=== PATIENT | female | born 1945 | race Caucasian/White ===

== ENCOUNTER → 2016-10-28 | Outpatient (CLI) | payer MEDICARE ==
[~2016-10-28] MED LIST: AMLO-110 PO; ASPCH81 PO; ASTN; ATEN-173 PO; ATOR-26 PO; CRAN1CAP15 PO; DOCU100T7 PO; HYDC25 PO; LANS30CA12 PO; LEVA1.25 INH; MELO7.5T5 PO; MOME100A INH; MULTCAP42 PO; NYST100098 TOP; NYSTCRE11 TOP; OXGN; PENT400T PO; TRAM-10 PO; TRIA1SPR2 NAE
[2016-10-28 13:10] VITALS: BP_SYST 185; BP_SYST 195; BP_DIAS 66; PULSE 88; TEMP 36.6; O2SAT 98
--- NOTE | 2016-10-28 16:50 | Radiation Oncology Follow-Up ---
Radiation Oncology Follow-Up Date of Visit Oct 28, 2016. 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 Plan for definitive radiation with external beam therapy [place] followed by intracavitary boost at [facility] Status post completion of external beam radiation 07/05/2014 received 4500 cGy Status post completion of intracavitary boost at [facility] Last Edited By: Lois Samayoa on Oct 28, 2016 16:50 Interim History She's been doing well over the past 6 months. She denies any vaginal discharge or bleeding. She is not developed any abdominal pain or discomfort. She's had no change in urination or bowel habits. At our request she did see Dr. Aguirre and begin gynecologic follow-up. In [place]. She was seen 06/25. Examination revealed no lesions or recurrence. She had a Pap smear that was negative for intraepithelial lesions or malignancy. Specimen [id number]. Allergies Coded Allergies: Doxycycline (Verified Allergy, Intermediate, SWELLING, 11/10/15) Codeine (Verified Allergy, Mild, PER PATIENT "MADE HER MARY ANNE CRAZY" WHEN SHE TOOK ALOT, 11/10/15) Sulfa Drugs (Verified Allergy, Mild, 11/10/15) Tetracycline (Verified Allergy, Mild, SWELLING TO EYES, 11/10/15) NARINDER Inhibitors (Unverified Adverse Reaction, Intermediate, cough, 11/10/15) Home Medications Scheduled Amlodipine (Norvasc), 5 MG PO QAM Aspirin (Aspirin Tab-Chewable *), 81 MG PO QPM Atenolol (Tenormin), 25 MG PO DAILY Atorvastatin (Lipitor), 80 MG PO DAILY Azelastine Hcl (Astelin Nasal Petal), 1-2 SPRAYS NA BID Cranberry-Vitamin C-Vitamin E (Cranberry), 1 CAP PO DAILY Docusate Sodium (Stool Softener), 100 MG PO DAILY Hydrochlorothiazide (Hctz *), 25 MG PO QAM Lansoprazole (Prevacid), 30 MG PO BID Multiple Vitamin (Multivitamins), 1 CAP PO DAILY Oxygen (Oxygen), 2 LITERS NA HS Pentoxifylline (Trental), 400 MG PO TID Scheduled PRN Levalbuterol Soln (Xopenex 1.25MG/3ML), 1.25 MG INH QID PRN for SOB/Wheezing Meloxicam (Mobic), 15 MG PO DAILY PRN for Pain Mometasone Furoate-Formoterol (Dulera 100/5 Mcg), 2 PUFFS INH BID PRN for SOB/ Wheezing Nystatin (Mycostatin), 1 APPLN TOP BID PRN for Affected Skin Folds Nystatin/Triamcinolone (Mycogen || ), 1 APPLN TOP TID PRN for Affected Skin Folds Tramadol (Ultram), 50 MG PO Q6H PRN for Pain Triamcinolone Acetonide (Nasal (Nasacort-Aq Nasal Inh), 2 SPRAYS FARSHAD BID PRN for Nasal Congestion Review of Systems Gastrointestinal: Symptoms: WNL GI Comments: IBS so BM consistency varies every day- no change since having RT Oral: Symptoms: No Problems Respiratory: Symptoms: SOB With Exertion Other Respiratory: Pt with known asthma and certain things can trigger cough ; Urinary: Symptoms: Nocturia Comments: Sometimes abld to go longer than 2hrs betw'n voids;3-4 voids/night ; Skin: Symptoms: No Problems Physical Exam Vital Signs Date Time Temp Pulse Resp B/P Pulse Ox O2 Delivery O2 Flow Rate FiO2 10/28/16 13:10 36.6 88 20 195/66 98 185/66 Fatigue: None General Appearance: no apparent distress, + obese Eyes: normal inspection, EOMI ENT: normal ENT inspection, hearing grossly normal Neck: no adenopathy, thyroid normal Respiratory/Chest: lungs clear, no respiratory distress, no accessory muscle use Cardiovascular: regular rate, rhythm, no gallop, no murmur Abdomen: non tender, soft, no organomegaly Genitourinary - Female: Normal external genitalia. Vaginal examination reveals no masses or lesions. There is no vaginal discharge. No vaginal bleeding. Bimanual examination cannot be performed due to the large body habitus and panniculus. There are no palpable lesions on vaginal examination. Extremities: + pedal edema Neurologic/Psychiatric: no motor/sensory deficits, alert, normal mood/affect Skin: warm/dry Lymphatic: no adenopathy Additional Studies Pap smear performed on 06/25/2016 was negative for intraepithelial lesion or malignancy. Assessment & Plan Plan: Continue regular follow-up with Dr. Aguirre she has a follow-up appointment with him in January. We asked her to return to our office in 1 year. She may call if she has any questions or concerns we'll be happy to see her. Total Time In Follow-Up I spent 20 minutes speaking to the patient performing examination. I spent 15 minutes reviewing information in completing this note. Copy To Roby Aguirre M.D.; Pavan Mckeon M.D.
== END | disposition home or self-care (01) ==
LOC: C.ONC 13:03
PROVIDERS: ATTEND Radiology Radiation Oncology
DX: Z08 Encounter for follow-up examination after completed treatment for malignant neoplasm (principal); Z92.3 Personal history of irradiation; Z85.42 Personal history of malignant neoplasm of other parts of uterus

== ENCOUNTER 2017-12-16 15:18 | Inpatient (IN) | payer MEDICARE, OTHER ==
[~2017-12-16] VITALS: Ht 160 cm; Wt 152.4 kg
[~2017-12-16 15:18] MED LIST changes: -ASTN; +ASTN NAE; -ATOR-26 PO; -MOME100A INH; -OXGN
[2017-12-16] MEDS ORDERED: OXGN (15:34)
[2017-12-16] MEDS ORDERED: ALBUT/IPRATROP 3MG/0.5MG NEB 3 ML VIAL INH STA (15:36)
[2017-12-16] MEDS ORDERED: ALBUTEROL 0.5% NEB SOLN 2.5 MG/0.5 ML VIAL INH STA (15:40)
[2017-12-16] MEDS ORDERED: SODIUM CHLORIDE 0.9% 500ML 500 ML IV STA (15:40)
[2017-12-16 16:04] LABS: BASO % 0.2 %; BASO ABS # 0.02 K/uL (0-0.2); EOS % 0.2 %; EOS ABS # 0.02 K/uL (0-0.5); HEMATOCRIT 40.6 % (37-47); HEMOGLOBIN 12.9 g/dL (12.0-16.0); IG# 0.05 K/uL (0.00-0.02); LYMPH % 13.7 %; LYMPH ABS # 1.74 K/uL (1.2-3.4); MEAN CELL VOLUME 87.7 fL (80-100); MEAN CORPUSCULAR HEMOGLOBIN 27.9 pg (25-34); MEAN CORPUSCULAR HGB CONC 31.8 g/dl (32-36); MEAN PLATELET VOLUME 9.3 fL (7.4-10.4); MONO ABS # 1.02 K/uL (0.11-0.59); NEUT % 77.5 %; NEUT ABS # 9.86 K/uL (1.4-6.5); PLATELET COUNT 306 K/uL (130-400); RED CELL DISTRIBUTION WIDTH CV 15.6 % (11.5-14.5); WHITE BLOOD COUNT 12.71 K/uL (4.8-10.8)
[2017-12-16 16:14] LABS: PTT PATIENT 24.4 SECONDS (21.0-31.0)
--- NOTE | 2017-12-16 16:22 | DIAGNOSTIC IMAGING REPORT ---
CHEST ONE VIEW PORTABLE CLINICAL HISTORY: 72 years-old Female presenting with sob . TECHNIQUE: Portable upright AP view of the chest was obtained. COMPARISON: 04/05/2014. FINDINGS: Atherosclerosis of aortic arch. Cardiac silhouette enlarged. Mild pulmonary vascular prominence. Mildly low lung volumes with hypoventilatory changes. No focal opacity. No large effusion or pneumothorax. Deformity of the right humeral neck ingested. IMPRESSION: 1. Cardiomegaly with possible volume overload. No loraine pulmonary edema. 2. Mildly low lung volumes. 3. Deformity of the left humerus likely indicates fracture, which is chronic. Electronically signed by: Tomer Man M.D. 12/16/2017 4:21 PM Dictated Date/Time: 12/16/2017 4:20 PM
[2017-12-16 16:35] LABS: ALBUMIN 3.3 gm/dl (3.4-5.0); ALT/SGPT 23 U/L (12-78); AST/SGOT 14 U/L (15-37); BLOOD UREA NITROGEN 19 mg/dl (7-18); CALCIUM 9.8 mg/dl (8.5-10.1); CARBON DIOXIDE 32 mmol/L (21-32); CREATININE 0.82 mg/dl (0.60-1.20); GLUCOSE 141 mg/dl (70-99); POTASSIUM 3.3 mmol/L (3.5-5.1); SODIUM 137 mmol/L (136-145)
[2017-12-16] MEDS ORDERED: TRN400 PO (16:39)
[2017-12-16] MEDS ORDERED: LANS30CA63 PO (16:39)
[2017-12-16] MEDS ORDERED: HYDR25TA5 PO (16:39)
[2017-12-16] MEDS ORDERED: NRV/5 PO (16:39)
[2017-12-16] MEDS ORDERED: LEVO1TAB33 PO (16:39)
[2017-12-16] MEDS ORDERED: PRED10TA PO (16:39)
[2017-12-16] MEDS ORDERED: CZR25 PO (16:39)
[2017-12-16] MEDS ORDERED: ASPI81TA28 PO (16:39)
[2017-12-16 16:40] LABS: ALKALINE PHOSPHATASE 137 U/L (45-117); TOTAL PROTEIN 7.2 gm/dl (6.4-8.2)
[2017-12-16] MEDS ORDERED: MULTTAB58 PO (16:41)
[2017-12-16] MEDS ORDERED: CRAN500C2 PO (16:41)
[2017-12-16] MEDS ORDERED: XPNINS NEB (16:57)
[2017-12-16] MEDS ORDERED: TRIA1SPR4 NAE (16:57)
[2017-12-16] MEDS ORDERED: NYST100033 TOP (16:57)
[2017-12-16] MEDS ORDERED: ALBUTEROL 0.083% NEBU SOLN 3 ML VIAL INH STA (17:28)
[2017-12-16] MEDS ORDERED: MAGNESIUM HYDROXIDE SUSP 30 ML UDC PO PRN (18:15)
[2017-12-16] MEDS ORDERED: NYSTATIN/TRIAMCINOLONE CR 15 GM TUBE EXT PRN (18:15)
[2017-12-16] MEDS ORDERED: ONDANSETRON INJ 2 MG/ML 2 ML VIAL IV PRN (18:15)
[2017-12-16] MEDS ORDERED: TRIAMCINOLONE ACET NASAL SPRAY 10.8ML BTL NAE PRN (18:15)
[2017-12-16] MEDS ORDERED: ALUMINUM/MAGNESIUM/SIMETH (MAALOX MAX) 30 ML UDC PO PRN (18:15)
[2017-12-16] MEDS ORDERED: ACETAMINOPHEN 325 MG TAB PO PRN (18:15)
[2017-12-16] MEDS ORDERED: NYSTATIN POWDER 15GM BTL EXT PRN (18:15)
[2017-12-16] MEDS ORDERED: GLUCOSE 40% GEL 15 GM TUBE PO PRN (18:30)
[2017-12-16] MEDS ORDERED: DEXTROSE 50% 50 ML SYR IV PRN (18:30)
[2017-12-16] MEDS ORDERED: GLUCAGON FOR INJ 1 MG VIAL SQ PRN (18:30)
[2017-12-16] MEDS ORDERED: GLUCOSE 10 TABS/TUBE PO PRN (18:30)
--- NOTE | 2017-12-16 18:52 | DIAGNOSTIC IMAGING REPORT ---
ABDOMEN 2 VIEWS CLINICAL HISTORY: 72 years-old Female presenting with abd pain . TECHNIQUE: Upright and supine views of the abdomen were obtained. COMPARISON: None. FINDINGS: Image quality limited by patient body habitus. Possibly of small bowel gas, nonspecific no gross evidence of bowel obstruction. No gross pneumoperitoneum. Multiple radiopaque sutures project over the right upper quadrant. Possible punctate calcification projects over the lower pole the left kidney. 2 fiducial markers project over the pelvis. Multiple pelvic phleboliths. Osteopenia suspected. Degenerative changes and scoliosis of the spine. Lung bases poorly evaluated due to body habitus. IMPRESSION: 1. Diagnostic sensitivity is limited by image quality secondary to patient body habitus. 2. Allowing for this, no gross evidence of bowel obstruction or free gas. 3. Suspected left renal calculus. Electronically signed by: Tomer Man M.D. 12/16/2017 6:50 PM Dictated Date/Time: 12/16/2017 6:48 PM
[2017-12-16] MEDS ORDERED: RANITIDINE HCL 150 MG TAB PO ONE (19:00)
--- NOTE | 2017-12-16 19:07 | History and Physical ---
History & Physical Date & Time of Service: Dec 16, 2017 at 18:24 Chief Complaint: Bronchitis Primary Care Physician: Pavan Mckeon M.D. History of Present Illness Source: patient, family, clinic records, hospital records This is a 72 year old female with PMH of morbid obesity, on 2L of nocturnal O2, HTN, HLD, DM2; hx. of DVT and PE in 2010; no longer on anticoagulation, significant reflux, hx. of upper esophageal web and gastric polyps - presents with worsening productive cough/shortness of breath. Was seen in [facility] for this issue and was given a Z-ronna at the end of November. She was then seen again by the outpatient clinic on December 14 and was given Levaquin and prednisone; stated that her breathing did not improve and her cough worsened. Associated with the cough is nausea/vomiting. She states that she feels during her coughing fits, she gets nauseous. Also c/o her reflux getting worse. She cannot lay down flat because of her reflux and usually sleeps elevated with multiple pillows. She states that she regurgitated undigested food on Wednesday ; she believes it was food that she ate on Wednesday. Currently feels really weak, cough persists. Past Medical/Surgical History Medical Problems: (1) Bronchitis (2) Chest pain (3) Chronic GERD (4) Chronic Sinusitis Nos (5) Diverticulosis Colon (W/O Ment Of Hemorrhage) (6) Dysthymic Disorder (7) Esophageal Reflux (8) Fracture of humeral head, right, closed (9) GERD (gastroesophageal reflux disease) (10) Hypoxemia (11) Malignant neoplasm of other specified sites of body of uterus (12) Morbid Obesity (13) Non-cardiac chest pain (14) Obstructive Sleep Apnea (Adult) (Pediatric) (15) Oth Pulmon Embolism/Infarct (16) Pulmonary embolism (17) Vaginal bleeding (18) Vaginal bleeding (19) Vaginal bleeding Family History Hypertension Social History Smoking Status: Never Smoker Drug Use: none Marital Status: Occupational Status: unemployed Immunizations History of Influenza Vaccine: N/A Influenza Vaccine Date: May 14, 2010 History of Tetanus Vaccine?: Yes Tetanus Immunization Date: Apr 02, 2000 History of Pneumococcal: Yes Pneumococcal Date: Aug 08, 2002 History of Hepatitis B Vaccine: No Allergies Coded Allergies: Doxycycline (Verified Allergy, Intermediate, SWELLING, 12/16/17) Codeine (Verified Allergy, Mild, PER PATIENT "MADE HER MARY ANNE CRAZY" WHEN SHE TOOK ALOT, 12/16/17) Sulfa Drugs (Verified Allergy, Mild, 12/16/17) Tetracycline (Verified Allergy, Mild, SWELLING TO EYES, 12/16/17) NARINDER Inhibitors (Unverified Adverse Reaction, Intermediate, cough, 12/16/17) Home Medications Scheduled Amlodipine Besylate (Amlodipine Besylate), 5 MG PO DAILY Aspirin (Aspirin Ec), 81 MG PO QPM Atorvastatin (Lipitor), 80 MG PO DAILY Cranberry (Vaccinium Macrocarp (Cranberry), 1 CAP PO DAILY Docusate Sodium (Stool Softener), 100 MG PO DAILY Home O2 Therapy (Oxygen), 2 LITERS NA HS Hydrochlorothiazide (Hydrochlorothiazide), 25 MG PO DAILY Lansoprazole (Prevacid), 30 MG PO BID Levofloxacin (Levaquin), 500 MG PO DAILY Losartan Potassium (Losartan Potassium), 25 MG PO DAILY Multiple Vitamin (Multivitamin), 1 TAB PO DAILY Pentoxifylline (Pentoxifylline ER), 400 MG PO PC Prednisone (Prednisone), 10 MG PO UD Scheduled PRN Azelastine Hcl (Astelin Nasal [place]), 1-22 SPRAYS FARSHAD BID PRN for Nasal Congestion Levalbuterol (Levalbuterol HCl), 0.63 MG NEB Q8 PRN for Wheezing Mometasone Furoate-Formoterol (Dulera 100/5 Mcg), 2 PUFFS INH BID PRN for SOB/ Wheezing Nystatin (Topical) (Nystatin), 1 APPLN TOP BID PRN for Yeast Infection Nystatin/Triamcinolone (Mycogen || ), 1 APPLN TOP UD PRN for Yeast Infection Triamcinolone Acetonide (Nasal (Nasacort Allergy 24Hr), 2 SPRAYS FARSHAD BID PRN for Allergy Symptoms Review of Systems Constitutional: + weakness, + fatigue, No fever, No chills Eyes: No worsening of vision ENT: No hearing loss Respiratory: + cough, + sputum, + wheezing, + shortness of breath, + dyspnea on exertion, No dyspnea at rest, No hemoptysis Cardiovascular: No chest pain, No orthopnea, No edema, No palpitations Abdomen: + nausea, + vomiting, + problem reported (reflux-symptoms), No pain, No diarrhea, No constipation, No GI bleeding Musculoskeletal: No joint pain, No muscle pain Genitourinary - Female: No dysuria, No urinary frequency, No urinary urgency, No urinary incontinence, No urinary retention, No hematuria Neurologic: + weakness, No numbness/tingling, No vertigo, No balance problems Psychiatric: No depression symptoms, No anxiety, No insomnia Hematologic / Lymphatic: No abnormal bleeding/bruising Integumentary: No rash Allergic / Immunologic: No environmental allergies, No seasonal allergies Physical Exam Vital Signs Date Time Temp Pulse Resp B/P (MAP) Pulse Ox O2 Delivery O2 Flow Rate FiO2 12/16/17 18:20 107 16 135/77 94 Nasal Cannula 2.0 12/16/17 17:54 88 Room Air 12/16/17 17:30 24 89 Room Air 12/16/17 16:55 117 12/16/17 16:36 106 20 139/59 97 Nasal Cannula 2.0 12/16/17 16:36 96 Nasal Cannula 2.0 12/16/17 16:20 89 Room Air 12/16/17 15:53 Room Air 12/16/17 15:47 Room Air 12/16/17 15:23 36.8 112 22 123/62 91 Room Air General Appearance: + mild distress (secondary to cough), + obese Head: normocephalic, atraumatic Eyes: normal inspection ENT: hearing grossly normal Respiratory/Chest: no respiratory distress, no accessory muscle use, + wheezing (sonorous breath sounds on expiration diffusely) Cardiovascular: no edema, no murmur, + tachycardia Abdomen/GI: normal bowel sounds, non tender, soft Extremities/Musculoskelatal: normal inspection, no calf tenderness, normal capillary refill, no pedal edema, normal range of motion Neurologic/Psych: [employer] member other ranks II-XII nml as tested, no motor/sensory deficits, alert, normal mood/affect, oriented x 3 Skin: normal color Lymphatic: no adenopathy Diagnostics Laboratory Results Results Past 24 Hours Test 12/16/17 15:50 Range/Units White Blood Count 12.71 4.8-10.8 K/uL Red Blood Count 4.63 4.2-5.4 M/uL Hemoglobin 12.9 12.0-16.0 g/dL Hematocrit 40.6 37-47 % Mean Corpuscular Volume 87.7 80-100 fL Mean Corpuscular Hemoglobin 27.9 25-34 pg Mean Corpuscular Hemoglobin Concent 31.8 32-36 g/dl Platelet Count 306 130-400 K/uL Mean Platelet Volume 9.3 7.4-10.4 fL Neutrophils (%) (Auto) 77.5 % Lymphocytes (%) (Auto) 13.7 % Monocytes (%) (Auto) 8.0 % Eosinophils (%) (Auto) 0.2 % Basophils (%) (Auto) 0.2 % Neutrophils # (Auto) 9.86 1.4-6.5 K/uL Lymphocytes # (Auto) 1.74 1.2-3.4 K/uL Monocytes # (Auto) 1.02 0.11-0.59 K/uL Eosinophils # (Auto) 0.02 0-0.5 K/uL Basophils # (Auto) 0.02 0-0.2 K/uL RDW Standard Deviation 50.0 36.4-46.3 fL RDW Coefficient of Variation 15.6 11.5-14.5 % Immature Granulocyte % (Auto) 0.4 % Immature Granulocyte # (Auto) 0.05 0.00-0.02 K/uL Prothrombin Time 10.7 9.0-12.0 SECONDS Prothromb Time International Ratio 1.0 0.9-1.1 Activated Partial Thromboplast Time 24.4 21.0-31.0 SECONDS Partial Thromboplastin Ratio 0.9 Sodium Level 137 136-145 mmol/L Potassium Level 3.3 3.5-5.1 mmol/L Chloride Level 98 98-107 mmol/L Carbon Dioxide Level 32 21-32 mmol/L Anion Gap 7.0 3-11 mmol/L Blood Urea Nitrogen 19 7-18 mg/dl Creatinine 0.82 0.60-1.20 mg/dl Est Creatinine Clear Calc Drug Dose 94.4 ml/min Estimated GFR () 83.4 Estimated GFR (Non- 72.0 BUN/Creatinine Ratio 22.9 10-20 Random Glucose 141 70-99 mg/dl Calcium Level 9.8 8.5-10.1 mg/dl Total Bilirubin 0.6 0.2-1 mg/dl Aspartate Amino Transf (AST/SGOT) 14 15-37 U/L Alanine Aminotransferase (ALT/SGPT) 23 12-78 U/L Alkaline Phosphatase 137 45-117 U/L Troponin I < 0.015 0-0.045 ng/ml Pro-B-Type Natriuretic Peptide 127 0-900 pg/ml Total Protein 7.2 6.4-8.2 gm/dl Albumin 3.3 3.4-5.0 gm/dl Globulin 3.9 2.5-4.0 gm/dl Albumin/Globulin Ratio 0.8 0.9-2 Diagnostic Radiology CHEST ONE VIEW PORTABLE CLINICAL HISTORY: 72 years-old Female presenting with sob . TECHNIQUE: Portable upright AP view of the chest was obtained. COMPARISON: 04/05/2014. FINDINGS: Atherosclerosis of aortic arch. Cardiac silhouette enlarged. Mild pulmonary vascular prominence. Mildly low lung volumes with hypoventilatory changes. No focal opacity. No large effusion or pneumothorax. Deformity of the right humeral neck ingested. IMPRESSION: 1. Cardiomegaly with possible volume overload. No loraine pulmonary edema. 2. Mildly low lung volumes. 3. Deformity of the left humerus likely indicates fracture, which is chronic. EKG Normal sinus rhythm Cannot rule out Anterior infarct Impression Assessment and Plan This is a 72 year old female with PMH of morbid obesity, on 2L of nocturnal O2, HTN, HLD, DM2; hx. of DVT and PE in 2010; no longer on anticoagulation, significant reflux, hx. of upper esophageal web and gastric polyps - presents with worsening productive cough/shortness of breath. Acute Complicated Bronchitis Acute Asthma Exacerbation - 2-3 week history of productive cough - CXR does not suggest pneumonia - patient has been on a Z-ronna with no help - has had one dose of Levaquin and prednisone - we can increase the prednisone to 50mg daily for now - will continue Levaquin - Xopenex nebulizers due to tachycardia - Dulera inhalers as outpatient - added Mucinex Post-Tussive Emesis Severe GERD - patient with significant reflux - will continue Prevacid 30mg BID (outpatient dose) - added Zantac 150mg BID - recliner chair ordered - has had an upper esophageal web; history suggests vomiting undigested food - may need outpatient EGD after bronchitis symptoms improve Hx. of DVT/PE - productive cough suggestive of bronchitis vs. pneumonia - if symptoms do not improve, consider CT chest to r/o PE DM2 - insulin sliding scale - Ha1c < 6.0%; due to prednisone use, will use the sliding scale and BSGs ACHS HTN - blood pressure stable - continue Cozaar, can continue HCTZ on discharge or inpatient if blood pressure goes up DVT ppx - subq heparin FULL CODE Resuscitation Status VTE Prophylaxis Will order VTE Prophylaxis: Yes
[2017-12-16 19:30] VITALS: BP 154/68; PULSE 80; TEMP 36.7; O2SAT 94; BMI 62.1
[2017-12-16] MEDS ORDERED: POTASSIUM CHLR 10 MEQ / WTR 10 MEQ in PREMIXED WATER 100 ML IV STA (19:42)
[2017-12-16 19:46] VITALS: BP 154/68; TEMP 36.7; O2SAT 92
[2017-12-16] MEDS: LEVALBUTEROL 0.63MG/3 ML NEB INH SCH (20:14)
[2017-12-16 20:16] VITALS: PULSE 102; O2SAT 97
[2017-12-16] MEDS ORDERED: MOME100A INH (20:21)
[2017-12-16] MEDS ORDERED: ATOR-26 PO (20:21)
[2017-12-16] MEDS: PANTOprazole SOD 40 MG TAB PO SCH (20:29)
[2017-12-16] MEDS: RANITIDINE HCL 150 MG TAB PO SCH (20:30)
[2017-12-16] MEDS: GUAIFENESIN 600 MG TABCR PO SCH (20:31)
[2017-12-16] MEDS: ASPIRIN 81 MG ECTAB PO SCH (20:32)
[2017-12-16] MEDS: INSULIN ASPART 100 UNITS/ML 3 ML PEN SC SCH (21:37)
[2017-12-16] MEDS: HEPARIN SOD 5000 UNIT/0.5 ML CARP SQ SCH (22:14)
[2017-12-16] MEDS: LEVOFLOXACIN / D5W 500 MG in PREMIXED IN D5W 100 ML IV SCH (22:14)
--- NOTE | 2017-12-16 22:18 | EMERGENCY ROOM VISIT NOTE ---
History Report prepared by Angel: Gerald Boateng Under the Supervision of: Dr. Servando Magaña D.O. First contact with patient: 15:27 Chief Complaint: RESPIRATORY PROBLEMS Stated Complaint: BRONCHITIS History of Present Illness The patient is a 72 year old female who presents to the Emergency Room with complaints of a persistent cough that started 3 weeks ago. She states that the cough is sometimes productive. The patient says that she has been to her doctor twice for this, and has been put on Levaquin, Prednisone, and an inhaler. She notes that she started having right-sided abdominal pain after a severe bout of coughing 3 nights ago. The patient states that the pain is brought on by bending , and other movement. She notes that she is having pain right now bending as she is sitting up on the side of the bed. The patient adds that she has had intermittent shortness of breath. She says that her last regular bowel movement was 4 days ago, and since then she has only had a little come out 2 days ago. The patient denies any fevers, chest pain, or pain or burning with urination. The patient notes a history of asthma only brought on by odors. She notes no history of COPD. Source of History: patient Onset: 3 weeks ago Position: other (global) Symptom Intensity: sometimes productive Quality: other (cough) Associated Symptoms: + SOB, + abdominal pain (right), No fevers, No chest pain, No urinary symptoms Note: Associated symptoms: No regular bowel movement for 4 days. Review of Systems See HPI for pertinent positives & negatives. A total of 10 systems reviewed and were otherwise negative. Past Medical & Surgical Medical Problems: (1) Bronchitis (2) Chronic GERD (3) Chronic Sinusitis Nos (4) Diverticulosis Colon (W/O Ment Of Hemorrhage) (5) Dysthymic Disorder (6) Esophageal Reflux (7) Malignant neoplasm of other specified sites of body of uterus (8) Morbid Obesity (9) Obstructive Sleep Apnea (Adult) (Pediatric) (10) Oth Pulmon Embolism/Infarct Family History Hypertension Social History Smoking Status: Never Smoker Alcohol Use: none Drug Use: none Marital Status: Housing Status: lives with family Occupation Status: unemployed Current/Historical Medications Scheduled Amlodipine Besylate (Amlodipine Besylate), 5 MG PO DAILY Aspirin (Aspirin Ec), 81 MG PO QPM Atorvastatin (Lipitor), 80 MG PO DAILY Cranberry (Vaccinium Macrocarp (Cranberry), 1 CAP PO DAILY Docusate Sodium (Stool Softener), 100 MG PO DAILY Home O2 Therapy (Oxygen), 2 LITERS NA HS Hydrochlorothiazide (Hydrochlorothiazide), 25 MG PO DAILY Lansoprazole (Prevacid), 30 MG PO BID Levofloxacin (Levaquin), 500 MG PO DAILY Losartan Potassium (Losartan Potassium), 25 MG PO DAILY Multiple Vitamin (Multivitamin), 1 TAB PO DAILY Pentoxifylline (Pentoxifylline ER), 400 MG PO PC Prednisone (Prednisone), 10 MG PO UD Scheduled PRN Azelastine Hcl (Astelin Nasal [place]), 1-22 SPRAYS FARSHAD BID PRN for Nasal Congestion Levalbuterol (Levalbuterol HCl), 0.63 MG NEB Q8 PRN for Wheezing Mometasone Furoate-Formoterol (Dulera 100/5 Mcg), 2 PUFFS INH BID PRN for SOB/ Wheezing Nystatin (Topical) (Nystatin), 1 APPLN TOP BID PRN for Yeast Infection Nystatin/Triamcinolone (Mycogen || ), 1 APPLN TOP UD PRN for Yeast Infection Triamcinolone Acetonide (Nasal (Nasacort Allergy 24Hr), 2 SPRAYS FARSHAD BID PRN for Allergy Symptoms Allergies Coded Allergies: Doxycycline (Verified Allergy, Intermediate, SWELLING, 12/16/17) Codeine (Verified Allergy, Mild, PER PATIENT "MADE HER MARY ANNE CRAZY" WHEN SHE TOOK ALOT, 12/16/17) Sulfa Drugs (Verified Allergy, Mild, 12/16/17) Tetracycline (Verified Allergy, Mild, SWELLING TO EYES, 12/16/17) NARINDER Inhibitors (Unverified Adverse Reaction, Intermediate, cough, 12/16/17) Physical Exam Vital Signs Date Time Temp Pulse Resp B/P (MAP) Pulse Ox O2 Delivery O2 Flow Rate FiO2 12/16/17 17:54 88 Room Air 12/16/17 17:30 24 89 Room Air 12/16/17 16:55 117 12/16/17 16:36 106 20 139/59 97 Nasal Cannula 2.0 12/16/17 16:36 96 Nasal Cannula 2.0 12/16/17 16:20 89 Room Air 12/16/17 15:53 Room Air 4/5/18 15:47 Room Air 12/16/17 15:23 36.8 112 22 123/62 91 Room Air Physical Exam GENERAL: Morbidly obese, sitting up in bed, dyspneic with conversation EYE EXAM: normal conjunctiva. OROPHARYNX: no exudate, no erythema, lips, buccal mucosa, and tongue normal and mucous membranes are moist NECK: supple, no nuchal rigidity, no adenopathy, non-tender, no appreciable JVD LUNGS: Diffuse wheezing bilaterally. Normal chest wall mechanics. HEART: distant and tachycardic, no murmurs, S1 normal and S2 normal ABDOMEN: extensive pannus, non-tender, normo-active bowel sounds, no masses, no rebound or guarding. BACK: Back is symmetrical on inspection and there is no deformity, no midline tenderness, no CVA tenderness. SKIN: no rashes and no bruising UPPER EXTREMITIES: upper extremities are grossly normal. LOWER EXTREMITIES: No pitting edema. NEURO EXAM: Normal sensorium, cranial nerves II-XII grossly intact, normal speech, no gross weakness of arms, no gross weakness of legs. Medical Decision & Procedures ER Provider Diagnostic Interpretation: X-ray results as stated below per my review and the radiologist's interpretation : CHEST ONE VIEW PORTABLE CLINICAL HISTORY: 72 years-old Female presenting with sob . TECHNIQUE: Portable upright AP view of the chest was obtained. COMPARISON: 04/05/2014. FINDINGS: Atherosclerosis of aortic arch. Cardiac silhouette enlarged. Mild pulmonary vascular prominence. Mildly low lung volumes with hypoventilatory changes. No focal opacity. No large effusion or pneumothorax. Deformity of the right humeral neck ingested. IMPRESSION: 1. Cardiomegaly with possible volume overload. No loraine pulmonary edema. 2. Mildly low lung volumes. 3. Deformity of the left humerus likely indicates fracture, which is chronic. Electronically signed by: Tomer Man M.D. 12/16/2017 4:21 PM Dictated Date/Time: 12/16/2017 4:20 PM ABDOMEN 2 VIEWS CLINICAL HISTORY: 72 years-old Female presenting with abd pain . TECHNIQUE: Upright and supine views of the abdomen were obtained. COMPARISON: None. FINDINGS: Image quality limited by patient body habitus. Possibly of small bowel gas, nonspecific no gross evidence of bowel obstruction. No gross pneumoperitoneum. Multiple radiopaque sutures project over the right upper quadrant. Possible punctate calcification projects over the lower pole the left kidney. 2 fiducial markers project over the pelvis. Multiple pelvic phleboliths. Osteopenia suspected. Degenerative changes and scoliosis of the spine. Lung bases poorly evaluated due to body habitus. IMPRESSION: 1. Diagnostic sensitivity is limited by image quality secondary to patient body habitus. 2. Allowing for this, no gross evidence of bowel obstruction or free gas. 3. Suspected left renal calculus. Electronically signed by: Tomer Man M.D. 12/16/2017 6:50 PM Dictated Date/Time: 12/16/2017 6:48 PM Laboratory Results 12/16/17 15:50 Red Blood Count 4.63, Mean Corpuscular Volume 87.7, Mean Corpuscular Hemoglobin 27.9, Mean Corpuscular Hemoglobin Concent 31.8, Mean Platelet Volume 9.3, Neutrophils (%) (Auto) 77.5, Lymphocytes (%) (Auto) 13.7, Monocytes (%) (Auto) 8.0, Eosinophils (%) (Auto) 0.2, Basophils (%) (Auto) 0.2, Neutrophils # (Auto) 9.86, Lymphocytes # (Auto) 1.74, Monocytes # (Auto) 1.02, Eosinophils # (Auto) 0.02, Basophils # (Auto) 0.02 12/16/17 15:50 Test 12/16/17 15:50 White Blood Count 12.71 K/uL (4.8-10.8) Red Blood Count 4.63 M/uL (4.2-5.4) Hemoglobin 12.9 g/dL (12.0-16.0) Hematocrit 40.6 % (37-47) Mean Corpuscular Volume 87.7 fL (80-100) Mean Corpuscular Hemoglobin 27.9 pg (25-34) Mean Corpuscular Hemoglobin Concent 31.8 g/dl (32-36) Platelet Count 306 K/uL (130-400) Mean Platelet Volume 9.3 fL (7.4-10.4) Neutrophils (%) (Auto) 77.5 % Lymphocytes (%) (Auto) 13.7 % Monocytes (%) (Auto) 8.0 % Eosinophils (%) (Auto) 0.2 % Basophils (%) (Auto) 0.2 % Neutrophils # (Auto) 9.86 K/uL (1.4-6.5) Lymphocytes # (Auto) 1.74 K/uL (1.2-3.4) Monocytes # (Auto) 1.02 K/uL (0.11-0.59) Eosinophils # (Auto) 0.02 K/uL (0-0.5) Basophils # (Auto) 0.02 K/uL (0-0.2) RDW Standard Deviation 50.0 fL (36.4-46.3) RDW Coefficient of Variation 15.6 % (11.5-14.5) Immature Granulocyte % (Auto) 0.4 % Immature Granulocyte # (Auto) 0.05 K/uL (0.00-0.02) Prothrombin Time 10.7 SECONDS (9.0-12.0) Prothromb Time International Ratio 1.0 (0.9-1.1) Activated Partial Thromboplast Time 24.4 SECONDS (21.0-31.0) Partial Thromboplastin Ratio 0.9 Anion Gap 7.0 mmol/L (3-11) Est Creatinine Clear Calc Drug Dose 94.4 ml/min Estimated GFR () 83.4 Estimated GFR (Non- 72.0 BUN/Creatinine Ratio 22.9 (10-20) Calcium Level 9.8 mg/dl (8.5-10.1) Total Bilirubin 0.6 mg/dl (0.2-1) Aspartate Amino Transf (AST/SGOT) 14 U/L (15-37) Alanine Aminotransferase (ALT/SGPT) 23 U/L (12-78) Alkaline Phosphatase 137 U/L (45-117) Troponin I < 0.015 ng/ml (0-0.045) Pro-B-Type Natriuretic Peptide 127 pg/ml (0-900) Total Protein 7.2 gm/dl (6.4-8.2) Albumin 3.3 gm/dl (3.4-5.0) Globulin 3.9 gm/dl (2.5-4.0) Albumin/Globulin Ratio 0.8 (0.9-2) Laboratory results per my review. Medications Administered Medications (Trade) Dose Ordered Sig/Michelle Route Start Time Stop Time Status Last Admin Dose Admin Albuterol/ Ipratropium (Duoneb) 3 ml NOW STAT INH 12/16/17 15:36 12/16/17 15:39 DC 12/16/17 15:57 3 ML Sodium Chloride 500 ml @ 999 mls/hr Q31M STAT IV 12/16/17 15:40 12/16/17 16:10 DC 12/16/17 15:57 999 MLS/HR Albuterol Sulfate (Ventolin 0.083% 2.5MG/3ML Neb) 2.5 mg NOW STAT INH 12/16/17 17:28 12/16/17 17:30 DC 12/16/17 18:10 2.5 MG ECG Per My Interpretation Indication: SOB/dyspnea Rate (beats per minute): 88 Rhythm: sinus rhythm Findings: other (poor baseline, late R-wave progression, no PVCs) ED Course ED COURSE: Vital signs were reviewed and showed tachycardic vitals. The patients medical record was reviewed The above diagnostic studies were performed and reviewed. ED treatments and interventions as stated above. 1528: The patient was evaluated in room A2. A complete history and physical examination was performed. 1536: DuoNeb 3 ml INH. 1540: Ventolin 0.5% 2.5MG/0.5ML Neb 2.5 mg INH, NSS 500 ml @ 999 mls/hr IV. 1728: Ventolin 0.083% 2.5MG/3ML Neb 2.5 mg INH. 1734: I reviewed the patient's case with Dr. Lashanda Smith leaf conditioner. He will evaluate the patient for further management. 1736: Upon reevaluation, the patient is resting.I discussed my findings with the patient and she understands and agrees with the treatment plan. Based on the patients age, coexisting illnesses, exam and lab findings the decision to treat as an inpatient was made. The patient remained stable while under my care. The patient will be evaluated for further management. Medical Decision Differential diagnoses includes but is not limited to pneumonia, bronchitis, COPD/Asthma exacerbation, pneumothorax, pulmonary embolism, congestive heart failure, acute coronary syndrome. Patient is a 72-year-old female who presents the ER for shortness of breath. She notes she has had a cough for the past 3 weeks and been on multiple antibiotics. She also has some abdominal pain which started several days ago following coughing. It is worse with twisting turning and bending. Patient is currently on Levaquin, steroids and inhaler. Does have a history of asthma. Labs show a mild leukocytosis. BMP along with LFTs, bilirubin, troponin and BNP were unremarkable. Chest x-ray and obstruction series are unremarkable. Patient had already taken her dose of Levaquin and steroids. She was given neb treatments did have some improvement. Due to her hypoxia she was discussed with internal medicine for observation overnight. Medication Reconcilliation Current Medication List: was personally reviewed by me Blood Pressure Screening Patient's blood pressure: Normal blood pressure Consults Time Called: 1730 Consulting Physician: Dr. Lashanda Smith leaf conditioner Returned Call: [phone] I reviewed the patient's case with Dr. Lashanda Smith leaf conditioner. He will evaluate the patient for further management. Impression Primary Impression: Bronchitis Additional Impression: Hypoxia Scribe Attestation The scribe's documentation has been prepared under my direction and personally reviewed by me in its entirety. I confirm that the note above accurately reflects all work, treatment, procedures, and medical decision making performed by me. Departure Information Dispostion Being Evaluated By Hospitalist Referrals Pavan Mckeon M.D. (PCP) Patient Instructions My [facility] Problem Qualifiers
[2017-12-16 23:26] VITALS: BP 123/62; PULSE 89; TEMP 36.8; O2SAT 95
[2017-12-17] VITALS (8 sets, daily range): BP systolic 151–163; BP diastolic 60–75; PULSE 78–110; TEMP 36.9; O2SAT 89–97
[2017-12-17] MEDS: LEVALBUTEROL 0.63MG/3 ML NEB INH SCH ×2 (01:59→07:15)
[2017-12-17 05:52] LABS: HEMATOCRIT 39.7 % (37-47); HEMOGLOBIN 12.7 g/dL (12.0-16.0); MEAN CELL VOLUME 87.4 fL (80-100); MEAN PLATELET VOLUME 9.4 fL (7.4-10.4); PLATELET COUNT 293 K/uL (130-400); RED CELL DISTRIBUTION WIDTH CV 15.7 % (11.5-14.5); RED CELL DISTRIBUTION WIDTH SD 50.3 fL (36.4-46.3); WHITE BLOOD COUNT 10.95 K/uL (4.8-10.8)
[2017-12-17 06:24] LABS: CALCIUM 9.5 mg/dl (8.5-10.1); CREATININE 0.72 mg/dl (0.60-1.20); POTASSIUM 3.4 mmol/L (3.5-5.1)
[2017-12-17] MEDS: HEPARIN SOD 5000 UNIT/0.5 ML CARP SQ SCH ×3 (06:25→21:31)
[2017-12-17] MEDS: ATORVASTATIN 40 MG TAB PO SCH (07:44)
[2017-12-17] MEDS: DOCUSATE SODIUM 100 MG CAP PO SCH (07:44)
[2017-12-17] MEDS: AMLODIPINE BESYLATE 5 MG TAB PO SCH (07:45)
[2017-12-17] MEDS: GUAIFENESIN 600 MG TABCR PO SCH ×2 (07:45→19:56)
[2017-12-17] MEDS: PENTOXIFYLLINE 400MG EXT REL TAB PO SCH ×3 (07:45→17:43)
[2017-12-17] MEDS: LOSARTAN POTASSIUM 25 MG TAB PO SCH (07:45)
[2017-12-17] MEDS: MULTIVITAMIN TAB PO SCH (07:45)
[2017-12-17] MEDS: PANTOprazole SOD 40 MG TAB PO SCH ×2 (07:46→19:55)
[2017-12-17] MEDS: RANITIDINE HCL 150 MG TAB PO SCH (07:47)
[2017-12-17] MEDS: INSULIN ASPART 100 UNITS/ML 3 ML PEN SC SCH ×4 (08:51→20:47)
[2017-12-17] MEDS ORDERED: TRAMADOL HCL 50 MG TAB PO PRN (13:15)
[2017-12-17] MEDS ORDERED: GI COCKTAIL PO SCH (13:15)
[2017-12-17] MEDS ORDERED: POLYETHYLENE (MIRALAX) 17 GM PACK PO PRN (13:15)
[2017-12-17] MEDS ORDERED: CALCIUM CARBONATE 500 MG CHEWABLE PO PRN (13:15)
[2017-12-17] MEDS ORDERED: HYDROCHLOROTHIAZIDE 25 MG TAB PO ONE (13:20)
--- NOTE | 2017-12-17 13:23 | Progress Note ---
Medicine Progress Note Date & Time of Visit: Dec 17, 2017 at 13:11. Subjective 72-year-old female with 3 weeks of coughing which is somewhat improved per her report presents with generalized abdominal discomfort after severe coughing episodes at home. She has been on Levaquin, prednisone and an inhaler at home with some improvement. She denies any nausea but states that food just does not taste good. She reports her coughing spells cause nausea took to occur. She also has severe GERD and reports some regurgitation of food with this which is significantly worsened her coughing episodes. She reports her was sick with bronchitis prior to her. He is better at this time. She reports a history of chronic bronchitis yearly in the past but does not carry diagnosis of COPD and does not see a lung specialist. She denies a history of DIDI and is not on CPAP. She would like to try some regular food. She reports being on Robitussin with codeine but not having much. She also feels Robitussin with codeine caused constipation. Objective Last 8 Hrs Date Time Temp Pulse Resp B/P (MAP) Pulse Ox O2 Delivery O2 Flow Rate FiO2 12/17/17 10:51 92 Room Air 12/17/17 10:49 92 Room Air 12/17/17 08:00 90 Nasal Cannula 2.0 12/17/17 08:00 Nasal Cannula 2.0 12/17/17 07:45 36.9 97 16 163/60 (94) 89 Room Air 12/17/17 07:18 78 18 97 Nasal Cannula 2.0 Physical Exam: GEN: obese, in no acute distress, alert and appropriate HEENT: NC/AT, PERRL, normal sclerae, no sinus TTP, no nasal drainage noted, no cervical or SM LAD CARDIO: reg rate, S1/2 heard without m/g/r LUNGS: CTA bilaterally, no crackles, rales or wheezes, good diaphragmatic excursion ABD: soft, mild TTP in periumbiilical area, large pannus, non-distended, no rebound or guarding, +BS EXTREMITY: RP and DP palpable 2+ bilat, no LE swelling or edema, extremities are warm and well-perfused NEURO: CN 2-12 grossly intact MUSC: generalized weakness but no focal deficits. SKIN: warm and dry Laboratory Results: 12/17/17 05:27 12/17/17 05:27 Test 12/16/17 15:50 12/17/17 05:27 12/17/17 06:45 12/17/17 11:52 Immature Granulocyte % (Auto) 0.4 % White Blood Count 12.71 K/uL (4.8-10.8) Red Blood Count 4.63 M/uL (4.2-5.4) 4.54 M/uL (4.2-5.4) Hemoglobin 12.9 g/dL (12.0-16.0) Hematocrit 40.6 % (37-47) Mean Corpuscular Volume 87.7 fL (80-100) 87.4 fL (80-100) Mean Corpuscular Hemoglobin 27.9 pg (25-34) 28.0 pg (25-34) Mean Corpuscular Hemoglobin Concent 31.8 g/dl (32-36) 32.0 g/dl (32-36) Platelet Count 306 K/uL (130-400) Mean Platelet Volume 9.3 fL (7.4-10.4) 9.4 fL (7.4-10.4) Neutrophils (%) (Auto) 77.5 % Lymphocytes (%) (Auto) 13.7 % Monocytes (%) (Auto) 8.0 % Eosinophils (%) (Auto) 0.2 % Basophils (%) (Auto) 0.2 % Neutrophils # (Auto) 9.86 K/uL (1.4-6.5) Lymphocytes # (Auto) 1.74 K/uL (1.2-3.4) Monocytes # (Auto) 1.02 K/uL (0.11-0.59) Eosinophils # (Auto) 0.02 K/uL (0-0.5) Basophils # (Auto) 0.02 K/uL (0-0.2) Immature Granulocyte # (Auto) 0.05 K/uL (0.00-0.02) Prothrombin Time 10.7 SECONDS (9.0-12.0) Prothromb Time International Ratio 1.0 (0.9-1.1) Activated Partial Thromboplast Time 24.4 SECONDS (21.0-31.0) Partial Thromboplastin Ratio 0.9 Total Bilirubin 0.6 mg/dl (0.2-1) Aspartate Amino Transf (AST/SGOT) 14 U/L (15-37) Alanine Aminotransferase (ALT/SGPT) 23 U/L (12-78) Alkaline Phosphatase 137 U/L (45-117) Troponin I < 0.015 ng/ml (0-0.045) Pro-B-Type Natriuretic Peptide 127 pg/ml (0-900) Total Protein 7.2 gm/dl (6.4-8.2) Albumin 3.3 gm/dl (3.4-5.0) Globulin 3.9 gm/dl (2.5-4.0) Albumin/Globulin Ratio 0.8 (0.9-2) RDW Standard Deviation 50.3 fL (36.4-46.3) RDW Coefficient of Variation 15.7 % (11.5-14.5) Anion Gap 7.0 mmol/L (3-11) Est Creatinine Clear Calc Drug Dose 107.5 ml/min Estimated GFR () 97.7 Estimated GFR (Non- 84.3 BUN/Creatinine Ratio 23.9 (10-20) Calcium Level 9.5 mg/dl (8.5-10.1) Urine Color DK YELLOW Urine Appearance CLEAR (CLEAR) Urine pH 5.0 (4.5-7.5) Urine Specific [place] 1.029 (1.000-1.030) Urine Protein NEG (NEG) Urine Glucose (UA) NEG (NEG) Urine Ketones TRACE (NEG) Urine Occult Blood NEG (NEG) Urine Nitrite NEG (NEG) Urine Bilirubin NEG (NEG) Urine Urobilinogen NEG (NEG) Urine Leukocyte Esterase NEG (NEG) Bedside Glucose 130 mg/dl (70-90) Last 24 Hours Test 12/16/17 15:50 12/16/17 20:12 12/17/17 05:27 12/17/17 06:45 White Blood Count 12.71 K/uL 10.95 K/uL Red Blood Count 4.63 M/uL 4.54 M/uL Hemoglobin 12.9 g/dL 12.7 g/dL Hematocrit 40.6 % 39.7 % Mean Corpuscular Volume 87.7 fL 87.4 fL Mean Corpuscular Hemoglobin 27.9 pg 28.0 pg Mean Corpuscular Hemoglobin Concent 31.8 g/dl 32.0 g/dl Platelet Count 306 K/uL 293 K/uL Mean Platelet Volume 9.3 fL 9.4 fL Neutrophils (%) (Auto) 77.5 % Lymphocytes (%) (Auto) 13.7 % Monocytes (%) (Auto) 8.0 % Eosinophils (%) (Auto) 0.2 % Basophils (%) (Auto) 0.2 % Neutrophils # (Auto) 9.86 K/uL Lymphocytes # (Auto) 1.74 K/uL Monocytes # (Auto) 1.02 K/uL Eosinophils # (Auto) 0.02 K/uL Basophils # (Auto) 0.02 K/uL RDW Standard Deviation 50.0 fL 50.3 fL RDW Coefficient of Variation 15.6 % 15.7 % Immature Granulocyte % (Auto) 0.4 % Immature Granulocyte # (Auto) 0.05 K/uL Prothrombin Time 10.7 SECONDS Prothromb Time International Ratio 1.0 Activated Partial Thromboplast Time 24.4 SECONDS Partial Thromboplastin Ratio 0.9 Sodium Level 137 mmol/L 138 mmol/L Potassium Level 3.3 mmol/L 3.4 mmol/L Chloride Level 98 mmol/L 98 mmol/L Carbon Dioxide Level 32 mmol/L 33 mmol/L Anion Gap 7.0 mmol/L 7.0 mmol/L Blood Urea Nitrogen 19 mg/dl 17 mg/dl Creatinine 0.82 mg/dl 0.72 mg/dl Est Creatinine Clear Calc Drug Dose 94.4 ml/min 107.5 ml/min Estimated GFR () 83.4 97.7 Estimated GFR (Non- 72.0 84.3 BUN/Creatinine Ratio 22.9 23.9 Random Glucose 141 mg/dl 120 mg/dl Calcium Level 9.8 mg/dl 9.5 mg/dl Total Bilirubin 0.6 mg/dl Aspartate Amino Transf (AST/SGOT) 14 U/L Alanine Aminotransferase (ALT/SGPT) 23 U/L Alkaline Phosphatase 137 U/L Troponin I < 0.015 ng/ml Pro-B-Type Natriuretic Peptide 127 pg/ml Total Protein 7.2 gm/dl Albumin 3.3 gm/dl Globulin 3.9 gm/dl Albumin/Globulin Ratio 0.8 Bedside Glucose 142 mg/dl Urine Color DK YELLOW Urine Appearance CLEAR Urine pH 5.0 Urine Specific [place] 1.029 Urine Protein NEG Urine Glucose (UA) NEG Urine Ketones TRACE Urine Occult Blood NEG Urine Nitrite NEG Urine Bilirubin NEG Urine Urobilinogen NEG Urine Leukocyte Esterase NEG Test 12/17/17 07:41 12/17/17 11:52 Bedside Glucose 123 mg/dl 130 mg/dl Assessment & Plan 72-year-old female with 3 weeks of coughing which is somewhat improved per her report presents with generalized abdominal discomfort after severe coughing episodes at home. She has been on Levaquin, prednisone and an inhaler at home with some improvement. She denies any nausea but states that food just does not taste good. She reports her coughing spells cause nausea took to occur. She also has severe GERD and reports some regurgitation of food with this which is significantly worsened her coughing episodes. She reports her was sick with bronchitis prior to her. He is better at this time. She reports a history of chronic bronchitis yearly in the past but does not carry diagnosis of COPD and does not see a lung specialist. She denies a history of DIDI and is not on CPAP. She would like to try some regular food. She reports being on Robitussin with codeine but not having much. She also feels Robitussin with codeine caused constipation. 1. Acute orfpltihgw-2-1 weeks of productive cough which is improved somewhat. No success with Z-Korey and had been on 1 dose of Levaquin and prednisone as an outpatient. She does have acute history of asthma but is not currently wheezing or requiring extra oxygen. She reports duo nebs are triggering her to cough more. We discussed symptom improvement methods and decided on scheduled Tylenol with as needed Ultram for abdominal pain caused by excessive coughing, changing nebulizers to as needed, addressing GERD with a GI cocktail and as needed Tums, changing her diet to solid food, and adding MiraLAX for constipation. Will reassess her clinically in the morning. Continue Levaquin and prednisone for now. Continue nasal steroid and will add Delsym cough suppressant 2. Posttussive emesis-plan as above 3. Severe GERD-Protonix twice daily. Stopping Zantac as there is no improvement with this. Will add GI cocktail and as needed Tums. Recliner chair ordered to keep her more upright. Records reveal an upper esophageal web in the history which patient is not aware of, and she did report vomiting some undigested food. She may need outpatient EGD after her bronchitis symptoms and area 4. History of DVT PE provoked by hospitalization in 2010-continue DVT prophylaxis with heparin and will add SCDs 5. Diabetes mellitus type 2-diet controlled, as patient is on prednisone at this time will continue continue with sliding scale and coverage as needed. 6. Hypertension-blood pressure stable, continue Cozaar. HCTZ held on admission but this will be restarted as blood pressure is gone up DVT prophylaxis-subcu heparin Full code Disposition-we will discharge to home when symptoms improve and pain. DO [facility] Current Inpatient Medications: Current Inpatient Medications Medications (Trade) Dose Ordered Sig/Michelle Route Start Time Stop Time Status Last Admin Dose Admin Heparin Sodium (Porcine) (Heparin Sq 5000 Unit/0.5ml) 5,000 unit Q8 SQ 12/16/17 22:00 01/15/18 21:59 12/17/17 06:25 5,000 UNIT Acetaminophen (Tylenol Tab) 650 mg Q4H PRN PO 12/16/17 18:15 01/15/18 18:14 12/17/17 07:53 650 MG Al Hydrox/Mg Hydrox/Simethicone (Maalox Max Susp) 15 ml Q4H PRN PO 12/16/17 18:15 01/15/18 18:14 Magnesium Hydroxide (Milk Of Magnesia Susp) 30 ml Q6H PRN PO 12/16/17 18:15 01/15/18 18:14 Ondansetron HCl (Zofran Inj) 4 mg Q6H PRN IV 12/16/17 18:15 01/15/18 18:14 Amlodipine Besylate (Norvasc Tab) 5 mg DAILY PO 12/17/17 08:00 01/16/18 08:59 12/17/17 07:45 5 MG Aspirin (Ecotrin Tab) 81 mg QPM PO 12/16/17 21:00 01/15/18 20:59 12/16/17 20:32 81 MG Atorvastatin Calcium (Lipitor Tab) 80 mg DAILY PO 12/17/17 08:00 01/16/18 08:59 12/17/17 07:44 80 MG Losartan Potassium (coZAAR TAB) 25 mg DAILY PO 12/17/17 08:00 01/16/18 08:59 12/17/17 07:45 25 MG Multivitamins (Multivitamin Tab) 1 tab DAILY PO 12/17/17 08:00 01/16/18 08:59 12/17/17 07:45 1 TAB Nystatin (Mycostatin Powder) 1 appln BID PRN EXT 12/16/17 18:15 01/15/18 18:14 Nystatin/ Triamcinolone Acetonide (Mycogen II Crm) 1 appln BID PRN EXT 12/16/17 18:15 01/15/18 18:14 Pentoxifylline (Trental Tab) 400 mg PC PO 12/17/17 09:00 01/16/18 08:59 12/17/17 13:08 400 MG Triamcinolone Acetonide (Nasacort Allergy 24hr) 2 sprays BID PRN FARSHAD 12/16/17 18:15 01/15/18 18:14 Docusate Sodium (coLACE CAP) 100 mg DAILY PO 12/17/17 08:00 01/16/18 08:59 12/17/17 07:44 100 MG Pantoprazole Sodium (Protonix Tab) 40 mg BID PO 12/16/17 20:00 01/15/18 20:59 12/17/17 07:46 40 MG Miscellaneous Information (Order Awaiting Action) 1 ea QS N/A 12/17/17 00:00 01/16/18 00:00 Prednisone (PredniSONE TAB) 50 mg DAILY PO 12/17/17 08:00 01/16/18 08:59 12/17/17 07:44 50 MG Ranitidine HCl (zANTac TAB) 150 mg BID PO 12/16/17 20:00 01/15/18 20:59 12/17/17 07:47 150 MG Levalbuterol (Xopenex 0.63 Mg/ 3 Ml Neb) 0.63 mg Q6R INH 12/16/17 21:00 01/15/18 20:59 12/17/17 07:15 0.63 MG Guaifenesin (Mucinex Contr Rel Tab) 600 mg Q12 PO 12/16/17 21:00 01/15/18 20:59 12/17/17 07:45 600 MG Levofloxacin 500 mg/Prmx 100 ml @ 100 mls/hr Q24H IV 12/16/17 20:00 12/23/17 19:59 12/16/17 22:14 100 MLS/HR Insulin Aspart (novoLOG ASPART) SLIDING SCALE If C... ACHS SC 12/16/17 21:00 01/15/18 20:59 12/16/17 21:37 1 UNITS Glucose (Glucose 40% Gel) 15-30 GRAMS 15 GRAMS... UD PRN PO 12/16/17 18:30 01/15/18 18:29 Glucose (Glucose Chew Tab) 4-8 Tablets 4 Tabl... UD PRN PO 12/16/17 18:30 01/15/18 18:29 Dextrose (Dextrose 50% 50ML Syringe) 25-50ML OF 50% DW IV FOR... UD PRN IV 12/16/17 18:30 01/15/18 18:29 Glucagon (Glucagon Inj) 1 mg UD PRN SQ 12/16/17 18:30 01/15/18 18:29
[2017-12-17] MEDS ORDERED: LEVALBUTEROL 0.63MG/3 ML NEB INH PRN (13:30)
[2017-12-17] MEDS ORDERED: DEXTROMETHORPHAN POLYMR COMPLX 60 MG/10 ML UDP PO PRN (13:30)
[2017-12-17] MEDS ORDERED: ALUMINUM/MAGNESIUM SUSP 18 ML, LIDOCAINE HCL 2% VISCOUS SOLN 6 ML, BARCODE IDENTIFIER 1 EA PO ONE ×2 (13:45)
[2017-12-17] MEDS: TRIAMCINOLONE ACET NASAL SPRAY 10.8ML BTL NAE SCH (14:24)
[2017-12-17] MEDS: ACETAMINOPHEN 500 MG TAB PO SCH ×2 (14:25→21:33)
[2017-12-17] MEDS: LEVOFLOXACIN / D5W 500 MG in PREMIXED IN D5W 100 ML IV SCH (19:55)
[2017-12-17] MEDS: ASPIRIN 81 MG ECTAB PO SCH (19:56)
[2017-12-17] MEDS ORDERED: MOMETASONE/FORMOTEROL (DULERA) INH INH PRN (21:15)
[2017-12-18] VITALS: O2SAT 92
[2017-12-18 00:01] VITALS: BP 177/92; PULSE 99; TEMP 36.7; O2SAT 93
[2017-12-18 07:20] VITALS: BP 172/92; PULSE 97; TEMP 36.7; O2SAT 94
[2017-12-18] MEDS: LOSARTAN POTASSIUM 25 MG TAB PO SCH (08:06)
[2017-12-18] MEDS: MULTIVITAMIN TAB PO SCH (08:06)
[2017-12-18] MEDS: PANTOprazole SOD 40 MG TAB PO SCH ×2 (08:06→19:42)
[2017-12-18] MEDS: AMLODIPINE BESYLATE 5 MG TAB PO SCH (08:06)
[2017-12-18] MEDS: DOCUSATE SODIUM 100 MG CAP PO SCH (08:07)
[2017-12-18] MEDS: PENTOXIFYLLINE 400MG EXT REL TAB PO SCH ×3 (08:07→18:19)
[2017-12-18] MEDS: ATORVASTATIN 40 MG TAB PO SCH (08:07)
[2017-12-18] MEDS: GUAIFENESIN 600 MG TABCR PO SCH ×2 (08:07→20:54)
[2017-12-18] MEDS: TRIAMCINOLONE ACET NASAL SPRAY 10.8ML BTL NAE SCH (08:08)
[2017-12-18] MEDS: ACETAMINOPHEN 500 MG TAB PO SCH ×3 (08:09→21:04)
[2017-12-18] MEDS: HEPARIN SOD 5000 UNIT/0.5 ML CARP SQ SCH ×3 (08:09→21:16)
[2017-12-18] MEDS: HYDROCHLOROTHIAZIDE 25 MG TAB PO SCH (08:09)
[2017-12-18 08:30] VITALS: O2SAT 94
[2017-12-18] MEDS: INSULIN ASPART 100 UNITS/ML 3 ML PEN SC SCH ×4 (08:45→20:53)
[2017-12-18] MEDS ORDERED: BISACODYL 10 MG SUPP PR PRN (12:45)
[2017-12-18] MEDS ORDERED: POLYETHYLENE (MIRALAX) 17 GM PACK PO ONE (12:46)
[2017-12-18] MEDS ORDERED: BISACODYL 10 MG SUPP PR ONE (12:47)
[2017-12-18] MEDS: ONDANSETRON INJ 2 MG/ML 2 ML VIAL IV SCH ×2 (12:58→21:01)
[2017-12-18 15:17] VITALS: BP 144/62; PULSE 89; TEMP 36.7; O2SAT 94
--- NOTE | 2017-12-18 18:31 | Progress Note ---
Medicine Progress Note Date & Time of Visit: Dec 18, 2017 at 12:43. Subjective 72-year-old female with 3 weeks of coughing which is somewhat improved per her report presents with generalized abdominal discomfort after severe coughing episodes at home. Abdominal pain is resolved overnight. Patient reports coughing brings up mucus which irritates the back of her throat and causes her to gag and have accelerated reflux. She was not able to keep down the GI cocktail yesterday. She did not try Tums or Delsym overnight. Supportive care measures were reviewed with patient. She is tolerating p.o. Objective Last 8 Hrs Date Time Temp Pulse Resp B/P (MAP) Pulse Ox O2 Delivery O2 Flow Rate FiO2 12/18/17 08:30 94 Room Air 12/18/17 07:20 36.7 97 18 172/92 (118) 94 Room Air Physical Exam: GEN: obese, in no acute distress, alert and appropriate, appears periodically nauseous HEENT: NC/AT, PERRL, normal sclerae, no nasal drainage noted CARDIO: reg rate, S1/2 heard without m/g/r LUNGS: CTA bilaterally, no crackles, rales or wheezes, good diaphragmatic excursion ABD: soft, nontender, large pannus, non-distended, no rebound or guarding, +BS EXTREMITY: RP and DP palpable 2+ bilat, no LE swelling or edema, extremities are warm and well-perfused NEURO: CN 2-12 grossly intact MUSC: generalized weakness but no focal deficits. SKIN: warm and dry Laboratory Results: 12/17/17 05:27 12/17/17 05:27 Test 12/16/17 15:50 12/17/17 05:27 12/17/17 06:45 12/18/17 16:30 Immature Granulocyte % (Auto) 0.4 % White Blood Count 12.71 K/uL (4.8-10.8) Red Blood Count 4.63 M/uL (4.2-5.4) 4.54 M/uL (4.2-5.4) Hemoglobin 12.9 g/dL (12.0-16.0) Hematocrit 40.6 % (37-47) Mean Corpuscular Volume 87.7 fL (80-100) 87.4 fL (80-100) Mean Corpuscular Hemoglobin 27.9 pg (25-34) 28.0 pg (25-34) Mean Corpuscular Hemoglobin Concent 31.8 g/dl (32-36) 32.0 g/dl (32-36) Platelet Count 306 K/uL (130-400) Mean Platelet Volume 9.3 fL (7.4-10.4) 9.4 fL (7.4-10.4) Neutrophils (%) (Auto) 77.5 % Lymphocytes (%) (Auto) 13.7 % Monocytes (%) (Auto) 8.0 % Eosinophils (%) (Auto) 0.2 % Basophils (%) (Auto) 0.2 % Neutrophils # (Auto) 9.86 K/uL (1.4-6.5) Lymphocytes # (Auto) 1.74 K/uL (1.2-3.4) Monocytes # (Auto) 1.02 K/uL (0.11-0.59) Eosinophils # (Auto) 0.02 K/uL (0-0.5) Basophils # (Auto) 0.02 K/uL (0-0.2) Immature Granulocyte # (Auto) 0.05 K/uL (0.00-0.02) Prothrombin Time 10.7 SECONDS (9.0-12.0) Prothromb Time International Ratio 1.0 (0.9-1.1) Activated Partial Thromboplast Time 24.4 SECONDS (21.0-31.0) Partial Thromboplastin Ratio 0.9 Total Bilirubin 0.6 mg/dl (0.2-1) Aspartate Amino Transf (AST/SGOT) 14 U/L (15-37) Alanine Aminotransferase (ALT/SGPT) 23 U/L (12-78) Alkaline Phosphatase 137 U/L (45-117) Troponin I < 0.015 ng/ml (0-0.045) Pro-B-Type Natriuretic Peptide 127 pg/ml (0-900) Total Protein 7.2 gm/dl (6.4-8.2) Albumin 3.3 gm/dl (3.4-5.0) Globulin 3.9 gm/dl (2.5-4.0) Albumin/Globulin Ratio 0.8 (0.9-2) RDW Standard Deviation 50.3 fL (36.4-46.3) RDW Coefficient of Variation 15.7 % (11.5-14.5) Anion Gap 7.0 mmol/L (3-11) Est Creatinine Clear Calc Drug Dose 107.5 ml/min Estimated GFR () 97.7 Estimated GFR (Non- 84.3 BUN/Creatinine Ratio 23.9 (10-20) Calcium Level 9.5 mg/dl (8.5-10.1) Urine Color DK YELLOW Urine Appearance CLEAR (CLEAR) Urine pH 5.0 (4.5-7.5) Urine Specific [place] 1.029 (1.000-1.030) Urine Protein NEG (NEG) Urine Glucose (UA) NEG (NEG) Urine Ketones TRACE (NEG) Urine Occult Blood NEG (NEG) Urine Nitrite NEG (NEG) Urine Bilirubin NEG (NEG) Urine Urobilinogen NEG (NEG) Urine Leukocyte Esterase NEG (NEG) Bedside Glucose 141 mg/dl (70-90) Last 24 Hours Test 12/17/17 16:36 12/17/17 20:33 12/18/17 07:51 12/18/17 11:37 Bedside Glucose 144 mg/dl 127 mg/dl 122 mg/dl 138 mg/dl Assessment & Plan 72-year-old female with 3 weeks of coughing which is somewhat improved per her report presents with generalized abdominal discomfort after severe coughing episodes at home. Abdominal pain is resolved overnight. Patient reports coughing brings up mucus which irritates the back of her throat and causes her to gag and have accelerated reflux. She was not able to keep down the GI cocktail yesterday. She did not try Tums or Delsym overnight. Supportive care measures were reviewed with patient. She is tolerating p.o. 1. Acute eoknwwmgir-5-2 weeks of productive cough which is improved somewhat. No success with Z-Korey and had been on 1 dose of Levaquin and prednisone as an outpatient. She does have acute history of asthma but is not currently wheezing or requiring extra oxygen. Continue scheduled Tylenol with breakthrough Ultram as needed for pain, scheduled Zofran for intermittent nausea , Delsym as needed, Tums as needed, MiraLAX and bisacodyl suppository for constipation which may be contributing to symptoms of discomfort. Continue nasal steroid as patient reported history of sinus tenderness which is resolved. 2. Posttussive emesis-plan as above 3. Severe GERD-Protonix twice daily. Tums as needed recliner chair ordered to keep her more upright. Records reveal an upper esophageal web in the history which patient is not aware of, and she did report vomiting some undigested food. She may need outpatient EGD after her bronchitis symptoms and area 4. History of DVT PE provoked by hospitalization in 2010-continue DVT prophylaxis with heparin and will add SCDs 5. Diabetes mellitus type 2-diet controlled, as patient is on prednisone at this time will continue continue with sliding scale and coverage as needed. 6. Hypertension-blood pressure stable, continue Cozaar and HCTZ. Patient is uncomfortable and therefore blood pressure is somewhat elevated. Continue to monitor. DVT prophylaxis-subcu heparin Full code Disposition-we will discharge to home when symptoms improve and pain. Grisel Lino DO [facility] hospitalist Current Inpatient Medications: Current Inpatient Medications Medications (Trade) Dose Ordered Sig/Michelle Route Start Time Stop Time Status Last Admin Dose Admin Heparin Sodium (Porcine) (Heparin Sq 5000 Unit/0.5ml) 5,000 unit Q8 SQ 12/16/17 22:00 01/15/18 21:59 12/17/17 21:31 5,000 UNIT Al Hydrox/Mg Hydrox/Simethicone (Maalox Max Susp) 15 ml Q4H PRN PO 12/16/17 18:15 01/15/18 18:14 Magnesium Hydroxide (Milk Of Magnesia Susp) 30 ml Q6H PRN PO 12/16/17 18:15 01/15/18 18:14 Ondansetron HCl (Zofran Inj) 4 mg Q6H PRN IV 12/16/17 18:15 01/15/18 18:14 Amlodipine Besylate (Norvasc Tab) 5 mg DAILY PO 12/17/17 08:00 01/16/18 08:59 12/18/17 08:06 5 MG Aspirin (Ecotrin Tab) 81 mg QPM PO 12/16/17 21:00 01/15/18 20:59 12/17/17 19:56 81 MG Atorvastatin Calcium (Lipitor Tab) 80 mg DAILY PO 12/17/17 08:00 01/16/18 08:59 12/18/17 08:07 80 MG Losartan Potassium (coZAAR TAB) 25 mg DAILY PO 12/17/17 08:00 01/16/18 08:59 12/18/17 08:06 25 MG Multivitamins (Multivitamin Tab) 1 tab DAILY PO 12/17/17 08:00 01/16/18 08:59 12/18/17 08:06 1 TAB Nystatin (Mycostatin Powder) 1 appln BID PRN EXT 12/16/17 18:15 01/15/18 18:14 Nystatin/ Triamcinolone Acetonide (Mycogen II Crm) 1 appln BID PRN EXT 12/16/17 18:15 01/15/18 18:14 Pentoxifylline (Trental Tab) 400 mg PC PO 12/17/17 09:00 01/16/18 08:59 12/18/17 08:07 400 MG Docusate Sodium (coLACE CAP) 100 mg DAILY PO 12/17/17 08:00 01/16/18 08:59 12/18/17 08:07 100 MG Pantoprazole Sodium (Protonix Tab) 40 mg BID PO 12/16/17 20:00 01/15/18 20:59 12/18/17 08:06 40 MG Prednisone (PredniSONE TAB) 50 mg DAILY PO 12/17/17 08:00 01/16/18 08:59 12/18/17 08:08 50 MG Guaifenesin (Mucinex Contr Rel Tab) 600 mg Q12 PO 12/16/17 21:00 01/15/18 20:59 12/18/17 08:07 600 MG Levofloxacin 500 mg/Prmx 100 ml @ 100 mls/hr Q24H IV 12/16/17 20:00 12/23/17 19:59 12/17/17 19:55 100 MLS/HR Insulin Aspart (novoLOG ASPART) SLIDING SCALE If C... ACHS SC 12/16/17 21:00 01/15/18 20:59 12/16/17 21:37 1 UNITS Glucose (Glucose 40% Gel) 15-30 GRAMS 15 GRAMS... UD PRN PO 12/16/17 18:30 01/15/18 18:29 Glucose (Glucose Chew Tab) 4-8 Tablets 4 Tabl... UD PRN PO 12/16/17 18:30 01/15/18 18:29 Dextrose (Dextrose 50% 50ML Syringe) 25-50ML OF 50% DW IV FOR... UD PRN IV 12/16/17 18:30 5/5/18 18:29 Glucagon (Glucagon Inj) 1 mg UD PRN SQ 12/16/17 18:30 01/15/18 18:29 Triamcinolone Acetonide (Nasacort Allergy 24hr) 2 sprays DAILY FARSHAD 12/17/17 13:03 01/15/18 18:14 12/18/17 08:08 2 SPRAYS Acetaminophen (Tylenol Tab) 1,000 mg Q8 PO 12/17/17 14:00 01/16/18 13:59 12/18/17 08:09 1,000 MG Tramadol HCl (Ultram Tab) 50 mg Q4H PRN PO 12/17/17 13:15 01/16/18 13:14 Calcium Carbonate (Tums Chew Tab) 500 mg QID PRN PO 12/17/17 13:15 01/16/18 13:14 Polyethylene (Miralax Powder Packet) 17 gm DAILY PRN PO 12/17/17 13:15 01/16/18 13:14 Levalbuterol (Xopenex 0.63 Mg/ 3 Ml Neb) 0.63 mg Q6R PRN INH 12/17/17 13:30 01/15/18 20:59 Dextromethorphan Polymer Complex (Delsym Susp) 60 mg Q12H PRN PO 12/17/17 13:30 01/16/18 13:29 Hydrochlorothiazide (Hydrochlorothiazide Tab) 25 mg DAILY PO 12/18/17 08:00 01/17/18 07:59 12/18/17 08:09 25 MG Mometasone Furoate/ Formoterol Fumar (Dulera 100-5 Mcg/Act) 2 puffs BID PRN INH 12/17/17 21:45 01/16/18 21:14
[2017-12-18] MEDS ORDERED: PROMETHAZINE HCL 25 MG TAB PO PRN (18:45)
[2017-12-18] MEDS: LEVOFLOXACIN / D5W 500 MG in PREMIXED IN D5W 100 ML IV SCH (19:42)
[2017-12-18] MEDS: ASPIRIN 81 MG ECTAB PO SCH (20:54)
[2017-12-18 22:45] VITALS: BP 161/67; PULSE 81; TEMP 36.9; O2SAT 90
[2017-12-19] VITALS (8 sets, daily range): BP systolic 126–169; BP diastolic 65–85; PULSE 76–107; TEMP 36.5–37; O2SAT 92–98
[2017-12-19] MEDS: ONDANSETRON INJ 2 MG/ML 2 ML VIAL IV SCH ×3 (04:57→21:02)
[2017-12-19] MEDS: ACETAMINOPHEN 500 MG TAB PO SCH (04:59)
[2017-12-19] MEDS: HEPARIN SOD 5000 UNIT/0.5 ML CARP SQ SCH (05:04)
[2017-12-19 05:43] LABS: HEMATOCRIT 41.3 % (37-47); HEMOGLOBIN 13.2 g/dL (12.0-16.0); MEAN CELL VOLUME 87.7 fL (80-100); MEAN PLATELET VOLUME 10.1 fL (7.4-10.4); PLATELET COUNT 265 K/uL (130-400); RED CELL DISTRIBUTION WIDTH CV 15.5 % (11.5-14.5); RED CELL DISTRIBUTION WIDTH SD 49.8 fL (36.4-46.3); WHITE BLOOD COUNT 13.11 K/uL (4.8-10.8)
[2017-12-19 06:12] LABS: CALCIUM 9.3 mg/dl (8.5-10.1); CREATININE 0.72 mg/dl (0.60-1.20); POTASSIUM 3.8 mmol/L (3.5-5.1)
[2017-12-19 06:13] LABS: PHOSPHORUS 4.1 mg/dl (2.5-4.9)
[2017-12-19] MEDS: LOSARTAN POTASSIUM 25 MG TAB PO SCH (08:27)
[2017-12-19] MEDS: GUAIFENESIN 600 MG TABCR PO SCH (08:27)
[2017-12-19] MEDS: DOCUSATE SODIUM 100 MG CAP PO SCH (08:27)
[2017-12-19] MEDS: ATORVASTATIN 40 MG TAB PO SCH (08:27)
[2017-12-19] MEDS: MULTIVITAMIN TAB PO SCH (08:28)
[2017-12-19] MEDS: PENTOXIFYLLINE 400MG EXT REL TAB PO SCH ×2 (08:28→12:54)
[2017-12-19] MEDS: AMLODIPINE BESYLATE 5 MG TAB PO SCH (08:29)
[2017-12-19] MEDS: HYDROCHLOROTHIAZIDE 25 MG TAB PO SCH (08:29)
[2017-12-19] MEDS: PANTOprazole SOD 40 MG TAB PO SCH ×2 (08:29→20:59)
[2017-12-19] MEDS: TRIAMCINOLONE ACET NASAL SPRAY 10.8ML BTL NAE SCH (08:30)
[2017-12-19] MEDS: INSULIN ASPART 100 UNITS/ML 3 ML PEN SC SCH (08:30)
[2017-12-19] MEDS ORDERED: MICONAZOLE NITRATE POWDER 43 GM ONE (10:27)
--- NOTE | 2017-12-19 10:32 | Progress Note ---
Medicine Progress Note Date & Time of Visit: Dec 19, 2017 at 10:19. Subjective 72-year-old female with 3 weeks of coughing which continues to improve. She initially reported some generalized abdominal discomfort related to severe coughing that was periumbilical when she was admitted. In the last couple of days this has been resolved, however, overnight she has developed a right sided abdominal pressure. She reports no bowel movement in several days and her either. She continues to report mucus in the back of her throat which is somewhat improved, but this is a nidus of sensitive gag reflex causing her to have some productive reflux. She denies any vomiting and the scheduled Zofran has helped her nausea overnight. She is still having difficulties with food but is able to keep down favorites of her such as chocolate milk and she is asking for pizza. She appears to have low motivation to ambulate but is ambulating to and from the bathroom with minimal assistance. Her breathing is stable and there is no wheezing present. She does report the coughing is improved. Objective Last 8 Hrs Date Time Temp Pulse Resp B/P (MAP) Pulse Ox O2 Delivery O2 Flow Rate FiO2 12/19/17 07:09 37.0 107 20 166/75 (105) 92 Room Air Physical Exam: GEN: obese, in no acute distress, alert and appropriate HEENT: NC/AT, normal sclerae, MMM CARDIO: reg rate, S1/2 heard without m/g/r LUNGS: CTA bilaterally, no crackles, rales or wheezes, good diaphragmatic excursion ABD: soft, nontender, large pannus sitting on top of thighs, non-distended, no rebound or guarding, +BS EXTREMITY: RP and DP palpable 2+ bilat, no LE swelling or edema, extremities are warm and well-perfused NEURO: CN 2-12 grossly intact MUSC: generalized weakness but no focal deficits. SKIN: warm and dry Laboratory Results: 12/19/17 05:12 12/19/17 05:12 Test 12/16/17 15:50 12/17/17 06:45 12/19/17 05:12 12/19/17 07:52 Immature Granulocyte % (Auto) 0.4 % White Blood Count 12.71 K/uL (4.8-10.8) Red Blood Count 4.63 M/uL (4.2-5.4) 4.71 M/uL (4.2-5.4) Hemoglobin 12.9 g/dL (12.0-16.0) Hematocrit 40.6 % (37-47) Mean Corpuscular Volume 87.7 fL (80-100) 87.7 fL (80-100) Mean Corpuscular Hemoglobin 27.9 pg (25-34) 28.0 pg (25-34) Mean Corpuscular Hemoglobin Concent 31.8 g/dl (32-36) 32.0 g/dl (32-36) Platelet Count 306 K/uL (130-400) Mean Platelet Volume 9.3 fL (7.4-10.4) 10.1 fL (7.4-10.4) Neutrophils (%) (Auto) 77.5 % Lymphocytes (%) (Auto) 13.7 % Monocytes (%) (Auto) 8.0 % Eosinophils (%) (Auto) 0.2 % Basophils (%) (Auto) 0.2 % Neutrophils # (Auto) 9.86 K/uL (1.4-6.5) Lymphocytes # (Auto) 1.74 K/uL (1.2-3.4) Monocytes # (Auto) 1.02 K/uL (0.11-0.59) Eosinophils # (Auto) 0.02 K/uL (0-0.5) Basophils # (Auto) 0.02 K/uL (0-0.2) Immature Granulocyte # (Auto) 0.05 K/uL (0.00-0.02) Prothrombin Time 10.7 SECONDS (9.0-12.0) Prothromb Time International Ratio 1.0 (0.9-1.1) Activated Partial Thromboplast Time 24.4 SECONDS (21.0-31.0) Partial Thromboplastin Ratio 0.9 Total Bilirubin 0.6 mg/dl (0.2-1) Aspartate Amino Transf (AST/SGOT) 14 U/L (15-37) Alanine Aminotransferase (ALT/SGPT) 23 U/L (12-78) Alkaline Phosphatase 137 U/L (45-117) Troponin I < 0.015 ng/ml (0-0.045) Pro-B-Type Natriuretic Peptide 127 pg/ml (0-900) Total Protein 7.2 gm/dl (6.4-8.2) Albumin 3.3 gm/dl (3.4-5.0) Globulin 3.9 gm/dl (2.5-4.0) Albumin/Globulin Ratio 0.8 (0.9-2) Urine Color DK YELLOW Urine Appearance CLEAR (CLEAR) Urine pH 5.0 (4.5-7.5) Urine Specific [place] 1.029 (1.000-1.030) Urine Protein NEG (NEG) Urine Glucose (UA) NEG (NEG) Urine Ketones TRACE (NEG) Urine Occult Blood NEG (NEG) Urine Nitrite NEG (NEG) Urine Bilirubin NEG (NEG) Urine Urobilinogen NEG (NEG) Urine Leukocyte Esterase NEG (NEG) RDW Standard Deviation 49.8 fL (36.4-46.3) RDW Coefficient of Variation 15.5 % (11.5-14.5) Anion Gap 7.0 mmol/L (3-11) Est Creatinine Clear Calc Drug Dose 107.5 ml/min Estimated GFR () 97.7 Estimated GFR (Non- 84.3 BUN/Creatinine Ratio 34.8 (10-20) Calcium Level 9.3 mg/dl (8.5-10.1) Phosphorus Level 4.1 mg/dl (2.5-4.9) Magnesium Level 2.6 mg/dl (1.8-2.4) Bedside Glucose 122 mg/dl (70-90) Date/Time Source Procedure Growth Status 12/19/17 00:00 Sputum Expectorated Sputum Gram Stain Pending Received 12/19/17 00:00 Sputum Expectorated Sputum Sputum Culture Pending Received Last 24 Hours Test 12/18/17 11:37 12/18/17 16:30 12/18/17 20:18 12/19/17 05:12 Bedside Glucose 138 mg/dl 141 mg/dl 125 mg/dl White Blood Count 13.11 K/uL Red Blood Count 4.71 M/uL Hemoglobin 13.2 g/dL Hematocrit 41.3 % Mean Corpuscular Volume 87.7 fL Mean Corpuscular Hemoglobin 28.0 pg Mean Corpuscular Hemoglobin Concent 32.0 g/dl RDW Standard Deviation 49.8 fL RDW Coefficient of Variation 15.5 % Platelet Count 265 K/uL Mean Platelet Volume 10.1 fL Sodium Level 133 mmol/L Potassium Level 3.8 mmol/L Chloride Level 96 mmol/L Carbon Dioxide Level 30 mmol/L Anion Gap 7.0 mmol/L Blood Urea Nitrogen 25 mg/dl Creatinine 0.72 mg/dl Est Creatinine Clear Calc Drug Dose 107.5 ml/min Estimated GFR () 97.7 Estimated GFR (Non- 84.3 BUN/Creatinine Ratio 34.8 Random Glucose 110 mg/dl Calcium Level 9.3 mg/dl Phosphorus Level 4.1 mg/dl Magnesium Level 2.6 mg/dl Test 12/19/17 07:52 Bedside Glucose 122 mg/dl Date/Time Source Procedure Growth Status 12/19/17 00:00 Sputum Expectorated Sputum Gram Stain Pending Received 12/19/17 00:00 Sputum Expectorated Sputum Sputum Culture Pending Received Assessment & Plan 72-year-old female with 3 weeks of coughing which continues to improve. She initially reported some generalized abdominal discomfort related to severe coughing that was periumbilical when she was admitted. In the last couple of days this has been resolved, however, overnight she has developed a right sided abdominal pressure. She reports no bowel movement in several days and her either. She continues to report mucus in the back of her throat which is somewhat improved, but this is a nidus of sensitive gag reflex causing her to have some productive reflux. She denies any vomiting and the scheduled Zofran has helped her nausea overnight. She is still having difficulties with food but is able to keep down favorites of her such as chocolate milk and she is asking for pizza. She appears to have low motivation to ambulate but is ambulating to and from the bathroom with minimal assistance. Her breathing is stable and there is no wheezing present. She does report the coughing is improved. 1. Severe GERD-Protonix twice daily. Tums as needed recliner chair ordered to keep her more upright per her request. Records reveal an upper esophageal web in the history which patient is not aware of; she may need outpatient EGD after her bronchitis symptoms and area. She denies vomiting at this time. As she does seem to have some worsening abdominal pressure overnight without distention , and she has a history of no flatus or bowel movement in the last couple of days, we will get a CT abdomen pelvis at this time. The CT is ordered over the x-ray as the body habitus lends itself to limited diagnostic capability with the the x-ray alone. 2. Acute zwoudnagcr-1-7 weeks of productive cough which continues to improve with supportive care. Stopping prednisone and Levaquin after today as this will complete a 5 day course. No wheezing on exam. Breathing is stable. Continue supportive care measures for cough as needed. Continue nasal steroid as she reports his history of sinus tenderness and postnasal drip which is resolving. 3. 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 Heparin preferred for better absorption with body habitus. 4. Diabetes mellitus type 2-diet controlled, stopping insulin sliding scale and fingersticks at this time as she has been controlled without coverage for the past several days despite prednisone use. 5. Hypertension-blood pressure stable, continue Cozaar and HCTZ. Patient is uncomfortable and therefore blood pressure is somewhat elevated. Continue to monitor. DVT prophylaxis-subcu heparin Full code Disposition-continue hospitalization until patient is reliably tolerating food and feeling improved. Grisel Lino DO [facility] hospitalist Current Inpatient Medications: Current Inpatient Medications Medications (Trade) Dose Ordered Sig/Michelle Route Start Time Stop Time Status Last Admin Dose Admin Heparin Sodium (Porcine) (Heparin Sq 5000 Unit/0.5ml) 5,000 unit Q8 SQ 12/16/17 22:00 01/15/18 21:59 12/19/17 05:04 5,000 UNIT Al Hydrox/Mg Hydrox/Simethicone (Maalox Max Susp) 15 ml Q4H PRN PO 12/16/17 18:15 01/15/18 18:14 Magnesium Hydroxide (Milk Of Magnesia Susp) 30 ml Q6H PRN PO 12/16/17 18:15 01/15/18 18:14 12/18/17 21:17 30 ML Amlodipine Besylate (Norvasc Tab) 5 mg DAILY PO 12/17/17 08:00 01/16/18 08:59 12/19/17 08:29 5 MG Aspirin (Ecotrin Tab) 81 mg QPM PO 12/16/17 21:00 01/15/18 20:59 12/18/17 20:54 81 MG Atorvastatin Calcium (Lipitor Tab) 80 mg DAILY PO 12/17/17 08:00 01/16/18 08:59 12/19/17 08:27 80 MG Losartan Potassium (coZAAR TAB) 25 mg DAILY PO 12/17/17 08:00 01/16/18 08:59 12/19/17 08:27 25 MG Multivitamins (Multivitamin Tab) 1 tab DAILY PO 12/17/17 08:00 01/16/18 08:59 12/19/17 08:28 1 TAB Nystatin (Mycostatin Powder) 1 appln BID PRN EXT 12/16/17 18:15 01/15/18 18:14 Nystatin/ Triamcinolone Acetonide (Mycogen II Crm) 1 appln BID PRN EXT 12/16/17 18:15 01/15/18 18:14 Pentoxifylline (Trental Tab) 400 mg PC PO 12/17/17 09:00 01/16/18 08:59 12/19/17 08:28 400 MG Docusate Sodium (coLACE CAP) 100 mg DAILY PO 12/17/17 08:00 01/16/18 08:59 12/19/17 08:27 100 MG Pantoprazole Sodium (Protonix Tab) 40 mg BID PO 12/16/17 20:00 01/15/18 20:59 12/19/17 08:29 40 MG Prednisone (PredniSONE TAB) 50 mg DAILY PO 12/17/17 08:00 01/16/18 08:59 12/19/17 08:28 50 MG Guaifenesin (Mucinex Contr Rel Tab) 600 mg Q12 PO 12/16/17 21:00 01/15/18 20:59 12/19/17 08:27 600 MG Levofloxacin 500 mg/Prmx 100 ml @ 100 mls/hr Q24H IV 12/16/17 20:00 12/23/17 19:59 12/18/17 19:42 100 MLS/HR Insulin Aspart (novoLOG ASPART) SLIDING SCALE If C... ACHS SC 12/16/17 21:00 01/15/18 20:59 12/18/17 17:53 3 UNITS Glucose (Glucose 40% Gel) 15-30 GRAMS 15 GRAMS... UD PRN PO 12/16/17 18:30 01/15/18 18:29 Glucose (Glucose Chew Tab) 4-8 Tablets 4 Tabl... UD PRN PO 12/16/17 18:30 01/15/18 18:29 Dextrose (Dextrose 50% 50ML Syringe) 25-50ML OF 50% DW IV FOR... UD PRN IV 12/16/17 18:30 01/15/18 18:29 Glucagon (Glucagon Inj) 1 mg UD PRN SQ 12/16/17 18:30 01/15/18 18:29 Triamcinolone Acetonide (Nasacort Allergy 24hr) 2 sprays DAILY FARSHAD 12/17/17 13:03 01/15/18 18:14 12/19/17 08:30 2 SPRAYS Acetaminophen (Tylenol Tab) 1,000 mg Q8 PO 12/17/17 14:00 01/16/18 13:59 12/19/17 04:59 1,000 MG Tramadol HCl (Ultram Tab) 50 mg Q4H PRN PO 12/17/17 13:15 01/16/18 13:14 Calcium Carbonate (Tums Chew Tab) 500 mg QID PRN PO 12/17/17 13:15 01/16/18 13:14 12/18/17 18:19 500 MG Polyethylene (Miralax Powder Packet) 17 gm DAILY PRN PO 12/17/17 13:15 01/16/18 13:14 Levalbuterol (Xopenex 0.63 Mg/ 3 Ml Neb) 0.63 mg Q6R PRN INH 12/17/17 13:30 01/15/18 20:59 Dextromethorphan Polymer Complex (Delsym Susp) 60 mg Q12H PRN PO 12/17/17 13:30 01/16/18 13:29 Hydrochlorothiazide (Hydrochlorothiazide Tab) 25 mg DAILY PO 12/18/17 08:00 01/17/18 07:59 12/19/17 08:29 25 MG Mometasone Furoate/ Formoterol Fumar (Dulera 100-5 Mcg/Act) 2 puffs BID PRN INH 12/17/17 21:45 01/16/18 21:14 Ondansetron HCl (Zofran Inj) 4 mg Q8H IV 12/18/17 12:45 01/15/18 12:44 12/19/17 04:57 4 MG Bisacodyl (Dulcolax Supp) 10 mg DAILY PRN TN 12/18/17 12:45 01/17/18 12:44 Promethazine HCl (Phenergan Tab) 25 mg Q6H PRN PO 12/18/17 18:45 01/17/18 18:44 12/18/17 19:20 25 MG
--- NOTE | 2017-12-19 11:05 | DIAGNOSTIC IMAGING REPORT ---
ADDENDUM Addendum: The scan findings were discussed with Dr. Abernathy. Due to the patient's very large body habitus and rotated position, the hernia was incorrectly stated to represent a spigelian hernia. On review of the films, the hernia appears to represent an umbilical hernia. Corrected impression: Umbilical hernia with a secondary small bowel obstruction. Electronically signed by: Ahmet Muhammad M.D. 12/19/2017 1:10 PM Dictated Date/Time: 12/19/2017 1:[address] SCAN OF THE ABDOMEN AND PELVIS WITHOUT CONTRAST CLINICAL HISTORY: Intermittent abdominal pain. History of abdominal surgery. Constipation. COMPARISON STUDY: No previous studies for comparison. TECHNIQUE: CT scan of the abdomen and pelvis was performed from the lung bases to the proximal femurs. Images are reviewed in the axial, sagittal, and coronal planes. IV contrast was not administered for this examination. A dose lowering technique was utilized adhering to the principles of ALARA. CT DOSE: 2129.13 mGy.cm FINDINGS: Lower chest: The heart is normal in size and configuration, without pericardial effusion. The lung bases and pleural spaces are clear. Liver: The unenhanced liver is normal in size, contour, and attenuation. There is no intrahepatic biliary ductal dilatation. Gallbladder: Not visualized and presumed surgically absent Spleen: Normal in size and attenuation. Pancreas: Unremarkable. Adrenal glands: There is a 24 mm right adrenal gland adenoma. Kidneys: There is a 4 mm left renal calculus. There is a 2.5 cm left renal cyst. There is no hydronephrosis. Bowel: There is a right-sided spigelian hernia, resulting in a small bowel obstruction. Proximal small bowel loops are dilated with multiple air-fluid levels. The bowel distal to the hernia is decompressed. Surgical consultation is recommended. There is diverticulosis. There is no acute diverticulitis. There is no evidence of acute appendicitis. Peritoneum: There is no intraperitoneal free air or abdominal ascites. Vasculature: The abdominal aorta is normal in course and caliber. Adenopathy: None. Pelvic viscera: There is a droplet of air within the bladder, likely iatrogenic. Skeletal structures: No destructive osseous lesions are seen. IMPRESSION: Right-sided spigelian hernia, with a resulting small bowel obstruction. Surgical consultation is recommended. Electronically signed by: Ahmet Muhammad M.D. 12/19/2017 11:04 AM Dictated Date/Time: 12/19/2017 10:56 AM
[2017-12-19] MEDS ORDERED: ACETAMINOPHEN IV 650 MG in EMPTY BAG 0 ML IV PRN (11:45)
--- NOTE | 2017-12-19 13:03 | Surgery Consultation ---
Consultation Date of Consultation: Dec 19, 2017. Attending Physician: Grisel Lino, DO History of Present Illness I have been asked by Dr. Lino to see this 72-year-old female who initially was admitted with an exacerbation of bronchitis. She was placed on antibiotics and had been on prednisone as an outpatient. She initially had some mild abdominal discomfort seemed to resolve although today she had some right sided ache-like discomfort located in the midportion of her abdomen but not down in her very large pannus. She has not had nausea but she had more reflux than usual. She has not passed any flatus and has not had a bowel movement in the last 4-5 days. This is unusual for her. Her previous abdominal surgery includes an open cholecystectomy back in the early s. She also had a tubal during that same timeframe. She had her wisdom teeth out as well. A CT scan was performed which demonstrated a right-sided incarcerated spigelian hernia with small bowel. There are bowel proximal to that appeared to be obstructed. She has never had surgery in that particular area. She has a history of pulmonary embolus but her warfarin therapy was continued for only 6 months and she has not been on anticoagulation therapy now for many years. Past Medical/Surgical History Medical Problems: (1) Fracture of humeral head, right, closed Status: Acute (2) Hypoxia Status: Acute HTN DMII Hypercholesterolemia Usues Oxygen (2L0 at home PE DVT GERD Uterine Cancer treated with radiation implants Morbid obesity PSH: Open cholecystectomy Tubal Ligation wisdom teeth removal; Multiple D&C's Family History Hypertension Social History Smoking Status: Never Smoker Alcohol Use: none Drug Use: none Marital Status: Housing Status: lives with family Occupation Status: unemployed Allergies Coded Allergies: Doxycycline (Verified Allergy, Intermediate, SWELLING, 12/16/17) Codeine (Verified Allergy, Mild, PER PATIENT "MADE HER MARY ANNE CRAZY" WHEN SHE TOOK ALOT, 12/16/17) Sulfa Drugs (Verified Allergy, Mild, 12/16/17) Tetracycline (Verified Allergy, Mild, SWELLING TO EYES, 12/16/17) NARINDER Inhibitors (Unverified Adverse Reaction, Intermediate, cough, 12/16/17) Home Medications Scheduled Amlodipine Besylate (Amlodipine Besylate), 5 MG PO DAILY Aspirin (Aspirin Ec), 81 MG PO QPM Atorvastatin (Lipitor), 80 MG PO DAILY Cranberry (Vaccinium Macrocarp (Cranberry), 1 CAP PO DAILY Docusate Sodium (Stool Softener), 100 MG PO DAILY Home O2 Therapy (Oxygen), 2 LITERS NA HS Hydrochlorothiazide (Hydrochlorothiazide), 25 MG PO DAILY Lansoprazole (Prevacid), 30 MG PO BID Levofloxacin (Levaquin), 500 MG PO DAILY Losartan Potassium (Losartan Potassium), 25 MG PO DAILY Multiple Vitamin (Multivitamin), 1 TAB PO DAILY Pentoxifylline (Pentoxifylline ER), 400 MG PO PC Prednisone (Prednisone), 10 MG PO UD Scheduled PRN Azelastine Hcl (Astelin Nasal [place]), 1-22 SPRAYS FARSHAD BID PRN for Nasal Congestion Levalbuterol (Levalbuterol HCl), 0.63 MG NEB Q8 PRN for Wheezing Mometasone Furoate-Formoterol (Dulera 100/5 Mcg), 2 PUFFS INH BID PRN for SOB/ Wheezing Nystatin (Topical) (Nystatin), 1 APPLN TOP BID PRN for Yeast Infection Nystatin/Triamcinolone (Mycogen || ), 1 APPLN TOP UD PRN for Yeast Infection Triamcinolone Acetonide (Nasal (Nasacort Allergy 24Hr), 2 SPRAYS FASRHAD BID PRN for Allergy Symptoms Current Inpatient Medications Current Inpatient Medications Medications (Trade) Dose Ordered Sig/Michelle Route Start Time Stop Time Status Last Admin Dose Admin Heparin Sodium (Porcine) (Heparin Sq 5000 Unit/0.5ml) 5,000 unit Q8 SQ 12/16/17 22:00 01/15/18 21:59 Future Hold 12/19/17 05:04 5,000 UNIT Magnesium Hydroxide (Milk Of Magnesia Susp) 30 ml Q6H PRN PO 12/16/17 18:15 01/15/18 18:14 12/18/17 21:17 30 ML Multivitamins (Multivitamin Tab) 1 tab DAILY PO 12/17/17 08:00 01/16/18 08:59 12/19/17 08:28 1 TAB Nystatin (Mycostatin Powder) 1 appln BID PRN EXT 12/16/17 18:15 01/15/18 18:14 Nystatin/ Triamcinolone Acetonide (Mycogen II Crm) 1 appln BID PRN EXT 12/16/17 18:15 01/15/18 18:14 Pentoxifylline (Trental Tab) 400 mg PC PO 12/17/17 09:00 01/16/18 08:59 12/19/17 08:28 400 MG Pantoprazole Sodium (Protonix Tab) 40 mg BID PO 12/16/17 20:00 01/15/18 20:59 12/19/17 08:29 40 MG Prednisone (PredniSONE TAB) 50 mg DAILY PO 12/17/17 08:00 12/20/17 07:00 12/19/17 08:28 50 MG Levofloxacin 500 mg/Prmx 100 ml @ 100 mls/hr Q24H IV 12/16/17 20:00 12/20/17 09:00 12/18/17 19:42 100 MLS/HR Triamcinolone Acetonide (Nasacort Allergy 24hr) 2 sprays DAILY FARSHAD 12/17/17 13:03 01/15/18 18:14 12/19/17 08:30 2 SPRAYS Tramadol HCl (Ultram Tab) 50 mg Q4H PRN PO 12/17/17 13:15 01/16/18 13:14 Polyethylene (Miralax Powder Packet) 17 gm DAILY PRN PO 12/17/17 13:15 01/16/18 13:14 Levalbuterol (Xopenex 0.63 Mg/ 3 Ml Neb) 0.63 mg Q6R PRN INH 12/17/17 13:30 01/15/18 20:59 Mometasone Furoate/ Formoterol Fumar (Dulera 100-5 Mcg/Act) 2 puffs BID PRN INH 12/17/17 21:45 01/16/18 21:14 Ondansetron HCl (Zofran Inj) 4 mg Q8H IV 12/18/17 12:45 01/15/18 12:44 12/19/17 04:57 4 MG Promethazine HCl (Phenergan Tab) 25 mg Q6H PRN PO 12/18/17 18:45 01/17/18 18:44 12/18/17 19:20 25 MG Acetaminophen 650 mg/Empty Bag 65 ml @ 260 mls/hr Q6H PRN IV 12/19/17 11:45 01/18/18 11:44 Review of Systems Constitutional: No fever, No chills Respiratory: + cough Cardiovascular: No chest pain, No orthopnea Abdomen: + problem reported (as per HPI) Genitourinary - Female: No dysuria, No urinary frequency Endocrine: No fatigue Integumentary: No rash Physical Exam Date Time Temp Pulse Resp B/P (MAP) Pulse Ox O2 Delivery O2 Flow Rate FiO2 12/19/17 07:09 37.0 107 20 166/75 (105) 92 Room Air 12/19/17 00:00 Room Air 12/18/17 22:45 36.9 81 20 161/67 (98) 90 Room Air 12/18/17 16:00 Room Air 12/18/17 15:17 36.7 89 18 144/62 (89) 94 Room Air General Appearance: no apparent distress, + obese Head: normocephalic Neck: supple, no adenopathy Respiratory/Chest: chest non-tender, lungs clear Cardiovascular: regular rate, rhythm Abdomen/GI: normal bowel sounds, soft, + tenderness (right side), + pertinent finding (cannot identify site of hernia due to patient's body habitus) Back: no CVA tenderness Extremities/Musculoskelatal: + pedal edema Skin: normal color Laboratory Results Last 24 Hours Test 12/18/17 16:30 12/18/17 20:18 12/19/17 05:12 12/19/17 07:52 Bedside Glucose 141 mg/dl 125 mg/dl 122 mg/dl White Blood Count 13.11 K/uL Red Blood Count 4.71 M/uL Hemoglobin 13.2 g/dL Hematocrit 41.3 % Mean Corpuscular Volume 87.7 fL Mean Corpuscular Hemoglobin 28.0 pg Mean Corpuscular Hemoglobin Concent 32.0 g/dl RDW Standard Deviation 49.8 fL RDW Coefficient of Variation 15.5 % Platelet Count 265 K/uL Mean Platelet Volume 10.1 fL Sodium Level 133 mmol/L Potassium Level 3.8 mmol/L Chloride Level 96 mmol/L Carbon Dioxide Level 30 mmol/L Anion Gap 7.0 mmol/L Blood Urea Nitrogen 25 mg/dl Creatinine 0.72 mg/dl Est Creatinine Clear Calc Drug Dose 107.5 ml/min Estimated GFR () 97.7 Estimated GFR (Non- 84.3 BUN/Creatinine Ratio 34.8 Random Glucose 110 mg/dl Calcium Level 9.3 mg/dl Phosphorus Level 4.1 mg/dl Magnesium Level 2.6 mg/dl Test 12/19/17 11:51 Bedside Glucose 118 mg/dl CT SCAN OF THE ABDOMEN AND PELVIS WITHOUT CONTRAST CLINICAL HISTORY: Intermittent abdominal pain. History of abdominal surgery. Constipation. COMPARISON STUDY: No previous studies for comparison. TECHNIQUE: CT scan of the abdomen and pelvis was performed from the lung bases to the proximal femurs. Images are reviewed in the axial, sagittal, and coronal planes. IV contrast was not administered for this examination. A dose lowering technique was utilized adhering to the principles of ALARA. CT DOSE: 2129.13 mGy.cm FINDINGS: Lower chest: The heart is normal in size and configuration, without pericardial effusion. The lung bases and pleural spaces are clear. Liver: The unenhanced liver is normal in size, contour, and attenuation. There is no intrahepatic biliary ductal dilatation. Gallbladder: Not visualized and presumed surgically absent Spleen: Normal in size and attenuation. Pancreas: Unremarkable. Adrenal glands: There is a 24 mm right adrenal gland adenoma. Kidneys: There is a 4 mm left renal calculus. There is a 2.5 cm left renal cyst. There is no hydronephrosis. Bowel: There is a right-sided spigelian hernia, resulting in a small bowel obstruction. Proximal small bowel loops are dilated with multiple air-fluid levels. The bowel distal to the hernia is decompressed. Surgical consultation is recommended. There is diverticulosis. There is no acute diverticulitis. There is no evidence of acute appendicitis. Peritoneum: There is no intraperitoneal free air or abdominal ascites. Vasculature: The abdominal aorta is normal in course and caliber. Adenopathy: None. Pelvic viscera: There is a droplet of air within the bladder, likely iatrogenic. Skeletal structures: No destructive osseous lesions are seen. IMPRESSION: Right-sided spigelian hernia, with a resulting small bowel obstruction. Surgical consultation is recommended. Assessment & Plan This patient is a right sided spigelian hernia containing small bowel that is resulting in a small bowel obstruction. I explained to the patient, her and her son that repair and reduction of the hernia is indicated. I explained that she is not significantly high risk related to her comorbidities and especially her large size. She understands that. I explained the procedure and the possible complications answered her questions and she has signed a consent form. I am going to get an ultrasound prior to the procedure to nneka the site of the hernia as it is not clear as to where incision should be made at this time.
[2017-12-19] MEDS ORDERED: BUPIVACAINE 0.5 % 5 MG/1 ML MPF 30ML VIAL ONE (13:11)
[2017-12-19] MEDS ORDERED: DEXAMETHASONE SOD INJ 4 MG/ML VIAL ONE (13:32)
[2017-12-19] MEDS ORDERED: PROPOFOL IV EMULSION 10 MG/ML 20 ML VIAL IV ONE ×2 (13:32→14:43)
[2017-12-19] MEDS ORDERED: LIDOCAINE HCL 2% 2 ML VIAL (20MG/ML) ONE (13:32)
[2017-12-19] MEDS ORDERED: NEOSTIGMINE METHYLSULFATE 5 MG/5 ML SYR ONE (13:32)
[2017-12-19] MEDS ORDERED: ONDANSETRON INJ 2 MG/ML 2 ML VIAL ONE (13:32)
[2017-12-19] MEDS ORDERED: FENTANYL CITRATE INJ 50 MCG/1 ML 2 ML VIAL ONE (13:32)
[2017-12-19] MEDS ORDERED: GLYCOPYRROLATE INJ 0.2 MG/ML VIAL ONE (13:32)
--- NOTE | 2017-12-19 13:37 | DIAGNOSTIC IMAGING REPORT ---
Abdominal wall ultrasound. CLINICAL HISTORY: Preoperative hernia evaluation. COMPARISON STUDY: CT scan dated 12/19/2018 FINDINGS: Ultrasound demonstrates a bowel containing ventral hernia just superior to the umbilicus. IMPRESSION: Bowel containing supraumbilical ventral hernia. Electronically signed by: Ahmet Muhammad M.D. 12/19/2017 1:36 PM Dictated Date/Time: 12/19/2017 1:33 PM
[2017-12-19] MEDS ORDERED: ATROPINE SULFATE 0.1 MG/ML 5ML SYR IV PRN (13:45)
[2017-12-19] MEDS ORDERED: FENTANYL CITRATE INJ 50 MCG/1 ML 2 ML VIAL IV PRN (13:45)
[2017-12-19] MEDS ORDERED: EpHEDrine SULFATE INJ 50 MG/ML AMP IV PRN (13:45)
[2017-12-19] MEDS ORDERED: ONDANSETRON INJ 2 MG/ML 2 ML VIAL IV PRN (13:45)
[2017-12-19] MEDS ORDERED: ACETAMINOPHEN 325 MG TAB PO PRN (14:00)
[2017-12-19] MEDS ORDERED: SUCCINYLCHOLINE CHLORIDE 20 MG/ML 10 ML VIAL IV ONE (14:16)
[2017-12-19] MEDS ORDERED: ROCURONIUM BROMIDE 10 MG/ML 5 ML VIAL IV ONE (14:16)
[2017-12-19] MEDS ORDERED: CEFAZOLIN SOD 1 GM VIAL ONE (14:23)
--- NOTE | 2017-12-19 15:55 | [facility] Post Operative Brief Note ---
Immediate Operative Summary Operative Date Dec 19, 2017. Pre-Operative Diagnosis Ventral hernia Post-Operative Diagnosis Same as preop Procedure(s) Performed Open Ventral Hernia Repair with Mesh Surgeon Dr. Abernathy Educational Therapist Surgeon(s) None Estimated Blood Loss 20 ml Findings Consistent with Post-Op Diagnosis Specimens A. Portion of Hernia Sac Anesthesia Type General Complication(s) none Disposition Disposition: Recovery Room / PACU
[2017-12-19] MEDS ORDERED: MoRPHine SULFATE 4 MG/ML 1 ML CARP\\VIAL IV PRN (16:00)
[2017-12-19] MEDS ORDERED: ACETAMINOPHEN 1000 MG/100 ML IV IV ONE (16:11)
--- NOTE | 2017-12-19 16:22 | Anesthesiology Progress Note ---
Anesthesia Post Op Note Date & Time Dec 19, 2017 at 16:20 Vital Signs Pain Intensity: 0.0 Vital Signs Past 12 Hours Date Time Temp Pulse Resp B/P (MAP) Pulse Ox O2 Delivery O2 Flow Rate FiO2 12/19/17 08:30 94 Room Air 12/19/17 07:09 37.0 107 20 166/75 (105) 92 Room Air Notes Mental Status: alert / awake / arousable, participated in evaluation Pt Amnestic to Procedure: Yes Nausea / Vomiting: adequately controlled Pain: adequately controlled Airway Patency, RR, SpO2: stable & adequate BP & HR: stable & adequate Hydration State: stable & adequate Anesthetic Complications: no major complications apparent I spoke with Dr. Abernathy about transferring the patient to a monitored bed post-op. The patient has multiple co-morbidities and would benefit from a night in a monitored bed. Dr. Abernathy was in agreement. I spoke with the patient's family to update them on the patient's status.
[2017-12-19] MEDS ORDERED: ALUMINUM/MAGNESIUM SUSP 30 ML UDC NG SCH (16:30)
[2017-12-19] MEDS: ALUMINUM/MAGNESIUM SUSP 30 ML UDC NG SCH (20:58)
[2017-12-19] MEDS: LEVOFLOXACIN / D5W 500 MG in PREMIXED IN D5W 100 ML IV SCH (20:59)
[2017-12-20] VITALS (7 sets, daily range): BP systolic 129–164; BP diastolic 54–73; PULSE 74–86; TEMP 36.7–37.2; O2SAT 88–100; Ht 160 cm; Wt 152.4 kg
[2017-12-20] MEDS: ONDANSETRON INJ 2 MG/ML 2 ML VIAL IV SCH ×3 (05:23→20:10)
--- NOTE | 2017-12-20 06:41 | OPERATIVE REPORT ---
DATE OF OPERATION: 12/19/2017 PREOPERATIVE DIAGNOSIS: Incarcerated ventral hernia. POSTOPERATIVE DIAGNOSIS: Incarcerated ventral hernia. PROCEDURE: Repair of incarcerated ventral hernia. SURGEON: Mika Abernathy MD FINDINGS: The patient had a CAT scan what looked initially like a spigelian hernia. However, on further review of the CAT scan with ultrasound, it proved to be a ventral hernia with the fascial defect lying 4-5 cm above the umbilicus. Upon making incision, the sac was identified and the fascial defect measured about 2 cm and was in the location as described above. Despite a small ventral hernia defect, the hernia sac itself was 9 cm long and 4 cm in diameter. There were some incarcerated fat. There was bowel adherent to the inner most portion of the hernia sac near the defect but upon opening the sac, there was no other bowel noted within it. I think it had reduced after relaxation of the patient and after manipulation of the sac. There were no other defects identified. The hernia sac protruded and then extended inferiorly and was adherent to the anterior surface of the fascia and also to the dermis of the umbilical skin. TECHNIQUE: The patient was given a general anesthetic and the area was prepped and draped in usual sterile fashion. Transverse incision was made over the previously marked area and that was marked using ultrasound guidance. It was carried down through the subcutaneous tissue which was opened sequentially until the anterior most portion of the hernia sac could be identified. The subcutaneous fat was then opened laterally on each side. There was some subcutaneous tissue overlying the sac that was divided, which freed the sac. I was then able to bluntly separate the sac away from the fascia underneath. I then worked inferiorly identifying the end of the sac and dissected it carefully off the dermis of the umbilical skin freeing the sac and allowing me to elevate it. I then was able to dissect posteriorly towards the fascial defect and identified the fascial defect. The hernia sac was away from the edge of the fascia, first on the left side and then inferiorly. It became more difficult to do that superiorly and so I opened the sac carefully. There was fat adherent to the inner surface of the sac and this was all freed using blunt and sharp dissection. There was a knuckle of small bowel that protruded minimally through the opening in the fascia and that was , almost placed back in its anatomic position. The hernia sac was then closed with a running 2-0 Vicryl. Further dissection was able to be carried out superiorly and towards the right establishing a preperitoneal retrofascial plane for at least 3 cm around the circumference of the defect. A small opening was made in the hernia sac and peritoneum during that dissection and this was closed with a running 2-0 Vicryl as well. A round 10 cm mesh was then placed in the preperitoneal retrofascial position and tacked to the undersurface of the fascia using horizontal mattress sutures of 0 PDS. The hernia defect was then closed with a running #1 PDS. The subcutaneous tissue was approximated with a running 2-0 Vicryl. The skin was closed with lisa. The skin and subcutaneous area were anesthetized with 50:50 mixture of 0.5% Marcaine and 1% Xylocaine. Skin was cleansed, dried, benzoin placed, Steri-Strips applied. There was a vessel that was bleeding on the edge of the hernia sac prior to its closure and that had to be ligated with a [id number] suture of 2-0 Vicryl. The estimated blood loss was 20 mL. Sponge, needle and instrument counts were correct prior to closure. The patient tolerated the surgical procedure without complication and was transferred to recovery. I attest to the content of the Intraoperative Record and any orders documented therein. Any exception s are noted below.
[2017-12-20] MEDS: PANTOprazole SOD 40 MG TAB PO SCH ×2 (07:41→20:10)
[2017-12-20] MEDS: MULTIVITAMIN TAB PO SCH (07:41)
[2017-12-20 07:49] LABS: HEMOGLOBIN 11.8 g/dL (12.0-16.0); MEAN CELL VOLUME 88.3 fL (80-100); MEAN CORPUSCULAR HEMOGLOBIN 28.2 pg (25-34); MEAN CORPUSCULAR HGB CONC 31.9 g/dl (32-36); MEAN PLATELET VOLUME 9.6 fL (7.4-10.4); PLATELET COUNT 215 K/uL (130-400); RED CELL DISTRIBUTION WIDTH CV 15.7 % (11.5-14.5); RED CELL DISTRIBUTION WIDTH SD 50.3 fL (36.4-46.3); WHITE BLOOD COUNT 12.58 K/uL (4.8-10.8)
[2017-12-20] MEDS: ALUMINUM/MAGNESIUM SUSP 30 ML UDC NG SCH ×4 (07:51→20:10)
[2017-12-20] MEDS: TRIAMCINOLONE ACET NASAL SPRAY 10.8ML BTL NAE SCH (07:51)
[2017-12-20 08:08] LABS: CALCIUM 8.6 mg/dl (8.5-10.1); CREATININE 0.72 mg/dl (0.60-1.20); POTASSIUM 3.8 mmol/L (3.5-5.1)
--- NOTE | 2017-12-20 09:03 | Surgery Progress Note ---
Surgery Progress Note Date of Service Dec 20, 2017. Subjective Post OP Day: 1 (s/p repair of ventral hernia with mesh) sore throat due to nasal drainage and NGT no abdominal pain, chest pain, or shortness of breath Slight burning at incision site and areas of tape + flatus, small amounts, no bowel movement Objective Vital Signs: Date Time Temp Pulse Resp B/P (MAP) Pulse Ox O2 Delivery O2 Flow Rate FiO2 12/20/17 07:53 36.7 80 20 157/66 (96) 95 Room Air 12/20/17 04:00 36.7 82 20 156/63 (94) 96 Nasal Cannula 2.0 12/20/17 04:00 Nasal Cannula 2.0 12/20/17 00:00 Nasal Cannula 2.0 12/19/17 23:36 36.8 76 22 154/75 (101) 98 Nasal Cannula 2.0 12/19/17 20:00 Nasal Cannula 2.0 12/19/17 18:00 36.5 103 18 126/85 (99) 94 Nasal Cannula 4.0 12/19/17 17:30 36.8 103 18 160/71 (100) 94 Nasal Cannula 4.0 12/19/17 17:13 97 Nasal Cannula 4.0 12/19/17 17:09 97 Nasal Cannula 4.0 12/19/17 17:08 36.8 102 18 169/65 (99) 97 Nasal Cannula 4.0 12/19/17 16:40 101 20 162/62 98 Nasal Cannula 5 Oxymask 12/19/17 16:30 37.0 119 20 160/86 97 Nasal Cannula 5 Oxymask 12/19/17 16:20 103 20 164/78 99 Nasal Cannula 5 Oxymask 12/19/17 16:10 111 20 180/82 98 Oxymask 10 12/19/17 16:00 36.8 107 20 161/80 92 Oxymask 10 Physical Exam: nasogastric drainage (thick brown output, cobb with farheen urine present) General Appearance: no apparent distress, + obese Head: normocephalic, atraumatic Neck: trachea midline Respiratory/Chest: no respiratory distress, no accessory muscle use Abdomen: non distended, soft, no organomegaly, no pulsatile mass, + pertinent finding (incision with lisa present, mild erythema at tape edges) Incision(s): clean, dry, intact, no erythema, no drainage, findings (lisa present and intact) Laboratory Results: Results Past 24 Hours Test 12/19/17 11:51 12/19/17 16:52 12/19/17 20:20 12/20/17 07:36 Range/Units Bedside Glucose 118 135 134 70-90 mg/dl White Blood Count 12.58 4.8-10.8 K/uL Red Blood Count 4.19 4.2-5.4 M/uL Hemoglobin 11.8 12.0-16.0 g/dL Hematocrit 37.0 37-47 % Mean Corpuscular Volume 88.3 80-100 fL Mean Corpuscular Hemoglobin 28.2 25-34 pg Mean Corpuscular Hemoglobin Concent 31.9 32-36 g/dl RDW Standard Deviation 50.3 36.4-46.3 fL RDW Coefficient of Variation 15.7 11.5-14.5 % Platelet Count 215 130-400 K/uL Mean Platelet Volume 9.6 7.4-10.4 fL Sodium Level 138 136-145 mmol/L Potassium Level 3.8 3.5-5.1 mmol/L Chloride Level 98 98-107 mmol/L Carbon Dioxide Level 35 21-32 mmol/L Anion Gap 4.0 3-11 mmol/L Blood Urea Nitrogen 21 7-18 mg/dl Creatinine 0.72 0.60-1.20 mg/dl Est Creatinine Clear Calc Drug Dose 103.4 ml/min Estimated GFR () 97.7 Estimated GFR (Non- 84.3 BUN/Creatinine Ratio 29.6 10-20 Random Glucose 106 70-99 mg/dl Calcium Level 8.6 8.5-10.1 mg/dl Assessment & Plan POD # 1 s/p ventral hernia repair with mesh -vitals stable - NGT with 400 cc of thick brown output last shift - + flatus, no bowel movement - incision clean/dry/intact, no erythema, mild reaction to Medipore tape. Plan: Continue current management with NGT to LIS, NPO, IV pain medications as needed Continue Cobb catheter, possible d/c later today or tomorrow morning replace dressing with paper tape and 4x4 will evaluate later this afternoon Patient seen with Dr. Abernathy 7:00 pm OOB sitting up in wheelchair Passing more flatus, no nausea or vomiting taking in ice chips and sips without difficulty Plan: - discontinue NGT, may have ice chips and sips - keep Cobb until tomorrow morning - repeat am labs - continue IV pain management as needed Dr. Abernathy has seen pt agrees with above
--- NOTE | 2017-12-20 12:09 | Clinical Documentation Query ---
JEAN Tinajero : CLINICAL DOCUMENTATION QUERY Patient is a 72 year old female initially admitted for acute bronchitis. On 12/19, CT of the abdomen was obtained secondary to abdominal pain, constipation, and nausea. Underwent open repair of incarcerated ventral hernia. Consultation order and CT make note of SBO in this setting. Unfortunately, coding cannot capture this information from radiology reports or orders. As appropriate, consider explicit documentation as suggested below. Thank you. In your clinical opinion is this patient being managed for: (x ) Small bowel obstruction secondary to incarcerated ventral hernia ( ) Not Agree ( ) Other explanation of clinical findings (Please Explain) ( ) Unable to determine (Please Define) ( ) Need to Discuss The medical record reflects the following clinical findings, treatment, and risk factors. Clinical Indicators: As above Treatment: Surgical consultation, open repair of ventral hernia Risk Factors: As above Please clarify and document your clinical opinion in the progress notes and discharge summary. Terms such as "probable", "suspected", "likely", "questionable", "possible", or "still to be ruled out" are acceptable. IF IN AGREEMENT, YOU MUST DOCUMENT ABOVE DIAGNOSTIC STATEMENT IN DAILY PROGRESS NOTES AND DISCHARGE SUMMARY. This document is not part of the patient's record. Thank You, Gerald Leon, RN [phone]
[2017-12-20] MEDS: SODIUM CHLORIDE 0.9% 1000ML 1,000 ML IV SCH ×2 (17:08→23:03)
[2017-12-20] MEDS: MOMETASONE/FORMOTEROL (DULERA) INH INH PRN (20:07)
--- NOTE | 2017-12-20 21:56 | Progress Note ---
Medicine Progress Note Date & Time of Visit: Dec 20, 2017 at 15:36. Subjective 72-year-old female with 3 weeks of coughing which continues to improve. She initially reported some generalized abdominal discomfort related to severe coughing that was periumbilical when she was admitted. For 2 days this had resolved, however, yesterday she reported a right abdominal pressure that was nonspecific. She reported she was not having stool but also was not passing gas and she still was not quite tolerating p.o. completely. She had a CT scan revealing an incarcerated bowel causing a small bowel obstruction and was immediately taken to the OR for reduction of this. She had an NG tube placed postoperatively and is recovering in the PCU doing well overnight. She is currently denying any pain. Objective Last 8 Hrs Date Time Temp Pulse Resp B/P (MAP) Pulse Ox O2 Delivery O2 Flow Rate FiO2 12/20/17 15:06 36.8 86 18 154/71 (98) 93 Room Air 12/20/17 13:17 Room Air 12/20/17 11:34 36.9 74 20 164/73 (103) 97 Nasal Cannula 2.0 12/20/17 09:46 88 12/20/17 08:15 Room Air 12/20/17 07:53 36.7 80 20 157/66 (96) 95 Room Air Physical Exam: GEN: obese, in no acute distress, alert and appropriate HEENT: NC/AT, normal sclerae, MMM, NGT in place CARDIO: reg rate, S1/2 heard without m/g/r LUNGS: CTA bilaterally, no crackles, rales or wheezes, good diaphragmatic excursion ABD: soft, nontender, horizontal incision centrally that is stapled and healing well without erythema or drainage. Large pannus , non-distended, no rebound or guarding, +BS EXTREMITY: RP and DP palpable 2+ bilat, no LE swelling or edema, extremities are warm and well-perfused NEURO: CN 2-12 grossly intact MUSC: generalized weakness but no focal deficits. SKIN: warm and dry Laboratory Results: 12/20/17 07:36 12/20/17 07:36 Test 12/16/17 15:50 12/17/17 06:45 12/19/17 05:12 12/19/17 20:20 Immature Granulocyte % (Auto) 0.4 % White Blood Count 12.71 K/uL (4.8-10.8) Red Blood Count 4.63 M/uL (4.2-5.4) Hemoglobin 12.9 g/dL (12.0-16.0) Hematocrit 40.6 % (37-47) Mean Corpuscular Volume 87.7 fL (80-100) Mean Corpuscular Hemoglobin 27.9 pg (25-34) Mean Corpuscular Hemoglobin Concent 31.8 g/dl (32-36) Platelet Count 306 K/uL (130-400) Mean Platelet Volume 9.3 fL (7.4-10.4) Neutrophils (%) (Auto) 77.5 % Lymphocytes (%) (Auto) 13.7 % Monocytes (%) (Auto) 8.0 % Eosinophils (%) (Auto) 0.2 % Basophils (%) (Auto) 0.2 % Neutrophils # (Auto) 9.86 K/uL (1.4-6.5) Lymphocytes # (Auto) 1.74 K/uL (1.2-3.4) Monocytes # (Auto) 1.02 K/uL (0.11-0.59) Eosinophils # (Auto) 0.02 K/uL (0-0.5) Basophils # (Auto) 0.02 K/uL (0-0.2) Immature Granulocyte # (Auto) 0.05 K/uL (0.00-0.02) Prothrombin Time 10.7 SECONDS (9.0-12.0) Prothromb Time International Ratio 1.0 (0.9-1.1) Activated Partial Thromboplast Time 24.4 SECONDS (21.0-31.0) Partial Thromboplastin Ratio 0.9 Total Bilirubin 0.6 mg/dl (0.2-1) Aspartate Amino Transf (AST/SGOT) 14 U/L (15-37) Alanine Aminotransferase (ALT/SGPT) 23 U/L (12-78) Alkaline Phosphatase 137 U/L (45-117) Troponin I < 0.015 ng/ml (0-0.045) Pro-B-Type Natriuretic Peptide 127 pg/ml (0-900) Total Protein 7.2 gm/dl (6.4-8.2) Albumin 3.3 gm/dl (3.4-5.0) Globulin 3.9 gm/dl (2.5-4.0) Albumin/Globulin Ratio 0.8 (0.9-2) Urine Color DK YELLOW Urine Appearance CLEAR (CLEAR) Urine pH 5.0 (4.5-7.5) Urine Specific [employer] 1.029 (1.000-1.030) Urine Protein NEG (NEG) Urine Glucose (UA) NEG (NEG) Urine Ketones TRACE (NEG) Urine Occult Blood NEG (NEG) Urine Nitrite NEG (NEG) Urine Bilirubin NEG (NEG) Urine Urobilinogen NEG (NEG) Urine Leukocyte Esterase NEG (NEG) Phosphorus Level 4.1 mg/dl (2.5-4.9) Magnesium Level 2.6 mg/dl (1.8-2.4) Bedside Glucose 134 mg/dl (70-90) Test 12/20/17 07:36 Red Blood Count 4.19 M/uL (4.2-5.4) Mean Corpuscular Volume 88.3 fL (80-100) Mean Corpuscular Hemoglobin 28.2 pg (25-34) Mean Corpuscular Hemoglobin Concent 31.9 g/dl (32-36) RDW Standard Deviation 50.3 fL (36.4-46.3) RDW Coefficient of Variation 15.7 % (11.5-14.5) Mean Platelet Volume 9.6 fL (7.4-10.4) Anion Gap 4.0 mmol/L (3-11) Est Creatinine Clear Calc Drug Dose 103.4 ml/min Estimated GFR () 97.7 Estimated GFR (Non- 84.3 BUN/Creatinine Ratio 29.6 (10-20) Calcium Level 8.6 mg/dl (8.5-10.1) Date/Time Source Procedure Growth Status 12/19/17 00:00 Sputum Expectorated Sputum Gram Stain - Final Resulted 12/19/17 00:00 Sputum Expectorated Sputum Sputum Culture - Preliminary HEAVY NORMAL ROBE Present, Final Rep... Resulted Last 24 Hours Test 12/19/17 16:52 12/19/17 20:20 12/20/17 07:36 Bedside Glucose 135 mg/dl 134 mg/dl White Blood Count 12.58 K/uL Red Blood Count 4.19 M/uL Hemoglobin 11.8 g/dL Hematocrit 37.0 % Mean Corpuscular Volume 88.3 fL Mean Corpuscular Hemoglobin 28.2 pg Mean Corpuscular Hemoglobin Concent 31.9 g/dl RDW Standard Deviation 50.3 fL RDW Coefficient of Variation 15.7 % Platelet Count 215 K/uL Mean Platelet Volume 9.6 fL Sodium Level 138 mmol/L Potassium Level 3.8 mmol/L Chloride Level 98 mmol/L Carbon Dioxide Level 35 mmol/L Anion Gap 4.0 mmol/L Blood Urea Nitrogen 21 mg/dl Creatinine 0.72 mg/dl Est Creatinine Clear Calc Drug Dose 103.4 ml/min Estimated GFR () 97.7 Estimated GFR (Non- 84.3 BUN/Creatinine Ratio 29.6 Random Glucose 106 mg/dl Calcium Level 8.6 mg/dl Assessment & Plan 72-year-old female with 3 weeks of coughing which continues to improve. She initially reported some generalized abdominal discomfort related to severe coughing that was periumbilical when she was admitted. For 2 days this had resolved, however, yesterday she reported a right abdominal pressure that was nonspecific. She reported she was not having stool but also was not passing gas and she still was not quite tolerating p.o. completely. She had a CT scan revealing an incarcerated bowel causing a small bowel obstruction and was immediately taken to the OR for reduction of this. She had an NG tube placed postoperatively and is recovering in the PCU doing well overnight. She is currently denying any pain. 1. Small bowel obstruction secondary to incarcerated ventral hernia-status post repair of incarcerated ventral hernia yesterday. Doing well with NG tube in place and 400 cc output overnight. Denies pain. Continue per surgical racks. 2. Bronchitis-coughing is continuing to improve. Prednisone and Levaquin were stopped after 5 day course completed. No wheezing on exam. Breathing is stable. Patient does have some postnasal drip that was persistent and is still clearing secretions. NG tube in place is causing this to be somewhat of an issue. 3. Severe GERD-Protonix twice daily. Tums as needed recliner chair ordered to keep her more upright per her request. Records reveal an upper esophageal web in the history which patient is not aware of; she may need outpatient EGD after her bronchitis symptoms and area. 4. 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 Heparin preferred for better absorption with body habitus. 5. Diabetes mellitus type 2-diet controlled, stopping insulin sliding scale and fingersticks at this time as she has been controlled without coverage for the past several days despite prednisone use. 6. Hypertension-blood pressure stable, continue Cozaar and HCTZ. Patient is uncomfortable and therefore blood pressure is somewhat elevated. Continue to monitor. DVT prophylaxis-subcu heparin Full code Disposition-continue hospitalization until patient is reliably tolerating food and feeling improved. Grisel Lino DO [facility] hospitalist Consultants: Michela-surgery Current Inpatient Medications: Current Inpatient Medications Medications (Trade) Dose Ordered Sig/Michelle Route Start Time Stop Time Status Last Admin Dose Admin Heparin Sodium (Porcine) (Heparin Sq 5000 Unit/0.5ml) 5,000 unit Q8 SQ 12/16/17 22:00 01/15/18 21:59 Future Hold 12/19/17 05:04 5,000 UNIT Magnesium Hydroxide (Milk Of Magnesia Susp) 30 ml Q6H PRN PO 12/16/17 18:15 01/15/18 18:14 12/18/17 21:17 30 ML Multivitamins (Multivitamin Tab) 1 tab DAILY PO 12/17/17 08:00 01/16/18 08:59 12/19/17 08:28 1 TAB Nystatin (Mycostatin Powder) 1 appln BID PRN EXT 12/16/17 18:15 01/15/18 18:14 Nystatin/ Triamcinolone Acetonide (Mycogen II Crm) 1 appln BID PRN EXT 12/16/17 18:15 01/15/18 18:14 Pantoprazole Sodium (Protonix Tab) 40 mg BID PO 12/16/17 20:00 01/15/18 20:59 12/19/17 20:59 40 MG Triamcinolone Acetonide (Nasacort Allergy 24hr) 2 sprays DAILY FARSHAD 12/17/17 13:03 01/15/18 18:14 12/20/17 07:51 2 SPRAYS Tramadol HCl (Ultram Tab) 50 mg Q4H PRN PO 12/17/17 13:15 01/16/18 13:14 Polyethylene (Miralax Powder Packet) 17 gm DAILY PRN PO 12/17/17 13:15 01/16/18 13:14 Levalbuterol (Xopenex 0.63 Mg/ 3 Ml Neb) 0.63 mg Q6R PRN INH 12/17/17 13:30 01/15/18 20:59 Mometasone Furoate/ Formoterol Fumar (Dulera 100-5 Mcg/Act) 2 puffs BID PRN INH 12/17/17 21:45 01/16/18 21:14 Ondansetron HCl (Zofran Inj) 4 mg Q8H IV 12/18/17 12:45 01/15/18 12:44 12/20/17 12:31 4 MG Promethazine HCl (Phenergan Tab) 25 mg Q6H PRN PO 12/18/17 18:45 01/17/18 18:44 12/18/17 19:20 25 MG Acetaminophen 650 mg/Empty Bag 65 ml @ 260 mls/hr Q6H PRN IV 12/19/17 11:45 01/18/18 11:44 Morphine Sulfate (MoRPHine SULFATE INJ) 4 mg Q1H PRN IV 12/19/17 16:00 01/02/18 15:59 Al Hydroxide/Mg Hydroxide (Maalox Susp) 30 ml QID NG 12/19/17 20:00 01/18/18 19:59 12/20/17 12:31 30 ML
[2017-12-20] MEDS: HEPARIN SOD 5000 UNIT/0.5 ML CARP SQ SCH (22:00)
[2017-12-21 03:20] VITALS: BP 180/64; PULSE 75; TEMP 36.7; O2SAT 96
[2017-12-21] MEDS: SODIUM CHLORIDE 0.9% 1000ML 1,000 ML IV SCH ×2 (05:27→12:52)
[2017-12-21] MEDS: ONDANSETRON INJ 2 MG/ML 2 ML VIAL IV SCH ×3 (05:27→20:05)
[2017-12-21] MEDS: HEPARIN SOD 5000 UNIT/0.5 ML CARP SQ SCH ×3 (05:28→21:13)
[2017-12-21 07:17] VITALS: BP 144/79; PULSE 114; TEMP 36.7; O2SAT 93
[2017-12-21] MEDS ORDERED: BISACODYL 10 MG SUPP PR STA (07:20)
--- NOTE | 2017-12-21 07:20 | Surgery Progress Note ---
Surgery Progress Note Date of Service Dec 21, 2017. Subjective Post OP Day: 1 + feeling well, + flatus, + diet (tolerated no NGT), No bowel movement, No nausea, No vomiting Objective Vital Signs: Date Time Temp Pulse Resp B/P (MAP) Pulse Ox O2 Delivery O2 Flow Rate FiO2 12/21/17 04:00 Room Air 12/21/17 03:20 36.7 75 20 180/64 (102) 96 Nasal Cannula 2.0 12/21/17 00:00 Room Air 12/20/17 23:05 36.8 74 20 129/72 (91) 100 Room Air 12/20/17 20:00 Room Air 12/20/17 19:38 37.2 83 16 133/54 (80) 92 Room Air 12/20/17 15:15 Room Air 12/20/17 15:06 36.8 86 18 154/71 (98) 93 Room Air 12/20/17 13:17 Room Air 12/20/17 11:34 36.9 74 20 164/73 (103) 97 Nasal Cannula 2.0 12/20/17 09:46 88 12/20/17 08:15 Room Air 12/20/17 07:53 36.7 80 20 157/66 (96) 95 Room Air Abdomen: normal bowel sounds, non distended, soft Incision(s): clean, dry, intact, no erythema, no drainage Laboratory Results: Results Past 24 Hours Test 12/20/17 07:36 12/21/17 06:02 Range/Units White Blood Count 12.58 4.8-10.8 K/uL Red Blood Count 4.19 4.2-5.4 M/uL Hemoglobin 11.8 12.0-16.0 g/dL Hematocrit 37.0 37-47 % Mean Corpuscular Volume 88.3 80-100 fL Mean Corpuscular Hemoglobin 28.2 25-34 pg Mean Corpuscular Hemoglobin Concent 31.9 32-36 g/dl RDW Standard Deviation 50.3 36.4-46.3 fL RDW Coefficient of Variation 15.7 11.5-14.5 % Platelet Count 215 130-400 K/uL Mean Platelet Volume 9.6 7.4-10.4 fL Sodium Level 138 136-145 mmol/L Potassium Level 3.8 3.5-5.1 mmol/L Chloride Level 98 98-107 mmol/L Carbon Dioxide Level 35 21-32 mmol/L Anion Gap 4.0 3-11 mmol/L Blood Urea Nitrogen 21 7-18 mg/dl Creatinine 0.72 0.60-1.20 mg/dl Est Creatinine Clear Calc Drug Dose 103.4 ml/min Estimated GFR () 97.7 Estimated GFR (Non- 84.3 BUN/Creatinine Ratio 29.6 10-20 Random Glucose 106 70-99 mg/dl Calcium Level 8.6 8.5-10.1 mg/dl Assessment & Plan S/P repair of incarcerated ventral hernia Doing well Peristalsis has returned Can start clear liquids today Will give suppository to try to stimulate bm
[2017-12-21 07:39] LABS: CALCIUM 8.5 mg/dl (8.5-10.1); CREATININE 0.57 mg/dl (0.60-1.20); POTASSIUM 3.4 mmol/L (3.5-5.1)
[2017-12-21] MEDS: MOMETASONE/FORMOTEROL (DULERA) INH INH PRN ×2 (07:39→22:27)
[2017-12-21] MEDS: TRIAMCINOLONE ACET NASAL SPRAY 10.8ML BTL NAE SCH (07:40)
[2017-12-21 07:41] LABS: HEMATOCRIT 37.3 % (37-47); HEMOGLOBIN 11.5 g/dL (12.0-16.0); MEAN CELL VOLUME 90.1 fL (80-100); MEAN CORPUSCULAR HEMOGLOBIN 27.8 pg (25-34); MEAN CORPUSCULAR HGB CONC 30.8 g/dl (32-36); MEAN PLATELET VOLUME 10.3 fL (7.4-10.4); PLATELET COUNT 209 K/uL (130-400); RED CELL DISTRIBUTION WIDTH CV 15.9 % (11.5-14.5); WHITE BLOOD COUNT 9.85 K/uL (4.8-10.8)
[2017-12-21] MEDS ORDERED: POTASSIUM CHLORIDE 10 MEQ TABCR PO STA (07:43)
[2017-12-21] MEDS: ALUMINUM/MAGNESIUM SUSP 30 ML UDC NG SCH ×4 (08:12→20:09)
[2017-12-21] MEDS: MULTIVITAMIN TAB PO SCH (08:19)
[2017-12-21] MEDS: PANTOprazole SOD 40 MG TAB PO SCH ×2 (08:19→20:06)
[2017-12-21] MEDS ORDERED: METOPROLOL TARTRATE 1 MG/ML VIAL IV PRN (08:30)
--- NOTE | 2017-12-21 09:53 | DIAGNOSTIC IMAGING REPORT ---
CHEST ONE VIEW PORTABLE HISTORY: Short of breath. congestion COMPARISON: Chest 12/16/2017. FINDINGS: There are low lung lines. The heart remains mildly enlarged. Stable blunting of the left lateral costophrenic sulcus and bibasilar linear densities. Mild central pulmonary vascular congestion without overt edema. No new focal lung consolidations. No pneumothorax. IMPRESSION: 1. Stable cardiomegaly with mild pulmonary vascular congestion. 2. Stable blunting of the left lateral costophrenic sulcus which may be due to chronic scarring or trace pleural fluid. Electronically signed by: Catracho Chatman M.D. 12/21/2017 9:52 AM Dictated Date/Time: 12/21/2017 9:50 AM
[2017-12-21] MEDS ORDERED: POTASSIUM CHLORIDE 10 MEQ TABCR PO ONE (11:00)
[2017-12-21] MEDS ORDERED: FUROSEMIDE INJ 20 MG in SYRINGE 0 ML IV ONE (11:15)
[2017-12-21 11:31] VITALS: BP 116/69; TEMP 36.5; O2SAT 91
[2017-12-21] MEDS: GUAIFENESIN 600 MG TABCR PO SCH ×2 (12:49→20:05)
[2017-12-21 15:23] VITALS: BP 138/69; PULSE 78; TEMP 36.7; O2SAT 93
--- NOTE | 2017-12-21 19:06 | Progress Note ---
Internal Med Progress Note Date of Service: Dec 21, 2017. Provider Documentation: SUBJECTIVE: sitting on the chair comfortably tolerating liquid diet sob on exertion no nausea or abdominal pain no chest pain afebrile OBJECTIVE: Vital Signs-as noted below Exam: General-alert and oriented. Not in distress. Obese ENT-normal hearing. Neck-No neck masses Lungs-CTA b/l no wheezing or crackles Heart-S1 and S2 heard regular rate and rhythm no murmurs Abdomen-soft Bowels sounds present surgical sutures seen and clean non tender no distension Extremities-lower extremity edema present no erythema Neuro-alert and oriented moves extremities Lab data as noted below. ASSESSMENT & PLAN: 72-year-old female presented with SBO secondary to incarcerated ventral hernia s/p repair. 1. Small bowel obstruction secondary to incarcerated ventral hernia-status post repair. Off of NG tube. Tolerating liquid diet. appreciate surgery inputs. continue to monitor. 2. Bronchitis-coughing is continuing to improve. completed Prednisone and Levaquin . still has post nasal drip other segura doing ok. 3. Severe GERD-Protonix twice daily. 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 4. 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 5. Tachycardia with PAC's resolved. will monitor 6. Diabetes mellitus type 2-diet controlled, stopped insulin sliding scale and fingersticks at this time as she has been controlled without coverage for the past several days despite prednisone use.Will check hba1c. 7. Hypertension-On Cozaar and HCTZ. Patient is uncomfortable and therefore blood pressure is somewhat elevated. Continue to monitor. DVT prophylaxis-subcu heparin. Full code. Disposition-to be determined. Vital Signs: Date Time Temp Pulse Resp B/P (MAP) Pulse Ox O2 Delivery O2 Flow Rate FiO2 12/21/17 16:00 Room Air 12/21/17 15:23 36.7 78 20 138/69 (92) 93 Room Air 12/21/17 12:00 Room Air 12/21/17 11:31 36.5 18 116/69 (85) 91 Room Air 12/21/17 08:00 Room Air 12/21/17 07:17 36.7 114 18 144/79 (100) 93 Room Air 12/21/17 04:00 Room Air 12/21/17 03:20 36.7 75 20 180/64 (102) 96 Nasal Cannula 2.0 12/21/17 00:00 Room Air 12/20/17 23:05 36.8 74 20 129/72 (91) 100 Room Air 12/20/17 20:00 Room Air 12/20/17 19:38 37.2 83 16 133/54 (80) 92 Room Air Lab Results: Results Past 24 Hours Test 12/21/17 06:02 12/21/17 16:01 Range/Units White Blood Count 9.85 4.8-10.8 K/uL Red Blood Count 4.14 4.2-5.4 M/uL Hemoglobin 11.5 12.0-16.0 g/dL Hematocrit 37.3 37-47 % Mean Corpuscular Volume 90.1 80-100 fL Mean Corpuscular Hemoglobin 27.8 25-34 pg Mean Corpuscular Hemoglobin Concent 30.8 32-36 g/dl RDW Standard Deviation 52.0 36.4-46.3 fL RDW Coefficient of Variation 15.9 11.5-14.5 % Platelet Count 209 130-400 K/uL Mean Platelet Volume 10.3 7.4-10.4 fL Sodium Level 139 136-145 mmol/L Potassium Level 3.4 3.5-5.1 mmol/L Chloride Level 99 98-107 mmol/L Carbon Dioxide Level 33 21-32 mmol/L Anion Gap 6.0 3-11 mmol/L Blood Urea Nitrogen 16 7-18 mg/dl Creatinine 0.57 0.60-1.20 mg/dl Est Creatinine Clear Calc Drug Dose 129.9 ml/min Estimated GFR () 108.1 Estimated GFR (Non- 93.3 BUN/Creatinine Ratio 28.1 10-20 Random Glucose 100 70-99 mg/dl Calcium Level 8.5 8.5-10.1 mg/dl Bedside Glucose 117 70-90 mg/dl
[2017-12-21] MEDS ORDERED: LORATADINE 10 MG TAB PO ONE (19:30)
[2017-12-21 19:40] VITALS: BP 148/73; TEMP 36.9; O2SAT 94
[2017-12-21 23:32] VITALS: BP 131/42; PULSE 79; TEMP 37.1; O2SAT 98
[2017-12-22] VITALS (9 sets, daily range): BP systolic 116–175; BP diastolic 57–76; PULSE 74–90; TEMP 36.7–37; O2SAT 94–98
[2017-12-22] MEDS: SODIUM CHLORIDE 0.9% 1000ML 1,000 ML IV SCH (01:15)
[2017-12-22] MEDS: ONDANSETRON INJ 2 MG/ML 2 ML VIAL IV SCH ×3 (05:40→20:30)
[2017-12-22] MEDS: HEPARIN SOD 5000 UNIT/0.5 ML CARP SQ SCH ×3 (05:41→21:09)
[2017-12-22] MEDS: PANTOprazole SOD 40 MG TAB PO SCH ×2 (07:43→21:06)
[2017-12-22] MEDS: GUAIFENESIN 600 MG TABCR PO SCH ×2 (07:43→21:05)
[2017-12-22] MEDS: TRIAMCINOLONE ACET NASAL SPRAY 10.8ML BTL NAE SCH (07:44)
[2017-12-22] MEDS: MULTIVITAMIN TAB PO SCH (07:44)
[2017-12-22] MEDS: ALUMINUM/MAGNESIUM SUSP 30 ML UDC NG SCH ×4 (07:44→20:31)
--- NOTE | 2017-12-22 07:44 | Surgery Progress Note ---
Surgery Progress Note Date of Service Dec 22, 2017. Subjective Post OP Day: 2 + feeling well, + bowel movement, + flatus, + pain controlled, + diet ( tolerated clear liquids), No nausea, No vomiting Objective Vital Signs: Date Time Temp Pulse Resp B/P (MAP) Pulse Ox O2 Delivery O2 Flow Rate FiO2 12/22/17 07:30 36.7 78 20 175/69 (104) 98 Room Air 12/22/17 04:36 36.8 74 22 141/57 (85) 97 Nasal Cannula 3.0 12/22/17 04:00 Room Air 12/22/17 00:00 Room Air 12/21/17 23:32 37.1 79 21 131/42 (71) 98 Nasal Cannula 2.0 12/21/17 20:24 Room Air 12/21/17 19:40 36.9 20 148/73 (98) 94 Room Air 12/21/17 16:00 Room Air 12/21/17 15:23 36.7 78 20 138/69 (92) 93 Room Air 12/21/17 12:00 Room Air 12/21/17 11:31 36.5 18 116/69 (85) 91 Room Air 12/21/17 08:00 Room Air Abdomen: normal bowel sounds, non tender, non distended, soft Incision(s): clean, dry, intact, no erythema, no drainage Laboratory Results: Results Past 24 Hours Test 12/21/17 16:01 12/22/17 06:39 12/22/17 07:27 Range/Units Bedside Glucose 117 70-90 mg/dl Assessment & Plan S/P repair of incarcerated ventral hernia Doing well Peristalsis has returned, bowels moving Can advance to soft diet today
[2017-12-22 07:57] LABS: BASO % 0.3 %; BASO ABS # 0.02 K/uL (0-0.2); EOS % 2.3 %; EOS ABS # 0.18 K/uL (0-0.5); HEMATOCRIT 34.5 % (37-47); HEMOGLOBIN 10.8 g/dL (12.0-16.0); IG# 0.09 K/uL (0.00-0.02); LYMPH % 20.2 %; LYMPH ABS # 1.57 K/uL (1.2-3.4); MEAN CELL VOLUME 89.6 fL (80-100); MEAN CORPUSCULAR HEMOGLOBIN 28.1 pg (25-34); MEAN CORPUSCULAR HGB CONC 31.3 g/dl (32-36); MEAN PLATELET VOLUME 10.3 fL (7.4-10.4); MONO % 9.4 %; MONO ABS # 0.73 K/uL (0.11-0.59); NEUT % 66.6 %; NEUT ABS # 5.19 K/uL (1.4-6.5); PLATELET COUNT 197 K/uL (130-400); RED CELL DISTRIBUTION WIDTH CV 16.1 % (11.5-14.5); RED CELL DISTRIBUTION WIDTH SD 52.4 fL (36.4-46.3); WHITE BLOOD COUNT 7.78 K/uL (4.8-10.8)
[2017-12-22 08:09] LABS: CALCIUM 8.5 mg/dl (8.5-10.1); CREATININE 0.52 mg/dl (0.60-1.20); POTASSIUM 3.8 mmol/L (3.5-5.1)
[2017-12-22] MEDS: LOSARTAN POTASSIUM 25 MG TAB PO SCH (09:16)
[2017-12-22] MEDS: AMLODIPINE BESYLATE 5 MG TAB PO SCH (09:16)
[2017-12-22] MEDS: HYDROCHLOROTHIAZIDE 25 MG TAB PO SCH (09:16)
[2017-12-22 09:31] LABS: HEMOGLOBIN A1C 6.1 % (4.5-5.6)
[2017-12-22] MEDS: MOMETASONE/FORMOTEROL (DULERA) INH INH PRN (12:32)
--- NOTE | 2017-12-22 16:48 | Progress Note ---
Internal Med Progress Note Date of Service: Dec 22, 2017. Provider Documentation: SUBJECTIVE: sitting on the chair comfortably tolerating soft diet moved bowels no abdominal pain or nausea no sob or chest pain likes to walk before discharged OBJECTIVE: Vital Signs-as noted below Exam: General-alert and oriented. Not in distress. Obese ENT-normal hearing. Neck-No neck masses Lungs-CTA b/l no wheezing or crackles Heart-S1 and S2 heard regular rate and rhythm no murmurs Abdomen-soft Bowels sounds present surgical sutures seen and clean non tender no distension Extremities-lower extremity edema present no erythema Neuro-alert and oriented moves extremities Lab data as noted below. ASSESSMENT & PLAN: 72-year-old female presented with SBO secondary to incarcerated ventral hernia s/p repair. 1. Small bowel obstruction secondary to incarcerated ventral hernia-status post repair. Off of NG tube. Tolerating soft diet.moved bowels appreciate surgery inputs. continue to monitor.stable 2. Bronchitis-coughing is continuing to improve. completed Prednisone and Levaquin . still has post nasal drip other segura doing ok.will give zyrtec. 3. Severe GERD-Protonix twice daily. 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 4. 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 5. Tachycardia with PAC's resolved. will monitor stable 6. Diabetes mellitus type 2-diet controlled, stopped insulin sliding scale and fingersticks at this time as she has been controlled without coverage for the past several days despite prednisone use. hba1c 6.1 7. Hypertension-On Cozaar and HCTZ. Patient is uncomfortable and therefore blood pressure is somewhat elevated. Continue to monitor. DVT prophylaxis-subcu heparin. Full code. Disposition-transfer to medical floor pt/ot possible d/c in am Vital Signs: Date Time Temp Pulse Resp B/P (MAP) Pulse Ox O2 Delivery O2 Flow Rate FiO2 12/22/17 15:30 37.0 80 20 149/65 (93) 95 Room Air 12/22/17 14:49 36.9 85 18 94 12/22/17 11:59 94 Room Air 12/22/17 11:08 36.9 85 18 116/60 (78) 94 Room Air 12/22/17 10:07 36.8 85 20 134/76 (95) 97 Room Air 12/22/17 08:00 98 Room Air 12/22/17 07:30 36.7 78 20 175/69 (104) 98 Room Air 12/22/17 04:36 36.8 74 22 141/57 (85) 97 Nasal Cannula 3.0 12/22/17 04:00 Room Air 12/22/17 00:00 Room Air 12/21/17 23:32 37.1 79 21 131/42 (71) 98 Nasal Cannula 2.0 12/21/17 20:24 Room Air 12/21/17 19:40 36.9 20 148/73 (98) 94 Room Air Lab Results: Results Past 24 Hours Test 12/22/17 06:39 Range/Units White Blood Count 7.78 4.8-10.8 K/uL Red Blood Count 3.85 4.2-5.4 M/uL Hemoglobin 10.8 12.0-16.0 g/dL Hematocrit 34.5 37-47 % Mean Corpuscular Volume 89.6 80-100 fL Mean Corpuscular Hemoglobin 28.1 25-34 pg Mean Corpuscular Hemoglobin Concent 31.3 32-36 g/dl Platelet Count 197 130-400 K/uL Mean Platelet Volume 10.3 7.4-10.4 fL Neutrophils (%) (Auto) 66.6 % Lymphocytes (%) (Auto) 20.2 % Monocytes (%) (Auto) 9.4 % Eosinophils (%) (Auto) 2.3 % Basophils (%) (Auto) 0.3 % Neutrophils # (Auto) 5.19 1.4-6.5 K/uL Lymphocytes # (Auto) 1.57 1.2-3.4 K/uL Monocytes # (Auto) 0.73 0.11-0.59 K/uL Eosinophils # (Auto) 0.18 0-0.5 K/uL Basophils # (Auto) 0.02 0-0.2 K/uL RDW Standard Deviation 52.4 36.4-46.3 fL RDW Coefficient of Variation 16.1 11.5-14.5 % Immature Granulocyte % (Auto) 1.2 % Immature Granulocyte # (Auto) 0.09 0.00-0.02 K/uL Sodium Level 140 136-145 mmol/L Potassium Level 3.8 3.5-5.1 mmol/L Chloride Level 101 98-107 mmol/L Carbon Dioxide Level 34 21-32 mmol/L Anion Gap 4.0 3-11 mmol/L Blood Urea Nitrogen 13 7-18 mg/dl Creatinine 0.52 0.60-1.20 mg/dl Est Creatinine Clear Calc Drug Dose 144.7 ml/min Estimated GFR () 111.4 Estimated GFR (Non- 96.1 BUN/Creatinine Ratio 24.6 10-20 Random Glucose 112 70-99 mg/dl Estimated Average Glucose 128 mg/dl Hemoglobin A1c 6.1 4.5-5.6 % Calcium Level 8.5 8.5-10.1 mg/dl Magnesium Level 2.5 1.8-2.4 mg/dl
[2017-12-22] MEDS ORDERED: CETIRIZINE HCL 10 MG TAB PO ONE (17:00)
[2017-12-22] MEDS ORDERED: PENTOXIFYLLINE 400MG EXT REL TAB PO SCH (21:00)
[2017-12-22] MEDS ORDERED: FUROSEMIDE INJ 20 MG in SYRINGE 0 ML IV ONE (21:30)
[2017-12-23] MEDS: ONDANSETRON INJ 2 MG/ML 2 ML VIAL IV SCH ×2 (04:45→12:40)
[2017-12-23] MEDS: HEPARIN SOD 5000 UNIT/0.5 ML CARP SQ SCH ×2 (05:21→13:45)
--- NOTE | 2017-12-23 07:16 | Surgery Progress Note ---
Surgery Progress Note Date of Service Dec 23, 2017. Subjective Post OP Day: 4 + feeling well, + pain controlled (having very little), + diet (olerated regular diet), No bowel movement, No flatus, No nausea, No vomiting Objective Vital Signs: Date Time Temp Pulse Resp B/P (MAP) Pulse Ox O2 Delivery O2 Flow Rate FiO2 12/22/17 23:20 Nasal Cannula 2.0 12/22/17 23:00 36.9 90 18 134/68 (90) 96 Nasal Cannula 2.0 12/22/17 15:30 37.0 80 20 149/65 (93) 95 Room Air 12/22/17 15:00 Room Air 12/22/17 14:49 36.9 85 18 94 12/22/17 11:59 94 Room Air 12/22/17 11:08 36.9 85 18 116/60 (78) 94 Room Air 12/22/17 10:07 36.8 85 20 134/76 (95) 97 Room Air 12/22/17 08:00 98 Room Air 12/22/17 07:30 36.7 78 20 175/69 (104) 98 Room Air Abdomen: non tender, non distended, soft Incision(s): clean, dry, intact, no erythema, no drainage Laboratory Results: Results Past 24 Hours Test 12/23/17 04:44 Range/Units Assessment & Plan S/P repair of incarcerated ventral hernia Doing well Peristalsis has returned, bowels moving Tolerated soft diet Ready for D/C from surgical standpoint Follow up next week for staple removal
[2017-12-23 08:09] VITALS: BP 191/72; PULSE 86; TEMP 36.7; O2SAT 97
[2017-12-23 08:37] LABS: HEMATOCRIT 35.4 % (37-47); HEMOGLOBIN 11.3 g/dL (12.0-16.0); MEAN CELL VOLUME 88.7 fL (80-100); MEAN CORPUSCULAR HEMOGLOBIN 28.3 pg (25-34); MEAN CORPUSCULAR HGB CONC 31.9 g/dl (32-36); PLATELET COUNT 186 K/uL (130-400); RED CELL DISTRIBUTION WIDTH CV 15.9 % (11.5-14.5); RED CELL DISTRIBUTION WIDTH SD 51.2 fL (36.4-46.3); WHITE BLOOD COUNT 8.27 K/uL (4.8-10.8)
--- NOTE | 2017-12-23 08:46 | Consultant Recommendations ---
Cigarette And Filter Chief Inspector Recommendations Date of Service Dec 23, 2017. Cigarette And Filter Chief Inspector Recommendations No heavy lifting over 10 pounds for 6 weeks No strenuous activity until cleared by surgeon No submerging incision underwater for 2 weeks (no bathing, swimming, or hot tubs ) No driving while taking narcotic pain medication or until you are pain free You may shower Cover incision daily with gauze and mild tape, the lisa can get caught on clothing Walking and light activity is encouraged to prevent blood clots from forming You will be given Narcotic pain medication as needed for moderate to severe pain. This medication may make you drowsy and can cause constipation. To combat constipation, drink plenty of water, may take OTC stool softener such as Colace, gentle laxative, or prune juice. You may take extra strength Ibuprofen as needed for mild pain, if you are no longer taking Percocet you may take extra strength Tylenol. Follow-up in surgical office in 1 week for staple removal, please call office at [phone] to make an appointment.
[2017-12-23] MEDS: ALUMINUM/MAGNESIUM SUSP 30 ML UDC NG SCH ×2 (08:51→09:27)
[2017-12-23] MEDS: TRIAMCINOLONE ACET NASAL SPRAY 10.8ML BTL NAE SCH (08:52)
[2017-12-23] MEDS: PANTOprazole SOD 40 MG TAB PO SCH (08:52)
[2017-12-23 08:57] VITALS: BP 144/70
[2017-12-23] MEDS: AMLODIPINE BESYLATE 5 MG TAB PO SCH (09:26)
[2017-12-23] MEDS: LOSARTAN POTASSIUM 25 MG TAB PO SCH (09:26)
[2017-12-23] MEDS: GUAIFENESIN 600 MG TABCR PO SCH (09:26)
[2017-12-23] MEDS: HYDROCHLOROTHIAZIDE 25 MG TAB PO SCH (09:26)
[2017-12-23] MEDS: MULTIVITAMIN TAB PO SCH (09:26)
[2017-12-23 12:46] VITALS: BP 144/70; PULSE 86; TEMP 36.7; O2SAT 97
[2017-12-23] MEDS ORDERED: CETI10TA10 PO ×2 (12:52→12:57)
--- NOTE | 2017-12-23 12:54 | Discharge Instructions ---
Discharge Instructions Date of Service Dec 23, 2017. Admission Reason for Admission: Bronchitis, Chronic Gerd Discharge Discharge Diagnosis / Problem: bronchitis, sbo s/p ventral hernia repair Discharge Goals Goal(s): Decrease discomfort, Improve function Activity Recommendations Activity Limitations: resume your previous activity . Instructions / Follow-Up Instructions / Follow-Up FOLLOWUP WITH FAMILY DOCTOR ON December AT 1:05PM FOLLOWUP WITH SURGERY IN ONE WEEK FOR SUTURE REMOVAL. SURGERY RECOMMENDATIONS: Stage Set Designer Recommendations No heavy lifting over 10 pounds for 6 weeks No strenuous activity until cleared by surgeon No submerging incision underwater for 2 weeks (no bathing, swimming, or hot tubs ) No driving while taking narcotic pain medication or until you are pain free You may shower Cover incision daily with gauze and mild tape, the lisa can get caught on clothing Walking and light activity is encouraged to prevent blood clots from forming You will be given Narcotic pain medication as needed for moderate to severe pain. This medication may make you drowsy and can cause constipation. To combat constipation, drink plenty of water, may take OTC stool softener such as Colace, gentle laxative, or prune juice. You may take extra strength Ibuprofen as needed for mild pain, if you are no longer taking Percocet you may take extra strength Tylenol. Follow-up in surgical office in 1 week for staple removal, please call office at [phone] to make an appointment. Current Hospital Diet Patient's current hospital diet: Low Fiber Diet Discharge Diet Recommended Diet: AHA Diet (Heart Healthy) Procedures Procedures Performed: Open Ventral Hernia Repair with Mesh Pending Studies Studies pending at discharge: no Laboratory Results Hemoglobin A1c Test 12/22/17 06:39 Range/Units Estimated Average Glucose 128 mg/dl Hemoglobin A1c 6.1 H 4.5-5.6 % Medical Emergencies . Who to Call and When: Medical Emergencies: If at any time you feel your situation is an emergency, please call 911 immediately. . Non-Emergent Contact Non-Emergency issues call your: Primary Care Provider . . "Provider Documentation" section prepared by Star Pyle. . Stage Set Designer Recommendations Stage Set Designer Recommendations: No heavy lifting over 10 pounds for 6 weeks No strenuous activity until cleared by surgeon No submerging incision underwater for 2 weeks (no bathing, swimming, or hot tubs ) No driving while taking narcotic pain medication or until you are pain free You may shower Cover incision daily with gauze and mild tape, the lisa can get caught on clothing Walking and light activity is encouraged to prevent blood clots from forming You will be given Narcotic pain medication as needed for moderate to severe pain. This medication may make you drowsy and can cause constipation. To combat constipation, drink plenty of water, may take OTC stool softener such as Colace, gentle laxative, or prune juice. You may take extra strength Ibuprofen as needed for mild pain, if you are no longer taking Percocet you may take extra strength Tylenol. Follow-up in surgical office in 1 week for staple removal, please call office at [phone] to make an appointment.
[2017-12-23] MEDS ORDERED: OXYC-57 PO (12:58)
--- NOTE | 2017-12-23 18:03 | Progress Note ---
Internal Med Progress Note Date of Service: Dec 23, 2017. Provider Documentation: SUBJECTIVE: sitting on the chair comfortably eating finer ambulated ok no sob or chest pain ok for discharge OBJECTIVE: Vital Signs-as noted below Exam: General-alert and oriented. Not in distress. Obese ENT-normal hearing. Neck-No neck masses Lungs-CTA b/l no wheezing or crackles Heart-S1 and S2 heard regular rate and rhythm no murmurs Abdomen-soft Bowels sounds present surgical sutures seen and clean non tender no distension Extremities-lower extremity edema present no erythema Neuro-alert and oriented moves extremities Lab data as noted below. ASSESSMENT & PLAN: 72-year-old female presented with SBO secondary to incarcerated ventral hernia s/p repair. 1. Small bowel obstruction secondary to incarcerated ventral hernia-status post repair. Off of NG tube. Tolerating soft diet.moved bowels Ok for d/c and followup with surgery 2. Bronchitis-coughing is continuing to improve. completed Prednisone and Levaquin . still has post nasal drip other segura doing ok.will give zyrtec.f/u with pcp 3. Severe GERD-Protonix twice daily. 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 4. 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 5. Tachycardia with PAC's resolved. will monitor stable 6. Diabetes mellitus type 2-diet controlled, stopped insulin sliding scale and fingersticks at this time as she has been controlled without coverage for the past several days despite prednisone use. hba1c 6.1. f/u with pcp 7. Hypertension- stable on home meds discharged home Vital Signs: Date Time Temp Pulse Resp B/P (MAP) Pulse Ox O2 Delivery O2 Flow Rate FiO2 12/23/17 12:46 36.7 86 18 97 Room Air 12/23/17 08:57 144/70 (94) 12/23/17 08:09 36.7 86 18 191/72 (111) 97 Room Air 12/23/17 07:40 Room Air 12/22/17 23:20 Nasal Cannula 2.0 12/22/17 23:00 36.9 90 18 134/68 (90) 96 Nasal Cannula 2.0 Lab Results: Results Past 24 Hours Test 12/23/17 08:10 Range/Units White Blood Count 8.27 4.8-10.8 K/uL Red Blood Count 3.99 4.2-5.4 M/uL Hemoglobin 11.3 12.0-16.0 g/dL Hematocrit 35.4 37-47 % Mean Corpuscular Volume 88.7 80-100 fL Mean Corpuscular Hemoglobin 28.3 25-34 pg Mean Corpuscular Hemoglobin Concent 31.9 32-36 g/dl RDW Standard Deviation 51.2 36.4-46.3 fL RDW Coefficient of Variation 15.9 11.5-14.5 % Platelet Count 186 130-400 K/uL Mean Platelet Volume 10.0 7.4-10.4 fL
--- NOTE | 2017-12-23 18:14 | Discharge Summary ---
Discharge Summary Date of Service Dec 23, 2017. Discharge Summary Admission Date: Dec 16, 2017 at 18:17 Discharge Date: Dec 23, 2017 Discharge Disposition: Home Principal Diagnosis: BRONCHITIS SBO S/P VENTRAL HERNIA REPAIR Secondary Diagnoses/Problems: (1) Bronchitis (2) Chest pain (3) Chronic GERD (4) Chronic Sinusitis Nos (5) Diverticulosis Colon (W/O Ment Of Hemorrhage) (6) Dysthymic Disorder (7) Esophageal Reflux (8) Fracture of humeral head, right, closed (9) GERD (gastroesophageal reflux disease) (10) Hypoxemia (11) Malignant neoplasm of other specified sites of body of uterus (12) Morbid Obesity (13) Non-cardiac chest pain (14) Obstructive Sleep Apnea (Adult) (Pediatric) (15) Oth Pulmon Embolism/Infarct (16) Pulmonary embolism (17) Vaginal bleeding (18) Vaginal bleeding (19) Vaginal bleeding Procedures: CXR: 1. Cardiomegaly with possible volume overload. No loraine pulmonary edema. 2. Mildly low lung volumes. 3. Deformity of the left humerus likely indicates fracture, which is chronic. ABD XRAY: 1. Diagnostic sensitivity is limited by image quality secondary to patient body habitus. 2. Allowing for this, no gross evidence of bowel obstruction or free gas. 3. Suspected left renal calculus. CT ABD/PELVIS: Right-sided spigelian hernia, with a resulting small bowel obstruction. Surgical consultation is recommended. ABDOMINAL WALL US: Bowel containing supraumbilical ventral hernia. S/P VENTRAL HERNIA REPAIR Consultations: [facility]-surgery Medication Reconciliation New Medications: Cetirizine Hcl (Zyrtec) 10 Mg Tab 10 MG PO HS PRN for Nasal Congestion, #14 TAB Oxycodone/Acetaminophen 5MG/325MG (Percocet 5MG/325MG) Tab 1-2 TABLETS PO Q4H PRN for Pain, #30 TAB Continued Medications: Amlodipine Besylate (Amlodipine Besylate) 5 Mg Tab 5 MG PO DAILY Aspirin (Aspirin Ec) 81 Mg Tab 81 MG PO QPM Atorvastatin (Lipitor) 80 Mg Tab 80 MG PO DAILY, TAB Azelastine Hcl (Astelin Nasal [place]) 200 Sprays/30 Ml [place] 1-22 SPRAYS FARSHAD BID PRN for Nasal Congestion, BTL Cranberry (Vaccinium Macrocarp (Cranberry) Unknown Strength Cap 1 CAP PO DAILY Docusate Sodium (Stool Softener) 100 Mg Tab 100 MG PO DAILY Home O2 Therapy (Oxygen) Gas 2 LITERS NA HS uses 2.0 liters a night only Hydrochlorothiazide (Hydrochlorothiazide) 25 Mg Tab 25 MG PO DAILY Lansoprazole (Prevacid) 30 Mg Cap 30 MG PO BID Levalbuterol (Levalbuterol HCl) 0.63 Mg/3 Ml Nebu 0.63 MG NEB Q8 PRN for Wheezing Losartan Potassium (Losartan Potassium) 25 Mg Tab 25 MG PO DAILY Mometasone Furoate-Formoterol (Dulera 100/5 Mcg) 1 Aer Aer 2 PUFFS INH BID PRN for SOB/Wheezing Multiple Vitamin (Multivitamin) 1 Tab Tab 1 TAB PO DAILY, TAB Nystatin (Topical) (Nystatin) 100,000 Unit/Gm Pow 1 APPLN TOP BID PRN for Yeast Infection Nystatin/Triamcinolone (Mycogen || ) Cr 1 APPLN TOP UD PRN for Yeast Infection Pentoxifylline (Pentoxifylline ER) 400 Mg Tabcr 400 MG PO PC Triamcinolone Acetonide (Nasal (Nasacort Allergy 24Hr) 55 Mcg/Act Spr 2 SPRAYS FARSHAD BID PRN for Allergy Symptoms Discontinued Medications: Levofloxacin (Levaquin) 500 Mg Tab 500 MG PO DAILY for 10 Days PRESCRIBED 12/14/2017, TAKE DIRECTED UNTIL GONE Prednisone (Prednisone) 10 Mg Tab 10 MG PO UD TAPER DOWN DOSING PRESCRIBED 12/14/2017 FOLLOWS: TAKE 5 TABLETS (50 MG) DAILY FOR 2 DAYS THEN, TAKE 4 TABLETS (40 MG) DAILY FOR 2 DAYS THEN, TAKE 3 TABLETS (30 MG) DAILY FOR 2 DAYS THEN, TAKE 2 TABLETS (20 MG) DAILY FOR 2 DAYS THEN, TAKE 1 TABLET (10 MG) DAILY FOR 2 DAYS THEN STOP. Admission Information HPI (per Admitting provider): This is a 72 year old female with PMH of morbid obesity, on 2L of nocturnal O2, HTN, HLD, DM2; hx. of DVT and PE in 2010; no longer on anticoagulation, significant reflux, hx. of upper esophageal web and gastric polyps - presents with worsening productive cough/shortness of breath. Was seen in [facility] for this issue and was given a Z-ron[place] at the end of November. She was then seen again by the outpatient clinic on December 14 and was given Levaquin and prednisone; stated that her breathing did not improve and her cough worsened. Associated with the cough is nausea/vomiting. She states that she feels during her coughing fits, she gets nauseous. Also c/o her reflux getting worse. She cannot lay down flat because of her reflux and usually sleeps elevated with multiple pillows. She states that she regurgitated undigested food on Wednesday ; she believes it was food that she ate on Wednesday. Currently feels really weak, cough persists. Physical Exam (per Admitting): General Appearance: + mild distress (secondary to cough), + obese Head: normocephalic, atraumatic Eyes: normal inspection ENT: hearing grossly normal Respiratory/Chest: no respiratory distress, no accessory muscle use, + wheezing (sonorous breath sounds on expiration diffusely) Cardiovascular: no edema, no murmur, + tachycardia Abdomen/GI: normal bowel sounds, non tender, soft Extremities/Musculoskelatal: normal inspection, no calf tenderness, normal capillary refill, no pedal edema, normal range of motion Neurologic/Psych: lathe set up person II-XII nml as tested, no motor/sensory deficits, alert , normal mood/affect, oriented x 3 Skin: normal color Lymphatic: no adenopathy Hospital Course 72-year-old female presented with SBO secondary to incarcerated ventral hernia s/p repair. 1. Small bowel obstruction secondary to incarcerated ventral hernia-status post repair. Off of NG tube. Tolerating soft diet.moved bowels Ok for d/c and followup with surgery 2. Bronchitis-coughing is continuing to improve. completed Prednisone and Levaquin . still has post nasal drip other segura doing ok.will give zyrtec.f/u with pcp 3. Severe GERD-Protonix twice daily. 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 4. 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 5. Tachycardia with PAC's resolved. will monitor stable 6. Diabetes mellitus type 2-diet controlled, stopped insulin sliding scale and fingersticks at this time as she has been controlled without coverage for the past several days despite prednisone use. hba1c 6.1. f/u with pcp 7. Hypertension- stable on home meds discharged home Total time spent on discharge = 35MINUTES This includes examination of the patient, discharge planning, medication reconciliation, and communication with other providers. Discharge Instructions Discharge Instructions Date of Service Dec 23, 2017. Admission Reason for Admission: Bronchitis, Chronic Gerd Discharge Discharge Diagnosis / Problem: bronchitis, sbo s/p ventral hernia repair Discharge Goals Goal(s): Decrease discomfort, Improve function Activity Recommendations Activity Limitations: resume your previous activity . Instructions / Follow-Up Instructions / Follow-Up FOLLOWUP WITH FAMILY DOCTOR ON December AT 1:05PM FOLLOWUP WITH SURGERY IN ONE WEEK FOR SUTURE REMOVAL. SURGERY RECOMMENDATIONS: Real Estate Clerk Recommendations No heavy lifting over 10 pounds for 6 weeks No strenuous activity until cleared by surgeon No submerging incision underwater for 2 weeks (no bathing, swimming, or hot tubs ) No driving while taking narcotic pain medication or until you are pain free You may shower Cover incision daily with gauze and mild tape, the lisa can get caught on clothing Walking and light activity is encouraged to prevent blood clots from forming You will be given Narcotic pain medication as needed for moderate to severe pain. This medication may make you drowsy and can cause constipation. To combat constipation, drink plenty of water, may take OTC stool softener such as Colace, gentle laxative, or prune juice. You may take extra strength Ibuprofen as needed for mild pain, if you are no longer taking Percocet you may take extra strength Tylenol. Follow-up in surgical office in 1 week for staple removal, please call office at [phone] to make an appointment. Current Hospital Diet Patient's current hospital diet: Low Fiber Diet Discharge Diet Recommended Diet: AHA Diet (Heart Healthy) Procedures Procedures Performed: Open Ventral Hernia Repair with Mesh Pending Studies Studies pending at discharge: no Laboratory Results Hemoglobin A1c Test 12/22/17 06:39 Range/Units Estimated Average Glucose 128 mg/dl Hemoglobin A1c 6.1 H 4.5-5.6 % Medical Emergencies . Who to Call and When: Medical Emergencies: If at any time you feel your situation is an emergency, please call 911 immediately. . Non-Emergent Contact Non-Emergency issues call your: Primary Care Provider . . "Provider Documentation" section prepared by Star Pyle. . Real Estate Clerk Recommendations Real Estate Clerk Recommendations: No heavy lifting over 10 pounds for 6 weeks No strenuous activity until cleared by surgeon No submerging incision underwater for 2 weeks (no bathing, swimming, or hot tubs ) No driving while taking narcotic pain medication or until you are pain free You may shower Cover incision daily with gauze and mild tape, the lisa can get caught on clothing Walking and light activity is encouraged to prevent blood clots from forming You will be given Narcotic pain medication as needed for moderate to severe pain. This medication may make you drowsy and can cause constipation. To combat constipation, drink plenty of water, may take OTC stool softener such as Colace, gentle laxative, or prune juice. You may take extra strength Ibuprofen as needed for mild pain, if you are no longer taking Percocet you may take extra strength Tylenol. Follow-up in surgical office in 1 week for staple removal, please call office at [phone] to make an appointment.
== END 2017-12-23 14:25 | disposition home or self-care (01) | DRG 988 ==
LOC: C.EDB 15:21 → C.4E 18:17 → ENRESERV 18:47 → EDBEDREQ 12-19 16:20 → ENRESERV 12-19 16:32 → C.2T 12-19 17:09 → ENRESERV 12-22 14:19 → C.MSW 12-22 15:26
PROVIDERS: ADMIT Family Medicine; ATTEND Internal Medicine
PROC: 0WQF0ZZ Repair Abdominal Wall, Open Approach (ICD-10-PCS; principal; 2017-12-19 13:00)
PROC: 0WUF0JZ Supplement Abdominal Wall with Synthetic Substitute, Open Approach (ICD-10-PCS; principal; 2017-12-19 13:00)
DX: J20.9 Acute bronchitis, unspecified (principal); K43.6 Other and unspecified ventral hernia with obstruction, without gangrene; J45.901 Unspecified asthma with (acute) exacerbation; Z68.43 Body mass index [BMI] 50.0-59.9, adult; R00.0 Tachycardia, unspecified; I10 Essential (primary) hypertension; K21.9 Gastro-esophageal reflux disease without esophagitis; E66.01 Morbid (severe) obesity due to excess calories; Z79.82 Long term (current) use of aspirin; R09.02 Hypoxemia; E11.9 Type 2 diabetes mellitus without complications; E78.5 Hyperlipidemia, unspecified; Z86.718 Personal history of other venous thrombosis and embolism; Z86.711 Personal history of pulmonary embolism; Z88.2 Allergy status to sulfonamides; Z88.1 Allergy status to other antibiotic agents; Z88.5 Allergy status to narcotic agent; Z88.8 Allergy status to other drugs, medicaments and biological substances; Z85.42 Personal history of malignant neoplasm of other parts of uterus; Z92.3 Personal history of irradiation

== ENCOUNTER 2022-06-05 16:19 | Observation (INO) ==
--- NOTE | 2022-06-05 17:05 | Emergency Department Note ---
Impression & Plan Chest pain, Hypokalemia, Atrial fibrillation ED Provider Note Sondra: NAKIA Alai CESPEDES AGE: 76 SEX: F : 1945 ARRIVES VIA: Ambulance INFORMANT: Patient, ED PROVIDER(S): Isaac Brody DO CHIEF COMPLAINT: Chest pain HPI: The patient is a 76-year-old female who presented to the emergency department for an evaluation of chest pain. The patient describes chest pain that began prior to arrival. She describes it as a burning pressure across her anterior chest mostly on the left side of her chest. She states she became very dizzy with this and felt as though she may pass out. The patient denies having any lower extremity swelling. She denies having any abdominal pain. She called 911 and was treated with aspirin and Zofran prior to arrival. She denies having any nausea at this time. She does complain of some shortness of breath. She states the pain was moderate when she called 911 at this time is improved slightly. She denies having any new medications. She denies having any recent traveling. She denies having any cough or fever. ROS: See above HPI for pertinent positives & negatives. A total of 10 systems reviewed and were otherwise negative. PAST MEDICAL HISTORY: See Below PAST SURGICAL HISTORY: See Below FAMILY HISTORY: See Below SOCIAL HISTORY: See Below HOME MEDICATIONS: See Below ALLERGIES: See Below VITALS: See Below PHYSICAL EXAMINATION: GENERAL: Patient is awake alert in no acute distress patient is resting comfortably and showing no signs of anxiety EYES: The conjunctivae are clear. The pupils are round and reactive. EARS, NOSE, MOUTH AND THROAT: The nose is without any evidence of any deformity. Mucous membranes are moist. Tongue is midline. NECK: The neck is nontender and supple. RESPIRATORY: Normal respiratory effort is noted there is no evidence of wheezing rhonchi or rales CARDIOVASCULAR: Irregular heart sounds were noted auscultation. There was no definite murmur. GASTROINTESTINAL: The abdomen is soft. Abdomen is nontender. MUSCULOSKELETAL/EXTREMITIES: There is no evidence of gross deformity full range of motion is noted in the hips and shoulders. SKIN: Skin is warm and dry. Pedal edema was noted bilaterally. NEUROLOGIC: Patient is awake alert and oriented x3 MEDICAL DECISION MAKING: The patient is a 76-year-old female who presented to the emergency department for an evaluation of chest discomfort. The patient evaluated multiple times. I discussed the patient's laboratory and radiographic studies with her. I also discussed the limitations of the emergency room work-up for chest pain with her. Ultimately given the patient's age and comorbidities I discussed her case with the on-call [facility] hospitalist. They have agreed to evaluate the patient in the emergency department for further management and disposition. Triage Nursing notes reviewed. Prior medical records reviewed Vital Signs: reviewed and remarkable for elevated blood pressure. Differential diagnosis: Cardiac ischemia, aortic dissection, pulmonary embolism, pneumothorax, pneumonia, pericarditis, myocarditis, esophageal rupture, GERD, cholecystitis, pancreatitis, musculoskeletal, as well as other pathologies. ER treatment provided: See below Diagnostics interpreted by me: ECG: EKG was obtained in the emergency department. My interpretation is atrial fibrillation at 106 bpm. There was no ectopy. Nonspecific ST segment abnormalities were noted. This was compared to a tracing from December 21, 2017. The ST segment abnormalities appear new compared to the earlier tracing. Cardiac Monitoring: An order was placed for continuous cardiac monitoring. The monitor shows a rate of 103 bpm with atrial fibrillation with rapid ventricular response. Laboratory studies: As stated above and show below. Imaging studies: See below Consultation(s): I discussed this case with Tr[facility] Past Med/Surg History Medical History (Updated 06/06/22 @ 00:20 by Isaac Brody DO) Acquired lymphedema TO STOMACH> GETS THERAPY/MASSAGE TO MANAGE > WAS COMPLICATION AFTER RADIATION TREATMENT Asthma WELL CONTROLLED> JUST TRIGGERED BY ODORS; no inh Chronic bronchitis Deep vein thrombosis FEBRUARY 2011 > CAUSED BY PROLONGED SITTING DURING A PREVIOUS HOSPITALIZATION > TREATED WITH COUMADIN Diabetes mellitus, type II GERD (gastroesophageal reflux disease) diet controlled History of anesthesia reaction woke up during D&C, colonoscopy Hyperlipidemia Hypertension IBS (irritable bowel syndrome) Lipodermatosclerosis Morbid obesity On home O2 2 lpm qHS Osteoarthritis Overactive bladder Pulmonary embolism FEBRUARY 2011 > CAUSED BY PROLONGED SITTING DURING A PREVIOUS HOSPITALIZATION > TREATED WITH COUMADIN Uterine cancer APR 2014 > RADIATION > RESOLVED Vertigo Vitreous detachment of both eyes Surgical History History of bilateral tubal ligation History of cardiac cath NO STENTS > OVER 10 YRS AGO > DONE FOR CP History of cataract surgery RT History of cholecystectomy History of colonoscopy History of dilatation and curettage History of esophagogastroduodenoscopy (EGD) History of tooth extraction Hx of hernia repair VENTRAL WITH MESH Family History Other No family history of adverse response to anesthesia Social History Smoking Status: Never smoker Second Hand Exposure: No; Hx Alcohol Use: No Hx Substance Use: No Preferred Language: Greenlandic Communication Ability: Effective 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 Required: No Beliefs That Will Affect Care: None Current Living Situation: Alone Other Information That Helps Us Care for You: No Feels Safe at Home: Yes Safety Concerns: Feels Safe At This Time Assistive Devices: Glasses and Walker Allergies Allergies Allergy/AdvReac Type Severity Reaction Status Date / Time doxycycline Allergy Intermediate SWELLING Verified 03/12/21 07:09 codeine Allergy Mild PER Verified 03/12/21 07:09 PATIENT "MADE HER MARY ANNE CRAZY" WHEN SHE TOOK ALOT Sulfa (Sulfonamide Allergy Mild Gastrointestinal Verified 03/12/21 07:09 Antibiotics) Upset tetracycline Allergy Mild SWELLING Verified 03/12/21 07:09 TO EYES NARINDER Inhibitors AdvReac Intermediate cough Verified 03/12/21 07:09 Home Meds Home Medications Medication Instructions Recorded Confirmed amlodipine 5 mg tablet 5 mg PO QAM 05/22/20 06/05/22 aspirin 81 mg tablet,delayed 81 mg PO PM 05/22/20 06/05/22 release (Adult Aspirin Regimen) atorvastatin 80 mg tablet 80 mg PO PM 05/22/20 06/05/22 azelastine 205.5 mcg (0.15 %) 1 spray intranasal BID PRN 05/22/20 06/05/22 nasal spray Congestion hydrochlorothiazide 25 mg tablet 25 mg PO QAM 05/22/20 06/05/22 lansoprazole 30 mg delayed 30 mg PO BID 05/22/20 06/05/22 release,disintegrating tablet levalbuterol HCl 0.31 mg/3 mL 0.31 mg inhalation DAILY PRN 05/22/20 06/05/22 solution for nebulization (Xopenex) Shortness Of Breath losartan 25 mg tablet 25 mg PO PM 05/22/20 06/05/22 multivitamin (Daily Multi-Vitamin 1 tab PO PM 05/22/20 06/05/22 tablet) nystatin 100,000 unit/gram topical 1 applic topical DAILY PRN Rash 05/22/20 06/05/22 cream triamcinolone acetonide 55 mcg 1 spray intranasal DAILY PRN 05/22/20 06/05/22 nasal spray aerosol (Children's Congestion Nasacort) meclizine 25 mg tablet 25 mg PO TID PRN Dizziness 06/05/22 06/05/22 trospium 60 mg capsule,extended 60 mg PO PM 06/05/22 06/05/22 release 24 hr Results & Data (ED) Vital Signs Vital Signs - 24 hr 06/05/22 16:28 06/05/22 17:42 06/05/22 17:50 Temperature 36.6 C Temperature Source Temporal Artery Scan Pulse Rate 99 H 107 H 101 H Pulse Rate from SpO2 Sensor 102 H 102 H Respiratory Rate 16 19 17 Respiratory Effort / Characteristics Non-Labored Spontaneous Respiratory Depth Normal Respiratory Pattern Regular Blood Pressure 135/76 Blood Pressure Mean 95 Blood Pressure Position Sitting Pulse Oximetry 93 93 90 Oxygen Delivery Method Room Air Room Air Room Air Sepsis Recent Fever Within 48 Hours No Sepsis New/Unexplained Change in Mental Status No Sepsis Action Taken by Nursing No Action Required 06/05/22 18:00 06/05/22 18:01 06/05/22 18:01 Temperature Temperature Source Pulse Rate 103 H 98 H Pulse Rate from SpO2 Sensor 103 H 104 H Respiratory Rate 22 14 Respiratory Effort / Characteristics Respiratory Depth Respiratory Pattern Blood Pressure 152/84 H Blood Pressure Mean 106 Blood Pressure Position Pulse Oximetry 91 Oxygen Delivery Method Room Air Room Air Room Air Sepsis Recent Fever Within 48 Hours Sepsis New/Unexplained Change in Mental Status Sepsis Action Taken by Nursing 06/05/22 18:10 06/05/22 18:20 06/05/22 18:30 Temperature Temperature Source Pulse Rate 97 H 98 H Pulse Rate from SpO2 Sensor 101 H 105 H Respiratory Rate 21 22 Respiratory Effort / Characteristics Respiratory Depth Respiratory Pattern Blood Pressure 132/84 Blood Pressure Mean 100 Blood Pressure Position Pulse Oximetry 92 94 Oxygen Delivery Method Room Air Room Air Room Air Sepsis Recent Fever Within 48 Hours Sepsis New/Unexplained Change in Mental Status Sepsis Action Taken by Nursing 06/05/22 18:30 06/05/22 18:40 06/05/22 18:50 Temperature Temperature Source Pulse Rate 104 H 109 H 104 H Pulse Rate from SpO2 Sensor 97 H 108 H 102 H Respiratory Rate 26 H 16 21 Respiratory Effort / Characteristics Respiratory Depth Respiratory Pattern Blood Pressure Blood Pressure Mean Blood Pressure Position Pulse Oximetry 91 91 Oxygen Delivery Method Room Air Room Air Room Air Sepsis Recent Fever Within 48 Hours Sepsis New/Unexplained Change in Mental Status Sepsis Action Taken by Assisted Medications Current Medication List: was personally reviewed by me Laboratory Data Attestation: I reviewed the patient's lab results. Result diagrams: 06/05/22 17:20 06/05/22 17:20 Lab Results 06/05/22 06/05/22 06/05/22 Range/Units 17:20 17:20 17:20 WBC 11.19 H (4.8-10.8) K/ul RBC 4.51 (3.93-5.22) M/uL Hgb 12.6 (12.0-16.0) g/dl Hct 38.5 (34.1-44.9) % MCV 85.4 (80.0-100.0) fL MCH 27.9 (25.0-34.0) pg MCHC 32.7 (32.0-36.0) g/dL RDW Std Deviation 49.3 H (36.4-46.3) fL RDW Coeff of Rodolfo 15.9 H (11.5-14.5) % Plt Count 237 (130-400) K/uL MPV 10.1 (9.4-12.3) fL Immature Gran % (Auto) 0.5 % Neut % (Auto) 83.1 % Lymph % (Auto) 10.1 % Lander % (Auto) 5.6 % Eos % (Auto) 0.4 % Baso % (Auto) 0.3 % Neut # (Auto) 9.29 H (1.4-6.5) K/uL Lymph # (Auto) 1.13 L (1.2-3.4) K/uL Lander # (Auto) 0.63 (0.24-0.82) K/uL Eos # (Auto) 0.05 (0-0.50) K/uL Baso # (Auto) 0.03 (0-0.2) K/uL Immature Gran # (Auto) 0.06 H (0.00-0.02) K/uL PT 10.6 Cancelled (9.0-12.0) Seconds INR 1.0 Cancelled (0.9-1.1) APTT 23.4 Cancelled (21.0-31.0) Seconds PTT Ratio 0.9 Cancelled D-Dimer 660 H* (0-500) ug/L FEU Sodium (136-145) mmol/L Potassium (3.5-5.1) mmol/L Chloride (98-107) mmol/L Carbon Dioxide (21-32) mmol/L Anion Gap (3-11) BUN (6-23) mg/dl Creatinine (0.6-1.2) mg/dl Est Cr Clr Drug Dosing ml/min Est GFR ( Amer) ml/min Est GFR (Non-Af Amer) ml/min BUN/Creatinine Ratio (10-20) Glucose (70-99(Fasting)) mg/dl Calcium (8.5-10.1) mg/dl Magnesium (1.7-2.4) mg/dl Total Bilirubin (0.2-1.0) mg/dl AST (13-39) U/L ALT (7-52) U/L Alkaline Phosphatase (34-104) U/L Troponin I High Sens (0-14) pg/ml Total Protein (6.0-8.3) gm/dl Albumin (3.4-5.0) gm/dl Globulin (2.5-4.0) gm/dl Albumin/Globulin Ratio (0.9-2) Lipase (11-82) U/L TSH (0.300-4.500) uIu/ml SARS-CoV-2, RNA, NAAT (NEGATIVE) 06/05/22 06/05/22 06/05/22 Range/Units 17:20 17:20 17:21 WBC (4.8-10.8) K/ul RBC (3.93-5.22) M/uL Hgb (12.0-16.0) g/dl Hct (34.1-44.9) % MCV (80.0-100.0) fL MCH (25.0-34.0) pg MCHC (32.0-36.0) g/dL RDW Std Deviation (36.4-46.3) fL RDW Coeff of Rodolfo (11.5-14.5) % Plt Count (130-400) K/uL MPV (9.4-12.3) fL Immature Gran % (Auto) % Neut % (Auto) % Lymph % (Auto) % Lander % (Auto) % Eos % (Auto) % Baso % (Auto) % Neut # (Auto) (1.4-6.5) K/uL Lymph # (Auto) (1.2-3.4) K/uL Lander # (Auto) (0.24-0.82) K/uL Eos # (Auto) (0-0.50) K/uL Baso # (Auto) (0-0.2) K/uL Immature Gran # (Auto) (0.00-0.02) K/uL PT (9.0-12.0) Seconds INR (0.9-1.1) APTT (21.0-31.0) Seconds PTT Ratio D-Dimer (0-500) ug/L FEU Sodium 142 (136-145) mmol/L Potassium 3.0 L (3.5-5.1) mmol/L Chloride 103 (98-107) mmol/L Carbon Dioxide 29 (21-32) mmol/L Anion Gap 10 (3-11) BUN 13 (6-23) mg/dl Creatinine 0.55 L (0.6-1.2) mg/dl Est Cr Clr Drug Dosing 120.5 ml/min Est GFR ( Amer) 106.3 ml/min Est GFR (Non-Af Amer) 91.8 ml/min BUN/Creatinine Ratio 23.6 H (10-20) Glucose 128 H (70-99(Fasting)) mg/dl Calcium 9.0 (8.5-10.1) mg/dl Magnesium 2.0 (1.7-2.4) mg/dl Total Bilirubin 0.7 (0.2-1.0) mg/dl AST 9 L (13-39) U/L ALT 10 (7-52) U/L Alkaline Phosphatase 116 H (34-104) U/L Troponin I High Sens 5.3 (0-14) pg/ml Total Protein 6.5 (6.0-8.3) gm/dl Albumin 3.4 (3.4-5.0) gm/dl Globulin 3.1 (2.5-4.0) gm/dl Albumin/Globulin Ratio 1.1 (0.9-2) Lipase 10 L (11-82) U/L TSH 0.970 (0.300-4.500) uIu/ml SARS-CoV-2, RNA, NAAT (NEGATIVE) 06/05/22 Range/Units 18:45 WBC (4.8-10.8) K/ul RBC (3.93-5.22) M/uL Hgb (12.0-16.0) g/dl Hct (34.1-44.9) % MCV (80.0-100.0) fL MCH (25.0-34.0) pg MCHC (32.0-36.0) g/dL RDW Std Deviation (36.4-46.3) fL RDW Coeff of Rodolfo (11.5-14.5) % Plt Count (130-400) K/uL MPV (9.4-12.3) fL Immature Gran % (Auto) % Neut % (Auto) % Lymph % (Auto) % Lander % (Auto) % Eos % (Auto) % Baso % (Auto) % Neut # (Auto) (1.4-6.5) K/uL Lymph # (Auto) (1.2-3.4) K/uL Lander # (Auto) (0.24-0.82) K/uL Eos # (Auto) (0-0.50) K/uL Baso # (Auto) (0-0.2) K/uL Immature Gran # (Auto) (0.00-0.02) K/uL PT (9.0-12.0) Seconds INR (0.9-1.1) APTT (21.0-31.0) Seconds PTT Ratio D-Dimer (0-500) ug/L FEU Sodium (136-145) mmol/L Potassium (3.5-5.1) mmol/L Chloride (98-107) mmol/L Carbon Dioxide (21-32) mmol/L Anion Gap (3-11) BUN (6-23) mg/dl Creatinine (0.6-1.2) mg/dl Est Cr Clr Drug Dosing ml/min Est GFR ( Amer) ml/min Est GFR (Non-Af Amer) ml/min BUN/Creatinine Ratio (10-20) Glucose (70-99(Fasting)) mg/dl Calcium (8.5-10.1) mg/dl Magnesium (1.7-2.4) mg/dl Total Bilirubin (0.2-1.0) mg/dl AST (13-39) U/L ALT (7-52) U/L Alkaline Phosphatase (34-104) U/L Troponin I High Sens (0-14) pg/ml Total Protein (6.0-8.3) gm/dl Albumin (3.4-5.0) gm/dl Globulin (2.5-4.0) gm/dl Albumin/Globulin Ratio (0.9-2) Lipase (11-82) U/L TSH (0.300-4.500) uIu/ml SARS-CoV-2, RNA, NAAT NEGATIVE (NEGATIVE) Administered Medications Aspirin (Aspirin 81 Mg Ectab) 81 mg PO PM ANA PAULA Stop: 07/05/22 20:59 Last Admin: 06/05/22 21:51 Dose: 81 mg Documented By: AM Atorvastatin Calcium (Atorvastatin 40 Mg Tab) 80 mg PO PM ANA PAULA Stop: 07/05/22 20:59 Last Admin: 06/05/22 21:52 Dose: 80 mg Documented By: AM Cefepime HCl 2,000 mg/ Syringe 20 mls @ 5 mls/min IV Q12H ANA PAULA; Protocol Stop: 06/15/22 23:29 Last Admin: 06/05/22 23:59 Dose: 5 mls/min Documented By: AM Insulin Aspart (Insulin Aspart Per Unit) 0 units SC ACHS ANA PAULA Stop: 07/05/22 20:59 Last Admin: 06/05/22 22:20 Dose: Not Given Documented By: AM Co-signed By: EEGeovanni Lansoprazole (Lansoprazole 30 Mg Soltab) 30 mg PO BID ANA PAULA Stop: 07/05/22 20:59 Last Admin: 06/05/22 21:52 Dose: 30 mg Documented By: AM Losartan Potassium (Losartan Potassium 25 Mg Tab) 25 mg PO PM ANA PAULA Stop: 07/05/22 20:59 Last Admin: 06/05/22 21:52 Dose: 25 mg Documented By: AM Miscellaneous (Trospium-Order Awaiting Action) 1 each N/A QS ANA PAULA Stop: 07/06/22 00:00 Last Admin: 06/06/22 00:08 Dose: Not Given Documented By: AM Discontinued Medications Al Hydrox/Mg Hydrox/Simethicone (Gi Cocktail Ed Use) 1 dose PO ONE ONE Stop: 06/05/22 18:23 Last Admin: 06/05/22 18:38 Dose: 1 dose Documented By: MALIKA Sodium Chloride (Nss) 500 mls @ 999 mls/hr IV .Q31M ONE Stop: 06/05/22 18:53 Last Infusion: 06/05/22 20:08 Dose: 0 mls/hr Documented By: Admin: 06/05/22 18:42 Dose: 999 mls/hr Documented By: MALIKA Ioversol (Optiray 300 500ml) 112 ml IV ONCE ONE Stop: 06/05/22 20:35 Last Admin: 06/05/22 20:34 Dose: 112 ml Documented By: MACARIO Metoprolol Tartrate (Metoprolol Tartrate 25 Mg Tab) 12.5 mg PO ONE ONE Stop: 06/05/22 20:03 Last Admin: 06/05/22 21:51 Dose: 12.5 mg Documented By: AM Potassium Chloride (Potassium Chloride 10 Meq Tabcr) 20 meq PO NOW STA Stop: 06/05/22 18:18 Last Admin: 06/05/22 18:38 Dose: 20 meq Documented By: MALIKA Potassium Chloride (Potassium Chloride Crtab 20 Meq Tabcr) 20 meq PO NOW STA Stop: 06/05/22 20:28 Last Admin: 06/05/22 22:19 Dose: Not Given Documented By: AM Potassium Chloride (Potassium Chloride Crtab 20 Meq Tabcr) 40 meq PO NOW STA Stop: 06/05/22 20:57 Last Admin: 06/05/22 22:10 Dose: 40 meq Documented By: AM Imaging Data Radiologist's Impression: Chest X-Ray 06/05/22 16:58 SINGLE VIEW CHEST CLINICAL HISTORY: Atypical chest pain. FINDINGS: An AP, portable, upright chest radiograph is compared to study dated 12/21/2017. The heart is enlarged including atherosclerotic calcification of the thoracic ureter. The pulmonary vasculature is noncongested. Chronic interstitial thickening is similar to previous. The lungs and pleural spaces are clear noted bibasilar scarring/atelectasis. No pneumothorax is seen. The skeletal structures are osteopenic. There is chronic posttraumatic deformity right humerus. Healed rib fractures are noted. IMPRESSION: Cardiomegaly with no acute cardiopulmonary abnormality. ACT 112: Negative or not required by law. Electronically signed by: Veto De La Cruz M.D. 06/05/2022 5:45 PM Discharge Plan Visit Data Chief Complaint: Chest Pain Stated Complaint: CHEST PAIN ED Provider: Isaac Brody Discharge Problem: Chest pain, Hypokalemia, Atrial fibrillation Patient Disposition: Admitted As Inpatient Discharge Instructions Interventions: ED Discharge Assessment Last Done: 06/05/22 20:10
[2022-06-05 17:36] LABS: Basophils # (auto) 0.03 K/uL (0-0.2); Basophils % (auto) 0.3 %; Eosinophils # (auto) 0.05 K/uL (0-0.50); Eosinophils % (auto) 0.4 %; Hematocrit (blood only) 38.5 % (34.1-44.9); Hemoglobin 12.6 g/dl (12.0-16.0); Immature Granulocytes # (auto) 0.06 K/uL (0.00-0.02); Immature Granulocytes % (auto) 0.5 %; Lymphocytes # (auto) 1.13 K/uL (1.2-3.4); Lymphocytes % (auto) 10.1 %; Mean Corpuscular Hemoglobin 27.9 pg (25.0-34.0); Mean Corpuscular Hgb Conc 32.7 g/dL (32.0-36.0); Mean Corpuscular Volume 85.4 fL (80.0-100.0); Mean Platelet Volume 10.1 fL (9.4-12.3); Monocytes # (auto) 0.63 K/uL (0.24-0.82); Monocytes % (auto) 5.6 %; Neutrophils # (auto) 9.29 K/uL (1.4-6.5); Neutrophils % (auto) 83.1 %; Platelet Count 237 K/uL (130-400); RDW Coefficient of Variation 15.9 % (11.5-14.5); RDW Standard Deviation 49.3 fL (36.4-46.3); Red Blood Count 4.51 M/uL (3.93-5.22); White Blood Count 11.19 K/ul (4.8-10.8)
--- NOTE | 2022-06-05 17:46 | XRay Report ---
SINGLE VIEW CHEST CLINICAL HISTORY: Atypical chest pain. FINDINGS: An AP, portable, upright chest radiograph is compared to study dated 12/21/2017. The heart i s enlarged including atherosclerotic calcification of the thoracic ureter. The pulmonary vasculature is noncongested. Chronic interstitial thickening is similar to previous. The lungs and pleural spaces are clear noted bibasilar scarring/atelectasis. No pneumothorax is seen. The skeletal structures are osteopenic. There is chronic posttraumatic deformity right humerus. Healed rib fractures are noted. IMPRESSION: Cardiomegaly with no acute cardiopulmonary abnormality. ACT 112: Negative or not required by law. Electronically signed by: Veto De La Cruz M.D. 06/05/2022 5:45 PM
[2022-06-05 17:47] LABS: Partial Thromboplastin Ratio 0.9; Partial Thromboplastin Time 23.4 Seconds (21.0-31.0); Prothrombin Time 10.6 Seconds (9.0-12.0)
[2022-06-05 17:51] LABS: D Dimer 660 ug/L FEU (0-500)
[2022-06-05 18:00] LABS: Troponin I High Sensitivity 5.3 pg/ml (0-14)
[2022-06-05 18:15] LABS: Albumin Globulin Ratio 1.1 (0.9-2); Albumin Level 3.4 gm/dl (3.4-5.0); BUN Creatinine Ratio 23.6 (10-20); Bilirubin,Total 0.7 mg/dl (0.2-1.0); Creatinine Clr Calc Pharmacy 120.5 ml/min; Est GFR (African American) 106.3 ml/min; Est GFR (Non-African American) 91.8 ml/min; Globulin 3.1 gm/dl (2.5-4.0); Total Protein 6.5 gm/dl (6.0-8.3)
[2022-06-05] MEDS ORDERED: POTASSIUM CHLORIDE 10 MEQ TABCR PO STA (18:17)
[2022-06-05] MEDS ORDERED: GI COCKTAIL ED USE PO ONE (18:22)
[2022-06-05] MEDS ORDERED: SODIUM CHLORIDE 0.9% 500 ML IV ONE (18:23)
[2022-06-05] MEDS ORDERED: METOPROLOL TARTRATE 25 MG TAB PO ONE (20:02)
--- NOTE | 2022-06-05 20:09 | History & Physical Report ---
Date of Service June 05, 2022 Assessment & Plan (1) Chest pain: Plan: Patient is 76-year-old female with PMH HTN, HLD, DM 2, GERD, asthma, morbid obesity, overactive bladder, history of DVT/PE during hospitalization, previous history nocturnal hypoxia requiring oxygen at bedtime however discontinued several weeks ago secondary to no longer requiring presented to ER with complaint of chest pain. Today got out of her wheelchair to sit in chair and when she sat in her chair she had episode of dizziness described as room spinning and upper anterior chest pressure and chest burning that she reports similar to GERD. In ER patient afebrile, P 99-107, BP 135/76, 93% on room air. WBC: 11. Initial high-sensitivity troponin negative. D-dimer: 660. EKG atrial fibrillation, rate 106 Patient given 324mg aspirin by EMS In ER given GI cocktail with reported resolution of chest pressure and decreased chest burning DDX: atrial fibrillation causing CP, GERD, PE, ACS. Risk factors: HTN, hyperlipidemia, DM, obesity CTA chest to R/O PE Repeat EKG in am Trend troponin Echo Lipid panel in am, continue statin Continue aspirin Will start metoprolol tartrate Continue PPI. Add Tums as needed (2) Atrial fibrillation: Plan: ?New onset atrial fibrillation. EKG from 12/21/2017 with atrial fibrillation, EKG 12/20/2017 sinus rhythm Current rate high 90s to low 100s. Denies palpitations TSH pending CTA chest to rule out PE pending Start metoprolol tartrate 12.5mg twice daily Cardiology consult (3) Hypokalemia: Plan: K: 3.0 magnesium: 2.0 In ER given 20meq KCl p.o. Replace and monitor (4) Hypertension: Plan: Continue amlodipine, losartan, HCTZ (5) Hyperlipidemia: Plan: Continue atorvastatin (6) GERD (gastroesophageal reflux disease): Plan: Continue PPI (7) Diabetes mellitus, type II: Plan: Diet controlled A1c: 6.5 on 05/21/2022 NovoLog sliding scale per protocol (8) Deep vein thrombosis: Plan: Prior history DVT, PE during hospitalization. Treated with Coumadin for 6 month s (9) Asthma: Plan: No signs of exacerbation Continue Xopenex as needed (10) Overactive bladder: Plan: Continue trospium (11) Morbid obesity: Plan: BMI: 53 Lifestyle modifications recommended DVT Prophylaxis Heparin SQ DNR/DNI as per discussion with pt Follows with Dr Mckeon for routine care Pt was seen and care coordinated with Dr Dao. See addendum History of Present Illness Chief Complaint: CP Primary Care Provider: Pavan Mckeon MD Patient is 76-year-old female with PMH HTN, HLD, DM 2, GERD, asthma, morbid obesity, overactive bladder, history of DVT/PE during hospitalization, previous history nocturnal hypoxia requiring oxygen at bedtime however discontinued several weeks ago secondary to no longer requiring presented to ER with complaint of chest pain. Patient states uses wheelchair primarily and walker to help with transfers and ambulating through her house. States today got out of her wheelchair to sit in chair and when she sat in her chair she had episode of dizziness described as room spinning and tilting the lasted approximately 10 minutes. Patient reports chronic intermittent vertigo episodes and this feels similar. Also reports started with upper anterior chest pressure and chest burn ing. Patient states this feels like when has flares of her GERD. No prior treatment attempted. Patient called EMS and was given 3 chewable aspirin she was also given Zofran in route, patient reports history of carsickness. In ER patient given GI cocktail and reports no further chest pressure and chest burning has decreased. She denies palpitations, syncope, shortness of breath. Patient denies any known history atrial fibrillation. She does report 5 days ago had diarrhea that lasted 4 days. She took Imodium. No BM for the past 36 hours. Denies abdominal pain. Patient reports prior to onset of diarrhea she was eating broccoli salad and a store-bought rotisserie chicken. No known sick contacts or recent travel. Reports history urinary urgency and incontinence, feels like this is somewhat improved since taking trospium. Denies fever/chills, diaphoresis, N/V, melena, hematochezia, SANTANA, syncope, vision changes, neck pain, orthopnea, cough, sore throat, choking, otalgia, rhinorrhea, paresthesias, increased weakness, extremity edema, rashes, dysuria, hematuria. Allergies Allergy/AdvReac Type Severity Reaction Status Date / Time doxycycline Allergy Intermediate SWELLING Verified 03/12/21 07:09 codeine Allergy Mild PER Verified 03/12/21 07:09 PATIENT "MADE HER MARY ANNE CRAZY" WHEN SHE TOOK ALOT Sulfa (Sulfonamide Allergy Mild Gastrointestinal Verified 03/12/21 07:09 Antibiotics) Upset tetracycline Allergy Mild SWELLING Verified 03/12/21 07:09 TO EYES NARINDER Inhibitors AdvReac Intermediate cough Verified 03/12/21 07:09 Home Medications Medication Instructions Recorded Confirmed Type amlodipine 5 mg tablet 5 mg PO QAM 05/22/20 06/05/22 History aspirin 81 mg tablet,delayed 81 mg PO PM 05/22/20 06/05/22 History release (Adult Aspirin Regimen) atorvastatin 80 mg tablet 80 mg PO PM 05/22/20 06/05/22 History azelastine 205.5 mcg (0.15 %) 1 spray intranasal BID PRN 05/22/20 06/05/22 History nasal spray Congestion hydrochlorothiazide 25 mg tablet 25 mg PO QAM 05/22/20 06/05/22 History lansoprazole 30 mg delayed 30 mg PO BID 05/22/20 06/05/22 History release,disintegrating tablet levalbuterol HCl 0.31 mg/3 mL 0.31 mg inhalation DAILY PRN 05/22/20 06/05/22 Hi story solution for nebulization (Xopenex) Shortness Of Breath losartan 25 mg tablet 25 mg PO PM 05/22/20 06/05/22 History multivitamin (Daily Multi-Vitamin 1 tab PO PM 05/22/20 06/05/22 History tablet) nystatin 100,000 unit/gram topical 1 applic topical DAILY PRN Rash 05/22/20 06/05/22 History cream triamcinolone acetonide 55 mcg 1 spray intranasal DAILY PRN 05/22/20 06/05/22 History nasal spray aerosol (Children's Congestion Nasacort) meclizine 25 mg tablet 25 mg PO TID PRN Dizziness 06/05/22 06/05/22 History trospium 60 mg capsule,extended 60 mg PO PM 06/05/22 06/05/22 History release 24 hr Past Med/Surg History Medical History Acquired lymphedema TO STOMACH> GETS THERAPY/MASSAGE TO MANAGE > WAS COMPLICATION AFTER RADIATION TREATMENT Asthma WELL CONTROLLED> JUST TRIGGERED BY ODORS; no inh Chronic bronchitis Deep vein thrombosis FEBRUARY 2011 > CAUSED BY PROLONGED SITTING DURING A PREVIOUS HOSPITALIZATION > TREATED WITH COUMADIN Diabetes mellitus, type II GERD (gastroesophageal reflux disease) diet controlled History of anesthesia reaction woke up during D&C, colonoscopy Hyperlipidemia Hypertension IBS (irritable bowel syndrome) Lipodermatosclerosis Morbid obesity On home O2 2 lpm qHS Osteoarthritis Overactive bladder Pulmonary embolism FEBRUARY 2011 > CAUSED BY PROLONGED SITTING DURING A PREVIOUS HOSPITALIZATION > TREATED WITH COUMADIN Uterine cancer APR 2014 > RADIATION > RESOLVED Vertigo Vitreous detachment of both eyes Surgical History History of bilateral tubal ligation History of cardiac cath NO STENTS > OVER 10 YRS AGO > DONE FOR CP History of cataract surgery RT History of cholecystectomy History of colonoscopy History of dilatation and curettage History of esophagogastroduodenoscopy (EGD) History of tooth extraction Hx of hernia repair VENTRAL WITH MESH Family History Other No family history of adverse response to anesthesia Social History Smoking Status: Never smoker Second Hand Exposure: No; Hx Alcohol Use: No Hx Substance Use: No Preferred Language: Welsh Communication Ability: Effective Education Sales Consultant Required: No Beliefs That Will Affect Care: None Current Living Situation: Alone Other Information That Helps Us Care for You: No Feels Safe at Home: Yes Safety Concerns: Feels Safe At This Time Assistive Devices: Glasses and Walker Review of Systems Review of Systems: All systems reviewed & are unremarkable except as noted in HPI & below Physical Exam Physical Exam: General: no distress, +obese Head: normocephalic, atraumatic Eyes: conjunctiva non-injected, anicteric ENT: normal inspection external ears, nose, mucous membranes moist Neck: supple, trachea midline Lungs: clear, no respiratory distress, no wheezing/rhonchi/rales CV: Irregularly irregular, rate 102, no murmur, trace pretibial edema Abd: + Protuberant, normal BS, soft, non-tender Ext: no cyanosis, no calf tenderness Neuro: A&O x 3, no focal deficits noted, normal affect Skin: warm, dry Results & Data Results & Data ([facility]) Vital Signs (Past 12 Hours) Vital Signs Temp Pulse Resp BP BP Pulse Ox O2 Del Method 06/05/22 20:01 18 147/101 H 95 06/05/22 18:50 104 H 21 91 Room Air 06/05/22 18:40 109 H 16 Room Air 06/05/22 18:30 104 H 26 H 91 Room Air 06/05/22 18:30 132/84 Room Air 06/05/22 18:20 98 H 22 94 Room Air 06/05/22 18:10 97 H 21 92 Room Air 06/05/22 18:01 98 H 14 91 Room Air 06/05/22 18:01 152/84 H Room Air 06/05/22 18:00 103 H 22 Room Air 06/05/22 17:50 101 H 17 90 Room Air 06/05/22 17:42 107 H 19 93 Room Air 06/05/22 16:28 36.6 C 99 H 16 135/76 93 Room Air Laboratory Results Short CBC 06/05/22 Range/Units 17:20 WBC 11.19 H (4.8-10.8) K/ul Hgb 12.6 (12.0-16.0) g/dl Hct 38.5 (34.1-44.9) % Plt Count 237 (130-400) K/uL BMP 06/05/22 17:20 Sodium 142 Potassium 3.0 L Chloride 103 Carbon Dioxide 29 BUN 13 Creatinine 0.55 L Glucose 128 H Calcium 9.0 Liver Function 06/05/22 Range/Units 17:20 Total Bilirubin 0.7 (0.2-1.0) mg/dl AST 9 L (13-39) U/L ALT 10 (7-52) U/L Alkaline Phosphatase 116 H (34-104) U/L Albumin 3.4 (3.4-5.0) gm/dl Diagnostic Findings Chest X-Ray 06/05/22 16:58 SINGLE VIEW CHEST CLINICAL HISTORY: Atypical chest pain. FINDINGS: An AP, portable, upright chest radiograph is compared to study dated 12/21/2017. The heart is enlarged including atherosclerotic calcification of the thoracic ureter. The pulmonary vasculature is noncongested. Chronic interstitial thickening is similar to previous. The lungs and pleural spaces are clear noted bibasilar scarring/atelectasis. No pneumothorax is seen. The skeletal structures are osteopenic. There is chronic posttraumatic deformity right humerus. Healed rib fractures are noted. IMPRESSION: Cardiomegaly with no acute cardiopulmonary abnormality. ACT 112: Negative or not required by law. Electronically signed by: Veto De La Cruz M.D. 06/05/2022 5:45 PM ECG Rate (beats per minute): 106 Rhythm: atrial fibrillation Code Status & VTE Plan VTE Prophylaxis Plan VTE Prophylaxis will be ordered: Yes Supervising Physician Co-Signing Physician Notes Pt was seen and examined. Agreed with Trina RHODES exam, assessment and plan. 76-year-old female with PMH HTN, HLD, DM 2, GERD, asthma, morbid obesity, overactive bladder, history of DVT/PE during hospitalization to ER with complaint of chest pain. Pt said that today she got up from the wheelchair to sit on the chair when she became dizzy lasted about a few minutes. She said then she developed chest pressure and burning. her son at bedside helping with the history. Pt and her son said her symptoms feel like when he had a flare of her GERD. EMS was called and she was given [address] on her way to the ER with no significant help. Received GI cocktail in the ER that provided some relief. She denies palpitations, syncope, shortness of breath. In the ER lab showed elevated D-dimer, with Potassium 3. EKG showed Afib in the ER. Pt denies any hx of Afib. Reviewed EKG on 12/21/2017 with atrial fibrillation, EKG 12/20/2017 sinus rhythm. Possible she has history of paroxysmal afib. Will start on Low dose metoprolol. Elevated D- dimer, will get a CTA chest with PA protocol. If there is evidence of PE, will start on IV heparin drip. If no PE, will need to address with cardio about anticoagulant in am, not sure if this is new afib or paroxysmal afib. Will check if there is any contraindication why anticoagulant did not start back in 2018 with when EKG showed Afib. Will get an echo in am. K replaced, will monitor. Continue monitor closely in Tele. MD Sylwia
[2022-06-05] MEDS ORDERED: POTASSIUM CHLORIDE CRTAB 20 MEQ TABCR PO STA ×2 (20:27→20:56)
[2022-06-05] MEDS ORDERED: OPTIRAY 300 500mL IV ONE (20:34)
[2022-06-05] MEDS ORDERED: POLYETHYLENE (MIRALAX) 17 GM PACK PO PRN (20:56)
[2022-06-05] MEDS ORDERED: GLUCOSE 40% GEL 15 GM TUBE PO PRN (20:56)
[2022-06-05] MEDS ORDERED: ONDANSETRON INJ 2 MG/ML 2 ML VIAL IV PRN (20:56)
[2022-06-05] MEDS ORDERED: GLUCOSE 10 TAB/TUBE PO PRN (20:56)
[2022-06-05] MEDS ORDERED: NYSTATIN CR 15 GM TUBE EXT PRN (20:56)
[2022-06-05] MEDS ORDERED: GLUCAGON FOR INJ 1 MG VIAL SQ PRN (20:56)
[2022-06-05] MEDS ORDERED: ACETAMINOPHEN 325 MG TAB PO PRN (20:56)
[2022-06-05] MEDS ORDERED: CALCIUM CARBONATE 500 MG CHEWABLE TAB PO PRN (20:56)
[2022-06-05] MEDS ORDERED: CARBOHYDRATES FOR HYPOGLYCEMIA PO PRN (20:56)
[2022-06-05] MEDS ORDERED: DEXTROSE 50% 50 ML SYRINGE IV PRN (20:56)
--- NOTE | 2022-06-05 21:00 | CT Scan Report ---
CT ANGIOGRAM OF THE CHEST CLINICAL HISTORY: Atypical chest pain COMPARISON STUDY: Chest x-ray dated 06/05/2022. Chest CT dated 06/01/2014. TECHNIQUE: Following the IV administration of 112 cc of Optiray 300, CT angiogram of the chest was pe rformed from the upper abdomen to the thoracic inlet utilizing the pulmonary embolus protocol. Images are reviewed in the axial, sagittal, and coronal planes. 3-D MIPS images are created and assessed. I V contrast was administered without complication. A dose lowering technique was utilized adhering to the principles of ALARA. CT DOSE: 858.44 mGy.cm FINDINGS: Thyroid: The thyroid gland is enlarged and heterogeneous. Thoracic aorta: There is atherosclerotic calcification of the thoracic aorta, which is normal in sheree randy and demonstrates standard 3-vessel arch anatomy. No dissection is seen. Pulmonary vasculature: The main pulmonary arteries appear dilated suggesting pulmonary artery hyperte nsion. There are no filling defects identified in main, lobar, or segmental pulmonary branches to sug gest pulmonary embolus. Heart: The heart is enlarged and without pericardial effusion. Lungs and pleural spaces: There is no airspace consolidation or pleural effusion. There are tiny calc ified granulomas. Scarring/atelectasis is noted at the lung bases. The trachea and central airways ar e clear. Mediastinum: There is no mediastinal lymphadenopathy. Joelle: Clear. Axillae: There is no axillary lymphadenopathy. Upper abdomen: There is a small hiatal hernia. Calcified granulomas are noted in the liver and spleen . A 2.2 cm adenoma is noted in the right adrenal gland. Skeletal structures: The skeletal structures are osteopenic. Degenerative change is noted in the thor acic spine. There are mild chronic compression deformities of T3 and T4. No lytic or blastic bony les ions are seen. Advanced arthritic changes in the shoulders. There is chronic posttraumatic deformity right proximal humerus. Healed bilateral rib fractures are noted. IMPRESSION: 1. There is no evidence of pulmonary embolus in the main, lobar, or segmental pulmonary arteries. 2. The lungs are clear. 3. Cardiomegaly. 4. Additional findings as above. ACT 112: Negative or not required by law. Electronically signed by: Veto De La Cruz M.D. 06/05/2022 8:58 PM
[2022-06-05] MEDS ORDERED: FLUTICASONE PROPIONATE NA SPR 16 GM BTL PRN (21:03)
[2022-06-05] MEDS: ASPIRIN 81 MG ECTAB PO SCH (21:51)
[2022-06-05] MEDS: ATORVASTATIN 40 MG TAB PO SCH (21:52)
[2022-06-05] MEDS: LANSOPRAZOLE 30 MG SOLTAB PO SCH (21:52)
[2022-06-05] MEDS: LOSARTAN POTASSIUM 25 MG TAB PO SCH (21:52)
[2022-06-05] MEDS: INSULIN ASPART PER UNIT SC SCH (22:20)
[2022-06-05 22:57] LABS: Appearance Urine Cloudy (Clear); Bacteria Urine Automated 4+ (Negative); Bilirubin Urine Negative (Negative); Blood Urine Trace (Negative); Color Urine Yellow; Epithelial Cell Urine Auto >30 /lpf (0-5); Glucose Urine UA Negative (Negative); Ketones Urine Negative (Negative); Leukocyte Esterase Urine 3+ (Negative); Nitrite Urine Positive (Negative); Protein Urine Trace (Negative); Specific Gravity Urine 1.041 (1.000-1.030); Urobilinogen Urine Negative (Negative); WBC Urine Automated >30 /hpf (0-5); pH Urine 6.5 (4.5-7.5)
[2022-06-05 23:15] LABS: RBC Urine Automated 0-4 /hpf (0-4)
[2022-06-05] MEDS: CEFEPIME 2,000 MG in SYRINGE 0 ML IV SCH (23:59)
[2022-06-06 05:55] LABS: Hematocrit (blood only) 36.2 % (34.1-44.9); Hemoglobin 11.6 g/dl (12.0-16.0); Mean Corpuscular Volume 87.2 fL (80.0-100.0); Mean Platelet Volume 9.7 fL (9.4-12.3); Platelet Count 208 K/uL (130-400); RDW Coefficient of Variation 16.2 % (11.5-14.5); RDW Standard Deviation 51.5 fL (36.4-46.3); Red Blood Count 4.15 M/uL (3.93-5.22); White Blood Count 10.67 K/ul (4.8-10.8)
[2022-06-06] MEDS ORDERED: HEPARIN SOD 5,000 UNIT/0.5 ML VIAL SQ SCH (06:00)
[2022-06-06 06:25] LABS: Troponin I High Sensitivity 7.1 pg/ml (0-14)
[2022-06-06] MEDS ORDERED: POTASSIUM CHLORIDE CRTAB 20 MEQ TABCR PO ONE (07:00)
[2022-06-06 07:30] LABS: Calcium 8.9 mg/dl (8.5-10.1); Chol HDL Ratio 3.4 (0-5); Est GFR (African American) 109.7 ml/min; Est GFR (Non-African American) 94.7 ml/min; Magnesium 2.2 mg/dl (1.7-2.4); Potassium 3.7 mmol/L (3.5-5.1)
[2022-06-06] MEDS: INSULIN ASPART PER UNIT SC SCH ×4 (08:21→21:00)
--- NOTE | 2022-06-06 08:40 | Electrocardiogram Report ---
Test Reason : Blood Pressure : / mmHG Vent. Rate : 106 BPM Atrial Rate : 110 BPM P-R Int : 000 ms QRS Dur : 100 ms QT Int : 362 ms P-R-T Axes : 000 -01 152 degrees QTc Int : 480 ms Poor data quality, interpretation may be adversely affected Atrial fibrillation with rapid ventricular response Low voltage QRS Cannot rule out Inferior infarct , age undetermined Abnormal ECG When compared with ECG of 21-DEC-2017 06:28, Minimal criteria for Inferior infarct are now Present Nonspecific T wave abnormality now evident in Inferior leads Confirmed by Dandre Cuadra ([id number]) on 06/06/2022 8:40:25 AM Referred By: REFERRED SELF Confirmed By:Dandre Cuadra
[2022-06-06] MEDS: hydroCHLOROthiazide 25 MG TAB PO SCH (08:57)
[2022-06-06] MEDS: LANSOPRAZOLE 30 MG SOLTAB PO SCH ×2 (08:57→20:38)
[2022-06-06] MEDS ORDERED: METOPROLOL TARTRATE 25 MG TAB PO SCH (09:00)
[2022-06-06] MEDS ORDERED: amLODIPine BESYLATE 5 MG TAB PO SCH (09:00)
[2022-06-06] MEDS ORDERED: FAMOTIDINE 20 MG TAB PO PRN (10:46)
[2022-06-06] MEDS ORDERED: CALCIUM CARBONATE 500 MG CHEWABLE TAB PO PRN (10:46)
--- NOTE | 2022-06-06 11:02 | Hospitalist Progress Note ---
Date of Service June 06, 2022 Assessment & Plan (1) Chest pain: Plan: resolved pain overnight, no ACS present. Chest discomfort was most likely heartburn retrospectively. Also with new onset afib which may be contributing. (2) Atrial fibrillation: Plan: ?New onset atrial fibrillation. EKG from 12/21/2017 with atrial fibrillation, EKG 12/20/2017 sinus rhythm Continue BB with changes per cardiology. Not on anticoagulation at this time, however, CHADs score is 5 and this would be appropriate. Defer selection of this to cardiology. (3) Hypokalemia: Plan: K and Mg repleted overnight. (4) Hypertension: Plan: chronic, at goal. Continue amlodipine, losartan, HCTZ (5) Hyperlipidemia: Plan: chronic, stable. Continue atorvastatin per home regimen. (6) GERD (gastroesophageal reflux disease): Plan: chronic with breakthrough heartburn, use pepcid and TUMS second line for breakthrough (7) Diabetes mellitus, type II: Plan: Diet, controlled A1c: 6.5 on 05/21/2022 NovoLog sliding scale per protocol (8) Deep vein thrombosis: Plan: Prior history DVT, PE during hospitalization. Treated with Coumadin for 6 months (9) Asthma: Plan: chronic, stable. No signs of exacerbation Continue Xopenex as needed (10) Overactive bladder: Plan: Continue trospium (11) Morbid obesity: Plan: BMI: 53 Lifestyle modifications recommended DVT Prophylaxis Heparin SQ DNR/DNI as per discussion with pt Follows with Dr Mckeon for routine care Grisel Lino DO [facility] Hospitalist Admission and Anticipated Discharge Date Admission Date: June 05, 2022 Subjective 76 yo F presents with chest pain and flushing across her chest. Had some dizziness at home but this resolved prior to EMS arrival. Recently with 3 days of diarrhea, that has resolved. Denies abodminal pain, SOB, chest pain today. Mentions some breakthrough heartburn even this morning. Takes Prevacid twice daily chronically at home. No BM reported since Wed. Morbidly obese and lives alone. Ambulates with walker at baseline. Home health for lymphedema therapy and PT/OT ongoing. Recently with abx therapy outpatient but still is experiencing UTI symptoms. Still in afib on the monitor which is new for her and rate is around 100 bpm. Review of Systems Review of Systems: All systems were reviewed and negative except as indicated above. Physical Exam Physical Exam: CONSTITUTIONAL: obese, vitals as above, generally well- appearing, NAD EYES: normal conjunctivae, no scleral icterus ENT: external ear and nose normal, NAD NECK: trachea midline RESPIRATORY: clear to auscultation bilaterally, no crackles, rales or wheezes, normal respiratory effort CARDIOVASCULAR: regular rate and rhythm, S1 and 2 heard without murmurs, gallops or rubs, no JVD, no peripheral edema CHEST: inspection of chest was normal GASTROINTESTINAL: soft, nontender, ND, no guarding MUSCULOSKELETAL: strength 5/5 throughout, head is normocephalic and atraumatic SKIN: warm and dry NEUROLOGIC: CN 2-12 grossly intact, no sensory deficit, normal cognition, normal speech, no tremor PSYCHIATRIC: alert cooperative and oriented to person, place and time. Results & Data Results & Data ([facility]) Vital Signs (Past 12 Hours) Vital Signs Temp Pulse Resp BP Pulse Ox O2 Del Method 06/06/22 08:57 36.9 C 110 H 18 124/73 95 Room Air 06/06/22 04:00 37.0 C 95 H 18 100/64 92 Room Air 06/05/22 23:00 36.6 C 89 18 121/58 L 93 Room Air Laboratory Results Short CBC 06/05/22 06/06/22 Range/Units 17:20 05:37 WBC 11.19 H 10.67 (4.8-10.8) K/ul Hgb 12.6 11.6 L (12.0-16.0) g/dl Hct 38.5 36.2 (34.1-44.9) % Plt Count 237 208 (130-400) K/uL BMP 06/05/22 06/06/22 17:20 05:37 Sodium 142 139 Potassium 3.0 L 3.7 D Chloride 103 102 Carbon Dioxide 29 32 BUN 13 11 Creatinine 0.55 L 0.50 L Glucose 128 H 114 H Calcium 9.0 8.9 Liver Function 06/05/22 Range/Units 17:20 Total Bilirubin 0.7 (0.2-1.0) mg/dl AST 9 L (13-39) U/L ALT 10 (7-52) U/L Alkaline Phosphatase 116 H (34-104) U/L Albumin 3.4 (3.4-5.0) gm/dl Urine 06/05/22 Range/Units 22:23 Urine Color Yellow Urine Appearance Cloudy A (Clear) Urine pH 6.5 (4.5-7.5) Ur Specific [place] 1.041 H (1.000-1.030) Urine Protein Trace H (Negative) Urine Glucose (UA) Negative (Negative) Medications Administered Current Inpatient Medications Acetaminophen (Acetaminophen 325 Mg Tab) 650 mg PO Q4H PRN PRN Reason: Pain or Fever Stop: 07/05/22 20:55 Amlodipine Besylate (Amlodipine Besylate 5 Mg Tab) 5 mg PO QAM ANA PAULA Stop: 07/06/22 08:59 Last Admin: 06/06/22 08:57 Dose: 5 mg Aspirin (Aspirin 81 Mg Ectab) 81 mg PO PM ANA PAULA Stop: 07/05/22 20:59 Last Admin: 06/05/22 21:51 Dose: 81 mg Atorvastatin Calcium (Atorvastatin 40 Mg Tab) 80 mg PO PM ANA PAULA Stop: 07/05/22 20:59 Last Admin: 06/05/22 21:52 Dose: 80 mg Calcium Carbonate (Calcium Carbonate 500 Mg Chewable Tab) 1,000 mg PO Q6H PRN PRN Reason: Indigestion Stop: 07/06/22 10:45 Dextrose (Dextrose 50% 50 Ml Syringe) 25 - 50 ml IV UD PRN; Protocol PRN Reason: Hypoglycemia Protocol Stop: 07/05/22 20:55 Famotidine (Famotidine 20 Mg Tab) 20 mg PO BID PRN PRN Reason: breakthrough heartburn Stop: 07/06/22 10:59 Fluticasone Propionate (Fluticasone Propionate Na Spr 16 Gm Btl) 1 sprays NA DAILY PRN PRN Reason: Congestion Stop: 07/05/22 21:02 Glucagon (Glucagon For Inj 1 Mg Vial) 1 mg SQ UD PRN; Protocol PRN Reason: Hypoglycemia Protocol Stop: 07/05/22 20:55 Glucose (Glucose 40% Gel 15 Gm Tube) 15 - 30 gm PO UD PRN; Protocol PRN Reason: Hypoglycemia Protocol Stop: 07/05/22 20:55 Glucose (Glucose 10 Tab/Tube) 4 - 8 tab PO UD PRN; Protocol PRN Reason: Hypoglycemia Treatment Stop: 07/05/22 20:55 Heparin Sodium (Porcine) (Heparin Sod 5,000 Unit/0.5 Ml Vial) 5,000 units SQ Q8 ANA PAULA Stop: 07/06/22 05:59 Last Admin: 06/06/22 06:02 Dose: 5,000 units Hydrochlorothiazide (Hydrochlorothiazide 25 Mg Tab) 25 mg PO QAM ANA PAULA Stop: 07/06/22 08:59 Last Admin: 06/06/22 08:57 Dose: 25 mg Cefepime HCl 2,000 mg/ Syringe 20 mls @ 5 mls/min IV Q12H [facility]; Protocol Stop: 06/15/22 23:29 Last Admin: 06/05/22 23:59 Dose: 5 mls/min Insulin Aspart (Insulin Aspart Per Unit) 0 units SC ACHS [facility] Stop: 07/05/22 20:59 Last Admin: 06/06/22 08:21 Dose: Not Given Lansoprazole (Lansoprazole 30 Mg Soltab) 30 mg PO BID [facility] Stop: 07/05/22 20:59 Last Admin: 06/06/22 08:57 Dose: 30 mg Losartan Potassium (Losartan Potassium 25 Mg Tab) 25 mg PO PM ANA PAULA Stop: 07/05/22 20:59 Last Admin: 06/05/22 21:52 Dose: 25 mg Metoprolol Tartrate (Metoprolol Tartrate 25 Mg Tab) 12.5 mg PO BID [facility] Stop: 07/06/22 08:59 Last Admin: 06/06/22 10:05 Dose: 12.5 mg Miscellaneous (Carbohydrates For Hypoglycemia ) 15 - 30 gm PO UD PRN PRN Reason: Hypoglycemia Protocol Stop: 07/05/22 20:55 Miscellaneous (Trospium-Order Awaiting Action) 1 each N/A QS [facility] Stop: 07/06/22 00:00 Last Admin: 06/06/22 08:50 Dose: Not Given Nystatin (Nystatin Cr 15 Gm Tube) 1 appln EXT DAILY PRN PRN Reason: Rash Stop: 07/05/22 20:55 Ondansetron HCl (Ondansetron Inj 2 Mg/Ml 2 Ml Vial) 4 mg IV Q6H PRN PRN Reason: Nausea Stop: 07/05/22 20:55 Polyethylene Glycol (Polyethylene (Miralax) 17 Gm Pack) 17 gm PO DAILY PRN PRN Reason: Constipation Stop: 07/05/22 20:55 (1) Atrial fibrillation Atrial fibrillation type: unspecified Qualified Code(s): I48.91 - Unspecified atrial fibrillation
[2022-06-06] MEDS: CEFEPIME 2,000 MG in SYRINGE 0 ML IV SCH (11:46)
--- NOTE | 2022-06-06 13:18 | Cardiology Consultation ---
Date of Consultation June 06, 2022 Assessment & Plan (1) Atrial fibrillation with rapid ventricular response: (2) Chest pain: (3) Morbid obesity: (4) Hypertension: Plan 76-year-old female with complex history including morbid obesity nearly homebound, hypertension chronic stasis edema who recently had suffered issues with urinary tract infection and subsequent several days of diarrhea. Date of admission she began experiencing increased dizziness lightness and chest press ure with elevated heart rate On ER presentation patient hypokalemic and in atrial fibrillation. No signs of acute pulmonary embolus or myocardial infarction on serial testing Heart rate better on low-dose beta-iker initiated in emergency room Recommendations: Patient high [id number] 2 score will initiate anticoagulation. Would choose Eliquis 5 mg twice per day if insurance coverage allows. Patient poor IV access and difficult blood draws. Difficulty leaving home for any testing Will control heart rate of atrial fibrillation by increasing metoprolol tartrate to 25 mg twice per day. Will discontinue amlodipine given chronic edema Add low-dose spironolactone at 12.5 mg/day to aid in chronic hypokalemia and likely diastolic component of chronic edema Will follow in hospital History of Present Illness Reason for Consultation: New onset atrial fibrillation, chest tightness Requesting Physician: Dr. Lino Attending Physician: Grisel Lino, DO History of Present Illness Patient is a 76-year-old female with ongoing issues as per discussion with patient and review of records 1. Morbid obesity 2. Hypertension 3. Type 2 diabetes mellitus 4. Prior DVT/pulmonary embolus 2010 5. Chronic stasis/lymphedema 6. Nocturnal hypoxia/obstructive sleep apnea previously on oxygen supplementation Patient presents this admission noting recent difficulties with urinary tract infection followed by several days history of diarrhea, loose stools. Patient notes having been seen by home health nursing with normal heart rates. Day of admission she began experience symptoms of chest pressure and racing heart rhythm palpitations as well as increased vertigo complaints. She presented to the emergency room where she was found to be in atrial fibrillation with elevated ventricular response rate. ER evaluation otherwise unrevealing with symptoms improved following treatment of gastroesophageal reflux as well This morning patient without complaint. No chest pain or indigestion. No shortness of breath. No dizziness or lightheadedness but sedentary. No fevers or chills Recent history as described urinary tract infection followed by several days diarrhea possibly secondary to medication. Laboratory studies noted hypokalemia on presentation now resolved No history rheumatic fever scarlet fever renal or hepatic disease no history of valvular heart disease She denies prior history of TIA or stroke Allergies Allergy/AdvReac Type Severity Reaction Status Date / Time doxycycline Allergy Intermediate SWELLING Verified 03/12/21 07:09 codeine Allergy Mild PER Verified 03/12/21 07:09 PATIENT "MADE HER MARY ANNE CRAZY" WHEN SHE TOOK ALOT Sulfa (Sulfonamide Allergy Mild Gastrointestinal Verified 03/12/21 07:09 Antibiotics) Upset tetracycline Allergy Mild SWELLING Verified 03/12/21 07:09 TO EYES NARINDER Inhibitors AdvReac Intermediate cough Verified 03/12/21 07:09 Home Medications Medication Instructions Recorded Confirmed Type amlodipine 5 mg tablet 5 mg PO QAM 05/22/20 06/05/22 History aspirin 81 mg tablet,delayed 81 mg PO PM 05/22/20 06/05/22 History release (Adult Aspirin Regimen) atorvastatin 80 mg tablet 80 mg PO PM 05/22/20 06/05/22 History azelastine 205.5 mcg (0.15 %) 1 spray intranasal BID PRN 05/22/20 06/05/22 History nasal spray Congestion hydrochlorothiazide 25 mg tablet 25 mg PO QAM 05/22/20 06/05/22 History lansoprazole 30 mg delayed 30 mg PO BID 05/22/20 06/05/22 History release,disintegrating tablet levalbuterol HCl 0.31 mg/3 mL 0.31 mg inhalation DAILY PRN 05/22/20 06/05/22 History solution for nebulization (Xopenex) Shortness Of Breath losartan 25 mg tablet 25 mg PO PM 05/22/20 06/05/22 History multivitamin (Daily Multi-Vitamin 1 tab PO PM 05/22/20 06/05/22 History tablet) nystatin 100,000 unit/gram topical 1 applic topical DAILY PRN Rash 05/22/20 06/05/22 History cream triamcinolone acetonide 55 mcg 1 spray intranasal DAILY PRN 05/22/20 06/05/22 History nasal spray aerosol ([facility] Congestion Nasacort) meclizine 25 mg tablet 25 mg PO TID PRN Dizziness 06/05/22 06/05/22 History trospium 60 mg capsule,extended 60 mg PO PM 06/05/22 06/05/22 History release 24 hr Patient History Medical History Acquired lymphedema TO STOMACH> GETS THERAPY/MASSAGE TO MANAGE > WAS COMPLICATION AFTER RADIATION TREATMENT Asthma WELL CONTROLLED> JUST TRIGGERED BY ODORS; no inh Chronic bronchitis Deep vein thrombosis FEBRUARY 2011 > CAUSED BY PROLONGED SITTING DURING A PREVIOUS HOSPITALIZATION > TREATED WITH COUMADIN Diabetes mellitus, type II GERD (gastroesophageal reflux disease) diet controlled History of anesthesia reaction woke up during D&C, colonoscopy Hyperlipidemia Hypertension IBS (irritable bowel syndrome) Lipodermatosclerosis Morbid obesity On home O2 2 lpm qHS Osteoarthritis Overactive bladder Pulmonary embolism FEBRUARY 2011 > CAUSED BY PROLONGED SITTING DURING A PREVIOUS HOSPITALIZATION > TREATED WITH COUMADIN Uterine cancer APR 2014 > RADIATION > RESOLVED Vertigo Vitreous detachment of both eyes Surgical History History of bilateral tubal ligation History of cardiac cath NO STENTS > OVER 10 YRS AGO > DONE FOR CP History of cataract surgery RT History of cholecystectomy History of colonoscopy History of dilatation and curettage History of esophagogastroduodenoscopy (EGD) History of tooth extraction Hx of hernia repair VENTRAL WITH MESH Family History Other No family history of adverse response to anesthesia Social History Smoking Status: Never smoker Second Hand Exposure: No; Hx Alcohol Use: No Hx Substance Use: No Preferred Language: Turkmen Communication Ability: Effective 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 Beliefs That Will Affect Care: None Current Living Situation: Alone Other Information That Helps Us Care for You: No Feels Safe at Home: Yes Safety Concerns: Feels Safe At This Time Assistive Devices: Glasses and Walker Review of Systems Review of Systems: All systems reviewed & are unremarkable except as noted in HPI & below Physical Exam Constitutional: + morbidly obese; no acute distress Eyes: PERRL, conjunctivae normal, anicteric sclerae ENMT: external ear and nose normal, oropharynx normal Neck: + thick neck Respiratory: normal respiratory effort, lungs clear to auscultation Cardiovascular: Rate/Rhythm: + tachycardic and + irregularly irregular Heart Sounds: normal S1 and normal S2 Vessels: no JVD Extremities: + edema (1-2+ with chronic stasis changes) Gastrointestinal (Abdomen): normal bowel sounds, soft, nontender, no hepatosplenomegaly Musculoskeletal: no cyanosis or clubbing, extremities motor strength 5/5 Results & Data ([facility]) Vital Signs (Past 12 Hours) Vital Signs Temp Pulse Resp BP Pulse Ox O2 Del Method 06/06/22 11:54 36.8 C 87 18 108/71 93 Room Air 06/06/22 10:00 Room Air 06/06/22 08:57 36.9 C 110 H 18 124/73 95 Room Air 06/06/22 04:00 37.0 C 95 H 18 100/64 92 Room Air Laboratory Results Laboratory Results - last 24 hr 06/05/22 06/05/22 06/05/22 17:20 17:20 17:20 WBC 11.19 H RBC 4.51 Hgb 12.6 Hct 38.5 MCV 85.4 MCH 27.9 MCHC 32.7 RDW Std Deviation 49.3 H RDW Coeff of Rodolfo 15.9 H Plt Count 237 MPV 10.1 Immature Gran % (Auto) 0.5 Neut % (Auto) 83.1 Lymph % (Auto) 10.1 [place] % (Auto) 5.6 Eos % (Auto) 0.4 Baso % (Auto) 0.3 Neut # (Auto) 9.29 H Lymph # (Auto) 1.13 L [place] # (Auto) 0.63 Eos # (Auto) 0.05 Baso # (Auto) 0.03 Immature Gran # (Auto) 0.06 H PT 10.6 Cancelled INR 1.0 Cancelled APTT 23.4 Cancelled PTT Ratio 0.9 Cancelled D-Dimer 660 H* Sodium Potassium Chloride Carbon Dioxide Anion Gap BUN Creatinine Est Cr Clr Drug Dosing Est GFR ( Amer) Est GFR (Non-Af Amer) BUN/Creatinine Ratio Glucose POC Glucose Calcium Magnesium Total Bilirubin AST ALT Alkaline Phosphatase Troponin I High Sens Total Protein Albumin Globulin Albumin/Globulin Ratio Triglycerides Cholesterol LDL Cholesterol, Calc VLDL Cholesterol, Calc HDL Cholesterol Cholesterol/HDL Ratio Lipase TSH Urine Color Urine Appearance Urine pH Ur Specific [place] Urine Protein Urine Glucose (UA) Urine Ketones Urine Blood Urine Nitrite Urine Bilirubin Urine Urobilinogen Ur Leukocyte Esterase Urine WBC (Auto) Urine RBC (Auto) U Hyaline Cast (Auto) U Epithel Cells (Auto) Urine Bacteria (Auto) Urine Yeast Hepatitis C Ab (EIA) Hep C Ab Signal/Cutoff SARS-CoV-2, RNA, NAAT 06/05/22 06/05/22 06/05/22 17:20 17:20 17:21 WBC RBC Hgb Hct MCV MCH MCHC RDW Std Deviation RDW Coeff of Rodolfo Plt Count MPV Immature Gran % (Auto) Neut % (Auto) Lymph % (Auto) [place] % (Auto) Eos % (Auto) Baso % (Auto) Neut # (Auto) Lymph # (Auto) [place] # (Auto) Eos # (Auto) Baso # (Auto) Immature Gran # (Auto) PT INR APTT PTT Ratio D-Dimer Sodium 142 Potassium 3.0 L Chloride 103 Carbon Dioxide 29 Anion Gap 10 BUN 13 Creatinine 0.55 L Est Cr Clr Drug Dosing 120.5 Est GFR ( Amer) 106.3 Est GFR (Non-Af Amer) 91.8 BUN/Creatinine Ratio 23.6 H Glucose 128 H POC Glucose Calcium 9.0 Magnesium 2.0 Total Bilirubin 0.7 AST 9 L ALT 10 Alkaline Phosphatase 116 H Troponin I High Sens 5.3 Total Protein 6.5 Albumin 3.4 Globulin 3.1 Albumin/Globulin Ratio 1.1 Triglycerides Cholesterol LDL Cholesterol, Calc VLDL Cholesterol, Calc HDL Cholesterol Cholesterol/HDL Ratio Lipase 10 L TSH 0.970 Urine Color Urine Appearance Urine pH Ur Specific [place] Urine Protein Urine Glucose (UA) Urine Ketones Urine Blood Urine Nitrite Urine Bilirubin Urine Urobilinogen Ur Leukocyte Esterase Urine WBC (Auto) Urine RBC (Auto) U Hyaline Cast (Auto) U Epithel Cells (Auto) Urine Bacteria (Auto) Urine Yeast Hepatitis C Ab (EIA) Hep C Ab Signal/Cutoff SARS-CoV-2, RNA, NAAT 06/05/22 06/05/22 06/05/22 18:45 21:19 22:23 WBC RBC Hgb Hct MCV MCH MCHC RDW Std Deviation RDW Coeff of Rodolfo Plt Count MPV Immature Gran % (Auto) Neut % (Auto) Lymph % (Auto) [place] % (Auto) Eos % (Auto) Baso % (Auto) Neut # (Auto) Lymph # (Auto) [place] # (Auto) Eos # (Auto) Baso # (Auto) Immature Gran # (Auto) PT INR APTT PTT Ratio D-Dimer Sodium Potassium Chloride Carbon Dioxide Anion Gap BUN Creatinine Est Cr Clr Drug Dosing Est GFR ( Amer) Est GFR (Non-Af Amer) BUN/Creatinine Ratio Glucose POC Glucose 139 H Calcium Magnesium Total Bilirubin AST ALT Alkaline Phosphatase Troponin I High Sens Total Protein Albumin Globulin Albumin/Globulin Ratio Triglycerides Cholesterol LDL Cholesterol, Calc VLDL Cholesterol, Calc HDL Cholesterol Cholesterol/HDL Ratio Lipase TSH Urine Color Yellow Urine Appearance Cloudy A Urine pH 6.5 Ur Specific [place] 1.041 H Urine Protein Trace H Urine Glucose (UA) Negative Urine Ketones Negative Urine Blood Trace H Urine Nitrite Positive A Urine Bilirubin Negative Urine Urobilinogen Negative Ur Leukocyte Esterase 3+ H Urine WBC (Auto) >30 H Urine RBC (Auto) 0-4 U Hyaline Cast (Auto) 1-5 U Epithel Cells (Auto) >30 H Urine Bacteria (Auto) 4+ H Urine Yeast Not Reportable Hepatitis C Ab (EIA) Hep C Ab Signal/Cutoff SARS-CoV-2, RNA, NAAT NEGATIVE 06/05/22 06/06/22 06/06/22 22:39 05:37 05:37 WBC 10.67 RBC 4.15 Hgb 11.6 L Hct 36.2 MCV 87.2 MCH 28.0 MCHC 32.0 RDW Std Deviation 51.5 H RDW Coeff of Rodolfo 16.2 H Plt Count 208 MPV 9.7 Immature Gran % (Auto) Neut % (Auto) Lymph % (Auto) [place] % (Auto) Eos % (Auto) Baso % (Auto) Neut # (Auto) Lymph # (Auto) [place] # (Auto) Eos # (Auto) Baso # (Auto) Immature Gran # (Auto) PT INR APTT PTT Ratio D-Dimer Sodium 139 Potassium 3.7 D Chloride 102 Carbon Dioxide 32 Anion Gap 5 BUN 11 Creatinine 0.50 L Est Cr Clr Drug Dosing 127.0 Est GFR ( Amer) 109.7 Est GFR (Non-Af Amer) 94.7 BUN/Creatinine Ratio 22.0 H Glucose 114 H POC Glucose Calcium 8.9 Magnesium 2.2 Total Bilirubin AST ALT Alkaline Phosphatase Troponin I High Sens 7.9 7.1 Total Protein Albumin Globulin Albumin/Globulin Ratio Triglycerides 96 Cholesterol 152 LDL Cholesterol, Calc 88 VLDL Cholesterol, Calc 19 HDL Cholesterol 45 Cholesterol/HDL Ratio 3.4 Lipase TSH Urine Color Urine Appearance Urine pH Ur Specific [place] Urine Protein Urine Glucose (UA) Urine Ketones Urine Blood Urine Nitrite Urine Bilirubin Urine Urobilinogen Ur Leukocyte Esterase Urine WBC (Auto) Urine RBC (Auto) U Hyaline Cast (Auto) U Epithel Cells (Auto) Urine Bacteria (Auto) Urine Yeast Hepatitis C Ab (EIA) Hep C Ab Signal/Cutoff SARS-CoV-2, RNA, NAAT 06/06/22 06/06/22 06/06/22 05:37 08:14 11:25 WBC RBC Hgb Hct MCV MCH MCHC RDW Std Deviation RDW Coeff of Rodolfo Plt Count MPV Immature Gran % (Auto) Neut % (Auto) Lymph % (Auto) [place] % (Auto) Eos % (Auto) Baso % (Auto) Neut # (Auto) Lymph # (Auto) [place] # (Auto) Eos # (Auto) Baso # (Auto) Immature Gran # (Auto) PT INR APTT PTT Ratio D-Dimer Sodium Potassium Chloride Carbon Dioxide Anion Gap BUN Creatinine Est Cr Clr Drug Dosing Est GFR ( Amer) Est GFR (Non-Af Amer) BUN/Creatinine Ratio Glucose POC Glucose 102 H 112 H Calcium Magnesium Total Bilirubin AST ALT Alkaline Phosphatase Troponin I High Sens Total Protein Albumin Globulin Albumin/Globulin Ratio Triglycerides Cholesterol LDL Cholesterol, Calc VLDL Cholesterol, Calc HDL Cholesterol Cholesterol/HDL Ratio Lipase TSH Urine Color Urine Appearance Urine pH Ur Specific [place] Urine Protein Urine Glucose (UA) Urine Ketones Urine Blood Urine Nitrite Urine Bilirubin Urine Urobilinogen Ur Leukocyte Esterase Urine WBC (Auto) Urine RBC (Auto) U Hyaline Cast (Auto) U Epithel Cells (Auto) Urine Bacteria (Auto) Urine Yeast Hepatitis C Ab (EIA) Pending Hep C Ab Signal/Cutoff Pending SARS-CoV-2, RNA, NAAT (1) Chest pain Chest pain type: unspecified Qualified Code(s): R07.9 - Chest pain, unspecified
[2022-06-06] MEDS ORDERED: METOPROLOL TARTRATE 25 MG TAB PO ONE (13:20)
[2022-06-06] MEDS: APIXABAN 5 MG TABLET PO SCH ×2 (14:47→20:36)
[2022-06-06] MEDS: SPIRONOLACTONE 12.5 MG TAB PO SCH (15:27)
[2022-06-06] MEDS: METOPROLOL TARTRATE 25 MG TAB PO SCH (20:37)
[2022-06-06] MEDS: LOSARTAN POTASSIUM 25 MG TAB PO SCH (20:37)
[2022-06-06] MEDS: ASPIRIN 81 MG ECTAB PO SCH (20:38)
[2022-06-06] MEDS: ATORVASTATIN 40 MG TAB PO SCH (20:38)
--- NOTE | 2022-06-06 22:43 | Electrocardiogram Report ---
Test Reason : Blood Pressure : / mmHG Vent. Rate : 088 BPM Atrial Rate : 078 BPM P-R Int : 000 ms QRS Dur : 098 ms QT Int : 386 ms P-R-T Axes : 000 005 028 degrees QTc Int : 467 ms Atrial fibrillation Low voltage QRS Cannot rule out Inferior infarct (cited on or before 05-JUN-2022) Abnormal ECG When compared with ECG of 05-JUN-2022 16:25, Nonspecific T wave abnormality, improved in Inferior leads Nonspecific T wave abnormality no longer evident in Lateral leads Confirmed by Dandre Cuadra ([id number]) on 06/06/2022 10:43:17 PM Referred By: REFERRED SELF Confirmed By:Dandre Cuadra
[2022-06-07] MEDS: CEFEPIME 2,000 MG in SYRINGE 0 ML IV SCH (00:50)
[2022-06-07] MEDS: INSULIN ASPART PER UNIT SC SCH ×2 (08:38→12:02)
[2022-06-07 08:45] LABS: Hematocrit (blood only) 37.1 % (34.1-44.9); Hemoglobin 11.7 g/dl (12.0-16.0); Mean Corpuscular Hemoglobin 27.3 pg (25.0-34.0); Mean Corpuscular Hgb Conc 31.5 g/dL (32.0-36.0); Mean Corpuscular Volume 86.7 fL (80.0-100.0); Mean Platelet Volume 10.6 fL (9.4-12.3); Platelet Count 224 K/uL (130-400); RDW Coefficient of Variation 16.3 % (11.5-14.5); RDW Standard Deviation 51.2 fL (36.4-46.3); Red Blood Count 4.28 M/uL (3.93-5.22); White Blood Count 8.42 K/ul (4.8-10.8)
[2022-06-07] MEDS ORDERED: NITROFURANTOIN MONOHYDRATE 100 MG CAP PO SCH (09:00)
[2022-06-07 09:15] LABS: BUN Creatinine Ratio 22.2 (10-20); Calcium 8.9 mg/dl (8.5-10.1); Creatinine Clr Calc Pharmacy 117.4 ml/min; Est GFR (Non-African American) 92.3 ml/min; Potassium 3.7 mmol/L (3.5-5.1)
[2022-06-07] MEDS: LANSOPRAZOLE 30 MG SOLTAB PO SCH (09:26)
[2022-06-07] MEDS: APIXABAN 5 MG TABLET PO SCH (09:27)
[2022-06-07] MEDS: SPIRONOLACTONE 12.5 MG TAB PO SCH (09:27)
[2022-06-07] MEDS: hydroCHLOROthiazide 25 MG TAB PO SCH (09:27)
[2022-06-07] MEDS: METOPROLOL TARTRATE 25 MG TAB PO SCH (09:27)
--- NOTE | 2022-06-07 12:45 | Cardiology Progress Note ---
Date of Service June 07, 2022 Assessment & Plan (1) Atrial fibrillation with rapid ventricular response: (2) Chest pain: (3) Morbid obesity: (4) Hypertension: Plan 76-year-old female with complex history including morbid obesity nearly homebound, hypertension chronic stasis edema who recently had suffered issues with urinary tract infection and subsequent several days of diarrhea. Date of admission she began experiencing increased dizziness lightness and chest pressure with elevated heart rate On ER presentation patient hypokalemic and in atrial fibrillation. No signs of acute pulmonary embolus or myocardial infarction on serial testing Heart rate better on low-dose beta-iker initiated in emergency room Recommendations: Atrial fibrillation better control with oral regimen. Patient anticoagulated with Eliquis. As per prior recommendations we will discontinue amlodipine, add low-dose spironolactone. Today we will change metoprolol to tartrate to metoprolol succinate 25 mg twice per day Suspect patient's atrial fibrillation will remain persistent with goals heart rate and anticoagulation Admission and Anticipated Discharge Date Admission Date: June 06, 2022 Subjective Patient seen and examined, chart, medications, telemetry reviewed. Patient feels improved this morning no further chest discomfort or tachypalpitations no dizziness. She remains in atrial fibrillation with good rate control. No worsening edema. Slept well last night. Sitting out of bed in chair Review of Systems Review of Systems: All systems reviewed & are unremarkable except as noted in Subjective Physical Exam Constitutional: + morbidly obese; no acute distress Eyes: PERRL, conjunctivae normal, anicteric sclerae ENMT: external ear and nose normal, oropharynx normal Neck: + thick neck Respiratory: normal respiratory effort, lungs clear to auscultation Cardiovascular: Rate/Rhythm: + tachycardic and + irregularly irregular Heart Sounds: normal S1 and normal S2 Vessels: no JVD Extremities: + edema (1-2+ with chronic stasis changes) Gastrointestinal (Abdomen): normal bowel sounds, soft, nontender, no hepatosplenomegaly Musculoskeletal: no cyanosis or clubbing, extremities motor strength 5/5 Results & Data ([facility]) Vital Signs (Past 12 Hours) Vital Signs Temp Pulse Pulse Resp BP BP Pulse Ox 06/07/22 11:45 37.1 C 86 18 100/67 94 06/07/22 09:10 06/07/22 08:12 36.8 C 108 H 20 151/78 H 94 06/07/22 06:28 80 06/07/22 04:44 36.7 C 91 H 16 108/67 93 O2 Del Method 06/07/22 11:45 Room Air 06/07/22 09:10 Room Air 06/07/22 08:12 Room Air 06/07/22 06:28 06/07/22 04:44 Room Air (1) Chest pain Chest pain type: unspecified Qualified Code(s): R07.9 - Chest pain, unspecified
--- NOTE | 2022-06-07 16:08 | Discharge Summary ---
Discharge Summary Date of Service June 07, 2022 Notes For Next Care Provider -Follow-up on how she is tolerating the medication changes -Follow-up on chest pain symptoms and ensure these have not returned since discharge -Set up outpatient cardiology follow-up for atrial fibrillation Medication Changes From Visit New medications started at discharge: Apixaban 5 mg p.o. twice daily Famotidine 20 mg p.o. twice daily as needed breakthrough heartburn Metoprolol succinate 25 mg ER p.o. twice daily Nitrofurantoin monohydrate 100 mg p.o. twice daily Spironolactone 12.5 mg p.o. daily Medications discontinued: Amlodipine 5 mg p.o. daily Pentoxifylline 400 mg p.o. 3 times daily Admission HPI Per Admitting Provider Patient is 76-year-old female with PMH HTN, HLD, DM 2, GERD, asthma, morbid obesity, overactive bladder, history of DVT/PE during hospitalization, previous history nocturnal hypoxia requiring oxygen at bedtime however discontinued several weeks ago secondary to no longer requiring presented to ER with complaint of chest pain. Patient states uses wheelchair primarily and walker to help with transfers and ambulating through her house. States today got out of her wheelchair to sit in chair and when she sat in her chair she had episode of dizziness described as room spinning and tilting the lasted approximately 10 minutes. Patient reports chronic intermittent vertigo episodes and this feels similar. Also reports started with upper anterior chest pressure and chest burning. Patient states this feels like when has flares of her GERD. No prior treatment attempted. Patient called EMS and was given 3 chewable aspirin she was also given Zofran in route, patient reports history of carsickness. In ER patient given GI cocktail and reports no further chest pressure and chest burning has decreased. She denies palpitations, syncope, shortness of breath. Patient denies any known history atrial fibrillation. She does report 5 days ago had diarrhea that lasted 4 days. She took Imodium. No BM for the past 36 hours. Denies abdominal pain. Patient reports prior to onset of diarrhea she was eating broccoli salad and a store-bought rotisserie chicken. No known sick contacts or recent travel. Reports history urinary urgency and incontinence, feels like this is somewhat improved since taking trospium. Denies fever/chills, diaphoresis, N/V, melena, hematochezia, SANTANA, syncope, vision changes, neck pain, orthopnea, cough, sore throat, choking, otalgia, rhinorrhea, paresthesias, increased weakness, extremity edema, rashes, dysuria, hematuria. Admission Exam Per Admitting Provider Physical Exam: General: no distress, +obese Head: normocephalic, atraumatic Eyes: conjunctiva non-injected, anicteric ENT: normal inspection external ears, nose, mucous membranes moist Neck: supple, trachea midline Lungs: clear, no respiratory distress, no wheezing/rhonchi/rales CV: Irregularly irregular, rate 102, no murmur, trace pretibial edema Abd: + Protuberant, normal BS, soft, non-tender Ext: no cyanosis, no calf tenderness Neuro: A&O x 3, no focal deficits noted, normal affect Skin: warm, dry Principal Dx & Hospital Course #1 = Principal Diagnosis (1) Chest pain: (2) Atrial fibrillation: (3) Hypokalemia: (4) Hypertension: (5) Diabetes mellitus, type II: (6) Morbid obesity: Plan 86-year-old female presented for evaluation of chest pain. It was described as a burning pressure across her anterior chest mostly on the left side. She became lightheaded and called 911. Aspirin and Zofran were given prior to arrival to the hospital. EKG revealed atrial fibrillation with rapid ventricular response. New ST segment abnormalities were noted that were different from the earlier EKG in December 2017. She was admitted to the hospital for further work-up and treatment. Highly sensitive troponin was trended and was 5.3, 7.9, 7.1-all normal values overnight. Cardiology was consulted and noted no signs of acute pulmonary embolus or myocardial infarction on serial testing. Her heart rate had improved on low-dose beta-iker initiated in the emergency room. As she had a [id number] 2 score that was elevated anticoagulation was initiated with Eliquis. Amlodipine was discontinued given her chronic edema. Spironolactone 12.5 mg daily was given to aid in chronic hypokalemia and likely diastolic component of chronic edema. An echocardiogram was performed revealing moderate left ventricular hypertrophy, normal left vent ricular wall motion with ejection fraction of 55 to 60%. Moderate aortic valve sclerosis was present without significant aortic valvular stenosis. Significant mitral regurgitation was absent. At time of discharge she was hemodynamically stable and afebrile and oxygenating well on room air. She was free of symptoms and was tolerating current medication without difficulties. Her potassium and m agnesium were repleted. She was also found to have E. coli in her urine was treated with an antibiotic course. Discharge Exam CONSTITUTIONAL: obese, vitals as above, generally well-appearing, NAD EYES: normal conjunctivae, no scleral icterus ENT: external ear and nose normal, NAD NECK: trachea midline RESPIRATORY: clear to auscultation bilaterally, no crackles, rales or wheezes, normal respiratory effort CARDIOVASCULAR: regular rate and rhythm, S1 and 2 heard without murmurs, gallops or rubs, no JVD, no peripheral edema CHEST: inspection of chest was normal GASTROINTESTINAL: soft, nontender, ND, no guarding MUSCULOSKELETAL: strength 5/5 throughout, head is normocephalic and atraumatic SKIN: warm and dry NEUROLOGIC: CN 2-12 grossly intact, no sensory deficit, normal cognition, normal speech, no tremor PSYCHIATRIC: alert cooperative and oriented to person, place and time. Updated Medication List Medication Instructions Recorded Confirmed Type aspirin 81 mg tablet,delayed 81 mg PO PM 05/22/20 06/05/22 History release (Adult Aspirin Regimen) atorvastatin 80 mg tablet 80 mg PO PM 05/22/20 06/05/22 History azelastine 205.5 mcg (0.15 %) 1 spray intranasal BID PRN 05/22/20 06/05/22 History nasal spray Congestion hydrochlorothiazide 25 mg tablet 25 mg PO QAM 05/22/20 06/05/22 History lansoprazole 30 mg delayed 30 mg PO BID 05/22/20 06/05/22 History release,disintegrating tablet levalbuterol HCl 0.31 mg/3 mL 0.31 mg inhalation DAILY PRN 05/22/20 06/05/22 History solution for nebulization (Xopenex) Shortness Of Breath losartan 25 mg tablet 25 mg PO PM 05/22/20 06/05/22 History multivitamin (Daily Multi-Vitamin 1 tab PO PM 05/22/20 06/05/22 History tablet) nystatin 100,000 unit/gram topical 1 applic topical DAILY PRN Rash 05/22/20 06/05/22 History cream triamcinolone acetonide 55 mcg 1 spray intranasal DAILY PRN 05/22/20 06/05/22 History nasal spray aerosol (Children's Congestion Nasacort) meclizine 25 mg tablet 25 mg PO TID PRN Dizziness 06/05/22 06/05/22 History trospium 60 mg capsule,extended 60 mg PO PM 06/05/22 06/05/22 History release 24 hr apixaban 5 mg tablet (Eliquis) 5 mg PO BID #60 tabs 06/07/22 Rx famotidine 20 mg tablet 20 mg PO BID PRN breakthrough 06/07/22 Rx heart burn #60 tabs metoprolol succinate 25 mg 25 mg PO BID #60 tabs 06/07/22 Rx tablet,extended release 24 hr nitrofurantoin 100 mg PO BID #10 caps 06/07/22 Rx monohydrate/macrocrystals 100 mg capsule spironolactone 25 mg tablet 12.5 mg PO DAILY #30 tabs 06/07/22 Rx Hospital Stay Data Consultations 06/05/22 18:45 ED Decision to Admit Stat 06/06/22 08:00 Consult Cardiology Routine Diagnostic Imagining Performed 06/05/22 20:01 CT for pulmonary embolism PE [CT angio chest PE protocol] Stat Pending Results Patient Have Any Pending Studies at Discharge: No Discharge Instructions Given to Patient (Per Discharging Provider) Please take all medications as instructed on discharge list below. You are being placed on blood thinners (apixaban) to prevent stroke with new heart rhythm. You are also being given a medication to slow your heart rate down (metoprolol). Please follow-up with your primary care physician to ensure you are tolerating these medications without issue, and to check your blood work to monitor your kidney function and electrolytes after medication changes. It was a pleasure taking care of you! Please call if you have any questions or problems. You can reach a [facility] hospitalist on duty at [facility] 24 hours a day by calling [phone]. Take care of yourself. Grisel Lino DO [facility] Hospitalist Total Time Total Time Spent Total Time Spent (In Minutes): 60
[2022-06-07] MEDS ORDERED: METOPROLOL SUCC 25MG EXT REL TAB PO SCH (21:00)
== END 2022-06-07 17:40 | disposition home or self-care (01) ==
LOC: 4W 16:19 → ED 16:19 → SUATTDRO 19:39 → 4W 20:10

== ENCOUNTER 2022-12-08 19:16 | Inpatient (IN) ==
[2022-12-08] MEDS ORDERED: fentaNYL citrate PF 100 MCG/2 ML VIAL IV STA ×2 (19:36→22:07)
--- NOTE | 2022-12-08 19:45 | Emergency Department Note ---
Impression & Plan Fall, Atrial fibrillation with rapid ventricular response, Hip pain, Acute shoulder pain, Acute UTI ED Provider Note Provider: Ivan Pan MD DATE OF SERVICE: 12/08/2022 CHIEF COMPLAINT: Fall, back and hip pain HISTORY OF PRESENT ILLNESS: Patient is a 77-year-old female history of atrial fibrillation on Eliquis, type 2 diabetes, GERD, hypertension, and her knee arthritis presenting here today after a fall. Patient states she ambulates with her walker. Evidently was recently treated for UTI but states she still has urinary frequency and overactive bladder. Is on her way back from the bathroom when she lost her balance with her walker and fell onto her right side. Denies striking her head or loss of consciousness. Again is on Eliquis. Complaining of back and some right hip pain. States a little bit discomfort in the knees and right shoulder but minimal. Previously hurt the right shoulder. Denies history of hip fracture in the past. Patient feels a little bit short of breath lying flat. Did not lay on the floor that long before she is able to call for help. Did take some time given her habitus for EMS to extract her and bring her here for evaluation. Did not receive anything for pain prior to arrival. Borderline oxygen reported by EMS. PAST MEDICAL HISTORY: As noted above MEDICATIONS: Reviewed home medications but did not take evening meds yet today including her Eliquis SOCIAL HISTORY: Lives at home and ambulates with walker normally PHYSICAL EXAM: GENERAL: alert and oriented laying on stretcher appears uncomfortable Head: normocephalic and atraumatic EYES: No injection, discharge or icterus. PERRL, EOMI. NECK: Trachea midline. Supple without significant midline tenderness ENT: Mucous membranes pink and moist. LUNGS: Airway patent. No retractions. Breath sounds clear anteriorly but somewhat distant HEART: Regular rate and rhythm. No chest wall tenderness ABDOMEN: Soft and non-tender, without guarding or rebound with a large abdominal pannus in place. BACK: No bilateral flank tenderness. SKIN: Acyanotic, warm, dry, without rashes EXTREMITIES: Without swelling, tenderness or deformity with some mild chronic stasis of the lower extremities but no significant contusions or wounds noted. Able to range the right hip without severe discomfort. NEUROLOGICAL: No focal deficits. No aphasia. No facial droop or slurred speech. Normal strength and tone in the extremities. Sensation to gross touch normal. EK bpm atrial fibrillation without acute ST segment elevation with lateral T wave flattening. QTc 451. CONTINUOUS CARDIAC MONITORING: was ordered and showed a heart rate of 90s-110s bpm in atrial fibrillation GCS 15. 2 view shoulder film without evidence of acute dislocation from interpretation with a healing old fracture. Do not see an acute fracture. 2 view right femur per my review without evidence of an acute fracture dislocation of the hip or femur with arthritic changes around the knee. Patient's laboratory studies and imaging reviewed. Differential includes Fracture, dislocation, contusion, intra-abdominal, pneumothorax, intrathoracic, intracranial, neurologic, compartment syndrome, rhabdomyolysis, as well as other pathologies. IMPRESSION/MEDICAL DECISION MAKING: Patient suffered what sounds like a mechanical fall landing onto her right side complaining of some right hip and low back pain. Little bit of discomfort the right shoulder and knees but minimal in nature and good range of motion and I doubt fracture here. Did obtain x-rays of the right femur and hip as well as the right shoulder however. CT of the head, cervical spine, chest, abdomen pelvis obtained given her use of anticoagulation in the fall. While lying flat given her habitus some slight hypoxia. Given some small amount of fentanyl for pain control initially. Denies significant numbness in the lower legs. Denies significant midline cervical tenderness. Has a healing right humeral head fracture but does not appear acute or with signs of dislocation on my review as well as the right hip x-ray which did not show an acute fracture or dislocation. Patient's blood work does show stable mild anemia. Leukocytosis is noted of 13.9. She was just on a 10-day course cefdinir and before that Bactrim. Stable renal function with slight hyponatremia. No significant transaminitis. High- sensitivity troponin minimally elevated. Does have some A-fib RVR and missed her evening dose of metoprolol given IV dose here. Question more demand given the stress of today. No CK elevation doubt rhabdomyolysis. CT of the head, cervical spine, chest abdomen pelvis per the radiology reports without evidence of acute significant trauma. Still having pain and ambulatory dysfunction likely more musculoskeletal in nature. We will attempt to obtain a urinalysis to exclude acute UTI today. Believe she does require further care here at the hospital given her pain she is not able to ambulate well and again having incre ased weakness and urinary frequency. Patient agreeable and does not feel she could go home. Discussed with the hospitalist. UA positive, cefepime ordered for broader coverage DIAGNOSIS: Fall, right shoulder and hip pain, elevated troponin, A-fib RVR, acute uti DISPOSITION: Hospitalist will evaluate Patient was agreeable with this plan. Past Med/Surg History Medical History Acquired lymphedema TO STOMACH> GETS THERAPY/MASSAGE TO MANAGE > WAS COMPLICATION AFTER RADIATION TREATMENT Asthma WELL CONTROLLED> JUST TRIGGERED BY ODORS; no inh Chronic bronchitis Deep vein thrombosis FEBRUARY 2011 > CAUSED BY PROLONGED SITTING DURING A PREVIOUS HOSPITALIZATION > TREATED WITH COUMADIN Diabetes mellitus, type II GERD (gastroesophageal reflux disease) diet controlled History of anesthesia reaction woke up during D&C, colonoscopy Hyperlipidemia Hypertension IBS (irritable bowel syndrome) Lipodermatosclerosis Morbid obesity On home O2 2 lpm qHS Osteoarthritis Overactive bladder Pulmonary embolism FEBRUARY 2011 > CAUSED BY PROLONGED SITTING DURING A PREVIOUS HOSPITALIZATION > TREATED WITH COUMADIN Uterine cancer APR 2014 > RADIATION > RESOLVED Vertigo Vitreous detachment of both eyes Surgical History History of bilateral tubal ligation History of cardiac cath NO STENTS > OVER 10 YRS AGO > DONE FOR CP History of cataract surgery RT History of cholecystectomy History of colonoscopy History of dilatation and curettage History of esophagogastroduodenoscopy (EGD) History of tooth extraction Hx of hernia repair VENTRAL WITH MESH Family History Other No family history of adverse response to anesthesia Social History Smoking Status: Never smoker Second Hand Exposure: No; Hx Alcohol Use: No Hx Substance Use: No Preferred Language: Irish Communication Ability: Effective Smoking Pipe Liner Required: No Beliefs That Will Affect Care: None Current Living Situation: Alone Other Information That Helps Us Care for You: No Feels Safe at Home: Yes Safety Concerns: Feels Safe At This Time Assistive Devices: Glasses and Lift Chair Allergies Allergies Allergy/AdvReac Type Severity Reaction Status Date / Time doxycycline Allergy Intermediate SWELLING Verified 03/12/21 07:09 codeine Allergy Mild PER Verified 03/12/21 07:09 PATIENT "MADE HER MARY ANNE CRAZY" WHEN SHE TOOK ALOT Sulfa (Sulfonamide Allergy Mild Gastrointestinal Verified 03/12/21 07:09 Antibiotics) Upset tetracycline Allergy Mild SWELLING Verified 03/12/21 07:09 TO EYES NARINDER Inhibitors AdvReac Intermediate cough Verified 03/12/21 07:09 Home Meds Home Medications Medication Instructions Recorded Confirmed aspirin 81 mg tablet,delayed 81 mg PO PM 05/22/20 12/08/22 release (Adult Aspirin Regimen) atorvastatin 80 mg tablet 80 mg PO PM 05/22/20 12/08/22 azelastine 205.5 mcg (0.15 %) 1 spray intranasal BID PRN 05/22/20 12/08/22 nasal spray Congestion hydrochlorothiazide 25 mg tablet 25 mg PO QAM 05/22/20 12/08/22 lansoprazole 30 mg delayed 30 mg PO BID 05/22/20 12/08/22 release,disintegrating tablet levalbuterol HCl 0.31 mg/3 mL 0.31 mg inhalation DAILY PRN 05/22/20 12/08/22 solution for nebulization (Xopenex) Shortness Of Breath losartan 25 mg tablet 25 mg PO PM 05/22/20 12/08/22 multivitamin (Daily Multi-Vitamin 1 tab PO PM 05/22/20 12/08/22 tablet) meclizine 25 mg tablet 25 mg PO TID PRN Dizziness 06/05/22 12/08/22 trospium 60 mg capsule,extended 60 mg PO PM 06/05/22 12/08/22 release 24 hr tramadol 50 mg tablet 50 - 100 mg PO Q8 PRN Pain, Severe 12/08/22 12/08/22 Previous Rx's Medication Instructions Recorded apixaban 5 mg tablet (Eliquis) 5 mg PO BID #60 tabs 06/07/22 famotidine 20 mg tablet 20 mg PO BID PRN breakthrough 06/07/22 heart burn #60 tabs metoprolol succinate 25 mg 25 mg PO BID #60 tabs 06/07/22 tablet,extended release 24 hr spironolactone 25 mg tablet 12.5 mg PO DAILY #30 tabs 06/07/22 Results & Data (ED) Vital Signs Vital Signs - 24 hr 12/08/22 19:04 12/08/22 19:04 12/08/22 19:26 Temperature 37.5 C Temperature Source Oral Pulse Rate 118 H 110 H Pulse Rate from SpO2 Sensor Respiratory Rate 22 Respiratory Effort / Characteristics Non-Labored Spontaneous Non-Labored Spontaneous Respiratory Depth Normal Blood Pressure 127/56 L Blood Pressure Mean 79 Pulse Oximetry 93 Oxygen Delivery Method Nasal Cannula Oxygen Flow Rate 2 Sepsis Recent Fever Within 48 Hours No Sepsis New/Unexplained Change in Mental Status No Sepsis Action Taken by Nursing No Action Required 12/08/22 19:34 12/08/22 21:13 12/08/22 19:27 Temperature Temperature Source Pulse Rate 105 H 114 H 115 H Pulse Rate from SpO2 Sensor 117 H Respiratory Rate 18 20 Respiratory Effort / Characteristics Respiratory Depth Blood Pressure 117/56 L 127/56 L Blood Pressure Mean 79 Pulse Oximetry 92 93 Oxygen Delivery Method Nasal Cannula Oxygen Flow Rate 2 Sepsis Recent Fever Within 48 Hours Sepsis New/Unexplained Change in Mental Status Sepsis Action Taken by Nursing 12/08/22 19:30 12/08/22 19:40 12/08/22 19:50 Temperature Temperature Source Pulse Rate 110 H 106 H 102 H Pulse Rate from SpO2 Sensor 111 H 110 H 110 H Respiratory Rate 18 24 19 Respiratory Effort / Characteristics Respiratory Depth Blood Pressure Blood Pressure Mean Pulse Oximetry 94 92 93 Oxygen Delivery Method Oxygen Flow Rate Sepsis Recent Fever Within 48 Hours Sepsis New/Unexplained Change in Mental Status Sepsis Action Taken by Nursing 12/08/22 20:18 12/08/22 20:20 12/08/22 20:30 Temperature Temperature Source Pulse Rate 115 H 102 H Pulse Rate from SpO2 Sensor 126 H 116 H 109 H Respiratory Rate 20 Respiratory Effort / Characteristics Respiratory Depth Blood Pressure Blood Pressure Mean Pulse Oximetry 92 95 94 Oxygen Delivery Method Oxygen Flow Rate Sepsis Recent Fever Within 48 Hours Sepsis New/Unexplained Change in Mental Status Sepsis Action Taken by Nursing 12/08/22 21:06 12/08/22 21:10 12/08/22 21:20 Temperature Temperature Source Pulse Rate 107 H 108 H 109 H Pulse Rate from SpO2 Sensor 109 H 109 H 104 H Respiratory Rate 20 24 Respiratory Effort / Characteristics Respiratory Depth Blood Pressure 117/56 L Blood Pressure Mean 76 Pulse Oximetry 96 95 96 Oxygen Delivery Method Oxygen Flow Rate Sepsis Recent Fever Within 48 Hours Sepsis New/Unexplained Change in Mental Status Sepsis Action Taken by Nursing 12/08/22 21:30 12/08/22 21:40 12/08/22 21:50 Temperature Temperature Source Pulse Rate 101 H 104 H 92 H Pulse Rate from SpO2 Sensor 98 H 103 H 99 H Respiratory Rate 20 19 19 Respiratory Effort / Characteristics Respiratory Depth Blood Pressure Blood Pressure Mean Pulse Oximetry 95 95 95 Oxygen Delivery Method Oxygen Flow Rate Sepsis Recent Fever Within 48 Hours Sepsis New/Unexplained Change in Mental Status Sepsis Action Taken by Nursing 12/08/22 22:00 12/08/22 22:10 12/08/22 22:20 Temperature Temperature Source Pulse Rate 104 H 92 H 93 H Pulse Rate from SpO2 Sensor 102 H 95 H 91 H Respiratory Rate 28 H 18 23 Respiratory Effort / Characteristics Respiratory Depth Blood Pressure Blood Pressure Mean Pulse Oximetry 97 95 96 Oxygen Delivery Method Oxygen Flow Rate Sepsis Recent Fever Within 48 Hours Sepsis New/Unexplained Change in Mental Status Sepsis Action Taken by Nursing 12/08/22 22:21 12/08/22 23:38 Temperature Temperature Source Pulse Rate 91 H 95 H Pulse Rate from SpO2 Sensor 94 H Respiratory Rate 22 Respiratory Effort / Characteristics Respiratory Depth Blood Pressure 104/69 Blood Pressure Mean 80 Pulse Oximetry 97 Oxygen Delivery Method Oxygen Flow Rate Sepsis Recent Fever Within 48 Hours Sepsis New/Unexplained Change in Mental Status Sepsis Action Taken by Nursing Laboratory Data 12/08/22 19:44 12/08/22 19:44 Lab Results 12/08/22 12/08/22 12/08/22 Range/Units 19:44 19:44 19:44 WBC 13.94 H (4.8-10.8) K/ul RBC 4.26 (4.20-5.40) M/uL Hgb 11.2 L (12.0-16.0) g/dl POC Hgb (12.0-16.0) g/dl Hct 35.6 L (37.0-47.0) % POC Hct (37-47) % MCV 83.6 (80.0-100.0) fL MCH 26.3 (25.0-34.0) pg MCHC 31.5 L (32.0-36.0) g/dL RDW Std Deviation 48.1 H (36.4-46.3) fL RDW Coeff of Rodolfo 15.9 H (11.5-14.5) % Plt Count 209 (130-400) K/uL MPV 10.3 (9.4-12.4) fL Immature Gran % (Auto) 0.6 % Neut % (Auto) 87.0 % Lymph % (Auto) 5.2 % Knott % (Auto) 7.0 % Eos % (Auto) 0.0 % Baso % (Auto) 0.2 % Neut # (Auto) 12.12 H (1.40-6.50) K/uL Lymph # (Auto) 0.72 L (1.2-3.4) K/uL Knott # (Auto) 0.98 H (0.11-0.59) K/uL Eos # (Auto) 0.00 (0-0.50) K/uL Baso # (Auto) 0.03 (0-0.2) K/uL Immature Gran # (Auto) 0.09 (0.01-0.20) K/uL PT 12.1 H (9.0-12.0) Seconds INR 1.1 (0.9-1.1) POC Sodium (135-144) mmol/L Sodium 134 L (136-145) mmol/L POC Potassium (3.3-5.0) mmol/L Potassium 3.4 L (3.5-5.1) mmol/L POC Chloride (101-112) mmol/L Chloride 96 L (98-107) mmol/L Carbon Dioxide 29 (21-32) mmol/L POC Total CO2 (24-31) mmol/L Anion Gap 9 (3-11) POC Anion Gap (16-25) mmol/L POC BUN (7-18) mg/dl BUN 15 (6-23) mg/dl Creatinine 0.67 (0.6-1.2) mg/dl POC Creatinine (0.6-1.3) mg/dl Est Cr Clr Drug Dosing Not Reportable Est GFR ( Amer) 99.0 ml/min Est GFR (Non-Af Amer) 85.4 ml/min BUN/Creatinine Ratio 22.4 H (10-20) Glucose 141 H (70-99(Fasting)) mg/dl POC Glucose (other) (70-99) mg/dl Lactate (0.4-2.0) mmol/L Calcium 8.8 (8.6-10.3) mg/dl POC Ioniz Calcium Stevenson (1.12-1.32) mmol/l Total Bilirubin 1.4 H (0.2-1.0) mg/dl AST 14 (13-39) U/L ALT 13 (7-52) U/L Alkaline Phosphatase 114 H (34-104) U/L Total Creatine Kinase 114 (26-192) U/L Troponin I High Sens 40.6 H (0-14) pg/ml Total Protein 6.4 (6.0-8.3) gm/dl Albumin 3.5 (3.4-5.0) gm/dl Globulin 2.9 (2.5-4.0) gm/dl Albumin/Globulin Ratio 1.2 (0.9-2) Urine Color Urine Appearance (Clear) Urine pH (4.5-7.5) Ur Specific [place] (1.000-1.030) Urine Protein (Negative) Urine Glucose (UA) (Negative) Urine Ketones (Negative) Urine Blood (Negative) Urine Nitrite (Negative) Urine Bilirubin (Negative) Urine Urobilinogen (Negative) Ur Leukocyte Esterase (Negative) Urine WBC (Auto) (0-5) /hpf Urine RBC (Auto) (0-4) /hpf U Hyaline Cast (Auto) (0-5) /lpf U Epithel Cells (Auto) (0-5) /lpf Urine Bacteria (Auto) (Negative) 12/08/22 12/08/22 12/08/22 Range/Units 19:50 22:23 23:02 WBC (4.8-10.8) K/ul RBC (4.20-5.40) M/uL Hgb (12.0-16.0) g/dl POC Hgb 12.2 (12.0-16.0) g/dl Hct (37.0-47.0) % POC Hct 36 L (37-47) % MCV (80.0-100.0) fL MCH (25.0-34.0) pg MCHC (32.0-36.0) g/dL RDW Std Deviation (36.4-46.3) fL RDW Coeff of Rodolfo (11.5-14.5) % Plt Count (130-400) K/uL MPV (9.4-12.4) fL Immature Gran % (Auto) % Neut % (Auto) % Lymph % (Auto) % Knott % (Auto) % Eos % (Auto) % Baso % (Auto) % Neut # (Auto) (1.40-6.50) K/uL Lymph # (Auto) (1.2-3.4) K/uL Knott # (Auto) (0.11-0.59) K/uL Eos # (Auto) (0-0.50) K/uL Baso # (Auto) (0-0.2) K/uL Immature Gran # (Auto) (0.01-0.20) K/uL PT (9.0-12.0) Seconds INR (0.9-1.1) POC Sodium 134 L (135-144) mmol/L Sodium (136-145) mmol/L POC Potassium 3.4 (3.3-5.0) mmol/L Potassium (3.5-5.1) mmol/L POC Chloride 93 L (101-112) mmol/L Chloride (98-107) mmol/L Carbon Dioxide (21-32) mmol/L POC Total CO2 30 (24-31) mmol/L Anion Gap (3-11) POC Anion Gap 15.0 L (16-25) mmol/L POC BUN 14 (7-18) mg/dl BUN (6-23) mg/dl Creatinine (0.6-1.2) mg/dl POC Creatinine 0.7 (0.6-1.3) mg/dl Est Cr Clr Drug Dosing Est GFR ( Amer) ml/min Est GFR (Non-Af Amer) ml/min BUN/Creatinine Ratio (10-20) Glucose (70-99(Fasting)) mg/dl POC Glucose (other) 145 H (70-99) mg/dl Lactate 2.0 (0.4-2.0) mmol/L Calcium (8.6-10.3) mg/dl POC Ioniz Calcium Stevenson 1.12 (1.12-1.32) mmol/l Total Bilirubin (0.2-1.0) mg/dl AST (13-39) U/L ALT (7-52) U/L Alkaline Phosphatase (34-104) U/L Total Creatine Kinase (26-192) U/L Troponin I High Sens (0-14) pg/ml Total Protein (6.0-8.3) gm/dl Albumin (3.4-5.0) gm/dl Globulin (2.5-4.0) gm/dl Albumin/Globulin Ratio (0.9-2) Urine Color Yellow Urine Appearance Cloudy A (Clear) Urine pH 6.0 (4.5-7.5) Ur Specific [place] 1.035 H (1.000-1.030) Urine Protein 1+ H (Negative) Urine Glucose (UA) Negative (Negative) Urine Ketones Negative (Negative) Urine Blood 2+ H (Negative) Urine Nitrite Positive A (Negative) Urine Bilirubin Negative (Negative) Urine Urobilinogen Negative (Negative) Ur Leukocyte Esterase 2+ H (Negative) Urine WBC (Auto) >30 H (0-5) /hpf Urine RBC (Auto) 10-30 H (0-4) /hpf U Hyaline Cast (Auto) 0 (0-5) /lpf U Epithel Cells (Auto) 5-10 H (0-5) /lpf Urine Bacteria (Auto) 4+ H (Negative) Administered Medications Lactated Ringer's (Lr) 1,000 mls @ 200 mls/hr IV .Q5H ONE Stop: 12/09/22 03:49 Last Admin: 12/08/22 23:41 Dose: 200 mls/hr Documented By: CARLOS Discontinued Medications Fentanyl Citrate (Fentanyl Citrate Pf 100 Mcg/2 Ml Vial) 25 mcg IV NOW STA Stop: 12/08/22 19:37 Last Admin: 12/08/22 20:32 Dose: 25 mcg Documented By: LISANDRA Fentanyl Citrate (Fentanyl Citrate Pf 100 Mcg/2 Ml Vial) 25 mcg IV NOW STA Stop: 12/08/22 22:08 Last Admin: 12/08/22 22:19 Dose: 25 mcg Documented By: CARLOS Ioversol (Optiray 350 100ml) 84 ml IV ONCE ONE Stop: 12/08/22 20:59 Last Admin: 12/08/22 20:58 Dose: 84 ml Documented By: ROBBY Metoprolol Tartrate (Metoprolol Tartrate 1 Mg/Ml Vial) 5 mg IV NOW STA Stop: 12/08/22 20:33 Last Admin: 12/08/22 21:13 Dose: 5 mg Documented By: CARLOS Ondansetron HCl (Ondansetron Inj 2 Mg/Ml 2 Ml Vial) 4 mg IV NOW STA Stop: 12/08/22 20:32 Last Admin: 12/08/22 21:13 Dose: 4 mg Documented By: CARLOS Potassium Chloride (Potassium Chloride Pwd 20 Meq Pack) 40 meq PO NOW STA Stop: 12/08/22 22:50 Last Admin: 12/08/22 23:41 Dose: 40 meq Documented By: [facility] Imaging Data Radiologist's Impression: Femur X-Ray 12/08/22 19:34 RIGHT FEMUR 3 VIEWS CLINICAL HISTORY: Fall. Right hip pain. FINDINGS: AP, frog-leg, and lateral views of the right femur are obtained. No prior studies are available for comparison at the time of dictation. The skeletal structures are osteopenic. There is no radiographic evidence of right femoral fracture. The visualized right hemipelvis appears intact. Degenerative change is noted in the right hip and knee joints. Sclerotic change is noted in the right sacroiliac joint. The overlying soft tissues are within normal limits. There is atherosclerotic calcification of the femoral artery. Tiny surgical clips project over the pelvis. IMPRESSION: There is no radiographic evidence of right femoral fracture. Electronically signed by: Veto De La Cruz M.D. 12/08/2022 9:50 PM Abdomen/Pelvis CT 12/08/22 19:35 Exam(s): CT ABDOMEN + PELVIS With Contrast EXAM: CT Abdomen and Pelvis With Intravenous Contrast CLINICAL HISTORY: fall, back /hip pain. TECHNIQUE: Axial computed tomography images of the abdomen and pelvis with intravenous contrast. Automated exposure control was utilized for the study. A dose lowering technique was utilized adhering to the principles of ALARA. COMPARISON: CT abdomen and pelvis without contrast dated 12/19/2017 FINDINGS: Lung bases: Unremarkable. No mass. No consolidation. ABDOMEN: Liver: The liver appears intact without evidence for acute traumatic injury. Gallbladder and bile ducts: The gallbladder is not identified and is presumed surgically absent. No ductal dilation. Pancreas: Unremarkable. No mass. No ductal dilation. Spleen: The spleen is intact without evidence for traumatic injury. Adrenals: Unremarkable. No significant alteration in appearance of the right adrenal nodule measuring 16 mm the left adrenal gland is unremarkable. Kidneys and ureters: The kidneys demonstrate normal enhancement without evidence for traumatic injury. There is mild hydronephrosis and proximal left hydroureter with multiple calcifications noted in the left collecting system, measuring up to 2.1 cm in the renal pelvis. Incidental cortical cyst involving the lateral aspect of the left kidney measuring 2.3 cm. Stomach and bowel: Unremarkable. No traumatic bowel injury. No bowel obstruction. PELVIS: Appendix: No findings to suggest acute appendicitis. Bladder: Unremarkable. No mass. Reproductive: Unremarkable as visualized. ABDOMEN and PELVIS: Intraperitoneal space: Unremarkable. No free air. No significant fluid collection. Retroperitoneal space: Unremarkable. No retroperitoneal hematoma. Bones/joints: Similar degenerative changes of the included thoracolumbar spine. No compression fracture. The pelvic bones and proximal femurs are intact. No dislocation. Soft tissues: No significant overlying acute traumatic soft tissue abnormality. Dependent edema in the anterior pannus incidentally noted. Suspected repair of the previously noted umbilical hernia. Vasculature: Atherosclerotic calcification of the normal caliber aorta, stable. No acute periaortic abnormality identified. No abdominal aortic aneurysm. Lymph nodes: Unremarkable. No enlarged lymph nodes. IMPRESSION: 1. Similar degenerative changes of the included thoracolumbar spine. No compression fracture. The pelvic bones and proximal femurs are intact. 2. No significant acute traumatic injury to the abdomen or pelvis. Incidental findings, as noted above. Electronically signed by: Gerald Muñiz MD 12/08/22 21:[address] 12/08/22 19:35 Exam(s): CT C SPINE EXAM: CT Cervical Spine Without Intravenous Contrast CLINICAL HISTORY: Fall TECHNIQUE: Axial computed tomography images of the cervical spine without intravenous contrast. Automated exposure control was utilized for the study. A dose lowering technique was utilized adhering to the principles of ALARA. COMPARISON: No relevant prior studies available. FINDINGS: Vertebrae: The vertebral bodies are intact without acute fracture. No anterolisthesis or retrolisthesis noted. There is straightening of the normal cervical lordosis. The pedicles, facet joints and transverse processes are intact. There is heterotopic calcification along the posterior margin of the C7 spinous process. The spinous processes are otherwise intact. Discs/spinal canal/neural foramina: Disc space narrowing with marginal hypertrophic changes noted at several levels throughout the cervical spine. No significant osseous central canal stenosis. Soft tissues: Unremarkable. Thyroid: There is asymmetric enlargement of the right thyroid with internal calcifications a probable solid nodule, estimated at 3 cm. IMPRESSION: 1. No acute osseous traumatic injury or significant abnormal alignment involving the cervical spine. 2. Heterotopic calcification along the posterior margin of the C7 spinous processes presumed either prior traumatic injury or minimal calcification of the nuchal ligament. Please correlate with clinical findings however. 3. Asymmetric enlargement of the right thyroid lobe with suspected solid nodule and internal calcifications. Recommend nonemergent thyroid ultrasound, if not previously evaluated. Electronically signed by: Gerald Muñiz MD 12/08/22 21:[address] 12/08/22 19:35 Exam(s): CT CHEST With Contrast IV Amt: 84 ml optiray 350 EXAM: CT Chest With Intravenous Contrast CLINICAL HISTORY: fall, back /hip pain. TECHNIQUE: Axial computed tomography images of the chest with intravenous contrast. Automated exposure control was utilized for the study. A dose lowering technique was utilized adhering to the principles of ALARA. CONTRAST: Patient received 84 ml optiray 350 of IV contrast COMPARISON: CTA chest dated 06/05/2022 FINDINGS: Lungs: Similar subsegmental changes in both lungs are similar in appearance to the previous examination. No significant pulmonary contusive injury. Pleural space: Unremarkable. No pneumothorax. No significant effusion. Heart: The cardiac chambers are stable and remain mildly enlarged. Similar coronary artery calcification. No significant pericardial effusion. Mediastinum: Small hiatal hernia. No mediastinal traumatic injury. Thyroid: Asymmetric enlargement of the right thyroid gland with internal calcifications. Bones/joints: The thoracic vertebral bodies are stable in appearance when compared to the previous examination with similar mild loss of height noted at T3 and T4 levels. Similar remote right lateral rib fractures. Similar degenerative changes of the shoulder with probable remote traumatic injury of the proximal right humerus. No acute osseous abnormality. No dislocation. Soft tissues: Unremarkable. No significant overlying acute traumatic soft tissue abnormality. Vasculature: Atherosclerotic calcification of the aorta. No evidence for acute traumatic injury or alteration. Lymph nodes: Unremarkable. No enlarged lymph nodes. IMPRESSION: No significant acute traumatic injury identified involving the chest/thorax. No significant alteration from the previous examination. Electronically signed by: Gerald Muñiz MD 12/08/22 22:[address] 12/08/22 19:35 Exam(s): CT HEAD Without Contrast EXAM: CT Head Without Intravenous Contrast CLINICAL HISTORY: Fall. TECHNIQUE: Axial computed tomography images of the head/brain without intravenous contrast. Automated exposure control was utilized for the study. A dose lowering technique was utilized adhering to the principles of ALARA. COMPARISON: No relevant prior studies available. FINDINGS: Limitations: There is motion artifact through the mid to inferior calvarium, which degrades image quality on multiple image slices. Brain: No definite intracranial hemorrhage; evaluation for subtle extra-axial pathology along the margins of the parenchyma is limited in regions of streak motion artifact. No significant mass effect. Mild periventricular deep white matter hypodense changes noted. Ventricles: Unremarkable. No midline shift or ventriculomegaly. Bones/joints: No definite skull fracture. Soft tissues: Unremarkable. Vasculature: Atherosclerotic calcification of the cavernous and supraclinoid internal carotid arteries. Sinuses: Unremarkable as visualized. No acute sinusitis. Mastoid air cells: Unremarkable as visualized. No mastoid effusion. IMPRESSION: No definite acute intracranial process identified, accounting for limitations with motion artifact. Electronically signed by: Gerald Muñiz MD 12/08/22 21:15 PM Shoulder X-Ray 12/08/22 19:40 RIGHT SHOULDER 3 VIEWS CLINICAL HISTORY: Fall. Right shoulder injury. FINDINGS: 3 views of the right shoulder are compared to study dated 11/10/2015. The skeletal structures are osteopenic. There is no radiographic evidence of acute fracture or dislocation. There is chronic posttraumatic deformity of the right proximal humerus. 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 Productive degenerative changes noted at the acromioclavicular joint. The overlying soft tissues are within normal limits. Chronic parenchymal changes are noted in the right lung. Chronic right-sided rib fractures are noted. IMPRESSION: 1. No acute bony abnormality is identified. 2. Chronic posttraumatic and degenerative changes as above. Electronically signed by: Veto De La Cruz M.D. 12/08/2022 9:19 PM Discharge Plan Visit Data Chief Complaint: Hip Pain Stated Complaint: Fall ED Provider: Ivan Pan Discharge Problem: Fall, Atrial fibrillation with rapid ventricular response, Hip pain, Acute shoulder pain, Acute UTI Patient Disposition: Being Evaluated by Hospitalist Forms Stand Alone Forms: My [facility] [employer] Prescriptions Prescriptions: No Action atorvastatin 80 mg tablet 80 mg PO PM azelastine 0.15 % (205.5 mcg) spray,non-aerosol 1 spray intranasal BID PRN (Reason: Congestion) Rx Instructions: administer into each nostril hydrochlorothiazide 25 mg tablet 25 mg PO QAM lansoprazole 30 mg tablet,disintegrat, delay rel 30 mg PO BID losartan 25 mg tablet 25 mg PO PM levalbuterol HCl [Xopenex] 0.31 mg/3 mL solution for nebulization 0.31 mg inhalation DAILY PRN (Reason: Shortness Of Breath) aspirin [Adult Aspirin Regimen] 81 mg tablet,delayed release (DR/EC) 81 mg PO PM multivitamin [Daily Multi-Vitamin] Tablet 1 tab PO PM meclizine 25 mg tablet 25 mg PO TID PRN (Reason: Dizziness) trospium 60 mg capsule,extended release 24hr 60 mg PO PM Eliquis 5 mg Tablet 5 mg PO BID Qty: 60 0RF metoprolol succinate 25 mg Tablet Extended Release 24 Hr 25 mg PO BID Qty: 60 0RF spironolactone 25 mg Tablet 12.5 mg PO DAILY Qty: 30 0RF famotidine 20 mg Tablet 20 mg PO BID PRN (Reason: breakthrough heart burn) Qty: 60 0RF tramadol 50 mg tablet 50 - 100 mg PO Q8 PRN (Reason: Pain, Severe) Referrals Referrals: Pavan Mckeon MD [Primary Care Provider] -
[2022-12-08 20:05] LABS: iSTAT Creatinine 0.7 mg/dl (0.6-1.3); iSTAT Hemoglobin 12.2 g/dl (12.0-16.0); iSTAT Ionized Calcium 1.12 mmol/l (1.12-1.32); iSTAT Potassium 3.4 mmol/L (3.3-5.0)
[2022-12-08] MEDS ORDERED: ONDANSETRON INJ 2 MG/ML 2 ML VIAL IV STA (20:31)
[2022-12-08 20:32] LABS: Basophils # (auto) 0.03 K/uL (0-0.2); Basophils % (auto) 0.2 %; Hematocrit (blood only) 35.6 % (37.0-47.0); Hemoglobin 11.2 g/dl (12.0-16.0); Immature Granulocytes # (auto) 0.09 K/uL (0.01-0.20); Immature Granulocytes % (auto) 0.6 %; Lymphocytes # (auto) 0.72 K/uL (1.2-3.4); Lymphocytes % (auto) 5.2 %; Mean Corpuscular Hemoglobin 26.3 pg (25.0-34.0); Mean Corpuscular Hgb Conc 31.5 g/dL (32.0-36.0); Mean Corpuscular Volume 83.6 fL (80.0-100.0); Mean Platelet Volume 10.3 fL (9.4-12.4); Monocytes # (auto) 0.98 K/uL (0.11-0.59); Neutrophils # (auto) 12.12 K/uL (1.40-6.50); Platelet Count 209 K/uL (130-400); RDW Coefficient of Variation 15.9 % (11.5-14.5); RDW Standard Deviation 48.1 fL (36.4-46.3); Red Blood Count 4.26 M/uL (4.20-5.40); White Blood Count 13.94 K/ul (4.8-10.8)
[2022-12-08] MEDS ORDERED: METOPROLOL TARTRATE 1 MG/ML VIAL IV STA (20:32)
[2022-12-08 20:52] LABS: Alanine Aminotransferase 13 U/L (7-52); Albumin Globulin Ratio 1.2 (0.9-2); Albumin Level 3.5 gm/dl (3.4-5.0); Alkaline Phosphatase 114 U/L (34-104); Anion Gap 9 (3-11); Aspartate Aminotransferase 14 U/L (13-39); BUN Creatinine Ratio 22.4 (10-20); Bilirubin,Total 1.4 mg/dl (0.2-1.0); Blood Urea Nitrogen 15 mg/dl (6-23); Calcium 8.8 mg/dl (8.6-10.3); Carbon Dioxide 29 mmol/L (21-32); Chloride 96 mmol/L (98-107); Creatine Kinase 114 U/L (26-192); Est GFR (Non-African American) 85.4 ml/min; Globulin 2.9 gm/dl (2.5-4.0); Glucose 141 mg/dl (70-99(Fasting)); Potassium 3.4 mmol/L (3.5-5.1); Sodium 134 mmol/L (136-145); Total Protein 6.4 gm/dl (6.0-8.3)
[2022-12-08 20:57] LABS: INR 1.1 (0.9-1.1); Prothrombin Time 12.1 Seconds (9.0-12.0)
[2022-12-08] MEDS ORDERED: OPTIRAY 350 100ml IV ONE (20:58)
[2022-12-08 20:59] LABS: Troponin I High Sensitivity 40.6 pg/ml (0-14)
--- NOTE | 2022-12-08 21:16 | CT Scan Report ---
Exam(s): CT HEAD Without Contrast EXAM: CT Head Without Intravenous Contrast CLINICAL HISTORY: Fall. TECHNIQUE: Axial computed tomography images of the head/brain without intravenous contrast. Automated exposure control was utilized for the study. A dose lowering technique was utilized adhering to the principles of ALARA. COMPARISON: No relevant prior studies available. FINDINGS: Limitations: There is motion artifact through the mid to inferior calvarium, which degrades image quality on multiple image slices. Brain: No definite intracranial hemorrhage; evaluation for subtle extra-axial pathology along the margins of the parenchyma is limited in regions of streak motion artifact. No significant mass effect. Mild periventricular deep white matter hypodense changes noted. Ventricles: Unremarkable. No midline shift or ventriculomegaly. Bones/joints: No definite skull fracture. Soft tissues: Unremarkable. Vasculature: Atherosclerotic calcification of the cavernous and supraclinoid internal carotid arteries. Sinuses: Unremarkable as visualized. No acute sinusitis. Mastoid air cells: Unremarkable as visualized. No mastoid effusion. IMPRESSION: No definite acute intracranial process identified, accounting for limitations with motion artifact. Electronically signed by: Gerald Muñiz MD 12/08/22 21:15 PM
--- NOTE | 2022-12-08 21:20 | CT Scan Report ---
Exam(s): CT C SPINE EXAM: CT Cervical Spine Without Intravenous Contrast CLINICAL HISTORY: Fall TECHNIQUE: Axial computed tomography images of the cervical spine without intravenous contrast. Automated exposure control was utilized for the study. A dose lowering technique was utilized adhering to the principles of ALARA. COMPARISON: No relevant prior studies available. FINDINGS: Vertebrae: The vertebral bodies are intact without acute fracture. No anterolisthesis or retrolisthesis noted. There is straightening of the normal cervical lordosis. The pedicles, facet joints and transverse processes are intact. There is heterotopic calcification along the posterior margin of the C7 spinous process. The spinous processes are otherwise intact. Discs/spinal canal/neural foramina: Disc space narrowing with marginal hypertrophic changes noted at several levels throughout the cervical spine. No significant osseous central canal stenosis. Soft tissues: Unremarkable. Thyroid: There is asymmetric enlargement of the right thyroid with internal calcifications a probable solid nodule, estimated at 3 cm. IMPRESSION: 1. No acute osseous traumatic injury or significant abnormal alignment involving the cervical spine. 2. Heterotopic calcification along the posterior margin of the C7 spinous processes presumed either prior traumatic injury or minimal calcification of the nuchal ligament. Please correlate with clinical findings however. 3. Asymmetric enlargement of the right thyroid lobe with suspected solid nodule and internal calcifications. Recommend nonemergent thyroid ultrasound, if not previously evaluated. Electronically signed by: Gerald Muñiz MD 12/08/22 21:19 PM
--- NOTE | 2022-12-08 21:22 | XRay Report ---
RIGHT SHOULDER 3 VIEWS CLINICAL HISTORY: Fall. Right shoulder injury. FINDINGS: 3 views of the right shoulder are compared to study dated 11/10/2015. The skeletal structure s are osteopenic. There is no radiographic evidence of acute fracture or dislocation. There is chroni c posttraumatic deformity of the right proximal humerus. 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 Productive degenerative changes noted at the acromioclavicular joint. The overlying soft tissues are within normal limits. Chronic parenchymal changes are noted in the right lung. Chronic right-sided rib fractures are noted. IMPRESSION: 1. No acute bony abnormality is identified. 2. Chronic posttraumatic and degenerative changes as above. Electronically signed by: Veto De La Cruz M.D. 12/08/2022 9:19 PM
--- NOTE | 2022-12-08 21:28 | CT Scan Report ---
Exam(s): CT ABDOMEN + PELVIS With Contrast EXAM: CT Abdomen and Pelvis With Intravenous Contrast CLINICAL HISTORY: fall, back /hip pain. TECHNIQUE: Axial computed tomography images of the abdomen and pelvis with intravenous contrast. Automated exposure control was utilized for the study. A dose lowering technique was utilized adhering to the principles of ALARA. COMPARISON: CT abdomen and pelvis without contrast dated 12/19/2017 FINDINGS: Lung bases: Unremarkable. No mass. No consolidation. ABDOMEN: Liver: The liver appears intact without evidence for acute traumatic injury. Gallbladder and bile ducts: The gallbladder is not identified and is presumed surgically absent. No ductal dilation. Pancreas: Unremarkable. No mass. No ductal dilation. Spleen: The spleen is intact without evidence for traumatic injury. Adrenals: Unremarkable. No significant alteration in appearance of the right adrenal nodule measuring 16 mm the left adrenal gland is unremarkable. Kidneys and ureters: The kidneys demonstrate normal enhancement without evidence for traumatic injury. There is mild hydronephrosis and proximal left hydroureter with multiple calcifications noted in the left collecting system, measuring up to 2.1 cm in the renal pelvis. Incidental cortical cyst involving the lateral aspect of the left kidney measuring 2.3 cm. Stomach and bowel: Unremarkable. No traumatic bowel injury. No bowel obstruction. PELVIS: Appendix: No findings to suggest acute appendicitis. Bladder: Unremarkable. No mass. Reproductive: Unremarkable as visualized. ABDOMEN and PELVIS: Intraperitoneal space: Unremarkable. No free air. No significant fluid collection. Retroperitoneal space: Unremarkable. No retroperitoneal hematoma. Bones/joints: Similar degenerative changes of the included thoracolumbar spine. No compression fracture. The pelvic bones and proximal femurs are intact. No dislocation. Soft tissues: No significant overlying acute traumatic soft tissue abnormality. Dependent edema in the anterior pannus incidentally noted. Suspected repair of the previously noted umbilical hernia. Vasculature: Atherosclerotic calcification of the normal caliber aorta, stable. No acute periaortic abnormality identified. No abdominal aortic aneurysm. Lymph nodes: Unremarkable. No enlarged lymph nodes. IMPRESSION: 1. Similar degenerative changes of the included thoracolumbar spine. No compression fracture. The pelvic bones and proximal femurs are intact. 2. No significant acute traumatic injury to the abdomen or pelvis. Incidental findings, as noted above. Electronically signed by: Gerald Muñiz MD 12/08/22 21:27 PM
--- NOTE | 2022-12-08 21:51 | XRay Report ---
RIGHT FEMUR 3 VIEWS CLINICAL HISTORY: Fall. Right hip pain. FINDINGS: AP, frog-leg, and lateral views of the right femur are obtained. No prior studies are avail able for comparison at the time of dictation. The skeletal structures are osteopenic. There is no rad iographic evidence of right femoral fracture. The visualized right hemipelvis appears intact. Degener ative change is noted in the right hip and knee joints. Sclerotic change is noted in the right sacroi liac joint. The overlying soft tissues are within normal limits. There is atherosclerotic calcificati on of the femoral artery. Tiny surgical clips project over the pelvis. IMPRESSION: There is no radiographic evidence of right femoral fracture. Electronically signed by: Veto De La Cruz M.D. 12/08/2022 9:50 PM
--- NOTE | 2022-12-08 22:31 | CT Scan Report ---
Exam(s): CT CHEST With Contrast IV Amt: 84 ml optiray 350 EXAM: CT Chest With Intravenous Contrast CLINICAL HISTORY: fall, back /hip pain. TECHNIQUE: Axial computed tomography images of the chest with intravenous contrast. Automated exposure control was utilized for the study. A dose lowering technique was utilized adhering to the principles of ALARA. CONTRAST: Patient received 84 ml optiray 350 of IV contrast COMPARISON: CTA chest dated 06/05/2022 FINDINGS: Lungs: Similar subsegmental changes in both lungs are similar in appearance to the previous examination. No significant pulmonary contusive injury. Pleural space: Unremarkable. No pneumothorax. No significant effusion. Heart: The cardiac chambers are stable and remain mildly enlarged. Similar coronary artery calcification. No significant pericardial effusion. Mediastinum: Small hiatal hernia. No mediastinal traumatic injury. Thyroid: Asymmetric enlargement of the right thyroid gland with internal calcifications. Bones/joints: The thoracic vertebral bodies are stable in appearance when compared to the previous examination with similar mild loss of height noted at T3 and T4 levels. Similar remote right lateral rib fractures. Similar degenerative changes of the shoulder with probable remote traumatic injury of the proximal right humerus. No acute osseous abnormality. No dislocation. Soft tissues: Unremarkable. No significant overlying acute traumatic soft tissue abnormality. Vasculature: Atherosclerotic calcification of the aorta. No evidence for acute traumatic injury or alteration. Lymph nodes: Unremarkable. No enlarged lymph nodes. IMPRESSION: No significant acute traumatic injury identified involving the chest/thorax. No significant alteration from the previous examination. Electronically signed by: Gerald Muñiz MD 12/08/22 22:30 PM
[2022-12-08] MEDS ORDERED: POTASSIUM CHLORIDE PWD 20 MEQ PACK PO STA (22:49)
[2022-12-08] MEDS ORDERED: LACTATED RINGER'S 1,000 ML IV ONE (22:50)
[2022-12-08 22:59] LABS: Appearance Urine Cloudy (Clear); Bacteria Urine Automated 4+ (Negative); Bilirubin Urine Negative (Negative); Blood Urine 2+ (Negative); Cast Urine Automated 0 /lpf (0-5); Color Urine Yellow; Glucose Urine UA Negative (Negative); Ketones Urine Negative (Negative); Leukocyte Esterase Urine 2+ (Negative); Nitrite Urine Positive (Negative); Protein Urine 1+ (Negative); Specific Gravity Urine 1.035 (1.000-1.030); Urobilinogen Urine Negative (Negative); WBC Urine Automated >30 /hpf (0-5)
[2022-12-08] MEDS ORDERED: CEFEPIME 2,000 MG/20 ML VIAL IV STA (23:46)
[2022-12-08 23:47] LABS: Magnesium 2.1 mg/dl (1.7-2.4)
[2022-12-09 00:06] LABS: Troponin I High Sensitivity 123.1 pg/ml (0-14)
--- NOTE | 2022-12-09 00:20 | History & Physical Report ---
Date of Service December 09, 2022 Assessment & Plan (1) Atrial fibrillation with rapid ventricular response: Plan: Secondary to sepsis secondary to complicated UTI hx recurrent UTIs Patient on Eliquis. Troponin elevation secondary to above hypertension, stable hyperlipidemia on statin Rx history of PE DVT as per records bronchial asthma, stable DM2 diet-controlled, well-controlled as of recent hemoglobin A1c of 6.3September 2021 endometrial cancer status post radiation, patient in remission chronic anemia, hemoglobin at baseline Hypokalemia secondary to home diuretic Rx chronic lymphedema bilateral knee osteoarthritis, outpatient knee injection contemplated this week by [facility] pediatric physician as per son. Right thyroid nodule, negative outpatient biopsy as per records Functional disability PCU Facilitate home beta-iker and titrate as needed Follow troponin, TTE for progression Inpatient follow-up cardiology eval regarding A-fib as per patient family request CS, Cefepime Inpatient urology consult for recurrent UTIs as per patient's family request Replace electrolytes, hold home HCTZ until patient euvolemic Inpatient orthopedics consult as per patient family request regarding bilateral knee osteoarthritis. (I told family that Orthopedics may hold off on injection for now given sepsis.) Hold Eliquis until patient seen by Orthopedics, IV heparin interim PT OT eval DVT prophylaxis. IV heparin while Eliquis on hold Full code Patient son requesting updates from providers. Mr. Gerald Brumfield, contact #[phone]. Text document was generated using [employer] voice recognition software. It may contain grammatical or spelling errors. Kindly contact undersigned for clarification of any documentation item in question. History of Present Illness Chief Complaint: Fall, right flank pain Primary Care Provider: Pavan Mckeon MD History obtained from patient, family, and records. Medical history significant for A-fib on Eliquis, hypertension, hyperlipidemia, history of PE DVT as per records, bronchial asthma, DM2 diet-controlled, endometrial cancer status post radiation, recurrent UTIs, GERD, chronic anemia (baseline hemoglobin of 11), chronic lymphedema, osteoarthritis. Last confinement May 2020 for new onset A-fib and E. coli UTI status post antibiotic Rx. Patient seen by Cardiology. Patient discharged on beta-iker and Eliquis Rx. No outpatient follow-up Cardiology appointment has been scheduled for patient since discharge patient functional difficulties as per outpatient PCP note. 2 weeks ago, patient had UTI symptoms for which outpatient cefdinir course prescribed. No UA obtained. UTI symptoms never really improved as per patient even after completing antibiotic course. Persistent urinary frequency symptoms. Patient lost her balance and fell on her right side on the way back to her bed from the bathroom. No head trauma or syncope no chest pain, SOB. Achy right hip pain. Patient brought to the ER for evaluation. Patient noted to be in rapid A-fib upon arrival at the ER. IV cefepime administered for sepsis. MEDICAL HISTORY: As above. SURGICAL HISTORY: Bilateral tubal ligation, cholecystectomy, appendectomy, D&C, FAMILY HISTORY: Heart disease, COPD. PERSONAL SOCIAL HISTORY: Nonsmoker, no chronic intake of alcoholic beverages. 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 Lives by herself. Allergies Allergy/AdvReac Type Severity Reaction Status Date / Time doxycycline Allergy Intermediate SWELLING Verified 03/12/21 07:09 codeine Allergy Mild PER Verified 03/12/21 07:09 PATIENT "MADE HER MARY ANNE CRAZY" WHEN SHE TOOK ALOT Sulfa (Sulfonamide Allergy Mild Gastrointestinal Verified 03/12/21 07:09 Antibiotics) Upset tetracycline Allergy Mild SWELLING Verified 03/12/21 07:09 TO EYES NARINDER Inhibitors AdvReac Intermediate cough Verified 03/12/21 07:09 Home Medications Medication Instructions Recorded Confirmed Type aspirin 81 mg tablet,delayed 81 mg PO PM 05/22/20 12/08/22 History release (Adult Aspirin Regimen) atorvastatin 80 mg tablet 80 mg PO PM 05/22/20 12/08/22 History azelastine 205.5 mcg (0.15 %) 1 spray intranasal BID PRN 05/22/20 12/08/22 History nasal spray Congestion hydrochlorothiazide 25 mg tablet 25 mg PO QAM 05/22/20 12/08/22 History lansoprazole 30 mg delayed 30 mg PO BID 05/22/20 12/08/22 History release,disintegrating tablet levalbuterol HCl 0.31 mg/3 mL 0.31 mg inhalation DAILY PRN 05/22/20 12/08/22 History solution for nebulization (Xopenex) Shortness Of Breath losartan 25 mg tablet 25 mg PO PM 05/22/20 12/08/22 History multivitamin (Daily Multi-Vitamin 1 tab PO PM 05/22/20 12/08/22 History tablet) meclizine 25 mg tablet 25 mg PO TID PRN Dizziness 06/05/22 12/08/22 History trospium 60 mg capsule,extended 60 mg PO PM 06/05/22 12/08/22 History release 24 hr apixaban 5 mg tablet (Eliquis) 5 mg PO BID #60 tabs 06/07/22 12/08/22 Rx famotidine 20 mg tablet 20 mg PO BID PRN breakthrough 06/07/22 12/08/22 Rx heart burn #60 tabs metoprolol succinate 25 mg 25 mg PO BID #60 tabs 06/07/22 12/08/22 Rx tablet,extended release 24 hr spironolactone 25 mg tablet 12.5 mg PO DAILY #30 tabs 06/07/22 12/08/22 Rx tramadol 50 mg tablet 50 - 100 mg PO Q8 PRN Pain, Severe 12/08/22 12/08/22 History Past Med/Surg History Medical History Acquired lymphedema TO STOMACH> GETS THERAPY/MASSAGE TO MANAGE > WAS COMPLICATION AFTER RADIATION TREATMENT Asthma WELL CONTROLLED> JUST TRIGGERED BY ODORS; no inh Atrial fibrillation with rapid ventricular response Chronic bronchitis Deep vein thrombosis FEBRUARY 2011 > CAUSED BY PROLONGED SITTING DURING A PREVIOUS HOSPITALIZATION > TREATED WITH COUMADIN Diabetes mellitus, type II GERD (gastroesophageal reflux disease) diet controlled History of anesthesia reaction woke up during D&C, colonoscopy Hyperlipidemia Hypertension IBS (irritable bowel syndrome) Lipodermatosclerosis Morbid obesity On home O2 2 lpm qHS Osteoarthritis Overactive bladder Pulmonary embolism FEBRUARY 2011 > CAUSED BY PROLONGED SITTING DURING A PREVIOUS HOSPITALIZATION > TREATED WITH COUMADIN Uterine cancer APR 2014 > RADIATION > RESOLVED Vertigo Vitreous detachment of both eyes Surgical History History of bilateral tubal ligation History of cardiac cath NO STENTS > OVER 10 YRS AGO > DONE FOR CP History of cataract surgery RT History of cholecystectomy History of colonoscopy History of dilatation and curettage History of esophagogastroduodenoscopy (EGD) History of tooth extraction Hx of hernia repair VENTRAL WITH MESH Family History Other No family history of adverse response to anesthesia Social History (Reviewed 03/29/23 @ 08:51 by ZEENAT Aburto Smoking Status: Never smoker Second Hand Exposure: No; Hx Alcohol Use: No Hx Substance Use: No Preferred Language: Romansh Communication Ability: Effective Dumpster Driver Required: No Beliefs That Will Affect Care: None Current Living Situation: Alone Other Information That Helps Us Care for You: No Feels Safe at Home: Yes Safety Concerns: Feels Safe At This Time Assistive Devices: Glasses and Lift Chair Review of Systems Review of Systems: As per HPI, all other systems reviewed and negative Physical Exam Physical Exam: GENERAL: Comfortable, pleasant, morbidly obese, no respiratory distress SKIN: Pallor, warm HEENT: Bespectacled, pale palpebral conjunctivae, no ptosis, dry buccal mucosa NECK : Supple, short neck, no tenderness CHEST : Decreased breath sounds, no tenderness HEART : Irregular, no obvious murmurs ABDOMEN: distention, nontender EXTREMITIES : Bilateral LE swelling , no LE tenderness, no other conspicuous deformities noted NEUROLOGIC : Coherent, no facial asymmetry, gait and stance not assessed Results & Data Results & Data Vital Signs (Past 12 Hours) Vital Signs Temp Pulse Resp BP Pulse Ox O2 Del Method O2 Flow Rate 12/08/22 23:50 93 H 19 97 12/08/22 23:40 98 H 24 98 12/08/22 23:31 91 H 20 103/55 L 100 12/08/22 23:30 91 H 21 98 12/08/22 23:20 93 H 24 97 12/08/22 23:10 91 H 21 12/08/22 23:00 95 H 23 97 12/08/22 22:50 99 H 20 94 12/08/22 22:40 102 H 23 97 12/08/22 22:35 99 H 21 114/70 96 12/08/22 22:30 96 H 20 96/58 L 96 12/08/22 23:38 95 H 12/08/22 22:21 91 H 22 104/69 97 12/08/22 22:20 93 H 23 96 12/08/22 22:10 92 H 18 95 12/08/22 22:00 104 H 28 H 97 12/08/22 21:50 92 H 19 95 12/08/22 21:40 104 H 19 95 12/08/22 21:30 101 H 20 95 12/08/22 21:20 109 H 24 96 12/08/22 21:10 108 H 95 12/08/22 21:06 107 H 20 117/56 L 96 12/08/22 20:30 102 H 20 94 12/08/22 20:20 115 H 95 12/08/22 20:18 92 12/08/22 19:50 102 H 19 93 12/08/22 19:40 106 H 24 92 12/08/22 19:30 110 H 18 94 12/08/22 19:27 115 H 20 127/56 L 93 12/08/22 21:13 114 H 117/56 L 12/08/22 19:34 105 H 18 92 Nasal Cannula 2 12/08/22 19:26 110 H 12/08/22 19:04 37.5 C 118 H 22 127/56 L 93 Nasal Cannula 2 Laboratory Results Laboratory Results WBC 13.94 K/ul (4.8-10.8) H 12/08/22 19:44 RBC 4.26 M/uL (4.20-5.40) 12/08/22 19:44 Hgb 11.2 g/dl (12.0-16.0) L 12/08/22 19:44 POC Hgb 12.2 g/dl (12.0-16.0) 12/08/22 19:50 Hct 35.6 % (37.0-47.0) L 12/08/22 19:44 POC Hct 36 % (37-47) L 12/08/22 19:50 MCV 83.6 fL (80.0-100.0) 12/08/22 19:44 MCH 26.3 pg (25.0-34.0) 12/08/22 19:44 MCHC 31.5 g/dL (32.0-36.0) L 12/08/22 19:44 RDW Std Deviation 48.1 fL (36.4-46.3) H 12/08/22 19:44 RDW Coeff of Rodolfo 15.9 % (11.5-14.5) H 12/08/22 19:44 Plt Count 209 K/uL (130-400) 12/08/22 19:44 MPV 10.3 fL (9.4-12.4) 12/08/22 19:44 Immature Gran % (Auto) 0.6 % 12/08/22 19:44 Neut % (Auto) 87.0 % 12/08/22 19:44 Lymph % (Auto) 5.2 % 12/08/22 19:44 Bond % (Auto) 7.0 % 12/08/22 19:44 Eos % (Auto) 0.0 % 12/08/22 19:44 Baso % (Auto) 0.2 % 12/08/22 19:44 Neut # (Auto) 12.12 K/uL (1.40-6.50) H 12/08/22 19:44 Lymph # (Auto) 0.72 K/uL (1.2-3.4) L 12/08/22 19:44 Bond # (Auto) 0.98 K/uL (0.11-0.59) H 12/08/22 19:44 Eos # (Auto) 0.00 K/uL (0-0.50) 12/08/22 19:44 Baso # (Auto) 0.03 K/uL (0-0.2) 12/08/22 19:44 Immature Gran # (Auto) 0.09 K/uL (0.01-0.20) 12/08/22 19:44 PT 12.1 Seconds (9.0-12.0) H 12/08/22 19:44 INR 1.1 (0.9-1.1) 12/08/22 19:44 POC Sodium 134 mmol/L (135-144) L 12/08/22 19:50 Sodium 134 mmol/L (136-145) L 12/08/22 19:44 POC Potassium 3.4 mmol/L (3.3-5.0) 12/08/22 19:50 Potassium 3.4 mmol/L (3.5-5.1) L 12/08/22 19:44 POC Chloride 93 mmol/L (101-112) L 12/08/22 19:50 Chloride 96 mmol/L (98-107) L 12/08/22 19:44 Carbon Dioxide 29 mmol/L (21-32) 12/08/22 19:44 POC Total CO2 30 mmol/L (24-31) 12/08/22 19:50 Anion Gap 9 (3-11) 12/08/22 19:44 POC Anion Gap 15.0 mmol/L (16-25) L 12/08/22 19:50 POC BUN 14 mg/dl (7-18) 12/08/22 19:50 BUN 15 mg/dl (6-23) 12/08/22 19:44 Creatinine 0.67 mg/dl (0.6-1.2) 12/08/22 19:44 POC Creatinine 0.7 mg/dl (0.6-1.3) 12/08/22 19:50 Est Cr Clr Drug Dosing Not Reportable 12/08/22 19:44 Est GFR ( Amer) 99.0 ml/min 12/08/22 19:44 Est GFR (Non-Af Amer) 85.4 ml/min 12/08/22 19:44 BUN/Creatinine Ratio 22.4 (10-20) H 12/08/22 19:44 Glucose 141 mg/dl (70-99(Fasting)) H 12/08/22 19:44 POC Glucose (other) 145 mg/dl (70-99) H 12/08/22 19:50 Lactate 2.0 mmol/L (0.4-2.0) 12/08/22 23:02 Calcium 8.8 mg/dl (8.6-10.3) 12/08/22 19:44 POC Ioniz Calcium Stevenson 1.12 mmol/l (1.12-1.32) 12/08/22 19:50 Magnesium 2.1 mg/dl (1.7-2.4) 12/08/22 23:02 Total Bilirubin 1.4 mg/dl (0.2-1.0) H 12/08/22 19:44 AST 14 U/L (13-39) 12/08/22 19:44 ALT 13 U/L (7-52) 12/08/22 19:44 Alkaline Phosphatase 114 U/L (34-104) H 12/08/22 19:44 Total Creatine Kinase 114 U/L (26-192) 12/08/22 19:44 Troponin I High Sens 123.1 pg/ml (0-14) H* D 12/08/22 23:02 Total Protein 6.4 gm/dl (6.0-8.3) 12/08/22 19:44 Albumin 3.5 gm/dl (3.4-5.0) 12/08/22 19:44 Globulin 2.9 gm/dl (2.5-4.0) 12/08/22 19:44 Albumin/Globulin Ratio 1.2 (0.9-2) 12/08/22 19:44 Procalcitonin 0.41 ng/ml (0-0.5) 12/08/22 23:02 Urine Color Yellow 12/08/22 22:23 Urine Appearance Cloudy (Clear) A 12/08/22 22:23 Urine pH 6.0 (4.5-7.5) 12/08/22 22:23 Ur Specific [place] 1.035 (1.000-1.030) H 12/08/22 22:23 Urine Protein 1+ (Negative) H 12/08/22 22: Urine Glucose (UA) Negative (Negative) 12/08/22 22: Urine Ketones Negative (Negative) 12/08/22 22: Urine Blood 2+ (Negative) H 12/08/22 22:23 Urine Nitrite Positive (Negative) A 12/08/22 22:23 Urine Bilirubin Negative (Negative) 12/08/22 22:23 Urine Urobilinogen Negative (Negative) 12/08/22 22:23 Ur Leukocyte Esterase 2+ (Negative) H 12/08/22 22:23 Urine WBC (Auto) >30 /hpf (0-5) H 12/08/22 22:23 Urine RBC (Auto) 10-30 /hpf (0-4) H 12/08/22 22:23 U Hyaline Cast (Auto) 0 /lpf (0-5) 12/08/22 22: U Epithel Cells (Auto) 5-10 /lpf (0-5) H 12/08/22 22:23 Urine Bacteria (Auto) 4+ (Negative) H 12/08/22 22:23 SARS-CoV-2, RNA, NAAT NEGATIVE (NEGATIVE) 12/08/22 19:46 Impressions Femur X-Ray 12/08/22 19:34 RIGHT FEMUR 3 VIEWS CLINICAL HISTORY: Fall. Right hip pain. FINDINGS: AP, frog-leg, and lateral views of the right femur are obtained. No prior studies are available for comparison at the time of dictation. The skeletal structures are osteopenic. There is no radiographic evidence of right femoral fracture. The visualized right hemipelvis appears intact. Degenerative change is noted in the right hip and knee joints. Sclerotic change is noted in the right sacroiliac joint. The overlying soft tissues are within normal limits. There is atherosclerotic calcification of the femoral artery. Tiny surgical clips project over the pelvis. IMPRESSION: There is no radiographic evidence of right femoral fracture. Electronically signed by: Veto De La Cruz M.D. 12/08/2022 9:50 PM Abdomen/Pelvis CT 12/08/22 19:35 Exam(s): CT ABDOMEN + PELVIS With Contrast EXAM: CT Abdomen and Pelvis With Intravenous Contrast CLINICAL HISTORY: fall, back /hip pain. TECHNIQUE: Axial computed tomography images of the abdomen and pelvis with intravenous contrast. Automated exposure control was utilized for the study. A dose lowering technique was utilized adhering to the principles of ALARA. COMPARISON: CT abdomen and pelvis without contrast dated 12/19/2017 FINDINGS: Lung bases: Unremarkable. No mass. No consolidation. ABDOMEN: Liver: The liver appears intact without evidence for acute traumatic injury. Gallbladder and bile ducts: The gallbladder is not identified and is presumed surgically absent. No ductal dilation. Pancreas: Unremarkable. No mass. No ductal dilation. Spleen: The spleen is intact without evidence for traumatic injury. Adrenals: Unremarkable. No significant alteration in appearance of the right adrenal nodule measuring 16 mm the left adrenal gland is unremarkable. Kidneys and ureters: The kidneys demonstrate normal enhancement without evidence for traumatic injury. There is mild hydronephrosis and proximal left hydroureter with multiple calcifications noted in the left collecting system, measuring up to 2.1 cm in the renal pelvis. Incidental cortical cyst involving the lateral aspect of the left kidney measuring 2.3 cm. Stomach and bowel: Unremarkable. No traumatic bowel injury. No bowel obstruction. PELVIS: Appendix: No findings to suggest acute appendicitis. Bladder: Unremarkable. No mass. Reproductive: Unremarkable as visualized. ABDOMEN and PELVIS: Intraperitoneal space: Unremarkable. No free air. No significant fluid collection. Retroperitoneal space: Unremarkable. No retroperitoneal hematoma. Bones/joints: Similar degenerative changes of the included thoracolumbar spine. No compression fracture. The pelvic bones and proximal femurs are intact. No dislocation. Soft tissues: No significant overlying acute traumatic soft tissue abnormality. Dependent edema in the anterior pannus incidentally noted. Suspected repair of the previously noted umbilical hernia. Vasculature: Atherosclerotic calcification of the normal caliber aorta, stable. No acute periaortic abnormality identified. No abdominal aortic aneurysm. Lymph nodes: Unremarkable. No enlarged lymph nodes. IMPRESSION: 1. Similar degenerative changes of the included thoracolumbar spine. No compression fracture. The pelvic bones and proximal femurs are intact. 2. No significant acute traumatic injury to the abdomen or pelvis. Incidental findings, as noted above. Electronically signed by: Gerald Muñiz MD 12/08/22 21:[address] 12/08/22 19:35 Exam(s): CT C SPINE EXAM: CT Cervical Spine Without Intravenous Contrast CLINICAL HISTORY: Fall TECHNIQUE: Axial computed tomography images of the cervical spine without intravenous contrast. Automated exposure control was utilized for the study. A dose lowering technique was utilized adhering to the principles of ALARA. COMPARISON: No relevant prior studies available. FINDINGS: Vertebrae: The vertebral bodies are intact without acute fracture. No anterolisthesis or retrolisthesis noted. There is straightening of the normal cervical lordosis. The pedicles, facet joints and transverse processes are intact. There is heterotopic calcification along the posterior margin of the C7 spinous process. The spinous processes are otherwise intact. Discs/spinal canal/neural foramina: Disc space narrowing with marginal hypertrophic changes noted at several levels throughout the cervical spine. No significant osseous central canal stenosis. Soft tissues: Unremarkable. Thyroid: There is asymmetric enlargement of the right thyroid with internal calcifications a probable solid nodule, estimated at 3 cm. IMPRESSION: 1. No acute osseous traumatic injury or significant abnormal alignment involving the cervical spine. 2. Heterotopic calcification along the posterior margin of the C7 spinous processes presumed either prior traumatic injury or minimal calcification of the nuchal ligament. Please correlate with clinical findings however. 3. Asymmetric enlargement of the right thyroid lobe with suspected solid nodule and internal calcifications. Recommend nonemergent thyroid ultrasound, if not previously evaluated. Electronically signed by: Gerald Muñiz MD 12/08/22 21:[address] 12/08/22 19:35 Exam(s): CT CHEST With Contrast IV Amt: 84 ml optiray 350 EXAM: CT Chest With Intravenous Contrast CLINICAL HISTORY: fall, back /hip pain. TECHNIQUE: Axial computed tomography images of the chest with intravenous contrast. Automated exposure control was utilized for the study. A dose lowering technique was utilized adhering to the principles of ALARA. CONTRAST: Patient received 84 ml optiray 350 of IV contrast COMPARISON: CTA chest dated 06/05/2022 FINDINGS: Lungs: Similar subsegmental changes in both lungs are similar in appearance to the previous examination. No significant pulmonary contusive injury. Pleural space: Unremarkable. No pneumothorax. No significant effusion. Heart: The cardiac chambers are stable and remain mildly enlarged. Similar coronary artery calcification. No significant pericardial effusion. Mediastinum: Small hiatal hernia. No mediastinal traumatic injury. Thyroid: Asymmetric enlargement of the right thyroid gland with internal calcifications. Bones/joints: The thoracic vertebral bodies are stable in appearance when compared to the previous examination with similar mild loss of height noted at T3 and T4 levels. Similar remote right lateral rib fractures. Similar degenerative changes of the shoulder with probable remote traumatic injury of the proximal right humerus. No acute osseous abnormality. No dislocation. Soft tissues: Unremarkable. No significant overlying acute traumatic soft tissue abnormality. Vasculature: Atherosclerotic calcification of the aorta. No evidence for acute traumatic injury or alteration. Lymph nodes: Unremarkable. No enlarged lymph nodes. IMPRESSION: No significant acute traumatic injury identified involving the chest/thorax. No significant alteration from the previous examination. Electronically signed by: Gerald Muñiz MD 12/08/22 22:[address] 12/08/22 19:35 Exam(s): CT HEAD Without Contrast EXAM: CT Head Without Intravenous Contrast CLINICAL HISTORY: Fall. TECHNIQUE: Axial computed tomography images of the head/brain without intravenous contrast. Automated exposure control was utilized for the study. A dose lowering technique was utilized adhering to the principles of ALARA. COMPARISON: No relevant prior studies available. FINDINGS: Limitations: There is motion artifact through the mid to inferior calvarium, which degrades image quality on multiple image slices. Brain: No definite intracranial hemorrhage; evaluation for subtle extra-axial pathology along the margins of the parenchyma is limited in regions of streak motion artifact. No significant mass effect. Mild periventricular deep white matter hypodense changes noted. Ventricles: Unremarkable. No midline shift or ventriculomegaly. Bones/joints: No definite skull fracture. Soft tissues: Unremarkable. Vasculature: Atherosclerotic calcification of the cavernous and supraclinoid internal carotid arteries. Sinuses: Unremarkable as visualized. No acute sinusitis. Mastoid air cells: Unremarkable as visualized. No mastoid effusion. IMPRESSION: No definite acute intracranial process identified, accounting for limitations with motion artifact. Electronically signed by: Gerald Muñiz MD 12/08/22 21:15 PM Shoulder X-Ray 12/08/22 19:40 RIGHT SHOULDER 3 VIEWS CLINICAL HISTORY: Fall. Right shoulder injury. FINDINGS: 3 views of the right shoulder are compared to study dated 11/10/2015. The skeletal structures are osteopenic. There is no radiographic evidence of acute fracture or dislocation. There is chronic posttraumatic deformity of the right proximal humerus. 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 Productive degenerative changes noted at the acromioc lavicular joint. The overlying soft tissues are within normal limits. Chronic parenchymal changes are noted in the right lung. Chronic right-sided rib fractures are noted. IMPRESSION: 1. No acute bony abnormality is identified. 2. Chronic posttraumatic and degenerative changes as above. Electronically signed by: Veto De La Cruz M.D. 12/08/2022 9:19 PM Diagnostic Findings EKG as per my interpretation :Rate 110, A-fib, normal axis, no ischemia, low voltage
[2022-12-09] MEDS ORDERED: Heparin IV Adult Wt-Based Standard *NO* Bolus Protocol IV SCH (00:57)
[2022-12-09] MEDS ORDERED: POTASSIUM CHLORIDE PWD 20 MEQ PACK PO ONE (02:00)
[2022-12-09] MEDS ORDERED: CARBOHYDRATES FOR HYPOGLYCEMIA PO PRN (02:04)
[2022-12-09] MEDS ORDERED: FAMOTIDINE 20 MG TAB PO PRN (02:04)
[2022-12-09] MEDS ORDERED: PROMETHAZINE HCL 12.5 MG in SODIUM CHLORIDE 0.9% 50 ML IV PRN (02:04)
[2022-12-09] MEDS ORDERED: GLUCAGON FOR INJ 1 MG VIAL SQ PRN (02:04)
[2022-12-09] MEDS ORDERED: GLUCOSE 40% GEL 15 GM TUBE PO PRN (02:04)
[2022-12-09] MEDS ORDERED: DEXTROSE 50% 50 ML SYRINGE IV PRN (02:04)
[2022-12-09] MEDS ORDERED: GLUCOSE 10 TAB/TUBE PO PRN (02:04)
[2022-12-09] MEDS: HEPARIN SODIUM/DEXTROSE 25,000 UNITS/500 ML BAG IV SCH ×2 (02:20→18:20)
[2022-12-09] MEDS: ACETAMINOPHEN 325 MG TAB PO PRN ×2 (02:33→11:59)
[2022-12-09] MEDS: INSULIN ASPART PER UNIT CHARGE SC SCH ×5 (03:59→20:16)
--- NOTE | 2022-12-09 06:14 | Urology Consultation ---
Date of Consultation December 09, 2022 Assessment & Plan (1) Overactive bladder: (2) Acute UTI: The patient has been admitted on the hospitalist service. We recommend proceeding as follows.: Patient has been started on antibiotics in form of cefepime for urinary tract infection. Appropriate cultures have been sent. Antibiotics can be tailored based on these culture results Concerning patient's overactive bladder will be beneficial if we can see the patient's outpatient family physician notes to see which medicines were tried for this problem and then consideration be given to either resuming 1 of these medications or trying something new. We will see if the hospitalist can assist with obtaining her family physician note today I discussed with the nursing staff that postvoid residual should be checked after voiding to see if patient is retaining urine and if this is the case perhaps a Osorio catheter can be temporary placed to provide maximal drainage. History of Present Illness Reason for Consultation: Urinary tract infection Attending Physician: Trevon Jo MD History of Present Illness This is a 77-year-old male who was admitted to [facility] last evening secondary to suffering a fall. Patient usually ambulates with a walker and was on her way back to the bathroom when she lost her balance and fell. She did not strike her head or lose consciousness. Urology is asked to see the patient because of a recent urinary tract infection and an overactive bladder. The patient notes that she often has the urge to urinate and cannot control her urination. She did report to me that she feels as though she can empty her bladder the entire way. She presently does not report any dysuria or hematuria. She does not report any flank pain. She is unsure when her most recent urinary tract infection was. Patient also reports that due to her overactive bladder her family physician has tried 1 or 2 medications that she is not sure of the name of. Because of her overactive bladder and urinary tract infection she was interested in having another urology evaluation. Since arrival to the hospital patient has had labs and imaging which independent reviewed. Patient did undergo a CT scan abdomen pelvis that showed left hydronephrosis and hydroureter. There were some calcifications in the renal collecting system measuring up to 2.1 cm in the renal pelvis. Labs include a CBC her white blood cell count was 13.9. Hemoglobin and hematocrit were 11.2 and 12.2. Platelet count was normal. Chemistry profile showed sodium and potassium 134 and 3.4. BUN and creatinine were both normal. Urinalysis showed cloudy urine which was positive for nitrites and 2+ leukocyte Estrace. There were greater than 30 white blood cells per high-power field and 4+ bacteria. A COVID test was negative. Allergies Allergy/AdvReac Type Severity Reaction Status Date / Time doxycycline Allergy Intermediate SWELLING Verified 03/12/21 07:09 codeine Allergy Mild PER Verified 03/12/21 07:09 PATIENT "MADE HER MARY ANNE CRAZY" WHEN SHE TOOK ALOT Sulfa (Sulfonamide Allergy Mild Gastrointestinal Verified 03/12/21 07:09 Antibiotics) Upset tetracycline Allergy Mild SWELLING Verified 03/12/21 07:09 TO EYES NARINDER Inhibitors AdvReac Intermediate cough Verified 03/12/21 07:09 Home Medications Medication Instructions Recorded Confirmed Type aspirin 81 mg tablet,delayed 81 mg PO PM 05/22/20 12/08/22 History release (Adult Aspirin Regimen) atorvastatin 80 mg tablet 80 mg PO PM 05/22/20 12/08/22 History azelastine 205.5 mcg (0.15 %) 1 spray intranasal BID PRN 05/22/20 12/08/22 History nasal spray Congestion hydrochlorothiazide 25 mg tablet 25 mg PO QAM 05/22/20 12/08/22 History lansoprazole 30 mg delayed 30 mg PO BID 05/22/20 12/08/22 History release,disintegrating tablet levalbuterol HCl 0.31 mg/3 mL 0.31 mg inhalation DAILY PRN 05/22/20 12/08/22 History solution for nebulization (Xopenex) Shortness Of Breath losartan 25 mg tablet 25 mg PO PM 05/22/20 12/08/22 History multivitamin (Daily Multi-Vitamin 1 tab PO PM 05/22/20 12/08/22 History tablet) meclizine 25 mg tablet 25 mg PO TID PRN Dizziness 06/05/22 12/08/22 History trospium 60 mg capsule,extended 60 mg PO PM 06/05/22 12/08/22 History release 24 hr apixaban 5 mg tablet (Eliquis) 5 mg PO BID #60 tabs 06/07/22 12/08/22 Rx famotidine 20 mg tablet 20 mg PO BID PRN breakthrough 06/07/22 12/08/22 Rx heart burn #60 tabs metoprolol succinate 25 mg 25 mg PO BID #60 tabs 06/07/22 12/08/22 Rx tablet,extended release 24 hr spironolactone 25 mg tablet 12.5 mg PO DAILY #30 tabs 06/07/22 12/08/22 Rx tramadol 50 mg tablet 50 - 100 mg PO Q8 PRN Pain, Severe 12/08/22 12/08/22 History Patient History Medical History Acquired lymphedema TO STOMACH> GETS THERAPY/MASSAGE TO MANAGE > WAS COMPLICATION AFTER RADIATION TREATMENT Asthma WELL CONTROLLED> JUST TRIGGERED BY ODORS; no inh Atrial fibrillation with rapid ventricular response Chronic bronchitis Deep vein thrombosis FEBRUARY 2011 > CAUSED BY PROLONGED SITTING DURING A PREVIOUS HOSPITALIZATION > TREATED WITH COUMADIN Diabetes mellitus, type II GERD (gastroesophageal reflux disease) diet controlled History of anesthesia reaction woke up during D&C, colonoscopy Hyperlipidemia Hypertension IBS (irritable bowel syndrome) Lipodermatosclerosis Morbid obesity On home O2 2 lpm qHS Osteoarthritis Overactive bladder Pulmonary embolism FEBRUARY 2011 > CAUSED BY PROLONGED SITTING DURING A PREVIOUS HOSPITALIZATION > TREATED WITH COUMADIN Uterine cancer APR 2014 > RADIATION > RESOLVED Vertigo Vitreous detachment of both eyes Surgical History History of bilateral tubal ligation History of cardiac cath NO STENTS > OVER 10 YRS AGO > DONE FOR CP History of cataract surgery RT History of cholecystectomy History of colonoscopy History of dilatation and curettage History of esophagogastroduodenoscopy (EGD) History of tooth extraction Hx of hernia repair VENTRAL WITH MESH Family History Other No family history of adverse response to anesthesia Social History Smoking Status: Never smoker Second Hand Exposure: No; Hx Alcohol Use: No Hx Substance Use: No Preferred Language: Uzbek Communication Ability: Effective Valve Mechanic Required: No Beliefs That Will Affect Care: None Current Living Situation: Alone Other Information That Helps Us Care for You: No Feels Safe at Home: Yes Safety Concerns: Feels Safe At This Time Assistive Devices: Glasses and Lift Chair Review of Systems Constitutional: no fever and no chills Eyes: + corrective lenses Ear, Nose, Mouth, Throat: no ear pain Respiratory: no cough and no dyspnea Cardiovascular: no chest pain Gastrointestinal: no nausea and no vomiting Genitourinary: as per Subjective / HPI Musculoskeletal: + back pain Integumentary: no rash Neurologic: no localized weakness Physical Exam Constitutional: WD/WN, vitals as above Eyes: Wears glasses ENMT: Ears: no hearing impairment Mouth: no oropharynx abnormality Neck: trachea midline Respiratory: normal respiratory effort; no respiratory distress and no labored breathing Cardiovascular: Rate/Rhythm: regular rate and regular rhythm Gastrointestinal (Abdomen): Abdomen is rotund with large pannus. There is no rebound tenderness or guarding or pain with palpation Musculoskeletal: No calf tenderness Skin: no rashes Neurologic: moves all extremities Psychiatric: A+Ox3, euthymic affect Genitourinary: no CVA tenderness Results & Data Vital Signs (Past 12 Hours) Vital Signs Temp Pulse Pulse Resp BP BP Pulse Ox 12/09/22 05:51 12/09/22 04:00 109 H 16 108/54 L 99 12/09/22 02:40 108 H 18 96/80 L 93 12/09/22 02:40 12/09/22 00:50 96 H 23 97 12/09/22 00:40 97 H 24 97 12/09/22 00:31 90 23 99 12/09/22 00:30 97 H 15 129/88 98 12/09/22 00:20 100 H 19 98 12/09/22 00:10 94 H 21 99 12/09/22 00:00 95 H 23 105/59 L 98 12/08/22 23:50 93 H 19 97 12/08/22 23:40 98 H 24 98 12/08/22 23:31 91 H 20 103/55 L 100 12/08/22 23:30 91 H 21 98 12/08/22 23:20 93 H 24 97 12/08/22 23:10 91 H 21 12/08/22 23:00 95 H 23 97 12/08/22 22:50 99 H 20 94 12/08/22 22:40 102 H 23 97 12/08/22 22:35 99 H 21 114/70 96 12/08/22 22:30 96 H 20 96/58 L 96 12/08/22 23:38 95 H 12/08/22 22:21 91 H 22 104/69 97 12/08/22 22:20 93 H 23 96 12/08/22 22:10 92 H 18 95 12/08/22 22:00 104 H 28 H 97 12/08/22 21:50 92 H 19 95 12/08/22 21:40 104 H 19 95 12/08/22 21:30 101 H 20 95 12/08/22 21:20 109 H 24 96 12/08/22 21:10 108 H 95 12/08/22 21:06 107 H 20 117/56 L 96 12/08/22 20:30 102 H 20 94 12/08/22 20:20 115 H 95 12/08/22 20:18 92 12/08/22 19:50 102 H 19 93 12/08/22 19:40 106 H 24 92 12/08/22 19:30 110 H 18 94 12/08/22 19:27 115 H 20 127/56 L 93 12/08/22 21:13 114 H 117/56 L 12/08/22 19:34 105 H 18 92 12/08/22 19:26 110 H 12/08/22 19:04 37.5 C 118 H 22 127/56 L 93 Pulse Ox O2 Del Method O2 Del Method O2 Flow Rate O2 Flow Rate 12/09/22 05:51 Nasal Cannula 2 12/09/22 04:00 Nasal Cannula 2 12/09/22 02:40 Nasal Cannula 2 12/09/22 02:40 93 Nasal Cannula 2 12/09/22 00:50 12/09/22 00:40 12/09/22 00:31 12/09/22 00:30 12/09/22 00:20 12/09/22 00:10 12/09/22 00:00 12/08/22 23:50 12/08/22 23:40 12/08/22 23:31 12/08/22 23:30 12/08/22 23:20 12/08/22 23:10 12/08/22 23:00 12/08/22 22:50 12/08/22 22:40 12/08/22 22:35 12/08/22 22:30 12/08/22 23:38 12/08/22 22:21 12/08/22 22:20 12/08/22 22:10 12/08/22 22:00 12/08/22 21:50 12/08/22 21:40 12/08/22 21:30 12/08/22 21:20 12/08/22 21:10 12/08/22 21:06 12/08/22 20:30 12/08/22 20:20 12/08/22 20:18 12/08/22 19:50 12/08/22 19:40 12/08/22 19:30 12/08/22 19:27 12/08/22 21:13 12/08/22 19:34 Nasal Cannula 2 12/08/22 19:26 12/08/22 19:04 Nasal Cannula 2 PG Care Time/CCT Total # of Minutes Spent Total Time Spent with Patient: Total time spent is greater than 50% in coordination of care (as documented) at patient's floor/unit and/or counseling patient: Coding Level of Care Code 75801 INT INP/OBS CARE 3/75MIN Diagnoses Overactive bladder N32.81 Acute UTI N39.0
[2022-12-09] MEDS ORDERED: METOPROLOL SUCC 25MG EXT REL TAB PO SCH ×2 (07:05→09:00)
[2022-12-09 08:50] LABS: Basophils # (auto) 0.03 K/uL (0-0.2); Basophils % (auto) 0.2 %; Eosinophils # (auto) 0.01 K/uL (0-0.50); Eosinophils % (auto) 0.1 %; Hematocrit (blood only) 34.2 % (37.0-47.0); Hemoglobin 10.8 g/dl (12.0-16.0); Immature Granulocytes # (auto) 0.08 K/uL (0.01-0.20); Immature Granulocytes % (auto) 0.5 %; Lymphocytes # (auto) 1.06 K/uL (1.2-3.4); Lymphocytes % (auto) 7.2 %; Mean Corpuscular Hemoglobin 26.7 pg (25.0-34.0); Mean Corpuscular Hgb Conc 31.6 g/dL (32.0-36.0); Mean Corpuscular Volume 84.7 fL (80.0-100.0); Mean Platelet Volume 10.1 fL (9.4-12.4); Monocytes # (auto) 1.03 K/uL (0.11-0.59); Neutrophils # (auto) 12.61 K/uL (1.40-6.50); Platelet Count 173 K/uL (130-400); RDW Standard Deviation 49.9 fL (36.4-46.3); Red Blood Count 4.04 M/uL (4.20-5.40); White Blood Count 14.82 K/ul (4.8-10.8)
--- NOTE | 2022-12-09 08:59 | Orthopedic Consultation ---
Date of Service December 09, 2022 Assessment & Plan (1) Osteoarthritis of knees, bilateral: She was seen and examined by Dr. Gotti today as well. She has some right shoulder pain, bilateral knee pain, which are chronic for her. Also has some right hip pain, but seems to be more low back. Her xrays were negative for acute fractures. She has advanced knee DJD and was scheduled to see one of our providers next week for injections. She is hoping to have that done during this hospitalization. Her blood glucose is 140 today. She has a UTI and blood cultures are pending so we will await those results before proceeding with injections. If her blood cultures are negative we could inject her knees while she is here. History of Present Illness Reason for Consultation: . Bilateral knee pain/follow up Requesting Physician: . Attending Physician: Trevon Jo MD .Amy is a 77 year old patient admitted last night after a fall, with history of recent/recurrent UTI. She has a history of known bilateral knee DJD and has had intermittent injections including steroid and viscosupplementation. She had the gel injections about 4 months ago and says they really did not provide any relief. The steroid seems to work better for her. Last night she was apparently walking with her walker and fell onto her left side. She has some right hip pain/low back pain. She has a history of a right proximal humerus fracture and shoulder DJD. Her shoulder continues to bother her and she has had some injections in the past for that. She feels her shoulder has been hurting more recently due to using a walker and wheelchair more. Allergies Allergy/AdvReac Type Severity Reaction Status Date / Time doxycycline Allergy Intermediate SWELLING Verified 03/12/21 07:09 codeine Allergy Mild PER Verified 03/12/21 07:09 PATIENT "MADE HER MARY ANNE CRAZY" WHEN SHE TOOK ALOT Sulfa (Sulfonamide Allergy Mild Gastrointestinal Verified 03/12/21 07:09 Antibiotics) Upset tetracycline Allergy Mild SWELLING Verified 03/12/21 07:09 TO EYES NARINDER Inhibitors AdvReac Intermediate cough Verified 03/12/21 07:09 Home Medications Medication Instructions Recorded Confirmed Type aspirin 81 mg tablet,delayed 81 mg PO PM 05/22/20 12/08/22 History release (Adult Aspirin Regimen) atorvastatin 80 mg tablet 80 mg PO PM 05/22/20 12/08/22 History azelastine 205.5 mcg (0.15 %) 1 spray intranasal BID PRN 05/22/20 12/08/22 History nasal spray Congestion hydrochlorothiazide 25 mg tablet 25 mg PO QAM 05/22/20 12/08/22 History lansoprazole 30 mg delayed 30 mg PO BID 05/22/20 12/08/22 History release,disintegrating tablet levalbuterol HCl 0.31 mg/3 mL 0.31 mg inhalation DAILY PRN 05/22/20 12/08/22 History solution for nebulization (Xopenex) Shortness Of Breath losartan 25 mg tablet 25 mg PO PM 05/22/20 12/08/22 History multivitamin (Daily Multi-Vitamin 1 tab PO PM 05/22/20 12/08/22 History tablet) meclizine 25 mg tablet 25 mg PO TID PRN Dizziness 06/05/22 12/08/22 History trospium 60 mg capsule,extended 60 mg PO PM 06/05/22 12/08/22 History release 24 hr apixaban 5 mg tablet (Eliquis) 5 mg PO BID #60 tabs 06/07/22 12/08/22 Rx famotidine 20 mg tablet 20 mg PO BID PRN breakthrough 06/07/22 12/08/22 Rx heart burn #60 tabs metoprolol succinate 25 mg 25 mg PO BID #60 tabs 06/07/22 12/08/22 Rx tablet,extended release 24 hr spironolactone 25 mg tablet 12.5 mg PO DAILY #30 tabs 06/07/22 12/08/22 Rx tramadol 50 mg tablet 50 - 100 mg PO Q8 PRN Pain, Severe 12/08/22 12/08/22 History Past Med/Surg History Medical History Acquired lymphedema TO STOMACH> GETS THERAPY/MASSAGE TO MANAGE > WAS COMPLICATION AFTER RADIATION TREATMENT Asthma WELL CONTROLLED> JUST TRIGGERED BY ODORS; no inh Atrial fibrillation with rapid ventricular response Chronic bronchitis Deep vein thrombosis FEBRUARY 2011 > CAUSED BY PROLONGED SITTING DURING A PREVIOUS HOSPITALIZATION > TREATED WITH COUMADIN Diabetes mellitus, type II GERD (gastroesophageal reflux disease) diet controlled History of anesthesia reaction woke up during D&C, colonoscopy Hyperlipidemia Hypertension IBS (irritable bowel syndrome) Lipodermatosclerosis Morbid obesity On home O2 2 lpm qHS Osteoarthritis Overactive bladder Pulmonary embolism FEBRUARY 2011 > CAUSED BY PROLONGED SITTING DURING A PREVIOUS HOSPITALIZATION > TREATED WITH COUMADIN Uterine cancer APR 2014 > RADIATION > RESOLVED Vertigo Vitreous detachment of both eyes Surgical History History of bilateral tubal ligation History of cardiac cath NO STENTS > OVER 10 YRS AGO > DONE FOR CP History of cataract surgery RT History of cholecystectomy History of colonoscopy History of dilatation and curettage History of esophagogastroduodenoscopy (EGD) History of tooth extraction Hx of hernia repair VENTRAL WITH MESH Family History Other No family history of adverse response to anesthesia Social History Smoking Status: Never smoker Second Hand Exposure: No; Hx Alcohol Use: No Hx Substance Use: No Preferred Language: Danish Communication Ability: Effective Last Waxer Required: No Beliefs That Will Affect Care: None Current Living Situation: Alone Other Information That Helps Us Care for You: No Feels Safe at Home: Yes Safety Concerns: Feels Safe At This Time Assistive Devices: Glasses and Lift Chair Review of Systems All systems reviewed & are unremarkable except as noted in HPI & below. Physical Exam .alert and oriented. NAD Right shoulder: no ecchymosis. Skin intact. Able to raise arm and actively elevate her shoulder. Has some limited range of motion. Bilateral lower extremities: She has edema of her lower extremities. Minimal knee effusions, no ecchymosis. Can actively extend her knees, flexion is about 90 degrees. She has pain with motion. No groin pain with motion of the right hip. Results & Data Results & Data Laboratory Results . Diagnostic Findings . xrays of the right shoulder reviewed and show previous right proximal humerus fracture and glenohumeral DJD. xrays of the right femur show right knee DJD, no fracture of the hip or knee. PG Care Time/CCT Total # of Minutes Spent Total Time Spent with Patient: Total time spent is greater than 50% in coordination of care (as documented) at patient's floor/unit and/or counseling patient: Coding Level of Care Code 13498 IN/OBS CONSULT LVL 3,45M Diagnoses Osteoarthritis of knees, bilateral M17.0
[2022-12-09 09:03] LABS: Partial Thromboplastin Ratio 1.3; Partial Thromboplastin Time 36.7 Seconds (21.0-31.0)
[2022-12-09 09:15] LABS: Calcium 8.6 mg/dl (8.6-10.3); Est GFR (Non-African American) 86.2 ml/min
[2022-12-09] MEDS ORDERED: HEPARIN SOD (PORCINE) 1000 UNIT/ML IV ONE (09:15)
[2022-12-09 09:46] LABS: Troponin I High Sensitivity 137.6 pg/ml (0-14)
--- NOTE | 2022-12-09 09:52 | Cardiology Consultation ---
Date of Consultation December 09, 2022 Assessment & Plan (1) Fall: (2) Atrial fibrillation with rapid ventricular response: (3) Acute UTI: (4) Chest pain: (5) Elevated troponin: Plan I would treat the patient's atrial fibrillation with rate control and anticoagulation. I will increase her metoprolol. Echocardiogram in May showed normal LV function, aortic sclerosis and a dilated left atrium. At this point I would not repeat the echocardiogram or recommend any additional cardiac studies. 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 She was ambulating in her home with a walker and sustained a fall. No major trauma. The patient was evaluated with multiple x-rays as well as an orthopedic consult and it was determined the patient has severe degenerative joint disease and no fractures. The patient also has recurrent UTIs and probable sepsis from the UTI. She is being followed by urology. The patient has known atrial fibrillation from a previous hospital admission in May. Unfortunately, the patient never had follow-up with us. She has been treated with rate control metoprolol as well as Eliquis for anticoagulation. Monitor was placed in October that showed continuous atrial fibrillation. She was admitted with atrial fibrillation RVR. High-sensitivity troponins are borderline elevated and most likely a type II elevation due to the rapid atrial fibrillation. She denies shortness of breath. She does have chronic chest pain related to GERD. Allergies Allergy/AdvReac Type Severity Reaction Status Date / Time doxycycline Allergy Intermediate SWELLING Verified 03/12/21 07:09 codeine Allergy Mild PER Verified 03/12/21 07:09 PATIENT "MADE HER MARY ANNE CRAZY" WHEN SHE TOOK ALOT Sulfa (Sulfonamide Allergy Mild Gastrointestinal Verified 03/12/21 07:09 Antibiotics) Upset tetracycline Allergy Mild SWELLING Verified 03/12/21 07:09 TO EYES NARINDER Inhibitors AdvReac Intermediate cough Verified 03/12/21 07:09 Home Medications Medication Instructions Recorded Confirmed Type aspirin 81 mg tablet,delayed 81 mg PO PM 05/22/20 12/08/22 History release (Adult Aspirin Regimen) atorvastatin 80 mg tablet 80 mg PO PM 05/22/20 12/08/22 History azelastine 205.5 mcg (0.15 %) 1 spray intranasal BID PRN 05/22/20 12/08/22 History nasal spray Congestion hydrochlorothiazide 25 mg tablet 25 mg PO QAM 05/22/20 12/08/22 History lansoprazole 30 mg delayed 30 mg PO BID 05/22/20 12/08/22 History release,disintegrating tablet levalbuterol HCl 0.31 mg/3 mL 0.31 mg inhalation DAILY PRN 05/22/20 12/08/22 History solution for nebulization (Xopenex) Shortness Of Breath losartan 25 mg tablet 25 mg PO PM 05/22/20 12/08/22 History multivitamin (Daily Multi-Vitamin 1 tab PO PM 05/22/20 12/08/22 History tablet) meclizine 25 mg tablet 25 mg PO TID PRN Dizziness 06/05/22 12/08/22 History trospium 60 mg capsule,extended 60 mg PO PM 06/05/22 12/08/22 History release 24 hr apixaban 5 mg tablet (Eliquis) 5 mg PO BID #60 tabs 06/07/22 12/08/22 Rx famotidine 20 mg tablet 20 mg PO BID PRN breakthrough 06/07/22 12/08/22 Rx heart burn #60 tabs metoprolol succinate 25 mg 25 mg PO BID #60 tabs 06/07/22 12/08/22 Rx tablet,extended release 24 hr spironolactone 25 mg tablet 12.5 mg PO DAILY #30 tabs 06/07/22 12/08/22 Rx tramadol 50 mg tablet 50 - 100 mg PO Q8 PRN Pain, Severe 12/08/22 12/08/22 History Patient History Medical History Acquired lymphedema TO STOMACH> GETS THERAPY/MASSAGE TO MANAGE > WAS COMPLICATION AFTER RADIATION TREATMENT Asthma WELL CONTROLLED> JUST TRIGGERED BY ODORS; no inh Atrial fibrillation with rapid ventricular response Chronic bronchitis Deep vein thrombosis FEBRUARY 2011 > CAUSED BY PROLONGED SITTING DURING A PREVIOUS HOSPITALIZATION > TREATED WITH COUMADIN Diabetes mellitus, type II GERD (gastroesophageal reflux disease) diet controlled History of anesthesia reaction woke up during D&C, colonoscopy Hyperlipidemia Hypertension IBS (irritable bowel syndrome) Lipodermatosclerosis Morbid obesity On home O2 2 lpm qHS Osteoarthritis Overactive bladder Pulmonary embolism FEBRUARY 2011 > CAUSED BY PROLONGED SITTING DURING A PREVIOUS HOSPITALIZATION > TREATED WITH COUMADIN Uterine cancer APR 2014 > RADIATION > RESOLVED Vertigo Vitreous detachment of both eyes Surgical History History of bilateral tubal ligation History of cardiac cath NO STENTS > OVER 10 YRS AGO > DONE FOR CP History of cataract surgery RT History of cholecystectomy History of colonoscopy History of dilatation and curettage History of esophagogastroduodenoscopy (EGD) History of tooth extraction Hx of hernia repair VENTRAL WITH MESH Family History Other No family history of adverse response to anesthesia Social History Smoking Status: Never smoker Second Hand Exposure: No; Hx Alcohol Use: No Hx Substance Use: No Preferred Language: Belarusian Communication Ability: Effective Body Stylist Required: No Beliefs That Will Affect Care: None Current Living Situation: Alone Other Information That Helps Us Care for You: No Feels Safe at Home: Yes Safety Concerns: Feels Safe At This Time Assistive Devices: Glasses and Lift Chair Review of Systems Review of Systems: Review of Systems: See HPI for pertinent positives. All other 10 point review of systems are negative. Physical Exam Physical Exam: General: no acute distress and stated age Head: normocephalic, no masses, lesions, tenderness or abnormalities Eyes: conjunctiva are pink and non-injected, sclera clear Neck: supple, no adenopathy, no bruits, normal jugular venous pulse, no hepatojugular reflux Chest: normal shape and normal respiratory effort Lungs: clear to auscultation and percussion Cardiac Exam: - irregular rate & rhythm, no murmurs gallops or rubs - normal S1, normal S2 Pulses: 2(+) throughout Abdomen: abdomen soft, non-tender, no abnormal masses and no hepatosplenomegaly Musculoskeletal: no gait disturbance, no joint inflammation, no deforming a rthritis Extremities: no edema and no cyanosis Neuro: grossly normal exam Results & Data Vital Signs (Past 12 Hours) Vital Signs Temp Pulse Pulse Resp BP BP Pulse Ox 12/09/22 07:47 101 H 12/09/22 07:25 37 C 102 H 18 133/72 90 12/09/22 06:28 37.1 C 92 H 16 132/71 98 12/09/22 05:51 12/09/22 04:00 109 H 16 108/54 L 99 12/09/22 02:40 108 H 18 96/80 L 93 12/09/22 02:40 12/09/22 00:50 96 H 23 97 12/09/22 00:40 97 H 24 97 12/09/22 00:31 90 23 99 12/09/22 00:30 97 H 15 129/88 98 12/09/22 00:20 100 H 19 98 12/09/22 00:10 94 H 21 99 12/09/22 00:00 95 H 23 105/59 L 98 12/08/22 23:50 93 H 19 97 12/08/22 23:40 98 H 24 98 12/08/22 23:31 91 H 20 103/55 L 100 12/08/22 23:30 91 H 21 98 12/08/22 23:20 93 H 24 97 12/08/22 23:10 91 H 21 12/08/22 23:00 95 H 23 97 12/08/22 22:50 99 H 20 94 12/08/22 22:40 102 H 23 97 12/08/22 22:35 99 H 21 114/70 96 12/08/22 22:30 96 H 20 96/58 L 96 12/08/22 23:38 95 H 12/08/22 22:21 91 H 22 104/69 97 12/08/22 22:20 93 H 23 96 12/08/22 22:10 92 H 18 95 12/08/22 22:00 104 H 28 H 97 12/08/22 21:50 92 H 19 95 Pulse Ox O2 Del Method O2 Del Method O2 Flow Rate O2 Flow Rate 12/09/22 07:47 12/09/22 07:25 Room Air 12/09/22 06:28 Nasal Cannula 2 12/09/22 05:51 Nasal Cannula 2 12/09/22 04:00 Nasal Cannula 2 12/09/22 02:40 Nasal Cannula 2 12/09/22 02:40 93 Nasal Cannula 2 12/09/22 00:50 12/09/22 00:40 12/09/22 00:31 12/09/22 00:30 12/09/22 00:20 12/09/22 00:10 12/09/22 00:00 12/08/22 23:50 12/08/22 23:40 12/08/22 23:31 12/08/22 23:30 12/08/22 23:20 12/08/22 23:10 12/08/22 23:00 12/08/22 22:50 12/08/22 22:40 12/08/22 22:35 12/08/22 22:30 12/08/22 23:38 12/08/22 22:21 12/08/22 22:20 12/08/22 22:10 12/08/22 22:00 12/08/22 21:50 Laboratory Results Laboratory Results - last 24 hr 12/08/22 12/08/22 12/08/22 19:44 19:44 19:44 WBC 13.94 H RBC 4.26 Hgb 11.2 L POC Hgb Hct 35.6 L POC Hct MCV 83.6 MCH 26.3 MCHC 31.5 L RDW Std Deviation 48.1 H RDW Coeff of Rodolfo 15.9 H Plt Count 209 MPV 10.3 Immature Gran % (Auto) 0.6 Neut % (Auto) 87.0 Lymph % (Auto) 5.2 [place] % (Auto) 7.0 Eos % (Auto) 0.0 Baso % (Auto) 0.2 Neut # (Auto) 12.12 H Lymph # (Auto) 0.72 L [place] # (Auto) 0.98 H Eos # (Auto) 0.00 Baso # (Auto) 0.03 Immature Gran # (Auto) 0.09 PT 12.1 H INR 1.1 APTT PTT Ratio POC Sodium Sodium 134 L POC Potassium Potassium 3.4 L POC Chloride Chloride 96 L Carbon Dioxide 29 POC Total CO2 Anion Gap 9 POC Anion Gap POC BUN BUN 15 Creatinine 0.67 POC Creatinine Est Cr Clr Drug Dosing Not Reportable Est GFR ( Amer) 99.0 Est GFR (Non-Af Amer) 85.4 BUN/Creatinine Ratio 22.4 H Glucose 141 H POC Glucose POC Glucose (other) Lactate Calcium 8.8 POC Ioniz Calcium Stevenson Magnesium Total Bilirubin 1.4 H AST 14 ALT 13 Alkaline Phosphatase 114 H Total Creatine Kinase 114 Troponin I High Sens 40.6 H Total Protein 6.4 Albumin 3.5 Globulin 2.9 Albumin/Globulin Ratio 1.2 Procalcitonin TSH Urine Color Urine Appearance Urine pH Ur Specific [place] Urine Protein Urine Glucose (UA) Urine Ketones Urine Blood Urine Nitrite Urine Bilirubin Urine Urobilinogen Ur Leukocyte Esterase Urine WBC (Auto) Urine RBC (Auto) U Hyaline Cast (Auto) U Epithel Cells (Auto) Urine Bacteria (Auto) Hepatitis C Ab (EIA) Hep C Ab Signal/Cutoff SARS-CoV-2, RNA, NAAT 12/08/22 12/08/22 12/08/22 19:46 19:50 22:23 WBC RBC Hgb POC Hgb 12.2 Hct POC Hct 36 L MCV MCH MCHC RDW Std Deviation RDW Coeff of Rodolfo Plt Count MPV Immature Gran % (Auto) Neut % (Auto) Lymph % (Auto) [place] % (Auto) Eos % (Auto) Baso % (Auto) Neut # (Auto) Lymph # (Auto) [place] # (Auto) Eos # (Auto) Baso # (Auto) Immature Gran # (Auto) PT INR APTT PTT Ratio POC Sodium 134 L Sodium POC Potassium 3.4 Potassium POC Chloride 93 L Chloride Carbon Dioxide POC Total CO2 30 Anion Gap POC Anion Gap 15.0 L POC BUN 14 BUN Creatinine POC Creatinine 0.7 Est Cr Clr Drug Dosing Est GFR ( Amer) Est GFR (Non-Af Amer) BUN/Creatinine Ratio Glucose POC Glucose POC Glucose (other) 145 H Lactate Calcium POC Ioniz Calcium Stevenson 1.12 Magnesium Total Bilirubin AST ALT Alkaline Phosphatase Total Creatine Kinase Troponin I High Sens Total Protein Albumin Globulin Albumin/Globulin Ratio Procalcitonin TSH Urine Color Yellow Urine Appearance Cloudy A Urine pH 6.0 Ur Specific [place] 1.035 H Urine Protein 1+ H Urine Glucose (UA) Negative Urine Ketones Negative Urine Blood 2+ H Urine Nitrite Positive A Urine Bilirubin Negative Urine Urobilinogen Negative Ur Leukocyte Esterase 2+ H Urine WBC (Auto) >30 H Urine RBC (Auto) 10-30 H U Hyaline Cast (Auto) 0 U Epithel Cells (Auto) 5-10 H Urine Bacteria (Auto) 4+ H Hepatitis C Ab (EIA) Hep C Ab Signal/Cutoff SARS-CoV-2, RNA, NAAT NEGATIVE 12/08/22 12/08/22 12/08/22 23:02 23:02 23:02 WBC RBC Hgb POC Hgb Hct POC Hct MCV MCH MCHC RDW Std Deviation RDW Coeff of Rodolfo Plt Count MPV Immature Gran % (Auto) Neut % (Auto) Lymph % (Auto) [place] % (Auto) Eos % (Auto) Baso % (Auto) Neut # (Auto) Lymph # (Auto) [place] # (Auto) Eos # (Auto) Baso # (Auto) Immature Gran # (Auto) PT INR APTT PTT Ratio POC Sodium Sodium POC Potassium Potassium POC Chloride Chloride Carbon Dioxide POC Total CO2 Anion Gap POC Anion Gap POC BUN BUN Creatinine POC Creatinine Est Cr Clr Drug Dosing Est GFR ( Amer) Est GFR (Non-Af Amer) BUN/Creatinine Ratio Glucose POC Glucose POC Glucose (other) Lactate 2.0 Calcium POC Ioniz Calcium Stevenson Magnesium 2.1 Total Bilirubin AST ALT Alkaline Phosphatase Total Creatine Kinase Troponin I High Sens 123.1 H* D Total Protein Albumin Globulin Albumin/Globulin Ratio Procalcitonin 0.41 TSH Urine Color Urine Appearance Urine pH Ur Specific [place] Urine Protein Urine Glucose (UA) Urine Ketones Urine Blood Urine Nitrite Urine Bilirubin Urine Urobilinogen Ur Leukocyte Esterase Urine WBC (Auto) Urine RBC (Auto) U Hyaline Cast (Auto) U Epithel Cells (Auto) Urine Bacteria (Auto) Hepatitis C Ab (EIA) Hep C Ab Signal/Cutoff SARS-CoV-2, RNA, NAAT 12/08/22 12/09/22 12/09/22 23:02 03:14 07:20 WBC RBC Hgb POC Hgb Hct POC Hct MCV MCH MCHC RDW Std Deviation RDW Coeff of Rodolfo Plt Count MPV Immature Gran % (Auto) Neut % (Auto) Lymph % (Auto) [place] % (Auto) Eos % (Auto) Baso % (Auto) Neut # (Auto) Lymph # (Auto) [place] # (Auto) Eos # (Auto) Baso # (Auto) Immature Gran # (Auto) PT INR APTT PTT Ratio POC Sodium Sodium POC Potassium Potassium POC Chloride Chloride Carbon Dioxide POC Total CO2 Anion Gap POC Anion Gap POC BUN BUN Creatinine POC Creatinine Est Cr Clr Drug Dosing Est GFR ( Amer) Est GFR (Non-Af Amer) BUN/Creatinine Ratio Glucose POC Glucose 97 115 H POC Glucose (other) Lactate Calcium POC Ioniz Calcium Stevenson Magnesium Total Bilirubin AST ALT Alkaline Phosphatase Total Creatine Kinase Troponin I High Sens Total Protein Albumin Globulin Albumin/Globulin Ratio Procalcitonin TSH Urine Color Urine Appearance Urine pH Ur Specific [place] Urine Protein Urine Glucose (UA) Urine Ketones Urine Blood Urine Nitrite Urine Bilirubin Urine Urobilinogen Ur Leukocyte Esterase Urine WBC (Auto) Urine RBC (Auto) U Hyaline Cast (Auto) U Epithel Cells (Auto) Urine Bacteria (Auto) Hepatitis C Ab (EIA) Pending Hep C Ab Signal/Cutoff Pending SARS-CoV-2, RNA, NAAT 12/09/22 12/09/22 12/09/22 08:36 08:36 08:36 WBC 14.82 H RBC 4.04 L Hgb 10.8 L POC Hgb Hct 34.2 L POC Hct MCV 84.7 MCH 26.7 MCHC 31.6 L RDW Std Deviation 49.9 H RDW Coeff of Rodolfo 16.0 H Plt Count 173 MPV 10.1 Immature Gran % (Auto) 0.5 Neut % (Auto) 85.0 Lymph % (Auto) 7.2 [place] % (Auto) 7.0 Eos % (Auto) 0.1 Baso % (Auto) 0.2 Neut # (Auto) 12.61 H Lymph # (Auto) 1.06 L [place] # (Auto) 1.03 H Eos # (Auto) 0.01 Baso # (Auto) 0.03 Immature Gran # (Auto) 0.08 PT INR APTT 36.7 H PTT Ratio 1.3 POC Sodium Sodium 135 L POC Potassium Potassium 4.0 POC Chloride Chloride 99 Carbon Dioxide 29 POC Total CO2 Anion Gap 7 POC Anion Gap POC BUN BUN 13 Creatinine 0.65 POC Creatinine Est Cr Clr Drug Dosing 100.0 Est GFR ( Amer) 100.0 Est GFR (Non-Af Amer) 86.2 BUN/Creatinine Ratio 20.0 Glucose 143 H POC Glucose POC Glucose (other) Lactate Calcium 8.6 POC Ioniz Calcium Stevenson Magnesium Total Bilirubin AST ALT Alkaline Phosphatase Total Creatine Kinase Troponin I High Sens 137.6 H* Total Protein Albumin Globulin Albumin/Globulin Ratio Procalcitonin TSH Urine Color Urine Appearance Urine pH Ur Specific [place] Urine Protein Urine Glucose (UA) Urine Ketones Urine Blood Urine Nitrite Urine Bilirubin Urine Urobilinogen Ur Leukocyte Esterase Urine WBC (Auto) Urine RBC (Auto) U Hyaline Cast (Auto) U Epithel Cells (Auto) Urine Bacteria (Auto) Hepatitis C Ab (EIA) Hep C Ab Signal/Cutoff SARS-CoV-2, RNA, NAAT 12/09/22 08:36 WBC RBC Hgb POC Hgb Hct POC Hct MCV MCH MCHC RDW Std Deviation RDW Coeff of Rodolfo Plt Count MPV Immature Gran % (Auto) Neut % (Auto) Lymph % (Auto) [place] % (Auto) Eos % (Auto) Baso % (Auto) Neut # (Auto) Lymph # (Auto) [place] # (Auto) Eos # (Auto) Baso # (Auto) Immature Gran # (Auto) PT INR APTT PTT Ratio POC Sodium Sodium POC Potassium Potassium POC Chloride Chloride Carbon Dioxide POC Total CO2 Anion Gap POC Anion Gap POC BUN BUN Creatinine POC Creatinine Est Cr Clr Drug Dosing Est GFR ( Amer) Est GFR (Non-Af Amer) BUN/Creatinine Ratio Glucose POC Glucose POC Glucose (other) Lactate Calcium POC Ioniz Calcium Stevenson Magnesium Total Bilirubin AST ALT Alkaline Phosphatase Total Creatine Kinase Troponin I High Sens Total Protein Albumin Globulin Albumin/Globulin Ratio Procalcitonin TSH 0.642 Urine Color Urine Appearance Urine pH Ur Specific [place] Urine Protein Urine Glucose (UA) Urine Ketones Urine Blood Urine Nitrite Urine Bilirubin Urine Urobilinogen Ur Leukocyte Esterase Urine WBC (Auto) Urine RBC (Auto) U Hyaline Cast (Auto) U Epithel Cells (Auto) Urine Bacteria (Auto) Hepatitis C Ab (EIA) Hep C Ab Signal/Cutoff SARS-CoV-2, RNA, NAAT Medications Administered Current Inpatient Medications Acetaminophen (Acetaminophen 325 Mg Tab) 650 mg PO Q4H PRN PRN Reason: Pain or Fever Stop: 01/08/23 02:03 Last Admin: 12/09/22 02:33 Dose: 650 mg Aspirin (Aspirin 81 Mg Ectab) 81 mg PO PM ANA PAULA Stop: 01/08/23 20:59 Atorvastatin Calcium (Atorvastatin 40 Mg Tab) 80 mg PO PM ANA PAULA Stop: 01/08/23 20:59 Dextrose (Dextrose 50% 50 Ml Syringe) 25 - 50 ml IV UD PRN; Protocol PRN Reason: Hypoglycemia Protocol Stop: 01/08/23 02:03 Famotidine (Famotidine 20 Mg Tab) 20 mg PO BID PRN PRN Reason: breakthrough heart burn Stop: 01/08/23 02:03 Glucagon (Glucagon For Inj 1 Mg Vial) 1 mg SQ UD PRN; Protocol PRN Reason: Hypoglycemia Protocol Stop: 01/08/23 02:03 Glucose (Glucose 10 Tab/Tube) 4 - 8 tab PO UD PRN; Protocol PRN Reason: Hypoglycemia Treatment Stop: 01/08/23 02:03 Glucose (Glucose 40% Gel 15 Gm Tube) 15 - 30 gm PO UD PRN; Protocol PRN Reason: Hypoglycemia Protocol Stop: 01/08/23 02:03 Heparin Sodium/Dextrose (Heparin Sodium/Dextrose) 25,000 units in 500 mls @ 31 mls/hr IV .Q16H8M [facility]; Protocol Stop: 01/08/23 01:14 Last Admin: 12/09/22 02:20 Dose: 1,550 units/hr, 31 mls/hr Promethazine HCl 12.5 mg/ (Sodium Chloride) 50.5 mls @ 202 mls/hr IV Q6H PRN PRN Reason: Nausea And Vomiting Stop: 01/08/23 02:03 Cefepime HCl 2,000 mg/ Syringe 20 mls @ 5 mls/min IV Q8H [facility]; Protocol Stop: 12/19/22 07:59 Insulin Aspart (Insulin Aspart Per Unit Charge) 0 units SC ACHS [facility] Stop: 01/08/23 02:03 Last Admin: 12/09/22 03:59 Dose: Not Given Metoprolol Succinate (Metoprolol Succ 25mg Ext Rel Tab) 25 mg PO BID [facility] Stop: 01/08/23 07:04 Last Admin: 12/09/22 09:30 Dose: 25 mg Miscellaneous (Trospium 60 Mg - Order Awaiting Action) 1 each N/A QS [facility] Stop: 01/08/23 07:59 Last Admin: 12/09/22 09:30 Dose: Not Given Miscellaneous (Carbohydrates For Hypoglycemia ) 15 - 30 gm PO UD PRN PRN Reason: Hypoglycemia Protocol Stop: 01/08/23 02:03 Morphine Sulfate (Morphine Sulfate 4 Mg/Ml 1 Ml Carp\\Vial) 4 mg IV Q4H PRN PRN Reason: Pain Stop: 12/23/22 02:03 Multivitamins (Multivitamin Tab) 1 tab PO PM [facility] Stop: 01/08/23 20:59 Pantoprazole Sodium (Pantoprazole 40 Mg Tab) 40 mg PO BID [facility] Stop: 01/08/23 08:59 Tramadol HCl (Tramadol Hcl 50 Mg Tablet) 50 - 100 mg PO Q8 PRN PRN Reason: Pain, Severe Stop: 01/08/23 02:03 (1) Fall Encounter type: initial encounter Qualified Code(s): W19.XXXA - Unspecified fall, initial encounter (4) Chest pain Chest pain type: unspecified Qualified Code(s): R07.9 - Chest pain, unspecified
[2022-12-09] MEDS: CEFEPIME 2,000 MG in SYRINGE 0 ML IV SCH ×3 (10:13→23:55)
[2022-12-09] MEDS: PANTOprazole 40 MG TAB PO SCH ×2 (10:14→20:15)
[2022-12-09] MEDS: traMADol HCL 50 MG TABLET PO PRN (10:15)
[2022-12-09] MEDS: MoRPHine SULFATE 4 MG/ML 1 ML CARP\\VIAL IV PRN ×2 (11:59→23:56)
--- NOTE | 2022-12-09 13:21 | Electrocardiogram Report ---
Test Reason : Blood Pressure : / mmHG Vent. Rate : 111 BPM Atrial Rate : 113 BPM P-R Int : 000 ms QRS Dur : 082 ms QT Int : 332 ms P-R-T Axes : 000 015 037 degrees QTc Int : 451 ms Poor data quality, interpretation may be adversely affected Atrial fibrillation with rapid ventricular response Low voltage QRS Septal infarct , age undetermined Abnormal ECG When compared with ECG of 06-JUN-2022 05:32, QRS duration has decreased Septal infarct is now Present Minimal criteria for Inferior infarct are no longer Present Nonspecific T wave abnormality now evident in Lateral leads Confirmed by Isaac Murillo [id number]) on 12/09/2022 1:21:13 PM Referred By: REFERRED SELF Confirmed By:Isaac Murillo
[2022-12-09 13:42] LABS: A calco-baum cmplx NotReported Not Detected (NotDetected); Bact fragilis Not Reported Not Detected (NotDetected); C auris Not Reported Not Detected (NotDetected); CTX-M Resistant Gene Not Detected (NotDetected); Calbicans Not Reported Not Detected (NotDetected); Candida glabrata Not Reported Not Detected (NotDetected); Candida krusei Not Reported Not Detected (NotDetected); Cneoformans/gatti Not Reported Not Detected (NotDetected); Cparapsilosis Not Reported Not Detected (NotDetected); Ctropicalis Not Reported Not Detected (NotDetected); E cloacae compx Not Reported Not Detected (NotDetected); Efaecalis Not Reported Not Detected (NotDetected); Efaecium Not Reported Not Detected (NotDetected); Enterobacterales DETECTED (NotDetected); Escherichia coli Not Reported DETECTED (NotDetected); H influenzae Not Reported Not Detected (NotDetected); IMP Resistant Gene Not Detected (NotDetected); K aerogenes Not Reported Not Detected (NotDetected); KPC Resistant Gene Not Detected (NotDetected); Koxytoca Not Reported Not Detected (NotDetected); Kpneumoniae grp Not Reported Not Detected (NotDetected); Lmonocyt Not Reported Not Detected (NotDetected); N meningitidis Not Reported Not Detected (NotDetected); NDM Resistant Gene Not Detected (NotDetected); OXA 48 Like Resistant Gene Not Detected (NotDetected); P aeruginosa Not Reported Not Detected (NotDetected); Proteus spp Not Reported Not Detected (NotDetected); Salmonella spp Not Reported Not Detected (NotDetected); Smarcescens Not Reported Not Detected (NotDetected); Staph lugdunensis Not Reported Not Detected (NotDetected); Staph spp. Not Reported Not Detected (NotDetected); Staphaureus Not Reported Not Detected (NotDetected); Staphepi Not Reported Not Detected (NotDetected); Stenmaltophilia Not Reported Not Detected (NotDetected); Strep agal(GrpB) Not Reported Not Detected (NotDetected); Strep pneum Not Reported Not Detected (NotDetected); Strep pyog (GrpA) Not Reported Not Detected (NotDetected); Strep spp Not Reported Not Detected (NotDetected); VIM Resistant Gene Not Detected (NotDetected); mcr-1 Colistin Resistant Gene Not Detected (NotDetected)
[2022-12-09 14:04] LABS: Enterobacterales Not Reported DETECTED (NotDetected)
--- NOTE | 2022-12-09 14:53 | Hospitalist Progress Note ---
Date of Service December 09, 2022 Assessment & Plan (1) Atrial fibrillation with rapid ventricular response: Plan: A-fib RVR In setting of sepsis Mild troponin elevation/Type II NE--likely demand ischemia secondary to sepsis, A-fib RVR --ECHO Jun 05: Left ventricle is normal in size. Mild concentric LVH. Left ventricular wall motion is normal. EF 55 to 60%. Left atrium is mildly dilated. Aortic valve sclerosis moderate, without significant aortic valvular stenosis. Significant mitral regurgitation is absent. --Chest CTA:No significant acute traumatic injury identified involving the chest/thorax. No significant alteration from the previous examination. -- Metoprolol dose increased to 37.5 mg twice a day Appreciate cardiology input Monitor and replace electrolytes as needed Hold Eliquis for now On IV heparin for anticoagulation Complicated urinary tract infection Sepsis Gram-negative bacilli bacteremia H/O Recurrent UTI --CT ABD:No significant acute traumatic injury to the abdomen or pelvis. -- Blood culture: Gram-negative bacilli Urine culture pending Received IV fluids Continue IV cefepime We will repeat blood cultures tomorrow Will hold Trospium to help with bladder emptying Bladder scan to monitor for retention Appreciate urology input Right thyroid nodule --CT Neck:Asymmetric enlargement of the right thyroid lobe with suspected solid nodule and internal calcifications. Recommend nonemergent thyroid ultrasound, if not previously evaluated. Negative outpatient biopsy as per records Normal TSH Follow-up as outpatient Bilateral osteoarthritis of knees Imaging studies showed no acute fractures Appreciate orthopedics input PT OT Fall precautions To consider for injections Hypertension Continue metoprolol Hold losartan, HCTZ for now given relatively low blood pressure Monitor Hypokalemia Replete electrolytes as needed Hyperlipidemia on statin H/O PE/DVT Hold Eliquis for now Continue IV heparin Bronchial Asthma No signs of exacerbation Monitor DM II Diet-controlled HbA1C 6.3 May 2022 Continue insulin Monitor BGs Endometrial cancer S/P Radiation In remission Chronic lymphedema Resume home diuretics as able Functional disability Secondary to comorbidities Fall precautions PT OT DVT Px: IV heparin for now Code Status Full code Admission and Anticipated Discharge Date Admission Date: December 09, 2022 Subjective Patient is seen and examined at bedside States having back, bilateral hip pain Also reports dysuria Denies any chest pain, dyspnea, dizziness, nausea, vomiting, abdominal pain, hematuria No other complaints Review of Systems Review of Systems: All systems reviewed & are unremarkable except as noted in Subjective Physical Exam Physical Exam: Physical Exam: Vitals signs as noted above General Appearance:Morbidly Obese, no apparent distress Head: normocephalic, Atraumatic Eyes: normal inspection, EOMI Neck: supple, Trachea midline Respiratory/Chest: Normal breath sounds, CTA, No accessory muscle use Cardiovascular: Irregularly Irregular, S2, No murmur Abdomen/GI:Soft, Non tender, Bowel sounds present Extremities/Musculoskeletal:normal inspection, 2+ B/L LE edema Neurologic/Psych:AAOX3, grossly no focal neurological deficits Skin: normal color, warm Results & Data Results & Data Vital Signs (Past 12 Hours) Vital Signs Temp Pulse Pulse Resp BP Pulse Ox O2 Del Method 12/09/22 11:41 37.7 C H 99 H 18 115/69 90 Room Air 12/09/22 10:52 Room Air 12/09/22 07:47 101 H 12/09/22 07:25 37 C 102 H 18 133/72 90 Room Air 12/09/22 06:28 37.1 C 92 H 16 132/71 98 Nasal Cannula 12/09/22 05:51 Nasal Cannula 12/09/22 04:00 109 H 16 108/54 L 99 Nasal Cannula O2 Flow Rate 12/09/22 11:41 12/09/22 10:52 12/09/22 07:47 12/09/22 07:25 12/09/22 06:28 2 12/09/22 05:51 2 12/09/22 04:00 2 Laboratory Results Short CBC 12/08/22 12/09/22 Range/Units 19:44 08:36 WBC 13.94 H 14.82 H (4.8-10.8) K/ul Hgb 11.2 L 10.8 L (12.0-16.0) g/dl Hct 35.6 L 34.2 L (37.0-47.0) % Plt Count 209 173 (130-400) K/uL BMP 12/08/22 12/09/22 19:44 08:36 Sodium 134 L 135 L Potassium 3.4 L 4.0 Chloride 96 L 99 Carbon Dioxide 29 29 BUN 15 13 Creatinine 0.67 0.65 Glucose 141 H 143 H Calcium 8.8 8.6 Cardiac Enzymes 12/08/22 Range/Units 19:44 Total Creatine Kinase 114 (26-192) U/L Liver Function 12/08/22 Range/Units 19:44 Total Bilirubin 1.4 H (0.2-1.0) mg/dl AST 14 (13-39) U/L ALT 13 (7-52) U/L Alkaline Phosphatase 114 H (34-104) U/L Albumin 3.5 (3.4-5.0) gm/dl Urine 12/08/22 Range/Units 22:23 Urine Color Yellow Urine Appearance Cloudy A (Clear) Urine pH 6.0 (4.5-7.5) Ur Specific [place] 1.035 H (1.000-1.030) Urine Protein 1+ H (Negative) Urine Glucose (UA) Negative (Negative)
[2022-12-09 17:03] LABS: Partial Thromboplastin Ratio 1.6; Partial Thromboplastin Time 43.6 Seconds (21.0-31.0)
[2022-12-09] MEDS: ATORVASTATIN 40 MG TAB PO SCH (20:13)
[2022-12-09] MEDS: ASPIRIN 81 MG ECTAB PO SCH (20:13)
[2022-12-09] MEDS: METOPROLOL SUCC 25MG EXT REL TAB PO SCH (20:14)
[2022-12-09] MEDS: MULTIVITAMIN TAB PO SCH (20:15)
[2022-12-09] MEDS: NYSTATIN POWDER 15GM BTL EXT SCH (23:55)
[2022-12-10 01:06] LABS: Partial Thromboplastin Ratio 1.4; Partial Thromboplastin Time 38.4 Seconds (21.0-31.0)
[2022-12-10 08:49] LABS: Hematocrit (blood only) 32.6 % (37.0-47.0); Hemoglobin 10.2 g/dl (12.0-16.0); Mean Corpuscular Hemoglobin 26.5 pg (25.0-34.0); Mean Corpuscular Hgb Conc 31.3 g/dL (32.0-36.0); Mean Corpuscular Volume 84.7 fL (80.0-100.0); Mean Platelet Volume 10.6 fL (9.4-12.4); Platelet Count 168 K/uL (130-400); RDW Coefficient of Variation 15.9 % (11.5-14.5); RDW Standard Deviation 48.8 fL (36.4-46.3); Red Blood Count 3.85 M/uL (4.20-5.40); White Blood Count 10.21 K/ul (4.8-10.8)
[2022-12-10] MEDS: METOPROLOL SUCC 25MG EXT REL TAB PO SCH (09:02)
[2022-12-10] MEDS: NYSTATIN POWDER 15GM BTL EXT SCH ×2 (09:02→20:22)
[2022-12-10] MEDS: CEFEPIME 2,000 MG in SYRINGE 0 ML IV SCH ×2 (09:02→16:40)
[2022-12-10] MEDS: HEPARIN SODIUM/DEXTROSE 25,000 UNITS/500 ML BAG IV SCH ×2 (09:03→22:16)
[2022-12-10] MEDS: PANTOprazole 40 MG TAB PO SCH ×2 (09:03→20:19)
[2022-12-10] MEDS: INSULIN ASPART PER UNIT CHARGE SC SCH ×4 (09:04→20:24)
[2022-12-10 09:18] LABS: Partial Thromboplastin Ratio 1.4; Partial Thromboplastin Time 38.6 Seconds (21.0-31.0)
[2022-12-10 10:31] LABS: BUN Creatinine Ratio 24.6 (10-20); Calcium 8.5 mg/dl (8.6-10.3); Est GFR (African American) 102.1 ml/min; Est GFR (Non-African American) 88.1 ml/min; Potassium 3.8 mmol/L (3.5-5.1)
--- NOTE | 2022-12-10 11:21 | Cardiology Progress Note ---
Date of Service December 10, 2022 Assessment & Plan (1) Fall: (2) Atrial fibrillation with rapid ventricular response: (3) Acute UTI: (4) Chest pain: (5) Elevated troponin: Plan Atrial fibrillation. Continue rate control. Increase metoprolol succinate dosing further, to 50 mg twice a day. Continue Eliquis anticoagulation. Noncardiac chest pain. General measures advised. Morbid obesity, hypertension, diastolic dysfunction, chronic stasis edema. Controlled. As prescribed. Admission and Anticipated Discharge Date Admission Date: December 09, 2022 Supervising Physician Co-Signing Physician Notes I have reviewed the advanced practitioner documentation and agree. I saw and evaluated the patient on date of service referenced in note and have performed the following medically appropriate history and/or exam: Medication changes as above. No further cardiac testing necessary at this time. General: Awake, alert and oriented x 3. No acute distress. HEENT: Normocephalic, atraumatic. Pupils equal, round and reactive to light and accommodation. Extraocular muscles are intact. Anicteric sclera. Moist mucous membranes. Neck: No JVD. No bruit. Cardiovascular: irregularly irregular, unable to appreciate murmur, rub or gallop. Pulmonary: Clear to auscultation bilaterally. No rales, rhonchi, or wheezing. Abdomen: Bowel sounds x 4, soft. No rebound, guarding or tenderness. No organomegaly. Extremities: No clubbing, cyanosis or edema. +2 pedal pulses bilaterally. Skin: Warm and dry. Subjective Patient seen and examined. Chart, medications, and telemetry reviewed. Overall, feeling OK. Did have some right-sided chest discomfort earlier this morning, on the side she fell. No overt palpitations. 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 EKG this morning reveals atrial fibrillation with a ventricular rate of 92 bpm, low voltage QRS. Cannot rule out an old anteroseptal infarct. When compared to prior available tracings, there is no significant change. Physical Exam Physical Exam: General: A&Ox3. NAD. HENT: Normocephalic. Atraumatic. Eyes: PER. Conjunctiva pink, sclera clear. Neck: Veins not appreciated. Heart: Distant heart sounds. Irregular. Lungs: Clear to auscultation. Abdomen: +BS. Soft. Nontender. No masses or organomegaly. Extremities: No clubbing. No cyanosis. Mild edema. Limited neurological examination is without focal deficits. Results & Data Vital Signs (Past 12 Hours) Vital Signs Temp Pulse Resp BP Pulse Ox O2 Del Method O2 Del Method 12/10/22 11:08 37.2 C 90 18 126/61 97 Room Air 12/10/22 07:49 37.1 C 91 H 19 105/66 96 Nasal Cannula 12/10/22 03:53 37.2 C 95 H 18 119/72 95 Room Air 12/10/22 02:04 Room Air O2 Flow Rate 12/10/22 11:08 12/10/22 07:49 1 12/10/22 03:53 12/10/22 02:04 Laboratory Results Coagulation 12/09/22 12/10/22 12/10/22 Range/Units 16:24 00:22 07:58 APTT 43.6 H 38.4 H 38.6 H (21.0-31.0) Seconds CBC 12/10/22 Range/Units 07:58 WBC 10.21 (4.8-10.8) K/ul RBC 3.85 L (4.20-5.40) M/uL Hgb 10.2 L (12.0-16.0) g/dl Hct 32.6 L (37.0-47.0) % Plt Count 168 (130-400) K/uL Comprehensive Metabolic Panel 12/10/22 Range/Units 07:58 Sodium 134 L (136-145) mmol/L Potassium 3.8 (3.5-5.1) mmol/L Chloride 96 L (98-107) mmol/L Carbon Dioxide 31 (21-32) mmol/L BUN 15 (6-23) mg/dl Creatinine 0.61 (0.6-1.2) mg/dl Glucose 121 H (70-99(Fasting)) mg/dl Calcium 8.5 L (8.6-10.3) mg/dl Intake and Output 12/09/22 12/10/22 12/10/22 22:59 06:59 14:59 Intake Total 255.1 / 960.533 260.533 / 960.533 326.234 / 326.234 Output Total 300 / 525 Balance 255.1 / 435.533 -39.467 / 435.533 326.234 / 326.234 Intake: IV 255.1 / 760.533 260.533 / 760.533 326.234 / 326.234 Heparin Sodium/Dextrose 25,000 255.1 / 760.533 260.533 / 760.533 326.234 / 326.234 units In 500 ml @ 1,900 UNITS/ HR 38 mls/hr IV .[id number] [facility] Rx #:[id number] Output: Urine Amount (Catheter) 300 / 525 External 300 / 525 Other: Weight 133.9 kg Weight Measurement Method Built in [facility] (1) Fall Encounter type: initial encounter Qualified Code(s): W19.XXXA - Unspecified fall, initial encounter (4) Chest pain Chest pain type: unspecified Qualified Code(s): R07.9 - Chest pain, unspecified
[2022-12-10] MEDS: ACETAMINOPHEN 325 MG TAB PO PRN (12:50)
--- NOTE | 2022-12-10 13:12 | Urology Progress Note ---
Date of Service December 10, 2022 Assessment & Plan (1) Acute UTI: (2) Calculus of left kidney: Plan: She is afebrile and hemodynamically stable. Labs reviewedcreatinine 0.61, leukocytosis downtrending (10.21). Urine culture and blood cultures from 12/08 are growing gram negative bacilli. Repeat blood cultures obtained today are pending. Continue broad-spectrum antibiotics and narrow per sensitivity data when available. CT A/P from admission independently reviewed and notable for mild hydronephrosis and proximal left hydroureter with multiple calcifications noted in the left collecting system, measuring up to 2.1 cm in the renal pelvis. Reviewed findings with patient and son. Discussed concerns with possible obstructing stones and urinary tract infection. We discussed that stones may also be a nidus of infection given difficulty clearing past infections. Recommend cystoscopy and left ureteral stent placement for source control. Patient and son are agreeable to surgical intervention. We discussed that stones would need to be treated after acute infection has been adequately treated. Ureteral stents were discussed in detail. She verbalizes good understanding. - Proceed with cystoscopy, left retrograde pyelogram, and left ureteral stent placement tomorrow. - Order placed for NPO at midnight. - Continue supportive care, antibiotics, and medical management per hospital team. - Okay to continue heparin in the setting of stent placement. - Continue to hold Trospium and monitor bladder scans prn to ensure she is emptying. - We discussed that further discussion/management of OAB can be discussed outpatient. - will follow. Admission and Anticipated Discharge Date Admission Date: December 09, 2022 Supervising Physician Co-Signing Physician Notes Discussed patient with BRETT. Agree with plan. Given obstructing stones and positive cultures, recommend ureteral stent placement. Stent placement may ne challenging to due to stone burden and if unable to be placed, patient would require transfer to a center where they could place a nephrostomy tube. Unable to stent patient today as she was not NPO, but given that she is currently stable, reasonable to proceed to OR tomorrow. Subjective Patient seen and examined at bedside this afternoon. Son present. She reports she is slowly improving and feeling better than yesterday. She has been back and bilateral hip pain. No abdominal or bladder discomfort. She has some dy suria, no hematuria. External female catheter in place. Per chart review, documented bladder scan of 15 mL overnight. No nausea or vomiting. No fever or chills. She reports recurrent UTIs for the past several years. She reports she will typically improve with antibiotic course, then symptoms will recur within a few weeks. No prior urology evaluations. She also has overactive bladder symptoms including urinary frequency, urgency and urge incontinence. She has tried multiple medications in the past. Currently on Trospium, which is on hold now. She reports functional difficulties with poor mobility and lymphedema. Also notes difficulty with hygiene due to lymphedema and pannus. She has history of radiation for uterine cancer. Denies prior history of kidney stones. Her son has stones. Review of Systems Constitutional: as per Subjective / HPI Gastrointestinal: as per Subjective / HPI Genitourinary: as per Subjective / HPI Physical Exam Constitutional: + morbidly obese and comfortable; no acute distress Respiratory: normal respiratory effort; no respiratory distress and no labored breathing Cardiovascular: mild edema Musculoskeletal: Head/Neck/Chest: normocephalic and head atraumatic Neurologic: moves all extremities and awake Psychiatric: Orientation: alert and oriented x 3 Genitourinary: External catheter in place draining concentrated yellow urine. Results & Data Vital Signs (Past 12 Hours) Vital Signs Temp Pulse Resp BP Pulse Ox O2 Del Method O2 Del Method 12/10/22 11:08 37.2 C 90 18 126/61 97 Room Air 12/10/22 07:49 37.1 C 91 H 19 105/66 96 Nasal Cannula 12/10/22 03:53 37.2 C 95 H 18 119/72 95 Room Air 12/10/22 02:04 Room Air O2 Flow Rate 12/10/22 11:08 12/10/22 07:49 1 12/10/22 03:53 12/10/22 02:04 PG Care Time/CCT Total # of Minutes Spent Total Time Spent with Patient: Total time spent is greater than 50% in coordination of care (as documented) at patient's floor/unit and/or counseling patient: Coding Level of Care Code 20431 SUB INP/OBS CARE 2/35MIN Diagnoses Acute UTI N39.0 Calculus of left kidney N20.0 Time Spent (min) 40
--- NOTE | 2022-12-10 16:26 | Hospitalist Progress Note ---
Date of Service December 10, 2022 Assessment & Plan (1) Atrial fibrillation with rapid ventricular response: Plan: A-fib RVR In setting of sepsis Mild troponin elevation/Type II MD--likely demand ischemia secondary to sepsis, A-fib RVR --ECHO Jun 05: Left ventricle is normal in size. Mild concentric LVH. Left ventricular wall motion is normal. EF 55 to 60%. Left atrium is mildly dilated. Aortic valve sclerosis moderate, without significant aortic valvular stenosis. Significant mitral regurgitation is absent. --Chest CTA:No significant acute traumatic injury identified involving the chest/thorax. No significant alteration from the previous examination. -- Metoprolol dose increased to 37.5 mg twice a day Appreciate cardiology input Monitor and replace electrolytes as needed Hold Eliquis for now On IV heparin for anticoagulation given plan for procedure tomorrow Metoprolol dose increased to 50 mg twice a day Complicated urinary tract infection Sepsis Gram-negative bacilli bacteremia H/O Recurrent UTI Mild left hydronephrosis --CT ABD:No significant acute traumatic injury to the abdomen or pelvis. -- Blood culture: Gram-negative bacilli Urine culture gram-negative bacilli Received IV fluids Continue IV cefepime Will hold Trospium to help with bladder emptying Bladder scan to monitor for retention Appreciate urology input Plan for ureteral stent placement tomorrow N.p.o. after midnight Follow-up repeat blood cultures Right thyroid nodule --CT Neck:Asymmetric enlargement of the right thyroid lobe with suspected solid nodule and internal calcifications. Recommend nonemergent thyroid ultrasound, if not previously evaluated. Negative outpatient biopsy as per records Normal TSH Follow-up as outpatient Bilateral osteoarthritis of knees Imaging studies showed no acute fractures Appreciate orthopedics input PT OT Fall precautions To consider for injections Hypertension Continue metoprolol Hold losartan, HCTZ for now given relatively low blood pressure Monitor Hypokalemia Replete electrolytes as needed Hyperlipidemia on statin H/O PE/DVT Hold Eliquis for now Continue IV heparin Bronchial Asthma No signs of exacerbation Monitor DM II Diet-controlled HbA1C 6.3 May 2022 Continue insulin Monitor BGs Endometrial cancer S/P Radiation In remission Chronic lymphedema Resume home diuretics as able Functional disability Secondary to comorbidities Fall precautions PT OT DVT Px: IV heparin for now Code Status Full code Admission and Anticipated Discharge Date Admission Date: December 09, 2022 Subjective Patient is seen and examined at bedside Back, bilateral hip pain better today Had right-sided transient chest discomfort this morning Dysuria improving Discussed with urology today Denies any dyspnea, dizziness, nausea, vomiting, abdominal pain, hematuria Review of Systems Review of Systems: All systems reviewed & are unremarkable except as noted in Subjective Physical Exam Physical Exam: Physical Exam: Vitals signs as noted above General Appearance:Morbidly Obese, no apparent distress Head: normocephalic, Atraumatic Eyes: normal inspection, EOMI Neck: supple, Trachea midline Respiratory/Chest: Normal breath sounds, CTA, No accessory muscle use Cardiovascular: Irregularly Irregular, S2, No murmur Abdomen/GI:Soft, Non tender, Bowel sounds present Extremities/Musculoskeletal:normal inspection, 2+ B/L LE edema Neurologic/Psych:AAOX3, grossly no focal neurological deficits Skin: normal color, warm Results & Data Results & Data Vital Signs (Past 12 Hours) Vital Signs Temp Pulse Resp BP Pulse Ox O2 Del Method O2 Flow Rate 12/10/22 11:08 37.2 C 90 18 126/61 97 Room Air 12/10/22 07:49 37.1 C 91 H 19 105/66 96 Nasal Cannula 1 Laboratory Results Short CBC 12/10/22 Range/Units 07:58 WBC 10.21 (4.8-10.8) K/ul Hgb 10.2 L (12.0-16.0) g/dl Hct 32.6 L (37.0-47.0) % Plt Count 168 (130-400) K/uL BMP 12/10/22 07:58 Sodium 134 L Potassium 3.8 Chloride 96 L Carbon Dioxide 31 BUN 15 Creatinine 0.61 Glucose 121 H Calcium 8.5 L
[2022-12-10 17:36] LABS: Partial Thromboplastin Ratio 1.4; Partial Thromboplastin Time 39.6 Seconds (21.0-31.0)
[2022-12-10] MEDS: ATORVASTATIN 40 MG TAB PO SCH (20:17)
[2022-12-10] MEDS: ASPIRIN 81 MG ECTAB PO SCH (20:18)
[2022-12-10] MEDS: MULTIVITAMIN TAB PO SCH (20:19)
[2022-12-10] MEDS: METOPROLOL SUCC 50MG EXT REL TAB PO SCH (20:20)
[2022-12-11 01:28] LABS: Partial Thromboplastin Ratio 1.5; Partial Thromboplastin Time 41.9 Seconds (21.0-31.0)
[2022-12-11] MEDS: CEFEPIME 2,000 MG in SYRINGE 0 ML IV SCH ×3 (02:04→17:24)
[2022-12-11] MEDS: ACETAMINOPHEN 325 MG TAB PO PRN (04:26)
--- NOTE | 2022-12-11 05:42 | Electrocardiogram Report ---
Test Reason : Blood Pressure : / mmHG Vent. Rate : 092 BPM Atrial Rate : 097 BPM P-R Int : 000 ms QRS Dur : 080 ms QT Int : 346 ms P-R-T Axes : 000 039 027 degrees QTc Int : 427 ms Poor data quality, interpretation may be adversely affected Atrial fibrillation Low voltage QRS Poor R wave progression, consider anterior MN vs. lead placement vs. LVH Abnormal ECG When compared with ECG of 08-DEC-2022 19:42, Questionable change in initial forces of Anterior leads Confirmed by Dandre Cuadra ([id number]) on 12/11/2022 5:42:23 AM Referred By: REFERRED SELF Confirmed By:Dandre Cuadra
[2022-12-11] MEDS: INSULIN ASPART PER UNIT CHARGE SC SCH ×4 (08:15→22:11)
[2022-12-11] MEDS: NYSTATIN POWDER 15GM BTL EXT SCH ×2 (08:16→22:13)
[2022-12-11 08:51] LABS: Hematocrit (blood only) 32.4 % (37.0-47.0); Hemoglobin 10.3 g/dl (12.0-16.0); Mean Corpuscular Hemoglobin 26.5 pg (25.0-34.0); Mean Corpuscular Hgb Conc 31.8 g/dL (32.0-36.0); Mean Corpuscular Volume 83.5 fL (80.0-100.0); Mean Platelet Volume 10.5 fL (9.4-12.4); Platelet Count 171 K/uL (130-400); RDW Coefficient of Variation 15.9 % (11.5-14.5); RDW Standard Deviation 48.5 fL (36.4-46.3); Red Blood Count 3.88 M/uL (4.20-5.40)
[2022-12-11 09:02] LABS: BUN Creatinine Ratio 22.8 (10-20); Calcium 8.6 mg/dl (8.6-10.3); Est GFR (African American) 104.4 ml/min; Potassium 3.7 mmol/L (3.5-5.1)
[2022-12-11] MEDS: PANTOprazole 40 MG TAB PO SCH ×2 (09:14→22:14)
[2022-12-11] MEDS: METOPROLOL SUCC 50MG EXT REL TAB PO SCH ×2 (09:14→22:14)
--- NOTE | 2022-12-11 09:39 | Hospitalist Progress Note ---
Date of Service December 11, 2022 Assessment & Plan (1) Sepsis: (2) Complicated UTI (urinary tract infection): (3) Calculus of left kidney: (4) Atrial fibrillation with rapid ventricular response: Plan: Complicated urinary tract infection Sepsis Gram-negative bacilli bacteremia H/O Recurrent UTI Mild left hydronephrosis --CT ABD:No significant acute traumatic injury to the abdomen or pelvis. -- Blood culture: Gram-negative bacilli Urine culture gram-negative bacilli Received IV fluids Continue IV cefepime-->Rocephin-->will plan to transition t oPO abx 48 hours post last temp rise. Will hold Trospium to help with bladder emptying Bladder scan to monitor for retention Appreciate urology input s/p ureteral stent placement 12/11 A-fib RVR In setting of sepsis Mild troponin elevation/Type II MN--likely demand ischemia secondary to sepsis, A-fib RVR --ECHO Sept 23: Left ventricle is normal in size. Mild concentric LVH. Left ventricular wall motion is normal. EF 55 to 60%. Left atrium is mildly dilate d. Aortic valve sclerosis moderate, without significant aortic valvular stenosis. Significant mitral regurgitation is absent. --Chest CTA:No significant acute traumatic injury identified involving the chest/thorax. No significant alteration from the previous examination. -- Metoprolol dose increased to 37.5 mg twice a day Monitor and replace electrolytes as needed Hold Eliquis for now with heparin given periprocedurally Metoprolol dose increased to 50 mg twice a day Placing back on apixaban in am. Right thyroid nodule --CT Neck:Asymmetric enlargement of the right thyroid lobe with suspected solid nodule and internal calcifications. Recommend nonemergent thyroid ultrasound, if not previously evaluated. Negative outpatient biopsy as per records Normal TSH Follow-up as outpatient Bilateral osteoarthritis of knees Imaging studies showed no acute fractures Appreciate orthopedics input PT OT Fall precautions scheduled tylenol ordered Hypertension chronic, at goal. Continue metoprolol Hold losartan, HCTZ for now given relatively low blood pressure Monitor Hyperlipidemia chronic, stable. on statin H/O PE/DVT restart apixiban tomorrow Bronchial Asthma No signs of exacerbation Monitor DM II Diet-controlled HbA1C 6.3 May 2022 Continue insulin Monitor BGs Endometrial cancer S/P Radiation In remission Morbid Obesity Chronic lymphedema Resume home diuretics as able Functional disability Secondary to comorbidities Fall precautions PT OT DVT Px: IV heparin for now Code Status Full code Grisel Holland, DO [facility] Hospitalist (5) Elevated troponin: (6) Fall: (7) Acute shoulder pain: (8) Hip pain: (9) Morbid obesity: (10) Overactive bladder: (11) Asthma: (12) Diabetes mellitus, type II: Admission and Anticipated Discharge Date Admission Date: December 09, 2022 Subjective 77 yo morbidly obese female presents with sepsis 2/2 ureteral obstructiono 2/2 ureteral stone. doing well post procedure but now with constipation requesting a stool regimen Tolerating PO afebrile for 24 hours. Review of Systems Review of Systems: All systems are reviewed and negative except as indicated on HPI above. Physical Exam Physical Exam: CONSTITUTIONAL: morbid obesity, vitals as above, generally well-appearing, NAD EYES: normal conjunctivae, no scleral icterus ENT: external ear and nose normal, MMM NECK: trachea midline RESPIRATORY: clear to auscultation bilaterally, no crackles, rales or wheezes, normal respiratory effort CARDIOVASCULAR: regular rate and rhythm, S1 and 2 heard without murmurs, gallops or rubs, no JVD, no peripheral edema CHEST: inspection of chest was normal GASTROINTESTINAL: soft, nontender, ND, no guarding MUSCULOSKELETAL: strength 5/5 throughout, head is normocephalic and atraumatic SKIN: warm and dry NEUROLOGIC: CN 2-12 grossly intact, no sensory deficit, normal cognition, normal speech, no tremor PSYCHIATRIC: alert cooperative and oriented to person, place and time. Euthymic mood, makes good eye contact, language grossly intact, recent and remote memory grossly intact. Results & Data Results & Data Vital Signs (Past 12 Hours) Vital Signs Temp Pulse Pulse Resp BP Pulse Ox O2 Del Method 12/11/22 08:17 36.8 C 86 19 120/71 91 Room Air 12/11/22 02:00 12/11/22 04:56 36.8 C 86 21 117/55 L 98 Room Air 12/11/22 01:23 92 H 12/11/22 01:15 Room Air 12/10/22 23:25 37.2 C 91 H 16 114/61 92 Room Air O2 Del Method 12/11/22 08:17 12/11/22 02:00 Room Air 12/11/22 04:56 12/11/22 01:23 12/11/22 01:15 12/10/22 23:25 Laboratory Results Short CBC 12/11/22 Range/Units 08:15 WBC 6.50 (4.8-10.8) K/ul Hgb 10.3 L (12.0-16.0) g/dl Hct 32.4 L (37.0-47.0) % Plt Count 171 (130-400) K/uL BMP 12/10/22 12/11/22 07:58 08:15 Sodium 134 L 138 Potassium 3.8 3.7 Chloride 96 L 100 Carbon Dioxide 31 34 H BUN 15 13 Creatinine 0.61 0.57 L Glucose 121 H 129 H Calcium 8.5 L 8.6 Medications Administered Current Inpatient Medications Acetaminophen (Acetaminophen 325 Mg Tab) 650 mg PO Q4H PRN PRN Reason: Pain or Fever Stop: 01/08/23 02:03 Last Admin: 12/11/22 04:26 Dose: 650 mg Aspirin (Aspirin 81 Mg Ectab) 81 mg PO PM ANA PAULA Stop: 01/08/23 20:59 Last Admin: 12/10/22 20:18 Dose: 81 mg Atorvastatin Calcium (Atorvastatin 40 Mg Tab) 80 mg PO PM ANA PAULA Stop: 01/08/23 20:59 Last Admin: 12/10/22 20:17 Dose: 80 mg Dextrose (Dextrose 50% 50 Ml Syringe) 25 - 50 ml IV UD PRN; Protocol PRN Reason: Hypoglycemia Protocol Stop: 01/08/23 02:03 Famotidine (Famotidine 20 Mg Tab) 20 mg PO BID PRN PRN Reason: breakthrough heart burn Stop: 01/08/23 02:03 Glucagon (Glucagon For Inj 1 Mg Vial) 1 mg SQ UD PRN; Protocol PRN Reason: Hypoglycemia Protocol Stop: 01/08/23 02:03 Glucose (Glucose 10 Tab/Tube) 4 - 8 tab PO UD PRN; Protocol PRN Reason: Hypoglycemia Treatment Stop: 01/08/23 02:03 Glucose (Glucose 40% Gel 15 Gm Tube) 15 - 30 gm PO UD PRN; Protocol PRN Reason: Hypoglycemia Protocol Stop: 01/08/23 02:03 Heparin Sodium/Dextrose (Heparin Sodium/Dextrose) 25,000 units in 500 mls @ 44 mls/hr IV .[id number] ANA PAULA; Protocol Stop: 01/08/23 01:14 Last Titration: 12/11/22 07:09 Dose: 2,200 units/hr, 44 mls/hr Promethazine HCl 12.5 mg/ (Sodium Chloride) 50.5 mls @ 202 mls/hr IV Q6H PRN PRN Reason: Nausea And Vomiting Stop: 01/08/23 02:03 Cefepime HCl 2,000 mg/ Syringe 20 mls @ 5 mls/min IV Q8H [facility]; Protocol Stop: 12/19/22 07:59 Last Admin: 12/11/22 08:16 Dose: 5 mls/min Insulin Aspart (Insulin Aspart Per Unit Charge) 0 units SC ACHS [facility] Stop: 01/08/23 02:03 Last Admin: 12/11/22 08:15 Dose: Not Given Metoprolol Succinate (Metoprolol Succ 50mg Ext Rel Tab) 50 mg PO BID [facility] Stop: 01/09/23 20:59 Last Admin: 12/11/22 09:14 Dose: 50 mg Miscellaneous (Trospium 60 Mg - Order Awaiting Action) 1 each N/A QS [facility] Stop: 01/08/23 07:59 Last Admin: 12/09/22 09:30 Dose: Not Given Miscellaneous (Carbohydrates For Hypoglycemia ) 15 - 30 gm PO UD PRN PRN Reason: Hypoglycemia Protocol Stop: 01/08/23 02:03 Morphine Sulfate (Morphine Sulfate 4 Mg/Ml 1 Ml Carp\Vial) 4 mg IV Q4H PRN PRN Reason: Pain Stop: 12/23/22 02:03 Last Admin: 12/09/22 23:56 Dose: 4 mg Multivitamins (Multivitamin Tab) 1 tab PO PM [facility] Stop: 01/08/23 20:59 Last Admin: 12/10/22 20:19 Dose: 1 tab Nystatin (Nystatin Powder 15gm Btl) 1 appln EXT BID [facility] Stop: 01/08/23 22:14 Last Admin: 12/11/22 08:16 Dose: 1 appln Pantoprazole Sodium (Pantoprazole 40 Mg Tab) 40 mg PO BID [facility] Stop: 01/08/23 08:59 Last Admin: 12/11/22 09:14 Dose: 40 mg Tramadol HCl (Tramadol Hcl 50 Mg Tablet) 50 - 100 mg PO Q8 PRN PRN Reason: Pain, Severe Stop: 01/08/23 02:03 Last Admin: 12/09/22 10:15 Dose: 100 mg (6) Fall Encounter type: initial encounter Qualified Code(s): W19.XXXA - Unspecified fall, initial encounter (7) Acute shoulder pain Laterality: right Qualified Code(s): M25.511 - Pain in right shoulder
[2022-12-11 09:42] LABS: Partial Thromboplastin Ratio 1.8
[2022-12-11 09:48] LABS: Partial Thromboplastin Time 48.4 Seconds (21.0-31.0)
--- NOTE | 2022-12-11 09:51 | Urology Progress Note ---
Date of Service December 11, 2022 Assessment & Plan (1) Complicated UTI (urinary tract infection): (2) Sepsis: (3) Calculus of left kidney: Plan: Follow-up of urinary tract infection, sepsis, left renal calculi. She is afebrile and hemodynamically stable. Labs reviewedcreatinine 0.57, WBC 6.50, hgb 10.3. Urine culture and blood cultures from 12/08 showing E. coli. Repeat blood cultures 12/10 showing no growth x 24 hours. Currently on IV Cefepime. She is agreeable to proceed with surgical intervention today as previously discussed. - Proceed with cystoscopy, left retrograde pyelogram, and left ureteral stent placement today. - Keep NPO for procedure. - OR notified. - Risks and benefits of procedure to be reviewed with patient by Dr. Thorpe. - Continue scheduled Cefepime for preoperative antibiotic coverage. - Continue supportive care, antibiotics, and medical management per hospital team. - Okay to continue heparin in the setting of stent placement. - will follow. Admission and Anticipated Discharge Date Admission Date: December 09, 2022 Supervising Physician Co-Signing Physician Notes We reviewed the plan for cystoscopy, left ureteral stent placement. Reviewed risks and benefits of the surgery including risk of bleeding, infection, injury to the urinary tract, inability to place the stent. She expressed understanding and willingness to proceed. Subjective Patient seen and examined at bedside this morning. She is awake, alert and si tting up in bed. No acute issues overnight. She reports low back pain, no flank pain. External female catheter in place draining concentrated urine. No fever or chills. No nausea or vomiting. She is NPO. Labs reviewedcreatinine 0.57, WBC 6.50, hemoglobin 10.3 Review of Systems Constitutional: as per Subjective / HPI Gastrointestinal: as per Subjective / HPI Genitourinary: as per Subjective / HPI Physical Exam Constitutional: + morbidly obese and comfortable; no acute distress Respiratory: normal respiratory effort; no respiratory distress and no labored breathing Cardiovascular: mild edema Gastrointestinal (Abdomen): Percussion/Palpation: abdomen soft; abdomen nontender Musculoskeletal: Head/Neck/Chest: normocephalic and head atraumatic Neurologic: moves all extremities and awake Psychiatric: Orientation: alert and oriented x 3 Genitourinary: External catheter in place draining concentrated yellow urine. Results & Data Vital Signs (Past 12 Hours) Vital Signs Temp Pulse Pulse Resp BP Pulse Ox O2 Del Method 12/11/22 08:17 36.8 C 86 19 120/71 91 Room Air 12/11/22 02:00 12/11/22 04:56 36.8 C 86 21 117/55 L 98 Room Air 12/11/22 01:23 92 H 12/11/22 01:15 Room Air 12/10/22 23:25 37.2 C 91 H 16 114/61 92 Room Air O2 Del Method 12/11/22 08:17 12/11/22 02:00 Room Air 12/11/22 04:56 12/11/22 01:23 12/11/22 01:15 12/10/22 23:25 PG Care Time/CCT Total # of Minutes Spent Total Time Spent with Patient: Total time spent is greater than 50% in coordination of care (as documented) at patient's floor/unit and/or counseling patient: Coding Level of Care Code 62234 SUB INP/OBS CARE 10/07MIN Diagnoses Complicated UTI (urinary tract infection) N39.0 Sepsis A41.9 Calculus of left kidney N20.0
[2022-12-11] MEDS: HEPARIN SODIUM/DEXTROSE 25,000 UNITS/500 ML BAG IV SCH ×2 (11:31→22:17)
[2022-12-11] MEDS ORDERED: ONDANSETRON INJ 2 MG/ML 2 ML VIAL IV PRN (14:38)
[2022-12-11] MEDS ORDERED: ATROPINE SULFATE 0.1 MG/ML 10ML SYR IV PRN (14:38)
[2022-12-11] MEDS ORDERED: fentaNYL citrate PF 100 MCG/2 ML VIAL IV PRN (14:38)
[2022-12-11] MEDS ORDERED: ePHEDrine sulfate 50 MG/ML AMP IV PRN (14:38)
--- NOTE | 2022-12-11 14:38 | Anesthesiology Consultation ---
Date of Service December 11, 2022 Assessment & Plan ASA ASA3 Proposed Anesthesia Anesthesia Type: MAC Risk / Benefits Reviewed With: PT / POA / Parent / Guardian, Accepts Plan and Informed Consent Obtained History Surgery Operation Date: 12/11/22 08:20 Proposed Procedures p Cystoscopy Left Retrograde Pyelogram and Stent Placement - Darinel Thorpe MD Height/Weight Height: 5 ft 4 in Weight: 132.9 kg Allergies Allergy/AdvReac Type Severity Reaction Status Date / Time doxycycline Allergy Intermediate SWELLING Verified 03/12/21 07:09 codeine Allergy Mild PER Verified 03/12/21 07:09 PATIENT "MADE HER MARY ANNE CRAZY" WHEN SHE TOOK ALOT Sulfa (Sulfonamide Allergy Mild Gastrointestinal Verified 03/12/21 07:09 Antibiotics) Upset tetracycline Allergy Mild SWELLING Verified 03/12/21 07:09 TO EYES NARINDER Inhibitors AdvReac Intermediate cough Verified 03/12/21 07:09 Medications Home Medications Medication Instructions Recorded Confirmed Last Taken aspirin 81 mg tablet,delayed 81 mg PO PM 05/22/20 12/08/22 03/11/21 release (Adult Aspirin Regimen) atorvastatin 80 mg tablet 80 mg PO PM 05/22/20 12/08/22 03/11/21 azelastine 205.5 mcg (0.15 %) 1 spray intranasal BID PRN 05/22/20 12/08/22 Unknown nasal spray Congestion hydrochlorothiazide 25 mg tablet 25 mg PO QAM 05/22/20 12/08/22 06/05/22 lansoprazole 30 mg delayed 30 mg PO BID 05/22/20 12/08/22 06/05/22 release,disintegrating tablet levalbuterol HCl 0.31 mg/3 mL 0.31 mg inhalation DAILY PRN 05/22/20 12/08/22 Unknown solution for nebulization (Xopenex) Shortness Of Breath losartan 25 mg tablet 25 mg PO PM 05/22/20 12/08/22 06/04/22 multivitamin (Daily Multi-Vitamin 1 tab PO PM 05/22/20 12/08/22 03/11/21 tablet) meclizine 25 mg tablet 25 mg PO TID PRN Dizziness 06/05/22 12/08/22 Unknown trospium 60 mg capsule,extended 60 mg PO PM 09/23/22 03/28/23 09/22/22 release 24 hr apixaban 5 mg tablet (Eliquis) 5 mg PO BID #60 tabs 06/07/22 12/08/22 Unknown famotidine 20 mg tablet 20 mg PO BID PRN breakthrough 06/07/22 12/08/22 Unknown heart burn #60 tabs metoprolol succinate 25 mg 25 mg PO BID #60 tabs 06/07/22 12/08/22 Unknown tablet,extended release 24 hr spironolactone 25 mg tablet 12.5 mg PO DAILY #30 tabs 06/07/22 12/08/22 Unknown tramadol 50 mg tablet 50 - 100 mg PO Q8 PRN Pain, Severe 12/08/22 12/08/22 Unknown Active Medications Generic Name Dose Route Start Last Admin Trade Name Freq PRN Reason Stop Dose Admin Acetaminophen 650 mg 12/09/22 02:04 12/11/22 04:26 Acetaminophen 325 Mg Tab PO 01/08/23 02:03 650 mg Q4H PRN Administration Pain or Fever Aspirin 81 mg 12/09/22 21:00 12/10/22 20:18 Aspirin 81 Mg Ectab PO 01/08/23 20:59 81 mg PM ANA PAULA Administration Atorvastatin Calcium 80 mg 12/09/22 21:00 12/10/22 20:17 Atorvastatin 40 Mg Tab PO 01/08/23 20:59 80 mg PM ANA PAULA Administration Heparin Sodium/Dextrose 25,000 units in 500 mls @ 44 mls/hr 12/09/22 01:15 12/11/22 11:31 Heparin Sodium/Dextrose IV 01/08/23 01:14 2,200 units/hr .[id number] ANA PAULA 44 mls/hr Administration Protocol 2,200 UNITS/HR Cefepime HCl 2,000 mg/ Syringe 20 mls @ 5 mls/min 12/09/22 08:00 12/11/22 08:16 IV 12/11/22 17:00 5 mls/min Q8H ANA PAULA Administration Protocol Insulin Aspart 0 units 12/09/22 02:04 12/11/22 12:42 Insulin Aspart Per Unit Charge SC 01/08/23 02:03 Not Given ACHS ANA PAULA Metoprolol Succinate 50 mg 12/10/22 21:00 12/11/22 09:14 Metoprolol Succ 50mg Ext Rel Tab PO 01/09/23 20:59 50 mg BID ANA PAULA Administration Miscellaneous 1 each 12/09/22 08:00 12/09/22 09:30 Trospium 60 Mg - Order Awaiting Action N/A 01/08/23 07:59 Not Given QS ANA PAULA Morphine Sulfate 4 mg 12/09/22 02:04 12/09/22 23:56 Morphine Sulfate 4 Mg/Ml 1 Ml Carp\\Vial IV 12/23/22 02:03 4 mg Q4H PRN Administration Pain Multivitamins 1 tab 12/09/22 21:00 12/10/22 20:19 Multivitamin Tab PO 01/08/23 20:59 1 tab PM ANA PAULA Administration Nystatin 1 appln 12/09/22 22:15 12/11/22 08:16 Nystatin Powder 15gm Btl EXT 01/08/23 22:14 1 appln BID ANA PAULA Administration Pantoprazole Sodium 40 mg 12/09/22 09:00 12/11/22 09:14 Pantoprazole 40 Mg Tab PO 01/08/23 08:59 40 mg BID ANA PAULA Administration Tramadol HCl 50 - 100 mg 12/09/22 02:04 12/09/22 10:15 Tramadol Hcl 50 Mg Tablet PO 01/08/23 02:03 100 mg Q8 PRN Administration Pain, Severe NPO Date Last Intake of Fluids: 12/10/22 Time Last Intake of Fluids: 23:00 Date Last Intake of Solids: 12/10/22 Time Last Intake of Solids: 23:00 Past Medical History Medical History Acquired lymphedema TO STOMACH> GETS THERAPY/MASSAGE TO MANAGE > WAS COMPLICATION AFTER RADIATION TREATMENT Asthma WELL CONTROLLED> JUST TRIGGERED BY ODORS; no inh Atrial fibrillation with rapid ventricular response Chronic bronchitis Deep vein thrombosis FEBRUARY 2011 > CAUSED BY PROLONGED SITTING DURING A PREVIOUS HOSPITALIZATION > TREATED WITH COUMADIN Diabetes mellitus, type II GERD (gastroesophageal reflux disease) diet controlled History of anesthesia reaction woke up during D&C, colonoscopy Hyperlipidemia Hypertension IBS (irritable bowel syndrome) Lipodermatosclerosis Morbid obesity On home O2 2 lpm qHS Osteoarthritis Overactive bladder Pulmonary embolism FEBRUARY 2011 > CAUSED BY PROLONGED SITTING DURING A PREVIOUS HOSPITALIZATION > TREATED WITH COUMADIN Uterine cancer APR 2014 > RADIATION > RESOLVED Vertigo Vitreous detachment of both eyes Exercise / Class Metabolic Activity II 4-5 Yardwork/Stairs/Walk up hill Past Family History Family History Other No family history of adverse response to anesthesia Past Surgical History Surgical History History of bilateral tubal ligation History of cardiac cath NO STENTS > OVER 10 YRS AGO > DONE FOR CP History of cataract surgery RT History of cholecystectomy History of colonoscopy History of dilatation and curettage History of esophagogastroduodenoscopy (EGD) History of tooth extraction Hx of hernia repair VENTRAL WITH MESH Past Anesthesia History No Hx of Anesthesia Complications and No Family Hx of Anesthesia Complications History of PONV No Hx of PONV and No Hx of Motion Sickness Social History Smoking Status: Never smoker Hx Alcohol Use: No Hx Substance Use: No substance use type: does not use Review of Systems denies fever/cough/ colds/ chest pain/ SOB/ DIDI denies DIDI Physical Exam Vital Signs Last Vital Signs Temp 36.6 C 12/11/22 14:19 Pulse 83 12/11/22 14:19 Resp 20 12/11/22 14:19 BP 141/67 H 12/11/22 14:19 Pulse Ox 96 12/11/22 14:19 O2 Del Method Room Air 12/11/22 14:19 O2 Flow Rate 1 12/10/22 07:49 ENMT Mouth: + poor dentition; no TMJ abnormality and no dentition abnormality Thyromental Distance: > or= 3.5 Finger Breadths Mallampati Class: II Neck neck extension not limited Respiratory normal respiratory effort; no respiratory distress Auscultation: lungs clear to auscultation bilaterally Cardiovascular Rate/Rhythm: regular rate and regular rhythm Neurologic moves all extremities Psychiatric Orientation: alert and oriented x 3 Testing Laboratory Results 12/11/22 08:15 12/11/22 08:15 PT 12.1 Seconds (9.0-12.0) H 12/08/22 19:44 INR 1.1 (0.9-1.1) 12/08/22 19:44 APTT 48.4 Seconds (21.0-31.0) H* 12/11/22 08:15 Urine Color Yellow 12/08/22 22:23 Urine Appearance Cloudy (Clear) A 12/08/22 22:23 Urine pH 6.0 (4.5-7.5) 12/08/22 22:23 Ur Specific [place] 1.035 (1.000-1.030) H 12/08/22 22:23 Urine Protein 1+ (Negative) H 12/08/22 22:23 Urine Glucose (UA) Negative (Negative) 12/08/22 22:23 Urine Ketones Negative (Negative) 12/08/22 22:23 Urine Nitrite Positive (Negative) A 12/08/22 22:23 Ur Leukocyte Esterase 2+ (Negative) H 12/08/22 22:23 Urine WBC (Auto) >30 /hpf (0-5) H 12/08/22 22:23 Urine RBC (Auto) 10-30 /hpf (0-4) H 12/08/22 22:23 U Hyaline Cast (Auto) 0 /lpf (0-5) 12/08/22 22:23 U Epithel Cells (Auto) 5-10 /lpf (0-5) H 12/08/22 22:23 Urine Bacteria (Auto) 4+ (Negative) H 12/08/22 22:23 12/08/22 23:02 Aerobic Blood Culture - Final Blood Escherichia coli Anaerobic Blood Culture - Final Escherichia coli 12/08/22 00:27 Aerobic Blood Culture - Final Blood Escherichia coli Anaerobic Blood Culture - Final Escherichia coli 12/10/22 07:58 Aerobic Blood Culture - Preliminary Blood No growth in Aerobic bottle after 24 hours. 12/10/22 07:58 Aerobic Blood Culture - Preliminary Blood No growth in Aerobic bottle after 24 hours. Anaerobic Blood Culture - Preliminary No growth in Anaerobic bottle after 24 hours. 12/08/22 22:23 Urine Culture - Final Urine,Clean Catch Escherichia coli 12/11/22 12/11/22 11:14 07:13 POC Glucose 107 H 117 H
[2022-12-11] MEDS ORDERED: ONDANSETRON INJ 2 MG/ML 2 ML VIAL ONE (14:53)
[2022-12-11] MEDS ORDERED: LIDOCAINE 2% MPF LOCAL 5 ML VIAL ONE (14:53)
[2022-12-11] MEDS ORDERED: PROPOFOL IV EMULSION 10 MG/ML 20 ML VIAL IV ONE ×2 (14:53→15:06)
[2022-12-11] MEDS ORDERED: fentaNYL citrate PF 100 MCG/2 ML VIAL ONE (14:54)
[2022-12-11] MEDS ORDERED: DIATRIZOATE MEGLUMINE 30% 100ML VIAL INSTIL ONE (15:16)
--- NOTE | 2022-12-11 15:41 | Operative Report ---
PG Post Operative Report Pre & Post Diagnosis Operation Date: 12/11/22 08:20 Preoperative diagnosis: Left renal stone, UTI Postoperative diagnosis: Left renal stone, UTI I identified the patient and participated in the time-out.: Yes Procedure Operation Date: 12/11/22 08:20 Cystoscopy, left retrograde pyelogram, left ureteral stent placement Surgeon Darinel Thorpe MD Ward Aide None Estimated Blood Loss 0 Findings Consistent with Post-Op Diagnosis Specimens Urine from left kidney for culture Drains 7 Prydeinig by 24 cm double-J ureteral stent in the left ureter 16 Prydeinig Osorio catheter per urethra, 10 mL in balloon Anesthesia Type MAC Complications none Disposition Accompanied Patient To Recovery: Yes Disposition: Recovery Room Indications This is a 77-year-old female with history of recurrent UTIs recently found to have a partial staghorn stone of the left kidney. She presents to the OR today for left ureteral stent placement to decompress the kidney. Description of Procedure The patient was identified in the holding area and informed consent was confirmed. She was marked on the left side, then was taken to the operating room where anesthesia was initiated. She was placed in the dorsal lithotomy position with all pressure points appropriately padded. She was prepped and draped in the usual sterile fashion and a preoperative timeout was performed. A well-lubricated cystoscope was inserted per urethra and panendoscopy was performed. The urethra was normal in appearance. The bladder was of normal size with ureteral orifices in orthotopic position. The left ureteral orifice was identified and cannulated with a 5 Prydeinig open- ended catheter. On x-ray, a shadow suggesting the stone was easily identified over the level of the kidney. A 0.038" ZIPwire was advanced to the level of the kidney under fluoroscopic guidance. The wire initially curled back off the stone, however by positioning the 5 Prydeinig open-ended catheter in close proximity, the wire could be passed by the stone. 5 Prydeinig open-ended catheter was then advanced further over the wire and an aspirate of the urine proximal to the stone was obtained. This was sent for culture. Cystografin was used to perform a retrograde pyelogram at this level to confirm good position within the kidney. There was no extravasation appreciated. The wire was positioned in the upper pole of the kidney, proximal to the obstructing stone. Over the wire, a 7 Prydeinig x 24 centimeter double-J ureteral stent was advanced. When the wire was removed, the proximal curl was visualized in the kidney with x-ray, and the distal curl visualized in the bladder with the cystoscope. All instrumentation was removed. A 16 Prydeinig Osorio catheter was placed per urethra with 10 mL in balloon. The catheter was attached to gravity drainage. The patient was then awakened from anesthesia and was brought to the PACU in stable condition. I attest to the content of the Intraoperative Record and any orders documented therein. Any exceptions are noted below.
--- NOTE | 2022-12-11 15:53 | Fluoroscopy Report ---
FL retrograde includes kub CLINICAL HISTORY: LEFT SIDE STENT[nephrolithiasis COMPARISON STUDY: CT abdomen and pelvis 11/30/2022 FLUOROSCOPY TIME: 15.4 seconds FLUOROSCOPY IMAGES: 1 EXPOSURE DOSE: 7.40 mGy FINDINGS: Proximal portion of a left renal stent appears to be in satisfactory positioning. The dista l portion of the stent is not imaged. Ill-defined contrast noted within the left renal collecting sys tem. IMPRESSION: Fluoroscopic assistance as above. ACT 112: Negative or not required by law. Electronically signed by: Lebron Reyes M.D. 12/11/2022 3:51 PM
--- NOTE | 2022-12-11 16:29 | Anesthesiology Progress Note ---
Date of Service December 11, 2022 Anesthesia Post Procedure Vital Signs Vital Signs: Temp Pulse Pulse Pulse Resp BP Pulse Ox 12/11/22 16:25 84 16 159/76 H 99 12/11/22 16:10 36.3 C L 87 20 164/81 H 97 12/11/22 16:00 92 H 21 121/87 92 12/11/22 15:50 36.2 C L 91 H 16 143/70 H 98 12/11/22 14:19 36.6 C 83 20 141/67 H 96 12/11/22 08:00 12/11/22 08:00 78 12/11/22 11:18 36.8 C 87 16 112/79 94 12/11/22 08:17 36.8 C 86 19 120/71 91 12/11/22 02:00 12/11/22 04:56 36.8 C 86 21 117/55 L 98 12/11/22 01:23 92 H 12/11/22 01:15 12/10/22 23:25 37.2 C 91 H 16 114/61 92 12/10/22 19:26 36.9 C 96 H 18 115/69 92 12/10/22 17:24 36.7 C 96 H 18 122/53 L 91 O2 Del Method O2 Del Method O2 Flow Rate 12/11/22 16:25 Nasal Cannula 2 12/11/22 16:10 Nasal Cannula 2 12/11/22 16:00 Room Air 12/11/22 15:50 Oxymask 6 12/11/22 14:19 Room Air 12/11/22 08:00 Room Air 12/11/22 08:00 12/11/22 11:18 Room Air 12/11/22 08:17 Room Air 12/11/22 02:00 Room Air 12/11/22 04:56 Room Air 12/11/22 01:23 12/11/22 01:15 Room Air 12/10/22 23:25 Room Air 12/10/22 19:26 Room Air 12/10/22 17:24 Room Air Pain Intensity Right Hip: Pain Intensity: 2 Generalized: Pain Intensity: 5 Transfer of Care Handoff Completed per policy Notes Mental Status: alert / awake / arousable Patient Amnestic to Procedure: Yes Nausea / Vomiting: adequately controlled Pain: adequately controlled Airway Patency, RR, SpO2: stable & adequate BP & HR: stable & adequate Hydration State: stable & adequate Anesthetic Complications: no major complications apparent
[2022-12-11] MEDS: ACETAMINOPHEN 500 MG TAB PO SCH ×2 (17:49→22:32)
[2022-12-11] MEDS: POLYETHYLENE (MIRALAX) 17 GM PACK PO SCH (18:42)
[2022-12-11] MEDS: MULTIVITAMIN TAB PO SCH (22:14)
[2022-12-11] MEDS: ATORVASTATIN 40 MG TAB PO SCH (22:15)
[2022-12-11] MEDS: DOCUSATE SODIUM 100 MG CAP PO SCH (22:15)
[2022-12-11] MEDS: ASPIRIN 81 MG ECTAB PO SCH (22:15)
[2022-12-11] MEDS: cefTRIAXone SODIUM 2,000 MG in DEXTROSE 5% 50 ML IV SCH (22:24)
[2022-12-12] MEDS: HEPARIN SODIUM/DEXTROSE 25,000 UNITS/500 ML BAG IV SCH (03:50)
[2022-12-12] MEDS: ACETAMINOPHEN 500 MG TAB PO SCH ×3 (06:35→21:56)
--- NOTE | 2022-12-12 07:18 | Urology Progress Note ---
Date of Service December 12, 2022 Assessment & Plan (1) Sepsis: (2) Complicated UTI (urinary tract infection): (3) Calculus of left kidney: (4) Atrial fibrillation with rapid ventricular response: Plan: Complicated urinary tract infection Sepsis Gram-negative bacilli bacteremia H/O Recurrent UTI Mild left hydronephrosis --CT ABD:No significant acute traumatic injury to the abdomen or pelvis. -- Blood culture: Gram-negative bacilli Urine culture gram-negative bacilli Received IV fluids Continue IV cefepime-->Rocephin-->will plan to transition t oPO abx 48 hours post last temp rise. Will hold Trospium to help with bladder emptying Bladder scan to monitor for retention Appreciate urology input s/p ureteral stent placement 12/11 operative urine culture still pending-->cont abx A-fib RVR In setting of sepsis Mild troponin elevation/Type II [place]--likely demand ischemia secondary to sepsis, A-fib RVR --ECHO Sept 23: Left ventricle is normal in size. Mild concentric LVH. Left ventricular wall motion is normal. EF 55 to 60%. Left atrium is mildly dilated. Aortic valve sclerosis moderate, without significant aortic valvular stenosis. Significant mitral regurgitation is absent. --Chest CTA:No significant acute traumatic injury identified involving the chest/thorax. No significant alteration from the previous examination. -- Metoprolol dose increased to 37.5 mg twice a day Monitor and replace electrolytes as needed Hold Eliquis for now with heparin given periprocedurally Metoprolol dose increased to 50 mg twice a day-->good HR control at this point. Transitioning back to apixaban. Right thyroid nodule --CT Neck:Asymmetric enlargement of the right thyroid lobe with suspected solid nodule and internal calcifications. Recommend nonemergent thyroid ultrasound, if not previously evaluated. Negative outpatient biopsy as per records Normal TSH Follow-up as outpatient Bilateral osteoarthritis of knees Imaging studies showed no acute fractures Appreciate orthopedics input PT OT Fall precautions scheduled tylenol ordered Hypertension chronic, at goal. Continue metoprolol Hold losartan, HCTZ for now given relatively low blood pressure Monitor Hyperlipidemia chronic, stable. on statin H/O PE/DVT restart apixiban tomorrow Bronchial Asthma No signs of exacerbation Monitor DM II Diet-controlled HbA1C 6.3 May 2022 Continue insulin Monitor BGs Endometrial cancer S/P Radiation In remission Morbid Obesity Chronic lymphedema Resume home diuretics as able Functional disability Secondary to comorbidities Fall precautions PT OT DVT Px: apixaban Code Status Full code Grisel Lino DO [facility] Hospitalist (5) Elevated troponin: (6) Fall: (7) Acute shoulder pain: (8) Hip pain: (9) Morbid obesity: (10) Overactive bladder: (11) Asthma: (12) Diabetes mellitus, type II: Admission and Anticipated Discharge Date Admission Date: December 09, 2022 Review of Systems Review of Systems: All systems are reviewed and negative except as indicated on HPI above. Physical Exam Physical Exam: CONSTITUTIONAL: morbid obesity, vitals as above, generally well-appearing, NAD EYES: normal conjunctivae, no scleral icterus ENT: external ear and nose normal, MMM NECK: trachea midline RESPIRATORY: clear to auscultation bilaterally, no crackles, rales or wheezes, normal respiratory effort CARDIOVASCULAR: regular rate and rhythm, S1 and 2 heard without murmurs, gallops or rubs, no JVD, no peripheral edema CHEST: inspection of chest was normal GASTROINTESTINAL: soft, nontender, ND, no guarding MUSCULOSKELETAL: strength 5/5 throughout, head is normocephalic and atraumatic SKIN: warm and dry NEUROLOGIC: CN 2-12 grossly intact, no sensory deficit, normal cognition, normal speech, no tremor PSYCHIATRIC: alert cooperative and oriented to person, place and time. Euthymic mood, makes good eye contact, language grossly intact, recent and remote memory grossly intact. Results & Data Vital Signs (Past 12 Hours) Vital Signs Temp Pulse Pulse Resp BP Pulse Ox O2 Del Method 12/11/22 22:02 83 12/11/22 20:00 Room Air 12/12/22 03:20 36.8 C 78 18 127/78 95 Room Air 12/11/22 22:58 36.8 C 97 H 18 134/78 90 Room Air Medications Administered Current Inpatient Medications Acetaminophen (Acetaminophen 500 Mg Tab) 1,000 mg PO Q8 ANA PAULA Stop: 01/10/23 17:44 Last Admin: 12/12/22 06:35 Dose: 1,000 mg Apixaban (Apixaban 5 Mg Tablet) 5 mg PO BID ANA PAULA Stop: 01/11/23 08:59 Last Admin: 12/12/22 08:59 Dose: 5 mg Aspirin (Aspirin 81 Mg Ectab) 81 mg PO PM ANA PAULA Stop: 01/08/23 20:59 Last Admin: 12/11/22 22:15 Dose: 81 mg Atorvastatin Calcium (Atorvastatin 40 Mg Tab) 80 mg PO PM ANA PAULA Stop: 01/08/23 20:59 Last Admin: 12/11/22 22:15 Dose: 80 mg Dextrose (Dextrose 50% 50 Ml Syringe) 25 - 50 ml IV UD PRN; Protocol PRN Reason: Hypoglycemia Protocol Stop: 01/08/23 02:03 Docusate Sodium (Docusate Sodium 100 Mg Cap) 100 mg PO BID ANA PAULA Stop: 01/10/23 20:59 Last Admin: 12/12/22 08:14 Dose: 100 mg Famotidine (Famotidine 20 Mg Tab) 20 mg PO BID PRN PRN Reason: breakthrough heart burn Stop: 01/08/23 02:03 Glucagon (Glucagon For Inj 1 Mg Vial) 1 mg SQ UD PRN; Protocol PRN Reason: Hypoglycemia Protocol Stop: 01/08/23 02:03 Glucose (Glucose 10 Tab/Tube) 4 - 8 tab PO UD PRN; Protocol PRN Reason: Hypoglycemia Treatment Stop: 01/08/23 02:03 Glucose (Glucose 40% Gel 15 Gm Tube) 15 - 30 gm PO UD PRN; Protocol PRN Reason: Hypoglycemia Protocol Stop: 01/08/23 02:03 Promethazine HCl 12.5 mg/ (Sodium Chloride) 50.5 mls @ 202 mls/hr IV Q6H PRN PRN Reason: Nausea And Vomiting Stop: 01/08/23 02:03 Ceftriaxone Sodium 2,000 mg/ (Dextrose) 70 mls @ 140 mls/hr IV Q24H ANA PAULA Stop: 12/22/22 23:29 Last Infusion: 12/11/22 22:55 Dose: Infused Insulin Aspart (Insulin Aspart Per Unit Charge) 0 units SC ACHS [facility] Stop: 01/08/23 02:03 Last Admin: 12/12/22 08:14 Dose: 3 units Metoprolol Succinate (Metoprolol Succ 50mg Ext Rel Tab) 50 mg PO BID [facility] Stop: 01/09/23 20:59 Last Admin: 12/12/22 08:14 Dose: 50 mg Miscellaneous (Trospium 60 Mg - Order Awaiting Action) 1 each N/A QS [facility] Stop: 01/08/23 07:59 Last Admin: 12/09/22 09:30 Dose: Not Given Miscellaneous (Carbohydrates For Hypoglycemia ) 15 - 30 gm PO UD PRN PRN Reason: Hypoglycemia Protocol Stop: 01/08/23 02:03 Morphine Sulfate (Morphine Sulfate 4 Mg/Ml 1 Ml Carp\Vial) 4 mg IV Q4H PRN PRN Reason: Pain Stop: 12/23/22 02:03 Last Admin: 12/09/22 23:56 Dose: 4 mg Multivitamins (Multivitamin Tab) 1 tab PO PM ANA PAULA Stop: 01/08/23 20:59 Last Admin: 12/11/22 22:14 Dose: 1 tab Nystatin (Nystatin Powder 15gm Btl) 1 appln EXT BID ANA PAULA Stop: 01/08/23 22:14 Last Admin: 12/12/22 08:14 Dose: 1 appln Pantoprazole Sodium (Pantoprazole 40 Mg Tab) 40 mg PO BID ANA PAULA Stop: 01/08/23 08:59 Last Admin: 12/12/22 08:14 Dose: 40 mg Polyethylene Glycol (Polyethylene (Miralax) 17 Gm Pack) 17 gm PO DAILY ANA PAULA Stop: 01/10/23 17:44 Last Admin: 12/12/22 08:14 Dose: 17 gm Tramadol HCl (Tramadol Hcl 50 Mg Tablet) 50 - 100 mg PO Q8 PRN PRN Reason: Pain, Severe Stop: 01/08/23 02:03 Last Admin: 12/09/22 10:15 Dose: 100 mg PG Care Time/CCT Total # of Minutes Spent Total Time Spent with Patient: Total time spent is greater than 50% in coordination of care (as documented) at patient's floor/unit and/or counseling patient: Coding Diagnoses Sepsis A41.9 Complicated UTI (urinary tract infection) N39.0 Calculus of left kidney N20.0 Atrial fibrillation with rapid ventricular response I48.91 Elevated troponin R77.8 Fall W19.XXXA Encounter type: initial encounter Acute shoulder pain M25.511 Laterality: right Hip pain M25.559 Morbid obesity E66.01 Overactive bladder N32.81 Asthma J45.909 Diabetes mellitus, type II E11.9 (6) Fall Encounter type: initial encounter Qualified Code(s): W19.XXXA - Unspecified fall, initial encounter (7) Acute shoulder pain Laterality: right Qualified Code(s): M25.511 - Pain in right shoulder
[2022-12-12] MEDS: POLYETHYLENE (MIRALAX) 17 GM PACK PO SCH (08:14)
[2022-12-12] MEDS: METOPROLOL SUCC 50MG EXT REL TAB PO SCH ×2 (08:14→21:58)
[2022-12-12] MEDS: PANTOprazole 40 MG TAB PO SCH ×2 (08:14→22:01)
[2022-12-12] MEDS: INSULIN ASPART PER UNIT CHARGE SC SCH ×4 (08:14→21:59)
[2022-12-12] MEDS: NYSTATIN POWDER 15GM BTL EXT SCH ×2 (08:14→22:00)
[2022-12-12] MEDS: DOCUSATE SODIUM 100 MG CAP PO SCH ×2 (08:14→21:59)
[2022-12-12] MEDS: APIXABAN 5 MG TABLET PO SCH ×2 (08:59→21:59)
--- NOTE | 2022-12-12 10:34 | Urology Progress Note ---
Date of Service December 12, 2022 Assessment & Plan (1) Sepsis: (2) Complicated UTI (urinary tract infection): (3) Calculus of left kidney: Plan Amy is doing well s/p left ureteral stent placement on 12/11/2022. She should have adequate source control with left ureteral stent in place. She will require surgery for stone removal, but we will hold off on that until her infection is treated. Recommendations/plan: Okay to remove Osorio catheter Continue antibiotics, can narrow coverage per culture data -would recommend 10 to 14 days course Urology will arrange outpatient follow-up to discuss further stone management, no further intervention planned while inpatient Urology will sign off for now, please call with any questions or concerns Admission and Anticipated Discharge Date Admission Date: December 09, 2022 Subjective Feeling well, tolerating stent with minimal pain Denies any fevers or chills Irritated by Osorio catheter and ready for that to be removed Blood and urine cultures from 12/08 positive with E. coli Repeat cultures negative so far She remains on ceftriaxone Review of Systems Review of Systems: Denies fevers or chills Genitourinary: Bothered by Osorio, denies flank pain Physical Exam Physical Exam: Well-appearing, NAD Respiratory: Breathing comfortably on room air, no audible wheezing Gastrointestinal (Abdomen): Soft, nontender Genitourinary: Osorio draining clear yellow urine Results & Data Vital Signs (Past 12 Hours) Vital Signs Temp Pulse Resp BP Pulse Ox O2 Del Method 12/12/22 07:22 36.8 C 85 19 102/65 96 Room Air 12/12/22 03:20 36.8 C 78 18 127/78 95 Room Air 12/11/22 22:58 36.8 C 97 H 18 134/78 90 Room Air PG Care Time/CCT Total # of Minutes Spent Total Time Spent with Patient: Total time spent is greater than 50% in coordination of care (as documented) at patient's floor/unit and/or counseling patient: Coding Level of Care Code 75851 SUB INP/OBS CARE 10/07MIN Diagnoses Sepsis A41.9 Complicated UTI (urinary tract infection) N39.0 Calculus of left kidney N20.0
[2022-12-12] MEDS ORDERED: TROLAMINE SALICYLATE 10% CRM 255 APPLN/85 GM TUBE EXT PRN (16:51)
[2022-12-12] MEDS ORDERED: GLYCERIN ADULT 12 SUPP/BOX SUPP PR ONE (16:54)
--- NOTE | 2022-12-12 16:58 | Hospitalist Progress Note ---
Date of Service December 12, 2022 Assessment & Plan (1) Sepsis: (2) Complicated UTI (urinary tract infection): (3) Calculus of left kidney: (4) Atrial fibrillation with rapid ventricular response: Plan: Complicated urinary tract infection Sepsis Gram-negative bacilli bacteremia H/O Recurrent UTI Mild left hydronephrosis --CT ABD:No significant acute traumatic injury to the abdomen or pelvis. -- Blood culture: Gram-negative bacilli Urine culture gram-negative bacilli Received IV fluids Continue IV cefepime-->Rocephin-->will plan to transition to PO abx 48 hours post last temp rise. Will hold Trospium to help with bladder emptying Appreciate urology input s/p ureteral stent placement 12/11 operative urine culture still pending-->cont abx d/c cobb catheter. A-fib RVR In setting of sepsis Mild troponin elevation/Type II [place]--likely demand ischemia secondary to sepsis, A-fib RVR --ECHO Sept 23: Left ventricle is normal in size. Mild concentric LVH. Left ventricular wall motion is normal. EF 55 to 60%. Left atrium is mildly dilated. Aortic valve sclerosis moderate, without significant aortic valvular stenosis. Significant mitral regurgitation is absent. --Chest CTA:No significant acute traumatic injury identified involving the chest/thorax. No significant alteration from the previous examination. -- Metoprolol dose increased to 37.5 mg twice a day Monitor and replace electrolytes as needed Hold Eliquis for now with heparin given periprocedurally Metoprolol dose increased to 50 mg twice a day-->good HR control at this point. transfer to medical floor. Transitioning back to apixaban. Right thyroid nodule --CT Neck:Asymmetric enlargement of the right thyroid lobe with suspected solid nodule and internal calcifications. Recommend nonemergent thyroid ultrasound, if not previously evaluated. Negative outpatient biopsy as per records Normal TSH Follow-up as outpatient Bilateral osteoarthritis of knees Imaging studies showed no acute fractures Appreciate orthopedics input PT OT Fall precautions scheduled tylenol ordered Hypertension chronic, at goal. Continue metoprolol Hold losartan, HCTZ for now given relatively low blood pressure Monitor Hyperlipidemia chronic, stable. on statin H/O PE/DVT restart apixiban tomorrow Bronchial Asthma No signs of exacerbation Monitor DM II Diet-controlled HbA1C 6.3 May 2022 Continue insulin Monitor BGs Endometrial cancer S/P Radiation In remission Morbid Obesity Chronic lymphedema Resume home diuretics as able Functional disability Secondary to comorbidities Fall precautions PT OT DVT Px: apixaban Code Status Full code DO [facility] Hospital[facility] (5) Elevated troponin: (6) Fall: (7) Acute shoulder pain: (8) Hip pain: (9) Morbid obesity: (10) Overactive bladder: (11) Asthma: (12) Diabetes mellitus, type II: Admission and Anticipated Discharge Date Admission Date: December 09, 2022 Subjective 77 yo morbidly obese female presents with sepsis 2/2 ureteral obstruction 2/2 ureteral stone. doing well post procedure but persistent constipation Continues on Miralax, will add suppository Tolerating PO afebrile for 24 hours. reporting persistent sore muscles although tylenol somewhat helpful. Review of Systems Review of Systems: All systems are reviewed and negative except as indicated on HPI above. Physical Exam Physical Exam: CONSTITUTIONAL: morbid obesity, vitals as above, generally well-appearing, NAD EYES: normal conjunctivae, no scleral icterus ENT: external ear and nose normal, MMM NECK: trachea midline RESPIRATORY: clear to auscultation bilaterally, no crackles, rales or wheezes, normal respiratory effort CARDIOVASCULAR: regular rate and rhythm, S1 and 2 heard without murmurs, gallops or rubs, no JVD, no peripheral edema CHEST: inspection of chest was normal GASTROINTESTINAL: soft, nontender, ND, no guarding MUSCULOSKELETAL: strength 5/5 throughout, head is normocephalic and atraumatic SKIN: warm and dry NEUROLOGIC: CN 2-12 grossly intact, no sensory deficit, normal cognition, normal speech, no tremor PSYCHIATRIC: alert cooperative and oriented to person, place and time. Euthymic mood, makes good eye contact, language grossly intact, recent and remote memory grossly intact. Results & Data Results & Data Vital Signs (Past 12 Hours) Vital Signs Temp Pulse Pulse Resp BP Pulse Ox O2 Del Method 12/12/22 08:00 76 12/12/22 08:00 Room Air 12/12/22 15:20 37.0 C 85 20 117/70 91 Room Air 12/12/22 07:22 36.8 C 85 19 102/65 96 Room Air Medications Administered Current Inpatient Medications Acetaminophen (Acetaminophen 500 Mg Tab) 1,000 mg PO Q8 ANA PAULA Stop: 01/10/23 17:44 Last Admin: 12/12/22 12:53 Dose: 1,000 mg Apixaban (Apixaban 5 Mg Tablet) 5 mg PO BID [facility] Stop: 01/11/23 08:59 Last Admin: 12/12/22 08:59 Dose: 5 mg Aspirin (Aspirin 81 Mg Ectab) 81 mg PO PM [facility] Stop: 01/08/23 20:59 Last Admin: 12/11/22 22:15 Dose: 81 mg Atorvastatin Calcium (Atorvastatin 40 Mg Tab) 80 mg PO PM [facility] Stop: 01/08/23 20:59 Last Admin: 12/11/22 22:15 Dose: 80 mg Dextrose (Dextrose 50% 50 Ml Syringe) 25 - 50 ml IV UD PRN; Protocol PRN Reason: Hypoglycemia Protocol Stop: 01/08/23 02:03 Docusate Sodium (Docusate Sodium 100 Mg Cap) 100 mg PO BID [facility] Stop: 01/10/23 20:59 Last Admin: 12/12/22 08:14 Dose: 100 mg Famotidine (Famotidine 20 Mg Tab) 20 mg PO BID PRN PRN Reason: breakthrough heart burn Stop: 01/08/23 02:03 Glucagon (Glucagon For Inj 1 Mg Vial) 1 mg SQ UD PRN; Protocol PRN Reason: Hypoglycemia Protocol Stop: 01/08/23 02:03 Glucose (Glucose 10 Tab/Tube) 4 - 8 tab PO UD PRN; Protocol PRN Reason: Hypoglycemia Treatment Stop: 01/08/23 02:03 Glucose (Glucose 40% Gel 15 Gm Tube) 15 - 30 gm PO UD PRN; Protocol PRN Reason: Hypoglycemia Protocol Stop: 01/08/23 02:03 Promethazine HCl 12.5 mg/ (Sodium Chloride) 50.5 mls @ 202 mls/hr IV Q6H PRN PRN Reason: Nausea And Vomiting Stop: 01/08/23 02:03 Ceftriaxone Sodium 2,000 mg/ (Dextrose) 70 mls @ 140 mls/hr IV Q24H [facility] Stop: 12/22/22 23:29 Last Infusion: 12/11/22 22:55 Dose: Infused Insulin Aspart (Insulin Aspart Per Unit Charge) 0 units SC ACHS [facility] Stop: 01/08/23 02:03 Last Admin: 12/12/22 12:53 Dose: 2 units Metoprolol Succinate (Metoprolol Succ 50mg Ext Rel Tab) 50 mg PO BID [facility] Stop: 01/09/23 20:59 Last Admin: 12/12/22 08:14 Dose: 50 mg Miscellaneous (Trospium 60 Mg - Order Awaiting Action) 1 each N/A QS [facility] Stop: 01/08/23 07:59 Last Admin: 12/09/22 09:30 Dose: Not Given Miscellaneous (Carbohydrates For Hypoglycemia ) 15 - 30 gm PO UD PRN PRN Reason: Hypoglycemia Protocol Stop: 01/08/23 02:03 Multivitamins (Multivitamin Tab) 1 tab PO PM [facility] Stop: 01/08/23 20:59 Last Admin: 12/11/22 22:14 Dose: 1 tab Nystatin (Nystatin Powder 15gm Btl) 1 appln EXT BID [facility] Stop: 01/08/23 22:14 Last Admin: 12/12/22 08:14 Dose: 1 appln Pantoprazole Sodium (Pantoprazole 40 Mg Tab) 40 mg PO BID [facility] Stop: 01/08/23 08:59 Last Admin: 12/12/22 08:14 Dose: 40 mg Polyethylene Glycol (Polyethylene (Miralax) 17 Gm Pack) 17 gm PO DAILY [facility] Stop: 01/10/23 17:44 Last Admin: 12/12/22 08:14 Dose: 17 gm Tramadol HCl (Tramadol Hcl 50 Mg Tablet) 50 - 100 mg PO Q8 PRN PRN Reason: Pain, Severe Stop: 01/08/23 02:03 Last Admin: 12/09/22 10:15 Dose: 100 mg Trolamine Salicylate (Trolamine Salicylate 10% Crm 255 Appln/85 Gm Tube) 1 appln EXT BID PRN PRN Reason: sore achy muscle s of neck/benjamin Stop: 01/11/23 16:50 (6) Fall Encounter type: initial encounter Qualified Code(s): W19.XXXA - Unspecified fall, initial encounter (7) Acute shoulder pain Laterality: right Qualified Code(s): M25.511 - Pain in right shoulder
[2022-12-12] MEDS: ATORVASTATIN 40 MG TAB PO SCH (21:56)
[2022-12-12] MEDS: MULTIVITAMIN TAB PO SCH (22:00)
[2022-12-12] MEDS: ASPIRIN 81 MG ECTAB PO SCH (22:01)
[2022-12-12] MEDS: cefTRIAXone SODIUM 2,000 MG in DEXTROSE 5% 50 ML IV SCH (23:46)
[2022-12-13] MEDS: ACETAMINOPHEN 500 MG TAB PO SCH ×3 (06:43→21:24)
[2022-12-13] MEDS: traMADol HCL 50 MG TABLET PO PRN (07:46)
[2022-12-13] MEDS: POLYETHYLENE (MIRALAX) 17 GM PACK PO SCH (07:51)
[2022-12-13] MEDS: NYSTATIN POWDER 15GM BTL EXT SCH ×2 (07:52→21:25)
[2022-12-13] MEDS: METOPROLOL SUCC 50MG EXT REL TAB PO SCH ×2 (07:53→21:24)
[2022-12-13] MEDS: DOCUSATE SODIUM 100 MG CAP PO SCH ×2 (07:53→21:24)
[2022-12-13] MEDS: PANTOprazole 40 MG TAB PO SCH ×2 (07:53→21:24)
[2022-12-13] MEDS: APIXABAN 5 MG TABLET PO SCH ×2 (07:53→21:25)
[2022-12-13] MEDS: SPIRONOLACTONE 12.5 MG TAB PO SCH (07:53)
--- NOTE | 2022-12-13 08:15 | Hospitalist Progress Note ---
Date of Service December 13, 2022 Assessment & Plan (1) Sepsis: (2) Complicated UTI (urinary tract infection): (3) Calculus of left kidney: (4) Atrial fibrillation with rapid ventricular response: Plan: Complicated urinary tract infection Sepsis Gram-negative bacilli bacteremia H/O Recurrent UTI Mild left hydronephrosis --CT ABD:No significant acute traumatic injury to the abdomen or pelvis. -- Blood culture: Gram-negative bacilli Urine culture gram-negative bacilli Received IV fluids Continue IV cefepime-->Rocephin-->will plan to transition to PO abx 48 hours post last temp rise. Will hold Trospium to help with bladder emptying Appreciate urology input s/p ureteral stent placement 12/11 operative urine culture still pending-->cont abx d/c cobb catheter. 12/13: some dysuria, offered pyridium but she declined, stop Rocephin, start omnicef to complete two week course of abx. A-fib RVR In setting of sepsis Mild troponin elevation/Type II TX--likely demand ischemia secondary to sepsis, A-fib RVR --ECHO Sept 23: Left ventricle is normal in size. Mild concentric LVH. Left ventricular wall motion is normal. EF 55 to 60%. Left atrium is mildly dilated. Aortic valve sclerosis moderate, without significant aortic valvular stenosis. Significant mitral regurgitation is absent. --Chest CTA:No significant acute traumatic injury identified involving the chest/thorax. No significant alteration from the previous examination. -- Metoprolol dose increased to 37.5 mg twice a day Monitor and replace electrolytes as needed Hold Eliquis for now with heparin given periprocedurally Metoprolol dose increased to 50 mg twice a day-->good HR control at this point. transfer to medical floor. 12/13: stable, Cont apixaban and Metoprolol Right thyroid nodule --CT Neck:Asymmetric enlargement of the right thyroid lobe with suspected solid nodule and internal calcifications. Recommend nonemergent thyroid ultrasound, if not previously evaluated. Negative outpatient biopsy as per records Normal TSH Follow-up as outpatient Bilateral osteoarthritis of knees Imaging studies showed no acute fractures Appreciate orthopedics input PT OT Fall precautions scheduled tylenol ordered Hypertension chronic, at goal. Continue metoprolol Hold losartan, HCTZ for now given relatively low blood pressure Monitor Hyperlipidemia chronic, stable. on statin H/O PE/DVT restart apixiban tomorrow Bronchial Asthma No signs of exacerbation Monitor DM II Diet-controlled HbA1C 6.3 May 2022 Continue insulin Monitor BGs Endometrial cancer S/P Radiation In remission Morbid Obesity Chronic lymphedema Resume home diuretics as able Functional disability Secondary to comorbidities Fall precautions PT OT DVT Px: apixaban Code Status Full code [facility] (5) Elevated troponin: (6) Fall: (7) Acute shoulder pain: (8) Hip pain: (9) Morbid obesity: (10) Overactive bladder: (11) Asthma: (12) Diabetes mellitus, type II: Admission and Anticipated Discharge Date Admission Date: December 09, 2022 Subjective 77 yo morbidly obese female presents with sepsis 2/2 ureteral obstruction 2/2 ureteral stone. some pain in her side that was of a burning quality. Has felt this before and better with repositioning Some vertigo this afternoon that is also a chronic issue for her She takes meclizine at home and was given this. Review of Systems Review of Systems: All systems are reviewed and negative except as indicated on HPI above. Physical Exam Physical Exam: CONSTITUTIONAL: morbid obesity, vitals as above, generally well-appearing, NAD EYES: normal conjunctivae, no scleral icterus ENT: external ear and nose normal, MMM NECK: trachea midline RESPIRATORY: clear to auscultation bilaterally, no crackles, rales or wheezes, normal respiratory effort CARDIOVASCULAR: regular rate and rhythm, S1 and 2 heard without murmurs, gallops or rubs, no JVD, no peripheral edema CHEST: inspection of chest was normal GASTROINTESTINAL: soft, nontender, ND, no guarding MUSCULOSKELETAL: strength 5/5 throughout, head is normocephalic and atraumatic SKIN: warm and dry NEUROLOGIC: CN 2-12 grossly intact, no sensory deficit, normal cognition, normal speech, no tremor PSYCHIATRIC: alert cooperative and oriented to person, place and time. Euthymic mood, makes good eye contact, language grossly intact, recent and remote memory grossly intact. Results & Data Results & Data Vital Signs (Past 12 Hours) Vital Signs Temp Pulse Resp BP Pulse Ox O2 Del Method 12/13/22 07:41 37.1 C 88 18 174/83 H 95 Room Air 12/12/22 20:29 37.2 C 88 18 112/65 94 Room Air Medications Administered Current Inpatient Medications Acetaminophen (Acetaminophen 500 Mg Tab) 1,000 mg PO Q8 [facility] Stop: 01/10/23 17:44 Last Admin: 12/13/22 06:43 Dose: Not Given Apixaban (Apixaban 5 Mg Tablet) 5 mg PO BID [facility] Stop: 01/11/23 08:59 Last Admin: 12/13/22 07:53 Dose: 5 mg Aspirin (Aspirin 81 Mg Ectab) 81 mg PO PM ANA PAULA Stop: 01/08/23 20:59 Last Admin: 12/12/22 22:01 Dose: 81 mg Atorvastatin Calcium (Atorvastatin 40 Mg Tab) 80 mg PO PM [facility] Stop: 01/08/23 20:59 Last Admin: 12/12/22 21:56 Dose: 80 mg Cefdinir (Cefdinir 300 Mg Cap) 300 mg PO BID [facility] Stop: 12/27/22 08:59 Dextrose (Dextrose 50% 50 Ml Syringe) 25 - 50 ml IV UD PRN; Protocol PRN Reason: Hypoglycemia Protocol Stop: 01/08/23 02:03 Docusate Sodium (Docusate Sodium 100 Mg Cap) 100 mg PO BID [facility] Stop: 01/10/23 20:59 Last Admin: 12/13/22 07:53 Dose: 100 mg Famotidine (Famotidine 20 Mg Tab) 20 mg PO BID PRN PRN Reason: breakthrough heart burn Stop: 01/08/23 02:03 Glucagon (Glucagon For Inj 1 Mg Vial) 1 mg SQ UD PRN; Protocol PRN Reason: Hypoglycemia Protocol Stop: 01/08/23 02:03 Glucose (Glucose 10 Tab/Tube) 4 - 8 tab PO UD PRN; Protocol PRN Reason: Hypoglycemia Treatment Stop: 01/08/23 02:03 Glucose (Glucose 40% Gel 15 Gm Tube) 15 - 30 gm PO UD PRN; Protocol PRN Reason: Hypoglycemia Protocol Stop: 01/08/23 02:03 Promethazine HCl 12.5 mg/ (Sodium Chloride) 50.5 mls @ 202 mls/hr IV Q6H PRN PRN Reason: Nausea And Vomiting Stop: 01/08/23 02:03 Insulin Aspart (Insulin Aspart Per Unit Charge) 0 units SC ACHS [facility] Stop: 01/08/23 02:03 Last Admin: 12/12/22 21:59 Dose: Not Given Metoprolol Succinate (Metoprolol Succ 50mg Ext Rel Tab) 50 mg PO BID [facility] Stop: 01/09/23 20:59 Last Admin: 12/13/22 07:53 Dose: 50 mg Miscellaneous (Carbohydrates For Hypoglycemia ) 15 - 30 gm PO UD PRN PRN Reason: Hypoglycemia Protocol Stop: 01/08/23 02:03 Multivitamins (Multivitamin Tab) 1 tab PO PM ANA PAULA Stop: 01/08/23 20:59 Last Admin: 12/12/22 22:00 Dose: 1 tab Nystatin (Nystatin Powder 15gm Btl) 1 appln EXT BID ANA PAULA Stop: 01/08/23 22:14 Last Admin: 12/13/22 07:52 Dose: 1 appln Pantoprazole Sodium (Pantoprazole 40 Mg Tab) 40 mg PO BID ANA PAULA Stop: 01/08/23 08:59 Last Admin: 12/13/22 07:53 Dose: 40 mg Polyethylene Glycol (Polyethylene (Miralax) 17 Gm Pack) 17 gm PO DAILY ANA PAULA Stop: 01/10/23 17:44 Last Admin: 12/13/22 07:51 Dose: 17 gm Spironolactone (Spironolactone 12.5 Mg Tab) 12.5 mg PO DAILY ANA PAULA Stop: 01/12/23 08:59 Last Admin: 12/13/22 07:53 Dose: 12.5 mg Tramadol HCl (Tramadol Hcl 50 Mg Tablet) 50 - 100 mg PO Q8 PRN PRN Reason: Pain, Severe Stop: 01/08/23 02:03 Last Admin: 12/13/22 07:46 Dose: 100 mg Trolamine Salicylate (Trolamine Salicylate 10% Crm 255 Appln/85 Gm Tube) 1 appln EXT BID PRN PRN Reason: sore achy muscle s of neck/benjamin Stop: 01/11/23 16:50 (6) Fall Encounter type: initial encounter Qualified Code(s): W19.XXXA - Unspecified fall, initial encounter (7) Acute shoulder pain Laterality: right Qualified Code(s): M25.511 - Pain in right shoulder
[2022-12-13] MEDS: CEFDINIR 300 MG CAP PO SCH ×2 (10:08→21:25)
[2022-12-13] MEDS: INSULIN ASPART PER UNIT CHARGE SC SCH ×4 (10:08→20:56)
[2022-12-13] MEDS ORDERED: PHENAZOPYRIDINE HCL 200 MG TAB PO PRN (11:16)
[2022-12-13] MEDS ORDERED: MECLIZINE HCL 25 MG TAB PO PRN (13:08)
[2022-12-13] MEDS: MULTIVITAMIN TAB PO SCH (21:24)
[2022-12-13] MEDS: ASPIRIN 81 MG ECTAB PO SCH (21:24)
[2022-12-13] MEDS: ATORVASTATIN 40 MG TAB PO SCH (21:24)
[2022-12-14] MEDS: ACETAMINOPHEN 500 MG TAB PO SCH ×3 (05:08→20:52)
[2022-12-14] MEDS: POLYETHYLENE (MIRALAX) 17 GM PACK PO SCH (08:28)
[2022-12-14] MEDS: CEFDINIR 300 MG CAP PO SCH ×2 (08:29→20:52)
[2022-12-14] MEDS: APIXABAN 5 MG TABLET PO SCH ×2 (08:29→20:53)
[2022-12-14] MEDS: DOCUSATE SODIUM 100 MG CAP PO SCH ×2 (08:30→20:52)
[2022-12-14] MEDS: PANTOprazole 40 MG TAB PO SCH ×2 (08:30→20:52)
[2022-12-14] MEDS: SPIRONOLACTONE 12.5 MG TAB PO SCH (08:31)
[2022-12-14 08:38] LABS: Hematocrit (blood only) 35.6 % (37.0-47.0); Hemoglobin 10.9 g/dl (12.0-16.0); Mean Corpuscular Hemoglobin 26.3 pg (25.0-34.0); Mean Corpuscular Hgb Conc 30.6 g/dL (32.0-36.0); Mean Corpuscular Volume 85.8 fL (80.0-100.0); Mean Platelet Volume 10.1 fL (9.4-12.4); Platelet Count 231 K/uL (130-400); RDW Standard Deviation 50.3 fL (36.4-46.3); Red Blood Count 4.15 M/uL (4.20-5.40); White Blood Count 7.64 K/ul (4.8-10.8)
[2022-12-14] MEDS: INSULIN ASPART PER UNIT CHARGE SC SCH ×4 (08:45→20:54)
[2022-12-14] MEDS: NYSTATIN POWDER 15GM BTL EXT SCH ×2 (08:49→20:57)
[2022-12-14] MEDS: METOPROLOL SUCC 50MG EXT REL TAB PO SCH ×2 (08:51→20:53)
[2022-12-14 09:59] LABS: BUN Creatinine Ratio 22.6 (10-20); Calcium 8.7 mg/dl (8.6-10.3); Creatinine Clr Calc Pharmacy 122.1 ml/min; Est GFR (African American) 106.9 ml/min; Est GFR (Non-African American) 92.2 ml/min; Potassium 4.1 mmol/L (3.5-5.1)
[2022-12-14] MEDS: traMADol HCL 50 MG TABLET PO PRN (12:59)
[2022-12-14] MEDS: ATORVASTATIN 40 MG TAB PO SCH (20:52)
[2022-12-14] MEDS: ASPIRIN 81 MG ECTAB PO SCH (20:52)
[2022-12-14] MEDS: MULTIVITAMIN TAB PO SCH (20:53)
--- NOTE | 2022-12-14 22:07 | CT Scan Report ---
Exam(s): CT L SPINE EXAM: CT Lumbar Spine Without Intravenous Contrast CLINICAL HISTORY: Reason for exam: back pain, h/o cancer. TECHNIQUE: Axial computed tomography images of the lumbar spine without intravenous contrast. Automated exposure control was utilized for the study. A dose lowering technique was utilized adhering to the principles of ALARA. COMPARISON: CT abdomen and pelvis 12/08/22 FINDINGS: Bones are osteopenic. Vertebral body heights are maintained. There is normal lumbar lordosis. There is no acute fracture or traumatic subluxation. There are no suspicious bone lesions. There is mild multilevel degenerative disc disease, greatest at L3-L4, with vacuum disc phenomenon at this level. There is multilevel facet degeneration, severe in the lower lumbar spine, associated with 3 mm degenerative anterolisthesis of L4 on L5. L1-L2: No canal or foraminal narrowing. L2-L3: Disc bulging and ligamentum flavum thickening minimally narrow the canal. Mild bilateral foraminal narrowing, left greater than right. L3-L4: Disc bulging and posterior disc-osteophyte complex in conjunction with facet arthropathy and ligamentum flavum thickening produce minimal canal narrowing. There is moderate right and severe left foraminal narrowing. L4-L5: Disc bulging/disc-osteophyte complex, facet degeneration, and ligamentum flavum thickening produce minimal canal narrowing. There is severe bilateral foraminal narrowing, right worse than left. L5-S1: Disc bulging and facet arthropathy are present. Spinal canal is patent. There is severe right and mild left foraminal narrowing. Sacroiliac joints are normally aligned. There is no evidence of acute sacral fracture. There are trace effusions at the lung bases with bibasilar atelectasis. IMPRESSION: 1. No acute osseous findings. 2. Degenerative changes, with [id number] findings as noted above. Electronically signed by: Enzo Juárez M.D. 12/14/22 22:07 PM
[2022-12-15] MEDS: traMADol HCL 50 MG TABLET PO PRN (02:34)
[2022-12-15] MEDS: ACETAMINOPHEN 500 MG TAB PO SCH (06:25)
[2022-12-15] MEDS: APIXABAN 5 MG TABLET PO SCH (08:40)
[2022-12-15] MEDS: INSULIN ASPART PER UNIT CHARGE SC SCH ×2 (08:40→12:46)
[2022-12-15] MEDS: POLYETHYLENE (MIRALAX) 17 GM PACK PO SCH (08:40)
[2022-12-15] MEDS: DOCUSATE SODIUM 100 MG CAP PO SCH (08:40)
[2022-12-15] MEDS: CEFDINIR 300 MG CAP PO SCH (08:41)
[2022-12-15] MEDS: SPIRONOLACTONE 12.5 MG TAB PO SCH (08:41)
[2022-12-15] MEDS: PANTOprazole 40 MG TAB PO SCH (08:41)
[2022-12-15] MEDS: METOPROLOL SUCC 50MG EXT REL TAB PO SCH (08:41)
[2022-12-15] MEDS: NYSTATIN POWDER 15GM BTL EXT SCH (08:41)
[2022-12-15 11:06] LABS: Hematocrit (blood only) 36.9 % (37.0-47.0); Hemoglobin 11.6 g/dl (12.0-16.0)
[2022-12-15 11:23] LABS: BUN Creatinine Ratio 20.4 (10-20); Calcium 9.1 mg/dl (8.6-10.3); Creatinine Clr Calc Pharmacy 119.8 ml/min; Est GFR (African American) 106.2 ml/min; Est GFR (Non-African American) 91.7 ml/min; Potassium 4.4 mmol/L (3.5-5.1)
--- NOTE | 2022-12-15 11:32 | Urology Progress Note ---
Date of Service December 15, 2022 Assessment & Plan (1) Sepsis: (2) Complicated UTI (urinary tract infection): (3) Calculus of left kidney: Plan Patient is s/p left ureteral stent placement on 12/11/2022. Urology asked to reevaluate due to hematuria. Hematuria not unexpected given infection, ureteral stent placement, and anticoagulation. Afebrile and hemodynamically stable. Labs reviewed-hemoglobin 11.6 today (10.9 yesterday). Urine/blood cultures with E.coli. Voiding spontaneously, external catheter in place. Bladder scanned today for 0ml. Continue to monitor. Continue antibiotics. Urology will arrange outpatient follow-up to discuss further stone management, no further intervention planned while inpatient. Urology will sign off for now, please call with any questions or concerns. Admission and Anticipated Discharge Date Admission Date: December 09, 2022 Subjective Patient examined at bedside this AM. Awake, resting in bed on arrival. No acute distress. External urinary catheter in place. Has developed some hematuria. Bladder scanned for 0 mL this morning. Denies any bladder pain or pressure. Tolerating the stent with minimal bother. No fevers. Review of Systems Constitutional: as per Subjective / HPI Genitourinary: as per Subjective / HPI Physical Exam Constitutional: no acute distress Respiratory: no respiratory distress and no labored breathing Skin: No visible rashes or lesions to exposed skin areas Neurologic: awake Psychiatric: A+Ox3, euthymic affect Results & Data Vital Signs (Past 12 Hours) Vital Signs Temp Pulse Resp BP Pulse Ox O2 Del Method 12/15/22 08:25 Room Air 12/15/22 07:22 36.5 C 82 18 114/66 93 Room Air PG Care Time/CCT Total # of Minutes Spent Total Time Spent with Patient: Total time spent is greater than 50% in coordination of care (as documented) at patient's floor/unit and/or counseling patient: Coding Level of Care Code 87816 SUB INP/OBS CARE 2/35MIN Diagnoses Sepsis A41.9 Complicated UTI (urinary tract infection) N39.0 Calculus of left kidney N20.0
--- NOTE | 2022-12-15 18:18 | Discharge Summary ---
Date of Service December 15, 2022 Admission HPI Per Admitting Provider History obtained from patient, family, and records. Medical history significant for A-fib on Eliquis, hypertension, hyperlipidemia, history of PE DVT as per records, bronchial asthma, DM2 diet-controlled, endometrial cancer status post radiation, recurrent UTIs, GERD, chronic anemia (baseline hemoglobin of 11), chronic lymphedema, osteoarthritis. Last confinement May 2020 for new onset A-fib and E. coli UTI status post antibiotic Rx. Patient seen by Cardiology. Patient discharged on beta-iker and Eliquis Rx. No outpatient follow-up Cardiology appointment has been scheduled for patient since discharge patient functional difficulties as per outpatient PCP note. 2 weeks ago, patient had UTI symptoms for which outpatient cefdinir course prescribed. No UA obtained. UTI symptoms never really improved as per patient even after completing antibiotic course. Persistent urinary frequency symptoms. Patient lost her balance and fell on her right side on the way back to her bed from the bathroom. No head trauma or syncope no chest pain, SOB. Achy right hip pain. Patient brought to the ER for evaluation. Patient noted to be in rapid A-fib upon arrival at the ER. IV cefepime administered for sepsis. MEDICAL HISTORY: As above. SURGICAL HISTORY: Bilateral tubal ligation, cholecystectomy, appendectomy, D&C, FAMILY HISTORY: Heart disease, COPD. PERSONAL SOCIAL HISTORY: Nonsmoker, no chronic intake of alcoholic beverages. 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 Lives by herself. Admission Exam Per Admitting Provider GENERAL: Comfortable, pleasant, morbidly obese, no respiratory distress SKIN: Pallor, warm HEENT: Bespectacled, pale palpebral conjunctivae, no ptosis, dry buccal mucosa NECK : Supple, short neck, no tenderness CHEST : Decreased breath sounds, no tenderness HEART : Irregular, no obvious murmurs ABDOMEN: distention, nontender EXTREMITIES : Bilateral LE swelling , no LE tenderness, no other conspicuous deformities noted NEUROLOGIC : Coherent, no facial asymmetry, gait and stance not assessed Principal Diagnosis Sepsis Complicated UTI E. coli bacteremia A-fib with RVR Discharge Exam Constitutional WD/WN, vitals as above + obese Respiratory normal respiratory effort, lungs clear to auscultation Cardiovascular Rate/Rhythm: regular rate and regular rhythm Vessels: normal peripheral pulses Extremities: no edema Gastrointestinal (Abdomen) Percussion/Palpation: abdomen soft; abdomen nontender Skin no rashes, warm and dry Neurologic no focal motor deficits Psychiatric A+Ox3, euthymic affect Discharge Data Allergies Allergy/AdvReac Type Severity Reaction Status Date / Time doxycycline Allergy Intermediate SWELLING Verified 03/12/21 07:09 codeine Allergy Mild PER Verified 03/12/21 07:09 PATIENT "MADE HER MARY ANNE CRAZY" WHEN SHE TOOK ALOT Sulfa (Sulfonamide Allergy Mild Gastrointestinal Verified 03/12/21 07:09 Antibiotics) Upset tetracycline Allergy Mild SWELLING Verified 03/12/21 07:09 TO EYES NARINDER Inhibitors AdvReac Intermediate cough Verified 03/12/21 07:09 Consultations 12/09/22 01:04 Consult Orthopedic Surgery Routine 12/09/22 02:04 Consult Cardiology Routine Consult Urology Routine Procedures Performed Operation Date: 12/11/22 08:20 Actual Procedures p Cystoscopy, Left Retrograde Pyelogram, Left Stent Placement(Not Applicable) - Darinel Thorpe MD Ordered Studies Laboratory Results WBC 7.64 K/ul (4.8-10.8) 12/14/22 08:10 RBC 4.15 M/uL (4.20-5.40) L 12/14/22 08:10 Hgb 11.6 g/dl (12.0-16.0) L 12/15/22 10:41 POC Hgb 12.2 g/dl (12.0-16.0) 12/08/22 19:50 Hct 36.9 % (37.0-47.0) L 12/15/22 10:41 POC Hct 36 % (37-47) L 12/08/22 19:50 MCV 85.8 fL (80.0-100.0) 12/14/22 08:10 MCH 26.3 pg (25.0-34.0) 12/14/22 08:10 MCHC 30.6 g/dL (32.0-36.0) L 12/14/22 08:10 RDW Std Deviation 50.3 fL (36.4-46.3) H 12/14/22 08:10 RDW Coeff of Rodolfo 16.0 % (11.5-14.5) H 12/14/22 08:10 Plt Count 231 K/uL (130-400) 12/14/22 08:10 MPV 10.1 fL (9.4-12.4) 12/14/22 08:10 Immature Gran % (Auto) 0.5 % 12/09/22 08:36 Neut % (Auto) 85.0 % 12/09/22 08:36 Lymph % (Auto) 7.2 % 12/09/22 08:36 [place] % (Auto) 7.0 % 12/09/22 08:36 Eos % (Auto) 0.1 % 12/09/22 08:36 Baso % (Auto) 0.2 % 12/09/22 08:36 Neut # (Auto) 12.61 K/uL (1.40-6.50) H 12/09/22 08:36 Lymph # (Auto) 1.06 K/uL (1.2-3.4) L 12/09/22 08:36 [place] # (Auto) 1.03 K/uL (0.11-0.59) H 12/09/22 08:36 Eos # (Auto) 0.01 K/uL (0-0.50) 12/09/22 08:36 Baso # (Auto) 0.03 K/uL (0-0.2) 12/09/22 08:36 Immature Gran # (Auto) 0.08 K/uL (0.01-0.20) 12/09/22 08:36 PT 12.1 Seconds (9.0-12.0) H 12/08/22 19:44 INR 1.1 (0.9-1.1) 12/08/22 19:44 APTT 48.4 Seconds (21.0-31.0) H* 12/11/22 08:15 PTT Ratio 1.8 12/11/22 08:15 POC Sodium 134 mmol/L (135-144) L 12/08/22 19:50 Sodium 137 mmol/L (136-145) 12/15/22 10:41 POC Potassium 3.4 mmol/L (3.3-5.0) 12/08/22 19:50 Potassium 4.4 mmol/L (3.5-5.1) 12/15/22 10:41 POC Chloride 93 mmol/L (101-112) L 12/08/22 19:50 Chloride 103 mmol/L (98-107) 12/15/22 10:41 Carbon Dioxide 27 mmol/L (21-32) 12/15/22 10:41 POC Total CO2 30 mmol/L (24-31) 12/08/22 19:50 Anion Gap 7 (3-11) 12/15/22 10:41 POC Anion Gap 15.0 mmol/L (16-25) L 12/08/22 19:50 POC BUN 14 mg/dl (7-18) 12/08/22 19:50 BUN 11 mg/dl (6-23) 12/15/22 10:41 Creatinine 0.54 mg/dl (0.6-1.2) L 12/15/22 10:41 POC Creatinine 0.7 mg/dl (0.6-1.3) 12/08/22 19:50 Est Cr Clr Drug Dosing 119.8 ml/min 12/15/22 10:41 Est GFR ( Amer) 106.2 ml/min 12/15/22 10:41 Est GFR (Non-Af Amer) 91.7 ml/min 12/15/22 10:41 BUN/Creatinine Ratio 20.4 (10-20) H 12/15/22 10:41 Glucose 140 mg/dl (70-99(Fasting)) H 12/15/22 10:41 POC Glucose 129 mg/dl (70-99) H 12/15/22 11:47 POC Glucose (other) 145 mg/dl (70-99) H 12/08/22 19:50 Lactate 2.0 mmol/L (0.4-2.0) 12/08/22 23:02 Calcium 9.1 mg/dl (8.6-10.3) 12/15/22 10:41 POC Ioniz Calcium [place] 1.12 mmol/l (1.12-1.32) 12/08/22 19:50 Magnesium 2.1 mg/dl (1.7-2.4) 12/08/22 23:02 Total Bilirubin 1.4 mg/dl (0.2-1.0) H 12/08/22 19:44 AST 14 U/L (13-39) 12/08/22 19:44 ALT 13 U/L (7-52) 12/08/22 19:44 Alkaline Phosphatase 114 U/L (34-104) H 12/08/22 19:44 Total Creatine Kinase 114 U/L (26-192) 12/08/22 19:44 Troponin I High Sens 137.6 pg/ml (0-14) H* 12/09/22 08:36 Total Protein 6.4 gm/dl (6.0-8.3) 12/08/22 19:44 Albumin 3.5 gm/dl (3.4-5.0) 12/08/22 19:44 Globulin 2.9 gm/dl (2.5-4.0) 12/08/22 19:44 Albumin/Globulin Ratio 1.2 (0.9-2) 12/08/22 19:44 Procalcitonin 0.41 ng/ml (0-0.5) 12/08/22 23:02 TSH 0.642 uIu/ml (0.300-4.500) 12/09/22 08:36 Urine Color Yellow 12/08/22 22:23 Urine Appearance Cloudy (Clear) A 12/08/22 22: Urine pH 6.0 (4.5-7.5) 12/08/22 22:23 Ur Specific [place] 1.035 (1.000-1.030) H 12/08/22 22:23 Urine Protein 1+ (Negative) H 12/08/22 22:23 Urine Glucose (UA) Negative (Negative) 12/08/22 22: Urine Ketones Negative (Negative) 12/08/22 22: Urine Blood 2+ (Negative) H 12/08/22 22:23 Urine Nitrite Positive (Negative) A 12/08/22 22: Urine Bilirubin Negative (Negative) 12/08/22 22: Urine Urobilinogen Negative (Negative) 12/08/22 22:23 Ur Leukocyte Esterase 2+ (Negative) H 12/08/22 22:23 Urine WBC (Auto) >30 /hpf (0-5) H 12/08/22 22:23 Urine RBC (Auto) 10-30 /hpf (0-4) H 12/08/22 22:23 U Hyaline Cast (Auto) 0 /lpf (0-5) 12/08/22 22:23 U Epithel Cells (Auto) 5-10 /lpf (0-5) H 12/08/22 22:23 Urine Bacteria (Auto) 4+ (Negative) H 12/08/22 22:23 Enterobacterales (PCR) DETECTED (NotDetected) A 03/28/23 23:02 E. coli (PCR) DETECTED (NotDetected) A 12/08/22 23:02 Hepatitis C Ab (EIA) NON-REACTIVE (NON-REACTIVE) 12/08/22 23:02 Hep C Ab Signal/Cutoff 0.03 (<1.00) 12/08/22 23:02 SARS-CoV-2, RNA, NAAT NEGATIVE (NEGATIVE) 12/15/22 09:45 mcr-1 [place] Res Gene PCR Not Detected (NotDetected) 12/08/22 23:02 blaIMP Car res Gene PCR Not Detected (NotDetected) 12/08/22 23:02 KPC-Carbap Res Gene PCR Not Detected (NotDetected) 12/08/22 23:02 blaNDM Car Res Gene PCR Not Detected (NotDetected) 12/08/22 23:02 OXA-48 Carbapenem Resis Gene (PCR) Not Detected (NotDetected) 12/08/22 23:02 blaVIM Car Res Gene PCR Not Detected (NotDetected) 12/08/22 23:02 CTX-M Gene Resistance (PCR) Not Detected (NotDetected) 12/08/22 23:02 Bld Cult ID Panel PCR See PCR Comment (NotDetected) 12/08/22 23:02 Impressions Femur X-Ray 12/08/22 19:34 RIGHT FEMUR 3 VIEWS CLINICAL HISTORY: Fall. Right hip pain. FINDINGS: AP, frog-leg, and lateral views of the right femur are obtained. No prior studies are available for comparison at the time of dictation. The skeletal structures are osteopenic. There is no radiographic evidence of right femoral fracture. The visualized right hemipelvis appears intact. Degenerative change is noted in the right hip and knee joints. Sclerotic change is noted in the right sacroiliac joint. The overlying soft tissues are within normal limits. There is atherosclerotic calcification of the femoral artery. Tiny surgical clips project over the pelvis. IMPRESSION: There is no radiographic evidence of right femoral fracture. Electronically signed by: Veto De La Cruz M.D. 12/08/2022 9:50 PM Abdomen/Pelvis CT 12/08/22 19:35 Exam(s): CT ABDOMEN + PELVIS With Contrast EXAM: CT Abdomen and Pelvis With Intravenous Contrast CLINICAL HISTORY: fall, back /hip pain. TECHNIQUE: Axial computed tomography images of the abdomen and pelvis with intravenous contrast. Automated exposure control was utilized for the study. A dose lowering technique was utilized adhering to the principles of ALARA. COMPARISON: CT abdomen and pelvis without contrast dated 12/19/2017 FINDINGS: Lung bases: Unremarkable. No mass. No consolidation. ABDOMEN: Liver: The liver appears intact without evidence for acute traumatic injury. Gallbladder and bile ducts: The gallbladder is not identified and is presumed surgically absent. No ductal dilation. Pancreas: Unremarkable. No mass. No ductal dilation. Spleen: The spleen is intact without evidence for traumatic injury. Adrenals: Unremarkable. No significant alteration in appearance of the right adrenal nodule measuring 16 mm the left adrenal gland is unremarkable. Kidneys and ureters: The kidneys demonstrate normal enhancement without evidence for traumatic injury. There is mild hydronephrosis and proximal left hydroureter with multiple calcifications noted in the left collecting system, measuring up to 2.1 cm in the renal pelvis. Incidental cortical cyst involving the lateral aspect of the left kidney measuring 2.3 cm. Stomach and bowel: Unremarkable. No traumatic bowel injury. No bowel obstruction. PELVIS: Appendix: No findings to suggest acute appendicitis. Bladder: Unremarkable. No mass. Reproductive: Unremarkable as visualized. ABDOMEN and PELVIS: Intraperitoneal space: Unremarkable. No free air. No significant fluid collection. Retroperitoneal space: Unremarkable. No retroperitoneal hematoma. Bones/joints: Similar degenerative changes of the included thoracolumbar spine. No compression fracture. The pelvic bones and proximal femurs are intact. No dislocation. Soft tissues: No significant overlying acute traumatic soft tissue abnormality. Dependent edema in the anterior pannus incidentally noted. Suspected repair of the previously noted umbilical hernia. Vasculature: Atherosclerotic calcification of the normal caliber aorta, stable. No acute periaortic abnormality identified. No abdominal aortic aneurysm. Lymph nodes: Unremarkable. No enlarged lymph nodes. IMPRESSION: 1. Similar degenerative changes of the included thoracolumbar spine. No compression fracture. The pelvic bones and proximal femurs are intact. 2. No significant acute traumatic injury to the abdomen or pelvis. Incidental findings, as noted above. Electronically signed by: Gerald Muñiz MD 12/08/22 21:[address] 12/08/22 19:35 Exam(s): CT C SPINE EXAM: CT Cervical Spine Without Intravenous Contrast CLINICAL HISTORY: Fall TECHNIQUE: Axial computed tomography images of the cervical spine without intravenous contrast. Automated exposure control was utilized for the study. A dose lowering technique was utilized adhering to the principles of ALARA. COMPARISON: No relevant prior studies available. FINDINGS: Vertebrae: The vertebral bodies are intact without acute fracture. No anterolisthesis or retrolisthesis noted. There is straightening of the normal cervical lordosis. The pedicles, facet joints and transverse processes are intact. There is heterotopic calcification along the posterior margin of the C7 spinous process. The spinous processes are otherwise intact. Discs/spinal canal/neural foramina: Disc space narrowing with marginal hypertrophic changes noted at several levels throughout the cervical spine. No significant osseous central canal stenosis. Soft tissues: Unremarkable. Thyroid: There is asymmetric enlargement of the right thyroid with internal calcifications a probable solid nodule, estimated at 3 cm. IMPRESSION: 1. No acute osseous traumatic injury or significant abnormal alignment involving the cervical spine. 2. Heterotopic calcification along the posterior margin of the C7 spinous processes presumed either prior traumatic injury or minimal calcification of the nuchal ligament. Please correlate with clinical findings however. 3. Asymmetric enlargement of the right thyroid lobe with suspected solid nodule and internal calcifications. Recommend nonemergent thyroid ultrasound, if not previously evaluated. Electronically signed by: Gerald Muñiz MD 12/08/22 21:[address] 12/08/22 19:35 Exam(s): CT CHEST With Contrast IV Amt: 84 ml optiray 350 EXAM: CT Chest With Intravenous Contrast CLINICAL HISTORY: fall, back /hip pain. TECHNIQUE: Axial computed tomography images of the chest with intravenous contrast. Automated exposure control was utilized for the study. A dose lowering technique was utilized adhering to the principles of ALARA. CONTRAST: Patient received 84 ml optiray 350 of IV contrast COMPARISON: CTA chest dated 06/05/2022 FINDINGS: Lungs: Similar subsegmental changes in both lungs are similar in appearance to the previous examination. No significant pulmonary contusive injury. Pleural space: Unremarkable. No pneumothorax. No significant effusion. Heart: The cardiac chambers are stable and remain mildly enlarged. Similar coronary artery calcification. No significant pericardial effusion. Mediastinum: Small hiatal hernia. No mediastinal traumatic injury. Thyroid: Asymmetric enlargement of the right thyroid gland with internal calcifications. Bones/joints: The thoracic vertebral bodies are stable in appearance when compared to the previous examination with similar mild loss of height noted at T3 and T4 levels. Similar remote right lateral rib fractures. Similar degenerative changes of the shoulder with probable remote traumatic injury of the proximal right humerus. No acute osseous abnormality. No dislocation. Soft tissues: Unremarkable. No significant overlying acute traumatic soft tissue abnormality. Vasculature: Atherosclerotic calcification of the aorta. No evidence for acute traumatic injury or alteration. Lymph nodes: Unremarkable. No enlarged lymph nodes. IMPRESSION: No significant acute traumatic injury identified involving the chest/thorax. No significant alteration from the previous examination. Electronically signed by: Gerald Muñiz MD 12/08/22 22:[address] 12/08/22 19:35 Exam(s): CT HEAD Without Contrast EXAM: CT Head Without Intravenous Contrast CLINICAL HISTORY: Fall. TECHNIQUE: Axial computed tomography images of the head/brain without intravenous contrast. Automated exposure control was utilized for the study. A dose lowering technique was utilized adhering to the principles of ALARA. COMPARISON: No relevant prior studies available. FINDINGS: Limitations: There is motion artifact through the mid to inferior calvarium, which degrades image quality on multiple image slices. Brain: No definite intracranial hemorrhage; evaluation for subtle extra-axial pathology along the margins of the parenchyma is limited in regions of streak motion artifact. No significant mass effect. Mild periventricular deep white matter hypodense changes noted. Ventricles: Unremarkable. No midline shift or ventriculomegaly. Bones/joints: No definite skull fracture. Soft tissues: Unremarkable. Vasculature: Atherosclerotic calcification of the cavernous and supraclinoid internal carotid arteries. Sinuses: Unremarkable as visualized. No acute sinusitis. Mastoid air cells: Unremarkable as visualized. No mastoid effusion. IMPRESSION: No definite acute intracranial process identified, accounting for limitations with motion artifact. Electronically signed by: Gerald Muñiz MD 12/08/22 21:15 PM Shoulder X-Ray 12/08/22 19:40 RIGHT SHOULDER 3 VIEWS CLINICAL HISTORY: Fall. Right shoulder injury. FINDINGS: 3 views of the right shoulder are compared to study dated 11/10/2015. The skeletal structures are osteopenic. There is no radiographic evidence of acute fracture or dislocation. There is chronic posttraumatic deformity of the right proximal humerus. 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 Productive degenerative changes noted at the acromioclavicular joint. The overlying soft tissues are within normal limits. Chronic parenchymal changes are noted in the right lung. Chronic right-sided rib fractures are noted. IMPRESSION: 1. No acute bony abnormality is identified. 2. Chronic posttraumatic and degenerative changes as above. Electronically signed by: Veto De La Cruz M.D. 12/08/2022 9:19 PM Retrograde Pyelogram 12/11/22 15:04 FL retrograde includes kub CLINICAL HISTORY: LEFT SIDE STENT[nephrolithiasis COMPARISON STUDY: CT abdomen and pelvis 11/30/2022 FLUOROSCOPY TIME: 15.4 seconds FLUOROSCOPY IMAGES: 1 EXPOSURE DOSE: 7.40 mGy FINDINGS: Proximal portion of a left renal stent appears to be in satisfactory positioning. The distal portion of the stent is not imaged. Ill-defined contrast noted within the left renal collecting system. IMPRESSION: Fluoroscopic assistance as above. ACT 112: Negative or not required by law. Electronically signed by: Lebron Reyes M.D. 12/11/2022 3:[address] 12/14/22 15:28 Exam(s): CT L SPINE EXAM: CT Lumbar Spine Without Intravenous Contrast CLINICAL HISTORY: Reason for exam: back pain, h/o cancer. TECHNIQUE: Axial computed tomography images of the lumbar spine without intravenous contrast. Automated exposure control was utilized for the study. A dose lowering technique was utilized adhering to the principles of ALARA. COMPARISON: CT abdomen and pelvis 12/08/22 FINDINGS: Bones are osteopenic. Vertebral body heights are maintained. There is normal lumbar lordosis. There is no acute fracture or traumatic subluxation. There are no suspicious bone lesions. There is mild multilevel degenerative disc disease, greatest at L3-L4, with vacuum disc phenomenon at this level. There is multilevel facet degeneration, severe in the lower lumbar spine, associated with 3 mm degenerative anterolisthesis of L4 on L5. L1-L2: No canal or foraminal narrowing. L2-L3: Disc bulging and ligamentum flavum thickening minimally narrow the canal. Mild bilateral foraminal narrowing, left greater than right. L3-L4: Disc bulging and posterior disc-osteophyte complex in conjunction with facet arthropathy and ligamentum flavum thickening produce minimal canal narrowing. There is moderate right and severe left foraminal narrowing. L4-L5: Disc bulging/disc-osteophyte complex, facet degeneration, and ligamentum flavum thickening produce minimal canal narrowing. There is severe bilateral foraminal narrowing, right worse than left. L5-S1: Disc bulging and facet arthropathy are present. Spinal canal is patent. There is severe right and mild left foraminal narrowing. Sacroiliac joints are normally aligned. There is no evidence of acute sacral fracture. There are trace effusions at the lung bases with bibasilar atelectasis. IMPRESSION: 1. No acute osseous findings. 2. Degenerative changes, with [id number] findings as noted above. Electronically signed by: Enzo Juárez M.D. 12/14/22 22:07 PM Hospital Course (1) Sepsis: (2) Complicated UTI (urinary tract infection): (3) Calculus of left kidney: (4) Atrial fibrillation with rapid ventricular response: (5) Elevated troponin: (6) Fall: (7) Acute shoulder pain: (8) Hip pain: (9) Morbid obesity: (10) Overactive bladder: (11) Asthma: (12) Diabetes mellitus, type II: 77-year-old female with PMH A-fib on Eliquis, hypertension, hyperlipidemia, history of PE DVT as per records, bronchial asthma, DM2 diet-controlled, endometrial cancer status post radiation, recurrent UTIs, GERD, chronic anemia (baseline hemoglobin of 11), chronic lymphedema, osteoarthritis who presented on 12/08 for evaluation of ongoing UTI symptoms and fall. Patient found to be septic due to complicated urinary tract infection with small left renal calculi and A-fib with RVR. CT ABD/pelvis showed mild hydronephrosis and proximal left hydroureter with multiple calcifications noted in the left collecting system. Patient underwent left ureteral stent placement on 12/11. Urine and blood cultures grew E. coli, patient initially started on cefepime which was transitioned to Rocephin and subsequently to p.o. cefdinir which patient will need to complete 2 weeks total of antibiotics from negative blood cultures until 12/24/2022. Patient noted to have hematuria on the day of discharge, Hgb was checked and found to be stable at 11.6. Urology reevaluated the patient --hematuria expected in the setting of stent placement, infection, anticoagulation. Eliquis okay to continue. For A-fib with RVR in the setting of sepsis, cardiology was consulted. Patient's metoprolol succinate was increased to 50 mg twice daily. She did receive IV heparin periprocedurally and was transition back to Eliquis. High-sensitivity troponin was elevated, likely due to demand ischemia due to sepsis and A-fib with RVR. Due to hypotension, losartan and HCTZ were discontinued. CT neck noted incidental finding of right thyroid nodule. TSH WNL. Had biopsy in 2011 that was negative. Continue outpatient follow-up. Other chronic medical conditions: Osteoarthritis -history of chronic osteoarthritis, patient complained of bilateral knee pain and right shoulder pain during admission. Was evaluated by orthopedics for possible injection however due to active UTI and bacteremia, this was deferred. Hx PE/DVT -Eliquis as mentioned above DM type II -typically diet controlled, received NovoLog per protocol while hospi talized. Last A1c 6.5 05/2022 Lymphedema-controlled on spironolactone Total Time Total Time Spent Total Time Spent (In Minutes): 45 Discharge Plan Discharge Items Patient Disposition: Transfer Longterm Fac Reason For Visit: UTI, Flank Pain Discharge Diagnosis: Sepsis, Complicated UTI Renal Calculi Atrial Fibrillation with RVR Activity: As commented below Activity Comment: as per PT/OT recs Non-emergency contact: Primary Care Provider Call non-emergency contact if: you have any medication questions, your symptoms worsen and your pain is not controlled Follow-up/Referrals: Pavan Mckeon MD [Primary Care Provider] - Diet: Carb Consistent or DM2 and Heart Healthy Addtl Attending Provider Instructions: Patient presented on 12/09/2022 for evaluation of fall, flank pain, UTI symptoms. Patient found to be septic due to complicated urinary tract infection with a small left renal calculi. She also had atrial fibrillation with RVR. Urine and blood cultures grew E. coli. Patient initially started on cefepime which was transitioned to Rocephin and subsequently PO cefdinir. S/p left ureteral stent placement on 12/11 Patient will need to complete 2 weeks total of antibiotics from negative blood cultures -- cefdinir 300 mg twice daily until 12/24/22. For A-fib with RVR, metoprolol succinate was increased to 50 mg twice daily. Patient did receive IV heparin periprocedurally and was subsequently transitioned back to Eliquis. Due to hypotension, losartan and HCTZ were discontinued. Addtl Fur Clipper Provider Instructions: The surgery you had was left ureteral stent placement. If you are having discomfort from your stent, it is ok to take tylenol alternating with ibuprofen. You can also take AZO, which can be purchased [id number] at the drugstore. Be aware this turns your urine a bright orange color. If you are prescribed a stronger medication you can take this according to instructions on the label. The stent will need to be removed. If you still have a kidney stone in place, we will make sure this is treated prior to stent removal. As long as the stent is in place, you may see some blood in the urine. You may have pain in your side when you urinate. The urology office will call you within a couple days of discharge to arrange an outpatient office visit. If you have not heard from us after 2 days, you can call the office at [phone]: Pending Studies at Discharge: No Stand-Alone Forms: My [facility] Money[employer] Skilled Items Patient informed of condition?: Yes DNR: No Discharge Level of Care: Skilled Communicable Disease: No Discharge Prognosis: Stable Lines: None Urinary Catheter: No Medications and DC Order Prescriptions: New metoprolol succinate 50 mg Tablet Extended Release 24 Hr 50 mg PO BID Qty: 60 0RF acetaminophen [Tylenol Extra Strength] 500 mg Tablet 1,000 mg PO Q8 Qty: 1 0RF cefdinir 300 mg Capsule 300 mg PO BID Qty: 19 0RF docusate sodium 100 mg Capsule 100 mg PO BID Qty: 1 0RF polyethylene glycol 3350 [Miralax] 17 gram Powder In Packet 17 g PO DAILY Qty: 14 0RF phenazopyridine [Pyridium] 200 mg Tablet 200 mg PO TID PRN (Reason: urinary pain) Qty: 7 0RF Continued atorvastatin 80 mg tablet 80 mg PO PM azelastine 0.15 % (205.5 mcg) spray,non-aerosol 1 spray intranasal BID PRN (Reason: Congestion) Rx Instructions: administer into each nostril lansoprazole 30 mg tablet,disintegrat, delay rel 30 mg PO BID levalbuterol HCl [Xopenex] 0.31 mg/3 mL solution for nebulization 0.31 mg inhalation DAILY PRN (Reason: Shortness Of Breath) aspirin [Adult Aspirin Regimen] 81 mg tablet,delayed release (DR/EC) 81 mg PO PM multivitamin [Daily Multi-Vitamin] Tablet 1 tab PO PM meclizine 25 mg tablet 25 mg PO TID PRN (Reason: Dizziness) Eliquis 5 mg Tablet 5 mg PO BID Qty: 60 0RF spironolactone 25 mg Tablet 12.5 mg PO DAILY Qty: 30 0RF famotidine 20 mg Tablet 20 mg PO BID PRN (Reason: breakthrough heart burn) Qty: 60 0RF tramadol 50 mg tablet 50 - 100 mg PO Q8 PRN (Reason: Pain, Severe) Discontinued hydrochlorothiazide 25 mg tablet 25 mg PO QAM losartan 25 mg tablet 25 mg PO PM trospium 60 mg capsule,extended release 24hr 60 mg PO PM metoprolol succinate 25 mg Tablet Extended Release 24 Hr 25 mg PO BID Qty: 60 0RF Discharge Orders: Discharge Order (Routine); Ordered 12/15/22 Ordered By: Estefany Garcia Admission Data Admit Date/Time: 12/09/22 00:59 Attending Provider: Grisel Lino Admit Provider: Oscar Cornelius Primary Care Provider: Pavan Mckeon Other Providers: Ernesto Solo [facility] ; [place] ; Oscar Cornelius ; Gerald Becerra ; Angela Padilla ; Vincenzo Coles ; Reginald Menjivar ; Nikhil Coreas ; Robert Flores ; Jeramy Ramírez ; Mika Obrien ; Nancy Donohue ; Ning Ansari ; Angela Rosario ; Chago Hancock ; Radha Mcclelland Other Interventions: Discharge Summary Assessment (RN) Last Done: 12/15/22 14:22
== END 2022-12-15 14:23 | DRG 853 ==
LOC: ED 19:16 → EDINP 12-09 00:59 → SUATTDRO 12-09 00:59 → 2S 12-09 02:03 → 3W 12-12 18:21

== ENCOUNTER 2023-10-21 19:29 | Inpatient (IN) ==
[2023-10-21 20:34] LABS: Basophils # (auto) 0.02 K/uL (0.00-0.20); Basophils % (auto) 0.2 %; Eosinophils # (auto) 0.02 K/uL (0.00-0.50); Eosinophils % (auto) 0.2 %; Hemoglobin 9.6 g/dl (12.0-16.0); Immature Granulocytes # (auto) 0.07 K/uL (0.01-0.20); Immature Granulocytes % (auto) 0.6 %; Lymphocytes # (auto) 1.04 K/uL (1.20-3.40); Lymphocytes % (auto) 8.4 %; Mean Corpuscular Hemoglobin 27.4 pg (25.0-34.0); Mean Corpuscular Volume 88.3 fL (80.0-100.0); Mean Platelet Volume 9.7 fL (9.4-12.4); Monocytes # (auto) 0.76 K/uL (0.11-0.59); Monocytes % (auto) 6.1 %; Neutrophils # (auto) 10.52 K/uL (1.40-6.50); Neutrophils % (auto) 84.5 %; Platelet Count 293 K/uL (130-400); RDW Coefficient of Variation 15.4 % (11.5-14.5); RDW Standard Deviation 49.5 fL (36.4-46.3); Red Blood Count 3.51 M/uL (4.20-5.40); White Blood Count 12.43 K/ul (4.8-10.8)
[2023-10-21 20:56] LABS: Albumin Level 2.9 gm/dl (3.4-5.0); Bilirubin Direct 0.1 mg/dl (0-0.2); Bilirubin,Total 0.6 mg/dl (0.2-1.0); Calcium 8.4 mg/dl (8.6-10.3); Creatinine Clr Calc Pharmacy 108.6 ml/min; Est GFR (African American) 104.9 ml/min; Est GFR (Non-African American) 90.5 ml/min; Magnesium 1.8 mg/dl (1.7-2.4); Potassium 4.1 mmol/L (3.5-5.1); Total Protein 5.8 gm/dl (6.0-8.3)
[2023-10-21 21:00] LABS: Troponin I High Sensitivity 4.3 pg/ml (0-14)
[2023-10-21] MEDS: CEFEPIME 2,000 MG/20 ML VIAL IV STA (21:01)
[2023-10-21] MEDS: SODIUM CHLORIDE 0.9% 1,000 ML IV SCH (21:02)
[2023-10-21] MEDS: OPTIRAY 320 500ml IV ONE (23:00)
--- NOTE | 2023-10-21 23:38 | Emergency Department Note ---
Impression & Plan Fever, Chronic indwelling Cobb catheter ED Provider Note ED Provider Note NAME: NAKIA CESPEDES AGE:78 SEX: Female : 1945 ARRIVES VIA: EMS INFORMANT: Patient ED PROVIDER(s): Paola King DO CHIEF COMPLAINT: Fever HPI: This is a 78-year-old female who presents due to concern for fevers this evening. Patient with recent cystoscopy by urology due to recurrent UTIs, as well as kidney and bladder stones. Patient has already been taking an antibiotic. She does have an indwelling Cobb catheter. Patient with increasing weakness and fatigue, as well as decreased appetite. She denies overt vomiting or diarrhea. She has noticed sediment in the Cobb catheter, no obvious bleeding. She denies any chest pain, shortness of breath, cough or cold symptoms. Patient states her fever tonight went to 100.4. She states she was told by urology if she had all develops a fever to come to the ER for additional evaluation. Family at bedside states her symptoms are similar to when she previously became septic. PAST MEDICAL HISTORY:See Below PAST SURGICAL HISTORY:See Below FAMILY HISTORY:See Below SOCIAL HISTORY:See Below HOME MEDICATIONS:See Below ALLERGIES:See Below VITALS:See Below PHYSICAL EXAMINATION: GENERAL: alert, well appearing, well nourished, no distress, non-toxic, BMI 46 EYE EXAM: normal conjunctiva, PERRL and EOM's grossly intact OROPHARYNX: no exudate, no erythema, lips, buccal mucosa, and tongue normal and mucous membranes are moist NECK: supple, no nuchal rigidity, no adenopathy, non-tender LUNGS: Clear to auscultation. Normal chest wall mechanics, no w/r/r HEART: no murmurs, S1 normal and S2 normal ABDOMEN: abdomen soft, non-tender, normo-active bowel sounds, no masses, no rebound or guarding. BACK: Back is symmetrical on inspection and there is no deformity, no midline tenderness, no CVA tenderness. SKIN: no rashes, petechiae, orbruising UPPER EXTREMITIES: upper extremities are grossly normal. FROM, nml pulses b/l. LOWER EXTREMITIES: No pitting edema. FROM, nml pulses b/l. NEURO EXAM: Normal sensorium, cranial nerves II-XII grossly intact, normal speech, no facial droop,nogross weakness of arms, no gross weakness of legs. Gross sensation intact. No ataxia. Vital Signs: reviewed and remarkable Differential Diagnosis: viral syndrome, otitis, pharyngitis, pneumonia, influenza, meningitis, urinary tract infection, sepsis, bacteremia, as well as others were entertained. MEDICAL DECISION MAKING: This is a 78 yo female who presents to the ER with concern for fever, fatigue, and possible UTI which she has had previously. She has an indwelling cobb and had office cystoscopy last week. VS stable and afebrile here on arrival. Labs drawn and sent, IV established, EKG and CXR performed and interpreted at bedside, and patient placed on telemetry. She was sent for CT a/p to evaluate for stones/pyelo which she has had previously. No other evidence of infection on CT, cxr, or biofire. Given risks for recurrent UTI and evolving symptoms despite outpatient antibiotic treatment, case discussed with the hospitalist for additional evaluation and mgmt. Consultation(s): 0120: Discussed with Dr. Preito, [facility] hospitalist, for additional evaluation and mgmt. ER Treatment Provided: See below Diagnostics Interpreted By Me: -ECG: Atrial fibrillation at 85, normal axis, normal QRS and QTc, nonspecific ST/T wave changes, baseline artifact noted, low voltage throughout -Cardiac Monitoring: An order was placed for continuous cardiac monitoring. The monitor shows a rate of 80 with a.fib rhythm. -Laboratory studies: As stated above and show below. -Imaging studies: X-ray Chest: A single view study of the chest was reviewed and was negative for cardiomegaly, focal infiltrate, effusion, pulmonary edema, or wide mediastinum. Triage Nursing Note Reviewed Prior/Outside Records Reviewed-prior urology note and urine culture reviewed Past Med/Surg History Medical History Atrial fibrillation on Eliquis, last saw cardiology several yrs ago per chart review of [facility] EMR History of femur fracture 06/2023- left; s/p nail fixation Nephrolithiasis Anemia per chart review, 'baseline hgb 10-11' residential resident pt currently resides at [facility] Nontoxic thyroid nodule Hx: UTI (urinary tract infection) recurrent Hx of sepsis Morbid obesity Diabetes mellitus, type II diet controlled Vertigo Lipodermatosclerosis Vitreous detachment of both eyes History of anesthesia reaction 'woke up during D&C and colonoscopy' On home O2 2 lpm qHS GERD (gastroesophageal reflux disease) diet controlled Chronic bronchitis 'bronchial asthma' 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 > gets therapy/massage to manage > was complication after radiation treatment per previous PAT RN notation Overactive bladder IBS (irritable bowel syndrome) Uterine cancer Apr 2014 > radiation > resolved per previous PAT RN notation Pulmonary embolism February 2011 > caused by prolonged sitting during a previous hospitalization per previous PAT RN notation Deep vein thrombosis February 2011 > caused by prolonged sitting during a previous hospitalization per previous PAT RN notation Hypertension Hyperlipidemia Asthma well controlled > just triggered by odors; no inhalers per previous PAT medical policy specialist History Hx of cystoscopy w/ stent placement 11/2022 (MAC without issue) [place] of [place] [facility] [place] [facility] [place] History of dilatation and curettage History of esophagogastroduodenoscopy (EGD) History of colonoscopy History of bilateral tubal ligation History of cholecystectomy Hx of hernia repair VENTRAL WITH MESH 12/19/2017: [place]: Glidescope #3, ETT #7.5, Gr View 1; 'elective glidescope; easy/atraumatic' (procedure was emergent 2/ associated with a bowel obstruction) History of tooth extraction History of cardiac cath NO STENTS > OVER 10 YRS AGO > DONE FOR CP Family History Other No family history of adverse response to anesthesia Social History Smoking Status: Never smoker Second Hand Exposure: No; Do You Dip or Chew Tobacco: No; Hx Alcohol Use: No Hx Substance Use: No Preferred Language: Hungarian Communication Ability: Effective Communication Ability Comment: alert and oriented x3 - of sound mind to sign consent Visual Impairment: No Limitations Information Technology Administrator Required: No Beliefs That Will Affect Care: None Current Living Situation: Personal Care Facility Current Living Situation Comment: pt currently resides at [facility] Feels Safe at Home: Yes Assistive Devices: Glasses and Wheelchair Allergies Allergies Allergy/AdvReac Type Severity Reaction Status Date / Time doxycycline Allergy Intermediate SWELLING Verified 10/21/23 22:48 codeine Allergy Mild PER Verified 10/21/23 22:48 PATIENT "MADE HER MARY ANNE CRAZY" WHEN SHE TOOK ALOT Sulfa (Sulfonamide Allergy Mild Gastrointestinal Verified 10/21/23 22:48 Antibiotics) Upset tetracycline Allergy Mild SWELLING Verified 10/21/23 22:48 TO EYES NARINDER Inhibitors AdvReac Intermediate cough Verified 10/21/23 22:48 Home Meds Home Medications Medication Instructions Recorded Confirmed Calcium Antacid Tab 2 - 4 tabs PO .Q1HR PRN Heartburn 06/28/23 10/21/23 acetaminophen 500 mg tablet 500 mg PO Q6H PRN Fever Or Pain 06/28/23 10/21/23 (Tylenol Extra Strength) apixaban 5 mg tablet (Eliquis) 5 mg PO AMHS 06/28/23 10/21/23 atorvastatin 80 mg tablet 80 mg PO HS 06/28/23 10/21/23 cranberry 400 mg capsule 800 mg PO DAILY 06/28/23 10/21/23 famotidine 20 mg tablet 20 mg PO AMPM 06/28/23 10/21/23 lansoprazole 30 mg capsule,delayed 30 mg PO BID 06/28/23 10/21/23 release meclizine 25 mg tablet 25 mg PO TID PRN DIZZY 06/28/23 10/21/23 methenamine hippurate 1 gram tablet 1 g PO BID 06/28/23 10/21/23 metoprolol succinate 50 mg 50 mg PO [facility] 06/28/23 10/21/23 tablet,extended release 24 hr nystatin 100,000 unit/gram topical 1 applic topical [facility] 06/28/23 10/21/23 powder (Nystop) phenazopyridine 200 mg tablet 200 mg PO Q8 PRN .BLADDER SPASMS 06/28/23 10/21/23 spironolactone 25 mg tablet 25 mg PO QAM 06/28/23 10/21/23 tramadol 50 mg tablet 50 - 100 mg PO Q6 PRN Pain 06/28/23 10/21/23 docusate sodium 100 mg capsule 100 mg PO HS 09/14/23 10/21/23 (Colace) escitalopram oxalate 10 mg tablet 10 mg PO QAM 09/14/23 10/21/23 (Lexapro) ipratropium 0.5 mg-albuterol 3 mg 3 ml inhalation Q6H PRN sob 09/14/23 10/21/23 (2.5 mg base)/3 mL nebulization soln mirtazapine 15 mg tablet (Remeron) 15 mg PO HS 09/14/23 10/21/23 ondansetron HCl 4 mg tablet 4 mg PO Q8H PRN Nausea And Vomiting 09/14/23 10/21/23 sennosides 8.6 mg tablet 8.6 mg PO HS 09/14/23 10/21/23 sucralfate 1 gram tablet (Carafate) 1 g PO ACHS 09/14/23 10/21/23 Previous Rx's Medication Instructions Recorded cefadroxil 500 mg capsule 500 mg PO BID PRN intraoperative 07/14/23 pain 10 days #20 caps ciprofloxacin HCl 500 mg tablet 500 mg PO Q12H #14 tabs 10/13/23 (Cipro) Results & Data (ED) Vital Signs Vital Signs - 24 hr 10/21/23 19:59 10/21/23 21:00 10/21/23 22:42 Temperature 37.0 C Temperature Source Oral Pulse Rate 96 H Pulse Rate [Apical] 84 88 Respiratory Rate 18 18 14 Respiratory Effort / Characteristics Non-Labored Non-Labored Non-Labored Respiratory Depth Normal Normal Normal Respiratory Pattern Regular Blood Pressure 99/55 L Blood Pressure [Right Arm] 112/43 L 124/64 Blood Pressure Mean 69 Blood Pressure Mean [Right Arm] 66 84 Pulse Oximetry 94 94 94 Oxygen Delivery Method Room Air Room Air Room Air Sepsis Recent Fever Within 48 Hours Yes Sepsis New/Unexplained Change in Mental Status No Sepsis Action Taken by Nursing No Action Required 10/22/23 00:31 10/22/23 00:51 10/22/23 01:10 Temperature 36.8 C Temperature Source Oral Pulse Rate 81 Pulse Rate [Apical] 92 H 76 Respiratory Rate 20 18 Respiratory Effort / Characteristics Non-Labored Non-Labored Respiratory Depth Normal Normal Respiratory Pattern Regular Blood Pressure Blood Pressure [Right Arm] 113/87 Blood Pressure Mean Blood Pressure Mean [Right Arm] 95 Pulse Oximetry 95 93 Oxygen Delivery Method Room Air Room Air Sepsis Recent Fever Within 48 Hours Sepsis New/Unexplained Change in Mental Status Sepsis Action Taken by Nursing Laboratory Data 10/23/23 05:48 02/10/24 05:48 Lab Results 10/21/23 10/21/23 10/21/23 Range/Units 20:23 20:40 22:44 WBC 12.43 H (4.8-10.8) K/ul RBC 3.51 L (4.20-5.40) M/uL Hgb 9.6 L (12.0-16.0) g/dl Hct 31.0 L (37.0-47.0) % MCV 88.3 (80.0-100.0) fL MCH 27.4 (25.0-34.0) pg MCHC 31.0 L (32.0-36.0) g/dL RDW Std Deviation 49.5 H (36.4-46.3) fL RDW Coeff of Rodolfo 15.4 H (11.5-14.5) % Plt Count 293 (130-400) K/uL MPV 9.7 (9.4-12.4) fL Immature Gran % (Auto) 0.6 % Neut % (Auto) 84.5 % Lymph % (Auto) 8.4 % Ness % (Auto) 6.1 % Eos % (Auto) 0.2 % Baso % (Auto) 0.2 % Neut # (Auto) 10.52 H (1.40-6.50) K/uL Lymph # (Auto) 1.04 L (1.20-3.40) K/uL Ness # (Auto) 0.76 H (0.11-0.59) K/uL Eos # (Auto) 0.02 (0.00-0.50) K/uL Baso # (Auto) 0.02 (0.00-0.20) K/uL Immature Gran # (Auto) 0.07 (0.01-0.20) K/uL APTT 32 H (21-31) Seconds PTT Ratio 1.1 Sodium 137 (136-145) mmol/L Potassium 4.1 (3.5-5.1) mmol/L Chloride 102 (98-107) mmol/L Carbon Dioxide 29 (21-32) mmol/L Anion Gap 6 (3-11) BUN 11 (6-23) mg/dl Creatinine 0.55 L (0.6-1.2) mg/dl Est Cr Clr Drug Dosing 108.6 ml/min Est GFR ( Amer) 104.9 ml/min Est GFR (Non-Af Amer) 90.5 ml/min BUN/Creatinine Ratio 20.0 (10-20) Glucose 112 H (70-99(Fasting)) mg/dl Lactate 1.0 (0.4-2.0) mmol/L Calcium 8.4 L (8.6-10.3) mg/dl Magnesium 1.8 (1.7-2.4) mg/dl Total Bilirubin 0.6 (0.2-1.0) mg/dl Direct Bilirubin 0.1 (0-0.2) mg/dl AST 9 L (13-39) U/L ALT 6 L (7-52) U/L Alkaline Phosphatase 123 H (34-104) U/L Troponin I High Sens 4.3 (0-14) pg/ml Total Protein 5.8 L (6.0-8.3) gm/dl Albumin 2.9 L (3.4-5.0) gm/dl Procalcitonin 0.16 (0-0.5) ng/ml Adenovirus (PCR) Not Detected (NotDetected) B. pertussis DNA (PCR) Not Detected (NotDetected) B.parapertussis DNA PCR Not Detected (NotDetected) C. pneumoniae DNA (PCR) Not Detected (NotDetected) Coronavirus OC43 (PCR) Not Detected (NotDetected) Coronavirus HKU1 (PCR) Not Detected (NotDetected) Coronavirus 229E (PCR) Not Detected (NotDetected) SARS-CoV-2 (PCR) Not Detected (NotDetected) Coronavirus NL63 (PCR) Not Detected (NotDetected) Enterobacterales (PCR) DETECTED A (NotDetected) E. coli (PCR) DETECTED A (NotDetected) Human Metapneumovir PCR Not Detected (NotDetected) Influenza Type A (PCR) Not Detected (NotDetected) Influenza Type B (PCR) Not Detected (NotDetected) M. pneumoniae (PCR) Not Detected (NotDetected) Parainfluenza 1 (PCR) Not Detected (NotDetected) Parainfluenza 2 (PCR) Not Detected (NotDetected) Parainfluenza 3 (PCR) Not Detected (NotDetected) Parainfluenza 4 (PCR) Not Detected (NotDetected) RSV (PCR) Not Detected (NotDetected) Entero/Rhino (PCR) Not Detected (NotDetected) mcr-1 Colistin Res Gene PCR Not Detected (NotDetected) blaIMP Car res Gene PCR Not Detected (NotDetected) KPC-Carbap Res Gene PCR Not Detected (NotDetected) blaNDM Car Res Gene PCR Not Detected (NotDetected) OXA-48 Carbapenem Resis Gene (PCR) Not Detected (NotDetected) blaVIM Car Res Gene PCR Not Detected (NotDetected) CTX-M Gene Resistance (PCR) Not Detected (NotDetected) Bld Cult ID Panel PCR See PCR Comment (NotDetected) Administered Medications Apixaban (Apixaban 5 Mg Tablet) 5 mg PO [facility] Stop: 11/21/23 08:59 Last Admin: 10/23/23 09:12 Dose: 5 mg Documented By: Admin: 10/22/23 21:34 Dose: 5 mg Documented By: Admin: 10/22/23 09:49 Dose: 5 mg Documented By: NAJMA Atorvastatin Calcium (Atorvastatin 40 Mg Tab) 80 mg PO [facility] Stop: 11/21/23 20:59 Last Admin: 10/22/23 21:34 Dose: 80 mg Documented By: REBEKAH Docusate Sodium (Docusate Sodium 100 Mg Cap) 100 mg PO [facility] Stop: 11/21/23 20:59 Last Admin: 10/22/23 21:34 Dose: Not Given Documented By: REBEKAH Escitalopram Oxalate (Escitalopram Oxalate 10 Mg Tab) 10 mg PO [facility] Stop: 11/21/23 08:59 Last Admin: 10/23/23 09:14 Dose: 10 mg Documented By: Admin: 10/22/23 09:49 Dose: 10 mg Documented By: NAJMA Famotidine (Famotidine 20 Mg Tab) 20 mg PO BID [facility] Stop: 11/21/23 08:59 Last Admin: 10/23/23 09:12 Dose: 20 mg Documented By: Admin: 10/22/23 21:34 Dose: 20 mg Documented By: Admin: 10/22/23 09:46 Dose: 20 mg Documented By: NAJMA Ceftriaxone Sodium 2,000 mg/ (Dextrose) 50 mls @ 100 mls/hr IV Q24H [facility] Stop: 11/05/23 05:59 Last Infusion: 10/22/23 16:17 Dose: Infused Documented By: Admin: 10/22/23 15:38 Dose: 100 mls/hr Documented By: CORAL Insulin Aspart (Insulin Aspart Per Unit Charge) [address] [facility] Stop: 11/21/23 03:29 Last Admin: 10/23/23 09:21 Dose: 1 units Documented By: SHERICE Co-signed By: CHARLES Admin: 10/22/23 21:35 Dose: Not Given Documented By: Admin: 10/22/23 17:42 Dose: 2 units Documented By: CORAL Co-signed By: LISANDRA Admin: 10/22/23 13:35 Dose: Not Given Documented By: Admin: 10/22/23 09:33 Dose: Not Given Documented By: Admin: 10/22/23 04:23 Dose: Not Given Documented By: SUYAPA Co-signed By: PITO Metoprolol Succinate (Metoprolol Succ 50mg Ext Rel Tab) 50 mg PO [facility] Stop: 11/21/23 08:59 Last Admin: 10/23/23 09:13 Dose: 50 mg Documented By: Admin: 10/22/23 22:35 Dose: 50 mg Documented By: Admin: 10/22/23 09:49 Dose: Not Given Documented By: NAJMA Mirtazapine (Mirtazapine Tab 15 Mg Tab) 15 mg PO [facility] Stop: 11/21/23 20:59 Last Admin: 10/22/23 21:35 Dose: 15 mg Documented By: REBEKAH Pantoprazole Sodium (Pantoprazole 40 Mg Tab) 40 mg PO BID [facility] Stop: 11/21/23 08:59 Last Admin: 10/23/23 09:13 Dose: 40 mg Documented By: Admin: 10/22/23 21:36 Dose: 40 mg Documented By: Admin: 10/22/23 09:46 Dose: 40 mg Documented By: NAJMA Sennosides (Senna 8.6 Mg Tab) 8.6 mg PO [facility] Stop: 11/21/23 20:59 Last Admin: 10/22/23 21:36 Dose: 8.6 mg Documented By: REBEKAH Sucralfate (Sucralfate 1 Gm Tab) 1 gm PO ACHS [facility] Stop: 11/21/23 07:29 Last Admin: 10/23/23 09:11 Dose: 1 gm Documented By: Admin: 10/22/23 21:36 Dose: 1 gm Documented By: Admin: 10/22/23 15:38 Dose: Not Given Documented By: Admin: 10/22/23 12:15 Dose: 1 gm Documented By: Admin: 10/22/23 09:45 Dose: 1 gm Documented By: NAJMA Tramadol HCl (Tramadol Hcl 50 Mg Tablet) 25 - 50 mg PO Q4H PRN PRN Reason: Pain Stop: 11/21/23 05:22 Last Admin: 10/22/23 09:45 Dose: 25 mg Documented By: NAJMA Discontinued Medications Sodium Chloride (Nss) 1,000 mls @ 999 mls/hr IV .Q1H1M [facility] Stop: 10/21/23 21:15 Last Infusion: 10/21/23 22:41 Dose: Infused Documented By: Admin: 10/21/23 21:02 Dose: 999 mls/hr Documented By: ERIN Cefepime HCl (Maxipime) 2,000 mg in 20 mls @ 5 mls/min IV NOW STA; Protocol Stop: 10/21/23 20:37 Last Admin: 10/21/23 21:01 Dose: 5 mls/min Documented By: ERIN Sodium Chloride (Nss) 1,000 mls @ 125 mls/hr IV .Q8H ANA PAULA Stop: 11/20/23 22:29 Last Infusion: 10/22/23 04:24 Dose: Infused Documented By: Infusion: 10/22/23 02:34 Dose: 0 mls/hr Documented By: Admin: 10/22/23 00:50 Dose: 125 mls/hr Documented By: ERIN Sodium Chloride (Nss) 1,000 mls @ 100 mls/hr IV .Q10H STA Stop: 10/22/23 11:49 Last Infusion: 10/22/23 11:26 Dose: Infused Documented By: Admin: 10/22/23 02:29 Dose: 100 mls/hr Documented By: ERIN Cefepime HCl 2,000 mg/ Syringe 20 mls @ 5 mls/min IV Q8H ANA PAULA; Protocol Stop: 11/01/23 05:59 Last Admin: 10/22/23 05:59 Dose: 5 mls/min Documented By: LIBORIO Fluconazole (Diflucan) 200 mg in 100 mls @ 100 mls/hr IV NOW STA Stop: 10/22/23 06:19 Last Infusion: 10/22/23 08:19 Dose: Infused Documented By: Admin: 10/22/23 06:00 Dose: 100 mls/hr Documented By: LIBORIO Ioversol (Optiray 320 500ml) 90 ml IV ONCE ONE Stop: 10/21/23 23:00 Last Admin: 10/21/23 23:00 Dose: 90 ml Documented By: [facility] [employer] Data Radiologist's Impression: Abdomen/Pelvis CT 10/21/23 22:26 Exam(s): CT ABDOMEN + PELVIS With Contrast IV Amt: 90 ml optiray 320 EXAM: CT Abdomen and Pelvis With Intravenous Contrast CLINICAL HISTORY: Reason for exam: hx stones/pyelo. TECHNIQUE: Axial computed tomography images of the abdomen and pelvis with intravenous contrast. Automated exposure control was utilized for the study. A dose lowering technique was utilized adhering to the principles of ALARA. CONTRAST: Patient received 90 ml optiray 320 of IV contrast COMPARISON: No relevant prior studies available. FINDINGS: Lung bases: Unremarkable. No mass. No consolidation. ABDOMEN: Liver: Unremarkable. No mass. Gallbladder and bile ducts: Unremarkable. No calcified stones. No ductal dilation. Pancreas: Unremarkable. No mass. No ductal dilation. Spleen: Unremarkable. No splenomegaly. Adrenals: Unremarkable. No mass. Kidneys and ureters: Mild left hydroureter ureter with subtle delayed enhancement suggesting obstructive uropathy. No ureteral renal or bladder calculi identified on this exam. left renal cyst. Measuring 3.0 cm. Stomach and bowel: Unremarkable. No obstruction. No mucosal thickening. PELVIS: Appendix: No findings to suggest acute appendicitis. Bladder: Cobb catheter within the urinary bladder. Reproductive: Unremarkable as visualized. ABDOMEN and PELVIS: Intraperitoneal space: Unremarkable. No free air. No significant fluid collection. Bones/joints: Postoperative changes ORIF left hip fracture. L2 superior endplate compression deformity likely acute nature. No dislocation. Soft tissues: Unremarkable. Vasculature: Unremarkable. No abdominal aortic aneurysm. Lymph nodes: Unremarkable. No enlarged lymph nodes. IMPRESSION: Acute L2 superior endplate compression deformity. Mild left hydroureteronephrosis with delayed enhancement of the left kidney. No obvious obstructing ureteral calculus identified on this exam the findings are suggestive of a recently passed ureteral calculus. Electronically signed by: Servando Em MD 10/22/23 00:55 AM Discharge Plan Visit Data Chief Complaint: Fever Stated Complaint: Fever, UTI ED Provider: Paola King Discharge Problem: Fever, Chronic indwelling Cobb catheter Patient Disposition: Admitted As Inpatient Discharge Instructions Interventions: ED Discharge Assessment Last Done: 10/22/23 03:19
[2023-10-21 23:55] LABS: Adenovirus PCR Not Detected (NotDetected); Bordetella parapertussis PCR Not Detected (NotDetected); Bordetella pertussis PCR Not Detected (NotDetected); Chlamydia pneumoniae PCR Not Detected (NotDetected); Coronavirus 229E PCR Not Detected (NotDetected); Coronavirus CoV-2 (COVID19)PCR Not Detected (NotDetected); Coronavirus HKU1 PCR Not Detected (NotDetected); Coronavirus NL63 PCR Not Detected (NotDetected); Coronavirus OC43PCR Not Detected (NotDetected); Human Metapneumovirus PCR Not Detected (NotDetected); Influenza A PCR Not Detected (NotDetected); Influenza B PCR Not Detected (NotDetected); Mycoplasma pneumoniae PCR Not Detected (NotDetected); Parainfluenza Virus 1 PCR Not Detected (NotDetected); Parainfluenza Virus 2 PCR Not Detected (NotDetected); Parainfluenza Virus 3 PCR Not Detected (NotDetected); Parainfluenza Virus 4 PCR Not Detected (NotDetected); Respiratory Syncytial VirusPCR Not Detected (NotDetected); Rhinovirus/Enterovirus PCR Not Detected (NotDetected)
[2023-10-22] MEDS: SODIUM CHLORIDE 0.9% 1,000 ML IV SCH (00:50)
--- NOTE | 2023-10-22 00:56 | CT Scan Report ---
Exam(s): CT ABDOMEN + PELVIS With Contrast IV Amt: 90 ml optiray 320 EXAM: CT Abdomen and Pelvis With Intravenous Contrast CLINICAL HISTORY: Reason for exam: hx stones/pyelo. TECHNIQUE: Axial computed tomography images of the abdomen and pelvis with intravenous contrast. Automated exposure control was utilized for the study. A dose lowering technique was utilized adhering to the principles of ALARA. CONTRAST: Patient received 90 ml optiray 320 of IV contrast COMPARISON: No relevant prior studies available. FINDINGS: Lung bases: Unremarkable. No mass. No consolidation. ABDOMEN: Liver: Unremarkable. No mass. Gallbladder and bile ducts: Unremarkable. No calcified stones. No ductal dilation. Pancreas: Unremarkable. No mass. No ductal dilation. Spleen: Unremarkable. No splenomegaly. Adrenals: Unremarkable. No mass. Kidneys and ureters: Mild left hydroureter ureter with subtle delayed enhancement suggesting obstructive uropathy. No ureteral renal or bladder calculi identified on this exam. left renal cyst. Measuring 3.0 cm. Stomach and bowel: Unremarkable. No obstruction. No mucosal thickening. PELVIS: Appendix: No findings to suggest acute appendicitis. Bladder: Osorio catheter within the urinary bladder. Reproductive: Unremarkable as visualized. ABDOMEN and PELVIS: Intraperitoneal space: Unremarkable. No free air. No significant fluid collection. Bones/joints: Postoperative changes ORIF left hip fracture. L2 superior endplate compression deformity likely acute nature. No dislocation. Soft tissues: Unremarkable. Vasculature: Unremarkable. No abdominal aortic aneurysm. Lymph nodes: Unremarkable. No enlarged lymph nodes. IMPRESSION: Acute L2 superior endplate compression deformity. Mild left hydroureteronephrosis with delayed enhancement of the left kidney. No obvious obstructing ureteral calculus identified on this exam the findings are suggestive of a recently passed ureteral calculus. Electronically signed by: Servando Em MD 10/22/23 00:55 AM
[2023-10-22 01:54] LABS: Partial Thromboplastin Ratio 1.1; Partial Thromboplastin Time 32 Seconds (21-31)
--- NOTE | 2023-10-22 02:27 | History & Physical Report ---
Date of Service October 22, 2023 Assessment & Plan (1) Sepsis: Plan: SIRS criteria met with leukocytosis and documented temperature elevation of 100.4 at home Secondary to complicated UTI/funguria recurrent UTIs on chronic methenamine suppression Rx/urge incontinence/chronic indwelling Osorio catheter/urolithiasis; recent instrumentation Recurrent disease A-fib, rate controlled/history of PE DVT Patient on Eliquis. hypertension, stable hyperlipidemia on statin Rx Valvular heart disease (mild AR/TR) bronchial asthma, stable DM2 diet-controlled, well-controlled as of recent hemoglobin A1c of 6.1 last June 2023 endometrial cancer status post radiation, patient in remission chronic anemia, hemoglobin at baseline chronic lymphedema Medical telemetry CS, Cefepime and Diflucan Urology consult Re: Recurrent UTI, recent instrumentation (Patient already seen at the ER by provider who recommends n.p.o. status in anticipation of procedure.) ID consult re: recurrent UTIs, funguria ISS BG goal 1 10-1 40 DVT prophylaxis. Eliquis Full code Patient son requesting updates from providers. Mr. Gerald Brumfield, contact #[phone]. Text document was generated using [email or web address] voice recognition software. It may contain grammatical or spelling errors. Kindly contact undersigned for clarification of any documentation item in question. History of Present Illness Chief Complaint: Fever, chills Primary Care Provider: Pavan Mckeon MD History obtained from patient and records. Medical history significant for A-fib on Eliquis, valvular heart disease (mild AR/TR), hypertension, hyperlipidemia, history of PE DVT as per records, bronchial asthma, DM2 diet-controlled, endometrial cancer status post radiation, recurrent UTIs on chronic methenamine suppression Rx, urge incontinence, chronic indwelling Soorio catheter, urolithiasis GERD, chronic anemia (baseline hemoglobin of 9), chronic lymphedema, osteoarthritis. Last confinement June 2023 for left femoral fracture status post surgery. Patient also completed antibiotic Rx for Pseudomonas UTI. Patient discharged to [facility] for rehab where she stayed for 3 months. Patient subsequently discharged to [facility] 10 days ago. 2 weeks ago, patient underwent bilateral ureteroscopy for nephrolithiasis by [facility] urologist. Subsequent stent placement. Urine culture grew Pseudomonas and Gina glabrata. Subsequent stent removal and Osorio catheter exchange last week on urology follow-up. Outpatient ID consultation recommended given recurrent infections. Outpatient ciprofloxacin course prescribed. Patient unaware of prescription up until yesterday when she checked her email. Yesterday, patient noted fever chills. Denies unusual abdominal/flank pain. Usual hematuria through Osorio catheter. Poor appetite. Denies chest pain, SOB, cough symptoms. Temperature 100.4 at home. IV cefepime administered at the ER. MEDICAL HISTORY: As above. SURGICAL HISTORY: Bilateral tubal ligation, cholecystectomy, appendectomy, D&C, urologic procedures, femoral fracture surgery FAMILY HISTORY: Heart disease, COPD. PERSONAL SOCIAL HISTORY: Nonsmoker, no chronic intake of alcoholic beverages. 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 Allergies Allergy/AdvReac Type Severity Reaction Status Date / Time doxycycline Allergy Intermediate SWELLING Verified 10/21/23 22:48 codeine Allergy Mild PER Verified 10/21/23 22:48 PATIENT "MADE HER MARY ANNE CRAZY" WHEN SHE TOOK ALOT Sulfa (Sulfonamide Allergy Mild Gastrointestinal Verified 10/21/23 22:48 Antibiotics) Upset tetracycline Allergy Mild SWELLING Verified 10/21/23 22:48 TO EYES NARINDER Inhibitors AdvReac Intermediate cough Verified 10/21/23 22:48 Home Medications Medication Instructions Recorded Confirmed Type Calcium Antacid Tab 2 - 4 tabs PO .Q1HR PRN Heartburn 06/28/23 10/21/23 History acetaminophen 500 mg tablet 500 mg PO Q6H PRN Fever Or Pain 06/28/23 10/21/23 History (Tylenol Extra Strength) apixaban 5 mg tablet (Eliquis) 5 mg PO AMHS 06/28/23 10/21/23 History atorvastatin 80 mg tablet 80 mg PO HS 06/28/23 10/21/23 History cranberry 400 mg capsule 800 mg PO DAILY 06/28/23 10/21/23 History famotidine 20 mg tablet 20 mg PO AMPM 06/28/23 10/21/23 History lansoprazole 30 mg capsule,delayed 30 mg PO BID 06/28/23 10/21/23 History release meclizine 25 mg tablet 25 mg PO TID PRN DIZZY 06/28/23 10/21/23 History methenamine hippurate 1 gram tablet 1 g PO BID 06/28/23 10/21/23 History metoprolol succinate 50 mg 50 mg PO AMHS 06/28/23 10/21/23 History tablet,extended release 24 hr nystatin 100,000 unit/gram topical 1 applic topical AMHS 06/28/23 10/21/23 History powder (Nystop) phenazopyridine 200 mg tablet 200 mg PO Q8 PRN .BLADDER SPASMS 06/28/23 10/21/23 History spironolactone 25 mg tablet 25 mg PO QAM 06/28/23 10/21/23 History tramadol 50 mg tablet 50 - 100 mg PO Q6 PRN Pain 06/28/23 10/21/23 History cefadroxil 500 mg capsule 500 mg PO BID PRN intraoperative 07/14/23 10/21/23 Rx pain 10 days #20 caps docusate sodium 100 mg capsule 100 mg PO HS 09/14/23 10/21/23 History (Colace) escitalopram oxalate 10 mg tablet 10 mg PO QAM 09/14/23 10/21/23 History (Lexapro) ipratropium 0.5 mg-albuterol 3 mg 3 ml inhalation Q6H PRN sob 09/14/23 10/21/23 History (2.5 mg base)/3 mL nebulization soln mirtazapine 15 mg tablet (Remeron) 15 mg PO HS 09/14/23 10/21/23 History ondansetron HCl 4 mg tablet 4 mg PO Q8H PRN Nausea And Vomiting 09/14/23 10/21/23 History sennosides 8.6 mg tablet 8.6 mg PO HS 09/14/23 10/21/23 History sucralfate 1 gram tablet (Carafate) 1 g PO ACHS 09/14/23 10/21/23 History ciprofloxacin HCl 500 mg tablet 500 mg PO Q12H #14 tabs 10/13/23 10/21/23 Rx (Cipro) Past Med/Surg History Medical History Atrial fibrillation on Eliquis, last saw cardiology several yrs ago per chart review of [facility] EMR History of femur fracture 06/2023- left; s/p nail fixation Nephrolithiasis Anemia per chart review, 'baseline hgb 10-11' jail resident pt currently resides at [facility] Nontoxic thyroid nodule Hx: UTI (urinary tract infection) recurrent Hx of sepsis Morbid obesity Diabetes mellitus, type II diet controlled Vertigo Lipodermatosclerosis Vitreous detachment of both eyes History of anesthesia reaction 'woke up during D&C and colonoscopy' On home O2 2 lpm qHS GERD (gastroesophageal reflux disease) diet controlled Chronic bronchitis 'bronchial asthma' 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 > gets therapy/massage to manage > was complication after radiation treatment per previous PAT RN notation Overactive bladder IBS (irritable bowel syndrome) Uterine cancer Apr 2014 > radiation > resolved per previous PAT RN notation Pulmonary embolism February 2011 > caused by prolonged sitting during a previous hospitalization per previous PAT RN notation Deep vein thrombosis February 2011 > caused by prolonged sitting during a previous hospitalization per previous PAT RN notation Hypertension Hyperlipidemia Asthma well controlled > just triggered by odors; no 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 History Hx of cystoscopy w/ stent placement 11/2022 (MAC without issue) History of cataract surgery R cataract 02/26/21 @ [facility]; MAC without issue L cararact 03/12/21 @ [facility] [place]; MAC without issue History of dilatation and curettage History of esophagogastroduodenoscopy (EGD) History of colonoscopy History of bilateral tubal ligation History of cholecystectomy Hx of hernia repair VENTRAL WITH MESH 12/19/2017: [place]: Glidescope #3, ETT #7.5, Gr View 1; 'elective glidescope; easy/atraumatic' (procedure was emergent / associated with a bowel obstruction) History of tooth extraction History of cardiac cath NO STENTS > OVER 10 YRS AGO > DONE FOR CP Family History Other No family history of adverse response to anesthesia Social History Smoking Status: Never smoker Second Hand Exposure: No; Do You Dip or Chew Tobacco: No; Hx Alcohol Use: No Hx Substance Use: No Preferred Language: Burkinan Communication Ability: Effective Communication Ability Comment: alert and oriented x3 - of sound mind to sign consent Visual Impairment: No Limitations Escort Car Driver Required: No Beliefs That Will Affect Care: None Current Living Situation: Personal Care Facility Current Living Situation Comment: pt currently resides at [facility] Feels Safe at Home: Yes Safety Concerns: Feels Safe At This Time Assistive Devices: Glasses and Wheelchair Review of Systems Review of Systems: As per HPI, all other systems reviewed and negative Physical Exam Physical Exam: GENERAL: uncomfortable, pleasant, morbidly obese, no respiratory distress SKIN: Pallor, warm HEENT: Bespectacled, pale palpebral conjunctivae, no ptosis, dry buccal mucosa NECK : Supple, short neck, no tenderness CHEST : Decreased breath sounds, no tenderness HEART : Irregular, no obvious murmurs ABDOMEN: distention, nontender EXTREMITIES : Bilateral LE swelling , no LE tenderness, no other conspicuous deformities noted NEUROLOGIC : Coherent, no facial asymmetry, gait and stance not assessed Results & Data Results & Data Vital Signs (Past 12 Hours) Vital Signs Temp Pulse Pulse Resp BP BP Pulse Ox 10/22/23 01:10 36.8 C 76 18 93 10/22/23 00:51 92 H 20 113/87 95 10/22/23 00:31 81 10/21/23 22:42 88 14 124/64 94 10/21/23 21:00 84 18 112/43 L 94 10/21/23 19:59 37.0 C 96 H 18 99/55 L 94 O2 Del Method 10/22/23 01:10 Room Air 10/22/23 00:51 Room Air 10/22/23 00:31 10/21/23 22:42 Room Air 10/21/23 21:00 Room Air 10/21/23 19:59 Room Air Laboratory Results Laboratory Results WBC 12.43 K/ul (4.8-10.8) H 10/21/23 20:23 RBC 3.51 M/uL (4.20-5.40) L 10/21/23 20:23 Hgb 9.6 g/dl (12.0-16.0) L 10/21/23 20:23 Hct 31.0 % (37.0-47.0) L 10/21/23 20:23 MCV 88.3 fL (80.0-100.0) 10/21/23 20:23 MCH 27.4 pg (25.0-34.0) 10/21/23 20: MCHC 31.0 g/dL (32.0-36.0) L 10/21/23 20:23 RDW Std Deviation 49.5 fL (36.4-46.3) H 10/21/23 20:23 RDW Coeff of Rodolfo 15.4 % (11.5-14.5) H 10/21/23 20: Plt Count 293 K/uL (130-400) 10/21/23 20:23 MPV 9.7 fL (9.4-12.4) 10/21/23 20:23 Immature Gran % (Auto) 0.6 % 10/21/23 20:23 Neut % (Auto) 84.5 % 10/21/23 20:23 Lymph % (Auto) 8.4 % 10/21/23 20:23 [place] % (Auto) 6.1 % 10/21/23 20:23 Eos % (Auto) 0.2 % 10/21/23 20: Baso % (Auto) 0.2 % 10/21/23 20: Neut # (Auto) 10.52 K/uL (1.40-6.50) H 10/21/23 20:23 Lymph # (Auto) 1.04 K/uL (1.20-3.40) L 10/21/23 20:23 [place] # (Auto) 0.76 K/uL (0.11-0.59) H 10/21/23 20:23 Eos # (Auto) 0.02 K/uL (0.00-0.50) 10/21/23 20:23 Baso # (Auto) 0.02 K/uL (0.00-0.20) 10/21/23 20:23 Immature Gran # (Auto) 0.07 K/uL (0.01-0.20) 10/21/23 20:23 APTT 32 Seconds (21-31) H 10/21/23 20:23 PTT Ratio 1.1 10/21/23 20:23 Sodium 137 mmol/L (136-145) 10/21/23 20:23 Potassium 4.1 mmol/L (3.5-5.1) 10/21/23 20:23 Chloride 102 mmol/L (98-107) 10/21/23 20:23 Carbon Dioxide 29 mmol/L (21-32) 10/21/23 20:23 Anion Gap 6 (3-11) 10/21/23 20:23 BUN 11 mg/dl (6-23) 10/21/23 20:23 Creatinine 0.55 mg/dl (0.6-1.2) L 10/21/23 20:23 Est Cr Clr Drug Dosing 108.6 ml/min 10/21/23 20:23 Est GFR ( Amer) 104.9 ml/min 10/21/23 20:23 Est GFR (Non-Af Amer) 90.5 ml/min 10/21/23 20:23 BUN/Creatinine Ratio 20.0 (10-20) 10/21/23 20:23 Glucose 112 mg/dl (70-99(Fasting)) H 10/21/23 20:23 Lactate 1.0 mmol/L (0.4-2.0) 10/21/23 20:40 Calcium 8.4 mg/dl (8.6-10.3) L 10/21/23 20:23 Magnesium 1.8 mg/dl (1.7-2.4) 10/21/23 20:23 Total Bilirubin 0.6 mg/dl (0.2-1.0) 10/21/23 20:23 Direct Bilirubin 0.1 mg/dl (0-0.2) 10/21/23 20:23 AST 9 U/L (13-39) L 10/21/23 20:23 ALT 6 U/L (7-52) L 10/21/23 20:23 Alkaline Phosphatase 123 U/L (34-104) H 10/21/23 20:23 Troponin I High Sens 4.3 pg/ml (0-14) 10/21/23 20:23 Total Protein 5.8 gm/dl (6.0-8.3) L 10/21/23 20:23 Albumin 2.9 gm/dl (3.4-5.0) L 10/21/23 20:23 Procalcitonin 0.16 ng/ml (0-0.5) 10/21/23 20:23 Adenovirus (PCR) Not Detected (NotDetected) 10/21/23 22:44 B. pertussis DNA (PCR) Not Detected (NotDetected) 10/21/23 22:44 B.parapertussis DNA PCR Not Detected (NotDetected) 10/21/23 22:44 C. pneumoniae DNA (PCR) Not Detected (NotDetected) 10/21/23 22:44 Coronavirus OC43 (PCR) Not Detected (NotDetected) 10/21/23 22:44 Coronavirus HKU1 (PCR) Not Detected (NotDetected) 10/21/23 22:44 Coronavirus 229E (PCR) Not Detected (NotDetected) 10/21/23 22:44 SARS-CoV-2 (PCR) Not Detected (NotDetected) 10/21/23 22:44 Coronavirus NL63 (PCR) Not Detected (NotDetected) 10/21/23 22:44 Human Metapneumovir PCR Not Detected (NotDetected) 10/21/23 22:44 Influenza Type A (PCR) Not Detected (NotDetected) 10/21/23 22:44 Influenza Type B (PCR) Not Detected (NotDetected) 10/21/23 22:44 M. pneumoniae (PCR) Not Detected (NotDetected) 10/21/23 22:44 Parainfluenza 1 (PCR) Not Detected (NotDetected) 10/21/23 22:44 Parainfluenza 2 (PCR) Not Detected (NotDetected) 10/21/23 22:44 Parainfluenza 3 (PCR) Not Detected (NotDetected) 10/21/23 22:44 Parainfluenza 4 (PCR) Not Detected (NotDetected) 10/21/23 22:44 RSV (PCR) Not Detected (NotDetected) 10/21/23 22:44 Entero/Rhino (PCR) Not Detected (NotDetected) 10/21/23 22:44 Impressions Abdomen/Pelvis CT 10/21/23 22:26 Exam(s): CT ABDOMEN + PELVIS With Contrast IV Amt: 90 ml optiray 320 EXAM: CT Abdomen and Pelvis With Intravenous Contrast CLINICAL HISTORY: Reason for exam: hx stones/pyelo. TECHNIQUE: Axial computed tomography images of the abdomen and pelvis with intravenous contrast. Automated exposure control was utilized for the study. A dose lowering technique was utilized adhering to the principles of ALARA. CONTRAST: Patient received 90 ml optiray 320 of IV contrast COMPARISON: No relevant prior studies available. FINDINGS: Lung bases: Unremarkable. No mass. No consolidation. ABDOMEN: Liver: Unremarkable. No mass. Gallbladder and bile ducts: Unremarkable. No calcified stones. No ductal dilation. Pancreas: Unremarkable. No mass. No ductal dilation. Spleen: Unremarkable. No splenomegaly. Adrenals: Unremarkable. No mass. Kidneys and ureters: Mild left hydroureter ureter with subtle delayed enhancement suggesting obstructive uropathy. No ureteral renal or bladder calculi identified on this exam. left renal cyst. Measuring 3.0 cm. Stomach and bowel: Unremarkable. No obstruction. No mucosal thickening. PELVIS: Appendix: No findings to suggest acute appendicitis. Bladder: Osorio catheter within the urinary bladder. Reproductive: Unremarkable as visualized. ABDOMEN and PELVIS: Intraperitoneal space: Unremarkable. No free air. No significant fluid collection. Bones/joints: Postoperative changes ORIF left hip fracture. L2 superior endplate compression deformity likely acute nature. No dislocation. Soft tissues: Unremarkable. Vasculature: Unremarkable. No abdominal aortic aneurysm. Lymph nodes: Unremarkable. No enlarged lymph nodes. IMPRESSION: Acute L2 superior endplate compression deformity. Mild left hydroureteronephrosis with delayed enhancement of the left kidney. No obvious obstructing ureteral calculus identified on this exam the findings are suggestive of a recently passed ureteral calculus. Electronically signed by: Servando Em MD 10/22/23 00:55 AM Diagnostic Findings , AEKG as per my interpretation : Rate 85 A-fib, normal axis, inferior infarct, anterior infarct, diffuse T wave flattening
[2023-10-22] MEDS: SODIUM CHLORIDE 0.9% 1,000 ML IV STA (02:29)
[2023-10-22] MEDS ORDERED: oxyCODONE HCL IR 5 MG TAB (IMMEDIATE RELEASE) PO PRN (02:32)
[2023-10-22] MEDS ORDERED: PROMETHAZINE HCL 12.5 MG in SODIUM CHLORIDE 0.9% 50 ML IV PRN (02:32)
[2023-10-22] MEDS ORDERED: GLUCAGON FOR INJ 1 MG VIAL SQ PRN (03:19)
[2023-10-22] MEDS ORDERED: CARBOHYDRATES FOR HYPOGLYCEMIA PO PRN (03:19)
[2023-10-22] MEDS ORDERED: GLUCOSE 40% GEL 15 GM TUBE PO PRN (03:19)
[2023-10-22] MEDS ORDERED: DEXTROSE 50% 50 ML SYRINGE IV PRN (03:19)
[2023-10-22] MEDS ORDERED: GLUCOSE 10 TAB/TUBE PO PRN (03:19)
[2023-10-22] MEDS ORDERED: PHENAZOPYRIDINE HCL 200 MG TAB PO PRN (03:19)
--- NOTE | 2023-10-22 04:10 | Urology Consultation ---
Date of Consultation October 22, 2023 Assessment & Plan (1) Recurrent UTI (urinary tract infection): Patient has been admitted on the hospitalist service. From a urologic perspective we recommend proceeding as follows: The patient may have recurrent urinary tract infection and due to her recent urologic procedure she has been admitted to the hospital Patient has been started on broad-spectrum antibiotics in the form of cefepime. Would recommend continuing antibiotics and monitoring culture data at which time antibiotics be tailored based on these results Would recommend making the patient n.p.o. She will be [facility]eval[facility] to determine if she will require any further cystoscopic intervention At the present time she is noted to be normotensive without tachycardia and she is afebrile in the emergency department, so she may simply need antibiotics without the need for further cystoscopic intervention. Additional recommendations to be forthcoming based on her clinical course as it unfolds History of Present Illness Reason for Consultation: Hydronephrosis of the left kidney Recurrent urinary tract infections Attending Physician: Trevon Jo MD History of Present Illness This is a 78-year-old female who is known to [facility] urology. Patient most recently underwent operative intervention by Dr. Thorpe on 10/07/2023 at which time he performed a cystoscopy with a extraction of a left ureteral stone and insertion of a left ureteral stent. Patient has since followed up with Dr. Thorpe on 10/15/2023. During this office visit Dr. Thorpe had a lengthy discussion with the patient regarding recurrent urinary tract infections. Dr. Thorpe discussed with the patient about clearing her urinary tract of all foreign objects including kidney stones, ureteral stents, Osorio catheter. He did feel it was in her best interest to do a Osorio catheter exchange as she had a chronic indwelling Osorio and this was performed. He did however remove the existing left ureteral stent. The patient notes that over the past 24 hours she began developing fevers. She believes her fevers were as high as 101. She did have some shakes and chills. She denies any back or flank pain. She cannot ascertain whether or not she was having any dysuria she has a chronic indwelling Osorio. Because of this symptomatology she presented to the emergency department. It is nowhere the mention that the patient believes she is taking antibiotics and review of medications show that she is taking Cipro. There is also nowhere the mention that the patient does take Eliquis 5 mg twice daily and she believes she did take this medication yesterday. Since arrival to the emergency department today the patient has had labs and imaging which I independent reviewed. Chest x-ray did not show any evidence of pneumonia or pleural effusion. Patient also had a CT scan of the abdomen pe lvis. This study showed that patient had mild left hydro and ureteral nephrosis but no obvious obstructing ureteral kidney stones were notified on this examinterpreting radiologist raised the concern the patient may have recently passed a ureteral stone. Labs include a CBC her white blood cell count was elevated 12.4. Her hemoglobin hematocrit 9.6 and 31.0. Platelet count is normal. Chemistry profile shows sodium and potassium are normal. Her BUN and creatinine are not elevated. A bio fire panel was performed and was negative for all viruses tested. A urinalysis has been ordered and is pending. The patient also had a urine culture as well as blood culture sent. The patient's most recent urine cultures were reviewed and on 10/07/2023 the patient did have a urine culture that grew Gina as well as Pseudomonas. The Pseudomonas had intermediate resistance to Levaquin. At the time of my interview the patient was resting comfortably in bed and she was in no distress. Allergies Allergy/AdvReac Type Severity Reaction Status Date / Time doxycycline Allergy Intermediate SWELLING Verified 10/21/23 22:48 codeine Allergy Mild PER Verified 10/21/23 22:48 PATIENT "MADE HER MARY ANNE CRAZY" WHEN SHE TOOK ALOT Sulfa (Sulfonamide Allergy Mild Gastrointestinal Verified 10/21/23 22:48 Antibiotics) Upset tetracycline Allergy Mild SWELLING Verified 10/21/23 22:48 TO EYES NARINDER Inhibitors AdvReac Intermediate cough Verified 10/21/23 22:48 Home Medications Medication Instructions Recorded Confirmed Type Calcium Antacid Tab 2 - 4 tabs PO .Q1HR PRN Heartburn 06/28/23 10/21/23 History acetaminophen 500 mg tablet 500 mg PO Q6H PRN Fever Or Pain 06/28/23 10/21/23 History (Tylenol Extra Strength) apixaban 5 mg tablet (Eliquis) 5 mg PO AMHS 06/28/23 10/21/23 History atorvastatin 80 mg tablet 80 mg PO HS 06/28/23 10/21/23 History cranberry 400 mg capsule 800 mg PO DAILY 06/28/23 10/21/23 History famotidine 20 mg tablet 20 mg PO AMPM 06/28/23 10/21/23 History lansoprazole 30 mg capsule,delayed 30 mg PO BID 06/28/23 10/21/23 History release meclizine 25 mg tablet 25 mg PO TID PRN DIZZY 06/28/23 10/21/23 History methenamine hippurate 1 gram tablet 1 g PO BID 06/28/23 10/21/23 History metoprolol succinate 50 mg 50 mg PO AMHS 06/28/23 10/21/23 History tablet,extended release 24 hr nystatin 100,000 unit/gram topical 1 applic topical AMHS 06/28/23 10/21/23 History powder (Nystop) phenazopyridine 200 mg tablet 200 mg PO Q8 PRN .BLADDER SPASMS 06/28/23 10/21/23 History spironolactone 25 mg tablet 25 mg PO QAM 06/28/23 10/21/23 History tramadol 50 mg tablet 50 - 100 mg PO Q6 PRN Pain 06/28/23 10/21/23 History cefadroxil 500 mg capsule 500 mg PO BID PRN intraoperative 07/14/23 10/21/23 Rx pain 10 days #20 caps docusate sodium 100 mg capsule 100 mg PO HS 09/14/23 10/21/23 History (Colace) escitalopram oxalate 10 mg tablet 10 mg PO QAM 09/14/23 10/21/23 History (Lexapro) ipratropium 0.5 mg-albuterol 3 mg 3 ml inhalation Q6H PRN sob 09/14/23 10/21/23 History (2.5 mg base)/3 mL nebulization soln mirtazapine 15 mg tablet (Remeron) 15 mg PO HS 09/14/23 10/21/23 History ondansetron HCl 4 mg tablet 4 mg PO Q8H PRN Nausea And Vomiting 09/14/23 10/21/23 History sennosides 8.6 mg tablet 8.6 mg PO HS 09/14/23 10/21/23 History sucralfate 1 gram tablet (Carafate) 1 g PO ACHS 09/14/23 10/21/23 History ciprofloxacin HCl 500 mg tablet 500 mg PO Q12H #14 tabs 10/13/23 10/21/23 Rx (Cipro) Patient History Medical History Atrial fibrillation on Eliquis, last saw cardiology several yrs ago per chart review of [facility] EMR History of femur fracture 06/2023- left; s/p nail fixation Nephrolithiasis Anemia per chart review, 'baseline hgb 10-11' [facility] resident pt currently resides at [facility] Nontoxic thyroid nodule Hx: UTI (urinary tract infection) recurrent Hx of sepsis Morbid obesity Diabetes mellitus, type II diet controlled Vertigo Lipodermatosclerosis Vitreous detachment of both eyes History of anesthesia reaction 'woke up during D&C and colonoscopy' On home O2 2 lpm qHS GERD (gastroesophageal reflux disease) diet controlled Chronic bronchitis 'bronchial asthma' 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 > gets therapy/massage to manage > was complication after radiation treatment per previous PAT RN notation Overactive bladder IBS (irritable bowel syndrome) Uterine cancer Apr 2014 > radiation > resolved per previous PAT RN notation Pulmonary embolism February 2011 > caused by prolonged sitting during a previous hospitalization per previous PAT RN notation Deep vein thrombosis February 2011 > caused by prolonged sitting during a previous hospitalization per previous PAT RN notation Hypertension Hyperlipidemia Asthma well controlled > just triggered by odors; no inhalers per previous PAT security researcher History Hx of cystoscopy w/ stent placement 11/2022 (MAC without issue) History of cataract surgery R cataract 02/26/21 @ [facility] – [place]; MAC without issue L cararact 03/12/21 @ [facility] – [place]; MAC without issue History of dilatation and curettage History of esophagogastroduodenoscopy (EGD) History of colonoscopy History of bilateral tubal ligation History of cholecystectomy Hx of hernia repair VENTRAL WITH MESH 12/19/2017: [place]: Glidescope #3, ETT #7.5, Gr View 1; 'elective glidescope; easy/atraumatic' (procedure was emergent 2/2 associated with a bowel obstruction) History of tooth extraction History of cardiac cath NO STENTS > OVER 10 YRS AGO > DONE FOR CP Family History Other No family history of adverse response to anesthesia Social History Smoking Status: Never smoker Second Hand Exposure: No; Do You Dip or Chew Tobacco: No; Hx Alcohol Use: No Hx Substance Use: No Preferred Language: Armenian Communication Ability: Effective Communication Ability Comment: alert and oriented x3 - of sound mind to sign consent Visual Impairment: No Limitations Wire Frame Dipper Required: No Beliefs That Will Affect Care: None Current Living Situation: Assisted Current Living Situation Comment: pt currently resides at [facility] Feels Safe at Home: Yes Assistive Devices: Walker and Wheelchair Review of Systems Constitutional: + fever and + chills Eyes: + corrective lenses Ear, Nose, Mouth, Throat: no hearing loss Respiratory: no cough Cardiovascular: no chest pain Gastrointestinal: no abdominal pain Genitourinary: as per Subjective / HPI Musculoskeletal: no back pain Integumentary: no rash Neurologic: no localized weakness Physical Exam Constitutional: WD/WN, vitals as above Eyes: Wears glasses ENMT: Ears: no hearing impairment and no external ear abnormality Mouth: no oropharynx abnormality Neck: trachea midline Respiratory: normal respiratory effort; no respiratory distress and no labored breathing Cardiovascular: Rate/Rhythm: regular rate and regular rhythm Gastrointestinal (Abdomen): Abdomen soft, nonrigid, nontender to palpation Musculoskeletal: Bilateral lower extremity edema noted Skin: no rashes Neurologic: moves all extremities Psychiatric: A+Ox3, euthymic affect Genitourinary: Osorio catheter is in place. It is draining clear yellow urine at this time Results & Data Vital Signs (Past 12 Hours) Vital Signs Temp Pulse Pulse Resp BP BP Pulse Ox 10/22/23 03:19 10/22/23 01:10 36.8 C 76 18 93 10/22/23 00:51 92 H 20 113/87 95 10/22/23 00:31 81 10/21/23 22:42 88 14 124/64 94 10/21/23 21:00 84 18 112/43 L 94 10/21/23 19:59 37.0 C 96 H 18 99/55 L 94 Pulse Ox O2 Del Method O2 Del Method 10/22/23 03:19 90 Room Air 10/22/23 01:10 Room Air 10/22/23 00:51 Room Air 10/22/23 00:31 10/21/23 22:42 Room Air 10/21/23 21:00 Room Air 10/21/23 19:59 Room Air PG Care Time/CCT Total # of Minutes Spent Total Time Spent with Patient: Total time spent is greater than 50% in coordination of care (as documented) at patient's floor/unit and/or counseling patient: Coding Level of Care Code 92160 INT INP/OBS CARE 3/75MIN Diagnoses Recurrent UTI (urinary tract infection) N39.0
[2023-10-22] MEDS: INSULIN ASPART PER UNIT CHARGE SC SCH (04:23)
[2023-10-22 04:58] LABS: Appearance Urine Turbid (Clear); Bacteria Urine Automated Negative (Negative); Bilirubin Urine Negative (Negative); Blood Urine 3+ (Negative); Color Urine Yellow; Epithelial Cell Urine Auto 20-30 /lpf (0-5); Glucose Urine UA Negative (Negative); Ketones Urine Negative (Negative); Leukocyte Esterase Urine 3+ (Negative); Nitrite Urine Positive (Negative); Protein Urine 1+ (Negative); RBC Urine Automated >30 /hpf (0-4); Specific Gravity Urine 1.032 (1.000-1.030); Urobilinogen Urine Negative (Negative); WBC Urine Automated >30 /hpf (0-5)
[2023-10-22] MEDS: CEFEPIME 2,000 MG in SYRINGE 0 ML IV SCH (05:59)
[2023-10-22] MEDS: FLUCONAZOLE 200 MG/100 ML BAG IV STA (06:00)
--- OUTSIDE RECORDS SUMMARY | 2023-10-22 07:24 | External Medical Summary | Summary of Care ---
Author Name Unknown Organization [facility] Address [address] [place] [address] Phone [phone] Care Team Providers Care Driver Supervisor Name Role Phone Pavan Mckeon MD Primary Care Provider [phone] Reason for Referral * Evaluate & Treat - Unlimited Visits (Within 10 days (routine)) - Pending Review Specialty Diagnoses / Procedures Referred By Hiren t Referred To Contact Infectious Diseases / Infectious Disease Diagnoses Urinary tract infection Darinel Thorpe MD [address] [place] [id number] Referral ID Status Reason Start Date Expiration Date Visits Requested Visits Authorized [id number] Pending Review Specialty Services Required 10/20/[phone] Question Answer Referral Priority Within 10 days (routine) Where should this appointment be scheduled? Sarah What condition is the patient being seen for? All Other Conditions Comments Fungal UTI Encounter Details Date Type Department Care Team ([facility] Contact Info) Description 10/20/2023 Orders Only Access Center, [address] *DO NOT REMOVE THIS DEPARTMENT* [place] [phone] Request, External Referral Urinary tract infection* Allergies Active Allergy Reactions Criticality Noted Date Comments Chas Inhibitors 11/01/2007 cough Doxycycline 02/18/1999 eyes swollen Sulfa Antibiotics 02/18/1999 wierd documented as of this encounter (statuses as of 10/20/2023) Medications Medication Sig Dispensed Refills Start Date End Date Status Meclizine HCl 25 MG Oral Tablet (Antivert) Take 1 Tablet by mouth 3 times a day as needed for Dizziness. 30 Tablet 1 01/20/2023 Active Ipratropium-Albutero l 0.5-2.5 (3) MG/3ML Inhalation Solution (Duoneb) Inhale 3 mL via nebulizer every 6 hours as needed (SOB/wheezing). 0 07/08/2023 Active Phenazopyridine HCl 200 MG Oral Tablet (Pyridium) Take 1 Tablet by mouth 3 times a day as needed (bladder spasms). 0 07/08/2023 Active Ondansetron HCl 4 MG Oral Tablet Take 1 Tablet by mouth every 8 hours as needed for Nausea or Vomiting. 0 09/02/2023 Active Apixaban 5 MG Oral Tablet (Eliquis)Indications :Paroxysmal atrial fibrillation (HCC) Take 1 Tablet by mouth in the morning and 1 Tablet before bedtime. 60 Tablet 0 10/12/2023 Active Atorvastatin Calcium 80 MG Oral Tablet (Lipitor)Indications :Dyslipidemia, goal LDL below 100 Take 1 Tablet by mouth in the morning. 30 Tablet 0 10/12/2023 Active Docusate Sodium 100 MG Oral Capsule (Colace)Indications: Slow transit constipation Take 2 Capsules by mouth every night at bedtime. 60 Capsule 0 10/12/2023 Active Escitalopram Oxalate 10 MG Oral Tablet (Lexapro)Indications :Current moderate episode of major depressive disorder, unspecified whether recurrent (HCC) Take 1 Tablet by mouth in the morning. 30 Tablet 0 10/12/2023 Active Famotidine 20 MG Oral Tablet (Pepcid)Indications: Gastroesophageal reflux disease with esophagitis, unspecified whether hemorrhage Take 1 Tablet by mouth 2 times a day as needed for Heartburn. 60 Tablet 0 10/12/2023 Active Lansoprazole 30 MG Oral Capsule Delayed Release (Prevacid)Indication s:Gastroesophageal reflux disease with esophagitis, unspecified whether hemorrhage Take 1 Capsule by mouth in the morning and 1 Capsule before bedtime. 60 Capsule 0 10/12/2023 Active Methenamine Hippurate 1 GM Oral Tablet (Hiprex)Indications: Recurrent UTI Take 1 Tablet by mouth in the morning and 1 Tablet before bedtime. 60 Tablet 0 10/12/2023 Active Metoprolol Succinate ER 50 MG Oral Tablet Extended Release 24 Hour (toPROL XL)Indications:Parox ysmal atrial fibrillation (HCC),HTN, goal below 130/80 Take 1 Tablet by mouth in the morning and 1 Tablet before bedtime. 60 Tablet 0 10/12/2023 Active Mirtazapine 15 MG Oral Tablet (Remeron)Indications :Current moderate episode of major depressive disorder, unspecified whether recurrent (HCC) Take 1 Tablet by mouth at bedtime. 30 Tablet 0 10/12/2023 Active Spironolactone 50 MG Oral Tablet (Aldactone)Indicatio ns:HTN, goal below 130/80 Take 1 Tablet by mouth in the morning. 30 Tablet 0 10/12/2023 Active traMADol HCl 50 MG Oral Tablet (Ultram)Indications: Compression fracture of lumbar vertebra with routine healing, unspecified lumbar vertebral level, subsequent encounter,Closed displaced oblique fracture of shaft of left femur with routine healing, subsequent encounter Take 1 Tablet by mouth every 6 hours as needed for Pain, Severe or Pain, Moderate. 10 Tablet 0 10/12/2023 Active Sucralfate 1 GM Oral Tablet (Carafate)Indication s:Gastroesophageal reflux disease with esophagitis, unspecified whether hemorrhage Take 1 Tablet by mouth 4 times a day before meals and at bedtime. half an hour before meals and at bedtime 120 Tablet 0 10/12/2023 Active Senna 8.6 MG Oral CapsuleIndications:S low transit constipation Take 2 Capsules by mouth every night at bedtime. 60 Capsule 0 10/12/2023 Active Nitrofurantoin Macrocrystal 100 MG Oral Capsule (Macrodantin)Indicat ions:Recurrent UTI Take 1 Capsule by mouth in the morning and 1 Capsule before bedtime. 60 Capsule 0 10/12/2023 Active Cranberry 400 MG Oral CapsuleIndications:R ecurrent UTI Take 1 Capsule by mouth daily at noon. 30 Capsule 0 10/12/2023 Active Acetaminophen 500 MG Oral Tablet (Tylenol)Indications :Compression fracture of lumbar vertebra with routine healing, unspecified lumbar vertebral level, subsequent encounter,Closed displaced oblique fracture of shaft of left femur with routine healing, subsequent encounter Take 2 Tablets by mouth in the morning and 2 Tablets before bedtime. 120 Tablet 0 10/12/2023 Active documented as of this encounter (statuses as of 10/20/2023) Active Problems Problem Noted Date Diagnosed Date Closed displaced oblique fra cture of shaft of femur with routine healing 07/08/2023 Recurrent UTI 07/08/[address] 07/08/2023 Current moderate episode of major depressive dis order 07/08/2023 Atrial fibrillation 09/29/2022 Urge incontinence 11/07/2019 Pannus, abdominal 10/25/2019 Morbid obesity with body mas s index (BMI) of 60.0 to 69.9 in adult 02/01/2019 Extrinsic asthma without complication 12/14/2017 Overview: Triggered by smells per pt History of uterine cancer 07/20/2017 HTN, goal below 130/80 11/20/2014 Type 2 diabetes mellitus wit h hemoglobin A1c goal of less than 8.0% 10/20/2013 Overview: ICD-10 update of inactive term Dyslipidemia 05/22/2013 History of DVT (deep vein thrombosis) 03/17/2011 Overview: 02/2011 - while admitted for PNA History of pulmonary embolism 03/17/2011 Overview: 02/2011 - while admitted for PNA GERD with esophagitis 03/21/2008 Venous insufficiency 05/19/2001 documented as of this encounter (statuses as of 10/20/2023) Resolved Problems Problem Noted Date Diagnosed Date Resolved Date Hypoxia 12/14/2017 12/27/2017 Overview: On oxygen Body mass index (BMI) of 60. 0 to 69.9 in adult 06/14/2017 12/27/2017 Overview: Per Obesity protocol #1 - Per Obesity Taxonomy ICD-10 update of inactive term Nonallergic rhinitis 04/25/2015 020 Cough 04/25/2015 02/09/2017 Uterus cancer 05/11/2014 07/20/2017 Advanced directives, counseling/discussion 04/30/2014 12/27/2017 Overview: Yes, copy scanned at patient level in the electronic medical record. Patient aware they must notify their healthcare provider of changes. 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 11/30/2017 Overview: benign Type 2 diabetes mellitus wit h hemoglobin A1c goal of less than 7.0% 04/30/2011 10/20/2013 Overview: ICD-10 update of inactive term long term care social worker current use of ant icoagulant therapy 03/17/2011 07/20/2017 Overview: ICD-10 update of inactive term Other pulmonary embolism and infarction 03/13/2011 03/17/2011 Hypoxemia 02/25/2011 07/20/2017 Overview: 08/03/12 RA -- low 68%, mean 89.7%, <89% 1:18 hrs, OREN 29.5 09/03/11 Noct ox RA -- low 67%, mean 90%, time <89% 1:10 hrs, OREN 30 06/18/11 Noct ox 2 LPM -- low 84%, mean 96%, time <89 1:36 mins, OREN 3.4 06/03/11 Noct ox RA -- low 50%, mean 86%, time <89% 4:16 hrs, OREN 61 2 LPM during exertion and sleep 03/12/11 Noct ox RA -- low 57%, mean 85%, time <89% 5:11 hrs, OREN 92.7 (during hospitalization with PE) AHP Bacterial pneumonia 02/24/2011 05/22/20 13 Obesity, morbid (more than 1 00 lbs over ideal weight or BMI > 40) 12/10/2009 07/08/2010 Overview: Per Obesity Taxonomy ICD-10 update of inactive term Obesity, morbid (more than 1 00 lbs over ideal weight or BMI > 40) 12/10/2009 06/17/2017 Overview: Per Obesity Taxonomy ICD-10 update of inactive term Asthma with severity to be determined 03/21/2008 03/22/2015 Overview: ICD-10 update of inactive term CHAS inhibitor intolerance 11/01/2007 Morbid obesity, BMI not known 07/20/2006 12/10/2009 Overview: Per Obesity Taxonomy Cough 01/27/2006 05/22/2013 Dyslipidemia, goal to be determined 04/08/2004 07/08/2010 KNEE PAIN, RIGHT 05/25/2003 05/22/2013 Spasm of muscle 05/25/2003 05/22/2013 PATELLO-FEMORAL PAIN SYNDROME 05/25/2003 07/20/2017 lipodermatosclerosis 06/08/2002 018 Dyslipidemia, goal to be determined 10/04/2000 07/08/2010 Edema 10/04/2000 05/22/2013 Irritable bowel syndrome DIVERTICULOSIS OF COLON 11/2017 OBESITY, UNSPECIFIED 010 Overview: Per Obesity Taxonomy documented as of this encounter (statuses as of 10/20/2023) Immunizations Name Administration Dates Next Due Pneumococcal Conjugate Vacc, 13 Valent (Prevnar) 08/20/2015 Pneumococcal Polysaccharide PPV23 (Pneumovax) 11/27/2011 Seasonal Influenza, PF, 6 M & above, IM , (FluLaval or Fluzone) 06/01/2020,06/16/2019,09/29/2018 Seasonal Influenza, Quadriva lent Hd (Fluzone Hd) 10/16/2022 Seasonal Influenza, Quadriva lent, No Preserve, IM 05/26/2017,07/14/2016,08/20/2015 Seasonal Influenza, Split, I IV3, With Preserve, Inj 07/02/2014,06/05/2013,05/23/2012,06/11,06/11/2010,06/05/2009,07/04/2008 ,09/26/2007,07/15/2006 TDAP (age 11 and older)(Adacel) 03/26/2011 Varicella Zoster Vaccine (Adult) 06/29/2012 documented as of this encounter Social History Tobacco Use Types Packs/Day Years Used Date Smoking Tobacco: Never Smokeless Tobacco: Never Comments:second hand smoke a s a child, father smoked Alcohol Use Standard Drinks/Week Comments No 0 (1 standard drink = 0.6 oz pur e alcohol) PHQ-2 Answer Date Recorded PHQ-2 Score 0 02/26/2020 Hunger Vital Sign Answer Date Recorded Within the past 12 months, y ou worried that your food would run out before you got the money to buy more. Never true 02/10/20 23 Within the past 12 months, t he food you bought just didn't last and you didn't have money to get more. Never true 02/09/2023 Sex and Gender Information Value Date Recorded Sex Assigned at Female 12/01/2018 10:39 AM EDT Gender Identity Female 12/01/2018 10:39 AM EDT Sexual Orientation Straight 12/01/2018 10 :39 AM EDT Job Start Date Occupation Industry Not on file Not on file Not on file documented as of this encounter Functional Status Functional Status Response Date of Assess ment Are you deaf or do you have serious difficulty h earing? No 07/24/2014 Are you blind or do you have serious difficulty seeing, even when wearing glasses? No 07/24/2014 Do you have serious difficul ty walking or climbing stairs? (5 years old or older) No 07/24/2014 Do you have difficulty dress ing or bathing? (5 years old or older) No 07/24/2014 Because of a physical, menta l, or emotional condition, do you have difficulty doing errands alone such as visiting a doctor s office or shopping? (15 years old or older) No 07/24/20 14 Cognitive Status Response Date of Assessm ent Because of a physical, menta l, or emotional condition, do you have serious difficulty concentrating, remembering, or making decisions? (5 years old or older) No 07/24/2014 documented as of this encounter Plan of Treatment Upcoming Encounters Date Type Department Care Team (Late st Contact Info) Description 03/15/2024 2:30 PM EDT Office Visit Urology, [facility] [address] [facility] [place] [id number] Ryley Freeman MD [address] [facility] [address] [place] [id number] Scheduled Referrals Name Type Priority Associated Diagnoses Orde r Schedule INFECTIOUS DISEASE REFERRAL OP Referral Within 10 days (routine) Urinary tract infection Ordered: 10/20/2023 Health Maintenance Due Date Last Done Comments DXA Scan 1945 Hepatitis B (1 of 3 - Risk 3-dose series) 2006 Zoster Vaccines (2 of 3) 08/24/2012 06/29/2012 Depression Screening 02/19/2021 02/20/2020 Diabetic Foot Exam 02/25/2021 02/26/2020, 0 02/01/2019, 01/07/2015, Additional history exists DTaP,Tdap,and Td Vaccines (2 - Td or Tdap) 03/26/2021 03/26/2011, 04/02/2000 Diabetic Eye Exam 07/29/2021 07/29/2020, , 06/27/2018, Additional history exists COVID-19 Vaccine ( season) 2023 09/01/2021, 03/05/2021, 02/11/2021, Additional history exists Influenza Vaccine (FLU shot) (#1) 2023 10/16/2022, 06/01/2020, 06/16/2019, Additional history exists HbA1c 10/16/2023 04/15/2023, 090 04/2022, 09/04/2021, Additional history exists Albumin/Creatinine Ratio 04/15/2024 023, 08/25/2019, 02/01/2019, Additional history exists GFR 09/29/2024 09/29/2023, 09/13, 09/21/2023, Additional history exists Pneumococcal Vaccine: 65+ Years Completed 08/20/2015, 11/27/2011, 08/08/2002, Additional history exists GARDASIL-HPV IMMUNIZATION SERIES Aged Out No longer eligible based on patient's age to complete this topic MENINGOCOCCAL (MENACTRA/MENVEO) Aged Out No longer eligible based on patient's age to complete this topic documented as of this encounter Medical Devices Not on filedocumented as of this encounter Visit Diagnoses Diagnosis Urinary tract infection- Primary Urinary tract infection, site not specified documented in this encounter Advance Directives Latest Code Status on File Code Status Date Activated Date Inactivated Comments Full Code 07/24/2014 7:59 AM 07/26/2014 10:17 PM Th is order reflects the patients wishes and were consensually agreed upon. Care Teams Driver Supervisor Relationship Specialty Start Date End Date Pavan Mckeon MD [address] [place] [address] PCP - General 11/09/02 documented as of this encounter
--- NOTE | 2023-10-22 07:59 | XRay Report ---
XR chest 1V portable CLINICAL HISTORY: Sepsis. COMPARISON STUDY: Chest CT June 28, 2023. Chest radiograph July 04, 2023. FINDINGS: Old right humeral neck fracture is incidentally noted. Cardiomegaly is unchanged. Mediastin al contours are stable. No evidence for pulmonary edema or pneumonia. No pneumothorax or pleural effu homar. Linear left basilar densities favor atelectasis or scarring. IMPRESSION: No acute cardiopulmonary findings. ACT 112: Negative or not required by law. Electronically signed by: Anibal Amos M.D. 10/22/2023 7:57 AM
[2023-10-22] MEDS: traMADol HCL 50 MG TABLET PO PRN (09:45)
[2023-10-22] MEDS: SUCRALFATE 1 GM TAB PO SCH (09:45)
[2023-10-22] MEDS: FAMOTIDINE 20 MG TAB PO SCH (09:46)
[2023-10-22] MEDS: PANTOprazole 40 MG TAB PO SCH (09:46)
[2023-10-22] MEDS: ESCITALOPRAM OXALATE 10 MG TAB PO SCH (09:49)
[2023-10-22] MEDS: METOPROLOL SUCC 50MG EXT REL TAB PO SCH (09:49)
[2023-10-22] MEDS: APIXABAN 5 MG TABLET PO SCH (09:49)
[2023-10-22 10:23] LABS: A calco-baum cmplx NotReported Not Detected (NotDetected); Bact fragilis Not Reported Not Detected (NotDetected); Blood Culture Id Panel See PCR Comment (NotDetected); C auris Not Reported Not Detected (NotDetected); CTX-M Resistant Gene Not Detected (NotDetected); Calbicans Not Reported Not Detected (NotDetected); Candida glabrata Not Reported Not Detected (NotDetected); Candida krusei Not Reported Not Detected (NotDetected); Cneoformans/gatti Not Reported Not Detected (NotDetected); Cparapsilosis Not Reported Not Detected (NotDetected); E cloacae compx Not Reported Not Detected (NotDetected); Efaecalis Not Reported Not Detected (NotDetected); Efaecium Not Reported Not Detected (NotDetected); Enterobacterales DETECTED (NotDetected); Enterobacterales Not Reported DETECTED (NotDetected); Escherichia coli Not Reported DETECTED (NotDetected); H influenzae Not Reported Not Detected (NotDetected); IMP Resistant Gene Not Detected (NotDetected); K aerogenes Not Reported Not Detected (NotDetected); KPC Resistant Gene Not Detected (NotDetected); Koxytoca Not Reported Not Detected (NotDetected); Kpneumoniae grp Not Reported Not Detected (NotDetected); Lmonocyt Not Reported Not Detected (NotDetected); N meningitidis Not Reported Not Detected (NotDetected); NDM Resistant Gene Not Detected (NotDetected); OXA 48 Like Resistant Gene Not Detected (NotDetected); P aeruginosa Not Reported Not Detected (NotDetected); Proteus spp Not Reported Not Detected (NotDetected); Salmonella spp Not Reported Not Detected (NotDetected); Smarcescens Not Reported Not Detected (NotDetected); Staph lugdunensis Not Reported Not Detected (NotDetected); Staph spp. Not Reported Not Detected (NotDetected); Staphaureus Not Reported Not Detected (NotDetected); Staphepi Not Reported Not Detected (NotDetected); Stenmaltophilia Not Reported Not Detected (NotDetected); Strep agal(GrpB) Not Reported Not Detected (NotDetected); Strep pneum Not Reported Not Detected (NotDetected); Strep pyog (GrpA) Not Reported Not Detected (NotDetected); Strep spp Not Reported Not Detected (NotDetected); VIM Resistant Gene Not Detected (NotDetected); mcr-1 Colistin Resistant Gene Not Detected (NotDetected)
--- NOTE | 2023-10-22 11:01 | Electrocardiogram Report ---
Test Reason : Blood Pressure : / mmHG Vent. Rate : 085 BPM Atrial Rate : 000 BPM P-R Int : 000 ms QRS Dur : 082 ms QT Int : 352 ms P-R-T Axes : 000 001 018 degrees QTc Int : 418 ms Atrial fibrillation Low voltage QRS Poor R wave progression, consider anterior MA vs. lead placement vs. LVH Abnormal ECG When compared with ECG of 07-OCT-2023 07:22, No significant change Confirmed by Ramakrishna Wise ([id number]) on 10/22/2023 11:00:53 AM Referred By: REFERRED SELF Confirmed By:Ramakrishna Wise
--- NOTE | 2023-10-22 11:28 | Urology Progress Note ---
Date of Service October 22, 2023 Assessment & Plan (1) Complicated UTI (urinary tract infection): Plan 78yo F who recently underwent operative intervention by Dr. Thorpe on 10/07/2023 at which time he performed a cystoscopy with a extraction of a left ureteral stone and insertion of a left ureteral stent. Patient has since followed up with Dr. Thorpe on 10/15/2023 for stent removal. She presented to the ED on 10/21/23 with weakness and fever and admitted with suspected UTI. Afebrile and hemodynamically stable. Labs show a leukocytosis of 12.43, hemoglobin 9.6, creatinine 0.55. Urine and blood cultures are pending. Osorio intact and draining appropriately. CT abd pelvis reviewed - Mild left hydroureteronephrosis with no obvious obstructing stone. No plan for urological intervention. Continue supportive care. Continue antibiotics and tailor as culture data becomes available. Maintain Osorio catheter. Urology will follow. Admission and Anticipated Discharge Date Admission Date: October 22, 2023 Subjective Pt examined at bedside in the ED. Awake, resting in bed on arrival. No acute distress. Has been NPO. Osorio draining clear yellow urine. She denies any significant pain or discomfort at present. Denies f/c/n/v at present. Review of Systems Constitutional: as per Subjective / HPI Genitourinary: as per Subjective / HPI Physical Exam Constitutional: no acute distress Respiratory: no respiratory distress and no labored breathing Neurologic: awake Psychiatric: A+Ox3, euthymic affect Genitourinary: Osorio intact Results & Data Vital Signs (Past 12 Hours) Vital Signs Temp Pulse Pulse Resp BP BP Pulse Ox 10/22/23 09:37 37.0 C 80 20 91/53 L 99 10/22/23 08:37 85 10/22/23 04:13 37.6 C 96 H 20 95/68 L 99 10/22/23 03:19 10/22/23 01:10 36.8 C 76 18 93 10/22/23 00:51 92 H 20 113/87 95 10/22/23 00:31 81 Pulse Ox O2 Del Method O2 Del Method O2 Flow Rate 10/22/23 09:37 Nasal Cannula 10/22/23 08:37 10/22/23 04:13 Nasal Cannula 2 10/22/23 03:19 90 Room Air 10/22/23 01:10 Room Air 10/22/23 00:51 Room Air 10/22/23 00:31 PG Care Time/CCT Total # of Minutes Spent Total Time Spent with Patient: Total time spent is greater than 50% in coordination of care (as documented) at patient's floor/unit and/or counseling patient: Coding Level of Care Code None Diagnoses Complicated UTI (urinary tract infection) N39.0
--- NOTE | 2023-10-22 13:10 | Infectious Disease Consult ---
<Statement entered by Romaine Banda II, DO - 10/22/23 15:05> Reviewed all patient documentation and labs and agree with Dr. Callejas's Note and Plan. - Romaine Banda D.O. Date of Service October 22, 2023 Telehealth Information I performed this visit using a real-time telehealth connection between my location and the patients location ([facility]). After connecting through interactive tele-video, patient was identified by name and date of and/or wristband check.Patient (or authorized healthcare credit and collections representative) was informed that this was a telemedicine visit and it was being conducted confidentially over secure lines. My office door was closed and no one else was present in the room with me.Patient (or authorized healthcare credit and collections representative) provided consent to proceed with the visit, expressed an understanding of privacy and security of the telemedicine visit, and gave permission to have a hospital credit and collections representative in the room in order to assist with the visit and to conduct portions of the visit, as needed. I informed the patient (or authorized healthcare credit and collections representative) that I reviewed their record and presented the opportunity for them to ask any questions regarding the visit today. The patient agreed to participate. Assessment & Plan (1) Fever: (2) Urinary retention: (3) Recurrent UTI (urinary tract infection): (4) Complicated UTI (urinary tract infection): (5) Sepsis: Plan Patient with a history of chronic indwelling Osorio presenting with fevers again found to have a complicated urinary tract infection with bacteremia. She has a recent history of ureteroscopy with stent placement with Urology. Cultures at that time grew Pseudomonas and Gina glabrata. She received a course of ciprofloxacin. She is currently receiving cefepime and 200 mg of fluconazole. I do not think that the Gina glabrata is a pathogen in this situation given the fact that the Gram-negative bony is growing in her bloodstream and she is improving with cefepime. Gina glabrata is frequently resistant to fluconazole and when sensitive requires high doses for treatment so at this time she has essentially not being treated for funguria. plan: Continue cefepime pending further culture information Stop Fluconazole History of Present Illness History of Present Illness patient with a history of recurrent UTIs and chronic Osorio on methenamine presenting with fevers. she recently underwent ureteroscopy with orthopedics with stent placement. Cultures at that time grew Gina glabrata and Pseudomonas. She was treated with a course of ciprofloxacin. This admission she had had findings concerning for urinary tract infection and both urine and blood cultures are growing a Gram-negative bony. The patient is currently receiving cefepime. When I evaluated her she stated that she was feeling much better since receiving antibiotics. Allergies Allergy/AdvReac Type Severity Reaction Status Date / Time doxycycline Allergy Intermediate SWELLING Verified 10/21/23 22:48 codeine Allergy Mild PER Verified 10/21/23 22:48 PATIENT "MADE HER MARY ANNE CRAZY" WHEN SHE TOOK ALOT Sulfa (Sulfonamide Allergy Mild Gastrointestinal Verified 10/21/23 22:48 Antibiotics) Upset tetracycline Allergy Mild SWELLING Verified 10/21/23 22:48 TO EYES NARINDER Inhibitors AdvReac Intermediate cough Verified 10/21/23 22:48 Home Medications Medication Instructions Recorded Confirmed Type Calcium Antacid Tab 2 - 4 tabs PO .Q1HR PRN Heartburn 06/28/23 10/21/23 History acetaminophen 500 mg tablet 500 mg PO Q6H PRN Fever Or Pain 06/28/23 10/21/23 History (Tylenol Extra Strength) apixaban 5 mg tablet (Eliquis) 5 mg PO [facility] 06/28/23 10/21/23 History atorvastatin 80 mg tablet 80 mg PO HS 06/28/23 10/21/23 History cranberry 400 mg capsule 800 mg PO DAILY 06/28/23 10/21/23 History famotidine 20 mg tablet 20 mg PO AMPM 06/28/23 10/21/23 History lansoprazole 30 mg capsule,delayed 30 mg PO BID 06/28/23 10/21/23 History release meclizine 25 mg tablet 25 mg PO TID PRN DIZZY 06/28/23 10/21/23 History methenamine hippurate 1 gram tablet 1 g PO BID 06/28/23 10/21/23 History metoprolol succinate 50 mg 50 mg PO [facility] 06/28/23 10/21/23 History tablet,extended release 24 hr nystatin 100,000 unit/gram topical 1 applic topical [facility] 06/28/23 10/21/23 History powder (Nystop) phenazopyridine 200 mg tablet 200 mg PO Q8 PRN .BLADDER SPASMS 06/28/23 10/21/23 History spironolactone 25 mg tablet 25 mg PO QAM 06/28/23 10/21/23 History tramadol 50 mg tablet 50 - 100 mg PO Q6 PRN Pain 06/28/23 10/21/23 History cefadroxil 500 mg capsule 500 mg PO BID PRN intraoperative 07/14/23 10/21/23 Rx pain 10 days #20 caps docusate sodium 100 mg capsule 100 mg PO HS 09/14/23 10/21/23 History (Colace) escitalopram oxalate 10 mg tablet 10 mg PO QAM 09/14/23 10/21/23 History (Lexapro) ipratropium 0.5 mg-albuterol 3 mg 3 ml inhalation Q6H PRN sob 09/14/23 10/21/23 History (2.5 mg base)/3 mL nebulization soln mirtazapine 15 mg tablet (Remeron) 15 mg PO HS 09/14/23 10/21/23 History ondansetron HCl 4 mg tablet 4 mg PO Q8H PRN Nausea And Vomiting 09/14/2305/06 History sennosides 8.6 mg tablet 8.6 mg PO HS 09/14/23 10/21/23 History sucralfate 1 gram tablet (Carafate) 1 g PO ACHS 09/14/23 10/21/23 History ciprofloxacin HCl 500 mg tablet 500 mg PO Q12H #14 tabs 10/13/23 10/21/23 Rx (Cipro) Patient History Medical History Atrial fibrillation on Eliquis, last saw cardiology several yrs ago per chart review of [facility] EMR History of femur fracture 06/2023- left; s/p nail fixation Nephrolithiasis Anemia per chart review, 'baseline hgb 10-11' assisted resident pt currently resides at [facility] Nontoxic thyroid nodule Hx: UTI (urinary tract infection) recurrent Hx of sepsis Morbid obesity Diabetes mellitus, type II diet controlled Vertigo Lipodermatosclerosis Vitreous detachment of both eyes History of anesthesia reaction 'woke up during D&C and colonoscopy' On home O2 2 lpm qHS GERD (gastroesophageal reflux disease) diet controlled Chronic bronchitis 'bronchial asthma' 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 > gets therapy/massage to manage > was complication after radiation treatment per previous PAT RN notation Overactive bladder IBS (irritable bowel syndrome) Uterine cancer Apr 2014 > radiation > resolved per previous PAT RN notation Pulmonary embolism February 2011 > caused by prolonged sitting during a previous hospitalization per previous PAT RN notation Deep vein thrombosis February 2011 > caused by prolonged sitting during a previous hospitalization per previous PAT RN notation Hypertension Hyperlipidemia Asthma well controlled > just triggered by odors; no inhalers per previous PAT shingle sawyer History Hx of cystoscopy w/ stent placement 11/2022 (MAC without issue) History of cataract surgery R cataract 02/26/21 @ [facility]; MAC without issue L cararact 03/12/21 @ [facility]; MAC without issue History of dilatation and curettage History of esophagogastroduodenoscopy (EGD) History of colonoscopy History of bilateral tubal ligation History of cholecystectomy Hx of hernia repair VENTRAL WITH MESH 12/19/2017: [place]: Glidescope #3, ETT #7.5, Gr View 1; 'elective glidescope; easy/atraumatic' (procedure was emergent 10/15 associated with a bowel obstruction) History of tooth extraction History of cardiac cath NO STENTS > OVER 10 YRS AGO > DONE FOR CP Family History Other No family history of adverse response to anesthesia Social History Smoking Status: Never smoker Second Hand Exposure: No; Do You Dip or Chew Tobacco: No; Hx Alcohol Use: No Hx Substance Use: No Preferred Language: Beninese Communication Ability: Effective Communication Ability Comment: alert and oriented x3 - of sound mind to sign consent Visual Impairment: No Limitations Registered Associate Required: No Beliefs That Will Affect Care: None Current Living Situation: Personal Care Facility Current Living Situation Comment: pt currently resides at [facility] Feels Safe at Home: Yes Safety Concerns: Feels Safe At This Time Assistive Devices: Glasses and Wheelchair Review of Systems Full ROS was performed and is negative unless mentioned in the HPI. Physical Exam Exam limited by TeleMed patient comfortable in bed Results & Data Vital Signs (Past 12 Hours) Vital Signs Temp Pulse Pulse Resp BP BP Pulse Ox 10/22/23 09:37 37.0 C 80 20 91/53 L 99 10/22/23 08:37 85 10/22/23 04:13 37.6 C 96 H 20 95/68 L 99 10/22/23 03:19 10/22/23 01:10 36.8 C 76 18 93 Pulse Ox O2 Del Method O2 Del Method O2 Flow Rate 10/22/23 09:37 Nasal Cannula 10/22/23 08:37 10/22/23 04:13 Nasal Cannula 2 10/22/23 03:19 90 Room Air 10/22/23 01:10 Room Air Laboratory Results Microbiology 10/21/23 20:40 Blood Aerobic Blood Culture - Preliminary Gram negative bacilli 10/21/23 20:40 Blood Anaerobic Blood Culture - Preliminary Gram negative bacilli 10/21/23 20:32 Urine,Indwelling Cath Urine Culture - Preliminary Gram negative bacilli Diagnostic Findings Chest X-Ray 10/21/23 20:08 XR chest 1V portable CLINICAL HISTORY: Sepsis. COMPARISON STUDY: Chest CT June 28, 2023. Chest radiograph July 04, 2023. FINDINGS: Old right humeral neck fracture is incidentally noted. Cardiomegaly is unchanged. Mediastinal contours are stable. No evidence for pulmonary edema or pneumonia. No pneumothorax or pleural effusion. Linear left basilar densities favor atelectasis or scarring. IMPRESSION: No acute cardiopulmonary findings. ACT 112: Negative or not required by law. Electronically signed by: Anibal Amos M.D. 10/22/2023 7:57 AM Abdomen/Pelvis CT 10/21/23 22:26 Exam(s): CT ABDOMEN + PELVIS With Contrast IV Amt: 90 ml optiray 320 EXAM: CT Abdomen and Pelvis With Intravenous Contrast CLINICAL HISTORY: Reason for exam: hx stones/pyelo. TECHNIQUE: Axial computed tomography images of the abdomen and pelvis with intravenous contrast. Automated exposure control was utilized for the study. A dose lowering technique was utilized adhering to the principles of ALARA. CONTRAST: Patient received 90 ml optiray 320 of IV contrast COMPARISON: No relevant prior studies available. FINDINGS: Lung bases: Unremarkable. No mass. No consolidation. ABDOMEN: Liver: Unremarkable. No mass. Gallbladder and bile ducts: Unremarkable. No calcified stones. No ductal dilation. Pancreas: Unremarkable. No mass. No ductal dilation. Spleen: Unremarkable. No splenomegaly. Adrenals: Unremarkable. No mass. Kidneys and ureters: Mild left hydroureter ureter with subtle delayed enhancement suggesting obstructive uropathy. No ureteral renal or bladder calculi identified on this exam. left renal cyst. Measuring 3.0 cm. Stomach and bowel: Unremarkable. No obstruction. No mucosal thickening. PELVIS: Appendix: No findings to suggest acute appendicitis. Bladder: Osorio catheter within the urinary bladder. Reproductive: Unremarkable as visualized. ABDOMEN and PELVIS: Intraperitoneal space: Unremarkable. No free air. No significant fluid collection. Bones/joints: Postoperative changes ORIF left hip fracture. L2 superior endplate compression deformity likely acute nature. No dislocation. Soft tissues: Unremarkable. Vasculature: Unremarkable. No abdominal aortic aneurysm. Lymph nodes: Unremarkable. No enlarged lymph nodes. IMPRESSION: Acute L2 superior endplate compression deformity. Mild left hydroureteronephrosis with delayed enhancement of the left kidney. No obvious obstructing ureteral calculus identified on this exam the findings are suggestive of a recently passed ureteral calculus. Electronically signed by: Servando Em MD 10/22/23 00:55 AM Medications Administered Home Medications Medication Instructions Recorded Confirmed Last Taken Calcium Antacid Tab 2 - 4 tabs PO .Q1HR PRN Heartburn 06/28/23 10/21/23 Unknown acetaminophen 500 mg tablet 500 mg PO Q6H PRN Fever Or Pain 06/28/23 10/21/23 10/06/23 20:00 (Tylenol Extra Strength) apixaban 5 mg tablet (Eliquis) 5 mg PO [facility] 06/28/23 10/21/23 10/21/23 08:00 atorvastatin 80 mg tablet 80 mg PO HS 06/28/23 10/21/23 10/20/23 cranberry 400 mg capsule 800 mg PO DAILY 06/28/23 10/21/23 10/21/23 famotidine 20 mg tablet 20 mg PO AMPM 06/28/23 10/21/23 10/21/23 08:00 lansoprazole 30 mg capsule,delayed 30 mg PO BID 06/28/23 10/21/23 10/21/23 08:00 release meclizine 25 mg tablet 25 mg PO TID PRN DIZZY 06/28/23 10/21/23 Unknown methenamine hippurate 1 gram tablet 1 g PO BID 06/28/23 10/21/23 10/21/23 08:00 metoprolol succinate 50 mg 50 mg PO [facility] 06/28/23 10/21/23 10/21/23 08:00 tablet,extended release 24 hr nystatin 100,000 unit/gram topical 1 applic topical [facility] 06/28/23 10/21/23 10/21/23 08:00 powder (Nystop) phenazopyridine 200 mg tablet 200 mg PO Q8 PRN .BLADDER SPASMS 06/28/23 10/21/23 Unknown spironolactone 25 mg tablet 25 mg PO QAM 06/28/23 10/21/23 10/21/23 tramadol 50 mg tablet 50 - 100 mg PO Q6 PRN Pain 06/28/23 10/21/23 10/02/23 05:40 cefadroxil 500 mg capsule 500 mg PO BID PRN intraoperative 07/14/23 10/21/23 Unknown pain 10 days #20 caps docusate sodium 100 mg capsule 100 mg PO HS 09/14/23 10/21/23 10/20/23 (Colace) escitalopram oxalate 10 mg tablet 10 mg PO QAM 09/14/23 10/21/23 10/21/23 (Lexapro) ipratropium 0.5 mg-albuterol 3 mg 3 ml inhalation Q6H PRN sob 09/14/23 10/21/23 09/27/23 10:25 (2.5 mg base)/3 mL nebulization soln mirtazapine 15 mg tablet (Remeron) 15 mg PO HS 09/14/23 10/21/23 10/20/23 ondansetron HCl 4 mg tablet 4 mg PO Q8H PRN Nausea And Vomiting 09/14/23 10/21/23 Unknown sennosides 8.6 mg tablet 8.6 mg PO HS 09/14/23 10/21/23 10/20/23 sucralfate 1 gram tablet (Carafate) 1 g PO ACHS 09/14/23 10/21/23 10/21/23 ciprofloxacin HCl 500 mg tablet 500 mg PO Q12H #14 tabs 10/13/23 10/21/23 Unknown (Cipro) Active Medications Generic Name Dose Route Start Last Admin Trade Name Freq PRN Reason Stop Dose Admin Apixaban 5 mg 10/22/23 09:00 10/22/23 09:49 Apixaban 5 Mg Tablet PO 11/21/23 08:59 5 mg [facility] ANA PAULA Administration Escitalopram Oxalate 10 mg 10/22/23 09:00 10/22/23 09:49 Escitalopram Oxalate 10 Mg Tab PO 11/21/23 08:59 10 mg QAM ANA PAULA Administration Famotidine 20 mg 10/22/23 09:00 10/22/23 09:46 Famotidine 20 Mg Tab PO 11/21/23 08:59 20 mg BID ANA PAULA Administration Insulin Aspart 0 units 10/22/23 03:30 10/22/23 09:33 Insulin Aspart Per Unit Charge SC 11/21/23 03:29 Not Given ACHS ANA PAULA Metoprolol Succinate 50 mg 10/22/23 09:00 10/22/23 09:49 Metoprolol Succ 50mg Ext Rel Tab PO 11/21/23 08:59 Not Given [facility] ANA PAULA Pantoprazole Sodium 40 mg 10/22/23 09:00 10/22/23 09:46 Pantoprazole 40 Mg Tab PO 11/21/23 08:59 40 mg BID ANA PAULA Administration Sucralfate 1 gm 10/22/23 07:30 10/22/23 12:15 Sucralfate 1 Gm Tab PO 11/21/23 07:29 1 gm ACHS ANA PAULA Administration Tramadol HCl 25 - 50 mg 10/22/23 05:23 10/22/23 09:45 Tramadol Hcl 50 Mg Tablet PO 11/21/23 05:22 25 mg Q4H PRN Administration Pain
[2023-10-22] MEDS: cefTRIAXone SODIUM 2,000 MG in DEXTROSE 5 % MINI-B 50 ML IV SCH (15:38)
--- NOTE | 2023-10-22 16:20 | Hospitalist Progress Note ---
Date of Service October 22, 2023 Assessment & Plan (1) Sepsis: Plan: Sepsis Complicated UTI Bacteremia H/O Pseudomonas UTI--was treated with ciprofloxacin Chronic indwelling Osorio catheter S/P cystoscopy with extraction of left ureteral stone and insertion of left ureteral stent on 10/07/[address] Thorpe. Patient had stent removal on 10/15/2023. --CT ABD:Mild left hydroureteronephrosis with delayed enhancement of the left kidney. No obvious obstructing ureteral calculus identified on this exam the findings are suggestive of a recently passed ureteral calculus. -- Urine culture growing gram-negative --Blood culture growing gram-negative bacilli --BioFire suggestive of E. coli, Enterobacter Rales -- Currently on cefepime, fluconazole>> transition to ceftriaxone Appreciate ID input: Gina glabrata not likely pathogen per ID. Discontinue fluconazole as per ID Will adjust medications based on cultures Appreciate urology input: Currently no plan for urological intervention. Maintain Osorio catheter. Repeat blood cultures tomorrow Suspected L2 superior endplate compression deformity Will consider further imaging if patient clinically complains of back pain Monitor Chronic anemia Hemoglobin at baseline Monitor CBC Chronic Atrial fibrillation H/O PE/DVT Continue metoprolol On Eliquis for anticoagulation DM II Last HbA1c 6.1 Continue insulin per protocol while hospitalized Monitor BGs Other chronic conditions: Hypertension--continue metoprolol hyperlipidemia--continue statin Valvular heart disease (mild AR/TR) Bronchial Asthma--no signs of exacerbation GERD--continue PPI, Carafate Endometrial cancer S/P Radiation, In remission per record Chronic lymphedema--monitor volume status Morbid obesity BMI 46 DVT Px: Eliquis CODE STATUS Full code Disposition PT OT prior to discharge Admission and Anticipated Discharge Date Admission Date: October 22, 2023 Subjective Patient is seen and examined at bedside Admits to have right-sided abdominal pain Denies any chest pain, dyspnea, dizziness, nausea, vomiting Afebrile today Review of Systems Review of Systems: All systems reviewed & are unremarkable except as noted in Subjective Physical Exam Physical Exam: Physical Exam: Vitals signs as noted above General Appearance:Obese, no apparent distress Head: normocephalic, Atraumatic Eyes: normal inspection, EOMI Neck: supple, Trachea midline Respiratory/Chest: Decreased breath sounds, CTA, No accessory muscle use Cardiovascular: Irregularly irregular, No murmur Abdomen/GI:Soft, Right mild tender, Bowel sounds present Extremities/Musculoskeletal:normal inspection, + B/L LE edema Neurologic/Psych:AAOX3, grossly no focal neurological deficits Skin: normal color, warm Results & Data Results & Data Vital Signs (Past 12 Hours) Vital Signs Temp Pulse Pulse Resp BP BP Pulse Ox 10/22/23 15:21 37.0 C 70 18 146/69 H 99 10/22/23 14:46 90 18 119/66 96 10/22/23 09:37 37.0 C 80 20 91/53 L 99 10/22/23 08:37 85 10/22/23 07:30 10/22/23 04:13 37.6 C 96 H 20 95/68 L 99 O2 Del Method O2 Flow Rate 10/22/23 15:21 Nasal Cannula 2 10/22/23 14:46 Nasal Cannula 4 10/22/23 09:37 Nasal Cannula 10/22/23 08:37 10/22/23 07:30 Nasal Cannula 4 10/22/23 04:13 Nasal Cannula 2 Laboratory Results Short CBC 10/21/23 Range/Units 20:23 WBC 12.43 H (4.8-10.8) K/ul Hgb 9.6 L (12.0-16.0) g/dl Hct 31.0 L (37.0-47.0) % Plt Count 293 (130-400) K/uL BMP 10/21/23 20:23 Sodium 137 Potassium 4.1 Chloride 102 Carbon Dioxide 29 BUN 11 Creatinine 0.55 L Glucose 112 H Calcium 8.4 L Liver Function 10/21/23 Range/Units 20:23 Total Bilirubin 0.6 (0.2-1.0) mg/dl Direct Bilirubin 0.1 (0-0.2) mg/dl AST 9 L (13-39) U/L ALT 6 L (7-52) U/L Alkaline Phosphatase 123 H (34-104) U/L Albumin 2.9 L (3.4-5.0) gm/dl Urine 10/22/23 Range/Units 04:00 Urine Color Yellow Urine Appearance Turbid A (Clear) Urine pH 6.0 (4.5-7.5) Ur Specific Wayne 1.032 H (1.000-1.030) Urine Protein 1+ H (Negative) Urine Glucose (UA) Negative (Negative)
[2023-10-22] MEDS: ATORVASTATIN 40 MG TAB PO SCH (21:34)
[2023-10-22] MEDS: DOCUSATE SODIUM 100 MG CAP PO SCH (21:34)
[2023-10-22] MEDS: MIRTAZAPINE TAB 15 MG TAB PO SCH (21:35)
[2023-10-22] MEDS: SENNA 8.6 MG TAB PO SCH (21:36)
[2023-10-23 06:36] LABS: Hematocrit (blood only) 25.6 % (37.0-47.0); Mean Corpuscular Hgb Conc 31.3 g/dL (32.0-36.0); Mean Corpuscular Volume 89.5 fL (80.0-100.0); Platelet Count 228 K/uL (130-400); RDW Coefficient of Variation 15.2 % (11.5-14.5); RDW Standard Deviation 50.2 fL (36.4-46.3); Red Blood Count 2.86 M/uL (4.20-5.40)
[2023-10-23 07:52] LABS: Magnesium 1.8 mg/dl (1.7-2.4); Potassium 3.8 mmol/L (3.5-5.1)
[2023-10-23 07:57] LABS: BUN Creatinine Ratio 15.6 (10-20); Creatinine Clr Calc Pharmacy 129.9 ml/min; Est GFR (Non-African American) 96.7 ml/min
[2023-10-23] MEDS ORDERED: FLUCONAZOLE 100 MG TAB PO SCH (09:00)
--- NOTE | 2023-10-23 09:16 | Urology Progress Note ---
Date of Service October 23, 2023 Assessment & Plan (1) Urinary retention: (2) Recurrent UTI (urinary tract infection): Plan Sepsis with suspected E. coli (currently gram-negative rods but urine culture showing E. coli) On cefepime Objectively seems to be improving with improvement in her leukocytosis, afebrile, Tmax 37 5 overnight Creatinine stable at 0.45 Discussed different options For now I think the best course would be to allow antibiotics to treat her infection and avoid any surgical intervention She did have a stent recently but I am uncertain that a stent would improve her condition I think there is a higher probability could actually worsen her current condition Continue the Osorio catheter which has been in place for several months We will follow from a distance as I do not anticipate any required intervention from urology Admission and Anticipated Discharge Date Admission Date: October 22, 2023 Subjective Slightly improved from yesterday but still reports that she is quite fatigued and is fearful that she cannot return to her nursing home because of her change in condition Afebrile overnight Hemodynamically stable Still on nasal cannula oxygen Tolerating a diet Urine is clear in the Osorio catheter bag Physical Exam Physical Exam: Lying in bed, minimally mobile Osorio in place with clear urine Results & Data Vital Signs (Past 12 Hours) Vital Signs Temp Pulse Pulse Pulse Resp BP Pulse Ox 10/23/23 07:41 36.8 C 81 20 129/64 99 10/23/23 03:42 37.3 C 70 16 119/74 94 10/23/23 03:19 10/22/23 23:07 37.1 C 80 18 117/67 96 10/22/23 22:22 10/22/23 21:58 83 O2 Del Method O2 Del Method O2 Flow Rate O2 Flow Rate 10/23/23 07:41 Nasal Cannula 2 10/23/23 03:42 Nasal Cannula 2 10/23/23 03:19 Nasal Cannula 2 10/22/23 23:07 Nasal Cannula 2 10/22/23 22:22 Nasal Cannula 2 10/22/23 21:58 PG Care Time/CCT Total # of Minutes Spent Total Time Spent with Patient: Total time spent is greater than 50% in coordination of care (as documented) at patient's floor/unit and/or counseling patient: Coding Level of Care Code 81011 SUB INP/OBS CARE 2/35MIN Diagnoses Urinary retention R33.9 Recurrent UTI (urinary tract infection) N39.0
--- NOTE | 2023-10-23 13:50 | Hospitalist Progress Note ---
Date of Service October 23, 2023 Assessment & Plan (1) Sepsis: Plan: Sepsis Complicated UTI Bacteremia H/O Pseudomonas UTI--was treated with ciprofloxacin Chronic indwelling Osorio catheter S/P cystoscopy with extraction of left ureteral stone and insertion of left ureteral stent on 10/07/[address] Thorpe. Patient had stent removal on 10/15/2023. --CT ABD:Mild left hydroureteronephrosis with delayed enhancement of the left kidney. No obvious obstructing ureteral calculus identified on this exam the findings are suggestive of a recently passed ureteral calculus. -- Urine culture grew: E. coli --Blood culture growing gram-negative bacilli --BioFire suggestive of E. coli, Enterobacter Rales -- Currently on cefepime, fluconazole>> transition to ceftriaxone Appreciate ID input: Gina glabrata not likely pathogen per ID. Discontinue fluconazole as per ID Will adjust medications based on cultures Appreciate urology input: Currently no plan for urological intervention. Maintain Osorio catheter. Repeat blood cultures pending Clinically improving Suspected L2 superior endplate compression deformity Currently denies any back pain Will consider further imaging if patient clinically complains of back pain Monitor Will request to follow-up as outpatient Chronic anemia Hemoglobin at baseline Monitor CBC Chronic Atrial fibrillation H/O PE/DVT Continue metoprolol On Eliquis for anticoagulation DM II Last HbA1c 6.1 Continue insulin per protocol while hospitalized Monitor BGs Other chronic conditions: Hypertension--continue metoprolol hyperlipidemia--continue statin Valvular heart disease (mild AR/TR) Bronchial Asthma--no signs of exacerbation GERD--continue PPI, Carafate Endometrial cancer S/P Radiation, In remission per record Chronic lymphedema--monitor volume status Morbid obesity BMI 46 DVT Px: Eliquis CODE STATUS Full code Disposition PT OT prior to discharge Admission and Anticipated Discharge Date Admission Date: October 22, 2023 Subjective Patient is seen and examined at bedside States feeling better today Abdominal/flank pain improving Reports nausea but no vomiting Denies any chest pain, dyspnea, dizziness, vomiting Review of Systems Review of Systems: All systems reviewed & are unremarkable except as noted in Subjective Physical Exam Physical Exam: Physical Exam: Vitals signs as noted above General Appearance:Obese, no apparent distress Head: normocephalic, Atraumatic Eyes: normal inspection, EOMI Neck: supple, Trachea midline Respiratory/Chest: Decreased breath sounds, CTA, No accessory muscle use Cardiovascular: Irregularly irregular, No murmur Abdomen/GI:Soft, non tender, Bowel sounds present Extremities/Musculoskeletal:normal inspection, + B/L LE edema Neurologic/Psych:AAOX3, grossly no focal neurological deficits Skin: normal color, warm Results & Data Results & Data Vital Signs (Past 12 Hours) Vital Signs Temp Pulse Pulse Resp BP Pulse Ox O2 Del Method 10/23/23 12:12 37.3 C 76 20 109/55 L 99 Nasal Cannula 10/23/23 07:41 36.8 C 81 20 129/64 99 Nasal Cannula 10/23/23 03:42 37.3 C 70 16 119/74 94 Nasal Cannula 10/23/23 03:19 O2 Del Method O2 Flow Rate O2 Flow Rate 10/23/23 12:12 2 10/23/23 07:41 2 10/23/23 03:42 2 10/23/23 03:19 Nasal Cannula 2 Laboratory Results Short CBC 10/23/23 Range/Units 05:48 WBC 6.90 (4.8-10.8) K/ul Hgb 8.0 L (12.0-16.0) g/dl Hct 25.6 L (37.0-47.0) % Plt Count 228 (130-400) K/uL BMP 10/23/23 05:48 Sodium 139 Potassium 3.8 Chloride 106 Carbon Dioxide 28 BUN 7 Creatinine 0.45 L Glucose 90 Calcium 8.0 L
[2023-10-24 07:22] LABS: Hematocrit (blood only) 27.9 % (37.0-47.0); Hemoglobin 8.5 g/dl (12.0-16.0); Mean Corpuscular Hemoglobin 27.3 pg (25.0-34.0); Mean Corpuscular Hgb Conc 30.5 g/dL (32.0-36.0); Mean Corpuscular Volume 89.7 fL (80.0-100.0); Mean Platelet Volume 9.9 fL (9.4-12.4); Platelet Count 211 K/uL (130-400); RDW Coefficient of Variation 15.2 % (11.5-14.5); RDW Standard Deviation 49.7 fL (36.4-46.3); Red Blood Count 3.11 M/uL (4.20-5.40); White Blood Count 5.82 K/ul (4.8-10.8)
[2023-10-24 07:46] LABS: BUN Creatinine Ratio 19.5 (10-20); Calcium 8.2 mg/dl (8.6-10.3); Creatinine Clr Calc Pharmacy 142.4 ml/min; Est GFR (African American) 115.5 ml/min; Est GFR (Non-African American) 99.7 ml/min; Potassium 3.9 mmol/L (3.5-5.1)
[2023-10-24] MEDS: MICONAZOLE NITRATE POWDER 85 GM EXT PRN (09:28)
[2023-10-24] MEDS: SPIRONOLACTONE 25 MG TAB PO SCH (09:30)
[2023-10-24] MEDS ORDERED: ALUMINUM/MAGNESIUM/SIMETH (MAALOX MAX) 30 ML UDC PO PRN (10:35)
[2023-10-24] MEDS: POLYETHYLENE (MIRALAX) 17 GM PACK PO ONE (12:50)
--- NOTE | 2023-10-24 14:37 | Hospitalist Progress Note ---
Date of Service October 24, 2023 Assessment & Plan (1) Sepsis: Plan: Sepsis Complicated UTI E. coli bacteremia H/O Pseudomonas UTI--was treated with ciprofloxacin Chronic indwelling Osorio catheter S/P cystoscopy with extraction of left ureteral stone and insertion of left ureteral stent on 10/07/[address] Thorpe. Patient had stent removal on 10/15/2023. --CT ABD:Mild left hydroureteronephrosis with delayed enhancement of the left kidney. No obvious obstructing ureteral calculus identified on this exam the findings are suggestive of a recently passed ureteral calculus. -- Urine and blood cultures grew E. coli --BioFire suggestive of E. coli, Enterobacterales --Repeat blood cultures: No growth to date -- Currently on cefepime, fluconazole>> transition to ceftriaxone Appreciate ID input: Gina glabrata not likely pathogen per ID. Discontinue fluconazole as per ID Appreciate urology input: Currently no plan for urological intervention. Maintain Osorio catheter. PT OT recommends rehab Case management to help with discharge planning Constipation Started on bowel regimen Suspected L2 superior endplate compression deformity Currently denies any back pain Will consider further imaging if patient clinically complains of back pain Monitor Will request to follow-up as outpatient Chronic anemia Hemoglobin at baseline Monitor CBC Hb 8.5 today Chronic Atrial fibrillation H/O PE/DVT Continue metoprolol On Eliquis for anticoagulation DM II Last HbA1c 6.1 Continue insulin per protocol while hospitalized Monitor BGs Other chronic conditions: Hypertension--continue metoprolol hyperlipidemia--continue statin Valvular heart disease (mild AR/TR) Bronchial Asthma--no signs of exacerbation GERD--continue PPI, Carafate Endometrial cancer S/P Radiation, In remission per record Chronic lymphedema--monitor volume status Morbid obesity BMI 46 DVT Px: Eliquis CODE STATUS Full code Disposition Rehab as able Admission and Anticipated Discharge Date Admission Date: October 22, 2023 Subjective Patient is seen and examined at bedside Reports having heartburn this morning Also reports constipation Still has some abdominal discomfort Denies any chest pain, dyspnea, dizziness, vomiting Review of Systems Review of Systems: All systems reviewed & are unremarkable except as noted in Subjective Physical Exam Physical Exam: Physical Exam: Vitals signs as noted above General Appearance:Obese, no apparent distress Head: normocephalic, Atraumatic Eyes: normal inspection, EOMI Neck: supple, Trachea midline Respiratory/Chest: Decreased breath sounds, CTA, No accessory muscle use Cardiovascular: Irregularly irregular, No murmur Abdomen/GI:Soft, non tender, Bowel sounds present Extremities/Musculoskeletal:normal inspection, + B/L LE edema Neurologic/Psych:AAOX3, grossly no focal neurological deficits Skin: normal color, warm Results & Data Results & Data Vital Signs (Past 12 Hours) Vital Signs Temp Pulse Resp BP Pulse Ox Pulse Ox O2 Del Method 10/24/23 11:43 36.9 C 74 20 120/69 98 Nasal Cannula 10/24/23 07:39 36.7 C 76 18 123/58 L 98 Nasal Cannula 10/24/23 03:00 97 O2 Del Method O2 Flow Rate O2 Flow Rate 10/24/23 11:43 2 10/24/23 07:39 2 10/24/23 03:00 Nasal Cannula 2 Laboratory Results Short CBC 10/24/23 Range/Units 06:50 WBC 5.82 (4.8-10.8) K/ul Hgb 8.5 L (12.0-16.0) g/dl Hct 27.9 L (37.0-47.0) % Plt Count 211 (130-400) K/uL BMP 10/24/23 06:50 Sodium 141 Potassium 3.9 Chloride 107 Carbon Dioxide 32 BUN 8 Creatinine 0.41 L Glucose 97 Calcium 8.2 L
[2023-10-25] MEDS ORDERED: bisacodyL 10 MG SUPP PR PRN (12:37)
--- NOTE | 2023-10-25 16:01 | Hospitalist Progress Note ---
Date of Service October 25, 2023 Assessment & Plan (1) Sepsis: Plan: Sepsis Complicated UTI E. coli bacteremia H/O Pseudomonas UTI--was treated with ciprofloxacin Chronic indwelling Osorio catheter S/P cystoscopy with extraction of left ureteral stone and insertion of left ureteral stent on 10/07/[address] Thorpe. Patient had stent removal on 10/15/2023. --CT ABD:Mild left hydroureteronephrosis with delayed enhancement of the left kidney. No obvious obstructing ureteral calculus identified on this exam the findings are suggestive of a recently passed ureteral calculus. -- Urine and blood cultures grew E. coli --BioFire suggestive of E. coli, Enterobacterales --Repeat blood cultures: No growth to date -- Currently on cefepime, fluconazole>> transition to ceftriaxone Appreciate ID input: Gina glabrata not likely pathogen per ID. Discontinue fluconazole as per ID Appreciate urology input: Currently no plan for urological intervention. Maintain Osorio catheter. PT OT recommends rehab Case management to help with discharge planning Transition to p.o. antibiotics as able Constipation Started on bowel regimen Added Dulcolax as needed Suspected L2 superior endplate compression deformity Currently denies any back pain Will consider further imaging if patient clinically complains of back pain Monitor Follow-up as outpatient Chronic anemia Hemoglobin at baseline Monitor CBC Hb 8.5 Chronic Atrial fibrillation H/O PE/DVT Continue metoprolol On Eliquis for anticoagulation DM II Last HbA1c 6.1 Continue insulin per protocol while hospitalized Monitor BGs Other chronic conditions: Hypertension--continue metoprolol hyperlipidemia--continue statin Valvular heart disease (mild AR/TR) Bronchial Asthma--no signs of exacerbation GERD--continue PPI, Carafate Endometrial cancer S/P Radiation, In remission per record Chronic lymphedema--monitor volume status Morbid obesity BMI 46 DVT Px: Eliquis CODE STATUS Full code Disposition Rehab as able Admission and Anticipated Discharge Date Admission Date: October 22, 2023 Subjective Patient is seen and examined at bedside Abdominal pain improved Still has constipation States feeling tired No other complaints Heartburn resolved Denies any chest pain, dyspnea, dizziness, vomiting Review of Systems Review of Systems: All systems reviewed & are unremarkable except as noted in Subjective Physical Exam Physical Exam: Physical Exam: Vitals signs as noted above General Appearance:Obese, no apparent distress Head: normocephalic, Atraumatic Eyes: normal inspection, EOMI Neck: supple, Trachea midline Respiratory/Chest: Decreased breath sounds, CTA, No accessory muscle use Cardiovascular: Irregularly irregular, No murmur Abdomen/GI:Soft, non tender, Bowel sounds present Extremities/Musculoskeletal:normal inspection, + B/L LE edema Neurologic/Psych:AAOX3, grossly no focal neurological deficits Skin: normal color, warm Results & Data Results & Data Vital Signs (Past 12 Hours) Vital Signs Temp Pulse Resp BP Pulse Ox O2 Del Method O2 Flow Rate 10/25/23 15:52 37.3 C 72 16 103/46 L 97 Nasal Cannula 2 10/25/23 11:18 37.0 C 69 16 127/69 98 Nasal Cannula 2 10/25/23 07:38 37.3 C 66 16 113/62 98 Nasal Cannula 2 10/25/23 04:02 37.1 C 69 18 129/74 94 Nasal Cannula 2
[2023-10-26 07:00] LABS: Hematocrit (blood only) 29.3 % (37.0-47.0); Hemoglobin 8.9 g/dl (12.0-16.0); Mean Corpuscular Hemoglobin 27.2 pg (25.0-34.0); Mean Corpuscular Hgb Conc 30.4 g/dL (32.0-36.0); Mean Corpuscular Volume 89.6 fL (80.0-100.0); Platelet Count 240 K/uL (130-400); RDW Standard Deviation 49.1 fL (36.4-46.3); Red Blood Count 3.27 M/uL (4.20-5.40)
[2023-10-26 07:21] LABS: BUN Creatinine Ratio 17.6 (10-20); Calcium 8.5 mg/dl (8.6-10.3); Creatinine Clr Calc Pharmacy 113.1 ml/min; Est GFR (African American) 107.5 ml/min; Est GFR (Non-African American) 92.8 ml/min; Potassium 4.2 mmol/L (3.5-5.1)
--- NOTE | 2023-10-26 16:00 | Hospitalist Progress Note ---
Date of Service October 26, 2023 Assessment & Plan (1) Sepsis: Plan: Sepsis Complicated UTI E. coli bacteremia H/O Pseudomonas UTI--was treated with ciprofloxacin Chronic indwelling Osorio catheter S/P cystoscopy with extraction of left ureteral stone and insertion of left ureteral stent on 10/07/[address] Thorpe. Patient had stent removal on 10/15/2023. --CT ABD:Mild left hydroureteronephrosis with delayed enhancement of the left kidney. No obvious obstructing ureteral calculus identified on this exam the findings are suggestive of a recently passed ureteral calculus. -- Urine and blood cultures grew E. coli --BioFire suggestive of E. coli, Enterobacterales --Repeat blood cultures: No growth to date -- Currently on cefepime, fluconazole>> transition to ceftriaxone Appreciate ID input: Gina glabrata not likely pathogen per ID. Discontinue fluconazole as per ID Appreciate urology input: Currently no plan for urological intervention. Maintain Osorio catheter. PT OT recommends rehab Case management to help with discharge planning Stable for discharge. Plan to discharge when rehab arranged Constipation Had bowel movement Continue bowel regimen Suspected L2 superior endplate compression deformity Currently denies any back pain Will consider further imaging if patient clinically complains of back pain Monitor Follow-up as outpatient Chronic anemia Hemoglobin at baseline Monitor CBC Hb 8.9 today Chronic Atrial fibrillation H/O PE/DVT Continue metoprolol On Eliquis for anticoagulation DM II Last HbA1c 6.1 Continue insulin per protocol while hospitalized Monitor BGs Other chronic conditions: Hypertension--continue metoprolol hyperlipidemia--continue statin Valvular heart disease (mild AR/TR) Bronchial Asthma--no signs of exacerbation GERD--continue PPI, Carafate Endometrial cancer S/P Radiation, In remission per record Chronic lymphedema--monitor volume status Morbid obesity BMI 46 DVT Px: Eliquis CODE STATUS Full code Disposition Rehab when arranged Admission and Anticipated Discharge Date Admission Date: October 22, 2023 Subjective Patient is seen and examined at bedside Transient nausea earlier today but no vomiting Had bowel movement yesterday Abdominal pain much improved Offers no other complaints next Denies any chest pain, dyspnea, dizziness, vomiting Review of Systems Review of Systems: All systems reviewed & are unremarkable except as noted in Subjective Physical Exam Physical Exam: Physical Exam: Vitals signs as noted above General Appearance:Obese, no apparent distress Head: normocephalic, Atraumatic Eyes: normal inspection, EOMI Neck: supple, Trachea midline Respiratory/Chest: Decreased breath sounds, CTA, No accessory muscle use Cardiovascular: Irregularly irregular, No murmur Abdomen/GI:Soft, non tender, Bowel sounds present Extremities/Musculoskeletal:normal inspection, + B/L LE edema Neurologic/Psych:AAOX3, grossly no focal neurological deficits Skin: normal color, warm Results & Data Results & Data Vital Signs (Past 12 Hours) Vital Signs Temp Pulse Pulse Resp BP Pulse Ox O2 Del Method 10/26/23 13:59 74 10/26/23 12:44 Nasal Cannula 10/26/23 11:37 37.1 C 65 16 150/71 H 93 Room Air 10/26/23 07:52 36.6 C 71 16 112/53 L 93 Room Air 10/26/23 06:00 67 O2 Flow Rate 10/26/23 13:59 10/26/23 12:44 2 10/26/23 11:37 10/26/23 07:52 10/26/23 06:00 Laboratory Results Short CBC 10/26/23 Range/Units 06:32 WBC 5.40 (4.8-10.8) K/ul Hgb 8.9 L (12.0-16.0) g/dl Hct 29.3 L (37.0-47.0) % Plt Count 240 (130-400) K/uL BMP 10/26/23 06:32 Sodium 141 Potassium 4.2 Chloride 104 Carbon Dioxide 34 H BUN 9 Creatinine 0.51 L Glucose 126 H Calcium 8.5 L
[2023-10-27 06:32] LABS: Hematocrit (blood only) 31.6 % (37.0-47.0); Hemoglobin 9.3 g/dl (12.0-16.0); Mean Corpuscular Hemoglobin 26.9 pg (25.0-34.0); Mean Corpuscular Hgb Conc 29.4 g/dL (32.0-36.0); Mean Corpuscular Volume 91.3 fL (80.0-100.0); Mean Platelet Volume 9.9 fL (9.4-12.4); Platelet Count 263 K/uL (130-400); RDW Standard Deviation 50.4 fL (36.4-46.3); Red Blood Count 3.46 M/uL (4.20-5.40); White Blood Count 5.51 K/ul (4.8-10.8)
[2023-10-27 07:06] LABS: BUN Creatinine Ratio 19.5 (10-20); Calcium 8.9 mg/dl (8.6-10.3); Creatinine Clr Calc Pharmacy 140.6 ml/min; Est GFR (African American) 115.5 ml/min; Est GFR (Non-African American) 99.7 ml/min; Potassium 4.8 mmol/L (3.5-5.1)
--- NOTE | 2023-10-27 12:31 | Hospitalist Progress Note ---
Date of Service October 27, 2023 Assessment & Plan (1) Sepsis: Plan: Sepsis Secondary to complicated UTI and complicated by E. coli bacteremia and Chronic indwelling Osorio catheter H/O Pseudomonas UTI--was treated with ciprofloxacin S/P cystoscopy with extraction of left ureteral stone and insertion of left ureteral stent on 10/07/[address] Thorpe. Patient had stent removal on 10/15/2023. --CT ABD:Mild left hydroureteronephrosis with delayed enhancement of the left kidney. No obvious obstructing ureteral calculus identified on this exam the findings are suggestive of a recently passed ureteral calculus. -- Urine and blood cultures grew E. coli --BioFire suggestive of E. coli, Enterobacterales --Repeat blood cultures: No growth to date -- Was on cefepime, fluconazole and later on transitioned to ceftriaxone Appreciate ID input: Gina glabrata not likely pathogen per ID. Discontinue fluconazole as per ID Appreciate urology input: Currently no plan for urological intervention. Maintain Osorio catheter. PT OT recommends rehab Case management to help with discharge planning Stable for discharge. Plan to discharge when rehab arranged Constipation Had bowel movement Continue bowel regimen Denies any bowel problems today Suspected L2 superior endplate compression deformity Currently denies any back pain Will consider further imaging if patient clinically complains of back pain Monitor Follow-up as outpatient Chronic anemia Hemoglobin at baseline Monitor CBC-hemoglobin is stable and it is at 9.3 as of 10/27/2023 Chronic Atrial fibrillation H/O PE/DVT Continue metoprolol On Eliquis for anticoagulation DM II Last HbA1c 6.1 Continue insulin per protocol while hospitalized Monitor BGs Other chronic conditions: Hypertension--continue metoprolol hyperlipidemia--continue statin Valvular heart disease (mild AR/TR) Bronchial Asthma--no signs of exacerbation GERD--continue PPI, Carafate Endometrial cancer S/P Radiation, In remission per record Chronic lymphedema--monitor volume status Morbid obesity BMI 46 DVT Px: Eliquis CODE STATUS Full code Disposition Rehab when arranged Admission and Anticipated Discharge Date Admission Date: October 22, 2023 Subjective 10/27/2023 The patient was seen and examined in medical telemetry unit She has been feeling much better and awaiting placement Denies any significant symptoms Review of Systems Review of Systems: All systems reviewed and are unremarkable except as noted below Physical Exam Physical Exam: Lying in bed without any acute distress Constitutional: well developed, well nourished and + obese; not ill appearing Eyes: PERRL, conjunctivae normal, anicteric sclerae ENMT: external ear and nose normal, oropharynx normal Neck: trachea midline, no thyromegaly Respiratory: no respiratory distress Auscultation: + diminished lung sounds; no crackles and no wheezes Cardiovascular: Rate/Rhythm: regular rate and regular rhythm; not tachycardic Heart Sounds: normal S1, normal S2 and + murmur (2/6 ESM over precordium) Extremities: + edema (Trace edema bilaterally) Gastrointestinal (Abdomen): Inspection/Auscultation: normal bowel sounds; abdomen not distended Percussion/Palpation: abdomen soft; abdomen nontender Musculoskeletal: No acute arthritis involving any of the joint Neurologic: normal touch/pain/proprioception; + does not move all extremities and no focal motor deficits Psychiatric: A+Ox3, euthymic affect Lymphatic: no cervical or axillary lymphadenopathy Results & Data Results & Data Vital Signs (Past 12 Hours) Vital Signs Temp Pulse Pulse Pulse Resp BP Pulse Ox 10/27/23 12:07 36.8 C 76 16 90/66 L 99 10/27/23 11:00 10/27/23 07:54 36.6 C 70 16 114/60 98 10/27/23 07:25 59 L 10/27/23 03:01 36.5 C 67 16 103/65 96 O2 Del Method O2 Flow Rate 10/27/23 12:07 Room Air 2 10/27/23 11:00 Nasal Cannula 2 10/27/23 07:54 Nasal Cannula 2 10/27/23 07:25 10/27/23 03:01 Room Air Laboratory Results Short CBC 10/27/23 Range/Units 05:54 WBC 5.51 (4.8-10.8) K/ul Hgb 9.3 L (12.0-16.0) g/dl Hct 31.6 L (37.0-47.0) % Plt Count 263 (130-400) K/uL BMP 10/27/23 05:54 Sodium 143 Potassium 4.8 Chloride 105 Carbon Dioxide 35 H BUN 8 Creatinine 0.41 L Glucose 101 H Calcium 8.9 Medications Administered Current Inpatient Medications Acetaminophen (Acetaminophen 325 Mg Tab) 650 mg PO QID PRN PRN Reason: pain/fever Stop: 11/21/23 03:31 Al Hydrox/Mg Hydrox/Simethicone (Aluminum/Magnesium/Simeth (Maalox Max) 30 Ml Udc) 15 ml PO Q6H PRN PRN Reason: Heartburn Stop: 11/23/23 10:34 Apixaban (Apixaban 5 Mg Tablet) 5 mg PO [facility] ANA PAULA Stop: 11/21/23 08:59 Last Admin: 10/27/23 08:36 Dose: 5 mg Atorvastatin Calcium (Atorvastatin 40 Mg Tab) 80 mg PO HS ANA PAULA Stop: 11/21/23 20:59 Last Admin: 10/26/23 22:51 Dose: 80 mg Bisacodyl (Bisacodyl 10 Mg Supp) 10 mg TN DAILY PRN PRN Reason: Constipation Stop: 11/24/23 12:36 Dextrose (Dextrose 50% 50 Ml Syringe) 25 - 50 ml IV UD PRN; Protocol PRN Reason: Hypoglycemia Protocol Stop: 11/21/23 03:18 Docusate Sodium (Docusate Sodium 100 Mg Cap) 100 mg PO HS [facility] Stop: 11/21/23 20:59 Last Admin: 10/26/23 22:52 Dose: 100 mg Escitalopram Oxalate (Escitalopram Oxalate 10 Mg Tab) 10 mg PO QAM ANA PAULA Stop: 11/21/23 08:59 Last Admin: 10/27/23 08:36 Dose: 10 mg Famotidine (Famotidine 20 Mg Tab) 20 mg PO BID ANA PAULA Stop: 11/21/23 08:59 Last Admin: 10/27/23 08:36 Dose: 20 mg Glucagon (Glucagon For Inj 1 Mg Vial) 1 mg SQ UD PRN; Protocol PRN Reason: Hypoglycemia Protocol Stop: 11/21/23 03:18 Glucose (Glucose 10 Tab/Tube) 4 - 8 tab PO UD PRN; Protocol PRN Reason: Hypoglycemia Treatment Stop: 11/21/23 03:18 Glucose (Glucose 40% Gel 15 Gm Tube) 15 - 30 gm PO UD PRN; Protocol PRN Reason: Hypoglycemia Protocol Stop: 11/21/23 03:18 Promethazine HCl 12.5 mg/ (Sodium Chloride) 50.5 mls @ 202 mls/hr IV Q6H PRN PRN Reason: Nausea And Vomiting Stop: 11/21/23 03:31 Ceftriaxone Sodium 2,000 mg/ (Dextrose) 50 mls @ 100 mls/hr IV Q24H ANA PAULA Stop: 11/05/23 05:59 Last Infusion: 10/26/23 14:11 Dose: Infused Insulin Aspart (Insulin Aspart Per Unit Charge) 0 units SC [facility] Stop: 11/21/23 03:29 Last Admin: 10/27/23 12:16 Dose: Not Given Metoprolol Succinate (Metoprolol Succ 50mg Ext Rel Tab) 50 mg PO AMHS [facility] Stop: 11/21/23 08:59 Last Admin: 10/27/23 08:36 Dose: 50 mg Miconazole Nitrate (Miconazole Nitrate Powder 85 Gm) 1 appln EXT PRN PRN PRN Reason: Affected Skin Folds Stop: 11/21/23 15:18 Last Admin: 10/25/23 13:03 Dose: 1 appln Mirtazapine (Mirtazapine Tab 15 Mg Tab) 15 mg PO [facility] Stop: 11/21/23 20:59 Last Admin: 10/26/23 22:52 Dose: 15 mg Miscellaneous (Carbohydrates For Hypoglycemia ) 15 - 30 gm PO UD PRN PRN Reason: Hypoglycemia Protocol Stop: 11/21/23 03:18 Pantoprazole Sodium (Pantoprazole 40 Mg Tab) 40 mg PO BID [facility] Stop: 11/21/23 08:59 Last Admin: 10/27/23 08:36 Dose: 40 mg Phenazopyridine HCl (Phenazopyridine Hcl 200 Mg Tab) 200 mg PO Q8 PRN PRN Reason: .BLADDER SPASMS Stop: 11/21/23 03:18 Polyethylene Glycol (Polyethylene (Miralax) 17 Gm Pack) 17 gm PO DAILY PRN PRN Reason: Constipation Stop: 11/23/23 10:33 Sennosides (Senna 8.6 Mg Tab) 8.6 mg PO HS [facility] Stop: 11/21/23 20:59 Last Admin: 10/26/23 22:52 Dose: 8.6 mg Spironolactone (Spironolactone 25 Mg Tab) 25 mg PO QAM [facility] Stop: 11/23/23 08:59 Last Admin: 10/27/23 08:36 Dose: 25 mg Sucralfate (Sucralfate 1 Gm Tab) 1 gm PO ACHS [facility] Stop: 11/21/23 07:29 Last Admin: 10/27/23 12:16 Dose: 1 gm Tramadol HCl (Tramadol Hcl 50 Mg Tablet) 25 - 50 mg PO Q4H PRN PRN Reason: Pain Stop: 11/21/23 05:22 Last Admin: 10/23/23 23:02 Dose: 50 mg
[2023-10-28] MEDS ORDERED: ALUMINUM/MAGNESIUM SUSP 30 ML UDC PO PRN (13:14)
--- NOTE | 2023-10-28 13:14 | Hospitalist Progress Note ---
Date of Service October 28, 2023 Assessment & Plan (1) Sepsis: Plan: Sepsis Secondary to complicated UTI and complicated by E. coli bacteremia and Chronic indwelling Osorio catheter H/O Pseudomonas UTI--was treated with ciprofloxacin S/P cystoscopy with extraction of left ureteral stone and insertion of left ureteral stent on 10/07/[address] Thorpe. Patient had stent removal on 10/15/2023. --CT ABD:Mild left hydroureteronephrosis with delayed enhancement of the left kidney. No obvious obstructing ureteral calculus identified on this exam the findings are suggestive of a recently passed ureteral calculus. -- Urine and blood cultures grew E. coli --BioFire suggestive of E. coli, Enterobacterales --Repeat blood cultures: No growth to date -- Was on cefepime, fluconazole and later on transitioned to ceftriaxone Appreciate ID input: Gina glabrata not likely pathogen per ID. Discontinue fluconazole as per ID Appreciate urology input: Currently no plan for urological intervention. Maintain Osorio catheter. PT OT recommends rehab Case management to help with discharge planning Remains medically stable without any signs and or symptoms of infection Awaiting placement GERD--continue PPI, Carafate Has been on famotidine, Protonix and Carafate Still complains nausea and dyspepsia Will try Maalox/Mylanta as needed Constipation Had bowel movement Continue bowel regimen Denies any bowel problems today Complains to have nausea without any vomiting Suspected L2 superior endplate compression deformity Currently denies any back pain Will consider further imaging if patient clinically complains of back pain Monitor Follow-up as outpatient Chronic anemia Hemoglobin at baseline Monitor CBC-hemoglobin is stable and it is at 9.3 as of 10/27/2023 Chronic Atrial fibrillation H/O PE/DVT Continue metoprolol On Eliquis for anticoagulation DM II Last HbA1c 6.1 Continue insulin per protocol while hospitalized Monitor BGs Other chronic conditions: Hypertension--continue metoprolol hyperlipidemia--continue statin Valvular heart disease (mild AR/TR) Bronchial Asthma--no signs of exacerbation Endometrial cancer S/P Radiation, In remission per record Chronic lymphedema--monitor volume status Morbid obesity BMI 46 DVT Px: Eliquis CODE STATUS Full code Disposition Rehab when arranged Admission and Anticipated Discharge Date Admission Date: October 22, 2023 Subjective 10/27/2023 The patient was seen and examined in medical telemetry unit She has been feeling much better and awaiting placement Denies any significant symptoms 10/28/2023 The patient was seen and examined in medical telemetry unit She has been complaining of some nausea but no vomiting Denies any other symptoms, no fever no chills, and no problem with urine or bowel habit Review of Systems Review of Systems: All systems reviewed and are unremarkable except as noted below Physical Exam Physical Exam: Lying in bed without any acute distress Constitutional: well developed, well nourished and + obese; not ill appearing Eyes: PERRL, conjunctivae normal, anicteric sclerae ENMT: external ear and nose normal, oropharynx normal Neck: trachea midline, no thyromegaly Respiratory: no respiratory distress Auscultation: + diminished lung sounds; no crackles and no wheezes Cardiovascular: Rate/Rhythm: regular rate and regular rhythm; not tachycardic Heart Sounds: normal S1, normal S2 and + murmur (2/6 ESM over precordium) Extremities: + edema (Trace edema bilaterally) Gastrointestinal (Abdomen): Inspection/Auscultation: normal bowel sounds; abdomen not distended Percussion/Palpation: abdomen soft; abdomen nontender Musculoskeletal: No acute arthritis involving any of the joint Neurologic: normal touch/pain/proprioception; + does not move all extremities and no focal motor deficits Psychiatric: A+Ox3, euthymic affect Lymphatic: no cervical or axillary lymphadenopathy Results & Data Results & Data Vital Signs (Past 12 Hours) Vital Signs Temp Pulse Pulse Resp BP Pulse Ox O2 Del Method 10/28/23 11:41 36.8 C 65 18 121/62 99 Nasal Cannula 10/28/23 10:41 Nasal Cannula 10/28/23 08:00 36.8 C 85 18 138/76 96 Nasal Cannula 10/28/23 07:25 65 10/28/23 04:50 36.7 C 68 18 97/62 L 97 Nasal Cannula O2 Flow Rate 10/28/23 11:41 2 10/28/23 10:41 2 10/28/23 08:00 2 10/28/23 07:25 10/28/23 04:50 2 Medications Administered Current Inpatient Medications Acetaminophen (Acetaminophen 325 Mg Tab) 650 mg PO QID PRN PRN Reason: pain/fever Stop: 11/21/23 03:31 Al Hydrox/Mg Hydrox/Simethicone (Aluminum/Magnesium/Simeth (Maalox Max) 30 Ml Udc) 15 ml PO Q6H PRN PRN Reason: Heartburn Stop: 11/23/23 10:34 Apixaban (Apixaban 5 Mg Tablet) 5 mg PO [facility] Stop: 11/21/23 08:59 Last Admin: 10/28/23 08:24 Dose: 5 mg Atorvastatin Calcium (Atorvastatin 40 Mg Tab) 80 mg PO HS [facility] Stop: 11/21/23 20:59 Last Admin: 10/27/23 22:03 Dose: 80 mg Bisacodyl (Bisacodyl 10 Mg Supp) 10 mg [place] DAILY PRN PRN Reason: Constipation Stop: 11/24/23 12:36 Dextrose (Dextrose 50% 50 Ml Syringe) 25 - 50 ml IV UD PRN; Protocol PRN Reason: Hypoglycemia Protocol Stop: 11/21/23 03:18 Docusate Sodium (Docusate Sodium 100 Mg Cap) 100 mg PO HS [facility] Stop: 11/21/23 20:59 Last Admin: 10/27/23 22:08 Dose: 100 mg Escitalopram Oxalate (Escitalopram Oxalate 10 Mg Tab) 10 mg PO QAM [facility] Stop: 11/21/23 08:59 Last Admin: 10/28/23 08:20 Dose: 10 mg Famotidine (Famotidine 20 Mg Tab) 20 mg PO BID [facility] Stop: 11/21/23 08:59 Last Admin: 10/28/23 08:20 Dose: 20 mg Glucagon (Glucagon For Inj 1 Mg Vial) 1 mg SQ UD PRN; Protocol PRN Reason: Hypoglycemia Protocol Stop: 11/21/23 03:18 Glucose (Glucose 10 Tab/Tube) 4 - 8 tab PO UD PRN; Protocol PRN Reason: Hypoglycemia Treatment Stop: 11/21/23 03:18 Glucose (Glucose 40% Gel 15 Gm Tube) 15 - 30 gm PO UD PRN; Protocol PRN Reason: Hypoglycemia Protocol Stop: 11/21/23 03:18 Promethazine HCl 12.5 mg/ (Sodium Chloride) 50.5 mls @ 202 mls/hr IV Q6H PRN PRN Reason: Nausea And Vomiting Stop: 11/21/23 03:31 Ceftriaxone Sodium 2,000 mg/ (Dextrose) 50 mls @ 100 mls/hr IV Q24H [facility] Stop: 11/05/23 05:59 Last Infusion: 10/27/23 13:56 Dose: Infused Insulin Aspart (Insulin Aspart Per Unit Charge) 0 units SC ACHS [facility] Stop: 11/21/23 03:29 Last Admin: 10/28/23 12:34 Dose: Not Given Metoprolol Succinate (Metoprolol Succ 50mg Ext Rel Tab) 50 mg PO AMHS [facility] Stop: 11/21/23 08:59 Last Admin: 10/28/23 08:23 Dose: 50 mg Miconazole Nitrate (Miconazole Nitrate Powder 85 Gm) 1 appln EXT PRN PRN PRN Reason: Affected Skin Folds Stop: 11/21/23 15:18 Last Admin: 10/25/23 13:03 Dose: 1 appln Mirtazapine (Mirtazapine Tab 15 Mg Tab) 15 mg PO HS [facility] Stop: 11/21/23 20:59 Last Admin: 10/27/23 22:04 Dose: 15 mg Miscellaneous (Carbohydrates For Hypoglycemia ) 15 - 30 gm PO UD PRN PRN Reason: Hypoglycemia Protocol Stop: 11/21/23 03:18 Pantoprazole Sodium (Pantoprazole 40 Mg Tab) 40 mg PO BID [facility] Stop: 11/21/23 08:59 Last Admin: 10/28/23 08:20 Dose: 40 mg Phenazopyridine HCl (Phenazopyridine Hcl 200 Mg Tab) 200 mg PO Q8 PRN PRN Reason: .BLADDER SPASMS Stop: 11/21/23 03:18 Polyethylene Glycol (Polyethylene (Miralax) 17 Gm Pack) 17 gm PO DAILY PRN PRN Reason: Constipation Stop: 11/23/23 10:33 Sennosides (Senna 8.6 Mg Tab) 8.6 mg PO HS [facility] Stop: 11/21/23 20:59 Last Admin: 10/27/23 22:04 Dose: 8.6 mg Spironolactone (Spironolactone 25 Mg Tab) 25 mg PO QAM [facility] Stop: 11/23/23 08:59 Last Admin: 10/28/23 08:24 Dose: 25 mg Sucralfate (Sucralfate 1 Gm Tab) 1 gm PO ACHS [facility] Stop: 11/21/23 07:29 Last Admin: 10/28/23 12:34 Dose: 1 gm Tramadol HCl (Tramadol Hcl 50 Mg Tablet) 25 - 50 mg PO Q4H PRN PRN Reason: Pain Stop: 11/21/23 05:22 Last Admin: 10/23/23 23:02 Dose: 50 mg
--- NOTE | 2023-10-29 14:00 | Hospitalist Progress Note ---
Date of Service October 29, 2023 Assessment & Plan (1) Sepsis: Plan: Sepsis Secondary to complicated UTI and complicated by E. coli bacteremia and Chronic indwelling Osorio catheter H/O Pseudomonas UTI--was treated with ciprofloxacin S/P cystoscopy with extraction of left ureteral stone and insertion of left ureteral stent on 10/07/[address] Thorpe. Patient had stent removal on 10/15/2023. --CT ABD:Mild left hydroureteronephrosis with delayed enhancement of the left kidney. No obvious obstructing ureteral calculus identified on this exam the findings are suggestive of a recently passed ureteral calculus. -- Urine and blood cultures grew E. coli --BioFire suggestive of E. coli, Enterobacterales --Repeat blood cultures: No growth to date -- Was on cefepime, fluconazole and later on transitioned to ceftriaxone Appreciate ID input: Gina glabrata not likely pathogen per ID. Discontinue fluconazole as per ID Appreciate urology input: Currently no plan for urological intervention. Maintain Osorio catheter. PT OT recommends rehab Case management to help with discharge planning Remains medically stable without any signs and or symptoms of infection No acute distress and/or symptoms Awaiting placement GERD--continue PPI, Carafate Has been on famotidine, Protonix and Carafate Still complains nausea and dyspepsia Will try Maalox/Mylanta as needed Still has some nausea but has not tried Maalox/Mylanta that was ordered Constipation Had bowel movement Continue bowel regimen Denies any bowel problems today Suspected L2 superior endplate compression deformity Currently denies any back pain Will consider further imaging if patient clinically complains of back pain Monitor Follow-up as outpatient Chronic anemia Hemoglobin at baseline Monitor CBC-hemoglobin is stable and it is at 9.3 as of 10/27/2023 Will check CBC tomorrow Chronic Atrial fibrillation H/O PE/DVT Continue metoprolol On Eliquis for anticoagulation DM II Last HbA1c 6.1 Continue insulin per protocol while hospitalized Monitor BGs Other chronic conditions: Hypertension--continue metoprolol hyperlipidemia--continue statin Valvular heart disease (mild AR/TR) Bronchial Asthma--no signs of exacerbation Endometrial cancer S/P Radiation, In remission per record Chronic lymphedema--monitor volume status Morbid obesity BMI 46 DVT Px: Eliquis CODE STATUS Full code Disposition Rehab when arranged Admission and Anticipated Discharge Date Admission Date: October 22, 2023 Subjective 10/27/2023 The patient was seen and examined in medical telemetry unit She has been feeling much better and awaiting placement Denies any significant symptoms 10/28/2023 The patient was seen and examined in medical telemetry unit She has been complaining of some nausea but no vomiting Denies any other symptoms, no fever no chills, and no problem with urine or bowel habit 10/29/2023 The patient was seen and examined in medical telemetry unit She has been stable Abdominal discomfort and nausea seems to be improving Denies any fever and or chills Has been getting physical therapy and awaiting placement Review of Systems Review of Systems: All systems reviewed and are unremarkable except as noted below Physical Exam Physical Exam: Lying in bed without any acute distress Constitutional: well developed, well nourished and + obese; not ill appearing Eyes: PERRL, conjunctivae normal, anicteric sclerae ENMT: external ear and nose normal, oropharynx normal Neck: trachea midline, no thyromegaly Respiratory: no respiratory distress Auscultation: + diminished lung sounds; no crackles and no wheezes Cardiovascular: Rate/Rhythm: regular rate and regular rhythm; not tachycardic Heart Sounds: normal S1, normal S2 and + murmur (2/6 ESM over precordium) Extremities: + edema (Trace edema bilaterally) Gastrointestinal (Abdomen): Inspection/Auscultation: normal bowel sounds; abdomen not distended Percussion/Palpation: abdomen soft; abdomen nontender Neurologic: normal touch/pain/proprioception; + does not move all extremities and no focal motor deficits Psychiatric: A+Ox3, euthymic affect Lymphatic: no cervical or axillary lymphadenopathy Results & Data Results & Data Vital Signs (Past 12 Hours) Vital Signs Temp Pulse Pulse Resp BP BP Pulse Ox 10/29/23 11:44 36.7 C 65 20 109/61 99 10/29/23 10:40 10/29/23 08:31 36.6 C 62 20 120/66 93 10/29/23 07:09 66 10/29/23 03:13 36.5 C 79 18 114/71 96 O2 Del Method O2 Flow Rate 10/29/23 11:44 Nasal Cannula 2 10/29/23 10:40 Nasal Cannula 2 10/29/23 08:31 Nasal Cannula 2 10/29/23 07:09 10/29/23 03:13 Nasal Cannula 2 Medications Administered Current Inpatient Medications Acetaminophen (Acetaminophen 325 Mg Tab) 650 mg PO QID PRN PRN Reason: pain/fever Stop: 11/21/23 03:31 Al Hydrox/Mg Hydrox/Simethicone (Aluminum/Magnesium Susp 30 Ml Udc) 30 ml PO Q6H PRN PRN Reason: Dyspepsia Stop: 11/27/23 13:13 Apixaban (Apixaban 5 Mg Tablet) 5 mg PO AMHS [facility] Stop: 11/21/23 08:59 Last Admin: 10/29/23 07:52 Dose: 5 mg Atorvastatin Calcium (Atorvastatin 40 Mg Tab) 80 mg PO HS [facility] Stop: 11/21/23 20:59 Last Admin: 10/28/23 21:27 Dose: 80 mg Bisacodyl (Bisacodyl 10 Mg Supp) 10 mg [place] DAILY PRN PRN Reason: Constipation Stop: 11/24/23 12:36 Dextrose (Dextrose 50% 50 Ml Syringe) 25 - 50 ml IV UD PRN; Protocol PRN Reason: Hypoglycemia Protocol Stop: 11/21/23 03:18 Docusate Sodium (Docusate Sodium 100 Mg Cap) 100 mg PO HS [facility] Stop: 11/21/23 20:59 Last Admin: 10/28/23 21:27 Dose: 100 mg Escitalopram Oxalate (Escitalopram Oxalate 10 Mg Tab) 10 mg PO QAM [facility] Stop: 11/21/23 08:59 Last Admin: 10/29/23 07:50 Dose: 10 mg Famotidine (Famotidine 20 Mg Tab) 20 mg PO BID [facility] Stop: 11/21/23 08:59 Last Admin: 10/29/23 07:50 Dose: 20 mg Glucagon (Glucagon For Inj 1 Mg Vial) 1 mg SQ UD PRN; Protocol PRN Reason: Hypoglycemia Protocol Stop: 11/21/23 03:18 Glucose (Glucose 10 Tab/Tube) 4 - 8 tab PO UD PRN; Protocol PRN Reason: Hypoglycemia Treatment Stop: 11/21/23 03:18 Glucose (Glucose 40% Gel 15 Gm Tube) 15 - 30 gm PO UD PRN; Protocol PRN Reason: Hypoglycemia Protocol Stop: 11/21/23 03:18 Promethazine HCl 12.5 mg/ (Sodium Chloride) 50.5 mls @ 202 mls/hr IV Q6H PRN PRN Reason: Nausea And Vomiting Stop: 11/21/23 03:31 Ceftriaxone Sodium 2,000 mg/ (Dextrose) 50 mls @ 100 mls/hr IV Q24H [facility] Stop: 11/05/23 05:59 Last Infusion: 10/29/23 13:23 Dose: Infused Insulin Aspart (Insulin Aspart Per Unit Charge) 0 units SC [facility] Stop: 11/21/23 03:29 Last Admin: 10/29/23 12:21 Dose: Not Given Metoprolol Succinate (Metoprolol Succ 50mg Ext Rel Tab) 50 mg PO AMHS [facility] Stop: 11/21/23 08:59 Last Admin: 10/29/23 09:59 Dose: 50 mg Miconazole Nitrate (Miconazole Nitrate Powder 85 Gm) 1 appln EXT PRN PRN PRN Reason: Affected Skin Folds Stop: 11/21/23 15:18 Last Admin: 10/25/23 13:03 Dose: 1 appln Mirtazapine (Mirtazapine Tab 15 Mg Tab) 15 mg PO HS [facility] Stop: 11/21/23 20:59 Last Admin: 10/28/23 21:27 Dose: 15 mg Miscellaneous (Carbohydrates For Hypoglycemia ) 15 - 30 gm PO UD PRN PRN Reason: Hypoglycemia Protocol Stop: 11/21/23 03:18 Pantoprazole Sodium (Pantoprazole 40 Mg Tab) 40 mg PO BID [facility] Stop: 11/21/23 08:59 Last Admin: 10/29/23 07:50 Dose: 40 mg Phenazopyridine HCl (Phenazopyridine Hcl 200 Mg Tab) 200 mg PO Q8 PRN PRN Reason: .BLADDER SPASMS Stop: 11/21/23 03:18 Polyethylene Glycol (Polyethylene (Miralax) 17 Gm Pack) 17 gm PO DAILY PRN PRN Reason: Constipation Stop: 11/23/23 10:33 Sennosides (Senna 8.6 Mg Tab) 8.6 mg PO HS [facility] Stop: 11/21/23 20:59 Last Admin: 10/28/23 21:27 Dose: 8.6 mg Spironolactone (Spironolactone 25 Mg Tab) 25 mg PO QAM [facility] Stop: 11/23/23 08:59 Last Admin: 10/29/23 07:52 Dose: 25 mg Sucralfate (Sucralfate 1 Gm Tab) 1 gm PO [facility] Stop: 11/21/23 07:29 Last Admin: 10/29/23 12:21 Dose: 1 gm Tramadol HCl (Tramadol Hcl 50 Mg Tablet) 25 - 50 mg PO Q4H PRN PRN Reason: Pain Stop: 11/21/23 05:22 Last Admin: 10/23/23 23:02 Dose: 50 mg
[2023-10-30 09:11] LABS: Basophils # (auto) 0.03 K/uL (0.00-0.20); Basophils % (auto) 0.5 %; Eosinophils # (auto) 0.24 K/uL (0.00-0.50); Eosinophils % (auto) 3.6 %; Hematocrit (blood only) 31.9 % (37.0-47.0); Hemoglobin 9.7 g/dl (12.0-16.0); Immature Granulocytes # (auto) 0.06 K/uL (0.01-0.20); Immature Granulocytes % (auto) 0.9 %; Lymphocytes # (auto) 2.61 K/uL (1.20-3.40); Lymphocytes % (auto) 39.2 %; Mean Corpuscular Hemoglobin 27.4 pg (25.0-34.0); Mean Corpuscular Hgb Conc 30.4 g/dL (32.0-36.0); Mean Corpuscular Volume 90.1 fL (80.0-100.0); Monocytes # (auto) 0.48 K/uL (0.11-0.59); Monocytes % (auto) 7.2 %; Neutrophils # (auto) 3.24 K/uL (1.40-6.50); Neutrophils % (auto) 48.6 %; Platelet Count 295 K/uL (130-400); RDW Coefficient of Variation 14.9 % (11.5-14.5); RDW Standard Deviation 49.7 fL (36.4-46.3); Red Blood Count 3.54 M/uL (4.20-5.40); White Blood Count 6.66 K/ul (4.8-10.8)
[2023-10-30 09:22] LABS: BUN Creatinine Ratio 25.9 (10-20); Creatinine Clr Calc Pharmacy 103.7 ml/min; Est GFR (African American) 105.5 ml/min; Phosphorus 4.2 mg/dl (2.5-4.9); Potassium 4.3 mmol/L (3.5-5.1)
[2023-10-30] MEDS ORDERED: SODIUM CHLORIDE 0.65% NA SOLN 45 ML (OCEAN) PRN (12:51)
--- NOTE | 2023-10-30 14:13 | Hospitalist Progress Note ---
Date of Service October 30, 2023 Assessment & Plan (1) Sepsis: Plan: Sepsis Secondary to complicated UTI and complicated by E. coli bacteremia and Chronic indwelling Osorio catheter H/O Pseudomonas UTI--was treated with ciprofloxacin S/P cystoscopy with extraction of left ureteral stone and insertion of left ureteral stent on 10/07/[address] Thorpe. Patient had stent removal on 10/15/2023. --CT ABD:Mild left hydroureteronephrosis with delayed enhancement of the left kidney. No obvious obstructing ureteral calculus identified on this exam the findings are suggestive of a recently passed ureteral calculus. -- Urine and blood cultures grew E. coli --Repeat blood cultures: No growth to date -- Was on cefepime, fluconazole and transitioned to ceftriaxone Appreciate ID input: Gina glabrata not likely pathogen per ID. Discontinue fluconazole as per ID Appreciate urology input: Currently no plan for urological intervention. Maintain Osorio catheter. PT OT recommends rehab Case management to help with discharge planning Remains medically stable without any signs and or symptoms of infection No acute distress and/or symptoms Awaiting placement GERD--continue PPI, Carafate Has been on famotidine, Protonix and Carafate complained of nausea and dyspepsia before try Maalox/Mylanta as needed No complaints of nausea today Constipation Had bowel movement Continue bowel regimen Denies any bowel problems today Suspected L2 superior endplate compression deformity Currently denies any back pain Will consider further imaging if patient clinically complains of back pain Monitor Follow-up as outpatient Chronic anemia Hemoglobin at baseline Monitor CBC -hemoglobin is stable and it is at 9.7 as of 10/30/2023 Will check CBC tomorrow Chronic Atrial fibrillation H/O PE/DVT Continue metoprolol On Eliquis for anticoagulation DM II Last HbA1c 6.1 Continue insulin per protocol while hospitalized Monitor BGs Other chronic conditions: Hypertension--continue metoprolol hyperlipidemia--continue statin Valvular heart disease (mild AR/TR) Bronchial Asthma--no signs of exacerbation Endometrial cancer S/P Radiation, In remission per record Chronic lymphedema--monitor volume status Morbid obesity BMI 46 lifestyle modification recommended DVT Px: Eliquis CODE STATUS Full code Disposition Rehab when arranged Admission and Anticipated Discharge Date Admission Date: October 22, 2023 Subjective Pt seen in follow up of UTI, bacteremia Laying in bed in NAD Overall feeling better however not able to move much, requires a lot of help to move No fever chills chest pain shortness of breath Has been getting physical therapy and awaiting placement Review of Systems Review of Systems: All systems reviewed & are unremarkable except as noted in Subjective Physical Exam Physical Exam: Physical Exam: Lying in bed with out in acute distr ess Constitutional: + morbidly obese F in NAD Eyes: PERRL, conjunctiva e normal, anicteri c sclerae ENMT: external ear and n ose normal, oropha rynx normal Neck: supple Respiratory: no respiratory dis tress Auscultatio n: + diminished max ng sounds; no crac kles and no wheeze s Cardiovascular: irregular, not ta chycardic Extremi ties: + edema (Tra ce edema bilateral ly) Gastrointestinal ( Abdomen): Inspection/Auscult ation: normal davon l sounds; abdomen not distended Per cussion/Palpation: abdomen soft; abd omen nontender Neurologic: generally weak Psychiatric: A+Ox3, euthymic af fect Lymphatic: no cervical or axi llary lymphadenopa thy Results & Data Results & Data Vital Signs (Past 12 Hours) Vital Signs Temp Pulse Pulse Pulse Resp BP BP 10/30/23 10:52 36.5 C 68 18 104/66 10/30/23 10:37 10/30/23 07:45 60 10/30/23 07:28 36.5 C 69 18 135/61 10/30/23 02:48 36.9 C 68 72 18 113/63 Pulse Ox O2 Del Method O2 Flow Rate 10/30/23 10:52 97 Nasal Cannula 2 10/30/23 10:37 Nasal Cannula 2 10/30/23 07:45 10/30/23 07:28 97 Nasal Cannula 2 10/30/23 02:48 94 Nasal Cannula 2 Laboratory Results 10/30/23 10/30/23 10/30/23 Range/Units 12:09 08:42 08:20 WBC 6.66 (4.8-10.8) K/ul RBC 3.54 L (4.20-5.40) M/uL Hgb 9.7 L (12.0-16.0) g/dl Hct 31.9 L (37.0-47.0) % MCV 90.1 (80.0-100.0) fL MCH 27.4 (25.0-34.0) pg MCHC 30.4 L (32.0-36.0) g/dL RDW Std Deviation 49.7 H (36.4-46.3) fL RDW Coeff of Rodolfo 14.9 H (11.5-14.5) % Plt Count 295 (130-400) K/uL MPV 10.0 (9.4-12.4) fL Immature Gran % (Auto) 0.9 % Neut % (Auto) 48.6 % Lymph % (Auto) 39.2 % [place] % (Auto) 7.2 % Eos % (Auto) 3.6 % Baso % (Auto) 0.5 % Neut # (Auto) 3.24 (1.40-6.50) K/uL Lymph # (Auto) 2.61 (1.20-3.40) K/uL [place] # (Auto) 0.48 (0.11-0.59) K/uL Eos # (Auto) 0.24 (0.00-0.50) K/uL Baso # (Auto) 0.03 (0.00-0.20) K/uL Immature Gran # (Auto) 0.06 (0.01-0.20) K/uL Sodium 139 (136-145) mmol/L Potassium 4.3 (3.5-5.1) mmol/L Chloride 102 (98-107) mmol/L Carbon Dioxide 34 H (21-32) mmol/L Anion Gap 3 (3-11) BUN 14 (6-23) mg/dl Creatinine 0.54 L (0.6-1.2) mg/dl Est Cr Clr Drug Dosing 103.7 ml/min Est GFR ( Amer) 105.5 ml/min Est GFR (Non-Af Amer) 91.0 ml/min BUN/Creatinine Ratio 25.9 H (10-20) Glucose 109 H (70-99(Fasting)) mg/dl POC Glucose 125 H 119 H (70-99) mg/dl Calcium 9.0 (8.6-10.3) mg/dl Phosphorus 4.2 (2.5-4.9) mg/dl Magnesium 2.0 (1.7-2.4) mg/dl 10/29/23 10/29/23 Range/Units 20:00 17:06 WBC (4.8-10.8) K/ul RBC (4.20-5.40) M/uL Hgb (12.0-16.0) g/dl Hct (37.0-47.0) % MCV (80.0-100.0) fL MCH (25.0-34.0) pg MCHC (32.0-36.0) g/dL RDW Std Deviation (36.4-46.3) fL RDW Coeff of Rodolfo (11.5-14.5) % Plt Count (130-400) K/uL MPV (9.4-12.4) fL Immature Gran % (Auto) % Neut % (Auto) % Lymph % (Auto) % Frederick % (Auto) % Eos % (Auto) % Baso % (Auto) % Neut # (Auto) (1.40-6.50) K/uL Lymph # (Auto) (1.20-3.40) K/uL Frederick # (Auto) (0.11-0.59) K/uL Eos # (Auto) (0.00-0.50) K/uL Baso # (Auto) (0.00-0.20) K/uL Immature Gran # (Auto) (0.01-0.20) K/uL Sodium (136-145) mmol/L Potassium (3.5-5.1) mmol/L Chloride (98-107) mmol/L Carbon Dioxide (21-32) mmol/L Anion Gap (3-11) BUN (6-23) mg/dl Creatinine (0.6-1.2) mg/dl Est Cr Clr Drug Dosing ml/min Est GFR ( Amer) ml/min Est GFR (Non-Af Amer) ml/min BUN/Creatinine Ratio (10-20) Glucose (70-99(Fasting)) mg/dl POC Glucose 121 H 119 H (70-99) mg/dl Calcium (8.6-10.3) mg/dl Phosphorus (2.5-4.9) mg/dl Magnesium (1.7-2.4) mg/dl Medications Administered Current Inpatient Medications Acetaminophen (Acetaminophen 325 Mg Tab) 650 mg PO QID PRN PRN Reason: pain/fever Stop: 11/21/23 03:31 Al Hydrox/Mg Hydrox/Simethicone (Aluminum/Magnesium Susp 30 Ml Udc) 30 ml PO Q6H PRN PRN Reason: Dyspepsia Stop: 11/27/23 13:13 Apixaban (Apixaban 5 Mg Tablet) 5 mg PO [facility]HS [facility] Stop: 11/21/23 08:59 Last Admin: 10/30/23 07:59 Dose: 5 mg Atorvastatin Calcium (Atorvastatin 40 Mg Tab) 80 mg PO HS [facility] Stop: 11/21/23 20:59 Last Admin: 10/29/23 20:38 Dose: 80 mg Bisacodyl (Bisacodyl 10 Mg Supp) 10 mg [place] DAILY PRN PRN Reason: Constipation Stop: 11/24/23 12:36 Dextrose (Dextrose 50% 50 Ml Syringe) 25 - 50 ml IV UD PRN; Protocol PRN Reason: Hypoglycemia Protocol Stop: 11/21/23 03:18 Docusate Sodium (Docusate Sodium 100 Mg Cap) 100 mg PO HS [facility] Stop: 11/21/23 20:59 Last Admin: 10/29/23 20:38 Dose: 100 mg Escitalopram Oxalate (Escitalopram Oxalate 10 Mg Tab) 10 mg PO QAM [facility] Stop: 11/21/23 08:59 Last Admin: 10/30/23 08:00 Dose: 10 mg Famotidine (Famotidine 20 Mg Tab) 20 mg PO BID [facility] Stop: 11/21/23 08:59 Last Admin: 10/30/23 07:58 Dose: 20 mg Glucagon (Glucagon For Inj 1 Mg Vial) 1 mg SQ UD PRN; Protocol PRN Reason: Hypoglycemia Protocol Stop: 11/21/23 03:18 Glucose (Glucose 10 Tab/Tube) 4 - 8 tab PO UD PRN; Protocol PRN Reason: Hypoglycemia Treatment Stop: 11/21/23 03:18 Glucose (Glucose 40% Gel 15 Gm Tube) 15 - 30 gm PO UD PRN; Protocol PRN Reason: Hypoglycemia Protocol Stop: 11/21/23 03:18 Promethazine HCl 12.5 mg/ (Sodium Chloride) 50.5 mls @ 202 mls/hr IV Q6H PRN PRN Reason: Nausea And Vomiting Stop: 11/21/23 03:31 Ceftriaxone Sodium 2,000 mg/ (Dextrose) 50 mls @ 100 mls/hr IV Q24H [facility] Stop: 11/05/23 05:59 Last Infusion: 10/30/23 14:04 Dose: Infused Insulin Aspart (Insulin Aspart Per Unit Charge) 0 units SC ACHS [facility] Stop: 11/21/23 03:29 Last Admin: 10/30/23 12:38 Dose: Not Given Metoprolol Succinate (Metoprolol Succ 50mg Ext Rel Tab) 50 mg PO AMHS [facility] Stop: 11/21/23 08:59 Last Admin: 10/30/23 07:54 Dose: 50 mg Miconazole Nitrate (Miconazole Nitrate Powder 85 Gm) 1 appln EXT PRN PRN PRN Reason: Affected Skin Folds Stop: 11/21/23 15:18 Last Admin: 10/25/23 13:03 Dose: 1 appln Mirtazapine (Mirtazapine Tab 15 Mg Tab) 15 mg PO HS [facility] Stop: 11/21/23 20:59 Last Admin: 10/29/23 20:38 Dose: 15 mg Miscellaneous (Carbohydrates For Hypoglycemia ) 15 - 30 gm PO UD PRN PRN Reason: Hypoglycemia Protocol Stop: 11/21/23 03:18 Pantoprazole Sodium (Pantoprazole 40 Mg Tab) 40 mg PO BID [facility] Stop: 11/21/23 08:59 Last Admin: 10/30/23 08:00 Dose: 40 mg Phenazopyridine HCl (Phenazopyridine Hcl 200 Mg Tab) 200 mg PO Q8 PRN PRN Reason: .BLADDER SPASMS Stop: 11/21/23 03:18 Polyethylene Glycol (Polyethylene (Miralax) 17 Gm Pack) 17 gm PO DAILY PRN PRN Reason: Constipation Stop: 11/23/23 10:33 Sennosides (Senna 8.6 Mg Tab) 8.6 mg PO HS [facility] Stop: 11/21/23 20:59 Last Admin: 10/29/23 20:38 Dose: 8.6 mg Sodium Chloride (Sodium Chloride 0.65% Na Soln 45 Ml ([place])) 1 sprays NA TID PRN PRN Reason: Nasal Congestion Stop: 11/29/23 12:50 Spironolactone (Spironolactone 25 Mg Tab) 25 mg PO QAM [facility] Stop: 11/23/23 08:59 Last Admin: 10/30/23 07:59 Dose: 25 mg Sucralfate (Sucralfate 1 Gm Tab) 1 gm PO [facility] Stop: 11/21/23 07:29 Last Admin: 10/30/23 12:52 Dose: Not Given Tramadol HCl (Tramadol Hcl 50 Mg Tablet) 25 - 50 mg PO Q4H PRN PRN Reason: Pain Stop: 11/21/23 05:22 Last Admin: 10/23/23 23:02 Dose: 50 mg
[2023-10-31] MEDS: ACETAMINOPHEN 325 MG TAB PO PRN (00:14)
[2023-10-31 08:31] LABS: Hematocrit (blood only) 34.7 % (37.0-47.0); Hemoglobin 10.1 g/dl (12.0-16.0); Mean Corpuscular Hemoglobin 26.6 pg (25.0-34.0); Mean Corpuscular Hgb Conc 29.1 g/dL (32.0-36.0); Mean Corpuscular Volume 91.6 fL (80.0-100.0); Platelet Count 314 K/uL (130-400); RDW Coefficient of Variation 14.7 % (11.5-14.5); RDW Standard Deviation 49.7 fL (36.4-46.3); Red Blood Count 3.79 M/uL (4.20-5.40); White Blood Count 6.57 K/ul (4.8-10.8)
[2023-10-31 08:47] LABS: BUN Creatinine Ratio 30.6 (10-20); Calcium 8.9 mg/dl (8.6-10.3); Creatinine Clr Calc Pharmacy 112.9 ml/min; Est GFR (African American) 108.9 ml/min; Magnesium 2.1 mg/dl (1.7-2.4); Phosphorus 4.2 mg/dl (2.5-4.9); Potassium 4.2 mmol/L (3.5-5.1)
--- NOTE | 2023-10-31 09:19 | Hospitalist Progress Note ---
Date of Service October 31, 2023 Assessment & Plan (1) Sepsis: Plan: Sepsis Secondary to complicated UTI and complicated by E. coli bacteremia and Chronic indwelling Osorio catheter H/O Pseudomonas UTI--was treated with ciprofloxacin S/P cystoscopy with extraction of left ureteral stone and insertion of left ureteral stent on 10/07/[address] Thorpe. Patient had stent removal on 10/15/2023. --CT ABD:Mild left hydroureteronephrosis with delayed enhancement of the left kidney. No obvious obstructing ureteral calculus identified on this exam the findings are suggestive of a recently passed ureteral calculus. -- Urine and blood cultures grew E. coli --Repeat blood cultures: No growth to date -- Was on cefepime, fluconazole and transitioned to ceftriaxone Appreciate ID input: Gina glabrata not likely pathogen per ID. Discontinue fluconazole as per ID. 10/31 discussed w/ ID - recommend to continue 14 days of total iv rocephin Appreciate urology input: Currently no plan for urological intervention. Maintain Osorio catheter. PT OT recommends rehab Case management to help with discharge planning Remains medically stable without any signs and or symptoms of infection No acute distress and/or symptoms Awaiting placement GERD--continue PPI, Carafate Has been on famotidine, Protonix and Carafate complained of nausea and dyspepsia before try Maalox/Mylanta as needed No complaints of nausea today Constipation Had bowel movement Continue bowel regimen Denies any bowel problems today Suspected L2 superior endplate compression deformity Currently denies any back pain Will consider further imaging if patient clinically complains of back pain Monitor Follow-up as outpatient Chronic anemia Hemoglobin at baseline Monitor CBC -hemoglobin is stable and it is 10.1 as of 10/31/2023 Will check CBC tomorrow Chronic Atrial fibrillation H/O PE/DVT Continue metoprolol On Eliquis for anticoagulation DM II Last HbA1c 6.1 Continue insulin per protocol while hospitalized Monitor BGs Other chronic conditions: Hypertension--continue metoprolol hyperlipidemia--continue statin Valvular heart disease (mild AR/TR) Bronchial Asthma--no signs of exacerbation Endometrial cancer S/P Radiation, In remission per record Chronic lymphedema--monitor volume status Morbid obesity BMI 46 lifestyle modification recommended DVT Px: Eliquis CODE STATUS Full code Disposition Rehab when arranged Admission and Anticipated Discharge Date Admission Date: October 22, 2023 Subjective Pt seen in follow up of UTI, bacteremia Laying in bed in NAD Overall feeling better however not able to move much, requires a lot of help to move No fever chills chest pain shortness of breath Has been getting physical therapy and awaiting placement Yesterday discussed w/ ID - recommend to cont. IV rocephin for total of 14 days Review of Systems Review of Systems: All systems reviewed & are unremarkable except as noted in Subjective Physical Exam Physical Exam: Physical Exam: Lying in bed in N AD Constitutional: + morbidly obese F in NAD Eyes: PERRL, conjunctiva e normal, anicteri c sclerae ENMT: external ear and n ose normal, oropha rynx normal Neck: supple Respiratory: no respiratory dis tress Auscultatio n: + diminished max ng sounds; no crac kles and no wheeze s Cardiovascular: irregular, not ta chycardic Extremi ties: + edema (Tra ce edema bilateral ly) Gastrointestinal ( Abdomen): Inspection/Auscult ation: normal davon l sounds; abdomen not distended Per cussion/Palpation: abdomen soft; abd omen nontender Neurologic: generally weak Psychiatric: A+Ox3, euthymic af fect Results & Data Results & Data Vital Signs (Past 12 Hours) Vital Signs Temp Pulse Pulse Resp BP BP Pulse Ox 10/31/23 07:28 10/31/23 07:27 36.6 C 69 18 135/78 96 10/31/23 06:57 63 10/31/23 02:20 36.4 C L 68 16 104/58 L 94 10/30/23 23:08 71 10/30/23 22:05 36.9 C 76 18 93/52 L 96 O2 Del Method O2 Flow Rate 10/31/23 07:28 Nasal Cannula 2 10/31/23 07:27 Room Air 10/31/23 06:57 10/31/23 02:20 Nasal Cannula 2 10/30/23 23:08 10/30/23 22:05 Nasal Cannula 2 Laboratory Results 10/31/23 10/31/23 10/30/23 Range/Units 08:23 07:56 20:07 WBC 6.57 (4.8-10.8) K/ul RBC 3.79 L (4.20-5.40) M/uL Hgb 10.1 L (12.0-16.0) g/dl Hct 34.7 L (37.0-47.0) % MCV 91.6 (80.0-100.0) fL MCH 26.6 (25.0-34.0) pg MCHC 29.1 L (32.0-36.0) g/dL RDW Std Deviation 49.7 H (36.4-46.3) fL RDW Coeff of Rodolfo 14.7 H (11.5-14.5) % Plt Count 314 (130-400) K/uL MPV 10.0 (9.4-12.4) fL Sodium 141 (136-145) mmol/L Potassium 4.2 (3.5-5.1) mmol/L Chloride 103 (98-107) mmol/L Carbon Dioxide 36 H (21-32) mmol/L Anion Gap 2 L (3-11) BUN 15 (6-23) mg/dl Creatinine 0.49 L (0.6-1.2) mg/dl Est Cr Clr Drug Dosing 112.9 ml/min Est GFR ( Amer) 108.9 ml/min Est GFR (Non-Af Amer) 94.0 ml/min BUN/Creatinine Ratio 30.6 H (10-20) Glucose 102 H (70-99(Fasting)) mg/dl POC Glucose 108 H 135 H (70-99) mg/dl Calcium 8.9 (8.6-10.3) mg/dl Phosphorus 4.2 (2.5-4.9) mg/dl Magnesium 2.1 (1.7-2.4) mg/dl 10/30/23 10/30/23 10/30/23 Range/Units 17:04 12:09 08:42 WBC (4.8-10.8) K/ul RBC (4.20-5.40) M/uL Hgb (12.0-16.0) g/dl Hct (37.0-47.0) % MCV (80.0-100.0) fL MCH (25.0-34.0) pg MCHC (32.0-36.0) g/dL RDW Std Deviation (36.4-46.3) fL RDW Coeff of Rodolfo (11.5-14.5) % Plt Count (130-400) K/uL MPV (9.4-12.4) fL Sodium 139 (136-145) mmol/L Potassium 4.3 (3.5-5.1) mmol/L Chloride 102 (98-107) mmol/L Carbon Dioxide 34 H (21-32) mmol/L Anion Gap 3 (3-11) BUN 14 (6-23) mg/dl Creatinine 0.54 L (0.6-1.2) mg/dl Est Cr Clr Drug Dosing 103.7 ml/min Est GFR ( Amer) 105.5 ml/min Est GFR (Non-Af Amer) 91.0 ml/min BUN/Creatinine Ratio 25.9 H (10-20) Glucose 109 H (70-99(Fasting)) mg/dl POC Glucose 107 H 125 H (70-99) mg/dl Calcium 9.0 (8.6-10.3) mg/dl Phosphorus 4.2 (2.5-4.9) mg/dl Magnesium 2.0 (1.7-2.4) mg/dl Medications Administered Current Inpatient Medications Acetaminophen (Acetaminophen 325 Mg Tab) 650 mg PO QID PRN PRN Reason: pain/fever Stop: 11/21/23 03:31 Last Admin: 10/31/23 00:14 Dose: 650 mg Al Hydrox/Mg Hydrox/Simethicone (Aluminum/Magnesium Susp 30 Ml Udc) 30 ml PO Q6H PRN PRN Reason: Dyspepsia Stop: 11/27/23 13:13 Apixaban (Apixaban 5 Mg Tablet) 5 mg PO [facility] Stop: 11/21/23 08:59 Last Admin: 10/31/23 08:06 Dose: 5 mg Atorvastatin Calcium (Atorvastatin 40 Mg Tab) 80 mg PO [facility] Stop: 11/21/23 20:59 Last Admin: 10/30/23 20:04 Dose: 80 mg Bisacodyl (Bisacodyl 10 Mg Supp) 10 mg [place] DAILY PRN PRN Reason: Constipation Stop: 11/24/23 12:36 Dextrose (Dextrose 50% 50 Ml Syringe) 25 - 50 ml IV UD PRN; Protocol PRN Reason: Hypoglycemia Protocol Stop: 11/21/23 03:18 Docusate Sodium (Docusate Sodium 100 Mg Cap) 100 mg PO [facility] Stop: 11/21/23 20:59 Last Admin: 10/30/23 20:03 Dose: 100 mg Escitalopram Oxalate (Escitalopram Oxalate 10 Mg Tab) 10 mg PO QAM [facility] Stop: 11/21/23 08:59 Last Admin: 10/31/23 08:05 Dose: 10 mg Famotidine (Famotidine 20 Mg Tab) 20 mg PO BID [facility] Stop: 11/21/23 08:59 Last Admin: 10/31/23 08:06 Dose: 20 mg Glucagon (Glucagon For Inj 1 Mg Vial) 1 mg SQ UD PRN; Protocol PRN Reason: Hypoglycemia Protocol Stop: 11/21/23 03:18 Glucose (Glucose 10 Tab/Tube) 4 - 8 tab PO UD PRN; Protocol PRN Reason: Hypoglycemia Treatment Stop: 11/21/23 03:18 Glucose (Glucose 40% Gel 15 Gm Tube) 15 - 30 gm PO UD PRN; Protocol PRN Reason: Hypoglycemia Protocol Stop: 11/21/23 03:18 Promethazine HCl 12.5 mg/ (Sodium Chloride) 50.5 mls @ 202 mls/hr IV Q6H PRN PRN Reason: Nausea And Vomiting Stop: 11/21/23 03:31 Ceftriaxone Sodium 2,000 mg/ (Dextrose) 50 mls @ 100 mls/hr IV Q24H [facility] Stop: 11/05/23 05:59 Last Infusion: 10/30/23 14:04 Dose: Infused Insulin Aspart (Insulin Aspart Per Unit Charge) 0 units SC ACHS [facility] Stop: 11/21/23 03:29 Last Admin: 10/30/23 20:10 Dose: Not Given Metoprolol Succinate (Metoprolol Succ 50mg Ext Rel Tab) 50 mg PO AMHS [facility] Stop: 11/21/23 08:59 Last Admin: 10/31/23 08:07 Dose: 50 mg Miconazole Nitrate (Miconazole Nitrate Powder 85 Gm) 1 appln EXT PRN PRN PRN Reason: Affected Skin Folds Stop: 11/21/23 15:18 Last Admin: 10/25/23 13:03 Dose: 1 appln Mirtazapine (Mirtazapine Tab 15 Mg Tab) 15 mg PO HS [facility] Stop: 11/21/23 20:59 Last Admin: 10/30/23 20:04 Dose: 15 mg Miscellaneous (Carbohydrates For Hypoglycemia ) 15 - 30 gm PO UD PRN PRN Reason: Hypoglycemia Protocol Stop: 11/21/23 03:18 Pantoprazole Sodium (Pantoprazole 40 Mg Tab) 40 mg PO BID [facility] Stop: 11/21/23 08:59 Last Admin: 10/31/23 08:04 Dose: 40 mg Phenazopyridine HCl (Phenazopyridine Hcl 200 Mg Tab) 200 mg PO Q8 PRN PRN Reason: .BLADDER SPASMS Stop: 11/21/23 03:18 Polyethylene Glycol (Polyethylene (Miralax) 17 Gm Pack) 17 gm PO DAILY PRN PRN Reason: Constipation Stop: 11/23/23 10:33 Sennosides (Senna 8.6 Mg Tab) 8.6 mg PO HS [facility] Stop: 11/21/23 20:59 Last Admin: 10/30/23 20:04 Dose: 8.6 mg Sodium Chloride (Sodium Chloride 0.65% Na Soln 45 Ml ([place])) 1 sprays NA TID PRN PRN Reason: Nasal Congestion Stop: 11/29/23 12:50 Spironolactone (Spironolactone 25 Mg Tab) 25 mg PO QAM [facility] Stop: 11/23/23 08:59 Last Admin: 10/31/23 08:07 Dose: 25 mg Sucralfate (Sucralfate 1 Gm Tab) 1 gm PO ACHS [facility] Stop: 11/21/23 07:29 Last Admin: 10/31/23 08:06 Dose: 1 gm Tramadol HCl (Tramadol Hcl 50 Mg Tablet) 25 - 50 mg PO Q4H PRN PRN Reason: Pain Stop: 11/21/23 05:22 Last Admin: 10/23/23 23:02 Dose: 50 mg
[2023-10-31] MEDS: DICLOFENAC SOD 1% GEL 100 GM TUBE EXT SCH (18:31)
--- NOTE | 2023-11-01 09:07 | Hospitalist Progress Note ---
Date of Service November 01, 2023 Assessment & Plan (1) Sepsis: Plan: Sepsis Secondary to complicated UTI and complicated by E. coli bacteremia and Chronic indwelling Osorio catheter H/O Pseudomonas UTI--was treated with ciprofloxacin S/P cystoscopy with extraction of left ureteral stone and insertion of left ureteral stent on 10/07/[address] Thorpe. Patient had stent removal on 10/15/2023. --CT ABD:Mild left hydroureteronephrosis with delayed enhancement of the left kidney. No obvious obstructing ureteral calculus identified on this exam the findings are suggestive of a recently passed ureteral calculus. -- Urine and blood cultures grew E. coli --Repeat blood cultures: No growth to date -- Was on cefepime, fluconazole and transitioned to ceftriaxone Appreciate ID input: Gina glabrata not likely pathogen per ID. Discontinue fluconazole as per ID. 10/31 discussed w/ ID - recommend to continue 14 days of total iv rocephin Appreciate urology input: Currently no plan for urological intervention. Maintain Osorio catheter. PT OT recommends rehab Case management to help with discharge planning Remains medically stable without any signs and or symptoms of infection No acute distress and/or symptoms Awaiting placement GERD--continue PPI, Carafate Has been on famotidine, Protonix and Carafate complained of nausea and dyspepsia before try Maalox/Mylanta as needed No complaints of nausea today Constipation Had bowel movement Continue bowel regimen Denies any bowel problems today Suspected L2 superior endplate compression deformity Currently denies any back pain Will consider further imaging if patient clinically complains of back pain Monitor Follow-up as outpatient Chronic anemia Hemoglobin at baseline Monitor CBC -hemoglobin is stable and it is 10.1 as of 10/31/2023 Will check CBC tomorrow Chronic Atrial fibrillation H/O PE/DVT Continue metoprolol On Eliquis for anticoagulation DM II Last HbA1c 6.1 Continue insulin per protocol while hospitalized Monitor BGs Other chronic conditions: Hypertension--continue metoprolol hyperlipidemia--continue statin Valvular heart disease (mild AR/TR) Bronchial Asthma--no signs of exacerbation Endometrial cancer S/P Radiation, In remission per record Chronic lymphedema--monitor volume status Morbid obesity BMI 46 lifestyle modification recommended DVT Px: Eliquis CODE STATUS Full code Disposition Rehab when arranged Admission and Anticipated Discharge Date Admission Date: October 22, 2023 Subjective Pt seen in follow up of UTI, bacteremia Laying in bed in NAD Overall feeling better however not able to move much, requires a lot of help to move No fever chills chest pain shortness of breath Has been getting physical therapy and awaiting placement Previously discussed w/ ID - recommend to cont. IV rocephin for total of 14 days Review of Systems Review of Systems: All systems reviewed & are unremarkable except as noted in Subjective Physical Exam Physical Exam: Physical Exam: Lying in bed in N AD Constitutional: + morbidly obese F in NAD Eyes: PERRL, conjunctiva e normal, anicteri c sclerae ENMT: external ear and n ose normal, oropha rynx normal Neck: supple Respiratory: no respiratory dis tress Auscultatio n: + diminished max ng sounds; no crac kles and no wheeze s Cardiovascular: irregular, not ta chycardic Extremi ties: + edema (Tra ce edema bilateral ly) Gastrointestinal ( Abdomen): Inspection/Auscult ation: normal davon l sounds; abdomen not distended Per cussion/Palpation: abdomen soft; abd omen nontender Neurologic: generally weak Psychiatric: A+Ox3, euthymic af fect Results & Data Results & Data Vital Signs (Past 12 Hours) Vital Signs Temp Pulse Pulse Resp BP BP Pulse Ox 11/01/23 07:50 36.6 C 66 16 106/63 98 11/01/23 07:27 62 11/01/23 04:20 36.6 C 61 16 112/69 96 11/01/23 00:10 57 L 10/31/23 22:28 36.8 C 57 L 18 136/68 96 10/31/23 22:26 O2 Del Method O2 Flow Rate 11/01/23 07:50 Room Air 11/01/23 07:27 11/01/23 04:20 Nasal Cannula 2 11/01/23 00:10 10/31/23 22:28 Nasal Cannula 2 10/31/23 22:26 Nasal Cannula 2 Medications Administered Current Inpatient Medications Acetaminophen (Acetaminophen 325 Mg Tab) 650 mg PO QID PRN PRN Reason: pain/fever Stop: 11/21/23 03:31 Last Admin: 10/31/23 00:14 Dose: 650 mg Al Hydrox/Mg Hydrox/Simethicone (Aluminum/Magnesium Susp 30 Ml Udc) 30 ml PO Q6H PRN PRN Reason: Dyspepsia Stop: 11/27/23 13:13 Apixaban (Apixaban 5 Mg Tablet) 5 mg PO AMHS [facility] Stop: 11/21/23 08:59 Last Admin: 11/01/23 07:49 Dose: 5 mg Atorvastatin Calcium (Atorvastatin 40 Mg Tab) 80 mg PO HS [facility] Stop: 11/21/23 20:59 Last Admin: 10/31/23 20:06 Dose: 80 mg Bisacodyl (Bisacodyl 10 Mg Supp) [address] DAILY PRN PRN Reason: Constipation Stop: 11/24/23 12:36 Dextrose (Dextrose 50% 50 Ml Syringe) 25 - 50 ml IV UD PRN; Protocol PRN Reason: Hypoglycemia Protocol Stop: 11/21/23 03:18 Diclofenac Sodium (Diclofenac Sod 1% Gel 100 Gm Tube) 2 gm EXT BID [facility]; Protocol Stop: 11/30/23 20:59 Last Admin: 11/01/23 07:50 Dose: 2 gm Docusate Sodium (Docusate Sodium 100 Mg Cap) 100 mg PO [facility] Stop: 11/21/23 20:59 Last Admin: 10/31/23 20:12 Dose: 100 mg Escitalopram Oxalate (Escitalopram Oxalate 10 Mg Tab) 10 mg PO QAM [facility] Stop: 11/21/23 08:59 Last Admin: 11/01/23 07:49 Dose: 10 mg Famotidine (Famotidine 20 Mg Tab) 20 mg PO BID [facility] Stop: 11/21/23 08:59 Last Admin: 11/01/23 07:52 Dose: 20 mg Glucagon (Glucagon For Inj 1 Mg Vial) 1 mg SQ UD PRN; Protocol PRN Reason: Hypoglycemia Protocol Stop: 11/21/23 03:18 Glucose (Glucose 10 Tab/Tube) 4 - 8 tab PO UD PRN; Protocol PRN Reason: Hypoglycemia Treatment Stop: 11/21/23 03:18 Glucose (Glucose 40% Gel 15 Gm Tube) 15 - 30 gm PO UD PRN; Protocol PRN Reason: Hypoglycemia Protocol Stop: 11/21/23 03:18 Promethazine HCl 12.5 mg/ (Sodium Chloride) 50.5 mls @ 202 mls/hr IV Q6H PRN PRN Reason: Nausea And Vomiting Stop: 11/21/23 03:31 Ceftriaxone Sodium 2,000 mg/ (Dextrose) 50 mls @ 100 mls/hr IV Q24H [facility] Stop: 11/05/23 05:59 Last Infusion: 10/31/23 14:38 Dose: Infused Insulin Aspart (Insulin Aspart Per Unit Charge) 0 units SC ACHS [facility] Stop: 11/21/23 03:29 Last Admin: 10/31/23 20:11 Dose: Not Given Metoprolol Succinate (Metoprolol Succ 50mg Ext Rel Tab) 50 mg PO AMHS [facility] Stop: 11/21/23 08:59 Last Admin: 11/01/23 07:49 Dose: 50 mg Miconazole Nitrate (Miconazole Nitrate Powder 85 Gm) 1 appln EXT PRN PRN PRN Reason: Affected Skin Folds Stop: 11/21/23 15:18 Last Admin: 10/25/23 13:03 Dose: 1 appln Mirtazapine (Mirtazapine Tab 15 Mg Tab) 15 mg PO HS [facility] Stop: 11/21/23 20:59 Last Admin: 10/31/23 20:06 Dose: 15 mg Miscellaneous (Carbohydrates For Hypoglycemia ) 15 - 30 gm PO UD PRN PRN Reason: Hypoglycemia Protocol Stop: 11/21/23 03:18 Pantoprazole Sodium (Pantoprazole 40 Mg Tab) 40 mg PO BID [facility] Stop: 11/21/23 08:59 Last Admin: 11/01/23 07:51 Dose: 40 mg Phenazopyridine HCl (Phenazopyridine Hcl 200 Mg Tab) 200 mg PO Q8 PRN PRN Reason: .BLADDER SPASMS Stop: 11/21/23 03:18 Polyethylene Glycol (Polyethylene (Miralax) 17 Gm Pack) 17 gm PO DAILY PRN PRN Reason: Constipation Stop: 11/23/23 10:33 Sennosides (Senna 8.6 Mg Tab) 8.6 mg PO HS [facility] Stop: 11/21/23 20:59 Last Admin: 10/31/23 20:05 Dose: 8.6 mg Sodium Chloride (Sodium Chloride 0.65% Na Soln 45 Ml ([place])) 1 sprays NA TID PRN PRN Reason: Nasal Congestion Stop: 11/29/23 12:50 Spironolactone (Spironolactone 25 Mg Tab) 25 mg PO QAM [facility] Stop: 11/23/23 08:59 Last Admin: 11/01/23 07:51 Dose: 25 mg Sucralfate (Sucralfate 1 Gm Tab) 1 gm PO ACHS [facility] Stop: 11/21/23 07:29 Last Admin: 11/01/23 07:52 Dose: 1 gm Tramadol HCl (Tramadol Hcl 50 Mg Tablet) 25 - 50 mg PO Q4H PRN PRN Reason: Pain Stop: 11/21/23 05:22 Last Admin: 10/23/23 23:02 Dose: 50 mg
--- NOTE | 2023-11-02 11:22 | Hospitalist Progress Note ---
Date of Service November 02, 2023 Assessment & Plan (1) Sepsis: Plan: Sepsis Secondary to complicated UTI and complicated by E. coli bacteremia and Chronic indwelling Osorio catheter H/O Pseudomonas UTI--was treated with ciprofloxacin S/P cystoscopy with extraction of left ureteral stone and insertion of left ureteral stent on 10/07/[address] Thorpe. Patient had stent removal on 10/15/2023. --CT ABD:Mild left hydroureteronephrosis with delayed enhancement of the left kidney. No obvious obstructing ureteral calculus identified on this exam the findings are suggestive of a recently passed ureteral calculus. -- Urine and blood cultures grew E. coli --Repeat blood cultures: No growth to date -- Was on cefepime, fluconazole and transitioned to ceftriaxone Appreciate ID input: Gina glabrata not likely pathogen per ID. Discontinue fluconazole as per ID. 10/31 discussed w/ ID - recommend to continue 14 days of total iv rocephin Appreciate urology input: Currently no plan for urological intervention. Maintain Osorio catheter. PT OT recommends rehab Case management to help with discharge planning Remains medically stable without any signs and or symptoms of infection No acute distress and/or symptoms Awaiting placement GERD--continue PPI, Carafate Has been on famotidine, Protonix and Carafate complained of nausea and dyspepsia before try Maalox/Mylanta as needed No complaints of nausea today Constipation Had bowel movement Continue bowel regimen Denies any bowel problems today Suspected L2 superior endplate compression deformity Currently denies any back pain Will consider further imaging if patient clinically complains of back pain Monitor Follow-up as outpatient Chronic anemia Hemoglobin at baseline Monitor CBC -hemoglobin is stable and it is 10.1 as of 10/31/2023 Will check CBC tomorrow Chronic Atrial fibrillation H/O PE/DVT Continue metoprolol On Eliquis for anticoagulation DM II Last HbA1c 6.1 Continue insulin per protocol while hospitalized Monitor BGs Other chronic conditions: Hypertension--continue metoprolol hyperlipidemia--continue statin Valvular heart disease (mild AR/TR) Bronchial Asthma--no signs of exacerbation Endometrial cancer S/P Radiation, In remission per record Chronic lymphedema--monitor volume status Morbid obesity BMI 46 lifestyle modification recommended DVT Px: Eliquis CODE STATUS Full code Disposition Rehab when arranged Admission and Anticipated Discharge Date Admission Date: October 22, 2023 Subjective Pt seen in follow up of UTI, bacteremia Laying in bed in NAD Overall feeling better however not able to move much, requires a lot of help to move No fever chills chest pain shortness of breath Has been getting physical therapy and awaiting placement Previously discussed w/ ID - recommend to cont. IV rocephin for total of 14 days Review of Systems Review of Systems: All systems reviewed & are unremarkable except as noted in Subjective Physical Exam Physical Exam: Physical Exam: Lying in bed in N AD Constitutional: + morbidly obese F in NAD Eyes: PERRL, conjunctiva e normal, anicteri c sclerae ENMT: external ear and n ose normal, oropha rynx normal Neck: supple Respiratory: no respiratory dis tress Auscultatio n: + diminished max ng sounds; no crac kles and no wheeze s Cardiovascular: irregular, not ta chycardic Extremi ties: + edema (Tra ce edema bilateral ly) Gastrointestinal ( Abdomen): Inspection/Auscult ation: normal davon l sounds; abdomen not distended Per cussion/Palpation: abdomen soft; abd omen nontender Neurologic: generally weak Psychiatric: A+Ox3, euthymic af fect Results & Data Results & Data Vital Signs (Past 12 Hours) Vital Signs Temp Pulse Pulse Resp BP Pulse Ox O2 Del Method 11/02/23 07:52 Nasal Cannula 11/02/23 07:30 60 11/02/23 03:15 36.6 C 64 18 102/64 94 Room Air 11/01/23 23:48 36.7 C 74 18 100/59 L 93 Room Air 11/01/23 23:45 66 O2 Flow Rate 11/02/23 07:52 2 11/02/23 07:30 11/02/23 03:15 11/01/23 23:48 11/01/23 23:45 Medications Administered Current Inpatient Medications Acetaminophen (Acetaminophen 325 Mg Tab) 650 mg PO QID PRN PRN Reason: pain/fever Stop: 11/21/23 03:31 Last Admin: 11/01/23 21:09 Dose: 650 mg Al Hydrox/Mg Hydrox/Simethicone (Aluminum/Magnesium Susp 30 Ml Udc) 30 ml PO Q6H PRN PRN Reason: Dyspepsia Stop: 11/27/23 13:13 Apixaban (Apixaban 5 Mg Tablet) 5 mg PO AMHS [facility] Stop: 11/21/23 08:59 Last Admin: 11/02/23 08:18 Dose: 5 mg Atorvastatin Calcium (Atorvastatin 40 Mg Tab) 80 mg PO HS [facility] Stop: 11/21/23 20:59 Last Admin: 11/01/23 20:59 Dose: 80 mg Bisacodyl (Bisacodyl 10 Mg Supp) 10 mg [place] DAILY PRN PRN Reason: Constipation Stop: 11/24/23 12:36 Dextrose (Dextrose 50% 50 Ml Syringe) 25 - 50 ml IV UD PRN; Protocol PRN Reason: Hypoglycemia Protocol Stop: 11/21/23 03:18 Diclofenac Sodium (Diclofenac Sod 1% Gel 100 Gm Tube) 2 gm EXT BID [facility]; Protocol Stop: 11/30/23 20:59 Last Admin: 11/02/23 08:19 Dose: 2 gm Docusate Sodium (Docusate Sodium 100 Mg Cap) 100 mg PO HS [facility] Stop: 11/21/23 20:59 Last Admin: 11/01/23 21:09 Dose: 100 mg Escitalopram Oxalate (Escitalopram Oxalate 10 Mg Tab) 10 mg PO QAM [facility] Stop: 11/21/23 08:59 Last Admin: 11/02/23 08:20 Dose: 10 mg Famotidine (Famotidine 20 Mg Tab) 20 mg PO BID [facility] Stop: 11/21/23 08:59 Last Admin: 11/02/23 08:20 Dose: 20 mg Glucagon (Glucagon For Inj 1 Mg Vial) 1 mg SQ UD PRN; Protocol PRN Reason: Hypoglycemia Protocol Stop: 11/21/23 03:18 Glucose (Glucose 10 Tab/Tube) 4 - 8 tab PO UD PRN; Protocol PRN Reason: Hypoglycemia Treatment Stop: 11/21/23 03:18 Glucose (Glucose 40% Gel 15 Gm Tube) 15 - 30 gm PO UD PRN; Protocol PRN Reason: Hypoglycemia Protocol Stop: 11/21/23 03:18 Promethazine HCl 12.5 mg/ (Sodium Chloride) 50.5 mls @ 202 mls/hr IV Q6H PRN PRN Reason: Nausea And Vomiting Stop: 11/21/23 03:31 Ceftriaxone Sodium 2,000 mg/ (Dextrose) 50 mls @ 100 mls/hr IV Q24H [facility] Stop: 11/05/23 05:59 Last Infusion: 11/01/23 13:50 Dose: Infused Insulin Aspart (Insulin Aspart Per Unit Charge) 0 units SC ACHS [facility] Stop: 11/21/23 03:29 Last Admin: 11/02/23 09:12 Dose: Not Given Metoprolol Succinate (Metoprolol Succ 50mg Ext Rel Tab) 50 mg PO AMHS [facility] Stop: 11/21/23 08:59 Last Admin: 11/02/23 08:18 Dose: 50 mg Miconazole Nitrate (Miconazole Nitrate Powder 85 Gm) 1 appln EXT PRN PRN PRN Reason: Affected Skin Folds Stop: 11/21/23 15:18 Last Admin: 10/25/23 13:03 Dose: 1 appln Mirtazapine (Mirtazapine Tab 15 Mg Tab) 15 mg PO [facility] Stop: 11/21/23 20:59 Last Admin: 11/01/23 20:59 Dose: 15 mg Miscellaneous (Carbohydrates For Hypoglycemia ) 15 - 30 gm PO UD PRN PRN Reason: Hypoglycemia Protocol Stop: 11/21/23 03:18 Pantoprazole Sodium (Pantoprazole 40 Mg Tab) 40 mg PO BID [facility] Stop: 11/21/23 08:59 Last Admin: 11/02/23 08:18 Dose: 40 mg Phenazopyridine HCl (Phenazopyridine Hcl 200 Mg Tab) 200 mg PO Q8 PRN PRN Reason: .BLADDER SPASMS Stop: 11/21/23 03:18 Polyethylene Glycol (Polyethylene (Miralax) 17 Gm Pack) 17 gm PO DAILY PRN PRN Reason: Constipation Stop: 11/23/23 10:33 Sennosides (Senna 8.6 Mg Tab) 8.6 mg PO HS [facility] Stop: 11/21/23 20:59 Last Admin: 11/01/23 20:58 Dose: 8.6 mg Sodium Chloride (Sodium Chloride 0.65% Na Soln 45 Ml ([place])) 1 sprays NA TID PRN PRN Reason: Nasal Congestion Stop: 11/29/23 12:50 Spironolactone (Spironolactone 25 Mg Tab) 25 mg PO QAM [facility] Stop: 11/23/23 08:59 Last Admin: 11/02/23 08:19 Dose: 25 mg Sucralfate (Sucralfate 1 Gm Tab) 1 gm PO [facility] Stop: 11/21/23 07:29 Last Admin: 11/02/23 08:19 Dose: 1 gm Tramadol HCl (Tramadol Hcl 50 Mg Tablet) 25 - 50 mg PO Q4H PRN PRN Reason: Pain Stop: 11/21/23 05:22 Last Admin: 10/23/23 23:02 Dose: 50 mg
--- NOTE | 2023-11-03 15:10 | Hospitalist Progress Note ---
Date of Service November 03, 2023 Assessment & Plan (1) Sepsis: Plan: 78-year-old lady with PMH of A-fib on Eliquis, HTN, HLD, PE/DVT, bronchial asthma, T2DM, endometrial cancer status post radiation, recurrent UTI on chronic methenamine suppression treatment, hours incontinence, chronic indwelling Osorio catheter, urolithiasis, GERD, chronic anemia [baseline hemoglobin of 9], chronic lymphedema, osteoarthritis presented to the ED 10/22 with complaint of fever, chills, hematuria through Osorio catheter, poor appetite, temperature 100.4 at home. She is being managed for the following: Catheter associated UTI/complicated UTI Sepsis POA: WBC and pulse rate elevated at presentation. Likely secondary to above E. coli bacteremia: E. coli bacteremia: 10/21 blood culture with E. coli, 10/21 urine culture with E. coli. Repeat blood culture from 10/23 with no growth. Patient came in with complaint of constitutional symptoms and hematuria through Osorio catheter. S/P cystoscopy with extraction of left ureteral stone and insertion of left ureteral stent on 10/07/[address] Thorpe. Patient had stent removal on 10/15/2023. --CT ABD:Mild left hydroureteronephrosis with delayed enhancement of the left kidney. No obvious obstructing ureteral calculus identified on this exam the findings are suggestive of a recently passed ureteral calculus. Was on cefepime, fluconazole and transitioned to ceftriaxone with ID recommendation, plan for 14 days of total IV Rocephin. Appreciate urology input: Currently no plan for urological intervention. Maintain Osorio catheter. PT OT recommends rehab. Case management to help with discharge planning Remains medically stable without any signs and or symptoms of infection GERD--continue PPI, Carafate Has been on famotidine, Protonix and Carafate complained of nausea and dyspepsia before try Maalox/Mylanta as needed No complaints of nausea today Constipation: continue with bowel regimen as needed Suspected L2 superior endplate compression deformity: Currently denies any back pain. Will consider further imaging if patient clinically complains of back pain. 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 Chronic anemia: Hemoglobin at baseline. Monitor as needed. Chronic A-fib/history of PE and DVT: Continue metoprolol and Eliquis T2DM: Last A1c of 6.1. Sliding scale insulin while in the hospital. HTN: Continue metoprolol HLD: Continue statin Asthma: No signs of exacerbation Endometrial cancer status post radiation, in remission per record. Chronic lymphedema: Monitor volume status Morbid obesity: Lifestyle modification encouraged. DVT prophylaxis: Eliquis CODE STATUS: Full code Disposition: Rehab when arranged Admission and Anticipated Discharge Date Admission Date: October 22, 2023 Subjective Patient was seen and examined at bedside. Patient was lying in bed, on room air, resting comfortably, not in any acute distress. Patient reports feeling better overall, requires a lot of assistance to help with moving. Denies any fever/chills/chest pain/shortness of breath/dizziness/headache. Reports chronic low back pain. Physical Exam Physical Exam: GENERAL: Alert and oriented x3. NAD, on RA. obesity class III. HEENT: No pallor, no icterus. Pupils equal, round and reactive to light. Oral mucosa moist. NECK: No JVD, no neck masses. HEART: S1 and S2 heard. irregular rate and rhythm. No murmur, no gallop. RESPIRATORY SYSTEM: Normal AP diameter. No accessory muscle use. No wheezing, no crackles. Diminished lung sounds at bases. ABDOMEN: Soft, bowel sounds present, nontender, no distention. CENTRAL NERVOUS SYSTEM: No facial droop. Speech is clear. Obeys simple commands. Moves extremities. EXTREMITIES: Trace BLE edema, no erythema seen. Results & Data Results & Data Vital Signs (Past 12 Hours) Vital Signs Temp Pulse Pulse Pulse Resp BP Pulse Ox 11/03/23 12:04 36.8 C 56 L 12 103/62 95 11/03/23 08:35 37 C 64 12 127/51 L 95 11/03/23 07:32 60 11/03/23 03:17 36.4 C L 61 18 114/67 93 O2 Del Method 11/03/23 12:04 Room Air 11/03/23 08:35 Room Air 11/03/23 07:32 11/03/23 03:17 Room Air
[2023-11-03] MEDS: SODIUM CHLORIDE 0.9% 1,000 ML IV ONE (21:23)
[2023-11-03 21:30] LABS: Calcium 8.9 mg/dl (8.6-10.3); Creatinine Clr Calc Pharmacy 93.6 ml/min; Est GFR (African American) 101.9 ml/min; Est GFR (Non-African American) 87.9 ml/min; Potassium 3.8 mmol/L (3.5-5.1)
[2023-11-03 21:34] LABS: Troponin I High Sensitivity 2.9 pg/ml (0-14)
[2023-11-03] MEDS ORDERED: NITROGLYCERIN SL 0.4 MG/TAB TAB SL PRN (21:45)
[2023-11-03 21:46] LABS: Basophils # (auto) 0.03 K/uL (0.00-0.20); Basophils % (auto) 0.4 %; Eosinophils # (auto) 0.23 K/uL (0.00-0.50); Eosinophils % (auto) 2.7 %; Hematocrit (blood only) 32.7 % (37.0-47.0); Hemoglobin 9.6 g/dl (12.0-16.0); Immature Granulocytes # (auto) 0.05 K/uL (0.01-0.20); Immature Granulocytes % (auto) 0.6 %; Lymphocytes # (auto) 2.98 K/uL (1.20-3.40); Lymphocytes % (auto) 35.6 %; Mean Corpuscular Hemoglobin 26.1 pg (25.0-34.0); Mean Corpuscular Hgb Conc 29.4 g/dL (32.0-36.0); Mean Corpuscular Volume 88.9 fL (80.0-100.0); Mean Platelet Volume 10.7 fL (9.4-12.4); Monocytes # (auto) 0.53 K/uL (0.11-0.59); Monocytes % (auto) 6.3 %; Neutrophils # (auto) 4.56 K/uL (1.40-6.50); Neutrophils % (auto) 54.4 %; Platelet Count 307 K/uL (130-400); RDW Coefficient of Variation 15.1 % (11.5-14.5); RDW Standard Deviation 49.1 fL (36.4-46.3); Red Blood Count 3.68 M/uL (4.20-5.40); White Blood Count 8.38 K/ul (4.8-10.8)
[2023-11-03 21:52] LABS: Partial Thromboplastin Ratio 0.9; Partial Thromboplastin Time 26 Seconds (21-31)
[2023-11-03] MEDS: POTASSIUM CHLORIDE CRTAB 20 MEQ TABCR PO STA (22:46)
--- NOTE | 2023-11-04 12:51 | Electrocardiogram Report ---
Test Reason : Blood Pressure : / mmHG Vent. Rate : 068 BPM Atrial Rate : 078 BPM P-R Int : 000 ms QRS Dur : 094 ms QT Int : 440 ms P-R-T Axes : 000 005 031 degrees QTc Int : 467 ms Atrial fibrillation Low voltage QRS Poor R wave progression, consider anterior MT vs. lead placement vs. LVH Abnormal ECG When compared with ECG of 21-OCT-2023 20:49, Nonspecific T wave abnormality, improved in Inferior leads Nonspecific T wave abnormality no longer evident in Lateral leads Confirmed by See Farias ([id number]) on 11/04/2023 12:51:12 PM Referred By: REFERRED SELF Confirmed By:Sundeep Farias
--- NOTE | 2023-11-04 13:16 | Hospitalist Progress Note ---
Date of Service November 04, 2023 Assessment & Plan (1) Sepsis: Plan: 78-year-old lady with PMH of A-fib on Eliquis, HTN, HLD, PE/DVT, bronchial asthma, T2DM, endometrial cancer status post radiation, recurrent UTI on chronic methenamine suppression treatment, hours incontinence, chronic indwelling Osorio catheter, urolithiasis, GERD, chronic anemia [baseline hemoglobin of 9], chronic lymphedema, osteoarthritis presented to the ED 10/22 with complaint of fever, chills, hematuria through Osorio catheter, poor appetite, temperature 100.4 at home. She is being managed for the following: Catheter associated UTI/complicated UTI Sepsis POA: WBC and pulse rate elevated at presentation. Likely secondary to above E. coli bacteremia: E. coli bacteremia: 10/21 blood culture with E. coli, 10/21 urine culture with E. coli. Repeat blood culture from 10/23 with no growth. Patient came in with complaint of constitutional symptoms and hematuria through Osorio catheter. S/P cystoscopy with extraction of left ureteral stone and insertion of left ureteral stent on 10/07/[address] Thorpe. Patient had stent removal on 10/15/2023. --CT ABD:Mild left hydroureteronephrosis with delayed enhancement of the left kidney. No obvious obstructing ureteral calculus identified on this exam the findings are suggestive of a recently passed ureteral calculus. Was on cefepime, fluconazole and transitioned to ceftriaxone with ID recommendation, plan for 14 days of total IV Rocephin. Appreciate urology input: Currently no plan for urological intervention. Maintain Osorio catheter. PT OT recommends rehab. Case management to help with discharge planning Remains medically stable without any signs and or symptoms of infection GERD--continue PPI, Carafate Has been on famotidine, Protonix and Carafate complained of nausea and dyspepsia before try Maalox/Mylanta as needed No complaints of nausea today Constipation: continue with bowel regimen as needed Suspected L2 superior endplate compression deformity: Currently denies any back pain. Will consider further imaging if patient clinically complains of back pain. 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 Chronic anemia: Hemoglobin at baseline. Monitor as needed. Chronic A-fib/history of PE and DVT: Continue metoprolol and Eliquis T2DM: Last A1c of 6.1. Sliding scale insulin while in the hospital. HTN: Continue metoprolol HLD: Continue statin Asthma: No signs of exacerbation Endometrial cancer status post radiation, in remission per record. Chronic lymphedema: Monitor volume status Morbid obesity: Lifestyle modification encouraged. DVT prophylaxis: Eliquis CODE STATUS: Full code Disposition: Rehab when arranged, med surg until then Admission and Anticipated Discharge Date Admission Date: October 22, 2023 Subjective Patient was seen and examined at bedside. Patient was lying in bed, on room air, resting comfortably, not in any acute distress. Patient reports feeling better overall, requires a lot of assistance to help with moving. Denies any fever/chills/chest pain/shortness of breath/dizziness/headache. Reports chronic low back pain. Physical Exam Physical Exam: GENERAL: Alert and oriented x3. NAD, on RA. obesity class III. HEENT: No pallor, no icterus. Pupils equal, round and reactive to light. Oral mucosa moist. NECK: No JVD, no neck masses. HEART: S1 and S2 heard. irregular rate and rhythm. No murmur, no gallop. RESPIRATORY SYSTEM: Normal AP diameter. No accessory muscle use. No wheezing, no crackles. Diminished lung sounds at bases. ABDOMEN: Soft, bowel sounds present, nontender, no distention. CENTRAL NERVOUS SYSTEM: No facial droop. Speech is clear. Obeys simple commands. Moves extremities. EXTREMITIES: Trace BLE edema, no erythema seen. Results & Data Results & Data Vital Signs (Past 12 Hours) Vital Signs Temp Pulse Pulse Resp BP Pulse Ox O2 Del Method 11/04/23 11:31 36.9 C 65 16 113/74 95 Room Air 11/04/23 07:50 37 C 65 128/72 93 Room Air 11/04/23 07:48 68 11/04/23 07:44 Room Air, Nasal Cannula 11/04/23 03:18 36.6 C 65 18 103/56 L 94 Room Air O2 Flow Rate 11/04/23 11:31 11/04/23 07:50 11/04/23 07:48 11/04/23 07:44 2 11/04/23 03:18
[2023-11-05] MEDS: MECLIZINE HCL 25 MG TAB PO PRN (09:02)
--- NOTE | 2023-11-05 14:19 | Hospitalist Progress Note ---
Date of Service November 05, 2023 Assessment & Plan (1) Sepsis: Plan: 78-year-old lady with PMH of A-fib on Eliquis, HTN, HLD, PE/DVT, bronchial asthma, T2DM, endometrial cancer status post radiation, recurrent UTI on chronic methenamine suppression treatment, hours incontinence, chronic indwelling Osorio catheter, urolithiasis, GERD, chronic anemia [baseline hemoglobin of 9], chronic lymphedema, osteoarthritis presented to the ED 10/22 with complaint of fever, chills, hematuria through Osorio catheter, poor appetite, temperature 100.4 at home. She is being managed for the following: Catheter associated UTI/complicated UTI Sepsis POA: WBC and pulse rate elevated at presentation. Likely secondary to above E. coli bacteremia: E. coli bacteremia: 10/21 blood culture with E. coli, 10/21 urine culture with E. coli. Repeat blood culture from 10/23 with no growth. Patient came in with complaint of constitutional symptoms and hematuria through Osorio catheter. S/P cystoscopy with extraction of left ureteral stone and insertion of left ureteral stent on 10/07/[address] Thorpe. Patient had stent removal on 10/15/2023. --CT ABD:Mild left hydroureteronephrosis with delayed enhancement of the left kidney. No obvious obstructing ureteral calculus identified on this exam the findings are suggestive of a recently passed ureteral calculus. Was on cefepime, fluconazole and transitioned to ceftriaxone with ID recommendation, plan for 14 days of total IV Rocephin. Completed antibiotic therapy 11/05. Appreciate urology input: Currently no plan for urological intervention. Maintain Osorio catheter. PT OT recommends rehab. Case management to help with discharge planning Remains medically stable without any signs and or symptoms of infection GERD--continue PPI, Carafate Has been on famotidine, Protonix and Carafate complained of nausea and dyspepsia before try Maalox/Mylanta as needed No complaints of nausea today Constipation: continue with bowel regimen as needed Suspected L2 superior endplate compression deformity: Currently denies any back pain. Will consider further imaging if patient clinically complains of back pain . 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 Chronic anemia: Hemoglobin at baseline. Monitor as needed. Chronic A-fib/history of PE and DVT: Continue metoprolol and Eliquis T2DM: Last A1c of 6.1. Sliding scale insulin while in the hospital. HTN: Continue metoprolol HLD: Continue statin Asthma: No signs of exacerbation Endometrial cancer status post radiation, in remission per record. Chronic lymphedema: Monitor volume status Morbid obesity: Lifestyle modification encouraged. DVT prophylaxis: Eliquis CODE STATUS: Full code Disposition: Rehab when arranged, med surg until then Admission and Anticipated Discharge Date Admission Date: October 22, 2023 Subjective Patient was seen and examined at bedside. Patient was lying in bed, on room air, resting comfortably, not in any acute distress. Patient reports feeling better overall, requires a lot of assistance to help with moving. Denies any fever/chills/chest pain/shortness of breath/dizziness/headache. Reports chronic low back pain. Physical Exam Physical Exam: GENERAL: Alert and oriented x3. NAD, on RA. obesity class III. HEENT: No pallor, no icterus. Pupils equal, round and reactive to light. Oral mucosa moist. NECK: No JVD, no neck masses. HEART: S1 and S2 heard. irregular rate and rhythm. No murmur, no gallop. RESPIRATORY SYSTEM: Normal AP diameter. No accessory muscle use. No wheezing, no crackles. Diminished lung sounds at bases. ABDOMEN: Soft, bowel sounds present, nontender, no distention. CENTRAL NERVOUS SYSTEM: No facial droop. Speech is clear. Obeys simple commands. Moves extremities. EXTREMITIES: Trace BLE edema, no erythema seen. Results & Data Results & Data Vital Signs (Past 12 Hours) Vital Signs Temp Pulse Resp BP Pulse Ox O2 Del Method 11/05/23 09:23 36.9 C 70 15 108/49 L 93 Room Air
--- NOTE | 2023-11-06 15:52 | Hospitalist Progress Note ---
Date of Service November 06, 2023 Assessment & Plan (1) Sepsis: Plan: 78-year-old lady with PMH of A-fib on Eliquis, HTN, HLD, PE/DVT, bronchial asthma, T2DM, endometrial cancer status post radiation, recurrent UTI on chronic methenamine suppression treatment, hours incontinence, chronic indwelling Osorio catheter, urolithiasis, GERD, chronic anemia [baseline hemoglobin of 9], chronic lymphedema, osteoarthritis presented to the ED 10/22 with complaint of fever, chills, hematuria through Osorio catheter, poor appetite, temperature 100.4 at home. She is being managed for the following: Catheter associated UTI/complicated UTI Sepsis POA: WBC and pulse rate elevated at presentation. Likely secondary to above E. coli bacteremia: E. coli bacteremia: 10/21 blood culture with E. coli, 10/21 urine culture with E. coli. Repeat blood culture from 10/23 with no growth. Patient came in with complaint of constitutional symptoms and hematuria through Osorio catheter. S/P cystoscopy with extraction of left ureteral stone and insertion of left ureteral stent on 10/07/[address] Thorpe. Patient had stent removal on 10/15/2023. --CT ABD:Mild left hydroureteronephrosis with delayed enhancement of the left kidney. No obvious obstructing ureteral calculus identified on this exam the findings are suggestive of a recently passed ureteral calculus. Was on cefepime, fluconazole and transitioned to ceftriaxone with ID recommendation, plan for 14 days of total IV Rocephin. Completed antibiotic therapy 11/05. Appreciate urology input: Currently no plan for urological intervention. Maintain Osorio catheter. PT OT recommends rehab. Case management to help with discharge planning Remains medically stable without any signs and or symptoms of infection GERD--continue PPI, Carafate Has been on famotidine, Protonix and Carafate complained of nausea and dyspepsia before try Maalox/Mylanta as needed No complaints of nausea today Constipation: continue with bowel regimen as needed Suspected L2 superior endplate compression deformity: Currently denies any back pain. Will consider further imaging if patient clinically complains of back pain . 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 Chronic anemia: Hemoglobin at baseline. Monitor as needed. Chronic A-fib/history of PE and DVT: Continue metoprolol and Eliquis T2DM: Last A1c of 6.1. Sliding scale insulin while in the hospital. HTN: Continue metoprolol HLD: Continue statin Asthma: No signs of exacerbation Endometrial cancer status post radiation, in remission per record. Chronic lymphedema: Monitor volume status Morbid obesity: Lifestyle modification encouraged. DVT prophylaxis: Eliquis CODE STATUS: Full code Disposition: Rehab when arranged, med surg until then Admission and Anticipated Discharge Date Admission Date: October 22, 2023 Subjective Patient was seen and examined at bedside. Patient was lying in bed, on room air, resting comfortably, not in any acute distress. Patient reports feeling better overall, requires a lot of assistance to help with moving. Denies any fever/chills/chest pain/shortness of breath/dizziness/headache. Reports chronic low back pain. Physical Exam Physical Exam: GENERAL: Alert and oriented x3. NAD, on RA. obesity class III. HEENT: No pallor, no icterus. Pupils equal, round and reactive to light. Oral mucosa moist. NECK: No JVD, no neck masses. HEART: S1 and S2 heard. irregular rate and rhythm. No murmur, no gallop. RESPIRATORY SYSTEM: Normal AP diameter. No accessory muscle use. No wheezing, no crackles. Diminished lung sounds at bases. ABDOMEN: Soft, bowel sounds present, nontender, no distention. CENTRAL NERVOUS SYSTEM: No facial droop. Speech is clear. Obeys simple commands. Moves extremities. EXTREMITIES: Trace BLE edema, no erythema seen. Results & Data Results & Data Vital Signs (Past 12 Hours) Vital Signs Temp Pulse Resp BP BP Pulse Ox O2 Del Method 11/06/23 15:13 36.9 C 67 16 119/73 96 Room Air 11/06/23 07:09 36.3 C L 64 14 115/51 L 95 Room Air
--- NOTE | 2023-11-07 16:02 | Hospitalist Progress Note ---
Date of Service November 07, 2023 Assessment & Plan (1) Sepsis: Plan: 78-year-old lady with PMH of A-fib on Eliquis, HTN, HLD, PE/DVT, bronchial asthma, T2DM, endometrial cancer status post radiation, recurrent UTI on chronic methenamine suppression treatment, hours incontinence, chronic indwelling Osorio catheter, urolithiasis, GERD, chronic anemia [baseline hemoglobin of 9], chronic lymphedema, osteoarthritis presented to the ED 10/22 with complaint of fever, chills, hematuria through Osorio catheter, poor appetite, temperature 100.4 at home. She is being managed for the following: Catheter associated UTI/complicated UTI Sepsis POA: WBC and pulse rate elevated at presentation. Likely secondary to above E. coli bacteremia: E. coli bacteremia: 10/21 blood culture with E. coli, 10/21 urine culture with E. coli. Repeat blood culture from 10/23 with no growth. Patient came in with complaint of constitutional symptoms and hematuria through Osoroi catheter. S/P cystoscopy with extraction of left ureteral stone and insertion of left ureteral stent on 10/07/[address] Thorpe. Patient had stent removal on 10/15/2023. --CT ABD:Mild left hydroureteronephrosis with delayed enhancement of the left kidney. No obvious obstructing ureteral calculus identified on this exam the findings are suggestive of a recently passed ureteral calculus. Was on cefepime, fluconazole and transitioned to ceftriaxone with ID recommendation, plan for 14 days of total IV Rocephin. Completed antibiotic therapy 11/05. Appreciate urology input: Currently no plan for urological intervention. Maintain Osorio catheter. PT OT recommends rehab. Case management to help with discharge planning Remains medically stable without any signs and or symptoms of infection GERD--continue PPI, Carafate Has been on famotidine, Protonix and Carafate complained of nausea and dyspepsia before try Maalox/Mylanta as needed No complaints of nausea today Constipation: continue with bowel regimen as needed Suspected L2 superior endplate compression deformity: Currently denies any back pain. Will consider further imaging if patient clinically complains of back pain . 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 Chronic anemia: Hemoglobin at baseline. Monitor as needed. Chronic A-fib/history of PE and DVT: Continue metoprolol and Eliquis T2DM: Last A1c of 6.1. Sliding scale insulin while in the hospital. HTN: Continue metoprolol HLD: Continue statin Asthma: No signs of exacerbation Endometrial cancer status post radiation, in remission per record. Chronic lymphedema: Monitor volume status Morbid obesity: Lifestyle modification encouraged. DVT prophylaxis: Eliquis CODE STATUS: Full code Disposition: Rehab when arranged, med surg until then Admission and Anticipated Discharge Date Admission Date: October 22, 2023 Subjective Patient was seen and examined at bedside. Patient was lying in bed, on room air, resting comfortably, not in any acute distress. Patient reports feeling better overall, requires a lot of assistance to help with moving. Denies any fever/chills/chest pain/shortness of breath/dizziness/headache. Reports chronic low back pain. Physical Exam Physical Exam: GENERAL: Alert and oriented x3. NAD, on RA. obesity class III. HEENT: No pallor, no icterus. Pupils equal, round and reactive to light. Oral mucosa moist. NECK: No JVD, no neck masses. HEART: S1 and S2 heard. irregular rate and rhythm. No murmur, no gallop. RESPIRATORY SYSTEM: Normal AP diameter. No accessory muscle use. No wheezing, no crackles. Diminished lung sounds at bases. ABDOMEN: Soft, bowel sounds present, nontender, no distention. CENTRAL NERVOUS SYSTEM: No facial droop. Speech is clear. Obeys simple commands. Moves extremities. EXTREMITIES: Trace BLE edema, no erythema seen. Results & Data Results & Data Vital Signs (Past 12 Hours) Vital Signs Temp Pulse Pulse Resp BP Pulse Ox O2 Del Method 11/07/23 15:37 36.6 C 63 16 112/66 94 Room Air 11/07/23 07:19 36.9 C 62 18 114/72 96 Room Air
--- NOTE | 2023-11-08 15:20 | Hospitalist Progress Note ---
Date of Service November 08, 2023 Assessment & Plan (1) Sepsis: Plan: 78-year-old lady with PMH of A-fib on Eliquis, HTN, HLD, PE/DVT, bronchial asthma, T2DM, endometrial cancer status post radiation, recurrent UTI on chronic methenamine suppression treatment, hours incontinence, chronic indwelling Osorio catheter, urolithiasis, GERD, chronic anemia [baseline hemoglobin of 9], chronic lymphedema, osteoarthritis presented to the ED 10/22 with complaint of fever, chills, hematuria through Osorio catheter, poor appetite, temperature 100.4 at home. She is being managed for the following: Catheter associated UTI/complicated UTI Sepsis POA: WBC and pulse rate elevated at presentation. Likely secondary to above E. coli bacteremia: E. coli bacteremia: 10/21 blood culture with E. coli, 10/21 urine culture with E. coli. Repeat blood culture from 10/23 with no growth. Patient came in with complaint of constitutional symptoms and hematuria through Osorio catheter. S/P cystoscopy with extraction of left ureteral stone and insertion of left ureteral stent on 10/07/[address] Thorpe. Patient had stent removal on 10/15/2023. --CT ABD:Mild left hydroureteronephrosis with delayed enhancement of the left kidney. No obvious obstructing ureteral calculus identified on this exam the findings are suggestive of a recently passed ureteral calculus. Was on cefepime, fluconazole and transitioned to ceftriaxone with ID recommendation, plan for 14 days of total IV Rocephin. Completed antibiotic therapy 11/05. Appreciate urology input: Currently no plan for urological intervention. Maintain Osorio catheter. PT OT recommends rehab. Case management to help with discharge planning Remains medically stable without any signs and or symptoms of infection GERD--continue PPI, Carafate Has been on famotidine, Protonix and Carafate complained of nausea and dyspepsia before try Maalox/Mylanta as needed No complaints of nausea today Constipation: continue with bowel regimen as needed Suspected L2 superior endplate compression deformity: Currently denies any back pain. Will consider further imaging if patient clinically complains of back pain . 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 Chronic anemia: Hemoglobin at baseline. Monitor as needed. Chronic A-fib/history of PE and DVT: Continue metoprolol and Eliquis T2DM: Last A1c of 6.1. Sliding scale insulin while in the hospital. HTN: Continue metoprolol HLD: Continue statin Asthma: No signs of exacerbation Endometrial cancer status post radiation, in remission per record. Chronic lymphedema: Monitor volume status Morbid obesity: Lifestyle modification encouraged. DVT prophylaxis: Eliquis CODE STATUS: Full code Disposition: Rehab when arranged, med surg until then Admission and Anticipated Discharge Date Admission Date: October 22, 2023 Subjective Patient was seen and examined at bedside. Patient was lying in bed, on room air, resting comfortably, not in any acute distress. Patient reports feeling better overall, requires a lot of assistance to help with moving. Denies any fever/chills/chest pain/shortness of breath/dizziness/headache. Reports chronic low back pain. Some right knee pain, will use voltaren gel. Physical Exam Physical Exam: GENERAL: Alert and oriented x3. NAD, on RA. obesity class III. HEENT: No pallor, no icterus. Pupils equal, round and reactive to light. Oral mucosa moist. NECK: No JVD, no neck masses. HEART: S1 and S2 heard. irregular rate and rhythm. No murmur, no gallop. RESPIRATORY SYSTEM: Normal AP diameter. No accessory muscle use. No wheezing, no crackles. Diminished lung sounds at bases. ABDOMEN: Soft, bowel sounds present, nontender, no distention. CENTRAL NERVOUS SYSTEM: No facial droop. Speech is clear. Obeys simple commands. Moves extremities. EXTREMITIES: Trace BLE edema, no erythema seen. Results & Data Results & Data Vital Signs (Past 12 Hours) Vital Signs Temp Pulse Resp BP Pulse Ox O2 Del Method 11/08/23 11:34 36.8 C 62 16 119/69 96 Room Air 11/08/23 09:44 65 120/68 11/08/23 07:37 36.9 C 64 16 94/55 L 95 Room Air
--- NOTE | 2023-11-09 14:21 | Hospitalist Progress Note ---
Date of Service November 09, 2023 Assessment & Plan (1) Sepsis: Plan: 78-year-old lady with PMH of A-fib on Eliquis, HTN, HLD, PE/DVT, bronchial asthma, T2DM, endometrial cancer status post radiation, recurrent UTI on chronic methenamine suppression treatment, hours incontinence, chronic indwelling Osorio catheter, urolithiasis, GERD, chronic anemia [baseline hemoglobin of 9], chronic lymphedema, osteoarthritis presented to the ED 10/22 with complaint of fever, chills, hematuria through Osorio catheter, poor appetite, temperature 100.4 at home. She is being managed for the following: Catheter associated UTI/complicated UTI Sepsis POA: WBC and pulse rate elevated at presentation. Likely secondary to above E. coli bacteremia: E. coli bacteremia: 10/21 blood culture with E. coli, 10/21 urine culture with E. coli. Repeat blood culture from 10/23 with no growth. Patient came in with complaint of constitutional symptoms and hematuria through Osorio catheter. S/P cystoscopy with extraction of left ureteral stone and insertion of left ureteral stent on 10/07/[address] Thorpe. Patient had stent removal on 10/15/2023. --CT ABD:Mild left hydroureteronephrosis with delayed enhancement of the left kidney. No obvious obstructing ureteral calculus identified on this exam the findings are suggestive of a recently passed ureteral calculus. Was on cefepime, fluconazole and transitioned to ceftriaxone with ID recommendation, plan for 14 days of total IV Rocephin. Completed antibiotic therapy 11/05. Appreciate urology input: Currently no plan for urological intervention. Maintain Osorio catheter. PT OT recommends rehab. Case management to help with discharge planning Remains medically stable without any signs and or symptoms of infection GERD--continue PPI, Carafate Has been on famotidine, Protonix and Carafate complained of nausea and dyspepsia before try Maalox/Mylanta as needed No complaints of nausea today Constipation: continue with bowel regimen as needed Suspected L2 superior endplate compression deformity: Currently denies any back pain. Will consider further imaging if patient clinically complains of back pain . Follow-up as outpatient w/ PCP office for watermaster monitoring. Chronic anemia: Hemoglobin at baseline. Monitor as needed. Chronic A-fib/history of PE and DVT: Continue metoprolol and Eliquis T2DM: Last A1c of 6.1. Sliding scale insulin while in the hospital. HTN: Continue metoprolol HLD: Continue statin Asthma: No signs of exacerbation Endometrial cancer status post radiation, in remission per record. Chronic lymphedema: Monitor volume status Morbid obesity: Lifestyle modification encouraged. DVT prophylaxis: Eliquis CODE STATUS: Full code Disposition: Rehab when arranged, med surg until then Admission and Anticipated Discharge Date Admission Date: October 22, 2023 Subjective Patient was seen and examined at bedside. Patient was lying in bed, on room air, resting comfortably, not in any acute distress. Patient reports feeling better overall, requires a lot of assistance to help with moving. Denies any fever/chills/chest pain/shortness of breath/dizziness/headache. Reports chronic low back pain. Reports improvement in her right knee pain with use of Voltaren gel. Physical Exam Physical Exam: GENERAL: Alert and oriented x3. NAD, on RA. obesity class III. HEENT: No pallor, no icterus. Pupils equal, round and reactive to light. Oral mucosa moist. NECK: No JVD, no neck masses. HEART: S1 and S2 heard. irregular rate and rhythm. No murmur, no gallop. RESPIRATORY SYSTEM: Normal AP diameter. No accessory muscle use. No wheezing, no crackles. Diminished lung sounds at bases. ABDOMEN: Soft, bowel sounds present, nontender, no distention. CENTRAL NERVOUS SYSTEM: No facial droop. Speech is clear. Obeys simple commands. Moves extremities. EXTREMITIES: Trace BLE edema, no erythema seen. Results & Data Results & Data Vital Signs (Past 12 Hours) Vital Signs Temp Pulse Resp BP Pulse Ox O2 Del Method 11/09/23 07:27 Room Air 11/09/23 07:24 37.0 C 71 14 111/69 98 Room Air
--- NOTE | 2023-11-10 15:12 | Hospitalist Progress Note ---
Date of Service November 10, 2023 Assessment & Plan (1) Sepsis: Plan: 78-year-old lady with PMH of A-fib on Eliquis, HTN, HLD, PE/DVT, bronchial asthma, T2DM, endometrial cancer status post radiation, recurrent UTI on chronic methenamine suppression treatment, hours incontinence, chronic indwelling Osorio catheter, urolithiasis, GERD, chronic anemia [baseline hemoglobin of 9], chronic lymphedema, osteoarthritis presented to the ED 10/22 with complaint of fever, chills, hematuria through Osorio catheter, poor appetite, temperature 100.4 at home. She is being managed for the following: Catheter associated UTI/complicated UTI Sepsis POA: WBC and pulse rate elevated at presentation. Likely secondary to above E. coli bacteremia: E. coli bacteremia: 10/21 blood culture with E. coli, 10/21 urine culture with E. coli. Repeat blood culture from 10/23 with no growth. Patient came in with complaint of constitutional symptoms and hematuria through Osorio catheter. S/P cystoscopy with extraction of left ureteral stone and insertion of left ureteral stent on 10/07/[address] Thorpe. Patient had stent removal on 10/15/2023. --CT ABD:Mild left hydroureteronephrosis with delayed enhancement of the left kidney. No obvious obstructing ureteral calculus identified on this exam the findings are suggestive of a recently passed ureteral calculus. Was on cefepime, fluconazole and transitioned to ceftriaxone with ID recommendation, plan for 14 days of total IV Rocephin. Completed antibiotic therapy 11/05. Appreciate urology input: Currently no plan for urological intervention. Maintain Osorio catheter. PT OT recommends rehab. Case management to help with discharge planning Remains medically stable without any signs and or symptoms of infection GERD--continue PPI, Carafate Has been on famotidine, Protonix and Carafate complained of nausea and dyspepsia before try Maalox/Mylanta as needed No complaints of nausea today Constipation: continue with bowel regimen as needed Suspected L2 superior endplate compression deformity: Currently denies any back pain. Will consider further imaging if patient clinically complains of back pain . 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 Chronic anemia: Hemoglobin at baseline. Monitor as needed. Chronic A-fib/history of PE and DVT: Continue metoprolol and Eliquis T2DM: Last A1c of 6.1. Sliding scale insulin while in the hospital. HTN: Continue metoprolol HLD: Continue statin Asthma: No signs of exacerbation Endometrial cancer status post radiation, in remission per record. Chronic lymphedema: Monitor volume status Morbid obesity: Lifestyle modification encouraged. DVT prophylaxis: Eliquis CODE STATUS: Full code Disposition: Rehab when arranged, med surg until then Admission and Anticipated Discharge Date Admission Date: October 22, 2023 Subjective Patient was seen and examined at bedside. Patient was lying in bed, on room air, resting comfortably, not in any acute distress. Patient reports feeling better overall, requires a lot of assistance to help with moving. Denies any fever/chills/chest pain/shortness of breath/dizziness/headache. Reports chronic low back pain. Reports improvement in her right knee pain with use of Voltaren gel. Physical Exam Physical Exam: GENERAL: Alert and oriented x3. NAD, on RA. obesity class III. HEENT: No pallor, no icterus. Pupils equal, round and reactive to light. Oral mucosa moist. NECK: No JVD, no neck masses. HEART: S1 and S2 heard. irregular rate and rhythm. No murmur, no gallop. RESPIRATORY SYSTEM: Normal AP diameter. No accessory muscle use. No wheezing, no crackles. Diminished lung sounds at bases. ABDOMEN: Soft, bowel sounds present, nontender, no distention. CENTRAL NERVOUS SYSTEM: No facial droop. Speech is clear. Obeys simple commands. Moves extremities. EXTREMITIES: Trace BLE edema, no erythema seen. Results & Data Results & Data Vital Signs (Past 12 Hours) Vital Signs Temp Pulse Resp BP Pulse Ox O2 Del Method 11/10/23 07:44 37.4 C 66 17 129/66 93 Room Air
--- NOTE | 2023-11-11 15:34 | Hospitalist Progress Note ---
Date of Service November 11, 2023 Assessment & Plan (1) Sepsis: Plan: 78-year-old lady with PMH of A-fib on Eliquis, HTN, HLD, PE/DVT, bronchial asthma, T2DM, endometrial cancer status post radiation, recurrent UTI on chronic methenamine suppression treatment, hours incontinence, chronic indwelling Osorio catheter, urolithiasis, GERD, chronic anemia [baseline hemoglobin of 9], chronic lymphedema, osteoarthritis presented to the ED 10/22 with complaint of fever, chills, hematuria through Osorio catheter, poor appetite, temperature 100.4 at home. She is being managed for the following: Catheter associated UTI/complicated UTI Sepsis POA: WBC and pulse rate elevated at presentation. Likely secondary to above E. coli bacteremia: E. coli bacteremia: 10/21 blood culture with E. coli, 10/21 urine culture with E. coli. Repeat blood culture from 10/23 with no growth. Patient came in with complaint of constitutional symptoms and hematuria through Osorio catheter. S/P cystoscopy with extraction of left ureteral stone and insertion of left ureteral stent on 10/07/[address] Thorpe. Patient had stent removal on 10/15/2023. --CT ABD:Mild left hydroureteronephrosis with delayed enhancement of the left kidney. No obvious obstructing ureteral calculus identified on this exam the findings are suggestive of a recently passed ureteral calculus. Was on cefepime, fluconazole and transitioned to ceftriaxone with ID recommendation, plan for 14 days of total IV Rocephin. Completed antibiotic therapy 11/05. Appreciate urology input: Currently no plan for urological intervention. Maintain Osorio catheter. PT OT recommends rehab. Case management to help with discharge planning Remains medically stable without any signs and or symptoms of infection GERD--continue PPI, Carafate Has been on famotidine, Protonix and Carafate complained of nausea and dyspepsia before try Maalox/Mylanta as needed No complaints of nausea today Constipation: continue with bowel regimen as needed Suspected L2 superior endplate compression deformity: Currently denies any back pain. Will consider further imaging if patient clinically complains of back pain . 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 Chronic anemia: Hemoglobin at baseline. Monitor as needed. Chronic A-fib/history of PE and DVT: Continue metoprolol and Eliquis T2DM: Last A1c of 6.1. Sliding scale insulin while in the hospital. HTN: Continue metoprolol HLD: Continue statin Asthma: No signs of exacerbation Endometrial cancer status post radiation, in remission per record. Chronic lymphedema: Monitor volume status Morbid obesity: Lifestyle modification encouraged. DVT prophylaxis: Eliquis CODE STATUS: Full code Disposition: Rehab when arranged, med surg until then Admission and Anticipated Discharge Date Admission Date: October 22, 2023 Subjective Patient was seen and examined at bedside. Patient was lying in bed, on room air, resting comfortably, not in any acute distress. Patient reports feeling better overall, requires a lot of assistance to help with moving. Denies any fever/chills/chest pain/shortness of breath/dizziness/headache. Patient does not want fingerstick glucose monitoring and insulin. Hence we will DC those orders. Physical Exam Physical Exam: GENERAL: Alert and oriented x3. NAD, on RA. obesity class III. HEENT: No pallor, no icterus. Pupils equal, round and reactive to light. Oral mucosa moist. NECK: No JVD, no neck masses. HEART: S1 and S2 heard. irregular rate and rhythm. No murmur, no gallop. RESPIRATORY SYSTEM: Normal AP diameter. No accessory muscle use. No wheezing, no crackles. Diminished lung sounds at bases. ABDOMEN: Soft, bowel sounds present, nontender, no distention. CENTRAL NERVOUS SYSTEM: No facial droop. Speech is clear. Obeys simple commands. Moves extremities. EXTREMITIES: Trace BLE edema, no erythema seen. Results & Data Results & Data Vital Signs (Past 12 Hours) Vital Signs Temp Pulse Resp BP BP Pulse Ox O2 Del Method 11/11/23 13:46 36.8 C 74 18 102/50 L 97 Room Air 11/11/23 06:54 36.6 C 67 15 109/63 94 Room Air
--- NOTE | 2023-11-12 15:33 | Hospitalist Progress Note ---
Date of Service November 12, 2023 Assessment & Plan (1) Sepsis: Plan: 78-year-old lady with PMH of A-fib on Eliquis, HTN, HLD, PE/DVT, bronchial asthma, T2DM, endometrial cancer status post radiation, recurrent UTI on chronic methenamine suppression treatment, hours incontinence, chronic indwelling Osorio catheter, urolithiasis, GERD, chronic anemia [baseline hemoglobin of 9], chronic lymphedema, osteoarthritis presented to the ED 10/22 with complaint of fever, chi lls, hematuria through Osorio catheter, poor appetite, temperature 100.4 at home. She is being managed for the following: Catheter associated UTI/complicated UTI Sepsis POA: WBC and pulse rate elevated at presentation. Likely secondary to above E. coli bacteremia: E. coli bacteremia: 10/21 blood culture with E. coli, 10/21 urine culture with E. coli. Repeat blood culture from 10/23 with no growth. Patient came in with complaint of constitutional symptoms and hematuria through Osorio catheter. S/P cystoscopy with extraction of left ureteral stone and insertion of left ureteral stent on 10/07/[address] Thorpe. Patient had stent removal on 10/15/2023. --CT ABD:Mild left hydroureteronephrosis with delayed enhancement of the left kidney. No obvious obstructing ureteral calculus identified on this exam the findings are suggestive of a recently passed ureteral calculus. Was on cefepime, fluconazole and transitioned to ceftriaxone with ID recommendation, plan for 14 days of total IV Rocephin. Completed antibiotic therapy 11/05. Appreciate urology input: Currently no plan for urological intervention. Maintain Osorio catheter. PT OT recommends rehab. Case management to help with discharge planning Remains medically stable without any signs and or symptoms of infection GERD--continue PPI, Carafate Has been on famotidine, Protonix and Carafate complained of nausea and dyspepsia before try Maalox/Mylanta as needed No complaints of nausea today Constipation: continue with bowel regimen as needed Suspected L2 superior endplate compression deformity: Currently denies any back pain. Will consider further imaging if patient clinically complains of back pain . Follow-up as outpatient w/ PCP office for group home monitoring. Likely bronchitis: Patient with greenish-yellow sputum and cough today. Will send CXR. Started on azithromycin. EKG in a.m. for QTc monitoring. Follow. Chronic anemia: Hemoglobin at baseline. Monitor as needed. Chronic A-fib/history of PE and DVT: Continue metoprolol and Eliquis T2DM: Last A1c of 6.1. Sliding scale insulin while in the hospital. HTN: Continue metoprolol HLD: Continue statin Asthma: No signs of exacerbation Endometrial cancer status post radiation, in remission per record. Chronic lymphedema: Monitor volume status Morbid obesity: Lifestyle modification encouraged. DVT prophylaxis: Eliquis CODE STATUS: Full code Disposition: Rehab when arranged, med surg until then Admission and Anticipated Discharge Date Admission Date: October 22, 2023 Subjective Patient was seen and examined at bedside. Patient was lying in bed, on room air, resting comfortably, not in any acute distress. Patient reports feeling better overall, requires a lot of assistance to help with moving. Denies any fever/chills/chest pain/shortness of breath/dizziness/headache. Patient does report some cough with greenish-yellow sputum today, chest clear to auscultation. Will send CXR, will start her on azithromycin course. Follow clinically. EKG ordered for QTc monitoring for AM. Physical Exam Physical Exam: GENERAL: Alert and oriented x3. NAD, on RA. obesity class III. HEENT: No pallor, no icterus. Pupils equal, round and reactive to light. Oral mucosa moist. NECK: No JVD, no neck masses. HEART: S1 and S2 heard. irregular rate and rhythm. No murmur, no gallop. RESPIRATORY SYSTEM: Normal AP diameter. No accessory muscle use. No wheezing, no crackles. Diminished lung sounds at bases. ABDOMEN: Soft, bowel sounds present, nontender, no distention. CENTRAL NERVOUS SYSTEM: No facial droop. Speech is clear. Obeys simple commands. Moves extremities. EXTREMITIES: Trace BLE edema, no erythema seen. Results & Data Results & Data Vital Signs (Past 12 Hours) Vital Signs Temp Pulse Resp BP Pulse Ox O2 Del Method 11/12/23 11:45 36.4 C L 54 L 18 109/68 97 Room Air 11/12/23 07:53 37.0 C 61 20 114/64 95 Room Air
--- NOTE | 2023-11-12 16:20 | XRay Report ---
XR chest 1V portable CLINICAL HISTORY: new cough COMPARISON STUDY: Chest CT June 28, 2023. Chest radiograph October 21, 2023. FINDINGS: This exam is compromised given difficulty positioning. An old, healed proximal right alyssia l fracture is incidentally noted. There is moderate cardiomegaly without evidence for pulmonary edema . No consolidation is identified. IMPRESSION: 1. No change in appearance of the chest. Cardiomegaly without evidence for pulmonary edema. 2. No consolidation. ACT 112: Negative or not required by law. Electronically signed by: Anibal Amos M.D. 11/12/2023 4:18 PM
[2023-11-12] MEDS: AZITHROMYCIN 250 MG TAB PO SCH (17:03)
[2023-11-13 06:50] LABS: Hematocrit (blood only) 33.3 % (37.0-47.0); Hemoglobin 9.8 g/dl (12.0-16.0); Mean Corpuscular Hemoglobin 26.1 pg (25.0-34.0); Mean Corpuscular Hgb Conc 29.4 g/dL (32.0-36.0); Mean Corpuscular Volume 88.8 fL (80.0-100.0); Mean Platelet Volume 10.9 fL (9.4-12.4); Platelet Count 233 K/uL (130-400); RDW Coefficient of Variation 15.2 % (11.5-14.5); RDW Standard Deviation 49.4 fL (36.4-46.3); Red Blood Count 3.75 M/uL (4.20-5.40); White Blood Count 6.04 K/ul (4.8-10.8)
[2023-11-13 07:11] LABS: BUN Creatinine Ratio 34.6 (10-20); Calcium 8.6 mg/dl (8.6-10.3); Creatinine Clr Calc Pharmacy 107.3 ml/min; Est GFR (African American) 106.8 ml/min; Est GFR (Non-African American) 92.2 ml/min; Magnesium 1.9 mg/dl (1.7-2.4); Phosphorus 4.6 mg/dl (2.5-4.9); Potassium 4.3 mmol/L (3.5-5.1)
--- NOTE | 2023-11-13 08:54 | Electrocardiogram Report ---
Test Reason : Blood Pressure : / mmHG Vent. Rate : 066 BPM Atrial Rate : 241 BPM P-R Int : 000 ms QRS Dur : 086 ms QT Int : 428 ms P-R-T Axes : 000 032 035 degrees QTc Int : 448 ms Atrial fibrillation Low voltage QRS Diffuse Minor Nonspecific ST and T wave abnormality Abnormal ECG When compared with ECG of 03-NOV-2023 21:12, Minimal criteria for Anterior infarct are no longer Present Confirmed by Ramakrishna Wise ([id number] on 11/13/2023 8:53:47 AM Referred By: REFERRED SELF Confirmed By:Ramakrishna Wise
[2023-11-13] MEDS: POLYETHYLENE (MIRALAX) 17 GM PACK PO PRN (09:06)
--- NOTE | 2023-11-13 18:47 | Hospitalist Progress Note ---
Date of Service November 13, 2023 Assessment & Plan (1) Sepsis: Plan: 78-year-old lady with PMH of A-fib on Eliquis, HTN, HLD, PE/DVT, bronchial asthma, T2DM, endometrial cancer status post radiation, recurrent UTI on chronic methenamine suppression treatment, hours incontinence, chronic indwelling Osorio catheter, urolithiasis, GERD, chronic anemia [baseline hemoglobin of 9], chronic lymphedema, osteoarthritis presented to the ED 10/22 with complaint of fever, chi lls, hematuria through Osorio catheter, poor appetite, temperature 100.4 at home. She is being managed for the following: Catheter associated UTI/complicated UTI Sepsis POA: WBC and pulse rate elevated at presentation. Likely secondary to above E. coli bacteremia: E. coli bacteremia: 10/21 blood culture with E. coli, 10/21 urine culture with E. coli. Repeat blood culture from 10/23 with no growth. Patient came in with complaint of constitutional symptoms and hematuria through Osorio catheter. S/P cystoscopy with extraction of left ureteral stone and insertion of left ureteral stent on 10/07/[address] Thorpe. Patient had stent removal on 10/15/2023. --CT ABD:Mild left hydroureteronephrosis with delayed enhancement of the left kidney. No obvious obstructing ureteral calculus identified on this exam the findings are suggestive of a recently passed ureteral calculus. Was on cefepime, fluconazole and transitioned to ceftriaxone with ID recommendation, plan for 14 days of total IV Rocephin. Completed antibiotic therapy 11/05. Appreciate urology input: Currently no plan for urological intervention. Maintain Osorio catheter. PT OT recommends rehab. Case management to help with discharge planning Minimal cough without any shortness of breath and has been saturating normally on room air Remains medically stable and awaiting placement GERD--continue PPI, Carafate Has been on famotidine, Protonix and Carafate complained of nausea and dyspepsia before try Maalox/Mylanta as needed No complaints of nausea today Denies any more abdominal pain Constipation: continue with bowel regimen as needed Bowel has been moving regularly Suspected L2 superior endplate compression deformity: Currently denies any back pain. Will consider further imaging if patient clinically complains of back pain. Follow-up as outpatient w/ PCP office for director long term care monitoring. Likely bronchitis: Patient with greenish-yellow sputum and cough today. Will send CXR. Started on azithromycin. EKG in a.m. for QTc monitoring. Follow. Repeat chest x-ray did not show any CHF and/or pneumonia Has been getting antibiotic for acute bronchitis Chronic anemia: Hemoglobin at baseline. Monitor as needed. Chronic A-fib/history of PE and DVT: Continue metoprolol and Eliquis T2DM: Last A1c of 6.1. Sliding scale insulin while in the hospital. HTN: Continue metoprolol HLD: Continue statin Asthma: No signs of exacerbation Endometrial cancer status post radiation, in remission per record. Chronic lymphedema: Monitor volume status Morbid obesity: Lifestyle modification encouraged. DVT prophylaxis: Eliquis CODE STATUS: Full code Disposition: Rehab when arranged, med surg until then Admission and Anticipated Discharge Date Admission Date: October 22, 2023 Subjective 11/13/2023 The patient was seen and examined in medical floor She has been feeling much better and has minimal cough Repeat chest x-ray showed improvement of CHF Denies any other symptom Awaiting placement Review of Systems Review of Systems: All systems reviewed and are unremarkable except as noted below Physical Exam Physical Exam: Lying in bed without any acute distress, minimal cough but no shortness of breath Constitutional: well developed, well nourished and + obese; not ill appearing Eyes: PERRL, conjunctivae normal, anicteric sclerae ENMT: external ear and nose normal, oropharynx normal Neck: trachea midline, no thyromegaly Respiratory: no respiratory distress Auscultation: + diminished lung sounds; no crackles and no wheezes Cardiovascular: Rate/Rhythm: regular rate and regular rhythm; not tachycardic Heart Sounds: normal S1, normal S2 and + murmur (2/6 ESM over precordium) Extremities: + edema (Trace edema bilaterally) Gastrointestinal (Abdomen): Inspection/Auscultation: normal bowel sounds; abdomen not distended Percussion/Palpation: abdomen soft; abdomen nontender Musculoskeletal: No acute arthritis involving any of the joint Neurologic: normal touch/pain/proprioception; + does not move all extremities and no focal motor deficits Psychiatric: A+Ox3, euthymic affect Lymphatic: no cervical or axillary lymphadenopathy Results & Data Results & Data Vital Signs (Past 12 Hours) Vital Signs Temp Pulse Resp BP Pulse Ox O2 Del Method 11/13/23 15:14 36.8 C 72 16 113/53 L 93 Room Air 11/13/23 07:50 Room Air 11/13/23 07:31 36.7 C 64 16 117/66 96 Room Air Laboratory Results Short CBC 11/13/23 Range/Units 06:01 WBC 6.04 (4.8-10.8) K/ul Hgb 9.8 L (12.0-16.0) g/dl Hct 33.3 L (37.0-47.0) % Plt Count 233 (130-400) K/uL BMP 11/13/23 06:01 Sodium 141 Potassium 4.3 Chloride 105 Carbon Dioxide 31 BUN 18 Creatinine 0.52 L Glucose 96 Calcium 8.6 Medications Administered Current Inpatient Medications Acetaminophen (Acetaminophen 325 Mg Tab) 650 mg PO QID PRN PRN Reason: pain/fever Stop: 11/21/23 03:31 Last Admin: 11/09/23 14:14 Dose: 650 mg Al Hydrox/Mg Hydrox/Simethicone (Aluminum/Magnesium Susp 30 Ml Udc) 30 ml PO Q6H PRN PRN Reason: Dyspepsia Stop: 11/27/23 13:13 Apixaban (Apixaban 5 Mg Tablet) 5 mg PO [facility] Stop: 11/21/23 08:59 Last Admin: 11/13/23 09:05 Dose: 5 mg Atorvastatin Calcium (Atorvastatin 40 Mg Tab) 80 mg PO HS [facility] Stop: 11/21/23 20:59 Last Admin: 11/12/23 20:35 Dose: 80 mg Azithromycin (Azithromycin 250 Mg Tab) 500 mg PO Q24H ANA PAULA Stop: 11/16/23 15:31 Last Admin: 11/13/23 15:11 Dose: 500 mg Bisacodyl (Bisacodyl 10 Mg Supp) 10 mg AL DAILY PRN PRN Reason: Constipation Stop: 11/24/23 12:36 Dextrose (Dextrose 50% 50 Ml Syringe) 25 - 50 ml IV UD PRN; Protocol PRN Reason: Hypoglycemia Protocol Stop: 11/21/23 03:18 Diclofenac Sodium (Diclofenac Sod 1% Gel 100 Gm Tube) 2 gm EXT BID ANA PAULA; Protocol Stop: 11/30/23 20:59 Last Admin: 11/13/23 09:05 Dose: 2 gm Docusate Sodium (Docusate Sodium 100 Mg Cap) 100 mg PO HS ANA PAULA Stop: 11/21/23 20:59 Last Admin: 11/12/23 20:37 Dose: Not Given Escitalopram Oxalate (Escitalopram Oxalate 10 Mg Tab) 10 mg PO QAM ANA PAULA Stop: 11/21/23 08:59 Last Admin: 11/13/23 09:06 Dose: 10 mg Famotidine (Famotidine 20 Mg Tab) 20 mg PO BID ANA PAULA Stop: 11/21/23 08:59 Last Admin: 11/13/23 09:06 Dose: 20 mg Glucagon (Glucagon For Inj 1 Mg Vial) 1 mg SQ UD PRN; Protocol PRN Reason: Hypoglycemia Protocol Stop: 11/21/23 03:18 Glucose (Glucose 10 Tab/Tube) 4 - 8 tab PO UD PRN; Protocol PRN Reason: Hypoglycemia Treatment Stop: 11/21/23 03:18 Glucose (Glucose 40% Gel 15 Gm Tube) 15 - 30 gm PO UD PRN; Protocol PRN Reason: Hypoglycemia Protocol Stop: 11/21/23 03:18 Meclizine HCl (Meclizine Hcl 25 Mg Tab) 25 mg PO TID PRN PRN Reason: DIZZY Stop: 12/04/23 13:28 Last Admin: 11/05/23 09:02 Dose: 25 mg Metoprolol Succinate (Metoprolol Succ 50mg Ext Rel Tab) 50 mg PO AMHS [facility] Stop: 11/21/23 08:59 Last Admin: 11/13/23 09:05 Dose: 50 mg Miconazole Nitrate (Miconazole Nitrate Powder 85 Gm) 1 appln EXT PRN PRN PRN Reason: Affected Skin Folds Stop: 11/21/23 15:18 Last Admin: 10/25/23 13:03 Dose: 1 appln Mirtazapine (Mirtazapine Tab 15 Mg Tab) 15 mg PO HS [facility] Stop: 11/21/23 20:59 Last Admin: 11/12/23 20:40 Dose: 15 mg Miscellaneous (Carbohydrates For Hypoglycemia ) 15 - 30 gm PO UD PRN PRN Reason: Hypoglycemia Protocol Stop: 11/21/23 03:18 Nitroglycerin (Nitroglycerin Sl 0.4 Mg/Tab Tab) 0.4 mg SL Q5M PRN PRN Reason: Chest Pain Stop: 12/03/23 21:44 Pantoprazole Sodium (Pantoprazole 40 Mg Tab) 40 mg PO BID [facility] Stop: 11/21/23 08:59 Last Admin: 11/13/23 09:05 Dose: 40 mg Phenazopyridine HCl (Phenazopyridine Hcl 200 Mg Tab) 200 mg PO Q8 PRN PRN Reason: .BLADDER SPASMS Stop: 11/21/23 03:18 Polyethylene Glycol (Polyethylene (Miralax) 17 Gm Pack) 17 gm PO DAILY PRN PRN Reason: Constipation Stop: 11/23/23 10:33 Last Admin: 11/13/23 09:06 Dose: 17 gm Sennosides (Senna 8.6 Mg Tab) 8.6 mg PO HS [facility] Stop: 11/21/23 20:59 Last Admin: 11/12/23 20:35 Dose: 8.6 mg Sodium Chloride (Sodium Chloride 0.65% Na Soln 45 Ml ([place])) 1 sprays NA TID PRN PRN Reason: Nasal Congestion Stop: 11/29/23 12:50 Spironolactone (Spironolactone 25 Mg Tab) 25 mg PO QAM [facility] Stop: 11/23/23 08:59 Last Admin: 11/13/23 09:05 Dose: 25 mg Sucralfate (Sucralfate 1 Gm Tab) 1 gm PO ACHS ANA PAULA Stop: 11/21/23 07:29 Last Admin: 11/13/23 16:24 Dose: 1 gm Tramadol HCl (Tramadol Hcl 50 Mg Tablet) 25 - 50 mg PO Q4H PRN PRN Reason: Pain Stop: 11/21/23 05:22 Last Admin: 10/23/23 23:02 Dose: 50 mg
--- NOTE | 2023-11-14 16:32 | Hospitalist Progress Note ---
Date of Service November 14, 2023 Assessment & Plan (1) Sepsis: Plan: 78-year-old lady with PMH of A-fib on Eliquis, HTN, HLD, PE/DVT, bronchial asthma, T2DM, endometrial cancer status post radiation, recurrent UTI on chronic methenamine suppression treatment, hours incontinence, chronic indwelling Osorio catheter, urolithiasis, GERD, chronic anemia [baseline hemoglobin of 9], chronic lymphedema, osteoarthritis presented to the ED 10/22 with complaint of fever, chi lls, hematuria through Osorio catheter, poor appetite, temperature 100.4 at home. She is being managed for the following: Catheter associated UTI/complicated UTI Sepsis POA: WBC and pulse rate elevated at presentation. Likely secondary to above E. coli bacteremia: E. coli bacteremia: 10/21 blood culture with E. coli, 10/21 urine culture with E. coli. Repeat blood culture from 10/23 with no growth. Patient came in with complaint of constitutional symptoms and hematuria through Osorio catheter. S/P cystoscopy with extraction of left ureteral stone and insertion of left ureteral stent on 10/07/[address] Thorpe. Patient had stent removal on 10/15/2023. --CT ABD:Mild left hydroureteronephrosis with delayed enhancement of the left kidney. No obvious obstructing ureteral calculus identified on this exam the findings are suggestive of a recently passed ureteral calculus. Was on cefepime, fluconazole and transitioned to ceftriaxone with ID recommendation, plan for 14 days of total IV Rocephin. Completed antibiotic therapy 11/05. Appreciate urology input: Currently no plan for urological intervention. Maintain Osorio catheter. PT OT recommends rehab. Case management to help with discharge planning Minimal cough without any shortness of breath and has been saturating normally on room air Remains medically stable and awaiting placement Denies any respiratory, cardiac or abdominal symptoms No fever and or chills and white count remains stable No evidence of infection at this time and she is ready to be discharged GERD--continue PPI, Carafate Has been on famotidine, Protonix and Carafate complained of nausea and dyspepsia before try Maalox/Mylanta as needed No complaints of nausea today Denies any more abdominal pain Constipation: continue with bowel regimen as needed Bowel has been moving regularly Suspected L2 superior endplate compression deformity: Currently denies any back pain. Will consider further imaging if patient clinically complains of back pain. 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 Will need physical therapy-therapeutic case manager is working to find a place for her Likely bronchitis: Patient with greenish-yellow sputum and cough today. Will send CXR. Started on azithromycin. EKG in a.m. for QTc monitoring. Follow. Repeat chest x-ray did not show any CHF and/or pneumonia Has been getting antibiotic for acute bronchitis Chronic anemia: Hemoglobin at baseline. Monitor as needed. Chronic A-fib/history of PE and DVT: Continue metoprolol and Eliquis T2DM: Last A1c of 6.1. Sliding scale insulin while in the hospital. HTN: Continue metoprolol HLD: Continue statin Asthma: No signs of exacerbation Endometrial cancer status post radiation, in remission per record. Chronic lymphedema: Monitor volume status Morbid obesity: Lifestyle modification encouraged. DVT prophylaxis: Eliquis CODE STATUS: Full code Disposition: Rehab when arranged, med surg until then Admission and Anticipated Discharge Date Admission Date: October 22, 2023 Subjective 11/13/2023 The patient was seen and examined in medical floor She has been feeling much better and has minimal cough Repeat chest x-ray showed improvement of CHF Denies any other symptom Awaiting placement 11/14/2023 The patient was seen and examined in medical floor She has been feeling much better and denies any significant symptoms Awaiting placement and likely to be discharged on Wednesday Review of Systems Review of Systems: All systems reviewed and are unremarkable except as noted below Physical Exam Physical Exam: Lying in bed without any acute distress, minimal cough but no shortness of breath Constitutional: well developed, well nourished and + obese; not ill appearing Eyes: PERRL, conjunctivae normal, anicteric sclerae ENMT: external ear and nose normal, oropharynx normal Neck: trachea midline, no thyromegaly Respiratory: no respiratory distress Auscultation: + diminished lung sounds; no crackles and no wheezes Cardiovascular: Rate/Rhythm: regular rate and regular rhythm; not tachycardic Heart Sounds: normal S1, normal S2 and + murmur (2/6 ESM over precordium) Extremities: + edema (Trace edema bilaterally) Gastrointestinal (Abdomen): Inspection/Auscultation: normal bowel sounds; abdomen not distended Percussion/Palpation: abdomen soft; abdomen nontender Neurologic: normal touch/pain/proprioception; + does not move all extremities and no focal motor deficits Psychiatric: A+Ox3, euthymic affect Lymphatic: no cervical or axillary lymphadenopathy Results & Data Results & Data Vital Signs (Past 12 Hours) Vital Signs Temp Pulse Resp BP Pulse Ox O2 Del Method 11/14/23 14:13 37.1 C 62 16 129/72 95 Room Air 11/14/23 08:20 Room Air 11/14/23 07:31 36.6 C 61 16 126/72 97 Room Air Medications Administered Current Inpatient Medications Acetaminophen (Acetaminophen 325 Mg Tab) 650 mg PO QID PRN PRN Reason: pain/fever Stop: 11/21/23 03:31 Last Admin: 11/13/23 19:49 Dose: 650 mg Al Hydrox/Mg Hydrox/Simethicone (Aluminum/Magnesium Susp 30 Ml Udc) 30 ml PO Q6H PRN PRN Reason: Dyspepsia Stop: 11/27/23 13:13 Apixaban (Apixaban 5 Mg Tablet) 5 mg PO AMHS [facility] Stop: 11/21/23 08:59 Last Admin: 11/14/23 08:26 Dose: 5 mg Atorvastatin Calcium (Atorvastatin 40 Mg Tab) 80 mg PO HS ANA PAULA Stop: 11/21/23 20:59 Last Admin: 11/13/23 19:59 Dose: 80 mg Azithromycin (Azithromycin 250 Mg Tab) 500 mg PO Q24H ANA PAULA Stop: 11/16/23 15:31 Last Admin: 11/13/23 15:11 Dose: 500 mg Bisacodyl (Bisacodyl 10 Mg Supp) 10 mg UT DAILY PRN PRN Reason: Constipation Stop: 11/24/23 12:36 Dextrose (Dextrose 50% 50 Ml Syringe) 25 - 50 ml IV UD PRN; Protocol PRN Reason: Hypoglycemia Protocol Stop: 11/21/23 03:18 Diclofenac Sodium (Diclofenac Sod 1% Gel 100 Gm Tube) 2 gm EXT BID ANA PAULA; Protocol Stop: 11/30/23 20:59 Last Admin: 11/14/23 08:26 Dose: 2 gm Docusate Sodium (Docusate Sodium 100 Mg Cap) 100 mg PO HS ANA PAULA Stop: 11/21/23 20:59 Last Admin: 11/13/23 20:00 Dose: 100 mg Escitalopram Oxalate (Escitalopram Oxalate 10 Mg Tab) 10 mg PO QAM ANA PAULA Stop: 11/21/23 08:59 Last Admin: 11/14/23 08:26 Dose: 10 mg Famotidine (Famotidine 20 Mg Tab) 20 mg PO BID ANA PAULA Stop: 11/21/23 08:59 Last Admin: 11/14/23 08:26 Dose: 20 mg Glucagon (Glucagon For Inj 1 Mg Vial) 1 mg SQ UD PRN; Protocol PRN Reason: Hypoglycemia Protocol Stop: 11/21/23 03:18 Glucose (Glucose 10 Tab/Tube) 4 - 8 tab PO UD PRN; Protocol PRN Reason: Hypoglycemia Treatment Stop: 11/21/23 03:18 Glucose (Glucose 40% Gel 15 Gm Tube) 15 - 30 gm PO UD PRN; Protocol PRN Reason: Hypoglycemia Protocol Stop: 11/21/23 03:18 Meclizine HCl (Meclizine Hcl 25 Mg Tab) 25 mg PO TID PRN PRN Reason: DIZZY Stop: 12/04/23 13:28 Last Admin: 11/05/23 09:02 Dose: 25 mg Metoprolol Succinate (Metoprolol Succ 50mg Ext Rel Tab) 50 mg PO AMHS [facility] Stop: 11/21/23 08:59 Last Admin: 11/14/23 08:26 Dose: 50 mg Miconazole Nitrate (Miconazole Nitrate Powder 85 Gm) 1 appln EXT PRN PRN PRN Reason: Affected Skin Folds Stop: 11/21/23 15:18 Last Admin: 10/25/23 13:03 Dose: 1 appln Mirtazapine (Mirtazapine Tab 15 Mg Tab) 15 mg PO HS ANA PAULA Stop: 11/21/23 20:59 Last Admin: 11/13/23 20:00 Dose: 15 mg Miscellaneous (Carbohydrates For Hypoglycemia ) 15 - 30 gm PO UD PRN PRN Reason: Hypoglycemia Protocol Stop: 11/21/23 03:18 Nitroglycerin (Nitroglycerin Sl 0.4 Mg/Tab Tab) 0.4 mg SL Q5M PRN PRN Reason: Chest Pain Stop: 12/03/23 21:44 Pantoprazole Sodium (Pantoprazole 40 Mg Tab) 40 mg PO BID ANA PAULA Stop: 11/21/23 08:59 Last Admin: 11/14/23 08:26 Dose: 40 mg Phenazopyridine HCl (Phenazopyridine Hcl 200 Mg Tab) 200 mg PO Q8 PRN PRN Reason: .BLADDER SPASMS Stop: 11/21/23 03:18 Polyethylene Glycol (Polyethylene (Miralax) 17 Gm Pack) 17 gm PO DAILY PRN PRN Reason: Constipation Stop: 11/23/23 10:33 Last Admin: 11/13/23 09:06 Dose: 17 gm Sennosides (Senna 8.6 Mg Tab) 8.6 mg PO HS [facility] Stop: 11/21/23 20:59 Last Admin: 11/13/23 20:01 Dose: Not Given Sodium Chloride (Sodium Chloride 0.65% Na Soln 45 Ml ([place])) 1 sprays NA TID PRN PRN Reason: Nasal Congestion Stop: 11/29/23 12:50 Spironolactone (Spironolactone 25 Mg Tab) 25 mg PO QAM [facility] Stop: 11/23/23 08:59 Last Admin: 11/14/23 08:26 Dose: 25 mg Sucralfate (Sucralfate 1 Gm Tab) 1 gm PO ACHS [facility] Stop: 11/21/23 07:29 Last Admin: 11/14/23 11:57 Dose: 1 gm Tramadol HCl (Tramadol Hcl 50 Mg Tablet) 25 - 50 mg PO Q4H PRN PRN Reason: Pain Stop: 11/21/23 05:22 Last Admin: 11/13/23 19:48 Dose: 50 mg
--- NOTE | 2023-11-15 16:15 | Hospitalist Progress Note ---
Date of Service November 15, 2023 Assessment & Plan (1) Sepsis: Plan: 78-year-old lady with PMH of A-fib on Eliquis, HTN, HLD, PE/DVT, bronchial asthma, T2DM, endometrial cancer status post radiation, recurrent UTI on chronic methenamine suppression treatment, hours incontinence, chronic indwelling Osorio catheter, urolithiasis, GERD, chronic anemia [baseline hemoglobin of 9], chronic lymphedema, osteoarthritis presented to the ED 10/22 with complaint of fever, chi lls, hematuria through Osorio catheter, poor appetite, temperature 100.4 at home. She is being managed for the following: Catheter associated UTI/complicated UTI Sepsis POA: WBC and pulse rate elevated at presentation. Likely secondary to above E. coli bacteremia: E. coli bacteremia: 10/21 blood culture with E. coli, 10/21 urine culture with E. coli. Repeat blood culture from 10/23 with no growth. Patient came in with complaint of constitutional symptoms and hematuria through Osorio catheter. S/P cystoscopy with extraction of left ureteral stone and insertion of left ureteral stent on 10/07/[address] Thorpe. Patient had stent removal on 10/15/2023. --CT ABD:Mild left hydroureteronephrosis with delayed enhancement of the left kidney. No obvious obstructing ureteral calculus identified on this exam the findings are suggestive of a recently passed ureteral calculus. Was on cefepime, fluconazole and transitioned to ceftriaxone with ID recommendation, plan for 14 days of total IV Rocephin. Completed antibiotic therapy 11/05. Appreciate urology input: Currently no plan for urological intervention. Maintain Osorio catheter. PT OT recommends rehab. Case management to help with discharge planning Minimal cough without any shortness of breath and has been saturating normally on room air Remains medically stable and awaiting placement Denies any respiratory, cardiac or abdominal symptoms No fever and or chills and white count remains stable No evidence of infection at this time and she is ready to be discharged Likely discharge on Wednesday with inpatient physical therapy at the facility GERD--continue PPI, Carafate Has been on famotidine, Protonix and Carafate complained of nausea and dyspepsia before try Maalox/Mylanta as needed No complaints of nausea today Denies any more abdominal pain Remains asymptomatic Constipation: continue with bowel regimen as needed Bowel has been moving regularly Suspected L2 superior endplate compression deformity: Currently denies any back pain. Will consider further imaging if patient clinically complains of back pain. Follow-up as outpatient w/ PCP office for jail monitoring. Will need physical therapy-case investigator is working to find a place for her Likely bronchitis: Patient with greenish-yellow sputum and cough today. Will send CXR. Started on azithromycin. EKG in a.m. for QTc monitoring. Follow. Repeat chest x-ray did not show any CHF and/or pneumonia Has been getting antibiotic for acute bronchitis No cough and/or wheezing Chronic anemia: Hemoglobin at baseline. Monitor as needed. Chronic A-fib/history of PE and DVT: Continue metoprolol and Eliquis T2DM: Last A1c of 6.1. Sliding scale insulin while in the hospital. HTN: Continue metoprolol HLD: Continue statin Asthma: No signs of exacerbation Endometrial cancer status post radiation, in remission per record. Chronic lymphedema: Monitor volume status Morbid obesity: Lifestyle modification encouraged. DVT prophylaxis: Eliquis CODE STATUS: Full code Disposition: Rehab when arranged, med surg until then Admission and Anticipated Discharge Date Admission Date: October 22, 2023 Subjective 11/13/2023 The patient was seen and examined in medical floor She has been feeling much better and has minimal cough Repeat chest x-ray showed improvement of CHF Denies any other symptom Awaiting placement 11/14/2023 The patient was seen and examined in medical floor She has been feeling much better and denies any significant symptoms Awaiting placement and likely to be discharged on Wednesday11/15/2023 The patient was seen and examined in medical floor She has been stable, the cough is almost gone and no shortness of breath at rest No abdominal pain, nausea or vomiting Review of Systems Review of Systems: All systems reviewed and are unremarkable except as noted below Physical Exam Physical Exam: Lying in bed without any acute distress, minimal cough but no shortness of breath Constitutional: well developed, well nourished and + obese; not ill appearing Eyes: PERRL, conjunctivae normal, anicteric sclerae ENMT: external ear and nose normal, oropharynx normal Neck: trachea midline, no thyromegaly Respiratory: no respiratory distress Auscultation: + diminished lung sounds; no crackles and no wheezes Cardiovascular: Rate/Rhythm: regular rate and regular rhythm; not tachycardic Heart Sounds: normal S1, normal S2 and + murmur (2/6 ESM over precordium) Extremities: + edema (Trace edema bilaterally) Gastrointestinal (Abdomen): Inspection/Auscultation: normal bowel sounds; abdomen not distended Percussion/Palpation: abdomen soft; abdomen nontender Neurologic: normal touch/pain/proprioception; + does not move all extremities and no focal motor deficits Psychiatric: A+Ox3, euthymic affect Lymphatic: no cervical or axillary lymphadenopathy Results & Data Results & Data Vital Signs (Past 12 Hours) Vital Signs Temp Pulse Pulse Resp BP BP Pulse Ox 11/15/23 15:40 36.8 C 68 18 109/71 94 11/15/23 11:41 36.9 C 64 19 132/82 96 11/15/23 07:31 36.9 C 64 19 109/69 95 O2 Del Method 11/15/23 15:40 Room Air 11/15/23 11:41 Room Air 11/15/23 07:31 Room Air Medications Administered Current Inpatient Medications Acetaminophen (Acetaminophen 325 Mg Tab) 650 mg PO QID PRN PRN Reason: pain/fever Stop: 11/21/23 03:31 Last Admin: 11/13/23 19:49 Dose: 650 mg Al Hydrox/Mg Hydrox/Simethicone (Aluminum/Magnesium Susp 30 Ml Udc) 30 ml PO Q6H PRN PRN Reason: Dyspepsia Stop: 11/27/23 13:13 Apixaban (Apixaban 5 Mg Tablet) 5 mg PO [facility] Stop: 11/21/23 08:59 Last Admin: 11/15/23 08:47 Dose: 5 mg Atorvastatin Calcium (Atorvastatin 40 Mg Tab) 80 mg PO HS [facility]NA PAUL[facility] Stop: 11/21/23 20:59 Last Admin: 11/14/23 19:49 Dose: 80 mg Azithromycin (Azithromycin 250 Mg Tab) 500 mg PO Q24H [facility] Stop: 11/16/23 15:31 Last Admin: 11/14/23 17:35 Dose: 500 mg Bisacodyl (Bisacodyl 10 Mg Supp) 10 mg [place] DAILY PRN PRN Reason: Constipation Stop: 11/24/23 12:36 Dextrose (Dextrose 50% 50 Ml Syringe) 25 - 50 ml IV UD PRN; Protocol PRN Reason: Hypoglycemia Protocol Stop: 11/21/23 03:18 Diclofenac Sodium (Diclofenac Sod 1% Gel 100 Gm Tube) 2 gm EXT QID [facility]; Protocol Stop: 12/15/23 16:59 Docusate Sodium (Docusate Sodium 100 Mg Cap) 100 mg PO HS [facility] Stop: 11/21/23 20:59 Last Admin: 11/14/23 19:50 Dose: Not Given Escitalopram Oxalate (Escitalopram Oxalate 10 Mg Tab) 10 mg PO QAM [facility] Stop: 11/21/23 08:59 Last Admin: 11/15/23 08:49 Dose: 10 mg Famotidine (Famotidine 20 Mg Tab) 20 mg PO BID [facility] Stop: 11/21/23 08:59 Last Admin: 11/15/23 08:49 Dose: 20 mg Glucagon (Glucagon For Inj 1 Mg Vial) 1 mg SQ UD PRN; Protocol PRN Reason: Hypoglycemia Protocol Stop: 11/21/23 03:18 Glucose (Glucose 10 Tab/Tube) 4 - 8 tab PO UD PRN; Protocol PRN Reason: Hypoglycemia Treatment Stop: 11/21/23 03:18 Glucose (Glucose 40% Gel 15 Gm Tube) 15 - 30 gm PO UD PRN; Protocol PRN Reason: Hypoglycemia Protocol Stop: 11/21/23 03:18 Meclizine HCl (Meclizine Hcl 25 Mg Tab) 25 mg PO TID PRN PRN Reason: DIZZY Stop: 12/04/23 13:28 Last Admin: 11/05/23 09:02 Dose: 25 mg Metoprolol Succinate (Metoprolol Succ 50mg Ext Rel Tab) 50 mg PO AMHS [facility] Stop: 11/21/23 08:59 Last Admin: 11/15/23 08:49 Dose: 50 mg Miconazole Nitrate (Miconazole Nitrate Powder 85 Gm) 1 appln EXT PRN PRN PRN Reason: Affected Skin Folds Stop: 11/21/23 15:18 Last Admin: 10/25/23 13:03 Dose: 1 appln Mirtazapine (Mirtazapine Tab 15 Mg Tab) 15 mg PO HS [facility] Stop: 11/21/23 20:59 Last Admin: 11/14/23 19:50 Dose: 15 mg Miscellaneous (Carbohydrates For Hypoglycemia ) 15 - 30 gm PO UD PRN PRN Reason: Hypoglycemia Protocol Stop: 11/21/23 03:18 Nitroglycerin (Nitroglycerin Sl 0.4 Mg/Tab Tab) 0.4 mg SL Q5M PRN PRN Reason: Chest Pain Stop: 12/03/23 21:44 Pantoprazole Sodium (Pantoprazole 40 Mg Tab) 40 mg PO BID [facility] Stop: 11/21/23 08:59 Last Admin: 11/15/23 08:50 Dose: 40 mg Phenazopyridine HCl (Phenazopyridine Hcl 200 Mg Tab) 200 mg PO Q8 PRN PRN Reason: .BLADDER SPASMS Stop: 11/21/23 03:18 Polyethylene Glycol (Polyethylene (Miralax) 17 Gm Pack) 17 gm PO DAILY PRN PRN Reason: Constipation Stop: 11/23/23 10:33 Last Admin: 11/13/23 09:06 Dose: 17 gm Sennosides (Senna 8.6 Mg Tab) 8.6 mg PO HS [facility] Stop: 11/21/23 20:59 Last Admin: 11/14/23 19:50 Dose: 8.6 mg Sodium Chloride (Sodium Chloride 0.65% Na Soln 45 Ml ([place])) 1 sprays NA TID PRN PRN Reason: Nasal Congestion Stop: 11/29/23 12:50 Spironolactone (Spironolactone 25 Mg Tab) 25 mg PO QAM [facility] Stop: 11/23/23 08:59 Last Admin: 11/15/23 08:51 Dose: 25 mg Sucralfate (Sucralfate 1 Gm Tab) 1 gm PO ACHS [facility] Stop: 11/21/23 07:29 Last Admin: 11/15/23 12:01 Dose: 1 gm Tramadol HCl (Tramadol Hcl 50 Mg Tablet) 25 - 50 mg PO Q4H PRN PRN Reason: Pain Stop: 11/21/23 05:22 Last Admin: 11/15/23 03:35 Dose: 50 mg
[2023-11-15] MEDS: DICLOFENAC SOD 1% GEL 100 GM TUBE EXT SCH (17:06)
[2023-11-16 07:39] LABS: Basophils # (auto) 0.01 K/uL (0.00-0.20); Basophils % (auto) 0.1 %; Eosinophils # (auto) 0.28 K/uL (0.00-0.50); Eosinophils % (auto) 3.9 %; Hematocrit (blood only) 33.6 % (37.0-47.0); Hemoglobin 9.8 g/dl (12.0-16.0); Immature Granulocytes # (auto) 0.04 K/uL (0.01-0.20); Immature Granulocytes % (auto) 0.6 %; Lymphocytes # (auto) 2.76 K/uL (1.20-3.40); Lymphocytes % (auto) 38.5 %; Mean Corpuscular Hemoglobin 26.1 pg (25.0-34.0); Mean Corpuscular Hgb Conc 29.2 g/dL (32.0-36.0); Mean Corpuscular Volume 89.4 fL (80.0-100.0); Mean Platelet Volume 10.6 fL (9.4-12.4); Neutrophils # (auto) 3.57 K/uL (1.40-6.50); Neutrophils % (auto) 49.9 %; Platelet Count 224 K/uL (130-400); RDW Coefficient of Variation 15.1 % (11.5-14.5); RDW Standard Deviation 49.1 fL (36.4-46.3); Red Blood Count 3.76 M/uL (4.20-5.40); White Blood Count 7.16 K/ul (4.8-10.8)
[2023-11-16 08:03] LABS: BUN Creatinine Ratio 32.1 (10-20); Calcium 8.8 mg/dl (8.6-10.3); Creatinine Clr Calc Pharmacy 105.3 ml/min; Est GFR (African American) 106.1 ml/min; Est GFR (Non-African American) 91.6 ml/min; Potassium 4.2 mmol/L (3.5-5.1)
--- NOTE | 2023-11-16 12:26 | Hospitalist Progress Note ---
Date of Service November 16, 2023 Assessment & Plan (1) Sepsis: Plan: 78-year-old lady with PMH of A-fib on Eliquis, HTN, HLD, PE/DVT, bronchial asthma, T2DM, endometrial cancer status post radiation, recurrent UTI on chronic methenamine suppression treatment, hours incontinence, chronic indwelling Osorio catheter, urolithiasis, GERD, chronic anemia [baseline hemoglobin of 9], chronic lymphedema, osteoarthritis presented to the ED 10/22 with complaint of fever, chi lls, hematuria through Osorio catheter, poor appetite, temperature 100.4 at home. She is being managed for the following: Catheter associated UTI/complicated UTI Sepsis POA: WBC and pulse rate elevated at presentation. Likely secondary to above E. coli bacteremia: E. coli bacteremia: 10/21 blood culture with E. coli, 10/21 urine culture with E. coli. Repeat blood culture from 10/23 with no growth. Patient came in with complaint of constitutional symptoms and hematuria through Osorio catheter. S/P cystoscopy with extraction of left ureteral stone and insertion of left ureteral stent on 10/07/[address] Thorpe. Patient had stent removal on 10/15/2023. --CT ABD:Mild left hydroureteronephrosis with delayed enhancement of the left kidney. No obvious obstructing ureteral calculus identified on this exam the findings are suggestive of a recently passed ureteral calculus. Was on cefepime, fluconazole and transitioned to ceftriaxone with ID recommendation, plan for 14 days of total IV Rocephin. Completed antibiotic therapy 11/05. Appreciate urology input: Currently no plan for urological intervention. Maintain Osoiro catheter. PT OT recommends rehab. Case management to help with discharge planning Minimal cough without any shortness of breath and has been saturating normally on room air Remains medically stable and awaiting placement Denies any respiratory, cardiac or abdominal symptoms No fever and or chills and white count remains stable No evidence of infection at this time and she is ready to be discharged Likely discharge on Wednesday with inpatient physical therapy at the facility Will be going to [facility] tomorrow-medically remains stable as of 11/16/2023 GERD--continue PPI, Carafate Has been on famotidine, Protonix and Carafate complained of nausea and dyspepsia before try Maalox/Mylanta as needed No complaints of nausea today Denies any more abdominal pain Remains asymptomatic Constipation: continue with bowel regimen as needed Bowel has been moving regularly Suspected L2 superior endplate compression deformity: Currently denies any back pain. Will consider further imaging if patient clinically complains of back pain. Follow-up as outpatient w/ PCP office for correction monitoring. Will need physical therapy-shoe caser is working to find a place for her Likely bronchitis: Patient with greenish-yellow sputum and cough today. Will send CXR. Started on azithromycin. EKG in a.m. for QTc monitoring. Follow. Repeat chest x-ray did not show any CHF and/or pneumonia Has been getting antibiotic for acute bronchitis No cough and/or wheezing Cough is very minimal, no wheezing and no shortness of breath Chronic anemia: Hemoglobin at baseline. Monitor as needed. Hemoglobin remains stable at 9.8 as of 11/16/2023 Chronic A-fib/history of PE and DVT: Continue metoprolol and Eliquis T2DM: Last A1c of 6.1. Sliding scale insulin while in the hospital. HTN: Continue metoprolol HLD: Continue statin Asthma: No signs of exacerbation Endometrial cancer status post radiation, in remission per record. Chronic lymphedema: Monitor volume status Morbid obesity: Lifestyle modification encouraged. DVT prophylaxis: Eliquis CODE STATUS: Full code Disposition: Rehab when arranged, med surg until then Discussed with the son yesterday Admission and Anticipated Discharge Date Admission Date: October 22, 2023 Subjective 11/13/2023 The patient was seen and examined in medical floor She has been feeling much better and has minimal cough Repeat chest x-ray showed improvement of CHF Denies any other symptom Awaiting placement 11/14/2023 The patient was seen and examined in medical floor She has been feeling much better and denies any significant symptoms Awaiting placement and likely to be discharged on Wednesday11/15/2023 The patient was seen and examined in medical floor She has been stable, the cough is almost gone and no shortness of breath at rest No abdominal pain, nausea or vomiting 11/16/2023 The patient was seen and examined in medical floor She has been stable and has minimal cough but no shortness of breath No abdominal pain, nausea and or vomiting Review of Systems Review of Systems: All systems reviewed and are unremarkable except as noted below Physical Exam Physical Exam: Lying in bed without any acute distress, minimal cough but no shortness of breath Constitutional: well developed, well nourished and + obese; not ill appearing Eyes: PERRL, conjunctivae normal, anicteric sclerae ENMT: external ear and nose normal, oropharynx normal Neck: trachea midline, no thyromegaly Respiratory: no respiratory distress Auscultation: + diminished lung sounds; no crackles and no wheezes Cardiovascular: Rate/Rhythm: regular rate and regular rhythm; not tachycardic Heart Sounds: normal S1, normal S2 and + murmur (2/6 ESM over precordium) Extremities: + edema (Trace edema bilaterally) Gastrointestinal (Abdomen): Inspection/Auscultation: normal bowel sounds; abdomen not distended Percussion/Palpation: abdomen soft; abdomen nontender Neurologic: normal touch/pain/proprioception; + does not move all extremities and no focal motor deficits Psychiatric: A+Ox3, euthymic affect Lymphatic: no cervical or axillary lymphadenopathy Results & Data Results & Data Vital Signs (Past 12 Hours) Vital Signs Temp Pulse Resp BP Pulse Ox O2 Del Method 11/16/23 08:00 Room Air 11/16/23 07:53 36.8 C 54 L 18 110/57 L 96 Room Air Laboratory Results Short CBC 11/16/23 Range/Units 06:53 WBC 7.16 (4.8-10.8) K/ul Hgb 9.8 L (12.0-16.0) g/dl Hct 33.6 L (37.0-47.0) % Plt Count 224 (130-400) K/uL BMP 11/16/23 06:53 Sodium 141 Potassium 4.2 Chloride 105 Carbon Dioxide 32 BUN 17 Creatinine 0.53 L Glucose 92 Calcium 8.8 Medications Administered Current Inpatient Medications Acetaminophen (Acetaminophen 325 Mg Tab) 650 mg PO QID PRN PRN Reason: pain/fever Stop: 11/21/23 03:31 Last Admin: 11/13/23 19:49 Dose: 650 mg Al Hydrox/Mg Hydrox/Simethicone (Aluminum/Magnesium Susp 30 Ml Udc) 30 ml PO Q6H PRN PRN Reason: Dyspepsia Stop: 11/27/23 13:13 Apixaban (Apixaban 5 Mg Tablet) 5 mg PO [facility] Stop: 11/21/23 08:59 Last Admin: 11/16/23 08:25 Dose: 5 mg Atorvastatin Calcium (Atorvastatin 40 Mg Tab) 80 mg PO HS [facility] Stop: 11/21/23 20:59 Last Admin: 11/15/23 21:07 Dose: 80 mg Bisacodyl (Bisacodyl 10 Mg Supp) 10 mg [place] DAILY PRN PRN Reason: Constipation Stop: 11/24/23 12:36 Dextrose (Dextrose 50% 50 Ml Syringe) 25 - 50 ml IV UD PRN; Protocol PRN Reason: Hypoglycemia Protocol Stop: 11/21/23 03:18 Diclofenac Sodium (Diclofenac Sod 1% Gel 100 Gm Tube) 2 gm EXT QID [facility]; Protocol Stop: 12/15/23 16:59 Last Admin: 11/16/23 14:05 Dose: 2 gm Docusate Sodium (Docusate Sodium 100 Mg Cap) 100 mg PO [facility] Stop: 11/21/23 20:59 Last Admin: 11/15/23 21:08 Dose: Not Given Escitalopram Oxalate (Escitalopram Oxalate 10 Mg Tab) 10 mg PO QAM [facility] Stop: 11/21/23 08:59 Last Admin: 11/16/23 08:25 Dose: 10 mg Famotidine (Famotidine 20 Mg Tab) 20 mg PO BID [facility] Stop: 11/21/23 08:59 Last Admin: 11/16/23 08:26 Dose: 20 mg Glucagon (Glucagon For Inj 1 Mg Vial) 1 mg SQ UD PRN; Protocol PRN Reason: Hypoglycemia Protocol Stop: 11/21/23 03:18 Glucose (Glucose 10 Tab/Tube) 4 - 8 tab PO UD PRN; Protocol PRN Reason: Hypoglycemia Treatment Stop: 11/21/23 03:18 Glucose (Glucose 40% Gel 15 Gm Tube) 15 - 30 gm PO UD PRN; Protocol PRN Reason: Hypoglycemia Protocol Stop: 11/21/23 03:18 Meclizine HCl (Meclizine Hcl 25 Mg Tab) 25 mg PO TID PRN PRN Reason: DIZZY Stop: 12/04/23 13:28 Last Admin: 11/05/23 09:02 Dose: 25 mg Metoprolol Succinate (Metoprolol Succ 50mg Ext Rel Tab) 50 mg PO [facility] Stop: 11/21/23 08:59 Last Admin: 11/16/23 08:26 Dose: Not Given Miconazole Nitrate (Miconazole Nitrate Powder 85 Gm) 1 appln EXT PRN PRN PRN Reason: Affected Skin Folds Stop: 11/21/23 15:18 Last Admin: 10/25/23 13:03 Dose: 1 appln Mirtazapine (Mirtazapine Tab 15 Mg Tab) 15 mg PO HS [facility] Stop: 11/21/23 20:59 Last Admin: 11/15/23 21:10 Dose: 15 mg Miscellaneous (Carbohydrates For Hypoglycemia ) 15 - 30 gm PO UD PRN PRN Reason: Hypoglycemia Protocol Stop: 11/21/23 03:18 Nitroglycerin (Nitroglycerin Sl 0.4 Mg/Tab Tab) 0.4 mg SL Q5M PRN PRN Reason: Chest Pain Stop: 12/03/23 21:44 Pantoprazole Sodium (Pantoprazole 40 Mg Tab) 40 mg PO BID [facility] Stop: 11/21/23 08:59 Last Admin: 11/16/23 08:26 Dose: 40 mg Phenazopyridine HCl (Phenazopyridine Hcl 200 Mg Tab) 200 mg PO Q8 PRN PRN Reason: .BLADDER SPASMS Stop: 11/21/23 03:18 Polyethylene Glycol (Polyethylene (Miralax) 17 Gm Pack) 17 gm PO DAILY PRN PRN Reason: Constipation Stop: 11/23/23 10:33 Last Admin: 11/13/23 09:06 Dose: 17 gm Sennosides (Senna 8.6 Mg Tab) 8.6 mg PO HS [facility] Stop: 11/21/23 20:59 Last Admin: 11/15/23 21:10 Dose: 8.6 mg Sodium Chloride (Sodium Chloride 0.65% Na Soln 45 Ml ([place])) 1 sprays NA TID PRN PRN Reason: Nasal Congestion Stop: 11/29/23 12:50 Spironolactone (Spironolactone 25 Mg Tab) 25 mg PO QAM [facility] Stop: 11/23/23 08:59 Last Admin: 11/16/23 08:25 Dose: 25 mg Sucralfate (Sucralfate 1 Gm Tab) 1 gm PO ACHS [facility] Stop: 11/21/23 07:29 Last Admin: 11/16/23 11:30 Dose: 1 gm Tramadol HCl (Tramadol Hcl 50 Mg Tablet) 25 - 50 mg PO Q4H PRN PRN Reason: Pain Stop: 11/21/23 05:22 Last Admin: 11/15/23 03:35 Dose: 50 mg
--- NOTE | 2023-11-17 08:04 | Hospitalist Progress Note ---
Date of Service November 17, 2023 Assessment & Plan (1) Sepsis: Plan: 78-year-old lady with PMH of A-fib on Eliquis, HTN, HLD, PE/DVT, bronchial asthma, T2DM, endometrial cancer status post radiation, recurrent UTI on chronic methenamine suppression treatment, hours incontinence, chronic indwelling Osorio catheter, urolithiasis, GERD, chronic anemia [baseline hemoglobin of 9], chronic lymphedema, osteoarthritis presented to the ED 10/22 with complaint of fever, chi lls, hematuria through Osorio catheter, poor appetite, temperature 100.4 at home. She is being managed for the following: Catheter associated UTI/complicated UTI Sepsis POA: WBC and pulse rate elevated at presentation. Likely secondary to above E. coli bacteremia: E. coli bacteremia: 10/21 blood culture with E. coli, 10/21 urine culture with E. coli. Repeat blood culture from 10/23 with no growth. Patient came in with complaint of constitutional symptoms and hematuria through Osorio catheter. S/P cystoscopy with extraction of left ureteral stone and insertion of left ure teral stent on 10/07/[address] Thorpe. Patient had stent removal on 10/15/2023. --CT ABD:Mild left hydroureteronephrosis with delayed enhancement of the left kidney. No obvious obstructing ureteral calculus identified on this exam the findings are suggestive of a recently passed ureteral calculus. Was on cefepime, fluconazole and transitioned to ceftriaxone with ID recommenda tion, plan for 14 days of total IV Rocephin. Completed antibiotic therapy 11/05. Appreciate urology input: Currently no plan for urological intervention. Maintain Osorio catheter. Plan to discharge to rehab facility. Advised to follow-up with urology on discharge GERD--continue PPI, Carafate Has been on famotidine, Protonix and Carafate complained of nausea and dyspepsia before try Maalox/Mylanta as needed No complaints of nausea today Denies any more abdominal pain Remains asymptomatic Constipation: continue with bowel regimen as needed Bowel has been moving regularly Suspected L2 superior endplate compression deformity: Currently denies any back pain. Will consider further imaging if patient clinically complains of back pain. Follow-up as outpatient w/ PCP office for halfway monitoring. Continue PT/OT Acute Bronchitis:-POA --CXR:No change in appearance of the chest. Cardiomegaly without evidence for pulmonary edema. No consolidation. Completed Rocephin, azithromycin course Clinically improved Chronic anemia: Hemoglobin at baseline. Monitor as needed. Hemoglobin remains stable at 9.8 as of 11/16/2023 Chronic A-fib/history of PE and DVT: Continue metoprolol and Eliquis T2DM: Last A1c of 6.1. Sliding scale insulin while in the hospital. HTN: Continue metoprolol HLD: Continue statin Asthma: No signs of exacerbation Endometrial cancer status post radiation, in remission per record. Chronic lymphedema: Monitor volume status Morbid obesity: Lifestyle modification encouraged. BMI 42 DVT Px: Eliquis CODE STATUS: Full code Disposition: Rehab Admission and Anticipated Discharge Date Admission Date: October 22, 2023 Subjective Patient is seen and examined at bedside No new complaints Reports chronic intermittent cough, chronic abdominal discomfort unchanged Denies any chest pain, dyspnea, dizziness, nausea, vomiting Plan to be discharged to rehab facility today Review of Systems Review of Systems: All systems reviewed & are unremarkable except as noted in Subjective Physical Exam Physical Exam: Physical Exam: Vitals signs as noted above General Appearance:Obese, no apparent distress Head: normocephalic, Atraumatic Eyes: normal inspection, EOMI Neck: supple, Trachea midline Respiratory/Chest: Decreased breath sounds, CTA, No accessory muscle use Cardiovascular: Irregularly irregular, No murmur Abdomen/GI:Soft, non tender, Bowel sounds present Extremities/Musculoskeletal:normal inspection, +Trace edema Neurologic/Psych:AAOX3, grossly no focal neurological deficits Skin: normal color, warm Results & Data Results & Data Vital Signs (Past 12 Hours) Vital Signs Temp Pulse Resp BP Pulse Ox O2 Del Method 11/17/23 07:37 36.7 C 64 16 126/65 95 Room Air
--- NOTE | 2023-11-17 12:12 | Discharge Summary ---
Date of Service November 17, 2023 Admission HPI Per Admitting Provider History obtained from patient and records. Medical history significant for A-fib on Eliquis, valvular heart disease (mild AR/TR), hypertension, hyperlipidemia, history of PE DVT as per records, bronchial asthma, DM2 diet-controlled, endometrial cancer status post radiation, recurrent UTIs on chronic methenamine suppression Rx, urge incontinence, chronic indwelling Osorio catheter, urolithiasis GERD, chronic anemia (baseline hemoglobin of 9), chronic lymphedema, osteoarthritis. Last confinement June 2023 for left femoral fracture status post surgery. Patient also completed antibiotic Rx for Pseudomonas UTI. Patient discharged to [facility] for rehab where she stayed for 3 months. Patient subsequently discharged to [facility] 10 days ago. 2 weeks ago, patient underwent bilateral ureteroscopy for nephrolithiasis by [facility] urologist. Subsequent stent placement. Urine culture grew Pseudomonas and Gina glabrata. Subsequent stent removal and Osorio catheter exchange last week on urology follow-up. Outpatient ID consultation recommended given recurrent infections. Outpatient ciprofloxacin course prescribed. Patient unaware of prescription up until yesterday when she checked her email. Yesterday, patient noted fever chills. Denies unusual abdominal/flank pain. Usual hematuria through Osorio catheter. Poor appetite. Denies chest pain, SOB, cough symptoms. Temperature 100.4 at home. IV cefepime administered at the ER. MEDICAL HISTORY: As above. SURGICAL HISTORY: Bilateral tubal ligation, cholecystectomy, appendectomy, D&C, urologic procedures, femoral fracture surgery FAMILY HISTORY: Heart disease, COPD. PERSONAL SOCIAL HISTORY: Nonsmoker, no chronic intake of alcoholic beverages. 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 Admission Exam Per Admitting Provider GENERAL: uncomfortable, pleasant, morbidly obese, no respiratory distress SKIN: Pallor, warm HEENT: Bespectacled, pale palpebral conjunctivae, no ptosis, dry buccal mucosa NECK : Supple, short neck, no tenderness CHEST : Decreased breath sounds, no tenderness HEART : Irregular, no obvious murmurs ABDOMEN: distention, nontender EXTREMITIES : Bilateral LE swelling , no LE tenderness, no other conspicuous deformities noted NEUROLOGIC : Coherent, no facial asymmetry, gait and stance not assessed Principal Diagnosis Sepsis secondary to catheter associated UTI E. coli bacteremia Acute Bronchitis Chronic A-fib H/O DVT and PE Hypertension Acute Lumbar (L2) compression deformity Discharge Data Allergies Allergy/AdvReac Type Severity Reaction Status Date / Time doxycycline Allergy Intermediate SWELLING Verified 10/21/23 22:48 codeine Allergy Mild PER Verified 10/21/23 22:48 PATIENT "MADE HER MARY ANNE CRAZY" WHEN SHE TOOK ALOT Sulfa (Sulfonamide Allergy Mild Gastrointestinal Verified 10/21/23 22:48 Antibiotics) Upset tetracycline Allergy Mild SWELLING Verified 10/21/23 22:48 TO EYES NARINDER Inhibitors AdvReac Intermediate cough Verified 10/21/23 22:48 Consultations 10/22/23 01:21 ED Decision to Admit Stat 10/22/23 02:31 Consult Urology Routine 10/22/23 05:23 Consult Infectious Diseases Routine Procedures Performed Laboratory Results WBC 7.16 K/ul (4.8-10.8) 11/16/23 06:53 RBC 3.76 M/uL (4.20-5.40) L 11/16/23 06:53 Hgb 9.8 g/dl (12.0-16.0) L 11/16/23 06:53 Hct 33.6 % (37.0-47.0) L 11/16/23 06:53 MCV 89.4 fL (80.0-100.0) 11/16/23 06:53 MCH 26.1 pg (25.0-34.0) 11/16/23 06:53 MCHC 29.2 g/dL (32.0-36.0) L 11/16/23 06:53 RDW Std Deviation 49.1 fL (36.4-46.3) H 11/16/23 06:53 RDW Coeff of Rodolfo 15.1 % (11.5-14.5) H 11/16/23 06:53 Plt Count 224 K/uL (130-400) 11/16/23 06:53 MPV 10.6 fL (9.4-12.4) 11/16/23 06:53 Immature Gran % (Auto) 0.6 % 11/16/23 06:53 Neut % (Auto) 49.9 % 11/16/23 06:53 Lymph % (Auto) 38.5 % 11/16/23 06:53 [place] % (Auto) 7.0 % 11/16/23 06:53 Eos % (Auto) 3.9 % 11/16/23 06:53 Baso % (Auto) 0.1 % 11/16/23 06:53 Neut # (Auto) 3.57 K/uL (1.40-6.50) 11/16/23 06:53 Lymph # (Auto) 2.76 K/uL (1.20-3.40) 11/16/23 06:53 [place] # (Auto) 0.50 K/uL (0.11-0.59) 11/16/23 06:53 Eos # (Auto) 0.28 K/uL (0.00-0.50) 11/16/23 06:53 Baso # (Auto) 0.01 K/uL (0.00-0.20) 11/16/23 06:53 Immature Gran # (Auto) 0.04 K/uL (0.01-0.20) 11/16/23 06:53 APTT 26 Seconds (21-31) 11/03/23 20:41 PTT Ratio 0.9 11/03/23 20:41 Sodium 141 mmol/L (136-145) 11/16/23 06:53 Potassium 4.2 mmol/L (3.5-5.1) 11/16/23 06:53 Chloride 105 mmol/L (98-107) 11/16/23 06:53 Carbon Dioxide 32 mmol/L (21-32) 11/16/23 06:53 Anion Gap 4 (3-11) 11/16/23 06:53 BUN 17 mg/dl (6-23) 11/16/23 06:53 Creatinine 0.53 mg/dl (0.6-1.2) L 11/16/23 06:53 Est Cr Clr Drug Dosing 105.3 ml/min 11/16/23 06:53 Est GFR ( Amer) 106.1 ml/min 11/16/23 06:53 Est GFR (Non-Af Amer) 91.6 ml/min 11/16/23 06:53 BUN/Creatinine Ratio 32.1 (10-20) H 11/16/23 06:53 Glucose 92 mg/dl (70-99(Fasting)) 11/16/23 06:53 POC Glucose 92 mg/dl (70-99) 11/11/23 11:31 Lactate 1.0 mmol/L (0.4-2.0) 10/21/23 20:40 Calcium 8.8 mg/dl (8.6-10.3) 11/16/23 06:53 Phosphorus 4.6 mg/dl (2.5-4.9) 11/13/23 06:01 Magnesium 1.9 mg/dl (1.7-2.4) 11/13/23 06:01 Total Bilirubin 0.6 mg/dl (0.2-1.0) 10/21/23 20:23 Direct Bilirubin 0.1 mg/dl (0-0.2) 10/21/23 20:23 AST 9 U/L (13-39) L 10/21/23 20:23 ALT 6 U/L (7-52) L 10/21/23 20:23 Alkaline Phosphatase 123 U/L (34-104) H 10/21/23 20:23 Troponin I High Sens 2.9 pg/ml (0-14) 11/03/23 20:41 Total Protein 5.8 gm/dl (6.0-8.3) L 10/21/23 20:23 Albumin 2.9 gm/dl (3.4-5.0) L 10/21/23 20:23 Procalcitonin 0.16 ng/ml (0-0.5) 10/21/23 20:23 Urine Color Yellow 10/22/23 04:00 Urine Appearance Turbid (Clear) A 10/22/23 04:00 Urine pH 6.0 (4.5-7.5) 10/22/23 04:00 Ur Specific [place] 1.032 (1.000-1.030) H 10/22/23 04:00 Urine Protein 1+ (Negative) H 10/22/23 04:00 Urine Glucose (UA) Negative (Negative) 10/22/23 04:00 Urine Ketones Negative (Negative) 10/22/23 04:00 Urine Blood 3+ (Negative) H 10/22/23 04:00 Urine Nitrite Positive (Negative) A 10/22/23 04:00 Urine Bilirubin Negative (Negative) 10/22/23 04:00 Urine Urobilinogen Negative (Negative) 10/22/23 04:00 Ur Leukocyte Esterase 3+ (Negative) H 10/22/23 04:00 Urine WBC (Auto) >30 /hpf (0-5) H 10/22/23 04:00 Urine RBC (Auto) >30 /hpf (0-4) H 10/22/23 04:00 U Hyaline Cast (Auto) 1-5 /lpf (0-5) 10/22/23 04:00 U Epithel Cells (Auto) 20-30 /lpf (0-5) H 10/22/23 04:00 Urine Bacteria (Auto) Negative (Negative) 10/22/23 04:00 Urine Yeast Budding (None Prsent) A 10/22/23 04:00 Nasal Screen MRSA (PCR) Positive (Negative) A 10/22/23 Unknown Adenovirus (PCR) Not Detected (NotDetected) 10/21/23 22:44 B. pertussis DNA (PCR) Not Detected (NotDetected) 10/21/23 22:44 B.parapertussis DNA PCR Not Detected (NotDetected) 10/21/23 22:44 C. pneumoniae DNA (PCR) Not Detected (NotDetected) 10/21/23 22:44 Coronavirus OC43 (PCR) Not Detected (NotDetected) 10/21/23 22:44 Coronavirus HKU1 (PCR) Not Detected (NotDetected) 10/21/23 22:44 Coronavirus 229E (PCR) Not Detected (NotDetected) 10/21/23 22:44 SARS-CoV-2 (PCR) Not Detected (NotDetected) 10/21/23 22:44 Coronavirus NL63 (PCR) Not Detected (NotDetected) 10/21/23 22:44 Enterobacterales (PCR) DETECTED (NotDetected) A 10/21/23 20:40 E. coli (PCR) DETECTED (NotDetected) A 10/21/23 20:40 Human Metapneumovir PCR Not Detected (NotDetected) 10/21/23 22:44 Influenza Type A (PCR) Not Detected (NotDetected) 10/21/23 22:44 Influenza Type B (PCR) Not Detected (NotDetected) 10/21/23 22:44 M. pneumoniae (PCR) Not Detected (NotDetected) 10/21/23 22:44 Parainfluenza 1 (PCR) Not Detected (NotDetected) 10/21/23 22:44 Parainfluenza 2 (PCR) Not Detected (NotDetected) 10/21/23 22:44 Parainfluenza 3 (PCR) Not Detected (NotDetected) 10/21/23 22:44 Parainfluenza 4 (PCR) Not Detected (NotDetected) 10/21/23 22:44 RSV (PCR) Not Detected (NotDetected) 10/21/23 22:44 Entero/Rhino (PCR) Not Detected (NotDetected) 10/21/23 22:44 mcr-1 Colistin Res Gene PCR Not Detected (NotDetected) 10/21/23 20:40 blaIMP Car res Gene PCR Not Detected (NotDetected) 10/21/23 20:40 KPC-Carbap Res Gene PCR Not Detected (NotDetected) 10/21/23 20:40 blaNDM Car Res Gene PCR Not Detected (NotDetected) 10/21/23 20:40 OXA-48 Carbapenem Resis Gene (PCR) Not Detected (NotDetected) 10/21/23 20:40 blaVIM Car Res Gene PCR Not Detected (NotDetected) 10/21/23 20:40 CTX-M Gene Resistance (PCR) Not Detected (NotDetected) 10/21/23 20:40 Bld Cult ID Panel PCR See PCR Comment (NotDetected) 10/21/23 20:40 Impressions Abdomen/Pelvis CT 10/21/23 22:26 Exam(s): CT ABDOMEN + PELVIS With Contrast IV Amt: 90 ml optiray 320 EXAM: CT Abdomen and Pelvis With Intravenous Contrast CLINICAL HISTORY: Reason for exam: hx stones/pyelo. TECHNIQUE: Axial computed tomography images of the abdomen and pelvis with intravenous contrast. Automated exposure control was utilized for the study. A dose lowering technique was utilized adhering to the principles of ALARA. CONTRAST: Patient received 90 ml optiray 320 of IV contrast COMPARISON: No relevant prior studies available. FINDINGS: Lung bases: Unremarkable. No mass. No consolidation. ABDOMEN: Liver: Unremarkable. No mass. Gallbladder and bile ducts: Unremarkable. No calcified stones. No ductal dilation. Pancreas: Unremarkable. No mass. No ductal dilation. Spleen: Unremarkable. No splenomegaly. Adrenals: Unremarkable. No mass. Kidneys and ureters: Mild left hydroureter ureter with subtle delayed enhancement suggesting obstructive uropathy. No ureteral renal or bladder calculi identified on this exam. left renal cyst. Measuring 3.0 cm. Stomach and bowel: Unremarkable. No obstruction. No mucosal thickening. PELVIS: Appendix: No findings to suggest acute appendicitis. Bladder: Osorio catheter within the urinary bladder. Reproductive: Unremarkable as visualized. ABDOMEN and PELVIS: Intraperitoneal space: Unremarkable. No free air. No significant fluid collection. Bones/joints: Postoperative changes ORIF left hip fracture. L2 superior endplate compression deformity likely acute nature. No dislocation. Soft tissues: Unremarkable. Vasculature: Unremarkable. No abdominal aortic aneurysm. Lymph nodes: Unremarkable. No enlarged lymph nodes. IMPRESSION: Acute L2 superior endplate compression deformity. Mild left hydroureteronephrosis with delayed enhancement of the left kidney. No obvious obstructing ureteral calculus identified on this exam the findings are suggestive of a recently passed ureteral calculus. Electronically signed by: Servando Em MD 10/22/23 00:55 AM Chest X-Ray 11/12/23 15:29 XR chest 1V portable CLINICAL HISTORY: new cough COMPARISON STUDY: Chest CT June 28, 2023. Chest radiograph October 21, 2023. FINDINGS: This exam is compromised given difficulty positioning. An old, healed proximal right humeral fracture is incidentally noted. There is moderate cardiomegaly without evidence for pulmonary edema. No consolidation is identified. IMPRESSION: 1. No change in appearance of the chest. Cardiomegaly without evidence for pulmonary edema. 2. No consolidation. ACT 112: Negative or not required by law. Electronically signed by: Anibal Amos M.D. 11/12/2023 4:18 PM Ordered Studies 10/21/23 22:26 CT abd pelvis IV con only Stat Hospital Course (1) Sepsis: 78-year-old lady with PMH of A-fib on Eliquis, HTN, HLD, PE/DVT, bronchial asthma, T2DM, endometrial cancer status post radiation, recurrent UTI on chronic methenamine suppression treatment, hours incontinence, chronic indwelling Osorio catheter, urolithiasis, GERD, chronic anemia [baseline hemoglobin of 9], chronic lymphedema, osteoarthritis presented to the ED 10/22 with complaint of fever, chills, hematuria through Osorio catheter, poor appetite, temperature 100.4 at home. She is being managed for the following: Catheter associated UTI/complicated UTI Sepsis POA: WBC and pulse rate elevated at presentation. Likely secondary to above E. coli bacteremia: E. coli bacteremia: 10/21 blood culture with E. coli, / urine culture with E. coli. Repeat blood culture from 10/23 with no growth. Patient came in with complaint of constitutional symptoms and hematuria through Osorio catheter. S/P cystoscopy with extraction of left ureteral stone and insertion of left ureteral stent on 10/07/[address] Thorpe. Patient had stent removal on 10/15/2023. --CT ABD:Mild left hydroureteronephrosis with delayed enhancement of the left kidney. No obvious obstructing ureteral calculus identified on this exam the findings are suggestive of a recently passed ureteral calculus. Was on cefepime, fluconazole and transitioned to ceftriaxone with ID recommendation, plan for 14 days of total IV Rocephin. Completed antibiotic therapy 11/05. Appreciate urology input: Currently no plan for urological intervention. Maintain Osorio catheter. Plan to discharge to rehab facility. Advised to follow-up with urology on discharge GERD--continue PPI, Carafate Has been on famotidine, Protonix and Carafate complained of nausea and dyspepsia before try Maalox/Mylanta as needed No complaints of nausea today Denies any more abdominal pain Remains asymptomatic Constipation: continue with bowel regimen as needed Bowel has been moving regularly Suspected L2 superior endplate compression deformity: Currently denies any back pain. Will consider further imaging if patient clinically complains of back pain. Follow-up as outpatient w/ PCP office for detention monitoring. Continue PT/OT Acute Bronchitis:-POA --CXR:No change in appearance of the chest. Cardiomegaly without evidence for pulmonary edema. No consolidation. Completed Rocephin, azithromycin course Clinically improved Chronic anemia: Hemoglobin at baseline. Monitor as needed. Hemoglobin remains stable at 9.8 as of 11/16/2023 Chronic A-fib/history of PE and DVT: Continue metoprolol and Eliquis T2DM: Last A1c of 6.1. Sliding scale insulin while in the hospital. HTN: Continue metoprolol HLD: Continue statin Asthma: No signs of exacerbation Endometrial cancer status post radiation, in remission per record. Chronic lymphedema: Monitor volume status Morbid obesity: Lifestyle modification encouraged. BMI 42 DVT Px: Eliquis CODE STATUS: Full code Disposition: Rehab Total Time Total Time Spent Total Time Spent (In Minutes): 56 minutes Discharge Plan Discharge Items Patient Disposition: Personal Alf Reason For Visit: SEPSIS Discharge Diagnosis: Sepsis secondary to catheter associated UTI E. coli bacteremia Acute Bronchitis Chronic A-fib H/O DVT and PE Hypertension Acute Lumbar (L2) compression deformity Condition on Discharge: Fair Activity: Resume your previous activity Activity Comment: Continue PT and OT Exercise/Sports: Gradually increase as tolerated Non-emergency contact: Primary Care Provider, Surgeon and Urologist Call non-emergency contact if: you have any medication questions and your symptoms worsen Follow-up/Referrals: Pavan Mckeon MD [Primary Care Provider] - (Date & Time 11/23/2023 2:00 PM Provider Danielle Angeles MD [facility] ) Diet: Carb Consistent or DM2 Addtl Attending Provider Instructions: Please take precautions to avoid falls Take your medications as advised Please make appointments with your healthcare providers Addtl Automatic I Threading Machine Feeder Provider Instructions: Follow-up with your primary care physician Dr. Mckeon in 1 week upon discharge from rehab facility Follow-up with your orthopedic surgeon for further evaluation of lumbar L2 vertebrae Follow-up with your Urologist as recommended Seek immediate medical attention if your symptoms reoccur or worsen Please take all medications as instructed on discharge list below. Please call if you have any questions or problems. You can reach a [facility] hospitalist on duty at [facility] 24 hours a day by calling [phone] Pending Studies at Discharge: No Stand-Alone Forms: My [facility] [employer], Smoking Cessation Skilled Items Patient informed of condition?: Yes DNR: No Discharge Level of Care: Skilled Communicable Disease: No Discharge Prognosis: Stable Lines: None Urinary Catheter: Yes Medications and DC Order Prescriptions: New Saline Mist 0.65 % Aerosol,Elizabeth 1 spray NA TID Qty: 10 0RF diclofenac sodium [Voltaren Arthritis Pain] 1 % Gel 2 g EXT QID Qty: 50 0RF Continued atorvastatin 80 mg tablet 80 mg PO HS metoprolol succinate 50 mg tablet extended release 24 hr 50 mg PO [facility] phenazopyridine 200 mg tablet 200 mg PO Q8 PRN (Reason: .BLADDER SPASMS) tramadol 50 mg tablet 50 - 100 mg PO Q6 PRN (Reason: Pain) acetaminophen [Tylenol Extra Strength] 500 mg Tablet 500 mg PO Q6H PRN (Reason: Fever Or Pain) spironolactone 25 mg tablet 25 mg PO QAM methenamine hippurate 1 gram tablet 1 g PO BID Hold Instructions: Until after completes ciprofloxacin course famotidine 20 mg tablet 20 mg PO AMPM meclizine 25 mg tablet 25 mg PO TID PRN (Reason: DIZZY) lansoprazole 30 mg capsule,delayed release(DR/EC) 30 mg PO BID cranberry 400 mg Capsule 800 mg PO DAILY Hold Instructions: Until after completes ciprofloxacin course nystatin [Nystop] 100,000 unit/gram powder 1 applic TOPICAL [facility] Rx Instructions: ABDOMINAL FOLDS Eliquis 5 mg tablet 5 mg PO [facility] Calcium Antacid Tab 2 - 4 tabs PO .Q1HR PRN (Reason: Heartburn) sennosides 8.6 mg Tablet 8.6 mg PO HS ipratropium-albuterol 0.5 mg-3 mg(2.5 mg base)/3 mL Solution For Nebulization 3 ml INHALATION Q6H PRN (Reason: sob) sucralfate [Carafate] 1 gram Tablet 1 g PO ACHS ondansetron HCl 4 mg Tablet 4 mg PO Q8H PRN (Reason: Nausea And Vomiting) docusate sodium [Colace] 100 mg Capsule 100 mg PO HS mirtazapine [Remeron] 15 mg Tablet 15 mg PO HS escitalopram oxalate [Lexapro] 10 mg Tablet 10 mg PO QAM Discontinued ciprofloxacin HCl [Cipro] 500 mg tablet 500 mg PO Q12H Qty: 14 0RF Rx Instructions: PER PT'S SON "DID NOT DESIGN INTERN FROM PHARMACY"; take twice daily on day before, day of and day after biopsy. cefadroxil 500 mg capsule 500 mg PO BID PRN (Reason: intraoperative pain) 10 Days Qty: 20 0RF Discharge Orders: Discharge Order (Routine); Ordered 11/17/23 Ordered By: Trevon Jo Admission Data Admit Date/Time: 10/22/23 02:29 Attending Provider: Trevon Jo Admit Provider: Oscar Cornelius Primary Care Provider: Pavan Mckeon Other Providers: [facility]; [facility]; Trevon Jo; Vincent Jacobs [place] [place]; Santos Easley; Oscar Cornelius; John Hernandez; Byron Lux; Luisito Gotti I.; Romaine Banda II; Pau Santiago; Miak Aguirre; Demetrio Connor; Ej Ramirez; Jose Alberto Callejas; Dorina Donald; Angelica Dyer
== END 2023-11-17 13:02 | disposition home or self-care (01) | DRG 698 ==
LOC: ED 19:29 → EDINP 10-22 02:29 → SUATTDRO 10-22 02:29 → 2N 10-22 03:19 → 2W 10-26 18:08 → 3N 11-05 23:54

== ENCOUNTER 2024-06-08 10:45 | Inpatient (IN) ==
--- NOTE | 2024-06-08 11:23 | Emergency Department Note ---
History of Present Illness General Chief complaint: Urinary Symptoms Stated complaint: AB PAIN, HEMATURIA Time Seen by Provider: 06/08/24 11:08 History of Present Illness Maximum Pain Intensity: 5 This is a 78-year-old female that presents to the emergency department via EMS with complaints of "left-sided abdominal pain, possible UTI". History obtained from patient and history also obtained from reviewing the EMS transfer report as well as obtained by RN. The patient notes that she began with some left-sided flank pain/pressure earlier today. This then radiated to the chest. Urine is noted to be foul-smelling. She feels warm she notes but no true fever. No vomiting. Patient does note history of left ureteral stent currently in place. Home Medications Medication Instructions Recorded Confirmed Type acetaminophen 500 mg tablet 500 mg PO Q6H PRN Fever Or Pain 06/28/23 06/08/24 History (Tylenol Extra Strength) apixaban 5 mg tablet (Eliquis) 5 mg PO AMHS 06/28/23 06/08/24 History atorvastatin 80 mg tablet 80 mg PO HS 06/28/23 06/08/24 History cranberry 400 mg capsule 500 mg PO QAM 06/28/23 06/08/24 History lansoprazole 30 mg capsule,delayed 30 mg PO BID 06/28/23 06/08/24 History release meclizine 25 mg tablet 25 mg PO TID PRN DIZZY 06/28/23 06/08/24 History methenamine hippurate 1 gram tablet 1 g PO BID 06/28/23 06/08/24 History metoprolol succinate 50 mg 50 mg PO AMHS 06/28/23 06/08/24 History tablet,extended release 24 hr nystatin 100,000 unit/gram topical 1 applic topical AMHS 06/28/23 06/08/24 History powder (Nystop) phenazopyridine 200 mg tablet 200 mg PO Q8 PRN .BLADDER SPASMS 06/28/23 06/08/24 History spironolactone 25 mg tablet 50 mg PO QAM 06/28/23 06/08/24 History tramadol 50 mg tablet 50 mg PO Q6 PRN Pain 06/28/23 06/08/24 History docusate sodium 100 mg capsule 100 mg PO HS 09/14/23 06/08/24 History (Colace) mirtazapine 15 mg tablet (Remeron) 15 mg PO HS 09/14/23 06/08/24 History ondansetron HCl 4 mg tablet 4 mg PO Q8H PRN Nausea And Vomiting 09/14/23 06/08/24 History sucralfate 1 gram tablet (Carafate) 1 g PO ACHS 09/14/23 06/08/24 History diclofenac sodium 1 % topical gel 2 g EXT QID #50 grams 11/16/23 06/08/24 Rx (Voltaren Arthritis Pain) nitrofurantoin 100 mg PO BID 10 days #20 caps 03/28/24 06/08/24 Rx monohydrate/macrocrystals 100 mg capsule (Macrobid) ferrous sulfate 325 mg (65 mg 325 mg PO Q OTHER DAY 04/03/24 06/08/24 History iron) tablet,delayed release fluticasone propionate 50 2 spray intranasal DAILY 04/03/24 06/08/24 History mcg/actuation nasal spray,suspension montelukast 10 mg tablet 10 mg PO QAM 04/03/24 06/08/24 History Allergies Allergy/AdvReac Type Severity Reaction Status Date / Time doxycycline Allergy Intermediate Swelling Verified 04/13/24 12:02 tetracycline Allergy Mild Eye Verified 04/13/24 12:02 swelling NARINDER Inhibitors AdvReac Intermediate Cough Verified 04/13/24 12:02 codeine AdvReac Mild Elliott Verified 04/13/24 12:02 "crazy" Sulfa (Sulfonamide AdvReac Mild Gastrointestinal Verified 04/13/24 12:02 Antibiotics) Upset Past Med/Surg History Problem List (Updated 06/08/24 @ 16:52 by Alex Ty PA-C) Acute left flank pain (Acute) Complicated urinary tract infection (Acute) Protein malnutrition Bilateral hydronephrosis Chronic indwelling Osorio catheter (Acute) Nephrolithiasis Urinary retention Calculus of left kidney Morbid obesity Diabetes mellitus, type II Atrial fibrillation (Acute) Encounter for pre-operative examination Deep vein thrombosis Hypertension Hyperlipidemia Asthma Osteoarthritis of knees, bilateral GERD (gastroesophageal reflux disease) (Acute) Chronic GERD Medical History History of anemia History of posterior vitreous detachment B/L History of asthma "Well controlled" Chronic indwelling Osorio catheter Hydronephrosis of left kidney Diabetes mellitus, type II Diet controlled Overactive bladder HTN (hypertension) GERD (gastroesophageal reflux disease) Hyperlipidemia Hx of vertigo Hx of cancer of uterus 2014- radiation Hx pulmonary embolism Remote hx years ago In setting of prolonged sitting/immobility during a previous hospitalization per records Urinary retention Osorio cath in place Atrial fibrillation Taking Eliquis History of home oxygen therapy Per previous charting, hx of 2L O2 NC Current intermediate record makes no note of oxygen supplementation prison resident Resides at [facility] Nontoxic thyroid nodule Hx: UTI (urinary tract infection) Recurrent Hx of sepsis Lipodermatosclerosis Chronic bronchitis 'Bronchial asthma' Acquired lymphedema "Stomach" Gets therapy/massage to manage > was complication after radiation treatment per previous PAT RN notation IBS (irritable bowel syndrome) Surgical History History of anesthesia reaction Awareness with D&C and colonoscopy History of open reduction and internal fixation (ORIF) procedure (06/2023) left femur fx Hx of cystoscopy Multiple History of cataract surgery (2020) R/L History of dilatation and curettage History of esophagogastroduodenoscopy (EGD) History of colonoscopy History of bilateral tubal ligation History of cholecystectomy Hx of hernia repair (12/2017) Ventral hernia with mesh History of tooth extraction History of cardiac cath (2010) No stents Family History Other No family history of adverse response to anesthesia Social History Smoking Status: Never smoker Preferred Language: Macedonian Communication Ability: Effective Communication Ability Comment: alert and oriented x3 - of sound mind to sign consent Visual Impairment: No Limitations Aircraft Time Clerk Required: No Beliefs That Will Affect Care: None Current Living Situation: Half-Way Current Living Situation Comment: [facility] Feels Safe at Home: Yes Assistive Devices: Other Review of Systems A total of 10 systems reviewed and were otherwise negative Physical Exam Vital Signs Vital Signs - 24 hr 06/08/24 10:54 Temperature 37 C Temperature Source Oral Pulse Rate 92 H Respiratory Rate 20 Respiratory Effort / Characteristics Spontaneous Respiratory Depth Normal Respiratory Pattern Regular Blood Pressure 173/91 H Blood Pressure Mean 118 Blood Pressure Position Lying Pulse Oximetry 94 Oxygen Delivery Method Room Air Sepsis Recent Fever Within 48 Hours No Sepsis New/Unexplained Change in Mental Status No Sepsis Action Taken by Nursing No Action Required VITAL SIGNS - Vital signs and nursing notes were reviewed. Stable and afebrile. GENERAL - 78-year-old female appearing her stated age who is in no acute distress. Communicates well with provider and answers questions appropriately. SKIN - Without rashes. No meningeal or petechial rash. HEAD - NC/AT. EYES - Sclera anicteric. NECK - No nuchal rigidity. LUNGS - CTA CARDIAC - RRR ABDOMEN - Abdominal contour normal without pulsations or visible masses. BS normoactive all four quadrants. No tenderness, palpable masses, hepatosplenomegaly, or ascites noted. EXTREMITIES - No clubbing or peripheral cyanosis. +5/5 strength noted in UE/LE bilaterally. NEUROLOGIC - Cranial nerves grossly intact. PSYCH - alert, oriented and pleasant on exam. pt is very pleasant and interacts well with examiner. Course Administered Medications Potassium Chloride/Sodium Chloride (Normal Saline W/20 Meq Kcl) 20 meq in 1,000 mls @ 75 mls/hr IV .[id number] ANA PAULA Stop: 06/09/24 15:54 Last Admin: 06/08/24 15:11 Dose: 75 mls/hr Documented By: Potassium Chloride (K Chacho / Wtr) 10 meq in 100 mls @ 100 mls/hr IV Q1H ANA PAULA Stop: 06/08/24 17:59 Last Admin: 06/08/24 15:36 Dose: 100 mls/hr Documented By: Discontinued Medications Ceftriaxone Sodium (Rocephin) 2,000 mg in 50 mls @ 100 mls/hr IV NOW STA Stop: 06/08/24 12:59 Last Infusion: 06/08/24 15:11 Dose: Infused Documented By: Admin: 06/08/24 12:51 Dose: 100 mls/hr Documented By: Sodium Chloride (Nss) 500 mls @ 500 mls/hr IV .Q1H ONE Stop: 06/08/24 13:29 Last Infusion: 06/08/24 15:11 Dose: Infused Documented By: Admin: 06/08/24 12:51 Dose: 500 mls/hr Documented By: Potassium Chloride (Potassium Chloride 20 Meq/15 Ml Udc) 40 meq PO NOW STA Stop: 06/08/24 13:15 Last Admin: 06/08/24 15:11 Dose: 40 meq Documented By: Medical Decision Making Laboratory Data 06/08/24 12:13 06/08/24 12:13 Lab Results 06/08/24 06/08/24 06/08/24 Range/Units 11:05 12:13 12:22 WBC 7.40 (4.8-10.8) K/ul RBC 4.27 (4.20-5.40) M/uL Hgb 11.6 L (12.0-16.0) g/dl Hct 37.1 (37.0-47.0) % MCV 86.9 (80.0-100.0) fL MCH 27.2 (25.0-34.0) pg MCHC 31.3 L (32.0-36.0) g/dL RDW Std Deviation 56.2 H (36.4-46.3) fL RDW Coeff of Rodolfo 17.5 H (11.5-14.5) % Plt Count 254 (130-400) K/uL MPV 9.7 (9.4-12.4) fL Immature Gran % (Auto) 1.4 % Neut % (Auto) 63.9 % Lymph % (Auto) 26.5 % Andrews % (Auto) 5.5 % Eos % (Auto) 2.2 % Baso % (Auto) 0.5 % Neut # (Auto) 4.73 (1.40-6.50) K/uL Lymph # (Auto) 1.96 (1.20-3.40) K/uL Andrews # (Auto) 0.41 (0.11-0.59) K/uL Eos # (Auto) 0.16 (0.00-0.50) K/uL Baso # (Auto) 0.04 (0.00-0.20) K/uL Immature Gran # (Auto) 0.10 (0.01-0.20) K/uL PT 12.3 H (9.0-12.0) Seconds INR 1.1 (0.9-1.1) APTT 30 (21-31) Seconds PTT Ratio 1.1 Sodium 143 (136-145) mmol/L Potassium 3.0 L (3.5-5.1) mmol/L Chloride 104 (98-107) mmol/L Carbon Dioxide 35 H (21-32) mmol/L Anion Gap 4 (3-11) BUN 6 (6-23) mg/dl Creatinine 0.35 L (0.6-1.2) mg/dl Est Cr Clr Drug Dosing 147.1 ml/min Est GFR ( Amer) 121.7 ml/min Est GFR (Non-Af Amer) 105.0 ml/min BUN/Creatinine Ratio 17.1 (10-20) Glucose 108 H (70-99(Fasting)) mg/dl Lactate 1.4 (0.4-2.0) mmol/L Calcium 8.8 (8.6-10.3) mg/dl Total Bilirubin 0.5 (0.2-1.0) mg/dl AST 7 L (13-39) U/L ALT 5 L (7-52) U/L Alkaline Phosphatase 89 (34-104) U/L Troponin I High Sens 2.5 (0-14) pg/ml Total Protein 5.7 L (6.0-8.3) gm/dl Albumin 2.6 L (3.4-5.0) gm/dl Globulin 3.1 (2.5-4.0) gm/dl Albumin/Globulin Ratio 0.8 L (0.9-2) Lipase 8 L (11-82) U/L Procalcitonin < 0.02 (0-0.5) ng/ml Urine Color Yellow Urine Appearance Turbid A (Clear) Urine pH 8.0 H (4.5-7.5) Ur Specific Acosta 1.007 (1.000-1.030) Urine Protein 2+ H (Negative) Urine Glucose (UA) Negative (Negative) Urine Ketones Negative (Negative) Urine Blood 3+ H (Negative) Urine Nitrite Negative (Negative) Urine Bilirubin Negative (Negative) Urine Urobilinogen Negative (Negative) Ur Leukocyte Esterase 3+ H (Negative) Urine WBC (Auto) >50 H (0-5) /hpf Urine RBC (Auto) >20 H (0-2) /hpf U Hyaline Cast (Auto) >20 H (0-2) /lpf U Epithel Cells (Auto) 6-10 H (0-2) /hpf Urine Bacteria (Auto) 4+ H (None Seen) Hyaline Casts Present A (None Presnt) /lpf Granular Casts Present A (None Prsent) /lpf SARS-CoV-2 (PCR) (Negative) Influenza Type A (PCR) (Neg) Influenza Type B (PCR) (Neg) RSV (RT-PCR) (Neg) 06/08/24 Range/Units 12:55 WBC (4.8-10.8) K/ul RBC (4.20-5.40) M/uL Hgb (12.0-16.0) g/dl Hct (37.0-47.0) % MCV (80.0-100.0) fL MCH (25.0-34.0) pg MCHC (32.0-36.0) g/dL RDW Std Deviation (36.4-46.3) fL RDW Coeff of Rodolfo (11.5-14.5) % Plt Count (130-400) K/uL MPV (9.4-12.4) fL Immature Gran % (Auto) % Neut % (Auto) % Lymph % (Auto) % Andrews % (Auto) % Eos % (Auto) % Baso % (Auto) % Neut # (Auto) (1.40-6.50) K/uL Lymph # (Auto) (1.20-3.40) K/uL Andrews # (Auto) (0.11-0.59) K/uL Eos # (Auto) (0.00-0.50) K/uL Baso # (Auto) (0.00-0.20) K/uL Immature Gran # (Auto) (0.01-0.20) K/uL PT (9.0-12.0) Seconds INR (0.9-1.1) APTT (21-31) Seconds PTT Ratio Sodium (136-145) mmol/L Potassium (3.5-5.1) mmol/L Chloride (98-107) mmol/L Carbon Dioxide (21-32) mmol/L Anion Gap (3-11) BUN (6-23) mg/dl Creatinine (0.6-1.2) mg/dl Est Cr Clr Drug Dosing ml/min Est GFR ( Amer) ml/min Est GFR (Non-Af Amer) ml/min BUN/Creatinine Ratio (10-20) Glucose (70-99(Fasting)) mg/dl Lactate (0.4-2.0) mmol/L Calcium (8.6-10.3) mg/dl Total Bilirubin (0.2-1.0) mg/dl AST (13-39) U/L ALT (7-52) U/L Alkaline Phosphatase (34-104) U/L Troponin I High Sens (0-14) pg/ml Total Protein (6.0-8.3) gm/dl Albumin (3.4-5.0) gm/dl Globulin (2.5-4.0) gm/dl Albumin/Globulin Ratio (0.9-2) Lipase (11-82) U/L Procalcitonin (0-0.5) ng/ml Urine Color Urine Appearance (Clear) Urine pH (4.5-7.5) Ur Specific Acosta (1.000-1.030) Urine Protein (Negative) Urine Glucose (UA) (Negative) Urine Ketones (Negative) Urine Blood (Negative) Urine Nitrite (Negative) Urine Bilirubin (Negative) Urine Urobilinogen (Negative) Ur Leukocyte Esterase (Negative) Urine WBC (Auto) (0-5) /hpf Urine RBC (Auto) (0-2) /hpf U Hyaline Cast (Auto) (0-2) /lpf U Epithel Cells (Auto) (0-2) /hpf Urine Bacteria (Auto) (None Seen) Hyaline Casts (None Presnt) /lpf Granular Casts (None Prsent) /lpf SARS-CoV-2 (PCR) NEGATIVE (Negative) Influenza Type A (PCR) Negative (Neg) Influenza Type B (PCR) Negative (Neg) RSV (RT-PCR) Negative (Neg) Imaging Data Radiologist's Impression: Abdomen/Pelvis CT 06/08/24 11:21 CT OF THE ABDOMEN AND PELVIS WITHOUT CONTRAST CLINICAL HISTORY: Left flank pain COMPARISON STUDY: CT of the abdomen and pelvis January 28, 2024. Renal ultrasound May 19, 2024. TECHNIQUE: Axial images of the abdomen and pelvis were obtained without IV contrast. Images were reviewed in the axial, sagittal, and coronal planes. Automated exposure control was utilized for the study. A dose lowering technique was utilized adhering to the principles of ALARA. FINDINGS: There is a trace left pleural effusion. No pneumatosis, free air or portal venous gas is present. A left ureteral stent is in place. Moderate left hydronephrosis is similar to CT of January 28, 2024. There is urothelial thickening with adjacent stranding. No ureteral calculi are present. There are small bladder calculi. Bilateral renal calculi are noted. These include large calculi within the upper pole of the right kidney. There is a 1.2 cm left renal calculus. Mild right hydronephrosis is similar to prior CT. Water attenuation left renal lesion favors a cyst. Prominent left periaortic lymph nodes measure up to 1.4 x 0.9 cm. These have slightly decreased in size since prior CT. A Osorio balloon within the bladder is present. Evaluation of the abdomen and pelvis is suboptimal on this unenhanced exam. Liver, spleen, left adrenal gland and pancreas are unremarkable. A low attenuation 2.4 cm right adrenal nodule is unchanged. This is benign. Colonic diverticulosis. Evidence for acute diverticulitis. Anasarca is noted. Presacral edema is present. The findings suggest volume overload. IMPRESSION: 1. Left ureteral stent in place. Moderate left hydronephrosis similar to CT of January 28, 2024. Urothelial thickening with adjacent stranding adjacent to the left collecting system may be related to the indwelling stent however an infectious process could appear similar. 2. Bilateral nephrolithiasis. No ureteral calculi. Small bladder calculi. 3. Mildly enlarged left periaortic lymph nodes which are likely reactive but should be assessed on follow-up exams. 4. No bowel obstruction. Colonic diverticulosis. No evidence for acute diverticulitis. 5. Anasarca. Trace left pleural effusion. ACT 112: Negative or not required by law. Electronically signed by: Anibal Amos M.D. 06/08/2024 12:25 PM Chest X-Ray 06/08/24 11:21 XR chest 1V portable CLINICAL HISTORY: L flank pain, chest pain COMPARISON STUDY: Chest CT June 28, 2023. Chest radiograph November 12, 2023. FINDINGS: There is no pneumothorax. Blunting of the left costophrenic angle is chronic. Cardiomegaly is unchanged. There is no consolidation to suggest pneumonia. Left basilar densities favor atelectasis. There is no evidence for pulmonary edema. Asymmetric right upper lung density is similar to prior exams. There is an old, healed proximal right humeral fracture. IMPRESSION: No acute cardiopulmonary findings. No significant change in appearance of the chest. ACT 112: Negative or not required by law. Electronically signed by: Anibal Amos M.D. 06/08/2024 11:41 AM MDM Narrative Patient was seen and evaluated as above in room B08. Review was performed of triage nursing notes and vital signs. After obtaining a thorough history and physical examination the above work up was performed. Patient presents today for assessment of left flank pain in the setting of indwelling Osorio catheter and history of left ureteral stent which is currently in place. Urine noted to be foul-smelling. Patient afebrile presently. IV access with established. Labs were drawn. There is no leukocytosis. Minor anemia noted with hemoglobin of 11.6. There is mild hypokalemia at 3.0. Troponin within normal range. Lactate normal. Procalcitonin normal. No evidence of kidney or liver failure. Urinalysis is concerning for infection. The COVID testing is negative. Previous urine culture and sensitivities were reviewed. IV ceftriaxone was ordered. A CT scan was performed of the abdomen/pelvis without contrast. There is possible ascending UTI on the left. Patient also will require follow-up for the incidentals. Chest x-ray negative for acute process. An EKG was also performed and this reveals A-fib with PVC at a rate of 90 bpm. QTc 401. QRS 86. Patient does require hospitalization at this time. Is a standing urinary tract infection. Case discussed with hospitalist service. Please refer to further documentation regarding her stay. GCS: 15 In the evaluation and treatment of this patient the following differential diagnoses were entertained: UTI, pyelonephritis, infected kidney stone, peritonitis, diverticulitis, intestinal perforation, among others Impression & Plan Complicated urinary tract infection, Acute left flank pain Discharge Plan Visit Data Chief Complaint: Urinary Symptoms Stated Complaint: AB PAIN, HEMATURIA ED Provider: Gerald Boykin ED Midlevel Provider: Alex Ty Discharge Problem: Complicated urinary tract infection, Acute left flank pain Patient Disposition: Admitted As Inpatient Condition: Good Discharge Instructions Interventions: ED Discharge Assessment Last Done: 06/08/24 16:39
--- NOTE | 2024-06-08 11:43 | XRay Report ---
XR chest 1V portable CLINICAL HISTORY: L flank pain, chest pain COMPARISON STUDY: Chest CT June 28, 2023. Chest radiograph November 12, 2023. FINDINGS: There is no pneumothorax. Blunting of the left costophrenic angle is chronic. Cardiomegaly is unchanged. There is no consolidation to suggest pneumonia. Left basilar densities favor atelectasi s. There is no evidence for pulmonary edema. Asymmetric right upper lung density is similar to prior exams. There is an old, healed proximal right humeral fracture. IMPRESSION: No acute cardiopulmonary findings. No significant change in appearance of the chest. ACT 112: Negative or not required by law. Electronically signed by: Anibal Amos M.D. 06/08/2024 11:41 AM
--- NOTE | 2024-06-08 12:26 | CT Scan Report ---
CT OF THE ABDOMEN AND PELVIS WITHOUT CONTRAST CLINICAL HISTORY: Left flank pain COMPARISON STUDY: CT of the abdomen and pelvis January 28, 2024. Renal ultrasound May 19, 2024. TECHNIQUE: Axial images of the abdomen and pelvis were obtained without IV contrast. Images were revi ewed in the axial, sagittal, and coronal planes. Automated exposure control was utilized for the kellie dy. A dose lowering technique was utilized adhering to the principles of ALARA. FINDINGS: There is a trace left pleural effusion. No pneumatosis, free air or portal venous gas is pr esent. A left ureteral stent is in place. Moderate left hydronephrosis is similar to CT of January 27. There is urothelial thickening with adjacent stranding. No ureteral calculi are present. There ar e small bladder calculi. Bilateral renal calculi are noted. These include large calculi within the up per pole of the right kidney. There is a 1.2 cm left renal calculus. Mild right hydronephrosis is sim ilar to prior CT. Water attenuation left renal lesion favors a cyst. Prominent left periaortic lymph nodes measure up to 1.4 x 0.9 cm. These have slightly decreased in size since prior CT. A Osorio ballo on within the bladder is present. Evaluation of the abdomen and pelvis is suboptimal on this unenhanc ed exam. Liver, spleen, left adrenal gland and pancreas are unremarkable. A low attenuation 2.4 cm ri ght adrenal nodule is unchanged. This is benign. Colonic diverticulosis. Evidence for acute diverticu litis. Anasarca is noted. Presacral edema is present. The findings suggest volume overload. IMPRESSION: 1. Left ureteral stent in place. Moderate left hydronephrosis similar to CT of January 28, 2024. Urotheli al thickening with adjacent stranding adjacent to the left collecting system may be related to the in dwelling stent however an infectious process could appear similar. 2. Bilateral nephrolithiasis. No ureteral calculi. Small bladder calculi. 3. Mildly enlarged left periaortic lymph nodes which are likely reactive but should be assessed on fo llow-up exams. 4. No bowel obstruction. Colonic diverticulosis. No evidence for acute diverticulitis. 5. Anasarca. Trace left pleural effusion. ACT 112: Negative or not required by law. Electronically signed by: Anibal Amos M.D. 06/08/2024 12:25 PM
[2024-06-08 12:48] LABS: Basophils # (auto) 0.04 K/uL (0.00-0.20); Basophils % (auto) 0.5 %; Eosinophils # (auto) 0.16 K/uL (0.00-0.50); Eosinophils % (auto) 2.2 %; Hematocrit (blood only) 37.1 % (37.0-47.0); Hemoglobin 11.6 g/dl (12.0-16.0); Immature Granulocytes % (auto) 1.4 %; Lymphocytes # (auto) 1.96 K/uL (1.20-3.40); Lymphocytes % (auto) 26.5 %; Mean Corpuscular Hemoglobin 27.2 pg (25.0-34.0); Mean Corpuscular Hgb Conc 31.3 g/dL (32.0-36.0); Mean Corpuscular Volume 86.9 fL (80.0-100.0); Mean Platelet Volume 9.7 fL (9.4-12.4); Monocytes # (auto) 0.41 K/uL (0.11-0.59); Monocytes % (auto) 5.5 %; Neutrophils # (auto) 4.73 K/uL (1.40-6.50); Neutrophils % (auto) 63.9 %; Platelet Count 254 K/uL (130-400); RDW Coefficient of Variation 17.5 % (11.5-14.5); RDW Standard Deviation 56.2 fL (36.4-46.3); Red Blood Count 4.27 M/uL (4.20-5.40)
--- NOTE | 2024-06-08 12:49 | History & Physical Report ---
Date of Service June 08, 2024 Assessment & Plan (1) Chronic indwelling Osorio catheter: (2) Calculus of left kidney: (3) Bilateral hydronephrosis: Plan: - Admit to med surg - Urine with foul smell, appears to be grossly infected on UA, follow urine culture -Urology consult -Started on IV cefepime -IV NSS +20 mEq potassium, K riders, p.o. potassium for level of 3.0 on admission -Osorio bag exchanged on 06/03/2024 continue every 4 weeks exchanges, consider addition of flush routinely per nursing facility -Continue Flomax, Macrobid, Pyridium as per outpatient meds -CT abdomen pelvis reviewed showing a left ureteral stent, left hydronephrosis, bilateral kidney stones -Encourage hydration -Pressure offloading for hx of sacral wounds, consider wound consultation -If any plans for ureteral stent exchange patient will need made n.p.o. at midnight (4) Diabetes mellitus, type II: Plan: -ISS with Accu-Cheks ACHS -Allow HH/DM diet (5) Atrial fibrillation: Plan: -Anticoagulated on Eliquis 5 twice daily, patient reports history of hematuria, bright red blood in urine last occurred several months ago. Will continue E liquis at this time, hold if any significant hematuria present -Rate control metoprolol succinate (6) Hypertension: Plan: -BP noted to be 170/90, monitor while on fluids, continue home hypertensive medications (7) Hyperlipidemia: Plan: -Atorvastatin 80 mg every morning (8) Deep vein thrombosis: Plan: -History of such, chronic, stable (9) Hypokalemia: Plan: - Replace with PO, IV with NSS and additional K riders (10) Protein malnutrition: Plan: - Albumin 2.7 on arrival, will add protein supplementation to meals (11) GERD (gastroesophageal reflux disease): Plan: -Continue famotidine, patient reports frequent history of heartburn/indigestion symptoms with taking multiple medications at the same time DVT ppx: teds, scds Lines: 1 PIV FEN/GI: HH/DM CODE: DNR/DNI Dispo: From home, likely to remain in the hospital x 1-2 days A total of 75 minutes were spent with greater than 50% of that time face to face with the patient, personally reviewing all current laboratories, imaging studies, past medication reconciliation, outpatient chart review, and discussion with specialists to collaborate care for the patient with attending. Please see attending documentation for corrections and/or additions. History of Present Illness Chief Complaint: Foul smelling urine Primary Care Provider: Pavan Mckeon MD This is a 78-year-old female with PMHx A-fib on Eliquis, HTN, HLD, history of PE/DVT, bronchial asthma, DM type II, GERD, chronic anemia, chronic lymphedema, osteoarthritis. She has hx of multiple recurrent UTIs, history of resistance and allergies to several antibiotics. Seen by urology previously as an outpatient. Patient has had an indwelling Osorio catheter placed since right hip fracture in June 2023 due to issues with weightbearing and incontinence. Patient had indwelling stent on the left placed for hydronephrosis. 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 In the past, she has minimal symptoms whenever she does develop a UTI. Antonio camacho noticed foul-smelling urine late last week, it is typically discolored. There was concern for developing/worsening infection. The patient herself notices that sometimes the urine is clear and then it can look like dark blood, like iodine. She thinks the last time it was dark and blood appearing was a few months ago. She state she feels warm and chilled in the past few days, but denies documented fever. Staff is emptying the catheter bag every shift per orders, it has also needed to be flushed recently. Pt admits to recent burning sensation and some lower abdominal pain. Multiple urological infections including E. coli, Pseudomonas, hafnia alvei-some of also included Gina glabrata complex. Most recent Osorio exchange was on 06/03/2024. Allergies Allergy/AdvReac Type Severity Reaction Status Date / Time doxycycline Allergy Intermediate Swelling Verified 04/13/24 12:02 tetracycline Allergy Mild Eye Verified 04/13/24 12:02 swelling NARINDER Inhibitors AdvReac Intermediate Cough Verified 04/13/24 12:02 codeine AdvReac Mild Alvo Verified 04/13/24 12:02 "crazy" Sulfa (Sulfonamide AdvReac Mild Gastrointestinal Verified 04/13/24 12:02 Antibiotics) Upset Home Medications Medication Instructions Recorded Confirmed Type acetaminophen 500 mg tablet 500 mg PO Q6H PRN Fever Or Pain 06/28/23 06/08/24 History (Tylenol Extra Strength) apixaban 5 mg tablet (Eliquis) 5 mg PO AMHS 06/28/23 06/08/24 History atorvastatin 80 mg tablet 80 mg PO HS 06/28/23 06/08/24 History cranberry 400 mg capsule 500 mg PO QAM 06/28/23 06/08/24 History lansoprazole 30 mg capsule,delayed 30 mg PO BID 06/28/23 06/08/24 History release meclizine 25 mg tablet 25 mg PO TID PRN DIZZY 06/28/23 06/08/24 History methenamine hippurate 1 gram tablet 1 g PO BID 06/28/23 06/08/24 History metoprolol succinate 50 mg 50 mg PO AMHS 06/28/23 06/08/24 History tablet,extended release 24 hr nystatin 100,000 unit/gram topical 1 applic topical AMHS 06/28/23 06/08/24 History powder (Nystop) phenazopyridine 200 mg tablet 200 mg PO Q8 PRN .BLADDER SPASMS 06/28/23 06/08/24 History spironolactone 25 mg tablet 50 mg PO QAM 06/28/23 06/08/24 History tramadol 50 mg tablet 50 mg PO Q6 PRN Pain 06/28/23 06/08/24 History docusate sodium 100 mg capsule 100 mg PO HS 09/14/23 06/08/24 History (Colace) mirtazapine 15 mg tablet (Remeron) 15 mg PO HS 09/14/23 06/08/24 History ondansetron HCl 4 mg tablet 4 mg PO Q8H PRN Nausea And Vomiting 09/14/23 06/08/24 History sucralfate 1 gram tablet (Carafate) 1 g PO ACHS 09/14/23 06/08/24 History diclofenac sodium 1 % topical gel 2 g EXT QID #50 grams 11/16/23 06/08/24 Rx (Voltaren Arthritis Pain) nitrofurantoin 100 mg PO BID 10 days #20 caps 03/28/24 06/08/24 Rx monohydrate/macrocrystals 100 mg capsule (Macrobid) ferrous sulfate 325 mg (65 mg 325 mg PO Q OTHER DAY 04/03/24 06/08/24 History iron) tablet,delayed release fluticasone propionate 50 2 spray intranasal DAILY 04/03/24 06/08/24 History mcg/actuation nasal spray,suspension montelukast 10 mg tablet 10 mg PO QAM 04/03/24 06/08/24 History Past Med/Surg History Problem List (Updated 06/08/24 @ 16:52 by Alex Ty PA-C) Acute left flank pain (Acute) Complicated urinary tract infection (Acute) Protein malnutrition Bilateral hydronephrosis Chronic indwelling Osorio catheter (Acute) Nephrolithiasis Urinary retention Calculus of left kidney Morbid obesity Diabetes mellitus, type II Atrial fibrillation (Acute) Encounter for pre-operative examination Deep vein thrombosis Hypertension Hyperlipidemia Asthma Osteoarthritis of knees, bilateral GERD (gastroesophageal reflux disease) (Acute) Chronic GERD Medical History History of anemia History of posterior vitreous detachment B/L History of asthma "Well controlled" Chronic indwelling Osorio catheter Hydronephrosis of left kidney Diabetes mellitus, type II Diet controlled Overactive bladder HTN (hypertension) GERD (gastroesophageal reflux disease) Hyperlipidemia Hx of vertigo Hx of cancer of uterus 2014- radiation Hx pulmonary embolism Remote hx years ago In setting of prolonged sitting/immobility during a previous hospitalization per records Urinary retention Osorio cath in place Atrial fibrillation Taking Eliquis History of home oxygen therapy Per previous charting, hx of 2L O2 NC Current [facility] record makes no note of oxygen supplementation group home resident Resides at [facility] Nontoxic thyroid nodule Hx: UTI (urinary tract infection) Recurrent Hx of sepsis Lipodermatosclerosis Chronic bronchitis 'Bronchial asthma' Acquired lymphedema "Stomach" Gets therapy/massage to manage > was complication after radiation treatment per previous PAT RN notation IBS (irritable bowel syndrome) Surgical History History of anesthesia reaction Awareness with D&C and colonoscopy History of open reduction and internal fixation (ORIF) procedure (06/2023) left femur fx Hx of cystoscopy Multiple History of cataract surgery (2020) R/L History of dilatation and curettage History of esophagogastroduodenoscopy (EGD) History of colonoscopy History of bilateral tubal ligation History of cholecystectomy Hx of hernia repair (12/2017) Ventral hernia with mesh History of tooth extraction History of cardiac cath (2010) No stents Family History Other No family history of adverse response to anesthesia Social History Smoking Status: Never smoker Second Hand Exposure: No; Do You Dip or Chew Tobacco: No; Tobacco Cessation Education Requested by Patient: No Hx Alcohol Use: No Hx Substance Use: No Preferred Language: Frisian Communication Ability: Effective Communication Ability Comment: alert and oriented x3 - of sound mind to sign consent Visual Impairment: No Limitations Card Player Required: No Beliefs That Will Affect Care: None Current Living Situation: Senior Care Current Living Situation Comment: [facility] Other Information That Helps Us Care for You: No Feels Safe at Home: Yes Safety Concerns: Feels Safe At This Time Assistive Devices: Glasses Review of Systems Review of Systems: Constitutional: No fever, +sweats and chills Eyes: No diplopia, no worsening or blurred vision ENT: normal hearing, no trouble swallowing Respiratory: No cough, sputum, dyspnea at rest or on exertion Cardiovascular: No chest pain, tightness or palpitations Abdomen: No pain, nausea, vomiting, diarrhea, occasional constipation Back: bed sores : as per HPI Musculoskeletal: No joint pain, calf pain, swelling Neurologic: No weakness, numbness/tingling, chronic balance problems and does not walk or pivot. Psychiatric: +anxiety and depression Skin: No rash or itch Physical Exam Physical Exam: Please refer to physician addendum. Results & Data Results & Data Vital Signs (Past 12 Hours) Vital Signs Temp Pulse Resp BP Pulse Ox O2 Del Method 06/08/24 10:54 37 C 92 H 20 173/91 H 94 Room Air Laboratory Results 06/08/24 06/08/24 12:22 12:13 WBC 7.40 RBC 4.27 Hgb 11.6 L Hct 37.1 MCV 86.9 MCH 27.2 MCHC 31.3 L RDW Std Deviation 56.2 H RDW Coeff of Rdoolfo 17.5 H Plt Count 254 MPV 9.7 Immature Gran % (Auto) 1.4 Neut % (Auto) 63.9 Lymph % (Auto) 26.5 [place] % (Auto) 5.5 Eos % (Auto) 2.2 Baso % (Auto) 0.5 Neut # (Auto) 4.73 Lymph # (Auto) 1.96 [place] # (Auto) 0.41 Eos # (Auto) 0.16 Baso # (Auto) 0.04 Immature Gran # (Auto) 0.10 Lactate 1.4 Diagnostic Findings Abdomen/Pelvis CT 06/08/24 11:21 CT OF THE ABDOMEN AND PELVIS WITHOUT CONTRAST CLINICAL HISTORY: Left flank pain COMPARISON STUDY: CT of the abdomen and pelvis January 28, 2024. Renal ultrasound May 19, 2024. TECHNIQUE: Axial images of the abdomen and pelvis were obtained without IV contrast. Images were reviewed in the axial, sagittal, and coronal planes. Automated exposure control was utilized for the study. A dose lowering technique was utilized adhering to the principles of ALARA. FINDINGS: There is a trace left pleural effusion. No pneumatosis, free air or portal venous gas is present. A left ureteral stent is in place. Moderate left hydronephrosis is similar to CT of January 28, 2024. There is urothelial thickening with adjacent stranding. No ureteral calculi are present. There are small bladder calculi. Bilateral renal calculi are noted. These include large calculi within the upper pole of the right kidney. There is a 1.2 cm left renal calculus. Mild right hydronephrosis is similar to prior CT. Water attenuation left renal lesion favors a cyst. Prominent left periaortic lymph nodes measure up to 1.4 x 0.9 cm. These have slightly decreased in size since prior CT. A Fole y balloon within the bladder is present. Evaluation of the abdomen and pelvis is suboptimal on this unenhanced exam. Liver, spleen, left adrenal gland and pancreas are unremarkable. A low attenuation 2.4 cm right adrenal nodule is unchanged. This is benign. Colonic diverticulosis. Evidence for acute diverticulitis. Anasarca is noted. Presacral edema is present. The findings suggest volume overload. IMPRESSION: 1. Left ureteral stent in place. Moderate left hydronephrosis similar to CT of January 28, 2024. Urothelial thickening with adjacent stranding adjacent to the left collecting system may be related to the indwelling stent however an infectious process could appear similar. 2. Bilateral nephrolithiasis. No ureteral calculi. Small bladder calculi. 3. Mildly enlarged left periaortic lymph nodes which are likely reactive but should be assessed on follow-up exams. 4. No bowel obstruction. Colonic diverticulosis. No evidence for acute diverticulitis. 5. Anasarca. Trace left pleural effusion. ACT 112: Negative or not required by law. Electronically signed by: Anibal Amos M.D. 06/08/2024 12:25 PM Chest X-Ray 06/08/24 11:21 XR chest 1V portable CLINICAL HISTORY: L flank pain, chest pain COMPARISON STUDY: Chest CT June 28, 2023. Chest radiograph November 12, 2023. FINDINGS: There is no pneumothorax. Blunting of the left costophrenic angle is chronic. Cardiomegaly is unchanged. There is no consolidation to suggest pneumonia. Left basilar densities favor atelectasis. There is no evidence for pulmonary edema. Asymmetric right upper lung density is similar to prior exams. There is an old, healed proximal right humeral fracture. IMPRESSION: No acute cardiopulmonary findings. No significant change in appearance of the chest. ACT 112: Negative or not required by law. Electronically signed by: Anibal Amos M.D. 06/08/2024 11:41 AM Code Status & VTE Plan Code Status DNR/DNI - discussed with pt at bedside Supervising Physician Co-Signing Physician Notes Patient is a 78-year-old female with history of A-fib on Eliquis, asthma, diabetes mellitus, recurrent UTIs, chronic indwelling Osorio catheter and other medical problems presents with history of foul-smelling, dark-colored urine with intermittent hematuria and abdominal pressure like sensation which has been ongoing for 1 week duration. Patient had catheter exchanged on Wednesday. Patient was concerned to have urinary tract infection and so came to ED for further evaluation. She also reports having some chills, dysuria. Please review HPI for complete details of presentation. I personally reviewed blood work and imaging studies. Noted hypokalemia. Normal lactate levels. Urinalysis suggestive of UTI. CT abdomen suggestive chronic obstructive uropathy with left hydronephrosis left ureteral stent and urothelial thickening with adjacent stranding of the left collecting system concerning for infectious process. Physical Exam: Vitals signs as noted above General Appearance:Moderately built and nourished, no apparent distress Head: normocephalic, Atraumatic Eyes: normal inspection, EOMI Neck: supple, Trachea midline Respiratory/Chest: Normal breath sounds, CTA, No accessory muscle use Cardiovascular: S1, S2, No murmur Abdomen/GI:Soft, Non tender, Bowel sounds present Extremities/Musculoskeletal:normal inspection, no edema Neurologic/Psych:AAOX3, grossly no focal neurological deficits Skin: normal color, warm Complicated urinary tract infection Obstructive uropathy Nephrolithiasis Hypokalemia Agree with starting IV cefepime, replete and correct as needed Urology consulted Pain control as needed Follow-up cultures and adjust antibiotics as needed I personally interviewed and examined at bedside. Patient's care is coordinated with Kenya Leon PA-C. I have reviewed the advanced practitioner's documentation, and I agree with plan of care. Please refer to the documentation above for details of patient's presentation and for discussion of other issues. I spent a total [id number] coordinating, documenting, and providing care for this patient excluding time spent in the performance of separately billed services. (5) Atrial fibrillation Atrial fibrillation type: unspecified Qualified Code(s): I48.91 - Unspecified atrial fibrillation
[2024-06-08] MEDS: cefTRIAXone SODIUM 2,000 MG/50 ML BAG IV STA (12:51)
[2024-06-08] MEDS: SODIUM CHLORIDE 0.9% 500 ML IV ONE (12:51)
[2024-06-08 12:57] LABS: Appearance Urine Turbid (Clear); Bacteria Urine Automated 4+ (None Seen); Bilirubin Urine Negative (Negative); Blood Urine 3+ (Negative); Cast Urine Automated >20 /lpf (0-2); Color Urine Yellow; Glucose Urine UA Negative (Negative); Granular Casts Urine Present /lpf (None Prsent); Hyaline Casts Urine Present /lpf (None Presnt); Ketones Urine Negative (Negative); Leukocyte Esterase Urine 3+ (Negative); Nitrite Urine Negative (Negative); Protein Urine 2+ (Negative); RBC Urine Automated >20 /hpf (0-2); Specific Gravity Urine 1.007 (1.000-1.030); Urobilinogen Urine Negative (Negative); WBC Urine Automated >50 /hpf (0-5)
[2024-06-08 13:05] LABS: Albumin Globulin Ratio 0.8 (0.9-2); Albumin Level 2.6 gm/dl (3.4-5.0); BUN Creatinine Ratio 17.1 (10-20); Bilirubin,Total 0.5 mg/dl (0.2-1.0); Calcium 8.8 mg/dl (8.6-10.3); Creatinine Clr Calc Pharmacy 147.1 ml/min; Est GFR (African American) 121.7 ml/min; Globulin 3.1 gm/dl (2.5-4.0); Total Protein 5.7 gm/dl (6.0-8.3)
[2024-06-08 13:09] LABS: Troponin I High Sensitivity 2.5 pg/ml (0-14)
[2024-06-08 13:13] LABS: INR 1.1 (0.9-1.1); Partial Thromboplastin Ratio 1.1; Partial Thromboplastin Time 30 Seconds (21-31); Prothrombin Time 12.3 Seconds (9.0-12.0)
[2024-06-08 14:28] LABS: Influenza A virus by PCR Negative (Neg); Influenza B virus by PCR Negative (Neg); RSV by PCR Negative (Neg); SARS CoV2 RNA(COVID-19) Ceph NEGATIVE (Negative)
[2024-06-08] MEDS: NSS + 20MEQ KCL 20 MEQ/1,000 ML BAG IV SCH (15:11)
[2024-06-08] MEDS: POTASSIUM CHLORIDE 20 MEQ/15 ML UDC PO STA (15:11)
[2024-06-08] MEDS: POTASSIUM CHLORIDE / WTR 10 MEQ/100 ML PLCT IV SCH (15:36)
[2024-06-08] MEDS ORDERED: GLUCOSE 40% GEL 15 GM TUBE PO PRN (16:43)
[2024-06-08] MEDS ORDERED: DEXTROSE 50% 50 ML SYRINGE IV PRN (16:43)
[2024-06-08] MEDS ORDERED: GLUCOSE 10 TAB/TUBE PO PRN (16:43)
[2024-06-08] MEDS ORDERED: SODIUM CHLORIDE 0.9% 250 ML IV PRN (16:43)
[2024-06-08] MEDS ORDERED: ONDANSETRON INJ 2 MG/ML 2 ML VIAL IV PRN (16:43)
[2024-06-08] MEDS ORDERED: CARBOHYDRATES FOR HYPOGLYCEMIA PO PRN (16:43)
[2024-06-08] MEDS ORDERED: GLUCAGON FOR INJ 1 MG VIAL SQ PRN (16:43)
[2024-06-08] MEDS: INSULIN ASPART PER UNIT CHARGE SC SCH (18:08)
[2024-06-08] MEDS: SUCRALFATE 1 GM TAB PO SCH (18:10)
[2024-06-08] MEDS: DICLOFENAC SOD 1% GEL 100 GM TUBE EXT SCH (18:10)
[2024-06-08] MEDS: CEFEPIME 2,000 MG in SYRINGE 0 ML IV SCH (18:15)
[2024-06-08 19:16] LABS: Magnesium 1.8 mg/dl (1.7-2.4)
[2024-06-08] MEDS: ATORVASTATIN 40 MG TAB PO SCH (20:30)
[2024-06-08] MEDS: MIRTAZAPINE TAB 15 MG TAB PO SCH (20:30)
[2024-06-08] MEDS: DOCUSATE SODIUM 100 MG CAP PO SCH (20:30)
[2024-06-08] MEDS: METOPROLOL SUCC 50MG EXT REL TAB PO SCH (20:30)
[2024-06-08 20:31] LABS: Hematocrit (blood only) 33.2 % (37.0-47.0); Hemoglobin 10.5 g/dl (12.0-16.0)
[2024-06-08] MEDS: NYSTATIN POWDER 15GM BTL EXT SCH (20:31)
[2024-06-08] MEDS: LANSOPRAZOLE 30 MG SOLTAB PO SCH (20:32)
[2024-06-08] MEDS: ACETAMINOPHEN 325 MG TAB PO PRN (20:53)
--- OUTSIDE RECORDS SUMMARY | 2024-06-09 03:19 | External Medical Summary | Summary of Care ---
Author Name Unknown Organization [facility] Address [address] [place] [address] Phone [phone] Care Team Providers Care [employer] Name Role Phone Danielle Angeles MD Primary Care Provider [phone] Reason for Visit * Reason Onset Date Comments Forms Request 06/08/2024 [facility] Encounter Details Date Type Department Care Team (Late st Contact Info) Description 06/08/2024 Telephone [facility] [address] [place] [address] Danielle Angeles MD [address] [place] [address] Forms Request ([facility]) Allergies Active Allergy Reactions Criticality Noted Date Comments Chas Inhibitors 11/01/2007 cough Doxycycline 02/18/1999 eyes swollen Sulfa Antibiotics 02/18/1999 wierd documented as of this encounter (statuses as of 06/08/2024) Medications Medication Sig Dispensed Refills Start Date End Date Status Meclizine HCl 25 MG Oral Tablet (Antivert) Take 1 Tablet by mouth 3 times a day as needed for Dizziness. 30 Tablet 1 01/20/2023 Active Ipratropium-Albuter ol 0.5-2.5 (3) MG/3ML Inhalation Solution (Duoneb) Inhale 3 mL via nebulizer every 6 hours as needed (SOB/wheezing). 07/08/2023 Active Phenazopyridine HCl 200 MG Oral Tablet (Pyridium) Take 1 Tablet by mouth 3 times a day as needed (bladder spasms). 07/08/2023 Active Ondansetron HCl 4 MG Oral Tablet Take 1 Tablet by mouth every 8 hours as needed for Nausea or Vomiting. 09/02/2023 Active Atorvastatin Calcium 80 MG Oral Tablet (Lipitor)Indication s:Dyslipidemia, goal LDL below 100 Take 1 Tablet by mouth in the morning. 30 Tablet 10/12/2023 Active Docusate Sodium 100 MG Oral Capsule (Colace)Indications :Slow transit constipation Take 2 Capsules by mouth every night at bedtime. 60 Capsule 10/12/2023 Active Escitalopram Oxalate 10 MG Oral Tablet (Lexapro)Indication s:Current moderate episode of major depressive disorder, unspecified whether recurrent (HCC) Take 1 Tablet by mouth in the morning. 30 Tablet 10/12/2023 Active Famotidine 20 MG Oral Tablet (Pepcid)Indications :Gastroesophageal reflux disease with esophagitis, unspecified whether hemorrhage Take 1 Tablet by mouth 2 times a day as needed for Heartburn. 60 Tablet 10/12/2023 Active Metoprolol Succinate ER 50 MG Oral Tablet Extended Release 24 Hour (toPROL XL)Indications:Paro xysmal atrial fibrillation (HCC),HTN, goal below 130/80 Take 1 Tablet by mouth in the morning and 1 Tablet before bedtime. 60 Tablet 10/12/2023 Active Spironolactone 50 MG Oral Tablet (Aldactone)Indicati ons:HTN, goal below 130/80 Take 1 Tablet by mouth in the morning. 30 Tablet 10/12/2023 Active Senna 8.6 MG Oral CapsuleIndications: Slow transit constipation Take 2 Capsules by mouth every night at bedtime. 60 Capsule 10/12/2023 Active Cranberry 400 MG Oral CapsuleIndications: Recurrent UTI Take 1 Capsule by mouth daily at noon. 30 Capsule 10/12/2023 Active Acetaminophen 500 MG Oral Tablet (Tylenol)Indication s:Compression fracture of lumbar vertebra with routine healing, unspecified lumbar vertebral level, subsequent encounter,Closed displaced oblique fracture of shaft of left femur with routine healing, subsequent encounter Take 2 Tablets by mouth in the morning and 2 Tablets before bedtime. 120 Tablet 10/12/2023 Active Diclofenac Sodium 1 % External Gel (Voltaren) Apply 2 g topically to affected area in the morning and 2 g at noon and 2 g in the evening and 2 g before bedtime. 11/16/2023 Active Montelukast Sodium 10 MG Oral Tablet (Singulair) Take 1 Tablet by mouth in the morning. 90 Tablet 3 11/23/2023 Active Sucralfate 1 GM Oral Tablet (Carafate)Indicatio ns:Gastroesophageal reflux disease with esophagitis, unspecified whether hemorrhage TAKE 1 TABLET BY MOUTH FOUR TIMES DAILY WITH MEALS AND AT BEDTIME FOR GERD 120 Tablet 10 12/31/2023 Active Lansoprazole 30 MG Oral Capsule Delayed Release (Prevacid)Indicatio ns:Gastroesophageal reflux disease with esophagitis, unspecified whether hemorrhage Take 1 capsule by mouth twice per day 60 Capsule 5 01/12/2024 Active Nystatin [id number] UNIT/GM External Cream Apply 1 Application topically to affected area in the morning and 1 Application before bedtime. To affacted area for two weeks.. 90 g 01/27/2024 Active traMADol HCl 50 MG Oral Tablet (Ultram)Indications :Compression fracture of lumbar vertebra with routine healing, unspecified lumbar vertebral level, subsequent encounter,Closed displaced oblique fracture of shaft of left femur with routine healing, subsequent encounter Take 1 Tablet by mouth every 8 hours as needed for Pain, Severe. 90 Tablet 01/27/2024 Active Methenamine Hippurate 1 GM Oral Tablet (Hiprex)Indications :Recurrent UTI TAKE 1 TABLET BY MOUTH TWICE DAILY FOR BLADDER 60 Tablet 5 02/04/2024 Active Eliquis 5 MG Oral Tablet (Apixaban)Indicatio ns:Paroxysmal atrial fibrillation (HCC) TAKE ONE TABLET BY MOUTH TWICE DAILY. *A-FIB* 60 Tablet 11 02/10/2024 Active Fluticasone Propionate 50 MCG/ACT Nasal Suspension (Flonase) Administer 2 Sprays into each nostril in the morning. 16 g 5 03/10/2024 Active Nitrofurantoin Monohyd Macro 100 MG Oral Capsule (Macrobid)Indicatio ns:Bacteriuria Take 1 Capsule by mouth in the morning and 1 Capsule before bedtime. 10 Capsule 04/13/2024 Active Mirtazapine 15 MG Oral Tablet (Remeron)Indication s:Current moderate episode of major depressive disorder, unspecified whether recurrent (HCC) TAKE 1 TABLET BY MOUTH AT BEDTIME *MOOD DISORDER* 28 Tablet 5 05/27/2024 Active documented as of this encounter (statuses as of 06/08/2024) Active Problems Problem Noted Date Diagnosed Date Other hydronephrosis 05/23/2024 Need for prophylactic vaccin ation and inoculation against influenza 05/23/2024 Prediabetes 01/27/2024 Closed compression fracture of L2 lumbar vertebra, initial encounter 11/23/2023 Absolute anemia 11/23/2023 Morbid obesity with BMI of 40.0-44.9, adult 11/11 Closed displaced oblique fra cture of shaft of femur with routine healing 07/08/2023 Recurrent UTI 07/08/[address] 07/08/2023 Current moderate episode of major depressive dis order 07/08/2023 Atrial fibrillation 09/29/2022 Urge incontinence 11/07/2019 Pannus, abdominal 10/25/2019 Extrinsic asthma without complication 12/14/2017 Overview: Triggered by smells per pt History of uterine cancer 07/20/2017 HTN, goal below 130/80 11/20/2014 Dyslipidemia 05/22/2013 History of DVT (deep vein thrombosis) 03/17/2011 Overview: 02/2011 - while admitted for PNA History of pulmonary embolism 03/17/2011 Overview: 02/2011 - while admitted for PNA GERD with esophagitis 03/21/2008 Venous insufficiency 05/19/2001 documented as of this encounter (statuses as of 06/08/2024) Resolved Problems Problem Noted Date Diagnosed Date Resolved Date Morbid obesity with body mas s index (BMI) of 60.0 to 69.9 in adult 02/01/2019 11/23/2023 Hypoxia 12/14/2017 12/27/2017 Overview: On oxygen Body [...] More Activities and Patient Files to view) Type 2 diabetes mellitus wit h hemoglobin A1c goal of less than 8.0% 10/20/2013 01/27/2024 Overview: ICD-10 update of inactive term HTN, goal below 130/80 05/22/201311/20 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 11/30/2017 Overview: benign Type 2 diabetes mellitus wit h hemoglobin A1c goal of less than 7.0% 04/30/2011 10/20/2013 Overview: ICD-10 update of inactive term correction current use of ant icoagulant therapy 03/17/2011 [...] as of this encounter (statuses as of 06/08/2024) Immunizations Name Administration Dates Next Due Pneumococcal Conjugate Vacc, 13 Valent (Prevnar) 08/20/2015 Pneumococcal Polysaccharide PPV23 (Pneumovax) 11/27/2011 Seasonal Influenza, PF, 6 M & above, IM , (FluLaval or Fluzone) 06/01/2020,06/16/2019,09/29/2018 Seasonal Influenza, Quadriva lent Hd (Fluzone Hd) 10/16/2022 Seasonal Influenza, Quadriva lent, No Preserve, IM 05/26/2017,07/14/2016,08/20/2015 Seasonal Influenza, Trivalen t, (IIV3), with Preserv, (Fluzone) 07/02/2014,06/05/2013,05/23/2012,06/11,06/11/2010,06/05/2009,07/04/2008 ,09/26/2007,07/15/2006 TDAP, Age 7 and older, IM (Adacel) 03/26/2011 Varicella Zoster Vaccine (Adult) 06/29/2012 documented as of this encounter Social History Tobacco Use Types Packs/Day Years Used Date Smoking Tobacco: Never Passive Smoke Exposure: Past Smokeless Tobacco: Never Comments:second hand smoke a [...] the money to buy more. Never true 01/13/20 24 Within the past 12 months, t he food you bought just didn't last and you didn't have money to get more. Never true 01/13/2024 Childcare Answer Date Recorded Do you feel overwhelmed with taking care of a child, family member or friend? No 01/13/2024 Does your family need help f inding childcare? (Household - for ages 0-17 years) Not on file 01/13/2024 Clothing Answer Date Recorded Have you been unable to get clothing when it was really needed? No 01/13/2024 Is your family able to get c lothes or diapers when needed? (Household - for ages 0-17 years) Not on file 01/13/2024 Personal Safety Answer Date Recorded Do you feel unsafe or have concerns for your saf ety? No 01/13/2024 Do you have concerns for you r family's safety? (Household - for ages 0-17 years) Not on file 01/13/2024 Utilities Answer Date Recorded Do you have trouble paying y our heating, water, or electric bill? No 01/13/2024 Is your family able to pay t he heat, water, or electric bill? (Household - for ages 0-17 years) Not on file 01/13/2024 Does your family have access to good internet? (Household - for ages 0-17 years) Not on file 01/13/2024 Employment Status Answer Date Recorded Are you unemployed or without regular income? No 01/13/2024 Does the household have a re gular source of income? (Household - for ages 0-17 years) Not on file 01/13/2024 Social Connections Answer Date Recorded How often do you feel lonely or isolated from th ose around you? Never 01/13/2024 Financial Resource Strain Answer Date R ecorded Do you have any trouble payi ng for your medications, or do you think you might in the future? No 01/13/2024 Does your family have troubl e paying for medicine? (Household - for ages 0-17 years) Not on file 01/13/2024 Transportation Needs Answer Date Record ed READ ONLY Do you have troubl e getting a ride to medical visits or work? Never True 01/13/2024 Does your family have a hard time getting a ride to doctors visits? (Household - for ages 0-17 years) Not on file 01/13/2024 Has lack of transportation k ept you from medical appointments, meetings, work, or from getting things needed for daily living? Check all that apply. (Adult - for ages 18 years and over) Not on file 01/13/2024 Do you (or your family) have trouble finding or paying for a ride (transportation)? (Household - for ages 0-17 years) Not on file 01/13/2024 Housing Stability Answer Date Recorded Do you currently live in a s helter or have no steady place to sleep at night? No 01/13/2024 READ ONLY Do you think you a re at risk of becoming homeless? No 01/13/2024 Does your family worry about paying for your home or becoming homeless? (Household - for ages 0-17 years) Not on file 0 01/13/2024 Are you homeless or worried that you might be in the future? (Adult - for ages 18 years and over) Not on file Are you (or your family) carlos alberto eless or worried that you might be in the future? (Household - for ages 0-17 years) Not on file Food Insecurity Answer Date Recorded Do you need food for this week? No 01/13/2024 Are you able to get enough f ood for your family? (Household - for ages 0-17 years) Not on file 01/13/2024 Does your family need food t his week? (Household - for ages 0-17 years) Not on file 01/13/2024 Do you always have enough fo od for your family? (Household - for ages 0-17 years) Not on file 01/13/2024 Sex and Gender Information Value Date Recorded [...] No 07/24/2014 documented as of this encounter Miscellaneous Notes * Telephone Encounter - Jessica Rodríguez LPN - 06/08/2024 10:22 AM EDT Received plan of care from [facility], signed by provider, and faxed back to [facility]. documented in this encounter Plan of Treatment Upcoming Encounters Date Type Department Care Team (Late st Contact Info) Description 09/28/2024 2:00 PM EST [facility] [address] [facility] [phone] Pavan Mckeon MD [address] [facility] [place] [address] Health Maintenance Due Date Last Done Comments DXA Scan 1945 Zoster Vaccines (2 of 3) 08/24/2012 06/29/2012 Depression Monitoring 02/19/2021 02/20/2020 DTap/Tdap Vaccines (2 - Td or Tdap) 03/26/2021 03/26/2011, 04/02/2000 Adult Wellness Visit 05/25/2023 05/25/2022 COVID-19 Vaccine ( season) 2024 09/01/2021, 03/05/2021, 02/11/2021, Additional history exists Influenza Vaccine (FLU shot) (#1) 2024 10/16/2022, 06/01/2020, 06/16/2019, Additional history exists GFR 11/22/2024 11/23/2023, 09/13, 09/28/2023, Additional history exists HbA1c 11/22/2024 11/23/2023, 08/0 11/2022, 05/21/2022, Additional history exists Albumin/Creatinine Ratio 04/15/2026 023, 08/25/2019, 02/01/2019, Additional history exists Pneumococcal Vaccine: 65+ Years Completed 08/20/2015, 11/27/2011, 08/08/2002, Additional history exists Diabetic Eye Exam Discontinued 07/29/2020, , 06/27/2018, Additional history exists Diabetic Foot Exam Discontinued 11/23/2023, 0 02/26/2020, 02/01/2019, Additional history exists HPV (Gardasil) Vaccine Aged Out No lo nger eligible based on patient's age to complete this topic Hepatitis B Vaccine Aged Out No longe r eligible based on patient's age to complete this topic MENINGOCOCCAL (MENACTRA/MENVEO) Aged Out No longer eligible based on patient's age to complete this topic documented as of this encounter Medical Devices Not on filedocumented as of this encounter Advance Directives * Full Code (Latest Code Status on File) Date Activated Date Inactivated Comments 07/24/2014 7:59 AM 07/26/2014 10:17 PM This orde r reflects the patients wishes and were consensually agreed upon. Care Teams [employer]ker Relationship Specialty Start Date End Date Danielle Angeles MD [address] [place] [address] PCP - General Internal Medicine 03/26/24 documented as of this encounter
[2024-06-09 08:21] LABS: Basophils # (auto) 0.03 K/uL (0.00-0.20); Basophils % (auto) 0.5 %; Eosinophils # (auto) 0.17 K/uL (0.00-0.50); Eosinophils % (auto) 2.8 %; Hematocrit (blood only) 35.2 % (37.0-47.0); Hemoglobin 10.9 g/dl (12.0-16.0); Immature Granulocytes # (auto) 0.02 K/uL (0.01-0.20); Immature Granulocytes % (auto) 0.3 %; Lymphocytes # (auto) 2.35 K/uL (1.20-3.40); Lymphocytes % (auto) 38.6 %; Mean Corpuscular Hemoglobin 27.1 pg (25.0-34.0); Mean Corpuscular Volume 87.6 fL (80.0-100.0); Mean Platelet Volume 9.7 fL (9.4-12.4); Monocytes # (auto) 0.43 K/uL (0.11-0.59); Monocytes % (auto) 7.1 %; Neutrophils # (auto) 3.09 K/uL (1.40-6.50); Neutrophils % (auto) 50.7 %; Platelet Count 246 K/uL (130-400); RDW Coefficient of Variation 17.2 % (11.5-14.5); RDW Standard Deviation 55.9 fL (36.4-46.3); Red Blood Count 4.02 M/uL (4.20-5.40); White Blood Count 6.09 K/ul (4.8-10.8)
[2024-06-09 09:23] LABS: BUN Creatinine Ratio 18.4 (10-20); Calcium 8.7 mg/dl (8.6-10.3); Creatinine Clr Calc Pharmacy 135.5 ml/min; Est GFR (African American) 118.4 ml/min; Est GFR (Non-African American) 102.2 ml/min; Magnesium 1.8 mg/dl (1.7-2.4); Potassium 3.8 mmol/L (3.5-5.1)
[2024-06-09] MEDS: FERROUS SULFATE 325 MG TAB PO SCH (09:26)
[2024-06-09] MEDS: SPIRONOLACTONE 25 MG TAB PO SCH (09:27)
[2024-06-09] MEDS: FLUTICASONE PROPIONATE NA SPR 16 GM BTL SCH (09:27)
[2024-06-09] MEDS: MONTELUKAST SODIUM 10 MG TABLET PO SCH (09:29)
--- NOTE | 2024-06-09 10:46 | Urology Consultation ---
Date of Consultation June 09, 2024 Assessment & Plan (1) Complicated urinary tract infection: (2) Acute left flank pain: (3) Chronic indwelling Osorio catheter: (4) Nephrolithiasis: 78 yo/F with history of nephrolithiasis, chronic indwelling Osorio catheter, recurrent UTI and obstruction of her left kidney status post left ureteral stent admitted for flank pain and suspected UTI. Patient afebrile, hemodynamically stable Labs reviewedcreatinine 0.38, no leukocytosis Urine culture did not identify any specific bacteria Patient reported that her facility was to send out a PCR culture recently Checked with urology office staffno recent PCR resulted are pending from prior to hospitalization CT reviewed and left ureteral stent is in good position, moderate left hydro, similar to previous; bilateral renal stones, no ureteral stones, small bladder calculi Urothelial thickening with stranding adjacent to the left collecting system is also noted which may be due to stent versus infection Stent was last exchanged on 04/13/2024 No acute intervention at this time Recommend continue with antibiotics and supportive care If she continues to have left flank discomfort, then can try adding Tamsulosin, Pyridium, and Oxybutynin for stent management Maintain Osorio catheter for management of urinary retention Will arrange outpatient follow-up with our service to set up next ureteral stent exchange will sign off, please contact us with any additional concerns History of Present Illness Reason for Consultation: Left ureteral stent, recurrent UTI Attending Physician: Gin Dai MD History of Present Illness This is a 78-year-old female with past medical history of A-fib on Eliquis, hypertension, hyperlipidemia, history of PE/DVT, endometrial cancer status post radiation, nephrolithiasis and recurrent UTIs who presented to the emergency department via EMS for evaluation of left flank/abdominal pain and concern for UTI due to "foul smelling urine". She is status post left ureteral stent placement on 04/13/[address] Thorpe for management of obstruction of the left kidney seen on nuclear medicine study. On arrival to ED, she was afebrile, hypertensive. Lab work showed creatinine 0.35, potassium 3.0, WBC 7.4, hemoglobin 11.6, lactate 1.4. Urinalysis showed 3+ blood, 3+ LE, >50 WBC, >20 RBC, 6-10 epithelials and 4+ bacteria. Urine culture collected. Workup in ED included CT abdomen and pelvis without contrast which demonstrated left ureteral stent in good position, moderate left hy dronephrosis similar to prior CT. Urothelial thickening with stranding adjacent to the left collecting system. Bilateral nephrolithiasis, no ureteral calculi. Small bladder calculi noted. Labs today reviewedcreatinine 0.38, WBC 6.09, hemoglobin 10.9. Urine culture showed 3 types of organisms present, all high counts. She is on IV cefepime. Patient seen and examined at bedside this morning. She is awake and eating breakfast. She denies fever or chills. No nausea or vomiting. Patient has chronic indwelling catheter. She reports malodorous urine prior to arrival. No hematuria. She reports left flank and abdominal pain, which was new for her. Pain has improved since arrival. She reports that she had a PCR culture kit from our office that was supposed to be sent out by her facility, but does not believe that it got sent out. Allergies Allergy/AdvReac Type Severity Reaction Status Date / Time doxycycline Allergy Intermediate Swelling Verified 04/13/24 12:02 tetracycline Allergy Mild Eye Verified 04/13/24 12:02 swelling NARINDER Inhibitors AdvReac Intermediate Cough Verified 04/13/24 12:02 codeine AdvReac Mild [place] Verified 04/13/24 12:02 "crazy" Sulfa (Sulfonamide AdvReac Mild Gastrointestinal Verified 04/13/24 12:02 Antibiotics) Upset Home Medications Medication Instructions Recorded Confirmed Type acetaminophen 500 mg tablet 500 mg PO Q6H PRN Fever Or Pain 06/28/23 06/08/24 History (Tylenol Extra Strength) apixaban 5 mg tablet (Eliquis) 5 mg PO AMHS 06/28/23 06/08/24 History atorvastatin 80 mg tablet 80 mg PO HS 06/28/23 06/08/24 History cranberry 400 mg capsule 500 mg PO QAM 06/28/23 06/08/24 History lansoprazole 30 mg capsule,delayed 30 mg PO BID 06/28/23 06/08/24 History release meclizine 25 mg tablet 25 mg PO TID PRN DIZZY 06/28/23 06/08/24 History methenamine hippurate 1 gram tablet 1 g PO BID 06/28/23 06/08/24 History metoprolol succinate 50 mg 50 mg PO AMHS 06/28/23 06/08/24 History tablet,extended release 24 hr nystatin 100,000 unit/gram topical 1 applic topical AMHS 06/28/23 06/08/24 History powder (Nystop) phenazopyridine 200 mg tablet 200 mg PO Q8 PRN .BLADDER SPASMS 06/28/23 06/08/24 History spironolactone 25 mg tablet 50 mg PO QAM 06/28/23 06/08/24 History tramadol 50 mg tablet 50 mg PO Q6 PRN Pain 06/28/23 06/08/24 History docusate sodium 100 mg capsule 100 mg PO HS 09/14/23 06/08/24 History (Colace) mirtazapine 15 mg tablet (Remeron) 15 mg PO HS 09/14/23 06/08/24 History ondansetron HCl 4 mg tablet 4 mg PO Q8H PRN Nausea And Vomiting 09/14/23 06/08/24 History sucralfate 1 gram tablet (Carafate) 1 g PO ACHS 09/14/23 06/08/24 History diclofenac sodium 1 % topical gel 2 g EXT QID #50 grams 11/16/23 06/08/24 Rx (Voltaren Arthritis Pain) nitrofurantoin 100 mg PO BID 10 days #20 caps 03/28/24 06/08/24 Rx monohydrate/macrocrystals 100 mg capsule (Macrobid) ferrous sulfate 325 mg (65 mg 325 mg PO Q OTHER DAY 04/03/24 06/08/24 History iron) tablet,delayed release fluticasone propionate 50 2 spray intranasal DAILY 04/03/24 06/08/24 History mcg/actuation nasal spray,suspension montelukast 10 mg tablet 10 mg PO QAM 04/03/24 06/08/24 History Patient History Medical History History of anemia History of posterior vitreous detachment B/L History of asthma "Well controlled" Chronic indwelling Osorio catheter Hydronephrosis of left kidney Diabetes mellitus, type II Diet controlled Overactive bladder HTN (hypertension) GERD (gastroesophageal reflux disease) Hyperlipidemia Hx of vertigo Hx of cancer of uterus 2013- radiation Hx pulmonary embolism Remote hx years ago In setting of prolonged sitting/immobility during a previous hospitalization per records Urinary retention Osorio cath in place Atrial fibrillation Taking Eliquis History of home oxygen therapy Per previous charting, hx of 2L O2 [place] Current detention record makes no note of oxygen supplementation skilled nursing resident Resides at [facility] Nontoxic thyroid nodule Hx: UTI (urinary tract infection) Recurrent Hx of sepsis Lipodermatosclerosis Chronic bronchitis 'Bronchial asthma' Acquired lymphedema "Stomach" Gets therapy/massage to manage > was complication after radiation treatment per previous PAT RN notation IBS (irritable bowel syndrome) Surgical History History of anesthesia reaction Awareness with D&C and colonoscopy History of open reduction and internal fixation (ORIF) procedure (06/2023) left femur fx Hx of cystoscopy Multiple History of cataract surgery (2020) R/L History of dilatation and curettage History of esophagogastroduodenoscopy (EGD) History of colonoscopy History of bilateral tubal ligation History of cholecystectomy Hx of hernia repair (12/2017) Ventral hernia with mesh History of tooth extraction History of cardiac cath (2010) No stents Family History Other No family history of adverse response to anesthesia Social History Smoking Status: Never smoker Second Hand Exposure: No; Do You Dip or Chew Tobacco: No; Tobacco Cessation Education Requested by Patient: No Hx Alcohol Use: No Hx Substance Use: No Preferred Language: Mohawk Communication Ability: Effective Communication Ability Comment: alert and oriented x3 - of sound mind to sign consent Visual Impairment: No Limitations Roll Skinner Required: No Beliefs That Will Affect Care: None Current Living Situation: Long Term Current Living Situation Comment: [facility] Other Information That Helps Us Care for You: No Feels Safe at Home: Yes Safety Concerns: Feels Safe At This Time Assistive Devices: Glasses Review of Systems Review of Systems: All systems reviewed & are unremarkable except as noted in HPI & below Physical Exam Constitutional: + morbidly obese; no acute distress Respiratory: normal respiratory effort; no respiratory distress and no labored breathing Gastrointestinal (Abdomen): Inspection/Auscultation: abdomen normal to inspection Musculoskeletal: Head/Neck/Chest: normocephalic Neurologic: moves all extremities and awake Psychiatric: Orientation: alert and oriented x 3 Genitourinary: Osorio draining appropriately, some sediment noted in tubing Results & Data Vital Signs (Past 12 Hours) Vital Signs Temp Pulse Resp BP Pulse Ox O2 Del Method 06/09/24 07:40 36.7 C 71 16 137/78 96 Room Air PG Care Time/CCT Total # of Minutes Spent Total Time Spent with Patient: Total time spent is greater than 50% in coordination of care (as documented) at patient's floor/unit and/or counseling patient: Coding Level of Care Code 13271 INT INP/OBS CARE 2/55MIN Diagnoses Complicated urinary tract infection N39.0 Acute left flank pain R10.9 Chronic indwelling Osorio catheter Z97.8 Nephrolithiasis N20.0
--- NOTE | 2024-06-09 11:51 | Hospitalist Progress Note ---
Date of Service June 09, 2024 Assessment & Plan (1) Chronic indwelling Cobb catheter: (2) Calculus of left kidney: (3) Bilateral hydronephrosis: Plan: History of recurrent UTI CT Abd/P- Left ureteral stent in place, moderate left hydronephrosis similar to 01/28/24. Urothelial thickening with adjacent stranding, b/l nephrolithiasis, mildly enlarge left periaortic lymph nodes, anasarca, trace left pl effusion UA suggestive of UTI Continue cefepime Follow up urine culture Urology eval and recs appreciated. No surgical intervention recommended Continue Pyridium Start tamsulosin (4) Diabetes mellitus, type II: Plan: ISS with Accu-Cheks ACHS Carb controlled diet (5) Atrial fibrillation: Plan: Anticoagulated on Eliquis 5 twice daily History of hematuria, bright red blood in urine last occurred several months ago. Continue eliquis Continue metoprolol succinate (6) Hypertension: Plan: Continue home metoprolol, spironolactone BP controlled (7) Hyperlipidemia: Plan: Continue Atorvastatin 80 mg (8) Deep vein thrombosis: Plan: History of DVT (9) Hypokalemia: Plan: K of 3 on admission Repleted K is 3.8 today (10) GERD (gastroesophageal reflux disease): Plan: Continue famotidine, patient reports frequent history of heartburn/indigestion symptoms with taking multiple medications at the same time DVT ppx: Eliquis CODE: DNR/DNI I spent a total of 50 minutes coordinating, documenting and providing care for this patient excluding time spent in performance of separately billed services Admission and Anticipated Discharge Date Admission Date: June 08, 2024 Subjective Patient seen and examined Reports she is bedbound Reports left flank pain, buttock pain Reported mild lower abd pain, improved Denied nausea, vomiting, fever, chills Reports chronic dry cough. No SOB at rest/chest pain Reported cobb was changed a few days ago Denied other complaints Physical Exam Constitutional: + well hydrated and + obese; no acute di stress Eyes: PERRL, conjunctivae normal, anicteric sclerae ENMT: external ear and nose normal, oropharynx normal Respiratory: normal respiratory effort, lungs clear to auscultation Cardiovascular: Rate/Rhythm: regular rate and regular rhythm Gastrointestinal (Abdomen): normal bowel sounds, soft, nontender, no hepatosplenomegaly Musculoskeletal: No pedal edema Skin: Deep tissue injury, sacral area Neurologic: PERRL, EOMI, accommodation nl, no face palsy, no dysarthria Psychiatric: A+Ox3, euthymic affect Genitourinary: Cobb in situ Results & Data Results & Data Vital Signs (Past 12 Hours) Vital Signs Temp Pulse Resp BP Pulse Ox O2 Del Method 06/09/24 07:40 36.7 C 71 16 137/78 96 Room Air Laboratory Results Abnormal lab results 06/08/24 06/09/24 Range/Units 20:00 07:58 RBC 4.02 L (4.20-5.40) M/uL Hgb 10.5 L 10.9 L (12.0-16.0) g/dl Hct 33.2 L 35.2 L (37.0-47.0) % MCHC 31.0 L (32.0-36.0) g/dL RDW Std Deviation 55.9 H (36.4-46.3) fL RDW Coeff of Rodolfo 17.2 H (11.5-14.5) % Creatinine 0.38 L (0.6-1.2) mg/dl Glucose 106 H (70-99(Fasting)) mg/dl Crossmatch See Detail (5) Atrial fibrillation Atrial fibrillation type: unspecified Qualified Code(s): I48.91 - Unspecified atrial fibrillation
[2024-06-09] MEDS: TAMSULOSIN HCL 0.4 MG CAP PO SCH (20:18)
[2024-06-09] MEDS: APIXABAN 5 MG TABLET PO SCH (20:40)
--- NOTE | 2024-06-09 23:06 | Electrocardiogram Report ---
Test Reason : Blood Pressure : */* mmHG Vent. Rate : 90 BPM Atrial Rate : * BPM P-R Int : * ms QRS Dur : 86 ms QT Int : 328 ms P-R-T Axes : * -7 136 degrees QTcB Int : 401 ms Atrial fibrillation with premature ventricular or aberrantly conducted complexes Low voltage QRS Septal infarct , age undetermined Nonspecific T wave abnormality Abnormal ECG When compared with ECG of 13-Nov-2023 05:08, Septal infarct is now Present Nonspecific T wave abnormality, worse in Inferior leads Nonspecific T wave abnormality, worse in Lateral leads Confirmed by Dandre Cuadra ([id number]) on 06/09/2024 11:06:04 PM Referred By: [facility] Confirmed By: Dandre Cuadra
[2024-06-10 06:40] LABS: Hematocrit (blood only) 33.3 % (37.0-47.0); Mean Corpuscular Hemoglobin 26.7 pg (25.0-34.0); Mean Platelet Volume 9.3 fL (9.4-12.4); Platelet Count 203 K/uL (130-400); RDW Coefficient of Variation 17.7 % (11.5-14.5); RDW Standard Deviation 58.4 fL (36.4-46.3); Red Blood Count 3.74 M/uL (4.20-5.40)
[2024-06-10 07:05] LABS: BUN Creatinine Ratio 20.9 (10-20); Calcium 8.7 mg/dl (8.6-10.3); Creatinine Clr Calc Pharmacy 119.7 ml/min; Est GFR (African American) 113.7 ml/min; Est GFR (Non-African American) 98.1 ml/min; Magnesium 1.7 mg/dl (1.7-2.4); Phosphorus 3.6 mg/dl (2.5-4.9); Potassium 3.8 mmol/L (3.5-5.1)
[2024-06-10] MEDS: traMADol HCL 50 MG TABLET PO PRN (09:38)
--- NOTE | 2024-06-10 12:16 | Hospitalist Progress Note ---
Date of Service June 10, 2024 Assessment & Plan (1) Chronic indwelling Osorio catheter: (2) Calculus of left kidney: (3) Bilateral hydronephrosis: Plan: History of recurrent UTI CT Abd/P- Left ureteral stent in place, moderate left hydronephrosis similar to 01/28/24. Urothelial thickening with adjacent stranding, b/l nephrolithiasis, mildly enlarge left periaortic lymph nodes, anasarca, trace left pl effusion UA suggestive of UTI Continue cefepime Urine culture on admission showed mixed org Repeat Urine culture still in lab Urology eval and recs appreciated. No surgical intervention recommended Continue Pyridium, tamsulosin (4) Diabetes mellitus, type II: Plan: ISS with Accu-Cheks ACHS Carb controlled diet (5) Atrial fibrillation: Plan: Anticoagulated on Eliquis 5 twice daily History of hematuria, bright red blood in urine last occurred several months ago. Continue eliquis Continue metoprolol succinate (6) Hypertension: Plan: Continue home metoprolol, spironolactone BP controlled (7) Hyperlipidemia: Plan: Continue Atorvastatin 80 mg (8) Deep vein thrombosis: Plan: History of DVT (9) Hypokalemia: Plan: K of 3 on admission Repleted K is 3.8 today (10) GERD (gastroesophageal reflux disease): Plan: Continue famotidine, patient reports frequent history of heartburn/indigestion symptoms with taking multiple medications at the same time DVT ppx: Eliquis CODE: DNR/DNI I spent a total of 40 minutes coordinating, documenting and providing care for this patient excluding time spent in performance of separately billed services Admission and Anticipated Discharge Date Admission Date: June 08, 2024 Subjective Patient seen and examined Still reports left flank pain, buttock pain Denied nausea, vomiting, abd pain, fever, chills Reports chronic dry cough. No SOB at rest/chest pain Denied other complaints Physical Exam Constitutional: + well hydrated and + obese; no acute di stress Eyes: PERRL, conjunctivae normal, anicteric sclerae ENMT: external ear and nose normal, oropharynx normal Respiratory: normal respiratory effort, lungs clear to auscultation Cardiovascular: Rate/Rhythm: regular rate and regular rhythm Gastrointestinal (Abdomen): normal bowel sounds, soft, nontender, no hepatosplenomegaly Neurologic: PERRL, EOMI, accommodation nl, no face palsy, no dysarthria Psychiatric: A+Ox3, euthymic affect Results & Data Results & Data Vital Signs (Past 12 Hours) Vital Signs Temp Pulse Resp BP Pulse Ox O2 Del Method 06/10/24 08:32 36.9 C 67 18 112/79 97 Room Air Laboratory Results Abnormal lab results 06/10/24 Range/Units 06:26 RBC 3.74 L (4.20-5.40) M/uL Hgb 10.0 L (12.0-16.0) g/dl Hct 33.3 L (37.0-47.0) % MCHC 30.0 L (32.0-36.0) g/dL RDW Std Deviation 58.4 H (36.4-46.3) fL RDW Coeff of Rodolfo 17.7 H (11.5-14.5) % MPV 9.3 L (9.4-12.4) fL Chloride 108 H (98-107) mmol/L Creatinine 0.43 L (0.6-1.2) mg/dl BUN/Creatinine Ratio 20.9 H (10-20) Glucose 105 H (70-99(Fasting)) mg/dl (5) Atrial fibrillation Atrial fibrillation type: unspecified Qualified Code(s): I48.91 - Unspecified atrial fibrillation
[2024-06-11 06:23] LABS: Hematocrit (blood only) 34.6 % (37.0-47.0); Hemoglobin 10.5 g/dl (12.0-16.0); Mean Corpuscular Hemoglobin 26.9 pg (25.0-34.0); Mean Corpuscular Hgb Conc 30.3 g/dL (32.0-36.0); Mean Corpuscular Volume 88.5 fL (80.0-100.0); Mean Platelet Volume 9.5 fL (9.4-12.4); Platelet Count 226 K/uL (130-400); RDW Coefficient of Variation 17.7 % (11.5-14.5); RDW Standard Deviation 57.5 fL (36.4-46.3); Red Blood Count 3.91 M/uL (4.20-5.40); White Blood Count 6.22 K/ul (4.8-10.8)
[2024-06-11 06:38] LABS: BUN Creatinine Ratio 23.8 (10-20); Calcium 8.8 mg/dl (8.6-10.3); Creatinine Clr Calc Pharmacy 122.6 ml/min; Est GFR (African American) 114.6 ml/min; Est GFR (Non-African American) 98.9 ml/min; Potassium 3.9 mmol/L (3.5-5.1)
--- NOTE | 2024-06-11 11:48 | Hospitalist Progress Note ---
Date of Service June 11, 2024 Assessment & Plan (1) Chronic indwelling Osorio catheter: (2) Calculus of left kidney: (3) Bilateral hydronephrosis: Plan: History of recurrent UTI CT Abd/P- Left ureteral stent in place, moderate left hydronephrosis similar to 01/28/24. Urothelial thickening with adjacent stranding, b/l nephrolithiasis, mildly enlarge left periaortic lymph nodes, anasarca, trace left pl effusion UA suggestive of UTI Urine culture and repeat cultures showed mixed org Will continue treatment with IV cefepime to complete treatment based on sensitivity profile of previous urine cultures Urology eval and recs appreciated. No surgical intervention recommended Patient has not been getting prn pyridium ordered. Informed patient and RN about this Add oxybutynin Continue flomax (4) Diabetes mellitus, type II: Plan: ISS with Accu-Cheks ACHS Carb controlled diet Check A1c in AM (5) Atrial fibrillation: Plan: Anticoagulated on Eliquis 5 twice daily History of hematuria, bright red blood in urine last occurred several months ago. Continue eliquis Continue metoprolol succinate (6) Hypertension: Plan: Continue home metoprolol, spironolactone BP controlled (7) Hyperlipidemia: Plan: Continue Atorvastatin 80 mg (8) Deep vein thrombosis: Plan: History of DVT (9) Hypokalemia: Plan: K of 3 on admission Repleted K is 3.9 today (10) GERD (gastroesophageal reflux disease): Plan: Continue famotidine, patient reports frequent history of heartburn/indigestion symptoms with taking multiple medications at the same time DVT ppx: Eliquis CODE: DNR/DNI I spent a total of 35 minutes coordinating, documenting and providing care for this patient excluding time spent in performance of separately billed services Admission and Anticipated Discharge Date Admission Date: June 08, 2024 Subjective Patient seen and examined Reports left flank pain radiating to groin Reported some bladder spasms last night Denied nausea, vomiting, abd pain, fever, chills Reports chronic intermittent dry cough but none so far today No SOB at rest/chest pain Denied other complaints Physical Exam Constitutional: + well hydrated and + obese; no acute di stress Eyes: PERRL, conjunctivae normal, anicteric sclerae ENMT: external ear and nose normal, oropharynx normal Respiratory: normal respiratory effort, lungs clear to auscultation Cardiovascular: Rate/Rhythm: + irregularly irregular Gastrointestinal (Abdomen): normal bowel sounds, soft, nontender, no hepatosplenomegaly Musculoskeletal: No pedal edema Neurologic: PERRL, EOMI, accommodation nl, no face palsy, no dysarthria Psychiatric: A+Ox3, euthymic affect Results & Data Results & Data Vital Signs (Past 12 Hours) Vital Signs Temp Pulse Resp BP Pulse Ox O2 Del Method 06/11/24 08:43 Room Air 06/11/24 07:51 36.8 C 67 16 109/69 95 Room Air Laboratory Results Abnormal lab results 06/08/24 06/11/24 Range/Units 20:00 06:04 RBC 3.91 L (4.20-5.40) M/uL Hgb 10.5 L (12.0-16.0) g/dl Hct 34.6 L (37.0-47.0) % MCHC 30.3 L (32.0-36.0) g/dL RDW Std Deviation 57.5 H (36.4-46.3) fL RDW Coeff of Rodolfo 17.7 H (11.5-14.5) % Creatinine 0.42 L (0.6-1.2) mg/dl BUN/Creatinine Ratio 23.8 H (10-20) Glucose 108 H (70-99(Fasting)) mg/dl Crossmatch See Detail (5) Atrial fibrillation Atrial fibrillation type: unspecified Qualified Code(s): I48.91 - Unspecified atrial fibrillation
[2024-06-11] MEDS: oxyBUTYnin chloride 5 MG TAB PO SCH (12:11)
[2024-06-11] MEDS: PHENAZOPYRIDINE HCL 200 MG TAB PO PRN (12:37)
[2024-06-12 07:26] LABS: Hematocrit (blood only) 33.1 % (37.0-47.0); Mean Corpuscular Hemoglobin 27.1 pg (25.0-34.0); Mean Corpuscular Hgb Conc 30.2 g/dL (32.0-36.0); Mean Corpuscular Volume 89.7 fL (80.0-100.0); Mean Platelet Volume 9.5 fL (9.4-12.4); Platelet Count 227 K/uL (130-400); RDW Coefficient of Variation 17.7 % (11.5-14.5); RDW Standard Deviation 58.2 fL (36.4-46.3); Red Blood Count 3.69 M/uL (4.20-5.40); White Blood Count 5.91 K/ul (4.8-10.8)
[2024-06-12 07:50] LABS: BUN Creatinine Ratio 21.4 (10-20); Calcium 8.8 mg/dl (8.6-10.3); Creatinine Clr Calc Pharmacy 122.6 ml/min; Est GFR (African American) 114.6 ml/min; Est GFR (Non-African American) 98.9 ml/min; Magnesium 1.8 mg/dl (1.7-2.4); Phosphorus 3.5 mg/dl (2.5-4.9); Potassium 4.1 mmol/L (3.5-5.1)
[2024-06-12 08:36] LABS: Estimated Average Glucose 126 mg/dl
--- NOTE | 2024-06-12 12:37 | Hospitalist Progress Note ---
Date of Service June 12, 2024 Assessment & Plan (1) Chronic indwelling Osorio catheter: (2) Calculus of left kidney: (3) Bilateral hydronephrosis: Plan: History of recurrent UTI CT Abd/P- Left ureteral stent in place, moderate left hydronephrosis similar to 01/28/24. Urothelial thickening with adjacent stranding, b/l nephrolithiasis, mildly enlarge left periaortic lymph nodes, anasarca, trace left pl effusion UA suggestive of UTI Urine culture and repeat cultures showed mixed org Will continue treatment with IV cefepime to complete treatment based on sensitivity profile of previous urine cultures Urology eval and recs appreciated. No surgical intervention recommended Continue flomax, oxybutynin and prn pyridium per Uro (4) Diabetes mellitus, type II: Plan: ISS with Accu-Cheks ACHS Carb controlled diet HbA1c is 6 (5) Atrial fibrillation: Plan: Anticoagulated on Eliquis 5 twice daily History of hematuria, bright red blood in urine last occurred several months ago. Continue eliquis Continue metoprolol succinate (6) Hypertension: Plan: Continue home metoprolol, spironolactone BP controlled (7) Hyperlipidemia: Plan: Continue Atorvastatin 80 mg (8) Deep vein thrombosis: Plan: History of DVT (9) Hypokalemia: Plan: K of 3 on admission Repleted K is 4.1 today (10) GERD (gastroesophageal reflux disease): Plan: Continue famotidine, DVT ppx: Eliquis CODE: DNR/DNI I spent a total of 35 minutes coordinating, documenting and providing care for this patient excluding time spent in performance of separately billed services Admission and Anticipated Discharge Date Admission Date: June 08, 2024 Subjective Patient seen and examined Reports left flank pain radiating to groin improving No bladder spasms today Denied nausea, vomiting, abd pain, fever, chills Reports chronic intermittent dry cough Denied other complaints Physical Exam Constitutional: + well hydrated and + obese; no acute di stress Eyes: PERRL, conjunctivae normal, anicteric sclerae ENMT: external ear and nose normal, oropharynx normal Respiratory: normal respiratory effort, lungs clear to auscultation Cardiovascular: Rate/Rhythm: + irregularly irregular Gastrointestinal (Abdomen): normal bowel sounds, soft, nontender, no hepatosplenomegaly Musculoskeletal: No pedal edema Neurologic: PERRL, EOMI, accommodation nl, no face palsy, no dysarthria Psychiatric: A+Ox3, euthymic affect Results & Data Results & Data Vital Signs (Past 12 Hours) Vital Signs Temp Pulse Resp BP Pulse Ox O2 Del Method 06/12/24 07:13 36.8 C 62 16 100/50 L 95 Room Air Laboratory Results Abnormal lab results 06/12/24 Range/Units 06:56 RBC 3.69 L (4.20-5.40) M/uL Hgb 10.0 L (12.0-16.0) g/dl Hct 33.1 L (37.0-47.0) % MCHC 30.2 L (32.0-36.0) g/dL RDW Std Deviation 58.2 H (36.4-46.3) fL RDW Coeff of Rodolfo 17.7 H (11.5-14.5) % Creatinine 0.42 L (0.6-1.2) mg/dl BUN/Creatinine Ratio 21.4 H (10-20) Glucose 102 H (70-99(Fasting)) mg/dl Hemoglobin A1c 6.0 H (4.5-5.6) % (5) Atrial fibrillation Atrial fibrillation type: unspecified Qualified Code(s): I48.91 - Unspecified atrial fibrillation
[2024-06-13 07:57] LABS: Hematocrit (blood only) 31.7 % (37.0-47.0); Hemoglobin 9.9 g/dl (12.0-16.0); Mean Corpuscular Hemoglobin 27.5 pg (25.0-34.0); Mean Corpuscular Hgb Conc 31.2 g/dL (32.0-36.0); Mean Corpuscular Volume 88.1 fL (80.0-100.0); Platelet Count 243 K/uL (130-400); RDW Coefficient of Variation 17.7 % (11.5-14.5); RDW Standard Deviation 58.1 fL (36.4-46.3); White Blood Count 6.08 K/ul (4.8-10.8)
[2024-06-13 08:13] LABS: BUN Creatinine Ratio 28.2 (10-20); Calcium 8.7 mg/dl (8.6-10.3); Est GFR (African American) 117.4 ml/min; Est GFR (Non-African American) 101.3 ml/min; Potassium 3.9 mmol/L (3.5-5.1)
--- NOTE | 2024-06-13 12:59 | Hospitalist Progress Note ---
Date of Service June 13, 2024 Assessment & Plan (1) Chronic indwelling Osorio catheter: (2) Calculus of left kidney: (3) Bilateral hydronephrosis: Plan: History of recurrent UTI CT Abd/P- Left ureteral stent in place, moderate left hydronephrosis similar to 01/28/24. Urothelial thickening with adjacent stranding, b/l nephrolithiasis, mildly enlarge left periaortic lymph nodes, anasarca, trace left pl effusion UA suggestive of UTI Urine culture and repeat culture showed mixed org Will continue treatment with IV cefepime to complete 7 days treatment based on sensitivity profile of previous urine cultures Urology eval and recs appreciated. No surgical intervention recommended Continue flomax, oxybutynin and prn pyridium per Uro (4) Diabetes mellitus, type II: Plan: ISS with Accu-Cheks ACHS Carb controlled diet HbA1c is 6 (5) Atrial fibrillation: Plan: Anticoagulated on Eliquis 5 twice daily History of hematuria, bright red blood in urine last occurred several months ago. Continue eliquis Continue metoprolol succinate (6) Hypertension: Plan: Continue home metoprolol, spironolactone BP controlled (7) Hyperlipidemia: Plan: Continue Atorvastatin 80 mg (8) Deep vein thrombosis: Plan: History of DVT (9) Hypokalemia: Plan: K of 3 on admission Repleted K is 3.9 today (10) GERD (gastroesophageal reflux disease): Plan: Continue famotidine, DVT ppx: Eliquis CODE: DNR/DNI I spent a total of 35 minutes coordinating, documenting and providing care for this patient excluding time spent in performance of separately billed services Admission and Anticipated Discharge Date Admission Date: June 08, 2024 Subjective Patient seen and examined Reports left flank pain continues to improve Bladder spasms have resolved Reports chronic intermittent dry cough Denied other complaints Physical Exam Constitutional: + well hydrated and + obese; no acute di stress Eyes: PERRL, conjunctivae normal, anicteric sclerae ENMT: external ear and nose normal, oropharynx normal Respiratory: normal respiratory effort, lungs clear to auscultation Cardiovascular: Rate/Rhythm: + irregularly irregular Gastrointestinal (Abdomen): normal bowel sounds, soft, nontender, no hepatosplenomegaly Musculoskeletal: No pedal edema Neurologic: PERRL, EOMI, accommodation nl, no face palsy, no dysarthria Psychiatric: A+Ox3, euthymic affect Results & Data Results & Data Vital Signs (Past 12 Hours) Vital Signs Temp Pulse Resp BP Pulse Ox O2 Del Method 06/13/24 07:40 36.9 C 62 16 103/66 92 Room Air Laboratory Results Abnormal lab results 06/13/24 Range/Units 06:58 RBC 3.60 L (4.20-5.40) M/uL Hgb 9.9 L (12.0-16.0) g/dl Hct 31.7 L (37.0-47.0) % MCHC 31.2 L (32.0-36.0) g/dL RDW Std Deviation 58.1 H (36.4-46.3) fL RDW Coeff of Rodolfo 17.7 H (11.5-14.5) % Creatinine 0.39 L (0.6-1.2) mg/dl BUN/Creatinine Ratio 28.2 H (10-20) Glucose 122 H (70-99(Fasting)) mg/dl (5) Atrial fibrillation Atrial fibrillation type: unspecified Qualified Code(s): I48.91 - Unspecified atrial fibrillation
[2024-06-14 07:15] LABS: Hematocrit (blood only) 31.7 % (37.0-47.0); Hemoglobin 10.1 g/dl (12.0-16.0); Mean Corpuscular Hemoglobin 27.7 pg (25.0-34.0); Mean Corpuscular Hgb Conc 31.9 g/dL (32.0-36.0); Mean Corpuscular Volume 87.1 fL (80.0-100.0); Mean Platelet Volume 9.9 fL (9.4-12.4); Platelet Count 253 K/uL (130-400); RDW Coefficient of Variation 17.8 % (11.5-14.5); RDW Standard Deviation 56.9 fL (36.4-46.3); Red Blood Count 3.64 M/uL (4.20-5.40); White Blood Count 6.94 K/ul (4.8-10.8)
[2024-06-14 07:26] LABS: BUN Creatinine Ratio 29.3 (10-20); Calcium 8.8 mg/dl (8.6-10.3); Creatinine Clr Calc Pharmacy 125.6 ml/min; Est GFR (African American) 115.5 ml/min; Est GFR (Non-African American) 99.7 ml/min; Potassium 4.3 mmol/L (3.5-5.1)
[2024-06-14 07:35] VITALS: RESP 16; TEMP 98.6; O2SAT 94
[2024-06-14] MEDS ORDERED: INFLUENZA VACC TS2024-25(65y+)/PF (IIV3) 0.5mL Syr IM ONE (10:34)
[2024-06-14] MEDS ORDERED: PNEUMOCOCCAL VACCINE (PCV20) 20-VAL CONJ-DIP CRM/PF 0.5 ML SYR IM ONE (10:34)
--- NOTE | 2024-06-14 12:35 | Discharge Summary ---
Discharge Summary Date of Service June 14, 2024 Principal Dx & Hospital Course #1 = Principal Diagnosis (1) Chronic indwelling Cobb catheter: (2) Calculus of left kidney: (3) Bilateral hydronephrosis: History of recurrent UTI CT Abd/P- Left ureteral stent in place, moderate left hydronephrosis similar to 01/28/24. Urothelial thickening with adjacent stranding, b/l nephrolithiasis, mildly enlarge left periaortic lymph nodes, anasarca, trace left pl effusion UA suggestive of UTI Urine culture and repeat culture showed mixed org Treated with IV cefepime to complete 7 days treatment based on sensitivity profile of previous urine cultures Urology eval and recs appreciated. No surgical intervention recommended Continue flomax, oxybutynin and prn pyridium per Uro, discharged with the same Pt also requesting prn tramadol, discharged with the same with pcp and urology follow up. Continue home daily macrobid and methenamine after discharge Pt with indwelling cobb catheter, notes it was last changed 10 days before discharge. Close HH services after discharge (pt states it is changed by home health) (4) Diabetes mellitus, type II: ISS with Accu-Cheks ACHS Carb controlled diet HbA1c is 6 PCP followup (5) Atrial fibrillation: Anticoagulated on Eliquis 5 twice daily History of hematuria, bright red blood in urine last occurred several months ago. Continue eliquis Continue metoprolol succinate (6) Hypertension: Continue home metoprolol, spironolactone BP controlled (7) Hyperlipidemia: Continue Atorvastatin 80 mg (8) Deep vein thrombosis: History of DVT On eliquis as above (9) GERD (gastroesophageal reflux disease): Continue famotidine, Notes For Next Care Provider Medication Changes From Visit tramadol 50mg prn for pain tamsulosin renewed Admission HPI Per Admitting Provider This is a 78-year-old female with PMHx A-fib on Eliquis, HTN, HLD, history of PE/DVT, bronchial asthma, DM type II, GERD, chronic anemia, chronic lymphedema, osteoarthritis. She has hx of multiple recurrent UTIs, history of resistance and allergies to several antibiotics. Seen by urology previously as an outpatient. Patient has had an indwelling Cobb catheter placed since right hip fracture in June 2023 due to issues with weightbearing and incontinence. Patient had indwelling stent on the left placed for hydronephrosis. 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 In the past, she has minimal symptoms whenever she does develop a UTI. Antonio camacho noticed foul-smelling urine late last week, it is typically discolored. There was concern for developing/worsening infection. The patient herself notices that sometimes the urine is clear and then it can look like dark blood, like iodine. She thinks the last time it was dark and blood appearing was a few months ago. She state she feels warm and chilled in the past few days, but denies documented fever. Staff is emptying the catheter bag every shift per orders, it has also needed to be flushed recently. Pt admits to recent burning sensation and some lower abdominal pain. Multiple urological infections including E. coli, Pseudomonas, hafnia alvei-some of also included Gina glabrata complex. Most recent Cobb exchange was on 06/03/2024. Admission Exam Per Admitting Provider General Appearance:Moderately built and nourished, no apparent distress Head: normocephalic, Atraumatic Eyes: normal inspection, EOMI Neck: supple, Trachea midline Respiratory/Chest: Normal breath sounds, CTA, No accessory muscle use Cardiovascular: S1, S2, No murmur Abdomen/GI:Soft, Non tender, Bowel sounds present Extremities/Musculoskeletal:normal inspection, no edema Neurologic/Psych:AAOX3, grossly no focal neurological deficits Skin: normal color, warm Discharge Exam General: Alert, oriented. No acute distress Psych: Appropriate mood and affect HEENT: NC/AT Chest: Nontender to palpation. CV: RRR Resp: no increased effort of breathing Abdomen: Soft Extremities: Trace edema in lower extremities bilaterally. Updated Medication List Medication Instructions Recorded Confirmed Type acetaminophen 500 mg tablet 500 mg PO Q6H PRN Fever Or Pain 06/28/23 06/08/24 History (Tylenol Extra Strength) apixaban 5 mg tablet (Eliquis) 5 mg PO AMHS 06/28/23 06/08/24 History atorvastatin 80 mg tablet 80 mg PO HS 06/28/23 06/08/24 History cranberry 400 mg capsule 500 mg PO QAM 06/28/23 06/08/24 History lansoprazole 30 mg capsule,delayed 30 mg PO BID 06/28/23 06/08/24 History release meclizine 25 mg tablet 25 mg PO TID PRN DIZZY 06/28/23 06/08/24 History methenamine hippurate 1 gram tablet 1 g PO BID 06/28/23 06/08/24 History metoprolol succinate 50 mg 50 mg PO AMHS 06/28/23 06/08/24 History tablet,extended release 24 hr nystatin 100,000 unit/gram topical 1 applic topical AMHS 06/28/23 06/08/24 History powder (Nystop) phenazopyridine 200 mg tablet 200 mg PO Q8 PRN .BLADDER SPASMS 06/28/23 06/08/24 History spironolactone 25 mg tablet 50 mg PO QAM 06/28/23 06/08/24 History docusate sodium 100 mg capsule 100 mg PO HS 09/14/23 06/08/24 History (Colace) mirtazapine 15 mg tablet (Remeron) 15 mg PO HS 09/14/23 06/08/24 History ondansetron HCl 4 mg tablet 4 mg PO Q8H PRN Nausea And Vomiting 09/14/23 History sucralfate 1 gram tablet (Carafate) 1 g PO ACHS 09/14/23 06/08/24 History diclofenac sodium 1 % topical gel 2 g EXT QID #50 grams 11/16/23 06/08/24 Rx (Voltaren Arthritis Pain) nitrofurantoin 100 mg PO BID 10 days #20 caps 03/28/24 06/08/24 Rx monohydrate/macrocrystals 100 mg capsule (Macrobid) ferrous sulfate 325 mg (65 mg 325 mg PO Q OTHER DAY 04/03/24 06/08/24 History iron) tablet,delayed release fluticasone propionate 50 2 spray intranasal DAILY 04/03/24 06/08/24 History mcg/actuation nasal spray,suspension montelukast 10 mg tablet 10 mg PO QAM 04/03/24 06/08/24 History tamsulosin 0.4 mg capsule 0.4 mg PO HS #30 caps 06/14/24 Rx tramadol 50 mg tablet 50 mg PO Q12H PRN pain #10 tabs 06/14/24 Rx Hospital Stay Data Consultations 06/08/24 13:12 ED Decision to Admit Stat 06/08/24 13:12 Consult Urology Routine Diagnostic Imagining Performed 06/08/24 11:21 CT abd pelvis wo con Stat Abdomen/Pelvis CT 06/08/24 11:21 CT OF THE ABDOMEN AND PELVIS WITHOUT CONTRAST CLINICAL HISTORY: Left flank pain COMPARISON STUDY: CT of the abdomen and pelvis January 28, 2024. Renal ultrasound May 19, 2024. TECHNIQUE: Axial images of the abdomen and pelvis were obtained without IV contrast. Images were reviewed in the axial, sagittal, and coronal planes. Automated exposure control was utilized for the study. A dose lowering technique was utilized adhering to the principles of ALARA. FINDINGS: There is a trace left pleural effusion. No pneumatosis, free air or portal venous gas is present. A left ureteral stent is in place. Moderate left hydronephrosis is similar to CT of January 28, 2024. There is urothelial thickening with adjacent stranding. No ureteral calculi are present. There are small bladder calculi. Bilateral renal calculi are noted. These include large calculi within the upper pole of the right kidney. There is a 1.2 cm left renal calculus. Mild right hydronephrosis is similar to prior CT. Water attenuation left renal lesion favors a cyst. Prominent left periaortic lymph nodes measure up to 1.4 x 0.9 cm. These have slightly decreased in size since prior CT. A Cobb balloon within the bladder is present. Evaluation of the abdomen and pelvis is suboptimal on this unenhanced exam. Liver, spleen, left adrenal gland and pancreas are unremarkable. A low attenuation 2.4 cm right adrenal nodule is unchanged. This is benign. Colonic diverticulosis. Evidence for acute diverticulitis. Anasarca is noted. Presacral edema is present. The findings suggest volume overload. IMPRESSION: 1. Left ureteral stent in place. Moderate left hydronephrosis similar to CT of January 28, 2024. Urothelial thickening with adjacent stranding adjacent to the left collecting system may be related to the indwelling stent however an infectious process could appear similar. 2. Bilateral nephrolithiasis. No ureteral calculi. Small bladder calculi. 3. Mildly enlarged left periaortic lymph nodes which are likely reactive but should be assessed on follow-up exams. 4. No bowel obstruction. Colonic diverticulosis. No evidence for acute diverticulitis. 5. Anasarca. Trace left pleural effusion. ACT 112: Negative or not required by law. Electronically signed by: Anibal Amos M.D. 06/08/2024 12:25 PM Chest X-Ray 06/08/24 11:21 XR chest 1V portable CLINICAL HISTORY: L flank pain, chest pain COMPARISON STUDY: Chest CT June 28, 2023. Chest radiograph November 12, 2023. FINDINGS: There is no pneumothorax. Blunting of the left costophrenic angle is chronic. Cardiomegaly is unchanged. There is no consolidation to suggest pneumonia. Left basilar densities favor atelectasis. There is no evidence for pulmonary edema. Asymmetric right upper lung density is similar to prior exams. There is an old, healed proximal right humeral fracture. IMPRESSION: No acute cardiopulmonary findings. No significant change in appearance of the chest. ACT 112: Negative or not required by law. Electronically signed by: Anibal Amos M.D. 06/08/2024 11:41 AM Pending Results Patient Have Any Pending Studies at Discharge: No Discharge Instructions Given to Patient (Per Discharging Provider) Amy, You are being discharged. You completed 7 days of IV antibiotics for treatment of an infection related to your urinary tract. Please continue with your home Macrobid and methenamine medications at home. Please keep close follow-up with urology after discharge. Urology recommends recommends for your pain that you continue with the Flomax, Pyridium, and the oxybutynin you have at home. Please take them as prescribed. We are discharging you with a few pills of tramadol to help with your pain as well. However, you will need to follow-up with your primary care provider for alternatives or refills of this medication. Please keep close follow up with your primary care provider after discharge. Please do not hesitate to come back to the emergency room if your symptoms worsen or return. It was a pleasure taking care of you while you were here. Total Time Total Time Spent Total Time Spent (In Minutes): 75
[2024-06-14 12:52] VITALS: BP 106/63; PULSE 64
--- NOTE | 2024-06-15 15:47 | Coding Query ---
CODING QUERY To promote full compliance with coding requirements relating to patient care, provider participation is requested in all cases of computer repair instructor uncertainty. Please assist us with the question(s) below: Coding Question(s): Pt admitted with complicated UTI- with indwelling urinary catheter and indwelling ureteral stent . History of drug resistance. Please document, if known or suspected, the etiology of the UTI. Thanks for your help! Agustin Davies MODELING ANALYST [facility] Physician's Response(s): uncertain Principal Diagnosis: "that condition established after study, to be chiefly responsible for occasioning the admission of the patient to the hospital for care." Co-Existing Principal Diagnosis: "when two or more diagnoses equally meet the criteria for principal diagnosis as determined by the circumstances of admission, diagnostic work up, and/or therapy provided, and the Alphabetic Index, Tabular List, or another coding guideline does not provide sequencing direction, any one of the diagnoses may be sequenced first." "When the physician has documented what appears to be a current diagnosis in the body of the record, but has not included the diagnosis in the final diagnostic statement, the physician should be asked whether the diagnosis should be added." ([facility] 2 QTR90. p3-4) ANAMARIA
== END 2024-06-14 13:07 | disposition home health service (06) | DRG 690 ==
LOC: ED 10:45 → 3W 13:12 → SUATTDRO 13:12 → 3W 16:39

== ENCOUNTER 2024-06-26 11:05 | Observation (INO) ==
[2024-06-26 12:44] LABS: Basophils # (auto) 0.03 K/uL (0.00-0.20); Basophils % (auto) 0.4 %; Eosinophils % (auto) 3.7 %; Hematocrit (blood only) 37.4 % (37.0-47.0); Hemoglobin 11.7 g/dl (12.0-16.0); Immature Granulocytes # (auto) 0.04 K/uL (0.01-0.20); Immature Granulocytes % (auto) 0.5 %; Lymphocytes # (auto) 2.63 K/uL (1.20-3.40); Lymphocytes % (auto) 32.3 %; Mean Corpuscular Hemoglobin 27.7 pg (25.0-34.0); Mean Corpuscular Hgb Conc 31.3 g/dL (32.0-36.0); Mean Corpuscular Volume 88.6 fL (80.0-100.0); Mean Platelet Volume 10.3 fL (9.4-12.4); Monocytes # (auto) 0.48 K/uL (0.11-0.59); Monocytes % (auto) 5.9 %; Neutrophils # (auto) 4.66 K/uL (1.40-6.50); Neutrophils % (auto) 57.2 %; Platelet Count 248 K/uL (130-400); RDW Coefficient of Variation 17.5 % (11.5-14.5); RDW Standard Deviation 57.5 fL (36.4-46.3); Red Blood Count 4.22 M/uL (4.20-5.40); White Blood Count 8.14 K/ul (4.8-10.8)
[2024-06-26 12:54] LABS: Appearance Urine Turbid (Clear); Bacteria Urine Automated 4+ (None Seen); Bilirubin Urine Negative (Negative); Blood Urine 3+ (Negative); Color Urine Red; Glucose Urine UA Negative (Negative); Ketones Urine Negative (Negative); Leukocyte Esterase Urine 3+ (Negative); Nitrite Urine Negative (Negative); Protein Urine 2+ (Negative); RBC Urine Automated >20 /hpf (0-2); Specific Gravity Urine 1.005 (1.000-1.030); Urobilinogen Urine Negative (Negative); WBC Urine Automated >50 /hpf (0-5)
[2024-06-26 12:59] LABS: Albumin Globulin Ratio 0.9 (0.9-2); Albumin Level 2.8 gm/dl (3.4-5.0); Bilirubin,Total 0.3 mg/dl (0.2-1.0); Calcium 8.7 mg/dl (8.6-10.3); Creatinine Clr Calc Pharmacy 138.7 ml/min; Potassium 3.6 mmol/L (3.5-5.1); Total Protein 5.8 gm/dl (6.0-8.3)
--- NOTE | 2024-06-26 16:06 | CT Scan Report ---
CT abd pelvis wo con CLINICAL HISTORY: left flank pain, hematuria, UTI TECHNIQUE: Helical axial images of the abdomen and pelvis were obtained. Automated dose lowering tech niques and/or adjustment according to patient size were utilized for this exam. This exam was perfor med without intravenous contrast. CT DOSE: 1423.01 mGy.cm COMPARISON: Comparison is made to CT abdomen pelvis 06/08/2024 FINDINGS: Lower chest: Bibasilar atelectasis versus scarring is seen. Cardiomegaly is seen with biatrial enlar gement. Liver: Unremarkable. No focal lesions are seen. Gallbladder and biliary tree: Patient is status post cholecystectomy. No intra- or extrahepatic bilia ry ductal dilation. Pancreas: Unremarkable, no focal lesions. Spleen: Calcifications are noted in the spleen compatible with prior granulomatous disease. Adrenals: Right adrenal gland appears is seen. Kidneys and ureters: Left ureteral stent is seen. Left exophytic cysts are seen. Nonobstructive stone s are seen on the right. Bladder: Limited evaluation due to underdistention. Reproductive organs: Incidentally noted, there is a Osorio catheter in the vagina. Bowel: Diverticulosis is seen without evidence of diverticulitis. Lymph nodes Retroperitoneal: Unremarkable. Pelvic: Unremarkable. Mesenteric: Unremarkable. Peritoneum: Normal. Vessels: Atherosclerotic calcifications are seen. Abdominal wall: Unremarkable. Bones: Orthopedic hardware in the left femur is seen. Multilevel degenerative changes and compression deformities are seen. IMPRESSION: Left ureteral stent is seen. No acute abnormalities. Nonobstructive stones are seen in the right vasquez ecting system. ACT 112: Negative or not required by law. Electronically signed by: Trav Gallegos M.D. 06/26/2024 4:04 PM
--- NOTE | 2024-06-26 16:45 | XRay Report ---
XR chest 1V portable CLINICAL HISTORY: hematuria, wheezing TECHNIQUE: Single frontal radiograph of the chest was obtained. Comparison: Comparison is made to chest radiograph 06/08/2024 FINDINGS: Exam is limited by underpenetration. Cardiomegaly is noted. The aortic arch is calcified. The lungs a re clear. Small left effusion is seen. IMPRESSION: No acute chest disease. ACT 112: Negative or not required by law. Electronically signed by: Trav Gallegos M.D. 06/26/2024 4:44 PM
--- NOTE | 2024-06-26 17:31 | History & Physical Report ---
Date of Service June 26, 2024 Assessment & Plan (1) Infection associated with indwelling ureteral stent: (2) Hematuria: (3) Acute left flank pain: (4) Chronic indwelling Cobb catheter: (5) Atrial fibrillation: (6) Morbid obesity: (7) Hypertension: (8) Hyperlipidemia: (9) Asthma: (10) Sacral back pain: Plan This is a 78-year-old female resident of [facility] with PMH of A- fib on Eliquis, HTN, HLD, history of PE/DVT, asthma, DM type II, chronic anemi a, chronic lymphedema, history of recurrent UTIs and ureteral stents who presents with hematuria. Hematuria Red urine noted in collection bag since yesterday Hgb 11.7 (baseline 10-11) Hold Eliquis for now Urology consulted Complicated UTI Indwelling L ureteral stent Indwelling cobb catheter Had an indwelling Cobb catheter placed since right hip fracture in June 2023 due to issues with weightbearing and incontinence Follows with [facility] urology with L ureteral stent in place for hydronephrosis Continue tamsulosin, PRN Pyridium Urology consulted Complicated UTI Abnormal UA Recently admitted, completed 7d course cefepime H/o of multiple organisms growing in urine in the past, including pseudomonas Cobb exchanged in ED Continue empiric Zosyn Follow urine culture Sacral area skin breakdown - present prior to arrival C/o increased pain in this region, states she does not have enough help moving around at [facility] - unable to get out of bed on her own Area erythematous, no large open areas noted although difficult to fully visualize in ED Dressing in place from [facility], our RN to replace Turn and reposition Wound care consult Atrial fibrillation Anticoagulated on Eliquis 5 twice daily - hold for now 2/2 hematuria Continue metoprolol succinate Hypertension Continue home Toprol, spironolactone Hyperlipidemia Continue Atorvastatin Deep vein thrombosis History of DVT GERD (gastroesophageal reflux disease) Continue famotidine DVT Ppx: SCDs for now Code status: DNR/DNI PCP: Felipe Dispo: admitted to [facility] Patient seen in collaboration with Dr. Dyer. Please see addendum. I spent a total of 75 minutes coordinating, documenting, and providing care for this patient excluding time spent in the performance of separately billed services. History of Present Illness Chief Complaint: hematuria Primary Care Provider: Pavan Mckeon MD This is a 78-year-old female resident of [facility] with PMH of A- fib on Eliquis, HTN, HLD, history of PE/DVT, asthma, DM type II, chronic anemia, chronic lymphedema, history of recurrent UTIs and ureteral stents who presents with hematuria since yesterday. Had an indwelling Cobb catheter placed since right hip fracture in June 2023 due to issues with weightbearing and incontinence. Follows with [facility] urology with L ureteral stent in place for hydronephrosis. Was recently admitted to our service from 06/08-06/14 for bilateral hydronephrosis and complicated UTI. Completed 7d course of Cefepime at that time. Urology was consulted but no intervention while admitted, due for stent replacement this July. Noticed red appearance to urine in collection bag yesterday and it became more bright red in color today, so facility sent her in for further evaluation. Also notes dysuria she typically has with UTI as well as colicky L suprapubic pain. No fever or chills. No CP, SOB, N/V, diarrhea or constipation. Stools have been soft 2/2 softener but denies diarrhea. Has a lot of difficulty moving on her own and requires assistance to get out of bed. Notes worsening pain near buttocks and nursing staff at [facility] recently started dressing that area due to skin breakdown. Allergies Allergy/AdvReac Type Severity Reaction Status Date / Time doxycycline Allergy Intermediate Swelling Verified 04/13/24 12:02 tetracycline Allergy Mild Eye Verified 04/13/24 12:02 swelling NARINDER Inhibitors AdvReac Intermediate Cough Verified 04/13/24 12:02 codeine AdvReac Mild [place] Verified 04/13/24 12:02 "crazy" Sulfa (Sulfonamide AdvReac Mild Gastrointestinal Verified 04/13/24 12:02 Antibiotics) Upset Home Medications Medication Instructions Recorded Confirmed Type acetaminophen 500 mg tablet 500 mg PO Q6H PRN Fever Or Pain 06/28/23 06/26/24 History (Tylenol Extra Strength) apixaban 5 mg tablet (Eliquis) 5 mg PO AMHS 06/28/23 06/26/24 History atorvastatin 80 mg tablet 80 mg PO HS 06/28/23 06/26/24 History cranberry 400 mg capsule 500 mg PO QAM 06/28/23 06/26/24 History lansoprazole 30 mg capsule,delayed 30 mg PO BID 06/28/23 06/26/24 History release meclizine 25 mg tablet 25 mg PO TID PRN DIZZY 06/28/23 06/26/24 History metoprolol succinate 50 mg 50 mg PO AMHS 06/28/23 06/26/24 History tablet,extended release 24 hr nystatin 100,000 unit/gram topical 1 applic topical AMHS 06/28/23 06/26/24 History powder (Nystop) phenazopyridine 200 mg tablet 200 mg PO Q8 PRN .BLADDER SPASMS 06/28/23 06/26/24 History spironolactone 25 mg tablet 50 mg PO QAM 06/28/23 06/26/24 History docusate sodium 100 mg capsule 100 mg PO HS 09/14/23 06/26/24 History (Colace) mirtazapine 15 mg tablet (Remeron) 15 mg PO HS 09/14/23 06/26/24 History ondansetron HCl 4 mg tablet 4 mg PO Q8H PRN Nausea And Vomiting 09/14/23 06/26/24 History sucralfate 1 gram tablet (Carafate) 1 g PO ACHS 09/14/23 06/26/24 History diclofenac sodium 1 % topical gel 2 g EXT QID #50 grams 11/16/23 06/26/24 Rx (Voltaren Arthritis Pain) ferrous sulfate 325 mg (65 mg 325 mg PO Q OTHER DAY 04/03/24 06/26/24 History iron) tablet,delayed release fluticasone propionate 50 2 spray intranasal DAILY 04/03/24 06/26/24 History mcg/actuation nasal spray,suspension montelukast 10 mg tablet 10 mg PO QAM 04/03/24 06/26/24 History tamsulosin 0.4 mg capsule 0.4 mg PO HS #30 caps 06/14/24 06/26/24 Rx tramadol 50 mg tablet 50 mg PO Q12H PRN pain #10 tabs 06/14/24 06/26/24 Rx methenamine hippurate 1 gram tablet 1 g PO BID #60 tabs 06/15/24 06/26/24 Rx Past Med/Surg History Problem List (Updated 06/26/24 @ 21:21 by Miya Gotti PA-C) Sacral back pain Infection associated with indwelling ureteral stent (Acute) Hematuria (Acute) Acute UTI (urinary tract infection) (Acute) Acute left flank pain (Acute) Complicated urinary tract infection (Acute) Protein malnutrition Bilateral hydronephrosis Chronic indwelling Cobb catheter (Acute) Nephrolithiasis Urinary retention Calculus of left kidney Morbid obesity Atrial fibrillation (Acute) Encounter for pre-operative examination Deep vein thrombosis Hypertension Hyperlipidemia Asthma Osteoarthritis of knees, bilateral GERD (gastroesophageal reflux disease) (Acute) Chronic GERD Medical History (Updated 06/26/24 @ 21:21 by Miya Gotti PA-C) History of anemia History of posterior vitreous detachment B/L History of asthma "Well controlled" Chronic indwelling Cobb catheter Hydronephrosis of left kidney Diabetes mellitus, type II Diet controlled Overactive bladder HTN (hypertension) GERD (gastroesophageal reflux disease) Hyperlipidemia Hx of vertigo Hx of cancer of uterus 2013- radiation Hx pulmonary embolism Remote hx years ago In setting of prolonged sitting/immobility during a previous hospitalization per records Urinary retention Cobb cath in place Atrial fibrillation Taking Eliquis History of home oxygen therapy Per previous charting, hx of 2L O2 IN Current fpc record makes no note of oxygen supplementation halfway resident Resides at [facility] Nontoxic thyroid nodule Hx: UTI (urinary tract infection) Recurrent Hx of sepsis Lipodermatosclerosis Chronic bronchitis 'Bronchial asthma' Acquired lymphedema "Stomach" Gets therapy/massage to manage > was complication after radiation treatment per previous PAT RN notation IBS (irritable bowel syndrome) Surgical History History of anesthesia reaction Awareness with D&C and colonoscopy History of open reduction and internal fixation (ORIF) procedure (06/2023) left femur fx Hx of cystoscopy Multiple History of cataract surgery (2020) R/L History of dilatation and curettage History of esophagogastroduodenoscopy (EGD) History of colonoscopy History of bilateral tubal ligation History of cholecystectomy Hx of hernia repair (12/2017) Ventral hernia with mesh History of tooth extraction History of cardiac cath (2010) No stents Family History Other No family history of adverse response to anesthesia Social History Smoking Status: Never smoker Second Hand Exposure: No; Do You Dip or Chew Tobacco: No; Hx Alcohol Use: No Hx Substance Use: No Preferred Language: Uzbek Communication Ability: Effective Communication Ability Comment: alert and oriented x3 - of sound mind to sign consent Visual Impairment: No Limitations Television Producer Required: No Beliefs That Will Affect Care: None Current Living Situation: [facility] Current Living Situation Comment: [facility] Feels Safe at Home: Yes Assistive Devices: Glasses Review of Systems Review of Systems: At least ten systems reviewed and negative except as noted in the HPI. Physical Exam Physical Exam: General Appearance: WD/WN, vitals as above, NAD, sitting up in bed, pleasant, conversing easily, obese Head: normocephalic, atraumatic Eyes: normal inspection, PERRL, conjunctivae normal, anicteric sclerae ENT: external ear and nose normal, oropharynx normal Neck: normal visual inspection, trachea midline, no thyromegaly Respiratory: normal respiratory effort, lungs clear to auscultation, no wheeze, rales, rhonchi. No accessory muscle use Cardiovascular: regular rate, rhythm, normal peripheral pulses, trace BLE edema Chest: normal inspection of chest Abdomen/GI: normal bowel sounds, soft, + LLQ and suprapubic TTP, no hepatosplenomegaly : Cobb collection bag with red urine, no clots visualized Extremities/Musculoskeletal: no cyanosis or clubbing, extremities motor strength 5/5 Neurologic: PERRL, EOMI, accommodation nl, no face palsy, no dysarthria, CN's II-XI intact bilaterally and moves all extremities Psychiatric: A+Ox3, euthymic affect Skin: normal color, warm/dry, sacral area with dressing - removed to show erythematous area, no open wounds noted, TTP Results & Data Results & Data Vital Signs (Past 12 Hours) Vital Signs Temp Pulse Pulse Resp BP BP Pulse Ox 06/26/24 16:06 70 06/26/24 15:00 69 18 138/105 H 95 06/26/24 13:00 65 18 122/64 96 06/26/24 11:29 73 06/26/24 11:22 36.9 C 72 18 131/71 96 06/26/24 11:22 36.9 C 61 16 137/69 96 O2 Del Method 06/26/24 16:06 06/26/24 15:00 Room Air 06/26/24 13:00 Room Air 06/26/24 11:29 06/26/24 11:22 Room Air 06/26/24 11:22 Laboratory Results Short CBC 06/26/24 Range/Units 12:10 WBC 8.14 (4.8-10.8) K/ul Hgb 11.7 L (12.0-16.0) g/dl Hct 37.4 (37.0-47.0) % Plt Count 248 (130-400) K/uL BMP 06/26/24 12:10 Sodium 140 Potassium 3.6 Chloride 104 Carbon Dioxide 30 BUN 8 Creatinine 0.32 L Glucose 102 H Calcium 8.7 Liver Function 06/26/24 Range/Units 12:10 Total Bilirubin 0.3 (0.2-1.0) mg/dl AST 7 L (13-39) U/L ALT 5 L (7-52) U/L Alkaline Phosphatase 106 H (34-104) U/L Albumin 2.8 L (3.4-5.0) gm/dl Urine 06/26/24 Range/Units 11:13 Urine Color Red Urine Appearance Turbid A (Clear) Urine pH 6.0 (4.5-7.5) Ur Specific [place] 1.005 (1.000-1.030) Urine Protein 2+ H (Negative) Urine Glucose (UA) Negative (Negative) Diagnostic Findings Abdomen/Pelvis CT 06/26/24 14:10 CT abd pelvis wo con CLINICAL HISTORY: left flank pain, hematuria, UTI TECHNIQUE: Helical axial images of the abdomen and pelvis were obtained. Automated dose lowering techniques and/or adjustment according to patient size were utilized for this exam. This exam was performed without intravenous contrast. CT DOSE: 1423.01 mGy.cm COMPARISON: Comparison is made to CT abdomen pelvis 06/08/2024 FINDINGS: Lower chest: Bibasilar atelectasis versus scarring is seen. Cardiomegaly is seen with biatrial enlargement. Liver: Unremarkable. No focal lesions are seen. Gallbladder and biliary tree: Patient is status post cholecystectomy. No intra- or extrahepatic biliary ductal dilation. Pancreas: Unremarkable, no focal lesions. Spleen: Calcifications are noted in the spleen compatible with prior granulomatous disease. Adrenals: Right adrenal gland appears is seen. Kidneys and ureters: Left ureteral stent is seen. Left exophytic cysts are seen. Nonobstructive stones are seen on the right. Bladder: Limited evaluation due to underdistention. Reproductive organs: Incidentally noted, there is a Cobb catheter in the vagina. Bowel: Diverticulosis is seen without evidence of diverticulitis. Lymph nodes Retroperitoneal: Unremarkable. Pelvic: Unremarkable. Mesenteric: Unremarkable. Peritoneum: Normal. Vessels: Atherosclerotic calcifications are seen. Abdominal wall: Unremarkable. Bones: Orthopedic hardware in the left femur is seen. Multilevel degenerative changes and compression deformities are seen. IMPRESSION: Left ureteral stent is seen. No acute abnormalities. Nonobstructive stones are seen in the right collecting system. ACT 112: Negative or not required by law. Electronically signed by: Trav Gallegos M.D. 06/26/2024 4:04 PM Chest X-Ray 06/26/24 16:24 XR chest 1V portable CLINICAL HISTORY: hematuria, wheezing TECHNIQUE: Single frontal radiograph of the chest was obtained. Comparison: Comparison is made to chest radiograph 06/08/2024 FINDINGS: Exam is limited by underpenetration. Cardiomegaly is noted. The aortic arch is calcified. The lungs are clear. Small left effusion is seen. IMPRESSION: No acute chest disease. ACT 112: Negative or not required by law. Electronically signed by: Trav Gallegos M.D. 06/26/2024 4:44 PM Code Status & VTE Plan VTE Prophylaxis Plan VTE Prophylaxis will be ordered: Yes Supervising Physician Co-Signing Physician Notes 78-year-old lady with PMH of recurrent UTI, bilateral hydronephrosis, chronic indwelling Cobb catheter, calculus of left kidney status post left ureteral stent, HTN, HLD, A-fib on Eliquis presented to the ED because of hematuria since yesterday. Admitting CTAP reviewed. Patient denies fever/sore throat/chest pa in/abdominal pain. Patient reports cough at her baseline. Follow admitting urine culture, continue with Zosyn. Cobb cath exchanged in ED. Hold Eliquis given hematuria, consult urology. On exam: GENERAL: Alert and oriented x3. NAD, on RA. Obese +. HEENT: No pallor, no icterus. Pupils equal, round and reactive to light. Oral mucosa moist. NECK: No JVD, no neck masses. HEART: S1 and S2 heard. Regular rate and rhythm. No murmur, no gallop. RESPIRATORY SYSTEM: Normal AP diameter. No accessory muscle use. No wheezing, no crackles. ABDOMEN: Soft, bowel sounds present, nontender, + distention. CENTRAL NERVOUS SYSTEM: No facial droop. Speech is clear. Obeys simple commands. Moves extremities. EXTREMITIES: No edema, no erythema seen. Bloody urine collection noted in urinary bag. cobb cath present. I have seen and examined the patient and have discussed the case with the provider above. I agree with the assessment and plan as stated. Time spent: 25 min. (5) Atrial fibrillation Atrial fibrillation type: unspecified Qualified Code(s): I48.91 - Unspecified atrial fibrillation
[2024-06-26] MEDS: PIPERACILLIN/TAZOBACTAM 4.5 GM/100 ML BAG IV ONE (17:41)
--- OUTSIDE RECORDS SUMMARY | 2024-06-26 17:58 | External Medical Summary | Summary of Care ---
Author Name Unknown Organization [facility] Address [address] [place] [address] Phone [phone] Care Team Providers Care Energy Efficient Site Manager Name Role Phone Danielle Angeles MD Primary Care Provider [phone] Encounter Details Date Type Department Care Team (Late st Contact Info) Description 06/23/2024 Telephone [facility] [address] [place] [address] Pavan Mckeon MD [address] [place] [address] Allergies Active Allergy Reactions Criticality Noted Date Comments Chas Inhibitors 11/01/2007 cough Doxycycline 02/18/1999 eyes swollen Sulfa Antibiotics 02/18/1999 wierd documented as of this encounter (statuses as of 06/23/2024) Medications Medication Sig Dispensed Refills Start Date [...] in the morning. 30 Tablet 10/12/2023 Active Escitalopram Oxalate 10 MG Oral [...] by mouth twice per day 60 Capsule 01/12/2024 Active Nystatin 887942 UNIT/GM External Cream Apply 1 Application topically [...] MOUTH TWICE DAILY FOR BLADDER 60 Tablet 02/04/2024 Active Eliquis 5 MG Oral Tablet (Apixaban)Indicatio ns:Paroxysmal atrial fibrillation (HCC) TAKE ONE TABLET BY MOUTH TWICE DAILY. *A-FIB* 60 Tablet 11 02/10/2024 Active Fluticasone Propionate 50 MCG/ACT Nasal Suspension (Flonase) Administer 2 Sprays into each nostril in the morning. 16 g 03/10/2024 Active Nitrofurantoin Monohyd Macro 100 MG Oral Capsule (Macrobid)Indicatio ns:Bacteriuria Take 1 Capsule by mouth in the morning and 1 Capsule before bedtime. 10 Capsule 04/13/2024 Active Mirtazapine 15 MG Oral Tablet (Remeron)Indication s:Current moderate episode of major depressive disorder, unspecified whether recurrent (HCC) TAKE 1 TABLET BY MOUTH AT BEDTIME *MOOD DISORDER* 28 Tablet 5 05/27/2024 Active Tamsulosin HCl 0.4 MG Oral Capsule (Flomax) Take 1 Capsule by mouth every night at bedtime. 06/14/2024 Active Docusate Sodium 100 MG Oral Capsule (Colace)Indications :Slow transit constipation Take 2 Capsules by mouth every night at bedtime. 180 Capsule 3 06/19/2024 Active documented as of this encounter (statuses as of 06/23/2024) Active Problems Problem Noted Date Diagnosed Date [...] as of this encounter (statuses as of 06/23/2024) Resolved Problems Problem Noted Date Diagnosed Date [...] 10/20/2013 Overview: ICD-10 update of inactive term custodial current use of ant icoagulant therapy 03/17/2011 [...] as of this encounter (statuses as of 06/23/2024) Immunizations Name Administration Dates Next Due Pneumococcal Conjugate Vacc, 13 Valent (Prevnar) 08/20/2015 Pneumococcal Polysaccharide PPV23 (Pneumovax) 11/27/2011 Seasonal Influenza Vac., MDV , IM, 0.5 mL (Fluzone) 07/02/2014,06/05/2013,05/23/2012,06/11,06/11/2010,06/05/2009,07/04/2008 ,09/26/2007,07/15/2006 Seasonal Influenza, PF, 6 M & above, IM , (FluLaval or Fluzone) 06/01/2020,06/16/2019,09/29/2018 Seasonal Influenza, Quadriva lent Hd (Fluzone Hd) 10/16/2022 Seasonal Influenza, Quadriva lent, No Preserve, IM 05/26/2017,07/14/2016,08/20/2015 TDAP, Age 7 and older, IM (Adacel) [...] encounter Miscellaneous Notes * Telephone Encounter - Pavan Mckeon MD - 06/23/2024 10:22 AM EDT Notified by home of productive cough, wheeze. CXR ordered. documented in this encounter Plan of Treatment Upcoming Encounters Date Type Department Care Team (Late st Contact Info) Description 07/20/2024 10:00 AM EST [facility] [address] [facility] [phone] [facility] [address] [phone] 09/28/2024 2:00 PM EST Office Visit [facility] [address] [place] [address] Pavan Mckeon MD [address] [facility] [place] [phone] Scheduled Orders Name Type Priority Associated Diagnoses Orde r Schedule XR CHEST 2 VIEWS Medical Imaging Routine Acute cough Wheeze Expected: 06/23/2024, Expires: 07/24/2025 Health Maintenance Due Date Last Done Comments [...] as of this encounter Visit Diagnoses Diagnosis Acute cough- Primary Wheeze Wheezing documented in this encounter Advance Directives * Full Code (Latest Code Status on File) Date Activated Date Inactivated Comments 07/24/2014 7:59 AM 07/26/2014 10:17 PM This orde r reflects the patients wishes and were consensually agreed upon. Care Teams Energy Efficient Site Manager Relationship Specialty Start Date End Date Danielle Angeles MD [address] [place] [address] PCP - General Internal Medicine 03/26/24 documented as of this encounter
--- OUTSIDE RECORDS SUMMARY | 2024-06-26 17:58 | External Medical Summary | Summary of Care ---
Author Name Unknown Organization [facility] Address [address] [place] [address] Phone [phone] Care Team Providers Care Blood Bank Technician Name Role Phone Danielle Angeles MD Primary Care Provider [phone] Reason for Visit * Reason Onset Date Comments Medication Question 06/15/2024 Encounter Details Date Type Department Care Team (Late st Contact Info) Description 06/15/2024 Telephone [facility] [address] [place] [address] Pavan Mckeon MD [address] [place] [address] Medication Question Allergies Active Allergy Reactions Criticality Noted Date Comments Chas Inhibitors 11/01/2007 cough Doxycycline 02/18/1999 eyes swollen Sulfa Antibiotics 02/18/1999 wierd documented as of this encounter (statuses as of 06/15/2024) Medications Medication Sig Dispensed Refills Start Date [...] day 60 Capsule 5 01/12/2024 Active Nystatin 262599 UNIT/GM External Cream Apply 1 Application topically [...] mouth every night at bedtime. 06/14/2024 Active documented as of this encounter (statuses as of 06/15/2024) Active Problems Problem Noted Date Diagnosed Date [...] as of this encounter (statuses as of 06/15/2024) Resolved Problems Problem Noted Date Diagnosed Date [...] 10/20/2013 Overview: ICD-10 update of inactive term residential current use of ant icoagulant therapy 03/17/2011 [...] as of this encounter (statuses as of 06/15/2024) Immunizations Name Administration Dates Next Due Pneumococcal Conjugate Vacc, 13 Valent (Prevnar) 08/20/2015 Pneumococcal Polysaccharide PPV23 (Pneumovax) 11/27/2011,08/08/2002,10/18/1992 Seasonal Influenza Vac., MDV , IM, 0.5 mL (Fluzone) 07/02/2014,06/05/2013,05/23/2012,06/11,06/11/2010,06/05/2009,07/04/2008 ,09/26/2007,07/15/2006,08/04/2005,07/15,06/28/2002,07/07/2001, 0,06/30/1999 Seasonal Influenza Virus Vac cine, Unspecified Formulation 06/27/1998,06/29/1997 Seasonal Influenza, PF, 6 M & above, IM , (FluLaval or Fluzone) 06/01/2020,06/16/2019,09/29/2018 Seasonal Influenza, Quadriva lent Hd (Fluzone Hd) 10/16/2022 Seasonal Influenza, Quadriva lent, No Preserve, IM 05/26/2017,07/14/2016,08/20/2015 TD - Tetanus/Diptheria (ADULT) 04/02/2000 TDAP, Age 7 and older, IM (Adacel) [...] encounter Miscellaneous Notes * Telephone Encounter - Tatyana Montgomery RN - 06/15/2024 3:56 PM EDT Provider to address: JUAN completed for patient discharged from [facility] 06/14/2024 for UTI. FYI - Per discharge summary, patient to continue home Macrobid after discharge. Patient resides at [facility]. Per staff, patient has not been on this. Previous script looks to be for 10 days only. Also noted to continue home Oxybutynin, patient has not been on this either. Message sent to [facility] Nurse Coordinator. Received message that [facility]salomep[facility]rez hospitalist discontinued Macrobid. She follows with [facility] and they will contact her for an appt. Hospitalist will amend discharge summary and Nurse Coordinator will fax to [facility]. They will send scripts for methenamine and oxybutynin. Updated message - Hospitalist has decided to hold Oxybutynin for now and follow up if it is needed. Reason for Call: Medication Question Contact: Telephone Call Contact Type: Advice Provider In-Basket: No Outcome: See above Face to face time spent with Patient (minutes): 0 Total Time including non face to face (minutes): 20 documented in this encounter Plan of Treatment Upcoming Encounters Date Type Department Care Team (Late st Contact Info) Description 06/19/2024 2:20 PM EDT Office Visit [facility] [address] [place] [phone] Pavan Mckeon MD [address] [place] [address] 09/28/2024 2:00 PM EST Office Visit [facility] [address] [place] [facility] [place] [address] Pavan Mckeon MD [address] [place] [address] Health Maintenance Due Date Last Done Comments [...] and were consensually agreed upon. Care Teams Blood Bank Technician Relationship Specialty Start Date End Date Danielle Angeles MD [address] [facility] [place] [address] PCP - General Internal Medicine 03/26/24 documented as of this encounter
--- OUTSIDE RECORDS SUMMARY | 2024-06-26 17:58 | External Medical Summary | Summary of Care ---
Author Name Unknown Organization [facility] Address [address] [place] [address] Phone [phone] Care Team Providers Care Refinery Operator Assistant Name Role Phone Danielle Angeles MD Primary Care Provider [phone] Reason for Visit * Reason Onset Date Comments Hospital Follow-Up Hospital Follow-Up 06/19/2024 Encounter Details Date Type Department Care Team (Late st Contact Info) Description 06/19/2024 2:20 PM EDT Telemedicine [facility] [address] [place] [address] Pavan Mckeon MD [address] [place] [address] Recurrent UTI*; Other hydronephrosis; Osorio catheter in place; Hospital discharge follow-up; Prediabetes; Paroxysmal atrial fibrillation (HCC); Slow transit constipation Allergies Active Allergy Reactions Criticality Noted Date Comments Chas Inhibitors 11/01/2007 cough Doxycycline 02/18/1999 eyes swollen Sulfa Antibiotics 02/18/1999 wierd documented as of this encounter (statuses as of 06/19/2024) Medications Medication Sig Dispensed Refills Start Date End Date Status Meclizine HCl 25 MG Oral Tablet (Antivert) Take 1 Tablet by mouth 3 times a day as needed for Dizziness. 30 Tablet 1 01/20/2023 Active Ipratropium-Albut vita 0.5-2.5 (3) MG/3ML Inhalation Solution (Duoneb) Inhale [...] Active Atorvastatin Calcium 80 MG Oral Tablet (Lipitor)Indicati ons:Dyslipidemia, goal LDL below 100 Take 1 Tablet by mouth in the morning. 30 Tablet 10/12/2023 Active Escitalopram Oxalate 10 MG Oral Tablet (Lexapro)Indicati ons:Current moderate episode of major depressive disorder, unspecified whether recurrent (HCC) Take 1 Tablet by mouth in the morning. 30 Tablet 10/12/2023 Active Famotidine 20 MG Oral Tablet (Pepcid)Indicatio ns:Gastroesophage al reflux disease with esophagitis, unspecified whether hemorrhage Take 1 Tablet by mouth 2 times a day as needed for Heartburn. 60 Tablet 10/12/2023 Active Metoprolol Succinate ER 50 MG Oral Tablet Extended Release 24 Hour (toPROL XL)Indications:Pa roxysmal atrial fibrillation (HCC),HTN, goal below 130/80 Take 1 Tablet by mouth in the morning and 1 Tablet before bedtime. 60 Tablet 10/12/2023 Active Spironolactone 50 MG Oral Tablet (Aldactone)Indica tions:HTN, goal below 130/80 Take 1 Tablet by mouth in the morning. 30 Tablet 10/12/2023 Active Senna 8.6 MG Oral CapsuleIndication s:Slow transit constipation Take 2 Capsules by mouth every night at bedtime. 60 Capsule 10/12/2023 Active Cranberry 400 MG Oral CapsuleIndication s:Recurrent UTI Take 1 Capsule by mouth daily at noon. 30 Capsule 10/12/2023 Active Acetaminophen 500 MG Oral Tablet (Tylenol)Indicati ons:Compression fracture of lumbar vertebra with routine healing, [...] 11/23/2023 Active Sucralfate 1 GM Oral Tablet (Carafate)Indicat ions:Gastroesopha geal reflux disease with esophagitis, unspecified whether hemorrhage TAKE 1 TABLET BY MOUTH FOUR TIMES DAILY WITH MEALS AND AT BEDTIME FOR GERD 120 Tablet 10 12/31/2023 Active Lansoprazole 30 MG Oral Capsule Delayed Release (Prevacid)Indicat ions:Gastroesopha geal reflux disease with esophagitis, unspecified whether hemorrhage Take 1 capsule by mouth twice per day 60 Capsule 5 01/12/2024 Active Nystatin 251223 UNIT/GM External Cream Apply 1 Application topically to affected area in the morning and 1 Application before bedtime. To affacted area for two weeks.. 90 g 5 01/27/2024 Active traMADol HCl 50 MG Oral Tablet (Ultram)Indicatio ns:Compression fracture of lumbar vertebra with routine healing, unspecified lumbar vertebral level, subsequent encounter,Closed displaced oblique fracture of shaft of left femur with routine healing, subsequent encounter Take 1 Tablet by mouth every 8 hours as needed for Pain, Severe. 90 Tablet 01/27/2024 Active Methenamine Hippurate 1 GM Oral Tablet (Hiprex)Indicatio ns:Recurrent UTI TAKE 1 TABLET BY MOUTH TWICE DAILY FOR BLADDER 60 Tablet 5 02/04/2024 Active Eliquis 5 MG Oral Tablet (Apixaban)Indicat ions:Paroxysmal atrial fibrillation (HCC) TAKE ONE TABLET BY MOUTH TWICE DAILY. *A-FIB* 60 Tablet 11 02/10/2024 Active Fluticasone Propionate 50 MCG/ACT Nasal Suspension (Flonase) Administer 2 Sprays into each nostril in the morning. 16 g 5 03/10/2024 Active Nitrofurantoin Monohyd Macro 100 MG Oral Capsule (Macrobid)Indicat ions:Bacteriuria Take 1 Capsule by mouth in the morning and 1 Capsule before bedtime. 10 Capsule 04/13/2024 Active Mirtazapine 15 MG Oral Tablet (Remeron)Indicati ons:Current moderate episode of major depressive disorder, unspecified whether recurrent (HCC) TAKE 1 TABLET BY MOUTH AT BEDTIME *MOOD DISORDER* 28 Tablet 5 05/27/2024 Active Tamsulosin HCl 0.4 MG Oral Capsule (Flomax) Take 1 Capsule by mouth every night at bedtime. 06/14/2024 Active Docusate Sodium 100 MG Oral Capsule (Colace)Indicatio ns:Slow transit constipation Take 2 Capsules by mouth every night at bedtime. 180 Capsule 3 06/19/2024 Active Docusate Sodium 100 MG Oral Capsule (Colace)Indicatio ns:Slow transit constipation Take 2 Capsules by mouth every night at bedtime. 60 Capsule 10/12/2023 Discontinue d(Refill) documented as of this encounter (statuses as of 06/19/2024) Active Problems Problem Noted Date Diagnosed Date [...] as of this encounter (statuses as of 06/19/2024) Resolved Problems Problem Noted Date Diagnosed Date [...] 10/20/2013 Overview: ICD-10 update of inactive term [facility] current use of ant icoagulant therapy 03/17/2011 [...] as of this encounter (statuses as of 06/19/2024) Immunizations Name Administration Dates Next Due Pneumococcal [...] No 07/24/2014 documented as of this encounter Progress Notes * Pavan Mckeon MD - 06/19/2024 3:33 PM EDT Patient location: HOME. I was in a hospital or clinic location. After connecting through [employer],patient was verified with two unique identifiers. Patient (or authorized legal sales representative publications) was then informed that this was a Telemedicine visit and being conducted confidentially over secure lines. Methods to assure confidentiality were taken. Patient acknowledged consent and understanding of pr ivacy and security of the Telemedicine visit. The patient agreed to participate. TeleMed visit with patient. She is bed-bound since she had a previous hip fracture and is unable tosafely get out of bed on her own. She is currently at when would house. Even with assistance they typically do not transfer her to chairs. When she has office visit she is brought in on a stretcher with special arrangements for transportation which gets very expensive. She appreciates the ability to do telemedicine. The visit was set up due to recent admission to [facility] 06/08/24 - 06/14/24. She was admitted for a recurrent urinary tract infection. She has a chronic indwelling Osorio catheter as she is unable to get out of bed. She also has a stone in the left kidney and evidence for bilateral hydronephrosis. She has been following with [facility] urology. Is scheduled to have the stent replaced sometime in July. In the emergency department, her urinalysis was suggestive of UTI. She had mixed organisms on culture. She was treated with IV cefepime for 7 days. Urology saw the patient in consultation. No surgical intervention needed during this admission. Was recommended she continue Flomax withPyridium as needed. May use tramadol if needed for severe pain. It was also recommended she stay onmethenamine. Patient states she has talked on the phone to Urology and she is waiting to hear aboutthe timing of her next visit. She has been having some back pain but no fever. She is seen by home health once per week. She getssome therapy through that service as well as them monitoring her vital signs and changing her catheter. Patient is requesting to increase her stool softener. She used to be on 2 docusate daily and now she gets 1 every other day. She believes her stools have been more constipated and would like to change back. During her last telemedicine visit we had discussed getting labs but the lab studies were all completed with recent hospitalization. Her hemoglobin A1c was 6. She is lying in bed during the visit. She is in no acute distress. She is alert and oriented. She believes she may benefit from skilled care but feels that she would not be able to afford it. Follow up with urology. Continue current meds Plan on repeat visit in 4-6 weeks. 30 min with pt, chart review and documentation Pavan Mckeon MD documented in this encounter Plan of Treatment Upcoming Encounters Date Type Department Care Team (Late st Contact Info) Description 09/28/2024 2:00 PM EST Office Visit [facility] [address] [place] [facility] [place] [address] Pavan Mckeon MD [address] [place] [facility] [facility] [place] [address] Health Maintenance Due Date Last Done Comments [...] 05/21/2022, Additional history exists Albumin/Creatinine Ratio 04/15/2026 08 023, 08/25/2019, 02/01/2019, Additional history exists Pneumococcal [...] as of this encounter Visit Diagnoses Diagnosis Recurrent UTI- Primary Urinary tract infection, site not specified Other hydronephrosis Osorio catheter in place Other postprocedural status Hospital discharge follow-up Other follow-up examination Prediabetes Other abnormal glucose Paroxysmal atrial fibrillation (HCC) Atrial fibrillation Slow transit constipation documented in this encounter Advance Directives * Full Code (Latest Code Status on File) Date Activated Date Inactivated Comments 07/24/2014 7:59 AM 07/26/2014 10:17 PM This orde r reflects the patients wishes and were consensually agreed upon. Care Teams Refinery Operator Assistant Relationship Specialty Start Date End Date Danielle Angeles MD [address] [place] [address] PCP - General Internal Medicine 03/26/24 documented as of this encounter
--- OUTSIDE RECORDS SUMMARY | 2024-06-26 17:58 | External Medical Summary | Summary of Care ---
Author Name Unknown Organization [facility] Address [address] [place] [address] Phone [phone] Care Team Providers Care Case Supervisor Name Role Phone Danielle Angeles MD Primary Care Provider [phone] Reason for Visit * Reason Onset Date Comments Advice 06/07/2024 Encounter Details Date Type Department Care Team (Late st Contact Info) Description 06/07/2024 Telephone [facility] [address] [place] [address] Danielle Angeles MD [address] [place] [address] Advice Allergies Active Allergy Reactions Criticality Noted Date [...] day 60 Capsule 5 01/12/2024 Active Nystatin 999437 UNIT/GM External Cream Apply 1 Application topically [...] 10/20/2013 Overview: 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 She let me know that she currently does not want to schedule anything until she is out of the hospital. I told her that once she is available and able to schedule that she can call in. * Telephone Encounter - Pavan Mckeon MD - 06/09/2024 7:27 AM EDT Sorry for the delay. For a visit, since I have not seen her in a long time and there is a lot to catch up on, I suggested another visit in a short interval. Please set up for video visit 06/26/24 at 3:00 PM. It is very difficult for her travel and expensive as she is responsible for costs. Would like to see if we can have labs drawn at her [facility]. She does have a home health nurse involved - through [facility]. Not sure if we can contact them and if they are able to get labs. I have ordered them if we can determine a way to get them arranged. If there is no way to get them drawn at her [facility], she does follow with [facility] and will need to be at their office in person occasionally for procedures. We could get her the orders to take to one of those visits. * Telephone Encounter - Jessica Rodríguez LPN - 06/08/2024 7:15 PM EDT I did not see an video appointment in the chart for today?? Please advise * Telephone Encounter - Gretchen Arteaga OSA - 06/07/2024 11:15 AM EDT Patient called she had a video visit with Dr. Mckeon and she said normally she will get an after visit summary in her mychart, but she does not see one. She said she relies on them because of hermemory. She said Dr. Mckeon had mentioned about getting labs done and there are no orders in the chart and some other things that she can't remember. Please advise. documented in this encounter Plan of Treatment Upcoming Encounters Date Type Department Care Team (Late st Contact Info) Description 06/19/2024 2:20 PM EDT Office Visit [facility] [address] [facility] [place] [address] Pavan Mckeon MD [address] [facility] [id number] 09/28/2024 2:00 PM EST Office Visit [facility] [address] [place] [address] Pavan Mckeon MD [address] [place] [address] Scheduled Orders Name Type Priority Associated Diagnoses Orde r Schedule CBC WITH WBC DIFFERENTIAL Lab Routine Paroxysmal atrial fibrillation (HCC) Other iron deficiency anemia Encounter for long-term (current) use of medications Expected: 06/09/2024 (Approximate), Expires: 06/09/2025 VITAMIN B12 Lab Routine Encounter for long-term (current) use of medications Expected: 06/09/2024 (Approximate), Expires: 06/09/2025 MAGNESIUM Lab Routine Encounter for long-term (current) use of medications Expected: 06/09/2024 (Approximate), Expires: 06/09/2025 COMPREHENSIVE METABOLIC PANEL Lab Routine HTN, goal below 130/80 Expected: 06/09/2024 (Approximate), Expires: 06/09/2025 TSH WITH FREE T4 IF INDICATED Lab Routine Type 2 diabetes mellitus with hemoglobin A1c goal of less than 8.0% (HCC) Expected: 06/09/2024 (Approximate), Expires: 06/09/2025 FERRITIN Lab Routine Other iron deficiency anemia Expected: 06/09/2024 (Approximate), Expires: 06/09/2025 HEMOGLOBIN A1C Lab Routine Type 2 diabetes mellitus with hemoglobin A1c goal of less than 8.0% (HCC) Expected: 06/09/2024 (Approximate), Expires: 06/09/2025 Health Maintenance Due Date Last Done Comments [...] as of this encounter Visit Diagnoses Diagnosis Other iron deficiency anemia- Primary Paroxysmal atrial fibrillation (HCC) Atrial fibrillation Prediabetes Other abnormal glucose Type 2 diabetes mellitus with hemoglobin A1c goal of less than 8.0% (HCC) HTN, goal below 130/80 Unspecified essential hypertension Encounter for long-term (current) use of medications Encounter for long-term (current) use of other medications documented in this encounter Advance Directives * Full Code (Latest Code Status on File) Date Activated Date Inactivated Comments 07/24/2014 7:59 AM 07/26/2014 10:17 PM This orde r reflects the patients wishes and were consensually agreed upon. Care Teams Case Supervisor Relationship Specialty Start Date End Date Danielle Angeles MD [address] [place] [address] PCP - General Internal Medicine 03/26/24 documented as of this encounter
--- OUTSIDE RECORDS SUMMARY | 2024-06-26 17:59 | External Medical Summary | Summary of Care ---
Author Name Unknown Organization [facility] Address [address] [place] [address] Phone [phone] Care Team Providers Care Vehicle Fare Collector Name Role Phone Danielle Angeles MD Primary Care Provider [phone] Reason for Visit * Reason Onset Date Comments Medication Question 06/15/2024 Encounter Details Date Type Department Care Team (Late st Contact Info) Description 06/15/2024 Telephone [facility] [address] [place] [address] Pavan Mckeon MD [address] [place] [address] Medication Question Allergies Active Allergy [...] day 60 Capsule 5 01/12/2024 Active Nystatin 093192 UNIT/GM External Cream Apply 1 Application topically [...] 10/20/2013 Overview: ICD-10 update of inactive term [facility] current use of ant icoagulant therapy 03/17/2011 [...] address: JUAN completed for patient discharged from [facility] 06/14/2024 for UTI. FYI - Per discharge summary, patient to continue home Macrobid after discharge. Patient resides at [facility]. Per staff, patient has not been on this. Previous script looks to be for 10 days only. Also noted to continue home Oxybutynin, patient has not been on this either. Message sent to [facility] Nurse Coordinator. Received message that Johnsalomepérez hospitalist discontinued Macrobid. She follows with [facility] and they will contact her for an appt. Hospitalist will amend discharge summary and Nurse Coordinator will fax to [facility]. They will send scripts for methenamine and [...] Description 06/19/2024 2:20 PM EDT Office Visit [facility] [address] [place] [address] Pavan Mckeon MD [address] [place] [address] 09/28/2024 2:00 PM EST Office Visit [facility] [address] [place] [facility] [place] [address] Pavan Mckeon MD [address] [place] [address] Health Maintenance Due Date Last Done Comments [...] and were consensually agreed upon. Care Teams Vehicle Fare Collector Relationship Specialty Start Date End Date Danielle Angeles MD [address] [place] [facility] [place] [address] PCP - General Internal Medicine 03/26/24 documented as of this encounter
--- OUTSIDE RECORDS SUMMARY | 2024-06-26 17:59 | External Medical Summary | Summary of Care ---
Author Name Unknown Organization [facility] Address [address] [place] [address] Phone [phone] Care Team Providers Care Air Drier Name Role Phone Danielle Angeles MD Primary Care Provider Reason for Visit * Reason Onset Date Comments Hospital Follow-Up 06/15/2024 JUAN ([facility]) Encounter Details Date Type Department Care Team (Late st Contact Info) Description 06/15/2024 Telephone [facility] [address] [place] [address] Tatyana Montgomery, MALIK Hospital Follow-Up (JUAN ([facility])) Allergies Active Allergy Reactions Criticality Noted Date [...] day 60 Capsule 5 01/12/2024 Active Nystatin 994237 UNIT/GM External Cream Apply 1 Application topically [...] with routine healing 07/08/2023 Recurrent UTI 07/08/[address] 07/08/2023 Current moderate episode [...] 10/20/2013 Overview: 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 Transitions of Care Note Reason for Referral:Recent Admission Phone visit for follow up: JUAN Admitted to: [facility], Date: 06/08/2024 Discharged to: [facility], Date: 06/14/2024 Diagnosis driving hospitalization: Urinary Tract Infection Source/Contact: Other Nursing staff - Destiny SUBJECTIVE Consent: Verbal consent for review of hospital discharge: Yes REVIEW OF SYSTEMS Patient/Other Reports: Current patient/caregiver problems or concerns: States patient is doing well. No concerns. CV: Denies problems Pulmonary: Denies problems Chills/Sweats/Fever:Denies chills/sweats Denies fever Appetite:Denies problems such as nausea, vomiting, burning, decreased appetite Current diet: Heart Healthy Bowel: denies problems Bladder: ostomy/indwelling catheter: Cobb, tea color urine Wound (If applicable): sacral wound care Pain:Denies Sleep:Denies problems FUNCTIONAL STATUS: ADL'S: Needs Assistance With:All ADL's as pt is completely dependent IADL'S: Needs Assistance With:Grocery Shopping, Cooking food, Routine Housework, and Taking medications Cognitive and Mental Health: denies problems, alert and oriented x 3, and able to communicate, understand instructions, process information. MEDICATION RECONCILIATION Medications: Discharge med list reviewed with patient or caregiver Destiny Wang unable to confirm new medications until they come from the pharmacy later today. ASSESSMENT Medication Risk Assessment: No risks identified Did patient fail outpatient treatment? No Discharge instructions available for review? Yes PLAN Symptom Monitoring Interventions:Member/caregiver education - signs and symptoms to contact PrimaryCare (DO NOT DELETE-Three can symptoms patient is to report to PCP) 1. Chest Pain/SOB 2. Fever/chills 3. Abdominal pain Supervisor Phosphatic FertilizerChicken Cleaner of Care interventions/Action Plan: 5 - 7 day follow-up with PCP in place - Date: PCP appointment 06/19/2024 Educated on role of JUAN completed with patient/caregiver. Educated patient/caregiver on patient right to have input on JUAN plan of care. Verification of Home Health/DME if indicated: YES [facility] Identified Care Gaps: Yes Care Gaps closed this call: Appointment made or confirmed and Transition of Care follow-up communication Re-evaluation of Plan of Care and progress towards goals achievement: Patient education this visit: Verbal, Confirmed PCP appointment, reasons to call sooner Plan to instructed to call Primary Care Provider with change in symptoms or as needed before next follow-up, discharge needs met, verbalizes understanding and agrees with plan. Discussed medications with Felipe Booth reports patient has not been on Macrobid, or Oxybutynin. They will see new medications when they come later today. Also notified of tea-colored urine per cobb. No fevers or pain reported. On Eliquis. Message sent to [facility] Nurse Coordinator hipolito. Tatyana Montgomery, MALIK documented in this encounter Plan of Treatment Upcoming Encounters Date Type Department Care Team (Late st Contact Info) Description 06/19/2024 2:20 PM EDT [facility] [address] [facility] [address] Pavan Mckeon MD [address] [facility] [address] 09/28/2024 2:00 PM EST Office Visit [facility] [address] [facility] [address] Pavan Mckeon MD [address] [facility] [address] Health Maintenance Due Date Last Done [...] and were consensually agreed upon. Care Teams Air Drier Relationship Specialty Start Date End Date Danielle Angeles MD [address] [place] [address] PCP - General Internal Medicine 03/26/24 documented as of this encounter
--- OUTSIDE RECORDS SUMMARY | 2024-06-26 17:59 | External Medical Summary | Summary of Care ---
Author Name Unknown Organization [facility] Address [address] [place] [address] Phone [phone] Care Team Providers Care Drilling Field Operator Name Role Phone Danielle Angeles MD Primary Care Provider [phone] Reason for Visit * Reason Onset Date Comments Forms Request 06/08/2024 [facility] Encounter Details Date Type Department Care Team (Late st Contact Info) Description 06/08/[address] [facility] [address] [place] [address] Danielle Angeles MD [address] [place] [address] Forms Request ([facility]) Allergies Active Allergy Reactions Criticality Noted [...] day 60 Capsule 5 01/12/2024 Active Nystatin 716557 UNIT/GM External Cream Apply 1 Application topically [...] 10/20/2013 Overview: ICD-10 update of inactive term care home current use of ant icoagulant therapy 03/17/2011 [...] Encounter - Jessica Rodríguez LPN - 06/08/2024 6:22 PM EDT Received fax from [facility], reviewed and signed by provider, and faxed back to [facility]. Than fims into pt's chart. documented in this encounter Plan of Treatment Upcoming Encounters Date Type Department Care Team (Late st Contact Info) Description 09/28/2024 2:00 PM EST Office [facility] [address] [facility] [address] Pavan Mckeon MD [address] [facility] [address] Health Maintenance Due Date Last [...] and were consensually agreed upon. Care Teams Drilling Field Operator Relationship Specialty Start Date End Date Danielle Angeles MD [address] [place] [address] PCP - General Internal Medicine 03/26/24 documented as of this encounter
--- OUTSIDE RECORDS SUMMARY | 2024-06-26 17:59 | External Medical Summary | Summary of Care ---
Author Name Unknown Organization [facility] Address [address] [place] [address] Phone [phone] Care Team Providers Care Catering Barista Name Role Phone Danielle Angeles MD Primary Care Provider [phone] Reason for Visit * Reason Onset Date Comments Forms Request 06/08/2024 [facility] Encounter Details Date Type Department Care Team (Late st Contact Info) Description 06/08/[address] 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 documented in this encounter Plan of Treatment Upcoming Encounters Date Type Department Care Team (Late st Contact Info) Description 09/28/2024 2:[address] PM EST Office Visit [facility] [address] [facility] [place] [phone] Pavan Mckeon MD [address] [facility] [place] [id number] Health Maintenance Due Date Last Done Comments [...] and were consensually agreed upon. Care Teams Catering Barista Relationship Specialty Start Date End Date Danielle Angeles MD [address] [place] [address] PCP - General Internal Medicine 03/26/24 documented as of this encounter
--- OUTSIDE RECORDS SUMMARY | 2024-06-26 17:59 | External Medical Summary | Summary of Care ---
Author Name Unknown Organization [facility] Address [address] [place] [address] Phone [phone] Care Team Providers Care Automatic Thread Winder Name Role Phone Danielle Angeles MD Primary Care Provider [phone] Reason for Visit * Reason Onset Date Comments Hospital Follow-Up 06/15/2024 JUAN ([facility]) Encounter Details Date Type Department Care Team (Late st Contact Info) Description 06/15/2024 Telephone [facility] [address] [place] [address] Tatyana Montgomery, MALIK Hospital Follow-Up (JUAN ([facility])) Allergies Active Allergy Reactions Criticality Noted Date [...] day 60 Capsule 5 01/12/2024 Active Nystatin 310410 UNIT/GM External Cream Apply 1 Application topically [...] 10/20/2013 Overview: 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 Fever/chills 3. Abdominal pain Sediment Remediation ConsultantInpatient Auditor of Care interventions/Action Plan: 5 - 7 [...] Also notified of tea-colored urine per cobb. Typically discolored per staff. No fevers or pain reported. On Eliquis. Message sent to [facility] Nurse Coordinator to clarify meds. Tatyana Montgomery, RN documented in this encounter Plan of Treatment Upcoming Encounters Date Type Department Care Team (Late st Contact Info) Description 06/19/2024 2:20 PM EDT Office Visit [facility] [address] [place] [facility] [place] [phone] Pavan Mckeon MD [address] [facility] [place] [phone] 09/28/2024 2:00 PM EST Office Visit [facility] [address] [place] [place] [address] aPvan Mckeon MD [address] [facility] [place] [phone] Health Maintenance Due Date Last Done Comments [...] 09/28/2023, Additional history exists HbA1c 11/22/2024 11/23/2023, 080 11/2022, 05/21/2022, Additional history exists Albumin/Creatinine Ratio [...] and were consensually agreed upon. Care Teams Automatic Thread Winder Relationship Specialty Start Date End Date Danielle Angeles MD [address] [place] [facility] [place] [address] PCP - General Internal Medicine 03/26/24 documented as of this encounter
--- OUTSIDE RECORDS SUMMARY | 2024-06-26 17:59 | External Medical Summary | Summary of Care ---
Author Name Unknown Organization [facility] Address [address] [place] [address] Phone [phone] Care Team Providers Care Contour Path Tape Mill Operator Name Role Phone Danielle Angeles MD Primary Care Provider [phone] Encounter Details Date Type Department Care Team (Late st Contact Info) Description 03/09/2024 Telephone [facility] [address] [place] [address] Pavan Mckeon MD [address] [place] [address] Allergies Active Allergy Reactions Criticality [...] day 60 Capsule 5 01/12/2024 Active Nystatin 938620 UNIT/GM External Cream Apply 1 Application topically [...] DAILY. 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 Pt feels fine otherwise. No changes to meds, laundry detergent, food, etc. Requesting video visit due to transportation. Scheduled tomorrow with Dr. Angeles * Telephone Encounter - Renata Ram OSA - 03/09/2024 9:58 AM EDT Reason for patient's call: talk about patients care Caller was transferred to Melissa at the nurse line. documented in this encounter Plan of Treatment Upcoming Encounters Date Type Department Care Team (Late st Contact Info) Description 09/28/2024 2:00 PM EST Office Visit [facility] [address] [place] [facility] [place] [address] Pavan Mckeon MD [address] [facility] [phone] Health Maintenance Due Date Last Done Comments [...] and were consensually agreed upon. Care Teams Contour Path Tape Mill Operator Relationship Specialty Start Date End Date Danielle Angeles MD [address] [place] [address] PCP - General Internal Medicine 03/26/24 documented as of this encounter
--- OUTSIDE RECORDS SUMMARY | 2024-06-26 17:59 | External Medical Summary | Summary of Care ---
Author Name Unknown Organization [facility] Address [address] [place] [address] Phone [phone] Care Team Providers Care Instructional Design Manager Name Role Phone Danielle Angeles MD Primary Care Provider [phone] Reason for Visit * Reason Onset Date Comments Medication Question 06/15/2024 Encounter Details Date Type Department Care Team (Late st Contact Info) Description 06/15/2024 Telephone [facility] [address] [place] [address] Pavan Mckeon MD [address] [place] [address] Medication Question Allergies Active Allergy [...] day 60 Capsule 5 01/12/2024 Active Nystatin 265923 UNIT/GM External Cream Apply 1 Application topically [...] 10/20/2013 Overview: ICD-10 update of inactive term [facility] current use of ant icoagulant therapy 03/17/2011 [...] address: JUAN completed for patient discharged from [facility] 06/14/2024 for UTI. FYI - Per discharge summary, patient to continue home Macrobid after discharge. Patient resides at [facility]. Per staff, patient has not been on this. Previous script looks to be for 10 days only. Also noted to continue home Oxybutynin, patient has not been on this either. Message sent to [facility] Nurse Coordinator. Received message that Sarah hospitalist discontinued Macrobid. She follows with [facility] and they will contact her for an appt. Hospitalist will amend discharge summary and Nurse Coordinator will fax to [facility]. They will send scripts for methenamine and oxybutynin. Reason for Call: Medication Question Contact: Telephone Call Contact Type: Advice Provider In-Basket: No Outcome: See above Face to face time spent with Patient (minutes): 0 Total Time including non face to face (minutes): 20 documented in this encounter Plan of Treatment Upcoming Encounters Date Type Department Care Team ([facility] st Contact Info) Description 06/19/2024 2:20 PM EDT Office Visit [facility] [address] [place] [phone] Pavan Mckeon MD [address] [place] [address] 09/28/2024 2:00 PM EST Office Visit [facility] [address] [place] [facility] [place] [phone] Pavan Mckeon MD [address] [place] [address] Health Maintenance Due Date Last Done Comments [...] and were consensually agreed upon. Care Teams Instructional Design Manager Relationship Specialty Start Date End Date Danielle Angeles MD [address] [place] [address] PCP - General Internal Medicine 03/26/24 documented as of this encounter
--- NOTE | 2024-06-26 19:19 | Emergency Department Note ---
Impression & Plan Acute UTI (urinary tract infection), Hematuria, Infection associated with indwelling ureteral stent ED Provider Note NAME: NAKIA CESPEDES AGE: 78 SEX: Female INFORMANT: Patient ED PROVIDER(S): Sheldon Valdez MD CHIEF COMPLAINT: Hematuria PLAN: Disposition: Admitted Outpatient prescription management: none Referral: None MEDICAL DECISION MAKING: Patient presented because of hematuria. Urinalysis was concerning for infection. There was a indwelling stent and flank pain she underwent CT imaging. CT blood work was unremarkable. CT imaging revealed presence of an indwelling ureteral stent. Patient had Osorio catheter changed and urine culture sent from new sample. Discussed treatment options with ED pharmacist. Patient has had multiple infections in the recent past including E. coli as well as Pseudomonas. Patient was recommended to be treated with IV Zosyn. Consultation was made with the [facility] service. Patient was evaluated in the ER and admitted for further management Care/management discussed with: land acquisition manager Level of care consideration(s): After review of the information above and other included data, I feel the patient requires escalation of care to admission for IV antibiotics Triage Nursing notes: reviewed and agree them. Vital Signs: reviewed and remarkable for no significant abnormalities Additional History obtained from: none Chronic Medical/Social Conditions affecting care: Indwelling Osorio catheter, diabetes Prior/ Outside/ External records reviewed: none Differential Diagnosis: Complication of indwelling stent, renal colic, UTI, appendicitis, diverticulitis, mesenteric ischemia, infections, inflammatory bowel disease, as well as other pathologies. Diagnostics, independently interpreted by me: ECG: none Cardiac Monitoring: Cardiac monitoring ordered by me: The patient was placed on continuous cardiac monitoring and observed. It revealed atrial fibrillation at 74 bpm. Medical decision rules: none Imaging studies: I refer you to the EMR for further details. Chest x-ray. Findings: A chest x-ray was performed and revealed no pneumothorax, effusion, infiltrate, pulmonary edema, free air under the diaphragm, or wide mediastinum. Impression: No acute disease. HPI: 78 year old Female arrives for evaluation of hematuria. Patient notes dysuria and left flank pain. She has had blood in her urine over the last day. Patient has had a catheter in place for about a year. She was recently admitted and treated for UTI. EMS was summoned for evaluation. Patient was noted to have some wheezing on exam. Pt denies LOC, headache, fevers, chills, diaphoresis, visual changes, neck pain, chest pain, breathing difficulties, nausea, vomiting, melena, hematochezia, numbness, weakness, lymphadenopathy, rash, or other complaints. PAST MEDICAL HISTORY: See Below, UTI, diabetes, A-fib, asthma PAST SURGICAL HISTORY: See Below, SOCIAL HISTORY: Resides at a nursing facility HOME MEDICATIONS: See Below ALLERGIES: See Below VITALS: See Below PHYSICAL EXAMINATION: .GENERAL: Awake, alert, mildly uncomfortable-appearing, in no distress HENT: Normocephalic, atraumatic. Oropharynx unremarkable. EYES: Normal conjunctiva. Sclera non-icteric. NECK: Inspection normal. Non-tender. Supple. No nuchal rigidity. FROM. No masses. RESPIRATORY: Clear to auscultation. No wheezes. No rales. Normal respiratory effort. CARDIAC: Normal rate. Normal rhythm. No murmurs. No rubs. Extremities warm and well perfused. Pulses equal. No JVD. GI: Soft, non-distended. No tenderness to palpation. No rebound or guarding. No masses. RECTAL: Deferred. MUSCULOSKELETAL: Atraumatic. Chest examination reveals no tenderness. There is left CVA tenderness to palpation. No joint edema. LOWER EXTREMITIES: Calves are equal size bilaterally and non-tender. 1+ edema. No discoloration. NEURO: Normal sensorium. No sensory or motor deficits noted. SKIN: No rash or jaundice noted. PROCEDURES: none CRITICAL CARE: none OBSERVATION NOTE: none Past Med/Surg History Problem List (Updated 06/26/24 @ 19:19 by Sheldon Valdez MD) Infection associated with indwelling ureteral stent (Acute) Hematuria (Acute) Acute UTI (urinary tract infection) (Acute) Acute left flank pain (Acute) Complicated urinary tract infection (Acute) Protein malnutrition Bilateral hydronephrosis Chronic indwelling Osorio catheter (Acute) Nephrolithiasis Urinary retention Calculus of left kidney Morbid obesity Diabetes mellitus, type II Atrial fibrillation (Acute) Encounter for pre-operative examination Deep vein thrombosis Hypertension Hyperlipidemia Asthma Osteoarthritis of knees, bilateral GERD (gastroesophageal reflux disease) (Acute) Chronic GERD Medical History History of anemia History of posterior vitreous detachment B/L History of asthma "Well controlled" Chronic indwelling Osorio catheter Hydronephrosis of left kidney Diabetes mellitus, type II Diet controlled Overactive bladder HTN (hypertension) GERD (gastroesophageal reflux disease) Hyperlipidemia Hx of vertigo Hx of cancer of uterus 2014- radiation Hx pulmonary embolism Remote hx years ago In setting of prolonged sitting/immobility during a previous hospitalization per records Urinary retention Osorio cath in place Atrial fibrillation Taking Eliquis History of home oxygen therapy Per previous charting, hx of 2L O2 [place] Current group home record makes no note of oxygen supplementation jail resident Resides at [facility] Nontoxic thyroid nodule Hx: UTI (urinary tract infection) Recurrent Hx of sepsis Lipodermatosclerosis Chronic bronchitis 'Bronchial asthma' Acquired lymphedema "Stomach" Gets therapy/massage to manage > was complication after radiation treatment per previous PAT RN notation IBS (irritable bowel syndrome) Surgical History History of anesthesia reaction Awareness with D&C and colonoscopy History of open reduction and internal fixation (ORIF) procedure (06/2023) left femur fx Hx of cystoscopy Multiple History of cataract surgery (2020) R/L History of dilatation and curettage History of esophagogastroduodenoscopy (EGD) History of colonoscopy History of bilateral tubal ligation History of cholecystectomy Hx of hernia repair (12/2017) Ventral hernia with mesh History of tooth extraction History of cardiac cath (2010) No stents Family History Other No family history of adverse response to anesthesia Social History Smoking Status: Never smoker Second Hand Exposure: No; Do You Dip or Chew Tobacco: No; Hx Alcohol Use: No Hx Substance Use: No Preferred Language: Colombian Communication Ability: Effective Communication Ability Comment: alert and oriented x3 - of sound mind to sign consent Visual Impairment: No Limitations Fishing Rod Marker Required: No Beliefs That Will Affect Care: None Current Living Situation: Retirement Current Living Situation Comment: [facility] Feels Safe at Home: Yes Assistive Devices: Glasses Allergies Allergies Allergy/AdvReac Type Severity Reaction Status Date / Time doxycycline Allergy Intermediate Swelling Verified 04/13/24 12:02 tetracycline Allergy Mild Eye Verified 04/13/24 12:02 swelling NARINDER Inhibitors AdvReac Intermediate Cough Verified 04/13/24 12:02 codeine AdvReac Mild [place] Verified 04/13/24 12:02 "crazy" Sulfa (Sulfonamide AdvReac Mild Gastrointestinal Verified 04/13/24 12:02 Antibiotics) Upset Home Meds Home Medications Medication Instructions Recorded Confirmed acetaminophen 500 mg tablet 500 mg PO Q6H PRN Fever Or Pain 06/28/23 06/26/24 (Tylenol Extra Strength) apixaban 5 mg tablet (Eliquis) 5 mg PO [facility] 06/28/23 06/26/24 atorvastatin 80 mg tablet 80 mg PO HS 06/28/23 06/26/24 cranberry 400 mg capsule 500 mg PO QAM 06/28/23 06/26/24 lansoprazole 30 mg capsule,delayed 30 mg PO BID 06/28/23 06/26/24 release meclizine 25 mg tablet 25 mg PO TID PRN DIZZY 06/28/23 06/26/24 metoprolol succinate 50 mg 50 mg PO [facility] 06/28/23 06/26/24 tablet,extended release 24 hr nystatin 100,000 unit/gram topical 1 applic topical [facility] 06/28/23 06/26/24 powder (Nystop) phenazopyridine 200 mg tablet 200 mg PO Q8 PRN .BLADDER SPASMS 06/28/23 06/26/24 spironolactone 25 mg tablet 50 mg PO [facility] 06/28/23 06/26/24 docusate sodium 100 mg capsule 100 mg PO 09/14/23 06/26/24 (Colace) mirtazapine 15 mg tablet (Remeron) 15 mg PO HS 09/14/23 06/26/24 ondansetron HCl 4 mg tablet 4 mg PO Q8H PRN Nausea And Vomiting 09/14/23 06/26/24 sucralfate 1 gram tablet (Carafate) 1 g PO [facility] 09/14/23 06/26/24 ferrous sulfate 325 mg (65 mg 325 mg PO Q OTHER DAY 04/03/24 06/26/24 iron) tablet,delayed release fluticasone propionate 50 2 spray intranasal DAILY 04/03/24 06/26/24 mcg/actuation nasal spray,suspension montelukast 10 mg tablet 10 mg PO QAM 04/03/24 06/26/24 Previous Rx's Medication Instructions Recorded diclofenac sodium 1 % topical gel 2 g EXT QID #50 grams 11/16/23 (Voltaren Arthritis Pain) tamsulosin 0.4 mg capsule 0.4 mg PO HS #30 caps 06/14/24 tramadol 50 mg tablet 50 mg PO Q12H PRN pain #10 tabs 06/14/24 methenamine hippurate 1 gram tablet 1 g PO BID #60 tabs 06/15/24 Results & Data (ED) Vital Signs Vital Signs - 24 hr 06/26/24 11:22 06/26/24 11:22 06/26/24 11:29 Temperature 36.9 C 36.9 C Temperature Source Oral Oral Pulse Rate 61 73 Pulse Rate [Right Finger] 72 Respiratory Rate 16 18 Respiratory Effort / Characteristics Non-Labored Spontaneous Non-Labored Spontaneous Blood Pressure 137/69 Blood Pressure [Right Arm] 131/71 Blood Pressure Mean 91 Blood Pressure Mean [Right Arm] 91 Blood Pressure Position Lying Blood Pressure Position [Right Arm] Lying Pulse Oximetry 96 96 Oxygen Delivery Method Room Air Sepsis Recent Fever Within 48 Hours No Sepsis New/Unexplained Change in Mental Status No Sepsis Action Taken by Nursing No Action Required 06/26/24 13:00 06/26/24 15:00 06/26/24 16:06 Temperature Temperature Source Pulse Rate 70 Pulse Rate [Right Finger] 65 69 Respiratory Rate 18 18 Respiratory Effort / Characteristics Non-Labored Spontaneous Non-Labored Spontaneous Blood Pressure Blood Pressure [Right Arm] 122/64 138/105 H Blood Pressure Mean Blood Pressure Mean [Right Arm] 83 116 Blood Pressure Position Blood Pressure Position [Right Arm] Lying Lying Pulse Oximetry 96 95 Oxygen Delivery Method Room Air Room Air Sepsis Recent Fever Within 48 Hours Sepsis New/Unexplained Change in Mental Status Sepsis Action Taken by Nursing 06/26/24 17:00 06/26/24 19:00 Temperature Temperature Source Pulse Rate Pulse Rate [Right Finger] 68 74 Respiratory Rate 18 18 Respiratory Effort / Characteristics Non-Labored Spontaneous Non-Labored Spontaneous Blood Pressure Blood Pressure [Right Arm] 122/81 119/65 Blood Pressure Mean Blood Pressure Mean [Right Arm] 94 83 Blood Pressure Position Blood Pressure Position [Right Arm] Lying Pulse Oximetry 95 93 Oxygen Delivery Method Room Air Room Air Sepsis Recent Fever Within 48 Hours Sepsis New/Unexplained Change in Mental Status Sepsis Action Taken by Nursing Laboratory Data 06/26/24 12:10 06/26/24 12:10 Lab Results 06/26/24 06/26/24 Range/Units 11:13 12:10 WBC 8.14 (4.8-10.8) K/ul RBC 4.22 (4.20-5.40) M/uL Hgb 11.7 L (12.0-16.0) g/dl Hct 37.4 (37.0-47.0) % MCV 88.6 (80.0-100.0) fL MCH 27.7 (25.0-34.0) pg MCHC 31.3 L (32.0-36.0) g/dL RDW Std Deviation 57.5 H (36.4-46.3) fL RDW Coeff of Rodolfo 17.5 H (11.5-14.5) % Plt Count 248 (130-400) K/uL MPV 10.3 (9.4-12.4) fL Immature Gran % (Auto) 0.5 % Neut % (Auto) 57.2 % Lymph % (Auto) 32.3 % Hayes % (Auto) 5.9 % Eos % (Auto) 3.7 % Baso % (Auto) 0.4 % Neut # (Auto) 4.66 (1.40-6.50) K/uL Lymph # (Auto) 2.63 (1.20-3.40) K/uL Hayes # (Auto) 0.48 (0.11-0.59) K/uL Eos # (Auto) 0.30 (0.00-0.50) K/uL Baso # (Auto) 0.03 (0.00-0.20) K/uL Immature Gran # (Auto) 0.04 (0.01-0.20) K/uL Sodium 140 (136-145) mmol/L Potassium 3.6 (3.5-5.1) mmol/L Chloride 104 (98-107) mmol/L Carbon Dioxide 30 (21-32) mmol/L Anion Gap 6 (3-11) BUN 8 (6-23) mg/dl Creatinine 0.32 L (0.6-1.2) mg/dl Est Cr Clr Drug Dosing 138.7 ml/min eGFR 107.50 BUN/Creatinine Ratio 25.0 H (10-20) Glucose 102 H (70-99(Fasting)) mg/dl Calcium 8.7 (8.6-10.3) mg/dl Total Bilirubin 0.3 (0.2-1.0) mg/dl AST 7 L (13-39) U/L ALT 5 L (7-52) U/L Alkaline Phosphatase 106 H (34-104) U/L Total Protein 5.8 L (6.0-8.3) gm/dl Albumin 2.8 L (3.4-5.0) gm/dl Globulin 3.0 (2.5-4.0) gm/dl Albumin/Globulin Ratio 0.9 (0.9-2) Lipase 14 (11-82) U/L Urine Color Red Urine Appearance Turbid A (Clear) Urine pH 6.0 (4.5-7.5) Ur Specific [place] 1.005 (1.000-1.030) Urine Protein 2+ H (Negative) Urine Glucose (UA) Negative (Negative) Urine Ketones Negative (Negative) Urine Blood 3+ H (Negative) Urine Nitrite Negative (Negative) Urine Bilirubin Negative (Negative) Urine Urobilinogen Negative (Negative) Ur Leukocyte Esterase 3+ H (Negative) Urine WBC (Auto) >50 H (0-5) /hpf Urine RBC (Auto) >20 H (0-2) /hpf U Hyaline Cast (Auto) 11-20 H (0-2) /lpf U Epithel Cells (Auto) 3-5 H (0-2) /hpf Urine Bacteria (Auto) 4+ H (None Seen) Urine Yeast Present A (None Prsent) Administered Medications Discontinued Medications Piperacillin Sod/Tazobactam Sod (Zosyn) 4.5 gm in 100 mls @ 200 mls/hr IV NOW ONE; Protocol Stop: 06/26/24 16:54 Last Infusion: 06/26/24 19:02 Dose: Infused Documented By: Admin: 06/26/24 17:41 Dose: 200 mls/hr Documented By: [email or web address] Imaging Data Radiologist's Impression: Abdomen/Pelvis CT 06/26/24 14:10 CT abd pelvis wo con CLINICAL HISTORY: left flank pain, hematuria, UTI TECHNIQUE: Helical axial images of the abdomen and pelvis were obtained. Automated dose lowering techniques and/or adjustment according to patient size were utilized for this exam. This exam was performed without intravenous contrast. CT DOSE: 1423.01 mGy.cm COMPARISON: Comparison is made to CT abdomen pelvis 06/08/2024 FINDINGS: Lower chest: Bibasilar atelectasis versus scarring is seen. Cardiomegaly is seen with biatrial enlargement. Liver: Unremarkable. No focal lesions are seen. Gallbladder and biliary tree: Patient is status post cholecystectomy. No intra- or extrahepatic biliary ductal dilation. Pancreas: Unremarkable, no focal lesions. Spleen: Calcifications are noted in the spleen compatible with prior granulomatous disease. Adrenals: Right adrenal gland appears is seen. Kidneys and ureters: Left ureteral stent is seen. Left exophytic cysts are seen. Nonobstructive stones are seen on the right. Bladder: Limited evaluation due to underdistention. Reproductive organs: Incidentally noted, there is a Osorio catheter in the vagina. Bowel: Diverticulosis is seen without evidence of diverticulitis. Lymph nodes Retroperitoneal: Unremarkable. Pelvic: Unremarkable. Mesenteric: Unremarkable. Peritoneum: Normal. Vessels: Atherosclerotic calcifications are seen. Abdominal wall: Unremarkable. Bones: Orthopedic hardware in the left femur is seen. Multilevel degenerative changes and compression deformities are seen. IMPRESSION: Left ureteral stent is seen. No acute abnormalities. Nonobstructive stones are seen in the right collecting system. ACT 112: Negative or not required by law. Electronically signed by: Trav Gallegos M.D. 06/26/2024 4:04 PM Chest X-Ray 06/26/24 16:24 XR chest 1V portable CLINICAL HISTORY: hematuria, wheezing TECHNIQUE: Single frontal radiograph of the chest was obtained. Comparison: Comparison is made to chest radiograph 06/08/2024 FINDINGS: Exam is limited by underpenetration. Cardiomegaly is noted. The aortic arch is calcified. The lungs are clear. Small left effusion is seen. IMPRESSION: No acute chest disease. ACT 112: Negative or not required by law. Electronically signed by: Trav Gallegos M.D. 06/26/2024 4:44 PM Discharge Plan Visit Data Chief Complaint: Hematuria ED Provider: Sheldon Valdez Discharge Problem: Acute UTI (urinary tract infection), Hematuria, Infection associated with indwelling ureteral stent Forms Stand Alone Forms: [facility] [employer] Prescriptions Prescriptions: No Action atorvastatin 80 mg tablet 80 mg PO HS metoprolol succinate 50 mg tablet extended release 24 hr 50 mg PO [facility] phenazopyridine 200 mg tablet 200 mg PO Q8 PRN (Reason: .BLADDER SPASMS) acetaminophen [Tylenol Extra Strength] 500 mg Tablet 500 mg PO Q6H PRN (Reason: Fever Or Pain) spironolactone 25 mg tablet 50 mg PO QAM meclizine 25 mg tablet 25 mg PO TID PRN (Reason: DIZZY) lansoprazole 30 mg capsule,delayed release(DR/EC) 30 mg PO BID cranberry 400 mg Capsule 500 mg PO QAM Hold Instructions: Until after completes ciprofloxacin course nystatin [Nystop] 100,000 unit/gram powder 1 applic TOPICAL [facility] Rx Instructions: ABDOMINAL FOLDS Eliquis 5 mg tablet 5 mg PO [facility] sucralfate [Carafate] 1 gram Tablet 1 g PO ACHS ondansetron HCl 4 mg Tablet 4 mg PO Q8H PRN (Reason: Nausea And Vomiting) docusate sodium [Colace] 100 mg Capsule 100 mg PO HS mirtazapine [Remeron] 15 mg Tablet 15 mg PO HS diclofenac sodium [Voltaren Arthritis Pain] 1 % Gel 2 g EXT QID Qty: 50 0RF tamsulosin 0.4 mg Capsule 0.4 mg PO HS Qty: 30 0RF tramadol 50 mg Tablet 50 mg PO Q12H PRN (Reason: pain) Qty: 10 0RF methenamine hippurate 1 gram tablet 1 g PO BID Qty: 60 0RF montelukast 10 mg Tablet 10 mg PO QAM ferrous sulfate 325 mg (65 mg iron) Tablet,Delayed Release (Dr/Ec) 325 mg PO Q OTHER DAY fluticasone propionate 50 mcg/actuation [place],Suspension 2 spray INTRANASAL DAILY Rx Instructions: administer into each nostril Referrals Referrals: Pavan Mckeon MD [Primary Care Provider] -
[2024-06-26] MEDS ORDERED: MECLIZINE HCL 25 MG TAB PO PRN (20:40)
[2024-06-26] MEDS ORDERED: ONDANSETRON INJ 2 MG/ML 2 ML VIAL IV PRN (20:40)
[2024-06-26] MEDS ORDERED: POLYETHYLENE (MIRALAX) 17 GM PACK PO PRN (20:40)
[2024-06-26] MEDS ORDERED: traMADol HCL 50 MG TABLET PO PRN (20:40)
[2024-06-26] MEDS ORDERED: PHENAZOPYRIDINE HCL 200 MG TAB PO PRN (20:40)
[2024-06-26] MEDS: NYSTATIN POWDER 15GM BTL EXT SCH (22:01)
[2024-06-26] MEDS: METHENAMINE HIPPURATE 1 GM TAB PO SCH (22:02)
[2024-06-26] MEDS: DOCUSATE SODIUM 100 MG CAP PO SCH (22:02)
[2024-06-26] MEDS: DICLOFENAC SOD 1% GEL 100 GM TUBE EXT SCH (22:02)
[2024-06-26] MEDS: MIRTAZAPINE TAB 15 MG TAB PO SCH (22:03)
[2024-06-26] MEDS: TAMSULOSIN HCL 0.4 MG CAP PO SCH (22:04)
[2024-06-26] MEDS: SUCRALFATE 1 GM TAB PO SCH (22:04)
[2024-06-26] MEDS: ATORVASTATIN 40 MG TAB PO SCH (22:04)
[2024-06-26] MEDS: PANTOprazole 40 MG TAB PO SCH (22:04)
[2024-06-26] MEDS: METOPROLOL SUCC 50MG EXT REL TAB PO SCH (22:07)
[2024-06-26] MEDS: PIPERACILLIN/TAZOBACTAM 4.5 GM/100 ML BAG IV SCH (22:08)
[2024-06-27 07:03] LABS: Hemoglobin 10.9 g/dl (12.0-16.0); Mean Corpuscular Hemoglobin 27.7 pg (25.0-34.0); Mean Corpuscular Hgb Conc 31.1 g/dL (32.0-36.0); Mean Corpuscular Volume 89.1 fL (80.0-100.0); Mean Platelet Volume 9.8 fL (9.4-12.4); Platelet Count 235 K/uL (130-400); RDW Coefficient of Variation 17.7 % (11.5-14.5); RDW Standard Deviation 57.8 fL (36.4-46.3); Red Blood Count 3.93 M/uL (4.20-5.40); White Blood Count 8.09 K/ul (4.8-10.8)
[2024-06-27 07:13] LABS: BUN Creatinine Ratio 24.4 (10-20); Calcium 8.6 mg/dl (8.6-10.3); Creatinine Clr Calc Pharmacy 123.8 ml/min; Potassium 3.5 mmol/L (3.5-5.1)
[2024-06-27] MEDS: FLUTICASONE PROPIONATE NA SPR 16 GM BTL NAE SCH (08:58)
[2024-06-27] MEDS: MONTELUKAST SODIUM 10 MG TABLET PO SCH (08:59)
[2024-06-27] MEDS: SPIRONOLACTONE 25 MG TAB PO SCH (08:59)
[2024-06-27] MEDS: FERROUS SULFATE 325 MG TAB PO SCH (09:00)
--- NOTE | 2024-06-27 10:14 | Urology Consultation ---
Date of Consultation June 27, 2024 Assessment & Plan (1) Hematuria: (2) Complicated urinary tract infection: (3) Chronic indwelling Osorio catheter: (4) Nephrolithiasis: Plan 78 yo/F with history of nephrolithiasis, chronic indwelling Osorio catheter, recurrent UTI and obstruction of her left kidney status post left ureteral stent admitted for hematuria and suspected UTI. Patient afebrile, hemodynamically stable Labs reviewed hemoglobin stable 10.9, creatinine 0.41, no leukocytosis Urine culture pending. Osorio intact and draining pink tinged urine. CT reviewed and left ureteral stent is in good position. No acute intervention at this time She is scheduled for stent exchange on 07/19/24 Recommend continue with antibiotics and tailor per culture sensitivities Maintain Osorio catheter Continue supportive care Hematuria appears to be clearing and possibly due to stent irritation and/or UTI on anticoagulation. Continue to monitor. Ok to hand irrigate as needed. Anticoagulation remains on hold today with plans to restart tomorrow 06/28 per primary team Urology will follow along History of Present Illness Attending Physician: Markie Gamino MD History of Present Illness 78-year-old female with past medical history of A-fib on Eliquis, hypertension, hyperlipidemia, history of PE/DVT, endometrial cancer status post radiation, nephrolithiasis and recurrent UTIs who presented to the emergency department for evaluation of hematuria. She reported noticing hematuria in the collection bag yesterday and it became more bright red in color so her facility sent her in for further evaluation. On arrival she was afebrile and hemodynamically stable. Labs showing no leukocytosis, hemoglobin stable 11.7, creatinine 0.41. Urinalysis with 3+ blood, 3+ LE, 4+ bacteria, negative nitrite. CT abd pelvis was obtained and shows the left ureteral stent in appropriate position and nonobstructive stones on the right. Urine culture collected and pending. Her Osorio catheter was exchanged in the ED. She was started on Zosyn. Eliquis placed on hold. She is admitted to medicine service. Urology consulted for hematuria, recurrent UTI, and ureteral stent. Of note, she was recently admitted from 06/08-06/14 for bilateral hydronephrosis and complicated UTI. Completed course of Cefepime at that time. Patient is well known to the urology service, follows with Dr. Thorpe. She is status post left ureteral stent placement on 04/13/[address] Thorpe for management of obstruction of the left kidney seen on nuclear medicine study. She is scheduled for stent exchange on 07/19/24. Patient seen at bedside today. She is awake and resting in bed on arrival. No acute distress. Osorio intact and draining pink tinged urine. Denies f/c/n/v. Denies flank pain. She reports occasional dysuria. Allergies Allergy/AdvReac Type Severity Reaction Status Date / Time doxycycline Allergy Intermediate Swelling Verified 04/13/24 12:02 tetracycline Allergy Mild Eye Verified 04/13/24 12:02 swelling NARINDER Inhibitors AdvReac Intermediate Cough Verified 04/13/24 12:02 codeine AdvReac Mild [place] Verified 04/13/24 12:02 "crazy" Sulfa (Sulfonamide AdvReac Mild Gastrointestinal Verified 04/13/24 12:02 Antibiotics) Upset Home Medications Medication Instructions Recorded Confirmed Type acetaminophen 500 mg tablet 500 mg PO Q6H PRN Fever Or Pain 06/28/23 06/26/24 History (Tylenol Extra Strength) apixaban 5 mg tablet (Eliquis) 5 mg PO AMHS 06/28/23 06/26/24 History atorvastatin 80 mg tablet 80 mg PO HS 06/28/23 06/26/24 History cranberry 400 mg capsule 500 mg PO QAM 06/28/23 06/26/24 History lansoprazole 30 mg capsule,delayed 30 mg PO BID 06/28/23 06/26/24 History release meclizine 25 mg tablet 25 mg PO TID PRN DIZZY 06/28/23 06/26/24 History metoprolol succinate 50 mg 50 mg PO AMHS 06/28/23 06/26/24 History tablet,extended release 24 hr nystatin 100,000 unit/gram topical 1 applic topical AMHS 06/28/23 06/26/24 History powder (Nystop) phenazopyridine 200 mg tablet 200 mg PO Q8 PRN .BLADDER SPASMS 06/28/23 06/26/24 History spironolactone 25 mg tablet 50 mg PO QAM 06/28/23 06/26/24 History docusate sodium 100 mg capsule 100 mg PO HS 09/14/23 06/26/24 History (Colace) mirtazapine 15 mg tablet (Remeron) 15 mg PO HS 09/14/23 06/26/24 History ondansetron HCl 4 mg tablet 4 mg PO Q8H PRN Nausea And Vomiting 09/14/23 06/26/24 History sucralfate 1 gram tablet (Carafate) 1 g PO ACHS 09/14/23 06/26/24 History diclofenac sodium 1 % topical gel 2 g EXT QID #50 grams 11/16/23 06/26/24 Rx (Voltaren Arthritis Pain) ferrous sulfate 325 mg (65 mg 325 mg PO Q OTHER DAY 04/03/24 06/26/24 History iron) tablet,delayed release fluticasone propionate 50 2 spray intranasal DAILY 04/03/24 06/26/24 History mcg/actuation nasal spray,suspension montelukast 10 mg tablet 10 mg PO QAM 04/03/24 06/26/24 History tamsulosin 0.4 mg capsule 0.4 mg PO HS #30 caps 06/14/24 06/26/24 Rx tramadol 50 mg tablet 50 mg PO Q12H PRN pain #10 tabs 06/14/24 06/26/24 Rx methenamine hippurate 1 gram tablet 1 g PO BID #60 tabs 06/15/24 06/26/24 Rx Patient History Medical History (Updated 06/26/24 @ 21:21 by Miya Gotti PA-C) History of anemia History of posterior vitreous detachment B/L History of asthma "Well controlled" Chronic indwelling Osorio catheter Hydronephrosis of left kidney Diabetes mellitus, type II Diet controlled Overactive bladder HTN (hypertension) GERD (gastroesophageal reflux disease) Hyperlipidemia Hx of vertigo Hx of cancer of uterus 2013- radiation Hx pulmonary embolism Remote hx years ago In setting of prolonged sitting/immobility during a previous hospitalization per records Urinary retention Osorio cath in place Atrial fibrillation Taking Eliquis History of home oxygen therapy Per previous charting, hx of 2L O2 NC Current long term record makes no note of oxygen supplementation detention resident Resides at [facility] Nontoxic thyroid nodule Hx: UTI (urinary tract infection) Recurrent Hx of sepsis Lipodermatosclerosis Chronic bronchitis 'Bronchial asthma' Acquired lymphedema "Stomach" Gets therapy/massage to manage > was complication after radiation treatment per previous PAT RN notation IBS (irritable bowel syndrome) Surgical History History of anesthesia reaction Awareness with D&C and colonoscopy History of open reduction and internal fixation (ORIF) procedure (06/2023) left femur fx Hx of cystoscopy Multiple History of cataract surgery (2020) R/L History of dilatation and curettage History of esophagogastroduodenoscopy (EGD) History of colonoscopy History of bilateral tubal ligation History of cholecystectomy Hx of hernia repair (12/2017) Ventral hernia with mesh History of tooth extraction History of cardiac cath (2010) No stents Family History Other No family history of adverse response to anesthesia Social History Smoking Status: Never smoker Second Hand Exposure: No; Do You Dip or Chew Tobacco: No; Hx Alcohol Use: No Hx Substance Use: No Preferred Language: Indian Communication Ability: Effective Communication Ability Comment: alert and oriented x3 - of sound mind to sign consent Visual Impairment: No Limitations Car Dryer Required: No Beliefs That Will Affect Care: None Current Living Situation: Personal Care Facility Current Living Situation Comment: [facility] Feels Safe at Home: Yes Assistive Devices: Other Review of Systems Review of Systems: All systems reviewed & are unremarkable except as noted in HPI & below Physical Exam Constitutional: + morbidly obese; no acute distress Respiratory: normal respiratory effort; no respiratory distress and no labored breathing Gastrointestinal (Abdomen): Inspection/Auscultation: abdomen normal to inspection Musculoskeletal: Head/Neck/Chest: normocephalic Neurologic: moves all extremities and awake Psychiatric: Orientation: alert and oriented x 3 Genitourinary: Osorio intact Results & Data Vital Signs (Past 12 Hours) Vital Signs Temp Pulse Pulse Resp BP Pulse Ox O2 Del Method 06/27/24 09:13 Room Air 06/27/24 08:16 36.6 C 66 18 108/70 93 Room Air 06/27/24 07:18 66 06/27/24 03:09 36.4 C L 67 18 99/63 L 93 Room Air 06/26/24 22:20 36.5 C 78 18 132/72 94 Room Air PG Care Time/CCT Total # of Minutes Spent Total Time Spent with Patient: Total time spent is greater than 50% in coordination of care (as documented) at patient's floor/unit and/or counseling patient: Coding Level of Care Code 33404 INT INP/OBS CARE MIN Diagnoses Hematuria R31.9 Complicated urinary tract infection N39.0 Chronic indwelling Osorio catheter Z97.8 Nephrolithiasis N20.0
--- NOTE | 2024-06-27 12:11 | Hospitalist Progress Note ---
Date of Service June 27, 2024 Assessment & Plan (1) Infection associated with indwelling ureteral stent: (2) Hematuria: (3) Acute left flank pain: (4) Chronic indwelling Osorio catheter: (5) Atrial fibrillation: (6) Morbid obesity: (7) Hypertension: (8) Hyperlipidemia: (9) Asthma: (10) Sacral back pain: Plan This is a 78-year-old female resident of [facility] with PMH of A- fib on Eliquis, HTN, HLD, history of PE/DVT, asthma, DM type II, chronic anemi a, chronic lymphedema, history of recurrent UTIs and ureteral stents who presents with hematuria. CAUTI, POA Indwelling L ureteral stent Hematuria Had an indwelling Osorio catheter placed since right hip fracture in June 2023 due to issues with weightbearing and incontinence Follows with [facility] [place] urology with L ureteral stent in place for hydronephrosis Red urine noted in collection bag a day prior to admission Hb stable around 10-11 g/dl Urinalysis suggestive of infection. Past urine results reviewed; E. coli/Pseudomonas present in the past. Urine culture shows three times of organism. will repeat Urine cx Osorio catheter was changed in ED Continue on empiric Zosyn; follow-up on final urine culture Urology on board; appreciate recommendation will resume eliquis from tomorrow am and monitor for hematuria Sacral area skin breakdown - present prior to arrival C/o increased pain in this region, states she does not have enough help moving around at [facility] - unable to get out of bed on her own Area erythematous, no large open areas noted although difficult to fully visualize in ED Turn and reposition Wound care consult Paroxysmal Atrial fibrillation EKG on admission shows atrial fibrillation with ventricular rate of 90 bpm. Anticoagulated on Eliquis 5 twice daily - hold for now 2/2 hematuria Continue metoprolol succinate Hypertension Continue home Toprol, spironolactone Hyperlipidemia Continue Atorvastatin Deep vein thrombosis History of DVT Eliquis to be resumed from tomorrow am GERD (gastroesophageal reflux disease) Continue famotidine DVT Ppx: SCDs for now Code status: DNR/DNI PCP: [facility] Dispo: admitted to [facility] tele Time spent evaluating patient, direct bedside care, chart review, placing orders, interpretation of diagnostic studies, discussion with consultants, patient, and family members, as well as other required patient management activities is 50 minutes Please note the above document was generated using voice recognition software. It may contain grammatical, syntax or spelling errors. Any formal questions or concerns about the content, text or information contained within the body of this dictation should be directly addressed to the provider for clarification Admission and Anticipated Discharge Date Admission Date: June 26, 2024 Subjective Patient seen and examined at bedside. She is comfortable; not in distress Denies fever, chills, chest pain or abdominal pain Osorio catheter in place draining clear urine Review of Systems Review of Systems: All systems reviewed & are unremarkable except as noted in Subjective Physical Exam Physical Exam: General Appearance: WD/WN, vitals as above, NAD, sitting up in bed, pleasant, conversing easily, obese Respiratory: normal respiratory effort, lungs clear to auscultation, no wheeze, rales, rhonchi. No accessory muscle use Cardiovascular: regular rate, rhythm, normal peripheral pulses, trace BLE edema Chest: normal inspection of chest Abdomen/GI: normal bowel sounds, soft, non-tender : Osorio collection bag with clear urine, no blood Extremities/Musculoskeletal: no cyanosis or clubbing, extremities motor [facility] 5/5 Neurologic: PERRL, EOMI, accommodation nl, no face palsy, no dysarthria, CN's II-XI intact bilaterally and moves all extremities Psychiatric: A+Ox3, euthymic affect Skin: normal color, warm/dry, sacral area with dressing , no open wounds noted, TTP Results & Data Results & Data Vital Signs (Past 12 Hours) Vital Signs Temp Pulse Pulse Resp BP Pulse Ox O2 Del Method 06/27/24 11:44 36.7 C 66 20 133/75 97 Room Air 06/27/24 09:13 Room Air 06/27/24 08:16 36.6 C 66 18 108/70 93 Room Air 06/27/24 07:18 66 06/27/24 03:09 36.4 C L 67 18 99/63 L 93 Room Air (5) Atrial fibrillation Atrial fibrillation type: unspecified Qualified Code(s): I48.91 - Unspecified atrial fibrillation
[2024-06-27] MEDS: INFLUENZA VACC TS2024-25(65y+)/PF (IIV3) 0.5mL Syr IM ONE (15:42)
[2024-06-28 07:36] LABS: Hematocrit (blood only) 34.5 % (37.0-47.0); Mean Corpuscular Hemoglobin 27.9 pg (25.0-34.0); Mean Corpuscular Hgb Conc 31.9 g/dL (32.0-36.0); Mean Corpuscular Volume 87.6 fL (80.0-100.0); Mean Platelet Volume 10.2 fL (9.4-12.4); Platelet Count 214 K/uL (130-400); RDW Coefficient of Variation 17.6 % (11.5-14.5); RDW Standard Deviation 56.9 fL (36.4-46.3); Red Blood Count 3.94 M/uL (4.20-5.40); White Blood Count 7.26 K/ul (4.8-10.8)
[2024-06-28 07:57] LABS: BUN Creatinine Ratio 18.4 (10-20); Calcium 8.6 mg/dl (8.6-10.3); Creatinine Clr Calc Pharmacy 103.9 ml/min; Potassium 3.9 mmol/L (3.5-5.1)
[2024-06-28] MEDS: APIXABAN 5 MG TABLET PO SCH (09:18)
--- NOTE | 2024-06-28 09:46 | Urology Progress Note ---
Date of Service June 28, 2024 Assessment & Plan (1) Hematuria: (2) Complicated urinary tract infection: (3) Chronic indwelling Osorio catheter: (4) Nephrolithiasis: Plan 78 yo/F with history of nephrolithiasis, chronic indwelling Osorio catheter, recurrent UTI and obstruction of her left kidney status post left ureteral stent admitted for hematuria and suspected UTI. Patient afebrile, hemodynamically stable Labs reviewed hemoglobin stable 11.0, creatinine 0.49, no leukocytosis Urine culture 06/26 with more than 3 types of organisms all high counts; Repeat urine culture pending. Osorio intact and draining clear yellow urine CT reviewed and left ureteral stent is in good position. No acute intervention at this time Hematuria has cleared and anticoagulation has been resumed today 06/28 per primary team Hematuria was possibly due to stent irritation and/or UTI on anticoagulation Maintain Osorio catheter and continue to monitor Recommend continue with antibiotics and tailor per culture sensitivities Continue supportive care She is scheduled for stent exchange with Dr. Thorpe on 07/19/24 Urology will sign-off. Please call with any questions/concerns or changes in patient status. Admission and Anticipated Discharge Date Admission Date: June 26, 2024 Subjective Pt seen at bedside this AM Awake and resting in bed on arrival No acute distress Denies any pain or discomfort at present Denies fever, chills, nausea, vomiting Osorio draining clear yellow urine She reports some dysuria Review of Systems Constitutional: as per Subjective / HPI Genitourinary: as per Subjective / HPI Physical Exam Constitutional: + morbidly obese; no acute distress Respiratory: no respiratory distress and no labored breathing Neurologic: awake Psychiatric: Orientation: alert and oriented x 3 Genitourinary: Osorio intact Results & Data Vital Signs (Past 12 Hours) Vital Signs Temp Pulse Pulse Pulse Resp BP BP 06/28/24 07:29 69 06/28/24 07:19 36.7 C 65 18 112/65 06/28/24 02:51 36.5 C 69 18 97/61 L 06/27/24 22:20 36.7 C 77 18 116/65 06/27/24 21:55 78 Pulse Ox O2 Del Method 06/28/24 07:29 06/28/24 07:19 94 Room Air 06/28/24 02:51 93 Room Air 06/27/24 22:20 94 Room Air 06/27/24 21:55 PG Care Time/CCT Total # of Minutes Spent Total Time Spent with Patient: Total time spent is greater than 50% in coordination of care (as documented) at patient's floor/unit and/or counseling patient: Coding Level of Care Code 44955 SUB INP/OBS CARE 2/35MIN Diagnoses Hematuria R31.9 Complicated urinary tract infection N39.0 Chronic indwelling Osorio catheter Z97.8 Nephrolithiasis N20.0
[2024-06-28] MEDS: ADVANCED PROBIOTIC 625 MG CAPSULE PO SCH (10:42)
--- NOTE | 2024-06-28 18:09 | Hospitalist Progress Note ---
Date of Service June 28, 2024 delayed entry date of service noted above Assessment & Plan (1) Infection associated with indwelling ureteral stent: (2) Hematuria: (3) Acute left flank pain: (4) Chronic indwelling Osorio catheter: (5) Atrial fibrillation: (6) Morbid obesity: (7) Hypertension: (8) Hyperlipidemia: (9) Asthma: (10) Sacral back pain: Plan per previous hospitalist notes with addendum: This is a 78-year-old female resident of [facility] with PMH of A- fib on Eliquis, HTN, HLD, history of PE/DVT, asthma, DM type II, chronic anemia, chronic lymphedema, history of recurrent UTIs and ureteral stents who presents with hematuria. RICH ADAMEA Indwelling L ureteral stent Hematuria Had an indwelling Osorio catheter placed since right hip fracture in June 2023 due to issues with weightbearing and incontinence Follows with [facility] with L ureteral stent in place for hydronephrosis Red urine noted in collection bag a day prior to admission Hb stable around 10-11 g/dl Urinalysis suggestive of infection. Past urine results reviewed; E. coli/Pseudomonas present in the past. Urine culture shows three times of organism. will repeat Urine cx Osorio catheter was changed in ED Continue on empiric Zosyn; follow-up on final urine culture Urology on board; appreciate recommendation will resume eliquis from tomorrow am and monitor for hematuria 06/28 Hematuria resolved Repeat urine culture pending Continue IV Zosyn Sacral area skin breakdown - present prior to arrival C/o increased pain in this region, states she does not have enough help moving around at [facility] - unable to get out of bed on her own Area erythematous, no large open areas noted although difficult to fully visualize in ED Turn and reposition Wound care consult Paroxysmal Atrial fibrillation EKG on admission shows atrial fibrillation with ventricular rate of 90 bpm. Anticoagulated on Eliquis 5 twice daily - hold for now 2/2 hematuria Continue metoprolol succinate Hypertension Continue home Toprol, spironolactone Hyperlipidemia Continue Atorvastatin Deep vein thrombosis History of DVT Eliquis to be resumed from tomorrow am GERD (gastroesophageal reflux disease) Continue famotidine DVT Ppx: SCDs for now Code status: DNR/DNI PCP: Felipe Dispo: admitted to med tele Admission and Anticipated Discharge Date Admission Date: June 26, 2024 Subjective Follow-up for UTI, etc. Seen resting in bed, comfortable, not in distress Feels fine overall No fevers or chills No hematuria since last night Reports mild lower abdominal pain No other new symptom Review of Systems Review of Systems: all noted and negative except for above Physical Exam Physical Exam: General- oriented x 3, not in distress, speaks in sentences with no effort or a ccessory muscle use Eyes- anicteric Neck- no JVD Lungs- clear breath sounds bilaterally, no rales/wheezes Heart- normal rate, regular rhythm; no murmurs Abdomen- normal bowel sounds, nondistended, soft, nontender Osorio catheter in place draining yellow urine Extremities- no pretibial edema, no calf tenderness Neuro- alert, oriented x 3; no gross focal neurologic deficits Skin- warm & dry Results & Data Results & Data Vital Signs (Past 12 Hours) Vital Signs Temp Pulse Pulse Resp BP BP Pulse Ox 06/28/24 15:34 44 L 06/28/24 11:43 36.6 C 68 18 111/52 L 97 06/28/24 10:57 06/28/24 07:29 69 06/28/24 07:19 36.7 C 65 18 112/65 94 O2 Del Method 06/28/24 15:34 06/28/24 11:43 Room Air 06/28/24 10:57 Room Air 06/28/24 07:29 06/28/24 07:19 Room Air all noted and reviewed including below (5) Atrial fibrillation Atrial fibrillation type: unspecified Qualified Code(s): I48.91 - Unspecified atrial fibrillation
[2024-06-29] MEDS: ACETAMINOPHEN 325 MG TAB PO PRN (09:25)
[2024-06-29 12:10] VITALS: RESP 18
[2024-06-29] MEDS ORDERED: PHENAZOPYRIDINE HCL 100 MG TAB PO PRN (15:00)
--- NOTE | 2024-06-29 18:32 | Hospitalist Progress Note ---
Date of Service June 29, 2024 Assessment & Plan (1) Infection associated with indwelling ureteral stent: (2) Hematuria: (3) Acute left flank pain: (4) Chronic indwelling Osorio catheter: (5) Atrial fibrillation: (6) Morbid obesity: (7) Hypertension: (8) Hyperlipidemia: (9) Asthma: (10) Sacral back pain: Plan This is a 78-year-old female resident of [facility] with PMH of A- fib on Eliquis, HTN, HLD, history of PE/DVT, asthma, DM type II, chronic anemi a, chronic lymphedema, history of recurrent UTIs and ureteral stents who presents with hematuria. CAUTI, POA Indwelling L ureteral stent Hematuria Had an indwelling Osorio catheter placed since right hip fracture in June 2023 due to issues with weightbearing and incontinence Follows with [facility] [place]rology with L ureteral stent in place for hydronephrosis Red urine noted in collection bag a day prior to admission Hb stable around 10-11 g/dl Urinalysis suggestive of infection. Past urine results reviewed; E. coli/Pseudomonas present in the past. Urine culture shows three times of organism. will repeat Urine cx Osorio catheter was changed in ED Continue on empiric Zosyn; follow-up on final urine culture Urology on board; appreciate recommendation will resume eliquis from tomorrow am and monitor for hematuria 06/29 repeat urine culture: pending continue IV Zosyn likely transition to PO Abx tomorrow Sacral area skin breakdown - present prior to arrival C/o increased pain in this region, states she does not have enough help moving around at [facility] - unable to get out of bed on her own Area erythematous, no large open areas noted although difficult to fully visualize in ED Turn and reposition Wound care consult Paroxysmal Atrial fibrillation EKG on admission shows atrial fibrillation with ventricular rate of 90 bpm. Anticoagulated on Eliquis 5 twice daily - hold for now 2/2 hematuria Continue metoprolol succinate 06/29 had a 12 sec episode of HR 35 asymptomatic continue Metoprolol monitor closely Hypertension Continue home Toprol, spironolactone Hyperlipidemia Continue Atorvastatin Deep vein thrombosis History of DVT Eliquis to be resumed from tomorrow am GERD (gastroesophageal reflux disease) Continue famotidine DVT Ppx: Eliquis Code status: DNR/DNI PCP: [facility] Dispo: transition to [facility] when medically stable Admission and Anticipated Discharge Date Admission Date: June 26, 2024 Subjective ff up for UTI, etc seen resting in bed, comfortable had an episode of HR 35 on Telemetry 12 sec, asymptomatic denies episodes of syncope/presyncope has dizziness episodes but from vertigo no chest pain, dyspnea, palpitations, dizziness lower abdominal pain, improving no other symptoms Review of Systems Review of Systems: all noted and negative except for above Physical Exam Physical Exam: General- oriented x 3, not in distress, speaks in sentences with no effort or accessory muscle use Eyes- anicteric Neck- no JVD Lungs- clear breath sounds bilaterally, no rales/wheezes Heart- normal rate, irregularly irregular rhythm; no murmurs Abdomen- normal bowel sounds, nondistended, soft, nontender Osorio cath: draining yellow urine Extremities- no pretibial edema, no calf tenderness Neuro- alert, oriented x 3; no gross focal neurologic deficits Skin- warm & dry Results & Data Results & Data Vital Signs (Past 12 Hours) Vital Signs Temp Pulse Pulse Resp BP Pulse Ox O2 Del Method 06/29/24 17:48 60 06/29/24 16:25 36.7 C 69 18 113/70 94 Room Air 06/29/24 12:08 36.7 C 53 L 18 121/76 93 Room Air 06/29/24 08:44 Room Air 06/29/24 08:10 36.5 C 69 16 124/65 94 Room Air 06/29/24 07:18 62 all noted and reviewed including below (5) Atrial fibrillation Atrial fibrillation type: unspecified Qualified Code(s): I48.91 - Unspecified atrial fibrillation
[2024-06-30 05:56] LABS: Basophils # (auto) 0.03 K/uL (0.00-0.20); Basophils % (auto) 0.5 %; Eosinophils # (auto) 0.29 K/uL (0.00-0.50); Eosinophils % (auto) 4.4 %; Hemoglobin 11.1 g/dl (12.0-16.0); Immature Granulocytes # (auto) 0.03 K/uL (0.01-0.20); Immature Granulocytes % (auto) 0.5 %; Lymphocytes # (auto) 2.74 K/uL (1.20-3.40); Lymphocytes % (auto) 41.7 %; Mean Corpuscular Hemoglobin 28.8 pg (25.0-34.0); Mean Corpuscular Hgb Conc 32.6 g/dL (32.0-36.0); Mean Corpuscular Volume 88.3 fL (80.0-100.0); Mean Platelet Volume 10.1 fL (9.4-12.4); Monocytes % (auto) 6.1 %; Neutrophils # (auto) 3.08 K/uL (1.40-6.50); Neutrophils % (auto) 46.8 %; Platelet Count 217 K/uL (130-400); RDW Coefficient of Variation 17.4 % (11.5-14.5); RDW Standard Deviation 56.2 fL (36.4-46.3); Red Blood Count 3.85 M/uL (4.20-5.40); White Blood Count 6.57 K/ul (4.8-10.8)
[2024-06-30 06:13] LABS: BUN Creatinine Ratio 17.8 (10-20); Calcium 8.8 mg/dl (8.6-10.3); Creatinine Clr Calc Pharmacy 69.7 ml/min
[2024-06-30 07:29] VITALS: BP 149/70; TEMP 97.9; O2SAT 95
--- NOTE | 2024-06-30 13:06 | Discharge Summary ---
Discharge Summary Date of Service June 30, 2024 Principal Dx & Hospital Course #1 = Principal Diagnosis (1) Infection associated with indwelling ureteral stent: (2) Hematuria: (3) Acute left flank pain: (4) Chronic indwelling Osorio catheter: (5) Atrial fibrillation: (6) Morbid obesity: (7) Hypertension: (8) Hyperlipidemia: (9) Asthma: (10) Sacral back pain: Plan This is a 78-year-old female resident of [facility] with PMH of A- fib on Eliquis, HTN, HLD, history of PE/DVT, asthma, DM type II, chronic anemia, chronic lymphedema, history of recurrent UTIs and ureteral stents who presents with hematuria. CAUTI, POA Indwelling L ureteral stent Hematuria Had an indwelling Osorio catheter placed since right hip fracture in June 2023 due to issues with weightbearing and incontinence Follows with [facility] [place] [facility] urology with L ureteral stent in place for hydronephrosis Red urine noted in collection bag a day prior to admission Hb stable around 10-11 g/dl Urinalysis suggestive of infection. Past urine results reviewed; E. coli/Pseudomonas present in the past. Urine culture shows three times of organism. will repeat Urine cx Osorio catheter was changed in ED given empiric Zosyn Urology on board- ok to resume Eliquis stent exchange with Dr. Thorpe on 07/19/2406/30 repeat urine culture: Three types of organisms present, all high counts. discharge on PO Augmentin x 10 more days probiotics daily x 1 month monitor for recurrence of UTI- abdominal pain, fever/chills, hematuria Sacral area skin breakdown - present prior to arrival C/o increased pain in this region, states she does not have enough help moving around at [facility] - unable to get out of bed on her own Area erythematous, no large open areas noted although difficult to fully visual ize in ED Turn and reposition Wound care consulted continue wound care at [facility] Paroxysmal Atrial fibrillation EKG on admission shows atrial fibrillation with ventricular rate of 90 bpm. Anticoagulated on Eliquis 5 twice daily - hold for now 2/2 hematuria Continue metoprolol succinate 06/29 had a 12 sec episode of HR 35 asymptomatic continue Metoprolol monitor closely 06/[address] findings Vessels: Atherosclerotic calcifications are seen. seen on CT abdomen and pelvis outpatient work up and management Hypertension Continue home Toprol, spironolactone Hyperlipidemia Continue Atorvastatin Deep vein thrombosis History of DVT Eliquis resumed GERD (gastroesophageal reflux disease) Continue famotidine DVT Ppx: Eliquis Code status: DNR/DNI PCP: Felipe Dispo: transition to [facility] Notes For Next Care Provider Please continue wound care of skin breakdown at the sacral area. Medication Changes From Visit Augmentin BID x 10 days Probiotics daily Admission HPI Per Admitting Provider This is a 78-year-old female resident of [facility] with PMH of A- fib on Eliquis, HTN, HLD, history of PE/DVT, asthma, DM type II, chronic anemia, chronic lymphedema, history of recurrent UTIs and ureteral stents who presents with hematuria since yesterday. Had an indwelling Osorio catheter placed since right hip fracture in June 2023 due to issues with weightbearing and incontinence. Follows with [facility] urology with L ureteral stent in place for hydronephrosis. Was recently admitted to our service from 06/08-06/14 for bilateral hydronephrosis and complicated UTI. Completed 7d course of Cefepime at that time. Urology was consulted but no intervention while admitted, due for stent replacement this July. Noticed red appearance to urine in collection bag yesterday and it became more bright red in color today, so facility sent her in for further evaluation. Also notes dysuria she typically has with UTI as well as colicky L suprapubic pain. No fever or chills. No CP, SOB, N/V, diarrhea or constipation. Stools have been soft 2/2 softener but denies diarrhea. Has a lot of difficulty moving on her own and requires assistance to get out of bed. Notes worsening pain near buttocks and nursing staff at [facility] recently started dressing that area due to skin breakdown. Admission Exam Per Admitting Provider General Appearance: WD/WN, vitals as above, NAD, sitting up in bed, pleasant, conversing easily, obese Head: normocephalic, atraumatic Eyes: normal inspection, PERRL, conjunctivae normal, anicteric sclerae ENT: external ear and nose normal, oropharynx normal Neck: normal visual inspection, trachea midline, no thyromegaly Respiratory: normal respiratory effort, lungs clear to auscultation, no wheeze, rales, rhonchi. No accessory muscle use Cardiovascular: regular rate, rhythm, normal peripheral pulses, trace BLE edema Chest: normal inspection of chest Abdomen/GI: normal bowel sounds, soft, + LLQ and suprapubic TTP, no hepatosplenomegaly : Osorio collection bag with red urine, no clots visualized Extremities/Musculoskeletal: no cyanosis or clubbing, extremities motor strength 5/5 Neurologic: PERRL, EOMI, accommodation nl, no face palsy, no dysarthria, CN's II-XI intact bilaterally and moves all extremities Psychiatric: A+Ox3, euthymic affect Skin: normal color, warm/dry, sacral area with dressing - removed to show erythematous area, no open wounds noted, TTP Discharge Exam General- oriented x 3, not in distress, speaks in sentences with no effort or accessory muscle use Eyes- anicteric Neck- no JVD Lungs- clear breath sounds bilaterally, no rales/wheezes Heart- normal rate, regular rhythm; no murmurs Abdomen- normal bowel sounds, nondistended, soft, nontender Osorio cath draining clear, yellow urine Extremities- no pretibial edema, no calf tenderness Neuro- alert, oriented x 3; no gross focal neurologic deficits Skin- warm & dry Updated Medication List Medication Instructions Recorded Confirmed Type acetaminophen 500 mg tablet 500 mg PO Q6H PRN Fever Or Pain 06/28/23 06/26/24 History (Tylenol Extra Strength) apixaban 5 mg tablet (Eliquis) 5 mg PO AMHS 06/28/23 06/26/24 History atorvastatin 80 mg tablet 80 mg PO HS 06/28/23 06/26/24 History cranberry 400 mg capsule 500 mg PO QAM 06/28/23 06/26/24 History lansoprazole 30 mg capsule,delayed 30 mg PO BID 06/28/23 06/26/24 History release meclizine 25 mg tablet 25 mg PO TID PRN DIZZY 06/28/23 06/26/24 History metoprolol succinate 50 mg 50 mg PO AMHS 06/28/23 06/26/24 History tablet,extended release 24 hr nystatin 100,000 unit/gram topical 1 applic topical AMHS 06/28/23 06/26/24 History powder (Nystop) phenazopyridine 200 mg tablet 200 mg PO Q8 PRN .BLADDER SPASMS 06/28/23 06/26/24 History spironolactone 25 mg tablet 50 mg PO QAM 06/28/23 06/26/24 History docusate sodium 100 mg capsule 100 mg PO HS 09/14/23 06/26/24 History (Colace) mirtazapine 15 mg tablet (Remeron) 15 mg PO HS 09/14/23 06/26/24 History ondansetron HCl 4 mg tablet 4 mg PO Q8H PRN Nausea And Vomiting 09/14/23 06/26/24 History sucralfate 1 gram tablet (Carafate) 1 g PO ACHS 09/14/23 06/26/24 History diclofenac sodium 1 % topical gel 2 g EXT QID #50 grams 11/16/23 06/26/24 Rx (Voltaren Arthritis Pain) ferrous sulfate 325 mg (65 mg 325 mg PO Q OTHER DAY 04/03/24 06/26/24 History iron) tablet,delayed release fluticasone propionate 50 2 spray intranasal DAILY 04/03/24 06/26/24 History mcg/actuation nasal spray,suspension montelukast 10 mg tablet 10 mg PO QAM 04/03/24 06/26/24 History tamsulosin 0.4 mg capsule 0.4 mg PO HS #30 caps 06/14/24 06/26/24 Rx tramadol 50 mg tablet 50 mg PO Q12H PRN pain #10 tabs 06/14/24 06/26/24 Rx methenamine hippurate 1 gram tablet 1 g PO BID #60 tabs 06/15/24 06/26/24 Rx L.acidop,casei,lactis,rham-B.lact,danilo 1 cap PO DAILY 30 days #30 caps 06/30/24 Rx 625 mg (10 billion cell) capsule (Advanced Probiotic) amoxicillin 875 mg-potassium 1 tab PO BID 7 days #14 tabs 06/30/24 Rx clavulanate 125 mg tablet Hospital Stay Data Consultations 06/26/24 17:25 ED Decision to Admit Stat 06/26/24 18:10 Consult Urology Routine Diagnostic Imagining Performed CT Abd and Pelvis [CT abd pelvis wo con] Stat CLINICAL HISTORY: left flank pain, hematuria, UTI TECHNIQUE: Helical axial images of the abdomen and pelvis were obtained. Automated dose lowering techniques and/or adjustment according to patient size were utilized for this exam. This exam was performed without intravenous contrast. CT DOSE: 1423.01 mGy.cm COMPARISON: Comparison is made to CT abdomen pelvis 06/08/2024 FINDINGS: Lower chest: Bibasilar atelectasis versus scarring is seen. Cardiomegaly is seen with biatrial enlargement. Liver: Unremarkable. No focal lesions are seen. Gallbladder and biliary tree: Patient is status post cholecystectomy. No intra- or extrahepatic biliary ductal dilation. Pancreas: Unremarkable, no focal lesions. Spleen: Calcifications are noted in the spleen compatible with prior granulomatous disease. Adrenals: Right adrenal gland appears is seen. Kidneys and ureters: Left ureteral stent is seen. Left exophytic cysts are seen. Nonobstructive stones are seen on the right. Bladder: Limited evaluation due to underdistention. Reproductive organs: Incidentally noted, there is a Osorio catheter in the vagina. Bowel: Diverticulosis is seen without evidence of diverticulitis. Lymph nodes Retroperitoneal: Unremarkable. Pelvic: Unremarkable. Mesenteric: Unremarkable. Peritoneum: Normal. Vessels: Atherosclerotic calcifications are seen. Abdominal wall: Unremarkable. Bones: Orthopedic hardware in the left femur is seen. Multilevel degenerative changes and compression deformities are seen. IMPRESSION: Left ureteral stent is seen. No acute abnormalities. Nonobstructive stones are seen in the right collecting system. ACT 112: Negative or not required by law. Electronically signed by: Trav Gallegos M.D. 06/26/2024 4:04 PM XR chest 1V portable CLINICAL HISTORY: hematuria, wheezing TECHNIQUE: Single frontal radiograph of the chest was obtained. Comparison: Comparison is made to chest radiograph 06/08/2024 FINDINGS: Exam is limited by underpenetration. Cardiomegaly is noted. The aortic arch is calcified. The lungs are clear. Small left effusion is seen. IMPRESSION: No acute chest disease. ACT 112: Negative or not required by law. Pending Results Patient Have Any Pending Studies at Discharge: No Discharge Instructions Given to Patient (Per Discharging Provider) Please continue daily sacral skin breakdown management and monitor closely. please refer to accompanying hospital discharge summary for full details. Total Time Total Time Spent Total Time Spent (In Minutes): 45 minutes
[2024-06-30 13:17] VITALS: PULSE 96
== END 2024-06-30 15:22 | disposition home or self-care (01) ==
LOC: ED 11:05 → 2N 17:30 → SUATTDRO 17:30 → INTOOBSV 17:30 → 2N 20:15

== ENCOUNTER 2024-08-14 15:09 | Inpatient (IN) ==
--- NOTE | 2024-08-14 15:43 | Emergency Department Note ---
Impression & Plan Severe sepsis, Chronic indwelling Cobb catheter, Acute UTI, Elevated troponin ED Provider Note Provider: Ivan Pan MD CHIEF COMPLAINT: Altered, possible UTI HISTORY OF PRESENT ILLNESS: Patient is a 78-year-old female past medical history of morbid obesity, GERD, hyperlipidemia, hypertension, A-fib on Eliquis, and a chronic indwelling Cobb with a history of hydronephrosis who on July 19 apparently had cystoscopy with Dr. Thorpe with ureteral stent placement in the left ureter. Presents here today from his facility with altered mental status. Patient reportedly has a UTI but has not been on antibiotics. Patient responding to some questions but seems distant. Will follow some commands. Chronic indwelling Cobb appreciable with dark urine present. Denies any pain to me or nausea or vomiting. No trauma is reported. Patient does note was recently Thanksgiving but some the exact details she is foggy on. PAST MEDICAL HISTORY: As noted above MEDICATIONS: Reviewed home medications SOCIAL HISTORY: Resides at [facility] PHYSICAL EXAM: GENERAL: alert and oriented to person but somewhat slow to respond and staring blankly ahead in no acute distress on stretcher Head: normocephalic and atraumatic EYES: No injection, discharge or icterus. PERRL, EOMI. NECK: Trachea midline. Supple. ENT: Mucous membranes pink and moist. LUNGS: Airway patent. No retractions. Breath sounds clear anteriorly HEART: Irregular irregular rate and rhythm. No chest wall tenderness ABDOMEN: Soft obese, and non-tender, without guarding or rebound. Chronic indwelling Cobb in place with trace dark urine present in bag SKIN: Acyanotic, warm, dry, without rashes EXTREMITIES: Without swelling, tenderness or deformity NEUROLOGICAL: No focal deficits moving all extremities. No aphasia. No facial droop or slurred speech. EK bpm atrial fibrillation with rapid ventricular response. Baseline artifact with nonspecific T wave changes. No clear acute ST segment elevation with a QTc of 407. CONTINUOUS CARDIAC MONITORING: was ordered and showed a heart rate of 90s-120s bpm in atrial fibrillation Patient's laboratory studies and imaging reviewed. Differential includes Infection, dehydration, metabolic abnormality, hypo/hyperglycemia, electrolyte disturbance, anemia, hypoxia, cardiac sources, intracerebral event, toxicologic, neurologic, as well as other pathologies. IMPRESSION/MEDICAL DECISION MAKING: Patient tachycardic but not hypotensive. Borderline fever and mildly hypoxic here. Cobb catheter changed and unclear if the chronic indwelling [address] Upon placement here grossly purulent foul-smelling pus drained from the bladder. Seems like a loraine UTI and question sepsis. [id number] blood work with evidence of acute kidney injury creatinine of 2.7. Lactate and cultures ordered. Lactate is mildly elevated 2.9. Given some fluid rehydration but 1 to be careful in setting of her obesity to prevent fluid overload as she does have a history of pulmonary hypertension. Will cover empirically with a dose of Zosyn for broad-spectrum coverage at this time. CT abdomen pelvis without contrast given her renal dysfunction be obtained to check for stent placement or other lower pelvic pathology. CT head completed given her altered mental status with use of blood thinner but seems less likely to be ICH or stroke based on her presentation. Does not seem frankly meningitic at this time. Will not aggressively treat the A-fib RVR with her sepsis at this point. Hypoxia likely more from her sepsis than loraine pneumonia but will be covered with antibiotics in either event. Leukocytosis of 16. Again mild lactate elevation to 2.9. Mild hyponatremia 134. RENALDO with creatinine 2.2. High sensitive troponin 28 higher than prior baseline believe likely demand in the setting of sepsis. Procalcitonin elevated 8.5. Negative respiratory viral panel. Urinalysis grossly positive. Chest x- ray some mild pulmonary edema and again tried to avoid fluid overload and only given a 500 cc normal saline fluid bolus here initially later repeated for a total of [address] saline[address] without acute findings per radiology report. CT the abdomen pelvis without contrast given her renal dysfunction shows left ureteral stent with bilateral hydronephrosis and no obstructing stone. Given the positive UA reached out discussed with Dr. Stanley of urology. As it seems the stent likely is draining no acute emergent urological procedure indicated at this time. Patient requires admission. Patient updated and hospitalist contacted. Repeat lactate is improving. DIAGNOSIS: Sepsis of urinary origin, UTI, acute kidney injury, elevated troponin DISPOSITION: Hospitalist will evaluate Patient was agreeable with this plan. Critical Care I have personally spent 33 minutes of critical care time in the direct management of this patient. This includes bedside care, interpretation of diagnostic studies, and testing, discussion with consultants, patient, and other required patient management activities. These 33 minutes is in excess of all separately billable procedures. Past Med/Surg History Problem List (Updated 08/14/24 @ 20:58 by Ivan Pan M.D.) Elevated troponin (Acute) Acute UTI (Acute) Severe sepsis (Acute) Acute metabolic encephalopathy Demand ischemia of myocardium Acute renal failure superimposed on chronic kidney disease Severe sepsis with acute organ dysfunction due to Gram negative bacteria Sacral back pain Infection associated with indwelling ureteral stent (Acute) Hematuria (Acute) Complicated urinary tract infection (Acute) Protein malnutrition Bilateral hydronephrosis Chronic indwelling Cobb catheter (Acute) Nephrolithiasis Urinary retention Calculus of left kidney Morbid obesity Atrial fibrillation (Acute) Encounter for pre-operative examination Deep vein thrombosis Hypertension Hyperlipidemia Asthma Osteoarthritis of knees, bilateral Chronic GERD Medical History (Updated 08/14/24 @ 20:58 by Ivan Pan M.D.) Obesity Pulmonary hypertension moderate per 06/2023 ECHO (PASP 47mmHg) Skin breakdown sacral skin breakdown per 06/2024 hospitalization; pt to follow with wound care at [facility] 2 or more hospital admissions in past 6 months admitted [facility] 06/08-06/15/24: dx: complicated UTI, chronic indwelling cobb catheter, calculus of L kidney, b/l hydronephrosis. admitted [facility] 06/26- 06/30/24: dx: infection associated with indwelling uteretal stent, hematuria, acute L flank pain: pt D/C on Cefdinir (pt also noted to have sacral skin area breakdown during admission and pt to f/u with wound care at [facility]) History of anemia History of posterior vitreous detachment B/L History of asthma "Well controlled" Chronic indwelling Cobb catheter Hydronephrosis of left kidney Diabetes mellitus, type II Diet controlled Overactive bladder HTN (hypertension) GERD (gastroesophageal reflux disease) Hyperlipidemia Hx of vertigo Hx of cancer of uterus 2013- radiation Hx pulmonary embolism Remote hx years ago In setting of prolonged sitting/immobility during a previous hospitalization per records Urinary retention Cobb cath in place Atrial fibrillation Taking Eliquis History of home oxygen therapy not currently long-term resident Resides at [facility] Nontoxic thyroid nodule Hx: UTI (urinary tract infection) Recurrent Hx of sepsis Lipodermatosclerosis Chronic bronchitis 'Bronchial asthma' Acquired lymphedema "Stomach" Gets therapy/massage to manage > was complication after radiation treatment per previous PAT RN notation IBS (irritable bowel syndrome) Surgical History (System 08/14/24 @ 15:45 by Dinora Finley) History of anesthesia reaction Awareness with D&C and colonoscopy History of open reduction and internal fixation (ORIF) procedure (06/2023) left femur fx Hx of cystoscopy Multiple; most recent: 04/13/24: MAC without issue History of cataract surgery (2020) R/L History of dilatation and curettage History of esophagogastroduodenoscopy (EGD) History of colonoscopy History of bilateral tubal ligation History of cholecystectomy Hx of hernia repair (12/2017) Ventral hernia with mesh History of tooth extraction History of cardiac cath (02/18/11) @ [facility]--No stents Family History Other No family history of adverse response to anesthesia Social History (System 08/14/24 @ 15:45 by Dinora Finley) Smoking Status: Never smoker Second Hand Exposure: No; Do You Dip or Chew Tobacco: No; Hx Alcohol Use: No Hx Substance Use: No Preferred Language: Serbian Communication Ability: Effective Communication Ability Comment: alert and oriented x3 - of sound mind to sign consent Visual Impairment: No 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: No Beliefs That Will Affect Care: None Current Living Situation: Personal Care Facility Current Living Situation Comment: [facility] Medical Assistive Devices: Other Allergies Allergies Allergy/AdvReac Type Severity Reaction Status Date / Time doxycycline Allergy Intermediate Swelling Verified 08/14/24 15:45 tetracycline Allergy Mild Eye Verified 08/14/24 15:45 swelling NARINDER Inhibitors AdvReac Intermediate Cough Verified 08/14/24 15:45 codeine AdvReac Mild Kathleen Verified 08/14/24 15:45 "crazy" Sulfa (Sulfonamide AdvReac Mild Gastrointestinal Verified 08/14/24 15:45 Antibiotics) Upset Home Meds Home Medications Medication Instructions Recorded Confirmed acetaminophen 500 mg tablet 500 mg PO Q6H PRN Fever Or Pain 06/28/23 08/14/24 (Tylenol Extra Strength) apixaban 5 mg tablet (Eliquis) 5 mg PO AMHS 06/28/23 08/14/24 atorvastatin 80 mg tablet 80 mg PO HS 06/28/23 08/14/24 lansoprazole 30 mg capsule,delayed 30 mg PO BID 06/28/23 08/14/24 release metoprolol succinate 50 mg 50 mg PO AMHS 06/28/23 08/14/24 tablet,extended release 24 hr spironolactone 25 mg tablet 25 mg PO QAM 06/28/23 08/14/24 docusate sodium 100 mg capsule 200 mg PO HS 09/14/23 08/14/24 (Colace) mirtazapine 15 mg tablet (Remeron) 15 mg PO HS 09/14/23 08/14/24 sucralfate 1 gram tablet (Carafate) 1 g PO ACHS 09/14/23 08/14/24 ferrous sulfate 325 mg (65 mg 325 mg PO Q OTHER DAY 04/03/24 08/14/24 iron) tablet,delayed release montelukast 10 mg tablet 10 mg PO QAM 04/03/24 08/14/24 ascorbic acid (vitamin C) 500 mg 500 mg PO BID 07/10/24 08/14/24 tablet (Vitamin C) loperamide 2 mg tablet 2 mg PO Q4H PRN Diarrhea 07/10/24 08/14/24 weklfxfomaiaq-ibfhdaknahwov-sigflaemrpj 2 tab PO Q12 PRN Congestion 07/10/24 08/14/24 5 mg-325 mg-200 mg tablet (Mucinex Sinus-Max Severe Congestion Relief) polyethylene glycol 3350 17 17 g PO DAILY PRN Constipation 07/10/24 08/14/24 gram/dose oral powder Saccharomyces boulardii 250 mg 250 mg PO QAM 08/14/24 08/14/24 capsule (Florastor) cranberry extract 500 mg capsule 500 mg PO QAM 08/14/24 08/14/24 (Cranberry Concentrate) diclofenac sodium 1 % topical gel 2 g EXT QID Pain 08/14/24 08/14/24 (Voltaren Arthritis Pain) zinc oxide 20 % topical ointment 1 applic topical BID 08/14/24 08/14/24 Previous Rx's Medication Instructions Recorded tamsulosin 0.4 mg capsule 0.4 mg PO HS #30 caps 06/14/24 tramadol 50 mg tablet 50 mg PO Q12H PRN pain #10 tabs 06/14/24 methenamine hippurate 1 gram tablet 1 g PO BID #60 tabs 06/15/24 oxybutynin chloride 5 mg tablet 5 mg PO Q8H PRN bladder spasms #30 07/17/24 tabs Results & Data (ED) Vital Signs Vital Signs - 24 hr 08/14/24 15:19 08/14/24 15:19 08/14/24 15:23 Temperature 37.5 C Temperature Source Oral Pulse Rate 124 H 123 H Pulse Rate [Right Finger] Pulse Rate from SpO2 Sensor Pulse Rhythm [Right Finger] Pulse Strength [Right Finger] Respiratory Rate 22 Respiratory Effort / Characteristics Non-Labored Spontaneous Respiratory Depth Normal Respiratory Pattern Blood Pressure 138/54 L Blood Pressure [Right Arm] Blood Pressure Mean 82 Blood Pressure Mean [Right Arm] Blood Pressure Position [Right Arm] Pulse Oximetry 85 L Oxygen Delivery Method Room Air Sepsis Recent Fever Within 48 Hours Yes Sepsis New/Unexplained Change in Mental Status Yes Sepsis Action Taken by Nursing Physician Notified 08/14/24 15:48 08/14/24 15:54 08/14/24 16:00 Temperature Temperature Source Pulse Rate 128 H Pulse Rate [Right Finger] Pulse Rate from SpO2 Sensor 121 H Pulse Rhythm [Right Finger] Pulse Strength [Right Finger] Respiratory Rate 20 Respiratory Effort / Characteristics Respiratory Depth Respiratory Pattern Blood Pressure 82/60 L 130/82 Blood Pressure [Right Arm] Blood Pressure Mean 63 87 Blood Pressure Mean [Right Arm] Blood Pressure Position [Right Arm] Pulse Oximetry 94 Oxygen Delivery Method Sepsis Recent Fever Within 48 Hours Sepsis New/Unexplained Change in Mental Status Sepsis Action Taken by Nursing 08/14/24 16:00 08/14/24 16:00 08/14/24 16:00 Temperature Temperature Source Pulse Rate 108 H Pulse Rate [Right Finger] Pulse Rate from SpO2 Sensor 128 H Pulse Rhythm [Right Finger] Pulse Strength [Right Finger] Respiratory Rate 22 Respiratory Effort / Characteristics Respiratory Depth Respiratory Pattern Blood Pressure 130/82 130/82 Blood Pressure [Right Arm] Blood Pressure Mean 87 87 Blood Pressure Mean [Right Arm] Blood Pressure Position [Right Arm] Pulse Oximetry 92 Oxygen Delivery Method Sepsis Recent Fever Within 48 Hours Sepsis New/Unexplained Change in Mental Status Sepsis Action Taken by Nursing 08/14/24 16:09 08/14/24 16:30 08/14/24 16:30 Temperature Temperature Source Pulse Rate 120 H Pulse Rate [Right Finger] Pulse Rate from SpO2 Sensor 121 H Pulse Rhythm [Right Finger] Pulse Strength [Right Finger] Respiratory Rate Respiratory Effort / Characteristics Respiratory Depth Respiratory Pattern Blood Pressure 92/69 L 92/69 L Blood Pressure [Right Arm] Blood Pressure Mean 73 73 Blood Pressure Mean [Right Arm] Blood Pressure Position [Right Arm] Pulse Oximetry 96 Oxygen Delivery Method Sepsis Recent Fever Within 48 Hours Sepsis New/Unexplained Change in Mental Status Sepsis Action Taken by Nursing 08/14/24 16:33 08/14/24 16:39 08/14/24 16:45 Temperature Temperature Source Pulse Rate 116 H 111 H Pulse Rate [Right Finger] Pulse Rate from SpO2 Sensor 115 H 112 H Pulse Rhythm [Right Finger] Pulse Strength [Right Finger] Respiratory Rate 22 19 Respiratory Effort / Characteristics Respiratory Depth Respiratory Pattern Blood Pressure 102/70 Blood Pressure [Right Arm] Blood Pressure Mean 79 Blood Pressure Mean [Right Arm] Blood Pressure Position [Right Arm] Pulse Oximetry 97 97 Oxygen Delivery Method Sepsis Recent Fever Within 48 Hours Sepsis New/Unexplained Change in Mental Status Sepsis Action Taken by Nursing 08/14/24 16:45 08/14/24 16:51 08/14/24 16:57 Temperature Temperature Source Pulse Rate 115 H 107 H Pulse Rate [Right Finger] Pulse Rate from SpO2 Sensor 111 H 108 H Pulse Rhythm [Right Finger] Pulse Strength [Right Finger] Respiratory Rate 20 Respiratory Effort / Characteristics Respiratory Depth Respiratory Pattern Blood Pressure 102/70 Blood Pressure [Right Arm] Blood Pressure Mean 79 Blood Pressure Mean [Right Arm] Blood Pressure Position [Right Arm] Pulse Oximetry 97 96 Oxygen Delivery Method Sepsis Recent Fever Within 48 Hours Sepsis New/Unexplained Change in Mental Status Sepsis Action Taken by Nursing 08/14/24 17:00 08/14/24 17:03 08/14/24 17:09 Temperature Temperature Source Pulse Rate 105 H 115 H Pulse Rate [Right Finger] Pulse Rate from SpO2 Sensor 107 H 110 H Pulse Rhythm [Right Finger] Pulse Strength [Right Finger] Respiratory Rate 20 Respiratory Effort / Characteristics Respiratory Depth Respiratory Pattern Blood Pressure 98/66 L Blood Pressure [Right Arm] Blood Pressure Mean 67 Blood Pressure Mean [Right Arm] Blood Pressure Position [Right Arm] Pulse Oximetry 97 95 Oxygen Delivery Method Sepsis Recent Fever Within 48 Hours Sepsis New/Unexplained Change in Mental Status Sepsis Action Taken by Nursing 08/14/24 17:15 08/14/24 17:18 08/14/24 17:21 Temperature Temperature Source Pulse Rate 118 H 117 H Pulse Rate [Right Finger] Pulse Rate from SpO2 Sensor 119 H 120 H Pulse Rhythm [Right Finger] Pulse Strength [Right Finger] Respiratory Rate 16 22 Respiratory Effort / Characteristics Respiratory Depth Respiratory Pattern Blood Pressure 114/75 Blood Pressure [Right Arm] Blood Pressure Mean 82 Blood Pressure Mean [Right Arm] Blood Pressure Position [Right Arm] Pulse Oximetry 97 98 Oxygen Delivery Method Sepsis Recent Fever Within 48 Hours Sepsis New/Unexplained Change in Mental Status Sepsis Action Taken by Nursing 08/14/24 17:30 08/14/24 17:39 08/14/24 17:47 Temperature Temperature Source Pulse Rate 120 H 123 H Pulse Rate [Right Finger] Pulse Rate from SpO2 Sensor 108 H 108 H Pulse Rhythm [Right Finger] Pulse Strength [Right Finger] Respiratory Rate 21 Respiratory Effort / Characteristics Respiratory Depth Respiratory Pattern Blood Pressure 99/55 L Blood Pressure [Right Arm] Blood Pressure Mean 69 Blood Pressure Mean [Right Arm] Blood Pressure Position [Right Arm] Pulse Oximetry 96 100 Oxygen Delivery Method Sepsis Recent Fever Within 48 Hours Sepsis New/Unexplained Change in Mental Status Sepsis Action Taken by Nursing 08/14/24 17:51 08/14/24 18:00 08/14/24 18:06 Temperature Temperature Source Pulse Rate 103 H 102 H Pulse Rate [Right Finger] Pulse Rate from SpO2 Sensor 102 H 106 H Pulse Rhythm [Right Finger] Pulse Strength [Right Finger] Respiratory Rate 18 18 Respiratory Effort / Characteristics Respiratory Depth Respiratory Pattern Blood Pressure 95/51 L Blood Pressure [Right Arm] Blood Pressure Mean 60 Blood Pressure Mean [Right Arm] Blood Pressure Position [Right Arm] Pulse Oximetry 99 98 Oxygen Delivery Method Sepsis Recent Fever Within 48 Hours Sepsis New/Unexplained Change in Mental Status Sepsis Action Taken by Nursing 08/14/24 18:09 08/14/24 18:27 08/14/24 18:30 Temperature Temperature Source Pulse Rate 105 H 99 H 96 H Pulse Rate [Right Finger] Pulse Rate from SpO2 Sensor 101 H 97 H 99 H Pulse Rhythm [Right Finger] Pulse Strength [Right Finger] Respiratory Rate 18 17 Respiratory Effort / Characteristics Respiratory Depth Respiratory Pattern Blood Pressure Blood Pressure [Right Arm] Blood Pressure Mean Blood Pressure Mean [Right Arm] Blood Pressure Position [Right Arm] Pulse Oximetry 99 97 97 Oxygen Delivery Method Sepsis Recent Fever Within 48 Hours Sepsis New/Unexplained Change in Mental Status Sepsis Action Taken by Nursing 08/14/24 18:30 08/14/24 18:30 08/14/24 18:30 Temperature Temperature Source Pulse Rate Pulse Rate [Right Finger] Pulse Rate from SpO2 Sensor Pulse Rhythm [Right Finger] Pulse Strength [Right Finger] Respiratory Rate Respiratory Effort / Characteristics Respiratory Depth Respiratory Pattern Blood Pressure 85/55 L 85/55 L 85/55 L Blood Pressure [Right Arm] Blood Pressure Mean 64 64 64 Blood Pressure Mean [Right Arm] Blood Pressure Position [Right Arm] Pulse Oximetry Oxygen Delivery Method Sepsis Recent Fever Within 48 Hours Sepsis New/Unexplained Change in Mental Status Sepsis Action Taken by Nursing 08/14/24 18:30 08/14/24 18:30 08/14/24 18:36 Temperature Temperature Source Pulse Rate 99 H Pulse Rate [Right Finger] Pulse Rate from SpO2 Sensor 103 H Pulse Rhythm [Right Finger] Pulse Strength [Right Finger] Respiratory Rate 21 Respiratory Effort / Characteristics Respiratory Depth Respiratory Pattern Blood Pressure 85/55 L 85/55 L Blood Pressure [Right Arm] Blood Pressure Mean 64 64 Blood Pressure Mean [Right Arm] Blood Pressure Position [Right Arm] Pulse Oximetry 98 Oxygen Delivery Method Sepsis Recent Fever Within 48 Hours Sepsis New/Unexplained Change in Mental Status Sepsis Action Taken by Nursing 08/14/24 18:45 08/14/24 18:45 08/14/24 19:01 Temperature Temperature Source Pulse Rate Pulse Rate [Right Finger] 99 H Pulse Rate from SpO2 Sensor Pulse Rhythm [Right Finger] Regular Pulse Strength [Right Finger] Normal Respiratory Rate 27 H Respiratory Effort / Characteristics Non-Labored Respiratory Depth Normal Respiratory Pattern Regular Blood Pressure 106/65 106/65 Blood Pressure [Right Arm] 97/57 L Blood Pressure Mean 87 87 Blood Pressure Mean [Right Arm] 70 Blood Pressure Position [Right Arm] Lying Pulse Oximetry 98 Oxygen Delivery Method Room Air Sepsis Recent Fever Within 48 Hours Sepsis New/Unexplained Change in Mental Status Sepsis Action Taken by Nursing 08/14/24 20:08 Temperature Temperature Source Pulse Rate Pulse Rate [Right Finger] 96 H Pulse Rate from SpO2 Sensor Pulse Rhythm [Right Finger] Regular Pulse Strength [Right Finger] Normal Respiratory Rate Respiratory Effort / Characteristics Respiratory Depth Respiratory Pattern Blood Pressure Blood Pressure [Right Arm] 83/53 L Blood Pressure Mean Blood Pressure Mean [Right Arm] 63 Blood Pressure Position [Right Arm] Lying Pulse Oximetry 98 Oxygen Delivery Method Room Air Sepsis Recent Fever Within 48 Hours Sepsis New/Unexplained Change in Mental Status Sepsis Action Taken by Nursing Laboratory Data 08/14/24 15:47 08/14/24 15:47 Lab Results 08/14/24 08/14/24 08/14/24 Range/Units 15:47 15:59 17:40 WBC 16.17 H (4.8-10.8) K/ul RBC 4.40 (4.20-5.40) M/uL Hgb 12.7 (12.0-16.0) g/dl POC Hgb 12.6 (12.0-16.0) g/dl Hct 39.3 (37.0-47.0) % POC Hct 37 (37-47) % MCV 89.3 (80.0-100.0) fL MCH 28.9 (25.0-34.0) pg MCHC 32.3 (32.0-36.0) g/dL RDW Std Deviation 50.2 H (36.4-46.3) fL RDW Coeff of Rodolfo 15.2 H (11.5-14.5) % Plt Count 230 (130-400) K/uL MPV 10.3 (9.4-12.4) fL Immature Gran % (Auto) 0.4 % Neut % (Auto) 93.3 % Lymph % (Auto) 4.2 % [place] % (Auto) 2.0 % Eos % (Auto) 0.0 % Baso % (Auto) 0.1 % Neut # (Auto) 15.09 H (1.40-6.50) K/uL Lymph # (Auto) 0.68 L (1.20-3.40) K/uL [place] # (Auto) 0.32 (0.11-0.59) K/uL Eos # (Auto) 0.00 (0.00-0.50) K/uL Baso # (Auto) 0.02 (0.00-0.20) K/uL Immature Gran # (Auto) 0.06 (0.01-0.20) K/uL PT 13.8 H (9.0-12.0) Seconds INR 1.3 H (0.9-1.1) POC Sodium 133 L (135-144) mmol/L Sodium 134 L (136-145) mmol/L POC Potassium 4.2 (3.3-5.0) mmol/L Potassium 4.3 (3.5-5.1) mmol/L POC Chloride 98 L (101-112) mmol/L Chloride 97 L (98-107) mmol/L Carbon Dioxide 25 (21-32) mmol/L POC Total CO2 24 (24-31) mmol/L Anion Gap 12 H (3-11) POC Anion Gap 16.0 (16-25) mmol/L POC BUN 38 H (7-18) mg/dl BUN 41 H (6-23) mg/dl Creatinine 2.29 H (0.6-1.2) mg/dl POC Creatinine 2.7 H (0.6-1.3) mg/dl Est Cr Clr Drug Dosing 21.5 ml/min eGFR 21.47 BUN/Creatinine Ratio 17.9 (10-20) Glucose 102 H (70-99(Fasting)) mg/dl POC Glucose (other) 103 H (70-99) mg/dl Lactate 2.9 H* 1.6 (0.4-2.0) mmol/L Calcium 9.1 (8.6-10.3) mg/dl POC Ioniz Calcium [place] 1.14 (1.12-1.32) mmol/l Magnesium 1.8 (1.7-2.4) mg/dl Total Bilirubin 0.9 (0.2-1.0) mg/dl AST 10 L (13-39) U/L ALT 9 (7-52) U/L Alkaline Phosphatase 127 H (34-104) U/L Troponin I High Sens 28.4 H 59.5 H* D (0-14) pg/ml Total Protein 6.0 (6.0-8.3) gm/dl Albumin 2.8 L (3.4-5.0) gm/dl Globulin 3.2 (2.5-4.0) gm/dl Albumin/Globulin Ratio 0.9 (0.9-2) Lipase 4 L (11-82) U/L Procalcitonin 8.57 H (0-0.5) ng/ml Urine Color Urine Appearance (Clear) Urine pH (4.5-7.5) Ur Specific [place] (1.000-1.030) Urine Protein (Negative) Urine Glucose (UA) (Negative) Urine Ketones (Negative) Urine Blood (Negative) Urine Nitrite (Negative) Urine Bilirubin (Negative) Urine Urobilinogen (Negative) Ur Leukocyte Esterase (Negative) Urine RBC (0-2) /hpf Urine WBC (0-5) /hpf Ur Epithelial Cells (0-2) /hpf Urine Bacteria (None Seen) Adenovirus (PCR) (NotDetected) B. pertussis DNA (PCR) (NotDetected) B.parapertussis DNA PCR (NotDetected) C. pneumoniae DNA (PCR) (NotDetected) Coronavirus OC43 (PCR) (NotDetected) Coronavirus HKU1 (PCR) (NotDetected) Coronavirus 229E (PCR) (NotDetected) SARS-CoV-2 (PCR) (NotDetected) Coronavirus NL63 (PCR) (NotDetected) Human Metapneumovir PCR (NotDetected) Influenza Type A (PCR) (NotDetected) Influenza Type B (PCR) (NotDetected) M. pneumoniae (PCR) (NotDetected) Parainfluenza 1 (PCR) (NotDetected) Parainfluenza 2 (PCR) (NotDetected) Parainfluenza 3 (PCR) (NotDetected) Parainfluenza 4 (PCR) (NotDetected) RSV (PCR) (NotDetected) Entero/Rhino (PCR) (NotDetected) 08/14/24 08/14/24 Range/Units 18:05 Unknown WBC (4.8-10.8) K/ul RBC (4.20-5.40) M/uL Hgb (12.0-16.0) g/dl POC Hgb (12.0-16.0) g/dl Hct (37.0-47.0) % POC Hct (37-47) % MCV (80.0-100.0) fL MCH (25.0-34.0) pg MCHC (32.0-36.0) g/dL RDW Std Deviation (36.4-46.3) fL RDW Coeff of Rodolfo (11.5-14.5) % Plt Count (130-400) K/uL MPV (9.4-12.4) fL Immature Gran % (Auto) % Neut % (Auto) % Lymph % (Auto) % [place] % (Auto) % Eos % (Auto) % Baso % (Auto) % Neut # (Auto) (1.40-6.50) K/uL Lymph # (Auto) (1.20-3.40) K/uL [place] # (Auto) (0.11-0.59) K/uL Eos # (Auto) (0.00-0.50) K/uL Baso # (Auto) (0.00-0.20) K/uL Immature Gran # (Auto) (0.01-0.20) K/uL PT (9.0-12.0) Seconds INR (0.9-1.1) POC Sodium (135-144) mmol/L Sodium (136-145) mmol/L POC Potassium (3.3-5.0) mmol/L Potassium (3.5-5.1) mmol/L POC Chloride (101-112) mmol/L Chloride (98-107) mmol/L Carbon Dioxide (21-32) mmol/L POC Total CO2 (24-31) mmol/L Anion Gap (3-11) POC Anion Gap (16-25) mmol/L POC BUN (7-18) mg/dl BUN (6-23) mg/dl Creatinine (0.6-1.2) mg/dl POC Creatinine (0.6-1.3) mg/dl Est Cr Clr Drug Dosing ml/min eGFR BUN/Creatinine Ratio (10-20) Glucose (70-99(Fasting)) mg/dl POC Glucose (other) (70-99) mg/dl Lactate (0.4-2.0) mmol/L Calcium (8.6-10.3) mg/dl POC Ioniz Calcium [place] (1.12-1.32) mmol/l Magnesium (1.7-2.4) mg/dl Total Bilirubin (0.2-1.0) mg/dl AST (13-39) U/L ALT (7-52) U/L Alkaline Phosphatase (34-104) U/L Troponin I High Sens (0-14) pg/ml Total Protein (6.0-8.3) gm/dl Albumin (3.4-5.0) gm/dl Globulin (2.5-4.0) gm/dl Albumin/Globulin Ratio (0.9-2) Lipase (11-82) U/L Procalcitonin (0-0.5) ng/ml Urine Color Brown Urine Appearance Turbid A (Clear) Urine pH 7.0 (4.5-7.5) Ur Specific [place] 1.015 (1.000-1.030) Urine Protein 2+ H (Negative) Urine Glucose (UA) Negative (Negative) Urine Ketones Negative (Negative) Urine Blood 3+ H (Negative) Urine Nitrite Negative (Negative) Urine Bilirubin Negative (Negative) Urine Urobilinogen Negative (Negative) Ur Leukocyte Esterase 2+ H (Negative) Urine RBC >20 H (0-2) /hpf Urine WBC >50 H (0-5) /hpf Ur Epithelial Cells 0-2 (0-2) /hpf Urine Bacteria 3+ H (None Seen) Adenovirus (PCR) Not Detected (NotDetected) B. pertussis DNA (PCR) Not Detected (NotDetected) B.parapertussis DNA PCR Not Detected (NotDetected) C. pneumoniae DNA (PCR) Not Detected (NotDetected) Coronavirus OC43 (PCR) Not Detected (NotDetected) Coronavirus HKU1 (PCR) Not Detected (NotDetected) Coronavirus 229E (PCR) Not Detected (NotDetected) SARS-CoV-2 (PCR) Not Detected (NotDetected) Coronavirus NL63 (PCR) Not Detected (NotDetected) Human Metapneumovir PCR Not Detected (NotDetected) Influenza Type A (PCR) Not Detected (NotDetected) Influenza Type B (PCR) Not Detected (NotDetected) M. pneumoniae (PCR) Not Detected (NotDetected) Parainfluenza 1 (PCR) Not Detected (NotDetected) Parainfluenza 2 (PCR) Not Detected (NotDetected) Parainfluenza 3 (PCR) Not Detected (NotDetected) Parainfluenza 4 (PCR) Not Detected (NotDetected) RSV (PCR) Not Detected (NotDetected) Entero/Rhino (PCR) Not Detected (NotDetected) Administered Medications Norepinephrine Bitartrate (Levophed/D5w) 4 mg in 250 mls @ 18.3 mls/hr IV .[id number] ANA PAULA; Protocol Stop: 09/13/24 20:29 Last Admin: 08/14/24 20:45 Dose: 0.05 mcg/kg/min, 18.3 mls/hr Documented By: RAYSHAWN Co-signed By: SHB Discontinued Medications Piperacillin Sod/Tazobactam Sod (Zosyn) 4.5 gm in 100 mls @ 200 mls/hr IV NOW ONE; Protocol Stop: 08/14/24 16:10 Last Infusion: 08/14/24 16:43 Dose: Infused Documented By: Admin: 08/14/24 16:05 Dose: 200 mls/hr Documented By: GIANNA Sodium Chloride (Nss) 500 mls @ 999 mls/hr IV .Q31M ONE Stop: 08/14/24 16:42 Last Infusion: 08/14/24 17:19 Dose: Infused Documented By: Admin: 08/14/24 16:43 Dose: 999 mls/hr Documented By: [email or web address] Sodium Chloride (Nss) 500 mls @ 999 mls/hr IV .Q31M ONE Stop: 08/14/24 18:49 Last Infusion: 08/14/24 19:03 Dose: Infused Documented By: Admin: 08/14/24 18:34 Dose: 999 mls/hr Documented By: ADRIAN Sodium Chloride (Nss) 1,000 mls @ 999 mls/hr IV .Q1H1M ANA PAULA Stop: 08/14/24 19:51 Last Infusion: 08/14/24 20:08 Dose: Infused Documented By: Admin: 08/14/24 19:03 Dose: 999 mls/hr Documented By: SHB Imaging Data Radiologist's Impression: Chest X-Ray 08/14/24 15:18 INDICATION: Chest pain. TECHNIQUE: Frontal radiograph of the chest. COMPARISON: 06/23/2024. FINDINGS: Cardiomegaly. Mild pulmonary vascular congestion. Subsegmental atelectasis in the lung bases. No infiltrate, pleural effusion or pneumothorax. No acute osseous abnormality evident. IMPRESSION: Mild pulmonary vascular congestion. Electronically signed by Kirit Rich 08-14-2024 4:[address] 08/14/24 15:18 INDICATION: Altered mental status and weakness. COMPARISON: CT from 12/08/2022. TECHNIQUE: Axial CT images of the head were obtained without IV contrast. Coronal and sagittal reformations were reviewed. FINDINGS: Nunez-white differentiation is relatively preserved. No mass, mass effect or midline shift. Mild to moderate chronic ischemic white matter changes. No evidence of acute large territorial infarction or acute intracranial hemorrhage. Ventricles appear normal in size. Basal cisterns are patent. No depressed calvarial fracture. IMPRESSION: No acute intracranial process. Electronically signed by Kirit Rich 08-14-2024 4:38 PM Abdomen/Pelvis CT 08/14/24 16:02 INDICATION: Altered mental status. History of ureteral stents. COMPARISON: CT abdomen pelvis from 06/26/2024. TECHNIQUE: Axial CT images of the abdomen and pelvis were obtained without IV contrast administration. Coronal and sagittal reformations were reviewed. FINDINGS: Subsegmental atelectasis in the lung bases. Cardiomegaly. The liver, gallbladder, spleen, pancreas and adrenal glands appear unremarkable. Left ureteral stent noted which appears in appropriate position. Mild bilateral hydronephrosis. No obstructing ureteral calculi. The urinary bladder is not distended and contains a Cobb catheter. Exophytic left renal cysts again noted. Nonobstructing renal calculi measuring up to 1.3 cm on the right and 0.7 cm left No evidence of bowel obstruction/colitis/appendicitis. No free air. No drainable fluid collection. Degenerative changes in the spine. Left hip prosthesis. L2, L3 and L5 compression deformities again noted. No acute fracture. IMPRESSION: 1. Left ureteral stent noted which appears in appropriate position. 2. Mild bilateral hydronephrosis. No obstructing ureteral calculi. 3. Exophytic left renal cysts again noted. Nonobstructing renal calculi measuring up to 1.3 cm on the right and 0.7 cm left. Electronically signed by Kirit Rich 08-14-2024 4:46 PM Discharge Plan Visit Data Chief Complaint: Illness Stated Complaint: ILLNESS ED Provider: Ivan Pan Discharge Problem: Severe sepsis, Chronic indwelling Cobb catheter, Acute UTI, Elevated troponin Patient Disposition: Being Evaluated by Hospitalist Forms Stand Alone Forms: [facility] Prescriptions Prescriptions: No Action oxybutynin chloride 5 mg tablet 5 mg PO Q8H PRN (Reason: bladder spasms) Qty: 30 0RF atorvastatin 80 mg tablet 80 mg PO HS metoprolol succinate 50 mg tablet extended release 24 hr 50 mg PO AMHS acetaminophen [Tylenol Extra Strength] 500 mg Tablet 500 mg PO Q6H MDD 3gmAPAP/24hrs PRN (Reason: Fever Or Pain) spironolactone 25 mg tablet 25 mg PO QAM lansoprazole 30 mg capsule,delayed release(DR/EC) 30 mg PO BID Eliquis 5 mg tablet 5 mg PO AMHS sucralfate [Carafate] 1 gram Tablet 1 g PO ACHS docusate sodium [Colace] 100 mg Capsule 200 mg PO HS mirtazapine [Remeron] 15 mg Tablet 15 mg PO HS tamsulosin 0.4 mg Capsule 0.4 mg PO HS Qty: 30 0RF tramadol 50 mg Tablet 50 mg PO Q12H PRN (Reason: pain) Qty: 10 0RF methenamine hippurate 1 gram tablet 1 g PO BID Qty: 60 0RF montelukast 10 mg Tablet 10 mg PO QAM ferrous sulfate 325 mg (65 mg iron) Tablet,Delayed Release (Dr/Ec) 325 mg PO Q OTHER DAY Patient Comments: in am loperamide 2 mg Tablet 2 mg PO Q4H PRN (Reason: Diarrhea) Rx Instructions: administer after each loose stool until symptoms controlled; do not exceed 8 mg per 24 hrs ascorbic acid (vitamin C) [Vitamin C] 500 mg Tablet 500 mg PO BID polyethylene glycol 3350 17 gram/dose Powder 17 g PO DAILY PRN (Reason: Constipation) Mucinex Sinus-Max Sev Congestn 5-325-200 mg Tablet 2 tab PO Q12 PRN (Reason: Congestion) zinc oxide 20 % Ointment 1 applic TOPICAL BID cranberry extract [Cranberry Concentrate] 500 mg Capsule 500 mg PO QAM Rx Instructions: administer with meals Saccharomyces boulardii [Florastor] 250 mg Capsule 250 mg PO QAM diclofenac sodium [Voltaren Arthritis Pain] 1 % gel 2 g EXT QID Referrals Referrals: PCP,NO [Physician] -
[2024-08-14] MEDS: PIPERACILLIN/TAZOBACTAM 4.5 GM/100 ML BAG IV ONE (16:05)
[2024-08-14 16:12] LABS: iSTAT Creatinine 2.7 mg/dl (0.6-1.3); iSTAT Hemoglobin 12.6 g/dl (12.0-16.0); iSTAT Ionized Calcium 1.14 mmol/l (1.12-1.32); iSTAT Potassium 4.2 mmol/L (3.3-5.0)
[2024-08-14 16:19] LABS: Hematocrit (blood only) 39.3 % (37.0-47.0); Hemoglobin 12.7 g/dl (12.0-16.0); Mean Corpuscular Hemoglobin 28.9 pg (25.0-34.0); Mean Corpuscular Hgb Conc 32.3 g/dL (32.0-36.0); Mean Corpuscular Volume 89.3 fL (80.0-100.0); Mean Platelet Volume 10.3 fL (9.4-12.4); Platelet Count 230 K/uL (130-400); RDW Coefficient of Variation 15.2 % (11.5-14.5); RDW Standard Deviation 50.2 fL (36.4-46.3); White Blood Count 16.17 K/ul (4.8-10.8)
--- NOTE | 2024-08-14 16:38 | XRay Report ---
INDICATION: Chest pain. TECHNIQUE: Frontal radiograph of the chest. COMPARISON: 06/23/2024. FINDINGS: Cardiomegaly. Mild pulmonary vascular congestion. Subsegmental atelectasis in the lung bases. No infiltrate, pleural effusion or pneumothorax. No acute osseous abnormality evident. IMPRESSION: Mild pulmonary vascular congestion. Electronically signed by Kirit Rich 08-14-2024 4:37 PM
--- NOTE | 2024-08-14 16:39 | CT Scan Report ---
INDICATION: Altered mental status and weakness. COMPARISON: CT from 12/08/2022. TECHNIQUE: Axial CT images of the head were obtained without IV contrast. Coronal and sagittal reformations were reviewed. FINDINGS: Nunez-white differentiation is relatively preserved. No mass, mass effect or midline shift. Mild to moderate chronic ischemic white matter changes. No evidence of acute large territorial infarction or acute intracranial hemorrhage. Ventricles appear normal in size. Basal cisterns are patent. No depressed calvarial fracture. IMPRESSION: No acute intracranial process. Electronically signed by Kirit Rich 08-14-2024 4:38 PM
[2024-08-14 16:42] LABS: Albumin Globulin Ratio 0.9 (0.9-2); Albumin Level 2.8 gm/dl (3.4-5.0); BUN Creatinine Ratio 17.9 (10-20); Bilirubin,Total 0.9 mg/dl (0.2-1.0); Calcium 9.1 mg/dl (8.6-10.3); Creatinine Clr Calc Pharmacy 21.5 ml/min; Globulin 3.2 gm/dl (2.5-4.0); Magnesium 1.8 mg/dl (1.7-2.4); Potassium 4.3 mmol/L (3.5-5.1)
[2024-08-14] MEDS: SODIUM CHLORIDE 0.9% 500 ML IV ONE ×2 (16:43→18:34)
[2024-08-14 16:44] LABS: INR 1.3 (0.9-1.1); Prothrombin Time 13.8 Seconds (9.0-12.0)
[2024-08-14 16:46] LABS: Troponin I High Sensitivity 28.4 pg/ml (0-14)
--- NOTE | 2024-08-14 16:46 | CT Scan Report ---
INDICATION: Altered mental status. History of ureteral stents. COMPARISON: CT abdomen pelvis from 06/26/2024. TECHNIQUE: Axial CT images of the abdomen and pelvis were obtained without IV contrast administration. Coronal and sagittal reformations were reviewed. FINDINGS: Subsegmental atelectasis in the lung bases. Cardiomegaly. The liver, gallbladder, spleen, pancreas and adrenal glands appear unremarkable. Left ureteral stent noted which appears in appropriate position. Mild bilateral hydronephrosis. No obstructing ureteral calculi. The urinary bladder is not distended and contains a Osorio catheter. Exophytic left renal cysts again noted. Nonobstructing renal calculi measuring up to 1.3 cm on the right and 0.7 cm left No evidence of bowel obstruction/colitis/appendicitis. No free air. No drainable fluid collection. Degenerative changes in the spine. Left hip prosthesis. L2, L3 and L5 compression deformities again noted. No acute fracture. IMPRESSION: 1. Left ureteral stent noted which appears in appropriate position. 2. Mild bilateral hydronephrosis. No obstructing ureteral calculi. 3. Exophytic left renal cysts again noted. Nonobstructing renal calculi measuring up to 1.3 cm on the right and 0.7 cm left. Electronically signed by Kirit Rich 08-14-2024 4:46 PM
[2024-08-14 16:51] LABS: Basophils # (auto) 0.02 K/uL (0.00-0.20); Basophils % (auto) 0.1 %; Immature Granulocytes # (auto) 0.06 K/uL (0.01-0.20); Immature Granulocytes % (auto) 0.4 %; Lymphocytes # (auto) 0.68 K/uL (1.20-3.40); Lymphocytes % (auto) 4.2 %; Monocytes # (auto) 0.32 K/uL (0.11-0.59); Neutrophils # (auto) 15.09 K/uL (1.40-6.50); Neutrophils % (auto) 93.3 %
[2024-08-14 17:10] LABS: Adenovirus PCR Not Detected (NotDetected); Bordetella parapertussis PCR Not Detected (NotDetected); Bordetella pertussis PCR Not Detected (NotDetected); Chlamydia pneumoniae PCR Not Detected (NotDetected); Coronavirus 229E PCR Not Detected (NotDetected); Coronavirus CoV-2 (COVID19)PCR Not Detected (NotDetected); Coronavirus HKU1 PCR Not Detected (NotDetected); Coronavirus NL63 PCR Not Detected (NotDetected); Coronavirus OC43PCR Not Detected (NotDetected); Human Metapneumovirus PCR Not Detected (NotDetected); Influenza A PCR Not Detected (NotDetected); Influenza B PCR Not Detected (NotDetected); Mycoplasma pneumoniae PCR Not Detected (NotDetected); Parainfluenza Virus 1 PCR Not Detected (NotDetected); Parainfluenza Virus 2 PCR Not Detected (NotDetected); Parainfluenza Virus 3 PCR Not Detected (NotDetected); Parainfluenza Virus 4 PCR Not Detected (NotDetected); Respiratory Syncytial VirusPCR Not Detected (NotDetected); Rhinovirus/Enterovirus PCR Not Detected (NotDetected)
[2024-08-14 18:53] LABS: Appearance Urine Turbid (Clear); Color Urine Brown
[2024-08-14 18:55] LABS: Leukocyte Esterase Urine 2+ (Negative); Protein Urine 2+ (Negative)
[2024-08-14 18:56] LABS: Bilirubin Urine Negative (Negative); Glucose Urine UA Negative (Negative); Ketones Urine Negative (Negative)
[2024-08-14 18:57] LABS: Nitrite Urine Negative (Negative); Specific Gravity Urine 1.015 (1.000-1.030); Urobilinogen Urine Negative (Negative)
[2024-08-14 18:58] LABS: Blood Urine 3+ (Negative)
[2024-08-14 19:00] LABS: RBC Urine >20 /hpf (0-2); WBC Urine >50 /hpf (0-5)
[2024-08-14 19:02] LABS: Bacteria Urine 3+ (None Seen); Epithelial Cell Urine 0-2 /hpf (0-2)
[2024-08-14] MEDS: SODIUM CHLORIDE 0.9% 1,000 ML IV SCH (19:03)
--- NOTE | 2024-08-14 19:11 | History & Physical Report ---
Date of Service August 14, 2024 Assessment & Plan (1) Severe sepsis with acute organ dysfunction due to Gram negative bacteria: (2) Acute renal failure superimposed on chronic kidney disease: (3) Demand ischemia of myocardium: (4) Complicated urinary tract infection: (5) Acute metabolic encephalopathy: (6) Infection associated with indwelling ureteral stent: (7) Chronic indwelling Cobb catheter: (8) Morbid obesity: (9) Atrial fibrillation: (10) Pulmonary hypertension: Plan Patient with severe sepsis with acute organ dysfunction due to complicated UTI from chronic indwelling ureteral stent and Cobb catheter as present on admission. Sepsis evidenced by metabolic encephalopathy, acute kidney injury, demand ischemia, hypotension that is responding to fluid resuscitation. Patient is critically ill and requires hospital level care, interventions, laboratory monitoring and IV medications Admit to monitored unit Will continue patient on cefepime based on sensitivities from outside urine culture Fluid resuscitation Monitor laboratory studies and renal function Monitor blood cultures, suspect patient may be bacteremic based on her presenting clinical picture Continue home medications as ordered, hold nephrotoxins Discussed advanced directives with patient, request DNR/DNI. This is consistent with her previous hospitalizations History of Present Illness Chief Complaint: Altered mental status, known abnormal urine, weak and lethargy Primary Care Provider: Pavan Mckeon MD Patient is a 78-year-old female chronic indwelling Cobb catheter and ureteral stents for hydronephrosis. Had outpatient urine culture done on 08/04/2024 that has subsequently grown E. coli. Per reports the patient has not received any antibiotics yet for this a E. coli urinary tract infection. Came to the emergency room with weakness, altered mental status and lethargy. In the emergency room that had a elevated white count, elevated procalcitonin, acute kidney injury and hypotensive. Also in the Cobb was exchanged loraine pus came out of the bladder. She received some IV fluid hydration, antibiotics in ED and referred to our service for further evaluation. Time my evaluation patient continues to complain of severe weakness. Her blood pressure has improved slightly with just 500 cc bolus at the time of my evaluation. Additional 500 cc is going in now. Her mentation is a bit clear. She denies any fevers. No abdominal pain. Is able to answer questions appropriately. Allergies Allergy/AdvReac Type Severity Reaction Status Date / Time doxycycline Allergy Intermediate Swelling Verified 08/14/24 15:45 tetracycline Allergy Mild Eye Verified 08/14/24 15:45 swelling NARINDER Inhibitors AdvReac Intermediate Cough Verified 08/14/24 15:45 codeine AdvReac Mild [place] Verified 08/14/24 15:45 "crazy" Sulfa (Sulfonamide AdvReac Mild Gastrointestinal Verified 08/14/24 15:45 Antibiotics) Upset Home Medications Medication Instructions Recorded Confirmed Type acetaminophen 500 mg tablet 500 mg PO Q6H PRN Fever Or Pain 06/28/23 08/14/24 History (Tylenol Extra Strength) apixaban 5 mg tablet (Eliquis) 5 mg PO AMHS 06/28/23 08/14/24 History atorvastatin 80 mg tablet 80 mg PO HS 06/28/23 08/14/24 History lansoprazole 30 mg capsule,delayed 30 mg PO BID 06/28/23 08/14/24 History release metoprolol succinate 50 mg 50 mg PO AMHS 06/28/23 08/14/24 History tablet,extended release 24 hr spironolactone 25 mg tablet 25 mg PO [facility] 06/28/23 08/14/24 History docusate sodium 100 mg capsule 200 mg PO HS 09/14/23 08/14/24 History (Colace) mirtazapine 15 mg tablet (Remeron) 15 mg PO HS 09/14/23 08/14/24 History sucralfate 1 gram tablet (Carafate) 1 g PO ACHS 09/14/23 08/14/24 History ferrous sulfate 325 mg (65 mg 325 mg PO Q OTHER DAY 04/03/24 08/14/24 History iron) tablet,delayed release montelukast 10 mg tablet 10 mg PO QAM 04/03/24 08/14/24 History tamsulosin 0.4 mg capsule 0.4 mg PO HS #30 caps 06/14/24 08/14/24 Rx tramadol 50 mg tablet 50 mg PO Q12H PRN pain #10 tabs 06/14/24 08/14/24 Rx methenamine hippurate 1 gram tablet 1 g PO BID #60 tabs 06/15/24 08/14/24 Rx ascorbic acid (vitamin C) 500 mg 500 mg PO BID 07/10/24 08/14/24 History tablet (Vitamin C) loperamide 2 mg tablet 2 mg PO Q4H PRN Diarrhea 07/10/24 08/14/24 History fbjrihnjsmhly-lsrkhaahlwehc-ifmcwfgcuho 2 tab PO Q12 PRN Congestion 07/10/24 08/14/24 History 5 mg-325 mg-200 mg tablet (Mucinex Sinus-Max Severe Congestion Relief) polyethylene glycol 3350 17 17 g PO DAILY PRN Constipation 07/10/24 08/14/24 History gram/dose oral powder oxybutynin chloride 5 mg tablet 5 mg PO Q8H PRN bladder spasms #30 07/17/24 08/14/24 Rx tabs Saccharomyces boulardii 250 mg 250 mg PO QAM 08/14/24 08/14/24 History capsule (Florastor) cranberry extract 500 mg capsule 500 mg PO QAM 08/14/24 08/14/24 History (Cranberry Concentrate) diclofenac sodium 1 % topical gel 2 g EXT QID Pain 08/14/24 08/14/24 History (Voltaren Arthritis Pain) zinc oxide 20 % topical ointment 1 applic topical BID 08/14/24 08/14/24 History Past Med/Surg History Problem List (Updated 08/14/24 @ 19:09 by Dc Aguirre DO) Acute metabolic encephalopathy Demand ischemia of myocardium Acute renal failure superimposed on chronic kidney disease Severe sepsis with acute organ dysfunction due to Gram negative bacteria Sacral back pain Infection associated with indwelling ureteral stent (Acute) Hematuria (Acute) Complicated urinary tract infection (Acute) Protein malnutrition Bilateral hydronephrosis Chronic indwelling Cobb catheter (Acute) Nephrolithiasis Urinary retention Calculus of left kidney Morbid obesity Atrial fibrillation (Acute) Encounter for pre-operative examination Deep vein thrombosis Hypertension Hyperlipidemia Asthma Osteoarthritis of knees, bilateral Chronic GERD Medical History (Updated 08/14/24 @ 19:09 by Dc Aguirre DO) Obesity Pulmonary hypertension moderate per 06/2023 ECHO (PASP 47mmHg) Skin breakdown sacral skin breakdown per 06/2024 hospitalization; pt to follow with wound care at [facility] 2 or more hospital admissions in past 6 months admitted [facility] 06/08-06/15/24: dx: complicated UTI, chronic indwelling cobb c atheter, calculus of L kidney, b/l hydronephrosis. admitted [facility] 06/26- 06/30/24: dx: infection associated with indwelling uteretal stent, hematuria, acute L flank pain: pt D/C on Cefdinir (pt also noted to have sacral skin area breakdown during admission and pt to f/u with wound care at [facility]) History of anemia History of posterior vitreous detachment B/L History of asthma "Well controlled" Chronic indwelling Cobb catheter Hydronephrosis of left kidney Diabetes mellitus, type II Diet controlled Overactive bladder HTN (hypertension) GERD (gastroesophageal reflux disease) Hyperlipidemia Hx of vertigo Hx of cancer of uterus 2013- radiation Hx pulmonary embolism Remote hx years ago In setting of prolonged sitting/immobility during a previous hospitalization per records Urinary retention Cobb cath in place Atrial fibrillation Taking Eliquis History of home oxygen therapy not currently [facility] resident Resides at [facility] Nontoxic thyroid nodule Hx: UTI (urinary tract infection) Recurrent Hx of sepsis Lipodermatosclerosis Chronic bronchitis 'Bronchial asthma' Acquired lymphedema "Stomach" Gets therapy/massage to manage > was complication after radiation treatment per previous PAT RN notation IBS (irritable bowel syndrome) Surgical History (System 08/14/24 @ 15:45 by Dinora Finley) History of anesthesia reaction Awareness with D&C and colonoscopy History of open reduction and internal fixation (ORIF) procedure (06/2023) left femur fx Hx of cystoscopy Multiple; most recent: 04/13/24: MAC without issue History of cataract surgery (2020) R/L History of dilatation and curettage History of esophagogastroduodenoscopy (EGD) History of colonoscopy History of bilateral tubal ligation History of cholecystectomy Hx of hernia repair (12/2017) Ventral hernia with mesh History of tooth extraction History of cardiac cath (02/18/11) @ [facility]--No stents Family History Other No family history of adverse response to anesthesia Social History (System 08/14/24 @ 15:45 by Dinora Finley) Smoking Status: Never smoker Second Hand Exposure: No; Do You Dip or Chew Tobacco: No; Hx Alcohol Use: No Hx Substance Use: No Preferred Language: [place]ian Communication Ability: Effective Communication Ability Comment: alert and oriented x3 - of sound mind to sign consent Visual Impairment: No Limitations Materials Branch Chief Required: No Beliefs That Will Affect Care: None Current Living Situation: Personal Care Facility Current Living Situation Comment: [facility] Assistive Devices: Other Review of Systems Review of Systems: Pertinent positive and negative review of systems as mentioned in the HPI Physical Exam Physical Exam: Constitutional: Alert, ill in appearance, toxic in appearance HEENT: Mucous membranes dry sclera clear Neck: Soft, no adenopathy Lungs: Decreased breath sounds, no wheezes CV: S1-S2, regular, tachycardic Abdomen: Soft, mild suprapubic tenderness nondistended Extremities: No significant edema Musculoskeletal: No significant joint tenderness Neuro: No focal deficits, global weakness Psych: Cooperative, normal mood Results & Data Results & Data Vital Signs (Past 12 Hours) Vital Signs Temp Pulse Resp BP Pulse Ox O2 Del Method 08/14/24 18:45 106/65 08/14/24 18:45 106/65 08/14/24 18:36 99 H 21 98 08/14/24 18:30 85/55 L 08/14/24 18:30 85/55 L 08/14/24 18:30 85/55 L 08/14/24 18:30 85/55 L 08/14/24 18:30 85/55 L 08/14/24 18:30 96 H 17 97 08/14/24 18:27 99 H 18 97 08/14/24 18:09 105 H 99 08/14/24 18:06 95/51 L 08/14/24 18:00 102 H 18 98 08/14/24 17:51 103 H 18 99 08/14/24 17:47 99/55 L 08/14/24 17:39 123 H 21 100 08/14/24 17:30 120 H 96 08/14/24 17:21 117 H 22 98 08/14/24 17:18 118 H 16 97 08/14/24 17:15 114/75 08/14/24 17:09 115 H 20 95 08/14/24 17:03 105 H 97 08/14/24 17:00 98/66 L 08/14/24 16:57 107 H 20 96 08/14/24 16:51 115 H 97 08/14/24 16:45 102/70 08/14/24 16:45 102/70 08/14/24 16:39 111 H 19 97 08/14/24 16:33 116 H 22 97 08/14/24 16:30 92/69 L 08/14/24 16:30 92/69 L 08/14/24 16:09 120 H 96 08/14/24 16:00 108 H 22 92 08/14/24 16:00 130/82 08/14/24 16:00 130/82 08/14/24 16:00 130/82 08/14/24 15:54 128 H 20 94 08/14/24 15:48 82/60 L 08/14/24 15:23 123 H 08/14/24 15:19 37.5 C 124 H 22 138/54 L 85 L Room Air Diagnostic Findings Reviewed imaging, laboratory and diagnostic studies. Pertinent findings as below. Reviewed outpatient urine culture, E. coli sensitive to Zosyn, cefepime, ceftriaxone Blood cultures pending WBCs 16.1 Hemoglobin 12.7 Sodium 134 Chloride 97 Bicarb 25 BUN 41 Creatinine 2.29 Glucose 103 Lactic 1.6 Troponin 59.5 Procalcitonin 8.57 Urinalysis with 2+ leukocyte esterase Respiratory viral panel negative Personally reviewed chest x-ray, some mild congestion no definitive infiltrate Head CT unremarkable CT of the abdomen and pelvis showing left ureteral stent in good position no obstructing ureteral calculi, bilateral hydronephrosis mild (9) Atrial fibrillation Atrial fibrillation type: unspecified Qualified Code(s): I48.91 - Unspecified atrial fibrillation
[2024-08-14] MEDS ORDERED: STAT IV Infusion **Titration per Protocol STA (20:27)
[2024-08-14] MEDS: NOREPINEPHRINE/D5W 4 MG/250 ML PLCT IV SCH (20:45)
[2024-08-14] MEDS: SODIUM CHLORIDE 0.9% 1,000 ML IV ONE (20:58)
[2024-08-14] MEDS ORDERED: GLUCOSE 40% GEL 15 GM TUBE PO PRN (21:54)
[2024-08-14] MEDS ORDERED: GLUCOSE 10 TAB/TUBE PO PRN (21:54)
[2024-08-14] MEDS ORDERED: ONDANSETRON INJ 2 MG/ML 2 ML VIAL IV PRN (21:54)
[2024-08-14] MEDS ORDERED: DEXTROSE 50% 50 ML SYRINGE IV PRN (21:54)
[2024-08-14] MEDS ORDERED: CARBOHYDRATES FOR HYPOGLYCEMIA PO PRN (21:54)
[2024-08-14] MEDS ORDERED: GLUCAGON FOR INJ 1 MG VIAL SQ PRN (21:54)
[2024-08-14] MEDS: INSULIN ASPART PER UNIT CHARGE SC SCH (22:15)
--- NOTE | 2024-08-14 23:22 | Critical Care Consultation ---
Date of Consultation August 14, 2024 Assessment & Plan (1) Septic shock: Reason Critically Ill: 78-year-old female PMH of bilateral hydronephrosis and ureteral stents, GERD, HTN, HLD, A-fib (on Eliquis), presents to the ICU with septic shock likely from urinary source with chronic Cobb which was exchanged in the emergency department. She is now requiring vasopressor support with Levophed drip Neuro - Encephalopathyappears to have resolved as patient is currently alert and oriented. Suspect this may have been related to hypotension with underlying metabolic issues/UTI. Monitor Cardiac - Shocklikely septic in etiology as patient has UTI with purulent drainage from a chronic Cobb -See ID for further treatment - Previous TTE from 07/05 with normal EF and without significant valvular disease. Will repeat study for now -Will obtain random cortisol to see if there is benefit of stress dose steroids although patient not on chronic steroids -Hold antihypertensives -Continue with IV fluid resuscitation - Currently maintaining blood pressure with Levophed drip. Continues to be at low dose. Consider central line insertion if pressor requirements increase but okay to run peripherally for now. Titrate drip to maintain MAP greater than 65 A-fibappears to be regular rhythm on monitor with heart rate in the 90s. - Hold metoprolol due to hypotension. -Continue Eliquis. -Continuous monitor on telemetry Respiratory - Hypoxiapatient with mild hypoxia requiring nasal cannula. Likely due to pulmonary vascular congestion following aggressive fluid resuscitation in the setting of sepsis. - Chest x-ray consistent with mild pulmonary congestion - Hold on diuresis for now as patient is currently hypotensive with RENALDO - Continue oxygen support with supplemental oxygen/nasal cannula. Wean as tolerated -Continuous monitoring pulse ox GI - N.p.o. for now GERDPPI RENAL/LYTES - AKIlikely prerenal in the setting of hypotension. Baseline creatinine of 0.7, currently at 2.29 - Patient does have chronic hydronephrosis bilaterally although she has had stents placed and CT abdomen and pelvis without significant/mild hydronephrosis and stents appear to be patent - Cobb exchanged and patient with adequate urine output although it is purulent with ongoing UTI - Avoid nephrotoxins and renally adjust medications -Maintain MAP greater than 65 -Continue with IV fluid resuscitation -Monitor routine BMPs and replete electrolytes as indicated. Trend creatin ine and BUN - Foleystrict I's and O's ENDO - No history of diabetes or thyroid disease. ICU hyperglycemic protocol HEME - H&H stable, monitor routine CBC ID - Sepsissuspect most likely source is UTI/cystitis given urinalysis and purulent drainage from Cobb catheter. Patient has chronic indwelling Cobb and had Urine culture 1 week ago which grew multidrug-resistant E. coli, For which she states that she did not receive antibiotic treatment - Elevated lactate now improved, procalcitonin of 8, leukocytosis of 16,000 - Repeat urine culture and blood cultures currently pending - CT abdomen and pelvis without evidence of other intra-abdominal sources. Chest x-ray more consistent with pulmonary vascular congestion, no identifiable pneumonia/consolidation -BioFire negative - Continue cefepime for now LINES/IV ACCESS - Peripheral IVs. Consider central line insertion if pressor requirement increases DVT PROPHYLAXIS - Michael Evangelista I have personally spent 42 minutes of critical care time in the direct management of this patient. This is a life/limb threatening event. This includes time spent evaluating patient, direct bedside care, chart review, placing orders, interpretation of diagnostic studies, discussion with consultants, patient, and family members, as well as other required patient management activities. This time is exclusive of all separately billable procedures, and teaching time and separate from and in addition to any other critical care service time. Thank you for allowing us to participate in the care of this patient. Please refer to my attending physician's documentation for any further recommendations. (2) Acute UTI: (3) Atrial fibrillation: (4) Hypertension: (5) Hyperlipidemia: (6) Asthma: History of Present Illness Attending Physician: Dc Aguirre DO History of Present Illness Patient is a 78-year-old female with past medical history significant for atrial fibrillation, HTN, HLD, GERD, and bilateral hydronephrosis with ureteral stents, and chronic Cobb with recurrent UTIs who presented to the emergency department earlier this evening with weakness, altered mental status and lethargy. On 08/04 patient had urine culture that grew multidrug-resistant E. coli and she reports that she was not placed on antibiotics yet. Jarad pus was noted to be draining from Cobb after catheter exchange. She was noted to be hypotensive, and received 3 L crystalloid bolus but remained hypotensive and was started on vasopressor support for Levophed. Patient is now transferred to the ICU for further management at this time. On arrival to the ICU the patient is alert, no acute distress, and maintaining oxygen saturation on nasal cannula. She did undergo CT abdomen pelvis which did show mild bilateral hydronephrosis with appropriate placement of ureteral stent. Chest x-ray with mild pulmonary congestion. She currently reports of neck pain/stiffness which she states is an ongoing issue/chronic. Otherwise patient denies headache, dizziness, syncopal episodes, recent illness or fevers, sore t hroat or congestion, cough, shortness of breath, chest pain or palpitations, abdominal pain, nausea vomiting or diarrhea, swelling in hands or feet. Patient does report skin breakdown on her buttocks. She was unaware of foul-smelling urine or purulent drainage from the Cobb. Allergies Allergy/AdvReac Type Severity Reaction Status Date / Time doxycycline Allergy Intermediate Swelling Verified 08/14/24 15:45 tetracycline Allergy Mild Eye Verified 08/14/24 15:45 swelling NARINDER Inhibitors AdvReac Intermediate Cough Verified 08/14/24 15:45 codeine AdvReac Mild Morrow Verified 08/14/24 15:45 "crazy" Sulfa (Sulfonamide AdvReac Mild Gastrointestinal Verified 08/14/24 15:45 Antibiotics) Upset Home Medications Medication Instructions Recorded Confirmed Type acetaminophen 500 mg tablet 500 mg PO Q6H PRN Fever Or Pain 06/28/23 08/14/24 History (Tylenol Extra Strength) apixaban 5 mg tablet (Eliquis) 5 mg PO [facility] 06/28/23 08/14/24 History atorvastatin 80 mg tablet 80 mg PO HS 06/28/23 08/14/24 History lansoprazole 30 mg capsule,delayed 30 mg PO BID 06/28/23 08/14/24 History release metoprolol succinate 50 mg 50 mg PO [facility] 06/28/23 08/14/24 History tablet,extended release 24 hr spironolactone 25 mg tablet 25 mg PO QAM 06/28/23 08/14/24 History docusate sodium 100 mg capsule 200 mg PO HS 09/14/23 08/14/24 History (Colace) mirtazapine 15 mg tablet (Remeron) 15 mg PO HS 09/14/23 08/14/24 History sucralfate 1 gram tablet (Carafate) 1 g PO ACHS 09/14/23 08/14/24 History ferrous sulfate 325 mg (65 mg 325 mg PO Q OTHER DAY 04/03/24 08/14/24 History iron) tablet,delayed release montelukast 10 mg tablet 10 mg PO QAM 04/03/24 08/14/24 History tamsulosin 0.4 mg capsule 0.4 mg PO HS #30 caps 06/14/24 08/14/24 Rx tramadol 50 mg tablet 50 mg PO Q12H PRN pain #10 tabs 06/14/24 08/14/24 Rx methenamine hippurate 1 gram tablet 1 g PO BID #60 tabs 06/15/24 08/14/24 Rx ascorbic acid (vitamin C) 500 mg 500 mg PO BID 07/10/24 08/14/24 History tablet (Vitamin C) loperamide 2 mg tablet 2 mg PO Q4H PRN Diarrhea 07/10/24 08/14/24 History whezzodwalfrf-dmjnxzyqljakh-eekashuxayj 2 tab PO Q12 PRN Congestion 07/10/24 08/14/24 History 5 mg-325 mg-200 mg tablet (Mucinex Sinus-Max Severe Congestion Relief) polyethylene glycol 3350 17 17 g PO DAILY PRN Constipation 07/10/24 08/14/24 History gram/dose oral powder oxybutynin chloride 5 mg tablet 5 mg PO Q8H PRN bladder spasms #30 07/17/24 08/14/24 Rx tabs Saccharomyces boulardii 250 mg 250 mg PO QAM 08/14/24 08/14/24 History capsule (Florastor) cranberry extract 500 mg capsule 500 mg PO QAM 08/14/24 08/14/24 History (Cranberry Concentrate) diclofenac sodium 1 % topical gel 2 g EXT QID Pain 08/14/24 08/14/24 History (Voltaren Arthritis Pain) zinc oxide 20 % topical ointment 1 applic topical BID 08/14/24 08/14/24 History Patient History Medical History (Updated 08/15/24 @ 02:10 by MARTY Pichardo) Obesity Pulmonary hypertension moderate per 06/2023 ECHO (PASP 47mmHg) Skin breakdown sacral skin breakdown per 06/2024 hospitalization; pt to follow with wound care at [facility] 2 or more hospital admissions in past 6 months admitted [facility] 06/08-06/15/24: dx: complicated UTI, chronic indwelling cobb catheter, calculus of L kidney, b/l hydronephrosis. admitted [facility] 06/26- 06/30/24: dx: infection associated with indwelling uteretal stent, hematuria, acute L flank pain: pt D/C on Cefdinir (pt also noted to have sacral skin area breakdown during admission and pt to f/u with wound care at [facility]) History of anemia History of posterior vitreous detachment B/L History of asthma "Well controlled" Chronic indwelling Cobb catheter Hydronephrosis of left kidney Diabetes mellitus, type II Diet controlled Overactive bladder HTN (hypertension) GERD (gastroesophageal reflux disease) Hyperlipidemia Hx of vertigo Hx of cancer of uterus 2013- radiation Hx pulmonary embolism Remote hx years ago In setting of prolonged sitting/immobility during a previous hospitalization per records Urinary retention Cobb cath in place Atrial fibrillation Taking Eliquis History of home oxygen therapy not currently [facility] resident Resides at [facility] Nontoxic thyroid nodule Hx: UTI (urinary tract infection) Recurrent Hx of sepsis Lipodermatosclerosis Chronic bronchitis 'Bronchial asthma' Acquired lymphedema "Stomach" Gets therapy/massage to manage > was complication after radiation treatment per previous PAT RN notation IBS (irritable bowel syndrome) Surgical History (System 08/14/24 @ 15:45 by Dinora Finley) History of anesthesia reaction Awareness with D&C and colonoscopy History of open reduction and internal fixation (ORIF) procedure (06/2023) left femur fx Hx of cystoscopy Multiple; most recent: 04/13/24: MAC without issue History of cataract surgery (2020) R/L History of dilatation and curettage History of esophagogastroduodenoscopy (EGD) History of colonoscopy History of bilateral tubal ligation History of cholecystectomy Hx of hernia repair (12/2017) Ventral hernia with mesh History of tooth extraction History of cardiac cath (02/18/11) @ [facility]--No stents Family History Other No family history of adverse response to anesthesia Social History (System 08/14/24 @ 15:45 by Dinora Finley) Smoking Status: Never smoker Second Hand Exposure: No; Do You Dip or Chew Tobacco: No; Tobacco Cessation Education Requested by Patient: No Hx Alcohol Use: No Hx Substance Use: No Preferred Language: Martiniquais Communication Ability: Effective Communication Ability Comment: alert and oriented x3 - of sound mind to sign consent Visual Impairment: No Limitations Dental [employer] Processor Required: Voice Beliefs That Will Affect Care: None Current Living Situation: Half-Way Current Living Situation Comment: [place] Other Information That Helps Us Care for You: No Feels Safe at Home: Yes Safety Concerns: Feels Safe At This Time Assistive Devices: Other Review of Systems Review of Systems: All systems reviewed & are unremarkable except as noted in HPI & below Physical Exam Constitutional: cooperative and comfortable Eyes: PERRL, conjunctivae normal, anicteric sclerae ENMT: external ear and nose normal, oropharynx normal Neck: trachea midline, no thyromegaly Respiratory: normal respiratory effort, lungs clear to auscultation Cardiovascular: RRR, no murmur, no edema Heart Sounds: normal S1 and normal S2 Gastrointestinal (Abdomen): normal bowel sounds, soft, nontender, no hepatosplenomegaly Musculoskeletal: no cyanosis or clubbing, extremities motor strength 5/5 Skin: no rashes, warm and dry Neurologic: PERRL, EOMI, accommodation nl, no face palsy, no dysarthria Psychiatric: A+Ox3, euthymic affect Genitourinary: Cobb inserted, purulent drainage from Cobb tubing with sediment and dark yellow urine Results & Data Results & Data Vital Signs (Past 12 Hours) Vital Signs Temp Pulse Pulse Resp BP BP Pulse Ox 08/14/24 21:40 90 13 114/74 100 08/14/24 21:05 89 12 107/55 L 100 08/14/24 20:08 96 H 83/53 L 98 08/14/24 19:01 99 H 27 H 97/57 L 98 08/14/24 18:45 106/65 08/14/24 18:45 106/65 08/14/24 18:36 99 H 21 98 08/14/24 18:30 85/55 L 08/14/24 18:30 85/55 L 08/14/24 18:30 85/55 L 08/14/24 18:30 85/55 L 08/14/24 18:30 85/55 L 08/14/24 18:30 96 H 17 97 08/14/24 18:27 99 H 18 97 08/14/24 18:09 105 H 99 08/14/24 18:06 95/51 L 08/14/24 18:00 102 H 18 98 08/14/24 17:51 103 H 18 99 08/14/24 17:47 99/55 L 08/14/24 17:39 123 H 21 100 08/14/24 17:30 120 H 96 08/14/24 17:21 117 H 22 98 08/14/24 17:18 118 H 16 97 08/14/24 17:15 114/75 08/14/24 17:09 115 H 20 95 08/14/24 17:03 105 H 97 08/14/24 17:00 98/66 L 08/14/24 16:57 107 H 20 96 08/14/24 16:51 115 H 97 08/14/24 16:45 102/70 08/14/24 16:45 102/70 08/14/24 16:39 111 H 19 97 08/14/24 16:33 116 H 22 97 08/14/24 16:30 92/69 L 08/14/24 16:30 92/69 L 08/14/24 16:09 120 H 96 08/14/24 16:00 108 H 22 92 08/14/24 16:00 130/82 08/14/24 16:00 130/82 08/14/24 16:00 130/82 08/14/24 15:54 128 H 20 94 08/14/24 15:48 82/60 L 08/14/24 15:23 123 H 08/14/24 15:19 37.5 C 124 H 22 138/54 L 85 L O2 Del Method 08/14/24 21:40 Room Air 08/14/24 21:05 Nasal Cannula 08/14/24 20:08 Room Air 08/14/24 19:01 Room Air 08/14/24 18:45 08/14/24 18:45 08/14/24 18:36 08/14/24 18:30 08/14/24 18:30 08/14/24 18:30 08/14/24 18:30 08/14/24 18:30 08/14/24 18:30 08/14/24 18:27 08/14/24 18:09 08/14/24 18:06 08/14/24 18:00 08/14/24 17:51 08/14/24 17:47 08/14/24 17:39 08/14/24 17:30 08/14/24 17:21 08/14/24 17:18 08/14/24 17:15 08/14/24 17:09 08/14/24 17:03 08/14/24 17:00 08/14/24 16:57 08/14/24 16:51 08/14/24 16:45 08/14/24 16:45 08/14/24 16:39 08/14/24 16:33 08/14/24 16:30 08/14/24 16:30 08/14/24 16:09 08/14/24 16:00 08/14/24 16:00 08/14/24 16:00 08/14/24 16:00 08/14/24 15:54 08/14/24 15:48 08/14/24 15:23 08/14/24 15:19 Room Air Coding Level of Care Code 12970 CRITICAL CARE 1ST 30-74M Diagnoses Septic shock A41.9; R65.21 Acute UTI N39.0 Atrial fibrillation I48.91 Atrial fibrillation type: unspecified Hypertension I10 Hyperlipidemia E78.5 Asthma J45.909 (3) Atrial fibrillation Atrial fibrillation type: unspecified Qualified Code(s): I48.91 - Unspecified atrial fibrillation
[2024-08-15] MEDS: APIXABAN 5 MG TABLET PO SCH (00:34)
[2024-08-15] MEDS: DOCUSATE SODIUM 100 MG CAP PO SCH (00:34)
[2024-08-15] MEDS: SODIUM CHLORIDE 0.9% 1,000 ML IV SCH (00:34)
[2024-08-15] MEDS: SUCRALFATE 1 GM TAB PO SCH (00:34)
[2024-08-15] MEDS: PANTOprazole 40 MG TAB PO SCH (00:35)
[2024-08-15] MEDS: MIRTAZAPINE TAB 15 MG TAB PO SCH (00:35)
[2024-08-15] MEDS: BUTT PASTE (ZINC OXIDE 16%) 171 APPLN/57 GM JAR TOP SCH (00:36)
[2024-08-15] MEDS: CEFEPIME 2000MG 2,000 MG/20 ML SYR IV STA (00:45)
[2024-08-15] MEDS: PLASMA-LYTE A 1,000 ML IV SCH (00:57)
[2024-08-15 05:46] LABS: A calco-baum cmplx NotReported Not Detected (NotDetected); Bact fragilis Not Reported Not Detected (NotDetected); Blood Culture Id Panel See PCR Comment (NotDetected); C auris Not Reported Not Detected (NotDetected); CTX-M Resistant Gene Not Detected (NotDetected); Calbicans Not Reported Not Detected (NotDetected); Candida glabrata Not Reported Not Detected (NotDetected); Candida krusei Not Reported Not Detected (NotDetected); Cneoformans/gatti Not Reported Not Detected (NotDetected); Cparapsilosis Not Reported Not Detected (NotDetected); E cloacae compx Not Reported Not Detected (NotDetected); Efaecalis Not Reported Not Detected (NotDetected); Efaecium Not Reported Not Detected (NotDetected); Enterobacterales DETECTED (NotDetected); Enterobacterales Not Reported DETECTED (NotDetected); Escherichia coli Not Reported DETECTED (NotDetected); H influenzae Not Reported Not Detected (NotDetected); IMP Resistant Gene Not Detected (NotDetected); K aerogenes Not Reported Not Detected (NotDetected); KPC Resistant Gene Not Detected (NotDetected); Koxytoca Not Reported Not Detected (NotDetected); Kpneumoniae grp Not Reported Not Detected (NotDetected); Lmonocyt Not Reported Not Detected (NotDetected); N meningitidis Not Reported Not Detected (NotDetected); NDM Resistant Gene Not Detected (NotDetected); OXA 48 Like Resistant Gene Not Detected (NotDetected); P aeruginosa Not Reported Not Detected (NotDetected); Proteus spp Not Reported Not Detected (NotDetected); Salmonella spp Not Reported Not Detected (NotDetected); Staph lugdunensis Not Reported Not Detected (NotDetected); Staph spp. Not Reported Not Detected (NotDetected); Staphaureus Not Reported Not Detected (NotDetected); Staphepi Not Reported Not Detected (NotDetected); Stenmaltophilia Not Reported Not Detected (NotDetected); Strep agal(GrpB) Not Reported Not Detected (NotDetected); Strep pneum Not Reported Not Detected (NotDetected); Strep pyog (GrpA) Not Reported Not Detected (NotDetected); Strep spp Not Reported Not Detected (NotDetected); VIM Resistant Gene Not Detected (NotDetected); mcr-1 Colistin Resistant Gene Not Detected (NotDetected)
[2024-08-15] MEDS: METOPROLOL SUCC 50MG EXT REL TAB PO SCH (06:10)
[2024-08-15 06:17] LABS: Hematocrit (blood only) 36.3 % (37.0-47.0); Hemoglobin 11.4 g/dl (12.0-16.0); Mean Corpuscular Hemoglobin 28.7 pg (25.0-34.0); Mean Corpuscular Hgb Conc 31.4 g/dL (32.0-36.0); Mean Corpuscular Volume 91.4 fL (80.0-100.0); Mean Platelet Volume 10.8 fL (9.4-12.4); Platelet Count 196 K/uL (130-400); RDW Coefficient of Variation 14.8 % (11.5-14.5); RDW Standard Deviation 50.4 fL (36.4-46.3); Red Blood Count 3.97 M/uL (4.20-5.40); White Blood Count 17.66 K/ul (4.8-10.8)
[2024-08-15 06:29] LABS: BUN Creatinine Ratio 22.1 (10-20); Calcium 8.4 mg/dl (8.6-10.3); Creatinine Clr Calc Pharmacy 28.9 ml/min; Magnesium 1.7 mg/dl (1.7-2.4); Phosphorus 4.5 mg/dl (2.5-4.9); Potassium 3.8 mmol/L (3.5-5.1)
[2024-08-15] MEDS: traMADol HCL 50 MG TABLET PO PRN (07:24)
[2024-08-15] MEDS: MAGNESIUM SULFATE / D5W 1 GM/100 ML BAG IV SCH (07:24)
[2024-08-15] MEDS: MONTELUKAST SODIUM 10 MG TABLET PO SCH (07:26)
[2024-08-15] MEDS: SACCHAROMYCES BOULARDII 250 MG CAP PO SCH (07:26)
[2024-08-15] MEDS: CEFEPIME 1000MG 1,000 MG/10 ML SYR IV SCH (10:03)
[2024-08-15] MEDS: cefTRIAXone SODIUM 2,000 MG/50 ML BAG IV SCH (13:31)
--- NOTE | 2024-08-15 13:44 | Electrocardiogram Report ---
Test Reason : Blood Pressure : */* mmHG Vent. Rate : 119 BPM Atrial Rate : * BPM P-R Int : * ms QRS Dur : 90 ms QT Int : 290 ms P-R-T Axes : * -4 147 degrees QTcB Int : 407 ms Atrial fibrillation with rapid ventricular response Low voltage QRS Cannot rule out Inferior infarct , age undetermined Poor R wave progression, consider anterior CA vs. lead placement vs. LVH Abnormal ECG When compared with ECG of 08-Jun-2024 10:56, Questionable change in initial forces of Septal leads Confirmed by Isaac Murillo ([id number]) on 08/15/2024 1:43:52 PM Referred By: REFERRED SELF Confirmed By: Isaac Murillo
--- NOTE | 2024-08-15 15:05 | Hospitalist Progress Note ---
Date of Service August 15, 2024 Assessment & Plan (1) Severe sepsis with acute organ dysfunction due to Gram negative bacteria: (2) Acute renal failure superimposed on chronic kidney disease: (3) Demand ischemia of myocardium: (4) Complicated urinary tract infection: (5) Acute metabolic encephalopathy: (6) Infection associated with indwelling ureteral stent: (7) Chronic indwelling Osorio catheter: (8) Morbid obesity: (9) Atrial fibrillation: (10) Pulmonary hypertension: Plan 78-year-old female resident of [facility] with PMH of A-fib on Eliquis, HTN, HLD, PE/DVT, asthma, T2DM, chronic anemia, chronic lymphedema, recurrent UTIs, ureteral stents for hydronephrosis presented with complaint of weakness, altered mental status and lethargy. Apparently she had outpatient urine culture done on 08/04/2024 which has subsequently grown E. coli but patient was not on any antibiotic for this infection. At presentation, she was noted to have acute kidney injury and hypotension requiring pressor support. She was admitted in ICU. She is being managed for the following: Catheter associated UTI Indwelling left ureteral stent Sepsis with shock: At admission WBC elevated, pulse rate elevated, blood pressure did not improve with fluid resuscitation needing pressor support and ICU admission. Metabolic encephalopathy: Secondary to above. Getting better. Gram-negative bacteremia, likely secondary to UTI Patient presenting with weakness, altered mental status, lethargy. Noted to have positive urine culture 08/04/2024, not on outpatient antibiotic. CT head with no acute finding. CTAP with left ureteral stent in appropriate position, mild bilateral hydronephrosis/nonobstructing ureteral calculi, exophytic left renal cyst stable . Osorio was exchanged in the ED, loraine pus was noted draining from Osorio catheter after exchange. Urinary catheter with concentrated urine noted at bedside. Follow admitting urine and blood culture. Continue with 08/15 Rocephin, patient receiving Levophed drip in ICU. Patient being managed per ICU. Acute kidney injury: Creatinine of 2.29 at admission, baseline creatinine of 0.5. Patient received IV fluid, currently on Levophed drip to maintain blood pressure. Likely prerenal secondary to hypotension. CTAP reviewed. Creatinine improving, labs in a.m., continue to hold nephrotoxic's. Demand ischemia: Troponin minimally elevated, patient with no chest pain, EKG with no acute ST or T changes, continue telemetry monitoring. Likely secondary to acute illness. Echo with EF of 65 to 70%, left ventricular wall motion is normal, no regional wall motion abnormalities noted. Other chronic medical conditions: Continue with/resume home meds as and when able. Paroxysmal A-fib: Continue home Eliquis, metoprolol on hold due to hypotension. Heart rate in 90s. Hypertension: Hold antihypertensive for now Hyperlipidemia: resume atorvastatin when able. History of DVT: continue with Eliquis. GERD: Continue with famotidine DVT prophylaxis: Eliquis CODE STATUS: DNR/DNI PCP: Lakhwinder Dispo: Currently in ICU care. Patient's son Gerald was given a phone call, updated, answered all his question, he voiced understanding about the plan of care. Admission and Anticipated Discharge Date Admission Date: August 14, 2024 Subjective Patient was seen and examined at bedside. Patient was lying in bed, on room air, appears ill/frail/weak. Patient reports eating some, denies any bowel movement, reports occasional cough with yellow sputum. Patient receiving Levophed drip. Physical Exam Physical Exam: Constitutional: Alert, ill in appearance, toxic in appearance HEENT: Mucous membranes dry sclera clear Neck: Soft, no adenopathy Lungs: Decreased breath sounds, no wheezes CV: S1-S2, regular, tachycardic Abdomen: Soft, mild suprapubic tenderness - improved, nondistended Extremities: No significant edema Musculoskeletal: No significant joint tenderness Neuro: No focal deficits, global weakness Psych: Cooperative, normal mood UC in situ w/ concentrated urine in the bag. Results & Data Results & Data Vital Signs (Past 12 Hours) Vital Signs Temp Pulse Resp BP Pulse Ox Pulse Ox O2 Del Method 08/15/24 11:00 36.6 C 99 H 16 90 08/15/24 11:00 94/51 L 08/15/24 10:30 96/54 L 08/15/24 10:30 98 H 17 92 08/15/24 10:00 103 H 14 90 08/15/24 10:00 85/58 L 08/15/24 09:30 79/46 L 08/15/24 09:24 104 H 16 90 08/15/24 09:03 101 H 17 92 Room Air 08/15/24 09:00 93/53 L 08/15/24 08:30 99 H 18 90 08/15/24 08:30 95/54 L 08/15/24 08:06 36.8 C 97 H 21 93 08/15/24 07:58 100/72 08/15/24 07:16 83/59 L 08/15/24 07:15 102 H 22 94 08/15/24 07:01 87/36 L 08/15/24 07:00 106 H 12 92 08/15/24 05:00 91 08/15/24 04:00 104/71 08/15/24 04:00 96 H 17 91 08/15/24 03:59 80/57 L 08/15/24 03:54 100 H 20 93 08/15/24 03:48 96 H 19 94 08/15/24 03:33 102 H 17 89 L 08/15/24 03:31 110/57 L 08/15/24 03:31 110/57 L 08/15/24 03:31 110/57 L 08/15/24 03:24 97 H 22 90 08/15/24 03:15 99 H 19 91 08/15/24 03:03 95 H 16 96 08/15/24 03:00 101/64 O2 Del Method O2 Flow Rate 08/15/24 11:00 08/15/24 11:00 08/15/24 10:30 08/15/24 10:30 08/15/24 10:00 08/15/24 10:00 08/15/24 09:30 08/15/24 09:24 08/15/24 09:03 08/15/24 09:00 08/15/24 08:30 08/15/24 08:30 08/15/24 08:06 08/15/24 07:58 08/15/24 07:16 08/15/24 07:15 08/15/24 07:01 08/15/24 07:00 08/15/24 05:00 Nasal Cannula 2 08/15/24 04:00 08/15/24 04:00 08/15/24 03:59 08/15/24 03:54 08/15/24 03:48 08/15/24 03:33 08/15/24 03:31 08/15/24 03:31 08/15/24 03:31 08/15/24 03:24 08/15/24 03:15 08/15/24 03:03 08/15/24 03:00 (9) Atrial fibrillation Atrial fibrillation type: unspecified Qualified Code(s): I48.91 - Unspecified atrial fibrillation
[2024-08-16] MEDS: LACTATED RINGER'S 1,000 ML IV SCH (00:12)
--- OUTSIDE RECORDS SUMMARY | 2024-08-16 03:17 | External Medical Summary | Summary of Care ---
Author Name Unknown Organization [facility] Address [address] [place] [address] Phone [phone] Care Team Providers Care Referral Agent Name Role Phone Danielle Angeles MD Primary Care Provider [phone] Reason for Visit * Reason Onset Date Comments Nurse Documentation 08/09/2024 Encounter Details Date Type Department Care Team (Late st Contact Info) Description 08/09/2024 Telephone [facility] [address] [facility] [place] [address] Pavan Mckeon MD [address] [place] [address] Nurse Documentation Allergies Active Allergy Reactions Criticality Noted Date Comments Chas Inhibitors 11/01/2007 cough Doxycycline 02/18/1999 eyes swollen Sulfa Antibiotics 02/18/1999 wierd documented as of this encounter (statuses as of 08/09/2024) Medications Meclizine HCl 25 MG Oral Tablet (Antivert) Take 1 Tablet by mouth 3 times a day as needed for Dizziness. 30 Tablet 1 3 Active Ipratropium-Albu terol 0.5-2.5 (3) MG/3ML Inhalation Solution (Duoneb) Inhale 3 mL via nebulizer every 6 hours as needed (SOB/wheezing). 3 Active Phenazopyridine HCl 200 MG Oral Tablet (Pyridium) Take 1 Tablet by mouth 3 times a day as needed (bladder spasms). 3 Active Ondansetron HCl 4 MG Oral Tablet Take 1 Tablet by mouth every 8 hours as needed for Nausea or Vomiting. 3 Active Escitalopram Oxalate 10 MG Oral Tablet (Lexapro)Indicat ions:Current moderate episode of major depressive disorder, unspecified whether recurrent (HCC) Take 1 Tablet by mouth in the morning. 30 Tablet 4 Active Famotidine 20 MG Oral Tablet (Pepcid)Indicati ons:Gastroesopha geal reflux disease with esophagitis, unspecified whether hemorrhage Take 1 Tablet by mouth 2 times a day as needed for Heartburn. 60 Tablet 4 Active Senna 8.6 MG Oral CapsuleIndicatio ns:Slow transit constipation Take 2 Capsules by mouth every night at bedtime. 60 Capsule 4 Active Cranberry 400 MG Oral CapsuleIndicatio ns:Recurrent UTI Take 1 Capsule by mouth daily at noon. 30 Capsule 4 Active Acetaminophen 500 MG Oral Tablet (Tylenol)Indicat ions:Compression fracture of lumbar vertebra with routine healing, unspecified lumbar vertebral level, subsequent encounter,Closed displaced oblique fracture of shaft of left femur with routine healing, subsequent encounter Take 2 Tablets by mouth in the morning and 2 Tablets before bedtime. 120 Tablet 4 Active Diclofenac Sodium 1 % External Gel (Voltaren) Apply 2 g topically to affected area in the morning and 2 g at noon and 2 g in the evening and 2 g before bedtime. 4 Active Sucralfate 1 GM Oral Tablet (Carafate)Indica tions:Gastroesop hageal reflux disease with esophagitis, unspecified whether hemorrhage TAKE 1 TABLET BY MOUTH FOUR TIMES DAILY WITH MEALS AND AT BEDTIME FOR GERD 120 Tablet 10 4 Active Nystatin 872754 UNIT/GM External Cream Apply 1 Application topically to affected area in the morning and 1 Application before bedtime. To affacted area for two weeks.. 90 g 5 4 Active traMADol HCl 50 MG Oral Tablet (Ultram)Indicati ons:Compression fracture of lumbar vertebra with routine healing, unspecified lumbar vertebral level, subsequent encounter,Closed displaced oblique fracture of shaft of left femur with routine healing, subsequent encounter Take 1 Tablet by mouth every 8 hours as needed for Pain, Severe. 90 Tablet 4 Active Eliquis 5 MG Oral Tablet (Apixaban)Indica tions:Paroxysmal atrial fibrillation (HCC) TAKE ONE TABLET BY MOUTH TWICE DAILY. *A-FIB* 60 Tablet 11 4 Active Fluticasone Propionate 50 MCG/ACT Nasal Suspension (Flonase) Administer 2 Sprays into each nostril in the morning. 16 g 5 4 Active Nitrofurantoin Monohyd Macro 100 MG Oral Capsule (Macrobid)Indica tions:Bacteriuri a Take 1 Capsule by mouth in the morning and 1 Capsule before bedtime. 10 Capsule 4 Active Mirtazapine 15 MG Oral Tablet (Remeron)Indicat ions:Current moderate episode of major depressive disorder, unspecified whether recurrent (HCC) TAKE 1 TABLET BY MOUTH AT BEDTIME *MOOD DISORDER* 28 Tablet 5 4 Active Tamsulosin HCl 0.4 MG Oral Capsule (Flomax) Take 1 Capsule by mouth every night at bedtime. 4 Active Docusate Sodium 100 MG Oral Capsule (Colace)Indicati ons:Slow transit constipation Take 2 Capsules by mouth every night at bedtime. 180 Capsule 3 4 Active Lansoprazole 30 MG Oral Capsule Delayed Release (Prevacid)Indica tions:Gastroesop hageal reflux disease with esophagitis, unspecified whether hemorrhage TAKE ONE CAPSULE BY MOUTH TWICE DAILY. *GERD* 56 Capsule 5 4 Active Montelukast Sodium 10 MG Oral Tablet (Singulair) TAKE ONE TAB BY MOUTH DAILY FOR ALLERGIES 28 Tablet 5 4 Active Metoprolol Succinate ER 50 MG Oral Tablet Extended Release 24 Hour (toPROL XL)Indications:P aroxysmal atrial fibrillation (HCC),HTN, goal below 130/80 TAKE 1 TABLET BY MOUTH TWICE DAILY *HYPERTENSION* 56 Tablet 5 4 Active Spironolactone 25 MG Oral Tablet (Aldactone)Indic ations:HTN, goal below 130/80 Take 1 Tablet by mouth in the morning. 28 Tablet 5 4 Active Methenamine Hippurate 1 GM Oral Tablet (Hiprex)Indicati ons:Recurrent UTI TAKE 1 TABLET BY MOUTH TWICE DAILY FOR BLADDER 56 Tablet 10 4 Active Atorvastatin Calcium 80 MG Oral Tablet (Lipitor)Indicat ions:Dyslipidemi a, goal LDL below 100 TAKE 1 TABLET BY MOUTH DAILY AT BEDTIME (CHOLESTEROL) 28 Tablet 5 4 Active Ferrous Sulfate 325 (65 Fe) MG Oral Tablet (Feosol) Take 1 Tablet by mouth every other day. 45 Tablet 3 Active Zinc Oxide 20 % External Ointment Apply 1 g topically to affected area in the morning and 1 g in the evening. To affected area.. 60 g 3 4 Active Optifoam 4"X4" Pad Apply topically to affected area 2 times a day. 60 Each 3 4 Active documented as of this encounter (statuses as of 08/09/2024) Active Problems Problem Noted Date Diagnosed Date [...] abdominal 10/25/2019 Extrinsic asthma without complication 12/14/2017 Overview (12/14/2017): Triggered by smells per pt History of uterine cancer 07/20/2017 HTN, goal below 130/80 11/20/2014 Dyslipidemia 05/22/2013 History of DVT (deep vein thrombosis) 03/17/2011 Overview (12/14/2017): 02/2011 - while admitted for PNA History of pulmonary embolism 03/17/2011 Overview (12/14/2017): 02/2011 - while admitted for PNA GERD with esophagitis 03/21/2008 Venous insufficiency 05/19/2001 documented as of this encounter (statuses as of 08/09/2024) Resolved Problems Problem Noted Date Diagnosed Date Resolved Date Morbid obesity with body mas s index (BMI) of 60.0 to 69.9 in adult 02/01/2019 11/23/2023 Hypoxia 12/14/2017 12/27/2017 Overview (12/14/2017): On oxygen Body mass index (BMI) of 60. 0 to 69.9 in adult 06/14/2017 12/27/2017 Overview: Per Obesity protocol #1 - Per Obesity Taxonomy ICD-10 update of inactive term Nonallergic rhinitis 04/25/2015 020 Cough 04/25/2015 02/09/2017 Uterus cancer 05/11/2014 07/20/2017 Advanced directives, counseling/discussion 04/30/2014 12/27/2017 Overview (04/30/2014): Yes, copy scanned at patient level in the electronic medical record. Patient aware they must notify their healthcare provider of changes. 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 11/30/2017 Overview (11/04/2011): benign Type 2 diabetes mellitus wit h hemoglobin A1c goal of less than 7.0% 04/30/2011 10/20/2013 Overview (01/07/2016): ICD-10 update of inactive term adjunct faculty for medical terminology current use of ant icoagulant therapy 03/17/2011 07/20/2017 Overview (06/14/2017): ICD-10 update of inactive term Other pulmonary embolism and infarction 03/13/2011 03/17/2011 Hypoxemia 02/25/2011 07/20/2017 Overview (08/08/2012): 08/03/12 RA -- low 68%, mean 89.7%, [...] weight or BMI > 40) 12/10/2009 07/08/2010 Overview (12/02/2015): Per Obesity Taxonomy ICD-10 update of inactive term Obesity, morbid (more than 1 00 lbs over ideal weight or BMI > 40) 12/10/2009 06/17/2017 Overview (12/02/2015): Per Obesity Taxonomy ICD-10 update of inactive term Asthma with severity to be determined 03/21/2008 03/22/2015 Overview (12/23/2015): ICD-10 update of inactive term CHAS inhibitor intolerance 11/01/2007 Morbid obesity, BMI not known 07/20/2006 12/10/2009 Overview (12/10/2009): Per Obesity Taxonomy Cough 01/27/2006 05/22/2013 Dyslipidemia, goal to be determined 04/08/2004 07/08/2010 KNEE PAIN, RIGHT 05/25/2003 05/22/2013 Spasm of muscle 05/25/2003 05/22/2013 PATELLO-FEMORAL PAIN SYNDROME 05/25/2003 07/20/2017 lipodermatosclerosis 06/08/2002 03/20/2 018 Dyslipidemia, goal to be determined 10/04/2000 07/08/2010 Edema 10/04/2000 05/22/2013 Irritable bowel syndrome DIVERTICULOSIS OF COLON 11/2017 OBESITY, UNSPECIFIED 010 Overview (12/10/2009): Per Obesity Taxonomy documented as of this encounter (statuses as of 08/09/2024) Immunizations Name Administration Dates Next Due Pneumococcal [...] 01/13/2024 Does the household have a re lar source of income? 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 Answer Date of Assessment Author No 07/24/2014 3:49 PM Janell Heller RN * Are you blind or do you have serious difficulty seeing, even when wearing glasses? Answer Date of Assessment Author No 07/24/2014 3:49 PM Janell Helelr RN * Do you have serious difficulty walking or climbing stairs? (5 years old or older) Answer Date of Assessment Author No 07/24/2014 3:49 PM Janell Heller RN * Do you have difficulty dressing or bathing? (5 years old or older) Answer Date of Assessment Author No 07/24/2014 3:49 PM Janell Heller RN * Because of a physical, mental, or emotional condition, do you have difficulty doing errands alone such as visiting a doctors office or shopping? (15 years old or older) Answer Date of Assessment Author No 07/24/2014 3:49 PM Janell Heller RN documented as of this encounter Mental Status * Because of a physical, mental, or emotional condition, do you have serious difficulty concentrating, remembering, or making decisions? (5 years old or older) Answer Entry Date Author No 07/24/2014 3:49 PM Janell Heller RN documented in this encounter Miscellaneous Notes * Telephone Encounter - Mirian Diana MED ASSIST - 08/09/2024 9:39 AM EST Received Fax for BFPROVIDERS: Dr. Pavan Mckeon Prescription refill received from Felipe camacho at [facility] and FAXED documented in this encounter Plan of Treatment Upcoming Encounters Date Type Department Care Team (Late st Contact Info) Description 09/28/2024 2:00 PM EST [facility] [address] [phone] Pavan Mckeon MD [address] [address] Health Maintenance Due Date Last Done Comments DXA Scan 1945 Zoster Vaccines (2 of 3) 08/24/2012 06/29/2012 Depression Monitoring 02/19/2021 02/20/2020 DTap/Tdap Vaccines (2 - Td or Tdap) 03/26/2021 03/26/2011, 04/02/2000 Adult Wellness Visit 05/25/2023 05/25/2022 COVID-19 Vaccine ( season) 2024 09/01/2021, 03/05/2021, 02/11/2021, Additional history exists HbA1c 11/22/2024 11/23/2023, 08/0 11/2022, 05/21/2022, Additional history exists GFR 06/30/2025 06/30/2024, 11/11, 09/29/2023, Additional history exists Albumin/Creatinine Ratio 04/15/2026 023, 08/25/2019, 02/01/2019, Additional history exists Pneumococcal Vaccine: 65+ Years Completed 08/20/2015, 11/27/2011, 08/08/2002, Additional history exists Diabetic Eye Exam Discontinued 07/29/2020, , 06/27/2018, Additional history exists Diabetic Foot Exam Discontinued 11/23/2023, 0 02/26/2020, 02/01/2019, Additional history exists Influenza Vaccine (FLU shot) Completed 06/27/2024, 10/16/2022, 06/01/2020, Additional history exists HPV (Gardasil) Vaccine Aged [...] and were consensually agreed upon. Care Teams Referral Agent Relationship Specialty Start Date End Date Danielle Angeles MD [address] [facility] [place] [address] PCP - General Internal Medicine 03/26/24 documented as of this encounter
--- OUTSIDE RECORDS SUMMARY | 2024-08-16 03:17 | External Medical Summary | Summary of Care ---
Author Name Unknown Organization [facility] Address [address] [place] [address] Phone [phone] Care Team Providers Care Faculty Dean Name Role Phone Danielle Angeles MD Primary Care Provider [phone] Reason for Visit * Reason Onset Date Comments Advice 08/03/2024 [facility] Encounter Details Date Type Department Care Team (Late st Contact Info) Description 08/03/2024 Telephone [facility] [address] [place] [address] Danielle Angeles MD [address] [place] [address] Advice ([facility]) Allergies Active Allergy Reactions Criticality Noted Date Comments Chas Inhibitors 11/01/2007 cough Doxycycline 02/18/1999 eyes swollen Sulfa Antibiotics 02/18/1999 wierd documented as of this encounter (statuses as of 08/07/2024) Medications Meclizine HCl 25 MG Oral Tablet (Antivert) Take 1 Tablet by mouth 3 times a day as needed for Dizziness. 30 Tablet 1 01/21/20 23 Active Ipratropium-Albu terol 0.5-2.5 (3) MG/3ML Inhalation Solution (Duoneb) Inhale 3 mL via nebulizer every 6 hours as needed (SOB/wheezing). 07/08/20 23 Active Phenazopyridine HCl 200 MG Oral Tablet (Pyridium) Take 1 Tablet by mouth 3 times a day as needed (bladder spasms). 07/08/20 23 Active Ondansetron HCl 4 MG Oral Tablet Take 1 Tablet by mouth every 8 hours as needed for Nausea or Vomiting. 09/02/20 23 Active Escitalopram Oxalate 10 MG Oral Tablet (Lexapro)Indicat ions:Current moderate episode of major depressive disorder, unspecified whether recurrent (HCC) Take 1 Tablet by mouth in the morning. 30 Tablet 10/12/19 24 Active Famotidine 20 MG Oral Tablet (Pepcid)Indicati ons:Gastroesopha geal reflux disease with esophagitis, unspecified whether hemorrhage Take 1 Tablet by mouth 2 times a day as needed for Heartburn. 60 Tablet 10/12/19 24 Active Senna 8.6 MG Oral CapsuleIndicatio ns:Slow transit constipation Take 2 Capsules by mouth every night at bedtime. 60 Capsule 10/12/19 24 Active Cranberry 400 MG Oral CapsuleIndicatio ns:Recurrent UTI Take 1 Capsule by mouth daily at noon. 30 Capsule 10/12/19 24 Active Acetaminophen 500 MG Oral Tablet (Tylenol)Indicat ions:Compression fracture of lumbar vertebra with routine healing, unspecified lumbar vertebral level, subsequent encounter,Closed displaced oblique fracture of shaft of left femur with routine healing, subsequent encounter Take 2 Tablets by mouth in the morning and 2 Tablets before bedtime. 120 Tablet 10/12/19 24 Active Diclofenac Sodium 1 % External Gel (Voltaren) Apply 2 g topically to affected area in the morning and 2 g at noon and 2 g in the evening and 2 g before bedtime. 11/16/19 24 Active Sucralfate 1 GM Oral Tablet (Carafate)Indica tions:Gastroesop hageal reflux disease with esophagitis, unspecified whether hemorrhage TAKE 1 TABLET BY MOUTH FOUR TIMES DAILY WITH MEALS AND AT BEDTIME FOR GERD 120 Tablet 10 12/31/19 24 Active Nystatin 035227 UNIT/GM External Cream Apply 1 Application topically to affected area in the morning and 1 Application before bedtime. To affacted area for two weeks.. 90 g 5 01/27/20 24 Active traMADol HCl 50 MG Oral Tablet (Ultram)Indicati ons:Compression fracture of lumbar vertebra with routine healing, unspecified lumbar vertebral level, subsequent encounter,Closed displaced oblique fracture of shaft of left femur with routine healing, subsequent encounter Take 1 Tablet by mouth every 8 hours as needed for Pain, Severe. 90 Tablet 01/27/20 24 Active Eliquis 5 MG Oral Tablet (Apixaban)Indica tions:Paroxysmal atrial fibrillation (HCC) TAKE ONE TABLET BY MOUTH TWICE DAILY. *A-FIB* 60 Tablet 11 02/10/20 24 Active Fluticasone Propionate 50 MCG/ACT Nasal Suspension (Flonase) Administer 2 Sprays into each nostril in the morning. 16 g 5 03/10/20 24 Active Nitrofurantoin Monohyd Macro 100 MG Oral Capsule (Macrobid)Indica tions:Bacteriuri a Take 1 Capsule by mouth in the morning and 1 Capsule before bedtime. 10 Capsule 04/13/20 24 Active Mirtazapine 15 MG Oral Tablet (Remeron)Indicat ions:Current moderate episode of major depressive disorder, unspecified whether recurrent (HCC) TAKE 1 TABLET BY MOUTH AT BEDTIME *MOOD DISORDER* 28 Tablet 5 05/27/20 24 Active Tamsulosin HCl 0.4 MG Oral Capsule (Flomax) Take 1 Capsule by mouth every night at bedtime. 06/14/20 24 Active Docusate Sodium 100 MG Oral Capsule (Colace)Indicati ons:Slow transit constipation Take 2 Capsules by mouth every night at bedtime. 180 Capsule 3 06/19/20 24 Active Lansoprazole 30 MG Oral Capsule Delayed Release (Prevacid)Indica tions:Gastroesop hageal reflux disease with esophagitis, unspecified whether hemorrhage TAKE ONE CAPSULE BY MOUTH TWICE DAILY. *GERD* 56 Capsule 5 06/30/20 24 Active Montelukast Sodium 10 MG Oral Tablet (Singulair) TAKE ONE TAB BY MOUTH DAILY FOR ALLERGIES 28 Tablet 5 06/30/20 24 Active Metoprolol Succinate ER 50 MG Oral Tablet Extended Release 24 Hour (toPROL XL)Indications:P aroxysmal atrial fibrillation (HCC),HTN, goal below 130/80 TAKE 1 TABLET BY MOUTH TWICE DAILY *HYPERTENSION* 56 Tablet 5 06/30/20 24 Active Spironolactone 25 MG Oral Tablet (Aldactone)Indic ations:HTN, goal below 130/80 Take 1 Tablet by mouth in the morning. 28 Tablet 5 07/03/20 24 Active Methenamine Hippurate 1 GM Oral Tablet (Hiprex)Indicati ons:Recurrent UTI TAKE 1 TABLET BY MOUTH TWICE DAILY FOR BLADDER 56 Tablet 10 07/24/20 24 Active Atorvastatin Calcium 80 MG Oral Tablet (Lipitor)Indicat ions:Dyslipidemi a, goal LDL below 100 TAKE 1 TABLET BY MOUTH DAILY AT BEDTIME (CHOLESTEROL) 28 Tablet 5 07/24/20 24 Active Ferrous Sulfate 325 (65 Fe) MG Oral Tablet (Feosol) Take 1 Tablet by mouth every other day. 45 Tablet 3 08/07/20 24 Active Ferrous Sulfate 325 (65 Fe) MG Oral Tablet (Feosol) Take 1 Tablet by mouth every other day. 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 file Not [...] Janell Heller RN * Do you have serious difficulty [...] documented in this encounter Miscellaneous Notes * Addendum Note - Danielle Angeles MD - 08/07/2024 11:09 AM ESTAddended by: DANIELLE ANGELES on: 08/07/2024 11:09 AM Modules accepted: Orders * Telephone Encounter - Danielle Angeles MD - 08/07/2024 11:09 AM EST Sent * Addendum Note - Rosa Maria Lennon LPN - 08/04/2024 3:15 PM ESTAddended by: ROSA MARIA LENNON on: 08/04/2024 03:15 PM Modules accepted: Orders * Telephone Encounter - Rosa Maria Lennon LPN - 08/04/2024 3:12 PM EST Called and spoke to [facility], they stated pt has been taking Ferrous Sulfate 325mg every otherday and they need an order faxed stating this. Added to med list, will fax * Telephone Encounter - Danielle Angeles MD - 08/03/2024 3:46 PM EST I dont see any standing order What does she need exactly ? She has known mild anemia but it has been very stable this year based on blood tests * Telephone Encounter - Humaira Ferrell OSA - 08/03/2024 10:25 AM EST Reason for patient's call: [facility] personal fpc calling to check on standing order for ferrous sulfate Caller was unable to be transferred to the nurse line in the allotted time. Please return call. She would like this order to be faxed to [phone] attention to Myriam Boo. documented in this encounter Plan of Treatment Upcoming Encounters Date Type Department Care Team (Late st Contact Info) Description 09/28/2024 2:00 PM EST [facility] [address] [phone] Pavan Mckeon MD [address] [address] Health Maintenance Due Date Last Done Comments [...] and were consensually agreed upon. Care Teams Faculty Dean Relationship Specialty Start Date End Date Danielle Angeles MD [address] [place] [facility] [address] PCP - General Internal Medicine 03/26/24 documented as of this encounter
--- OUTSIDE RECORDS SUMMARY | 2024-08-16 03:17 | External Medical Summary | Summary of Care ---
Author Name Unknown Organization [facility] Address [address] [place] [address] Phone [phone] Care Team Providers Care Woodworking Shop Hand Name Role Phone Danielle Angeles MD Primary Care Provider Reason for Visit * Reason Onset Date Comments Advice 08/07/2024 Encounter Details Date Type Department Care Team (Late st Contact Info) Description 08/07/2024 Telephone [facility] [address] [place] [id number] Danielle Angeles MD [address] [facility] [address] [place], [place] [id number] Advice Allergies Active Allergy Reactions Criticality Noted [...] GERD 120 Tablet 10 4 Active Nystatin 561831 UNIT/GM External Cream Apply 1 Application topically [...] BEDTIME (CHOLESTEROL) 28 Tablet 5 4 Active Zinc Oxide 20 % External Ointment [...] Overview (01/07/2016): ICD-10 update of inactive term correction current use of ant icoagulant therapy 03/17/2011 07/20/2017 Overview (06/14/2017): ICD-10 update of inactive term Other pulmonary embolism and infarction 03/13/2011 03/17/2011 Hypoxemia 02/25/2011 07/20/2017 Overview (08/08/2012): 08/03/12 RA -- low 68%, mean 89.7%, <89% 1:18 hrs, OREN 29.5 12/22/11 Noct ox RA -- low 67%, mean [...] No 01/13/2024 Does the household have a [facility] source [facility] income? 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 Was at the [facility] for cath leaking. Found that patient has a pressure ulcer on her buttocks. 2 x 1 cm area. No depth. Superficial. Applied zinc cream, and optifoam dressing. Educated on turning the patient ever 2 hours. Need official orders faxed to [facility] on [address]. She did not have their fax number. Call back Tereza with any advice or orders at [phone] Please fax new orders to [facility] * Telephone Encounter - Luz Elena Mckeon OSA - 08/07/2024 10:46 AM EST Reason for patient's call: hh calling in for pt Caller was transferred to [facility] at the nurse line. documented in this encounter Plan of Treatment Upcoming Encounters Date Type Department Care Team (Late st Contact Info) Description 09/28/2024 2:00 PM EST Office Visit [facility] [address] [address] Pavan Mckeon MD [address] [facility] [address] [address] Health Maintenance Due Date Last Done Comments DXA Scan 1945 Zoster Vaccines (2 of 3) 08/24/2012 06/29/2012 Depression Monitoring 02/19/2021 02/20/2020 DTap/Tdap Vaccines (2 - Td or Tdap) 03/26/2021 03/26/2011, 04/02/2000 Adult Wellness Visit 05/25/2023 05/25/2022 COVID-19 Vaccine ( - season) 2024 09/01/2021, 03/05/2021, 02/11/2021, Additional history [...] and were consensually agreed upon. Care Teams Woodworking Shop Hand Relationship Specialty Start Date End Date Danielle Angeles MD [address] [place] [address] PCP - General Internal Medicine 03/26/24 documented as of this encounter
--- OUTSIDE RECORDS SUMMARY | 2024-08-16 03:17 | External Medical Summary | Summary of Care ---
Author Name Unknown Organization [facility] Address [address] [place] [address] Phone [phone] Care Team Providers Care Warp Tester Name Role Phone Danielle Angeles MD Primary Care Provider [phone] Reason for Visit * Reason Onset Date Comments Advice 08/03/2024 [facility] Encounter Details Date Type Department Care Team (Late st Contact Info) Description 08/03/2024 Telephone [facility] [address] [place] [address] Danielle Angeles MD [address] [place] [address] Advice ([facility]) Allergies Active Allergy Reactions Criticality Noted Date Comments Chas Inhibitors 11/01/2007 cough Doxycycline 02/18/1999 eyes swollen Sulfa Antibiotics 02/18/1999 wierd documented as of this encounter (statuses as of 08/04/2024) Medications Meclizine HCl 25 MG Oral Tablet [...] GERD 120 Tablet 10 4 Active Nystatin 918990 UNIT/GM External Cream Apply 1 Application topically [...] 1 Tablet by mouth every other day. 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 Please return call. She would like this order to be faxed to [phone] attention to Myriam or Ema. documented in this encounter Plan of Treatment Upcoming Encounters Date Type Department Care Team (Late st Contact Info) Description 09/28/2024 2:00 PM EST Office Visit [facility] [address] [place] [address] Pavan Mckeon MD [address] [place] [address] Health Maintenance Due Date Last Done [...] and were consensually agreed upon. Care Teams Warp Tester Relationship Specialty Start Date End Date Danielle [facility] [address] [facility] [address] PCP - General Internal Medicine 03/26/24 documented as of this encounter
--- OUTSIDE RECORDS SUMMARY | 2024-08-16 03:17 | External Medical Summary | Summary of Care ---
Author Name Unknown Organization [facility] Address [address] [place] [address] Phone [phone] Care Team Providers Care Back Roller Name Role Phone Danielle Angeles MD Primary Care Provider [phone] Encounter Details Date Type Department Care Team (Late st Contact Info) Description 05/09/2024 Telephone [facility] [address] [place] [address] Pavan Mckeon MD [address] [place] [address] Allergies Active Allergy Reactions Criticality Noted Date Comments Chas Inhibitors 11/01/2007 cough Doxycycline 02/18/1999 eyes swollen Sulfa Antibiotics 02/18/1999 wierd documented as of this encounter (statuses as of 08/08/2024) Medications Meclizine HCl 25 MG Oral Tablet (Antivert) Take 1 Tablet by mouth 3 times a day as needed for Dizziness. 30 Tablet 1 01/21/20 Active Ipratropium-Alb uterol 0.5-2.5 (3) MG/3ML Inhalation Solution (Duoneb) Inhale 3 mL via nebulizer every 6 hours as needed (SOB/wheezing) . 07/08/20 Active Phenazopyridine HCl 200 MG Oral Tablet (Pyridium) Take 1 Tablet by mouth 3 times a day as needed (bladder spasms). 07/08/20 23 Active Ondansetron HCl 4 MG Oral Tablet Take 1 Tablet by mouth every 8 hours as needed for Nausea or Vomiting. 09/02/20 23 Active Escitalopram Oxalate 10 MG Oral Tablet (Lexapro)Indica tions:Current moderate episode of major depressive disorder, unspecified whether recurrent (HCC) Take 1 Tablet by mouth in the morning. 30 Tablet 10/12/19 24 Active Famotidine 20 MG Oral Tablet (Pepcid)Indicat ions:Gastroesop hageal reflux disease with esophagitis, unspecified whether hemorrhage Take 1 Tablet by mouth 2 times a day as needed for Heartburn. 60 Tablet 10/12/19 24 Active Senna 8.6 MG Oral CapsuleIndicati ons:Slow transit constipation Take 2 Capsules by mouth every night at bedtime. 60 Capsule 10/12/19 24 Active Cranberry 400 MG Oral CapsuleIndicati ons:Recurrent UTI Take 1 Capsule by mouth daily at noon. 30 Capsule 10/12/19 24 Active Acetaminophen 500 MG Oral Tablet (Tylenol)Indica tions:Compressi on fracture of lumbar vertebra with routine healing, unspecified lumbar vertebral level, subsequent encounter,Close d displaced oblique fracture of shaft of left [...] 24 Active Sucralfate 1 GM Oral Tablet (Carafate)Indic ations:Gastroes ophageal reflux disease with esophagitis, unspecified whether hemorrhage TAKE 1 TABLET BY MOUTH FOUR TIMES DAILY WITH MEALS AND AT BEDTIME FOR GERD 120 Tablet 10 12/31/19 24 Active Nystatin 810857 UNIT/GM External Cream Apply 1 Application topically to affected area in the morning and 1 Application before bedtime. To affacted area for two weeks.. 90 g 5 01/27/20 24 Active traMADol HCl 50 MG Oral Tablet (Ultram)Indicat ions:Compressio n fracture of lumbar vertebra with routine healing, unspecified lumbar vertebral level, subsequent encounter,Close d displaced oblique fracture of shaft of left femur with routine healing, subsequent encounter Take 1 Tablet by mouth every 8 hours as needed for Pain, Severe. 90 Tablet 01/27/20 24 Active Eliquis 5 MG Oral Tablet (Apixaban)Indic ations:Paroxysm al atrial fibrillation (HCC) TAKE ONE TABLET BY MOUTH TWICE DAILY. *A-FIB* 60 Tablet 11 02/10/20 24 Active Fluticasone Propionate 50 MCG/ACT Nasal Suspension (Flonase) Administer 2 Sprays into each nostril in the morning. 16 g 5 03/10/20 24 Active Nitrofurantoin Monohyd Macro 100 MG Oral Capsule (Macrobid)Indic ations:Bacteriu lidya Take 1 Capsule by mouth in the morning and 1 Capsule before bedtime. 10 Capsule 04/13/20 24 Active Atorvastatin Calcium 80 MG Oral Tablet (Lipitor)Indica tions:Dyslipide willie, goal LDL below 100 Take 1 Tablet by mouth in the morning. 30 Tablet 10/12/19 24 2023 Discontinued Docusate Sodium 100 MG Oral Capsule (Colace)Indicat ions:Slow transit constipation Take 2 Capsules by mouth every night at bedtime. 60 Capsule 10/12/19 24 2023 Discontinued(R efill) Metoprolol Succinate ER 50 MG Oral Tablet Extended Release 24 Hour (toPROL XL)Indications: Paroxysmal atrial fibrillation (HCC),HTN, goal below 130/80 Take 1 Tablet by mouth in the morning and 1 Tablet before bedtime. 60 Tablet 10/12/19 24 2023 Discontinued Spironolactone 50 MG Oral Tablet (Aldactone)Jessica cations:HTN, goal below 130/80 Take 1 Tablet by mouth in the morning. 30 Tablet 10/12/19 24 2023 Discontinued(R efill) Montelukast Sodium 10 MG Oral Tablet (Singulair) Take 1 Tablet by mouth in the morning. 90 Tablet 3 11/23/19 24 2023 Discontinued Mirtazapine 15 MG Oral Tablet (Remeron)Indica tions:Current moderate episode of major depressive disorder, unspecified whether recurrent (HCC) Take 1 tab by mouth at bedtime 30 Tablet 5 12/23/19 24 2023 Discontinued Lansoprazole 30 MG Oral Capsule Delayed Release (Prevacid)Indic ations:Gastroes ophageal reflux disease with esophagitis, unspecified whether hemorrhage Take 1 capsule by mouth twice per day 60 Capsule 5 01/12/20 24 2023 Discontinued Methenamine Hippurate 1 GM Oral Tablet (Hiprex)Indicat ions:Recurrent UTI TAKE 1 TABLET BY MOUTH TWICE DAILY FOR BLADDER 60 Tablet 5 02/04/20 24 2023 Discontinued documented as of this encounter (statuses as of 08/08/2024) Active Problems Problem Noted Date Diagnosed Date [...] as of this encounter (statuses as of 08/08/2024) Resolved Problems Problem Noted Date Diagnosed Date [...] Overview (01/07/2016): ICD-10 update of inactive term prison current use of ant icoagulant therapy 03/17/2011 [...] as of this encounter (statuses as of 08/08/2024) Immunizations Name Administration Dates Next Due Pneumococcal [...] Not on 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 "Record Updates: The following diagnosis(es) has(have) been removed from the record: Secondary hyperaldosteronism" Sent to [facility] documented in this encounter Plan of Treatment Upcoming Encounters Date Type Department Care Team (Late st Contact Info) Description 09/28/2024 2:00 PM EST Office Visit [facility] [address] [place] [address] Pavan Mckeon MD [address] [facility] [address] [place] [address] Health Maintenance Due Date Last Done Comments [...] and were consensually agreed upon. Care Teams Back Roller Relationship Specialty Start Date End Date Danielle Angeles MD [address] [place] [address] PCP - General Internal Medicine 03/26/24 documented as of this encounter
--- OUTSIDE RECORDS SUMMARY | 2024-08-16 03:18 | External Medical Summary | Summary of Care ---
Author Name Unknown Organization [facility] Address [address] [place] [address] Phone [phone] Care Team Providers Care Radio Communications Mechanician Name Role Phone Danielle Angeles MD Primary Care Provider [phone] Reason for Visit * Reason Onset Date Comments Advice 08/03/2024 [facility] Encounter Details Date Type Department Care Team (Late st Contact Info) Description 08/03/2024 Telephone [facility] [address] [place] [address] Danielle Angeles MD [address] [place] [address] Advice ([facility]) Allergies Active Allergy Reactions Criticality Noted Date Comments Chas Inhibitors 11/01/2007 cough Doxycycline 02/18/1999 eyes swollen Sulfa Antibiotics 02/18/1999 wierd documented as of this encounter (statuses as of 08/03/2024) Medications Meclizine HCl 25 MG Oral Tablet [...] GERD 120 Tablet 10 4 Active Nystatin 948917 UNIT/GM External Cream Apply 1 Application topically [...] BEDTIME (CHOLESTEROL) 28 Tablet 5 4 Active documented as of this encounter (statuses as of 08/03/2024) Active Problems Problem Noted Date Diagnosed Date [...] as of this encounter (statuses as of 08/03/2024) Resolved Problems Problem Noted Date Diagnosed Date [...] Overview (01/07/2016): ICD-10 update of inactive term intermediate current use of ant icoagulant therapy 03/17/2011 [...] as of this encounter (statuses as of 08/03/2024) Immunizations Name Administration Dates Next Due Pneumococcal [...] No 01/13/2024 Does the household have a [facility]? 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 Please return call. She would like this order to be faxed to [phone] attention to Myriam Boo. documented in this encounter Plan of Treatment Upcoming Encounters Date Type Department Care Team (Late st Contact Info) Description 09/28/2024 2:00 PM EST Office Visit [facility] [address] [place] [address] Pavan Mckeon MD [address] [place] [address] Health Maintenance Due Date Last [...] and were consensually agreed upon. Care Teams Radio Communications Mechanician Relationship Specialty Start Date End Date Danielle Angeles MD [address] [place] [address] PCP - General Internal Medicine 03/26/24 documented as of this encounter
--- OUTSIDE RECORDS SUMMARY | 2024-08-16 03:18 | External Medical Summary | Summary of Care ---
Author Name Unknown Organization [facility] Address [address] [place] [address] Phone [phone] Care Team Providers Care Brick Loader Name Role Phone Danielle Angeles MD Primary Care Provider [phone] Reason for Visit * Reason Onset Date Comments Advice 08/03/2024 [facility] Encounter Details Date Type Department Care Team (Late st Contact Info) Description 08/03/2024 Telephone [facility] [address] [place] [address] Danielle Angeles MD [address] [place] [address] Advice ([facility]) Allergies Active Allergy Reactions Criticality Noted [...] GERD 120 Tablet 10 4 Active Nystatin 695266 UNIT/GM External Cream Apply 1 Application topically [...] (01/07/2016): 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 Please return call. She would like this order to be faxed to [phone] attention to Myriam or Ema. documented in this encounter Plan of Treatment Upcoming Encounters Date Type Department Care Team (Late st Contact Info) Description 09/28/2024 2:00 PM EST Office Visit [facility] [address] [place] [address] Pavan Mckeon MD [address] [place] [address] Health Maintenance Due Date Last [...] and were consensually agreed upon. Care Teams Brick Loader Relationship Specialty Start Date End Date Danielle [facility] [address] [facility] [address] PCP - General Internal Medicine 03/26/24 documented as of this encounter
[2024-08-16 04:57] LABS: Basophils # (auto) 0.02 K/uL (0.00-0.20); Basophils % (auto) 0.2 %; Eosinophils # (auto) 0.08 K/uL (0.00-0.50); Eosinophils % (auto) 0.7 %; Hematocrit (blood only) 30.2 % (37.0-47.0); Hemoglobin 9.4 g/dl (12.0-16.0); Immature Granulocytes # (auto) 0.08 K/uL (0.01-0.20); Immature Granulocytes % (auto) 0.7 %; Lymphocytes # (auto) 0.66 K/uL (1.20-3.40); Lymphocytes % (auto) 5.7 %; Mean Corpuscular Hemoglobin 27.8 pg (25.0-34.0); Mean Corpuscular Hgb Conc 31.1 g/dL (32.0-36.0); Mean Corpuscular Volume 89.3 fL (80.0-100.0); Mean Platelet Volume 10.4 fL (9.4-12.4); Monocytes # (auto) 0.52 K/uL (0.11-0.59); Monocytes % (auto) 4.5 %; Neutrophils # (auto) 10.19 K/uL (1.40-6.50); Neutrophils % (auto) 88.2 %; Platelet Count 138 K/uL (130-400); RDW Coefficient of Variation 15.6 % (11.5-14.5); RDW Standard Deviation 51.2 fL (36.4-46.3); Red Blood Count 3.38 M/uL (4.20-5.40); White Blood Count 11.55 K/ul (4.8-10.8)
[2024-08-16 05:24] LABS: BUN Creatinine Ratio 31.6 (10-20); Calcium 8.1 mg/dl (8.6-10.3); Creatinine Clr Calc Pharmacy 52.3 ml/min; Magnesium 2.1 mg/dl (1.7-2.4); Potassium 2.9 mmol/L (3.5-5.1)
[2024-08-16] MEDS: POTASSIUM CHLORIDE 20 MEQ/15 ML UDC PO STA (06:21)
[2024-08-16] MEDS: POTASSIUM CHLORIDE / WTR 10 MEQ/100 ML PLCT IV SCH (06:21)
--- NOTE | 2024-08-16 10:30 | Pulmonology Progress Note ---
Date of Service August 16, 2024 Assessment & Plan (1) Septic shock: (2) Acute UTI: (3) Acute metabolic encephalopathy: (4) Atrial fibrillation: Atrial fibrillation type: unspecified Qualified Code(s): I48.91 - Unspecified atrial fibrillation Plan 78-year-old female with a history of bilateral hydronephrosis and ureteral stents with GERD and hypertension, hyperlipidemia and A-fib on Eliquis who presented to the hospital due to urosepsis. Shock state has resolved. Blood and urine cultures growing E. coli. She is on Rocephin which the E. coli is sensitive to. Leukocytosis improving. She has been off of vasopressors for greater than 24 hours. Echo with no regional wall motion abnormality. LVEF 65 to 70%. Will downgrade her to the floor. Admission and Anticipated Discharge Date Admission Date: August 14, 2024 Subjective No acute events overnight. Patient off vasopressors. No complaints. Review of Systems Review of Systems: All systems reviewed & are unremarkable except as noted in HPI & below Physical Exam Constitutional: cooperative and comfortable Eyes: PERRL, conjunctivae normal, anicteric sclerae ENMT: external ear and nose normal, oropharynx normal Neck: trachea midline, no thyromegaly Respiratory: normal respiratory effort, lungs clear to auscultation Cardiovascular: RRR, no murmur, no edema Heart Sounds: normal S1 and normal S2 Gastrointestinal (Abdomen): normal bowel sounds, soft, nontender, no hepatosplenomegaly Musculoskeletal: no cyanosis or clubbing, extremities motor strength 5/5 Skin: no rashes, warm and dry Neurologic: PERRL, EOMI, accommodation nl, no face palsy, no dysarthria Psychiatric: A+Ox3, euthymic affect Genitourinary: Osorio inserted present Results & Data Results & Data Vital Signs (Past 12 Hours) Vital Signs Pulse Resp BP Pulse Ox 08/16/24 06:16 104/34 L 08/16/24 06:03 84 12 94 08/16/24 05:54 81 12 94 08/16/24 05:03 100/47 L 08/16/24 05:03 100/47 L 08/16/24 05:03 100/47 L 08/16/24 05:03 88 13 94 08/16/24 05:00 100/49 L 08/16/24 04:45 83 12 95 08/16/24 04:00 93/40 L 08/16/24 04:00 77 13 94 08/16/24 03:03 86 13 92 08/16/24 03:00 95/46 L 08/16/24 02:51 81 15 94 08/16/24 02:00 92 H 13 94 08/16/24 02:00 91/52 L 08/16/24 02:00 91/52 L 08/16/24 01:09 97 H 18 95 08/16/24 00:00 90 19 93 08/16/24 00:00 98/49 L 08/16/24 00:00 98/49 L 08/16/24 00:00 98/49 L 08/16/24 00:00 98/49 L 08/16/24 00:00 95 H 08/15/24 23:25 102/47 L 08/15/24 23:18 96 H 16 92 08/15/24 23:12 95 H 15 92 PG Care Time/CCT Total # of Minutes Spent Total Time Spent with Patient: Total time spent is greater than 50% in coordination of care (as documented) at patient's floor/unit and/or counseling patient: Coding Level of Care Code 41314 SUB INP/OBS CARE 2/35MIN Diagnoses Septic shock A41.9; R65.21 Acute UTI N39.0 Acute metabolic encephalopathy G93.41 Atrial fibrillation I48.91 Atrial fibrillation type: unspecified
[2024-08-16 12:21] LABS: Calcium 8.8 mg/dl (8.6-10.3); Potassium 3.6 mmol/L (3.5-5.1)
[2024-08-16 12:28] LABS: BUN Creatinine Ratio 30.7 (10-20)
--- NOTE | 2024-08-16 15:19 | Hospitalist Progress Note ---
Date of Service August 16, 2024 Assessment & Plan (1) Severe sepsis with acute organ dysfunction due to Gram negative bacteria: (2) Acute renal failure superimposed on chronic kidney disease: (3) Demand ischemia of myocardium: (4) Complicated urinary tract infection: (5) Acute metabolic encephalopathy: (6) Infection associated with indwelling ureteral stent: (7) Chronic indwelling Osorio catheter: (8) Morbid obesity: (9) Atrial fibrillation: (10) Pulmonary hypertension: Plan 78-year-old female resident of [facility] with PMH of A-fib on Eliquis, HTN, HLD, PE/DVT, asthma, T2DM, chronic anemia, chronic lymphedema, recurrent UTIs, ureteral stents for hydronephrosis presented with complaint of weakness, altered mental status and lethargy. Apparently she had outpatient urine culture done on 08/04/2024 which has subsequently grown E. coli but patient was not on any antibiotic for this infection. At presentation, she was noted to have acute kidney injury and hypotension requiring pressor support. She was admitted in ICU. She is being managed for the following: Catheter associated UTI Indwelling left ureteral stent Sepsis with shock: At admission WBC elevated, pulse rate elevated, blood pressure did not improve with fluid resuscitation needing pressor support and ICU admission. Metabolic encephalopathy: Secondary to above. Getting better. Gram-negative bacteremia, likely secondary to UTI Patient presenting with weakness, altered mental status, lethargy. Noted to have positive urine culture 08/04/2024, not on outpatient antibiotic. CT head with no acute finding. CTAP with left ureteral stent in appropriate position, mild bilateral hydronephrosis/nonobstructing ureteral calculi, exophytic left renal cyst stable . Osorio was exchanged in the ED, loraine pus was noted draining from Osorio catheter after exchange. Urinary catheter with concentrated urine noted at bedside. Follow admitting urine and blood culture. growing e coli Continue with 08/15 Rocephin, now off of levophed, BP still soft but better Acute kidney injury: Creatinine of 2.29 at admission, baseline creatinine of 0.5. Patient received IV fluid, currently on Levophed drip to maintain blood pressure. Likely prerenal secondary to hypotension. CTAP reviewed. Creatinine improving, labs in a.m., continue to hold nephrotoxic's. Demand ischemia: Troponin minimally elevated, patient with no chest pain, EKG with no acute ST or T changes, continue telemetry monitoring. Likely secondary to acute illness. Echo with EF of 65 to 70%, left ventricular wall motion is normal, no regional wall motion abnormalities noted. Other chronic medical conditions: Continue with/resume home meds as and when able. Paroxysmal A-fib: Continue home Eliquis, metoprolol on hold due to hypotension. Heart rate in 90s. Hypertension: Hold antihypertensive for now Hyperlipidemia: resume atorvastatin when able. History of DVT: continue with Eliquis. GERD: Continue with famotidine DVT prophylaxis: Eliquis CODE STATUS: DNR/DNI PCP: Lakhwinder Dispo: Currently in ICU care. Plan to DG w/ improvement of BP Patient's son Gerald was given a phone call 08/15, updated, answered all his question, he voiced understanding about the plan of care. Admission and Anticipated Discharge Date Admission Date: August 14, 2024 Subjective Patient was seen and examined at bedside. Patient was lying in bed, on room air, appears ill/frail/weak. Patient reports eating better, reports occasional cough with yellow sputum. Patient w/ soft BPs, now off of levophed. Physical Exam Physical Exam: Constitutional: Alert, appears ill/frail/weak/sick. HEENT: Mucous membranes moist, sclera clear Neck: Soft, no adenopathy Lungs: Decreased breath sounds, no wheezes CV: S1-S2, regular, tachycardic Abdomen: Soft, mild suprapubic tenderness - improved, nondistended Extremities: No significant edema Musculoskeletal: No significant joint tenderness Neuro: No focal deficits, global weakness Psych: Cooperative, normal mood UC in situ w/ concentrated urine in the bag. Results & Data Results & Data Vital Signs (Past 12 Hours) Vital Signs Temp Pulse Pulse Resp BP BP Pulse Ox 08/16/24 12:16 37.1 C 94 H 18 90/75 L 97 08/16/24 11:00 98 H 14 94 08/16/24 10:00 94 H 12 96 08/16/24 10:00 111/63 08/16/24 09:00 124/46 L 08/16/24 09:00 100 H 17 96 08/16/24 08:06 96 H 15 96 08/16/24 08:00 99/64 L 08/16/24 08:00 08/16/24 07:54 99 H 15 100 08/16/24 07:00 91 H 14 94 08/16/24 07:00 109/50 L 08/16/24 06:16 104/34 L 08/16/24 06:03 84 12 94 08/16/24 05:54 81 12 94 08/16/24 05:03 100/47 L 08/16/24 05:03 100/47 L 08/16/24 05:03 100/47 L 08/16/24 05:03 88 13 94 08/16/24 05:00 100/49 L 08/16/24 04:45 83 12 95 08/16/24 04:00 93/40 L 08/16/24 04:00 77 13 94 O2 Del Method 08/16/24 12:16 Room Air 08/16/24 11:00 08/16/24 10:00 08/16/24 10:00 08/16/24 09:00 08/16/24 09:00 08/16/24 08:06 08/16/24 08:00 08/16/24 08:00 Room Air 08/16/24 07:54 08/16/24 07:00 08/16/24 07:00 08/16/24 06:16 08/16/24 06:03 08/16/24 05:54 08/16/24 05:03 08/16/24 05:03 08/16/24 05:03 08/16/24 05:03 08/16/24 05:00 08/16/24 04:45 08/16/24 04:00 08/16/24 04:00 (9) Atrial fibrillation Atrial fibrillation type: unspecified Qualified Code(s): I48.91 - Unspecified atrial fibrillation
[2024-08-16] MEDS: ACETAMINOPHEN 325 MG TAB PO PRN (18:23)
[2024-08-17 06:47] LABS: Basophils # (auto) 0.04 K/uL (0.00-0.20); Basophils % (auto) 0.3 %; Eosinophils # (auto) 0.34 K/uL (0.00-0.50); Eosinophils % (auto) 2.8 %; Hematocrit (blood only) 33.3 % (37.0-47.0); Hemoglobin 10.5 g/dl (12.0-16.0); Immature Granulocytes # (auto) 0.17 K/uL (0.01-0.20); Immature Granulocytes % (auto) 1.4 %; Lymphocytes # (auto) 1.14 K/uL (1.20-3.40); Lymphocytes % (auto) 9.5 %; Mean Corpuscular Hemoglobin 28.1 pg (25.0-34.0); Mean Corpuscular Hgb Conc 31.5 g/dL (32.0-36.0); Mean Platelet Volume 10.2 fL (9.4-12.4); Monocytes # (auto) 0.72 K/uL (0.11-0.59); Neutrophils # (auto) 9.61 K/uL (1.40-6.50); Platelet Count 142 K/uL (130-400); RDW Coefficient of Variation 15.9 % (11.5-14.5); RDW Standard Deviation 51.5 fL (36.4-46.3); Red Blood Count 3.74 M/uL (4.20-5.40); White Blood Count 12.02 K/ul (4.8-10.8)
[2024-08-17 07:03] LABS: Potassium 3.6 mmol/L (3.5-5.1)
[2024-08-17 07:09] LABS: Creatinine Clr Calc Pharmacy 71.9 ml/min; Phosphorus 2.1 mg/dl (2.5-4.9)
[2024-08-17] MEDS: POT PHOSPHATE MONOBASIC W/ SOD TAB PO SCH (11:21)
--- NOTE | 2024-08-17 13:13 | Infectious Disease Consult ---
Date of Service August 17, 2024 Telehealth Information I performed this visit using a real-time telehealth connection between my location and the patients location ([facility]). After connecting through interactive tele-video, patient was identified by name and date of and/or wristband check.Patient (or authorized healthcare client representative) was informed that this was a telemedicine visit and it was being conducted confidentially over secure lines. My office door was closed and no one else was present in the room with me.Patient (or authorized healthcare client representative) provided consent to proceed with the visit, expressed an understanding of privacy and security of the telemedicine visit, and gave permission to have a hospital client representative in the room in order to assist with the visit and to conduct portions of the visit, as needed. I informed the patient (or authorized healthcare client representative) that I reviewed their record and presented the opportunity for them to ask any questions regarding the visit today. The patient agreed to participate. Assessment & Plan (1) Severe sepsis: (2) E coli bacteremia: (3) Catheter-associated urinary tract infection: (4) Chronic indwelling Cobb catheter: (5) Ureteral stent present: (6) Morbid obesity: Plan Please continue on IV ceftriaxone and change the dose to 1 g daily to treat for catheter associated urinary tract infection and E coli bacteremia. Please treat for a total duration of 14 days. Given that the patient has RENALDO and the organism resistant to Cipro, I would recommend to continue treatment with IV ceftriaxone 1 g daily. There is no indication for any chronic suppressive antibiotic at this point. Patient will require changing of Cobb catheter under sterile conditions at least once monthly as well as maintaining good hygiene and changing diapers promptly after a bowel movement. Also, if there is no indication for cobb except that she cannot move, I would recommend removing it or even using PureWick catheter. She has to follow with urology regularly for her Lt ureteral stent. Thank you for consulting Infectious Disease. We will sign off for now. History of Present Illness History of Present Illness Ms. Brumfield is a 78 yo woman with medical Hx of morbid obesity, history of asthma, type 2 diabetes, HTN, hyperlipidemia, history of PE, atrial fibrillation, and obstructive uropathy with chronic indwelling Cobb catheter and ureteral stents for hydronephrosis who was admitted to [facility] on 08/14 because of acute encephalopathy and lethargy. On presentation, she was tachycardic at 124, with low blood pressure at 82/60; otherwise the rest of the vitals were within normal limits. Initial workup showed leukocytosis of 16 (ANC 15), elevated lactic acid at 2.9, elevated creatinine suggesting RENALDO, elevated troponin and UA showing more than 50 WBC. Shortly after admission, blood culture came back positive for E coli. CT scan of the abdomen and pelvis showed mild bilateral hydronephrosis but no obstructing renal calculi with left ureteral stent in place. ID team was consulted for further recommendations and to help guide antibiotic treatment. Allergies Allergy/AdvReac Type Severity Reaction Status Date / Time doxycycline Allergy Intermediate Swelling Verified 08/14/24 15:45 tetracycline Allergy Mild Eye Verified 08/14/24 15:45 swelling NARINDER Inhibitors AdvReac Intermediate Cough Verified 08/14/24 15:45 codeine AdvReac Mild [place] Verified 08/14/24 15:45 "crazy" Sulfa (Sulfonamide AdvReac Mild Gastrointestinal Verified 08/14/24 15:45 Antibiotics) Upset Home Medications Medication Instructions Recorded Confirmed Type acetaminophen 500 mg tablet 500 mg PO Q6H PRN Fever Or Pain 06/28/23 08/14/24 History (Tylenol Extra Strength) apixaban 5 mg tablet (Eliquis) 5 mg PO [facility] 06/28/23 08/14/24 History atorvastatin 80 mg tablet 80 mg PO 06/28/23 08/14/24 History lansoprazole 30 mg capsule,delayed 30 mg PO BID 06/28/23 08/14/24 History release metoprolol succinate 50 mg 50 mg PO [facility] 06/28/23 08/14/24 History tablet,extended release 24 hr spironolactone 25 mg tablet 25 mg PO [facility] 06/28/23 08/14/24 History docusate sodium 100 mg capsule 200 mg PO 09/14/23 08/14/24 History (Colace) mirtazapine 15 mg tablet (Remeron) 15 mg PO 09/14/23 08/14/24 History sucralfate 1 gram tablet (Carafate) 1 g PO [facility] 09/14/23 08/14/24 History ferrous sulfate 325 mg (65 mg 325 mg PO Q OTHER DAY 04/03/24 08/14/24 History iron) tablet,delayed release montelukast 10 mg tablet 10 mg PO M 04/03/24 08/14/24 History tamsulosin 0.4 mg capsule 0.4 mg PO HS #30 caps 06/14/24 08/14/24 Rx tramadol 50 mg tablet 50 mg PO Q12H PRN pain #10 tabs 06/14/24 08/14/24 Rx methenamine hippurate 1 gram tablet 1 g PO BID #60 tabs 06/15/24 08/14/24 Rx ascorbic acid (vitamin C) 500 mg 500 mg PO BID 07/10/24 08/14/24 History tablet (Vitamin C) loperamide 2 mg tablet 2 mg PO Q4H PRN Diarrhea 07/10/24 08/14/24 History elwlhtnourfvq-qdektmrokxpyg-irfatuajmaf 2 tab PO Q12 PRN Congestion 07/10/24 08/14/24 History 5 mg-325 mg-200 mg tablet (Mucinex Sinus-Max Severe Congestion Relief) polyethylene glycol 3350 17 17 g PO DAILY PRN Constipation 07/10/24 08/14/24 History gram/dose oral powder oxybutynin chloride 5 mg tablet 5 mg PO Q8H PRN bladder spasms #30 07/17/24 08/14/24 Rx tabs Saccharomyces boulardii 250 mg 250 mg PO QAM 08/14/24 08/14/24 History capsule (Florastor) cranberry extract 500 mg capsule 500 mg PO QAM 08/14/24 08/14/24 History (Cranberry Concentrate) diclofenac sodium 1 % topical gel 2 g EXT QID Pain 08/14/24 08/14/24 History (Voltaren Arthritis Pain) zinc oxide 20 % topical ointment 1 applic topical BID 08/14/24 08/14/24 History Patient History Medical History (Updated 08/17/24 @ 13:09 by Ej Ramirez MD) Obesity Pulmonary hypertension moderate per 06/2023 ECHO (PASP 47mmHg) Skin breakdown sacral skin breakdown per 06/2024 hospitalization; pt to follow with wound care at [facility] 2 or more hospital admissions in past 6 months admitted [facility] 06/08-06/15/24: dx: complicated UTI, chronic indwelling cobb catheter, calculus of L kidney, b/l hydronephrosis. admitted [facility] 06/26- 06/30/24: dx: infection associated with indwelling uteretal stent, hematuria, acute L flank pain: pt D/C on Cefdinir (pt also noted to have sacral skin area breakdown during admission and pt to f/u with wound care at [facility]) History of anemia History of posterior vitreous detachment B/L History of asthma "Well controlled" Chronic indwelling Cobb catheter Hydronephrosis of left kidney Diabetes mellitus, type II Diet controlled Overactive bladder HTN (hypertension) GERD (gastroesophageal reflux disease) Hyperlipidemia Hx of vertigo Hx of cancer of uterus 2013- radiation Hx pulmonary embolism Remote hx years ago In setting of prolonged sitting/immobility during a previous hospitalization per records Urinary retention Cobb cath in place Atrial fibrillation Taking Eliquis History of home oxygen therapy not currently [facility] resident Resides at [facility] Nontoxic thyroid nodule Hx: UTI (urinary tract infection) Recurrent Hx of sepsis Lipodermatosclerosis Chronic bronchitis 'Bronchial asthma' Acquired lymphedema "Stomach" Gets therapy/massage to manage > was complication after radiation treatment per previous PAT RN notation IBS (irritable bowel syndrome) Surgical History (System 08/14/24 @ 15:45 by Dinora Finley) History of anesthesia reaction Awareness with D&C and colonoscopy History of open reduction and internal fixation (ORIF) procedure (06/2023) left femur fx Hx of cystoscopy Multiple; most recent: 04/13/24: MAC without issue History of cataract surgery (2020) R/L History of dilatation and curettage History of esophagogastroduodenoscopy (EGD) History of colonoscopy History of bilateral tubal ligation History of cholecystectomy Hx of hernia repair (12/2017) Ventral hernia with mesh History of tooth extraction History of cardiac cath (02/18/11) @ [facility]--No stents Family History Other No family history of adverse response to anesthesia Social History (System 08/14/24 @ 15:45 by Dinora Finley) Smoking Status: Never smoker Second Hand Exposure: No; Do You Dip or Chew Tobacco: No; Tobacco Cessation Education Requested by Patient: No Hx Alcohol Use: No Hx Substance Use: No Preferred Language: Ivorian Communication Ability: Effective Communication Ability Comment: alert and oriented x3 - of sound mind to sign consent Visual Impairment: No Limitations Mason[employer]or Required: Voice Beliefs That Will Affect Care: None Current Living Situation: Group Home Current Living Situation Comment: [facility] Other Information That Helps Us Care for You: No Feels Safe at Home: Yes Safety Concerns: Feels Safe At This Time Assistive Devices: Wheelchair Review of Systems Negative except for what was mentioned in the H&P. Physical Exam Could not be performed as the visit was conducted via TeleMed. Results & Data Vital Signs (Past 12 Hours) Vital Signs Temp Pulse Pulse Resp BP Pulse Ox O2 Del Method 08/17/24 11:35 36.6 C 96 H 19 113/73 97 Room Air 08/17/24 09:19 Room Air 08/17/24 08:00 84 08/17/24 07:34 36.5 C 88 18 118/73 95 Room Air 08/17/24 04:02 36.4 C L 91 H 18 109/70 96 Room Air Laboratory Results Microbiology: 08/14: 3/4 bottles of blood culture positive for E coli 08/14: Urine culture with 3 types of organism. Diagnostic Findings CT abdomen pelvis performed on 08/14: 1. Left ureteral stent noted which appears in appropriate position. 2. Mild bilateral hydronephrosis. No obstructing ureteral calculi. 3. Exophytic left renal cysts again noted. Nonobstructing renal calculi measuring up to 1.3 cm on the right and 0.7 cm left.
--- NOTE | 2024-08-17 13:29 | Urology Consultation ---
Date of Consultation August 17, 2024 Assessment & Plan (1) Severe sepsis: (2) E coli bacteremia: (3) Catheter-associated urinary tract infection: (4) Ureteral stent present: 78-year-old female with history of nephrolithiasis, chronic indwelling Cobb, recurrent UTIs and left ureteral stent last exchanged on 07/19/24 admitted for severe sepsis, UTI/bacteremia. Urology consulted today at patient's request regarding urosepsis She is currently afebrile and hemodynamically stable Labs reviewedcreatinine 0.71, WBC trending down (12.2 today) Blood cultures with E. coli Urine culture 08/04 with E. coli Currently on Ceftriaxone Continue antibiotics per ID CTAP reviewed and left ureteral stent is in appropriate position Last stent exchange was on 07/19 No acute intervention at this time Cobb catheter was exchanged upon arrival Maintain Cobb catheter and continue with routine exchanges Plan to keep outpatient follow-up as scheduled will sign off, recall as needed History of Present Illness Attending Physician: Angelica Dyer MD History of Present Illness This is a 78-year-old female with past medical history of A-fib on Eliquis, hypertension, hyperlipidemia, history of PE/DVT, endometrial cancer status post radiation, nephrolithiasis, chronic indwelling Cobb, recurrent UTIs and left ureteral stent last exchanged on 07/19/24 who presented to the emergency department on 08/14 for evaluation of altered mental status. On arrival to ED, she was afebrile, tachycardic. Labs showed creatinine 2.29, sodium 134, WBC 16.17, and lactate 2.9. Urinalysis showed 3+ blood, 2+ LE, >20 RBC, >50 WBC and 3+ bacteria. Workup included CT abdomen pelvis which showed left ureteral stent in appropriate position. Mild bilateral hydronephrosis, no obstructing ureteral calculi. Nonobstructing renal calculi noted. Exophytic left renal cysts noted. Cobb catheter was exchanged in the ED with purulent urine drained. She was treated with IV fluids and Zosyn. She became hypotensive despite fluid resuscitation. She was started on pressors. She was admitted for septic shock. Urology consulted today for urosepsis at patient's request. Patient follows with Dr. Thorpe. She has routine left ureteral stent exchanges for management of obstruction of the left kidney seen on nuclear medicine study. Last left ureteral stent exchange was on 07/19/2024. Labs today reviewedcreatinine 0.71, WBC 12.02, hemoglobin 10.5. Blood cultures 08/14/2024 with E. coli. Urine culture 08/14 with 3 types of organisms present, all high counts. Urine culture 08/04/2024 with E. coli. Currently on ceftriaxone. Patient seen and examined at bedside this morning. She is awake and resting in bed. She reports that she is generally feeling better since arrival. She reports occasional left flank discomfort. Currently reports discomfort at her buttocks. Cobb intact. Denies nausea, vomiting, fever or chills at present. Allergies Allergy/AdvReac Type Severity Reaction Status Date / Time doxycycline Allergy Intermediate Swelling Verified 08/14/24 15:45 tetracycline Allergy Mild Eye Verified 08/14/24 15:45 swelling NARINDER Inhibitors AdvReac Intermediate Cough Verified 08/14/24 15:45 codeine AdvReac Mild [place] Verified 08/14/24 15:45 "crazy" Sulfa (Sulfonamide AdvReac Mild Gastrointestinal Verified 08/14/24 15:45 Antibiotics) Upset Home Medications Medication Instructions Recorded Confirmed Type acetaminophen 500 mg tablet 500 mg PO Q6H PRN Fever Or Pain 06/28/23 08/14/24 History (Tylenol Extra Strength) apixaban 5 mg tablet (Eliquis) 5 mg PO [facility] 06/28/23 08/14/24 History atorvastatin 80 mg tablet 80 mg PO HS 06/28/23 08/14/24 History lansoprazole 30 mg capsule,delayed 30 mg PO BID 06/28/23 08/14/24 History release metoprolol succinate 50 mg 50 mg PO [facility] 06/28/23 08/14/24 History tablet,extended release 24 hr spironolactone 25 mg tablet 25 mg PO QA 06/28/23 08/14/24 History docusate sodium 100 mg capsule 200 mg PO HS 09/14/23 08/14/24 History (Colace) mirtazapine 15 mg tablet (Remeron) 15 mg PO HS 09/14/23 08/14/24 History sucralfate 1 gram tablet (Carafate) 1 g PO [facility] 09/14/23 08/14/24 History ferrous sulfate 325 mg (65 mg 325 mg PO Q OTHER DAY 04/03/24 08/14/24 History iron) tablet,delayed release montelukast 10 mg tablet 10 mg PO QAM 04/03/24 08/14/24 History tamsulosin 0.4 mg capsule 0.4 mg PO HS #30 caps 06/14/24 08/14/24 Rx tramadol 50 mg tablet 50 mg PO Q12H PRN pain #10 tabs 06/14/24 08/14/24 Rx methenamine hippurate 1 gram tablet 1 g PO BID #60 tabs 06/15/24 08/14/24 Rx ascorbic acid (vitamin C) 500 mg 500 mg PO BID 07/10/24 08/14/24 History tablet (Vitamin C) loperamide 2 mg tablet 2 mg PO Q4H PRN Diarrhea 07/10/24 08/14/24 History ebxkwuvykrfpm-pvpmhwgzgtjnl-fxbghtdpchj 2 tab PO Q12 PRN Congestion 07/10/24 History 5 mg-325 mg-200 mg tablet (Mucinex Sinus-Max Severe Congestion Relief) polyethylene glycol 3350 17 17 g PO DAILY PRN Constipation 07/10/24 08/14/24 History gram/dose oral powder oxybutynin chloride 5 mg tablet 5 mg PO Q8H PRN bladder spasms #30 07/17/24 08/14/24 Rx tabs Saccharomyces boulardii 250 mg 250 mg PO QAM 08/14/24 08/14/24 History capsule (Florastor) cranberry extract 500 mg capsule 500 mg PO QAM 08/14/24 08/14/24 History (Cranberry Concentrate) diclofenac sodium 1 % topical gel 2 g EXT QID Pain 08/14/24 08/14/24 History (Voltaren Arthritis Pain) zinc oxide 20 % topical ointment 1 applic topical BID 08/14/24 08/14/24 History Patient History Medical History Obesity Pulmonary hypertension moderate per 06/2023 ECHO (PASP 47mmHg) Skin breakdown sacral skin breakdown per 06/2024 hospitalization; pt to follow with wound care at [facility] 2 or more hospital admissions in past 6 months admitted [facility] 06/08-06/15/24: dx: complicated UTI, chronic indwelling cobb catheter, calculus of L kidney, b/l hydronephrosis. admitted [facility] 06/26- 06/30/24: dx: infection associated with indwelling uteretal stent, hematuria, acute L flank pain: pt D/C on Cefdinir (pt also noted to have sacral skin area breakdown during admission and pt to f/u with wound care at [facility]) History of anemia History of posterior vitreous detachment B/L History of asthma "Well controlled" Chronic indwelling Cobb catheter Hydronephrosis of left kidney Diabetes mellitus, type II Diet controlled Overactive bladder HTN (hypertension) GERD (gastroesophageal reflux disease) Hyperlipidemia Hx of vertigo Hx of cancer of uterus 2013- radiation Hx pulmonary embolism Remote hx years ago In setting of prolonged sitting/immobility during a previous hospitalization per records Urinary retention Cobb cath in place Atrial fibrillation Taking Eliquis History of home oxygen therapy not currently correction resident Resides at [facility] Nontoxic thyroid nodule Hx: UTI (urinary tract infection) Recurrent Hx of sepsis Lipodermatosclerosis Chronic bronchitis 'Bronchial asthma' Acquired lymphedema "Stomach" Gets therapy/massage to manage > was complication after radiation treatment per previous PAT RN notation IBS (irritable bowel syndrome) Surgical History History of anesthesia reaction Awareness with D&C and colonoscopy History of open reduction and internal fixation (ORIF) procedure (06/2023) left femur fx Hx of cystoscopy Multiple; most recent: 04/13/24: MAC without issue History of cataract surgery (2020) R/L History of dilatation and curettage History of esophagogastroduodenoscopy (EGD) History of colonoscopy History of bilateral tubal ligation History of cholecystectomy Hx of hernia repair (12/2017) Ventral hernia with mesh History of tooth extraction History of cardiac cath (02/18/11) @ [facility]--No stents Family History Other No family history of adverse response to anesthesia Social History Smoking Status: Never smoker Second Hand Exposure: No; Do You Dip or Chew Tobacco: No; Tobacco Cessation Education Requested by Patient: No Hx Alcohol Use: No Hx Substance Use: No Preferred Language: Ecuadorean Communication Ability: Effective Communication Ability Comment: alert and oriented x3 - of sound mind to sign consent Visual Impairment: No Limitations Test Department Helper Required: Voice Beliefs That Will Affect Care: None Current Living Situation: Jail Current Living Situation Comment: [place] Other Information That Helps Us Care for You: No Feels Safe at Home: Yes Safety Concerns: Feels Safe At This Time Assistive Devices: Wheelchair Review of Systems Review of Systems: All systems reviewed & are unremarkable except as noted in HPI & below Physical Exam Constitutional: + morbidly obese Respiratory: no respiratory distress and no labored breathing Musculoskeletal: Head/Neck/Chest: normocephalic Neurologic: moves all extremities and awake Psychiatric: Orientation: alert and oriented x 3 Genitourinary: Cobb patent and draining clear yellow urine Results & Data Vital Signs (Past 12 Hours) Vital Signs Temp Pulse Pulse Resp BP Pulse Ox O2 Del Method 08/17/24 11:35 36.6 C 96 H 19 113/73 97 Room Air 08/17/24 09:19 Room Air 08/17/24 08:00 84 08/17/24 07:34 36.5 C 88 18 118/73 95 Room Air 08/17/24 04:02 36.4 C L 91 H 18 109/70 96 Room Air PG Care Time/CCT Total # of Minutes Spent Total Time Spent with Patient: Total time spent is greater than 50% in coordination of care (as documented) at patient's floor/unit and/or counseling patient: Coding Level of Care Code 73521 INT INP/OBS CARE 2/55MIN Diagnoses Severe sepsis A41.9; R65.20 E coli bacteremia R78.81; B96.20 Catheter-associated urinary tract infection T83.511A; N39.0 Ureteral stent present Z96.0
--- NOTE | 2024-08-17 14:12 | Hospitalist Progress Note ---
Date of Service August 17, 2024 Assessment & Plan (1) Severe sepsis with acute organ dysfunction due to Gram negative bacteria: (2) Acute renal failure superimposed on chronic kidney disease: (3) Demand ischemia of myocardium: (4) Complicated urinary tract infection: (5) Acute metabolic encephalopathy: (6) Infection associated with indwelling ureteral stent: (7) Chronic indwelling Osorio catheter: (8) Morbid obesity: (9) Atrial fibrillation: (10) Pulmonary hypertension: Plan 78-year-old female resident of [facility] with PMH of A-fib on Eliquis, HTN, HLD, PE/DVT, asthma, T2DM, chronic anemia, chronic lymphedema, recurrent UTIs, ureteral stents for hydronephrosis presented with complaint of weakness, altered mental status and lethargy. Apparently she had outpatient urine culture done on 08/04/2024 which has subsequently grown E. coli but patient was not on any antibiotic for this infection. At presentation, she was noted to have acute kidney injury and hypotension requiring pressor support. She was admitted in ICU. She is being managed for the following: Catheter associated UTI Indwelling left ureteral stent Sepsis with shock: At admission WBC elevated, pulse rate elevated, blood pressure did not improve with fluid resuscitation needing pressor support and ICU admission. Metabolic encephalopathy: Secondary to above. Getting better. Gram-negative bacteremia, likely secondary to UTI Patient presenting with weakness, altered mental status, lethargy. Noted to have positive urine culture 08/04/2024, not on outpatient antibiotic. CT head with no acute finding. CTAP with left ureteral stent in appropriate position, mild bilateral hydronephrosis/nonobstructing ureteral calculi, exophytic left renal cyst stable . Osorio was exchanged in the ED, loraine pus was noted draining from Osorio catheter after exchange. Urinary catheter with tram driver urine noted at bedside. Follow admitting urine and blood culture. growing e coli Continue with / Rocephin, Vitals getting stable. ID evaled, Rocephin therapy for total of 14 days. Acute kidney injury: Creatinine of 2.29 at admission, baseline creatinine of 0.5. Status post IV fluid and pressor support. Likely prerenal secondary to hypotension. CTAP reviewed. Creatinine Resolved, labs in a.m. Demand ischemia: Troponin minimally elevated, patient with no chest pain, EKG with no acute ST or T changes, continue telemetry monitoring. Likely secondary to acute illness. Echo with EF of 65 to 70%, left ventricular wall motion is normal, no regional wall motion abnormalities noted. Other chronic medical conditions: Continue with/resume home meds as and when able. Paroxysmal A-fib: Continue home Eliquis, metoprolol on hold due to hypotension. Heart rate in 90s. Hypertension: Hold antihypertensive for now, now that blood pressure slowly holding up, resume home blood pressure medications as able. Hyperlipidemia: resume atorvastatin when able. History of DVT: continue with Eliquis. GERD: Continue with famotidine DVT prophylaxis: Eliquis CODE STATUS: DNR/DNI PCP: Lakhwinder Dispo: PT/OT, CM to assist with DC planning. Patient's son Gerald was given a phone call 08/15, updated, answered all his question, he voiced understanding about the plan of care. Admission and Anticipated Discharge Date Admission Date: August 14, 2024 Subjective Patient was seen and examined at bedside. Patient was lying in bed, on room air, Reports feeling better. Patient reports eating better, reports occasional cough with yellow sputum. Blood pressure has been holding up better. Patient requesting urology see her, communicated with urology. Physical Exam Physical Exam: Constitutional: Alert, appears ill/frail/weak/sick. HEENT: Mucous membranes moist, sclera clear Neck: Soft, no adenopathy Lungs: Decreased breath sounds, no wheezes CV: S1-S2, regular, tachycardic Abdomen: Soft, mild suprapubic tenderness - improved, nondistended Extremities: No significant edema Musculoskeletal: No significant joint tenderness Neuro: No focal deficits, global weakness Psych: Cooperative, normal mood UC in situ w/ light urine in the bag. Results & Data Results & Data Vital Signs (Past 12 Hours) Vital Signs Temp Pulse Pulse Resp BP Pulse Ox O2 Del Method 08/17/24 11:35 36.6 C 96 H 19 113/73 97 Room Air 08/17/24 09:19 Room Air 08/17/24 08:00 84 08/17/24 07:34 36.5 C 88 18 118/73 95 Room Air 08/17/24 04:02 36.4 C L 91 H 18 109/70 96 Room Air (9) Atrial fibrillation Atrial fibrillation type: unspecified Qualified Code(s): I48.91 - Unspecified atrial fibrillation
[2024-08-18 07:06] LABS: Hematocrit (blood only) 31.7 % (37.0-47.0); Hemoglobin 10.2 g/dl (12.0-16.0); Mean Corpuscular Hemoglobin 28.5 pg (25.0-34.0); Mean Corpuscular Hgb Conc 32.2 g/dL (32.0-36.0); Mean Corpuscular Volume 88.5 fL (80.0-100.0); Mean Platelet Volume 10.4 fL (9.4-12.4); Platelet Count 163 K/uL (130-400); RDW Coefficient of Variation 15.8 % (11.5-14.5); RDW Standard Deviation 51.7 fL (36.4-46.3); Red Blood Count 3.58 M/uL (4.20-5.40); White Blood Count 8.11 K/ul (4.8-10.8)
[2024-08-18 10:07] LABS: BUN Creatinine Ratio 26.7 (10-20); Calcium 8.5 mg/dl (8.6-10.3); Creatinine Clr Calc Pharmacy 83.8 ml/min; Magnesium 1.7 mg/dl (1.7-2.4); Phosphorus 2.8 mg/dl (2.5-4.9)
[2024-08-18] MEDS: POTASSIUM CHLORIDE / WTR 10 MEQ/100 ML PLCT IV ONE (10:52)
[2024-08-18] MEDS: POTASSIUM CHLORIDE CRTAB 20 MEQ TABCR PO STA (10:52)
--- NOTE | 2024-08-18 14:49 | Hospitalist Progress Note ---
Date of Service August 18, 2024 Assessment & Plan (1) Severe sepsis with acute organ dysfunction due to Gram negative bacteria: (2) Acute renal failure superimposed on chronic kidney disease: (3) Demand ischemia of myocardium: (4) Complicated urinary tract infection: (5) Acute metabolic encephalopathy: (6) Infection associated with indwelling ureteral stent: (7) Chronic indwelling Osorio catheter: (8) Morbid obesity: (9) Atrial fibrillation: (10) Pulmonary hypertension: Plan 78-year-old female resident of [facility] with PMH of A-fib on Eliquis, HTN, HLD, PE/DVT, asthma, T2DM, chronic anemia, chronic lymphedema, recurrent UTIs, ureteral stents for hydronephrosis presented with complaint of weakness, altered mental status and lethargy. Apparently she had outpatient urine culture done on 08/04/2024 which has subsequently grown E. coli but patient was not on any antibiotic for this infection. At presentation, she was noted to have acute kidney injury and hypotension requiring pressor support. She was admitted in ICU. She is being managed for the following: Catheter associated UTI Indwelling left ureteral stent- appreciate urology evaluation and recommendation to continue to follow-up as an outpatient. Sepsis with shock: At admission WBC elevated, pulse rate elevated, blood pressure did not improve with fluid resuscitation needing pressor support and ICU admission. Metabolic encephalopathy: Secondary to above. Improved Gram-negative bacteremia, secondary to UTI Patient presented with weakness, altered mental status, lethargy. Noted to have positive urine culture 08/04/2024, not on outpatient antibiotic. CT head with no acute finding. CTAP with left ureteral stent in appropriate position, mild bilateral hydronephrosis/nonobstructing ureteral calculi, exophytic left renal cyst stable . Osorio was exchanged in the ED, loraine pus was noted draining from Osorio catheter after exchange. 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 Blood and urine cultures were positive for E. coli Resistant to fluoroquinolone and Augmentin Has been getting ceftriaxone since 08/15/2024 Appreciate ID input and recommendationIV antibiotic will be continued with ceftriaxone 1 g daily until 08/29/[address] Acute kidney injury: Creatinine of 2.29 at admission, baseline creatinine of 0.5. Status post IV fluid and pressor support. Likely prerenal secondary to hypotension. CTAP reviewed. Creatinine Resolved Demand ischemia: Troponin minimally elevated, patient with no chest pain, EKG with no acute ST or T changes, continue telemetry monitoring. Likely secondary to acute illness. Echo with EF of 65 to 70%, left ventricular wall motion is normal, no regional wall motion abnormalities noted. Other chronic medical conditions: Continue with/resume home meds as and when able. Paroxysmal A-fib: Continue home Eliquis, metoprolol on hold due to hypotension. Heart rate in 90s. Hypertension: Hold antihypertensive for now, now that blood pressure slowly holding up, resume home blood pressure medications as able. Hyperlipidemia: resume atorvastatin when able. History of DVT: continue with Eliquis. GERD: Continue with famotidine DVT prophylaxis: Eliquis CODE STATUS: DNR/DNI PCP: Lakhwinder Dispo: PT/OT, CM to assist with DC planning. Patient's son Gerald was given a phone call 08/15, updated, answered all his question, he voiced understanding about the plan of care. Discussed with the patient son in detail and answered all of his question Admission and Anticipated Discharge Date Admission Date: August 14, 2024 Subjective 08/18/2024 The patient was seen and examined in telemetry unit She has been feeling much better and denies any significant symptoms except minimal back pain Denies any other symptoms Review of Systems Review of Systems: All systems reviewed and are unremarkable except as noted below Physical Exam Physical Exam: Lying in bed without any acute distress Constitutional: well developed, well nourished, + ill appearing and + obese Eyes: PERRL, conjunctivae normal, anicteric sclerae ENMT: external ear and nose normal, oropharynx normal Neck: trachea midline, no thyromegaly Respiratory: no respiratory distress Auscultation: lungs clear to auscultation bilaterally Cardiovascular: Rate/Rhythm: regular rate and regular rhythm; not tachycardic Heart Sounds: normal S1 and normal S2; no murmur Extremities: no edema Gastrointestinal (Abdomen): Inspection/Auscultation: normal bowel sounds; abdomen not distended Percussion/Palpation: abdomen soft; abdomen nontender Musculoskeletal: No acute arthritis involving any of the joints Neurologic: normal touch/pain/proprioception and moves all extremities; no focal motor deficits Lymphatic: no cervical or axillary lymphadenopathy Results & Data Results & Data Vital Signs (Past 12 Hours) Vital Signs Temp Pulse Pulse Resp BP BP Pulse Ox 08/18/24 10:58 36.7 C 87 18 150/80 H 96 08/18/24 10:42 08/18/24 07:54 36.7 C 92 H 16 131/80 97 08/18/24 07:34 81 08/18/24 03:53 36.5 C 91 H 18 129/67 95 O2 Del Method 08/18/24 10:58 Room Air 08/18/24 10:42 Room Air 08/18/24 07:54 Room Air 08/18/24 07:34 08/18/24 03:53 Room Air Laboratory Results Short CBC 08/18/24 Range/Units 06:26 WBC 8.11 (4.8-10.8) K/ul Hgb 10.2 L (12.0-16.0) g/dl Hct 31.7 L (37.0-47.0) % Plt Count 163 (130-400) K/uL BMP 08/18/24 06:26 Sodium 142 Potassium 3.0 L Chloride 110 H Carbon Dioxide 27 BUN 16 Creatinine 0.60 Glucose 84 Calcium 8.5 L Medications Administered Current Inpatient Medications Acetaminophen (Acetaminophen 325 Mg Tab) 650 mg PO Q4H PRN PRN Reason: Mild Pain or Fever Stop: 09/13/24 21:53 Last Admin: 08/17/24 20:47 Dose: 650 mg Al Hydrox/Mg Hydrox/Simethicone (Aluminum/Magnesium Susp 30 Ml Udc) 15 ml PO Q4H PRN PRN Reason: Dyspepsia Stop: 09/13/24 21:53 Apixaban (Apixaban 5 Mg Tablet) 5 mg PO [facility] Stop: 09/13/24 21:59 Last Admin: 08/18/24 07:42 Dose: 5 mg Dextrose (Dextrose 50% 50 Ml Syringe) 25 - 50 ml IV UD PRN; Protocol PRN Reason: Hypoglycemia Protocol Stop: 09/13/24 21:53 Docusate Sodium (Docusate Sodium 100 Mg Cap) 200 mg PO HS [facility] Stop: 09/13/24 21:59 Last Admin: 08/17/24 20:48 Dose: 200 mg Glucagon (Glucagon For Inj 1 Mg Vial) 1 mg SQ UD PRN; Protocol PRN Reason: Hypoglycemia Protocol Stop: 09/13/24 21:53 Glucose (Glucose 40% Gel 15 Gm Tube) 15 - 30 gm PO UD PRN; Protocol PRN Reason: Hypoglycemia Protocol Stop: 09/13/24 21:53 Glucose (Glucose 10 Tab/Tube) 4 - 8 tab PO UD PRN; Protocol PRN Reason: Hypoglycemia Protocol Stop: 09/13/24 21:53 Ceftriaxone Sodium (Rocephin) 2,000 mg in 50 mls @ 100 mls/hr IV Q24H [facility] Stop: 08/29/24 13:59 Last Infusion: 08/18/24 14:33 Dose: Infused Insulin Aspart (Insulin Aspart Per Unit Charge) 0 units SC ACHS [facility] Stop: 09/13/24 21:53 Last Admin: 08/18/24 11:43 Dose: Not Given Mirtazapine (Mirtazapine Tab 15 Mg Tab) 15 mg PO HS [facility] Stop: 09/13/24 21:59 Last Admin: 08/17/24 20:43 Dose: 15 mg Miscellaneous (Carbohydrates For Hypoglycemia ) 15 - 30 gm PO UD PRN PRN Reason: Hypoglycemia Protocol Stop: 09/13/24 21:53 Montelukast Sodium (Montelukast Sodium 10 Mg Tablet) [facility] Stop: 09/14/24 08:59 Last Admin: 08/18/24 07:42 Dose: 10 mg Ondansetron HCl (Ondansetron Inj 2 Mg/Ml 2 Ml Vial) 4 mg IV Q6H PRN PRN Reason: Nausea Stop: 09/13/24 21:53 Oxybutynin Chloride (Oxybutynin Chloride 5 Mg Tab) 5 mg PO Q8H PRN PRN Reason: bladder spasms Stop: 09/13/24 21:53 Pantoprazole Sodium (Pantoprazole 40 Mg Tab) 40 mg PO BID [facility]; Protocol Stop: 09/13/24 21:59 Last Admin: 08/18/24 07:42 Dose: 40 mg Petrolatum (Butt Paste (Zinc Oxide 16%) 171 Appln/57 Gm Jar) 1 appln TOP BID [facility] Stop: 09/13/24 21:53 Last Admin: 08/18/24 07:43 Dose: 1 appln Saccharomyces Boulardii (Saccharomyces Boulardii 250 Mg Cap) 250 mg PO QAM [facility] Stop: 09/14/24 08:59 Last Admin: 08/18/24 07:42 Dose: 250 mg Sucralfate (Sucralfate 1 Gm Tab) 1 gm PO ACHS [facility] Stop: 09/13/24 21:53 Last Admin: 08/18/24 10:59 Dose: 1 gm Tramadol HCl (Tramadol Hcl 50 Mg Tablet) 50 mg PO Q12H PRN PRN Reason: Moderate-Severe pain Stop: 09/13/24 21:53 Last Admin: 08/17/24 13:53 Dose: 50 mg (9) Atrial fibrillation Atrial fibrillation type: unspecified Qualified Code(s): I48.91 - Unspecified atrial fibrillation
[2024-08-19 06:57] LABS: Basophils # (auto) 0.03 K/uL (0.00-0.20); Basophils % (auto) 0.5 %; Eosinophils # (auto) 0.22 K/uL (0.00-0.50); Eosinophils % (auto) 3.4 %; Hematocrit (blood only) 33.9 % (37.0-47.0); Hemoglobin 10.9 g/dl (12.0-16.0); Immature Granulocytes # (auto) 0.25 K/uL (0.01-0.20); Immature Granulocytes % (auto) 3.9 %; Lymphocytes # (auto) 1.78 K/uL (1.20-3.40); Lymphocytes % (auto) 27.6 %; Mean Corpuscular Hemoglobin 28.7 pg (25.0-34.0); Mean Corpuscular Hgb Conc 32.2 g/dL (32.0-36.0); Mean Corpuscular Volume 89.2 fL (80.0-100.0); Monocytes # (auto) 0.52 K/uL (0.11-0.59); Neutrophils # (auto) 3.66 K/uL (1.40-6.50); Neutrophils % (auto) 56.6 %; Platelet Count 181 K/uL (130-400); RDW Coefficient of Variation 16.1 % (11.5-14.5); RDW Standard Deviation 53.4 fL (36.4-46.3); White Blood Count 6.46 K/ul (4.8-10.8)
[2024-08-19 07:16] LABS: BUN Creatinine Ratio 21.4 (10-20); Calcium 8.4 mg/dl (8.6-10.3); Creatinine Clr Calc Pharmacy 89.8 ml/min; Potassium 3.1 mmol/L (3.5-5.1)
[2024-08-19] MEDS: POTASSIUM CHLORIDE CRTAB 20 MEQ TABCR PO STA (10:34)
--- NOTE | 2024-08-19 14:20 | Hospitalist Progress Note ---
Date of Service August 19, 2024 Assessment & Plan (1) Severe sepsis with acute organ dysfunction due to Gram negative bacteria: (2) Acute renal failure superimposed on chronic kidney disease: (3) Demand ischemia of myocardium: (4) Complicated urinary tract infection: (5) Acute metabolic encephalopathy: (6) Infection associated with indwelling ureteral stent: (7) Chronic indwelling Osorio catheter: (8) Morbid obesity: (9) Atrial fibrillation: (10) Pulmonary hypertension: Plan 78-year-old female resident of [facility] with PMH of A-fib on Eliquis, HTN, HLD, PE/DVT, asthma, T2DM, chronic anemia, chronic lymphedema, recurrent UTIs, ureteral stents for hydronephrosis presented with complaint of weakness, altered mental status and lethargy. Apparently she had outpatient urine culture done on 08/04/2024 which has subsequently grown E. coli but patient was not on any antibiotic for this infection. At presentation, she was noted to have acute kidney injury and hypotension requiring pressor support. She was admitted in ICU. She is being managed for the following: Catheter associated UTI Indwelling left ureteral stent- appreciate urology evaluation and recommendation to continue to follow-up as an outpatient. Sepsis with shock: At admission WBC elevated, pulse rate elevated, blood pressure did not improve with fluid resuscitation needing pressor support and ICU admission. Metabolic encephalopathy: Secondary to above. Improved Gram-negative bacteremia, secondary to UTI Patient presented with weakness, altered mental status, lethargy. Noted to have positive urine culture 08/04/2024, not on outpatient antibiotic. CT head with no acute finding. CTAP with left ureteral stent in appropriate position, mild bilateral hydronephrosis/nonobstructing ureteral calculi, exophytic left renal cyst stable . Osorio was exchanged in the ED, loraine pus was noted draining from Osorio catheter after exchange. 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 Blood and urine cultures were positive for E. coli Resistant to fluoroquinolone and Augmentin Has been getting ceftriaxone since 08/15/2024 Appreciate ID input and recommendationIV antibiotic will be continued with ceftriaxone 1 g daily until 08/29/2024 [address] Remains medically stable and awaiting transfer to a facility Constipation Minimal abdominal discomfort Has been on Colace and will add MiraLAX Acute kidney injury: Creatinine of 2.29 at admission, baseline creatinine of 0.5. Status post IV fluid and pressor support. Likely prerenal secondary to hypotension. CTAP reviewed. Creatinine Resolved Demand ischemia: Troponin minimally elevated, patient with no chest pain, EKG with no acute ST or T changes, continue telemetry monitoring. Likely secondary to acute illness. Echo with EF of 65 to 70%, left ventricular wall motion is normal, no regional wall motion abnormalities noted. Denies any cardiac symptoms Other chronic medical conditions: Continue with/resume home meds as and when able. Paroxysmal A-fib: Continue home Eliquis, metoprolol on hold due to hypotension. Heart rate in 90s. Hypertension: Hold antihypertensive for now, now that blood pressure slowly holding up, resume home blood pressure medications as able. Hyperlipidemia: resume atorvastatin when able. History of DVT: continue with Eliquis. GERD: Continue with famotidine DVT prophylaxis: Eliquis CODE STATUS: DNR/DNI PCP: Lakhwinder Dispo: PT/OT, CM to assist with DC planning. Patient's son Gerald was given a phone call 08/15, updated, answered all his question, he voiced understanding about the plan of care. Discussed with the patient son in detail and answered all of his question Admission and Anticipated Discharge Date Admission Date: August 14, 2024 Subjective 08/18/2024 The patient was seen and examined in telemetry unit She has been feeling much better and denies any significant symptoms except minimal back pain Denies any other symptoms 08/19/2024 The patient was seen and examined in telemetry unit She has not had a bowel movement and complains some abdominal discomfort without pain, nausea and or vomiting Denies any fever and or chills but does have occasional sweating Review of Systems Review of Systems: All systems reviewed and are unremarkable except as noted below Physical Exam Physical Exam: Lying in bed without any acute distress Constitutional: well developed, well nourished, + ill appearing and + obese Eyes: PERRL, conjunctivae normal, anicteric sclerae ENMT: external ear and nose normal, oropharynx normal Neck: trachea midline, no thyromegaly Respiratory: no respiratory distress Auscultation: lungs clear to auscultation bilaterally Cardiovascular: Rate/Rhythm: regular rate and regular rhythm; not tachycardic Heart Sounds: normal S1 and normal S2; no murmur Extremities: no edema Gastrointestinal (Abdomen): Inspection/Auscultation: normal bowel sounds; abdomen not distended Percussion/Palpation: abdomen soft; abdomen nontender Neurologic: normal touch/pain/proprioception and moves all extremities; no focal motor deficits Lymphatic: no cervical or axillary lymphadenopathy Results & Data Results & Data Vital Signs (Past 12 Hours) Vital Signs Temp Pulse Pulse Resp BP BP Pulse Ox 08/19/24 13:52 106 H 08/19/24 10:50 36.7 C 88 17 118/60 98 08/19/24 08:13 08/19/24 08:00 93 H 08/19/24 07:56 36.8 C 90 18 150/83 H 95 08/19/24 02:42 36.8 C 80 16 102/56 L 95 O2 Del Method 08/19/24 13:52 08/19/24 10:50 Room Air 08/19/24 08:13 Room Air 08/19/24 08:00 08/19/24 07:56 Room Air 08/19/24 02:42 Room Air Laboratory Results Short CBC 08/19/24 Range/Units 06:31 WBC 6.46 (4.8-10.8) K/ul Hgb 10.9 L (12.0-16.0) g/dl Hct 33.9 L (37.0-47.0) % Plt Count 181 (130-400) K/uL BMP 08/19/24 06:31 Sodium 145 Potassium 3.1 L Chloride 109 H Carbon Dioxide 30 BUN 12 Creatinine 0.56 L Glucose 96 Calcium 8.4 L Medications Administered Current Inpatient Medications Acetaminophen (Acetaminophen 325 Mg Tab) 650 mg PO Q4H PRN PRN Reason: Mild Pain or Fever Stop: 09/13/24 21:53 Last Admin: 08/18/24 21:24 Dose: 650 mg Al Hydrox/Mg Hydrox/Simethicone (Aluminum/Magnesium Susp 30 Ml Udc) 15 ml PO Q4H PRN PRN Reason: Dyspepsia Stop: 09/13/24 21:53 Apixaban (Apixaban 5 Mg Tablet) 5 mg PO [facility] Stop: 09/13/24 21:59 Last Admin: 08/19/24 07:46 Dose: 5 mg Dextrose (Dextrose 50% 50 Ml Syringe) 25 - 50 ml IV UD PRN; Protocol PRN Reason: Hypoglycemia Protocol Stop: 09/13/24 21:53 Docusate Sodium (Docusate Sodium 100 Mg Cap) 200 mg PO HS [facility] Stop: 09/13/24 21:59 Last Admin: 08/18/24 21:13 Dose: 200 mg Glucagon (Glucagon For Inj 1 Mg Vial) 1 mg SQ UD PRN; Protocol PRN Reason: Hypoglycemia Protocol Stop: 09/13/24 21:53 Glucose (Glucose 40% Gel 15 Gm Tube) 15 - 30 gm PO UD PRN; Protocol PRN Reason: Hypoglycemia Protocol Stop: 09/13/24 21:53 Glucose (Glucose 10 Tab/Tube) 4 - 8 tab PO UD PRN; Protocol PRN Reason: Hypoglycemia Protocol Stop: 09/13/24 21:53 Ceftriaxone Sodium (Rocephin) 2,000 mg in 50 mls @ 100 mls/hr IV Q24H [facility] Stop: 08/29/24 13:59 Last Infusion: 08/19/24 13:40 Dose: Infused Mirtazapine (Mirtazapine Tab 15 Mg Tab) 15 mg PO [facility] Stop: 09/13/24 21:59 Last Admin: 08/18/24 21:10 Dose: 15 mg Miscellaneous (Carbohydrates For Hypoglycemia ) 15 - 30 gm PO UD PRN PRN Reason: Hypoglycemia Protocol Stop: 09/13/24 21:53 Montelukast Sodium (Montelukast Sodium 10 Mg Tablet) 10 mg PO QAM [facility] Stop: 09/14/24 08:59 Last Admin: 08/19/24 07:46 Dose: 10 mg Ondansetron HCl (Ondansetron Inj 2 Mg/Ml 2 Ml Vial) 4 mg IV Q6H PRN PRN Reason: Nausea Stop: 09/13/24 21:53 Oxybutynin Chloride (Oxybutynin Chloride 5 Mg Tab) 5 mg PO Q8H PRN PRN Reason: bladder spasms Stop: 09/13/24 21:53 Pantoprazole Sodium (Pantoprazole 40 Mg Tab) 40 mg PO BID [facility]; Protocol Stop: 09/13/24 21:59 Last Admin: 08/19/24 07:46 Dose: 40 mg Petrolatum (Butt Paste (Zinc Oxide 16%) 171 Appln/57 Gm Jar) 1 appln TOP BID [facility] Stop: 09/13/24 21:53 Last Admin: 08/19/24 07:47 Dose: 1 appln Polyethylene Glycol (Polyethylene (Miralax) 17 Gm Pack) 17 gm PO DAILY [facility] Stop: 09/18/24 13:44 Saccharomyces Boulardii (Saccharomyces Boulardii 250 Mg Cap) 250 mg PO QAM [facility] Stop: 09/14/24 08:59 Last Admin: 08/19/24 07:46 Dose: 250 mg Sucralfate (Sucralfate 1 Gm Tab) 1 gm PO ACHS [facility] Stop: 09/13/24 21:53 Last Admin: 08/19/24 11:41 Dose: 1 gm Tramadol HCl (Tramadol Hcl 50 Mg Tablet) 50 mg PO Q12H PRN PRN Reason: Moderate-Severe pain Stop: 09/13/24 21:53 Last Admin: 08/17/24 13:53 Dose: 50 mg (9) Atrial fibrillation Atrial fibrillation type: unspecified Qualified Code(s): I48.91 - Unspecified atrial fibrillation
[2024-08-19] MEDS: POLYETHYLENE (MIRALAX) 17 GM PACK PO SCH (14:45)
--- NOTE | 2024-08-20 13:18 | Hospitalist Progress Note ---
Date of Service August 20, 2024 Assessment & Plan (1) Severe sepsis with acute organ dysfunction due to Gram negative bacteria: (2) Acute renal failure superimposed on chronic kidney disease: (3) Demand ischemia of myocardium: (4) Complicated urinary tract infection: (5) Acute metabolic encephalopathy: (6) Infection associated with indwelling ureteral stent: (7) Chronic indwelling Osorio catheter: (8) Morbid obesity: (9) Atrial fibrillation: (10) Pulmonary hypertension: Plan 78-year-old female resident of [facility] with PMH of A-fib on Eliquis, HTN, HLD, PE/DVT, asthma, T2DM, chronic anemia, chronic lymphedema, recurrent UTIs, ureteral stents for hydronephrosis presented with complaint of weakness, altered mental status and lethargy. Apparently she had outpatient urine culture done on 08/04/2024 which has subsequently grown E. coli but patient was not on any antibiotic for this infection. At presentation, she was noted to have acute kidney injury and hypotension requiring pressor support. She was admitted in ICU. She is being managed for the following: Catheter associated UTI Indwelling left ureteral stent- appreciate urology evaluation and recommendation to continue to follow-up as an outpatient. Sepsis with shock: At admission WBC elevated, pulse rate elevated, blood pressure did not improve with fluid resuscitation needing pressor support and ICU admission. Metabolic encephalopathy: Secondary to above. Improved Gram-negative bacteremia, secondary to UTI Patient presented with weakness, altered mental status, lethargy. Noted to have positive urine culture 08/04/2024, not on outpatient antibiotic. CT head with no acute finding. CTAP with left ureteral stent in appropriate position, mild bilateral hydronephrosis/nonobstructing ureteral calculi, exophytic left renal cyst stable . Osorio was exchanged in the ED, loraine pus was noted draining from Osorio catheter after exchange. 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 Blood and urine cultures were positive for E. coli Resistant to fluoroquinolone and Augmentin Has been getting ceftriaxone since 08/15/2024 Appreciate ID input and recommendationIV antibiotic will be continued with ceftriaxone 1 g daily until 08/29/2024 [address] placement Remains medically stable and awaiting transfer to a facility Symptomatically much better and denies any significant symptoms Likely transfer to facility tomorrow Constipation Minimal abdominal discomfort Has been on Colace and will add MiraLAX Bowel has mopped and will continue the current regimen on discharge Acute kidney injury: Creatinine of 2.29 at admission, baseline creatinine of 0.5. Status post IV fluid and pressor support. Likely prerenal secondary to hypotension. CTAP reviewed. Creatinine Resolved Demand ischemia: Troponin minimally elevated, patient with no chest pain, EKG with no acute ST or T changes, continue telemetry monitoring. Likely secondary to acute illness. Echo with EF of 65 to 70%, left ventricular wall motion is normal, no regional wall motion abnormalities noted. Denies any cardiac symptoms Other chronic medical conditions: Continue with/resume home meds as and when able. Paroxysmal A-fib: Continue home Eliquis, metoprolol on hold due to hypotension. Heart rate in 90s. Hypertension: Hold antihypertensive for now, now that blood pressure slowly holding up, resume home blood pressure medications as able. Hyperlipidemia: resume atorvastatin when able. History of DVT: continue with Eliquis. GERD: Continue with famotidine DVT prophylaxis: Eliquis CODE STATUS: DNR/DNI PCP: Lakhwinder Dispo: PT/OT, CM to assist with DC planning. Patient's son Gerald was given a phone call 08/15, updated, answered all his question, he voiced understanding about the plan of care. Discussed with the patient son in detail and answered all of his question Admission and Anticipated Discharge Date Admission Date: August 14, 2024 Subjective 08/18/2024 The patient was seen and examined in telemetry unit She has been feeling much better and denies any significant symptoms except minimal back pain Denies any other symptoms 08/19/2024 The patient was seen and examined in telemetry unit She has not had a bowel movement and complains some abdominal discomfort without pain, nausea and or vomiting Denies any fever and or chills but does have occasional sweating 08/20/2024 The patient was seen and examined in telemetry unit She has been feeling much better today and her abdominal and back pain is controlled Denies any fever or chills Likely discharge tomorrow Review of Systems Review of Systems: All systems reviewed and are unremarkable except as noted below Physical Exam Physical Exam: Lying in bed without any acute distress Constitutional: well developed, well nourished, + ill appearing and + obese Eyes: PERRL, conjunctivae normal, anicteric sclerae ENMT: external ear and nose normal, oropharynx normal Neck: trachea midline, no thyromegaly Respiratory: no respiratory distress Auscultation: lungs clear to auscultation bilaterally Cardiovascular: Rate/Rhythm: regular rate and regular rhythm; not tachycardic Heart Sounds: normal S1 and normal S2; no murmur Extremities: no edema Gastrointestinal (Abdomen): Inspection/Auscultation: normal bowel sounds; abdomen not distended Percussion/Palpation: abdomen soft; abdomen nontender Neurologic: normal touch/pain/proprioception and moves all extremities; no focal motor deficits Lymphatic: no cervical or axillary lymphadenopathy Results & Data Results & Data Vital Signs (Past 12 Hours) Vital Signs Temp Pulse Pulse Resp BP Pulse Ox O2 Del Method 08/20/24 11:15 Room Air 08/20/24 11:09 36.6 C 95 H 14 129/78 97 Room Air 08/20/24 08:26 36.8 C 103 H 19 135/75 94 Room Air 08/20/24 07:12 89 08/20/24 02:42 36.6 C 82 16 121/70 93 Room Air Medications Administered Current Inpatient Medications Acetaminophen (Acetaminophen 325 Mg Tab) 650 mg PO Q4H PRN PRN Reason: Mild Pain or Fever Stop: 09/13/24 21:53 Last Admin: 08/20/24 07:40 Dose: 650 mg Al Hydrox/Mg Hydrox/Simethicone (Aluminum/Magnesium Susp 30 Ml Udc) 15 ml PO Q4H PRN PRN Reason: Dyspepsia Stop: 09/13/24 21:53 Apixaban (Apixaban 5 Mg Tablet) 5 mg PO [facility] Stop: 09/13/24 21:59 Last Admin: 08/20/24 09:22 Dose: 5 mg Dextrose (Dextrose 50% 50 Ml Syringe) 25 - 50 ml IV UD PRN; Protocol PRN Reason: Hypoglycemia Protocol Stop: 09/13/24 21:53 Docusate Sodium (Docusate Sodium 100 Mg Cap) 200 mg PO HS [facility] Stop: 09/13/24 21:59 Last Admin: 08/19/24 21:32 Dose: 200 mg Glucagon (Glucagon For Inj 1 Mg Vial) 1 mg SQ UD PRN; Protocol PRN Reason: Hypoglycemia Protocol Stop: 09/13/24 21:53 Glucose (Glucose 40% Gel 15 Gm Tube) 15 - 30 gm PO UD PRN; Protocol PRN Reason: Hypoglycemia Protocol Stop: 09/13/24 21:53 Glucose (Glucose 10 Tab/Tube) 4 - 8 tab PO UD PRN; Protocol PRN Reason: Hypoglycemia Protocol Stop: 09/13/24 21:53 Ceftriaxone Sodium (Rocephin) 2,000 mg in 50 mls @ 100 mls/hr IV Q24H [facility] Stop: 08/29/24 13:59 Last Infusion: 08/19/24 13:40 Dose: Infused Mirtazapine (Mirtazapine Tab 15 Mg Tab) 15 mg PO HS [facility] Stop: 09/13/24 21:59 Last Admin: 08/19/24 21:26 Dose: 15 mg Miscellaneous (Carbohydrates For Hypoglycemia ) 15 - 30 gm PO UD PRN PRN Reason: Hypoglycemia Protocol Stop: 09/13/24 21:53 Montelukast Sodium (Montelukast Sodium 10 Mg Tablet) 10 mg PO QAM [facility] Stop: 09/14/24 08:59 Last Admin: 08/20/24 09:22 Dose: 10 mg Ondansetron HCl (Ondansetron Inj 2 Mg/Ml 2 Ml Vial) 4 mg IV Q6H PRN PRN Reason: Nausea Stop: 09/13/24 21:53 Oxybutynin Chloride (Oxybutynin Chloride 5 Mg Tab) 5 mg PO Q8H PRN PRN Reason: bladder spasms Stop: 09/13/24 21:53 Pantoprazole Sodium (Pantoprazole 40 Mg Tab) 40 mg PO BID [facility]; Protocol Stop: 09/13/24 21:59 Last Admin: 08/20/24 09:22 Dose: 40 mg Petrolatum (Butt Paste (Zinc Oxide 16%) 171 Appln/57 Gm Jar) 1 appln TOP BID [facility] Stop: 09/13/24 21:53 Last Admin: 08/20/24 09:23 Dose: 1 appln Polyethylene Glycol (Polyethylene (Miralax) 17 Gm Pack) 17 gm PO DAILY [facility] Stop: 09/18/24 13:44 Last Admin: 08/20/24 09:27 Dose: 17 gm Saccharomyces Boulardii (Saccharomyces Boulardii 250 Mg Cap) 250 mg PO QAM [facility] Stop: 09/14/24 08:59 Last Admin: 08/20/24 09:22 Dose: 250 mg Sucralfate (Sucralfate 1 Gm Tab) 1 gm PO ACHS [facility] Stop: 09/13/24 21:53 Last Admin: 08/20/24 11:30 Dose: 1 gm Tramadol HCl (Tramadol Hcl 50 Mg Tablet) 50 mg PO Q12H PRN PRN Reason: Moderate-Severe pain Stop: 09/13/24 21:53 Last Admin: 08/19/24 21:32 Dose: 50 mg (9) Atrial fibrillation Atrial fibrillation type: unspecified Qualified Code(s): I48.91 - Unspecified atrial fibrillation
[2024-08-21 08:02] LABS: Basophils # (auto) 0.02 K/uL (0.00-0.20); Basophils % (auto) 0.3 %; Eosinophils # (auto) 0.26 K/uL (0.00-0.50); Eosinophils % (auto) 4.3 %; Hematocrit (blood only) 33.3 % (37.0-47.0); Hemoglobin 10.4 g/dl (12.0-16.0); Immature Granulocytes % (auto) 4.9 %; Lymphocytes # (auto) 2.24 K/uL (1.20-3.40); Lymphocytes % (auto) 36.7 %; Mean Corpuscular Hemoglobin 28.3 pg (25.0-34.0); Mean Corpuscular Hgb Conc 31.2 g/dL (32.0-36.0); Mean Corpuscular Volume 90.5 fL (80.0-100.0); Mean Platelet Volume 9.4 fL (9.4-12.4); Monocytes # (auto) 0.49 K/uL (0.11-0.59); Neutrophils # (auto) 2.79 K/uL (1.40-6.50); Neutrophils % (auto) 45.8 %; Platelet Count 225 K/uL (130-400); RDW Coefficient of Variation 15.7 % (11.5-14.5); RDW Standard Deviation 52.2 fL (36.4-46.3); Red Blood Count 3.68 M/uL (4.20-5.40)
[2024-08-21 08:14] LABS: BUN Creatinine Ratio 16.7 (10-20); Calcium 8.1 mg/dl (8.6-10.3); Creatinine Clr Calc Pharmacy 94.1 ml/min; Magnesium 1.5 mg/dl (1.7-2.4); Potassium 3.9 mmol/L (3.5-5.1)
--- NOTE | 2024-08-21 10:05 | Electrocardiogram Report ---
Test Reason : Blood Pressure : */* mmHG Vent. Rate : 96 BPM Atrial Rate : 81 BPM P-R Int : * ms QRS Dur : 84 ms QT Int : 334 ms P-R-T Axes : * 41 218 degrees QTcB Int : 421 ms Atrial fibrillation Low voltage QRS Diffuse Nonspecific T wave abnormality Old Inferior infarct Abnormal ECG When compared with ECG of 14-Aug-2024 15:15, HR has decreased by 23 bpm Confirmed by Ramakrishna Wise ([id number] on 08/21/2024 10:04:47 AM Referred By: REFERRED SELF Confirmed By: Ramakrishna Wise
[2024-08-21] MEDS: METOPROLOL SUCC 50MG EXT REL TAB PO SCH (11:10)
[2024-08-21] MEDS: METOPROLOL TARTRATE 1 MG/ML VIAL IV STA (11:11)
--- NOTE | 2024-08-21 12:55 | Hospitalist Progress Note ---
Date of Service August 21, 2024 Assessment & Plan (1) Severe sepsis with acute organ dysfunction due to Gram negative bacteria: (2) Acute renal failure superimposed on chronic kidney disease: (3) Demand ischemia of myocardium: (4) Complicated urinary tract infection: (5) Acute metabolic encephalopathy: (6) Infection associated with indwelling ureteral stent: (7) Chronic indwelling Osorio catheter: (8) Morbid obesity: (9) Atrial fibrillation: (10) Pulmonary hypertension: Plan 78-year-old female resident of [facility] with PMH of A-fib on Eliquis, HTN, HLD, PE/DVT, asthma, T2DM, chronic anemia, chronic lymphedema, recurrent UTIs, ureteral stents for hydronephrosis presented with complaint of weakness, altered mental status and lethargy. Apparently she had outpatient urine culture done on 08/04/2024 which has subsequently grown E. coli but patient was not on any antibiotic for this infection. At presentation, she was noted to have acute kidney injury and hypotension requiring pressor support. She was admitted in ICU. She is being managed for the following: Catheter associated UTI Indwelling left ureteral stent- appreciate urology evaluation and recommendation to continue to follow-up as an outpatient. Sepsis with shock: At admission WBC elevated, pulse rate elevated, blood pressure did not improve with fluid resuscitation needing pressor support and ICU admission. Metabolic encephalopathy: Secondary to above. Improved Gram-negative bacteremia, secondary to UTI Patient presented with weakness, altered mental status, lethargy. Noted to have positive urine culture 08/04/2024, not on outpatient antibiotic. CT head with no acute finding. CTAP with left ureteral stent in appropriate position, mild bilateral hydronephrosis/nonobstructing ureteral calculi, exophytic left renal cyst stable . Osorio was exchanged in the ED, loraine pus was noted draining from Osorio catheter after exchange. 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 Blood and urine cultures were positive for E. coli Resistant to fluoroquinolone and Augmentin Has been getting ceftriaxone since 08/15/2024 Appreciate ID input and recommendationIV antibiotic will be continued with ceftriaxone 1 g daily until 08/29/20[address] Remains medically stable and awaiting transfer to a facility Symptomatically much better and denies any significant symptoms Remains stable and denies any significant symptoms She is ready to be discharged when there is a place for her to go to continue rehab Constipation Minimal abdominal discomfort Has been on Colace and will add MiraLAX Bowel has mopped and will continue the current regimen on discharge Acute kidney injury: Creatinine of 2.29 at admission, baseline creatinine of 0.5. Status post IV fluid and pressor support. Likely prerenal secondary to hypotension. CTAP reviewed. Creatinine Resolved Demand ischemia: Troponin minimally elevated, patient with no chest pain, EKG with no acute ST or T changes, continue telemetry monitoring. Likely secondary to acute illness. Echo with EF of 65 to 70%, left ventricular wall motion is normal, no regional wall motion abnormalities noted. Denies any cardiac symptoms Other chronic medical conditions: Continue with/resume home meds as and when able. Paroxysmal A-fib: Continue home Eliquis, metoprolol on hold due to hypotension. Heart rate in 90s. Her heart rate was noted to be high this morning at 1 30-1 40. Heart beta-iker is on hold due to hypotension Metoprolol succinate has been started with the previous dose Hypertension: Hold antihypertensive for now, now that blood pressure slowly holding up, resume home blood pressure medications as able. Hyperlipidemia: resume atorvastatin when able. History of DVT: continue with Eliquis. GERD: Continue with famotidine DVT prophylaxis: Eliquis CODE STATUS: DNR/DNI PCP: Lakhwinder Dispo: PT/OT, CM to assist with DC planning. Patient's son Gerald was given a phone call 08/15, updated, answered all his question, he voiced understanding about the plan of care. Discussed with the patient son in detail and answered all of his question Admission and Anticipated Discharge Date Admission Date: August 14, 2024 Subjective 08/18/2024 The patient was seen and examined in telemetry unit She has been feeling much better and denies any significant symptoms except minimal back pain Denies any other symptoms 08/19/2024 The patient was seen and examined in telemetry unit She has not had a bowel movement and complains some abdominal discomfort without pain, nausea and or vomiting Denies any fever and or chills but does have occasional sweating 08/20/2024 The patient was seen and examined in telemetry unit She has been feeling much better today and her abdominal and back pain is controlled Denies any fever or chills Likely discharge tomorrow 08/21/2024 The patient was seen and examined in telemetry unit She was noted to have high heart rate following sitting at the edge of the bed from lying [place] dizzy subsequently the condition resolved She denies any other significant symptoms Heart beta-iker is on hold due to hypotension and that has been restarted Review of Systems Review of Systems: All systems reviewed and are unremarkable except as noted below Physical Exam Physical Exam: Lying in bed without any acute distress Constitutional: well developed, well nourished, + ill appearing and + obese Eyes: PERRL, conjunctivae normal, anicteric sclerae ENMT: external ear and nose normal, oropharynx normal Neck: trachea midline, no thyromegaly Respiratory: no respiratory distress Auscultation: lungs clear to auscultation bilaterally Cardiovascular: Rate/Rhythm: regular rate and regular rhythm; not tachycardic Heart Sounds: normal S1 and normal S2; no murmur Extremities: no edema Gastrointestinal (Abdomen): Inspection/Auscultation: normal bowel sounds; abdomen not distended Percussion/Palpation: abdomen soft; abdomen nontender Neurologic: normal touch/pain/proprioception and moves all extremities; no focal motor deficits Lymphatic: no cervical or axillary lymphadenopathy Results & Data Results & Data Vital Signs (Past 12 Hours) Vital Signs Temp Pulse Pulse Resp BP BP Pulse Ox 08/21/24 12:35 85 134/82 08/21/24 11:32 36.8 C 87 19 127/82 96 08/21/24 08:38 36.8 C 108 H 19 129/63 92 08/21/24 08:00 66 08/21/24 03:00 36.6 C 89 20 132/71 95 08/21/24 00:56 86 O2 Del Method 08/21/24 12:35 08/21/24 11:32 Room Air 08/21/24 08:38 Room Air 08/21/24 08:00 08/21/24 03:00 Room Air 08/21/24 00:56 Laboratory Results Short CBC 08/21/24 Range/Units 07:23 WBC 6.10 (4.8-10.8) K/ul Hgb 10.4 L (12.0-16.0) g/dl Hct 33.3 L (37.0-47.0) % Plt Count 225 (130-400) K/uL BMP 08/21/24 07:23 Sodium 144 Potassium 3.9 Chloride 108 H Carbon Dioxide 32 BUN 9 Creatinine 0.54 L Glucose 95 Calcium 8.1 L Medications Administered Current Inpatient Medications Acetaminophen (Acetaminophen 325 Mg Tab) 650 mg PO Q4H PRN PRN Reason: Mild Pain or Fever Stop: 09/13/24 21:53 Last Admin: 08/21/24 10:17 Dose: 650 mg Al Hydrox/Mg Hydrox/Simethicone (Aluminum/Magnesium Susp 30 Ml Udc) 15 ml PO Q4H PRN PRN Reason: Dyspepsia Stop: 09/13/24 21:53 Apixaban (Apixaban 5 Mg Tablet) 5 mg PO AMHS [facility] Stop: 09/13/24 21:59 Last Admin: 08/21/24 10:10 Dose: 5 mg Dextrose (Dextrose 50% 50 Ml Syringe) 25 - 50 ml IV UD PRN; Protocol PRN Reason: Hypoglycemia Protocol Stop: 09/13/24 21:53 Docusate Sodium (Docusate Sodium 100 Mg Cap) 200 mg PO HS [facility] Stop: 09/13/24 21:59 Last Admin: 08/20/24 19:52 Dose: 200 mg Glucagon (Glucagon For Inj 1 Mg Vial) 1 mg SQ UD PRN; Protocol PRN Reason: Hypoglycemia Protocol Stop: 09/13/24 21:53 Glucose (Glucose 40% Gel 15 Gm Tube) 15 - 30 gm PO UD PRN; Protocol PRN Reason: Hypoglycemia Protocol Stop: 09/13/24 21:53 Glucose (Glucose 10 Tab/Tube) 4 - 8 tab PO UD PRN; Protocol PRN Reason: Hypoglycemia Protocol Stop: 09/13/24 21:53 Ceftriaxone Sodium (Rocephin) 2,000 mg in 50 mls @ 100 mls/hr IV Q24H [facility] Stop: 08/29/24 13:59 Last Infusion: 08/20/24 14:04 Dose: Infused Metoprolol Succinate (Metoprolol Succ 50mg Ext Rel Tab) 50 mg PO BID [facility] Stop: 09/20/24 09:59 Last Admin: 08/21/24 11:10 Dose: 50 mg Mirtazapine (Mirtazapine Tab 15 Mg Tab) 15 mg PO HS [facility] Stop: 09/13/24 21:59 Last Admin: 08/20/24 19:53 Dose: 15 mg Miscellaneous (Carbohydrates For Hypoglycemia ) 15 - 30 gm PO UD PRN PRN Reason: Hypoglycemia Protocol Stop: 09/13/24 21:53 Montelukast Sodium (Montelukast Sodium 10 Mg Tablet) 10 mg PO QAM [facility] Stop: 09/14/24 08:59 Last Admin: 08/21/24 10:10 Dose: 10 mg Ondansetron HCl (Ondansetron Inj 2 Mg/Ml 2 Ml Vial) 4 mg IV Q6H PRN PRN Reason: Nausea Stop: 09/13/24 21:53 Oxybutynin Chloride (Oxybutynin Chloride 5 Mg Tab) 5 mg PO Q8H PRN PRN Reason: bladder spasms Stop: 09/13/24 21:53 Pantoprazole Sodium (Pantoprazole 40 Mg Tab) 40 mg PO BID [facility]; Protocol Stop: 09/13/24 21:59 Last Admin: 08/21/24 10:10 Dose: 40 mg Petrolatum (Butt Paste (Zinc Oxide 16%) 171 Appln/57 Gm Jar) 1 appln TOP BID [facility] Stop: 09/13/24 21:53 Last Admin: 08/21/24 10:11 Dose: 1 appln Polyethylene Glycol (Polyethylene (Miralax) 17 Gm Pack) 17 gm PO DAILY [facility] Stop: 09/18/24 13:44 Last Admin: 08/21/24 10:17 Dose: 17 gm Saccharomyces Boulardii (Saccharomyces Boulardii 250 Mg Cap) 250 mg PO QAM [facility] Stop: 09/14/24 08:59 Last Admin: 08/21/24 10:10 Dose: 250 mg Sucralfate (Sucralfate 1 Gm Tab) 1 gm PO ACHS [facility] Stop: 09/13/24 21:53 Last Admin: 08/21/24 11:10 Dose: 1 gm Tramadol HCl (Tramadol Hcl 50 Mg Tablet) 50 mg PO Q12H PRN PRN Reason: Moderate-Severe pain Stop: 09/13/24 21:53 Last Admin: 08/19/24 21:32 Dose: 50 mg (9) Atrial fibrillation Atrial fibrillation type: unspecified Qualified Code(s): I48.91 - Unspecified atrial fibrillation
[2024-08-21] MEDS: MAGNESIUM SULFATE / D5W 1 GM/100 ML BAG IV ONE (13:57)
--- NOTE | 2024-08-22 14:15 | Hospitalist Progress Note ---
Date of Service August 22, 2024 Assessment & Plan (1) Severe sepsis with acute organ dysfunction due to Gram negative bacteria: (2) Acute renal failure superimposed on chronic kidney disease: (3) Demand ischemia of myocardium: (4) Complicated urinary tract infection: (5) Acute metabolic encephalopathy: (6) Infection associated with indwelling ureteral stent: (7) Chronic indwelling Osorio catheter: (8) Morbid obesity: (9) Atrial fibrillation: (10) Pulmonary hypertension: Plan 78-year-old female resident of [facility] with PMH of A-fib on Eliquis, HTN, HLD, PE/DVT, asthma, T2DM, chronic anemia, chronic lymphedema, recurrent UTIs, ureteral stents for hydronephrosis presented with complaint of weakness, altered mental status and lethargy. Apparently she had outpatient urine culture done on 08/04/2024 which has subsequently grown E. coli but patient was not on any antibiotic for this infection. At presentation, she was noted to have acute kidney injury and hypotension requiring pressor support. She was admitted in ICU. She is being managed for the following: Catheter associated UTI Indwelling left ureteral stent- appreciate urology evaluation and recommendation to continue to follow-up as an outpatient. Sepsis with shock: At admission WBC elevated, pulse rate elevated, blood pressure did not improve with fluid resuscitation needing pressor support and ICU admission. Metabolic encephalopathy: Secondary to above. Improved Gram-negative bacteremia, secondary to UTI Patient presented with weakness, altered mental status, lethargy. Noted to have positive urine culture 08/04/2024, not on outpatient antibiotic. CT head with no acute finding. CTAP with left ureteral stent in appropriate position, mild bilateral hydronephrosis/nonobstructing ureteral calculi, exophytic left renal cyst stable . Osorio was exchanged in the ED, loraine pus was noted draining from Osorio catheter after exchange. 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 Blood and urine cultures were positive for E. coli Resistant to fluoroquinolone and Augmentin Has been getting ceftriaxone since 08/15/2024 Appreciate ID input and recommendationIV antibiotic will be continued with ceftriaxone 1 g daily until 08/29/2024 [address] placement Minimal pain at the bottom likely secondary to positioning in bed Denies any other significant symptoms Remains medically stable and awaiting placement Constipation Minimal abdominal discomfort Has been on Colace and will add MiraLAX Bowel has moved and will continue the current regimen on discharge Episodes of tachycardia up to 140 Blood pressure has been going up as well Metoprolol was on hold for hypotension previously Metoprolol was restarted since 08/21/2024 Acute kidney injury: Creatinine of 2.29 at admission, baseline creatinine of 0.5. Status post IV fluid and pressor support. Likely prerenal secondary to hypotension. CTAP reviewed. Creatinine Resolved Demand ischemia: Troponin minimally elevated, patient with no chest pain, EKG with no acute ST or T changes, continue telemetry monitoring. Likely secondary to acute illness. Echo with EF of 65 to 70%, left ventricular wall motion is normal, no regional wall motion abnormalities noted. Denies any cardiac symptoms Other chronic medical conditions: Continue with/resume home meds as and when able. Paroxysmal A-fib: Continue home Eliquis, metoprolol on hold due to hypotension. Heart rate in 90s. Her heart rate was noted to be high this morning at 1 30-1 40. Heart beta-iker is on hold due to hypotension-restarted subsequently Metoprolol succinate has been started with the previous dose Hypertension: Hold antihypertensive for now, now that blood pressure slowly holding up, resume home blood pressure medications as able. Beta-iker has been restarted Hyperlipidemia: resume atorvastatin when able. History of DVT: continue with Eliquis. GERD: Continue with famotidine DVT prophylaxis: Eliquis CODE STATUS: DNR/DNI PCP: Lakhwinder Dispo: PT/OT, CM to assist with DC planning. Patient's son Gerald was given a phone call 08/15, updated, answered all his question, he voiced understanding about the plan of care. Discussed with the patient son in detail and answered all of his question Admission and Anticipated Discharge Date Admission Date: August 14, 2024 Subjective 08/18/2024 The patient was seen and examined in telemetry unit She has been feeling much better and denies any significant symptoms except minimal back pain Denies any other symptoms 08/19/2024 The patient was seen and examined in telemetry unit She has not had a bowel movement and complains some abdominal discomfort without pain, nausea and or vomiting Denies any fever and or chills but does have occasional sweating 08/20/2024 The patient was seen and examined in telemetry unit She has been feeling much better today and her abdominal and back pain is controlled Denies any fever or chills Likely discharge tomorrow 08/21/2024 The patient was seen and examined in telemetry unit She was noted to have high heart rate following sitting at the edge of the bed from lying [place] dizzy subsequently the condition resolved She denies any other significant symptoms Heart beta-iker is on hold due to hypotension and that has been restarted 08/22/2024 The patient was seen and examined in telemetry unit She has been stable and awaiting placement for rehab physical therapy Denies any significant symptoms Her heart rate is controlled with current medications and the blood pressure is stable Review of Systems Review of Systems: All systems reviewed and are unremarkable except as noted below Physical Exam Physical Exam: Lying in bed without any acute distress Constitutional: well developed, well nourished, + ill appearing and + obese Eyes: PERRL, conjunctivae normal, anicteric sclerae ENMT: external ear and nose normal, oropharynx normal Neck: trachea midline, no thyromegaly Respiratory: no respiratory distress Auscultation: lungs clear to auscultation bilaterally Cardiovascular: Rate/Rhythm: regular rate and regular rhythm; not tachycardic Heart Sounds: normal S1 and normal S2; no murmur Extremities: no edema Gastrointestinal (Abdomen): Inspection/Auscultation: normal bowel sounds; abdomen not distended Percussion/Palpation: abdomen soft; abdomen nontender Neurologic: normal touch/pain/proprioception and moves all extremities; no focal motor deficits Lymphatic: no cervical or axillary lymphadenopathy Results & Data Results & Data Vital Signs (Past 12 Hours) Vital Signs Temp Pulse Pulse Resp BP BP Pulse Ox 08/22/24 11:00 36.6 C 68 19 124/69 93 08/22/24 08:00 77 08/22/24 07:00 36.5 C 66 18 150/77 H 95 08/22/24 03:30 36.5 C 78 17 128/73 94 O2 Del Method 08/22/24 11:00 Room Air 08/22/24 08:00 08/22/24 07:00 Room Air 08/22/24 03:30 Room Air Medications Administered Current Inpatient Medications Acetaminophen (Acetaminophen 325 Mg Tab) 650 mg PO Q4H PRN PRN Reason: Mild Pain or Fever Stop: 09/13/24 21:53 Last Admin: 08/21/24 20:39 Dose: 650 mg Al Hydrox/Mg Hydrox/Simethicone (Aluminum/Magnesium Susp 30 Ml Udc) 15 ml PO Q4H PRN PRN Reason: Dyspepsia Stop: 09/13/24 21:53 Apixaban (Apixaban 5 Mg Tablet) 5 mg PO AMHS [facility] Stop: 09/13/24 21:59 Last Admin: 08/22/24 08:08 Dose: 5 mg Dextrose (Dextrose 50% 50 Ml Syringe) 25 - 50 ml IV UD PRN; Protocol PRN Reason: Hypoglycemia Protocol Stop: 09/13/24 21:53 Docusate Sodium (Docusate Sodium 100 Mg Cap) 200 mg PO HS [facility] Stop: 09/13/24 21:59 Last Admin: 08/21/24 20:40 Dose: 200 mg Glucagon (Glucagon For Inj 1 Mg Vial) 1 mg SQ UD PRN; Protocol PRN Reason: Hypoglycemia Protocol Stop: 09/13/24 21:53 Glucose (Glucose 40% Gel 15 Gm Tube) 15 - 30 gm PO UD PRN; Protocol PRN Reason: Hypoglycemia Protocol Stop: 09/13/24 21:53 Glucose (Glucose 10 Tab/Tube) 4 - 8 tab PO UD PRN; Protocol PRN Reason: Hypoglycemia Protocol Stop: 09/13/24 21:53 Ceftriaxone Sodium (Rocephin) 2,000 mg in 50 mls @ 100 mls/hr IV Q24H [facility] Stop: 08/29/24 13:59 Last Admin: 08/22/24 14:01 Dose: 100 mls/hr Metoprolol Succinate (Metoprolol Succ 50mg Ext Rel Tab) 50 mg PO BID [facility] Stop: 09/20/24 09:59 Last Admin: 08/22/24 08:09 Dose: 50 mg Mirtazapine (Mirtazapine Tab 15 Mg Tab) 15 mg PO HS [facility] Stop: 09/13/24 21:59 Last Admin: 08/21/24 20:32 Dose: 15 mg Miscellaneous (Carbohydrates For Hypoglycemia ) 15 - 30 gm PO UD PRN PRN Reason: Hypoglycemia Protocol Stop: 09/13/24 21:53 Montelukast Sodium (Montelukast Sodium 10 Mg Tablet) 10 mg PO QAM [facility] Stop: 09/14/24 08:59 Last Admin: 08/22/24 08:09 Dose: 10 mg Ondansetron HCl (Ondansetron Inj 2 Mg/Ml 2 Ml Vial) 4 mg IV Q6H PRN PRN Reason: Nausea Stop: 09/13/24 21:53 Oxybutynin Chloride (Oxybutynin Chloride 5 Mg Tab) 5 mg PO Q8H PRN PRN Reason: bladder spasms Stop: 09/13/24 21:53 Pantoprazole Sodium (Pantoprazole 40 Mg Tab) 40 mg PO BID [facility]; Protocol Stop: 09/13/24 21:59 Last Admin: 08/22/24 08:08 Dose: 40 mg Petrolatum (Butt Paste (Zinc Oxide 16%) 171 Appln/57 Gm Jar) 1 appln TOP BID [facility] Stop: 09/13/24 21:53 Last Admin: 08/22/24 08:09 Dose: 1 appln Polyethylene Glycol (Polyethylene (Miralax) 17 Gm Pack) 17 gm PO DAILY [facility] Stop: 09/18/24 13:44 Last Admin: 08/22/24 08:09 Dose: Not Given Saccharomyces Boulardii (Saccharomyces Boulardii 250 Mg Cap) 250 mg PO QAM [facility] Stop: 09/14/24 08:59 Last Admin: 08/22/24 08:08 Dose: 250 mg Sucralfate (Sucralfate 1 Gm Tab) 1 gm PO ACHS [facility] Stop: 09/13/24 21:53 Last Admin: 08/22/24 11:38 Dose: 1 gm Tramadol HCl (Tramadol Hcl 50 Mg Tablet) 50 mg PO Q12H PRN PRN Reason: Moderate-Severe pain Stop: 09/13/24 21:53 Last Admin: 08/22/24 00:23 Dose: 50 mg (9) Atrial fibrillation Atrial fibrillation type: unspecified Qualified Code(s): I48.91 - Unspecified atrial fibrillation
[2024-08-23 07:54] LABS: Basophils # (auto) 0.02 K/uL (0.00-0.20); Basophils % (auto) 0.3 %; Eosinophils # (auto) 0.23 K/uL (0.00-0.50); Eosinophils % (auto) 3.4 %; Hematocrit (blood only) 34.5 % (37.0-47.0); Hemoglobin 10.8 g/dl (12.0-16.0); Immature Granulocytes # (auto) 0.23 K/uL (0.01-0.20); Immature Granulocytes % (auto) 3.4 %; Lymphocytes # (auto) 1.88 K/uL (1.20-3.40); Mean Corpuscular Hemoglobin 28.2 pg (25.0-34.0); Mean Corpuscular Hgb Conc 31.3 g/dL (32.0-36.0); Mean Corpuscular Volume 90.1 fL (80.0-100.0); Mean Platelet Volume 9.3 fL (9.4-12.4); Monocytes # (auto) 0.45 K/uL (0.11-0.59); Monocytes % (auto) 6.7 %; Neutrophils % (auto) 58.2 %; Platelet Count 241 K/uL (130-400); RDW Coefficient of Variation 15.9 % (11.5-14.5); RDW Standard Deviation 52.5 fL (36.4-46.3); Red Blood Count 3.83 M/uL (4.20-5.40); White Blood Count 6.71 K/ul (4.8-10.8)
[2024-08-23 08:03] LABS: BUN Creatinine Ratio 21.7 (10-20); Calcium 8.1 mg/dl (8.6-10.3); Creatinine Clr Calc Pharmacy 110.4 ml/min
[2024-08-23] MEDS: cefTRIAXone SODIUM 2,000 MG/50 ML BAG IV SCH (13:32)
--- NOTE | 2024-08-23 16:10 | Hospitalist Progress Note ---
Date of Service August 23, 2024 Assessment & Plan (1) Severe sepsis with acute organ dysfunction due to Gram negative bacteria: (2) Acute renal failure superimposed on chronic kidney disease: (3) Demand ischemia of myocardium: (4) Complicated urinary tract infection: (5) Acute metabolic encephalopathy: (6) Infection associated with indwelling ureteral stent: (7) Chronic indwelling Osorio catheter: (8) Morbid obesity: (9) Atrial fibrillation: (10) Pulmonary hypertension: Plan 78-year-old female resident of [facility] with PMH of A-fib on Eliquis, HTN, HLD, PE/DVT, asthma, T2DM, chronic anemia, chronic lymphedema, recurrent UTIs, ureteral stents for hydronephrosis presented with complaint of weakness, altered mental status and lethargy. Apparently she had outpatient urine culture done on 08/04/2024 which has subsequently grown E. coli but patient was not on any antibiotic for this infection. At presentation, she was noted to have acute kidney injury and hypotension requiring pressor support. She was admitted in ICU. She is being managed for the following: Catheter associated UTI Indwelling left ureteral stent- appreciate urology evaluation and recommendation to continue to follow-up as an outpatient. Sepsis with shock: At admission WBC elevated, pulse rate elevated, blood pressure did not improve with fluid resuscitation needing pressor support and ICU admission. Metabolic encephalopathy: Secondary to above. Improved Gram-negative bacteremia, secondary to UTI Patient presented with weakness, altered mental status, lethargy. Noted to have positive urine culture 08/04/2024, not on outpatient antibiotic. CT head with no acute finding. CTAP with left ureteral stent in appropriate position, mild bilateral hydronephrosis/nonobstructing ureteral calculi, exophytic left renal cyst stable . Osorio was exchanged in the ED, loraine pus was noted draining from Osorio catheter after exchange. 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 Blood and urine cultures resulted, ID evaluated, Rocephin daily until 08/29/2024. Remains medically stable and awaiting placement Constipation: Continue with bowel regimen, moving bowels okay for now. Episodes of tachycardia up to 140 Blood pressure has been going up as well Metoprolol was on hold for hypotension previously Metoprolol was restarted since 08/21/2024 Acute kidney injury: Creatinine of 2.29 at admission, baseline creatinine of 0.5. Status post IV fluid and pressor support. Likely prerenal secondary to hypotension. CTAP reviewed. Creatinine Resolved Demand ischemia: Troponin minimally elevated, patient with no chest pain, EKG with no acute ST or T changes, continue telemetry monitoring. Likely secondary to acute illness. Echo with EF of 65 to 70%, left ventricular wall motion is normal, no regional wall motion abnormalities noted. Denies any cardiac symptoms Other chronic medical conditions: Continue with/resume home meds as and when able. Paroxysmal A-fib: Continue home Eliquis, Metoprolol [on hold due to hypotension] resumed 08/21/2024 due to tachycardia. Hypertension: c/w home blood pressure medications as able. resume aldactone 08/23. Hyperlipidemia: resume atorvastatin when able. History of DVT: continue with Eliquis. GERD: Continue with famotidine DVT prophylaxis: Eliquis CODE STATUS: DNR/DNI PCP: Lakhwinder Dispo: PT/OT, CM to assist with DC planning. Awaiting placement. to med/surg till then. P2P was done 08/23, approximately 25 minutes were used during the process, with more than 20 minutes over the phone itself. acute rehab was declined, they asked for updated PT/OT eval and stated they might consider SNF but cannot guarantee it. Answered all of insurance MD's question, he stated that according to their criteria patient does not meet acute rehab criteria. I stated that given patient's complex medical condition, she might benefit from daily MD supervision while her home cardiac/BP meds are being resumed and she can benefit from pt/ot there. I emphasized any lower level of care would place her at high risk of rehospitalization and not allow her to meet her goals of returning to her assisted living. Admission and Anticipated Discharge Date Admission Date: August 14, 2024 Subjective Patient was seen and examined at bedside. Patient was lying in bed, on room air, NAD, resting comfortably. Patient reports eating okay and moving bowels okay, denies pain, denies any new acute event overnight. Patient is awaiting placement. Physical Exam Physical Exam: Constitutional: Alert, appears frail/weak. HEENT: Mucous membranes moist, sclera clear Neck: Soft, no adenopathy Lungs: Decreased breath sounds, no wheezes CV: S1-S2, regular, tachycardic Abdomen: Soft, non tender. Extremities: No significant edema Musculoskeletal: No significant joint tenderness Neuro: No focal deficits, global weakness Psych: Cooperative, normal mood UC in situ w/ light urine in the bag. Results & Data Results & Data Vital Signs (Past 12 Hours) Vital Signs Temp Pulse Pulse Resp BP Pulse Ox O2 Del Method 08/23/24 13:00 75 08/23/24 11:00 37.1 C 75 19 131/82 94 Room Air 08/23/24 07:00 37.0 C 80 18 146/64 H 95 Room Air 08/23/24 06:10 69 (9) Atrial fibrillation Atrial fibrillation type: unspecified Qualified Code(s): I48.91 - Unspecified atrial fibrillation
[2024-08-23] MEDS: oxyBUTYnin chloride 5 MG TAB PO PRN (17:06)
[2024-08-23] MEDS: TAMSULOSIN HCL 0.4 MG CAP PO SCH (20:42)
[2024-08-23] MEDS: ATORVASTATIN 40 MG TAB PO SCH (20:42)
[2024-08-24 07:41] LABS: Hematocrit (blood only) 30.9 % (37.0-47.0); Hemoglobin 9.5 g/dl (12.0-16.0); Mean Corpuscular Hemoglobin 27.9 pg (25.0-34.0); Mean Corpuscular Hgb Conc 30.7 g/dL (32.0-36.0); Mean Corpuscular Volume 90.9 fL (80.0-100.0); Mean Platelet Volume 9.5 fL (9.4-12.4); Platelet Count 257 K/uL (130-400); RDW Coefficient of Variation 15.9 % (11.5-14.5); RDW Standard Deviation 52.2 fL (36.4-46.3); White Blood Count 6.88 K/ul (4.8-10.8)
[2024-08-24 08:08] LABS: Calcium 8.1 mg/dl (8.6-10.3); Magnesium 1.7 mg/dl (1.7-2.4); Potassium 3.8 mmol/L (3.5-5.1)
[2024-08-24 08:14] LABS: BUN Creatinine Ratio 20.4 (10-20); Creatinine Clr Calc Pharmacy 103.4 ml/min; Phosphorus 3.3 mg/dl (2.5-4.9)
[2024-08-24] MEDS: SPIRONOLACTONE 25 MG TAB PO SCH (09:37)
--- NOTE | 2024-08-24 13:49 | Hospitalist Progress Note ---
Date of Service August 24, 2024 Assessment & Plan (1) Severe sepsis with acute organ dysfunction due to Gram negative bacteria: (2) Acute renal failure superimposed on chronic kidney disease: (3) Demand ischemia of myocardium: (4) Complicated urinary tract infection: (5) Acute metabolic encephalopathy: (6) Infection associated with indwelling ureteral stent: (7) Chronic indwelling Osorio catheter: (8) Morbid obesity: (9) Atrial fibrillation: (10) Pulmonary hypertension: Plan 78-year-old female resident of [facility] with PMH of A-fib on Eliquis, HTN, HLD, PE/DVT, asthma, T2DM, chronic anemia, chronic lymphedema, recurrent UTIs, ureteral stents for hydronephrosis presented with complaint of weakness, altered mental status and lethargy. Apparently she had outpatient urine culture done on 08/04/2024 which has subsequently grown E. coli but patient was not on any antibiotic for this infection. At presentation, she was noted to have acute kidney injury and hypotension requiring pressor support. She was admitted in ICU. She is being managed for the following: Catheter associated UTI Indwelling left ureteral stent- appreciate urology evaluation and recommendation to continue to follow-up as an outpatient. Sepsis with shock: At admission WBC elevated, pulse rate elevated, blood pressure did not improve with fluid resuscitation needing pressor support and ICU admission. Metabolic encephalopathy: Secondary to above. Improved Gram-negative bacteremia, secondary to UTI Patient presented with weakness, altered mental status, lethargy. Noted to have positive urine culture 08/04/2024, not on outpatient antibiotic. CT head with no acute finding. CTAP with left ureteral stent in appropriate position, mild bilateral hydronephrosis/nonobstructing ureteral calculi, exophytic left renal cyst stable . Osorio was exchanged in the ED, loraine pus was noted draining from Osorio catheter after exchange. 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 Blood and urine cultures resulted, ID evaluated, Rocephin daily until 08/29/2024. Remains medically stable and awaiting placement Constipation: Continue with bowel regimen, moving bowels okay for now. Acute kidney injury: Creatinine of 2.29 at admission, baseline creatinine of 0.5. Status post IV fluid and pressor support. Likely prerenal secondary to hypotension. CTAP reviewed. Creatinine Resolved Demand ischemia: Troponin minimally elevated, patient with no chest pain, EKG with no acute ST or T changes, continue telemetry monitoring. Likely secondary to acute illness. Echo with EF of 65 to 70%, left ventricular wall motion is normal, no regional wall motion abnormalities noted. Denies any cardiac symptoms Other chronic medical conditions: Continue with/resume home meds as and when able. Paroxysmal A-fib: Continue home Eliquis, Metoprolol [on hold due to hypotension] resumed 08/21/2024 due to tachycardia. Hypertension: c/w home blood pressure medications as able. resume aldactone 08/23. Hyperlipidemia: resume atorvastatin when able. History of DVT: continue with Eliquis. GERD: Continue with famotidine DVT prophylaxis: Eliquis CODE STATUS: DNR/DNI PCP: Lakhwinder Dispo: PT/OT, CM to assist with DC planning. Awaiting placement. to med/surg till then. P2P was done 08/23, declined rehab. Admission and Anticipated Discharge Date Admission Date: August 14, 2024 Subjective Patient was seen and examined at bedside. Patient was lying in bed, on room air, NAD, resting comfortably. Patient reports eating okay and moving bowels okay, denies pain, denies any new acute event overnight. Patient is awaiting placement. Physical Exam Physical Exam: Constitutional: Alert, appears frail/weak. HEENT: Mucous membranes moist, sclera clear Neck: Soft, no adenopathy Lungs: Decreased breath sounds, no wheezes CV: S1-S2, regular, tachycardic Abdomen: Soft, non tender. Extremities: No significant edema Musculoskeletal: No significant joint tenderness Neuro: No focal deficits, global weakness Psych: Cooperative, normal mood UC in situ w/ light urine in the bag. Results & Data Results & Data Vital Signs (Past 12 Hours) Vital Signs Temp Pulse Resp BP BP Pulse Ox O2 Del Method 08/24/24 11:08 36.8 C 58 L 17 117/78 96 Room Air 08/24/24 07:41 36.8 C 76 18 121/67 96 Room Air 08/24/24 02:55 36.5 C 79 20 102/63 96 Room Air (9) Atrial fibrillation Atrial fibrillation type: unspecified Qualified Code(s): I48.91 - Unspecified atrial fibrillation
[2024-08-24] MEDS: ALUMINUM/MAGNESIUM SUSP 30 ML UDC PO PRN (14:02)
[2024-08-25 06:57] LABS: BUN Creatinine Ratio 19.2 (10-20); Calcium 8.2 mg/dl (8.6-10.3); Creatinine Clr Calc Pharmacy 97.5 ml/min; Potassium 3.9 mmol/L (3.5-5.1)
--- NOTE | 2024-08-25 13:50 | Hospitalist Progress Note ---
Date of Service August 25, 2024 Assessment & Plan (1) Severe sepsis with acute organ dysfunction due to Gram negative bacteria: (2) Acute renal failure superimposed on chronic kidney disease: (3) Demand ischemia of myocardium: (4) Complicated urinary tract infection: (5) Acute metabolic encephalopathy: (6) Infection associated with indwelling ureteral stent: (7) Chronic indwelling Osorio catheter: (8) Morbid obesity: (9) Atrial fibrillation: (10) Pulmonary hypertension: Plan 78-year-old female resident of [facility] with PMH of A-fib on Eliquis, HTN, HLD, PE/DVT, asthma, T2DM, chronic anemia, chronic lymphedema, recurrent UTIs, ureteral stents for hydronephrosis presented with complaint of weakness, altered mental status and lethargy. Apparently she had outpatient urine culture done on 08/04/2024 which has subsequently grown E. coli but patient was not on any antibiotic for this infection. At presentation, she was noted to have acute kidney injury and hypotension requiring pressor support. She was admitted in ICU. She is being managed for the following: Catheter associated UTI Indwelling left ureteral stent- appreciate urology evaluation and recommendation to continue to follow-up as an outpatient. Sepsis with shock: At admission WBC elevated, pulse rate elevated, blood pressure did not improve with fluid resuscitation needing pressor support and ICU admission. Metabolic encephalopathy: Secondary to above. Improved Gram-negative bacteremia, secondary to UTI Patient presented with weakness, altered mental status, lethargy. Noted to have positive urine culture 08/04/2024, not on outpatient antibiotic. CT head with no acute finding. CTAP with left ureteral stent in appropriate position, mild bilateral hydronephrosis/nonobstructing ureteral calculi, exophytic left renal cyst stable . Osorio was exchanged in the ED, loraine pus was noted draining from Osorio catheter after exchange. Urinary catheter with technology applications engineer urine noted at bedside. Blood and urine cultures resulted, ID evaluated, Rocephin daily until 08/29/2024. Remains medically stable and awaiting placement Constipation: Continue with bowel regimen, moving bowels okay for now. Acute kidney injury: Creatinine of 2.29 at admission, baseline creatinine of 0.5. Status post IV fluid and pressor support. Likely prerenal secondary to hypotension. CTAP reviewed. Creatinine Resolved Demand ischemia: Troponin minimally elevated, patient with no chest pain, EKG with no acute ST or T changes, continue telemetry monitoring. Likely secondary to acute illness. Echo with EF of 65 to 70%, left ventricular wall motion is normal, no regional wall motion abnormalities noted. Denies any cardiac symptoms Other chronic medical conditions: Continue with/resume home meds as and when able. Paroxysmal A-fib: Continue home Eliquis, Metoprolol [on hold due to hypotension] resumed 08/21/2024 due to tachycardia. Hypertension: c/w home blood pressure medications as able. resume aldactone 08/23. Hyperlipidemia: resume atorvastatin when able. History of DVT: continue with Eliquis. GERD: Continue with famotidine DVT prophylaxis: Eliquis CODE STATUS: DNR/DNI PCP: Lakhwinder Dispo: PT/OT, CM to assist with DC planning. Awaiting placement. to med/surg till then. P2P was done 08/23, declined rehab. Admission and Anticipated Discharge Date Admission Date: August 14, 2024 Subjective Patient was seen and examined at bedside. Patient was lying in bed, on room air, NAD, resting comfortably. Patient reports eating okay and moving bowels okay, denies pain, denies any new acute event overnight. Patient is awaiting placement. Physical Exam Physical Exam: Constitutional: Alert, appears frail/weak. HEENT: Mucous membranes moist, sclera clear Neck: Soft, no adenopathy Lungs: Decreased breath sounds, no wheezes CV: S1-S2, regular Abdomen: Soft, non tender. Extremities: No significant edema Musculoskeletal: No significant joint tenderness Neuro: No focal deficits, global weakness Psych: Cooperative, normal mood UC in situ w/ light urine in the bag. Results & Data Results & Data Vital Signs (Past 12 Hours) Vital Signs Temp Pulse Resp BP BP Pulse Ox O2 Del Method 08/25/24 08:15 70 14 104/63 96 Room Air 08/25/24 07:43 36.6 C 59 L 16 124/80 95 Room Air (9) Atrial fibrillation Atrial fibrillation type: unspecified Qualified Code(s): I48.91 - Unspecified atrial fibrillation
[2024-08-25] MEDS: SUCRALFATE 1 GM/10 ML UDC PO SCH (20:20)
--- NOTE | 2024-08-26 14:31 | Hospitalist Progress Note ---
Date of Service August 26, 2024 Assessment & Plan (1) Severe sepsis with acute organ dysfunction due to Gram negative bacteria: (2) Acute renal failure superimposed on chronic kidney disease: (3) Demand ischemia of myocardium: (4) Complicated urinary tract infection: (5) Acute metabolic encephalopathy: (6) Infection associated with indwelling ureteral stent: (7) Chronic indwelling Osorio catheter: (8) Morbid obesity: (9) Atrial fibrillation: (10) Pulmonary hypertension: Plan 78-year-old female resident of [facility] with PMH of A-fib on Eliquis, HTN, HLD, PE/DVT, asthma, T2DM, chronic anemia, chronic lymphedema, recurrent UTIs, ureteral stents for hydronephrosis presented with complaint of weakness, altered mental status and lethargy. Apparently she had outpatient urine culture done on 08/04/2024 which has subsequently grown E. coli but patient was not on any antibiotic for this infection. At presentation, she was noted to have acute kidney injury and hypotension requiring pressor support. She was admitted in ICU. She is being managed for the following: Catheter associated UTI Indwelling left ureteral stent- appreciate urology evaluation and recommendation to continue to follow-up as an outpatient. Sepsis with shock: At admission WBC elevated, pulse rate elevated, blood pressure did not improve with fluid resuscitation needing pressor support and ICU admission. Metabolic encephalopathy: Secondary to above. Improved Gram-negative bacteremia, secondary to UTI Patient presented with weakness, altered mental status, lethargy. Noted to have positive urine culture 08/04/2024, not on outpatient antibiotic. CT head with no acute finding. CTAP with left ureteral stent in appropriate position, mild bilateral hydronephrosis/nonobstructing ureteral calculi, exophytic left renal cyst stable . Osorio was exchanged in the ED, loraine pus was noted draining from Osorio catheter after exchange. Urinary catheter with building contractor urine noted at bedside. Blood and urine cultures resulted, ID evaluated, Rocephin daily until 08/29/2024. Remains medically stable and awaiting placement Constipation: Continue with bowel regimen, moving bowels okay for now. Acute kidney injury: Creatinine of 2.29 at admission, baseline creatinine of 0.5. Status post IV fluid and pressor support. Likely prerenal secondary to hypotension. CTAP reviewed. Creatinine Resolved Demand ischemia: Troponin minimally elevated, patient with no chest pain, EKG with no acute ST or T changes, continue telemetry monitoring. Likely secondary to acute illness. Echo with EF of 65 to 70%, left ventricular wall motion is normal, no regional wall motion abnormalities noted. Denies any cardiac symptoms Other chronic medical conditions: Continue with/resume home meds as and when able. Paroxysmal A-fib: Continue home Eliquis, Metoprolol [on hold due to hypotension] resumed 08/21/2024 due to tachycardia. Hypertension: c/w home blood pressure medications as able. resume aldactone 08/23. Hyperlipidemia: resume atorvastatin when able. History of DVT: continue with Eliquis. GERD: Continue with famotidine DVT prophylaxis: Eliquis CODE STATUS: DNR/DNI PCP: Lakhwinder Dispo: PT/OT, CM to assist with DC planning. Awaiting placement. to med/surg till then. P2P was done 08/23, declined rehab. Admission and Anticipated Discharge Date Admission Date: August 14, 2024 Subjective Patient was seen and examined at bedside. Patient was lying in bed, on room air, NAD, resting comfortably. Patient reports eating okay and moving bowels okay, denies pain, denies any new acute event overnight. Patient is awaiting placement. Pt would like to be put on regualr diet doesn't want HH diet. Physical Exam Physical Exam: Constitutional: Alert, appears frail/weak. HEENT: Mucous membranes moist, sclera clear Neck: Soft, no adenopathy Lungs: Decreased breath sounds, no wheezes CV: S1-S2, regular Abdomen: Soft, non tender. Extremities: No significant edema Musculoskeletal: No significant joint tenderness Neuro: No focal deficits, global weakness Psych: Cooperative, normal mood UC in situ w/ light urine in the bag. Results & Data Results & Data Vital Signs (Past 12 Hours) Vital Signs Temp Pulse Resp BP Pulse Ox O2 Del Method 08/26/24 14:27 36.6 C 75 17 100/49 L 93 Room Air 08/26/24 09:00 Room Air 08/26/24 06:58 36.7 C 73 16 132/51 L 97 Room Air (9) Atrial fibrillation Atrial fibrillation type: unspecified Qualified Code(s): I48.91 - Unspecified atrial fibrillation
--- NOTE | 2024-08-27 11:26 | Hospitalist Progress Note ---
Date of Service August 27, 2024 Assessment & Plan (1) Severe sepsis with acute organ dysfunction due to Gram negative bacteria: (2) Acute renal failure superimposed on chronic kidney disease: (3) Demand ischemia of myocardium: (4) Complicated urinary tract infection: (5) Acute metabolic encephalopathy: (6) Infection associated with indwelling ureteral stent: (7) Chronic indwelling Osorio catheter: (8) Morbid obesity: (9) Atrial fibrillation: (10) Pulmonary hypertension: Plan 78-year-old female resident of [facility] with PMH of A-fib on Eliquis, HTN, HLD, PE/DVT, asthma, T2DM, chronic anemia, chronic lymphedema, recurrent UTIs, ureteral stents for hydronephrosis presented with complaint of weakness, altered mental status and lethargy. Apparently she had outpatient urine culture done on 08/04/2024 which has subsequently grown E. coli but patient was not on any antibiotic for this infection. At presentation, she was noted to have acute kidney injury and hypotension requiring pressor support. She was admitted in ICU. She is being managed for the following: Catheter associated UTI Indwelling left ureteral stent- appreciate urology evaluation and recommendation to continue to follow-up as an outpatient. Sepsis with shock: At admission WBC elevated, pulse rate elevated, blood pressure did not improve with fluid resuscitation needing pressor support and ICU admission. Metabolic encephalopathy: Secondary to above. Improved Gram-negative bacteremia, secondary to UTI Patient presented with weakness, altered mental status, lethargy. Noted to have positive urine culture 08/04/2024, not on outpatient antibiotic. CT head with no acute finding. CTAP with left ureteral stent in appropriate position, mild bilateral hydronephrosis/nonobstructing ureteral calculi, exophytic left renal cyst stable . Osorio was exchanged in the ED, loraine pus was noted draining from Osorio catheter after exchange. Urinary catheter with commercial management accountant urine noted at bedside. Blood and urine cultures resulted, ID evaluated, Rocephin daily until 08/29/2024. Remains medically stable and awaiting placement Constipation: Continue with bowel regimen, moving bowels okay for now. Acute kidney injury: Creatinine of 2.29 at admission, baseline creatinine of 0.5. Status post IV fluid and pressor support. Likely prerenal secondary to hypotension. CTAP reviewed. Creatinine Resolved Demand ischemia: Troponin minimally elevated, patient with no chest pain, EKG with no acute ST or T changes, continue telemetry monitoring. Likely secondary to acute illness. Echo with EF of 65 to 70%, left ventricular wall motion is normal, no regional wall motion abnormalities noted. Denies any cardiac symptoms Other chronic medical conditions: Continue with/resume home meds as and when able. Paroxysmal A-fib: Continue home Eliquis, Metoprolol [on hold due to hypotension] resumed 08/21/2024 due to tachycardia. Hypertension: c/w home blood pressure medications as able. resume aldactone 08/23. Hyperlipidemia: resume atorvastatin when able. History of DVT: continue with Eliquis. GERD: Continue with famotidine DVT prophylaxis: Eliquis CODE STATUS: DNR/DNI PCP: Lakhwinder Dispo: PT/OT, CM to assist with DC planning. Awaiting placement. to med/surg till then. P2P was done 08/23, declined rehab. Admission and Anticipated Discharge Date Admission Date: August 14, 2024 Subjective Patient was seen and examined at bedside. Patient was lying in bed, on room air, NAD, resting comfortably. Patient reports eating okay and moving bowels okay, denies pain, denies any new acute event overnight. Patient is awaiting placement. Physical Exam Physical Exam: Constitutional: Alert, appears frail/weak. HEENT: Mucous membranes moist, sclera clear Neck: Soft, no adenopathy Lungs: Decreased breath sounds, no wheezes CV: S1-S2, regular Abdomen: Soft, non tender. Extremities: No significant edema Musculoskeletal: No significant joint tenderness Neuro: No focal deficits, global weakness Psych: Cooperative, normal mood UC in situ w/ light urine in the bag. Results & Data Results & Data Vital Signs (Past 12 Hours) Vital Signs Temp Pulse Resp BP Pulse Ox O2 Del Method 08/27/24 07:58 36.6 C 75 16 119/70 95 Room Air 08/27/24 07:11 Room Air (9) Atrial fibrillation Atrial fibrillation type: unspecified Qualified Code(s): I48.91 - Unspecified atrial fibrillation
--- NOTE | 2024-08-28 12:00 | Hospitalist Progress Note ---
Date of Service August 28, 2024 Assessment & Plan (1) Severe sepsis with acute organ dysfunction due to Gram negative bacteria: (2) Acute renal failure superimposed on chronic kidney disease: (3) Demand ischemia of myocardium: (4) Complicated urinary tract infection: (5) Acute metabolic encephalopathy: (6) Infection associated with indwelling ureteral stent: (7) Chronic indwelling Osorio catheter: (8) Morbid obesity: (9) Atrial fibrillation: (10) Pulmonary hypertension: Plan 78-year-old female resident of [facility] with PMH of A-fib on Eliquis, HTN, HLD, PE/DVT, asthma, T2DM, chronic anemia, chronic lymphedema, recurrent UTIs, ureteral stents for hydronephrosis presented with complaint of weakness, altered mental status and lethargy. Apparently she had outpatient urine culture done on 08/04/2024 which has subsequently grown E. coli but patient was not on any antibiotic for this infection. At presentation, she was noted to have acute kidney injury and hypotension requiring pressor support. She was admitted in ICU. She is being managed for the following: Catheter associated UTI Indwelling left ureteral stent- appreciate urology evaluation and recommendation to continue to follow-up as an outpatient. Sepsis with shock: At admission WBC elevated, pulse rate elevated, blood pressure did not improve with fluid resuscitation needing pressor support and ICU admission. Metabolic encephalopathy: Secondary to above. Improved Gram-negative bacteremia, secondary to UTI Patient presented with weakness, altered mental status, lethargy. Noted to have positive urine culture 08/04/2024, not on outpatient antibiotic. CT head with no acute finding. CTAP with left ureteral stent in appropriate position, mild bilateral hydronephrosis/nonobstructing ureteral calculi, exophytic left renal cyst stable . Osorio was exchanged in the ED, loraine pus was noted draining from Osorio catheter after exchange. Urinary catheter with heel varnisher urine noted at bedside. Blood and urine cultures resulted, ID evaluated, Rocephin daily until 08/29/2024. Remains medically stable and awaiting placement/atb completion Constipation: Continue with bowel regimen, moving bowels okay for now. Acute kidney injury: Creatinine of 2.29 at admission, baseline creatinine of 0.5. Status post IV fluid and pressor support. Likely prerenal secondary to hypotension. CTAP reviewed. Creatinine Resolved Demand ischemia: Troponin minimally elevated, patient with no chest pain, EKG with no acute ST or T changes, continue telemetry monitoring. Likely secondary to acute illness. Echo with EF of 65 to 70%, left ventricular wall motion is normal, no regional wall motion abnormalities noted. Denies any cardiac symptoms Other chronic medical conditions: Continue with/resume home meds as and when able. Paroxysmal A-fib: Continue home Eliquis, Metoprolol [on hold due to hypotension] resumed 08/21/2024 due to tachycardia. Hypertension: c/w home blood pressure medications as able. resume aldactone 08/23. Hyperlipidemia: resume atorvastatin when able. History of DVT: continue with Eliquis. GERD: Continue with famotidine DVT prophylaxis: Eliquis CODE STATUS: DNR/DNI PCP: Lakhwinder Dispo: PT/OT, CM to assist with DC planning. Awaiting placement/atb completion and [facility] w/ HH. to med/surg till then. P2P was done 08/23, declined rehab. Admission and Anticipated Discharge Date Admission Date: August 14, 2024 Subjective Patient was seen and examined at bedside. Patient was lying in bed, on room air, NAD, resting comfortably. Patient reports eating okay and moving bowels okay, denies pain, denies any new acute event overnight. Patient likely w/ go back to [facility] w/ hh after iv atb is done toy. Physical Exam Physical Exam: Constitutional: Alert, appears frail/weak. HEENT: Mucous membranes moist, sclera clear Neck: Soft, no adenopathy Lungs: Decreased breath sounds, no wheezes CV: S1-S2, regular Abdomen: Soft, non tender. Extremities: No significant edema Musculoskeletal: No significant joint tenderness Neuro: No focal deficits, global weakness Psych: Cooperative, normal mood UC in situ w/ light urine in the bag. Results & Data Results & Data Vital Signs (Past 12 Hours) Vital Signs Temp Pulse Resp BP Pulse Ox O2 Del Method 08/28/24 07:49 Room Air 08/28/24 06:03 36.4 C L 62 16 104/58 L 96 Room Air (9) Atrial fibrillation Atrial fibrillation type: unspecified Qualified Code(s): I48.91 - Unspecified atrial fibrillation
[2024-08-29 07:19] VITALS: BP 118/72; PULSE 62; RESP 18; TEMP 97.7; O2SAT 94
--- NOTE | 2024-08-29 10:50 | Discharge Summary ---
Date of Service August 29, 2024 Admission HPI Per Admitting Provider Patient is a 78-year-old female chronic indwelling Osorio catheter and ureteral stents for hydronephrosis. Had outpatient urine culture done on 08/04/2024 that has subsequently grown E. coli. Per reports the patient has not received any antibiotics yet for this a E. coli urinary tract infection. Came to the emergency room with weakness, altered mental status and lethargy. In the emergency room that had a elevated white count, elevated procalcitonin, acute kidney injury and hypotensive. Also in the Osorio was exchanged loraine pus came out of the bladder. She received some IV fluid hydration, antibiotics in ED and referred to our service for further evaluation. Time my evaluation patient continues to complain of severe weakness. Her blood pressure has improved slightly with just 500 cc bolus at the time of my evaluation. Additional 500 cc is going in now. Her mentation is a bit clear. She denies any fevers. No abdominal pain. Is able to answer questions appropriately. Admission Exam Per Admitting Provider Constitutional: Alert, ill in appearance, toxic in appearance HEENT: Mucous membranes dry sclera clear Neck: Soft, no adenopathy Lungs: Decreased breath sounds, no wheezes CV: S1-S2, regular, tachycardic Abdomen: Soft, mild suprapubic tenderness nondistended Extremities: No significant edema Musculoskeletal: No significant joint tenderness Neuro: No focal deficits, global weakness Psych: Cooperative, normal mood Principal Diagnosis Catheter associated UTI Indwelling left ureteral stent Sepsis with shock POA, resolved Metabolic encephalopathy POA, resolved Gram-negative bacteremia, completed atb therapy in hospital Constipation Acute kidney injury, resolved. Discharge Exam Constitutional: Alert, appears frail/weak. HEENT: Mucous membranes moist, sclera clear Neck: Soft, no adenopathy Lungs: Decreased breath sounds, no wheezes CV: S1-S2, regular Abdomen: Soft, non tender. Extremities: No significant edema Musculoskeletal: No significant joint tenderness Neuro: No focal deficits, global weakness Psych: Cooperative, normal mood UC in situ w/ light urine in the bag. Discharge Data Allergies Allergy/AdvReac Type Severity Reaction Status Date / Time doxycycline Allergy Intermediate Swelling Verified 08/14/24 15:45 tetracycline Allergy Mild Eye Verified 08/14/24 15:45 swelling NARINDER Inhibitors AdvReac Intermediate Cough Verified 08/14/24 15:45 codeine AdvReac Mild Powderly Verified 08/14/24 15:45 "crazy" Sulfa (Sulfonamide AdvReac Mild Gastrointestinal Verified 08/14/24 15:45 Antibiotics) Upset Consultations 08/14/24 18:36 ED Decision to Admit Stat 08/14/24 20:24 Consult Public Service Officer Routine 08/17/24 08:19 Consult Infectious Diseases Routine 08/17/24 12:29 Consult Urology Routine Ordered Studies 08/14/24 15:18 CT head/brain wo con Stat 08/14/24 16:02 CT abd pelvis wo con Stat Hospital Course (1) Severe sepsis with acute organ dysfunction due to Gram negative bacteria: (2) Acute renal failure superimposed on chronic kidney disease: (3) Demand ischemia of myocardium: (4) Complicated urinary tract infection: (5) Acute metabolic encephalopathy: (6) Infection associated with indwelling ureteral stent: (7) Chronic indwelling Osorio catheter: (8) Morbid obesity: (9) Atrial fibrillation: (10) Pulmonary hypertension: Plan 78-year-old female resident of [facility] with PMH of A-fib on Eliquis, HTN, HLD, PE/DVT, asthma, T2DM, chronic anemia, chronic lymphedema, recurrent UTIs, ureteral stents for hydronephrosis presented with complaint of weakness, altered mental status and lethargy. Apparently she had outpatient urine culture done on 08/04/2024 which has subsequently grown E. coli but patient was not on any antibiotic for this infection. At presentation, she was noted to have acute kidney injury and hypotension requiring pressor support. She was admitted in ICU. She was managed for the following: Catheter associated UTI Indwelling left ureteral stent- appreciate urology evaluation and recommendation to continue to follow-up as an outpatient. Sepsis with shock: At admission WBC elevated, pulse rate elevated, blood pressure did not improve with fluid resuscitation needing pressor support and ICU admission. Metabolic encephalopathy: Secondary to above. Improved Gram-negative bacteremia, secondary to UTI Patient presented with weakness, altered mental status, lethargy. Noted to have positive urine culture 08/04/2024, not on outpatient antibiotic. CT head with no acute finding. CTAP with left ureteral stent in appropriate position, mild bilateral hydronephrosis/nonobstructing ureteral calculi, exophytic left renal cyst stable . Osorio was exchanged in the ED, loraine pus was noted draining from Osorio catheter after exchange. Urinary catheter with institutional cook urine noted at bedside. Blood and urine cultures resulted, ID evaluated, Rocephin daily until 08/29/2024. Remains medically stable, was awaiting placement, since he completed her IV antibiotic will DC to her personal halfway with home health. Patient can resume her methenamine suppression therapy (for uti) since he completed active antibiotic management. Constipation: Continue with bowel regimen, moving bowels okay for now. Acute kidney injury: Creatinine of 2.29 at admission, baseline creatinine of 0.5. Status post IV fluid and pressor support. Likely prerenal secondary to hypotension. CTAP reviewed. Creatinine Resolved Demand ischemia: Troponin minimally elevated, patient with no chest pain, EKG with no acute ST or T changes, continue telemetry monitoring. Likely secondary to acute illness. Echo with EF of 65 to 70%, left ventricular wall motion is normal, no regional wall motion abnormalities noted. Denies any cardiac symptoms Other chronic medical conditions: Continue with/resume home meds as and when able. Paroxysmal A-fib: Continue home Eliquis, Metoprolol [on hold due to hypotension] resumed 08/21/2024 due to tachycardia. Hypertension: c/w home blood pressure medications as able. resume aldactone 08/23. Hyperlipidemia: resume atorvastatin when able. History of DVT: continue with Eliquis. GERD: Continue with famotidine DVT prophylaxis: Eliquis CODE STATUS: DNR/DNI PCP: Lakhwinder Dispo: PT/OT, CM to assist with DC planning. Awaiting placement/atb completion and [facility] w/ HH. to med/surg till then. Patient is being discharged to [facility] with home health with following instruction at the point of discharge: Follow-up with your primary care physician within a week time and likely you will need labs CBC/CMP/magnesium/phosphorus. You were treated for catheter associated urinary tract infection, sepsis, blood infection while in the hospital. You completed the antibiotic course on 08/29/2024. Follow-up with your urology for ongoing management of your urinary tract probl ems. Take exfv-lzu-yotkton bowel regimens with a goal of 1-2 bowel movements a day. Take your medications as prescribed. Please make sure that you are able to get your medications today by calling your pharmacy before you leave the hospital so that your treatment continuity is not broken. Home Health Attestation I certify that this patient is under my care and that I, or a physicians diet assistant working with me, had a face to-face encounter that meets the home health sbkw-zu-wlnl encounter requirements with this patient. The encounter with the patient was in whole, or in part, for the following medical condition, which is the primary reason for home health care (list medical condition): Sepsis-Discharge on 08/29/24. I certify that, based on my findings, the following services are medically necessary home health services: My clinical findings support the need for the above services because: OT Assess ADL Status and Restore Function w ADLs PT Assessment for Endurance / Balance / Strength PT Eval for Safety and Mobility PT Eval for Safety, Gait Training, Assistive Devices PT Gait and Balance Training, Strengthening and Safety Skilled Nsg Assessment Further, I certify that my clinical findings support that this patient is homebound (i.e. absences from home require considerable and taxing effort and are for medical reasons or cheondoism services or infrequently or of short duration when for other reasons) because: Transportation Assistance/Unable to Leave Home Unassisted Certification for Home Health Services: Based on the above findings, I certify that this patient is confined to the home and needs intermittent nursing home care, physical therapy and/or speech therapy or continues to need occupational therapy. The patient is under my care, and I have initiated the establishment of the plan of care. This patient will be followed by a physician who will periodically review the plan of care. Total Time Total Time Spent Total Time Spent (In Minutes): 45 Discharge Plan Discharge Items Patient Disposition: Home - Home Health Services Reason For Visit: SEVERE SEPSIS Discharge Diagnosis: Catheter associated UTI Indwelling left ureteral stent Sepsis with shock POA, resolved Metabolic encephalopathy POA, resolved Gram-negative bacteremia, completed atb therapy in hospital Constipation Acute kidney injury, resolved. Activity: As commented below Activity Comment: c/w HH PT Non-emergency contact: Primary Care Provider Call non-emergency contact if: you have any medication questions Follow-up/Referrals: Pavan Mckeon MD [Primary Care Provider] - Diet: Regular Diet Texture: Easy to Chew Addtl Attending Provider Instructions: Follow-up with your primary care physician within a week time and likely you will need labs CBC/CMP/magnesium/phosphorus. You were treated for catheter associated urinary tract infection, sepsis, blood infection while in the hospital. You completed the antibiotic course on 08/29/2024. Follow-up with your urology for ongoing management of your urinary tract problems. Take gkna-wzu-ifzlmpz bowel regimens with a goal of 1-2 bowel movements a day. Take your medications as prescribed. Please make sure that you are able to get your medications today by calling your pharmacy before you leave the hospital so that your treatment continuity is not broken. Pending Studies at Discharge: No Stand-Alone Forms: My [facility], Smoking Cessation Medications and DC Order Prescriptions: Continued oxybutynin chloride 5 mg tablet 5 mg PO Q8H PRN (Reason: bladder spasms) Qty: 30 0RF atorvastatin 80 mg tablet 80 mg PO HS metoprolol succinate 50 mg tablet extended release 24 hr 50 mg PO [facility]HS acetaminophen [Tylenol Extra Strength] 500 mg Tablet 500 mg PO Q6H MDD 3gmAPAP/24hrs PRN (Reason: Fever Or Pain) spironolactone 25 mg tablet 25 mg PO QAM lansoprazole 30 mg capsule,delayed release(DR/EC) 30 mg PO BID Eliquis 5 mg tablet 5 mg PO AMHS sucralfate [Carafate] 1 gram Tablet 1 g PO ACHS docusate sodium [Colace] 100 mg Capsule 200 mg PO HS mirtazapine [Remeron] 15 mg Tablet 15 mg PO HS tamsulosin 0.4 mg Capsule 0.4 mg PO HS Qty: 30 0RF tramadol 50 mg Tablet 50 mg PO Q12H PRN (Reason: pain) Qty: 10 0RF methenamine hippurate 1 gram tablet 1 g PO BID Qty: 60 0RF montelukast 10 mg Tablet 10 mg PO QAM ferrous sulfate 325 mg (65 mg iron) Tablet,Delayed Release (Dr/Ec) 325 mg PO Q OTHER DAY Patient Comments: in am loperamide 2 mg Tablet 2 mg PO Q4H PRN (Reason: Diarrhea) Rx Instructions: administer after each loose stool until symptoms controlled; do not exceed 8 mg per 24 hrs ascorbic acid (vitamin C) [Vitamin C] 500 mg Tablet 500 mg PO BID polyethylene glycol 3350 17 gram/dose Powder 17 g PO DAILY PRN (Reason: Constipation) Mucinex Sinus-Max Sev Congestn 5-325-200 mg Tablet 2 tab PO Q12 PRN (Reason: Congestion) zinc oxide 20 % Ointment 1 applic TOPICAL BID cranberry extract [Cranberry Concentrate] 500 mg Capsule 500 mg PO QAM Rx Instructions: administer with meals Saccharomyces boulardii [Florastor] 250 mg Capsule 250 mg PO QAM diclofenac sodium [Voltaren Arthritis Pain] 1 % gel 2 g EXT QID Discharge Orders: Discharge Order (Routine); Ordered 08/29/24 Ordered By: Angelica Dyer Admission Data Admit Date/Time: 08/14/24 20:21 Attending Provider: Angelica Dyer Admit Provider: Dc Aguirre Primary Care Provider: Pavan Mckeon Other Providers: [facility]; Angelica Dyer; [facility]; Ernesto Solo [facility]; [place]; Dc Aguirre; Alex Wang; John Hernandez; Byron Lux; Luisito Gotti I.; Romaine Banda II; Pau Santiago; Mika Aguirre; Demetrio Connor; Ej Ramirez; Darinel Thorpe; [facility]
== END 2024-08-29 15:12 | disposition home health service (06) | DRG 698 ==
LOC: ED 15:09 → MERGE 15:09 → 1E 20:21 → SUATTDRO 20:21 → 1E 21:46 → 2S 08-16 16:26 → 3W 08-24 16:38

== ENCOUNTER 2024-10-22 13:41 | Observation (INO) ==
--- OUTSIDE RECORDS SUMMARY | 2024-10-22 13:47 | External Medical Summary | Summary of Care ---
Author Name Unknown Organization [facility] Address [address] [place] [id number] Phone [phone] Care Team Providers Care Coach Builder Name Role Phone Pavan Mckeon MD Primary Care Provider [phone]- [phone] Reason for Referral * Ancillary Services (Within 30 days (routine)) - Authorized Specialty Diagnoses / Procedures Referred By Contac t Referred To Contact Label Designer Diagnoses Type 2 diabetes mellitus with hemoglobin A1c goal of less than 8.0% ([facility]LY [facility]) Pavan Mckeon MD [address] [place] [id number] Phone: tel: fax: Referral ID Status Reason Start Date Expiration Date Visits Requested Visits Authorized [id number] Authorized Ancillary Services Required 10/22/2024 999 [id number] Question Answer Referral Priority Within 30 days (routine) Where should this appointment be scheduled? Sarah Comments Is Patient homebound? Yes All sections of this form must be filled out completely. Forms with missing or illegible information will be returned for completion. This form should not be modified in any way. Forms that have been modified will be returned. This form may not be submitted by a home health agency. It must be complete and submitted by the ordering provider. One full business day lead time is required and service will be scheduled based on the next service day for the [facility] Home Phlebotomy does not service every geographical location on a daily basis. Contact [facility] Client Services at to find out service days for a specific location. Medical Laboratory [address] [place] [id number] José Miguel Duke M.D. Director and [employer] Patient Name: Amy Brumfield : 1945 Sex: female Address [address] [place] [address] [place] [address] Provider: @REF@? Pavan Mckeon MD? Diagnosis: (N39.0) Recurrent UTI (primary encounter diagnosis) (F32.1) Current moderate episode of major depressive disorder, unspecified whether recurrent (HCC) (I48.0) Paroxysmal atrial fibrillation (HCC) (E66.01, Z68.41) Morbid obesity with BMI of 40.0-44.9, adult (HCC) (R73.03) Prediabetes (Z86.711) History of pulmonary embolism (Z85.42) History of uterine cancer (N17.9) RENALDO (acute kidney injury) (HCC) (D64.9) Anemia, unspecified type (E11.9) Type 2 diabetes mellitus with hemoglobin A1c goal of less than 8.0% (HCC) Tests Requested CBC - one draw A1c - one draw cmp - one draw Encounter Details Date Type Department Care Team (Late st Contact Info) Description 09/28/2024 2:00 PM EST Telemedicine [facility] [address] [facility] [facility] [place] [id number] Pavan Mckeon MD [address] [facility] [place] [address] Recurrent UTI*; Current moderate episode of major depressive disorder, unspecified whether recurrent (HCC); Paroxysmal atrial fibrillation (HCC); Morbid obesity with BMI of 40.0-44.9, adult (HCC); Prediabetes; History of pulmonary embolism; History of uterine cancer; RENALDO (acute kidney injury) ([facility]); Anemia, unspecified type; Type 2 diabetes mellitus with hemoglobin A1c goal of less than 8.0% ([facility]) Allergies Active Allergy Reactions Criticality Noted Date Comments Chas Inhibitors 11/01/2007 cough Doxycycline 02/18/1999 eyes swollen Sulfa Antibiotics 02/18/1999 wierd documented as of this encounter (statuses as of 10/22/2024) Medications Meclizine HCl 25 MG Oral Tablet (Antivert) Take 1 Tablet by mouth 3 times a day as needed for Dizziness. 30 Tablet 1 01/21/20 23 Active Ipratropium-Albu terol 0.5-2.5 (3) MG/3ML Inhalation Solution (Duoneb) Inhale 3 mL via nebulizer every 6 hours as needed (SOB/wheezing). 07/08/20 23 Active Ondansetron HCl 4 MG [...] for Heartburn. 60 Tablet 10/12/19 24 Active Cranberry 400 MG Oral [...] 2 g before bedtime. 11/16/19 24 Active Nystatin [id number] UNIT/GM External Cream Apply 1 Application topically [...] DISORDER* 28 Tablet 5 05/27/20 24 Active Docusate Sodium 100 MG Oral [...] day. 45 Tablet 3 08/07/20 24 Active Zinc Oxide 20 % External Ointment Apply 1 g topically to affected area in the morning and 1 g in the evening. To affected area.. 60 g 3 08/07/20 24 Active Optifoam 4"X4" Pad Apply topically to affected area 2 times a day. 60 Each 3 08/07/20 24 Active Senna 8.6 MG Oral CapsuleIndicatio ns:Slow transit constipation Take 2 cap at night for 3 days and then as needed for constipation 60 Capsule 09/01/20 24 Active Tamsulosin HCl 0.4 MG Oral Capsule (Flomax) Take 1 Capsule by mouth every night at bedtime. 90 Capsule 3 09/19/19 25 Active Phenazopyridine HCl 200 MG Oral Tablet (Pyridium) Take 1 Tablet by mouth 3 times a day as needed (bladder spasms). 07/08/20 23 025 Discontin ued(Refil l) Sucralfate 1 GM Oral Tablet (Carafate)Indica tions:Gastroesop hageal reflux disease with esophagitis, unspecified whether hemorrhage TAKE 1 TABLET BY MOUTH FOUR TIMES DAILY WITH MEALS AND AT BEDTIME FOR GERD 120 Tablet 10 12/31/19 24 025 Discontin ued(Refil l) documented as of this encounter (statuses as of 10/22/2024) Active Problems Problem Noted Date Diagnosed Date Paroxysmal atrial fibrillation 10/22/2024 Type 2 diabetes mellitus wit h hemoglobin A1c goal of less than 8.0% 10/22/2024 Ureteral stent present 09/01/2024 Other hydronephrosis 05/23/2024 Need for prophylactic vaccin ation and inoculation against influenza 05/23/2024 Absolute anemia 11/23/2023 Morbid obesity with BMI of 40.0-44.9, adult 11/11 Closed displaced oblique fra cture of shaft of femur with routine healing 07/08/2023 Recurrent UTI 07/08/2023 Indwelling Osorio catheter present 07/08/2023 Current moderate episode of major depressive [...] as of this encounter (statuses as of 10/22/2024) Resolved Problems Problem Noted Date Diagnosed Date Resolved Date Prediabetes 01/27/2024 10/22/2024 Closed compression fracture of L2 lumbar vertebra, initial encounter 11/23/2023 10/22/2024 Morbid obesity with body mas s index [...] Overview (01/07/2016): ICD-10 update of inactive term nursing home current use of ant icoagulant therapy [...] as of this encounter (statuses as of 10/22/2024) Immunizations Name Administration Dates Next Due Pneumococcal [...] ages 0-17 years) Not on file 01/13/2024 Food Insecurity Answer Date Recorded Within the past 12 months, y ou worried that your food would run out before you got the money to buy more. Never true 01/13/20 24 Within the past 12 months, t he food you bought just didn't last and you didn't have money to get more. Never true 01/13/2024 Do you need food for this week? 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 I was in a hospital or clinic location. After connecting through IWTo,patient was verified with two unique identifiers. Patient (or authorized legal district representative) was then informed that this was a Telemedicine visit and being conducted confidentially over secure lines. Methods to assure confidentiality were taken. Patient acknowledged consent and understanding of pr ivacy and security of the Telemedicine visit. The patient agreed to participate. Telemed visit with pt. She is essentially bed bound and unable to get to the clinic. Most significant recent issues relate to recurrent urinary tract infections. Reviewed hospitalizations and Urologynotes. Following closely with [facility] urology who has been managing the UTIs. No recent new issues. Pt is not using pyridium and sucralfate currently and needs d/c orders to get to her current [facility]. Also, due for some follow up labs - will see if we can arrange home phlebotomy. 20 min with pt and chart review Pavan Mckeon MD documented in this encounter Plan of Treatment Scheduled Orders Name Type Priority Associated Diagnoses Orde r Schedule HEMOGLOBIN A1C Lab Routine Type 2 diabetes mellitus with hemoglobin A1c goal of less than 8.0% (HCC) Expected: 10/22/2024 (Approximate), Expires: 10/22/2025 CBC Lab Routine Anemia, unspecified type Expected: 10/22/2024 (Approximate), Expires: 10/22/2025 COMPREHENSIVE METABOLIC PANEL Lab Routine RENALDO (acute kidney injury) (HCC) Type 2 diabetes mellitus with hemoglobin A1c goal of less than 8.0% (HCC) Expected: 10/22/2024 (Approximate), Expires: 10/22/2025 Scheduled Referrals Name Type Priority Associated Diagnoses Orde r Schedule HOME PHLEBOTOMY REFERRAL OP Referral Within 30 days (routine) Type 2 diabetes mellitus with hemoglobin A1c goal of less than 8.0% (HCC) Ordered: 10/22/2024 Health Maintenance Due Date Last Done Comments DXA Scan 1945 Zoster Vaccines (2 of 3) 08/24/2012 06/29/2012 Depression Monitoring 02/19/2021 02/20/2020 DTap/Tdap Vaccines (2 - Td or Tdap) 03/26/2021 03/26/2011, 04/02/2000 Diabetic Eye Exam 07/29/2021 07/29/2020, , 06/27/2018, Additional history exists Adult Wellness Visit 05/25/2023 05/25/2022 Albumin/Creatinine Ratio 04/15/2024 023, 08/25/2019, 02/01/2019, Additional history exists COVID-19 Vaccine ( season) 2024 09/01/2021, 03/05/2021, 02/11/2021, Additional history exists HbA1c 05/25/2024 11/23/2023, 08/0 11/2022, 05/21/2022, Additional history exists Diabetic Foot Exam 11/22/2024 11/23/2023, 0 02/26/2020, 02/01/2019, Additional history exists GFR 06/30/2025 06/30/2024, 11/11, 09/29/2023, Additional history exists Pneumococcal Vaccine: 50+ Years Completed 08/20/2015, 11/27/2011, 08/08/2002, Additional history exists Influenza Vaccine (FLU shot) Completed , 10/16/2022, 06/01/2020, Additional history exists HPV (Gardasil) [...] Primary Urinary tract infection, site not specified Current moderate episode of major depressive disorder, unspecified whether recurrent (HCC) Paroxysmal atrial fibrillation (HCC) Atrial fibrillation Morbid obesity with BMI of 40.0-44.9, adult (HCC) Morbid obesity Prediabetes Other abnormal glucose History of pulmonary embolism Personal history of pulmonary embolism History of uterine cancer Personal history of malignant neoplasm of other parts of uterus RENALDO (acute kidney injury) (HCC) Acute kidney failure, unspecified Anemia, unspecified type Type 2 diabetes mellitus with hemoglobin A1c goal of less than 8.0% (HCC) documented in this encounter Advance Directives * Full Code (Latest Code Status on File) Date Activated Date Inactivated Comments 07/24/2014 7:59 AM 07/26/2014 10:17 PM This orde r reflects the patients wishes and were consensually agreed upon. Care Teams Coach Builder Relationship Specialty Start Date End Date Pavan Mckeon MD [address] [facility] [place] [id number] PCP - General Family Medicine 09/28/24 documented as of this encounter
--- NOTE | 2024-10-22 15:56 | Emergency Department Note ---
Impression & Plan Acute pyelitis, Chronic indwelling Cobb catheter, Cystitis, Cellulitis of gluteal region ED Provider Note CHIEF COMPLAINT: Urinary symptoms HISTORY OF PRESENTING ILLNESS: This 79-year-old female patient presents to the emergency department from [facility] for evaluation of urinary symptoms. The patient had a Cobb catheter in place when staff states the Cobb balloon burst while it was in her bladder. The patient states that she had a bladder spasm this morning which she gets sometimes. She then felt and heard a snap like a rubber band breaking. She didn't think anything of it until her Cobb Catheter was falling out. Staff removed to the Cobb catheter and felt like the balloon was fully intact, but the patient states that the staff told her that they are unable to replace the Cobb catheter and feel the patient has a CT scan performed. The patient had 10 mL of urine on bladder scan upon arrival to the ER. The patient states that she had urinary symptoms and was concerned about a UTI. She states that her PCP ordered a urinalysis, but it looked contaminated so they wanted to get a different specimen. The patient states that she is susceptible to sepsis from UTIs. However, the patient denies any symptoms at this time other urinary frequency and a foul odor to her urine. She denies any fevers. Denies any abdominal pain, nausea, or vomiting. Denies any chest pain or SOB. REVIEW OF SYSTEMS: See HPI for pertinent positives and pertinent negatives. ALLERGIES: See below MEDICATIONS: See below PAST MEDICAL HISTORY: See below PHYSICAL EXAM: VITALS: Vitals are noted on the nurse's note and reviewed by myself. GENERAL: Non toxic, in no acute distress, non-diaphoretic. SKIN: The patient has erythema and some skin breakdown to the bilateral medial gluteal areas as well as the pilonidal area. No fluctuance, pointing, or discharge at this time. Capillary refill <2 sec. EYES: PERRLA. EOMI. Conjunctivae without injection, sclerae without icterus. NOSE: Patent without discharge. MOUTH: Mucous membranes moist. Uvula midline. Airway patent. NECK: Supple without nuchal rigidity. HEART: Regular rate and rhythm without murmurs gallops or rubs. LUNGS: Clear to auscultation bilaterally without wheezes, rales or rhonchi. No retractions or accessory muscle use. ABDOMEN: Positive bowel sounds x 4. Normal tympanic percussion. Soft, nontender to palpation. No masses or hepatosplenomegaly. Nix sign negative. No CVA tenderness. No guarding, rigidity, or rebound tenderness. No focal RLQ or LLQ tenderness. MUSCULOSKELETAL: No gross musculoskeletal defects. NEURO: Patient was alert and oriented. No focal neurological deficits. DIFFERENTIAL DIAGNOSIS: Differential diagnosis includes retained Cobb catheter balloon, UTI, sepsis, hepatitis, pancreatitis, cholecystitis, cholelithiasis, appendicitis, kidney stone, pyelonephritis, gastritis, gastroenteritis, mesenteric adenitis, obstruction, constipation, hernia, abdominal abscess, perforation, diverticulitis, IBD, ischemic colitis, abdominal aortic aneurysm, , ectopic , ovarian cyst, ovarian torsion, acute salpingitis, or others. ED COURSE AND MEDICAL DECISION MAKING: MEDICATIONS GIVEN: Rocephin 2 g IV. 500 mL normal saline solution bolus. MONITOR: Continuous surveillance monitor: Order was placed for continuous surveillance monitor. Patient was placed on the surveillance monitor and continuous pulse ox. Patient was noted to be in normal sinus rhythm at an initial rate of 78 bpm per my interpretation. INTERPRETATION OF LABS: I interpreted the labs with full lab results as below in the lab section of this note. Laboratory results pertinent to the emergent complaint are discussed in the MDM section below. The patient was advised to follow up with their PCP and/or specialist(s) for further outpatient monitoring and management of any abnormal results. INTERPRETATION OF IMAGING: Imaging studies were interpreted by myself and read by radiology as per the imaging section of this note. The patient was advised to follow up with their PCP and/or specialist(s) for further outpatient management of any non-emergent abnormal findings. CT scan of the abdomen and pelvis with IV contrast shows bilateral pyelitis and cystitis with adequately positioned left ureteral stent. Nonobstructing right kidney stones. Subcutaneous edema posterior to the left pelvis and gluteus muscles. Correlate clinically for cellulitis. EXTERNAL RECORDS REVIEWED: I reviewed the patient's most recent admission in August for urosepsis. I also reviewed the patient's past culture results. CHRONIC MEDICAL/SOCIAL CONDITIONS AFFECTING CARE: Indwelling Cobb catheter with a history of frequent UTIs and history of recent urosepsis CONSULTATIONS: On-call hospitalist MDM SUMMARY: I examined the patient. The patient states that she had a bladder spasm this morning and then felt/heard something like a rubber band snap. Her Cobb catheter then started falling out later in the day and nursing staff noted that her Cobb catheter balloon must have burst in her bladder. They were unable to reinsert a Cobb catheter until they had a CT scan to confirm no retained products. The patient states that she has had some urinary frequency and foul odor to her urine recently. She had outpatient urinalysis testing, but it appeared contaminated and a repeat sample was ordered, but she does not have those results yet. The patient denies any other symptoms at this time. No fevers, vomiting, or abdominal pain. An IV lock was placed and labs were drawn. The patient was hydrated with 500 mL normal saline solution bolus. The patient declined any medication for pain while in the emergency department. White blood cell count normal at 8.09. Hemoglobin normal at 12.2. Platelet count normal at 302. Glucose 106 and alk phos 116, but CMP otherwise without concerning abnormalities. Urinalysis with 2+ protein, 3+ blood, positive nitrites, 3+ leukocyte esterase, greater than 50 white blood cells, greater than 20 red blood cells, greater than 20 hyaline cast, 6-10 epithelial cells, and 4+ bacteria concerning for UTI. Urine culture is pending. Blood cultures are pending. CT scan of the abdomen and pelvis with IV contrast shows bilateral pyelitis and cystitis with adequately positioned left ureteral stent. Nonobstructing right kidney stones. Subcutaneous edema posterior to the left pelvis and gluteus muscles. Correlate clinically for cellulitis. The patient does have some erythema of the skin with some skin breakdown in this area without evidence of fluctuance or abscess. I had a meaningful discussion about this patient with Dr. Chicas who agrees with my assessment and the treatment plan. Due to the patient's history of frequent UTIs with an indwelling Cobb catheter and recent urosepsis, we feel the patient requires admission for further evaluation and treatment of the UTI and CT scan findings. The patient was given Rocephin 2 g IV after blood cultures were drawn as this appears to be what she was treated with for her last infection. Cultures are still pending. I spoke with the on-call hospitalist who agreed to admit the patient for further evaluation and treatment. Please refer to their dictation for further details. The patient's care was transferred in stable condition. DIAGNOSIS: Pyelitis and Cystitis Gluteal cellulitis Indwelling Cobb catheter Past Med/Surg History Problem List (Updated 10/22/24 @ 21:36 by Margaret Jeff PA-C) Cellulitis of gluteal region (Acute) Cystitis (Acute) Chronic indwelling Cobb catheter (Acute) Acute pyelitis (Acute) Ureteral stent present Catheter-associated urinary tract infection E coli bacteremia Septic shock Elevated troponin (Acute) Severe sepsis (Acute) Acute metabolic encephalopathy Demand ischemia of myocardium Acute renal failure superimposed on chronic kidney disease Severe sepsis with acute organ dysfunction due to Gram negative bacteria Sacral back pain Infection associated with indwelling ureteral stent (Acute) Hematuria (Acute) Complicated urinary tract infection (Acute) Protein malnutrition Bilateral hydronephrosis Chronic indwelling Cobb catheter (Acute) Nephrolithiasis Urinary retention Calculus of left kidney Morbid obesity Atrial fibrillation (Acute) Encounter for pre-operative examination Deep vein thrombosis Hypertension Hyperlipidemia Asthma Osteoarthritis of knees, bilateral Chronic GERD Medical History Obesity Pulmonary hypertension moderate per 06/2023 ECHO (PASP 47mmHg) Skin breakdown sacral skin breakdown per 06/2024 hospitalization; pt to follow with wound care at [facility] 2 or more hospital admissions in past 6 months admitted [facility] 06/08-06/15/24: dx: complicated UTI, chronic indwelling cobb catheter, calculus of L kidney, b/l hydronephrosis. admitted [facility] 06/26- 06/30/24: dx: infection associated with indwelling uteretal stent, hematuria, acute L flank pain: pt D/C on Cefdinir (pt also noted to have sacral skin area breakdown during admission and pt to f/u with wound care at [facility]) History of anemia History of posterior vitreous detachment B/L History of asthma "Well controlled" Chronic indwelling Cobb catheter Hydronephrosis of left kidney Diabetes mellitus, type II Diet controlled Overactive bladder HTN (hypertension) GERD (gastroesophageal reflux disease) Hyperlipidemia Hx of vertigo Hx of cancer of uterus 2013- radiation Hx pulmonary embolism Remote hx years ago In setting of prolonged sitting/immobility during a previous hospitalization per records Urinary retention Cobb cath in place Atrial fibrillation Taking Eliquis History of home oxygen therapy not currently assisted resident Resides at [facility] Nontoxic thyroid nodule Hx: UTI (urinary tract infection) Recurrent Hx of sepsis Lipodermatosclerosis Chronic bronchitis 'Bronchial asthma' Acquired lymphedema "Stomach" Gets therapy/massage to manage > was complication after radiation treatment per previous PAT RN notation IBS (irritable bowel syndrome) Surgical History History of anesthesia reaction Awareness with D&C and colonoscopy History of open reduction and internal fixation (ORIF) procedure (06/2023) left femur fx Hx of cystoscopy Multiple; most recent: 04/13/24: MAC without issue History of cataract surgery (2020) R/L History of dilatation and curettage History of esophagogastroduodenoscopy (EGD) History of colonoscopy History of bilateral tubal ligation History of cholecystectomy Hx of hernia repair (12/2017) Ventral hernia with mesh History of tooth extraction History of cardiac cath (02/18/11) @ [facility]--No stents Family History Other No family history of adverse response to anesthesia Social History Smoking Status: Never smoker Second Hand Exposure: No; Do You Dip or Chew Tobacco: No; Hx Alcohol Use: No Hx Substance Use: No Preferred Language: Estonian Communication Ability: Effective Communication Ability Comment: alert and oriented x3 - of sound mind to sign consent Visual Impairment: No Limitations Stoker Erector Required: Voice Beliefs That Will Affect Care: None Current Living Situation: Group Home Current Living Situation Comment: [place] Feels Safe at Home: Yes Assistive Devices: Wheelchair Allergies Allergies Allergy/AdvReac Type Severity Reaction Status Date / Time doxycycline Allergy Intermediate Swelling Verified 08/14/24 15:45 tetracycline Allergy Mild Eye Verified 08/14/24 15:45 swelling NARINDER Inhibitors AdvReac Intermediate Cough Verified 08/14/24 15:45 codeine AdvReac Mild [place] Verified 08/14/24 15:45 "crazy" Sulfa (Sulfonamide AdvReac Mild Gastrointestinal Verified 08/14/24 15:45 Antibiotics) Upset Home Meds Home Medications Medication Instructions Recorded Confirmed acetaminophen 500 mg tablet 500 mg PO Q6H PRN Fever Or Pain 06/28/23 10/22/24 (Tylenol Extra Strength) apixaban 5 mg tablet (Eliquis) 5 mg PO AMHS 06/28/23 10/22/24 atorvastatin 80 mg tablet 80 mg PO HS 06/28/23 10/22/24 lansoprazole 30 mg capsule,delayed 30 mg PO BID 06/28/23 10/22/24 release metoprolol succinate 50 mg 50 mg PO AMHS 06/28/23 10/22/24 tablet,extended release 24 hr spironolactone 25 mg tablet 25 mg PO QAM 06/28/23 10/22/24 docusate sodium 100 mg capsule 200 mg PO HS 09/14/23 10/22/24 (Colace) mirtazapine 15 mg tablet (Remeron) 15 mg PO HS 09/14/23 10/22/24 ferrous sulfate 325 mg (65 mg 325 mg PO Q OTHER DAY 04/03/24 10/22/24 iron) tablet,delayed release montelukast 10 mg tablet 10 mg PO QAM 04/03/24 10/22/24 ascorbic acid (vitamin C) 500 mg 500 mg PO BID 07/10/24 10/22/24 tablet (Vitamin C) loperamide 2 mg tablet 2 mg PO Q4H PRN Diarrhea 07/10/24 10/22/24 polyethylene glycol 3350 17 17 g PO DAILY PRN Constipation 07/10/24 10/22/24 gram/dose oral powder Saccharomyces boulardii 250 mg 250 mg PO QAM 08/14/24 10/22/24 capsule (Florastor) cranberry extract 500 mg capsule 500 mg PO QAM 08/14/24 10/22/24 (Cranberry Concentrate) diclofenac sodium 1 % topical gel 2 g EXT QID Pain 08/14/24 10/22/24 (Voltaren Arthritis Pain) zinc oxide 20 % topical ointment 1 applic topical BID 08/14/24 10/22/24 foam bandage 4" X 4" (Optifoam) 10/22/24 10/22/24 sennosides 8.6 mg tablet (senna) 17.2 mg PO DAILY PRN CONDTIPATION 10/22/24 10/22/24 Previous Rx's Medication Instructions Recorded tamsulosin 0.4 mg capsule 0.4 mg PO HS #30 caps 06/14/24 tramadol 50 mg tablet 50 mg PO Q12H PRN pain #10 tabs 06/14/24 methenamine hippurate 1 gram tablet 1 g PO BID #60 tabs 06/15/24 oxybutynin chloride 5 mg tablet 5 mg PO Q8H PRN bladder spasms #30 07/17/24 tabs Results & Data (ED) Vital Signs Vital Signs - 24 hr 10/22/24 13:55 10/22/24 13:55 10/22/24 15:23 Temperature 36.8 C Temperature Source Oral Pulse Rate 84 Pulse Rate [Apical] 84 76 Pulse Rhythm Regular Pulse Rhythm [Apical] Regular Pulse Strength Normal Pulse Strength [Apical] Normal Respiratory Rate 18 18 20 Respiratory Effort / Characteristics Non-Labored Spontaneous Non-Labored Spontaneous Non-Labored Spontaneous Respiratory Depth Normal Normal Normal Respiratory Pattern Regular Regular Blood Pressure 145/79 H Blood Pressure [Right Arm] 145/79 H 136/61 Blood Pressure Mean 101 Blood Pressure Mean [Right Arm] 101 86 Blood Pressure Position Lying Blood Pressure Position [Right Arm] Lying Pulse Oximetry 96 96 93 Oxygen Delivery Method Room Air Room Air Room Air Sepsis Recent Fever Within 48 Hours No Sepsis New/Unexplained Change in Mental Status No Sepsis Action Taken by Nursing No Action Required 10/22/24 17:39 10/22/24 20:01 Temperature Temperature Source Pulse Rate 79 Pulse Rate [Apical] 69 Pulse Rhythm Pulse Rhythm [Apical] Pulse Strength Pulse Strength [Apical] Respiratory Rate 18 Respiratory Effort / Characteristics Respiratory Depth Normal Respiratory Pattern Blood Pressure Blood Pressure [Right Arm] 130/70 Blood Pressure Mean Blood Pressure Mean [Right Arm] 90 Blood Pressure Position Blood Pressure Position [Right Arm] Pulse Oximetry 96 Oxygen Delivery Method Room Air Sepsis Recent Fever Within 48 Hours Sepsis New/Unexplained Change in Mental Status Sepsis Action Taken by Nursing Laboratory Data 10/22/24 16:28 10/22/24 17:43 Lab Results 10/22/24 10/22/24 10/22/24 Range/Units 16:28 16:42 17:43 WBC 8.09 (4.8-10.8) K/ul RBC 4.43 (4.20-5.40) M/uL Hgb 12.2 (12.0-16.0) g/dl Hct 39.1 (37.0-47.0) % MCV 88.3 (80.0-100.0) fL MCH 27.5 (25.0-34.0) pg MCHC 31.2 L (32.0-36.0) g/dL RDW Std Deviation 50.7 H (36.4-46.3) fL RDW Coeff of Rodolfo 15.6 H (11.5-14.5) % Plt Count 302 (130-400) K/uL MPV 9.5 (9.4-12.4) fL Immature Gran % (Auto) 0.4 % Neut % (Auto) 62.3 % Lymph % (Auto) 29.8 % [place] % (Auto) 4.9 % Eos % (Auto) 2.2 % Baso % (Auto) 0.4 % Neut # (Auto) 5.04 (1.40-6.50) K/uL Lymph # (Auto) 2.41 (1.20-3.40) K/uL [place] # (Auto) 0.40 (0.11-0.59) K/uL Eos # (Auto) 0.18 (0.00-0.50) K/uL Baso # (Auto) 0.03 (0.00-0.20) K/uL Immature Gran # (Auto) 0.03 (0.01-0.20) K/uL Sodium TNP 138 Potassium TNP 3.8 Chloride 103 (98-107) mmol/L Carbon Dioxide 30 (21-32) mmol/L Anion Gap TNP BUN 8 (6-23) mg/dl Creatinine 0.52 L (0.6-1.2) mg/dl Est Cr Clr Drug Dosing 97.7 ml/min eGFR 95.04 BUN/Creatinine Ratio 15.4 (10-20) Glucose 106 H (70-99(Fasting)) mg/dl Calcium 9.0 (8.6-10.3) mg/dl Magnesium 1.9 (1.7-2.4) mg/dl Total Bilirubin 0.5 (0.2-1.0) mg/dl AST TNP 7 L ALT 6 L (7-52) U/L Alkaline Phosphatase 116 H (34-104) U/L Total Protein 6.8 (6.0-8.3) gm/dl Albumin 3.1 L (3.4-5.0) gm/dl Globulin 3.7 (2.5-4.0) gm/dl Albumin/Globulin Ratio 0.8 L (0.9-2) Urine Color [place] Urine Appearance Turbid A (Clear) Urine pH 6.0 (4.5-7.5) Ur Specific [place] 1.011 (1.000-1.030) Urine Protein 2+ H (Negative) Urine Glucose (UA) Negative (Negative) Urine Ketones Negative (Negative) Urine Blood 3+ H (Negative) Urine Nitrite Positive A (Negative) Urine Bilirubin Negative (Negative) Urine Urobilinogen Negative (Negative) Ur Leukocyte Esterase 3+ H (Negative) Urine WBC (Auto) >50 H (0-5) /hpf Urine RBC (Auto) >20 H (0-2) /hpf U Hyaline Cast (Auto) >20 H (0-2) /lpf U Epithel Cells (Auto) 6-10 H (0-2) /hpf Urine Bacteria (Auto) 4+ H (None Seen) Administered Medications Apixaban (Apixaban 5 Mg Tablet) 5 mg PO [facility] Stop: 11/21/24 20:59 Last Admin: 10/22/24 22:29 Dose: 5 mg Documented By: ALW Atorvastatin Calcium (Atorvastatin 40 Mg Tab) 80 mg PO [facility] Stop: 11/21/24 20:59 Last Admin: 10/22/24 22:29 Dose: 80 mg Documented By: ALW Diclofenac Sodium (Diclofenac Sod 1% Gel 100 Gm Tube) 2 gm EXT QID [facility]; Protocol Stop: 11/21/24 20:59 Last Admin: 10/22/24 23:24 Dose: 2 gm Documented By: ALW Docusate Sodium (Docusate Sodium 100 Mg Cap) 200 mg PO [facility] Stop: 11/21/24 20:59 Last Admin: 10/22/24 23:25 Dose: Not Given Documented By: ALW Potassium Chloride/Sodium Chloride (Normal Saline W/20 Meq Kcl) 20 meq in 1,000 mls @ 75 mls/hr IV .[id number] STA Stop: 10/23/24 10:32 Last Admin: 10/22/24 23:26 Dose: Not Given Documented By: ALW Insulin Aspart (Insulin Aspart Per Unit Charge) 0 units SC [facility] Stop: 11/21/24 21:44 Last Admin: 10/22/24 21:45 Dose: Not Given Documented By: ALW Metoprolol Succinate (Metoprolol Succ 50mg Ext Rel Tab) 50 mg PO [facility] Stop: 11/21/24 20:59 Last Admin: 10/22/24 22:29 Dose: 50 mg Documented By: ASAF Mirtazapine (Mirtazapine Tab 15 Mg Tab) 15 mg PO HS [facility] Stop: 11/21/24 20:59 Last Admin: 10/22/24 22:29 Dose: 15 mg Documented By: ASAF Pantoprazole Sodium (Pantoprazole 40 Mg Tab) 40 mg PO BID [facility] Stop: 11/21/24 20:59 Last Admin: 10/22/24 22:29 Dose: 40 mg Documented By: ASAF Tamsulosin HCl (Tamsulosin Hcl 0.4 Mg Cap) 0.4 mg PO HS [facility] Stop: 11/21/24 20:59 Last Admin: 10/22/24 22:28 Dose: 0.4 mg Documented By: ASAF Discontinued Medications Ceftriaxone Sodium (Rocephin) 2,000 mg in 50 mls @ 100 mls/hr IV NOW STA Stop: 10/22/24 19:19 Last Infusion: 10/22/24 19:57 Dose: Infused Documented By: Admin: 10/22/24 19:13 Dose: 100 mls/hr Documented By: LIBORIO Sodium Chloride (Nss) 500 mls @ 999 mls/hr IV .Q31M ONE Stop: 10/22/24 19:20 Last Infusion: 10/22/24 19:57 Dose: Infused Documented By: Admin: 10/22/24 19:13 Dose: 999 mls/hr Documented By: LIBORIO Cefepime HCl (Maxipime 2000mg) 2,000 mg in 20 mls @ 5 mls/min IV ONE STA; Protocol Stop: 10/22/24 21:15 Last Admin: 10/22/24 23:25 Dose: 5 mls/min Documented By: ASAF Ioversol (Optiray 320 100ml) 90 ml IV ONCE ONE Stop: 10/22/24 17:23 Last Admin: 10/22/24 17:22 Dose: 90 ml Documented By: ROSELINE Imaging Data Radiologist's Impression: Abdomen/Pelvis CT 10/22/24 16:02 EXAM: CT Abdomen and Pelvis With Intravenous Contrast INDICATION: TECHNIQUE: Axial computed tomography images of the abdomen and pelvis with intravenous contrast. Sagittal and coronal reformatted images were created and reviewed. This CT exam was performed using one or more of the following dose reduction techniques: automated exposure control, adjustment of the mA and/or kV according to patient size, and/or use of iterative reconstruction technique. COMPARISON: No relevant prior studies available. FINDINGS: Limitations: None. Lung bases: Dependent atelectasis present in the lung bases. Pleural space: No visualized pleural effusion or pneumothorax. Heart: Cardiomegaly. No pericardial effusion. Mediastinum: No abnormality noted. ABDOMEN: Liver: No abnormality noted. Gallbladder and bile ducts: Cholecystectomy. No ductal dilation or stone noted. Pancreas: Homogeneous enhancement. No mass, inflammation or ductal dilation. Spleen: No significant abnormality noted. Adrenals: Approximate 1.8 cm right adrenal adenoma. No further assessment required. The left appears normal. Kidneys and ureters: Bilateral renal scarring noted. There is urothelial thickening and nonobstructing stones in the right kidney. There is a left ureteral stent in good position without hydronephrosis. Simple cyst left kidney. No further assessment required. No urinary gas. Stomach and bowel: Moderate stool in the colon particularly in the rectum. Moderate diverticulosis particularly of the left colon. No diverticulitis. PELVIS: Appendix: No findings to suggest acute appendicitis. Bladder: There is air in the urinary bladder which is incompletely distended and appears mildly thickened. No stone noted. Reproductive: No abnormalities noted. ABDOMEN and PELVIS: Intraperitoneal space: No free air. No significant fluid collection. Bones/joints: Left proximal femoral hardware well-seated and intact. The bones are diffusely demineralized. There is compression of L1, L2 and L5 most notably involving L1 most likely chronic. An acute component at L1 is not completely excluded. Soft tissues: There is subcutaneous edema posterior to the left pelvis. Vasculature: Atherosclerotic calcification of the aorta and branches. No aneurysm. Lymph nodes: No pathologically enlarged lymph nodes. IMPRESSION: 1. Bilateral pyelitis and cystitis with adequately positioned left ureteral stent. 2. Nonobstructing right kidney stones. 3. Subcutaneous edema posterior to the left pelvis and gluteus muscles. Correlate clinically for cellulitis. ACT 112: Negative or not required by law. Electronically signed by Kira Cunningham 10-22-2024 5:58 PM Discharge Plan Visit Data Chief Complaint: Urinary Symptoms ED Provider: Karli Chicas ED Midlevel Provider: Margaret Jeff Discharge Problem: Acute pyelitis, Chronic indwelling Cobb catheter, Cystitis, Cellulitis of gluteal region Patient Disposition: Admitted As Inpatient Condition: Good Discharge Instructions Interventions: ED Discharge Assessment Last Done: 10/22/24 21:46
[2024-10-22 16:49] LABS: Basophils # (auto) 0.03 K/uL (0.00-0.20); Basophils % (auto) 0.4 %; Eosinophils # (auto) 0.18 K/uL (0.00-0.50); Eosinophils % (auto) 2.2 %; Hematocrit (blood only) 39.1 % (37.0-47.0); Hemoglobin 12.2 g/dl (12.0-16.0); Immature Granulocytes # (auto) 0.03 K/uL (0.01-0.20); Immature Granulocytes % (auto) 0.4 %; Lymphocytes # (auto) 2.41 K/uL (1.20-3.40); Lymphocytes % (auto) 29.8 %; Mean Corpuscular Hemoglobin 27.5 pg (25.0-34.0); Mean Corpuscular Hgb Conc 31.2 g/dL (32.0-36.0); Mean Corpuscular Volume 88.3 fL (80.0-100.0); Mean Platelet Volume 9.5 fL (9.4-12.4); Monocytes % (auto) 4.9 %; Neutrophils # (auto) 5.04 K/uL (1.40-6.50); Neutrophils % (auto) 62.3 %; Platelet Count 302 K/uL (130-400); RDW Coefficient of Variation 15.6 % (11.5-14.5); RDW Standard Deviation 50.7 fL (36.4-46.3); Red Blood Count 4.43 M/uL (4.20-5.40); White Blood Count 8.09 K/ul (4.8-10.8)
[2024-10-22 17:06] LABS: Alanine Aminotransferase 6 U/L (7-52); Albumin Globulin Ratio 0.8 (0.9-2); Albumin Level 3.1 gm/dl (3.4-5.0); Alkaline Phosphatase 116 U/L (34-104); BUN Creatinine Ratio 15.4 (10-20); Bilirubin,Total 0.5 mg/dl (0.2-1.0); Blood Urea Nitrogen 8 mg/dl (6-23); Carbon Dioxide 30 mmol/L (21-32); Chloride 103 mmol/L (98-107); Creatinine Clr Calc Pharmacy 97.7 ml/min; Globulin 3.7 gm/dl (2.5-4.0); Glucose 106 mg/dl (70-99(Fasting)); Total Protein 6.8 gm/dl (6.0-8.3)
[2024-10-22 17:06] LABS: Appearance Urine Turbid (Clear); Bacteria Urine Automated 4+ (None Seen); Bilirubin Urine Negative (Negative); Blood Urine 3+ (Negative); Cast Urine Automated >20 /lpf (0-2); Color Urine Orange; Glucose Urine UA Negative (Negative); Ketones Urine Negative (Negative); Leukocyte Esterase Urine 3+ (Negative); Nitrite Urine Positive (Negative); Protein Urine 2+ (Negative); RBC Urine Automated >20 /hpf (0-2); Specific Gravity Urine 1.011 (1.000-1.030); Urobilinogen Urine Negative (Negative); WBC Urine Automated >50 /hpf (0-5)
[2024-10-22] MEDS: OPTIRAY 320 100ml IV ONE (17:22)
--- NOTE | 2024-10-22 17:28 | Emergency Department Note ---
ED Visit Note I was consulted by the Advanced Practice Provider, Margaret Jeff PA-C. I performed a substantive portion of the visit. This includes aspects of: History: Patient is a 79-year-old female presenting with a complication from Cobb catheter. Nurse at facility was concerned that patient's cobb balloon popped and they were nervous to put in a new catheter without further evaluation. Patient has been having some dysuria and urinary symptoms. MDM: - Laboratory workup interpreted by myself showed normal WBC; stable electrolytes - UA showed evidence of infection. Given 2g IV rocephin - CT abdomen/pelvis with IV contrast showed "bilateral pyelitis and cystitis with adequately positioned left ureteral stent. Nonobstructing right kidney stones and subcutaneous edema posterior to the left pelvis and gluteus muscles" concerning for possible cellulitis - Given patient's complicated UTI, will admit to hospitalist service. .
--- NOTE | 2024-10-22 17:58 | CT Scan Report ---
EXAM: CT Abdomen and Pelvis With Intravenous Contrast INDICATION: TECHNIQUE: Axial computed tomography images of the abdomen and pelvis with intravenous contrast. Sagittal and coronal reformatted images were created and reviewed. This CT exam was performed using one or more of the following dose reduction techniques: automated exposure control, adjustment of the mA and/or kV according to patient size, and/or use of iterative reconstruction technique. COMPARISON: No relevant prior studies available. FINDINGS: Limitations: None. Lung bases: Dependent atelectasis present in the lung bases. Pleural space: No visualized pleural effusion or pneumothorax. Heart: Cardiomegaly. No pericardial effusion. Mediastinum: No abnormality noted. ABDOMEN: Liver: No abnormality noted. Gallbladder and bile ducts: Cholecystectomy. No ductal dilation or stone noted. Pancreas: Homogeneous enhancement. No mass, inflammation or ductal dilation. Spleen: No significant abnormality noted. Adrenals: Approximate 1.8 cm right adrenal adenoma. No further assessment required. The left appears normal. Kidneys and ureters: Bilateral renal scarring noted. There is urothelial thickening and nonobstructing stones in the right kidney. There is a left ureteral stent in good position without hydronephrosis. Simple cyst left kidney. No further assessment required. No urinary gas. Stomach and bowel: Moderate stool in the colon particularly in the rectum. Moderate diverticulosis particularly of the left colon. No diverticulitis. PELVIS: Appendix: No findings to suggest acute appendicitis. Bladder: There is air in the urinary bladder which is incompletely distended and appears mildly thickened. No stone noted. Reproductive: No abnormalities noted. ABDOMEN and PELVIS: Intraperitoneal space: No free air. No significant fluid collection. Bones/joints: Left proximal femoral hardware well-seated and intact. The bones are diffusely demineralized. There is compression of L1, L2 and L5 most notably involving L1 most likely chronic. An acute component at L1 is not completely excluded. Soft tissues: There is subcutaneous edema posterior to the left pelvis. Vasculature: Atherosclerotic calcification of the aorta and branches. No aneurysm. Lymph nodes: No pathologically enlarged lymph nodes. IMPRESSION: 1. Bilateral pyelitis and cystitis with adequately positioned left ureteral stent. 2. Nonobstructing right kidney stones. 3. Subcutaneous edema posterior to the left pelvis and gluteus muscles. Correlate clinically for cellulitis. ACT 112: Negative or not required by law. Electronically signed by Kira Cunningham 10-22-2024 5:58 PM
[2024-10-22 18:13] LABS: Potassium 3.8 mmol/L (3.5-5.1)
[2024-10-22] MEDS: SODIUM CHLORIDE 0.9% 500 ML IV ONE (19:13)
[2024-10-22] MEDS: cefTRIAXone SODIUM 2,000 MG/50 ML BAG IV STA (19:13)
--- NOTE | 2024-10-22 20:02 | History & Physical Report ---
Date of Service October 22, 2024 Assessment & Plan (1) Complicated urinary tract infection: Plan: complicated UTI recurrent UTIs on chronic methenamine suppression Rx/urge incontinence/chronic indwelling Cobb catheter/urolithiasis No sepsis for now history PE DVT/A-fib, rate controlled on Eliquis valvular heart disease (mild AR/TR) hypertension, stable hyperlipidemia, on statin Rx pulmonary hypertension bronchial asthma, not in exacerbation DM2 diet-controlled, well-controlled as of recent hemoglobin A1c of 22 May 2024 endometrial cancer status post radiation chronic anemia, hemoglobin better than baseline chronic lymphedema Admit to medical floor Follow urine CS, Cefepime on the basis of microbiologic history (history enteric organisms, Pseudomonas as per records) Patient may seek Palliative care recommendations after talking to family to discuss goals of care given recurrent admissions for infection since last year. ISS BG goal 1 10-1 40 DVT prophylaxis. Eliquis DNR Patient son requesting updates from providers. Mr. Gerald Brumfield, contact #[phone]. Text document was generated using [employer] voice recognition software. It may contain grammatical or spelling errors. Kindly contact undersigned for clarification of any documentation item in question. History of Present Illness Chief Complaint: Catheter issues Primary Care Provider: Pavan Mckeon MD History obtained from patient and records. Medical history significant for history PE DVT/A-fib on Eliquis, valvular heart disease (mild AR/TR), hypertension, hyperlipidemia, pulmonary hypertension, bronchial asthma, DM2 diet-controlled, endometrial cancer status post radiation, recurrent UTIs on chronic methenamine suppression Rx, urge incontinence, chronic indwelling Cobb catheter, urolithiasis, GERD, chronic anemia (baseline hemoglobin of 11), chronic lymphedema, osteoarthritis. Last confinement August 2024 for E. coli septicemia secondary to catheter associated UTI. Patient completed IV ceftriaxone course. IV cefepime administered at the ER. Patient felt something pop inside her bladder. Patient's catheter later fell out with deflated balloon. Patient urine noted to be malodorous. Patient denies abdominal or flank pain or hematuria symptoms. Denies headache, chest pain, SOB. Cobb catheter replaced at the ER. IV ceftriaxone administered. MEDICAL HISTORY: As above. SURGICAL HISTORY: Bilateral tubal ligation, cholecystectomy, appendectomy, D&C, urologic procedures, femoral fracture surgery, urologic procedures FAMILY HISTORY: Heart disease, COPD. PERSONAL SOCIAL HISTORY: Nonsmoker, no chronic intake of alcoholic beverages. 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 Allergies Allergy/AdvReac Type Severity Reaction Status Date / Time doxycycline Allergy Intermediate Swelling Verified 08/14/24 15:45 tetracycline Allergy Mild Eye Verified 08/14/24 15:45 swelling NARINDER Inhibitors AdvReac Intermediate Cough Verified 08/14/24 15:45 codeine AdvReac Mild Wheelwright Verified 08/14/24 15:45 "crazy" Sulfa (Sulfonamide AdvReac Mild Gastrointestinal Verified 08/14/24 15:45 Antibiotics) Upset Home Medications Medication Instructions Recorded Confirmed Type acetaminophen 500 mg tablet 500 mg PO Q6H PRN Fever Or Pain 06/28/23 10/22/24 History (Tylenol Extra Strength) apixaban 5 mg tablet (Eliquis) 5 mg PO AMHS 06/28/23 10/22/24 History atorvastatin 80 mg tablet 80 mg PO HS 06/28/23 10/22/24 History lansoprazole 30 mg capsule,delayed 30 mg PO BID 06/28/23 10/22/24 History release metoprolol succinate 50 mg 50 mg PO AMHS 06/28/23 10/22/24 History tablet,extended release 24 hr spironolactone 25 mg tablet 25 mg PO QAM 06/28/23 10/22/24 History docusate sodium 100 mg capsule 200 mg PO HS 09/14/23 10/22/24 History (Colace) mirtazapine 15 mg tablet (Remeron) 15 mg PO HS 09/14/23 10/22/24 History ferrous sulfate 325 mg (65 mg 325 mg PO Q OTHER DAY 04/03/24 10/22/24 History iron) tablet,delayed release montelukast 10 mg tablet 10 mg PO QAM 04/03/24 10/22/24 History tamsulosin 0.4 mg capsule 0.4 mg PO HS #30 caps 06/14/24 10/22/24 Rx tramadol 50 mg tablet 50 mg PO Q12H PRN pain #10 tabs 06/14/24 10/22/24 Rx methenamine hippurate 1 gram tablet 1 g PO BID #60 tabs 06/15/24 10/22/24 Rx ascorbic acid (vitamin C) 500 mg 500 mg PO BID 07/10/24 10/22/24 History tablet (Vitamin C) loperamide 2 mg tablet 2 mg PO Q4H PRN Diarrhea 07/10/24 10/22/24 History polyethylene glycol 3350 17 17 g PO DAILY PRN Constipation 07/10/24 10/22/24 History gram/dose oral powder oxybutynin chloride 5 mg tablet 5 mg PO Q8H PRN bladder spasms #30 07/17/24 10/22/24 Rx tabs Saccharomyces boulardii 250 mg 250 mg PO QAM 08/14/24 10/22/24 History capsule (Florastor) cranberry extract 500 mg capsule 500 mg PO QAM 08/14/24 10/22/24 History (Cranberry Concentrate) diclofenac sodium 1 % topical gel 2 g EXT QID Pain 08/14/24 10/22/24 History (Voltaren Arthritis Pain) zinc oxide 20 % topical ointment 1 applic topical BID 08/14/24 10/22/24 History foam bandage 4" X 4" (Optifoam) 10/22/24 10/22/24 History sennosides 8.6 mg tablet (senna) 17.2 mg PO DAILY PRN CONDTIPATION 10/22/24 10/22/24 History Past Med/Surg History Problem List (Updated 10/22/24 @ 21:36 by Margaret Jeff PA-C) Cellulitis of gluteal region (Acute) Cystitis (Acute) Chronic indwelling Cobb catheter (Acute) Acute pyelitis (Acute) Ureteral stent present Catheter-associated urinary tract infection E coli bacteremia Septic shock Elevated troponin (Acute) Severe sepsis (Acute) Acute metabolic encephalopathy Demand ischemia of myocardium Acute renal failure superimposed on chronic kidney disease Severe sepsis with acute organ dysfunction due to Gram negative bacteria Sacral back pain Infection associated with indwelling ureteral stent (Acute) Hematuria (Acute) Complicated urinary tract infection (Acute) Protein malnutrition Bilateral hydronephrosis Chronic indwelling Cobb catheter (Acute) Nephrolithiasis Urinary retention Calculus of left kidney Morbid obesity Atrial fibrillation (Acute) Encounter for pre-operative examination Deep vein thrombosis Hypertension Hyperlipidemia Asthma Osteoarthritis of knees, bilateral Chronic GERD Medical History Obesity Pulmonary hypertension moderate per 06/2023 ECHO (PASP 47mmHg) Skin breakdown sacral skin breakdown per 06/2024 hospitalization; pt to follow with wound care at [facility] 2 or more hospital admissions in past 6 months admitted [facility] 06/08-06/15/24: dx: complicated UTI, chronic indwelling cobb catheter, calculus of L kidney, b/l hydronephrosis. admitted [facility] 06/26- 06/30/24: dx: infection associated with indwelling uteretal stent, hematuria, acute L flank pain: pt D/C on Cefdinir (pt also noted to have sacral skin area breakdown during admission and pt to f/u with wound care at [facility]) History of anemia History of posterior vitreous detachment B/L History of asthma "Well controlled" Chronic indwelling Cobb catheter Hydronephrosis of left kidney Diabetes mellitus, type II Diet controlled Overactive bladder HTN (hypertension) GERD (gastroesophageal reflux disease) Hyperlipidemia Hx of vertigo Hx of cancer of uterus 2013- radiation Hx pulmonary embolism Remote hx years ago In setting of prolonged sitting/immobility during a previous hospitalization per records Urinary retention Cobb cath in place Atrial fibrillation Taking Eliquis History of home oxygen therapy not currently custodial resident Resides at [facility] Nontoxic thyroid nodule Hx: UTI (urinary tract infection) Recurrent Hx of sepsis Lipodermatosclerosis Chronic bronchitis 'Bronchial asthma' Acquired lymphedema "Stomach" Gets therapy/massage to manage > was complication after radiation treatment per previous PAT RN notation IBS (irritable bowel syndrome) Surgical History History of anesthesia reaction Awareness with D&C and colonoscopy History of open reduction and internal fixation (ORIF) procedure (06/2023) left femur fx Hx of cystoscopy Multiple; most recent: 04/13/24: MAC without issue History of cataract surgery (2020) R/L History of dilatation and curettage History of esophagogastroduodenoscopy (EGD) History of colonoscopy History of bilateral tubal ligation History of cholecystectomy Hx of hernia repair (12/2017) Ventral hernia with mesh History of tooth extraction History of cardiac cath (02/18/11) @ [facility]--No stents Family History Other No family history of adverse response to anesthesia Social History (Reviewed 08/17/24 @ 13:32 by MILKA Stoner Smoking Status: Never smoker Second Hand Exposure: No; Do You Dip or Chew Tobacco: No; Hx Alcohol Use: No Hx Substance Use: No Preferred Language: Syriac Communication Ability: Effective Communication Ability Comment: alert and oriented x3 - of sound mind to sign consent Visual Impairment: No Limitations Tax Representative Required: Voice Beliefs That Will Affect Care: None Current Living Situation: [facility] Current Living Situation Comment: [place] Feels Safe at Home: Yes Assistive Devices: Wheelchair Review of Systems Review of Systems: As per HPI, all other systems reviewed and negative Physical Exam Physical Exam: GENERAL: comfortable, pleasant, obese, no respiratory distress SKIN: Pallor, warm HEENT: Bespectacled, pale palpebral conjunctivae, no ptosis, dry buccal mucosa NECK : Supple, short neck, no tenderness CHEST : Decreased breath sounds, no tenderness HEART : Irregular, no obvious murmurs ABDOMEN: distention, nontender EXTREMITIES : Bilateral LE swelling , no LE tenderness, no other conspicuous deformities noted NEUROLOGIC : Coherent, no facial asymmetry, gait and stance not assessed Results & Data Results & Data Vital Signs (Past 12 Hours) Vital Signs Temp Pulse Pulse Resp BP BP Pulse Ox 10/22/24 20:01 79 10/22/24 17:39 69 18 130/70 96 10/22/24 15:23 76 20 136/61 93 10/22/24 13:55 84 18 145/79 H 96 10/22/24 13:55 36.8 C 84 18 145/79 H 96 O2 Del Method 10/22/24 20:01 10/22/24 17:39 Room Air 10/22/24 15:23 Room Air 10/22/24 13:55 Room Air 10/22/24 13:55 Room Air Laboratory Results Laboratory Results WBC 8.09 K/ul (4.8-10.8) 10/22/24 16:28 RBC 4.43 M/uL (4.20-5.40) 10/22/24 16:28 Hgb 12.2 g/dl (12.0-16.0) 10/22/24 16:28 Hct 39.1 % (37.0-47.0) 10/22/24 16:28 MCV 88.3 fL (80.0-100.0) 10/22/24 16:28 MCH 27.5 pg (25.0-34.0) 10/22/24 16: MCHC 31.2 g/dL (32.0-36.0) L 10/22/24 16: RDW Std Deviation 50.7 fL (36.4-46.3) H 10/22/24 16: RDW Coeff of Rodolfo 15.6 % (11.5-14.5) H 10/22/24 16: Plt Count 302 K/uL (130-400) 10/22/24 16:28 MPV 9.5 fL (9.4-12.4) 10/22/24 16:28 Immature Gran % (Auto) 0.4 % 10/22/24 16:28 Neut % (Auto) 62.3 % 10/22/24 16:28 Lymph % (Auto) 29.8 % 10/22/24 16:28 [place] % (Auto) 4.9 % 10/22/24 16:28 Eos % (Auto) 2.2 % 10/22/24 16:28 Baso % (Auto) 0.4 % 10/22/24 16:28 Neut # (Auto) 5.04 K/uL (1.40-6.50) 10/22/24 16:28 Lymph # (Auto) 2.41 K/uL (1.20-3.40) 10/22/24 16:28 [place] # (Auto) 0.40 K/uL (0.11-0.59) 10/22/24 16:28 Eos # (Auto) 0.18 K/uL (0.00-0.50) 10/22/24 16:28 Baso # (Auto) 0.03 K/uL (0.00-0.20) 10/22/24 16:28 Immature Gran # (Auto) 0.03 K/uL (0.01-0.20) 10/22/24 16:28 Sodium 138 mmol/L (136-145) 10/22/24 17:43 Potassium 3.8 mmol/L (3.5-5.1) 10/22/24 17:43 Chloride 103 mmol/L (98-107) 10/22/24 16:28 Carbon Dioxide 30 mmol/L (21-32) 10/22/24 16:28 Anion Gap TNP 10/22/24 16:28 BUN 8 mg/dl (6-23) 10/22/24 16:28 Creatinine 0.52 mg/dl (0.6-1.2) L 10/22/24 16:28 Est Cr Clr Drug Dosing 97.7 ml/min 10/22/24 16:28 eGFR 95.04 10/22/24 16:28 BUN/Creatinine Ratio 15.4 (10-20) 10/22/24 16:28 Glucose 106 mg/dl (70-99(Fasting)) H 10/22/24 16:28 Calcium 9.0 mg/dl (8.6-10.3) 10/22/24 16:28 Total Bilirubin 0.5 mg/dl (0.2-1.0) 10/22/24 16:28 AST 7 U/L (13-39) L 10/22/24 17:43 ALT 6 U/L (7-52) L 10/22/24 16:28 Alkaline Phosphatase 116 U/L (34-104) H 10/22/24 16:28 Total Protein 6.8 gm/dl (6.0-8.3) 10/22/24 16:28 Albumin 3.1 gm/dl (3.4-5.0) L 10/22/24 16:28 Globulin 3.7 gm/dl (2.5-4.0) 10/22/24 16:28 Albumin/Globulin Ratio 0.8 (0.9-2) L 10/22/24 16:28 Urine Color [place] 10/22/24 16:42 Urine Appearance Turbid (Clear) A 10/22/24 16:42 Urine pH 6.0 (4.5-7.5) 10/22/24 16:42 Ur Specific [place]inson 1.011 (1.000-1.030) 10/22/24 16:42 Urine Protein 2+ (Negative) H 10/22/24 16:42 Urine Glucose (UA) Negative (Negative) 10/22/24 16:42 Urine Ketones Negative (Negative) 10/22/24 16:42 Urine Blood 3+ (Negative) H 10/22/24 16:42 Urine Nitrite Positive (Negative) A 10/22/24 16:42 Urine Bilirubin Negative (Negative) 10/22/24 16:42 Urine Urobilinogen Negative (Negative) 10/22/24 16:42 Ur Leukocyte Esterase 3+ (Negative) H 10/22/24 16:42 Urine WBC (Auto) >50 /hpf (0-5) H 10/22/24 16:42 Urine RBC (Auto) >20 /hpf (0-2) H 10/22/24 16:42 U Hyaline Cast (Auto) >20 /lpf (0-2) H 10/22/24 16:42 U Epithel Cells (Auto) 6-10 /hpf (0-2) H 10/22/24 16:42 Urine Bacteria (Auto) 4+ (None Seen) H 10/22/24 16:42 Impressions Abdomen/Pelvis CT 10/22/24 16:02 EXAM: CT Abdomen and Pelvis With Intravenous Contrast INDICATION: TECHNIQUE: Axial computed tomography images of the abdomen and pelvis with intravenous contrast. Sagittal and coronal reformatted images were created and reviewed. This CT exam was performed using one or more of the following dose reduction techniques: automated exposure control, adjustment of the mA and/or kV according to patient size, and/or use of iterative reconstruction technique. COMPARISON: No relevant prior studies available. FINDINGS: Limitations: None. Lung bases: Dependent atelectasis present in the lung bases. Pleural space: No visualized pleural effusion or pneumothorax. Heart: Cardiomegaly. No pericardial effusion. Mediastinum: No abnormality noted. ABDOMEN: Liver: No abnormality noted. Gallbladder and bile ducts: Cholecystectomy. No ductal dilation or stone noted. Pancreas: Homogeneous enhancement. No mass, inflammation or ductal dilation. Spleen: No significant abnormality noted. Adrenals: Approximate 1.8 cm right adrenal adenoma. No further assessment required. The left appears normal. Kidneys and ureters: Bilateral renal scarring noted. There is urothelial thickening and nonobstructing stones in the right kidney. There is a left ureteral stent in good position without hydronephrosis. Simple cyst left kidney. No further assessment required. No urinary gas. Stomach and bowel: Moderate stool in the colon particularly in the rectum. Moderate diverticulosis particularly of the left colon. No diverticulitis. PELVIS: Appendix: No findings to suggest acute appendicitis. Bladder: There is air in the urinary bladder which is incompletely distended and appears mildly thickened. No stone noted. Reproductive: No abnormalities noted. ABDOMEN and PELVIS: Intraperitoneal space: No free air. No significant fluid collection. Bones/joints: Left proximal femoral hardware well-seated and intact. The bones are diffusely demineralized. There is compression of L1, L2 and L5 most notably involving L1 most likely chronic. An acute component at L1 is not completely excluded. Soft tissues: There is subcutaneous edema posterior to the left pelvis. Vasculature: Atherosclerotic calcification of the aorta and branches. No aneurysm. Lymph nodes: No pathologically enlarged lymph nodes. IMPRESSION: 1. Bilateral pyelitis and cystitis with adequately positioned left ureteral stent. 2. Nonobstructing right kidney stones. 3. Subcutaneous edema posterior to the left pelvis and gluteus muscles. Correlate clinically for cellulitis. ACT 112: Negative or not required by law. Electronically signed by Kira Cunningham 10-22-2024 5:58 PM
[2024-10-22] MEDS ORDERED: oxyBUTYnin chloride 5 MG TAB PO PRN (20:36)
[2024-10-22] MEDS ORDERED: PROMETHAZINE 6.25 MG/50.25 ML BAG IV PRN (20:37)
[2024-10-22 20:59] LABS: Magnesium 1.9 mg/dl (1.7-2.4)
[2024-10-22] MEDS ORDERED: GLUCOSE 40% GEL 15 GM TUBE PO PRN (21:45)
[2024-10-22] MEDS ORDERED: GLUCAGON FOR INJ 1 MG VIAL SQ PRN (21:45)
[2024-10-22] MEDS ORDERED: CARBOHYDRATES FOR HYPOGLYCEMIA PO PRN (21:45)
[2024-10-22] MEDS: INSULIN ASPART PER UNIT CHARGE SC SCH (21:45)
[2024-10-22] MEDS ORDERED: DEXTROSE 50% 50 ML SYRINGE IV PRN (21:45)
[2024-10-22] MEDS ORDERED: GLUCOSE 10 TAB/TUBE PO PRN (21:45)
--- NOTE | 2024-10-22 22:02 | XRay Report ---
Exam(s): XR CXR 1 VIEW EXAM: XR Chest, 1 View CLINICAL HISTORY: Reason for exam: low o2. TECHNIQUE: Frontal view of the chest. COMPARISON: 08/14/2024 FINDINGS: Lungs: No consolidation. No overt edema. Pleural space: Small left pleural effusion. Heart: Unremarkable. No cardiomegaly. IMPRESSION: Small left pleural effusion. Electronically signed by: Hemanth Washington MD 10/22/24 22:01 PM
[2024-10-22] MEDS: TAMSULOSIN HCL 0.4 MG CAP PO SCH (22:28)
[2024-10-22] MEDS: MIRTAZAPINE TAB 15 MG TAB PO SCH (22:29)
[2024-10-22] MEDS: METOPROLOL SUCC 50MG EXT REL TAB PO SCH (22:29)
[2024-10-22] MEDS: ATORVASTATIN 40 MG TAB PO SCH (22:29)
[2024-10-22] MEDS: APIXABAN 5 MG TABLET PO SCH (22:29)
[2024-10-22] MEDS: PANTOprazole 40 MG TAB PO SCH (22:29)
[2024-10-22] MEDS: DICLOFENAC SOD 1% GEL 100 GM TUBE EXT SCH (23:24)
[2024-10-22] MEDS: DOCUSATE SODIUM 100 MG CAP PO SCH (23:25)
[2024-10-22] MEDS: CEFEPIME 2000MG 2,000 MG/20 ML SYR IV STA (23:25)
[2024-10-22] MEDS: NSS + 20MEQ KCL 20 MEQ/1,000 ML BAG IV STA (23:26)
[2024-10-23] MEDS: CEFEPIME 2000MG 2,000 MG/20 ML SYR IV SCH (06:02)
[2024-10-23] MEDS: MONTELUKAST SODIUM 10 MG TABLET PO SCH (08:33)
[2024-10-23] MEDS: SACCHAROMYCES BOULARDII 250 MG CAP PO SCH (08:34)
[2024-10-23 08:40] LABS: Basophils # (auto) 0.02 K/uL (0.00-0.20); Basophils % (auto) 0.3 %; Eosinophils # (auto) 0.15 K/uL (0.00-0.50); Eosinophils % (auto) 2.1 %; Hematocrit (blood only) 37.4 % (37.0-47.0); Hemoglobin 11.6 g/dl (12.0-16.0); Immature Granulocytes # (auto) 0.03 K/uL (0.01-0.20); Immature Granulocytes % (auto) 0.4 %; Lymphocytes # (auto) 2.29 K/uL (1.20-3.40); Lymphocytes % (auto) 31.5 %; Mean Corpuscular Hemoglobin 27.4 pg (25.0-34.0); Mean Corpuscular Volume 88.2 fL (80.0-100.0); Mean Platelet Volume 9.6 fL (9.4-12.4); Monocytes # (auto) 0.39 K/uL (0.11-0.59); Monocytes % (auto) 5.4 %; Neutrophils % (auto) 60.3 %; Platelet Count 317 K/uL (130-400); RDW Coefficient of Variation 15.7 % (11.5-14.5); RDW Standard Deviation 50.4 fL (36.4-46.3); Red Blood Count 4.24 M/uL (4.20-5.40); White Blood Count 7.28 K/ul (4.8-10.8)
[2024-10-23 08:59] LABS: BUN Creatinine Ratio 15.4 (10-20); Calcium 9.2 mg/dl (8.6-10.3); Creatinine Clr Calc Pharmacy 97.7 ml/min; Potassium 3.7 mmol/L (3.5-5.1)
[2024-10-23] MEDS ORDERED: NON-FORMULARY MEDICATION (Cranberry Extract [Cranberry Concentrate] 500 mg Capsule) PO SCH (09:00)
--- NOTE | 2024-10-23 11:39 | Hospitalist Progress Note ---
Date of Service October 23, 2024 Assessment & Plan (1) Complicated urinary tract infection: Plan Pt is a 79yoF with PMHx significant for history PE DVT/A-fib on Eliquis, valvular heart disease (mild AR/TR), hypertension, hyperlipidemia, pulmonary hypertension, bronchial asthma, DM2 diet-controlled, endometrial cancer status post radiation, recurrent UTIs on chronic methenamine suppression Rx, urge incontinence, chronic indwelling Osorio catheter, urolithiasis, GERD, chronic anemia (baseline hemoglobin of 11), chronic lymphedema, osteoarthritis who presented with concern for abnormal urine. Complicated UTI recurrent UTIs on chronic methenamine suppression Rx/urge incontinence/chronic indwelling Osorio catheter/urolithiasis UA suggestive of infection, urine Cx currently growing E coli and E faecalis No sepsis for now Will continue with IV cefepime for now, question of whether E faecalis is a contaminant ID consulted, appreciate further recs Chronic Medical Problems: history PE DVT/A-fib, rate controlled on Eliquis valvular heart disease (mild AR/TR) hypertension, stable hyperlipidemia, on statin Rx pulmonary hypertension bronchial asthma, not in exacerbation DM2 diet-controlled, well-controlled as of recent hemoglobin A1c of 22 May 2024 endometrial cancer status post radiation chronic anemia, hemoglobin better than baseline chronic lymphedema Diet: HH/DMII DVT prophylaxis. Michael DNR Dispo: PT/OT for further recs Admission and Anticipated Discharge Date Admission Date: October 22, 2024 Subjective patient was seen sitting up in bed States she is surprised that she has an infection Concerned about being transition to hospice or having a palliative care discussion Denying any fevers, chills or night sweats Review of Systems Review of Systems: All systems reviewed & are unremarkable except as noted in Subjective Physical Exam Physical Exam: General: Alert, oriented. No acute distress HEENT: NC/AT CV: RRR Resp: Breath sounds clear bilaterally, no increased effort of breathing Abdomen: Soft, nontender Extremities: No edema in lower extremities bilaterally. Results & Data Results & Data Vital Signs (Past 12 Hours) Vital Signs Temp Pulse Pulse Resp BP Pulse Ox O2 Del Method 10/23/24 08:00 78 20 112/50 L 97 Room Air 10/23/24 07:18 36.8 C 71 16 136/79 94 Room Air Diagnostic Findings Abdomen/Pelvis CT 10/22/24 16:02 EXAM: CT Abdomen and Pelvis With Intravenous Contrast INDICATION: TECHNIQUE: Axial computed tomography images of the abdomen and pelvis with intravenous contrast. Sagittal and coronal reformatted images were created and reviewed. This CT exam was performed using one or more of the following dose reduction techniques: automated exposure control, adjustment of the mA and/or kV according to patient size, and/or use of iterative reconstruction technique. COMPARISON: No relevant prior studies available. FINDINGS: Limitations: None. Lung bases: Dependent atelectasis present in the lung bases. Pleural space: No visualized pleural effusion or pneumothorax. Heart: Cardiomegaly. No pericardial effusion. Mediastinum: No abnormality noted. ABDOMEN: Liver: No abnormality noted. Gallbladder and bile ducts: Cholecystectomy. No ductal dilation or stone noted. Pancreas: Homogeneous enhancement. No mass, inflammation or ductal dilation. Spleen: No significant abnormality noted. Adrenals: Approximate 1.8 cm right adrenal adenoma. No further assessment required. The left appears normal. Kidneys and ureters: Bilateral renal scarring noted. There is urothelial thickening and nonobstructing stones in the right kidney. There is a left ureteral stent in good position without hydronephrosis. Simple cyst left kidney. No further assessment required. No urinary gas. Stomach and bowel: Moderate stool in the colon particularly in the rectum. Moderate diverticulosis particularly of the left colon. No diverticulitis. PELVIS: Appendix: No findings to suggest acute appendicitis. Bladder: There is air in the urinary bladder which is incompletely distended and appears mildly thickened. No stone noted. Reproductive: No abnormalities noted. ABDOMEN and PELVIS: Intraperitoneal space: No free air. No significant fluid collection. Bones/joints: Left proximal femoral hardware well-seated and intact. The bones are diffusely demineralized. There is compression of L1, L2 and L5 most notably involving L1 most likely chronic. An acute component at L1 is not completely excluded. Soft tissues: There is subcutaneous edema posterior to the left pelvis. Vasculature: Atherosclerotic calcification of the aorta and branches. No aneurysm. Lymph nodes: No pathologically enlarged lymph nodes. IMPRESSION: 1. Bilateral pyelitis and cystitis with adequately positioned left ureteral stent. 2. Nonobstructing right kidney stones. 3. Subcutaneous edema posterior to the left pelvis and gluteus muscles. Correlate clinically for cellulitis. ACT 112: Negative or not required by law. Electronically signed by Kira Cunningham 10-22-2024 5:58 PM Chest X-Ray 10/22/24 21:20 Exam(s): XR CXR 1 VIEW EXAM: XR Chest, 1 View CLINICAL HISTORY: Reason for exam: low o2. TECHNIQUE: Frontal view of the chest. COMPARISON: 08/14/2024 FINDINGS: Lungs: No consolidation. No overt edema. Pleural space: Small left pleural effusion. Heart: Unremarkable. No cardiomegaly. IMPRESSION: Small left pleural effusion. Electronically signed by: Hemanth Washington MD 10/22/24 22:01 PM
[2024-10-24] MEDS: FERROUS SULFATE 325 MG TAB PO SCH (09:15)
--- NOTE | 2024-10-24 10:27 | Infectious Disease Consult ---
Date of Service October 24, 2024 Telehealth Information I performed this visit using a real-time telehealth connection between my location and the patients location ([facility]). After connecting through interactive tele-video, patient was identified by name and date of and/or wristband check.Patient (or authorized healthcare cash posting representative) was informed that this was a telemedicine visit and it was being conducted confidentially over secure lines. My office door was closed and no one else was present in the room with me.Patient (or authorized healthcare cash posting representative) provided consent to proceed with the visit, expressed an understanding of privacy and security of the telemedicine visit, and gave permission to have a hospital cash posting representative in the room in order to assist with the visit and to conduct portions of the visit, as needed. I informed the patient (or authorized healthcare cash posting representative) that I reviewed their record and presented the opportunity for them to ask any questions regarding the visit today. The patient agreed to participate. Assessment & Plan (1) Catheter-associated urinary tract infection: (2) Cellulitis of gluteal region: Plan: On physical exam with wound care present this is more consistent with moisture associated dermal rash Plan -Less concern for active urinary tract infection at this time as patient is asymptomatic, afebrile, with normal wbc -Would discontinue cefepime at this time and monitor off antibiotics, if remains stable overnight and tomorrow morning then ok to discharge off therapy -ID will sign off at this time, please feel free to reach out with any other questions or concerns Case Discussed with ID Attending Dr. James Lopez MD PGY-5, Infectious Disease [facility] History of Present Illness History of Present Illness Past medical history: Pulmonary hypertension, chronic indwelling Cobb catheter, hydronephrosis left kidney, L. ureteral stenting, type 2 diabetes mellitus 79-year-old female presenting after feeling something pop inside her bladder, subsequently her chronic indwelling Cobb catheter slipped out. Patient is subsequently transferred to the ED for replacement of her Cobb catheter. Subsequently started on IV antibiotics due to a history of recurrent urinary tract infections. On presentation hemodynamically stable, HR 76, RR 20, on room air. WBC 8.09. Remained afebrile since admission. CT abdomen/pelvis showing bilateral pyelitis and cystitis with adequately positioned left ureteral stent, nonobstructing right-sided kidney stones and some subcutaneous edema posterior left pelvis and gluteal muscles. 10/22 blood culture ngtd, 10/22 urine culture showing E coli R- Cipro/levo I- cefazolin/cefoxitin, Enterococcus faecalis. Patient is started on cefepime. Allergies Allergy/AdvReac Type Severity Reaction Status Date / Time doxycycline Allergy Intermediate Swelling Verified 08/14/24 15:45 tetracycline Allergy Mild Eye Verified 08/14/24 15:45 swelling NARINDER Inhibitors AdvReac Intermediate Cough Verified 08/14/24 15:45 codeine AdvReac Mild [place] Verified 08/14/24 15:45 "crazy" Sulfa (Sulfonamide AdvReac Mild Gastrointestinal Verified 08/14/24 15:45 Antibiotics) Upset Home Medications Medication Instructions Recorded Confirmed Type acetaminophen 500 mg tablet 500 mg PO Q6H PRN Fever Or Pain 06/28/23 10/22/24 History (Tylenol Extra Strength) apixaban 5 mg tablet (Eliquis) 5 mg PO AMHS 06/28/23 10/22/24 History atorvastatin 80 mg tablet 80 mg PO HS 06/28/23 10/22/24 History lansoprazole 30 mg capsule,delayed 30 mg PO BID 06/28/23 10/22/24 History release metoprolol succinate 50 mg 50 mg PO AMHS 06/28/23 10/22/24 History tablet,extended release 24 hr spironolactone 25 mg tablet 25 mg PO QAM 06/28/23 10/22/24 History docusate sodium 100 mg capsule 200 mg PO HS 09/14/23 10/22/24 History (Colace) mirtazapine 15 mg tablet (Remeron) 15 mg PO HS 09/14/23 10/22/24 History ferrous sulfate 325 mg (65 mg 325 mg PO Q OTHER DAY 04/03/24 10/22/24 History iron) tablet,delayed release montelukast 10 mg tablet 10 mg PO QAM 04/03/24 10/22/24 History tamsulosin 0.4 mg capsule 0.4 mg PO HS #30 caps 06/14/24 10/22/24 Rx tramadol 50 mg tablet 50 mg PO Q12H PRN pain #10 tabs 06/14/24 10/22/24 Rx methenamine hippurate 1 gram tablet 1 g PO BID #60 tabs 06/15/24 10/22/24 Rx ascorbic acid (vitamin C) 500 mg 500 mg PO BID 07/10/24 10/22/24 History tablet (Vitamin C) loperamide 2 mg tablet 2 mg PO Q4H PRN Diarrhea 07/10/24 10/22/24 History polyethylene glycol 3350 17 17 g PO DAILY PRN Constipation 07/10/24 10/22/24 History gram/dose oral powder oxybutynin chloride 5 mg tablet 5 mg PO Q8H PRN bladder spasms #30 07/17/24 10/22/24 Rx tabs Saccharomyces boulardii 250 mg 250 mg PO QAM 08/14/24 10/22/24 History capsule (Florastor) cranberry extract 500 mg capsule 500 mg PO QAM 08/14/24 10/22/24 History (Cranberry Concentrate) diclofenac sodium 1 % topical gel 2 g EXT QID Pain 08/14/24 10/22/24 History (Voltaren Arthritis Pain) zinc oxide 20 % topical ointment 1 applic topical BID 08/14/24 10/22/24 History foam bandage 4" X 4" (Optifoam) 10/22/24 10/22/24 History sennosides 8.6 mg tablet (senna) 17.2 mg PO DAILY PRN CONDTIPATION 10/22/24 10/22/24 History Patient History Medical History Obesity Pulmonary hypertension moderate per 06/2023 ECHO (PASP 47mmHg) Skin breakdown sacral skin breakdown per 06/2024 hospitalization; pt to follow with wound care at [facility] 2 or more hospital admissions in past 6 months admitted [facility] 06/08-06/15/24: dx: complicated UTI, chronic indwelling cobb catheter, calculus of L kidney, b/l hydronephrosis. admitted [facility] 06/26- 06/30/24: dx: infection associated with indwelling uteretal stent, hematuria, acute L flank pain: pt D/C on Cefdinir (pt also noted to have sacral skin area breakdown during admission and pt to f/u with wound care at [facility]) History of anemia History of posterior vitreous detachment B/L History of asthma "Well controlled" Chronic indwelling Cobb catheter Hydronephrosis of left kidney Diabetes mellitus, type II Diet controlled Overactive bladder HTN (hypertension) GERD (gastroesophageal reflux disease) Hyperlipidemia Hx of vertigo Hx of cancer of uterus 2014- radiation Hx pulmonary embolism Remote hx years ago In setting of prolonged sitting/immobility during a previous hospitalization per records Urinary retention Cobb cath in place Atrial fibrillation Taking Eliquis History of home oxygen therapy not currently jail resident Resides at [facility] Nontoxic thyroid nodule Hx: UTI (urinary tract infection) Recurrent Hx of sepsis Lipodermatosclerosis Chronic bronchitis 'Bronchial asthma' Acquired lymphedema "Stomach" Gets therapy/massage to manage > was complication after radiation treatment per previous PAT RN notation IBS (irritable bowel syndrome) Surgical History History of anesthesia reaction Awareness with D&C and colonoscopy History of open reduction and internal fixation (ORIF) procedure (06/2023) left femur fx Hx of cystoscopy Multiple; most recent: 04/13/24: MAC without issue History of cataract surgery (2020) R/L History of dilatation and curettage History of esophagogastroduodenoscopy (EGD) History of colonoscopy History of bilateral tubal ligation History of cholecystectomy Hx of hernia repair (12/2017) Ventral hernia with mesh History of tooth extraction History of cardiac cath (02/18/11) @ [facility]--No stents Family History Other No family history of adverse response to anesthesia Social History Smoking Status: Never smoker Second Hand Exposure: No; Do You Dip or Chew Tobacco: No; Hx Alcohol Use: No Hx Substance Use: No Preferred Language: Luxembourgish Communication Ability: Effective Communication Ability Comment: alert and oriented x3 - of sound mind to sign consent Visual Impairment: No Limitations Varnish Mixer Required: No Beliefs That Will Affect Care: None Current Living Situation: [facility] Current Living Situation Comment: [facility] Other Information That Helps Us Care for You: No Feels Safe at Home: Yes Safety Concerns: Feels Safe At This Time Assistive Devices: Hospital Bed Review of Systems Constitutional: No fever or chills Eyes: No pain, drainage, vision change HENT: Negative Cardiovascular: No chest pain, palpitations, lower extremity swelling Respiratory: No shortness of breath, wheezing, cough, sputum production Gastrointestinal: No abdominal pain, nausea/vomiting, indigestion/heartburn : no burning with urination or suprapubic discomfort Skin: No rash, lesions Neurological: No dizziness, weakness, confusion, sensory changes Results & Data Vital Signs (Past 12 Hours) Vital Signs Temp Pulse Resp BP Pulse Ox O2 Del Method 10/24/24 07:42 36.7 C 72 16 125/61 94 Room Air Laboratory Results 10/22 blood culture: no growth to date 10/22 urine culture (straight cath) E coli R-Cipro/levo I- cefazolin/cefoxitin, Enterococcus faecalis 10/22/24 10/22/24 10/22/24 16:28 16:42 17:43 WBC 8.09 RBC 4.43 Hgb 12.2 Hct 39.1 MCV 88.3 MCH 27.5 MCHC 31.2 L RDW Std Deviation 50.7 H RDW Coeff of Rodolfo 15.6 H Plt Count 302 MPV 9.5 Immature Gran % (Auto) 0.4 Neut % (Auto) 62.3 Lymph % (Auto) 29.8 [place] % (Auto) 4.9 Eos % (Auto) 2.2 Baso % (Auto) 0.4 Neut # (Auto) 5.04 Lymph # (Auto) 2.41 [place] # (Auto) 0.40 Eos # (Auto) 0.18 Baso # (Auto) 0.03 Immature Gran # (Auto) 0.03 Sodium TNP 138 Potassium TNP 3.8 Chloride 103 Carbon Dioxide 30 Anion Gap TNP BUN 8 Creatinine 0.52 L Est Cr Clr Drug Dosing 97.7 eGFR 95.04 BUN/Creatinine Ratio 15.4 Glucose 106 H POC Glucose Calcium 9.0 Magnesium 1.9 Total Bilirubin 0.5 AST TNP 7 L ALT 6 L Alkaline Phosphatase 116 H Total Protein 6.8 Albumin 3.1 L Globulin 3.7 Albumin/Globulin Ratio 0.8 L Urine Color [place] Urine Appearance Turbid A Urine pH 6.0 Ur Specific [place] 1.011 Urine Protein 2+ H Urine Glucose (UA) Negative Urine Ketones Negative Urine Blood 3+ H Urine Nitrite Positive A Urine Bilirubin Negative Urine Urobilinogen Negative Ur Leukocyte Esterase 3+ H Urine WBC (Auto) >50 H Urine RBC (Auto) >20 H U Hyaline Cast (Auto) >20 H U Epithel Cells (Auto) 6-10 H Urine Bacteria (Auto) 4+ H Nasal Screen MRSA (PCR) 10/23/24 10/23/24 10/23/24 05:34 08:06 08:36 WBC 7.28 RBC 4.24 Hgb 11.6 L Hct 37.4 MCV 88.2 MCH 27.4 MCHC 31.0 L RDW Std Deviation 50.4 H RDW Coeff of Rodolfo 15.7 H Plt Count 317 MPV 9.6 Immature Gran % (Auto) 0.4 Neut % (Auto) 60.3 Lymph % (Auto) 31.5 [place] % (Auto) 5.4 Eos % (Auto) 2.1 Baso % (Auto) 0.3 Neut # (Auto) 4.40 Lymph # (Auto) 2.29 [place] # (Auto) 0.39 Eos # (Auto) 0.15 Baso # (Auto) 0.02 Immature Gran # (Auto) 0.03 Sodium 139 Potassium 3.7 Chloride 105 Carbon Dioxide 30 Anion Gap 4 BUN 8 Creatinine 0.52 L Est Cr Clr Drug Dosing 97.7 eGFR 95.04 BUN/Creatinine Ratio 15.4 Glucose 100 H POC Glucose 123 H Calcium 9.2 Magnesium Total Bilirubin AST ALT Alkaline Phosphatase Total Protein Albumin Globulin Albumin/Globulin Ratio Urine Color Urine Appearance Urine pH Ur Specific [place] Urine Protein Urine Glucose (UA) Urine Ketones Urine Blood Urine Nitrite Urine Bilirubin Urine Urobilinogen Ur Leukocyte Esterase Urine WBC (Auto) Urine RBC (Auto) U Hyaline Cast (Auto) U Epithel Cells (Auto) Urine Bacteria (Auto) Nasal Screen MRSA (PCR) Negative Diagnostic Findings Laboratory Results WBC 7.28 K/ul (4.8-10.8) 10/23/24 08:06 RBC 4.24 M/uL (4.20-5.40) 10/23/24 08:06 Hgb 11.6 g/dl (12.0-16.0) L 10/23/24 08:06 Hct 37.4 % (37.0-47.0) 10/23/24 08:06 MCV 88.2 fL (80.0-100.0) 10/23/24 08:06 MCH 27.4 pg (25.0-34.0) 10/23/24 08:06 MCHC 31.0 g/dL (32.0-36.0) L 10/23/24 08:06 RDW Std Deviation 50.4 fL (36.4-46.3) H 10/23/24 08:06 RDW Coeff of Rodolfo 15.7 % (11.5-14.5) H 10/23/24 08:06 Plt Count 317 K/uL (130-400) 10/23/24 08:06 MPV 9.6 fL (9.4-12.4) 10/23/24 08:06 Immature Gran % (Auto) 0.4 % 10/23/24 08:06 Neut % (Auto) 60.3 % 10/23/24 08:06 Lymph % (Auto) 31.5 % 10/23/24 08:06 [place] % (Auto) 5.4 % 10/23/24 08:06 Eos % (Auto) 2.1 % 10/23/24 08:06 Baso % (Auto) 0.3 % 10/23/24 08:06 Neut # (Auto) 4.40 K/uL (1.40-6.50) 10/23/24 08:06 Lymph # (Auto) 2.29 K/uL (1.20-3.40) 10/23/24 08:06 [place] # (Auto) 0.39 K/uL (0.11-0.59) 10/23/24 08:06 Eos # (Auto) 0.15 K/uL (0.00-0.50) 10/23/24 08:06 Baso # (Auto) 0.02 K/uL (0.00-0.20) 10/23/24 08:06 Immature Gran # (Auto) 0.03 K/uL (0.01-0.20) 10/23/24 08:06 Sodium 139 mmol/L (136-145) 10/23/24 08:06 Potassium 3.7 mmol/L (3.5-5.1) 10/23/24 08:06 Chloride 105 mmol/L (98-107) 10/23/24 08:06 Carbon Dioxide 30 mmol/L (21-32) 10/23/24 08:06 Anion Gap 4 (3-11) 10/23/24 08:06 BUN 8 mg/dl (6-23) 10/23/24 08:06 Creatinine 0.52 mg/dl (0.6-1.2) L 10/23/24 08:06 Est Cr Clr Drug Dosing 97.7 ml/min 10/23/24 08:06 eGFR 95.04 10/23/24 08:06 BUN/Creatinine Ratio 15.4 (10-20) 10/23/24 08:06 Glucose 100 mg/dl (70-99(Fasting)) H 10/23/24 08:06 POC Glucose 123 mg/dl (70-99) H 10/23/24 08:36 Calcium 9.2 mg/dl (8.6-10.3) 10/23/24 08:06 Magnesium 1.9 mg/dl (1.7-2.4) 10/22/24 17:43 Total Bilirubin 0.5 mg/dl (0.2-1.0) 10/22/24 16:28 AST 7 U/L (13-39) L 10/22/24 17:43 ALT 6 U/L (7-52) L 10/22/24 16:28 Alkaline Phosphatase 116 U/L (34-104) H 10/22/24 16:28 Total Protein 6.8 gm/dl (6.0-8.3) 10/22/24 16:28 Albumin 3.1 gm/dl (3.4-5.0) L 10/22/24 16:28 Globulin 3.7 gm/dl (2.5-4.0) 10/22/24 16:28 Albumin/Globulin Ratio 0.8 (0.9-2) L 10/22/24 16:28 Urine Color [place] 10/22/24 16:42 Urine Appearance Turbid (Clear) A 10/22/24 16:42 Urine pH 6.0 (4.5-7.5) 10/22/24 16:42 Ur Specific [place] 1.011 (1.000-1.030) 10/22/24 16:42 Urine Protein 2+ (Negative) H 10/22/24 16:42 Urine Glucose (UA) Negative (Negative) 10/22/24 16:42 Urine Ketones Negative (Negative) 10/22/24 16:42 Urine Blood 3+ (Negative) H 10/22/24 16:42 Urine Nitrite Positive (Negative) A 10/22/24 16:42 Urine Bilirubin Negative (Negative) 10/22/24 16:42 Urine Urobilinogen Negative (Negative) 10/22/24 16:42 Ur Leukocyte Esterase 3+ (Negative) H 10/22/24 16:42 Urine WBC (Auto) >50 /hpf (0-5) H 10/22/24 16:42 Urine RBC (Auto) >20 /hpf (0-2) H 10/22/24 16:42 U Hyaline Cast (Auto) >20 /lpf (0-2) H 10/22/24 16:42 U Epithel Cells (Auto) 6-10 /hpf (0-2) H 10/22/24 16:42 Urine Bacteria (Auto) 4+ (None Seen) H 10/22/24 16:42 Nasal Screen MRSA (PCR) Negative (Negative) 10/23/24 05:34 Impressions Abdomen/Pelvis CT 10/22/24 16:02 EXAM: CT Abdomen and Pelvis With Intravenous Contrast Kidneys and ureters: Bilateral renal scarring noted. There is urothelial thickening and nonobstructing stones in the right kidney. There is a left ureteral stent in good position without hydronephrosis. Simple cyst left kidney. No further assessment required. No urinary gas. Bladder: There is air in the urinary bladder which is incompletely distended and appears mildly thickened. No stone noted. Bones/joints: Left proximal femoral hardware well-seated and intact. The bones are diffusely demineralized. There is compression of L1, L2 and L5 most notably involving L1 most likely chronic. An acute component at L1 is not completely excluded. IMPRESSION: 1. Bilateral pyelitis and cystitis with adequately positioned left ureteral stent. 2. Nonobstructing right kidney stones. 3. Subcutaneous edema posterior to the left pelvis and gluteus muscles. Correlate clinically for cellulitis. Chest X-Ray 10/22/24 21:20 Exam(s): XR CXR 1 VIEW EXAM: XR Chest, 1 View CLINICAL HISTORY: Reason for exam: low o2. TECHNIQUE: Frontal view of the chest. COMPARISON: 08/14/2024 FINDINGS: Lungs: No consolidation. No overt edema. Pleural space: Small left pleural effusion. Heart: Unremarkable. No cardiomegaly. IMPRESSION: Small left pleural effusion. Electronically signed by: Hemanth Washington MD 10/22/24 22:01 PM
[2024-10-24 11:12] LABS: Basophils # (auto) 0.02 K/uL (0.00-0.20); Basophils % (auto) 0.3 %; Eosinophils # (auto) 0.18 K/uL (0.00-0.50); Eosinophils % (auto) 2.4 %; Hematocrit (blood only) 36.2 % (37.0-47.0); Hemoglobin 11.4 g/dl (12.0-16.0); Immature Granulocytes # (auto) 0.03 K/uL (0.01-0.20); Immature Granulocytes % (auto) 0.4 %; Lymphocytes # (auto) 2.33 K/uL (1.20-3.40); Lymphocytes % (auto) 30.5 %; Mean Corpuscular Hemoglobin 27.9 pg (25.0-34.0); Mean Corpuscular Hgb Conc 31.5 g/dL (32.0-36.0); Mean Corpuscular Volume 88.5 fL (80.0-100.0); Mean Platelet Volume 9.7 fL (9.4-12.4); Monocytes # (auto) 0.42 K/uL (0.11-0.59); Monocytes % (auto) 5.5 %; Neutrophils # (auto) 4.67 K/uL (1.40-6.50); Neutrophils % (auto) 60.9 %; Platelet Count 285 K/uL (130-400); RDW Coefficient of Variation 15.7 % (11.5-14.5); RDW Standard Deviation 51.1 fL (36.4-46.3); Red Blood Count 4.09 M/uL (4.20-5.40); White Blood Count 7.65 K/ul (4.8-10.8)
[2024-10-24 11:28] LABS: BUN Creatinine Ratio 19.7 (10-20); Calcium 9.1 mg/dl (8.6-10.3); Creatinine Clr Calc Pharmacy 83.3 ml/min; Potassium 3.9 mmol/L (3.5-5.1)
--- NOTE | 2024-10-24 12:06 | Hospitalist Progress Note ---
Date of Service October 24, 2024 Assessment & Plan (1) Complicated urinary tract infection: Plan Pt is a 79yoF with PMHx significant for history PE DVT/A-fib on Eliquis, valvular heart disease (mild AR/TR), hypertension, hyperlipidemia, pulmonary hypertension, bronchial asthma, DM2 diet-controlled, endometrial cancer status post radiation, recurrent UTIs on chronic methenamine suppression Rx, urge incontinence, chronic indwelling Osorio catheter, urolithiasis, GERD, chronic anemia (baseline hemoglobin of 11), chronic lymphedema, osteoarthritis who presented with concern for abnormal urine. CAUTI (Catheter Associated UTI) recurrent UTIs on chronic methenamine suppression Rx/urge incontinence/chronic indwelling Osorio catheter/urolithiasis UA suggestive of infection, urine Cx currently growing E coli and E faecalis Blood Cx NGTD No sepsis for now Will continue with IV cefepime for now, question of whether E faecalis is a contaminant or needs to be treated ID consulted, appreciate further recs Gluetal cellulitis Bilateral gluteal pressure ulcer POA Sacral pressure ulcer POA Wound care consulted, appreciate further recs On IV Cefepime above Chronic Medical Problems: history PE DVT/A-fib, rate controlled on Eliquis valvular heart disease (mild AR/TR) hypertension, stable hyperlipidemia, on statin Rx pulmonary hypertension bronchial asthma, not in exacerbation DM2 diet-controlled, well-controlled as of recent hemoglobin A1c of 22 May 2024 endometrial cancer status post radiation chronic anemia, hemoglobin better than baseline chronic lymphedema Diet: HH/DMII DVT prophylaxis. Eliquis DNR Dispo: PT/OT for further recs Admission and Anticipated Discharge Date Admission Date: October 22, 2024 Subjective pt was seen sitting up in bed nursing at bedside Questions about "cellulitis of her kidneys" Otherwise denies acute concerns Review of Systems Review of Systems: All systems reviewed & are unremarkable except as noted in Subjective Physical Exam Physical Exam: General: Alert, oriented. No acute distress HEENT: NC/AT CV: RRR Resp: Breath sounds clear bilaterally, no increased effort of breathing Abdomen: Soft, nontender Extremities: No edema in lower extremities bilaterally. Results & Data Results & Data Vital Signs (Past 12 Hours) Vital Signs Temp Pulse Resp BP Pulse Ox O2 Del Method 10/24/24 11:38 36.9 C 79 15 120/55 L 97 Room Air 10/24/24 07:42 36.7 C 72 16 125/61 94 Room Air
[2024-10-24] MEDS: ACETAMINOPHEN 325 MG TAB PO PRN (14:02)
[2024-10-24] MEDS: oxyCODONE HCL IR 5 MG TAB (IMMEDIATE RELEASE) PO PRN (18:34)
[2024-10-24 19:55] VITALS: RESP 18
[2024-10-24] MEDS: MICONAZOLE NITRATE POWDER 85 GM EXT SCH (20:01)
[2024-10-25 07:23] VITALS: BP 124/67; PULSE 64; TEMP 97.7; O2SAT 96
[2024-10-25 08:12] LABS: Basophils # (auto) 0.04 K/uL (0.00-0.20); Basophils % (auto) 0.6 %; Eosinophils # (auto) 0.23 K/uL (0.00-0.50); Eosinophils % (auto) 3.2 %; Hematocrit (blood only) 35.2 % (37.0-47.0); Hemoglobin 10.9 g/dl (12.0-16.0); Immature Granulocytes # (auto) 0.06 K/uL (0.01-0.20); Immature Granulocytes % (auto) 0.8 %; Lymphocytes # (auto) 2.18 K/uL (1.20-3.40); Lymphocytes % (auto) 30.4 %; Mean Corpuscular Hemoglobin 27.5 pg (25.0-34.0); Mean Corpuscular Volume 88.9 fL (80.0-100.0); Mean Platelet Volume 9.7 fL (9.4-12.4); Monocytes # (auto) 0.45 K/uL (0.11-0.59); Monocytes % (auto) 6.3 %; Neutrophils # (auto) 4.22 K/uL (1.40-6.50); Neutrophils % (auto) 58.7 %; Platelet Count 279 K/uL (130-400); RDW Coefficient of Variation 15.7 % (11.5-14.5); RDW Standard Deviation 51.3 fL (36.4-46.3); Red Blood Count 3.96 M/uL (4.20-5.40); White Blood Count 7.18 K/ul (4.8-10.8)
[2024-10-25 08:38] LABS: BUN Creatinine Ratio 22.8 (10-20); Creatinine Clr Calc Pharmacy 89.1 ml/min; Potassium 4.1 mmol/L (3.5-5.1)
--- NOTE | 2024-10-25 17:20 | Discharge Summary ---
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 CAUTI (Catheter Associated UTI) -recurrent UTIs on chronic methenamine suppression Rx/urge incontinence/chronic indwelling Osorio catheter/urolithiasis -UA suggestive of infection, urine Cx currently growing E coli and E faecalis -Blood Cx NGTD -No sepsis for now -per ID, no further abx needed as not active infection Gluetal cellulitis Bilateral gluteal pressure ulcer POA Sacral pressure ulcer POA -Wound care consulted, appreciate further recs Chronic Medical Problems: history PE DVT/A-fib, rate controlled on Eliquis valvular heart disease (mild AR/TR) hypertension, stable hyperlipidemia, on statin Rx pulmonary hypertension bronchial asthma, not in exacerbation DM2 diet-controlled, well-controlled as of recent hemoglobin A1c of 22 May 2024 endometrial cancer status post radiation chronic anemia, hemoglobin better than baseline chronic lymphedema Notes For Next Care Provider Pt is a 79yoF with PMHx significant for history 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 In the ED, noted to have blown out balloon and urinary catheter, admitted to medicine for further workup. On medicine, infectious disease was consulted, recommended stopping antibiotics is not an active infection. Discussed with patient these results, and discussed signs and symptoms of UTI (burning with urination, frequency). patient hemodynamically stable and medically ready for discharge. Also discussed patient underlying depression, discussed increasing her mirtazapine and taking it in the morning as it is a more activating dose. Medication Changes From Visit -increased mirtazapine, change to morning Admission HPI Per Admitting Provider History obtained from patient and records. 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 Last confinement August 2024 for E. coli septicemia secondary to catheter associated UTI. Patient completed IV ceftriaxone course. IV cefepime administered at the ER. Patient felt something pop inside her bladder. Patient's catheter later fell out with deflated balloon. Patient urine noted to be malodorous. Patient denies abdominal or flank pain or hematuria symptoms. Denies headache, chest pain, SOB. Osorio catheter replaced at the ER. IV ceftriaxone administered. MEDICAL HISTORY: As above. SURGICAL HISTORY: Bilateral tubal ligation, cholecystectomy, appendectomy, D&C, urologic procedures, femoral fracture surgery, urologic procedures FAMILY HISTORY: Heart disease, COPD. PERSONAL SOCIAL HISTORY: Nonsmoker, no chronic intake of alcoholic beverages. 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 External ears normal. No rhinorrhea. Moist mucous membranes. Neck: Supple, full range of motion, no observable masses, No meningeal sign. Lungs: No Respiratory distress. CV: RRR, no edema. Abdomen: Soft, nondistended, No rebound tenderness. MSK: No joint swelling, no redness. Skin: No rashes, petechiae, lesions. Normal color per patient. Neuro: Normal Gait, Grossly intact. Psych: Appropriate for situation. Updated Medication List Medication Instructions Recorded Confirmed Type acetaminophen 500 mg tablet 500 mg PO Q6H PRN Fever Or Pain 06/28/23 10/22/24 History (Tylenol Extra Strength) apixaban 5 mg tablet (Eliquis) 5 mg PO AMHS 06/28/23 10/22/24 History atorvastatin 80 mg tablet 80 mg PO HS 06/28/23 10/22/24 History lansoprazole 30 mg capsule,delayed 30 mg PO BID 06/28/23 10/22/24 History release metoprolol succinate 50 mg 50 mg PO AMHS 06/28/23 10/22/24 History tablet,extended release 24 hr spironolactone 25 mg tablet 25 mg PO QAM 06/28/23 10/22/24 History docusate sodium 100 mg capsule 200 mg PO HS 09/14/23 10/22/24 History (Colace) ferrous sulfate 325 mg (65 mg 325 mg PO Q OTHER DAY 04/03/24 10/22/24 History iron) tablet,delayed release montelukast 10 mg tablet 10 mg PO QAM 04/03/24 10/22/24 History tamsulosin 0.4 mg capsule 0.4 mg PO HS #30 caps 06/14/24 10/22/24 Rx tramadol 50 mg tablet 50 mg PO Q12H PRN pain #10 tabs 06/14/24 10/22/24 Rx methenamine hippurate 1 gram tablet 1 g PO BID #60 tabs 06/15/24 10/22/24 Rx ascorbic acid (vitamin C) 500 mg 500 mg PO BID 07/10/24 10/22/24 History tablet (Vitamin C) loperamide 2 mg tablet 2 mg PO Q4H PRN Diarrhea 07/10/24 10/22/24 History polyethylene glycol 3350 17 17 g PO DAILY PRN Constipation 07/10/24 10/22/24 History gram/dose oral powder oxybutynin chloride 5 mg tablet 5 mg PO Q8H PRN bladder spasms #30 07/17/24 10/22/24 Rx tabs Saccharomyces boulardii 250 mg 250 mg PO QAM 08/14/24 10/22/24 History capsule (Florastor) cranberry extract 500 mg capsule 500 mg PO QAM 08/14/24 10/22/24 History (Cranberry Concentrate) diclofenac sodium 1 % topical gel 2 g EXT QID Pain 08/14/24 10/22/24 History (Voltaren Arthritis Pain) zinc oxide 20 % topical ointment 1 applic topical BID 08/14/24 10/22/24 History sennosides 8.6 mg tablet (senna) 17.2 mg PO DAILY PRN CONDTIPATION 10/22/24 10/22/24 History mirtazapine 15 mg tablet 22.5 mg (1.5 x 15 mg) PO AMHS #60 10/25/24 Rx tabs Hospital Stay Data Consultations 10/22/24 19:19 ED Decision to Admit Stat 10/23/24 16:02 Consult Infectious Diseases Routine Diagnostic Imagining Performed 10/22/24 16:02 CT abd pelvis IV con only Stat Discharge Instructions Given to Patient (Per Discharging Provider) 1. Increased dose of mirtazapine for depression, please take in morning as it is more activating at this dose rather than sleepy. 2. Follow up with ID and urology. Total Time Total Time Spent Total Time Spent (In Minutes): I spent a total of 45 minutes in direct patient care, including [id number] time with the patient and/or family, reviewing medical records, ordering and reviewing diagnostic tests, and coordinating care with other healthcare providers. This time includes: history taking, physical examination, medical decision making, counseling, ECG interpretation, imaging interpretation, lab interpretation, orders, and education, excluding time spent in the performance of separately billed services.
== END 2024-10-25 15:05 | DRG 699 ==
LOC: ED 13:41 → 3W 20:03 → INTOOBSV 20:03 → SUATTDRO 20:03 → 3W 21:46

== ENCOUNTER 2024-12-17 18:25 | Inpatient (IN) ==
--- OUTSIDE RECORDS SUMMARY | 2024-12-17 18:29 | External Medical Summary | Summary of Care ---
Author Name Unknown Organization [facility] Address [address] [place] [address] Phone [phone] Care Team Providers Care Jewel Setter Name Role Phone Pavan Mckeon MD Primary Care Provider [phone] Reason for Visit * Reason Onset Date Comments Nurse Documentation 12/13/2024 Encounter Details Date Type Department Care Team (Late st Contact Info) Description 12/13/2024 Telephone [facility] [address] [facility] [place] [address] Pavan Mckeon MD [address], [place] [id number] Nurse Documentation Allergies Active Allergy Reactions Criticality Noted Date Comments Chas Inhibitors 11/01/2007 cough Doxycycline 02/18/1999 eyes swollen Sulfa Antibiotics 02/18/1999 wierd documented as of this encounter (statuses as of 12/13/2024) Medications Meclizine HCl 25 MG Oral Tablet (Antivert) Take 1 Tablet by mouth 3 times a day as needed for Dizziness. 30 Tablet 1 3 Active Ipratropium-Albu terol 0.5-2.5 (3) MG/3ML Inhalation Solution (Duoneb) Inhale 3 mL via nebulizer every 6 hours as needed (SOB/wheezing). 3 Active Ondansetron HCl 4 MG Oral [...] needed for Heartburn. 60 Tablet 4 Active Cranberry 400 MG Oral CapsuleIndicatio [...] and 2 g before bedtime. 4 Active Nystatin 194251 UNIT/GM External Cream Apply 1 Application topically [...] *MOOD DISORDER* 28 Tablet 5 4 Active Docusate Sodium 100 MG Oral Capsule (Colace)Indicati ons:Slow transit constipation Take 2 Capsules by mouth every night at bedtime. 180 Capsule 3 4 Active Methenamine Hippurate 1 GM Oral [...] mouth every other day. 45 Tablet 3 4 Active Zinc Oxide 20 % External Ointment Apply 1 g topically to affected area in the morning and 1 g in the evening. To affected area.. 60 g 3 4 Active Optifoam 4"X4" Pad Apply topically to affected area 2 times a day. 60 Each 3 4 Active Senna 8.6 MG Oral CapsuleIndicatio ns:Slow transit constipation Take 2 cap at night for 3 days and then as needed for constipation 60 Capsule 4 Active Tamsulosin HCl 0.4 MG Oral Capsule (Flomax) Take 1 Capsule by mouth every night at bedtime. 90 Capsule 3 5 Active Sucralfate 1 GM Oral Tablet (Carafate)Indica tions:Gastroesop hageal reflux disease with esophagitis, unspecified whether hemorrhage Discontinue sucralfate 120 Tablet 10 5 Active Phenazopyridine HCl 200 MG Oral Tablet (Pyridium)Indica tions:Recurrent UTI Discontinue pyridium 10 Tablet 5 Active Lansoprazole 30 MG Oral Capsule Delayed Release (Prevacid)Indica tions:Gastroesop hageal reflux disease with esophagitis, unspecified whether hemorrhage TAKE ONE CAPSULE BY MOUTH TWICE DAILY. *GERD* 56 Capsule 8 5 Active Montelukast Sodium 10 MG Oral Tablet (Singulair) TAKE ONE TAB BY MOUTH DAILY FOR ALLERGIES 28 Tablet 8 5 Active Metoprolol Succinate ER 50 MG Oral Tablet Extended Release 24 Hour (toPROL XL)Indications:P aroxysmal atrial fibrillation (HCC),HTN, goal below 130/80 TAKE 1 TABLET BY MOUTH TWICE DAILY *HYPERTENSION* 56 Tablet 11 5 Active Spironolactone 25 MG Oral Tablet (Aldactone)Indic ations:HTN, goal below 130/80 TAKE ONE TABLET BY MOUTH DAILY *HTN* 28 Tablet 11 5 Active documented as of this encounter (statuses as of 12/13/2024) Active Problems Problem Noted Date Diagnosed Date [...] as of this encounter (statuses as of 12/13/2024) Resolved Problems Problem Noted Date Diagnosed Date [...] Overview (01/07/2016): ICD-10 update of inactive term instructor hairspring current use of ant icoagulant therapy 03/17/2011 [...] as of this encounter (statuses as of 12/13/2024) Immunizations Name Administration Dates Next Due Pneumococcal [...] older, IM (Adacel) 03/26/2011 Varicella Zoster Vaccine Ranulfo lt (Zostavax) 06/29/2012 documented as of this encounter Social [...] Not on file Not on file 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 (15 years old or [...] Encounter - Mirian Diana MED ASSIST - 12/13/2024 1:12 PM EDT Received Fax for BFPROVIDERS: Dr. Pavan Mckeon ORDER received from [facility] FAXED documented in this encounter Plan of Treatment Health Maintenance Due Date Last Done Comments DXA Scan 1945 Depression Monitoring 1958 Zoster Vaccines (2 of 3) 08/24/2012 06/29/2012 DTap/Tdap Vaccines (2 - Td or Tdap) 03/26/2021 03/26/2011, 04/02/2000 Diabetic Eye Exam 07/29/2021 07/29/2020, , 06/27/2018, Additional history exists Adult Wellness Visit 05/25/2023 05/25/2022 Albumin/Creatinine Ratio 04/15/2024 08/2 023, 08/25/2019, 02/01/2019, Additional history exists COVID-19 Vaccine ( season) 2024 09/01/2021, 03/05/2021, 02/11/2021, Additional history exists Diabetic Foot Exam 11/22/2024 11/23/2023, 0 02/26/2020, 02/01/2019, Additional history exists HbA1c 04/25/2025 10/26/2024, 11/11, 04/15/2023, Additional history exists GFR 10/26/2025 10/26/2024, 06/13, 11/23/2023, Additional history exists Pneumococcal Vaccine: 50+ Years [...] on patient's age to complete this topic Meningitis B Vaccine (Bexsero/Trumemba) Aged Out No longer eligible based on patient's age to complete this topic documented as of this encounter Medical Devices Not on filedocumented as of this encounter Advance Directives * Full Code (Latest Code Status on File) Date Activated Date Inactivated Comments 07/24/2014 7:59 AM 07/26/2014 10:17 PM This orde r reflects the patients wishes and were consensually agreed upon. Care Teams Jewel Setter Relationship Specialty Start Date End Date Pavan Mckeon MD [address] [id number] PCP - General Family Medicine 09/28/24 documented as of this encounter
--- NOTE | 2024-12-17 18:42 | Emergency Department Note ---
Impression & Plan Complicated urinary tract infection, Pyelitis, Abdominal pain, LLQ ED Provider Note NAME: NAKIA CESPEDES AGE: 79 SEX: F : 1945 ARRIVES VIA: Ambulance INFORMANT: Patient, EMS/nursing report ED PROVIDER(S): Horacio Welsh MD CHIEF COMPLAINT: Left lower quadrant pain MEDICAL DECISION MAKING: Patient presented due to concern for left-sided abdominal pain. IV was established and blood work was obtained. Sepsis protocols initiated as the patient did have a low-grade oral temperature of 99.3 time of arrival. Did review the patient's prior cultures that showed Enterococcus faecalis and E. coli sensitive to IV ampicillin. Patient was ordered 1 L of IV fluids. Next Patient with a white count of 11 with a normal H&H. Platelet count is unremarkable with normal kidney function. The patient did go to CT. Lactate normal. Patient's urinalysis does show concern for infection. Patient CT does show left ureteral stent with pyelitis. Given these concerns and her prior history of infection I did speak the on-call hospitalist service Dr. Cornelius and the patient was admitted to medicine service. Discussion w/ other healthcare providers: Dr. Cornelius inpatient medicine service Prior /Outside records reviewed: Reviewed part of a urology visit note from October 30, 2024 from Jessica Jimenez. No history of chronic indwelling Cobb ureteral stents prior history of enterococcal bacteremia and nephrolithiasis. Reportedly patient's prior infections have resulted in sepsis requiring ICU stay as recent as August. Patient did undergo 2 left ureteral stent exchanges for left-sided hydronephrosis which is improved since placement of the stent. Patient currently on methenamine and cranberry supplementation. Prior telephone note from November 2024 showed the patient did have an IM nail for left femoral fracture back in June 2023 but chronic indwelling Cobb as the patient has inability to transfer or bear weight. Differential diagnosis: Appendicitis, ovarian cyst, ovarian torsion, ectopic , TOA, PID, diverticulitis, UTI, obstruction, inflammatory bowel disease, renal colic, PUD, pancreatitis, biliary pathology, hernia, volvulus, constipation, as well as other pathologies were considered. Diagnostics, as interpreted by me: ECG: A-fib, rate of 91, normal QRS duration, normal axis, no obvious STEMI . Cardiac monitoring: An order was placed for continuous cardiac monitoring. The monitor shows a rate of 79 with irregular irregular rhythm. Patient was placed on pulse oximetry Medical decision rules: None Imaging studies: I informally interpreted the patient's Chest x-ray does not show obvious pneumonia, cardiomegaly noted, with formal report to follow. HPI: Patient presents due to concern for left lower quadrant pain. The patient is a resident at [facility]. Reportedly does have a ureteral stent as well as a chronic indwelling Cobb catheter and is susceptible to UTIs. Patient states that her pain began about 2 days ago. Patient denies any chest pains or shortness of breath. The patient has felt occasionally warm but no reported fevers. Patient's oral temp here in the department was 99 6. Patient denies any chest pains. Patient reportedly does have a prior history of a hip fracture that did not get repaired per patient. Patient states that she has had bowel movements no reported blood. Patient also does have a prior history of prior kidney stones. PAST MEDICAL HISTORY: See Below PAST SURGICAL HISTORY: See Below SOCIAL HISTORY: See Below HOME MEDICATIONS: See Below ALLERGIES: See Below VITALS: See Below PHYSICAL EXAMINATION: GENERAL: NAD, non-toxic. Wearing glasses. BMI 36. EYE EXAM: Normal conjunctiva. PERRL, no anisocoria and EOM's grossly intact w/o pain. OROPHARYNX: Moist mucus membranes, grossly normal dentition. NECK: Trachea midline, no stridor. Supple, no nuchal rigidity, no adenopathy, non-tender. No signs of meningismus. FROM of the neck with good chin to chest and neck extension. LUNGS: Clear to auscultation. Normal chest wall mechanics. HEART: Regular irregular, no MRG. ABDOMEN: Abdomen soft, epigastric and left lower quadrant pain, no right-sided pain, no masses, no rebound or guarding. BACK: No CVA TTP. : Indwelling catheter noted with blood-tinged urine. SKIN: No rashes and no bruising. UPPER EXTREMITIES: Upper extremities are grossly normal. LOWER EXTREMITIES: Grossly normal, no edema. NEURO EXAM: A&O x3, cranial nerves II-XII grossly intact, normal speech, moves all 4 extremities. Past Med/Surg History Problem List (Updated 12/17/24 @ 21:50 by Horacio Welsh MD) Abdominal pain, LLQ (Acute) Pyelitis (Acute) Recurrent UTI Enterococcal bacteremia Cellulitis of gluteal region (Acute) Cystitis (Acute) Chronic indwelling Cobb catheter (Acute) Acute pyelitis (Acute) Ureteral stent present Catheter-associated urinary tract infection E coli bacteremia Septic shock Elevated troponin (Acute) Severe sepsis (Acute) Acute metabolic encephalopathy Demand ischemia of myocardium Acute renal failure superimposed on chronic kidney disease Severe sepsis with acute organ dysfunction due to Gram negative bacteria Sacral back pain Infection associated with indwelling ureteral stent (Acute) Hematuria (Acute) Complicated urinary tract infection (Acute) Protein malnutrition Bilateral hydronephrosis Chronic indwelling Cobb catheter (Acute) Nephrolithiasis Urinary retention Calculus of left kidney Morbid obesity Atrial fibrillation (Acute) Encounter for pre-operative examination Deep vein thrombosis Hypertension Hyperlipidemia Asthma Osteoarthritis of knees, bilateral Chronic GERD Medical History Obesity Pulmonary hypertension moderate per 06/2023 ECHO (PASP 47mmHg) Skin breakdown sacral skin breakdown per 06/2024 hospitalization; pt to follow with wound care at [facility] 2 or more hospital admissions in past 6 months admitted [facility] 06/08-06/15/24: dx: complicated UTI, chronic indwelling cobb catheter, calculus of L kidney, b/l hydronephrosis. admitted [facility] 06/26- 06/30/24: dx: infection associated with indwelling uteretal stent, hematuria, acute L flank pain: pt D/C on Cefdinir (pt also noted to have sacral skin area breakdown during admission and pt to f/u with wound care at [facility]) History of anemia History of posterior vitreous detachment B/L History of asthma "Well controlled" Chronic indwelling Cobb catheter Hydronephrosis of left kidney Diabetes mellitus, type II Diet controlled Overactive bladder HTN (hypertension) GERD (gastroesophageal reflux disease) Hyperlipidemia Hx of vertigo Hx of cancer of uterus 2013- radiation Hx pulmonary embolism Remote hx years ago In setting of prolonged sitting/immobility during a previous hospitalization per records Urinary retention Cobb cath in place Atrial fibrillation Taking Eliquis History of home oxygen therapy not currently alf resident Resides at [facility] Nontoxic thyroid nodule Hx: UTI (urinary tract infection) Recurrent Hx of sepsis Lipodermatosclerosis Chronic bronchitis 'Bronchial asthma' Acquired lymphedema "Stomach" Gets therapy/massage to manage > was complication after radiation treatment per previous PAT RN notation IBS (irritable bowel syndrome) Surgical History History of anesthesia reaction Awareness with D&C and colonoscopy History of open reduction and internal fixation (ORIF) procedure (06/2023) left femur fx Hx of cystoscopy Multiple; most recent: 04/13/24: MAC without issue History of cataract surgery (2020) R/L History of dilatation and curettage History of esophagogastroduodenoscopy (EGD) History of colonoscopy History of bilateral tubal ligation History of cholecystectomy Hx of hernia repair (12/2017) Ventral hernia with mesh History of tooth extraction History of cardiac cath (02/18/11) @ [facility]--No stents Family History Other No family history of adverse response to anesthesia Social History Smoking Status: Never smoker Second Hand Exposure: No; Do You Dip or Chew Tobacco: No; Hx Alcohol Use: No Hx Substance Use: No Preferred Language: German Communication Ability: Effective Communication Ability Comment: alert and oriented x3 - of sound mind to sign consent Visual Impairment: No Limitations Simulation Analyst Required: No Beliefs That Will Affect Care: None Current Living Situation: Prison Current Living Situation Comment: [place] Feels Safe at Home: Yes Assistive Devices: Hospital Bed Allergies Allergies Allergy/AdvReac Type Severity Reaction Status Date / Time doxycycline Allergy Intermediate Swelling Verified 08/14/24 15:45 tetracycline Allergy Mild Eye Verified 08/14/24 15:45 swelling NARINDER Inhibitors AdvReac Intermediate Cough Verified 08/14/24 15:45 codeine AdvReac Mild [place] Verified 08/14/24 15:45 "crazy" Sulfa (Sulfonamide AdvReac Mild Gastrointestinal Verified 08/14/24 15:45 Antibiotics) Upset Home Meds Home Medications Medication Instructions Recorded Confirmed acetaminophen 500 mg tablet 500 mg PO Q6H PRN Fever Or Pain 06/28/23 12/17/24 (Tylenol Extra Strength) apixaban 5 mg tablet (Eliquis) 5 mg PO AMHS 06/28/23 12/17/24 atorvastatin 80 mg tablet 80 mg PO HS 06/28/23 12/17/24 metoprolol succinate 50 mg 50 mg PO AMHS 06/28/23 12/17/24 tablet,extended release 24 hr spironolactone 25 mg tablet 25 mg PO QAM 06/28/23 12/17/24 docusate sodium 100 mg capsule 200 mg PO HS 09/14/23 12/17/24 (Colace) ferrous sulfate 325 mg (65 mg 325 mg PO Q OTHER DAY 04/03/24 12/17/24 iron) tablet,delayed release montelukast 10 mg tablet 10 mg PO QAM 04/03/24 12/17/24 ascorbic acid (vitamin C) 500 mg 500 mg PO BID 07/10/24 12/17/24 tablet (Vitamin C) Saccharomyces boulardii 250 mg 250 mg PO QAM 08/14/24 12/17/24 capsule (Florastor) cranberry extract 500 mg capsule 500 mg PO QAM 08/14/24 12/17/24 (Cranberry Concentrate) diclofenac sodium 1 % topical gel 2 g EXT QID Pain 08/14/24 12/17/24 (Voltaren Arthritis Pain) zinc oxide 20 % topical ointment 1 applic topical BID 08/14/24 12/17/24 sennosides 8.6 mg tablet (senna) 17.2 mg PO DAILY PRN CONDTIPATION 10/22/24 12/17/24 mirtazapine 15 mg tablet 15 mg PO BID 12/17/24 12/17/24 mirtazapine 7.5 mg tablet 7.5 mg PO BID 12/17/24 12/17/24 sennosides 8.6 mg tablet (senna) 17.2 mg PO HS PRN Constipation 12/17/24 12/17/24 Previous Rx's Medication Instructions Recorded tamsulosin 0.4 mg capsule 0.4 mg PO HS #30 caps 06/14/24 methenamine hippurate 1 gram tablet 1 g PO BID #60 tabs 06/15/24 oxybutynin chloride 5 mg tablet 5 mg PO Q8H PRN bladder spasms #30 07/17/24 tabs water for irrigation, sterile 1 irrig irrigation DAILY PRN 12/08/24 (Curity Sterile Water irrigation catheter occlusion #6,000 mL solution) Results & Data (ED) Vital Signs Vital Signs - 24 hr 12/17/24 18:37 12/17/24 18:40 12/17/24 19:06 Temperature 37.4 C Temperature Source Oral Pulse Rate 101 H 103 H 104 H Pulse Rate [Left Apical] Respiratory Rate 16 16 Respiratory Effort / Characteristics Non-Labored Spontaneous Respiratory Depth Normal Respiratory Pattern Blood Pressure 138/62 Blood Pressure [Right Arm] Blood Pressure Mean 87 Blood Pressure Mean [Right Arm] Blood Pressure Position Lying Pulse Oximetry 91 95 Oxygen Delivery Method Room Air Room Air Sepsis Recent Fever Within 48 Hours No Sepsis New/Unexplained Change in Mental Status N/A Sepsis Action Taken by Nursing No Action Required 12/17/24 19:34 12/17/24 19:36 12/17/24 20:00 Temperature Temperature Source Pulse Rate 82 Pulse Rate [Left Apical] 87 Respiratory Rate 18 21 Respiratory Effort / Characteristics Non-Labored Spontaneous Respiratory Depth Normal Respiratory Pattern Regular Blood Pressure 116/62 Blood Pressure [Right Arm] 111/81 Blood Pressure Mean 84 Blood Pressure Mean [Right Arm] 91 Blood Pressure Position Pulse Oximetry 92 93 Oxygen Delivery Method Room Air Room Air Sepsis Recent Fever Within 48 Hours Sepsis New/Unexplained Change in Mental Status Sepsis Action Taken by Nursing 12/17/24 20:03 12/17/24 20:09 12/17/24 20:30 Temperature Temperature Source Pulse Rate 77 79 Pulse Rate [Left Apical] Respiratory Rate 18 20 Respiratory Effort / Characteristics Respiratory Depth Respiratory Pattern Blood Pressure 102/71 Blood Pressure [Right Arm] Blood Pressure Mean 75 Blood Pressure Mean [Right Arm] Blood Pressure Position Pulse Oximetry 93 Oxygen Delivery Method Room Air Sepsis Recent Fever Within 48 Hours Sepsis New/Unexplained Change in Mental Status Sepsis Action Taken by Nursing 12/17/24 20:36 Temperature Temperature Source Pulse Rate 79 Pulse Rate [Left Apical] Respiratory Rate 17 Respiratory Effort / Characteristics Respiratory Depth Respiratory Pattern Blood Pressure Blood Pressure [Right Arm] Blood Pressure Mean Blood Pressure Mean [Right Arm] Blood Pressure Position Pulse Oximetry 96 Oxygen Delivery Method Room Air Sepsis Recent Fever Within 48 Hours Sepsis New/Unexplained Change in Mental Status Sepsis Action Taken by Prison Medications Current Medication List: was personally reviewed by me Laboratory Data Attestation: I reviewed the patient's lab results. 12/17/24 18:40 12/17/24 18:40 Lab Results 12/17/24 12/17/24 12/17/24 Range/Units 18:40 18:45 19:38 WBC 11.34 H (4.8-10.8) K/ul RBC 4.41 (4.20-5.40) M/uL Hgb 12.4 (12.0-16.0) g/dl POC Hgb 12.9 (12.0-16.0) g/dl Hct 38.7 (37.0-47.0) % POC Hct 38 (37-47) % MCV 87.8 (80.0-100.0) fL MCH 28.1 (25.0-34.0) pg MCHC 32.0 (32.0-36.0) g/dL RDW Std Deviation 48.5 H (36.4-46.3) fL RDW Coeff of Rodolfo 15.1 H (11.5-14.5) % Plt Count 278 (130-400) K/uL MPV 9.9 (9.4-12.4) fL Immature Gran % (Auto) 0.4 % Neut % (Auto) 69.6 % Lymph % (Auto) 21.7 % [place] % (Auto) 7.1 % Eos % (Auto) 0.9 % Baso % (Auto) 0.3 % Neut # (Auto) 7.90 H (1.40-6.50) K/uL Lymph # (Auto) 2.46 (1.20-3.40) K/uL [place] # (Auto) 0.81 H (0.11-0.59) K/uL Eos # (Auto) 0.10 (0.00-0.50) K/uL Baso # (Auto) 0.03 (0.00-0.20) K/uL Immature Gran # (Auto) 0.04 (0.01-0.20) K/uL POC Sodium 137 (135-144) mmol/L Sodium 137 (136-145) mmol/L POC Potassium 4.1 (3.3-5.0) mmol/L Potassium 4.2 (3.5-5.1) mmol/L POC Chloride 99 L (101-112) mmol/L Chloride 102 (98-107) mmol/L Carbon Dioxide 30 (21-32) mmol/L POC Total CO2 26 (24-31) mmol/L Anion Gap 5 (3-11) POC Anion Gap 17.0 (16-25) mmol/L POC BUN 12 (7-18) mg/dl BUN 13 (6-23) mg/dl Creatinine 0.53 L (0.6-1.2) mg/dl POC Creatinine 0.7 (0.6-1.3) mg/dl Est Cr Clr Drug Dosing 95.1 ml/min eGFR 94.60 BUN/Creatinine Ratio 24.5 H (10-20) Glucose 118 H (70-99(Fasting)) mg/dl POC Glucose (other) 119 H (70-99) mg/dl Lactate 1.0 (0.4-2.0) mmol/L Calcium 9.0 (8.6-10.3) mg/dl POC Ioniz Calcium [place] 1.14 (1.12-1.32) mmol/l Magnesium 1.9 (1.7-2.4) mg/dl Total Bilirubin 0.6 (0.2-1.0) mg/dl Direct Bilirubin 0.1 (0-0.2) mg/dl AST 7 L (13-39) U/L ALT 6 L (7-52) U/L Alkaline Phosphatase 110 H (34-104) U/L Troponin I High Sens 3.9 (0-14) pg/ml Total Protein 6.5 (6.0-8.3) gm/dl Albumin 3.2 L (3.4-5.0) gm/dl Procalcitonin 0.06 (0-0.5) ng/ml Urine Color Brown Urine Appearance Turbid A (Clear) Urine pH 8.5 H (4.5-7.5) Ur Specific [place] 1.020 (1.000-1.030) Urine Protein 3+ H (Negative) Urine Glucose (UA) Negative (Negative) Urine Ketones Negative (Negative) Urine Blood 3+ H (Negative) Urine Nitrite Positive A (Negative) Urine Bilirubin 1+ H (Negative) Urine Urobilinogen Negative (Negative) Ur Leukocyte Esterase 3+ H (Negative) Urine RBC >20 H (0-2) /hpf Urine WBC >50 H (0-5) /hpf Ur Epithelial Cells 3-5 H (0-2) /hpf Urine Bacteria 4+ H (None Seen) Urine Mucus Present A (None Prsent) Administered Medications Discontinued Medications Sodium Chloride (Nss) 1,000 mls @ 999 mls/hr IV .Q1H1M ANA PAULA Stop: 12/17/24 19:45 Last Infusion: 12/17/24 20:41 Dose: Infused Documented By: Admin: 12/17/24 19:32 Dose: 999 mls/hr Documented By: SAMM Acetaminophen (Ofirmev) 1,000 mg in 100 mls @ 400 mls/hr IV NOW STA Stop: 12/17/24 18:53 Last Admin: 12/17/24 19:02 Dose: Not Given Documented By: SAMM Ampicillin Sodium 2,000 mg/ (Sodium Chloride) 100 mls @ 200 mls/hr IV ONE ONE Stop: 12/17/24 20:44 Last Admin: 12/17/24 20:36 Dose: 200 mls/hr Documented By: SAMM Piperacillin Sod/Tazobactam Sod (Zosyn) 4.5 gm in 100 mls @ 200 mls/hr IV NOW ONE; Protocol Stop: 12/17/24 21:19 Last Admin: 12/17/24 21:18 Dose: 200 mls/hr Documented By: SAMM Ioversol (Optiray 320 100ml) 93 ml IV ONCE ONE Stop: 12/17/24 19:16 Last Admin: 12/17/24 19:16 Dose: 93 ml Documented By: [facility] Imaging Data Radiologist's Impression: Abdomen/Pelvis CT 12/17/24 18:39 EXAM: CT Abdomen and Pelvis With Intravenous Contrast HISTORY: Pain TECHNIQUE: Axial computed tomography images of the abdomen and pelvis with intravenous contrast. Sagittal and coronal reformatted images were created and reviewed. This CT exam was performed using one or more of the following dose reduction techniques: automated exposure control, adjustment of the mA and/or kV according to patient size, and/or use of iterative reconstruction technique. COMPARISON: October 22, 2024. FINDINGS: LOWER CHEST: Lung bases: Dependent atelectasis present in the lung bases. Pleural space: No visualized pleural effusion or pneumothorax. Heart: Cardiomegaly. No pericardial effusion. Mediastinum: No abnormality noted. ABDOMEN: Liver: No abnormality noted. Gallbladder and bile ducts: Cholecystectomy. No ductal dilation or stone noted. Pancreas: Homogeneous enhancement. No mass, inflammation or ductal dilation. Spleen: No significant abnormality noted. Adrenals: Approximate 1.8 cm right adrenal adenoma. No further assessment required. The left appears normal. Kidneys and ureters: Bilateral renal scarring noted. Left ureteral stent in good position without hydronephrosis. Continue prominent urothelial thickening and enhancement of the left renal pelvis and calyces as well as the ureter. Simple cyst left kidney. No further assessment required. Right kidney without hydronephrosis. Scattered nonobstructing right renal calyceal stones. Small nonobstructing stone seen within the right renal pelvis, which is decompressed. Stomach and bowel: Moderate stool in the colon particularly in the rectum. Moderate diverticulosis particularly of the left colon. No diverticulitis. PELVIS: Appendix: No findings to suggest acute appendicitis. Bladder: There is air in the urinary bladder which is incompletely distended and appears mildly thickened. No stone noted. Reproductive: No abnormalities noted. ABDOMEN/PELVIS: Intraperitoneal space: No free air. No significant fluid collection. Bones/joints: Left proximal femoral hardware well-seated and intact. The bones are diffusely demineralized. There is compression of L1, L2 and L5, which are likely chronic. Soft tissues: There is subcutaneous edema posterior to the left pelvis and buttock region, which is decreased. Vasculature: Atherosclerotic calcification of the aorta and branches. No aneurysm. Lymph nodes: No pathologically enlarged lymph nodes. IMPRESSION: Stable left nephroureteral stent, in good position, with continued evidence of pyelitis and ureteritis, possibly reactive. Interval decrease in subcutaneous edema about the posterior left hip and buttock region, possibly due to chronic decubitus positioning. Electronically signed by See Argueta 12-17-2024 8:02 PM Chest X-Ray 12/17/24 18:39 EXAM: XR chest 1V portable CLINICAL HISTORY: Sepsis TECHNIQUE: An X-ray image of the chest is obtained in 1 AP projection. COMPARISON: No prior studies are available for [id number]/09/2025. FINDINGS: Pulmonary Parenchyma: Silhouette of the cardiac apex, part of the left hemidiaphragm, and Ipsilateral costophrenic angle by opacity/infiltrates. Prominent and bulky bilateral hilum, right more than left, with increased bronchovascular markings. The right costophrenic angle is not fully covered. Heart and Mediastinum: Cardiomegaly noted. Calcification of the aortic arch. No mediastinal widening or masses. Bony Thorax: Degenerative changes involving the bones. Osteopenia. Soft Tissues: Soft tissues overlying the chest wall are unremarkable. IMPRESSION: 1. Findings represent infection with possible minimal left-sided effusion/thickening. 2. Prominent bilateral hilum and cardiomegaly with increased bronchovascular markings represent congestive changes. 3. Compared to the previous interval, deterioration is noted. Electronically signed by Mina Box 12-17-2024 9:03 PM Discharge Plan Visit Data Chief Complaint: Abdominal Pain Stated Complaint: ABD PAIN ED Provider: Horacio Welsh Discharge Problem: Complicated urinary tract infection, Pyelitis, Abdominal pain, LLQ Forms Stand Alone Forms: [facility] [employer] Prescriptions Prescriptions: No Action oxybutynin chloride 5 mg tablet 5 mg PO Q8H PRN (Reason: bladder spasms) Qty: 30 0RF water for irrigation, sterile [Curity Sterile Water] Solution 1 irrig irrigation DAILY PRN (Reason: catheter occlusion) Qty: 6000 2RF atorvastatin 80 mg tablet 80 mg PO HS metoprolol succinate 50 mg tablet extended release 24 hr 50 mg PO AMHS acetaminophen [Tylenol Extra Strength] 500 mg Tablet 500 mg PO Q6H MDD 3gmAPAP/24hrs PRN (Reason: Fever Or Pain) spironolactone 25 mg tablet 25 mg PO QAM Eliquis 5 mg tablet 5 mg PO AMHS docusate sodium [Colace] 100 mg Capsule 200 mg PO HS tamsulosin 0.4 mg Capsule 0.4 mg PO HS Qty: 30 0RF methenamine hippurate 1 gram tablet 1 g PO BID Qty: 60 0RF sennosides [senna] 8.6 mg Tablet 17.2 mg PO DAILY PRN (Reason: CONDTIPATION) mirtazapine 7.5 mg tablet 7.5 mg PO BID Rx Instructions: take with 15 mg dose mirtazapine 15 mg tablet 15 mg PO BID Rx Instructions: take with 7.5mg dose sennosides [senna] 8.6 mg Tablet 17.2 mg PO HS PRN (Reason: Constipation) montelukast 10 mg Tablet 10 mg PO QAM ferrous sulfate 325 mg (65 mg iron) Tablet,Delayed Release (Dr/Ec) 325 mg PO Q OTHER DAY Patient Comments: in am ascorbic acid (vitamin C) [Vitamin C] 500 mg Tablet 500 mg PO BID zinc oxide 20 % Ointment 1 applic TOPICAL BID cranberry extract [Cranberry Concentrate] 500 mg Capsule 500 mg PO QAM Rx Instructions: administer with meals Saccharomyces boulardii [Florastor] 250 mg Capsule 250 mg PO QAM diclofenac sodium [Voltaren Arthritis Pain] 1 % gel 2 g EXT QID Referrals Referrals: Pavan Mckeon MD [Primary Care Provider] -
[2024-12-17 18:57] LABS: iSTAT Creatinine 0.7 mg/dl (0.6-1.3); iSTAT Hemoglobin 12.9 g/dl (12.0-16.0); iSTAT Ionized Calcium 1.14 mmol/l (1.12-1.32); iSTAT Potassium 4.1 mmol/L (3.3-5.0)
[2024-12-17] MEDS: ACETAMINOPHEN 1,000 MG/100 ML VIAL IV STA (19:02)
[2024-12-17 19:07] LABS: Basophils # (auto) 0.03 K/uL (0.00-0.20); Basophils % (auto) 0.3 %; Eosinophils % (auto) 0.9 %; Hematocrit (blood only) 38.7 % (37.0-47.0); Hemoglobin 12.4 g/dl (12.0-16.0); Immature Granulocytes # (auto) 0.04 K/uL (0.01-0.20); Immature Granulocytes % (auto) 0.4 %; Lymphocytes # (auto) 2.46 K/uL (1.20-3.40); Lymphocytes % (auto) 21.7 %; Mean Corpuscular Hemoglobin 28.1 pg (25.0-34.0); Mean Corpuscular Volume 87.8 fL (80.0-100.0); Mean Platelet Volume 9.9 fL (9.4-12.4); Monocytes # (auto) 0.81 K/uL (0.11-0.59); Monocytes % (auto) 7.1 %; Neutrophils % (auto) 69.6 %; Platelet Count 278 K/uL (130-400); RDW Coefficient of Variation 15.1 % (11.5-14.5); RDW Standard Deviation 48.5 fL (36.4-46.3); Red Blood Count 4.41 M/uL (4.20-5.40); White Blood Count 11.34 K/ul (4.8-10.8)
[2024-12-17] MEDS: OPTIRAY 320 100ml IV ONE (19:16)
[2024-12-17] MEDS: SODIUM CHLORIDE 0.9% 1,000 ML IV SCH (19:32)
[2024-12-17 19:43] LABS: Albumin Level 3.2 gm/dl (3.4-5.0); BUN Creatinine Ratio 24.5 (10-20); Bilirubin Direct 0.1 mg/dl (0-0.2); Bilirubin,Total 0.6 mg/dl (0.2-1.0); Creatinine Clr Calc Pharmacy 95.1 ml/min; Magnesium 1.9 mg/dl (1.7-2.4); Potassium 4.2 mmol/L (3.5-5.1); Total Protein 6.5 gm/dl (6.0-8.3)
[2024-12-17 19:49] LABS: Troponin I High Sensitivity 3.9 pg/ml (0-14)
[2024-12-17 19:54] LABS: Appearance Urine Turbid (Clear); Bilirubin Urine 1+ (Negative); Blood Urine 3+ (Negative); Color Urine Brown; Glucose Urine UA Negative (Negative); Ketones Urine Negative (Negative); Leukocyte Esterase Urine 3+ (Negative); Nitrite Urine Positive (Negative); Protein Urine 3+ (Negative); Urobilinogen Urine Negative (Negative); pH Urine 8.5 (4.5-7.5)
--- NOTE | 2024-12-17 20:02 | CT Scan Report ---
EXAM: CT Abdomen and Pelvis With Intravenous Contrast HISTORY: Pain TECHNIQUE: Axial computed tomography images of the abdomen and pelvis with intravenous contrast. Sagittal and coronal reformatted images were created and reviewed. This CT exam was performed using one or more of the following dose reduction techniques: automated exposure control, adjustment of the mA and/or kV according to patient size, and/or use of iterative reconstruction technique. COMPARISON: October 22, 2024. FINDINGS: LOWER CHEST: Lung bases: Dependent atelectasis present in the lung bases. Pleural space: No visualized pleural effusion or pneumothorax. Heart: Cardiomegaly. No pericardial effusion. Mediastinum: No abnormality noted. ABDOMEN: Liver: No abnormality noted. Gallbladder and bile ducts: Cholecystectomy. No ductal dilation or stone noted. Pancreas: Homogeneous enhancement. No mass, inflammation or ductal dilation. Spleen: No significant abnormality noted. Adrenals: Approximate 1.8 cm right adrenal adenoma. No further assessment required. The left appears normal. Kidneys and ureters: Bilateral renal scarring noted. Left ureteral stent in good position without hydronephrosis. Continue prominent urothelial thickening and enhancement of the left renal pelvis and calyces as well as the ureter. Simple cyst left kidney. No further assessment required. Right kidney without hydronephrosis. Scattered nonobstructing right renal calyceal stones. Small nonobstructing stone seen within the right renal pelvis, which is decompressed. Stomach and bowel: Moderate stool in the colon particularly in the rectum. Moderate diverticulosis particularly of the left colon. No diverticulitis. PELVIS: Appendix: No findings to suggest acute appendicitis. Bladder: There is air in the urinary bladder which is incompletely distended and appears mildly thickened. No stone noted. Reproductive: No abnormalities noted. ABDOMEN/PELVIS: Intraperitoneal space: No free air. No significant fluid collection. Bones/joints: Left proximal femoral hardware well-seated and intact. The bones are diffusely demineralized. There is compression of L1, L2 and L5, which are likely chronic. Soft tissues: There is subcutaneous edema posterior to the left pelvis and buttock region, which is decreased. Vasculature: Atherosclerotic calcification of the aorta and branches. No aneurysm. Lymph nodes: No pathologically enlarged lymph nodes. IMPRESSION: Stable left nephroureteral stent, in good position, with continued evidence of pyelitis and ureteritis, possibly reactive. Interval decrease in subcutaneous edema about the posterior left hip and buttock region, possibly due to chronic decubitus positioning. Electronically signed by See Argueta 12-17-2024 8:02 PM
[2024-12-17 20:06] LABS: Bacteria Urine 4+ (None Seen); Mucus Urine Present (None Prsent); RBC Urine >20 /hpf (0-2); WBC Urine >50 /hpf (0-5)
[2024-12-17] MEDS ORDERED: AMPICILLIN 2,000 MG in SODIUM CHLORIDE 0.9% 50 ML IV STA (20:09)
[2024-12-17] MEDS: AMPICILLIN 2,000 MG in SODIUM CHLOR 0.9% MINI-B 100 ML IV ONE (20:36)
--- NOTE | 2024-12-17 21:03 | XRay Report ---
EXAM: XR chest 1V portable CLINICAL HISTORY: Sepsis TECHNIQUE: An X-ray image of the chest is obtained in 1 AP projection. COMPARISON: No prior studies are available for [id number]. FINDINGS: Pulmonary Parenchyma: Silhouette of the cardiac apex, part of the left hemidiaphragm, and Ipsilateral costophrenic angle by opacity/infiltrates. Prominent and bulky bilateral hilum, right more than left, with increased bronchovascular markings. The right costophrenic angle is not fully covered. Heart and Mediastinum: Cardiomegaly noted. Calcification of the aortic arch. No mediastinal widening or masses. Bony Thorax: Degenerative changes involving the bones. Osteopenia. Soft Tissues: Soft tissues overlying the chest wall are unremarkable. IMPRESSION: 1. Findings represent infection with possible minimal left-sided effusion/thickening. 2. Prominent bilateral hilum and cardiomegaly with increased bronchovascular markings represent congestive changes. 3. Compared to the previous interval, deterioration is noted. Electronically signed by Mina Box 12-17-2024 9:03 PM
[2024-12-17] MEDS: PIPERACILLIN/TAZOBACTAM 4.5 GM/100 ML BAG IV ONE (21:18)
--- NOTE | 2024-12-17 22:12 | History & Physical Report ---
Date of Service December 17, 2024 Assessment & Plan (1) Sepsis: Plan: Sepsis Secondary to complicated urinary tract infection History of stent placement for hydronephrosis left hx recurrent UTIs on chronic methenamine suppression Rx/urge incontinence/chronic indwelling Cobb catheter/urolithiasis Hematuria secondary to above history PE DVT/A-fib, on Eliquis Patient currently hemodynamically stable valvular heart disease (mild AR/TR) hypertension, BP on the lower side hyperlipidemia, on statin Rx pulmonary hypertension bronchial asthma, not in exacerbation DM2 diet-controlled, well-controlled as of recent hemoglobin A1c of 5.7 last October 2024 endometrial cancer status post radiation chronic anemia, hemoglobin stable chronic lymphedema Admit to medical telemetry Follow urine CS, Cefepime on the basis of microbiologic history (history enteric organisms, Pseudomonas as per records; history Zosyn intermediate resistance E. coli) Hold Eliquis for now given hematuria symptoms, resume in a.m. if H&H stable ISS BG goal 1 10-1 40 DVT prophylaxis. SCDs while Eliquis on hold re: hematuria DNR Patient son requesting updates from providers. Mr. Gerald Brumfield, contact #[phone]. Text document was generated using [employer] voice recognition software. It may contain grammatical or spelling errors. Kindly contact undersigned for clarification of any documentation item in question. History of Present Illness Chief Complaint: Left-sided abdominal pain Primary Care Provider: Pavan Mckeon MD History obtained from patient and records. Medical history significant for history PE DVT/A-fib on Eliquis, valvular heart disease (mild AR/TR), hypertension, hyperlipidemia, pulmonary hypertension, bronchial asthma, DM2 diet-controlled, endometrial cancer status post radiation, recurrent UTIs on chronic methenamine suppression Rx, urge incontinence, chronic indwelling Cobb catheter, urolithiasis, GERD, chronic anemia (baseline hemoglobin of 11), chronic lymphedema, osteoarthritis. Last confinement October 2024 for recurrent complicated UTI and left gluteal cellulitis. Urine CS grew E. coli and E faecalis. Patient initially treated with cefepime. Antibiotic discontinued following ID recommendations given less concern for active infection as per note. 2 days ago, patient noted achy left lower quadrant pain with hematuria symptoms. Transient chest tightness without SOB. Some chills at home. Unasyn administered at the ER. MEDICAL HISTORY: As above. SURGICAL HISTORY: Bilateral tubal ligation, cholecystectomy, appendectomy, D&C, urologic procedures, femoral fracture surgery, urologic procedures FAMILY HISTORY: Heart disease, COPD. PERSONAL SOCIAL HISTORY: Nonsmoker, no chronic intake of alcoholic beverages. 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 Allergies Allergy/AdvReac Type Severity Reaction Status Date / Time doxycycline Allergy Intermediate Swelling Verified 08/14/24 15:45 tetracycline Allergy Mild Eye Verified 08/14/24 15:45 swelling NARINDER Inhibitors AdvReac Intermediate Cough Verified 08/14/24 15:45 codeine AdvReac Mild [place] Verified 08/14/24 15:45 "crazy" Sulfa (Sulfonamide AdvReac Mild Gastrointestinal Verified 08/14/24 15:45 Antibiotics) Upset Home Medications Medication Instructions Recorded Confirmed Type acetaminophen 500 mg tablet 500 mg PO Q6H PRN Fever Or Pain 06/28/23 12/17/24 History (Tylenol Extra Strength) apixaban 5 mg tablet (Eliquis) 5 mg PO AMHS 06/28/23 12/17/24 History atorvastatin 80 mg tablet 80 mg PO HS 06/28/23 12/17/24 History metoprolol succinate 50 mg 50 mg PO AMHS 06/28/23 12/17/24 History tablet,extended release 24 hr spironolactone 25 mg tablet 25 mg PO QAM 06/28/23 12/17/24 History docusate sodium 100 mg capsule 200 mg PO HS 09/14/23 12/17/24 History (Colace) ferrous sulfate 325 mg (65 mg 325 mg PO Q OTHER DAY 04/03/24 12/17/24 History iron) tablet,delayed release montelukast 10 mg tablet 10 mg PO QAM 04/03/24 12/17/24 History tamsulosin 0.4 mg capsule 0.4 mg PO HS #30 caps 06/14/24 12/17/24 Rx methenamine hippurate 1 gram tablet 1 g PO BID #60 tabs 06/15/24 12/17/24 Rx ascorbic acid (vitamin C) 500 mg 500 mg PO BID 07/10/24 12/17/24 History tablet (Vitamin C) oxybutynin chloride 5 mg tablet 5 mg PO Q8H PRN bladder spasms #30 07/17/24 12/17/24 Rx tabs Saccharomyces boulardii 250 mg 250 mg PO QAM 08/14/24 12/17/24 History capsule (Florastor) cranberry extract 500 mg capsule 500 mg PO QAM 08/14/24 12/17/24 History (Cranberry Concentrate) diclofenac sodium 1 % topical gel 2 g EXT QID Pain 08/14/24 12/17/24 History (Voltaren Arthritis Pain) zinc oxide 20 % topical ointment 1 applic topical BID 08/14/24 12/17/24 History water for irrigation, sterile 1 irrig irrigation DAILY PRN 12/08/24 12/17/24 Rx (Curity Sterile Water irrigation catheter occlusion #6,000 mL solution) mirtazapine 15 mg tablet 22.5 mg PO BID 12/17/24 12/17/24 History sennosides 8.6 mg tablet (senna) 17.2 mg PO HS PRN Constipation 12/17/24 12/17/24 History Past Med/Surg History Problem List (Updated 12/18/24 @ 01:32 by Oscar Cornelius MD) Sepsis Abdominal pain, LLQ (Acute) Pyelitis (Acute) Recurrent UTI Enterococcal bacteremia Cellulitis of gluteal region (Acute) Cystitis (Acute) Chronic indwelling Cobb catheter (Acute) Acute pyelitis (Acute) Ureteral stent present Catheter-associated urinary tract infection E coli bacteremia Septic shock Elevated troponin (Acute) Severe sepsis (Acute) Acute metabolic encephalopathy Demand ischemia of myocardium Acute renal failure superimposed on chronic kidney disease Severe sepsis with acute organ dysfunction due to Gram negative bacteria Sacral back pain Infection associated with indwelling ureteral stent (Acute) Hematuria (Acute) Complicated urinary tract infection (Acute) Protein malnutrition Bilateral hydronephrosis Chronic indwelling Cobb catheter (Acute) Nephrolithiasis Urinary retention Calculus of left kidney Morbid obesity Atrial fibrillation (Acute) Encounter for pre-operative examination Deep vein thrombosis Hypertension Hyperlipidemia Asthma Osteoarthritis of knees, bilateral Chronic GERD Medical History Obesity Pulmonary hypertension moderate per 06/2023 ECHO (PASP 47mmHg) Skin breakdown sacral skin breakdown per 06/2024 hospitalization; pt to follow with wound care at [facility] 2 or more hospital admissions in past 6 months admitted [facility] 06/08-06/15/24: dx: complicated UTI, chronic indwelling cobb catheter, calculus of L kidney, b/l hydronephrosis. admitted [facility] 06/26- 06/30/24: dx: infection associated with indwelling uteretal stent, hematuria, acute L flank pain: pt D/C on Cefdinir (pt also noted to have sacral skin area breakdown during admission and pt to f/u with wound care at [facility]) History of anemia History of posterior vitreous detachment B/L History of asthma "Well controlled" Chronic indwelling Cobb catheter Hydronephrosis of left kidney Diabetes mellitus, type II Diet controlled Overactive bladder HTN (hypertension) GERD (gastroesophageal reflux disease) Hyperlipidemia Hx of vertigo Hx of cancer of uterus 2013- radiation Hx pulmonary embolism Remote hx years ago In setting of prolonged sitting/immobility during a previous hospitalization per records Urinary retention Cobb cath in place Atrial fibrillation Taking Eliquis History of home oxygen therapy not currently group home resident Resides at [facility] Nontoxic thyroid nodule Hx: UTI (urinary tract infection) Recurrent Hx of sepsis Lipodermatosclerosis Chronic bronchitis 'Bronchial asthma' Acquired lymphedema "Stomach" Gets therapy/massage to manage > was complication after radiation treatment per previous PAT RN notation IBS (irritable bowel syndrome) Surgical History History of anesthesia reaction Awareness with D&C and colonoscopy History of open reduction and internal fixation (ORIF) procedure (06/2023) left femur fx Hx of cystoscopy Multiple; most recent: 04/13/24: MAC without issue History of cataract surgery (2020) R/L History of dilatation and curettage History of esophagogastroduodenoscopy (EGD) History of colonoscopy History of bilateral tubal ligation History of cholecystectomy Hx of hernia repair (12/2017) Ventral hernia with mesh History of tooth extraction History of cardiac cath (02/18/11) @ [facility]--No stents Family History Other No family history of adverse response to anesthesia Social History Smoking Status: Never smoker Second Hand Exposure: No; Do You Dip or Chew Tobacco: No; Hx Alcohol Use: No Hx Substance Use: No Preferred Language: [place]ralt[place] Communication Ability: Effective Communication Ability Comment: alert and oriented x3 - of sound mind to sign consent Visual Impairment: No Limitations Ux Information Architect Required: No Beliefs That Will Affect Care: None Current Living Situation: Personal Care Facility Current Living Situation Comment: [facility] Other Information That Helps Us Care for You: No Feels Safe at Home: Yes Safety Concerns: Feels Safe At This Time Assistive Devices: Glasses and Hospital Bed Assistive Devices Comment: Glasses with pt Review of Systems Review of Systems: As per HPI, all other systems reviewed and negative Physical Exam Physical Exam: GENERAL: comfortable, pleasant, obese, no respiratory distress SKIN: Pallor, warm HEENT: Bespectacled, pale palpebral conjunctivae, no ptosis, dry buccal mucosa NECK : Supple, short neck, no tenderness CHEST : Decreased breath sounds, no tenderness HEART : Irregular, no obvious murmurs ABDOMEN: distention, left-sided abdominal tenderness EXTREMITIES : Bilateral LE swelling , no LE tenderness, no other conspicuous deformities noted NEUROLOGIC : Coherent, no facial asymmetry, gait and stance not assessed Results & Data Results & Data Vital Signs (Past 12 Hours) Vital Signs Temp Pulse Pulse Resp BP BP Pulse Ox 12/17/24 20:36 79 17 96 12/17/24 20:30 102/71 12/17/24 20:09 79 20 12/17/24 20:03 77 18 93 12/17/24 20:00 116/62 12/17/24 19:36 82 21 93 12/17/24 19:34 87 18 111/81 92 12/17/24 19:06 104 H 16 95 12/17/24 18:40 103 H 12/17/24 18:37 37.4 C 101 H 16 138/62 91 O2 Del Method 12/17/24 20:36 Room Air 12/17/24 20:30 12/17/24 20:09 12/17/24 20:03 Room Air 12/17/24 20:00 12/17/24 19:36 Room Air 12/17/24 19:34 Room Air 12/17/24 19:06 Room Air 12/17/24 18:40 12/17/24 18:37 Room Air Laboratory Results Laboratory Results WBC 11.34 K/ul (4.8-10.8) H 12/17/24 18:40 RBC 4.41 M/uL (4.20-5.40) 12/17/24 18:40 Hgb 12.4 g/dl (12.0-16.0) 12/17/24 18:40 POC Hgb 12.9 g/dl (12.0-16.0) 12/17/24 18:45 Hct 38.7 % (37.0-47.0) 12/17/24 18:40 POC Hct 38 % (37-47) 12/17/24 18:45 MCV 87.8 fL (80.0-100.0) 12/17/24 18:40 MCH 28.1 pg (25.0-34.0) 12/17/24 18:40 MCHC 32.0 g/dL (32.0-36.0) 12/17/24 18:40 RDW Std Deviation 48.5 fL (36.4-46.3) H 12/17/24 18:40 RDW Coeff of Rodolfo 15.1 % (11.5-14.5) H 12/17/24 18:40 Plt Count 278 K/uL (130-400) 12/17/24 18:40 MPV 9.9 fL (9.4-12.4) 12/17/24 18:40 Immature Gran % (Auto) 0.4 % 12/17/24 18:40 Neut % (Auto) 69.6 % 12/17/24 18:40 Lymph % (Auto) 21.7 % 12/17/24 18:40 [place] % (Auto) 7.1 % 12/17/24 18:40 Eos % (Auto) 0.9 % 12/17/24 18:40 Baso % (Auto) 0.3 % 12/17/24 18:40 Neut # (Auto) 7.90 K/uL (1.40-6.50) H 12/17/24 18:40 Lymph # (Auto) 2.46 K/uL (1.20-3.40) 12/17/24 18:40 [place] # (Auto) 0.81 K/uL (0.11-0.59) H 12/17/24 18:40 Eos # (Auto) 0.10 K/uL (0.00-0.50) 12/17/24 18:40 Baso # (Auto) 0.03 K/uL (0.00-0.20) 12/17/24 18:40 Immature Gran # (Auto) 0.04 K/uL (0.01-0.20) 12/17/24 18:40 POC Sodium 137 mmol/L (135-144) 12/17/24 18:45 Sodium 137 mmol/L (136-145) 12/17/24 18:40 POC Potassium 4.1 mmol/L (3.3-5.0) 12/17/24 18:45 Potassium 4.2 mmol/L (3.5-5.1) 12/17/24 18:40 POC Chloride 99 mmol/L (101-112) L 12/17/24 18:45 Chloride 102 mmol/L (98-107) 12/17/24 18:40 Carbon Dioxide 30 mmol/L (21-32) 12/17/24 18:40 POC Total CO2 26 mmol/L (24-31) 12/17/24 18:45 Anion Gap 5 (3-11) 12/17/24 18:40 POC Anion Gap 17.0 mmol/L (16-25) 12/17/24 18:45 POC BUN 12 mg/dl (7-18) 12/17/24 18:45 BUN 13 mg/dl (6-23) 12/17/24 18:40 Creatinine 0.53 mg/dl (0.6-1.2) L 12/17/24 18:40 POC Creatinine 0.7 mg/dl (0.6-1.3) 12/17/24 18:45 Est Cr Clr Drug Dosing 95.1 ml/min 12/17/24 18:40 eGFR 94.60 12/17/24 18:40 BUN/Creatinine Ratio 24.5 (10-20) H 12/17/24 18:40 Glucose 118 mg/dl (70-99(Fasting)) H 12/17/24 18:40 POC Glucose (other) 119 mg/dl (70-99) H 12/17/24 18:45 Lactate 1.0 mmol/L (0.4-2.0) 12/17/24 18:40 Calcium 9.0 mg/dl (8.6-10.3) 12/17/24 18:40 POC Ioniz Calcium [place] 1.14 mmol/l (1.12-1.32) 12/17/24 18:45 Magnesium 1.9 mg/dl (1.7-2.4) 12/17/24 18:40 Total Bilirubin 0.6 mg/dl (0.2-1.0) 12/17/24 18:40 Direct Bilirubin 0.1 mg/dl (0-0.2) 12/17/24 18:40 AST 7 U/L (13-39) L 12/17/24 18:40 ALT 6 U/L (7-52) L 12/17/24 18:40 Alkaline Phosphatase 110 U/L (34-104) H 12/17/24 18:40 Troponin I High Sens 3.9 pg/ml (0-14) 12/17/24 18:40 Total Protein 6.5 gm/dl (6.0-8.3) 12/17/24 18:40 Albumin 3.2 gm/dl (3.4-5.0) L 12/17/24 18:40 Procalcitonin 0.06 ng/ml (0-0.5) 12/17/24 18:40 Urine Color Brown 12/17/24 19:38 Urine Appearance Turbid (Clear) A 12/17/24 19:38 Urine pH 8.5 (4.5-7.5) H 12/17/24 19:38 Ur Specific [place] 1.020 (1.000-1.030) 12/17/24 19:38 Urine Protein 3+ (Negative) H 12/17/24 19:38 Urine Glucose (UA) Negative (Negative) 12/17/24 19:38 Urine Ketones Negative (Negative) 12/17/24 19:38 Urine Blood 3+ (Negative) H 12/17/24 19:38 Urine Nitrite Positive (Negative) A 12/17/24 19:38 Urine Bilirubin 1+ (Negative) H 12/17/24 19:38 Urine Urobilinogen Negative (Negative) 12/17/24 19:38 Ur Leukocyte Esterase 3+ (Negative) H 12/17/24 19:38 Urine RBC >20 /hpf (0-2) H 12/17/24 19:38 Urine WBC >50 /hpf (0-5) H 12/17/24 19:38 Ur Epithelial Cells 3-5 /hpf (0-2) H 12/17/24 19:38 Urine Bacteria 4+ (None Seen) H 12/17/24 19:38 Urine Mucus Present (None Prsent) A 12/17/24 19:38 Impressions Abdomen/Pelvis CT 12/17/24 18:39 EXAM: CT Abdomen and Pelvis With Intravenous Contrast HISTORY: Pain TECHNIQUE: Axial computed tomography images of the abdomen and pelvis with intravenous contrast. Sagittal and coronal reformatted images were created and reviewed. This CT exam was performed using one or more of the following dose reduction techniques: automated exposure control, adjustment of the mA and/or kV according to patient size, and/or use of iterative reconstruction technique. COMPARISON: October 22, 2024. FINDINGS: LOWER CHEST: Lung bases: Dependent atelectasis present in the lung bases. Pleural space: No visualized pleural effusion or pneumothorax. Heart: Cardiomegaly. No pericardial effusion. Mediastinum: No abnormality noted. ABDOMEN: Liver: No abnormality noted. Gallbladder and bile ducts: Cholecystectomy. No ductal dilation or stone noted. Pancreas: Homogeneous enhancement. No mass, inflammation or ductal dilation. Spleen: No significant abnormality noted. Adrenals: Approximate 1.8 cm right adrenal adenoma. No further assessment required. The left appears normal. Kidneys and ureters: Bilateral renal scarring noted. Left ureteral stent in good position without hydronephrosis. Continue prominent urothelial thickening and enhancement of the left renal pelvis and calyces as well as the ureter. Simple cyst left kidney. No further assessment required. Right kidney without hydronephrosis. Scattered nonobstructing right renal calyceal stones. Small nonobstructing stone seen within the right renal pelvis, which is decompressed. Stomach and bowel: Moderate stool in the colon particularly in the rectum. Moderate diverticulosis particularly of the left colon. No diverticulitis. PELVIS: Appendix: No findings to suggest acute appendicitis. Bladder: There is air in the urinary bladder which is incompletely distended and appears mildly thickened. No stone noted. Reproductive: No abnormalities noted. ABDOMEN/PELVIS: Intraperitoneal space: No free air. No significant fluid collection. Bones/joints: Left proximal femoral hardware well-seated and intact. The bones are diffusely demineralized. There is compression of L1, L2 and L5, which are likely chronic. Soft tissues: There is subcutaneous edema posterior to the left pelvis and buttock region, which is decreased. Vasculature: Atherosclerotic calcification of the aorta and branches. No aneurysm. Lymph nodes: No pathologically enlarged lymph nodes. IMPRESSION: Stable left nephroureteral stent, in good position, with continued evidence of pyelitis and ureteritis, possibly reactive. Interval decrease in subcutaneous edema about the posterior left hip and buttock region, possibly due to chronic decubitus positioning. Electronically signed by See Argueta 12-17-2024 8:02 PM Chest X-Ray 12/17/24 18:39 EXAM: XR chest 1V portable CLINICAL HISTORY: Sepsis TECHNIQUE: An X-ray image of the chest is obtained in 1 AP projection. COMPARISON: No prior studies are available for [id number]/2025. FINDINGS: Pulmonary Parenchyma: Silhouette of the cardiac apex, part of the left hemidiaphragm, and Ipsilateral costophrenic angle by opacity/infiltrates. Prominent and bulky bilateral hilum, right more than left, with increased bronchovascular markings. The right costophrenic angle is not fully covered. Heart and Mediastinum: Cardiomegaly noted. Calcification of the aortic arch. No mediastinal widening or masses. Bony Thorax: Degenerative changes involving the bones. Osteopenia. Soft Tissues: Soft tissues overlying the chest wall are unremarkable. IMPRESSION: 1. Findings represent infection with possible minimal left-sided effusion/thickening. 2. Prominent bilateral hilum and cardiomegaly with increased bronchovascular markings represent congestive changes. 3. Compared to the previous interval, deterioration is noted. Electronically signed by Mina Box 12-17-2024 9:03 PM Diagnostic Findings EKG as per my interpretation :Rate 90, A-fib, LAD, LAFB, nonspecific T ab normalities, low voltage
[2024-12-17] MEDS ORDERED: PROMETHAZINE 6.25 MG/50.25 ML BAG IV PRN (22:34)
[2024-12-17] MEDS: CEFEPIME 2000MG 2,000 MG/20 ML SYR IV STA (22:43)
[2024-12-17] MEDS: ALBUMIN 25% 25 GM/100 ML VIAL IV STA (22:52)
[2024-12-17] MEDS: MIRTAZAPINE TAB 15 MG TAB PO SCH (23:29)
[2024-12-17] MEDS: ACETAMINOPHEN 500 MG TAB PO PRN (23:30)
[2024-12-18] MEDS ORDERED: CARBOHYDRATES FOR HYPOGLYCEMIA PO PRN (02:08)
[2024-12-18] MEDS ORDERED: GLUCOSE 10 TAB/TUBE PO PRN (02:08)
[2024-12-18] MEDS ORDERED: DEXTROSE 50% 50 ML SYRINGE IV PRN (02:08)
[2024-12-18] MEDS ORDERED: GLUCOSE 40% GEL 15 GM TUBE PO PRN (02:08)
[2024-12-18] MEDS ORDERED: GLUCAGON FOR INJ 1 MG VIAL SQ PRN (02:08)
[2024-12-18] MEDS: INSULIN ASPART PER UNIT CHARGE SC SCH (02:54)
[2024-12-18] MEDS: METOPROLOL SUCC 25MG EXT REL TAB PO STA (05:15)
[2024-12-18] MEDS: CEFEPIME 2000MG 2,000 MG/20 ML SYR IV SCH (05:16)
[2024-12-18] MEDS ORDERED: METOPROLOL SUCC 25MG EXT REL TAB PO SCH (09:00)
[2024-12-18] MEDS: MONTELUKAST SODIUM 10 MG TABLET PO SCH (09:07)
[2024-12-18] MEDS: SACCHAROMYCES BOULARDII 250 MG CAP PO SCH (09:07)
[2024-12-18] MEDS: SENNA 8.6 MG TAB PO PRN (09:12)
[2024-12-18] MEDS: DAPTOmycin 400 MG in SYRINGE 0 ML IV SCH (10:15)
--- NOTE | 2024-12-18 10:15 | Urology Consultation ---
Date of Consultation December 18, 2024 Assessment & Plan (1) Ureteral stent present: (2) Acute pyelitis: 79-year-old female with history of nephrolithiasis, chronic indwelling Cobb, recurrent UTIs and left ureteral stent last exchanged on 07/19/24 admitted for complicated UTI and pyelitis. Patient afebrile, hemodynamically stable Labs reviewedWBC 8.14, hemoglobin 11.0 Urine culture 12/17 with 3 types of organisms present, all high counts Blood cultures are pending She is currently on cefepime and daptomycin CT shows left ureteral stent in good position with left pyelitis; nonobstructing right renal calculi and debris within the right renal pelvis without hydronephrosis Last stent exchange was on 07/19/24 She was seen in office on 12/05 and is pending her next stent exchange No plan for acute intervention today Tentatively plan for cystoscopy and left ureteral stent exchange on (12/21) while inpatient pending clinical course She has some stone/debris in right renal pelvis as well, which does not appear to be obstructing If she is not clinically improving with antibiotics, then consideration of bilateral intervention Continue broad-spectrum antibiotics per hospital medicine service Maintain Cobb, urine appears to have cleared will follow peripherally in the interim, please contact our service with any additional questions or concerns History of Present Illness Reason for Consultation: UTI, hematuria, ureteral stent Requesting Physician: Dr. Lainez Attending Physician: Nicho Lainez MD History of Present Illness This is a 79-year-old female who follows with urology for history of nephrolithiasis, chronic indwelling Cobb catheter, left ureteral stent exchanges for management of obstruction of the left kidney seen on nuclear medicine study (last stent exchange on 07/19/24), and recurrent UTIs. She presented to the emergency department on 12/17/2024 for evaluation of left-sided abdominal/flank pain and was admitted for complicated urinary tract infection and pyelitis. On arrival to ED, her temperature was 37.4 and she was tachycardic. Lab work showed WBC 11.34, hemoglobin 12.4, creatinine 0.53, lactate 1.0. Urinalysis showed turbid urine, 3+ blood, positive nitrates, 3+ LE, >20 RBC, >50 WBC, 3-5 epithelial cells and 4+ bacteria. Workup included CT abdomen pelvis with IV contrast. Imaging personally reviewed and shows left ureteral stent in appropriate position. There is urothelial thickening and enhancement of the left renal pelvis and ureter. No hydronephrosis on the right. Nonobstructing right renal calculi as well as debris within the right renal pelvis. ED course: IV fluids, acetaminophen, ampicillin, Zosyn. Urology is consulted for UTI, hematuria, ureteral stent. Urine culture 12/17 with 3 types of organisms present, all high counts. Blood cultures pending. She is currently on cefepime and daptomycin. Patient seen and examined at bedside this morning. She reports she is overall feeling better since arrival. Denies left flank or abdominal pain at present. She reports she was having hematuria prior to arrival, but now her urine has cleared. Cobb intact. Denies nausea, vomiting, fever or chills at present. Allergies Allergy/AdvReac Type Severity Reaction Status Date / Time doxycycline Allergy Intermediate Swelling Verified 08/14/24 15:45 tetracycline Allergy Mild Eye Verified 08/14/24 15:45 swelling NARINDER Inhibitors AdvReac Intermediate Cough Verified 08/14/24 15:45 codeine AdvReac Mild Sutter Verified 08/14/24 15:45 "crazy" Sulfa (Sulfonamide AdvReac Mild Gastrointestinal Verified 08/14/24 15:45 Antibiotics) Upset Home Medications Medication Instructions Recorded Confirmed Type acetaminophen 500 mg tablet 500 mg PO Q6H PRN Fever Or Pain 06/28/23 12/17/24 History (Tylenol Extra Strength) apixaban 5 mg tablet (Eliquis) 5 mg PO [facility] 06/28/23 12/17/24 History atorvastatin 80 mg tablet 80 mg PO HS 06/28/23 12/17/24 History metoprolol succinate 50 mg 50 mg PO [facility] 06/28/23 12/17/24 History tablet,extended release 24 hr spironolactone 25 mg tablet 25 mg PO QAM 06/28/23 12/17/24 History docusate sodium 100 mg capsule 200 mg PO HS 09/14/23 12/17/24 History (Colace) ferrous sulfate 325 mg (65 mg 325 mg PO Q OTHER DAY 04/03/24 12/17/24 History iron) tablet,delayed release montelukast 10 mg tablet 10 mg PO QAM 04/03/24 12/17/24 History tamsulosin 0.4 mg capsule 0.4 mg PO HS #30 caps 06/14/24 12/17/24 Rx methenamine hippurate 1 gram tablet 1 g PO BID #60 tabs 06/15/24 12/17/24 Rx ascorbic acid (vitamin C) 500 mg 500 mg PO BID 07/10/24 12/17/24 History tablet (Vitamin C) oxybutynin chloride 5 mg tablet 5 mg PO Q8H PRN bladder spasms #30 07/17/24 12/17/24 Rx tabs Saccharomyces boulardii 250 mg 250 mg PO QAM 08/14/24 12/17/24 History capsule (Florastor) cranberry extract 500 mg capsule 500 mg PO QAM 08/14/24 12/17/24 History (Cranberry Concentrate) diclofenac sodium 1 % topical gel 2 g EXT QID Pain 08/14/24 12/17/24 History (Voltaren Arthritis Pain) zinc oxide 20 % topical ointment 1 applic topical BID 08/14/24 12/17/24 History water for irrigation, sterile 1 irrig irrigation DAILY PRN 12/08/24 12/17/24 Rx (Curity Sterile Water irrigation catheter occlusion #6,000 mL solution) mirtazapine 15 mg tablet 22.5 mg PO BID 12/17/24 12/17/24 History sennosides 8.6 mg tablet (senna) 17.2 mg PO HS PRN Constipation 12/17/24 12/17/24 History Patient History Medical History Obesity Pulmonary hypertension moderate per 06/2023 ECHO (PASP 47mmHg) Skin breakdown sacral skin breakdown per 06/2024 hospitalization; pt to follow with wound care at [facility] 2 or more hospital admissions in past 6 months admitted [facility] 06/08-06/15/24: dx: complicated UTI, chronic indwelling cobb catheter, calculus of L kidney, b/l hydronephrosis. admitted [facility] 06/26- 06/30/24: dx: infection associated with indwelling uteretal stent, hematuria, acute L flank pain: pt D/C on Cefdinir (pt also noted to have sacral skin area breakdown during admission and pt to f/u with wound care at [facility]) History of anemia History of posterior vitreous detachment B/L History of asthma "Well controlled" Chronic indwelling Cobb catheter Hydronephrosis of left kidney Diabetes mellitus, type II Diet controlled Overactive bladder HTN (hypertension) GERD (gastroesophageal reflux disease) Hyperlipidemia Hx of vertigo Hx of cancer of uterus 2014- radiation Hx pulmonary embolism Remote hx years ago In setting of prolonged sitting/immobility during a previous hospitalization per records Urinary retention Cobb cath in place Atrial fibrillation Taking Eliquis History of home oxygen therapy not currently shelter resident Resides at [facility] Nontoxic thyroid nodule Hx: UTI (urinary tract infection) Recurrent Hx of sepsis Lipodermatosclerosis Chronic bronchitis 'Bronchial asthma' Acquired lymphedema "Stomach" Gets therapy/massage to manage > was complication after radiation treatment per previous PAT RN notation IBS (irritable bowel syndrome) Surgical History History of anesthesia reaction Awareness with D&C and colonoscopy History of open reduction and internal fixation (ORIF) procedure (06/2023) left femur fx Hx of cystoscopy Multiple; most recent: 04/13/24: MAC without issue History of cataract surgery (2020) R/L History of dilatation and curettage History of esophagogastroduodenoscopy (EGD) History of colonoscopy History of bilateral tubal ligation History of cholecystectomy Hx of hernia repair (12/2017) Ventral hernia with mesh History of tooth extraction History of cardiac cath (02/18/11) @ [facility]--No stents Family History Other No family history of adverse response to anesthesia Social History Smoking Status: Never smoker Second Hand Exposure: No; Do You Dip or Chew Tobacco: No; Hx Alcohol Use: No Hx Substance Use: No Preferred Language: Japanese Communication Ability: Effective Communication Ability Comment: alert and oriented x3 - of sound mind to sign consent Visual Impairment: No Limitations Emergency Vehicle Driver Required: No Beliefs That Will Affect Care: None Current Living Situation: Personal Care Facility Current Living Situation Comment: [facility] Other Information That Helps Us Care for You: No Feels Safe at Home: Yes Safety Concerns: Feels Safe At This Time Assistive Devices: Glasses and Hospital Bed Assistive Devices Comment: Glasses with pt Review of Systems Review of Systems: All systems reviewed & are unremarkable except as noted in HPI & below Physical Exam Constitutional: + morbidly obese; no acute distress Respiratory: no respiratory distress and no labored breathing Musculoskeletal: Head/Neck/Chest: normocephalic Neurologic: moves all extremities and awake Psychiatric: Orientation: alert and oriented x 3 Genitourinary: Cobb patent and draining clear yellow urine with some sediment Results & Data Vital Signs (Past 12 Hours) Vital Signs Temp Pulse Pulse Resp BP BP Pulse Ox 12/18/24 08:17 12/18/24 07:51 36.8 C 68 18 138/83 95 12/18/24 07:00 69 12/18/24 05:09 70 16 138/78 95 12/18/24 02:26 12/18/24 02:09 36.3 C L 69 18 160/84 H 96 12/18/24 01:33 65 15 101/58 L 95 12/18/24 01:00 67 17 109/56 L 94 12/18/24 00:45 63 20 95 12/18/24 00:39 66 17 12/18/24 00:30 100/57 L 12/18/24 00:30 100/57 L 12/18/24 00:24 65 17 100/57 L 12/18/24 00:03 64 17 114/62 12/17/24 23:33 76 23 106/58 L 12/17/24 23:03 80 19 99 12/17/24 23:01 127/69 12/17/24 22:57 70 24 95 12/17/24 22:50 70 19 98/55 L 95 12/17/24 22:30 72 20 90/61 L 95 12/17/24 22:29 65 12/17/24 22:24 66 20 97 12/17/24 22:18 74 18 92 O2 Del Method 12/18/24 08:17 Room Air 12/18/24 07:51 Room Air 12/18/24 07:00 12/18/24 05:09 Room Air 12/18/24 02:26 Room Air 12/18/24 02:09 Room Air 12/18/24 01:33 12/18/24 01:00 12/18/24 00:45 12/18/24 00:39 12/18/24 00:30 12/18/24 00:30 12/18/24 00:24 12/18/24 00:03 12/17/24 23:33 12/17/24 23:03 Room Air 12/17/24 23:01 12/17/24 22:57 Room Air 12/17/24 22:50 Room Air 12/17/24 22:30 Room Air 12/17/24 22:29 12/17/24 22:24 Room Air 12/17/24 22:18 Room Air PG Care Time/CCT Total # of Minutes Spent Total Time Spent with Patient: Total time spent is greater than 50% in coordination of care (as documented) at patient's floor/unit and/or counseling patient: Coding Level of Care Code 07702 INT INP/OBS CARE MIN Diagnoses Ureteral stent present Z96.0 Acute pyelitis N10
[2024-12-18 10:30] LABS: Basophils # (auto) 0.02 K/uL (0.00-0.20); Basophils % (auto) 0.2 %; Eosinophils # (auto) 0.14 K/uL (0.00-0.50); Eosinophils % (auto) 1.7 %; Immature Granulocytes # (auto) 0.02 K/uL (0.01-0.20); Immature Granulocytes % (auto) 0.2 %; Lymphocytes # (auto) 1.36 K/uL (1.20-3.40); Lymphocytes % (auto) 16.7 %; Mean Corpuscular Hemoglobin 27.7 pg (25.0-34.0); Mean Corpuscular Hgb Conc 31.4 g/dL (32.0-36.0); Mean Corpuscular Volume 88.2 fL (80.0-100.0); Mean Platelet Volume 9.5 fL (9.4-12.4); Monocytes # (auto) 0.57 K/uL (0.11-0.59); Neutrophils # (auto) 6.03 K/uL (1.40-6.50); Neutrophils % (auto) 74.2 %; Platelet Count 230 K/uL (130-400); RDW Coefficient of Variation 15.2 % (11.5-14.5); RDW Standard Deviation 49.2 fL (36.4-46.3); Red Blood Count 3.97 M/uL (4.20-5.40); White Blood Count 8.14 K/ul (4.8-10.8)
--- NOTE | 2024-12-18 10:45 | Electrocardiogram Report ---
Test Reason : Blood Pressure : */* mmHG Vent. Rate : 91 BPM Atrial Rate : * BPM P-R Int : * ms QRS Dur : 90 ms QT Int : 366 ms P-R-T Axes : * -5 86 degrees QTcB Int : 450 ms Atrial fibrillation Cannot rule out Anterior infarct , age undetermined Nonspecific T wave abnormality Abnormal ECG When compared with ECG of 21-Aug-2024 09:52, Criteria for Inferior infarct is no longer Present Confirmed by Dandre Cuadra ([id number]) on 12/18/2024 10:45:09 AM Referred By: [facility] Confirmed By: Dandre Cuadra
[2024-12-18 10:56] LABS: BUN Creatinine Ratio 24.5 (10-20); Creatinine Clr Calc Pharmacy 94.6 ml/min; Potassium 3.9 mmol/L (3.5-5.1)
[2024-12-18 11:11] LABS: A calco-baum cmplx NotReported Not Detected (NotDetected); Bact fragilis Not Reported Not Detected (NotDetected); Blood Culture Id Panel See PCR Comment (NotDetected); C auris Not Reported Not Detected (NotDetected); CTX-M Resistant Gene Not Detected (NotDetected); Calbicans Not Reported Not Detected (NotDetected); Candida glabrata Not Reported Not Detected (NotDetected); Candida krusei Not Reported Not Detected (NotDetected); Cneoformans/gatti Not Reported Not Detected (NotDetected); Cparapsilosis Not Reported Not Detected (NotDetected); E cloacae compx Not Reported Not Detected (NotDetected); Efaecalis Not Reported Not Detected (NotDetected); Efaecium Not Reported Not Detected (NotDetected); Enterobacterales Not Reported DETECTED (NotDetected); Escherichia coli Not Reported DETECTED (NotDetected); H influenzae Not Reported Not Detected (NotDetected); IMP Resistant Gene Not Detected (NotDetected); K aerogenes Not Reported Not Detected (NotDetected); KPC Resistant Gene Not Detected (NotDetected); Koxytoca Not Reported Not Detected (NotDetected); Kpneumoniae grp Not Reported Not Detected (NotDetected); Lmonocyt Not Reported Not Detected (NotDetected); N meningitidis Not Reported Not Detected (NotDetected); NDM Resistant Gene Not Detected (NotDetected); OXA 48 Like Resistant Gene Not Detected (NotDetected); P aeruginosa Not Reported Not Detected (NotDetected); Proteus spp Not Reported Not Detected (NotDetected); Salmonella spp Not Reported Not Detected (NotDetected); Staph lugdunensis Not Reported Not Detected (NotDetected); Staph spp. Not Reported Not Detected (NotDetected); Staphaureus Not Reported Not Detected (NotDetected); Staphepi Not Reported Not Detected (NotDetected); Stenmaltophilia Not Reported Not Detected (NotDetected); Strep agal(GrpB) Not Reported Not Detected (NotDetected); Strep pneum Not Reported Not Detected (NotDetected); Strep pyog (GrpA) Not Reported Not Detected (NotDetected); Strep spp Not Reported Not Detected (NotDetected); VIM Resistant Gene Not Detected (NotDetected); mcr-1 Colistin Resistant Gene Not Detected (NotDetected)
[2024-12-18 11:19] LABS: Enterobacterales DETECTED (NotDetected)
--- NOTE | 2024-12-18 17:40 | Hospitalist Progress Note ---
Date of Service December 18, 2024 Assessment & Plan (1) Sepsis: Plan: Sepsis Secondary to complicated urinary tract infection History of stent placement for hydronephrosis left hx recurrent UTIs on chronic methenamine suppression Rx/urge incontinence/chronic indwelling Osorio catheter/urolithiasis Hematuria secondary to above history PE DVT/A-fib, on Eliquis Patient currently hemodynamically stable 12/18 Hemoglobin 12, now 11 Urine culture: Pending Blood cultures: Pending Daptomycin added to cefepime Follow-up cultures Urology service consulted, plan for stent exchange on Eliquis on hold valvular heart disease (mild AR/TR) hypertension hyperlipidemia, on statin Rx pulmonary hypertension bronchial asthma, not in exacerbation DM2 diet-controlled, well-controlled as of recent hemoglobin A1c of 5.7 last October 2024 endometrial cancer status post radiation chronic anemia, hemoglobin stable chronic lymphedema DVT prophylaxis. SCDs while Eliquis on hold re: hematuria DNR plan of care discussed with patient in detail and at length all questions answered she is understanding, agreeable, comfortable with the plan of care Admission and Anticipated Discharge Date Admission Date: December 17, 2024 Subjective follow-up for UTI in the setting of ureteral stent, etc. Seen resting in bed, comfortable, not in distress Still having left flank/back discomfort Reports chills at home Reports poor appetite No other new symptoms Review of Systems Review of Systems: all noted and negative except for above Physical Exam Physical Exam: General- oriented x 3, not in distress, speaks in sentences with no effort or accessory muscle use Eyes- anicteric Neck- no JVD Lungs- clear breath sounds bilaterally, no rales/wheezes Heart- normal rate, regular rhythm; no murmurs Abdomen- normal bowel sounds, nondistended, soft, mild left CVA tenderness Extremities- no pretibial edema, no calf tenderness Neuro- alert, oriented x 3; no gross focal neurologic deficits Skin- warm & dry Results & Data Results & Data Vital Signs (Past 12 Hours) Vital Signs Temp Pulse Pulse Pulse Resp BP BP 12/18/24 15:43 36.6 C 78 20 142/69 H 12/18/24 15:00 85 12/18/24 10:59 36.6 C 74 18 112/55 L 12/18/24 08:17 12/18/24 07:51 36.8 C 68 18 138/83 12/18/24 07:00 69 Pulse Ox O2 Del Method 12/18/24 15:43 94 Room Air 12/18/24 15:00 12/18/24 10:59 95 Room Air 12/18/24 08:17 Room Air 12/18/24 07:51 95 Room Air 12/18/24 07:00 all noted and reviewed including below
[2024-12-18] MEDS ORDERED: MIRTAZAPINE TAB 15 MG TAB PO SCH (21:00)
[2024-12-18] MEDS ORDERED: ATORVASTATIN 40 MG TAB PO SCH (21:00)
[2024-12-18] MEDS: DOCUSATE SODIUM 100 MG CAP PO SCH (21:03)
[2024-12-18] MEDS: METOPROLOL SUCC 25MG EXT REL TAB PO SCH (21:04)
[2024-12-18] MEDS: TAMSULOSIN HCL 0.4 MG CAP PO SCH (21:05)
[2024-12-18 21:56] LABS: A calco-baum cmplx NotReported Not Detected (NotDetected); Bact fragilis Not Reported Not Detected (NotDetected); Blood Culture Id Panel See PCR Comment (NotDetected); C auris Not Reported Not Detected (NotDetected); Calbicans Not Reported Not Detected (NotDetected); Candida glabrata Not Reported Not Detected (NotDetected); Candida krusei Not Reported Not Detected (NotDetected); Cneoformans/gatti Not Reported Not Detected (NotDetected); Cparapsilosis Not Reported Not Detected (NotDetected); E cloacae compx Not Reported Not Detected (NotDetected); Efaecalis Not Reported Not Detected (NotDetected); Efaecium Not Reported Not Detected (NotDetected); Enterobacterales Not Reported Not Detected (NotDetected); Escherichia coli Not Reported Not Detected (NotDetected); H influenzae Not Reported Not Detected (NotDetected); K aerogenes Not Reported Not Detected (NotDetected); Koxytoca Not Reported Not Detected (NotDetected); Kpneumoniae grp Not Reported Not Detected (NotDetected); Lmonocyt Not Reported Not Detected (NotDetected); N meningitidis Not Reported Not Detected (NotDetected); P aeruginosa Not Reported Not Detected (NotDetected); Proteus spp Not Reported Not Detected (NotDetected); Salmonella spp Not Reported Not Detected (NotDetected); Staph lugdunensis Not Reported Not Detected (NotDetected); Staph spp. Not Reported DETECTED (NotDetected); Staphaureus Not Reported Not Detected (NotDetected); Staphepi Not Reported DETECTED (NotDetected); Staphylococcus spp. DETECTED (NotDetected); Stenmaltophilia Not Reported Not Detected (NotDetected); Strep agal(GrpB) Not Reported Not Detected (NotDetected); Strep pneum Not Reported Not Detected (NotDetected); Strep pyog (GrpA) Not Reported Not Detected (NotDetected); Strep spp Not Reported Not Detected (NotDetected)
[2024-12-18 22:20] LABS: Staphylococcus epidermidis DETECTED (NotDetected); mecAC Resistant Gene DETECTED (NotDetected)
[2024-12-19] MEDS: FERROUS SULFATE 325 MG TAB PO SCH (09:40)
[2024-12-19] MEDS: oxyCODONE HCL IR 5 MG TAB (IMMEDIATE RELEASE) PO PRN (09:50)
[2024-12-19] MEDS: cefTRIAXone SODIUM 2,000 MG/50 ML BAG IV SCH (15:19)
--- NOTE | 2024-12-19 16:47 | Hospitalist Progress Note ---
Date of Service December 19, 2024 Assessment & Plan (1) Sepsis: Plan: Acute pyelitis Possible pressure ulcer of left buttock, stage 3 Sepsis Secondary to complicated urinary tract infection/Osorio catheter-associated UTI, POA History of stent placement for hydronephrosis left hx recurrent UTIs on chronic methenamine suppression Rx/urge incontinence/chronic indwelling Osorio catheter/urolithiasis Hematuria secondary to above history PE DVT/A-fib, on Eliquis Patient currently hemodynamically stable 12/19 Hemoglobin 12 --> 11 Urine culture: Three types of organisms present, all high counts. Repeat collection recommended. No further identifications or sensitivities to follow repeat Urine culture: ordered Blood cultures:E. coli, gram-positive cocci clusters (Staph epid per serology) Second blood culture ordered Dapto, cefepime transition to ceftriaxone Follow-up cultures ID consulted Urology service consulted, plan for stent exchange on Eliquis on hold valvular heart disease (mild AR/TR) hypertension hyperlipidemia, on statin Rx pulmonary hypertension bronchial asthma, not in exacerbation DM2 diet-controlled, well-controlled as of recent hemoglobin A1c of 5.7 last October 2024 endometrial cancer status post radiation chronic anemia, hemoglobin stable chronic lymphedema DVT prophylaxis. SCDs while Eliquis on hold re: hematuria DNR plan of care discussed with patient in detail and at length all questions answered she is understanding, agreeable, comfortable with the plan of care Admission and Anticipated Discharge Date Admission Date: December 17, 2024 Subjective Follow-up for UTI, in the setting of right ureteral stent,Bacteremia etc. seen resting in bed, comfortable, not in distress States she still has some mild right lower back discomfort Denies problems with urination No fevers or chills No other new symptoms Review of Systems Review of Systems: all noted and negative except for above Physical Exam Physical Exam: General- oriented x 3, not in distress, speaks in sentences with no effort or accessory muscle use Eyes- anicteric Neck- no JVD Lungs- clear breath sounds bilaterally, no rales/wheezes Heart- normal rate, regular rhythm; no murmurs Abdomen- normal bowel sounds, nondistended, soft, nontender (+) erythema in the sacral region, with small, superficial open wound in the gluteal cleft Extremities- no pretibial edema, no calf tenderness Neuro- alert, oriented x 3; no gross focal neurologic deficits Skin- warm & dry Results & Data Results & Data Vital Signs (Past 12 Hours) Vital Signs Temp Pulse Pulse Resp BP Pulse Ox O2 Del Method 12/19/24 16:00 36.7 C 78 17 133/54 L 96 Room Air 12/19/24 11:36 36.7 C 83 18 115/54 L 94 Room Air 12/19/24 08:04 36.7 C 76 20 133/66 94 Room Air 12/19/24 07:25 72 all noted and reviewed including below
[2024-12-19 19:18] LABS: Basophils # (auto) 0.03 K/uL (0.00-0.20); Basophils % (auto) 0.4 %; Eosinophils # (auto) 0.29 K/uL (0.00-0.50); Eosinophils % (auto) 3.6 %; Hematocrit (blood only) 35.9 % (37.0-47.0); Hemoglobin 11.1 g/dl (12.0-16.0); Immature Granulocytes # (auto) 0.02 K/uL (0.01-0.20); Immature Granulocytes % (auto) 0.2 %; Lymphocytes # (auto) 2.25 K/uL (1.20-3.40); Mean Corpuscular Hemoglobin 27.5 pg (25.0-34.0); Mean Corpuscular Hgb Conc 30.9 g/dL (32.0-36.0); Mean Corpuscular Volume 88.9 fL (80.0-100.0); Mean Platelet Volume 9.5 fL (9.4-12.4); Monocytes # (auto) 0.51 K/uL (0.11-0.59); Monocytes % (auto) 6.3 %; Neutrophils # (auto) 4.94 K/uL (1.40-6.50); Neutrophils % (auto) 61.5 %; Platelet Count 258 K/uL (130-400); RDW Coefficient of Variation 15.2 % (11.5-14.5); RDW Standard Deviation 49.1 fL (36.4-46.3); Red Blood Count 4.04 M/uL (4.20-5.40); White Blood Count 8.04 K/ul (4.8-10.8)
[2024-12-19 19:40] LABS: BUN Creatinine Ratio 23.3 (10-20); Calcium 9.1 mg/dl (8.6-10.3); Creatinine Clr Calc Pharmacy 53.2 ml/min
[2024-12-20 06:56] LABS: Basophils # (auto) 0.02 K/uL (0.00-0.20); Basophils % (auto) 0.3 %; Eosinophils # (auto) 0.37 K/uL (0.00-0.50); Eosinophils % (auto) 5.3 %; Hematocrit (blood only) 33.3 % (37.0-47.0); Hemoglobin 10.5 g/dl (12.0-16.0); Immature Granulocytes # (auto) 0.05 K/uL (0.01-0.20); Immature Granulocytes % (auto) 0.7 %; Lymphocytes # (auto) 2.13 K/uL (1.20-3.40); Lymphocytes % (auto) 30.4 %; Mean Corpuscular Hgb Conc 31.5 g/dL (32.0-36.0); Mean Corpuscular Volume 88.8 fL (80.0-100.0); Monocytes # (auto) 0.53 K/uL (0.11-0.59); Monocytes % (auto) 7.6 %; Neutrophils % (auto) 55.7 %; Platelet Count 229 K/uL (130-400); RDW Coefficient of Variation 15.1 % (11.5-14.5); RDW Standard Deviation 49.1 fL (36.4-46.3); Red Blood Count 3.75 M/uL (4.20-5.40)
[2024-12-20 07:38] LABS: BUN Creatinine Ratio 28.8 (10-20); Calcium 9.1 mg/dl (8.6-10.3); Creatinine Clr Calc Pharmacy 61.6 ml/min; Potassium 4.2 mmol/L (3.5-5.1)
--- NOTE | 2024-12-20 11:37 | Urology Progress Note ---
Date of Service December 20, 2024 Assessment & Plan (1) Pyelitis: (2) Chronic indwelling Osorio catheter: (3) Ureteral stent present: Plan: 79-year-old female with history of nephrolithiasis, chronic indwelling Osorio, recurrent UTIs and left ureteral stent last exchanged on 07/19/24 admitted for complicated UTI and pyelitis. Patient afebrile, hemodynamically stable Labs reviewedcreatinine 0.73, WBC 7.0, hemoglobin 10.5 Urine culture 12/17/24 with 3 types of organisms present, and high counts Blood cultures 12/17/24 with E. coli and Staphylococcus epidermidis and Staphylococcus capitis Repeat urine and blood cultures are pending Currently on IV ceftriaxone Will plan for cystoscopy, left ureteral stent exchange and insertion of right ureteral stent on 12/21/[address] Thorpe Make NPO at midnight for procedure Continue broad spectrum antibiotics per hospital medicine/ID Maintain Osorio catheter She reports Osorio catheter has been leaking and was exchanged yesterday by nursing Osorio is patent, so suspect leaking around catheter is due to bladder spasms She has oxybutynin ordered prn, but according to chart has not utilized it Can continue with oxybutynin as needed for bladder spasms or change to scheduled dosing will follow Admission and Anticipated Discharge Date Admission Date: December 17, 2024 Subjective Patient seen and examined at bedside this am. She reports left flank discomfort which she attributes to stent or positioning. No right flank pain. No fever or chills. Osorio intact. Reports it was exchanged yesterday, but still has some leaking around catheter. Review of Systems Constitutional: as per Subjective / HPI Genitourinary: as per Subjective / HPI Physical Exam Constitutional: + morbidly obese; no acute distress Respiratory: no respiratory distress and no labored breathing Musculoskeletal: Head/Neck/Chest: normocephalic Neurologic: moves all extremities and awake Psychiatric: Orientation: alert and oriented x 3 Genitourinary: Osorio patent and draining clear yellow urine with some sediment Results & Data Vital Signs (Past 12 Hours) Vital Signs Temp Pulse Resp BP Pulse Ox O2 Del Method 12/20/24 11:20 36.7 C 79 18 161/79 H 94 Room Air 12/20/24 07:31 36.5 C 73 18 104/57 L 92 Room Air 04/09/25 03:00 36.5 C 75 18 122/68 92 Room Air 12/19/24 23:47 Room Air PG Care Time/CCT Total # of Minutes Spent Total Time Spent with Patient: Total time spent is greater than 50% in coordination of care (as documented) at patient's floor/unit and/or counseling patient: Coding Level of Care Code 28709 SUB INP/OBS CARE 2/35MIN Diagnoses Pyelitis N12 Chronic indwelling Osorio catheter Z97.8 Ureteral stent present Z96.0
--- NOTE | 2024-12-20 14:41 | Infectious Disease Consult ---
Date of Service December 20, 2024 Telehealth Information I performed this visit using a real-time telehealth connection between my location and the patients location ([facility]). After connecting through interactive tele-video, patient was identified by name and date of and/or wristband check.Patient (or authorized healthcare ict sales representative) was informed that this was a telemedicine visit and it was being conducted confidentially over secure lines. My office door was closed and no one else was present in the room with me.Patient (or authorized healthcare ict sales representative) provided consent to proceed with the visit, expressed an understanding of privacy and security of the telemedicine visit, and gave permission to have a hospital ict sales representative in the room in order to assist with the visit and to conduct portions of the visit, as needed. I informed the patient (or authorized healthcare ict sales representative) that I reviewed their record and presented the opportunity for them to ask any questions regarding the visit today. The patient agreed to participate. Assessment & Plan (1) E coli bacteremia: (2) Pyelitis: (3) Ureteral stent present: (4) Chronic indwelling Cobb catheter: Plan - Coagulase-negative staph including staph epidermidis and Staph capitis could be a contamination; however, Bacteroides is less likely a contamination which might suggest that the pyelitis could be polymicrobial. Therefore, I would recommend switching IV ceftriaxone to IV piperacillin tazobactam at this point. - If the repeat blood culture, grew the coagulase-negative staph again, then I would recommend restarting Gram-positive coverage with either vancomycin or daptomycin. - Urology team are on board and planning for cystoscopy and possible stent exchange in the next couple of days. - we will follow up on the urine culture sent today and adjust the antibiotics accordingly. - thank you for your consult. We will continue to follow. History of Present Illness History of Present Illness Ms. Brumfield is a 79-year-old woman with medical history of HTN, type 2 diabetes, endometrial cancer status post radiation, morbid obesity with lymphedema, history of nephrolithiasis and chronic indwelling Cobb catheter who was admitted to [facility] on 12/17/2024 because of left lower quadrant pain and hematuria. On presentation, she was afebrile but tachycardic; otherwise, the rest of the vitals were within normal limits. Initial blood workup showed mild leukocytosis of 11, UA with more than 50 WBCs and 4+ bacteria. CT abdomen pelvis showed a stable left nephroureteral stent with continued evidence of pyelitis or ureteritis. Shortly after admission, blood culture came back positive for coagulase-negative staph, E coli and Bacteroides. ID team was consulted for further recommendations and to help guide antibiotic treatment. Allergies Allergy/AdvReac Type Severity Reaction Status Date / Time doxycycline Allergy Intermediate Swelling Verified 08/14/24 15:45 tetracycline Allergy Mild Eye Verified 08/14/24 15:45 swelling NARINDER Inhibitors AdvReac Intermediate Cough Verified 08/14/24 15:45 codeine AdvReac Mild Sherrill Verified 08/14/24 15:45 "crazy" Sulfa (Sulfonamide AdvReac Mild Gastrointestinal Verified 08/14/24 15:45 Antibiotics) Upset Home Medications Medication Instructions Recorded Confirmed Type acetaminophen 500 mg tablet 500 mg PO Q6H PRN Fever Or Pain 06/28/23 12/17/24 History (Tylenol Extra Strength) apixaban 5 mg tablet (Eliquis) 5 mg PO AMHS 06/28/23 12/17/24 History atorvastatin 80 mg tablet 80 mg PO HS 06/28/23 12/17/24 History metoprolol succinate 50 mg 50 mg PO AMHS 06/28/23 12/17/24 History tablet,extended release 24 hr spironolactone 25 mg tablet 25 mg PO QAM 06/28/23 12/17/24 History docusate sodium 100 mg capsule 200 mg PO HS 09/14/23 12/17/24 History (Colace) ferrous sulfate 325 mg (65 mg 325 mg PO Q OTHER DAY 04/03/24 12/17/24 History iron) tablet,delayed release montelukast 10 mg tablet 10 mg PO QAM 04/03/24 12/17/24 History tamsulosin 0.4 mg capsule 0.4 mg PO HS #30 caps 06/14/24 12/17/24 Rx methenamine hippurate 1 gram tablet 1 g PO BID #60 tabs 06/15/24 12/17/24 Rx ascorbic acid (vitamin C) 500 mg 500 mg PO BID 07/10/24 12/17/24 History tablet (Vitamin C) oxybutynin chloride 5 mg tablet 5 mg PO Q8H PRN bladder spasms #30 07/17/24 12/17/24 Rx tabs Saccharomyces boulardii 250 mg 250 mg PO QAM 08/14/24 12/17/24 History capsule (Florastor) cranberry extract 500 mg capsule 500 mg PO QAM 08/14/24 12/17/24 History (Cranberry Concentrate) diclofenac sodium 1 % topical gel 2 g EXT QID Pain 08/14/24 12/17/24 History (Voltaren Arthritis Pain) zinc oxide 20 % topical ointment 1 applic topical BID 08/14/24 12/17/24 History water for irrigation, sterile 1 irrig irrigation DAILY PRN 12/08/24 12/17/24 Rx (Curity Sterile Water irrigation catheter occlusion #6,000 mL solution) mirtazapine 15 mg tablet 22.5 mg PO BID 12/17/24 12/17/24 History sennosides 8.6 mg tablet (senna) 17.2 mg PO HS PRN Constipation 12/17/24 12/17/24 History Patient History Medical History Obesity Pulmonary hypertension moderate per 06/2023 ECHO (PASP 47mmHg) Skin breakdown sacral skin breakdown per 06/2024 hospitalization; pt to follow with wound care at [facility] 2 or more hospital admissions in past 6 months admitted [facility] 06/08-06/15/24: dx: complicated UTI, chronic indwelling cobb catheter, calculus of L kidney, b/l hydronephrosis. admitted [facility] 06/26- 06/30/24: dx: infection associated with indwelling uteretal stent, hematuria, acute L flank pain: pt D/C on Cefdinir (pt also noted to have sacral skin area breakdown during admission and pt to f/u with wound care at [facility]) History of anemia History of posterior vitreous detachment B/L History of asthma "Well controlled" Chronic indwelling Cobb catheter Hydronephrosis of left kidney Diabetes mellitus, type II Diet controlled Overactive bladder HTN (hypertension) GERD (gastroesophageal reflux disease) Hyperlipidemia Hx of vertigo Hx of cancer of uterus 2013- radiation Hx pulmonary embolism Remote hx years ago In setting of prolonged sitting/immobility during a previous hospitalization per records Urinary retention Cobb cath in place Atrial fibrillation Taking Eliquis History of home oxygen therapy not currently senior living resident Resides at [facility] Nontoxic thyroid nodule Hx: UTI (urinary tract infection) Recurrent Hx of sepsis Lipodermatosclerosis Chronic bronchitis 'Bronchial asthma' Acquired lymphedema "Stomach" Gets therapy/massage to manage > was complication after radiation treatment per previous PAT RN notation IBS (irritable bowel syndrome) Surgical History History of anesthesia reaction Awareness with D&C and colonoscopy History of open reduction and internal fixation (ORIF) procedure (06/2023) left femur fx Hx of cystoscopy Multiple; most recent: 04/13/24: MAC without issue History of cataract surgery (2020) R/L History of dilatation and curettage History of esophagogastroduodenoscopy (EGD) History of colonoscopy History of bilateral tubal ligation History of cholecystectomy Hx of hernia repair (12/2017) Ventral hernia with mesh History of tooth extraction History of cardiac cath (02/18/11) @ [facility]--No stents Family History Other No family history of adverse response to anesthesia Social History Smoking Status: Never smoker Second Hand Exposure: No; Do You Dip or Chew Tobacco: No; Hx Alcohol Use: No Hx Substance Use: No Preferred Language: Guinean Communication Ability: Effective Communication Ability Comment: alert and oriented x3 - of sound mind to sign consent Visual Impairment: No Limitations Bee Raiser Required: No Beliefs That Will Affect Care: None Current Living Situation: Personal Care Facility Current Living Situation Comment: [facility] Other Information That Helps Us Care for You: No Feels Safe at Home: Yes Safety Concerns: Feels Safe At This Time Assistive Devices: Glasses and Hospital Bed Assistive Devices Comment: Glasses with pt Review of Systems Negative except for what was mentioned in the H&P. Physical Exam Could not be performed as the encounter was conducted via TeleMed. Results & Data Vital Signs (Past 12 Hours) Vital Signs Temp Pulse Resp BP Pulse Ox O2 Del Method 12/20/24 11:20 36.7 C 79 18 161/79 H 94 Room Air 12/20/24 07:31 36.5 C 73 18 104/57 L 92 Room Air 12/20/24 03:00 36.5 C 75 18 122/68 92 Room Air Laboratory Results Microbiology: 12/17: 1 of 4 bottles of blood culture growing Bacteroides 12/17: 1 of 4 bottles of blood culture growing E coli 12/17: 1 of 4 bottles of blood culture growing Staph capitis and Staph epidermidis 12/17: Urine culture growing 3 types of organisms 12/19: 2 sets of blood culture negative to date Diagnostic Findings Imaging: CT abdomen pelvis on 12/17: Stable left nephroureteral stent, in good position, with continued evidence of pyelitis and ureteritis, possibly reactive. Interval decrease in subcutaneous edema about the posterior left hip and buttock region, possibly due to chronic decubitus positioning
[2024-12-20] MEDS: oxyBUTYnin chloride 5 MG TAB PO PRN (14:56)
--- NOTE | 2024-12-20 17:48 | Hospitalist Progress Note ---
Date of Service December 20, 2024 Assessment & Plan (1) Sepsis: Plan: Acute pyelitis Possible pressure ulcer of left buttock, stage 3 Sepsis Secondary to complicated urinary tract infection/Osorio catheter-associated UTI, POA History of stent placement for hydronephrosis left hx recurrent UTIs on chronic methenamine suppression Rx/urge incontinence/chronic indwelling Osorio catheter/urolithiasis Hematuria secondary to above history PE DVT/A-fib, on Eliquis Patient currently hemodynamically stable 4/8 Hemoglobin 12 --> 11 Urine culture: Three types of organisms present, all high counts. Repeat collection recommended. No further identifications or sensitivities to follow repeat Urine culture: ordered Blood cultures: E. coli, gram-positive cocci clusters (Staph epid, Staph capitis per serology), Bacteroides Second blood culture ordered Dapto, cefepime transitioned to ceftriaxone Follow-up cultures ID consulted - recommend to stop ceftriaxone for now and switch to zosyn, follow up cultx Urology service consulted, plan for stent exchange on Eliquis on hold valvular heart disease (mild AR/TR) hypertension hyperlipidemia, on statin Rx pulmonary hypertension bronchial asthma, not in exacerbation DM2 diet-controlled, well-controlled as of recent hemoglobin A1c of 5.7 last October 2024 endometrial cancer status post radiation chronic anemia, hemoglobin stable chronic lymphedema DVT prophylaxis. SCDs while Eliquis on hold re: hematuria DNR Admission and Anticipated Discharge Date Admission Date: December 17, 2024 Subjective Follow-up for UTI, in the setting of right ureteral stent,Bacteremia etc. seen resting in bed, comfortable, not in distress no chest pain, shortness of breath or abd. pain +some mild right lower back discomfort No other new symptoms seen by ID abx switched to zosyn Review of Systems Review of Systems: All systems reviewed & are unremarkable except as noted in Subjective Physical Exam Physical Exam: General- oriented x 3, not in distress, speaks in sentences with no effort or accessory muscle use Eyes- anicteric Neck- no JVD Lungs- clear breath sounds bilaterally, no rales/wheezes Heart- normal rate, regular rhythm; no murmurs Abdomen- normal bowel sounds, nondistended, soft, nontender (+) erythema in the sacral region, with small, superficial open wound in the gluteal cleft Extremities- no pretibial edema, no calf tenderness Neuro- alert, oriented x 3; no gross focal neurologic deficits Skin- warm & dry Results & Data Results & Data Vital Signs (Past 12 Hours) Vital Signs Temp Pulse Pulse Resp BP Pulse Ox O2 Del Method 12/20/24 16:00 70 12/20/24 15:55 36.8 C 70 18 123/70 94 Room Air 12/20/24 11:20 36.7 C 79 18 161/79 H 94 Room Air 12/20/24 08:00 65 12/20/24 07:31 36.5 C 73 18 104/57 L 92 Room Air Laboratory Results 12/20/24 12/20/24 12/20/24 Range/Units 17:03 12:27 08:16 WBC (4.8-10.8) K/ul RBC (4.20-5.40) M/uL Hgb (12.0-16.0) g/dl Hct (37.0-47.0) % MCV (80.0-100.0) fL MCH (25.0-34.0) pg MCHC (32.0-36.0) g/dL RDW Std Deviation (36.4-46.3) fL RDW Coeff of Rodolfo (11.5-14.5) % Plt Count (130-400) K/uL MPV (9.4-12.4) fL Immature Gran % (Auto) % Neut % (Auto) % Lymph % (Auto) % [place] % (Auto) % Eos % (Auto) % Baso % (Auto) % Neut # (Auto) (1.40-6.50) K/uL Lymph # (Auto) (1.20-3.40) K/uL [place] # (Auto) (0.11-0.59) K/uL Eos # (Auto) (0.00-0.50) K/uL Baso # (Auto) (0.00-0.20) K/uL Immature Gran # (Auto) (0.01-0.20) K/uL Sodium (136-145) mmol/L Potassium (3.5-5.1) mmol/L Chloride (98-107) mmol/L Carbon Dioxide (21-32) mmol/L Anion Gap (3-11) BUN (6-23) mg/dl Creatinine (0.6-1.2) mg/dl Est Cr Clr Drug Dosing ml/min eGFR BUN/Creatinine Ratio (10-20) Glucose (70-99(Fasting)) mg/dl POC Glucose 117 H 155 H 96 (70-99) mg/dl Calcium (8.6-10.3) mg/dl 12/20/24 12/19/24 Range/Units 06:03 18:55 WBC 7.00 8.04 (4.8-10.8) K/ul RBC 3.75 L 4.04 L (4.20-5.40) M/uL Hgb 10.5 L 11.1 L (12.0-16.0) g/dl Hct 33.3 L 35.9 L (37.0-47.0) % MCV 88.8 88.9 (80.0-100.0) fL MCH 28.0 27.5 (25.0-34.0) pg MCHC 31.5 L 30.9 L (32.0-36.0) g/dL RDW Std Deviation 49.1 H 49.1 H (36.4-46.3) fL RDW Coeff of Rodolfo 15.1 H 15.2 H (11.5-14.5) % Plt Count 229 258 (130-400) K/uL MPV 10.0 9.5 (9.4-12.4) fL Immature Gran % (Auto) 0.7 0.2 % Neut % (Auto) 55.7 61.5 % Lymph % (Auto) 30.4 28.0 % [place] % (Auto) 7.6 6.3 % Eos % (Auto) 5.3 3.6 % Baso % (Auto) 0.3 0.4 % Neut # (Auto) 3.90 4.94 (1.40-6.50) K/uL Lymph # (Auto) 2.13 2.25 (1.20-3.40) K/uL [place] # (Auto) 0.53 0.51 (0.11-0.59) K/uL Eos # (Auto) 0.37 0.29 (0.00-0.50) K/uL Baso # (Auto) 0.02 0.03 (0.00-0.20) K/uL Immature Gran # (Auto) 0.05 0.02 (0.01-0.20) K/uL Sodium 140 138 (136-145) mmol/L Potassium 4.2 4.0 (3.5-5.1) mmol/L Chloride 107 104 (98-107) mmol/L Carbon Dioxide 29 28 (21-32) mmol/L Anion Gap 4 6 (3-11) BUN 21 20 (6-23) mg/dl Creatinine 0.73 0.86 D (0.6-1.2) mg/dl Est Cr Clr Drug Dosing 61.6 53.2 ml/min eGFR 84.12 69.10 BUN/Creatinine Ratio 28.8 H 23.3 H (10-20) Glucose 99 138 H (70-99(Fasting)) mg/dl POC Glucose (70-99) mg/dl Calcium 9.1 9.1 (8.6-10.3) mg/dl Medications Administered Current Inpatient Medications Acetaminophen (Acetaminophen 500 Mg Tab) 500 mg PO Q6H PRN PRN Reason: Fever Or Pain Stop: 01/16/25 22:29 Last Admin: 12/18/24 18:34 Dose: 500 mg Dextrose (Dextrose 50% 50 Ml Syringe) 25 - 50 ml IV UD PRN; Protocol PRN Reason: Hypoglycemia Protocol Stop: 01/17/25 02:07 Docusate Sodium (Docusate Sodium 100 Mg Cap) 200 mg PO HS [facility] Stop: 01/17/25 20:59 Last Admin: 12/19/24 21:38 Dose: 200 mg Ferrous Sulfate (Ferrous Sulfate 325 Mg Tab) 325 mg PO Q2D [facility] Stop: 01/18/25 08:59 Last Admin: 12/19/24 09:40 Dose: 325 mg Glucagon (Glucagon For Inj 1 Mg Vial) 1 mg SQ UD PRN; Protocol PRN Reason: Hypoglycemia Protocol Stop: 01/17/25 02:07 Glucose (Glucose 40% Gel 15 Gm Tube) 15 - 30 gm PO UD PRN; Protocol PRN Reason: Hypoglycemia Protocol Stop: 01/17/25 02:07 Glucose (Glucose 10 Tab/Tube) 4 - 8 tab PO UD PRN; Protocol PRN Reason: Hypoglycemia Protocol Stop: 01/17/25 02:07 Promethazine HCl (Phenergan) 6.25 mg in 50.25 mls @ 201 mls/hr IV Q6H PRN PRN Reason: Nausea And Vomiting Stop: 01/16/25 22:33 Ceftriaxone Sodium (Rocephin) 2,000 mg in 50 mls @ 100 mls/hr IV Q24H [facility] Stop: 01/02/25 13:59 Last Infusion: 12/20/24 16:08 Dose: Infused Insulin Aspart (Insulin Aspart Per Unit Charge) 0 units SC [facility] Stop: 01/17/25 02:07 Last Admin: 12/20/24 13:55 Dose: Not Given Metoprolol Succinate (Metoprolol Succ 25mg Ext Rel Tab) 25 mg PO [facility] Stop: 01/17/25 20:59 Last Admin: 12/20/24 09:45 Dose: 25 mg Mirtazapine (Mirtazapine Tab 15 Mg Tab) 22.5 mg PO BID [facility] Stop: 01/16/25 22:44 Last Admin: 12/20/24 09:46 Dose: 22.5 mg Miscellaneous (Carbohydrates For Hypoglycemia ) 15 - 30 gm PO UD PRN PRN Reason: Hypoglycemia Protocol Stop: 01/17/25 02:07 Montelukast Sodium (Montelukast Sodium 10 Mg Tablet) 10 mg PO [facility] Stop: 01/17/25 08:59 Last Admin: 12/20/24 09:55 Dose: Not Given Oxybutynin Chloride (Oxybutynin Chloride 5 Mg Tab) 5 mg PO Q8H PRN PRN Reason: bladder spasms Stop: 01/16/25 22:31 Last Admin: 12/20/24 14:56 Dose: 5 mg Oxycodone HCl (Oxycodone Hcl Ir 5 Mg Tab (Immediate Release)) 5 mg PO Q4H PRN PRN Reason: Pain Stop: 12/31/24 22:33 Last Admin: 12/20/24 11:47 Dose: 5 mg Saccharomyces Boulardii (Saccharomyces Boulardii 250 Mg Cap) 250 mg PO QAM [facility] Stop: 01/17/25 08:59 Last Admin: 12/20/24 09:47 Dose: 250 mg Sennosides (Senna 8.6 Mg Tab) 17.2 mg PO HS PRN PRN Reason: Constipation Stop: 01/16/25 22:31 Last Admin: 12/18/24 09:12 Dose: 17.2 mg Tamsulosin HCl (Tamsulosin Hcl 0.4 Mg Cap) 0.4 mg PO HS [facility] Stop: 01/17/25 20:59 Last Admin: 12/19/24 21:40 Dose: 0.4 mg
[2024-12-20] MEDS: PIPERACILLIN/TAZOBACTAM 4.5 GM/100 ML BAG IV ONE (19:17)
[2024-12-20] MEDS: PIPERACILLIN/TAZOBACTAM 4.5 GM/100 ML BAG IV SCH (23:54)
[2024-12-21 06:31] LABS: Hematocrit (blood only) 32.9 % (37.0-47.0); Hemoglobin 10.1 g/dl (12.0-16.0); Mean Corpuscular Hemoglobin 27.4 pg (25.0-34.0); Mean Corpuscular Hgb Conc 30.7 g/dL (32.0-36.0); Mean Corpuscular Volume 89.4 fL (80.0-100.0); Mean Platelet Volume 9.5 fL (9.4-12.4); Platelet Count 246 K/uL (130-400); RDW Coefficient of Variation 15.3 % (11.5-14.5); RDW Standard Deviation 49.9 fL (36.4-46.3); Red Blood Count 3.68 M/uL (4.20-5.40); White Blood Count 7.15 K/ul (4.8-10.8)
[2024-12-21 06:56] LABS: Magnesium 1.9 mg/dl (1.7-2.4)
[2024-12-21 07:01] LABS: BUN Creatinine Ratio 36.2 (10-20); Creatinine Clr Calc Pharmacy 86.5 ml/min; Phosphorus 3.7 mg/dl (2.5-4.9)
--- NOTE | 2024-12-21 08:18 | Hospitalist Progress Note ---
Date of Service December 21, 2024 Assessment & Plan (1) Sepsis: Plan: Acute pyelitis Possible pressure ulcer of left buttock, stage 3 Sepsis Secondary to complicated urinary tract infection/Osorio catheter-associated UTI, POA History of stent placement for hydronephrosis left hx recurrent UTIs on chronic methenamine suppression Rx/urge incontinence/chronic indwelling Osorio catheter/urolithiasis Hematuria secondary to above history PE DVT/A-fib, on Eliquis Patient currently hemodynamically stable 12/19 Hemoglobin 12 --> 11 Urine culture: Three types of organisms present, all high counts. Repeat collection recommended. No further identifications or sensitivities to follow repeat Urine culture: ordered Blood cultures: E. coli, gram-positive cocci clusters (Staph epid, Staph capitis per serology), Bacteroides Second blood culture ordered Dapto, cefepime transitioned to ceftriaxone Follow-up cultures ID consulted - recommend to stop ceftriaxone for now and switch to zosyn, follow up cultx (12/20/24) Urology service consulted, pt now s/p stent exchange today (12/21/24) Eliquis on hold valvular heart disease (mild AR/TR) hypertension hyperlipidemia, on statin Rx pulmonary hypertension bronchial asthma, not in exacerbation DM2 diet-controlled, well-controlled as of recent hemoglobin A1c of 5.7 last October 2024 endometrial cancer status post radiation chronic anemia, hemoglobin stable chronic lymphedema DVT prophylaxis. SCDs while Eliquis on hold re: hematuria DNR Admission and Anticipated Discharge Date Admission Date: December 17, 2024 Subjective Follow-up for UTI, hx of ureteral stent,Bacteremia etc. S/p ureteral stent exchange today (12/21/24) seen resting in bed, comfortable, not in distress no chest pain, shortness of breath or abd. pain + some mild lower back discomfort No other new symptoms seen by ID abx switched to zosyn yesterday, follow cultx Review of Systems Review of Systems: All systems reviewed & are unremarkable except as noted in Subjective Physical Exam Physical Exam: General- oriented x 3, not in distress, speaks in sentences with no effort or accessory muscle use Eyes- anicteric Neck- no JVD Lungs- clear breath sounds bilaterally, no rales/wheezes Heart- normal rate, regular rhythm; no murmurs Abdomen- normal bowel sounds, nondistended, soft, nontender (+) erythema in the sacral region, with small, superficial open wound in the gluteal cleft Extremities- no pretibial edema, no calf tenderness Neuro- alert, oriented x 3; no gross focal neurologic deficits Skin- warm & dry Results & Data Results & Data Vital Signs (Past 12 Hours) Vital Signs Temp Pulse Resp BP BP Pulse Ox O2 Del Method 12/21/24 07:55 36.5 C 64 18 109/70 94 Room Air 12/21/24 03:08 36.6 C 65 18 110/65 93 Room Air 12/20/24 23:00 36.7 C 76 18 109/58 L 94 Room Air Laboratory Results 12/21/24 12/20/24 12/20/24 Range/Units 05:46 20:16 17:03 WBC 7.15 (4.8-10.8) K/ul RBC 3.68 L (4.20-5.40) M/uL Hgb 10.1 L (12.0-16.0) g/dl Hct 32.9 L (37.0-47.0) % MCV 89.4 (80.0-100.0) fL MCH 27.4 (25.0-34.0) pg MCHC 30.7 L (32.0-36.0) g/dL RDW Std Deviation 49.9 H (36.4-46.3) fL RDW Coeff of Rodolfo 15.3 H (11.5-14.5) % Plt Count 246 (130-400) K/uL MPV 9.5 (9.4-12.4) fL Sodium 138 (136-145) mmol/L Potassium 4.0 (3.5-5.1) mmol/L Chloride 105 (98-107) mmol/L Carbon Dioxide 27 (21-32) mmol/L Anion Gap 6 (3-11) BUN 21 (6-23) mg/dl Creatinine 0.58 L (0.6-1.2) mg/dl Est Cr Clr Drug Dosing 86.5 ml/min eGFR 92.57 BUN/Creatinine Ratio 36.2 H (10-20) Glucose 90 (70-99(Fasting)) mg/dl POC Glucose 134 H 117 H (70-99) mg/dl Calcium 9.0 (8.6-10.3) mg/dl Phosphorus 3.7 (2.5-4.9) mg/dl Magnesium 1.9 (1.7-2.4) mg/dl 12/20/24 12/20/24 Range/Units 12:27 08:16 WBC (4.8-10.8) K/ul RBC (4.20-5.40) M/uL Hgb (12.0-16.0) g/dl Hct (37.0-47.0) % MCV (80.0-100.0) fL MCH (25.0-34.0) pg MCHC (32.0-36.0) g/dL RDW Std Deviation (36.4-46.3) fL RDW Coeff of Rodolfo (11.5-14.5) % Plt Count (130-400) K/uL MPV (9.4-12.4) fL Sodium (136-145) mmol/L Potassium (3.5-5.1) mmol/L Chloride (98-107) mmol/L Carbon Dioxide (21-32) mmol/L Anion Gap (3-11) BUN (6-23) mg/dl Creatinine (0.6-1.2) mg/dl Est Cr Clr Drug Dosing ml/min eGFR BUN/Creatinine Ratio (10-20) Glucose (70-99(Fasting)) mg/dl POC Glucose 155 H 96 (70-99) mg/dl Calcium (8.6-10.3) mg/dl Phosphorus (2.5-4.9) mg/dl Magnesium (1.7-2.4) mg/dl Medications Administered Current Inpatient Medications Acetaminophen (Acetaminophen 500 Mg Tab) 500 mg PO Q6H PRN PRN Reason: Fever Or Pain Stop: 01/16/25 22:29 Last Admin: 12/18/24 18:34 Dose: 500 mg Dextrose (Dextrose 50% 50 Ml Syringe) 25 - 50 ml IV UD PRN; Protocol PRN Reason: Hypoglycemia Protocol Stop: 01/17/25 02:07 Docusate Sodium (Docusate Sodium 100 Mg Cap) 200 mg PO HS ANA PAULA Stop: 01/17/25 20:59 Last Admin: 12/20/24 20:19 Dose: 200 mg Ferrous Sulfate (Ferrous Sulfate 325 Mg Tab) 325 mg PO Q2D ANA PAULA Stop: 01/18/25 08:59 Last Admin: 12/19/24 09:40 Dose: 325 mg Glucagon (Glucagon For Inj 1 Mg Vial) 1 mg SQ UD PRN; Protocol PRN Reason: Hypoglycemia Protocol Stop: 01/17/25 02:07 Glucose (Glucose 40% Gel 15 Gm Tube) 15 - 30 gm PO UD PRN; Protocol PRN Reason: Hypoglycemia Protocol Stop: 01/17/25 02:07 Glucose (Glucose 10 Tab/Tube) 4 - 8 tab PO UD PRN; Protocol PRN Reason: Hypoglycemia Protocol Stop: 01/17/25 02:07 Promethazine HCl (Phenergan) 6.25 mg in 50.25 mls @ 201 mls/hr IV Q6H PRN PRN Reason: Nausea And Vomiting Stop: 01/16/25 22:33 Piperacillin Sod/Tazobactam Sod (Zosyn) 4.5 gm in 100 mls @ 25 mls/hr IV Q8H ANA PAULA; Protocol Stop: 01/04/25 00:29 Last Infusion: 12/21/24 03:56 Dose: Infused Insulin Aspart (Insulin Aspart Per Unit Charge) 0 units SC ACHS [facility] Stop: 01/17/25 02:07 Last Admin: 12/20/24 20:20 Dose: Not Given Metoprolol Succinate (Metoprolol Succ 25mg Ext Rel Tab) 25 mg PO AMHS [facility] Stop: 01/17/25 20:59 Last Admin: 12/20/24 20:19 Dose: 25 mg Mirtazapine (Mirtazapine Tab 15 Mg Tab) 22.5 mg PO BID [facility] Stop: 01/16/25 22:44 Last Admin: 12/20/24 20:20 Dose: 22.5 mg Miscellaneous (Carbohydrates For Hypoglycemia ) 15 - 30 gm PO UD PRN PRN Reason: Hypoglycemia Protocol Stop: 01/17/25 02:07 Montelukast Sodium (Montelukast Sodium 10 Mg Tablet) 10 mg PO QAM [facility] Stop: 01/17/25 08:59 Last Admin: 12/20/24 09:55 Dose: Not Given Oxybutynin Chloride (Oxybutynin Chloride 5 Mg Tab) 5 mg PO Q8H PRN PRN Reason: bladder spasms Stop: 01/16/25 22:31 Last Admin: 12/20/24 23:54 Dose: 5 mg Oxycodone HCl (Oxycodone Hcl Ir 5 Mg Tab (Immediate Release)) 5 mg PO Q4H PRN PRN Reason: Pain Stop: 12/31/24 22:33 Last Admin: 12/20/24 23:54 Dose: 5 mg Saccharomyces Boulardii (Saccharomyces Boulardii 250 Mg Cap) 250 mg PO QAM [facility] Stop: 01/17/25 08:59 Last Admin: 12/20/24 09:47 Dose: 250 mg Sennosides (Senna 8.6 Mg Tab) 17.2 mg PO HS PRN PRN Reason: Constipation Stop: 01/16/25 22:31 Last Admin: 12/18/24 09:12 Dose: 17.2 mg Tamsulosin HCl (Tamsulosin Hcl 0.4 Mg Cap) 0.4 mg PO HS [facility] Stop: 01/17/25 20:59 Last Admin: 12/20/24 20:19 Dose: 0.4 mg
--- NOTE | 2024-12-21 09:06 | Urology Progress Note ---
<Statement entered by Darinel Thorpe MD - 12/21/24 10:22> 79-year-old female with history of nephrolithiasis, longstanding indwelling ureteral stent on the left. Most recent CT scan demonstrated likely debris in the right UPJ. No significant hydronephrosis, however debris could be in a position of obstructing. We will plan on cystoscopy, bilateral retrograde pyelogram, left ureteral stent exchange, right ureteral stent insertion to ensure maximal drainage of the upper tracts in the setting of UTI. Date of Service December 21, 2024 Assessment & Plan (1) Pyelitis: (2) Chronic indwelling Osorio catheter: (3) Ureteral stent present: Plan: 79-year-old female with history of nephrolithiasis, chronic indwelling Osorio, recurrent UTIs and left ureteral stent (last exchanged on 07/19/24) admitted on 12/17/24 for complicated UTI and pyelitis. Patient afebrile, hemodynamically stable Labs reviewedcreatinine 0.58, WBC 7.15, hemoglobin 10.1 Urine culture 12/17/24 with 3 types of organisms present, and high counts Blood cultures 12/17/24 with E. coli, Bacteroides fragilis, Staphylococcus epidermidis and Staphylococcus capitis Repeat urine culture pending Repeat blood cultures with no growth x 24 hours ID consulted and recommended switching from Ceftriaxone to Zosyn Plan for cystoscopy, left ureteral stent exchange and insertion of right ureteral stent today with Dr. Thorpe as previously discussed Keep NPO for procedure Maintain Osorio catheter Oxybutynin seems to be helping with bladder spasms/leaking around catheter--continue will follow Admission and Anticipated Discharge Date Admission Date: December 17, 2024 Subjective Patient seen and examined at bedside this morning. She is awake and resting in bed. Reports some right-sided discomfort at present. Denies nausea, vomiting, fever or chills. Osorio intact. Reports she has not noticed any leaking around her catheter. Per chart review, has been receiving oxybutynin. Review of Systems Constitutional: as per Subjective / HPI Genitourinary: as per Subjective / HPI Physical Exam Constitutional: + morbidly obese; no acute distress Respiratory: no respiratory distress and no labored breathing Musculoskeletal: Head/Neck/Chest: normocephalic Neurologic: moves all extremities and awake Psychiatric: Orientation: alert and oriented x 3 Genitourinary: Osorio patent and draining clear yellow urine with some sediment Results & Data Vital Signs (Past 12 Hours) Vital Signs Temp Pulse Resp BP BP Pulse Ox O2 Del Method 12/21/24 07:55 36.5 C 64 18 109/70 94 Room Air 12/21/24 03:08 36.6 C 65 18 110/65 93 Room Air 12/20/24 23:00 36.7 C 76 18 109/58 L 94 Room Air PG Care Time/CCT Total # of Minutes Spent Total Time Spent with Patient: Total time spent is greater than 50% in coordination of care (as documented) at patient's floor/unit and/or counseling patient: Coding Level of Care Code 17724 SUB INP/OBS CARE 2/35MIN Diagnoses Pyelitis N12 Chronic indwelling Osorio catheter Z97.8 Ureteral stent present Z96.0
--- NOTE | 2024-12-21 10:27 | Anesthesiology Consultation ---
Date of Service December 21, 2024 Assessment & Plan Chart Review Chart Review: Acceptable Risk for Surgery, Patient NOT seen in Pre Admission Testing and saute chef initiated Consults Requested none History Surgery Operation Date: 12/21/24 09:30 Proposed Procedures p Cystoscopy Left Ureteral Stent Exchange, Possible Right Stent Insertion - Darinel Thorpe MD Height/Weight Height: 5 ft 3 in Weight: 92.669 kg Allergies Allergy/AdvReac Type Severity Reaction Status Date / Time doxycycline Allergy Intermediate Swelling Verified 08/14/24 15:45 tetracycline Allergy Mild Eye Verified 08/14/24 15:45 swelling NARINDER Inhibitors AdvReac Intermediate Cough Verified 08/14/24 15:45 codeine AdvReac Mild [place] Verified 08/14/24 15:45 "crazy" Sulfa (Sulfonamide AdvReac Mild Gastrointestinal Verified 08/14/24 15:45 Antibiotics) Upset Medications Home Medications Medication Instructions Recorded Confirmed Last Taken acetaminophen 500 mg tablet 500 mg PO Q6H PRN Fever Or Pain 06/28/23 12/17/24 06/13/24 (Tylenol Extra Strength) apixaban 5 mg tablet (Eliquis) 5 mg PO [facility] 06/28/23 12/17/24 07/16/24 atorvastatin 80 mg tablet 80 mg PO 06/28/23 12/17/24 07/18/24 20:00 metoprolol succinate 50 mg 50 mg PO [facility] 06/28/23 12/17/24 07/18/24 20:00 tablet,extended release 24 hr spironolactone 25 mg tablet 25 mg PO [facility] 06/28/23 12/17/24 07/18/24 08:00 docusate sodium 100 mg capsule 200 mg PO 09/14/23 12/17/24 07/18/24 20:00 (Colace) ferrous sulfate 325 mg (65 mg 325 mg PO Q OTHER DAY 04/03/24 12/17/24 07/17/24 08:00 iron) tablet,delayed release montelukast 10 mg tablet 10 mg PO QAM 04/03/24 12/17/24 07/18/24 08:00 tamsulosin 0.4 mg capsule 0.4 mg PO HS #30 caps 06/14/24 12/17/24 07/18/24 20:00 methenamine hippurate 1 gram tablet 1 g PO BID #60 tabs 06/15/24 12/17/24 07/18/24 20:00 ascorbic acid (vitamin C) 500 mg 500 mg PO BID 07/10/24 12/17/24 07/18/24 20:00 tablet (Vitamin C) oxybutynin chloride 5 mg tablet 5 mg PO Q8H PRN bladder spasms #30 07/17/24 12/17/24 07/11/24 tabs Saccharomyces boulardii 250 mg 250 mg PO QAM 08/14/24 12/17/24 Unknown capsule (Florastor) cranberry extract 500 mg capsule 500 mg PO QAM 08/14/24 12/17/24 Unknown (Cranberry Concentrate) diclofenac sodium 1 % topical gel 2 g EXT QID Pain 08/14/24 12/17/24 Unknown (Voltaren Arthritis Pain) zinc oxide 20 % topical ointment 1 applic topical BID 08/14/24 12/17/24 Unknown water for irrigation, sterile 1 irrig irrigation DAILY PRN 12/08/24 12/17/24 Unknown (Curity Sterile Water irrigation catheter occlusion #6,000 mL solution) mirtazapine 15 mg tablet 22.5 mg PO BID 12/17/24 12/17/24 Unknown sennosides 8.6 mg tablet (senna) 17.2 mg PO HS PRN Constipation 12/17/24 12/17/24 Unknown Active Medications Generic Name Dose Route Start Last Admin Trade Name Freq PRN Reason Stop Dose Admin Acetaminophen 500 mg 12/17/24 22:30 12/18/24 18:34 Acetaminophen 500 Mg Tab PO 01/16/25 22:29 500 mg Q6H PRN Administration Fever Or Pain Docusate Sodium 200 mg 12/18/24 21:00 12/20/24 20:19 Docusate Sodium 100 Mg Cap PO 01/17/25 20:59 200 mg HS ANA PAULA Administration Ferrous Sulfate 325 mg 12/19/24 09:00 12/21/24 08:54 Ferrous Sulfate 325 Mg Tab PO 01/18/25 08:59 Not Given Q2D ANA PAULA Piperacillin Sod/Tazobactam Sod 4.5 gm in 100 mls @ 25 mls/hr 12/21/24 00:30 12/21/24 08:50 Zosyn IV 01/04/25 00:29 25 mls/hr Q8H ANA PAULA Administration Protocol Insulin Aspart 0 units 12/18/24 02:08 12/21/24 08:55 Insulin Aspart Per Unit Charge SC 01/17/25 02:07 Not Given ACHS ANA PAULA Metoprolol Succinate 25 mg 12/18/24 21:00 12/21/24 08:56 Metoprolol Succ 25mg Ext Rel Tab PO 01/17/25 20:59 25 mg AMHS ANA PAULA Administration Mirtazapine 22.5 mg 12/17/24 22:45 12/21/24 08:56 Mirtazapine Tab 15 Mg Tab PO 01/16/25 22:44 22.5 mg BID ANA PAULA Administration Montelukast Sodium 10 mg 12/18/24 09:00 12/21/24 08:54 Montelukast Sodium 10 Mg Tablet PO 01/17/25 08:59 Not Given QAM ANA PAULA Oxybutynin Chloride 5 mg 12/17/24 22:32 12/21/24 08:56 Oxybutynin Chloride 5 Mg Tab PO 01/16/25 22:31 5 mg Q8H PRN Administration bladder spasms Oxycodone HCl 5 mg 12/17/24 22:34 12/20/24 23:54 Oxycodone Hcl Ir 5 Mg Tab (Immediate Release) PO 12/31/24 22:33 5 mg Q4H PRN Administration Pain Saccharomyces Boulardii 250 mg 12/18/24 09:00 12/21/24 08:57 Saccharomyces Boulardii 250 Mg Cap PO 01/17/25 08:59 250 mg QAM ANA PAULA Administration Sennosides 17.2 mg 12/17/24 22:32 12/18/24 09:12 Senna 8.6 Mg Tab PO 01/16/25 22:31 17.2 mg HS PRN Administration Constipation Tamsulosin HCl 0.4 mg 12/18/24 21:00 12/20/24 20:19 Tamsulosin Hcl 0.4 Mg Cap PO 01/17/25 20:59 0.4 mg HS ANA PAULA Administration Past Medical History Medical History Obesity Pulmonary hypertension moderate per 06/2023 ECHO (PASP 47mmHg) Skin breakdown sacral skin breakdown per 06/2024 hospitalization; pt to follow with wound care at [facility] 2 or more hospital admissions in past 6 months admitted [facility] 06/08-06/15/24: dx: complicated UTI, chronic indwelling cobb catheter, calculus of L kidney, b/l hydronephrosis. admitted [facility] 06/26- 06/30/24: dx: infection associated with indwelling uteretal stent, hematuria, acute L flank pain: pt D/C on Cefdinir (pt also noted to have sacral skin area breakdown during admission and pt to f/u with wound care at [facility]) History of anemia History of posterior vitreous detachment B/L History of asthma "Well controlled" Chronic indwelling Cobb catheter Hydronephrosis of left kidney Diabetes mellitus, type II Diet controlled Overactive bladder HTN (hypertension) GERD (gastroesophageal reflux disease) Hyperlipidemia Hx of vertigo Hx of cancer of uterus 2013- radiation Hx pulmonary embolism Remote hx years ago In setting of prolonged sitting/immobility during a previous hospitalization per records Urinary retention Cobb cath in place Atrial fibrillation Taking Eliquis History of home oxygen therapy not currently [facility] resident Resides at [facility] Nontoxic thyroid nodule Hx: UTI (urinary tract infection) Recurrent Hx of sepsis Lipodermatosclerosis Chronic bronchitis 'Bronchial asthma' Acquired lymphedema "Stomach" Gets therapy/massage to manage > was complication after radiation treatment per previous PAT RN notation IBS (irritable bowel syndrome) Past Family History Family History Other No family history of adverse response to anesthesia Past Surgical History Surgical History History of anesthesia reaction Awareness with D&C and colonoscopy History of open reduction and internal fixation (ORIF) procedure (06/2023) left femur fx Hx of cystoscopy Multiple; most recent: 04/13/24: MAC without issue History of cataract surgery (2020) R/L History of dilatation and curettage History of esophagogastroduodenoscopy (EGD) History of colonoscopy History of bilateral tubal ligation History of cholecystectomy Hx of hernia repair (12/2017) Ventral hernia with mesh History of tooth extraction History of cardiac cath (02/18/11) @ [facility]--No stents Social History Smoking Status: Never smoker Do You Dip or Chew Tobacco: No Hx Alcohol Use: No Hx Substance Use: No substance use type: does not use Physical Exam Vital Signs Last Vital Signs Temp 36.5 C 12/21/24 07:55 Pulse 64 12/21/24 07:55 Resp 18 12/21/24 07:55 BP 109/70 12/21/24 07:55 Pulse Ox 94 12/21/24 07:55 O2 Del Method Room Air 12/21/24 07:55 Testing Laboratory Results 12/21/24 05:46 12/21/24 05:46 Urine Color Brown 12/17/24 19:38 Urine Appearance Turbid (Clear) A 12/17/24 19:38 Urine pH 8.5 (4.5-7.5) H 12/17/24 19:38 Ur Specific [place] 1.020 (1.000-1.030) 12/17/24 19:38 Urine Protein 3+ (Negative) H 12/17/24 19:38 Urine Glucose (UA) Negative (Negative) 12/17/24 19:38 Urine Ketones Negative (Negative) 12/17/24 19:38 Urine Nitrite Positive (Negative) A 12/17/24 19:38 Ur Leukocyte Esterase 3+ (Negative) H 12/17/24 19:38 Urine RBC >20 /hpf (0-2) H 12/17/24 19:38 Urine WBC >50 /hpf (0-5) H 12/17/24 19:38 Ur Epithelial Cells 3-5 /hpf (0-2) H 12/17/24 19:38 12/19/24 16:19 Aerobic Blood Culture - Preliminary Blood No growth in Aerobic bottle after 24 hours. Anaerobic Blood Culture - Preliminary No growth in Anaerobic bottle after 24 hours. 12/19/24 16:19 Aerobic Blood Culture - Preliminary Blood No growth in Aerobic bottle after 24 hours. Anaerobic Blood Culture - Preliminary No growth in Anaerobic bottle after 24 hours. 12/17/24 18:59 Aerobic Blood Culture - Preliminary Blood No growth in Aerobic bottle after 48 hours. Anaerobic Blood Culture - Preliminary Bacteroides fragilis 12/17/24 18:59 Aerobic Blood Culture - Final Blood Staphylococcus capitis Staphylococcus epidermidis Anaerobic Blood Culture - Preliminary Escherichia coli 12/17/24 19:38 Urine Culture - Final Urine,Clean Catch Three types of organisms present, all high counts. Repeat collection recommended. No further identifications or sensitivities to follow. 12/21/24 08:33 POC Glucose 81 Electrocardiogram Date: 12/17/24 Findings: + AFIB @ (91) Echocardiogram Date: 08/15/24 EF: 65-70 LV Function: normal Other Findings: + LVH (mild)
[2024-12-21] MEDS ORDERED: PROPOFOL IV EMULSION 10 MG/ML 20 ML VIAL IV ONE (10:52)
[2024-12-21] MEDS ORDERED: LIDOCAINE 2% 2 ML VIAL/AMP(20MG/ML) INFIL ONE (10:52)
[2024-12-21] MEDS ORDERED: fentaNYL citrate PF 100 MCG/2 ML VIAL ONE (10:52)
[2024-12-21] MEDS ORDERED: ONDANSETRON INJ 2 MG/ML 2 ML VIAL IV PRN (11:27)
[2024-12-21] MEDS ORDERED: ATROPINE SULFATE 0.1 MG/ML 10ML SYR IV PRN (11:27)
[2024-12-21] MEDS ORDERED: ePHEDrine sulfate 50 MG/ML AMP IV PRN (11:27)
[2024-12-21] MEDS ORDERED: fentaNYL citrate PF 100 MCG/2 ML VIAL IV PRN (11:27)
[2024-12-21] MEDS ORDERED: ONDANSETRON INJ 2 MG/ML 2 ML VIAL ONE (12:49)
--- NOTE | 2024-12-21 13:08 | Operative Report ---
PG Post Operative Report Pre & Post Diagnosis Operation Date: 12/21/24 09:30 Preoperative diagnosis: UTI, bilateral hydronephrosis Postoperative diagnosis: UTI, bilateral hydronephrosis I identified the patient and participated in the time-out.: Yes Procedure Operation Date: 12/21/24 09:30 Cystoscopy, left ureteral stent exchange, right ureteral stent placement, right retrograde pyelogram Surgeon Darinel Thorpe MD Activity Therapist None Estimated Blood Loss 0 Findings Consistent with Post-Op Diagnosis Specimens None Drains 6 Micronesian 24 cm double-J ureteral stents bilaterally Anesthesia Type MAC Complications none Disposition Accompanied Patient To Recovery: Yes Disposition: Recovery Room Indications This is a 79-year-old female followed by urology for nephrolithiasis, hydronephrosis. She was recently admitted to the hospital with urinary tract infection and found to have positive blood cultures. She was due for scheduled ureteral stent exchange but was also found to have debris in the right kidney t hat could be obstructing. She is brought to the OR for left ureteral stent exchange and right ureteral stent placement. Description of Procedure The patient was identified in the holding area and informed consent was confirmed. She was marked on the left side, then was taken to the operating room where anesthesia was initiated. She was placed in the dorsal lithotomy position with all pressure points appropriately padded. She was prepped and draped in the usual sterile fashion and a preoperative timeout was performed. A well-lubricated cystoscope was inserted per urethra and panendoscopy was performed. The urethra was normal in appearance. The bladder was of normal size with ureteral orifices in orthotopic position. The end of the ureteral stent was visible from the left ureteral orifice. A pair of stent graspers was used to withdraw the stent to the urethral meatus. I attempted to cannulate the stent but it was fully encrusted. The ureteral orifice was narrow and I was unable to advance a wire alongside the stent. The stent was removed. There was immediate drainage of purulent urine. The zip wire was advanced to the kidney under fluoroscopic guidance. Over the wire I then advanced a 6 Micronesian by 24 cm double-J ureteral stent. Proximal curl was positioned in the kidney and the distal curl was visible in the bladder. There was drainage of purulent urine through the stent when it was in position. I then turned my attention to the right side. 5 Micronesian open-ended catheter was used to perform a retrograde pyelogram. There was mild dilation of the right kidney. Zip wire was advanced to the kidney and then used to position a 6 Micronesian by 24 cm double-J ureteral stent in the right. The proximal curl was in the renal pelvis and distal curl was seen in the bladder. All instrumentation was removed. A 16 Micronesian Osorio catheter was placed per urethra. The balloon was inflated with 10 mL of normal saline and catheter was attached to gravity drainage. The patient was then awakened from anesthesia and was brought to the PACU in stable condition. I attest to the content of the Intraoperative Record and any orders documented therein. Any exceptions are noted below.
--- NOTE | 2024-12-21 13:44 | Anesthesiology Progress Note ---
Date of Service December 21, 2024 Anesthesia Post Procedure Vital Signs Vital Signs: Temp Pulse Pulse Pulse Resp BP BP 12/21/24 13:35 78 14 96/52 L 12/21/24 13:25 75 13 116/66 12/21/24 13:18 36.1 C L 81 20 147/75 H 12/21/24 11:12 36.9 C 70 18 155/66 H 12/21/24 08:00 71 12/21/24 07:55 36.5 C 64 18 109/70 12/21/24 03:08 36.6 C 65 18 110/65 12/20/24 23:00 36.7 C 76 18 109/58 L 12/20/24 19:45 12/20/24 19:42 36.7 C 82 18 127/68 12/20/24 16:00 70 12/20/24 15:55 36.8 C 70 18 123/70 Pulse Ox O2 Del Method O2 Flow Rate 12/21/24 13:35 98 Nasal Cannula 2 12/21/24 13:25 93 Nasal Cannula 2 12/21/24 13:18 93 Room Air 12/21/24 11:12 95 Room Air 12/21/24 08:00 12/21/24 07:55 94 Room Air 12/21/24 03:08 93 Room Air 12/20/24 23:00 94 Room Air 12/20/24 19:45 Room Air 12/20/24 19:42 95 Room Air 12/20/24 16:00 12/20/24 15:55 94 Room Air Pain Intensity Lower Abdomen: Pain Intensity: 4 Right Flank: Pain Intensity: 4 Transfer of Care Handoff Completed per policy Notes Mental Status: alert / awake / arousable Patient Amnestic to Procedure: Yes Nausea / Vomiting: adequately controlled Pain: adequately controlled Airway Patency, RR, SpO2: stable & adequate BP & HR: stable & adequate Hydration State: stable & adequate Anesthetic Complications: no major complications apparent
--- NOTE | 2024-12-21 14:02 | Fluoroscopy Report ---
FL retrograde includes kub CLINICAL HISTORY: RETROGRADE COMPARISON STUDY: None FLUOROSCOPY TIME: 8 seconds FLUOROSCOPY IMAGES: 4 EXPOSURE DOSE: 1.6 mGy FINDINGS: Fluoroscopy was provided for bilateral ureteral stents. IMPRESSION: Intraoperative fluoroscopy. ACT 112: Negative or not required by law. Electronically signed by: Vincenzo Herrera M.D. 12/21/2024 2:00 PM
[2024-12-21] MEDS: MICONAZOLE NITRATE POWDER 85 GM EXT PRN (21:07)
[2024-12-22 06:53] LABS: Hematocrit (blood only) 34.5 % (37.0-47.0); Hemoglobin 10.6 g/dl (12.0-16.0); Mean Corpuscular Hemoglobin 27.6 pg (25.0-34.0); Mean Corpuscular Hgb Conc 30.7 g/dL (32.0-36.0); Mean Corpuscular Volume 89.8 fL (80.0-100.0); Mean Platelet Volume 9.5 fL (9.4-12.4); Platelet Count 270 K/uL (130-400); RDW Coefficient of Variation 15.2 % (11.5-14.5); RDW Standard Deviation 50.5 fL (36.4-46.3); Red Blood Count 3.84 M/uL (4.20-5.40); White Blood Count 7.05 K/ul (4.8-10.8)
[2024-12-22 07:12] LABS: BUN Creatinine Ratio 29.9 (10-20); Creatinine Clr Calc Pharmacy 72.5 ml/min; Magnesium 1.8 mg/dl (1.7-2.4); Phosphorus 3.9 mg/dl (2.5-4.9); Potassium 4.2 mmol/L (3.5-5.1)
--- NOTE | 2024-12-22 08:11 | Urology Progress Note ---
Date of Service December 22, 2024 Assessment & Plan (1) Pyelitis: (2) Chronic indwelling Cobb catheter: (3) Ureteral stent present: Plan: 79-year-old female with history of nephrolithiasis, chronic indwelling Cobb, recurrent UTIs and left ureteral stent admitted on 12/17/24 for complicated UTI and pyelitis. POD #1 s/p cystoscopy, left ureteral stent exchange, right ureteral stent placement with Dr. Thorpe 12/21. Vital signs stable, hemodynamically stable. Recommend maintaining cobb catheter. Maintain bilateral ureteral stents. Continue antibiotic management per ID. May continue Oxybutynin to help with bladder spasms, leaking with catheter. Will arrange appropriate outpatient follow-up for stent and indwelling cobb catheter management. will sign off, please contact us with any questions or concerns. Admission and Anticipated Discharge Date Admission Date: December 17, 2024 Subjective Patient seen and examined at bedside. Cobb catheter remains intact, draining clear yellow urine. She does report some right-sided flank discomfort. No left flank pain. Denies fevers or chills. Occasional nausea, denies vomiting. Has been tolerating diet. Vital signs stable. Labs reviewed - White count - 7.05 Creatinine - 0.67 Hemoglobin - 10.6 Urine culture 12/17/24 with 3 types of organisms present, and high counts. Blood cultures 12/17/24 with E. coli, Bacteroides fragilis, Staphylococcus epidermidis and Staphylococcus capitis. Repeat preliminary urine culture on 12/20 with Gina Albicans - ID following. Denies additional urologic concerns. Review of Systems Constitutional: as per Subjective / HPI; no fever and no chills Gastrointestinal: as per Subjective / HPI; no nausea and no vomiting Physical Exam Constitutional: + morbidly obese; no acute distress Respiratory: no respiratory distress and no labored breathing Musculoskeletal: Head/Neck/Chest: normocephalic Neurologic: moves all extremities and awake Psychiatric: Orientation: alert and oriented x 3 Genitourinary: Cobb patent and draining clear yellow urine with some sediment Results & Data Vital Signs (Past 12 Hours) Vital Signs Temp Pulse Pulse Resp BP BP Pulse Ox 12/22/24 07:47 36.6 C 68 16 109/58 L 92 12/22/24 06:11 79 12/22/24 02:47 36.5 C 65 16 123/65 94 12/21/24 22:39 36.8 C 77 18 105/66 92 O2 Del Method 12/22/24 07:47 Room Air 12/22/24 06:11 12/22/24 02:47 Room Air 12/21/24 22:39 Room Air
--- NOTE | 2024-12-22 08:54 | Hospitalist Progress Note ---
Date of Service December 22, 2024 Assessment & Plan (1) Sepsis: Plan: Acute pyelitis Possible pressure ulcer of left buttock, stage 3 Sepsis Secondary to complicated urinary tract infection/Osorio catheter-associated UTI, POA History of stent placement for hydronephrosis left hx recurrent UTIs on chronic methenamine suppression Rx/urge incontinence/chronic indwelling Osorio catheter/urolithiasis Hematuria secondary to above history PE DVT/A-fib, on Eliquis Patient currently hemodynamically stable 12/19 Hemoglobin 12 --> 11 Urine culture: Three types of organisms present, all high counts. Repeat collection recommended. No further identifications or sensitivities to follow repeat Urine culture: ordered Blood cultures: E. coli, gram-positive cocci clusters (Staph epid, Staph capitis per serology), Bacteroides Second blood culture ordered Dapto, cefepime transitioned to ceftriaxone Follow-up cultures ID consulted - recommend to stop ceftriaxone for now and switch to zosyn, follow up cultx (12/20/24) Urology service consulted, pt now s/p stent exchange (12/21/24) urine initially very cloudy after procedure, now clearing, yellow (12/22/2024) Eliquis on hold - will resume valvular heart disease (mild AR/TR) hypertension hyperlipidemia, on statin Rx pulmonary hypertension bronchial asthma, not in exacerbation DM2 diet-controlled, well-controlled as of recent hemoglobin A1c of 5.7 last October 2024 endometrial cancer status post radiation chronic anemia, hemoglobin stable chronic lymphedema DVT prophylaxis. resume Eliquis DNR Admission and Anticipated Discharge Date Admission Date: December 17, 2024 Subjective Follow-up for UTI, hx of ureteral stent,Bacteremia etc. S/p ureteral stent exchange yesterday (12/21/24) seen resting in bed, comfortable, not in distress no chest pain, shortness of breath or abd. pain + some right flank discomfort urine now clearing, yellow Review of Systems Review of Systems: All systems reviewed & are unremarkable except as noted in Subjective Physical Exam Physical Exam: General- oriented x 3, not in distress, speaks in sentences with no effort or accessory muscle use Eyes- anicteric Neck- no JVD Lungs- clear breath sounds bilaterally, no rales/wheezes Heart- normal rate, regular rhythm; no murmurs Abdomen- normal bowel sounds, nondistended, soft, nontender (+) erythema in the sacral region, with small, superficial open wound in the gluteal cleft Extremities- no pretibial edema, no calf tenderness - Osorio draining clear yellow urine Neuro- alert, oriented x 3; no gross focal neurologic deficits Skin- warm & dry Results & Data Results & Data Vital Signs (Past 12 Hours) Vital Signs Temp Pulse Pulse Resp BP BP Pulse Ox 12/22/24 07:47 36.6 C 68 16 109/58 L 92 12/22/24 06:11 79 12/22/24 02:47 36.5 C 65 16 123/65 94 12/21/24 22:39 36.8 C 77 18 105/66 92 O2 Del Method 12/22/24 07:47 Room Air 12/22/24 06:11 12/22/24 02:47 Room Air 12/21/24 22:39 Room Air Laboratory Results 12/22/24 12/22/24 12/21/24 Range/Units 08:16 06:09 20:17 WBC 7.05 (4.8-10.8) K/ul RBC 3.84 L (4.20-5.40) M/uL Hgb 10.6 L (12.0-16.0) g/dl Hct 34.5 L (37.0-47.0) % MCV 89.8 (80.0-100.0) fL MCH 27.6 (25.0-34.0) pg MCHC 30.7 L (32.0-36.0) g/dL RDW Std Deviation 50.5 H (36.4-46.3) fL RDW Coeff of Rodolfo 15.2 H (11.5-14.5) % Plt Count 270 (130-400) K/uL MPV 9.5 (9.4-12.4) fL Sodium 139 (136-145) mmol/L Potassium 4.2 (3.5-5.1) mmol/L Chloride 104 (98-107) mmol/L Carbon Dioxide 31 (21-32) mmol/L Anion Gap 4 (3-11) BUN 20 (6-23) mg/dl Creatinine 0.67 (0.6-1.2) mg/dl Est Cr Clr Drug Dosing 72.5 ml/min eGFR 89.41 BUN/Creatinine Ratio 29.9 H (10-20) Glucose 96 (70-99(Fasting)) mg/dl POC Glucose 135 H 124 H (70-99) mg/dl Calcium 9.0 (8.6-10.3) mg/dl Phosphorus 3.9 (2.5-4.9) mg/dl Magnesium 1.8 (1.7-2.4) mg/dl 12/21/24 12/21/24 Range/Units 17:21 11:21 WBC (4.8-10.8) K/ul RBC (4.20-5.40) M/uL Hgb (12.0-16.0) g/dl Hct (37.0-47.0) % MCV (80.0-100.0) fL MCH (25.0-34.0) pg MCHC (32.0-36.0) g/dL RDW Std Deviation (36.4-46.3) fL RDW Coeff of Rodolfo (11.5-14.5) % Plt Count (130-400) K/uL MPV (9.4-12.4) fL Sodium (136-145) mmol/L Potassium (3.5-5.1) mmol/L Chloride (98-107) mmol/L Carbon Dioxide (21-32) mmol/L Anion Gap (3-11) BUN (6-23) mg/dl Creatinine (0.6-1.2) mg/dl Est Cr Clr Drug Dosing ml/min eGFR BUN/Creatinine Ratio (10-20) Glucose (70-99(Fasting)) mg/dl POC Glucose 162 H 77 (70-99) mg/dl Calcium (8.6-10.3) mg/dl Phosphorus (2.5-4.9) mg/dl Magnesium (1.7-2.4) mg/dl Medications Administered Current Inpatient Medications Acetaminophen (Acetaminophen 500 Mg Tab) 500 mg PO Q6H PRN PRN Reason: Fever Or Pain Stop: 01/16/25 22:29 Last Admin: 12/18/24 18:34 Dose: 500 mg Dextrose (Dextrose 50% 50 Ml Syringe) 25 - 50 ml IV UD PRN; Protocol PRN Reason: Hypoglycemia Protocol Stop: 01/17/25 02:07 Docusate Sodium (Docusate Sodium 100 Mg Cap) 200 mg PO HS [facility] Stop: 01/17/25 20:59 Last Admin: 12/21/24 21:07 Dose: 200 mg Ferrous Sulfate (Ferrous Sulfate 325 Mg Tab) [address] [facility] Stop: 01/18/25 08:59 Last Admin: 12/21/24 08:54 Dose: Not Given Glucagon (Glucagon For Inj 1 Mg Vial) 1 mg SQ UD PRN; Protocol PRN Reason: Hypoglycemia Protocol Stop: 01/17/25 02:07 Glucose (Glucose 40% Gel 15 Gm Tube) 15 - 30 gm PO UD PRN; Protocol PRN Reason: Hypoglycemia Protocol Stop: 01/17/25 02:07 Glucose (Glucose 10 Tab/Tube) 4 - 8 tab PO UD PRN; Protocol PRN Reason: Hypoglycemia Protocol Stop: 01/17/25 02:07 Promethazine HCl (Phenergan) 6.25 mg in 50.25 mls @ 201 mls/hr IV Q6H PRN PRN Reason: Nausea And Vomiting Stop: 01/16/25 22:33 Piperacillin Sod/Tazobactam Sod (Zosyn) 4.5 gm in 100 mls @ 25 mls/hr IV Q8H [facility]; Protocol Stop: 01/04/25 00:29 Last Admin: 12/22/24 07:35 Dose: 25 mls/hr Insulin Aspart (Insulin Aspart Per Unit Charge) [address] [facility] Stop: 01/17/25 02:07 Last Admin: 12/21/24 20:26 Dose: Not Given Metoprolol Succinate (Metoprolol Succ 25mg Ext Rel Tab) [address] [facility] Stop: 01/17/25 20:59 Last Admin: 12/22/24 07:36 Dose: 25 mg Miconazole Nitrate (Miconazole Nitrate Powder 85 Gm) 1 appln EXT PRN PRN PRN Reason: Affected Skin Folds Stop: 01/20/25 19:22 Last Admin: 12/21/24 21:07 Dose: 1 appln Mirtazapine (Mirtazapine Tab 15 Mg Tab) 22.[address] [facility] Stop: 01/16/25 22:44 Last Admin: 12/22/24 07:35 Dose: 22.5 mg Miscellaneous (Carbohydrates For Hypoglycemia ) 15 - 30 gm PO UD PRN PRN Reason: Hypoglycemia Protocol Stop: 01/17/25 02:07 Montelukast Sodium (Montelukast Sodium 10 Mg Tablet) [address] [facility] Stop: 01/17/25 08:59 Last Admin: 12/22/24 07:36 Dose: 10 mg Oxybutynin Chloride (Oxybutynin Chloride 5 Mg Tab) 5 mg PO Q8H PRN PRN Reason: bladder spasms Stop: 01/16/25 22:31 Last Admin: 12/21/24 08:56 Dose: 5 mg Oxycodone HCl (Oxycodone Hcl Ir 5 Mg Tab (Immediate Release)) 5 mg PO Q4H PRN PRN Reason: Pain Stop: 12/31/24 22:33 Last Admin: 12/21/24 21:11 Dose: 5 mg Saccharomyces Boulardii (Saccharomyces Boulardii 250 Mg Cap) 250 mg PO [facility] Stop: 01/17/25 08:59 Last Admin: 12/22/24 07:36 Dose: 250 mg Sennosides (Senna 8.6 Mg Tab) 17.2 mg PO HS PRN PRN Reason: Constipation Stop: 01/16/25 22:31 Last Admin: 12/18/24 09:12 Dose: 17.2 mg Tamsulosin HCl (Tamsulosin Hcl 0.4 Mg Cap) 0.[address] [facility] Stop: 01/17/25 20:59 Last Admin: 12/21/24 21:07 Dose: 0.4 mg
[2024-12-22] MEDS: APIXABAN 5 MG TABLET PO SCH (21:06)
[2024-12-23 09:30] LABS: Hematocrit (blood only) 36.4 % (37.0-47.0); Hemoglobin 11.2 g/dl (12.0-16.0); Mean Corpuscular Hemoglobin 27.7 pg (25.0-34.0); Mean Corpuscular Hgb Conc 30.8 g/dL (32.0-36.0); Mean Corpuscular Volume 90.1 fL (80.0-100.0); Mean Platelet Volume 9.8 fL (9.4-12.4); Platelet Count 302 K/uL (130-400); RDW Coefficient of Variation 15.3 % (11.5-14.5); RDW Standard Deviation 50.4 fL (36.4-46.3); Red Blood Count 4.04 M/uL (4.20-5.40); White Blood Count 7.69 K/ul (4.8-10.8)
[2024-12-23 09:38] LABS: BUN Creatinine Ratio 33.3 (10-20); Calcium 9.7 mg/dl (8.6-10.3); Creatinine Clr Calc Pharmacy 72.4 ml/min; Phosphorus 3.8 mg/dl (2.5-4.9); Potassium 4.9 mmol/L (3.5-5.1)
--- NOTE | 2024-12-23 17:05 | Hospitalist Progress Note ---
Date of Service December 23, 2024 Assessment & Plan (1) Sepsis: Plan: Acute pyelitis Possible pressure ulcer of left buttock, stage 3 Sepsis Secondary to complicated urinary tract infection/Osorio catheter-associated UTI, POA History of stent placement for hydronephrosis left hx recurrent UTIs on chronic methenamine suppression Rx/urge incontinence/chronic indwelling Osorio catheter/urolithiasis Hematuria secondary to above history PE DVT/A-fib, on Eliquis Patient currently hemodynamically stable 12/19 Hemoglobin 12 --> 11 Urine culture: Three types of organisms present, all high counts. Repeat collection recommended. No further identifications or sensitivities to follow repeat Urine culture: ordered Blood cultures: E. coli, gram-positive cocci clusters (Staph epid, Staph capitis per serology), Bacteroides Second blood culture ordered Dapto, cefepime transitioned to ceftriaxone Follow-up cultures ID consulted - recommend to stop ceftriaxone for now and switch to zosyn, follow up cultx (12/20/24) Urology service consulted, pt now s/p stent exchange (12/21/24) urine initially very cloudy after procedure, now clearing, yellow (12/22/2024) Eliquis was resumed valvular heart disease (mild AR/TR) hypertension hyperlipidemia, on statin Rx pulmonary hypertension bronchial asthma, not in exacerbation DM2 diet-controlled, well-controlled as of recent hemoglobin A1c of 5.7 last 2024 endometrial cancer status post radiation chronic anemia, hemoglobin stable chronic lymphedema DVT prophylaxis. Eliquis DNR Admission and Anticipated Discharge Date Admission Date: December 17, 2024 Subjective Follow-up for UTI, hx of ureteral stent,Bacteremia etc. S/p ureteral stent exchange (12/21/24) seen resting in bed, comfortable, not in distress no chest pain, shortness of breath or abd. pain + some right flank and back discomfort urine now clearing, yellow Review of Systems Review of Systems: All systems reviewed & are unremarkable except as noted in Subjective Physical Exam Physical Exam: General- oriented x 3, not in distress, speaks in sentences with no effort or accessory muscle use Eyes- anicteric Neck- no JVD Lungs- clear breath sounds bilaterally, no rales/wheezes Heart- normal rate, regular rhythm; no murmurs Abdomen- normal bowel sounds, nondistended, soft, nontender (+) erythema in the sacral region, with small, superficial open wound in the gluteal cleft Extremities- no pretibial edema, no calf tenderness - Osorio draining clear yellow urine Neuro- alert, oriented x 3; no gross focal neurologic deficits Skin- warm & dry Results & Data Results & Data Vital Signs (Past 12 Hours) Vital Signs Temp Pulse Pulse Resp BP Pulse Ox O2 Del Method 12/23/24 15:34 Room Air 12/23/24 13:41 62 12/23/24 12:45 36.6 C 62 20 118/55 L 94 Room Air 12/23/24 05:45 61 Laboratory Results 12/23/24 12/23/24 12/23/24 Range/Units 12:34 08:39 08:36 WBC 7.69 (4.8-10.8) K/ul RBC 4.04 L (4.20-5.40) M/uL Hgb 11.2 L (12.0-16.0) g/dl Hct 36.4 L (37.0-47.0) % MCV 90.1 (80.0-100.0) fL MCH 27.7 (25.0-34.0) pg MCHC 30.8 L (32.0-36.0) g/dL RDW Std Deviation 50.4 H (36.4-46.3) fL RDW Coeff of Rodolfo 15.3 H (11.5-14.5) % Plt Count 302 (130-400) K/uL MPV 9.8 (9.4-12.4) fL Sodium 140 (136-145) mmol/L Potassium 4.9 (3.5-5.1) mmol/L Chloride 103 (98-107) mmol/L Carbon Dioxide 34 H (21-32) mmol/L Anion Gap 3 (3-11) BUN 22 (6-23) mg/dl Creatinine 0.66 (0.6-1.2) mg/dl Est Cr Clr Drug Dosing 72.4 ml/min eGFR 89.73 BUN/Creatinine Ratio 33.3 H (10-20) Glucose 94 (70-99(Fasting)) mg/dl POC Glucose 123 H 84 (70-99) mg/dl Calcium 9.7 (8.6-10.3) mg/dl Phosphorus 3.8 (2.5-4.9) mg/dl Magnesium 2.0 (1.7-2.4) mg/dl 12/22/24 12/22/24 Range/Units 20:07 17:12 WBC (4.8-10.8) K/ul RBC (4.20-5.40) M/uL Hgb (12.0-16.0) g/dl Hct (37.0-47.0) % MCV (80.0-100.0) fL MCH (25.0-34.0) pg MCHC (32.0-36.0) g/dL RDW Std Deviation (36.4-46.3) fL RDW Coeff of Rodolfo (11.5-14.5) % Plt Count (130-400) K/uL MPV (9.4-12.4) fL Sodium (136-145) mmol/L Potassium (3.5-5.1) mmol/L Chloride (98-107) mmol/L Carbon Dioxide (21-32) mmol/L Anion Gap (3-11) BUN (6-23) mg/dl Creatinine (0.6-1.2) mg/dl Est Cr Clr Drug Dosing ml/min eGFR BUN/Creatinine Ratio (10-20) Glucose (70-99(Fasting)) mg/dl POC Glucose 110 H 99 (70-99) mg/dl Calcium (8.6-10.3) mg/dl Phosphorus (2.5-4.9) mg/dl Magnesium (1.7-2.4) mg/dl Medications Administered Current Inpatient Medications Acetaminophen (Acetaminophen 500 Mg Tab) 500 mg PO Q6H PRN PRN Reason: Fever Or Pain Stop: 01/16/25 22:29 Last Admin: 12/18/24 18:34 Dose: 500 mg Apixaban (Apixaban 5 Mg Tablet) 5 mg PO AMHS [facility] Stop: 01/21/25 20:59 Last Admin: 12/23/24 07:58 Dose: 5 mg Dextrose (Dextrose 50% 50 Ml Syringe) 25 - 50 ml IV UD PRN; Protocol PRN Reason: Hypoglycemia Protocol Stop: 01/17/25 02:07 Docusate Sodium (Docusate Sodium 100 Mg Cap) 200 mg PO HS [facility] Stop: 01/17/25 20:59 Last Admin: 12/22/24 21:06 Dose: 200 mg Ferrous Sulfate (Ferrous Sulfate 325 Mg Tab) 325 mg PO Q2D [facility] Stop: 01/18/25 08:59 Last Admin: 12/23/24 07:58 Dose: 325 mg Glucagon (Glucagon For Inj 1 Mg Vial) 1 mg SQ UD PRN; Protocol PRN Reason: Hypoglycemia Protocol Stop: 01/17/25 02:07 Glucose (Glucose 40% Gel 15 Gm Tube) 15 - 30 gm PO UD PRN; Protocol PRN Reason: Hypoglycemia Protocol Stop: 01/17/25 02:07 Glucose (Glucose 10 Tab/Tube) 4 - 8 tab PO UD PRN; Protocol PRN Reason: Hypoglycemia Protocol Stop: 01/17/25 02:07 Promethazine HCl (Phenergan) 6.25 mg in 50.25 mls @ 201 mls/hr IV Q6H PRN PRN Reason: Nausea And Vomiting Stop: 01/16/25 22:33 Piperacillin Sod/Tazobactam Sod (Zosyn) 4.5 gm in 100 mls @ 25 mls/hr IV Q8H [facility]; Protocol Stop: 01/04/25 00:29 Last Admin: 12/23/24 16:44 Dose: 25 mls/hr Insulin Aspart (Insulin Aspart Per Unit Charge) 0 units SC ACHS [facility] Stop: 01/17/25 02:07 Last Admin: 12/23/24 12:59 Dose: 3 units Metoprolol Succinate (Metoprolol Succ 25mg Ext Rel Tab) 25 mg PO AMHS [facility] Stop: 01/17/25 20:59 Last Admin: 12/23/24 07:58 Dose: 25 mg Miconazole Nitrate (Miconazole Nitrate Powder 85 Gm) 1 appln EXT PRN PRN PRN Reason: Affected Skin Folds Stop: 01/20/25 19:22 Last Admin: 12/21/24 21:07 Dose: 1 appln Mirtazapine (Mirtazapine Tab 15 Mg Tab) 22.5 mg PO BID [facility] Stop: 01/16/25 22:44 Last Admin: 12/23/24 07:57 Dose: 22.5 mg Miscellaneous (Carbohydrates For Hypoglycemia ) 15 - 30 gm PO UD PRN PRN Reason: Hypoglycemia Protocol Stop: 01/17/25 02:07 Montelukast Sodium (Montelukast Sodium 10 Mg Tablet) 10 mg PO QAM [facility] Stop: 01/17/25 08:59 Last Admin: 12/23/24 07:57 Dose: 10 mg Oxybutynin Chloride (Oxybutynin Chloride 5 Mg Tab) 5 mg PO Q8H PRN PRN Reason: bladder spasms Stop: 01/16/25 22:31 Last Admin: 12/21/24 08:56 Dose: 5 mg Oxycodone HCl (Oxycodone Hcl Ir 5 Mg Tab (Immediate Release)) 5 mg PO Q4H PRN PRN Reason: Pain Stop: 12/31/24 22:33 Last Admin: 12/23/24 16:46 Dose: 5 mg Saccharomyces Boulardii (Saccharomyces Boulardii 250 Mg Cap) 250 mg PO QAM [facility] Stop: 01/17/25 08:59 Last Admin: 12/23/24 07:59 Dose: 250 mg Sennosides (Senna 8.6 Mg Tab) 17.2 mg PO HS PRN PRN Reason: Constipation Stop: 01/16/25 22:31 Last Admin: 12/18/24 09:12 Dose: 17.2 mg Tamsulosin HCl (Tamsulosin Hcl 0.4 Mg Cap) 0.4 mg PO HS [facility] Stop: 01/17/25 20:59 Last Admin: 12/22/24 21:06 Dose: 0.4 mg
--- NOTE | 2024-12-24 07:51 | Hospitalist Progress Note ---
Date of Service December 24, 2024 Assessment & Plan (1) Sepsis: Plan: Acute pyelitis Possible pressure ulcer of left buttock, stage 3 Sepsis Secondary to complicated urinary tract infection/Osorio catheter-associated UTI, POA History of stent placement for hydronephrosis left hx recurrent UTIs on chronic methenamine suppression Rx/urge incontinence/chronic indwelling Osorio catheter/urolithiasis Hematuria secondary to above history PE DVT/A-fib, on Eliquis Patient currently hemodynamically stable 12/19 Hemoglobin 12 --> 11 Urine culture: Three types of organisms present, all high counts. Repeat collection recommended. No further identifications or sensitivities to follow Blood cultures: E. coli, gram-positive cocci clusters (Staph epid, Staph capitis per serology), Bacteroides Repeat blood culture obtained - NGTD Dapto, cefepime transitioned to ceftriaxone Follow-up cultures ID consulted - recommend to stop ceftriaxone for now and switch to zosyn, follow up cultx (12/20/24) Urology service consulted, pt now s/p stent exchange (12/21/24) urine initially very cloudy after procedure, now clearing, yellow (12/22/2024) Eliquis was resumed valvular heart disease (mild AR/TR) hypertension hyperlipidemia, on statin Rx pulmonary hypertension bronchial asthma, not in exacerbation DM2 diet-controlled, well-controlled as of recent hemoglobin A1c of 5.7 last October 2024 endometrial cancer status post radiation chronic anemia, hemoglobin stable chronic lymphedema DVT prophylaxis. Eliquis DNR Admission and Anticipated Discharge Date Admission Date: December 17, 2024 Subjective Follow-up for UTI, hx of ureteral stent,Bacteremia etc. S/p ureteral stent exchange (12/21/24) seen resting in bed, comfortable, not in distress no chest pain, shortness of breath or abd. pain + some right flank and back discomfort urine now clearing, yellow Review of Systems Review of Systems: All systems reviewed & are unremarkable except as noted in Subjective Physical Exam Physical Exam: General- oriented x 3, not in distress, speaks in sentences with no effort or accessory muscle use Eyes- anicteric Neck- no JVD Lungs- clear breath sounds bilaterally, no rales/wheezes Heart- normal rate, regular rhythm; no murmurs Abdomen- normal bowel sounds, nondistended, soft, nontender (+) erythema in the sacral region, with small, superficial open wound in the gluteal cleft Extremities- no pretibial edema, no calf tenderness - Osorio draining clear yellow urine Neuro- alert, oriented x 3; no gross focal neurologic deficits Skin- warm & dry Results & Data Results & Data Vital Signs (Past 12 Hours) Vital Signs Temp Pulse Pulse Resp BP Pulse Ox O2 Del Method 12/24/24 07:33 36.9 C 64 16 123/57 L 92 Room Air 12/24/24 05:30 62 12/24/24 03:06 36.5 C 57 L 18 114/66 91 Room Air 12/23/24 23:36 36.6 C 67 18 118/63 93 Room Air 12/23/24 21:58 Room Air 12/23/24 19:55 36.9 C 77 18 143/64 H 94 Room Air Laboratory Results 12/23/24 12/23/24 12/23/24 Range/Units 20:21 17:28 12:34 WBC (4.8-10.8) K/ul RBC (4.20-5.40) M/uL Hgb (12.0-16.0) g/dl Hct (37.0-47.0) % MCV (80.0-100.0) fL MCH (25.0-34.0) pg MCHC (32.0-36.0) g/dL RDW Std Deviation (36.4-46.3) fL RDW Coeff of Rodolfo (11.5-14.5) % Plt Count (130-400) K/uL MPV (9.4-12.4) fL Sodium (136-145) mmol/L Potassium (3.5-5.1) mmol/L Chloride (98-107) mmol/L Carbon Dioxide (21-32) mmol/L Anion Gap (3-11) BUN (6-23) mg/dl Creatinine (0.6-1.2) mg/dl Est Cr Clr Drug Dosing ml/min eGFR BUN/Creatinine Ratio (10-20) Glucose (70-99(Fasting)) mg/dl POC Glucose 111 H 107 H 123 H (70-99) mg/dl Calcium (8.6-10.3) mg/dl Phosphorus (2.5-4.9) mg/dl Magnesium (1.7-2.4) mg/dl 12/23/24 12/23/24 Range/Units 08:39 08:36 WBC 7.69 (4.8-10.8) K/ul RBC 4.04 L (4.20-5.40) M/uL Hgb 11.2 L (12.0-16.0) g/dl Hct 36.4 L (37.0-47.0) % MCV 90.1 (80.0-100.0) fL MCH 27.7 (25.0-34.0) pg MCHC 30.8 L (32.0-36.0) g/dL RDW Std Deviation 50.4 H (36.4-46.3) fL RDW Coeff of Rodolfo 15.3 H (11.5-14.5) % Plt Count 302 (130-400) K/uL MPV 9.8 (9.4-12.4) fL Sodium 140 (136-145) mmol/L Potassium 4.9 (3.5-5.1) mmol/L Chloride 103 (98-107) mmol/L Carbon Dioxide 34 H (21-32) mmol/L Anion Gap 3 (3-11) BUN 22 (6-23) mg/dl Creatinine 0.66 (0.6-1.2) mg/dl Est Cr Clr Drug Dosing 72.4 ml/min eGFR 89.73 BUN/Creatinine Ratio 33.3 H (10-20) Glucose 94 (70-99(Fasting)) mg/dl POC Glucose 84 (70-99) mg/dl Calcium 9.7 (8.6-10.3) mg/dl Phosphorus 3.8 (2.5-4.9) mg/dl Magnesium 2.0 (1.7-2.4) mg/dl Medications Administered Current Inpatient Medications Acetaminophen (Acetaminophen 500 Mg Tab) 500 mg PO Q6H PRN PRN Reason: Fever Or Pain Stop: 01/16/25 22:29 Last Admin: 12/18/24 18:34 Dose: 500 mg Apixaban (Apixaban 5 Mg Tablet) 5 mg PO AMHS ANA PAULA Stop: 01/21/25 20:59 Last Admin: 12/23/24 20:43 Dose: 5 mg Dextrose (Dextrose 50% 50 Ml Syringe) 25 - 50 ml IV UD PRN; Protocol PRN Reason: Hypoglycemia Protocol Stop: 01/17/25 02:07 Docusate Sodium (Docusate Sodium 100 Mg Cap) 200 mg PO HS [facility] Stop: 01/17/25 20:59 Last Admin: 12/23/24 20:43 Dose: 200 mg Ferrous Sulfate (Ferrous Sulfate 325 Mg Tab) 325 mg PO Q2D [facility] Stop: 01/18/25 08:59 Last Admin: 12/23/24 07:58 Dose: 325 mg Glucagon (Glucagon For Inj 1 Mg Vial) 1 mg SQ UD PRN; Protocol PRN Reason: Hypoglycemia Protocol Stop: 01/17/25 02:07 Glucose (Glucose 40% Gel 15 Gm Tube) 15 - 30 gm PO UD PRN; Protocol PRN Reason: Hypoglycemia Protocol Stop: 01/17/25 02:07 Glucose (Glucose 10 Tab/Tube) 4 - 8 tab PO UD PRN; Protocol PRN Reason: Hypoglycemia Protocol Stop: 01/17/25 02:07 Promethazine HCl (Phenergan) 6.25 mg in 50.25 mls @ 201 mls/hr IV Q6H PRN PRN Reason: Nausea And Vomiting Stop: 01/16/25 22:33 Piperacillin Sod/Tazobactam Sod (Zosyn) 4.5 gm in 100 mls @ 25 mls/hr IV Q8H ANA PAULA; Protocol Stop: 01/04/25 00:29 Last Infusion: 12/24/24 03:45 Dose: Infused Insulin Aspart (Insulin Aspart Per Unit Charge) 0 units SC [facility] Stop: 01/17/25 02:07 Last Admin: 12/23/24 20:25 Dose: Not Given Metoprolol Succinate (Metoprolol Succ 25mg Ext Rel Tab) 25 mg PO AMHS [facility] Stop: 01/17/25 20:59 Last Admin: 12/23/24 20:43 Dose: 25 mg Miconazole Nitrate (Miconazole Nitrate Powder 85 Gm) 1 appln EXT PRN PRN PRN Reason: Affected Skin Folds Stop: 01/20/25 19:22 Last Admin: 12/21/24 21:07 Dose: 1 appln Mirtazapine (Mirtazapine Tab 15 Mg Tab) 22.5 mg PO BID [facility] Stop: 01/16/25 22:44 Last Admin: 12/23/24 20:42 Dose: 22.5 mg Miscellaneous (Carbohydrates For Hypoglycemia ) 15 - 30 gm PO UD PRN PRN Reason: Hypoglycemia Protocol Stop: 01/17/25 02:07 Montelukast Sodium ([facility]elukast Sodium 10 Mg Tablet) [facility] [place] Stop: 01/17/25 08:59 Last Admin: 12/23/24 07:57 Dose: 10 mg Oxybutynin Chloride (Oxybutynin Chloride 5 Mg Tab) 5 mg PO Q8H PRN PRN Reason: bladder spasms Stop: 01/16/25 22:31 Last Admin: 12/21/24 08:56 Dose: 5 mg Oxycodone HCl (Oxycodone Hcl Ir 5 Mg Tab (Immediate Release)) 5 mg PO Q4H PRN PRN Reason: Pain Stop: 12/31/24 22:33 Last Admin: 12/24/24 06:31 Dose: 5 mg Saccharomyces Boulardii (Saccharomyces Boulardii 250 Mg Cap) [facility] [place] Stop: 01/17/25 08:59 Last Admin: 12/23/24 07:59 Dose: 250 mg Sennosides (Senna 8.6 Mg Tab) 17.2 mg PO HS PRN PRN Reason: Constipation Stop: 01/16/25 22:31 Last Admin: 12/18/24 09:12 Dose: 17.2 mg Tamsulosin HCl (Tamsulosin Hcl 0.4 Mg Cap) 0.4 mg PO HS [facility] Stop: 01/17/25 20:59 Last Admin: 12/23/24 20:43 Dose: 0.4 mg
[2024-12-24 08:07] LABS: Hematocrit (blood only) 33.9 % (37.0-47.0); Hemoglobin 10.5 g/dl (12.0-16.0); Mean Corpuscular Hemoglobin 27.6 pg (25.0-34.0); Mean Corpuscular Volume 89.2 fL (80.0-100.0); Mean Platelet Volume 9.8 fL (9.4-12.4); Platelet Count 291 K/uL (130-400); RDW Coefficient of Variation 15.5 % (11.5-14.5); RDW Standard Deviation 50.2 fL (36.4-46.3); White Blood Count 7.81 K/ul (4.8-10.8)
[2024-12-24 08:18] LABS: BUN Creatinine Ratio 36.1 (10-20); Calcium 9.2 mg/dl (8.6-10.3); Creatinine Clr Calc Pharmacy 81.9 ml/min; Magnesium 1.9 mg/dl (1.7-2.4); Phosphorus 3.8 mg/dl (2.5-4.9)
[2024-12-24] MEDS: POLYETHYLENE (MIRALAX) 17 GM PACK PO SCH (09:07)
[2024-12-24] MEDS: SENNA 8.6 MG TAB PO SCH (20:42)
[2024-12-25 06:27] LABS: Hemoglobin 9.6 g/dl (12.0-16.0); Mean Corpuscular Hemoglobin 27.7 pg (25.0-34.0); Mean Corpuscular Volume 89.3 fL (80.0-100.0); Mean Platelet Volume 9.6 fL (9.4-12.4); Platelet Count 293 K/uL (130-400); RDW Coefficient of Variation 15.7 % (11.5-14.5); Red Blood Count 3.47 M/uL (4.20-5.40); White Blood Count 8.97 K/ul (4.8-10.8)
[2024-12-25 06:39] LABS: BUN Creatinine Ratio 27.3 (10-20); Calcium 8.9 mg/dl (8.6-10.3); Creatinine Clr Calc Pharmacy 56.8 ml/min; Magnesium 1.9 mg/dl (1.7-2.4); Potassium 4.1 mmol/L (3.5-5.1)
[2024-12-25 11:45] VITALS: BP 108/65; RESP 14; TEMP 98.2; O2SAT 95
--- NOTE | 2024-12-25 12:06 | Discharge Summary ---
Date of Service December 25, 2024 Admission HPI Per Admitting Provider History obtained from patient and records. 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 Last confinement October 2024 for recurrent complicated UTI and left gluteal cellulitis. Urine CS grew E. coli and E faecalis. Patient initially treated with cefepime. Antibiotic discontinued following ID recommendations given less concern for active infection as per note. 2 days ago, patient noted achy left lower quadrant pain with hematuria symptoms. Transient chest tightness without SOB. Some chills at home. Unasyn administered at the ER. MEDICAL HISTORY: As above. SURGICAL HISTORY: Bilateral tubal ligation, cholecystectomy, appendectomy, D&C, urologic procedures, femoral fracture surgery, urologic procedures FAMILY HISTORY: Heart disease, COPD. PERSONAL SOCIAL HISTORY: Nonsmoker, no chronic intake of alcoholic beverages. 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 Admission Exam Per Admitting Provider GENERAL: comfortable, pleasant, obese, no respiratory distress SKIN: Pallor, warm HEENT: Bespectacled, pale palpebral conjunctivae, no ptosis, dry buccal mucosa NECK : Supple, short neck, no tenderness CHEST : Decreased breath sounds, no tenderness HEART : Irregular, no obvious murmurs ABDOMEN: distention, left-sided abdominal tenderness EXTREMITIES : Bilateral LE swelling , no LE tenderness, no other conspicuous deformities noted NEUROLOGIC : Coherent, no facial asymmetry, gait and stance not assessed Principal Diagnosis Sepsis Bacteremia Acute pyelitis hydronephrosis s/p ureteral stent exchange Discharge Exam General- oriented x 3, not in distress, speaks in sentences with no effort or accessory muscle use Eyes- anicteric Neck- no JVD Lungs- clear breath sounds bilaterally, no rales/wheezes Heart- normal rate, regular rhythm; no murmurs Abdomen- normal bowel sounds, nondistended, soft, nontender (+) erythema in the sacral region, with small, superficial open wound in the gluteal cleft Extremities- no pretibial edema, no calf tenderness - Osorio draining clear yellow urine Neuro- alert, oriented x 3; no gross focal neurologic deficits Skin- warm & dry Discharge Data Allergies Allergy/AdvReac Type Severity Reaction Status Date / Time doxycycline Allergy Intermediate Swelling Verified 08/14/24 15:45 tetracycline Allergy Mild Eye Verified 08/14/24 15:45 swelling NARINDER Inhibitors AdvReac Intermediate Cough Verified 08/14/24 15:45 codeine AdvReac Mild [place] Verified 08/14/24 15:45 "crazy" Sulfa (Sulfonamide AdvReac Mild Gastrointestinal Verified 08/14/24 15:45 Antibiotics) Upset Consultations 12/18/24 08:11 Consult Urology Routine 12/19/24 10:39 Consult Infectious Diseases Routine Procedures Performed Operation Date: 12/21/24 09:30 Actual Procedures p Cystoscopy Left Ureteral Stent Exchange, Right Stent Insertion(Bilateral) - Darinel Thorpe MD Ordered Studies 12/17/24 18:39 CT abd pelvis IV con only Stat IMPRESSION: Stable left nephroureteral stent, in good position, with continued evidence of pyelitis and ureteritis, possibly reactive. Interval decrease in subcutaneous edema about the posterior left hip and buttock region, possibly due to chronic decubitus positioning. 12/21/24 [place] retrograde includes kub Routine Hospital Course (1) Sepsis: Acute pyelitis Possible pressure ulcer of left buttock, stage 3 Sepsis Secondary to complicated urinary tract infection/Osorio catheter-associated UTI, POA History of stent placement for hydronephrosis left hx recurrent UTIs on chronic methenamine suppression Rx/urge incontinence/chronic indwelling Osorio catheter/urolithiasis Hematuria secondary to above history PE DVT/A-fib, on Eliquis Patient currently hemodynamically stable 12/19 Hemoglobin 12 --> 11 Urine culture: Three types of organisms present, all high counts. Repeat collection recommended. No further identifications or sensitivities to follow Blood cultures: E. coli, gram-positive cocci clusters (Staph epid, Staph capitis per serology), Bacteroides Repeat blood culture obtained - NGTD Dapto, cefepime transitioned to ceftriaxone Follow-up cultures ID consulted - recommend to stop ceftriaxone for now and switch to zosyn, follow up cultx (12/20/24) Urology service consulted, pt now s/p stent exchange (12/21/24) urine initially very cloudy after procedure, now clearing, yellow (12/22/2024) Eliquis was resumed 12/25 Discussed with ID - Dr. Ramirez - repeat blood cultx - negative Repeat urine cultx posit. for C. albicans Recommend to finish treatment with Bactrim for additional 10 days and fluconazole 600 daily for total 14 days. Chronic conditions: valvular heart disease (mild AR/TR) hypertension hyperlipidemia, on statin Rx pulmonary hypertension bronchial asthma, not in exacerbation DM2 diet-controlled, well-controlled as of recent hemoglobin A1c of 5.7 last October 2024 endometrial cancer status post radiation chronic anemia, hemoglobin stable chronic lymphedema DVT prophylaxis. Eliquis DNR Total Time Total Time Spent Total Time Spent (In Minutes): 60 Discharge Plan Discharge Items Patient Disposition: Personal Senior Living Reason For Visit: SEPSIS Discharge Diagnosis: Sepsis Bacteremia Acute pyelitis hydronephrosis s/p ureteral stent exchange Activity: Per Instructions section Non-emergency contact: Primary Care Provider, Specialist and Urologist Call non-emergency contact if: you have any medication questions and your symptoms worsen Follow-up/Referrals: Pavan Mckeon MD [Primary Care Provider] - (Date & Time 01/01/2025 9:40 AM Provider: Pavan Mckeon MD [facility], [facility] *televisit*) Diet: Carb Consistent or DM2 and Heart Healthy Addtl Attending Provider Instructions: Follow up with primary care doctor and urologist. Finish antibiotic / antifungal treatment as prescribed. Make sure to stay well hydrated. Pending Studies at Discharge: No Stand-Alone Forms: [email or web address], Smoking Cessation Skilled Items Patient informed of condition?: Yes DNR: Yes Discharge Level of Care: Other Communicable Disease: No Discharge Prognosis: Stable Lines: None Urinary Catheter: Yes Medications and DC Order Prescriptions: New miconazole nitrate [Desenex] 2 % Powder 1 applic EXT PRN PRN (Reason: rash) Qty: 85 0RF sulfamethoxazole-trimethoprim [Bactrim DS] 800-160 mg Tablet 1 tab PO Q12 10 Days Qty: 20 0RF metoprolol succinate 25 mg Tablet Extended Release 24 Hr 25 mg PO AMHS Qty: 60 0RF oxycodone 5 mg Tablet 5 mg PO Q4H PRN (Reason: pain) Qty: 10 0RF fluconazole 200 mg tablet 600 mg PO DAILY 13 Days Qty: 39 0RF Continued oxybutynin chloride 5 mg tablet 5 mg PO Q8H PRN (Reason: bladder spasms) Qty: 30 0RF water for irrigation, sterile [Curity Sterile Water] Solution 1 irrig irrigation DAILY PRN (Reason: catheter occlusion) Qty: 6000 2RF atorvastatin 80 mg tablet 80 mg PO HS acetaminophen [Tylenol Extra Strength] 500 mg Tablet 500 mg PO Q6H MDD 3gmAPAP/24hrs PRN (Reason: Fever Or Pain) Eliquis 5 mg tablet 5 mg PO AMHS docusate sodium [Colace] 100 mg Capsule 200 mg PO HS tamsulosin 0.4 mg Capsule 0.4 mg PO HS Qty: 30 0RF sennosides [senna] 8.6 mg Tablet 17.2 mg PO HS PRN (Reason: Constipation) mirtazapine 15 mg tablet 22.5 mg PO BID montelukast 10 mg Tablet 10 mg PO QAM ferrous sulfate 325 mg (65 mg iron) Tablet,Delayed Release (Dr/Ec) 325 mg PO Q OTHER DAY Patient Comments: in am ascorbic acid (vitamin C) [Vitamin C] 500 mg Tablet 500 mg PO BID zinc oxide 20 % Ointment 1 applic TOPICAL BID cranberry extract [Cranberry Concentrate] 500 mg Capsule 500 mg PO QAM Rx Instructions: administer with meals Saccharomyces boulardii [Florastor] 250 mg Capsule 250 mg PO QAM diclofenac sodium [Voltaren Arthritis Pain] 1 % gel 2 g EXT QID Discontinued fosfomycin tromethamine 3 gram packet 1 packet PO Q OTHER DAY Qty: 3 0RF metoprolol succinate 50 mg tablet extended release 24 hr 50 mg PO AMHS spironolactone 25 mg tablet 25 mg PO QAM methenamine hippurate 1 gram tablet 1 g PO BID Qty: 60 0RF Discharge Orders: Discharge Order (Routine); Ordered 12/25/24 Ordered By: Bull Briscoe Admission Data Admit Date/Time: 12/17/24 22:13 Attending Provider: Bull Briscoe Admit Provider: Oscar Cornelius Primary Care Provider: Pavan Mckeon Other Providers: Nicho Lainez; See Wren; Estefany Wilburn; Isaac Stanley; Sabiha Page,Merly A.; Darinel Thorpe; Savanah Jimenez; Nguyen Sanchez; Trevin Edwards; John Hernandez; Byron Lux; Luisito Gotti I.; Romaine Banda II; Pau Santiago; Mika Aguirre; Demetrio Connor; Ej Ramirez; Agatha Harper; Anusha Ray
[2024-12-25] MEDS: FLUCONAZOLE 100 MG TAB PO SCH (13:20)
[2024-12-25 14:08] VITALS: PULSE 71
[2024-12-25] MEDS ORDERED: SULFAMETHOXAZOLE/TRIMETHOPRIM DS 800/160MG TAB PO SCH (21:00)
== END 2024-12-25 15:09 | disposition home or self-care (01) | DRG 659 ==
LOC: ED 18:25 → SUATTDRO 22:13 → 2N 22:13

== ENCOUNTER 2025-01-19 14:23 | Inpatient (IN) ==
--- NOTE | 2025-01-19 15:02 | Emergency Department Note ---
Impression & Plan Complicated urinary tract infection ED Provider Note HISTORY OF PRESENT ILLNESS: Patient is a 79-year-old female presenting with hematuria. Patient reports she has been having blood in her urine for a number of weeks. She states that her catheter was changed by home health nurse about 1 hour prior to arrival in the emergency department and she was noted to have a significant hematuria. Patient is on Eliquis. Reports some abdominal fullness sensation. She has a history of ureteral stents. She states that since the stents were placed she has been having intermittent episodes of hematuria, but states that her bleeding has been more prominent over the last few weeks. Denies any fevers or chills. She reports feeling lightheaded and dizzy. Patient just finished a course of Bactrim for a previously diagnosed UTI on 01/11/2025. ROS: as above PHYSICAL EXAM: Constitutional: Patient appears in no acute distress. Morbidly obese HENT: Head: Normocephalic and atraumatic. Eyes: EOMI, PERRL Mouth/Throat: Mucous membranes moist. Neck: Trachea midline. Neck supple. Cardiovascular: RRR, No murmurs, rubs or gallops. Intact distal pulses. Pulmonary/Chest: No respiratory distress. Breath sounds clear and equal bilaterally. No wheezes or rales. Abdominal: Abdomen soft, no tenderness, rebound or guarding. Cobb catheter in place draining pink-tinged urine. Musculoskeletal: No edema, tenderness or deformity noted. Skin: Warm and dry. No rash, erythema, pallor or cyanosis Psychiatric: Appropriate mood and affect for situation. Neurological: Alert and keenly responsive. CN II-XII grossly intact, moving all extremities equally and fully. MDM: - Vitals signs showed hypertension and tachycardia. - History obtained via patient. History as above. - Chronic conditions affecting care: HTN; HLD; DVT; Afib; morbid obesity; chronic indwelling cobb - Differential diagnoses include, but are not limited to: UTI; ureteral stone; ureteral stent; bladder mass - Order placed for continuous cardiac monitoring. At this time, monitor showed rate of 95 bpm with normal sinus rhythm, per my interpretation. - External medical records reviewed. ER note from 01/11/2025 was reviewed. Patient was diagnosed with a complicated UTI and initiated on Bactrim at that visit. - Laboratory workup interpreted by myself showed normal WBC; normal PT/INR; stable hemoglobin; stable electrolytes; normal lipase - Given 1L NS - UA showed evidence of infection. Given 2 g IV Rocephin. - CT abdomen/pelvis with IV contrast showed right ureteral stent and unchanged left ureteral stent. Bilateral renal calculi. - On review of patient's chart, she just completed a course of Bactrim for UTI diagnosed on 01/11/2025. - Discussion was had with leather case finisher about patient's case and need for admission - Hospitalist consulted for admission - [facility] and [facility] ASSESSMENT AND PLAN: Diagnosis: Complicated UTI Plan: Admit Past Med/Surg History Problem List (Updated 01/19/25 @ 17:25 by Karli Chicas MD) Complicated urinary tract infection (Acute) Complicated UTI (urinary tract infection) (Acute) Sepsis Abdominal pain, LLQ (Acute) Pyelitis (Acute) Recurrent UTI Enterococcal bacteremia Cellulitis of gluteal region (Acute) Cystitis (Acute) Chronic indwelling Cobb catheter (Acute) Acute pyelitis (Acute) Ureteral stent present Catheter-associated urinary tract infection E coli bacteremia Septic shock Elevated troponin (Acute) Severe sepsis (Acute) Acute metabolic encephalopathy Demand ischemia of myocardium Acute renal failure superimposed on chronic kidney disease Severe sepsis with acute organ dysfunction due to Gram negative bacteria Sacral back pain Infection associated with indwelling ureteral stent (Acute) Hematuria (Acute) Complicated urinary tract infection (Acute) Protein malnutrition Bilateral hydronephrosis Chronic indwelling Cobb catheter (Acute) Nephrolithiasis Urinary retention Calculus of left kidney Morbid obesity Atrial fibrillation (Acute) Encounter for pre-operative examination Deep vein thrombosis Hypertension Hyperlipidemia Asthma Osteoarthritis of knees, bilateral Chronic GERD Medical History Obesity Pulmonary hypertension moderate per 06/2023 ECHO (PASP 47mmHg) Skin breakdown sacral skin breakdown per 06/2024 hospitalization; pt to follow with wound care at [facility] 2 or more hospital admissions in past 6 months admitted [facility] 06/08-06/15/24: dx: complicated UTI, chronic indwelling cobb catheter, calculus of L kidney, b/l hydronephrosis. admitted [facility] 06/26- 06/30/24: dx: infection associated with indwelling uteretal stent, hematuria, acute L flank pain: pt D/C on Cefdinir (pt also noted to have sacral skin area breakdown during admission and pt to f/u with wound care at [facility]) History of anemia History of posterior vitreous detachment B/L History of asthma "Well controlled" Chronic indwelling Cobb catheter Hydronephrosis of left kidney Diabetes mellitus, type II Diet controlled Overactive bladder HTN (hypertension) GERD (gastroesophageal reflux disease) Hyperlipidemia Hx of vertigo Hx of cancer of uterus 2014- radiation Hx pulmonary embolism Remote hx years ago In setting of prolonged sitting/immobility during a previous hospitalization per records Urinary retention Cobb cath in place Atrial fibrillation Taking Eliquis History of home oxygen therapy not currently assisted resident Resides at [facility] Nontoxic thyroid nodule Hx: UTI (urinary tract infection) Recurrent Hx of sepsis Lipodermatosclerosis Chronic bronchitis 'Bronchial asthma' Acquired lymphedema "Stomach" Gets therapy/massage to manage > was complication after radiation treatment per previous PAT RN notation IBS (irritable bowel syndrome) Surgical History History of anesthesia reaction Awareness with D&C and colonoscopy History of open reduction and internal fixation (ORIF) procedure (06/2023) left femur fx Hx of cystoscopy Multiple; most recent: 04/13/24: MAC without issue History of cataract surgery (2020) R/L History of dilatation and curettage History of esophagogastroduodenoscopy (EGD) History of colonoscopy History of bilateral tubal ligation History of cholecystectomy Hx of hernia repair (12/2017) Ventral hernia with mesh History of tooth extraction History of cardiac cath (02/18/11) @ [facility]--No stents Family History Other No family history of adverse response to anesthesia Social History Smoking Status: Never smoker Second Hand Exposure: No; Do You Dip or Chew Tobacco: No; Hx Alcohol Use: No Hx Substance Use: No Preferred Language: Serbian Communication Ability: Effective Communication Ability Comment: alert and oriented x3 - of sound mind to sign consent Visual Impairment: No Limitations Television Repair Teacher Required: No Beliefs That Will Affect Care: None Current Living Situation: Personal Care Facility Current Living Situation Comment: [facility] Feels Safe at Home: Yes Assistive Devices: Wheelchair Allergies Allergies Allergy/AdvReac Type Severity Reaction Status Date / Time doxycycline Allergy Intermediate Swelling Verified 08/14/24 15:45 tetracycline Allergy Mild Eye Verified 08/14/24 15:45 swelling NARINDER Inhibitors AdvReac Intermediate Cough Verified 08/14/24 15:45 Sulfa (Sulfonamide AdvReac Mild Gastrointestinal Verified 08/14/24 15:45 Antibiotics) Upset Home Meds Home Medications Medication Instructions Recorded Confirmed acetaminophen 500 mg tablet 500 mg PO Q6H PRN Fever Or Pain 06/28/23 01/19/25 (Tylenol Extra Strength) apixaban 5 mg tablet (Eliquis) 5 mg PO AMHS 06/28/23 01/19/25 atorvastatin 80 mg tablet 80 mg PO HS 06/28/23 01/19/25 docusate sodium 100 mg capsule 200 mg PO HS 09/14/23 01/19/25 (Colace) ferrous sulfate 325 mg (65 mg 325 mg PO Q OTHER DAY 04/03/24 01/19/25 iron) tablet,delayed release montelukast 10 mg tablet 10 mg PO QAM 04/03/24 01/19/25 ascorbic acid (vitamin C) 500 mg 500 mg PO BID 07/10/24 01/19/25 tablet (Vitamin C) Saccharomyces boulardii 250 mg 250 mg PO QAM 08/14/24 01/19/25 capsule (Florastor) cranberry extract 500 mg capsule 500 mg PO QAM 08/14/24 01/19/25 (Cranberry Concentrate) diclofenac sodium 1 % topical gel 2 g EXT QID Pain 08/14/24 01/19/25 (Voltaren Arthritis Pain) zinc oxide 20 % topical ointment 1 applic topical BID 08/14/24 01/19/25 mirtazapine 15 mg tablet 22.5 mg PO BID 12/17/24 01/19/25 sennosides 8.6 mg tablet (senna) 17.2 mg PO HS PRN Constipation 12/17/24 01/19/25 methenamine hippurate 1 gram tablet 1 g PO BID 01/19/25 01/19/25 spironolactone 25 mg tablet 25 mg PO DAILY 01/19/25 01/19/25 Previous Rx's Medication Instructions Recorded tamsulosin 0.4 mg capsule 0.4 mg PO HS #30 caps 06/14/24 oxybutynin chloride 5 mg tablet 5 mg PO Q8H PRN bladder spasms #30 07/17/24 tabs water for irrigation, sterile 1 irrig irrigation DAILY PRN 12/08/24 (Curity Sterile Water irrigation catheter occlusion #6,000 mL solution) metoprolol succinate 25 mg 25 mg PO AMHS #60 tabs 12/25/24 tablet,extended release 24 hr miconazole nitrate 2 % topical 1 applic EXT PRN PRN rash #85 grams 12/25/24 powder (Desenex) oxycodone 5 mg tablet 5 mg PO Q4H PRN pain #10 tabs 12/25/24 sulfamethoxazole 800 1 tab PO BID 10 days #20 tabs 01/12/25 mg-trimethoprim 160 mg tablet (Bactrim DS) Results & Data (ED) Vital Signs Vital Signs - 24 hr 01/19/25 14:35 01/19/25 14:57 01/19/25 14:59 Temperature 36.9 C Temperature Source Oral Pulse Rate 90 97 H 97 H Pulse Rate [Apical] Pulse Rhythm Regular Respiratory Rate 18 18 Respiratory Effort / Characteristics Non-Labored Respiratory Depth Normal Respiratory Pattern Regular Blood Pressure 144/68 H Blood Pressure [Right Arm] Blood Pressure Mean 93 Blood Pressure Mean [Right Arm] Blood Pressure Position [Right Arm] Pulse Oximetry 97 97 Oxygen Delivery Method Room Air Room Air Sepsis Recent Fever Within 48 Hours No Sepsis New/Unexplained Change in Mental Status N/A Sepsis Action Taken by Nursing No Action Required 01/19/25 15:00 01/19/25 16:24 Temperature Temperature Source Pulse Rate Pulse Rate [Apical] 84 95 H Pulse Rhythm Respiratory Rate 20 18 Respiratory Effort / Characteristics Non-Labored Spontaneous Non-Labored Spontaneous Respiratory Depth Normal Normal Respiratory Pattern Regular Regular Blood Pressure Blood Pressure [Right Arm] 93/57 L 149/83 H Blood Pressure Mean Blood Pressure Mean [Right Arm] 69 105 Blood Pressure Position [Right Arm] Sitting Pulse Oximetry 93 97 Oxygen Delivery Method Room Air Room Air Sepsis Recent Fever Within 48 Hours Sepsis New/Unexplained Change in Mental Status Sepsis Action Taken by Nursing Laboratory Data 01/19/25 15:15 01/19/25 15:15 Lab Results 01/19/25 01/19/25 Range/Units 14:33 15:15 WBC 8.70 (4.8-10.8) K/ul RBC 4.41 (4.20-5.40) M/uL Hgb 12.3 (12.0-16.0) g/dl Hct 38.5 (37.0-47.0) % MCV 87.3 (80.0-100.0) fL MCH 27.9 (25.0-34.0) pg MCHC 31.9 L (32.0-36.0) g/dL RDW Std Deviation 52.9 H (36.4-46.3) fL RDW Coeff of Rodolfo 16.8 H (11.5-14.5) % Plt Count 264 (130-400) K/uL MPV 9.5 (9.4-12.4) fL Immature Gran % (Auto) 0.6 % Neut % (Auto) 51.0 % Lymph % (Auto) 37.0 % [place] % (Auto) 7.2 % Eos % (Auto) 3.6 % Baso % (Auto) 0.6 % Neut # (Auto) 4.44 (1.40-6.50) K/uL Lymph # (Auto) 3.22 (1.20-3.40) K/uL [place] # (Auto) 0.63 H (0.11-0.59) K/uL Eos # (Auto) 0.31 (0.00-0.50) K/uL Baso # (Auto) 0.05 (0.00-0.20) K/uL Immature Gran # (Auto) 0.05 (0.01-0.20) K/uL PT 11.4 (9.0-12.0) Seconds INR 1.1 (0.9-1.1) Sodium 136 (136-145) mmol/L Potassium 4.8 (3.5-5.1) mmol/L Chloride 101 (98-107) mmol/L Carbon Dioxide 30 (21-32) mmol/L Anion Gap 5 (3-11) BUN 18 (6-23) mg/dl Creatinine 0.63 (0.6-1.2) mg/dl Est Cr Clr Drug Dosing 79.1 ml/min eGFR 90.74 BUN/Creatinine Ratio 28.6 H (10-20) Glucose 94 (70-99(Fasting)) mg/dl Calcium 9.7 (8.6-10.3) mg/dl Total Bilirubin 0.3 (0.2-1.0) mg/dl AST 14 (13-39) U/L ALT 15 (7-52) U/L Alkaline Phosphatase 118 H (34-104) U/L Total Protein 6.6 (6.0-8.3) gm/dl Albumin 3.4 (3.4-5.0) gm/dl Globulin 3.2 (2.5-4.0) gm/dl Albumin/Globulin Ratio 1.1 (0.9-2) Lipase 39 (11-82) U/L Urine Color [place] Urine Appearance Turbid A (Clear) Urine pH 6.0 (4.5-7.5) Ur Specific [place] 1.010 (1.000-1.030) Urine Protein 2+ H (Negative) Urine Glucose (UA) Negative (Negative) Urine Ketones Negative (Negative) Urine Blood 3+ H (Negative) Urine Nitrite Positive A (Negative) Urine Bilirubin Negative (Negative) Urine Urobilinogen Negative (Negative) Ur Leukocyte Esterase 3+ H (Negative) Urine WBC (Auto) >50 H (0-5) /hpf Urine RBC (Auto) >20 H (0-2) /hpf U Hyaline Cast (Auto) 3-5 H (0-2) /lpf U Epithel Cells (Auto) 0-2 (0-2) /hpf Urine Bacteria (Auto) 4+ H (None Seen) Administered Medications Discontinued Medications Sodium Chloride (Nss) 1,000 mls @ 999 mls/hr IV .Q1H1M ONE Stop: 01/19/25 17:03 Last Admin: 01/19/25 16:21 Dose: 999 mls/hr Documented By: AMANDA Ceftriaxone Sodium (Rocephin) 2,000 mg in 50 mls @ 100 mls/hr IV NOW STA Stop: 01/19/25 16:32 Last Infusion: 01/19/25 16:58 Dose: Infused Documented By: Admin: 01/19/25 16:22 Dose: 100 mls/hr Documented By: AMANDA Ioversol (Optiray 320 100ml) 94 ml IV ONCE ONE Stop: 01/19/25 16:14 Last Admin: 01/19/25 16:13 Dose: 94 ml Documented By: EDK Imaging Data Radiologist's Impression: Abdomen/Pelvis CT 01/19/25 14:59 Clinical History: Gross hematuria Technique: Axial computed tomography images were obtained of the abdomen and pelvis after the administration of intravenous contrast. Comparison is made to the prior CT dated 12/17/2024. Findings: The liver is overall of normal size, attenuation, and contour with no sign of cirrhosis or significant fatty infiltration. No liver mass lesion is seen. The portal vein is patent. The gallbladder has been removed. No bile duct dilatation is noted. The spleen is of normal size. No focal splenic lesion is evident. The pancreas appears normal with no sign of acute or chronic pancreatitis and no mass lesion noted. The pancreatic duct is of normal caliber. There is a 2.3 x 1.3 cm unchanged right adrenal nodule, likely a benign adenoma. The left adrenal gland appears normal There is a new right ureteral stent. There is an unchanged left ureteral stent. There is a 1.2 cm calculus in the right renal pelvis. There are multiple right renal calculi, measuring up to 6 mm. There is a 5 mm calculus in the mid left kidney. There is a 3 cm left renal cyst. There is mild prominence of the right renal collecting system without overt hydronephrosis. There is left renal cortical atrophy. The aorta is of normal caliber. No abdominal adenopathy is seen. The stomach appears normal. There is no sign of small bowel obstruction. There is diverticulosis without evidence of diverticulitis. There is constipation. No free intraperitoneal fluid or air is identified. No distal ureteral or bladder calculi are seen. The bladder is decompressed. The iliac arteries are of normal caliber. No pelvic adenopathy is noted. There is mild left lower lobe atelectasis. There is coronary atherosclerosis. Lumbar scoliosis and degenerative disc disease is seen. There are unchanged compression fractures of the L1, L2, L3, and L5 vertebral bodies. There is internal fixation of the left femur. There is bilateral hip osteoarthritis. Impression: 1. New right ureteral stent and unchanged left ureteral stent 2. Bilateral renal calculi, including a 1.2 cm calculus in the right renal pelvis 3. Mild prominence of the right renal collecting system without overt hydronephrosis 4. Unchanged right adrenal adenoma 5. Left renal cyst 6. Diverticulosis without evidence of diverticulitis 7. Unchanged vertebral compression fractures ACT 112: Positive. There are findings on this exam that require communication between the performing entity and the patient following Patient Test Result Information Act ([place] ACT 112) guidelines. Electronically signed by Josue Dill 01-19-2025 5:12 PM Discharge Plan Visit Data Chief Complaint: Hematuria ED Provider: Karli Chicas Discharge Problem: Complicated urinary tract infection Condition: Fair Forms Stand Alone Forms: [facility] Prescriptions Prescriptions: No Action oxybutynin chloride 5 mg tablet 5 mg PO Q8H PRN (Reason: bladder spasms) Qty: 30 0RF water for irrigation, sterile [Curity Sterile Water] Solution 1 irrig irrigation DAILY PRN (Reason: catheter occlusion) Qty: 6000 2RF atorvastatin 80 mg tablet 80 mg PO HS acetaminophen [Tylenol Extra Strength] 500 mg Tablet 500 mg PO Q6H MDD 3gmAPAP/24hrs PRN (Reason: Fever Or Pain) Eliquis 5 mg tablet 5 mg PO AMHS docusate sodium [Colace] 100 mg Capsule 200 mg PO HS tamsulosin 0.4 mg Capsule 0.4 mg PO HS Qty: 30 0RF sennosides [senna] 8.6 mg Tablet 17.2 mg PO HS PRN (Reason: Constipation) mirtazapine 15 mg tablet 22.5 mg PO BID miconazole nitrate [Desenex] 2 % Powder 1 applic EXT PRN PRN (Reason: rash) Qty: 85 0RF metoprolol succinate 25 mg Tablet Extended Release 24 Hr 25 mg PO AMHS Qty: 60 0RF oxycodone 5 mg Tablet 5 mg PO Q4H PRN (Reason: pain) Qty: 10 0RF spironolactone 25 mg tablet 25 mg PO DAILY methenamine hippurate 1 gram tablet 1 g PO BID montelukast 10 mg Tablet 10 mg PO QAM ferrous sulfate 325 mg (65 mg iron) Tablet,Delayed Release (Dr/Ec) 325 mg PO Q OTHER DAY Patient Comments: in am ascorbic acid (vitamin C) [Vitamin C] 500 mg Tablet 500 mg PO BID zinc oxide 20 % Ointment 1 applic TOPICAL BID cranberry extract [Cranberry Concentrate] 500 mg Capsule 500 mg PO QAM Rx Instructions: administer with meals Saccharomyces boulardii [Florastor] 250 mg Capsule 250 mg PO QAM diclofenac sodium [Voltaren Arthritis Pain] 1 % gel 2 g EXT QID sulfamethoxazole-trimethoprim [Bactrim DS] 800-160 mg tablet 1 tab PO BID 10 Days Qty: 20 0RF Referrals Referrals: Pavan Mckeon MD [Primary Care Provider] -
[2025-01-19 15:38] LABS: Basophils # (auto) 0.05 K/uL (0.00-0.20); Basophils % (auto) 0.6 %; Eosinophils # (auto) 0.31 K/uL (0.00-0.50); Eosinophils % (auto) 3.6 %; Hematocrit (blood only) 38.5 % (37.0-47.0); Hemoglobin 12.3 g/dl (12.0-16.0); Immature Granulocytes # (auto) 0.05 K/uL (0.01-0.20); Immature Granulocytes % (auto) 0.6 %; Lymphocytes # (auto) 3.22 K/uL (1.20-3.40); Mean Corpuscular Hemoglobin 27.9 pg (25.0-34.0); Mean Corpuscular Hgb Conc 31.9 g/dL (32.0-36.0); Mean Corpuscular Volume 87.3 fL (80.0-100.0); Mean Platelet Volume 9.5 fL (9.4-12.4); Monocytes # (auto) 0.63 K/uL (0.11-0.59); Monocytes % (auto) 7.2 %; Neutrophils # (auto) 4.44 K/uL (1.40-6.50); Platelet Count 264 K/uL (130-400); RDW Coefficient of Variation 16.8 % (11.5-14.5); RDW Standard Deviation 52.9 fL (36.4-46.3); Red Blood Count 4.41 M/uL (4.20-5.40)
[2025-01-19 15:53] LABS: Albumin Globulin Ratio 1.1 (0.9-2); Albumin Level 3.4 gm/dl (3.4-5.0); BUN Creatinine Ratio 28.6 (10-20); Bilirubin,Total 0.3 mg/dl (0.2-1.0); Calcium 9.7 mg/dl (8.6-10.3); Creatinine Clr Calc Pharmacy 79.1 ml/min; Globulin 3.2 gm/dl (2.5-4.0); Potassium 4.8 mmol/L (3.5-5.1); Total Protein 6.6 gm/dl (6.0-8.3)
[2025-01-19 15:55] LABS: Appearance Urine Turbid (Clear); Bacteria Urine Automated 4+ (None Seen); Bilirubin Urine Negative (Negative); Blood Urine 3+ (Negative); Color Urine Orange; Epithelial Cell Urine Auto 0-2 /hpf (0-2); Glucose Urine UA Negative (Negative); Ketones Urine Negative (Negative); Leukocyte Esterase Urine 3+ (Negative); Nitrite Urine Positive (Negative); Protein Urine 2+ (Negative); RBC Urine Automated >20 /hpf (0-2); Urobilinogen Urine Negative (Negative); WBC Urine Automated >50 /hpf (0-5)
[2025-01-19 16:00] LABS: INR 1.1 (0.9-1.1); Prothrombin Time 11.4 Seconds (9.0-12.0)
[2025-01-19] MEDS: OPTIRAY 320 100ml IV ONE (16:13)
[2025-01-19] MEDS: SODIUM CHLORIDE 0.9% 1,000 ML IV ONE (16:21)
[2025-01-19] MEDS: cefTRIAXone SODIUM 2,000 MG/50 ML BAG IV STA (16:22)
--- NOTE | 2025-01-19 17:12 | CT Scan Report ---
Clinical History: Gross hematuria Technique: Axial computed tomography images were obtained of the abdomen and pelvis after the administration of intravenous contrast. Comparison is made to the prior CT dated 12/17/2024. Findings: The liver is overall of normal size, attenuation, and contour with no sign of cirrhosis or significant fatty infiltration. No liver mass lesion is seen. The portal vein is patent. The gallbladder has been removed. No bile duct dilatation is noted. The spleen is of normal size. No focal splenic lesion is evident. The pancreas appears normal with no sign of acute or chronic pancreatitis and no mass lesion noted. The pancreatic duct is of normal caliber. There is a 2.3 x 1.3 cm unchanged right adrenal nodule, likely a benign adenoma. The left adrenal gland appears normal There is a new right ureteral stent. There is an unchanged left ureteral stent. There is a 1.2 cm calculus in the right renal pelvis. There are multiple right renal calculi, measuring up to 6 mm. There is a 5 mm calculus in the mid left kidney. There is a 3 cm left renal cyst. There is mild prominence of the right renal collecting system without overt hydronephrosis. There is left renal cortical atrophy. The aorta is of normal caliber. No abdominal adenopathy is seen. The stomach appears normal. There is no sign of small bowel obstruction. There is diverticulosis without evidence of diverticulitis. There is constipation. No free intraperitoneal fluid or air is identified. No distal ureteral or bladder calculi are seen. The bladder is decompressed. The iliac arteries are of normal caliber. No pelvic adenopathy is noted. There is mild left lower lobe atelectasis. There is coronary atherosclerosis. Lumbar scoliosis and degenerative disc disease is seen. There are unchanged compression fractures of the L1, L2, L3, and L5 vertebral bodies. There is internal fixation of the left femur. There is bilateral hip osteoarthritis. Impression: 1. New right ureteral stent and unchanged left ureteral stent 2. Bilateral renal calculi, including a 1.2 cm calculus in the right renal pelvis 3. Mild prominence of the right renal collecting system without overt hydronephrosis 4. Unchanged right adrenal adenoma 5. Left renal cyst 6. Diverticulosis without evidence of diverticulitis 7. Unchanged vertebral compression fractures ACT 112: Positive. There are findings on this exam that require communication between the performing entity and the patient following Patient Test Result Information Act ([place] ACT 112) guidelines. Electronically signed by Josue Dill 01-19-2025 5:12 PM
--- NOTE | 2025-01-19 18:16 | History & Physical Report ---
Date of Service January 19, 2025 Assessment & Plan (1) Complicated urinary tract infection: (2) Hematuria: (3) Chronic indwelling Cobb catheter: (4) Ureteral stent present: Plan: Admit to [facility] Patient presenting from [facility] for evaluation of hematuria. Patient recently admitted to [facility] 12/17-12/25 for sepsis secondary to complicated UTI. Patient underwent left ureteral stent exchange and right ureteral stent placement on 12/21. Blood culture grew Staphylococcus capitis, Staphylococcus epidermidis, E. coli, and bacteroides fragilis. Patient was discharged on a 10-day course of Bactrim. Patient seen in the ED on 01/11 for recurrent hematuria. Discharged on Bactrim for suspected UTI. Patient was seen by home health today and noted to have worsening hematuria. Cobb catheter was exchanged and patient was referred back to the ED for reevaluation. Urine culture from 01/11 - 3 types of organisms present, likely contaminant UA today suggestive of UTI S/p IV ceftriaxone in the ED, will continue with CT ABD/pelvis shows bilateral ureteral stents in place without signs of infection or hydronephrosis Will hold Eliquis given hematuria Consult urology (5) PAF (paroxysmal atrial fibrillation): Plan: Rate controlled on metoprolol Anticoagulated on Eliquis, holding as above (6) History of DVT (deep vein thrombosis): (7) Hx pulmonary embolism: Plan: Holding Eliquis as above (8) Hypertension: Plan: Continue DUAL HOSE CEMENTER metoprolol and spironolactone DVT PROPHYLAXIS SCDs due to hematuria Patient seen in collaboration with Dr. Dai. I spent a total of 75 minutes coordinating, documenting, and providing care for this patient excluding time spent in the performance of separately billed services. This included personally reviewing all current laboratories and imaging studies, medication reconciliation, outpatient chart review, and discussion with specialists. History of Present Illness Chief Complaint: Hematuria Primary Care Provider: Pavan Mckeon MD 79 year old female with PMH paroxysmal atrial fibrillation anticoagulated on Coumadin, HTN, GERD, bilateral hydronephrosis s/p ureteral stents, urinary retention with chronic Cobb, recurrent UTI, history of DVT and pulmonary embolism, history of uterine cancer, and other problems listed below who presents for evaluation of hematuria. Patient recently admitted to [facility] 12/17- 12/25 for sepsis secondary to complicated UTI. Patient underwent left ureteral stent exchange and right ureteral stent placement on 12/21. Blood culture grew Staphylococcus capitis, Staphylococcus epidermidis, E. coli, and bacteroides fragilis. Patient was discharged on a 10-day course of Bactrim. Patient seen in the ED on 01/11 for recurrent hematuria. Discharged on Bactrim for suspected UTI. Patient was seen by home health today and noted to have worsening hematuria. Cobb catheter was exchanged and patient was referred back to the ED for reevaluation. Patient denies fevers and chills. No abdominal pain, nausea, vomiting, diarrhea. Denies chest pain and shortness of breath. No lightheadedness or dizziness. Patient is chronically bedbound. In the ED, UA is suggestive of UTI. CT ABD/pelvis shows that bilateral ureteral stents are in place, no signs of infection or hydronephrosis. Patient was given IVF and IV ceftriaxone. Allergies Allergy/AdvReac Type Severity Reaction Status Date / Time doxycycline Allergy Intermediate Swelling Verified 08/14/24 15:45 tetracycline Allergy Mild Eye Verified 08/14/24 15:45 swelling NARINDER Inhibitors AdvReac Intermediate Cough Verified 08/14/24 15:45 Sulfa (Sulfonamide AdvReac Mild Gastrointestinal Verified 08/14/24 15:45 Antibiotics) Upset Home Medications Medication Instructions Recorded Confirmed Type acetaminophen 500 mg tablet 500 mg PO Q6H PRN Fever Or Pain 06/28/23 01/19/25 History (Tylenol Extra Strength) apixaban 5 mg tablet (Eliquis) 5 mg PO AMHS 06/28/23 01/19/25 History atorvastatin 80 mg tablet 80 mg PO HS 06/28/23 01/19/25 History docusate sodium 100 mg capsule 200 mg PO HS 09/14/23 01/19/25 History (Colace) ferrous sulfate 325 mg (65 mg 325 mg PO Q OTHER DAY 04/03/24 01/19/25 History iron) tablet,delayed release montelukast 10 mg tablet 10 mg PO QAM 04/03/24 01/19/25 History tamsulosin 0.4 mg capsule 0.4 mg PO HS #30 caps 06/14/24 01/19/25 Rx ascorbic acid (vitamin C) 500 mg 500 mg PO BID 07/10/24 01/19/25 History tablet (Vitamin C) oxybutynin chloride 5 mg tablet 5 mg PO Q8H PRN bladder spasms #30 07/17/24 01/19/25 Rx tabs Saccharomyces boulardii 250 mg 250 mg PO QAM 08/14/24 01/19/25 History capsule (Florastor) cranberry extract 500 mg capsule 500 mg PO QAM 08/14/24 01/19/25 History (Cranberry Concentrate) diclofenac sodium 1 % topical gel 2 g EXT QID Pain 08/14/24 01/19/25 History (Voltaren Arthritis Pain) zinc oxide 20 % topical ointment 1 applic topical BID 08/14/24 01/19/25 History water for irrigation, sterile 1 irrig irrigation DAILY PRN 12/08/24 01/19/25 Rx (Curity Sterile Water irrigation catheter occlusion #6,000 mL solution) mirtazapine 15 mg tablet 22.5 mg PO BID 12/17/24 01/19/25 History sennosides 8.6 mg tablet (senna) 17.2 mg PO HS PRN Constipation 12/17/24 01/19/25 History metoprolol succinate 25 mg 25 mg PO AMHS #60 tabs 12/25/24 01/19/25 Rx tablet,extended release 24 hr miconazole nitrate 2 % topical 1 applic EXT PRN PRN rash #85 grams 12/25/24 01/19/25 Rx powder (Desenex) oxycodone 5 mg tablet 5 mg PO Q4H PRN pain #10 tabs 12/25/24 01/19/25 Rx sulfamethoxazole 800 1 tab PO BID 10 days #20 tabs 01/12/25 01/19/25 Rx mg-trimethoprim 160 mg tablet (Bactrim DS) methenamine hippurate 1 gram tablet 1 g PO BID 01/19/25 01/19/25 History spironolactone 25 mg tablet 25 mg PO DAILY 01/19/25 01/19/25 History Past Med/Surg History Problem List (Updated 01/19/25 @ 19:25 by MARTY Jorge) Complicated urinary tract infection (Acute) Recurrent UTI Enterococcal bacteremia Chronic indwelling Cobb catheter (Acute) Ureteral stent present E coli bacteremia Bilateral hydronephrosis Nephrolithiasis Urinary retention Morbid obesity Atrial fibrillation (Acute) Deep vein thrombosis Hypertension Hyperlipidemia Asthma Osteoarthritis of knees, bilateral Chronic GERD Medical History (Updated 01/19/25 @ 19:25 by MARTY Jorge) History of DVT (deep vein thrombosis) PAF (paroxysmal atrial fibrillation) Obesity Pulmonary hypertension moderate per 06/2023 ECHO (PASP 47mmHg) Skin breakdown sacral skin breakdown per 06/2024 hospitalization; pt to follow with wound care at [facility] 2 or more hospital admissions in past 6 months admitted [facility] 06/08-06/15/24: dx: complicated UTI, chronic indwelling cobb catheter, calculus of L kidney, b/l hydronephrosis. admitted [facility] 06/26- 06/30/24: dx: infection associated with indwelling uteretal stent, hematuria, acute L flank pain: pt D/C on Cefdinir (pt also noted to have sacral skin area breakdown during admission and pt to f/u with wound care at [facility]) History of anemia History of posterior vitreous detachment B/L History of asthma "Well controlled" Chronic indwelling Cobb catheter Hydronephrosis of left kidney Diabetes mellitus, type II Diet controlled Overactive bladder HTN (hypertension) GERD (gastroesophageal reflux disease) Hyperlipidemia Hx of vertigo Hx of cancer of uterus 2013- radiation Hx pulmonary embolism Remote hx years ago In setting of prolonged sitting/immobility during a previous hospitalization per records Urinary retention Cobb cath in place History of home oxygen therapy not currently [facility] resident Resides at [facility] Nontoxic thyroid nodule Hx: UTI (urinary tract infection) Recurrent Hx of sepsis Lipodermatosclerosis Chronic bronchitis 'Bronchial asthma' Acquired lymphedema "Stomach" Gets therapy/massage to manage > was complication after radiation treatment per previous PAT RN notation IBS (irritable bowel syndrome) Surgical History History of anesthesia reaction Awareness with D&C and colonoscopy History of open reduction and internal fixation (ORIF) procedure (06/2023) left femur fx Hx of cystoscopy Multiple; most recent: 04/13/24: MAC without issue History of cataract surgery (2020) R/L History of dilatation and curettage History of esophagogastroduodenoscopy (EGD) History of colonoscopy History of bilateral tubal ligation History of cholecystectomy Hx of hernia repair (12/2017) Ventral hernia with mesh History of tooth extraction History of cardiac cath (02/18/11) @ [facility]--No stents Family History Other No family history of adverse response to anesthesia Social History Smoking Status: Never smoker Second Hand Exposure: No; Do You Dip or Chew Tobacco: No; Hx Alcohol Use: No Hx Substance Use: No Preferred Language: Turkish Communication Ability: Effective Communication Ability Comment: alert and oriented x3 - of sound mind to sign consent Visual Impairment: No Limitations Senior Network Engineer Required: No Beliefs That Will Affect Care: None Current Living Situation: Personal Care Facility Current Living Situation Comment: [place] Feels Safe at Home: Yes Assistive Devices: Wheelchair Physical Exam Physical Exam: please refer to Dr. Dai's addendum for physical exam Results & Data Results & Data Vital Signs (Past 12 Hours) Vital Signs Temp Pulse Pulse Resp BP BP Pulse Ox 01/19/25 16:24 95 H 18 149/83 H 97 01/19/25 15:00 84 20 93/57 L 93 01/19/25 14:59 97 H 18 97 01/19/25 14:57 97 H 01/19/25 14:35 36.9 C 90 18 144/68 H 97 O2 Del Method 01/19/25 16:24 Room Air 01/19/25 15:00 Room Air 01/19/25 14:59 Room Air 01/19/25 14:57 01/19/25 14:35 Room Air Laboratory Results Short CBC 01/19/25 Range/Units 15:15 WBC 8.70 (4.8-10.8) K/ul Hgb 12.3 (12.0-16.0) g/dl Hct 38.5 (37.0-47.0) % Plt Count 264 (130-400) K/uL BMP 01/19/25 15:15 Sodium 136 Potassium 4.8 Chloride 101 Carbon Dioxide 30 BUN 18 Creatinine 0.63 Glucose 94 Calcium 9.7 Liver Function 01/19/25 Range/Units 15:15 Total Bilirubin 0.3 (0.2-1.0) mg/dl AST 14 (13-39) U/L ALT 15 (7-52) U/L Alkaline Phosphatase 118 H (34-104) U/L Albumin 3.4 (3.4-5.0) gm/dl Urine 05/09/25 Range/Units 14:33 Urine Color [place] Urine Appearance Turbid A (Clear) Urine pH 6.0 (4.5-7.5) Ur Specific [place] 1.010 (1.000-1.030) Urine Protein 2+ H (Negative) Urine Glucose (UA) Negative (Negative) Diagnostic Findings Abdomen/Pelvis CT 01/19/25 14:59 Clinical History: Gross hematuria Technique: Axial computed tomography images were obtained of the abdomen and pelvis after the administration of intravenous contrast. Comparison is made to the prior CT dated 12/17/2024. Findings: The liver is overall of normal size, attenuation, and contour with no sign of cirrhosis or significant fatty infiltration. No liver mass lesion is seen. The portal vein is patent. The gallbladder has been removed. No bile duct dilatation is noted. The spleen is of normal size. No focal splenic lesion is evident. The pancreas appears normal with no sign of acute or chronic pancreatitis and no mass lesion noted. The pancreatic duct is of normal caliber. There is a 2.3 x 1.3 cm unchanged right adrenal nodule, likely a benign adenoma. The left adrenal gland appears normal There is a new right ureteral stent. There is an unchanged left ureteral stent. There is a 1.2 cm calculus in the right renal pelvis. There are multiple right renal calculi, measuring up to 6 mm. There is a 5 mm calculus in the mid left kidney. There is a 3 cm left renal cyst. There is mild prominence of the right renal collecting system without overt hydronephrosis. There is left renal cortical atrophy. The aorta is of normal caliber. No abdominal adenopathy is seen. The stomach appears normal. There is no sign of small bowel obstruction. There is diverticulosis without evidence of diverticulitis. There is constipation. No free intraperitoneal fluid or air is identified. No distal ureteral or bladder calculi are seen. The bladder is decompressed. The iliac arteries are of normal caliber. No pelvic adenopathy is noted. There is mild left lower lobe atelectasis. There is coronary atherosclerosis. Lumbar scoliosis and degenerative disc disease is seen. There are unchanged compression fractures of the L1, L2, L3, and L5 vertebral bodies. There is internal fixation of the left femur. There is bilateral hip osteoarthritis. Impression: 1. New right ureteral stent and unchanged left ureteral stent 2. Bilateral renal calculi, including a 1.2 cm calculus in the right renal pelvis 3. Mild prominence of the right renal collecting system without overt hydronephrosis 4. Unchanged right adrenal adenoma 5. Left renal cyst 6. Diverticulosis without evidence of diverticulitis 7. Unchanged vertebral compression fractures ACT 112: Positive. There are findings on this exam that require communication between the performing entity and the patient following Patient Test Result Information Act ([place] ACT 112) guidelines. Electronically signed by Josue Dill 01-19-2025 5:12 PM Code Status & VTE Plan VTE Prophylaxis Plan VTE Prophylaxis will be ordered: No Supervising Physician Co-Signing Physician Notes Sent in by [facility] for hematuria Reports cobb was changed today On exam, General: Not in distress, Obese Eyes: PERRL, conjunctivae normal, not pale, anicteric sclerae, EOM intact bilaterally ENMT: External ear and nose normal, oropharynx normal Respiratory: Normal respiratory effort, no respiratory distress, lungs clear to auscultation, no crackles and no wheezes Cardiovascular: Irregular Gastrointestinal (Abdomen): Abdomen is not distended, soft, non-tender to palpation, no guarding, no palpable hepatosplenomegaly, normal bowel sounds Genitourinary: Cobb in situ, with dark urine in bag. Pinkish urine in catheter Neurologic: Alert and oriented x 3, No focal weakness, sensation grossly intact Psychiatric: Euthymic affect UA notable for leuk est, nitrite and >50WBC Suggestive of UTI CT A/P noted her new right ureteral stent, unchanged left ureteral stent, bilateral renal calculi, mild prominence in right renal system without overt hydronephrosis, unchanged right adrenal adenomas, unchanged vertebral compression fractures, left renal cyst Start ceftriaxone Follow up urine culture Considering physical exam, stable normal Hb and risks of CVA/VTE, continue DUAL HOSE CEMENTER eliquis and monitor Other plans as detailed by Estefany FERGUSON I spent a total of 40 minutes coordinating, documenting and providing care for this patient excluding time spent in performance of separately billed services (2) Hematuria Hematuria type: gross Qualified Code(s): R31.0 - Gross hematuria
--- OUTSIDE RECORDS SUMMARY | 2025-01-19 18:27 | External Medical Summary | Summary of Care ---
Author Name Unknown Organization [facility] Address [address] [place] [address] Phone [phone] Care Team Providers Care Photo Mask Cleaner Name Role Phone Pavan Mckeon MD Primary Care Provider [phone] Reason for Visit * Reason Onset Date Comments Advice 01/18/2025 Encounter Details Date Type Department Care Team (Late st Contact Info) Description 01/18/2025 Telephone [facility] [address] [facility] [address] Pavan Mckeon MD [address] [place], [place] [id number] Advice Allergies Active Allergy Reactions Criticality Noted Date Comments Chas Inhibitors 11/01/2007 cough Doxycycline 02/18/1999 eyes swollen Sulfa Antibiotics 02/18/1999 wierd documented as of this encounter (statuses as of 01/19/2025) Medications Meclizine HCl 25 MG Oral Tablet [...] hours as needed for Nausea or Vomiting. 12/21/202 3 Active Escitalopram Oxalate 10 MG Oral Tablet (Lexapro)Indicat ions:Current moderate episode of major depressive disorder, unspecified whether recurrent (HCC) Take 1 Tablet by mouth in the morning. 30 Tablet 4 Active Additional Information Patient not taking.Reported on 12/27/2024 Famotidine 20 MG Oral Tablet (Pepcid)Indicati ons:Gastroesopha geal reflux disease with esophagitis, unspecified whether hemorrhage Take 1 Tablet by mouth 2 times a day as needed for Heartburn. 60 Tablet 4 Active Additional Information Patient not taking.Reported on 12/27/2024 Cranberry 400 MG Oral CapsuleIndicatio ns:Recurrent UTI [...] 2 g before bedtime. 4 Active Nystatin 750391 UNIT/GM External Cream Apply 1 Application topically [...] for Pain, Severe. 90 Tablet 4 Active Additional Information Patient not taking.Reported on 12/27/2024 Eliquis 5 MG Oral Tablet (Apixaban)Indica tions:Paroxysmal atrial fibrillation (HCC) TAKE ONE TABLET BY MOUTH TWICE DAILY. *A-FIB* 60 Tablet 11 4 Active Fluticasone Propionate 50 MCG/ACT Nasal Suspension (Flonase) Administer 2 Sprays into each nostril in the morning. 16 g 5 06/28/202 4 Active Additional Information Patient not taking.Reported on 12/27/2024 Nitrofurantoin Monohyd Macro 100 MG Oral Capsule (Macrobid)Indica tions:Bacteriuri a Take 1 Capsule by mouth in the morning and 1 Capsule before bedtime. 10 Capsule 4 Active Additional Information Patient not taking.Reported on 12/27/2024 Mirtazapine 15 MG Oral Tablet (Remeron)Indicat ions:Current [...] Discontinue sucralfate 120 Tablet 10 5 Active Additional Information Patient not taking.Reported on 12/27/2024 Phenazopyridine HCl 200 MG Oral Tablet (Pyridium)Indica tions:Recurrent UTI Discontinue pyridium 10 Tablet Active Additional Information Patient not taking.Reported on 12/27/2024 Lansoprazole 30 MG Oral Capsule Delayed Release (Prevacid)Indica tions:Gastroesop hageal reflux disease with esophagitis, unspecified whether hemorrhage TAKE ONE CAPSULE BY MOUTH TWICE DAILY. *GERD* 56 Capsule 8 5 Active Montelukast Sodium 10 MG Oral Tablet (Singulair) TAKE ONE TAB BY MOUTH DAILY FOR ALLERGIES 28 Tablet 8 Active Metoprolol Succinate ER 50 MG Oral [...] as of this encounter (statuses as of 01/19/2025) Active Problems Problem Noted Date Diagnosed Date [...] as of this encounter (statuses as of 01/19/2025) Resolved Problems Problem Noted Date Diagnosed Date [...] Overview (01/07/2016): ICD-10 update of inactive term FDC current [...] as of this encounter (statuses as of 01/19/2025) Immunizations Name Administration Dates Next Due Pneumococcal [...] file 01/13/2024 Food Insecurity Answer Date Recorded Worried About Running Out of Food in the Last Ye ar Not on file 01/13/2024 Ran Out of Food in the Last Year Not on file 01/13/2024 Do you need food for this [...] Not on file Not on file telephone ad 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 * Telephone Encounter - Angelica Kwok LPN - 01/18/2025 2:38 PM EDT Crystal calling from [facility] in [facility] Trying to get the patient [facility]. Need an order for mcfp from Dr. Mckeon sent to [facility] . [phone] [facility] fax [phone] [facility] . * Telephone Encounter - Bridgette Lund OSA - 01/18/2025 2:33 PM EDT Reason for patient's call: Personal Care Caller was transferred to Nurse Dominguez at the nurse line. documented in this encounter Plan of Treatment Health Maintenance Due Date Last Done Comments DXA Scan 1945 EKG 1945 Depression Monitoring 1958 Zoster Vaccines (2 of 3) 08/24/2012 06/29/2012 DTap/Tdap Vaccines (2 - Td or Tdap) 03/26/2021 03/26/2011, 04/02/2000 Diabetic Eye Exam 07/29/2021 07/29/2020, , 06/27/2018, Additional history exists Adult Wellness Visit 05/25/2023 05/25/2022 Albumin/Creatinine Ratio 04/15/2024 082 023, 08/25/2019, 02/01/2019, Additional history exists COVID-19 [...] and were consensually agreed upon. Care Teams Photo Mask Cleaner Relationship Specialty Start Date End Date Pavan Mckeon MD [address] [place] [address] PCP - General Family Medicine 09/28/24 documented as of this encounter
--- OUTSIDE RECORDS SUMMARY | 2025-01-19 18:27 | External Medical Summary | Summary of Care ---
Author Name Unknown Organization [facility] Address [address] [place] [address] Phone [phone] Care Team Providers Care Keeler Polygraph Operator Name Role Phone Pavan Mckeon MD Primary Care Provider [phone]- [phone] Reason for Visit * Reason Onset Date Comments Fax 01/17/2025 Encounter Details Date Type Department Care Team (Late st Contact Info) Description 01/17/2025 Telephone [facility] [address] [facility] [place] [phone] Pavan Mckeon MD [address] [place], [place] [phone] Fax Allergies Active Allergy Reactions Criticality Noted Date Comments Chas Inhibitors 11/01/2007 cough Doxycycline 02/18/1999 eyes swollen Sulfa Antibiotics 02/18/1999 wierd documented as of this encounter (statuses as of 01/18/2025) Medications Meclizine HCl 25 MG Oral Tablet [...] 2 g before bedtime. 4 Active Nystatin 650218 UNIT/GM External Cream Apply 1 Application topically [...] the morning. 16 g 5 4 Active Additional Information Patient not taking.Reported [...] MOUTH TWICE DAILY. *GERD* 56 Capsule 8 Active Montelukast Sodium 10 MG Oral Tablet (Singulair) TAKE ONE TAB BY MOUTH DAILY FOR ALLERGIES 28 Tablet 8 Active Metoprolol Succinate ER 50 MG Oral Tablet Extended Release 24 Hour (toPROL XL)Indications:P aroxysmal atrial fibrillation (HCC),HTN, goal below 130/80 TAKE 1 TABLET BY MOUTH TWICE DAILY *HYPERTENSION* 56 Tablet 11 Active Spironolactone 25 MG Oral Tablet (Aldactone)Indic ations:HTN, goal below 130/80 TAKE ONE TABLET BY MOUTH DAILY *HTN* 28 Tablet 11 Active documented as of this encounter (statuses as of 01/18/2025) Active Problems Problem Noted Date Diagnosed Date [...] as of this encounter (statuses as of 01/18/2025) Resolved Problems Problem Noted Date Diagnosed Date [...] Overview (01/07/2016): ICD-10 update of inactive term jail current use of ant icoagulant therapy 03/17/2011 [...] as of this encounter (statuses as of 01/18/2025) Immunizations Name Administration Dates Next Due Pneumococcal [...] file Not on file Not on file 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 Not on file Not on file [...] encounter Miscellaneous Notes * Telephone Encounter - Ny Park LPN - 01/18/2025 7:07 AM EDT OV notes faxed to [phone] * Telephone Encounter - Krystina Marsh OSA - 01/17/2025 2:30 PM EDT Caller requesting the following information to be faxed: Name/Company of caller: [employer] Information requested to be faxed: last visit notes Fax number: she does not have it [facility] Any additional information?: she needs this so they can get her a new home health service for her needs -she needs this BRI -please call pt when done [phone] Amy documented in this encounter Plan of Treatment Health Maintenance Due Date Last Done Comments DXA Scan 1945 Depression Monitoring 1958 Zoster Vaccines (2 of 3) 08/24/2012 06/29/2012 DTap/Tdap Vaccines (2 - Td or Tdap) 03/26/2021 03/26/2011, 04/02/2000 Diabetic Eye Exam 07/29/2021 07/29/2020, , 06/27/2018, Additional history exists Adult Wellness Visit 05/25/2023 05/25/2022 Albumin/Creatinine Ratio 04/15/2024 0803/2 023, 08/25/2019, 02/01/2019, Additional history exists COVID-19 [...] and were consensually agreed upon. Care Teams Keeler Polygraph Operator Relationship Specialty Start Date End Date Pavan Mckeon MD [address] [facility] [place] [address] PCP - General Family Medicine 09/28/24 documented as of this encounter
--- OUTSIDE RECORDS SUMMARY | 2025-01-19 18:27 | External Medical Summary | Summary of Care ---
Author Name Unknown Organization [facility] Address [address] [place] [address] Phone [phone] Care Team Providers Care Assembler Chassis Name Role Phone Pavan Mckeon MD Primary Care Provider +1- [phone] Reason for Visit * Reason Onset Date Comments Home Health 01/12/2025 Encounter Details Date Type Department Care Team (Late st Contact Info) Description 01/12/2025 Telephone [facility] [address] [place] [address] Pavan Mckeon MD [address] [place], [place] [id number] Home Health Allergies Active Allergy Reactions Criticality Noted Date [...] 2 g before bedtime. 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 01/19/2025 * Telephone Encounter - Gretchen Chambers LPN - 01/16/2025 8:48 AM EDT Admission/Start of Care Admission/Start of Care: ayan Isbell Calling from: [facility] Patient was Admitted to: [facility], for: Complicated UTI discharged 01/11 Referral ordered by: [facility] Referral received for: Nursing Home Planned start of care date:Yes, Date 01/17 They will call with any updates or additional concerns from the upcoming HH visit. Last Office Visit: 11/23/2023 Last Telehealth Visit: 12/28/2024 Has patient been scheduled or seen in the office for a follow up visit: Needs contacted to schedulefollow up Unable to give verbal for PCP to sign orders, patient needs to schedule office visit. [facility] * Telephone Encounter - Amber Tay OSA - 01/16/2025 8:45 AM EDT Rhiannon calling from [facility] to speak to a nurse, they need to know if the provider will be willing to sign orders for the pt. Transferred to nurse line * Telephone Encounter - Jaylene Segura OSA - 01/15/2025 3:33 PM EDT Patient calling in to check on the status of previous message. Patient Called within 48 hour timeframe. Reminded patient of 48 hour turn-around time. * Telephone Encounter - Nika Dominguez OSA - 01/15/2025 12:32 PM EDT Reason for patient's call: Home Health, Betsey calling back checking status of order request, they would like to start services tomorrow. * Telephone Encounter - Janell Turner OSA - 01/15/2025 10:08 AM EDT Images from the original note were not included. Calling back for an update Betsey calling from [facility] to speak with a nurse to check if provider would be willing to sign orders for nursing services. Transferred to nurse line, no success. Please contact Betsey back to advise [phone] * Telephone Encounter - Amber Tay OSA - 01/12/2025 3:18 PM EDT Betsey calling from [employer] to speak with a nurse to check if provider would be willing to sign orders for nursing services. Transferred to nurse line, no success. Please contact Betsey back to advise documented in this encounter Plan of Treatment Upcoming Encounters Date Type Department Care Team (Late st Contact Info) Description 01/22/2025 10:00 AM EDT Telemedicine [facility] [address] [phone] Castillo Dunaway PA-C [address] [address] Health Maintenance Due Date Last Done Comments [...] Completed 08/20/2015, 11/27/2011, 08/08/2002, Additional history exists EKG Completed 06/08/2024, 06/13, 05/16/2009, Additional history exists Influenza Vaccine (FLU shot) [...] and were consensually agreed upon. Care Teams Assembler Chassis Relationship Specialty Start Date End Date Pavan Mckeon MD [address] [address] PCP - General Family Medicine 09/28/24 documented as of this encounter
--- OUTSIDE RECORDS SUMMARY | 2025-01-19 18:27 | External Medical Summary | Summary of Care ---
Author Name Unknown Organization [facility] Address [address] [place] [address] Phone [phone] Care Team Providers Care In Home Sales Consultant Name Role Phone Pavan Mckeon MD Primary Care Provider +1- [phone] Encounter Details Date Type Department Care Team (Late st Contact Info) Description 12/28/2024 3:00 PM EDT Telemedicine [facility] [address] [place] [phone] Pavan Mckeon MD [address] [place] [address] Recurrent UTI* Allergies Active Allergy Reactions Criticality Noted Date Comments Chas Inhibitors 11/01/2007 cough Doxycycline 02/18/1999 eyes swollen Sulfa Antibiotics 02/18/1999 wierd documented as of this encounter (statuses as of 01/16/2025) Medications Meclizine HCl 25 MG Oral Tablet [...] 2 g before bedtime. 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 I was in a hospital or clinic location. After connecting through televideo,patient was verified with two unique identifiers. Patient (or authorized legal special service representative) was then informed that this was a Telemedicine visit and being conducted confidentially over secure lines. Methods to assure confidentiality were taken. Patient acknowledged consent and understanding of pr ivacy and security of the Telemedicine visit. The patient agreed to participate. History of Present Illness The patient, with a history of recurrent UTIs related to an indwelling catheter, was recently hospitalized due to a UTI that led to E. coli bacteremia. The patient reported feeling unwell and suspected a UTI, but the initial urinalysis showed multiple organisms, leading to uncertainty about the diagnosis. The patient's condition worsened, leading to hospitalization. The patient also mentions a disagreement between the home health nurse and the patient's family regarding the necessity of weekly catheter flushes. The patient is considering changing home health agencies due to dissatisfaction with the current care. Assessment & Plan Recurrent Urinary Tract Infections (UTIs) Recurrent UTIs are due to an indwelling catheter, increasing the risk of bacterial colonization. Recent E. coli bacteremia likely originated from the urinary tract. Urine culture identified E. coli as the primary pathogen, with staphylococcal species likely as contaminants. She is at high risk for future infections and hospitalizations. Continuous antibiotics are not advised to prevent resistance. Early symptom intervention is crucial. Consider a new home health referral for catheter management. Instruct her to contact home health or the clinic at the first sign of UTI symptoms for urine collection and early treatment. Review infectious disease notes for additional prevention strategies. Schedule a follow-up in a few months. Goals of Care Discussed the risk of recurrent hospital admissions due to UTIs and the importance of early intervention. She expressed concern about the frequency of infections and hospital stays. Emphasized the need to recognize early infection signs to avoid hospital admissions. Ensure she understands infectionsigns and when to seek medical attention. Text in this note was generated using an [employer] documentation service. I discussed the use of a device to record and summarize our discussion today. All persons present during the encounter consented to its use. 25 min with pt and chart review. Pavan Mckeon MD documented in this encounter [...] specified documented in this encounter Advance Directives * Full Code (Latest Code Status on File) Date Activated Date Inactivated Comments 07/24/2014 7:59 AM 07/26/2014 10:17 PM This orde r reflects the patients wishes and were consensually agreed upon. Care Teams In Home Sales Consultant Relationship Specialty Start Date End Date Pavan Mckeon MD [address] [address] PCP - General Family Medicine 09/28/24 documented as of this encounter
[2025-01-19] MEDS ORDERED: SENNA 8.6 MG TAB PO PRN (21:06)
--- OUTSIDE RECORDS SUMMARY | 2025-01-19 21:39 | External Medical Summary | Summary of Care ---
Author Name Unknown Organization [facility] Address [address] [place] [address] Phone [phone] Care Team Providers Care Physician'S Assistant Name Role Phone Pavan Mckeon MD Primary Care Provider +1- [phone] Reason for Visit * Reason Onset Date Comments Advice 01/19/2025 Encounter Details Date Type Department Care Team (Late st Contact Info) Description 01/19/2025 Telephone [facility] [address] [facility] [place] [address] Pavan Mckeon MD [address] [place], [place] [phone] Advice Allergies Active Allergy Reactions Criticality Noted [...] 2 g before bedtime. 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 * Telephone Encounter - Latonia Freeman, DIDI - 01/19/2025 1:31 PM EDT Reason for patient's call: Rhiannon calling in from [employer] to discuss pt Caller was transferred to Akilah at the nurse line. documented in this encounter Plan of Treatment Upcoming Encounters Date Type Department Care Team (Late st Contact Info) Description 01/22/2025 10:00 AM EDT Telemedicine [facility] [address] [phone] Castillo Dunaway PA-C [address] [facility] [address] [place] [address] Health Maintenance Due Date Last Done Comments [...] and were consensually agreed upon. Care Teams Physician'S Assistant Relationship Specialty Start Date End Date Pavan Mckeon MD [address] [address] PCP - General Family Medicine 09/28/24 documented as of this encounter
--- OUTSIDE RECORDS SUMMARY | 2025-01-19 21:39 | External Medical Summary | Summary of Care ---
Author Name Unknown Organization [facility] Address [address] [place] [address] Phone [phone] Care Team Providers Care Account Relationship Manager Name Role Phone Pavan Mckeon MD Primary Care Provider +1- [phone] Reason for Visit * Reason Onset Date Comments Home Health 01/12/2025 Encounter Details Date Type Department Care Team (Late st Contact Info) Description 01/12/2025 Telephone [facility] [address] [place] [address] Pavan Mckeon MD [address] [place], [place] [phone] Home Health Allergies Active Allergy Reactions Criticality [...] 2 g before bedtime. 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 Last Office Visit: 11/23/2023 Last Telehealth Visit: 12/28/2024 Has patient been scheduled or seen in the office for a follow up visit: Needs contacted to schedulefollow up Unable to give verbal for PCP to sign orders, patient needs to schedule office visit. [facility] * Telephone Encounter - Amber Tay OSA - 01/16/2025 8:45 AM EDT [facility] nurse, they need [...] back for an update Betsey [facility] to speak with a nurse to check if provider would be willing to sign orders for nursing services. Transferred to nurse line, no success. Please contact Betsey back to advise [phone] * Telephone Encounter - Amber Tay OSA - 01/12/2025 3:18 PM EDT Betsey calling from [facility] to speak with a nurse to check if provider would be willing to sign orders for nursing services. Transferred to nurse line, no success. Please contact Betsey back to advise documented in this encounter Plan of Treatment Upcoming Encounters Date Type Department Care Team (Late st Contact Info) Description 01/22/2025 10:00 AM EDT Telemedicine [facility] [address] [phone] Castillo Dunaway PA-C [address] [address] Health Maintenance Due Date Last Done Comments [...] and were consensually agreed upon. Care Teams Account Relationship Manager Relationship Specialty Start Date End Date Pavan Mckeon MD [address] [address] PCP - General Family Medicine 09/28/24 documented as of this encounter
[2025-01-19] MEDS: DOCUSATE SODIUM 100 MG CAP PO SCH (21:54)
[2025-01-19] MEDS: TAMSULOSIN HCL 0.4 MG CAP PO SCH (21:58)
[2025-01-19] MEDS: APIXABAN 5 MG TABLET PO SCH (21:58)
[2025-01-19] MEDS: METHENAMINE HIPPURATE 1 GM TAB PO SCH (21:58)
[2025-01-19] MEDS: METOPROLOL SUCC 25MG EXT REL TAB PO SCH (21:58)
[2025-01-19] MEDS: ATORVASTATIN 40 MG TAB PO SCH (21:58)
[2025-01-19] MEDS: MIRTAZAPINE TAB 15 MG TAB PO SCH (21:58)
[2025-01-20] MEDS: oxyCODONE HCL IR 5 MG TAB (IMMEDIATE RELEASE) PO PRN (00:23)
[2025-01-20] MEDS: ACETAMINOPHEN 325 MG TAB PO PRN (04:42)
[2025-01-20 06:08] LABS: Hematocrit (blood only) 35.2 % (37.0-47.0); Hemoglobin 11.2 g/dl (12.0-16.0); Mean Corpuscular Hemoglobin 28.1 pg (25.0-34.0); Mean Corpuscular Hgb Conc 31.8 g/dL (32.0-36.0); Mean Corpuscular Volume 88.2 fL (80.0-100.0); Mean Platelet Volume 9.8 fL (9.4-12.4); Platelet Count 240 K/uL (130-400); RDW Coefficient of Variation 17.1 % (11.5-14.5); RDW Standard Deviation 53.9 fL (36.4-46.3); Red Blood Count 3.99 M/uL (4.20-5.40); White Blood Count 8.53 K/ul (4.8-10.8)
[2025-01-20 06:25] LABS: BUN Creatinine Ratio 27.1 (10-20); Calcium 9.2 mg/dl (8.6-10.3); Creatinine Clr Calc Pharmacy 71.2 ml/min; Potassium 4.5 mmol/L (3.5-5.1)
[2025-01-20] MEDS: FERROUS SULFATE 325 MG TAB PO SCH (07:39)
[2025-01-20] MEDS: SPIRONOLACTONE 25 MG TAB PO SCH (07:40)
[2025-01-20] MEDS: MONTELUKAST SODIUM 10 MG TABLET PO SCH (07:40)
[2025-01-20] MEDS: SACCHAROMYCES BOULARDII 250 MG CAP PO SCH (07:41)
--- NOTE | 2025-01-20 09:48 | Urology Consultation ---
Date of Consultation January 20, 2025 Assessment & Plan (1) Recurrent UTI: (2) Complicated urinary tract infection: (3) Gross hematuria: Plan Gross hematuria; history of UTIs I would describe her quantity of bleeding as expected and appropriate given bilateral indwelling ureteral stents and an indwelling Cobb catheter He does appear to be draining appropriately, flush as needed Her symptoms are relatively modest, she likely has some level of bladder spasmshe is on oxybutynin If felt that it would be appropriate to add additional treatment, would consider adding Myrbetriq 25 mg She does have a history of Gina UTI She has an indwelling Cobb catheter so would not be surprising if she grows some level of bacteria or even yeast Right now, she does not show systemic signs of illness so I think would actually be quite reasonable to discharge her back to her fdc with appropriate instructions of the staff that we would expect to see some level of bleeding within her urine as long as she has indwelling stents in the catheter If it is decided to wait until she has a fully finalized culture, I think that is reasonable as welleven if she has Gina we will not intervene and change her stents or catheter right now History of Present Illness Attending Physician: Markie Gamino MD History of Present Illness 79-year-old female admitted overnight with hematuria She has not experienced fevers or chills and her vital signs of remained stable Labs all appropriate, white blood cell count 8.5 Hemoglobin 11.2 Chronic anemia, on iron Creatinine 0.7, at baseline Had a CT on arrival which showed bilateral ureteral stents in appropriate position without hydronephrosis She has a collapsed bladder around Cobb catheter with no visible masses or substantial clot accumulation She reports that she is not feeling too poorly this morning No fevers or chills, just nervous about the amount of blood in her urine Allergies Allergy/AdvReac Type Severity Reaction Status Date / Time doxycycline Allergy Intermediate Swelling Verified 08/14/24 15:45 tetracycline Allergy Mild Eye Verified 08/14/24 15:45 swelling NARINDER Inhibitors AdvReac Intermediate Cough Verified 08/14/24 15:45 Sulfa (Sulfonamide AdvReac Mild Gastrointestinal Verified 08/14/24 15:45 Antibiotics) Upset Home Medications Medication Instructions Recorded Confirmed Type acetaminophen 500 mg tablet 500 mg PO Q6H PRN Fever Or Pain 06/28/23 01/19/25 History (Tylenol Extra Strength) apixaban 5 mg tablet (Eliquis) 5 mg PO AMHS 06/28/23 01/19/25 History atorvastatin 80 mg tablet 80 mg PO HS 06/28/23 01/19/25 History docusate sodium 100 mg capsule 200 mg PO HS 09/14/23 01/19/25 History (Colace) ferrous sulfate 325 mg (65 mg 325 mg PO Q OTHER DAY 04/03/24 01/19/25 History iron) tablet,delayed release montelukast 10 mg tablet 10 mg PO QAM 04/03/24 01/19/25 History tamsulosin 0.4 mg capsule 0.4 mg PO HS #30 caps 06/14/24 01/19/25 Rx ascorbic acid (vitamin C) 500 mg 500 mg PO BID 07/10/24 01/19/25 History tablet (Vitamin C) oxybutynin chloride 5 mg tablet 5 mg PO Q8H PRN bladder spasms #30 07/17/24 01/19/25 Rx tabs Saccharomyces boulardii 250 mg 250 mg PO QAM 08/14/24 01/19/25 History capsule (Florastor) cranberry extract 500 mg capsule 500 mg PO QAM 08/14/24 01/19/25 History (Cranberry Concentrate) diclofenac sodium 1 % topical gel 2 g EXT QID Pain 08/14/24 01/19/25 History (Voltaren Arthritis Pain) zinc oxide 20 % topical ointment 1 applic topical BID 08/14/24 01/19/25 History water for irrigation, sterile 1 irrig irrigation DAILY PRN 12/08/24 01/19/25 Rx (Curity Sterile Water irrigation catheter occlusion #6,000 mL solution) mirtazapine 15 mg tablet 22.5 mg PO BID 12/17/24 01/19/25 History sennosides 8.6 mg tablet (senna) 17.2 mg PO HS PRN Constipation 12/17/24 01/19/25 History metoprolol succinate 25 mg 25 mg PO AMHS #60 tabs 12/25/24 01/19/25 Rx tablet,extended release 24 hr miconazole nitrate 2 % topical 1 applic EXT PRN PRN rash #85 grams 12/25/24 01/19/25 Rx powder (Desenex) oxycodone 5 mg tablet 5 mg PO Q4H PRN pain #10 tabs 12/25/24 01/19/25 Rx sulfamethoxazole 800 1 tab PO BID 10 days #20 tabs 01/12/25 01/19/25 Rx mg-trimethoprim 160 mg tablet (Bactrim DS) methenamine hippurate 1 gram tablet 1 g PO BID 01/19/25 01/19/25 History spironolactone 25 mg tablet 25 mg PO DAILY 01/19/25 01/19/25 History Patient History Medical History (Updated 01/19/25 @ 19:25 by MARTY Jorge) History of DVT (deep vein thrombosis) PAF (paroxysmal atrial fibrillation) Obesity Pulmonary hypertension moderate per 06/2023 ECHO (PASP 47mmHg) Skin breakdown sacral skin breakdown per 06/2024 hospitalization; pt to follow with wound care at [facility] 2 or more hospital admissions in past 6 months admitted [facility] 06/08-06/15/24: dx: complicated UTI, chronic indwelling cobb catheter, calculus of L kidney, b/l hydronephrosis. admitted [facility] 06/26- 06/30/24: dx: infection associated with indwelling uteretal stent, hematuria, acute L flank pain: pt D/C on Cefdinir (pt also noted to have sacral skin area breakdown during admission and pt to f/u with wound care at [facility]) History of anemia History of posterior vitreous detachment B/L History of asthma "Well controlled" Chronic indwelling Cobb catheter Hydronephrosis of left kidney Diabetes mellitus, type II Diet controlled Overactive bladder HTN (hypertension) GERD (gastroesophageal reflux disease) Hyperlipidemia Hx of vertigo Hx of cancer of uterus 2013- radiation Hx pulmonary embolism Remote hx years ago In setting of prolonged sitting/immobility during a previous hospitalization per records Urinary retention Cobb cath in place History of home oxygen therapy not currently [facility] resident Resides at [facility] Nontoxic thyroid nodule Hx: UTI (urinary tract infection) Recurrent Hx of sepsis Lipodermatosclerosis Chronic bronchitis 'Bronchial asthma' Acquired lymphedema "Stomach" Gets therapy/massage to manage > was complication after radiation treatment per previous PAT RN notation IBS (irritable bowel syndrome) Surgical History History of anesthesia reaction Awareness with D&C and colonoscopy History of open reduction and internal fixation (ORIF) procedure (06/2023) left femur fx Hx of cystoscopy Multiple; most recent: 04/13/24: MAC without issue History of cataract surgery (2020) R/L History of dilatation and curettage History of esophagogastroduodenoscopy (EGD) History of colonoscopy History of bilateral tubal ligation History of cholecystectomy Hx of hernia repair (12/2017) Ventral hernia with mesh History of tooth extraction History of cardiac cath (02/18/11) @ [facility]--No stents Family History Other No family history of adverse response to anesthesia Social History Smoking Status: Never smoker Second Hand Exposure: No; Do You Dip or Chew Tobacco: No; Hx Alcohol Use: No Hx Substance Use: No Preferred Language: Yi Communication Ability: Effective Communication Ability Comment: alert and oriented x3 - of sound mind to sign consent Visual Impairment: No Limitations Senior Technical Editor Required: No Beliefs That Will Affect Care: None Current Living Situation: Personal Care Facility Current Living Situation Comment: [facility] Feels Safe at Home: Yes Safety Concerns: Feels Safe At This Time Assistive Devices: Glasses and Wheelchair Physical Exam Physical Exam: Resting comfortably in bed Cobb catheter in place with brown appearing granular blood clot but mostly clear urine No bright red blood Results & Data Vital Signs (Past 12 Hours) Vital Signs Temp Pulse Resp BP Pulse Ox O2 Del Method 01/20/25 07:30 36.7 C 73 16 110/70 94 Room Air PG Care Time/CCT Total # of Minutes Spent Total Time Spent with Patient: Total time spent is greater than 50% in coordination of care (as documented) at patient's floor/unit and/or counseling patient: Coding Level of Care Code 48150 INT INP/OBS CARE 1/40MIN Diagnoses Recurrent UTI N39.0 Complicated urinary tract infection N39.0 Gross hematuria R31.0
[2025-01-20] MEDS: NYSTATIN CR 15 GM TUBE EXT SCH (10:05)
--- NOTE | 2025-01-20 11:08 | Hospitalist Progress Note ---
Date of Service January 20, 2025 Assessment & Plan (1) Complicated urinary tract infection: (2) Hematuria: (3) Chronic indwelling Cobb catheter: (4) Ureteral stent present: (5) PAF (paroxysmal atrial fibrillation): (6) History of DVT (deep vein thrombosis): (7) Hx pulmonary embolism: (8) Hypertension: Plan This is a 79 yr old F who has a significant PMH of T2DM, HTN, HLD, PAF, Asthma, GERD with esophagitis, morbid obesity, Recurrent UTI, indwelling foely catheter, b/l ureteral stent placement, nephrolithiasis, Hx of DVT/PE, Hx of uterine cancer and depression who presents to ED 2/2 Hematuria. PT has indwelling cobb and follows with [facility]. Patient recently admitted to [facility] 12/17-12/25 for sepsis secondary to complicated UTI. Patient underwent left ureteral stent exchange and right ureteral stent placement on 12/21. Blood culture grew Staphylococcus capitis, Staphylococcus epidermidis, E. coli, and bacteroides fragilis. Patient was discharged on a 10-day course of Bactrim. Patient seen in the ED on 01/11 for recurrent hematuria. Discharged on Bactrim for suspected UTI. Pt denies experiencing fevers at facility, but does admit to L sided flank pain. She reports dark drown/maroon blood in cath for past 3-4 weeks. #Hematuria #Possible complicated UTI, catheter associated, POA #B/L Ureteral Stents in place #Known nephrolithiasis admitted to [facility] Urine equivocal in ED and started on IV Ceftraixone, await culture Seen and evaluated by urology who feels her quantity of bleeding is as expected and appropriate given b/l indwelling ureteral stents Cobb is draining appropriately On oxybutnin for bladder spasm, will consider myrbetriq 25mg if pt becomes more symptomatic Urology does not plan to intervene at this time and feel discharge is reasonable given no signs of systemic illness It should be noted that she is going to have a level of hematuria, can consider flushing prn #PAF #Hx of DVT/PE continue eliquis, metoprolol #T2DM a1c 5.7, diet controlled #DVT ppx: Eliquis DNR/DNI PCP: Brittanietershelby Dispo: admitted to [facility], expect can discharge back to [facility] tomorrow Pt was seen and examined in collaboration with Dr. Gamino, please see addendum I spent a total of 51 minutes coordinating, documenting and providing care for this patient excluding time spent in the performance of separately billed services or time spent by another provider/QHP. Admission and Anticipated Discharge Date Admission Date: January 19, 2025 Supervising Physician Co-Signing Physician Notes I have reviewed the advanced practitioner's documentation, and I agree with, and take responsibility for the plan of care Subjective Pt seen and examined in 315. She reports she didn't sleep well due to L flank pain. Pain was severe until she took oxy and tylenol. That seemed to ease her pain. She reports coming to ED 2/2 hematuria that has been persisting for 3 weeks. She denies any fever, chills, sweats, chest pain, sob, n/v. She states color or blood is dark brown/maroon and has been that way for weeks now. She does not feel that it is changed. She tolerated her breakfast. She is bedbound at [facility]. Plan is to return to [facility]. Review of Systems Review of Systems: All systems reviewed & are unremarkable except as noted in HPI & below Physical Exam Physical Exam: Gen: WD/WN, NAD, A&O x3, F, sitting up in bed HEENT: Normocephalic, atraumatic, conjunctivae moist, sclerae anicteric, mucous membranes moist. poor dentition noted. Lung: Clear to Auscultation bilaterally, no wheezes/rales/rhonchi Heart: Regular rate, regular rhythm, no murmurs, rubs, or gallops Abdomen: Soft, NT, ND +BS x 4 Extremities: No edema Skin: Warm, no rash, negative turgor. : +cobb with dark blood noted in catheter Results & Data Results & Data Vital Signs (Past 12 Hours) Vital Signs Temp Pulse Resp BP Pulse Ox O2 Del Method 01/20/25 07:30 Room Air 01/20/25 07:30 36.7 C 73 16 110/70 94 Room Air Laboratory Results I have independently reviewed and interpreted patient's admitting labs including CBC, BMP Medications Administered Current Inpatient Medications Acetaminophen (Acetaminophen 325 Mg Tab) 650 mg PO Q4H PRN PRN Reason: pain/fever Stop: 02/18/25 21:05 Last Admin: 01/20/25 04:42 Dose: 650 mg Apixaban (Apixaban 5 Mg Tablet) 5 mg PO [facility] Stop: 02/18/25 21:29 Last Admin: 01/20/25 07:40 Dose: 5 mg Atorvastatin Calcium (Atorvastatin 40 Mg Tab) 80 mg PO [facility] Stop: 02/18/25 21:14 Last Admin: 01/19/25 21:58 Dose: 80 mg Docusate Sodium (Docusate Sodium 100 Mg Cap) 200 mg PO [facility] Stop: 02/18/25 21:14 Last Admin: 01/19/25 21:54 Dose: Not Given Ferrous Sulfate (Ferrous Sulfate 325 Mg Tab) 325 mg PO Q2D@0900 [facility] Stop: 02/19/25 08:59 Last Admin: 01/20/25 07:39 Dose: 325 mg Ceftriaxone Sodium (Rocephin) 2,000 mg in 50 mls @ 100 mls/hr IV Q24H [facility] Stop: 01/30/25 15:59 Methenamine Hippurate (Methenamine Hippurate 1 Gm Tab) 1 gm PO BID [facility] Stop: 02/18/25 21:14 Last Admin: 01/20/25 07:39 Dose: 1 gm Metoprolol Succinate (Metoprolol Succ 25mg Ext Rel Tab) 25 mg PO [facility] Stop: 02/18/25 21:14 Last Admin: 01/20/25 07:40 Dose: 25 mg Mirtazapine (Mirtazapine Tab 15 Mg Tab) 22.5 mg PO BID [facility] Stop: 02/18/25 21:29 Last Admin: 01/20/25 07:39 Dose: 22.5 mg Montelukast Sodium (Montelukast Sodium 10 Mg Tablet) 10 mg PO QAM [facility] Stop: 02/19/25 08:59 Last Admin: 01/20/25 07:40 Dose: 10 mg Nystatin (Nystatin Cr 15 Gm Tube) 1 appln EXT BID [facility] Stop: 02/19/25 09:44 Last Admin: 01/20/25 10:05 Dose: 1 appln Oxybutynin Chloride (Oxybutynin Chloride 5 Mg Tab) 5 mg PO Q8H PRN PRN Reason: bladder spasms Stop: 02/18/25 21:05 Oxycodone HCl (Oxycodone Hcl Ir 5 Mg Tab (Immediate Release)) 5 mg PO Q4H PRN PRN Reason: pain Stop: 02/02/25 21:05 Last Admin: 01/20/25 00:23 Dose: 5 mg Saccharomyces Boulardii (Saccharomyces Boulardii 250 Mg Cap) 250 mg PO QAM [facility] Stop: 02/19/25 08:59 Last Admin: 01/20/25 07:41 Dose: 250 mg Sennosides (Senna 8.6 Mg Tab) 17.2 mg PO HS PRN PRN Reason: Constipation Stop: 02/18/25 21:05 Spironolactone (Spironolactone 25 Mg Tab) 25 mg PO DAILY [facility] Stop: 02/19/25 08:59 Last Admin: 01/20/25 07:40 Dose: 25 mg Tamsulosin HCl (Tamsulosin Hcl 0.4 Mg Cap) 0.4 mg PO HS [facility] Stop: 02/18/25 21:29 Last Admin: 01/19/25 21:58 Dose: 0.4 mg (2) Hematuria Hematuria type: gross Qualified Code(s): R31.0 - Gross hematuria
[2025-01-20] MEDS: PIPERACILLIN/TAZOBACTAM 4.5 GM/100 ML BAG IV ONE (14:49)
[2025-01-20] MEDS: oxyBUTYnin chloride 5 MG TAB PO PRN (14:55)
[2025-01-20 14:58] VITALS: O2SAT 96
[2025-01-20] MEDS ORDERED: cefTRIAXone SODIUM 2,000 MG/50 ML BAG IV SCH (16:00)
[2025-01-20] MEDS: PIPERACILLIN/TAZOBACTAM 4.5 GM/100 ML BAG IV SCH (20:32)
[2025-01-21 06:25] LABS: Basophils # (auto) 0.04 K/uL (0.00-0.20); Basophils % (auto) 0.5 %; Eosinophils # (auto) 0.42 K/uL (0.00-0.50); Eosinophils % (auto) 5.4 %; Hemoglobin 11.1 g/dl (12.0-16.0); Immature Granulocytes # (auto) 0.04 K/uL (0.01-0.20); Immature Granulocytes % (auto) 0.5 %; Lymphocytes # (auto) 2.85 K/uL (1.20-3.40); Lymphocytes % (auto) 36.4 %; Mean Corpuscular Hemoglobin 28.1 pg (25.0-34.0); Mean Corpuscular Hgb Conc 31.7 g/dL (32.0-36.0); Mean Corpuscular Volume 88.6 fL (80.0-100.0); Mean Platelet Volume 9.6 fL (9.4-12.4); Monocytes # (auto) 0.61 K/uL (0.11-0.59); Monocytes % (auto) 7.8 %; Neutrophils # (auto) 3.87 K/uL (1.40-6.50); Neutrophils % (auto) 49.4 %; Platelet Count 235 K/uL (130-400); RDW Coefficient of Variation 17.1 % (11.5-14.5); RDW Standard Deviation 54.7 fL (36.4-46.3); Red Blood Count 3.95 M/uL (4.20-5.40); White Blood Count 7.83 K/ul (4.8-10.8)
[2025-01-21 06:48] LABS: BUN Creatinine Ratio 27.2 (10-20); Calcium 9.2 mg/dl (8.6-10.3); Creatinine Clr Calc Pharmacy 54.2 ml/min; Potassium 4.5 mmol/L (3.5-5.1)
--- NOTE | 2025-01-21 07:23 | Hospitalist Progress Note ---
Date of Service January 21, 2025 Assessment & Plan (1) Complicated urinary tract infection: (2) Hematuria: (3) Chronic indwelling Cobb catheter: (4) Ureteral stent present: (5) PAF (paroxysmal atrial fibrillation): (6) History of DVT (deep vein thrombosis): (7) Hx pulmonary embolism: (8) Hypertension: Plan This is a 79 yr old F who has a significant PMH of T2DM, HTN, HLD, PAF, Asthma, GERD with esophagitis, morbid obesity, Recurrent UTI, indwelling foely catheter, b/l ureteral stent placement, nephrolithiasis, Hx of DVT/PE, Hx of uterine cancer and depression who presents to ED 2/2 Hematuria. PT has indwelling cobb and follows with [facility] Patient recently admitted to [facility] 12/17-12/25 for sepsis secondary to complicated UTI. Patient underwent left ureteral stent exchange and right ureteral stent placement on 12/21. Blood culture grew Staphylococcus capitis, Staphylococcus epidermidis, E. coli, and bacteroides fragilis. Patient was discharged on a 10-day course of Bactrim. Patient seen in the ED on 01/11 for recurrent hematuria. Discharged on Bactrim for suspected UTI. Pt denies experiencing fevers at facility, but does admit to L sided flank pain. She reports dark drown/maroon blood in cath for past 3-4 weeks. #Hematuria #Possible complicated UTI, catheter associated, POA #B/L Ureteral Stents in place #Known nephrolithiasis admitted to [facility] Urine equivocal in ED and started on IV Ceftraixone, await culture Seen and evaluated by urology who feels her quantity of bleeding is as expected and appropriate given b/l indwelling ureteral stents Cobb is draining appropriately On oxybutnin for bladder spasm, will consider myrbetriq 25mg if pt becomes more symptomatic Urology does not plan to intervene at this time and feel discharge is reasonable given no signs of systemic illness It should be noted that she is going to have a level of hematuria, can consider flushing prn #PAF #Hx of DVT/PE continue eliquis, metoprolol #T2DM a1c 5.7, diet controlled #DVT ppx: Eliquis DNR/DNI PCP: Brittanietershelby Dispo: admitted to [facility], expect can discharge back to [facility] tomorrow Pt was seen and examined in collaboration with Dr. Gamino, please see addendum I spent a total of 51 minutes coordinating, documenting and providing care for this patient excluding time spent in the performance of separately billed services or time spent by another provider/QHP. Admission and Anticipated Discharge Date Admission Date: January 19, 2025 Physical Exam Physical Exam: Gen: WD/WN, NAD, A&O x3, F, sitting up in bed HEENT: Normocephalic, atraumatic, conjunctivae moist, sclerae anicteric, mucous membranes moist. poor dentition noted. Lung: Clear to Auscultation bilaterally, no wheezes/rales/rhonchi Heart: Regular rate, regular rhythm, no murmurs, rubs, or gallops Abdomen: Soft, NT, ND +BS x 4 Extremities: No edema Skin: Warm, no rash, negative turgor. : +cobb with dark blood noted in catheter Results & Data Results & Data Vital Signs (Past 12 Hours) Vital Signs Temp Pulse Resp BP Pulse Ox O2 Del Method 01/20/25 20:28 36.6 C 72 18 109/74 96 Room Air (2) Hematuria Hematuria type: gross Qualified Code(s): R31.0 - Gross hematuria
[2025-01-21 07:43] VITALS: BP 114/73; RESP 17; TEMP 98.1
--- NOTE | 2025-01-21 10:53 | Discharge Summary ---
Discharge Summary Date of Service January 21, 2025 Principal Dx & Hospital Course #1 = Principal Diagnosis Notes For Next Care Provider It is expected to have some level of hematuria given her b/l ureteral stents. Dark/maroon blood is consistent with old blood. If she has significant Bright red blood that would be concerning. Nursing can flush her cath prn. She needs to follow up with urology for definitive stone treatment She tested positive for a pseudomonas and enterococcus UTI complicated by urinary catheter. She is being discharged on levaquin and amoxicillin. She is to remain on eliquis. Her hgb was remained stable. Recommend ensure pt has close urology follow up. Medication Changes From Visit New Medications: 1. Levaquin 750mg by mouth once daily for additional 7 days. Next dose due evening of 01/21/25. This is an antibiotic to treat your pseudomonas UTI. 2. Amoxicillin 875mg by mouth twice daily for additional 7 days. Next dose due evening of 01/21/25. This is an antibiotic to treat your enterococcus UTI. 3. Florastor 250mg by mouth daily for 7 days. Next dose due a.m. of 01/22/25. STOP taking bactrim Admission HPI Per Admitting Provider 79 year old female with PMH paroxysmal atrial fibrillation anticoagulated on Coumadin, HTN, GERD, bilateral hydronephrosis s/p ureteral stents, urinary retention with chronic Cobb, recurrent UTI, history of DVT and pulmonary embolism, history of uterine cancer, and other problems listed below who presents for evaluation of hematuria. Patient recently admitted to [facility] 12/17- 12/25 for sepsis secondary to complicated UTI. Patient underwent left ureteral stent exchange and right ureteral stent placement on 12/21. Blood culture grew Staphylococcus capitis, Staphylococcus epidermidis, E. coli, and bacteroides fragilis. Patient was discharged on a 10-day course of Bactrim. Patient seen in the ED on 01/11 for recurrent hematuria. Discharged on Bactrim for suspected UTI. Patient was seen by home health today and noted to have worsening hematuria. Cobb catheter was exchanged and patient was referred back to the ED for reevaluation. Patient denies fevers and chills. No abdominal pain, nausea, vomiting, diarrhea. Denies chest pain and shortness of breath. No lightheadedness or dizziness. Patient is chronically bedbound. In the ED, UA is suggestive of UTI. CT ABD/pelvis shows that bilateral ureteral stents are in place, no signs of infection or hydronephrosis. Patient was given IVF and IV ceftriaxone. Admission Exam Per Admitting Provider On exam, General: Not in distress, Obese Eyes: PERRL, conjunctivae normal, not pale, anicteric sclerae, EOM intact bilaterally ENMT: External ear and nose normal, oropharynx normal Respiratory: Normal respiratory effort, no respiratory distress, lungs clear to auscultation, no crackles and no wheezes Cardiovascular: Irregular Gastrointestinal (Abdomen): Abdomen is not distended, soft, non-tender to palpation, no guarding, no palpable hepatosplenomegaly, normal bowel sounds Genitourinary:Cobb in situ, with dark urine in bag. Pinkish urine in catheter Neurologic: Alert and oriented x 3, No focal weakness, sensation grossly intact Psychiatric: Euthymic affect Discharge Exam Gen: WD/WN, NAD, A&O x3, F, sitting up in bed HEENT: Normocephalic, atraumatic, conjunctivae moist, sclerae anicteric, mucous membranes moist. poor dentition noted. Lung: Clear to Auscultation bilaterally, no wheezes/rales/rhonchi Heart: Regular rate, regular rhythm, no murmurs, rubs, or gallops Abdomen: Soft, NT, ND +BS x 4 Extremities: No edema Skin: Warm, no rash, negative turgor. : +cobb with farheen urine Updated Medication List Medication Instructions Recorded Confirmed Type acetaminophen 500 mg tablet 500 mg PO Q6H PRN Fever Or Pain 06/28/23 01/19/25 History (Tylenol Extra Strength) apixaban 5 mg tablet (Eliquis) 5 mg PO [facility] 06/28/23 01/19/25 History atorvastatin 80 mg tablet 80 mg PO HS 06/28/23 01/19/25 History docusate sodium 100 mg capsule 200 mg PO HS 09/14/23 01/19/25 History (Colace) ferrous sulfate 325 mg (65 mg 325 mg PO Q OTHER DAY 04/03/24 01/19/25 History iron) tablet,delayed release montelukast 10 mg tablet 10 mg PO QAM 04/03/24 01/19/25 History tamsulosin 0.4 mg capsule 0.4 mg PO HS #30 caps 06/14/24 01/19/25 Rx ascorbic acid (vitamin C) 500 mg 500 mg PO BID 07/10/24 01/19/25 History tablet (Vitamin C) oxybutynin chloride 5 mg tablet 5 mg PO Q8H PRN bladder spasms #30 07/17/24 01/19/25 Rx tabs Saccharomyces boulardii 250 mg 250 mg PO QAM 08/14/24 01/19/25 History capsule (Florastor) cranberry extract 500 mg capsule 500 mg PO QAM 08/14/24 01/19/25 History (Cranberry Concentrate) diclofenac sodium 1 % topical gel 2 g EXT QID Pain 08/14/24 01/19/25 History (Voltaren Arthritis Pain) zinc oxide 20 % topical ointment 1 applic topical BID 08/14/24 01/19/25 History water for irrigation, sterile 1 irrig irrigation DAILY PRN 12/08/24 01/19/25 Rx (Curity Sterile Water irrigation catheter occlusion #6,000 mL solution) mirtazapine 15 mg tablet 22.5 mg PO BID 12/17/24 01/19/25 History sennosides 8.6 mg tablet (senna) 17.2 mg PO HS PRN Constipation 12/17/24 01/19/25 History metoprolol succinate 25 mg 25 mg PO [facility] #60 tabs 12/25/24 01/19/25 Rx tablet,extended release 24 hr miconazole nitrate 2 % topical 1 applic EXT PRN PRN rash #85 grams 12/25/24 01/19/25 Rx powder (Desenex) oxycodone 5 mg tablet 5 mg PO Q4H PRN pain #10 tabs 12/25/24 01/19/25 Rx methenamine hippurate 1 gram tablet 1 g PO BID 01/19/25 01/19/25 History spironolactone 25 mg tablet 25 mg PO DAILY 01/19/25 01/19/25 History Saccharomyces boulardii 250 mg 250 mg PO DAILY #7 caps 01/21/25 Rx capsule (Florastor) amoxicillin 875 mg tablet 875 mg PO BID #14 tabs 01/21/25 Rx levofloxacin 750 mg tablet 750 mg PO DAILY 7 days #7 tabs 01/21/25 Rx Hospital Stay Data Consultations 01/19/25 17:58 ED Decision to Admit Stat 01/19/25 21:06 Consult Urology Routine Assessment & Plan (1) Recurrent UTI: (2) Complicated urinary tract infection: (3) Gross hematuria: Plan Gross hematuria; history of UTIs I would describe her quantity of bleeding as expected and appropriate given bilateral indwelling ureteral stents and an indwelling Cobb catheter He does appear to be draining appropriately, flush as needed Her symptoms are relatively modest, she likely has some level of bladder spasmshe is on oxybutynin If felt that it would be appropriate to add additional treatment, would consider adding Myrbetriq 25 mg She does have a history of Gina UTI She has an indwelling Cobb catheter so would not be surprising if she grows some level of bacteria or even yeast Right now, she does not show systemic signs of illness so I think would actually be quite reasonable to discharge her back to her [facility] with appropriate instructions of the staff that we would expect to see some level of bleeding within her urine as long as she has indwelling stents in the catheter If it is decided to wait until she has a fully finalized culture, I think that is reasonable as welleven if she has Gina we will not intervene and change her stents or catheter right now Diagnostic Imagining Performed Abdomen/Pelvis CT 01/19/25 14:59 Clinical History: Gross hematuria Technique: Axial computed tomography images were obtained of the abdomen and pelvis after the administration of intravenous contrast. Comparison is made to the prior CT dated 12/17/2024. Findings: The liver is overall of normal size, attenuation, and contour with no sign of cirrhosis or significant fatty infiltration. No liver mass lesion is seen. The portal vein is patent. The gallbladder has been removed. No bile duct dilatation is noted. The spleen is of normal size. No focal splenic lesion is evident. The pancreas appears normal with no sign of acute or chronic pancreatitis and no mass lesion noted. The pancreatic duct is of normal caliber. There is a 2.3 x 1.3 cm unchanged right adrenal nodule, likely a benign adenoma. The left adrenal gland appears normal There is a new right ureteral stent. There is an unchanged left ureteral stent. There is a 1.2 cm calculus in the right renal pelvis. There are multiple right renal calculi, measuring up to 6 mm. There is a 5 mm calculus in the mid left kidney. There is a 3 cm left renal cyst. There is mild prominence of the right renal collecting system without overt hydronephrosis. There is left renal cortical atrophy. The aorta is of normal caliber. No abdominal adenopathy is seen. The stomach appears normal. There is no sign of small bowel obstruction. There is diverticulosis without evidence of diverticulitis. There is constipation. No free intraperitoneal fluid or air is identified. No distal ureteral or bladder calculi are seen. The bladder is decompressed. The iliac arteries are of normal caliber. No pelvic adenopathy is noted. There is mild left lower lobe atelectasis. There is coronary atherosclerosis. Lumbar scoliosis and degenerative disc disease is seen. There are unchanged compression fractures of the L1, L2, L3, and L5 vertebral bodies. There is internal fixation of the left femur. There is bilateral hip osteoarthritis. Impression: 1. New right ureteral stent and unchanged left ureteral stent 2. Bilateral renal calculi, including a 1.2 cm calculus in the right renal pelvis 3. Mild prominence of the right renal collecting system without overt hydronephrosis 4. Unchanged right adrenal adenoma 5. Left renal cyst 6. Diverticulosis without evidence of diverticulitis 7. Unchanged vertebral compression fractures ACT 112: Positive. There are findings on this exam that require communication between the performing entity and the patient following Patient Test Result Information Act ([place] ACT 112) guidelines. Electronically signed by Josue Dill 01-19-2025 5:12 PM Pending Results Patient Have Any Pending Studies at Discharge: No Discharge Instructions Given to Patient (Per Discharging Provider) MEDICATION CHANGES: New Medications: 1. Levaquin 750mg by mouth once daily for additional 7 days. Next dose due evening of 01/21/25. This is an antibiotic to treat your pseudomonas UTI. 2. Amoxicillin 875mg by mouth twice daily for additional 7 days. Next dose due evening of 01/21/25. This is an antibiotic to treat your enterococcus UTI. 3. Florastor 250mg by mouth daily for 7 days. Next dose due a.m. of 01/22/25. STOP taking Bactrim. SUMMARY OF TEST RESULTS: You were admitted to hospital due to hematuria. You were seen and evaluated by urology who felt this is to be expected given the presence of your stents in place. If you see blood in cobb cath it is not of concern unless you start to see bright read blood. A urinalysis was obtained and it did confirm you have a urinary tract infection. You are being discharged on a course of antibiotics to treat this. It is recommended that nursing flush your cobb cath as needed for hematuria or if not draining appropriately. PENDING TEST RESULTS: None RECOMMENDATIONS FOR FOLLOW-UP: Please follow up with your primary care provider as scheduled on 01/22/25 at 10:00 a.m. Please complete antibiotics as prescribed. It is expected to see some level of bleeding in your catheter with your stents in place. It is recommended the staff flush your catheter as needed for bleeding. Please follow up with urology as scheduled. OTHER INSTRUCTIONS: Seek medical attention if you have: * temperature above 101 * chest pain or trouble breathing * abdominal pain, nausea, vomiting * diarrhea, dark stools or bloody stools * any unanswered questions or concerns Call 911 if symptoms are severe. Please take good care of yourself. It has been a pleasure taking care of you. Please take care of yourself. If you have any questions regarding your recent hospitalization please contact [facility] and request Sarah Velasquez @ [phone]. Total Time Total Time Spent Total Time Spent (In Minutes): 45 minutes Supervising Physician Co-Signing Physician Notes I have reviewed the advanced practitioner's documentation, and I agree with, and take responsibility for the plan of care I spent a total of 20 minutes coordinating, documenting, and providing care for this patient excluding time spent in the performance of separately billed services. All of the aforementioned completed while collaborating with the assigned advanced practitioner for a full treatment plan
[2025-01-21 10:55] VITALS: PULSE 84
== END 2025-01-21 12:20 | disposition home or self-care (01) | DRG 700 ==
LOC: ED 14:23 → SUATTDRO 18:14 → 3E 18:14

== ENCOUNTER 2025-06-11 13:23 | Inpatient (IN) ==
[~2025-06-11 13:23] MED LIST changes: -AMLO-110 PO; -ASPCH81 PO; -ASTN NAE; -ATEN-173 PO; -CRAN1CAP15 PO; +DICLOFENAC SOD 1% GEL 100 GM TUBE EXT PRN; -DOCU100T7 PO; -HYDC25 PO; -LANS30CA12 PO; -LEVA1.25 INH; -MELO7.5T5 PO; -MULTCAP42 PO; -NYST100098 TOP; -NYSTCRE11 TOP; -PENT400T PO; -TRAM-10 PO; -TRIA1SPR2 NAE
[2025-06-11] MEDS: ONDANSETRON INJ 2 MG/ML 2 ML VIAL ONE (13:59)
[2025-06-11 14:12] LABS: Hematocrit (blood only) 39.3 % (37.0-47.0); Hemoglobin 11.7 g/dl (12.0-16.0); Immature Granulocytes # (auto) 0.07 K/uL (0.01-0.20); Immature Granulocytes % (auto) 0.5 %; Mean Corpuscular Hemoglobin 26.1 pg (25.0-34.0); Mean Corpuscular Volume 87.7 fL (80.0-100.0); Platelet Count 345 K/uL (130-400); RDW Standard Deviation 52.1 fL (36.4-46.3); Red Blood Count 4.48 M/uL (4.20-5.40); White Blood Count 15.28 K/ul (4.8-10.8)
--- NOTE | 2025-06-11 14:12 | XRay Report ---
XR chest 1V portable CLINICAL HISTORY: Sepsis COMPARISON STUDY: 04/19/2025 FINDINGS: Stable cardiomegaly with mild pulmonary vascular congestion. Stable blunting of the left co stophrenic angle. Otherwise the lungs remain aerated. Stable old fracture proximal right humerus. IMPRESSION: Stable exam. ACT 112: Negative or not required by law. Electronically signed by: Vincenzo Herrera M.D. 06/11/2025 2:10 PM
[2025-06-11] MEDS: SODIUM CHLORIDE 0.9% 500 ML IV ONE ×2 (14:19→17:32)
[2025-06-11] MEDS: FAMOTIDINE 20MG IV PUSH 20 MG/5 ML SYR IV STA (14:19)
[2025-06-11] MEDS: ACETAMINOPHEN 1,000 MG/100 ML VIAL IV STA (14:20)
[2025-06-11 14:30] LABS: Alanine Aminotransferase 7 U/L (7-52); Albumin Level 2.9 gm/dl (3.4-5.0); Alkaline Phosphatase 118 U/L (34-104); Anion Gap 9 (3-11); Bilirubin,Total 0.5 mg/dl (0.2-1.0); Blood Urea Nitrogen 9 mg/dl (6-23); Calcium 8.9 mg/dl (8.6-10.3); Carbon Dioxide 30 mmol/L (21-32); Chloride 102 mmol/L (98-107); Glucose 127 mg/dl (70-99(Fasting)); Magnesium 1.7 mg/dl (1.7-2.4); Potassium 3.6 mmol/L (3.5-5.1); Sodium 141 mmol/L (136-145); Total Protein 6.7 gm/dl (6.0-8.3)
[2025-06-11 14:37] LABS: INR 1.2 (0.9-1.1); Prothrombin Time 13.0 Seconds (9.0-12.0)
[2025-06-11 14:53] LABS: Thyroid Stimulating Hormone 0.928 uIu/ml (0.300-4.500)
--- NOTE | 2025-06-11 15:07 | Emergency Department Note ---
Impression & Plan Catheter-associated urinary tract infection, Nausea & vomiting, SIRS (systemic inflammatory response syndrome), Paroxysmal atrial fibrillation ED Provider Note NAME: NAKIA CESPEDES AGE: 79 SEX: F : 1945 ARRIVES VIA: Ambulance INFORMANT: Patient ED PROVIDER(S): Antwon Brooks MD CHIEF COMPLAINT: Fever, nausea and vomiting PLAN: Disposition: Admit MEDICAL DECISION MAKING: the patient is a pleasant 79-year-old woman with a past medical history of Complicated urinary tract infection/catheter associated urinary tract infection with history of E. coli septicemia in the setting of having chronic bilateral indwelling ureteral stents for bilateral hydronephrosis, paroxysmal atrial fibrillation on Eliquis, hypertension, hyperlipidemia who presents to the emergency department from her residential facility for feverishness with nausea and vomiting that began today. Patient denies any cough or congestion. She denies chest pain or shortness of breath. On my evaluation the patient is uncomfortable but no acute distress, febrile to 37.7 with heart rate in the 130s-140s in atrial fibrillation and vital signs otherwise stable. She appears euvolemic to slightly hypervolemic. Lungs are clear. Abdomen is nontender. EKG demonstrates probable a flutter with RVR without overt acute ischemia. CXR negative for acute cardiopulmonary process per my personal preliminary review/interpretation. WBC 15.2 K with neutrophilia but no left shift, nonspecific. HCT and platelets within normal limits. Chemistry without metabolic acidosis. Initial lactic acid 2.9 with repeat 1.3, within normal limits. Electrolytes unremarkable. LFTs unremarkable. High-sensitivity troponin 5.8, within normal limits. Procalcitonin is not elevated. TSH with normal limits. Patient's Cobb catheter was exchanged and UA eventually obtained and did demonstrate suggestion of infection with 3+ bacteria, WBCs. Nitrite were negative. Respiratory BioFire was negative. CT of the pelvis was obtained and demonstrates bilateral ureteral stents in place. Mild right and mild left hydronephrosis mildly decreased compared to April. Note is made of small amount of gas within the right renal collecting system which is nonspecific and may reflect gas-forming organism versus related to the patient's indwelling ureteral stent. No gas is noted within the renal parenchyma. Nonspecific bilateral urothelial thickening is described. Given the patient's history of septicemia in the setting of her recurrent complicated urinary tract infection patient does agree plan for admission for further management. Blood Cultures Were Obtained. Per review of prior urine cultures we will proceed with treatment with Zosyn at this time. 1 L normal saline administered with 30 cc/KG IVF deferred out of caution for overload in the setting of patient's history of atrial fibrillation. Of note, heart rate did improve with initial treatment and defervescence. Case was discussed with Dr. Landon, [facility] hospitalist, who will evaluate the patient for admission. Further management per admitting team. Triage Nursing notes reviewed and agree them. Prior/external medical records reviewed Vital Signs: reviewed Differential diagnosis: Viral syndrome, otitis, pharyngitis, pneumonia, influenza, meningitis, urinary tract infection, sepsis, bacteremia, as well as other pathologies. ER treatment provided: See below. Diagnostics interpreted by me: ECG: Probable atrial flutter with RVR, 122 bpm, no overt ST elevation or depression, QTc 390, QRS 90. Cardiac Monitoring: An order for continuous cardiac monitoring was placed and demonstrated Probable atrial flutter with RVR, 122 bpm Laboratory studies: See below Imaging studies: See below Consultation(s): Dr. Landon [facility] hospitalist HPI: Per MDM. ROS: See above HPI for pertinent positives & negatives. A total of 10 systems reviewed and were otherwise negative. VITALS:See Below PHYSICAL EXAMINATION: GENERAL: Awake, alert, acute on chronically ill-appearing, in no distress, BMI 39.6 HENT: Normocephalic, atraumatic. Oropharynx unremarkable. EYES: Normal conjunctiva. Sclera non-icteric. NECK: Supple. No nuchal rigidity. FROM. No JVD. RESPIRATORY: Clear to auscultation. CARDIAC: Tachycardic rate, irregular rhythm. Extremities warm and well perfused. Pulses equal. ABDOMEN: Soft, non-distended. No tenderness to palpation. No rebound or guarding. No masses. MUSCULOSKELETAL: Chest examination reveals no tenderness. The back is symmetrical on inspection without obvious abnormality. There is no CVA tenderness to palpation. No joint edema. LOWER EXTREMITIES: Calves are equal size bilaterally and non-tender. No edema. No discoloration. NEURO: Normal sensorium. No sensory or motor deficits noted. SKIN: No rash or jaundice noted. Antwon Brooks MD Past Med/Surg History Problem List (Updated 06/12/25 @ 00:49 by Antwon Brooks MD) Paroxysmal atrial fibrillation (Acute) SIRS (systemic inflammatory response syndrome) (Acute) Nausea & vomiting (Acute) Depression Tinea corporis Hypoalbuminemia (Acute) Catheter-associated urinary tract infection (Acute) Enterococcal bacteremia Urinary retention Morbid obesity Atrial fibrillation (Acute) Deep vein thrombosis Hyperlipidemia Asthma Osteoarthritis of knees, bilateral Chronic GERD Medical History E. coli septicemia Hydronephrosis Nephrolithiasis Recurrent UTI Chronic indwelling Cobb catheter Ureteral stent present Hypertension History of DVT (deep vein thrombosis) PAF (paroxysmal atrial fibrillation) Obesity Pulmonary hypertension moderate per 06/2023 ECHO (PASP 47mmHg) Skin breakdown sacral skin breakdown per 06/2024 hospitalization; pt to follow with wound care at [facility] 2 or more hospital admissions in past 6 months admitted [facility] 06/08-06/15/24: dx: complicated UTI, chronic indwelling cobb catheter, calculus of L kidney, b/l hydronephrosis. admitted [facility] 06/26- 06/30/24: dx: infection associated with indwelling uteretal stent, hematuria, acute L flank pain: pt D/C on Cefdinir (pt also noted to have sacral skin area breakdown during admission and pt to f/u with wound care at [facility]) History of anemia History of posterior vitreous detachment B/L History of asthma "Well controlled" Chronic indwelling Cobb catheter Hydronephrosis of left kidney Diabetes mellitus, type II Diet controlled Overactive bladder HTN (hypertension) GERD (gastroesophageal reflux disease) Hyperlipidemia Hx of vertigo Hx of cancer of uterus 2013- radiation Hx pulmonary embolism Remote hx years ago In setting of prolonged sitting/immobility during a previous hospitalization per records Urinary retention Cobb cath in place History of home oxygen therapy not currently prison resident Resides at [facility] Nontoxic thyroid nodule Hx: UTI (urinary tract infection) Recurrent Hx of sepsis Lipodermatosclerosis Chronic bronchitis 'Bronchial asthma' Acquired lymphedema "Stomach" Gets therapy/massage to manage > was complication after radiation treatment per previous PAT RN notation IBS (irritable bowel syndrome) Surgical History History of anesthesia reaction Awareness with D&C and colonoscopy History of open reduction and internal fixation (ORIF) procedure (06/2023) left femur fx Hx of cystoscopy Multiple; most recent: 04/13/24: MAC without issue History of cataract surgery (2020) R/L History of dilatation and curettage History of esophagogastroduodenoscopy (EGD) History of colonoscopy History of bilateral tubal ligation History of cholecystectomy Hx of hernia repair (12/2017) Ventral hernia with mesh History of tooth extraction History of cardiac cath (02/18/11) @ [facility]--No stents Family History Other No family history of adverse response to anesthesia Social History Smoking Status: Never smoker Second Hand Exposure: No; Do You Dip or Chew Tobacco: No; Hx Alcohol Use: No Hx Substance Use: No Preferred Language: Chinese Communication Ability: Effective Communication Ability Comment: alert and oriented x3 - of sound mind to sign consent Visual Impairment: No Limitations Independent Consultant Required: No Beliefs That Will Affect Care: None Current Living Situation: Personal Care Facility Current Living Situation Comment: [facility] Feels Safe at Home: Yes Assistive Devices: Hospital Bed Allergies Allergies Allergy/AdvReac Type Severity Reaction Status Date / Time doxycycline Allergy Intermediate Swelling Verified 04/20/25 12:25 tetracycline Allergy Mild Eye Verified 04/20/25 12:25 swelling codeine Allergy Unknown Unknown - Verified 04/20/25 12:25 On file w/ [facility] of [facility] Inhibitors AdvReac Intermediate Cough Verified 04/20/25 12:25 Sulfa (Sulfonamide AdvReac Mild Gastrointestinal Verified 04/20/25 12:25 Antibiotics) Upset Home Meds Home Medications Medication Instructions Recorded Confirmed acetaminophen 500 mg tablet 500 mg PO Q6H PRN Fever Or Pain 06/28/23 06/11/25 (Tylenol Extra Strength) apixaban 5 mg tablet (Eliquis) 5 mg PO AMHS 06/28/23 06/11/25 atorvastatin 80 mg tablet 80 mg PO HS 06/28/23 06/11/25 docusate sodium 100 mg capsule 200 mg PO HS 09/14/23 06/11/25 (Colace) ferrous sulfate 325 mg (65 mg 325 mg PO Q OTHER DAY 04/03/24 06/11/25 iron) tablet,delayed release ascorbic acid (vitamin C) 500 mg 500 mg PO BID 07/10/24 06/11/25 tablet (Vitamin C) Saccharomyces boulardii 250 mg 250 mg PO QAM 08/14/24 06/11/25 capsule (Florastor) cranberry extract 500 mg capsule 500 mg PO QAM 08/14/24 06/11/25 (Cranberry Concentrate) diclofenac sodium 1 % topical gel 2 g EXT QID Pain 08/14/24 06/11/25 (Voltaren Arthritis Pain) zinc oxide 20 % topical ointment 1 applic topical BID 08/14/24 06/11/25 sennosides 8.6 mg tablet (senna) 17.2 mg PO HS PRN Constipation 12/17/24 06/11/25 methenamine hippurate 1 gram tablet 1 g PO BID 01/19/25 06/11/25 spironolactone 25 mg tablet 25 mg PO QAM 01/19/25 06/11/25 ergocalciferol (vitamin D2) 1,250 0 mcg PO WK 04/19/25 06/11/25 mcg (50,000 unit) capsule (Vitamin D2) folic acid 1 mg tablet 1 mg PO QAM 04/19/25 06/11/25 miconazole nitrate 2 % topical 1 applic EXT DAILY PRN rash 04/19/25 06/11/25 powder (Desenex) mirtazapine 7.5 mg tablet 7.5 mg PO BID 04/19/25 06/11/25 Previous Rx's Medication Instructions Recorded tamsulosin 0.4 mg capsule 0.4 mg PO HS #30 caps 06/14/24 oxybutynin chloride 5 mg tablet 5 mg PO Q8H PRN bladder spasms #30 07/17/24 tabs water for irrigation, sterile 1 irrig irrigation DAILY PRN 12/08/24 (Curity Sterile Water irrigation catheter occlusion #6,000 mL solution) metoprolol succinate 25 mg 25 mg PO AMHS #60 tabs 12/25/24 tablet,extended release 24 hr cyanocobalamin (vitamin B-12) 500 1,000 mcg (2 x 500 mcg) PO QAM #60 04/25/25 mcg tablet tabs meclizine 25 mg tablet 25 mg PO BID #60 tabs 04/25/25 mirtazapine 15 mg tablet 15 mg PO BID #30 tabs 04/25/25 oxycodone 5 mg tablet 5 mg PO Q4H PRN pain #10 tabs 04/25/25 vibegron 75 mg tablet (Gemtesa) 75 mg PO DAILY #30 tabs 05/22/25 Results & Data (ED) Vital Signs Vital Signs - 24 hr 06/11/25 13:50 06/11/25 14:04 06/11/25 14:04 Temperature 37.7 C H 36.8 C Temperature Source Oral Oral Pulse Rate 122 H 116 H Pulse Rate [Apical] 116 H Pulse Rhythm Regular Regular Pulse Rhythm [Apical] Regular Respiratory Rate 26 H 26 H 26 H Respiratory Effort / Characteristics Non-Labored Spontaneous Non-Labored Spontaneous Respiratory Depth Normal Normal Respiratory Pattern Regular Regular Blood Pressure 127/93 Blood Pressure [Right Arm] 111/47 L Blood Pressure Mean 104 Blood Pressure Mean [Right Arm] 68 Blood Pressure Position Semi-fowlers Blood Pressure Position [Right Arm] Semi-fowlers Pulse Oximetry 91 91 91 Oxygen Delivery Method Room Air Room Air Room Air Sepsis Recent Fever Within 48 Hours Yes Sepsis New/Unexplained Change in Mental Status No Sepsis Action Taken by Nursing Physician Notified 06/11/25 15:02 06/11/25 15:15 06/11/25 16:00 Temperature Temperature Source Pulse Rate 98 H 98 H 99 H Pulse Rate [Apical] Pulse Rhythm Pulse Rhythm [Apical] Respiratory Rate 20 20 21 Respiratory Effort / Characteristics Respiratory Depth Respiratory Pattern Blood Pressure 110/58 L 103/52 L 121/55 L Blood Pressure [Right Arm] Blood Pressure Mean 70 71 95 Blood Pressure Mean [Right Arm] Blood Pressure Position Blood Pressure Position [Right Arm] Pulse Oximetry 95 96 95 Oxygen Delivery Method Room Air Room Air Room Air Sepsis Recent Fever Within 48 Hours Sepsis New/Unexplained Change in Mental Status Sepsis Action Taken by Nursing 06/11/25 16:15 06/11/25 16:45 06/11/25 17:15 Temperature Temperature Source Pulse Rate 85 85 90 Pulse Rate [Apical] Pulse Rhythm Pulse Rhythm [Apical] Respiratory Rate 23 20 19 Respiratory Effort / Characteristics Respiratory Depth Respiratory Pattern Blood Pressure 107/64 97/53 L 125/79 Blood Pressure [Right Arm] Blood Pressure Mean 81 73 93 Blood Pressure Mean [Right Arm] Blood Pressure Position Blood Pressure Position [Right Arm] Pulse Oximetry 95 95 95 Oxygen Delivery Method Room Air Room Air Room Air Sepsis Recent Fever Within 48 Hours Sepsis New/Unexplained Change in Mental Status Sepsis Action Taken by Nursing Laboratory Data Attestation: I reviewed the patient's lab results. 06/11/25 13:50 06/11/25 13:50 Lab Results 06/11/25 06/11/25 06/11/25 Range/Units 13:50 15:54 15:58 WBC 15.28 H (4.8-10.8) K/ul RBC 4.48 (4.20-5.40) M/uL Hgb 11.7 L (12.0-16.0) g/dl Hct 39.3 (37.0-47.0) % MCV 87.7 (80.0-100.0) fL MCH 26.1 (25.0-34.0) pg MCHC 29.8 L (32.0-36.0) g/dL RDW Std Deviation 52.1 H (36.4-46.3) fL RDW Coeff of Rodolfo 16.2 H (11.5-14.5) % Plt Count 345 (130-400) K/uL MPV 9.3 L (9.4-12.4) fL Immature Gran % (Auto) 0.5 % Neut % (Auto) 85.2 % Lymph % (Auto) 9.2 % [place] % (Auto) 4.4 % Eos % (Auto) 0.5 % Baso % (Auto) 0.2 % Neut # (Auto) 13.03 H (1.40-6.50) K/uL Lymph # (Auto) 1.40 (1.20-3.40) K/uL [place] # (Auto) 0.67 H (0.11-0.59) K/uL Eos # (Auto) 0.08 (0.00-0.50) K/uL Baso # (Auto) 0.03 (0.00-0.20) K/uL Immature Gran # (Auto) 0.07 (0.01-0.20) K/uL PT 13.0 H (9.0-12.0) Seconds INR 1.2 H (0.9-1.1) Sodium 141 (136-145) mmol/L Potassium 3.6 (3.5-5.1) mmol/L Chloride 102 (98-107) mmol/L Carbon Dioxide 30 (21-32) mmol/L Anion Gap 9 (3-11) BUN 9 (6-23) mg/dl Creatinine 0.58 L (0.6-1.2) mg/dl Est Cr Clr Drug Dosing Not Reportable eGFR 92.57 BUN/Creatinine Ratio 15.5 (10-20) Glucose 127 H (70-99(Fasting)) mg/dl Lactate 2.9 H* 1.3 (0.4-2.0) mmol/L Calcium 8.9 (8.6-10.3) mg/dl Phosphorus 2.9 (2.5-4.9) mg/dl Magnesium 1.7 (1.7-2.4) mg/dl Total Bilirubin 0.5 (0.2-1.0) mg/dl Direct Bilirubin 0.2 (0-0.2) mg/dl AST 9 L (13-39) U/L ALT 7 (7-52) U/L Alkaline Phosphatase 118 H (34-104) U/L Troponin I High Sens 5.8 (0-14) pg/ml Total Protein 6.7 (6.0-8.3) gm/dl Albumin 2.9 L (3.4-5.0) gm/dl Procalcitonin 0.09 (0-0.5) ng/ml TSH 0.928 (0.300-4.500) uIu/ml Urine Color Urine Appearance (Clear) Urine pH (4.5-7.5) Ur Specific Kake (1.000-1.030) Urine Protein (Negative) Urine Glucose (UA) (Negative) Urine Ketones (Negative) Urine Blood (Negative) Urine Nitrite (Negative) Urine Bilirubin (Negative) Urine Urobilinogen (Negative) Ur Leukocyte Esterase (Negative) Urine RBC (0-2) /hpf Urine WBC (0-5) /hpf Ur Epithelial Cells (0-2) /hpf Urine Bacteria (None Seen) Urine Comment Adenovirus (PCR) Not Detected (NotDetected) B. pertussis DNA (PCR) Not Detected (NotDetected) B.parapertussis DNA PCR Not Detected (NotDetected) C. pneumoniae DNA (PCR) Not Detected (NotDetected) Coronavirus OC43 (PCR) Not Detected (NotDetected) Coronavirus HKU1 (PCR) Not Detected (NotDetected) Coronavirus 229E (PCR) Not Detected (NotDetected) SARS-CoV-2 (PCR) Not Detected (NotDetected) Coronavirus NL63 (PCR) Not Detected (NotDetected) Human Metapneumovir PCR Not Detected (NotDetected) Influenza Type A (PCR) Not Detected (NotDetected) Influenza Type B (PCR) Not Detected (NotDetected) M. pneumoniae (PCR) Not Detected (NotDetected) Parainfluenza 1 (PCR) Not Detected (NotDetected) Parainfluenza 2 (PCR) Not Detected (NotDetected) Parainfluenza 3 (PCR) Not Detected (NotDetected) Parainfluenza 4 (PCR) Not Detected (NotDetected) RSV (PCR) Not Detected (NotDetected) Entero/Rhino (PCR) Not Detected (NotDetected) 06/11/25 Range/Units 17:14 WBC (4.8-10.8) K/ul RBC (4.20-5.40) M/uL Hgb (12.0-16.0) g/dl Hct (37.0-47.0) % MCV (80.0-100.0) fL MCH (25.0-34.0) pg MCHC (32.0-36.0) g/dL RDW Std Deviation (36.4-46.3) fL RDW Coeff of Rodolfo (11.5-14.5) % Plt Count (130-400) K/uL MPV (9.4-12.4) fL Immature Gran % (Auto) % Neut % (Auto) % Lymph % (Auto) % [place] % (Auto) % Eos % (Auto) % Baso % (Auto) % Neut # (Auto) (1.40-6.50) K/uL Lymph # (Auto) (1.20-3.40) K/uL [place] # (Auto) (0.11-0.59) K/uL Eos # (Auto) (0.00-0.50) K/uL Baso # (Auto) (0.00-0.20) K/uL Immature Gran # (Auto) (0.01-0.20) K/uL PT (9.0-12.0) Seconds INR (0.9-1.1) Sodium (136-145) mmol/L Potassium (3.5-5.1) mmol/L Chloride (98-107) mmol/L Carbon Dioxide (21-32) mmol/L Anion Gap (3-11) BUN (6-23) mg/dl Creatinine (0.6-1.2) mg/dl Est Cr Clr Drug Dosing eGFR BUN/Creatinine Ratio (10-20) Glucose (70-99(Fasting)) mg/dl Lactate (0.4-2.0) mmol/L Calcium (8.6-10.3) mg/dl Phosphorus (2.5-4.9) mg/dl Magnesium (1.7-2.4) mg/dl Total Bilirubin (0.2-1.0) mg/dl Direct Bilirubin (0-0.2) mg/dl AST (13-39) U/L ALT (7-52) U/L Alkaline Phosphatase (34-104) U/L Troponin I High Sens (0-14) pg/ml Total Protein (6.0-8.3) gm/dl Albumin (3.4-5.0) gm/dl Procalcitonin (0-0.5) ng/ml TSH (0.300-4.500) uIu/ml Urine Color Yellow Urine Appearance Turbid A (Clear) Urine pH 7.0 (4.5-7.5) Ur Specific Kake 1.020 (1.000-1.030) Urine Protein 3+ H (Negative) Urine Glucose (UA) Negative (Negative) Urine Ketones Negative (Negative) Urine Blood 3+ H (Negative) Urine Nitrite Negative (Negative) Urine Bilirubin Negative (Negative) Urine Urobilinogen Negative (Negative) Ur Leukocyte Esterase 3+ H (Negative) Urine RBC >20 H (0-2) /hpf Urine WBC >50 H (0-5) /hpf Ur Epithelial Cells >20 H (0-2) /hpf Urine Bacteria 3+ H (None Seen) Urine Comment Adenovirus (PCR) (NotDetected) B. pertussis DNA (PCR) (NotDetected) B.parapertussis DNA PCR (NotDetected) C. pneumoniae DNA (PCR) (NotDetected) Coronavirus OC43 (PCR) (NotDetected) Coronavirus HKU1 (PCR) (NotDetected) Coronavirus 229E (PCR) (NotDetected) SARS-CoV-2 (PCR) (NotDetected) Coronavirus NL63 (PCR) (NotDetected) Human Metapneumovir PCR (NotDetected) Influenza Type A (PCR) (NotDetected) Influenza Type B (PCR) (NotDetected) M. pneumoniae (PCR) (NotDetected) Parainfluenza 1 (PCR) (NotDetected) Parainfluenza 2 (PCR) (NotDetected) Parainfluenza 3 (PCR) (NotDetected) Parainfluenza 4 (PCR) (NotDetected) RSV (PCR) (NotDetected) Entero/Rhino (PCR) (NotDetected) Administered Medications Ascorbic Acid (Ascorbic Acid 500 Mg Tab) 500 mg PO BID [facility] Stop: 07/11/25 20:59 Last Admin: 06/11/25 20:53 Dose: Not Given Documented By: BREANNA Atorvastatin Calcium (Atorvastatin 40 Mg Tab) 80 mg PO HS [facility] Stop: 07/11/25 20:59 Last Admin: 06/11/25 20:57 Dose: 80 mg Documented By: BREANNA Docusate Sodium (Docusate Sodium 100 Mg Cap) 200 mg PO HS [facility] Stop: 07/11/25 20:59 Last Admin: 06/11/25 21:04 Dose: 200 mg Documented By: BREANNA Ferrous Sulfate (Ferrous Sulfate 325 Mg Tab) 325 mg PO Q2D [facility] Stop: 07/11/25 19:36 Last Admin: 06/11/25 20:56 Dose: 325 mg Documented By: BREANNA Piperacillin Sod/Tazobactam Sod (Zosyn) 4.5 gm in 100 mls @ 25 mls/hr IV Q8H [facility]; Protocol Stop: 06/18/25 21:29 Last Admin: 06/11/25 20:42 Dose: 25 mls/hr Documented By: BREANNA Sodium Chloride (Nss) 1,000 mls @ 80 mls/hr IV .[id number] [facility] Stop: 06/12/25 08:06 Last Admin: 06/11/25 20:40 Dose: 80 mls/hr Documented By: BREANNA Meclizine HCl (Meclizine Hcl 25 Mg Tab) 25 mg PO BID [facility] Stop: 07/11/25 20:59 Last Admin: 06/11/25 20:56 Dose: 25 mg Documented By: BREANNA Metoprolol Succinate (Metoprolol Succ 25mg Ext Rel Tab) 25 mg PO BID [facility] Stop: 07/11/25 20:59 Last Admin: 06/11/25 20:55 Dose: 25 mg Documented By: BREANNA Mirtazapine (Mirtazapine Tab 15 Mg Tab) 7.5 mg PO BID [facility] Stop: 07/11/25 20:59 Last Admin: 06/11/25 20:54 Dose: 7.5 mg Documented By: BREANNA Mirtazapine (Mirtazapine Tab 15 Mg Tab) 15 mg PO BID [facility] Stop: 07/11/25 20:59 Last Admin: 06/11/25 20:54 Dose: 15 mg Documented By: BREANNA Nystatin (Nystatin Powder 15gm Btl) 1 appln EXT BID PRN PRN Reason: Skin irritation Stop: 07/11/25 19:36 Last Admin: 06/11/25 20:51 Dose: 1 appln Documented By: BREANNA Petrolatum (Butt Paste (Zinc Oxide 16%) 171 Appln/57 Gm Jar) 1 appln TOP BID [facility] Stop: 07/11/25 20:59 Last Admin: 06/11/25 20:51 Dose: 1 appln Documented By: BREANNA Tamsulosin HCl (Tamsulosin Hcl 0.4 Mg Cap) 0.4 mg PO HS [facility] Stop: 07/11/25 20:59 Last Admin: 06/11/25 20:56 Dose: 0.4 mg Documented By: BREANNA Discontinued Medications Diclofenac Sodium (Diclofenac Sod 1% Gel 100 Gm Tube) 2 gm EXT QID [facility]; Protocol Stop: 07/11/25 20:59 Last Admin: 06/11/25 20:51 Dose: 2 gm Documented By: BREANNA Famotidine (Pepcid 20mg Iv Push) 20 mg in 5 mls @ 2.5 mls/min IV NOW STA Stop: 06/11/25 14:11 Last Admin: 06/11/25 14:19 Dose: 2.5 mls/min Documented By: QGV Acetaminophen (Ofirmev) 1,000 mg in 100 mls @ 400 mls/hr IV NOW STA Stop: 06/11/25 14:24 Last Infusion: 06/11/25 15:22 Dose: Infused Documented By: cheryl Admin: 06/11/25 14:20 Dose: 400 mls/hr Documented By: QGV Piperacillin Sod/Tazobactam Sod (Zosyn) 4.5 gm in 100 mls @ 200 mls/hr IV NOW ONE; Protocol Stop: 06/11/25 14:39 Last Infusion: 06/11/25 16:48 Dose: Infused Documented By: cheryl Admin: 06/11/25 16:15 Dose: 200 mls/hr Documented By: cheryl Sodium Chloride (Nss) 500 mls @ 999 mls/hr IV .Q31M ONE Stop: 06/11/25 14:44 Last Infusion: 06/11/25 15:23 Dose: Infused Documented By: cheryl Admin: 06/11/25 14:19 Dose: 999 mls/hr Documented By: QGV Sodium Chloride (Nss) 500 mls @ 999 mls/hr IV .Q31M ONE Stop: 06/11/25 17:47 Last Infusion: 06/11/25 18:06 Dose: Infused Documented By: cheryl Admin: 06/11/25 17:32 Dose: 999 mls/hr Documented By: cheryl Ioversol (Optiray 320 100ml) 93 ml IV ONCE ONE Stop: 06/11/25 15:42 Last Admin: 06/11/25 15:45 Dose: 93 ml Documented By: BG Ondansetron HCl (Ondansetron Inj 2 Mg/Ml 2 Ml Vial) Confirm Administered Dose 4 mg .ROUTE .STK-MED ONE Stop: 06/11/25 13:56 Last Admin: 06/11/25 13:59 Dose: 4 mg Documented By: FG Imaging Data Radiologist's Impression: Chest X-Ray 06/11/25 13:34 XR chest 1V portable CLINICAL HISTORY: Sepsis COMPARISON STUDY: 04/19/2025 FINDINGS: Stable cardiomegaly with mild pulmonary vascular congestion. Stable blunting of the left costophrenic angle. Otherwise the lungs remain aerated. Stable old fracture proximal right humerus. IMPRESSION: Stable exam. ACT 112: Negative or not required by law. Electronically signed by: Vincenzo Herrera M.D. 06/11/2025 2:10 PM Abdomen/Pelvis CT 06/11/25 15:04 CT SCAN OF THE ABDOMEN AND PELVIS WITH IV CONTRAST CLINICAL HISTORY: Fever, nausea and vomiting. COMPARISON STUDY: CT of the abdomen and pelvis April 19, 2025. TECHNIQUE: Following the IV administration of 93 cc of Optiray 320, CT scan of the abdomen and pelvis is performed from the lung bases to the proximal femora. Images are reviewed in the axial, sagittal, and coronal planes. IV contrast was administered without complication. A dose lowering technique was utilized adhering to the principles of ALARA. CT DOSE: 3033.63 mGy.cm FINDINGS: No pneumatosis, free air or portal venous gas is present. Liver, spleen, left adrenal gland and pancreas are unremarkable. Is no biliary or pancreatic ductal dilatation. A 2.3 cm right adrenal nodule remains unchanged. This favors an adenoma. There is no evidence for a bowel obstruction. There is a moderate amount stool within the rectum. Note is made of colonic diverticulosis without evidence for acute diverticulitis. Bilateral ureteral stents are in place. Moderate right and mild left hydronephrosis has mildly decreased since CT of April 19, 2025. Bilateral urothelial thickening is again noted. There is a small amount of gas within the right collecting system. No gas within the renal parenchyma is identified. Multiple bilateral renal calculi measure up to 1.1 cm. There no ureteral calculi. A Cobb balloon and gas within the bladder are noted. The bladder is collapsed. Marked left and mild right renal cortical thinning is unchanged. IMPRESSION: 1. Bilateral ureteral stents in place. Moderate right and mild left hydronephrosis, mildly decreased when compared to CT of April 19, 2025. Small amount of gas within the right collecting system. This could be related to the indwelling ureteral stent however a gas-forming infectious process could appear similar. Correlation with urinalysis is recommended. No gas within the renal parenchyma. Redemonstration of nonspecific bilateral urothelial thickening. 2. Bilateral nephrolithiasis. No ureteral calculi. 3. No bowel obstruction. Moderate amount of stool within the rectum. ACT 112: Negative or not required by law. Electronically signed by: Anibal Amos M.D. 06/11/2025 4:[address] 06/11/25 15:04 CT head/brain wo con CLINICAL HISTORY: n/v. TECHNIQUE: Multiple axial CT images of the head were obtained without contrast. A dose lowering technique was utilized adhering to the principles of ALARA. COMPARISON: 08/14/2024 FINDINGS: No intracranial hemorrhage seen. No mass effect, midline shift, or hydrocephalus. Stable moderate chronic small vessel ischemic changes. No skull fracture seen. Visualized paranasal sinuses and mastoid air cells are clear. IMPRESSION: No acute findings. ACT 112: Negative or not required by law. The above report was generated using voice recognition software. It may contain grammatical, syntax or spelling errors. Electronically signed by: Vincenzo Herrera M.D. 06/11/2025 3:54 PM Discharge Plan Visit Data Chief Complaint: Illness ED Provider: Antwon Brooks Discharge Problem: Catheter-associated urinary tract infection, Nausea & vomiting, SIRS (systemic inflammatory response syndrome), Paroxysmal atrial fibrillation Patient Disposition: Admitted As Inpatient Condition: Fair Discharge Instructions Interventions: ED Discharge Assessment Last Done: 06/11/25 18:24 Discharge Problem: Catheter-associated urinary tract infection Qualifiers: Indwelling urinary catheter type: indwelling urethral catheter Encounter type: initial encounter Qualified Code(s): T83.511A - Infection and inflammatory reaction due to indwelling urethral catheter, initial encounter; N39.0 - Urinary tract infection, site not specified Nausea & vomiting Qualifiers: Vomiting type: unspecified Qualified Code(s): R11.2 - Nausea with vomiting, unspecified
[2025-06-11] MEDS: OPTIRAY 320 100ml IV ONE (15:45)
--- NOTE | 2025-06-11 15:55 | CT Scan Report ---
CT head/brain wo con CLINICAL HISTORY: n/v. TECHNIQUE: Multiple axial CT images of the head were obtained without contrast. A dose lowering tech nique was utilized adhering to the principles of ALARA. COMPARISON: 08/14/2024 FINDINGS: No intracranial hemorrhage seen. No mass effect, midline shift, or hydrocephalus. Stable mo derate chronic small vessel ischemic changes. No skull fracture seen. Visualized paranasal sinuses an d mastoid air cells are clear. IMPRESSION: No acute findings. ACT 112: Negative or not required by law. The above report was generated using voice recognition software. It may contain grammatical, syntax o r spelling errors. Electronically signed by: Vincenzo Herrera M.D. 06/11/2025 3:54 PM
--- NOTE | 2025-06-11 16:09 | CT Scan Report ---
CT SCAN OF THE ABDOMEN AND PELVIS WITH IV CONTRAST CLINICAL HISTORY: Fever, nausea and vomiting. COMPARISON STUDY: CT of the abdomen and pelvis April 19, 2025. TECHNIQUE: Following the IV administration of 93 cc of Optiray 320, CT scan of the abdomen and pelvi s is performed from the lung bases to the proximal femora. Images are reviewed in the axial, sagittal , and coronal planes. IV contrast was administered without complication. A dose lowering technique wa s utilized adhering to the principles of ALARA. CT DOSE: 3033.63 mGy.cm FINDINGS: No pneumatosis, free air or portal venous gas is present. Liver, spleen, left adrenal gland and pancreas are unremarkable. Is no biliary or pancreatic ductal dilatation. A 2.3 cm right adrenal nodule remains unchanged. This favors an adenoma. There is no evidence for a bowel obstruction. Ther e is a moderate amount stool within the rectum. Note is made of colonic diverticulosis without eviden ce for acute diverticulitis. Bilateral ureteral stents are in place. Moderate right and mild left hyd ronephrosis has mildly decreased since CT of April 19, 2025. Bilateral urothelial thickening is again noted. There is a small amount of gas within the right collecting system. No gas within the renal pa renchyma is identified. Multiple bilateral renal calculi measure up to 1.1 cm. There no ureteral calc judy. A Osorio balloon and gas within the bladder are noted. The bladder is collapsed. Marked left and mild right renal cortical thinning is unchanged. IMPRESSION: 1. Bilateral ureteral stents in place. Moderate right and mild left hydronephrosis, mildly decreased when compared to CT of April 19, 2025. Small amount of gas within the right collecting system. This could be related to the indwelling urete ral stent however a gas-forming infectious process could appear similar. Correlation with urinalysis is recommended. No gas within the renal parenchyma. Redemonstration of nonspecific bilateral urotheli al thickening. 2. Bilateral nephrolithiasis. No ureteral calculi. 3. No bowel obstruction. Moderate amount of stool within the rectum. ACT 112: Negative or not required by law. Electronically signed by: Anibal Amos M.D. 06/11/2025 4:08 PM
[2025-06-11] MEDS: PIPERACILLIN/TAZOBACTAM 4.5 GM/100 ML BAG IV ONE (16:15)
--- NOTE | 2025-06-11 16:55 | Electrocardiogram Report ---
Test Reason : Blood Pressure : */* mmHG Vent. Rate : 122 BPM Atrial Rate : 122 BPM P-R Int : 160 ms QRS Dur : 90 ms QT Int : 274 ms P-R-T Axes : * 6 148 degrees QTcB Int : 390 ms Poor data quality, interpretation may be adversely affected atrial fibrillation with possible aberrancy Low voltage QRS Abnormal ECG When compared with ECG of 19-Apr-2025 09:34, Criteria for Inferior infarct are no longer Present ST now depressed in Anterior leads Nonspecific T wave abnormality, worse in Anterior leads Confirmed by See Farias ([id number]) on 06/11/2025 4:55:14 PM Referred By: REFERRED SELF Confirmed By: See Farias
[2025-06-11 16:56] LABS: Chlamydia pneumoniae PCR Not Detected (NotDetected); Coronavirus 229E PCR Not Detected (NotDetected); Coronavirus CoV-2 (COVID19)PCR Not Detected (NotDetected); Coronavirus HKU1 PCR Not Detected (NotDetected); Coronavirus NL63 PCR Not Detected (NotDetected); Coronavirus OC43PCR Not Detected (NotDetected); Human Metapneumovirus PCR Not Detected (NotDetected); Parainfluenza Virus 1 PCR Not Detected (NotDetected); Parainfluenza Virus 2 PCR Not Detected (NotDetected); Parainfluenza Virus 3 PCR Not Detected (NotDetected); Parainfluenza Virus 4 PCR Not Detected (NotDetected); Respiratory Syncytial VirusPCR Not Detected (NotDetected); Rhinovirus/Enterovirus PCR Not Detected (NotDetected)
[2025-06-11 17:34] LABS: Appearance Urine Turbid (Clear); Glucose Urine UA Negative (Negative)
--- NOTE | 2025-06-11 17:34 | History & Physical Report ---
Date of Service June 11, 2025 Assessment & Plan (1) Sepsis: (2) Atrial fibrillation with rapid ventricular response: (3) Depression: (4) Right foot strain: Plan 79-year-old female who is obese and has diet-controlled diabetes who presents with infection associate with chronic indwelling Cobb catheter and bilateral ureteral stents. She was discharged in April with a polymicrobial infection proving also have bacteremia by blood culture positivity. She Re presents with 1 day symptoms of foul-smelling urine increasing urine sediment and fevers and chills at home. She is felt to be septic in the emergency department, she had cultures obtained a Cobb catheter exchange and she was started on Zosyn therapy. She has no sign of renal distress at this time #Sepsis/CAUTI. Patient has cultures that she will be continue with additional volume given lower blood pressures in the emergency department. She is mated to PCU. Urology consult to be undertaken to determine if she needs her ureteral stents exchanged. The patient will also have discussion as she has multiple urological meds on her med rec will hopefully streamline these. #Right ankle injury patient has had a recent right ankle injury pending x-ray of her right ankle #Atrial fibrillation patient is maintained on metoprolol therapy. Eliquis is held in case procedure is needed. She typically takes risk reduction medications including atorvastatin. She is not typically on aspirin a day. #Depression patient takes mirtazapine twice a day for depression at higher doses. #Patient reconfirms she is a DNR/DNI. For DVT prevention were stopping her Eliquis dose in the evening of 06/11/2025. If this is prolonged hold we may consider chemo prophylaxis however we will reinstitute her Eliquis therapy as soon as possible. History of Present Illness Primary Care Provider: Pavan Mckeon MD 79-year-old female with chronic bilateral ureteral stents and chronic Cobb catheter who Romana presents to our facility with concern for sepsis from a urinary source with PET associated with long-term indwelling urinary catheter. She was discharged to our facility April 25, 2025 where she had an E. coli septicemia episode associated with this. Blood cultures were also positive for strep vaginosis and Staph hominis. Urine culture was also positive at that time with Proteus Enterococcus. Patient had ureteral stent exchange and Cobb catheter exchange with urology initially treated with Zosyn at that time changed to Augmentin at time of discharge completing a course till 29 April. Patient states she began noticing a strong smell urine about 2 days prior to presentation. She lives at a personal-fci. She then developed fevers and chills this morning and felt profoundly weak. In the emergency department despite volume resuscitation she still has lower blood pressures. Lactic acid has been normal. Patient is blood and urine cultures obtained catheter exchanged and Zosyn initiated in the emergency department. Patient also relates a recent issue with her right ankle where she feels she may have injured it it is slightly swollen she request an x-ray. Allergies Allergy/AdvReac Type Severity Reaction Status Date / Time doxycycline Allergy Intermediate Swelling Verified 04/20/25 12:25 tetracycline Allergy Mild Eye Verified 04/20/25 12:25 swelling codeine Allergy Unknown Unknown - Verified 04/20/25 12:25 On file connie/ [facility] [place] NARINDER Inhibitors AdvReac Intermediate Cough Verified 04/20/25 12:25 Sulfa (Sulfonamide AdvReac Mild Gastrointestinal Verified 04/20/25 12:25 Antibiotics) Upset Home Medications Medication Instructions Recorded Confirmed Type acetaminophen 500 mg tablet 500 mg PO Q6H PRN Fever Or Pain 06/28/23 06/11/25 History (Tylenol Extra Strength) apixaban 5 mg tablet (Eliquis) 5 mg PO AMHS 06/28/23 06/11/25 History atorvastatin 80 mg tablet 80 mg PO HS 06/28/23 06/11/25 History docusate sodium 100 mg capsule 200 mg PO HS 09/14/23 06/11/25 History (Colace) ferrous sulfate 325 mg (65 mg 325 mg PO Q OTHER DAY 04/03/24 06/11/25 History iron) tablet,delayed release tamsulosin 0.4 mg capsule 0.4 mg PO HS #30 caps 06/14/24 06/11/25 Rx ascorbic acid (vitamin C) 500 mg 500 mg PO BID 07/10/24 06/11/25 History tablet (Vitamin C) oxybutynin chloride 5 mg tablet 5 mg PO Q8H PRN bladder spasms #30 07/17/24 06/11/25 Rx tabs Saccharomyces boulardii 250 mg 250 mg PO QAM 08/14/24 06/11/25 History capsule (Florastor) cranberry extract 500 mg capsule 500 mg PO QAM 08/14/24 06/11/25 History (Cranberry Concentrate) diclofenac sodium 1 % topical gel 2 g EXT QID Pain 08/14/24 06/11/25 History (Voltaren Arthritis Pain) zinc oxide 20 % topical ointment 1 applic topical BID 08/14/24 06/11/25 History water for irrigation, sterile 1 irrig irrigation DAILY PRN 12/08/24 06/11/25 Rx (Curity Sterile Water irrigation catheter occlusion #6,000 mL solution) sennosides 8.6 mg tablet (senna) 17.2 mg PO HS PRN Constipation 12/17/24 06/11/25 History metoprolol succinate 25 mg 25 mg PO AMHS #60 tabs 12/25/24 06/11/25 Rx tablet,extended release 24 hr methenamine hippurate 1 gram tablet 1 g PO BID 01/19/25 06/11/25 History spironolactone 25 mg tablet 25 mg PO QAM 01/19/25 06/11/25 History ergocalciferol (vitamin D2) 1,250 0 mcg PO WK 04/19/25 06/11/25 History mcg (50,000 unit) capsule (Vitamin D2) folic acid 1 mg tablet 1 mg PO QAM 04/19/25 06/11/25 History miconazole nitrate 2 % topical 1 applic EXT DAILY PRN rash 04/19/25 06/11/25 History powder (Desenex) mirtazapine 7.5 mg tablet 7.5 mg PO BID 04/19/25 06/11/25 History cyanocobalamin (vitamin B-12) 500 1,000 mcg (2 x 500 mcg) PO QAM #60 04/25/25 06/11/25 Rx mcg tablet tabs meclizine 25 mg tablet 25 mg PO BID #60 tabs 04/25/25 06/11/25 Rx mirtazapine 15 mg tablet 15 mg PO BID #30 tabs 04/25/25 06/11/25 Rx oxycodone 5 mg tablet 5 mg PO Q4H PRN pain #10 tabs 04/25/25 06/11/25 Rx vibegron 75 mg tablet (Gemtesa) 75 mg PO DAILY #30 tabs 05/22/25 06/11/25 Rx Past Med/Surg History Problem List (Updated 06/11/25 @ 18:05 by Robert Landon MD) Depression Tinea corporis Hypoalbuminemia (Acute) Catheter-associated urinary tract infection Enterococcal bacteremia Urinary retention Morbid obesity Atrial fibrillation (Acute) Deep vein thrombosis Hyperlipidemia Asthma Osteoarthritis of knees, bilateral Chronic GERD Medical History Recurrent UTI Chronic indwelling Cobb catheter Ureteral stent present Hypertension History of DVT (deep vein thrombosis) PAF (paroxysmal atrial fibrillation) Obesity Pulmonary hypertension moderate per 06/2023 ECHO (PASP 47mmHg) Skin breakdown sacral skin breakdown per 06/2024 hospitalization; pt to follow with wound care at [facility] 2 or more hospital admissions in past 6 months admitted [facility] 06/08-06/15/24: dx: complicated UTI, chronic indwelling cobb catheter, calculus of L kidney, b/l hydronephrosis. admitted [facility] 06/26- 06/30/24: dx: infection associated with indwelling uteretal stent, hematuria, acute L flank pain: pt D/C on Cefdinir (pt also noted to have sacral skin area breakdown during admission and pt to f/u with wound care at [facility]) History of anemia History of posterior vitreous detachment B/L History of asthma "Well controlled" Chronic indwelling Cobb catheter Hydronephrosis of left kidney Diabetes mellitus, type II Diet controlled Overactive bladder HTN (hypertension) GERD (gastroesophageal reflux disease) Hyperlipidemia Hx of vertigo Hx of cancer of uterus 2013- radiation Hx pulmonary embolism Remote hx years ago In setting of prolonged sitting/immobility during a previous hospitalization per records Urinary retention Cobb cath in place History of home oxygen therapy not currently residential resident Resides at [facility] Nontoxic thyroid nodule Hx: UTI (urinary tract infection) Recurrent Hx of sepsis Lipodermatosclerosis Chronic bronchitis 'Bronchial asthma' Acquired lymphedema "Stomach" Gets therapy/massage to manage > was complication after radiation treatment per previous PAT RN notation IBS (irritable bowel syndrome) Surgical History History of anesthesia reaction Awareness with D&C and colonoscopy History of open reduction and internal fixation (ORIF) procedure (06/2023) left femur fx Hx of cystoscopy Multiple; most recent: 04/13/24: MAC without issue History of cataract surgery (2020) R/L History of dilatation and curettage History of esophagogastroduodenoscopy (EGD) History of colonoscopy History of bilateral tubal ligation History of cholecystectomy Hx of hernia repair (12/2017) Ventral hernia with mesh History of tooth extraction History of cardiac cath (02/18/11) @ [facility]--No stents Family History Other No family history of adverse response to anesthesia Social History Smoking Status: Never smoker Second Hand Exposure: No; Do You Dip or Chew Tobacco: No; Hx Alcohol Use: No Hx Substance Use: No Preferred Language: Azeri Communication Ability: Effective Communication Ability Comment: alert and oriented x3 - of sound mind to sign consent Visual Impairment: No Limitations Staffing Clerk Required: No Beliefs That Will Affect Care: None Current Living Situation: Personal Care Facility Current Living Situation Comment: [facility] Feels Safe at Home: Yes Assistive Devices: Hospital Bed Review of Systems Review of Systems: Mild distress and increasing fatigue no headache, no visual changes no speech or swallowing issues no chest pain, pressure or palpitations no shortness of breath, cough or wheezes no abdominal pain, nausea or vomiting, diarrhea or constipation Foul-smelling urine with increased sediment in her Cobb catheter Right lateral ankle pain with swelling no back pain, CVA tenderness or radicular pain no bruising, bleeding or rashes no focal signs of weakness or numbness or altered sensation no complaints of anxiety or depression.. Physical Exam Physical Exam: The patient appeared well nourished and normally developed. Patient is morbidly obese with a BMI of 36.9 but evaluated 2016 pounds at 5 foot 2. Vital signs as documented. Head exam is normocephalic atraumatic Neck is without JVD, thyromegaly, or carotid bruits. Lungs are clear to auscultation, diminished at the bases Cardiac exam, Rhythm is regular.. No murmurs, rubs or gallops. Abdominal exam reveals normal bowel sounds, soft non tender, no masses some issues with intertrigo Extremities are nonedematous and both pedal pulses are present Neurologic exam is alert and oriented, no focal loss of strength or sensation Skin is with intertrigo Psychologically is without concerns for anxiety or depression.. Results & Data Results & Data Vital Signs (Past 12 Hours) Vital Signs Temp Pulse Pulse Resp BP BP Pulse Ox 06/11/25 16:45 85 20 97/53 L 95 06/11/25 16:15 85 23 107/64 95 06/11/25 16:00 99 H 21 121/55 L 95 06/11/25 15:15 98 H 20 103/52 L 96 06/11/25 15:02 98 H 20 110/58 L 95 06/11/25 14:04 98.2 F 116 H 26 H 111/47 L 91 06/11/25 14:04 116 H 26 H 91 06/11/25 13:50 99.9 F H 122 H 26 H 127/93 91 O2 Del Method 06/11/25 16:45 Room Air 06/11/25 16:15 Room Air 06/11/25 16:00 Room Air 06/11/25 15:15 Room Air 06/11/25 15:02 Room Air 06/11/25 14:04 Room Air 06/11/25 14:04 Room Air 06/11/25 13:50 Room Air Laboratory Results Reviewed CBC patient with leukocytosis. Reviewed chemistry preserved renal function reviewed respiratory BioFire. Negative Markedly abnormal UA on presentation Code Status & VTE Plan VTE Prophylaxis Plan VTE Prophylaxis will be ordered: Yes PG Care Time/CCT Total # of Minutes Spent Total Time Spent with Patient: Total time spent is greater than 50% in coordination of care (as documented) at patient's floor/unit and/or counseling patient: Coding Level of Care Code 74954 INT INP/OBS CARE 3/75MIN Diagnoses Sepsis A41.9 Atrial fibrillation with rapid ventricular response I48.91 Depression F32.A Right foot strain S96.911A
[2025-06-11 17:44] LABS: Epithelial Cell Urine >20 /hpf (0-2)
--- NOTE | 2025-06-11 18:32 | XRay Report ---
History: Pain Comparison: None Findings: There is no acute fracture or dislocation. Alignment is anatomic. Joint spaces are well maintained. There is prominent soft tissue swelling about the ankle. Diffuse vascular calcifications. The bones are osteopenic. There are calcaneal enthesophytes. Impression: No acute bony abnormality Electronically signed by See Argueta 06-11-2025 6:31 PM
[2025-06-11] MEDS ORDERED: ACETAMINOPHEN 325 MG TAB PO PRN (19:37)
[2025-06-11] MEDS ORDERED: ONDANSETRON INJ 2 MG/ML 2 ML VIAL IV PRN (19:37)
[2025-06-11] MEDS ORDERED: MoRPHine SULFATE 2 MG/ML CARP IV PRN (19:37)
[2025-06-11] MEDS ORDERED: POLYETHYLENE (MIRALAX) 17 GM PACK PO PRN (19:37)
[2025-06-11] MEDS ORDERED: ACETAMINOPHEN 500 MG TAB PO PRN (19:37)
[2025-06-11] MEDS: SODIUM CHLORIDE 0.9% 1,000 ML IV SCH (20:40)
[2025-06-11] MEDS: PIPERACILLIN/TAZOBACTAM 4.5 GM/100 ML BAG IV SCH (20:42)
[2025-06-11] MEDS: DICLOFENAC SOD 1% GEL 100 GM TUBE EXT SCH (20:51)
[2025-06-11] MEDS: NYSTATIN POWDER 15GM BTL EXT PRN (20:51)
[2025-06-11] MEDS: BUTT PASTE (ZINC OXIDE 16%) 171 APPLN/57 GM JAR TOP SCH (20:51)
[2025-06-11] MEDS: ASCORBIC ACID 500 MG TAB PO SCH (20:53)
[2025-06-11] MEDS: MIRTAZAPINE TAB 15 MG TAB PO SCH ×2 (20:54)
[2025-06-11] MEDS: METOPROLOL SUCC 25MG EXT REL TAB PO SCH (20:55)
[2025-06-11] MEDS: TAMSULOSIN HCL 0.4 MG CAP PO SCH (20:56)
[2025-06-11] MEDS: MECLIZINE HCL 25 MG TAB PO SCH (20:56)
[2025-06-11] MEDS: FERROUS SULFATE 325 MG TAB PO SCH (20:56)
[2025-06-11] MEDS: ATORVASTATIN 40 MG TAB PO SCH (20:57)
[2025-06-11] MEDS: DOCUSATE SODIUM 100 MG CAP PO SCH (21:04)
[2025-06-11] MEDS ORDERED: DICLOFENAC SOD 1% GEL 100 GM TUBE EXT PRN (21:13)
[2025-06-12 05:16] LABS: A calco-baum cmplx NotReported Not Detected (NotDetected); Bact fragilis Not Reported Not Detected (NotDetected); Blood Culture Id Panel See PCR Comment (NotDetected); C auris Not Reported Not Detected (NotDetected); CTX-M Resistant Gene Not Detected (NotDetected); Calbicans Not Reported Not Detected (NotDetected); Candida glabrata Not Reported Not Detected (NotDetected); Candida krusei Not Reported Not Detected (NotDetected); Cneoformans/gatti Not Reported Not Detected (NotDetected); Cparapsilosis Not Reported Not Detected (NotDetected); Ctropicalis Not Reported Not Detected (NotDetected); E cloacae compx Not Reported Not Detected (NotDetected); Efaecalis Not Reported Not Detected (NotDetected); Efaecium Not Reported Not Detected (NotDetected); Enterobacterales DETECTED (NotDetected); Enterobacterales Not Reported DETECTED (NotDetected); Escherichia coli Not Reported DETECTED (NotDetected); H influenzae Not Reported Not Detected (NotDetected); IMP Resistant Gene Not Detected (NotDetected); K aerogenes Not Reported Not Detected (NotDetected); KPC Resistant Gene Not Detected (NotDetected); Koxytoca Not Reported Not Detected (NotDetected); Kpneumoniae grp Not Reported Not Detected (NotDetected); Lmonocyt Not Reported Not Detected (NotDetected); N meningitidis Not Reported Not Detected (NotDetected); NDM Resistant Gene Not Detected (NotDetected); OXA 48 Like Resistant Gene Not Detected (NotDetected); P aeruginosa Not Reported Not Detected (NotDetected); Proteus spp Not Reported Not Detected (NotDetected); Salmonella spp Not Reported Not Detected (NotDetected); Staph lugdunensis Not Reported Not Detected (NotDetected); Staph spp. Not Reported Not Detected (NotDetected); Staphaureus Not Reported Not Detected (NotDetected); Staphepi Not Reported Not Detected (NotDetected); Stenmaltophilia Not Reported Not Detected (NotDetected); Strep agal(GrpB) Not Reported Not Detected (NotDetected); Strep pneum Not Reported Not Detected (NotDetected); Strep pyog (GrpA) Not Reported Not Detected (NotDetected); Strep spp Not Reported Not Detected (NotDetected); VIM Resistant Gene Not Detected (NotDetected); mcr-1 Colistin Resistant Gene Not Detected (NotDetected)
[2025-06-12 06:12] LABS: Hematocrit (blood only) 32.3 % (37.0-47.0); Hemoglobin 9.7 g/dl (12.0-16.0); Mean Corpuscular Hemoglobin 26.0 pg (25.0-34.0); Mean Corpuscular Volume 86.6 fL (80.0-100.0); Platelet Count 282 K/uL (130-400); RDW Standard Deviation 51.5 fL (36.4-46.3); Red Blood Count 3.73 M/uL (4.20-5.40); White Blood Count 12.97 K/ul (4.8-10.8)
[2025-06-12 06:34] LABS: Anion Gap 7.0 (3-11); Blood Urea Nitrogen 11.0 mg/dl (6-23); Calcium 8.0 mg/dl (8.6-10.3); Carbon Dioxide 27.0 mmol/L (21-32); Chloride 107.0 mmol/L (98-107); Creatinine Clr Calc Pharmacy 87.4 ml/min; Glucose 108.0 mg/dl (70-99(Fasting)); Potassium 3.1 mmol/L (3.5-5.1); Sodium 141.0 mmol/L (136-145)
--- NOTE | 2025-06-12 07:52 | Hospitalist Progress Note ---
Date of Service June 12, 2025 Assessment & Plan (1) Sepsis: (2) Atrial fibrillation with rapid ventricular response: (3) Depression: (4) Right foot strain: Plan 79-year-old female who is obese and has diet-controlled diabetes who presents with infection associate with chronic indwelling Osorio catheter and bilateral ureteral stents. She was discharged in April with a polymicrobial infection proving also have bacteremia by blood culture positivity. She Re presents with 1 day symptoms of foul-smelling urine increasing urine sediment and fevers and chills at home. She is felt to be septic in the emergency department, she had cultures obtained a Osorio catheter exchange and she was started on Zosyn therapy. She has no sign of renal distress at this time #Sepsis/CAUTI. pt has gram negative bacteremia, Zosyn continues blood pressures are soft but improved Urology consult to be undertaken to determine if she needs her ureteral stents exchanged. The patient will also have discussion as she has multiple urological meds on her med rec will hopefully streamline these. #Right ankle injury patient has had a recent right ankle injury, X rays are negative for fracture #Atrial fibrillation patient is maintained on metoprolol therapy. Eliquis is held in case procedure is needed. She typically takes risk reduction medications including atorvastatin. She is not typically on aspirin a day. #Depression patient takes mirtazapine twice a day for depression at higher doses. #Patient reconfirms she is a DNR/DNI. For DVT prevention were stopping her Eliquis dose in the evening of 06/11/2025. If this is prolonged hold we may consider chemo prophylaxis however we will reinstitute her Eliquis therapy as soon as possible. Admission and Anticipated Discharge Date Admission Date: June 11, 2025 Results & Data Results & Data Vital Signs (Past 12 Hours) Vital Signs Temp Pulse Pulse Resp BP Pulse Ox O2 Del Method 06/12/25 07:25 98.4 F 69 18 100/61 93 Room Air 06/12/25 03:26 98.6 F 75 18 118/68 96 Room Air 06/11/25 23:01 97.5 F L 68 18 135/82 97 Room Air 06/11/25 22:02 63 06/11/25 20:00 98.1 F 73 18 108/60 94 Room Air PG Care Time/CCT Total # of Minutes Spent Total Time Spent with Patient: Total time spent is greater than 50% in coordination of care (as documented) at patient's floor/unit and/or counseling patient: Coding Diagnoses Sepsis A41.9 Atrial fibrillation with rapid ventricular response I48.91 Depression F32.A Right foot strain S96.918G
--- NOTE | 2025-06-12 07:55 | Urology Consultation ---
<Statement entered by Darinel Thorpe MD - 06/13/25 07:08> 79-year-old female with recurrent UTIs, longstanding hydronephrosis managed with indwelling ureteral stents. Hydronephrosis appears stable on imaging. Gas in the collecting system should be treated as infection with broad-spectrum antibiotics, narrowing as culture data becomes available. Stents were exchanged fairly recently, using long-term stents that should not require his frequent exchanges. If she fails to improve clinically, could revisit the possibility of ureteral stent exchange, but for now plan to hold off surgical intervention. She has been on multiple medications for her bladder due to leakage around the catheter. Unfortunately some of this is to be expected with a catheter in place. Would recommend continuing Vibegron and resuming methenamine for UTI prophylaxis once she is done with her current course of antibiotics. Okay to stop tamsulosin and oxybutynin for now. Date of Consultation June 12, 2025 Assessment & Plan (1) Hydronephrosis: (2) Sepsis: (3) Complicated urinary tract infection: Plan 79-year-old female with history of nephrolithiasis, chronic indwelling Cobb, recurrent UTIs and bilateral ureteral stents last exchanged on 04/20/25 admitted for complicated UTI. Patient afebrile, hemodynamically stable Labs reviewedWBC trending down (15-12), hemoglobin 9.7, creatinine 0.57 Urine and blood cultures pending She is on Zosyn CT showed bilateral ureteral stents in place, moderate right and mild left hydronephrosis (decreased from prior CT), small amount of gas in the right collecting system, bilateral renal stones, and no ureteral stones Last stent exchange was on 04/20/25 No plan for acute intervention Continue broad-spectrum antibiotics and tailor as culture sensitivities become available Continue supportive care Maintain Cobb catheter In regards to her medications, I discussed with her management of leakage/bladder spasms in the setting of chronic b/l stents and cobb catheter. Will plan to continue daily Gemtesa to help with bladder spasms and can stop the Tamsulosin and Oxybutynin. Will also continue Methenamine for UTI prevention and can resume after treatment of current infection. will follow, please contact us with any questions/concerns. History of Present Illness Attending Physician: Robert Landon MD History of Present Illness 79 year old female followed by urology for hematuria, nephrolithiasis, hydronephrosis, recurrent urinary tract infections. She has been managing with chronic cobb catheter and indwelling bilateral ureteral stents last exchanged on 04/20/[address] Thorpe. She presented to the ED on 06/11/25 with c/o fevers with nausea, vomiting, and foul smelling urine. In the ED, she had a temp of 37.7C, tachycardic otherwise stable vitals. Labs showed leukocytosis of 15.28 and creatinine 0.58. Urinalysis demonstrated 3+ blood, 3+ leukocyte esterase, > 20 RBC, >50 WBC, 3+ bacteria, negative nitrite. Blood and urine cultures were drawn. Her Cobb catheter was exchanged and she was started on Zosyn. CT abdomen pelvis showed bilateral ureteral stents in place. Moderate right and mild left hydronephrosis, mildly decreased when compared to CT of April 19, 2025. Small amount of gas within the right collecting system. Multiple bilateral renal calculi measure up to 1.1 cm. There no ureteral calculi. A Cobb balloon and gas within the bladder are noted. The bladder is collapsed. Marked left and mild right renal cortical thinning is unchanged. Patient was seen at bedside this morning. She is awake and resting in bed on arrival. No acute distress. Cobb intact and draining clear yellow urine. She denies any significant pain or discomfort. She had some breakfast this morning. No nausea or vomiting. Denies fever or chills so far today. Allergies Allergy/AdvReac Type Severity Reaction Status Date / Time doxycycline Allergy Intermediate Swelling Verified 04/20/25 12:25 tetracycline Allergy Mild Eye Verified 04/20/25 12:25 swelling codeine Allergy Unknown Unknown - Verified 04/20/25 12:25 On file w/ [facility] Inhibitors AdvReac Intermediate Cough Verified 04/20/25 12:25 Sulfa (Sulfonamide AdvReac Mild Gastrointestinal Verified 04/20/25 12:25 Antibiotics) Upset Home Medications Medication Instructions Recorded Confirmed Type acetaminophen 500 mg tablet 500 mg PO Q6H PRN Fever Or Pain 06/28/23 06/11/25 History (Tylenol Extra Strength) apixaban 5 mg tablet (Eliquis) 5 mg PO AMHS 06/28/23 06/11/25 History atorvastatin 80 mg tablet 80 mg PO HS 06/28/23 06/11/25 History docusate sodium 100 mg capsule 200 mg PO HS 09/14/23 06/11/25 History (Colace) ferrous sulfate 325 mg (65 mg 325 mg PO Q OTHER DAY 04/03/24 06/11/25 History iron) tablet,delayed release ascorbic acid (vitamin C) 500 mg 500 mg PO BID 07/10/24 06/11/25 History tablet (Vitamin C) Saccharomyces boulardii 250 mg 250 mg PO QAM 08/14/24 06/11/25 History capsule (Florastor) cranberry extract 500 mg capsule 500 mg PO QAM 08/14/24 06/11/25 History (Cranberry Concentrate) diclofenac sodium 1 % topical gel 2 g EXT QID Pain 08/14/24 06/11/25 History (Voltaren Arthritis Pain) zinc oxide 20 % topical ointment 1 applic topical BID 08/14/24 06/11/25 History water for irrigation, sterile 1 irrig irrigation DAILY PRN 12/08/24 06/11/25 Rx (Wetradetogether Sterile Water irrigation catheter occlusion #6,000 mL solution) sennosides 8.6 mg tablet (senna) 17.2 mg PO HS PRN Constipation 12/17/24 06/11/25 History metoprolol succinate 25 mg 25 mg PO AMHS #60 tabs 12/25/24 06/11/25 Rx tablet,extended release 24 hr methenamine hippurate 1 gram tablet 1 g PO BID 01/19/25 06/11/25 History spironolactone 25 mg tablet 25 mg PO QAM 01/19/25 06/11/25 History ergocalciferol (vitamin D2) 1,250 0 mcg PO WK 04/19/25 06/11/25 History mcg (50,000 unit) capsule (Vitamin D2) folic acid 1 mg tablet 1 mg PO QAM 04/19/25 06/11/25 History miconazole nitrate 2 % topical 1 applic EXT DAILY PRN rash 04/19/25 06/11/25 History powder (Desenex) mirtazapine 7.5 mg tablet 7.5 mg PO BID 04/19/25 06/11/25 History cyanocobalamin (vitamin B-12) 500 1,000 mcg (2 x 500 mcg) PO QAM #60 04/25/25 06/11/25 Rx mcg tablet tabs meclizine 25 mg tablet 25 mg PO BID #60 tabs 04/25/25 06/11/25 Rx mirtazapine 15 mg tablet 15 mg PO BID #30 tabs 04/25/25 06/11/25 Rx oxycodone 5 mg tablet 5 mg PO Q4H PRN pain #10 tabs 04/25/25 06/11/25 Rx vibegron 75 mg tablet (Gemtesa) 75 mg PO DAILY #30 tabs 05/22/25 06/11/25 Rx Patient History Medical History E. coli septicemia Hydronephrosis Nephrolithiasis Recurrent UTI Chronic indwelling Cobb catheter Ureteral stent present Hypertension History of DVT (deep vein thrombosis) PAF (paroxysmal atrial fibrillation) Obesity Pulmonary hypertension moderate per 06/2023 ECHO (PASP 47mmHg) Skin breakdown sacral skin breakdown per 06/2024 hospitalization; pt to follow with wound care at [facility] 2 or more hospital admissions in past 6 months admitted [facility] 06/08-06/15/24: dx: complicated UTI, chronic indwelling cobb catheter, calculus of L kidney, b/l hydronephrosis. admitted [facility] 06/26- 06/30/24: dx: infection associated with indwelling uteretal stent, hematuria, acute L flank pain: pt D/C on Cefdinir (pt also noted to have sacral skin area breakdown during admission and pt to f/u with wound care at [facility]) History of anemia History of posterior vitreous detachment B/L History of asthma "Well controlled" Chronic indwelling Cobb catheter Hydronephrosis of left kidney Diabetes mellitus, type II Diet controlled Overactive bladder HTN (hypertension) GERD (gastroesophageal reflux disease) Hyperlipidemia Hx of vertigo Hx of cancer of uterus 2013- radiation Hx pulmonary embolism Remote hx years ago In setting of prolonged sitting/immobility during a previous hospitalization per records Urinary retention Cobb cath in place History of home oxygen therapy not currently detention resident Resides at [facility] Nontoxic thyroid nodule Hx: UTI (urinary tract infection) Recurrent Hx of sepsis Lipodermatosclerosis Chronic bronchitis 'Bronchial asthma' Acquired lymphedema "Stomach" Gets therapy/massage to manage > was complication after radiation treatment per previous PAT RN notation IBS (irritable bowel syndrome) Surgical History History of anesthesia reaction Awareness with D&C and colonoscopy History of open reduction and internal fixation (ORIF) procedure (06/2023) left femur fx Hx of cystoscopy Multiple; most recent: 04/13/24: MAC without issue History of cataract surgery (2020) R/L History of dilatation and curettage History of esophagogastroduodenoscopy (EGD) History of colonoscopy History of bilateral tubal ligation History of cholecystectomy Hx of hernia repair (12/2017) Ventral hernia with mesh History of tooth extraction History of cardiac cath (02/18/11) @ [facility]--No stents Family History Other No family history of adverse response to anesthesia Social History Smoking Status: Never smoker Second Hand Exposure: No; Do You Dip or Chew Tobacco: No; Hx Alcohol Use: No Hx Substance Use: No Preferred Language: Guyanese Communication Ability: Effective Communication Ability Comment: alert and oriented x3 - of sound mind to sign consent Visual Impairment: No Limitations [place] Required: No Beliefs That Will Affect Care: None Current Living Situation: [facility] Current Living Situation Comment: [facility] Feels Safe at Home: Yes Assistive Devices: Walker and Wheelchair Review of Systems Review of Systems: All systems reviewed & are unremarkable except as noted in HPI & below Physical Exam Constitutional: no acute distress Respiratory: no respiratory distress and no labored breathing Neurologic: awake Psychiatric: A+Ox3, euthymic affect Genitourinary: Cobb intact Results & Data Vital Signs (Past 12 Hours) Vital Signs Temp Pulse Pulse Resp BP Pulse Ox O2 Del Method 06/12/25 07:25 36.9 C 69 18 100/61 93 Room Air 06/12/25 03:26 37.0 C 75 18 118/68 96 Room Air 06/11/25 23:01 36.4 C L 68 18 135/82 97 Room Air 06/11/25 22:02 63 06/11/25 20:00 36.7 C 73 18 108/60 94 Room Air PG Care Time/CCT Total # of Minutes Spent Total Time Spent with Patient: Total time spent is greater than 50% in coordination of care (as documented) at patient's floor/unit and/or counseling patient: Coding Level of Care Code 99234 INT INP/OBS CARE MIN Diagnoses Hydronephrosis N13.30 Sepsis A41.9 Complicated urinary tract infection N39.0
[2025-06-12] MEDS: FOLIC ACID 1 MG TAB PO SCH (08:06)
[2025-06-12] MEDS: VIBEGRON 75 MG TAB PO SCH (08:06)
[2025-06-12] MEDS: CYANOCOBALAMIN (B-12) 500 MCG TABLET PO SCH (08:07)
[2025-06-12] MEDS: POTASSIUM CHLORIDE CRTAB 20 MEQ TABCR PO SCH (08:11)
[2025-06-12] MEDS: POTASSIUM CHLORIDE CRTAB 20 MEQ TABCR PO STA (08:11)
[2025-06-12] MEDS ORDERED: NON-FORMULARY MEDICATION (Cranberry Extract [Cranberry Concentrate] 500 mg Capsule) PO SCH (09:00)
--- NOTE | 2025-06-12 09:50 | Hospitalist Progress Note ---
Date of Service June 12, 2025 Assessment & Plan (1) Sepsis: (2) Atrial fibrillation with rapid ventricular response: (3) Depression: (4) Right foot strain: Plan 79-year-old female who is obese and has diet-controlled diabetes who presents with infection associate with chronic indwelling Osorio catheter and bilateral ureteral stents. She was discharged in April with a polymicrobial infection proving also have bacteremia by blood culture positivity. She Re presents with 1 day symptoms of foul-smelling urine increasing urine sediment and fevers and chills at home. She is felt to be septic in the emergency department, she had cultures obtained a Osorio catheter exchange and she was started on Zosyn therapy. She has no sign of renal distress at this time #Sepsis/CAUTI - Blood Cx prelim with growth of GN bacilli - Urine Cx mixed organisms - HD stable, WBC trending down on CBC reviewed this AM - Continues on Zosyn - Urology consulted, appreciate assistance, seen this AM, no plan for stent exchange at this time - Multiple urological meds on her med rec will hopefully streamline these. #Right ankle injury patient has had a recent right ankle injury - X rays are negative for fracture, APAP +/- OxyIR #Hypokalemia - K+ 3.1 this AM, replacement ordered with KCl 40meq po x1 #Atrial fibrillation - patient is maintained on metoprolol therapy. - Eliquis initially held for possible urologic intervention, since not plan for this will resume today - She typically takes risk reduction medications including atorvastatin. She is not typically on aspirin a day. #Depression - Continues on mirtazapine twice a day Patient reconfirms she is a DNR/DNI. DVT ppx resume Eliquis 5mg BID AM labs ordered. PT/OT eval and treat. Anticipate will be able to de-escalate abx in the next 24 hours once cultures finalized. Admission and Anticipated Discharge Date Admission Date: June 11, 2025 Ashli Reyes is a 79 yo F admitted with CAUTI/Sepsis syndrome. She was seen today on daily rounds, reports some back discomfort from laying in bed. She is primarily bed-bound at [facility]. Hasn't walked in months. Had an injury recently when they attempted to transfer her from bed to wheelchair. She denies abd pain, cp, or dyspnea. No fever or chills. HD stable. Continues on Zosyn. Review of Systems 2 Review of Systems: All systems reviewed and are unremarkable except as noted in HPI and below. Denies fever, chills, fatigue, headache, nasal congestion, sore throat, cough, chest pain, shortness of breath, palpitations, orthopnea, PND, abdominal pain, n/v/d, constipation, joint pain or swelling, easy bruising or bleeding, skin lesions or rashes. Physical Exam 2 Physical Exam: GENERAL: 79 yo morbidly obese elderly WF. A&Ox3. No distress. LUNGS: Clear to auscultation bilaterally. No W/R/R. CARDIOVASCULAR: S1 S2 irreg +RODRÍGUEZ ABDOMEN: Soft, obese, non-tender and non-distended. BS normoactive x 4 quad. EXTREMITIES: No edema. Peripheral pulses +2/4. PSYCHIATRIC: Cooperative. Appropriate mood and affect. SKIN: Warm, dry, intact. No rashes or lesions. Results & Data Results & Data Vital Signs (Past 12 Hours) Vital Signs Temp Pulse Pulse Resp BP Pulse Ox O2 Del Method 06/12/25 07:25 36.9 C 69 18 100/61 93 Room Air 06/12/25 03:26 37.0 C 75 18 118/68 96 Room Air 06/11/25 23:01 36.4 C L 68 18 135/82 97 Room Air 06/11/25 22:02 63 Laboratory Results 06/12/25 05:43 06/12/25 05:43 PG Care Time/CCT Total # of Minutes Spent Total Time Spent with Patient: Total time spent is greater than 50% in coordination of care (as documented) at patient's floor/unit and/or counseling patient: 38 minutes Coding Level of Care Code 14443 SUB INP/OBS CARE 2/35MIN Diagnoses Sepsis A41.9 Atrial fibrillation with rapid ventricular response I48.91 Depression F32.A Right foot strain S96.911A
[2025-06-12] MEDS: APIXABAN 5 MG TABLET PO SCH (10:59)
[2025-06-13 08:23] LABS: Hematocrit (blood only) 30.4 % (37.0-47.0); Hemoglobin 9.0 g/dl (12.0-16.0); Mean Corpuscular Hemoglobin 25.9 pg (25.0-34.0); Mean Corpuscular Volume 87.6 fL (80.0-100.0); Platelet Count 268 K/uL (130-400); RDW Standard Deviation 53.1 fL (36.4-46.3); Red Blood Count 3.47 M/uL (4.20-5.40); White Blood Count 7.42 K/ul (4.8-10.8)
[2025-06-13 09:00] LABS: Anion Gap 4.0 (3-11); Blood Urea Nitrogen 10.0 mg/dl (6-23); Calcium 8.0 mg/dl (8.6-10.3); Carbon Dioxide 29.0 mmol/L (21-32); Chloride 109.0 mmol/L (98-107); Creatinine Clr Calc Pharmacy 80.3 ml/min; Glucose 99.0 mg/dl (70-99(Fasting)); Magnesium 1.6 mg/dl (1.7-2.4); Potassium 3.8 mmol/L (3.5-5.1); Sodium 142.0 mmol/L (136-145)
--- NOTE | 2025-06-13 10:51 | Urology Progress Note ---
Date of Service June 13, 2025 Assessment & Plan (1) Complicated UTI (urinary tract infection): (2) Hydronephrosis: Plan 79-year-old female with history of nephrolithiasis, chronic indwelling Osorio, recurrent UTIs and bilateral ureteral stents last exchanged on 04/20/25 admitted for complicated UTI. Patient afebrile, hemodynamically stable. Labs reviewedLeukocytosis resolved, hemoglobin 9.0, creatinine 0.62. Urine culture final with more than 3 types of organisms, high counts. Blood cultures prelim 1/4 gram negative bacilli. She is on Rocephin. CT showed bilateral ureteral stents in place, moderate right and mild left hydronephrosis (decreased from prior CT), small amount of gas in the right collecting system likely from infection. Last stent exchange was on 04/20/25. Stents were exchanged fairly recently, using long-term stents that should not require his frequent exchanges. If she fails to improve clinically, could revisit the possibility of ureteral stent exchange, but for now plan to hold off surgical intervention. Continue broad-spectrum antibiotics and tailor as culture sensitivities become available. Continue supportive care. Maintain Osorio catheter. Continue Gemtesa and can resume methenamine for UTI prophylaxis once she is done with her current course of antibiotics. will follow peripherally, please contact us with any questions/concerns or changes in patient status. Admission and Anticipated Discharge Date Admission Date: June 11, 2025 Subjective Patient was seen at bedside today. She is awake and resting in bed on arrival. No acute distress. Osorio draining clear yellow urine. Denies any significant pain or discomfort. Denies fever, chills, nausea, vomiting. Review of Systems Constitutional: as per Subjective / HPI Genitourinary: as per Subjective / HPI Physical Exam Constitutional: no acute distress Respiratory: no respiratory distress and no labored breathing Neurologic: awake Psychiatric: A+Ox3, euthymic affect Genitourinary: Osorio intact Results & Data Vital Signs (Past 12 Hours) Vital Signs Temp Pulse Resp BP Pulse Ox O2 Del Method 06/13/25 08:12 36.7 C 89 18 151/73 H 96 Room Air 06/13/25 03:11 36.4 C L 72 16 103/67 96 Room Air 06/12/25 23:10 36.6 C 73 18 105/70 95 Room Air PG Care Time/CCT Total # of Minutes Spent Total Time Spent with Patient: Total time spent is greater than 50% in coordination of care (as documented) at patient's floor/unit and/or counseling patient: Coding Level of Care Code 87429 SUB INP/OBS CARE 235MIN Diagnoses Complicated UTI (urinary tract infection) N39.0 Hydronephrosis N13.30
[2025-06-13] MEDS: cefTRIAXone SODIUM 2,000 MG/50 ML BAG IV SCH (11:59)
--- NOTE | 2025-06-13 17:45 | Hospitalist Progress Note ---
Date of Service June 13, 2025 Assessment & Plan (1) Catheter-associated urinary tract infection: (2) E coli bacteremia: (3) Atrial fibrillation: (4) Diabetes: Plan 79-year-old woman with bilateral ureteral stents and Osorio catheter admitted with complicated UTI/catheter associated UTI # sepsis due to complicated/catheter associated UTI. bilateral ureteral stents also in place with some decrease in hydronephrosis on current imaging. Nephrolithiasis. # E. coli bacteremia related to the urinary tract infection - reviewed recommendations in urology note they do not recommend changing of stents at this point. Stents changed in April and are of a type which should not require frequent changes - continue vibegron and tamsulosin - antibiotics were narrowed from pip-tazo to ceftriaxone based on current cultures. will need 10-14 days of treatment # atrial fibrillation Continue apixaban, metoprolol, this is stable #recent right ankle injury - reviewed x-ray there is some soft tissue swelling about the ankle but no acute fracture or dislocation - monitor left hip may be her positioning but appeared externally rotated and foreshortened on exam, obtain hip x-ray if indicated #Atrial fibrillation patient is maintained on metoprolol therapy. Eliquis is held in case procedure is needed. She typically takes risk reduction medications including atorvastatin. She is not typically on aspirin a day. #Depression patient takes mirtazapine twice a day for depression at higher doses. # functional paraplegia - she reports she has not been ambulatory in quite some time, recently she was evaluated for left hip fracture but she says no fracture was present - recently has not even been able to transfer independently into wheelchair - resident of [facility], anticipate return there DVT prophylaxis: Apixaban suitable for discharge once sensitivities are available on the E. coli and she can be discharged on hopefully oral therapy Admission and Anticipated Discharge Date Admission Date: June 11, 2025 Subjective she does feel better than at the time of admission, less malaise. She does not have any shortness of breath chest pain or abdominal pain denies any suprapubic pain. She did not have any specific urinary symptoms such as dysuria or urinary frequency Physical Exam 2 Physical Exam: PHYSICAL EXAMINATION Last 24h vital signs reviewed, see documentation in flowsheet General: comfortable appearing, no distress HEENT: Normocephalic, atraumatic, pupils round and equal, sclerae anicteric, no conjunctival injection, moist mucus membranes Lungs: Normal respiratory effort. Clear to auscultation bilaterally. No RRW Heart: Regular rate and rhythm, no murmurs. No JVD Abdomen: Soft, nontender, nondistended. Bowel sounds present. Extremities: Warm, dry, well-perfused. No extremity edema. left lower extremity is externally rotated and foreshortened Neuro: Alert and oriented x 4, face symmetric, moves upper extremities well, significant bilateral lower extremity weakness Psych: Normal affect and behavior Results & Data Results & Data Vital Signs (Past 12 Hours) Vital Signs Temp Pulse Pulse Pulse Resp BP BP 06/13/25 16:00 36.8 C 74 18 107/57 L 06/13/25 14:56 67 06/13/25 11:25 36.7 C 79 16 107/57 L 06/13/25 10:42 73 06/13/25 08:12 36.7 C 89 18 151/73 H Pulse Ox O2 Del Method 06/13/25 16:00 97 Room Air 06/13/25 14:56 06/13/25 11:25 97 Room Air 06/13/25 10:42 06/13/25 08:12 96 Room Air Laboratory Results 06/13/25 07:01 06/13/25 07:01 microbiology: Urine culture with multiple mixed organisms, culture and sensitivity not submitted. Blood cultures 1 out of 4 positive for E. coli by molecular assay PG Care Time/CCT Total # of Minutes Spent Total Time Spent with Patient: Total time spent is greater than 50% in coordination of care (as documented) at patient's floor/unit and/or counseling patient: Coding Level of Care Code 57131 SUB INP/OBS CARE 2MIN Diagnoses Catheter-associated urinary tract infection T83.511A; N39.0 Encounter type: initial encounter Indwelling urinary catheter type: indwelling urethral catheter E coli bacteremia R78.81; B96.20 Atrial fibrillation I48.91 Atrial fibrillation type: unspecified Diabetes E11.9 (1) Catheter-associated urinary tract infection Encounter type: initial encounter Indwelling urinary catheter type: i ndwelling urethral catheter Qualified Code(s): T83.511A - Infection and inflammatory reaction due to indwelling urethral catheter, initial encounter; N39.0 - Urinary tract infection, site not specified (3) Atrial fibrillation Atrial fibrillation type: unspecified Qualified Code(s): I48.91 - Unspecified atrial fibrillation
[2025-06-14 08:07] LABS: Hematocrit (blood only) 31.1 % (37.0-47.0); Hemoglobin 9.5 g/dl (12.0-16.0); Mean Corpuscular Hemoglobin 27.0 pg (25.0-34.0); Mean Corpuscular Volume 88.4 fL (80.0-100.0); Platelet Count 283 K/uL (130-400); RDW Standard Deviation 54.3 fL (36.4-46.3); Red Blood Count 3.52 M/uL (4.20-5.40); White Blood Count 7.03 K/ul (4.8-10.8)
[2025-06-14 08:24] LABS: Anion Gap 5.0 (3-11); Blood Urea Nitrogen 10.0 mg/dl (6-23); Calcium 8.4 mg/dl (8.6-10.3); Carbon Dioxide 30.0 mmol/L (21-32); Chloride 108.0 mmol/L (98-107); Creatinine Clr Calc Pharmacy 93.6 ml/min; Glucose 99.0 mg/dl (70-99(Fasting)); Potassium 3.7 mmol/L (3.5-5.1); Sodium 143.0 mmol/L (136-145)
--- NOTE | 2025-06-14 17:54 | Hospitalist Progress Note ---
Date of Service June 14, 2025 Assessment & Plan (1) Catheter-associated urinary tract infection: (2) E coli bacteremia: (3) Atrial fibrillation: (4) Diabetes: Plan 79-year-old woman with bilateral ureteral stents and Osorio catheter admitted with complicated UTI/catheter associated UTI # sepsis due to complicated/catheter associated UTI. bilateral ureteral stents also in place with some decrease in hydronephrosis on current imaging. Nephrolithiasis. # E. coli bacteremia related to the urinary tract infection - reviewed recommendations in urology note they do not recommend changing of stents at this point. Stents changed in April and are of a type which should not require frequent changes - continue vibegron and tamsulosin - antibiotics were narrowed from pip-tazo to ceftriaxone based on current cultures. will need 10-14 days of treatment. plan to DC tomorrow on high dose augmentin since R to cipro, probiotic # atrial fibrillation Continue apixaban, metoprolol, this is stable #recent right ankle injury - reviewed x-ray there is some soft tissue swelling about the ankle but no acute fracture or dislocation - monitor left hip may be her positioning but appeared externally rotated and foreshortened on exam, obtain hip x-ray if indicated #Atrial fibrillation patient is maintained on metoprolol therapy. Eliquis resumed. She typically takes risk reduction medications including atorvastatin. She is not typically on aspirin a day. #Depression patient takes mirtazapine twice a day for depression at higher doses. # functional paraplegia - she reports she has not been ambulatory in quite some time, recently she was evaluated for left hip fracture but she says no fracture was present - recently has not even been able to transfer independently into wheelchair - resident of [facility], anticipate return there DVT prophylaxis: Apixaban suitable for discharge tomorow, discussed with care coord Admission and Anticipated Discharge Date Admission Date: June 11, 2025 Subjective The patient consented to use of [employer], an AI based tool that will listen to our encounter and draft a clinical note based on our conversation. All notes will be reviewed and edited by me before entering them into the clinical record. Reason for Admit: Urinary Tract Infection. Patient reports side pain due to repositioning, backache, no abdominal discomfort, normal breathing, no chest pain, fever, or chills. On methenamine. Urologist suggested stent continuation and removal later. 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 Experiences lightheadedness when turning head. History of stomach (pannus) lymphedema. Previously took Augmentin, notes irregular bowel movements, often leading to constipation. Physical Exam 2 Physical Exam: General Appearance: Comfortable and fairly well. Vital signs: Within normal limits. HEENT: Within normal limits. Respiratory: Clear lungs. Cardiovascular: Regular heart, no murmurs. Gastrointestinal: Good bowel sounds, soft and nontender. Extremities: Warm, well perfused legs, no edema. Skin: Warm and dry, no rash. Neurological: Alert and oriented x4, moves all extremities, sheila LE weakness Psychiatric: Normal. Results & Data Results & Data Vital Signs (Past 12 Hours) Vital Signs Temp Pulse Resp BP Pulse Ox O2 Del Method 06/14/25 15:32 36.6 C 72 18 116/58 L 93 Room Air 06/14/25 11:15 36.9 C 67 18 136/63 95 Room Air 06/14/25 07:41 36.8 C 74 19 137/60 94 Room Air Laboratory Results - Labs: - Urine culture: multiple orgs - Blood culture: E. coli - S to ceftriaxone etc, R to cipro/Lq 06/14/25 06:57 06/14/25 06:57 PG Care Time/CCT Total # of Minutes Spent Total Time Spent with Patient: Total time spent is greater than 50% in coordination of care (as documented) at patient's floor/unit and/or counseling patient: Coding Level of Care Code 84642 SUB INP/OBS CARE 2/35MIN Diagnoses Catheter-associated urinary tract infection T83.511A; N39.0 Encounter type: initial encounter Indwelling urinary catheter type: indwelling urethral catheter E coli bacteremia R78.81; B96.20 Atrial fibrillation I48.91 Atrial fibrillation type: unspecified Diabetes E11.9 (1) Catheter-associated urinary tract infection Encounter type: initial encounter Indwelling urinary catheter type: i ndwelling urethral catheter Qualified Code(s): T83.511A - Infection and inflammatory reaction due to indwelling urethral catheter, initial encounter; N39.0 - Urinary tract infection, site not specified (3) Atrial fibrillation Atrial fibrillation type: unspecified Qualified Code(s): I48.91 - Unspecified atrial fibrillation
[2025-06-14] MEDS: SENNA 8.6 MG TAB PO PRN (22:06)
[2025-06-15 07:16] LABS: Hematocrit (blood only) 31.7 % (37.0-47.0); Hemoglobin 9.3 g/dl (12.0-16.0); Mean Corpuscular Hemoglobin 26.3 pg (25.0-34.0); Mean Corpuscular Volume 89.5 fL (80.0-100.0); Platelet Count 289 K/uL (130-400); RDW Standard Deviation 54.8 fL (36.4-46.3); Red Blood Count 3.54 M/uL (4.20-5.40); White Blood Count 6.78 K/ul (4.8-10.8)
[2025-06-15 07:33] LABS: Anion Gap 4.0 (3-11); Blood Urea Nitrogen 15.0 mg/dl (6-23); Calcium 8.5 mg/dl (8.6-10.3); Carbon Dioxide 30.0 mmol/L (21-32); Chloride 108.0 mmol/L (98-107); Creatinine Clr Calc Pharmacy 81.2 ml/min; Glucose 101.0 mg/dl (70-99(Fasting)); Potassium 3.9 mmol/L (3.5-5.1); Sodium 142.0 mmol/L (136-145)
--- NOTE | 2025-06-15 18:16 | Hospitalist Progress Note ---
Date of Service June 15, 2025 Assessment & Plan (1) Catheter-associated urinary tract infection: (2) E coli bacteremia: (3) Atrial fibrillation: (4) Diabetes: Plan 79-year-old woman with bilateral ureteral stents and Cobb catheter admitted with complicated UTI/catheter associated UTI # sepsis due to complicated/catheter associated UTI. bilateral ureteral stents also in place with some decrease in hydronephrosis on current imaging. Nephrolithiasis. # E. coli bacteremia related to the urinary tract infection - reviewed recommendations in urology note they do not recommend changing of stents at this point. Stents changed in April and are of a type which should not require frequent changes - continue vibegron and tamsulosin - antibiotics were narrowed from pip-tazo to ceftriaxone based on current cultures. - plan was for DC to [facility] today, however, deferring because of new hematuria setting of anticoagulation. Mild however, suspect cobb trauma and will resolve, try to continue apixaban. No clots present # atrial fibrillation Continue apixaban, metoprolol, this is stable #recent right ankle injury - ankle x-ray: there is some soft tissue swelling about the ankle but no acute fracture or dislocation #Atrial fibrillation patient is maintained on metoprolol therapy. Eliquis continued. She typically takes risk reduction medications including atorvastatin. #Depression patient takes mirtazapine twice a day for depression at higher doses. # functional paraplegia - she reports she has not been ambulatory in quite some time, recently she was evaluated for left hip fracture but she says no fracture was present - recently has not even been able to transfer independently into wheelchair - resident of [facility], anticipate return there DVT prophylaxis: Apixaban Admission and Anticipated Discharge Date Admission Date: June 11, 2025 Subjective Feels pretty much at baseline today. Had some hematuria new this AM. Cant recall cobb trauma. Not having bladder pain. No clots in urine Physical Exam 2 Physical Exam: General Appearance: Comfortable and fairly well. Vital signs: Within normal limits. HEENT: Within normal limits. Respiratory: Clear lungs. Cardiovascular: Regular heart, no murmurs. Gastrointestinal: Good bowel sounds, soft and nontender. Extremities: Warm, well perfused legs, no edema. Skin: Warm and dry, no rash. : light pink/transparent urine in cobb bag without clots, urine in tubing appears even clearer Neurological: Alert and oriented x4, moves all extremities, sheila LE weakness Psychiatric: Normal. Results & Data Results & Data Vital Signs (Past 12 Hours) Vital Signs Temp Pulse Pulse Resp BP BP Pulse Ox 06/15/25 15:58 36.7 C 67 16 126/72 96 06/15/25 14:16 67 06/15/25 11:31 36.9 C 105 H 18 159/63 H 95 06/15/25 08:26 69 06/15/25 07:41 36.8 C 69 18 155/84 H 95 O2 Del Method 06/15/25 15:58 Room Air 06/15/25 14:16 06/15/25 11:31 Room Air 06/15/25 08:26 06/15/25 07:41 Room Air Laboratory Results 06/15/25 06:08 06/15/25 06:08 PG Care Time/CCT Total # of Minutes Spent Total Time Spent with Patient: Total time spent is greater than 50% in coordination of care (as documented) at patient's floor/unit and/or counseling patient: Coding Level of Care Code 24556 SUB INP/OBS CARE 2/35MIN Diagnoses Catheter-associated urinary tract infection T83.511A; N39.0 Encounter type: initial encounter Indwelling urinary catheter type: indwelling urethral catheter E coli bacteremia R78.81; B96.20 Atrial fibrillation I48.91 Atrial fibrillation type: unspecified Diabetes E11.9 (1) Catheter-associated urinary tract infection Encounter type: initial encounter Indwelling urinary catheter type: i ndwelling urethral catheter Qualified Code(s): T83.511A - Infection and inflammatory reaction due to indwelling urethral catheter, initial encounter; N39.0 - Urinary tract infection, site not specified (3) Atrial fibrillation Atrial fibrillation type: unspecified Qualified Code(s): I48.91 - Unspecified atrial fibrillation
[2025-06-16] MEDS ORDERED: ERGOCALCIFEROL 1250 MCG (50,000 UNITS) CAP PO SCH (09:00)
[2025-06-16] MEDS: ADVANCED PROBIOTIC 625 MG CAPSULE PO SCH (09:11)
--- NOTE | 2025-06-16 16:02 | Hospitalist Progress Note ---
Date of Service June 16, 2025 Assessment & Plan (1) Catheter-associated urinary tract infection: (2) E coli bacteremia: (3) Atrial fibrillation: (4) Diabetes: Plan 79-year-old woman with bilateral ureteral stents and Cobb catheter admitted with complicated UTI/catheter associated UTI # sepsis due to complicated/catheter associated UTI causing low-grade E. coli bacteremia. bilateral ureteral stents also in place with some decrease in hydronephrosis on current imaging. Nephrolithiasis. # E. coli bacteremia related to the urinary tract infection - urologist did not recommend changing of stents at this point. Stents changed in April and are of a type which should not require frequent changes - continue vibegron and tamsulosin - antibiotics were narrowed from pip-tazo to ceftriaxone based on current cultures - continue. Today is day 6 of IV abx. 7 days is recommended duration for complicated UTI and uncomplicated gram negative bacteremia. - hematuria 06/15 resolved - probably minor cobb trauma - DC to [facility] - can't take on weekend # atrial fibrillation Continue apixaban, metoprolol, this is stable #recent right ankle injury - ankle x-ray: there is some soft tissue swelling about the ankle but no acute fracture or dislocation #Atrial fibrillation patient is maintained on metoprolol therapy. Eliquis continued. She typically takes risk reduction medications including atorvastatin. #Depression patient takes mirtazapine twice a day for depression at higher doses. # functional paraplegia - she reports she has not been ambulatory in quite some time, recently she was evaluated for left hip fracture but she says no fracture was present - recently has not even been able to transfer independently into wheelchair - resident of [facility], anticipate return there DVT prophylaxis: Apixaban Admission and Anticipated Discharge Date Admission Date: June 11, 2025 Subjective buttock pain from sacral ulcer hurts when pushing to have a BM has IBS sometimes constipated sometimes hard Physical Exam 2 Physical Exam: General Appearance: Comfortable and fairly well. Vital signs: Within normal limits. HEENT: Within normal limits. Respiratory: normal WOB Cardiovascular: Gastrointestinal: Extremities: Warm, well perfused legs, no edema. Skin: Warm and dry, no rash. : clear yellow urine in cobb bag and tubing Neurological: Alert and oriented x4, moves all extremities, sheila LE weakness Psychiatric: Normal. Results & Data Results & Data Vital Signs (Past 12 Hours) Vital Signs Temp Pulse Resp BP Pulse Ox O2 Del Method 06/16/25 14:44 Room Air 06/16/25 14:22 36.7 C 74 16 147/79 H 95 Room Air 06/16/25 07:39 Room Air 06/16/25 07:28 36.7 C 63 18 125/76 94 Room Air Laboratory Results 06/15/25 06:08 06/15/25 06:08 PG Care Time/CCT Total # of Minutes Spent Total Time Spent with Patient: Total time spent is greater than 50% in coordination of care (as documented) at patient's floor/unit and/or counseling patient: Coding Level of Care Code 14788 SUB INP/OBS CARE 235MIN Diagnoses Catheter-associated urinary tract infection T83.511A; N39.0 Encounter type: initial encounter Indwelling urinary catheter type: indwelling urethral catheter E coli bacteremia R78.81; B96.20 Atrial fibrillation I48.91 Atrial fibrillation type: unspecified Diabetes E11.9 (1) Catheter-associated urinary tract infection Encounter type: initial encounter Indwelling urinary catheter type: i ndwelling urethral catheter Qualified Code(s): T83.511A - Infection and inflammatory reaction due to indwelling urethral catheter, initial encounter; N39.0 - Urinary tract infection, site not specified (3) Atrial fibrillation Atrial fibrillation type: unspecified Qualified Code(s): I48.91 - Unspecified atrial fibrillation
[2025-06-17] MEDS: POLYETHYLENE (MIRALAX) 17 GM PACK PO SCH (09:21)
[2025-06-17 15:28] VITALS: RESP 16
--- NOTE | 2025-06-17 17:49 | Hospitalist Progress Note ---
Date of Service June 17, 2025 Assessment & Plan (1) Catheter-associated urinary tract infection: (2) E coli bacteremia: (3) Atrial fibrillation: (4) Diabetes: Plan 79-year-old woman with bilateral ureteral stents and Cobb catheter admitted with complicated UTI/catheter associated UTI # sepsis due to complicated/catheter associated UTI causing low-grade E. coli bacteremia. bilateral ureteral stents also in place with some decrease in hydronephrosis on current imaging. Nephrolithiasis. # E. coli bacteremia related to the urinary tract infection - urologist did not recommend changing of stents at this point. Stents changed in April and are of a type which should not require frequent changes - continue vibegron and tamsulosin - antibiotics were narrowed from pip-tazo to ceftriaxone based on current cultures - continue. Today is day 6 of IV abx. 7 days is recommended duration for complicated UTI and uncomplicated gram negative bacteremia. - hematuria 06/15 resolved - probably minor cobb trauma - DC to [facility] - can't take on weekend # atrial fibrillation Continue apixaban, metoprolol, this is stable #recent right ankle injury - ankle x-ray: there is some soft tissue swelling about the ankle but no acute fracture or dislocation #Atrial fibrillation patient is maintained on metoprolol therapy. Eliquis continued. She typically takes risk reduction medications including atorvastatin. #Depression patient takes mirtazapine twice a day for depression at higher doses. # functional paraplegia - she reports she has not been ambulatory in quite some time, recently she was evaluated for left hip fracture but she says no fracture was present - recently has not even been able to transfer independently into wheelchair - resident of [facility], anticipate return there DVT prophylaxis: Apixaban Admission and Anticipated Discharge Date Admission Date: June 11, 2025 Subjective Doing fine, back hurting currently. No hematuria Physical Exam 2 Physical Exam: General Appearance: Comfortable and fairly well. Vital signs: Within normal limits. HEENT: Within normal limits. Respiratory: normal WOB Cardiovascular: reg no mrg Gastrointestinal: nd Extremities: Warm, well perfused legs, no edema. Skin: Warm and dry, no rash. : clear yellow urine in cobb bag and tubing - no hematuria Neurological: Alert and oriented x4, moves all extremities, sheila LE weakness Psychiatric: Normal. Results & Data Results & Data Vital Signs (Past 12 Hours) Vital Signs Temp Pulse Resp BP BP Pulse Ox O2 Del Method 06/17/25 15:27 36.9 C 77 16 105/64 94 Room Air 06/17/25 08:01 36.8 C 63 18 104/46 L 106/55 L 95 Room Air Laboratory Results 06/15/25 06:08 06/15/25 06:08 PG Care Time/CCT Total # of Minutes Spent Total Time Spent with Patient: Total time spent is greater than 50% in coordination of care (as documented) at patient's floor/unit and/or counseling patient: Coding Level of Care Code 30649 SUB INP/OBS CARE 2/35MIN Diagnoses Catheter-associated urinary tract infection T83.511A; N39.0 Encounter type: initial encounter Indwelling urinary catheter type: indwelling urethral catheter E coli bacteremia R78.81; B96.20 Atrial fibrillation I48.91 Atrial fibrillation type: unspecified Diabetes E11.9 (1) Catheter-associated urinary tract infection Encounter type: initial encounter Indwelling urinary catheter type: i ndwelling urethral catheter Qualified Code(s): T83.511A - Infection and inflammatory reaction due to indwelling urethral catheter, initial encounter; N39.0 - Urinary tract infection, site not specified (3) Atrial fibrillation Atrial fibrillation type: unspecified Qualified Code(s): I48.91 - Unspecified atrial fibrillation
[2025-06-17 23:25] VITALS: TEMP 98.1
[2025-06-18 07:45] VITALS: BP 107/58; PULSE 70; O2SAT 95
--- NOTE | 2025-06-18 09:07 | Discharge Summary ---
Discharge Summary Date of Service June 18, 2025 Principal Dx & Hospital Course #1 = Principal Diagnosis (1) Catheter-associated urinary tract infection: (2) E coli bacteremia: (3) Atrial fibrillation: (4) Diabetes: Plan 79-year-old woman with bilateral ureteral stents and Cobb catheter admitted with complicated UTI/catheter associated UTI # sepsis due to complicated/catheter associated UTI causing low-grade E. coli bacteremia. bilateral ureteral stents also in place with some decrease in hydronephrosis on current imaging. Nephrolithiasis. # E. coli bacteremia related to the urinary tract infection - urologist did not recommend changing of stents at this point. Stents changed in April and are of a type which should not require frequent changes - continue vibegron and tamsulosin - antibiotics were narrowed from pip-tazo to ceftriaxone based on cultures. 7 days is recommended duration for complicated UTI and uncomplicated gram negative bacteremia. Completed antibiotics in hospital. - hematuria 06/15 resolved - probably minor cobb trauma - DC to [facility] # atrial fibrillation Continue apixaban, metoprolol, this is stable #recent right ankle injury - ankle x-ray: there is some soft tissue swelling about the ankle but no acute fracture or dislocation - ankle exam unremarkable #Atrial fibrillation patient is maintained on metoprolol therapy. Eliquis continued. She typically takes risk reduction medications including atorvastatin. #Depression patient takes mirtazapine twice a day for depression at higher doses. # functional paraplegia - she reports she has not been ambulatory in quite some time, recently she was evaluated for left hip fracture but she says no fracture was present - recently has not even been able to transfer independently into wheelchair - resident of [facility] Admission HPI Per Admitting Provider 79-year-old female with chronic bilateral ureteral stents and chronic Cobb catheter who Romana presents to our facility with concern for sepsis from a urinary source with PET associated with long-term indwelling urinary catheter. She was discharged to our facility April 25, 2025 where she had an E. coli septicemia episode associated with this. Blood cultures were also positive for strep vaginosis and Staph hominis. Urine culture was also positive at that time with Proteus Enterococcus. Patient had ureteral stent exchange and Cobb catheter exchange with urology initially treated with Zosyn at that time changed to Augmentin at time of discharge completing a course till 29 April. Patient states she began noticing a strong smell urine about 2 days prior to presentation. She lives at a personal-alf. She then developed fevers and chills this morning and felt profoundly weak. In the emergency department despite volume resuscitation she still has lower blood pressures. Lactic acid has been normal. Patient is blood and urine cultures obtained catheter exchanged and Zosyn initiated in the emergency department. Patient also relates a recent issue with her right ankle where she feels she may have injured it it is slightly swollen she request an x-ray. Discharge Exam General Appearance: Comfortable and fairly well. Vital signs: Within normal limits. exam unchanged 06/18 HEENT: Within normal limits. Respiratory: normal WOB Cardiovascular: reg no mrg Gastrointestinal: nd Extremities: Warm, well perfused legs, no edema. Skin: Warm and dry, no rash. : clear yellow urine in cobb bag and tubing - no hematuria Neurological: Alert and oriented x4, moves all extremities, sheila LE weakness Psychiatric: Normal. Discharge Plan Discharge Items Patient Disposition: Personal [facility] Reason For Visit: SEPIS UNRINARY SOURCE, CHRONIC URINARY CATHETER Discharge Diagnosis: Sepsis due to CAUTI Condition on Discharge: Good Activity: Resume your previous activity Non-emergency contact: Primary Care Provider and Urologist Call non-emergency contact if: you have any medication questions and your symptoms worsen Follow-up/Referrals: Pavan Mckeon MD [Primary Care Provider] - Diet: Carb Consistent or DM2 and Heart Healthy Addtl Attending Provider Instructions: Please schedule follow up with Dr. Thorpe for ongoing urology care, regular stent exchanges etc Completed antibiotics for E. coli CAUTI and low grade bacteremia while in hospital. Last dose of ceftriaxone 06/17 Cobb catheter changed at admission, chronic urinary catheter - continue Pending Studies at Discharge: No Stand-Alone Forms: My Sidecar, Smoking Cessation Skilled Items Patient informed of condition?: Yes DNR: Yes Discharge Level of Care: Other Communicable Disease: No Discharge Prognosis: Stable Lines: None Urinary Catheter: Yes Medications and DC Order Prescriptions: New polyethylene glycol 3350 [Miralax] 17 gram Powder In Packet 17 g PO DAILY Qty: 0 0RF tamsulosin 0.4 mg Capsule 0.4 mg PO HS Qty: 0 0RF Continued water for irrigation, sterile [Curity Sterile Water] Solution 1 irrig irrigation DAILY PRN (Reason: catheter occlusion) Qty: 6000 2RF Gemtesa 75 mg tablet 75 mg PO DAILY Qty: 30 2RF atorvastatin 80 mg tablet 80 mg PO HS acetaminophen [Tylenol Extra Strength] 500 mg Tablet 500 mg PO Q6H MDD 3gmAPAP/24hrs PRN (Reason: Fever Or Pain) Eliquis 5 mg tablet 5 mg PO AMHS docusate sodium [Colace] 100 mg Capsule 200 mg PO HS sennosides [senna] 8.6 mg Tablet 17.2 mg PO HS PRN (Reason: Constipation) metoprolol succinate 25 mg Tablet Extended Release 24 Hr 25 mg PO AMHS Qty: 60 0RF spironolactone 25 mg tablet 25 mg PO QAM methenamine hippurate 1 gram tablet 1 g PO BID folic acid 1 mg Tablet 1 mg PO QAM mirtazapine 7.5 mg tablet 7.5 mg PO BID Rx Instructions: Take w/ 15mg to equal 22.5mg by mouth twice daily miconazole nitrate [Desenex] 2 % powder 1 applic EXT DAILY PRN (Reason: rash) cyanocobalamin (vitamin B-12) 500 mcg Tablet 1,000 mcg PO QAM Qty: 60 0RF meclizine 25 mg Tablet 25 mg PO BID Qty: 60 0RF mirtazapine 15 mg tablet 15 mg PO BID Qty: 30 0RF Rx Instructions: Take w/ 7.5mg to equal 22.5mg by mouth twice daily oxycodone 5 mg Tablet 5 mg PO Q4H PRN (Reason: pain) Qty: 10 0RF ferrous sulfate 325 mg (65 mg iron) Tablet,Delayed Release (Dr/Ec) 325 mg PO Q OTHER DAY Patient Comments: in am ascorbic acid (vitamin C) [Vitamin C] 500 mg Tablet 500 mg PO BID zinc oxide 20 % Ointment 1 applic TOPICAL BID cranberry extract [Cranberry Concentrate] 500 mg Capsule 500 mg PO QAM Rx Instructions: administer with meals Saccharomyces boulardii [Florastor] 250 mg Capsule 250 mg PO QAM diclofenac sodium [Voltaren Arthritis Pain] 1 % gel 2 g EXT QID Held ergocalciferol (vitamin D2) [Vitamin D2] 1,250 mcg (50,000 unit) Capsule 0 mcg PO WK Hold Instructions: defer to primary care to clarify whether she is still on this dose at home. unclear on med rec Patient Comments: 06/11-not on faxed med list Rx Instructions: Saturdays Discharge Orders: Discharge Order (Routine); Ordered 06/18/25 Ordered By: Akilah Parrish Admission Data Admit Date/Time: 06/11/25 17:29 Attending Provider: Akilah Parrish Admit Provider: Robert Landon Primary Care Provider: Pavan Mckeon Other Providers: Jana Centeno; [facility]; [facility]; Robert Landon; Darinel Thorpe Other Interventions: Discharge Summary Assessment (RN) Last Done: 06/18/25 11:46 Hospital Stay Data Consultations 06/11/25 17:17 ED Decision to Admit Stat 06/11/25 19:37 Consult Urology Routine Diagnostic Imagining Performed 06/11/25 15:04 CT abd pelvis IV con only Stat CT head/brain wo con Stat Pending Results Patient Have Any Pending Studies at Discharge: No Discharge Instructions Given to Patient (Per Discharging Provider) Please schedule follow up with Dr. Thorpe for ongoing urology care, regular stent exchanges etc Completed antibiotics for E. coli CAUTI and low grade bacteremia while in hospital. Last dose of ceftriaxone 06/17 Cobb catheter changed at admission, chronic urinary catheter - continue Total Time Total Time Spent Total Time Spent (In Minutes): I personally spent: 40 minutes today on clinical care activities including: reviewing chart notes and vital signs examining and counseling the patient writing orders, med recon, discharge instructions documentation Coding Level of Care Code 68829 INP/OBS DISCH >30 MIN Diagnoses Catheter-associated urinary tract infection T83.511A; N39.0 Encounter type: initial encounter Indwelling urinary catheter type: indwelling urethral catheter E coli bacteremia R78.81; B96.20 Atrial fibrillation I48.91 Atrial fibrillation type: unspecified Diabetes E11.9
[2025-06-18] MEDS: ERGOCALCIFEROL 1250 MCG (50,000 UNITS) CAP PO SCH (12:06)
[2025-06-18] MEDS: INFLUENZA VACC TS2025-26(65y+)/PF (IIV3) 0.5mL Syr IM ONE (12:11)
== END 2025-06-18 13:06 | disposition home or self-care (01) | DRG 698 ==
LOC: ED 13:23 → SUATTDRO 17:29 → 2S 17:29 → 3N 06-16 14:13

== ENCOUNTER 2025-08-29 10:00 | Inpatient (IN) ==
[2025-08-29 10:58] LABS: Hematocrit (blood only) 36.6 % (37.0-47.0); Hemoglobin 11.4 g/dL (12.0-16.0); Immature Granulocytes # (auto) 0.04 K/uL (0.01-0.20); Immature Granulocytes % (auto) 0.4 %; Mean Corpuscular Hemoglobin 26.9 pg (25.0-34.0); Mean Corpuscular Volume 86.3 fL (80.0-100.0); Platelet Count 281 K/uL (130-400); RDW Standard Deviation 53.1 fL (36.4-46.3); Red Blood Count 4.24 M/uL (4.20-5.40); White Blood Count 9.05 K/ul (4.8-10.8)
[2025-08-29 11:16] LABS: Alanine Aminotransferase 13.0 U/L (7-52); Albumin Globulin Ratio 0.7 (0.9-2); Albumin Level 2.7 gm/dl (3.4-5.0); Alkaline Phosphatase 102.0 U/L (34-104); Anion Gap 8.0 (3-11); Bilirubin,Total 0.8 mg/dl (0.2-1.0); Blood Urea Nitrogen 14.0 mg/dl (6-23); Calcium 9.0 mg/dl (8.6-10.3); Carbon Dioxide 28.0 mmol/L (21-32); Chloride 104.0 mmol/L (98-107); Creatinine Clr Calc Pharmacy 113.7 ml/min; Globulin 4.1 gm/dl (2.5-4.0); Glucose 130.0 mg/dl (70-99(Fasting)); Magnesium 1.9 mg/dl (1.7-2.4); Potassium 3.4 mmol/L (3.5-5.1); Sodium 140.0 mmol/L (136-145); Total Protein 6.8 gm/dl (6.0-8.3)
[2025-08-29 11:34] LABS: Appearance Urine Turbid (Clear)
[2025-08-29 11:35] LABS: WBC Urine Automated >50 /hpf (0-5)
[2025-08-29 11:36] LABS: Bacteria Urine Automated 3+ (Negative); Cast Urine Automated 0-2 /lpf (0-5); Epithelial Cell Urine Auto 0-2 /lpf (0-5)
[2025-08-29 11:38] LABS: INR 1.3 (0.9-1.1); Partial Thromboplastin Time 35 Seconds (21-31); Prothrombin Time 14.0 Seconds (9.0-12.0)
--- NOTE | 2025-08-29 12:14 | Emergency Department Note ---
Impression & Plan Acute dyspnea, Acute hypoxemic respiratory failure, Acute viral syndrome, Catheter-associated urinary tract infection ED Provider Note HISTORY OF PRESENT ILLNESS: Patient is a 80-year-old female presenting with cough and hematuria. Patient presents from [place]. She reportedly has recurrent UTIs and states that she started having some hematuria over the last few days, which is normally indicative that she has a UTI. She has a chronic indwelling Cobb. She states she is bedbound at her facility. She reports that she has been having a coarse, nonproductive cough over the last few days. She does not wear any supplemental oxygen at baseline. She denies any chest pain or abdominal pain. Denies any nausea or vomiting. She reports that there have been multiple recent sick contacts at her care facility. Denies any DVT or PE history. She is on Eliquis. Denies any recent antibiotic use. ROS: as above PHYSICAL EXAM: Constitutional: Patient appears in no acute distress. HENT: Head: Normocephalic and atraumatic. Eyes: EOMI, PERRL Mouth/Throat: Mucous membranes moist. Neck: Trachea midline. Neck supple. Cardiovascular: RRR, No murmurs, rubs or gallops. Intact distal pulses. Pulmonary/Chest: No respiratory distress. Breath sounds clear and equal bilaterally. Coarse breath sounds bilaterally. Patient on 2 L nasal cannula. Abdominal: Abdomen soft, no tenderness, rebound or guarding. Musculoskeletal: No edema, tenderness or deformity noted. Skin: Warm and dry. No rash, erythema, pallor or cyanosis Psychiatric: Appropriate mood and affect for situation. Neurological: Alert and keenly responsive. CN II-XII grossly intact MDM: - Vitals signs showed hypertension, tachycardia and hypoxia. Patient placed on 2 L nasal cannula. - History obtained via patient. History as above. - Chronic conditions affecting care: chronic cobb catheter; Afib; morbid obesity; HLD; HTN - Differential diagnoses include, but are not limited to: Congestive heart failure; acute coronary syndrome; COPD/asthma exacerbation; pulmonary edema; pulmonary embolism; pneumonia; pneumothorax; viral syndrome - Order placed for continuous cardiac monitoring. At this time, monitor showed rate of 88 bpm with irregular rhythm, per my interpretation. - External medical records reviewed. Urology telephone note dated 08/21/2025 was reviewed. A urine was sent because the patient has a history of frequent UTIs. Per documentation, plan was for catheter exchange at her next visit. - EKG image interpreted by myself showed atrial fibrillation. Rate tachycardic at 109 bpm. QT 318. No acute ischemic changes. - Laboratory workup interpreted by myself showed normal WBC; elevated INR (1.3); slight hypokalemia (K 3.4); normal troponin; normal procalcitonin; normal lactic acid - Blood cultures obtained - UA obtained shows bacteria, but no significant WBCs. However, patient has grown Pseudomonas and Enterococcus faecalis on previous urine cultures that have been resistant to multiple antibiotic. Given IV ciprofloxacin - CXR image reviewed interpreted by myself negative for pneumonia, per my interpretation. - COVID/flu/RSV negative - Discussion was had with field case manager about patient's case and need for admission - Hospitalist consulted for admission - Patient admitted to [facility] service for further evaluation and management. ASSESSMENT AND PLAN: Diagnosis: Acute dyspnea; acute hypoxic respiratory failure; acute viral syndrome; catheter associated UTI Plan: Admit Past Med/Surg History Problem List (Updated 08/29/25 @ 13:32 by Karli Chicas MD) Catheter-associated urinary tract infection (Acute) Acute viral syndrome (Acute) Acute hypoxemic respiratory failure (Acute) Acute dyspnea (Acute) Diabetes E coli bacteremia Paroxysmal atrial fibrillation (Acute) Depression Tinea corporis Hypoalbuminemia (Acute) Catheter-associated urinary tract infection (Acute) Enterococcal bacteremia Urinary retention Morbid obesity Atrial fibrillation (Acute) Deep vein thrombosis Hyperlipidemia Asthma Osteoarthritis of knees, bilateral Chronic GERD Medical History E. coli septicemia Hydronephrosis Nephrolithiasis Recurrent UTI Chronic indwelling Cobb catheter Ureteral stent present Hypertension History of DVT (deep vein thrombosis) PAF (paroxysmal atrial fibrillation) Obesity Pulmonary hypertension moderate per 06/2023 ECHO (PASP 47mmHg) Skin breakdown sacral skin breakdown per 06/2024 hospitalization; pt to follow with wound care at [facility] 2 or more hospital admissions in past 6 months admitted [facility] 06/08-06/15/24: dx: complicated UTI, chronic indwelling cobb catheter, calculus of L kidney, b/l hydronephrosis. admitted [facility] 06/26- 06/30/24: dx: infection associated with indwelling uteretal stent, hematuria, acute L flank pain: pt D/C on Cefdinir (pt also noted to have sacral skin area breakdown during admission and pt to f/u with wound care at [facility]) History of anemia History of posterior vitreous detachment B/L History of asthma "Well controlled" Chronic indwelling Cobb catheter Hydronephrosis of left kidney Diabetes mellitus, type II Diet controlled Overactive bladder HTN (hypertension) GERD (gastroesophageal reflux disease) Hyperlipidemia Hx of vertigo Hx of cancer of uterus 2013- radiation Hx pulmonary embolism Remote hx years ago In setting of prolonged sitting/immobility during a previous hospitalization per records Urinary retention Cobb cath in place History of home oxygen therapy not currently [facility] resident Resides at [facility] Nontoxic thyroid nodule Hx: UTI (urinary tract infection) Recurrent Hx of sepsis Lipodermatosclerosis Chronic bronchitis 'Bronchial asthma' Acquired lymphedema "Stomach" Gets therapy/massage to manage > was complication after radiation treatment per previous PAT RN notation IBS (irritable bowel syndrome) Surgical History History of anesthesia reaction Awareness with D&C and colonoscopy History of open reduction and internal fixation (ORIF) procedure (06/2023) left femur fx Hx of cystoscopy Multiple; most recent: 04/13/24: MAC without issue History of cataract surgery (2020) R/L History of dilatation and curettage History of esophagogastroduodenoscopy (EGD) History of colonoscopy History of bilateral tubal ligation History of cholecystectomy Hx of hernia repair (12/2017) Ventral hernia with mesh History of tooth extraction History of cardiac cath (02/18/11) @ [facility]--No stents Family History Other No family history of adverse response to anesthesia Social History Smoking Status: Never smoker Second Hand Exposure: No; Do You Dip or Chew Tobacco: No; Hx Alcohol Use: No Hx Substance Use: No Preferred Language: Belarusian Communication Ability: Effective Communication Ability Comment: alert and oriented x3 - of sound mind to sign consent Visual Impairment: No Limitations Tabular Typist Required: No Beliefs That Will Affect Care: None Current Living Situation: Custodial Current Living Situation Comment: [facility] Feels Safe at Home: Yes Assistive Devices: Walker and Wheelchair Allergies Allergies Allergy/AdvReac Type Severity Reaction Status Date / Time doxycycline Allergy Intermediate Swelling Verified 08/29/25 13:06 tetracycline Allergy Mild Eye Verified 08/29/25 13:06 swelling codeine Allergy Unknown Unknown - Verified 08/29/25 13:06 On file connie/ [place] of [place] NARINDER Inhibitors AdvReac Intermediate Cough Verified 08/29/25 13:06 Sulfa (Sulfonamide AdvReac Mild Gastrointestinal Verified 08/29/25 13:06 Antibiotics) Upset Home Meds Home Medications Medication Instructions Recorded Confirmed acetaminophen 500 mg tablet 500 mg PO Q6H PRN Fever Or Pain 06/28/23 08/29/25 (Tylenol Extra Strength) apixaban 5 mg tablet (Eliquis) 5 mg PO AMHS 06/28/23 08/29/25 atorvastatin 80 mg tablet 80 mg PO HS 06/28/23 08/29/25 docusate sodium 100 mg capsule 200 mg PO HS 09/14/23 08/29/25 (Colace) ferrous sulfate 325 mg (65 mg 325 mg PO Q OTHER DAY 04/03/24 08/29/25 iron) tablet,delayed release ascorbic acid (vitamin C) 500 mg 500 mg PO BID 07/10/24 08/29/25 tablet (Vitamin C) Saccharomyces boulardii 250 mg 250 mg PO QAM 08/14/24 08/29/25 capsule (Florastor) cranberry extract 500 mg capsule 500 mg PO QAM 08/14/24 08/29/25 (Cranberry Concentrate) diclofenac sodium 1 % topical gel 2 g EXT QID Pain 08/14/24 08/29/25 (Voltaren Arthritis Pain) zinc oxide 20 % topical ointment 1 applic topical BID 08/14/24 08/29/25 sennosides 8.6 mg tablet (senna) 17.2 mg PO HS PRN Constipation 12/17/24 08/29/25 methenamine hippurate 1 gram tablet 1 g PO BID 01/19/25 08/29/25 spironolactone 25 mg tablet 25 mg PO QAM 01/19/25 08/29/25 folic acid 1 mg tablet 1 mg PO QAM 04/19/25 08/29/25 miconazole nitrate 2 % topical 1 applic EXT DAILY PRN rash 04/19/25 08/29/25 powder (Desenex) mirtazapine 7.5 mg tablet 7.5 mg PO BID 04/19/25 08/29/25 oxybutynin chloride 5 mg tablet 5 mg PO Q8H PRN Bladder Spasms 08/29/25 08/29/25 Previous Rx's Medication Instructions Recorded metoprolol succinate 25 mg 25 mg PO AMHS #60 tabs 12/25/24 tablet,extended release 24 hr cyanocobalamin (vitamin B-12) 500 1,000 mcg (2 x 500 mcg) PO QAM #60 04/25/25 mcg tablet tabs meclizine 25 mg tablet 25 mg PO BID #60 tabs 04/25/25 mirtazapine 15 mg tablet 15 mg PO BID #30 tabs 04/25/25 oxycodone 5 mg tablet 5 mg PO Q4H PRN pain #10 tabs 04/25/25 polyethylene glycol 3350 17 gram 17 g PO DAILY #0 ea 06/18/25 oral powder packet (Miralax) vibegron 75 mg tablet (Gemtesa) 75 mg PO DAILY #30 tabs 07/17/25 Results & Data (ED) Vital Signs Vital Signs - 24 hr 08/29/25 09:53 08/29/25 09:53 08/29/25 10:24 Temperature 37.2 C Temperature Source Oral Pulse Rate 109 H 153 H Pulse Rate [Apical] Respiratory Rate 20 Blood Pressure 141/97 H Blood Pressure [Right Arm] Blood Pressure Mean 111 Blood Pressure Mean [Right Arm] Pulse Oximetry 89 L 94 Oxygen Delivery Method Room Air Nasal Cannula Oxygen Flow Rate 2 Sepsis Recent Fever Within 48 Hours Yes Sepsis New/Unexplained Change in Mental Status No Sepsis Action Taken by Nursing No Action Required 08/29/25 12:25 Temperature Temperature Source Pulse Rate Pulse Rate [Apical] 88 Respiratory Rate 16 Blood Pressure Blood Pressure [Right Arm] 114/83 Blood Pressure Mean Blood Pressure Mean [Right Arm] 93 Pulse Oximetry 97 Oxygen Delivery Method Nasal Cannula Oxygen Flow Rate 2 Sepsis Recent Fever Within 48 Hours Sepsis New/Unexplained Change in Mental Status Sepsis Action Taken by Nursing Laboratory Data 08/29/25 10:37 08/29/25 10:37 Lab Results 08/29/25 08/29/25 08/29/25 Range/Units 10:37 10:40 11:19 WBC 9.05 (4.8-10.8) K/ul RBC 4.24 (4.20-5.40) M/uL Hgb 11.4 L (12.0-16.0) g/dL Hct 36.6 L (37.0-47.0) % MCV 86.3 (80.0-100.0) fL MCH 26.9 (25.0-34.0) pg MCHC 31.1 L (32.0-36.0) g/dL RDW Std Deviation 53.1 H (36.4-46.3) fL RDW Coeff of Rodolfo 16.9 H (11.5-14.5) % Plt Count 281 (130-400) K/uL MPV 9.7 (9.4-12.4) fL Immature Gran % (Auto) 0.4 % Neut % (Auto) 73.7 % Lymph % (Auto) 19.2 % [place] % (Auto) 6.0 % Eos % (Auto) 0.4 % Baso % (Auto) 0.3 % Neut # (Auto) 6.66 H (1.40-6.50) K/uL Lymph # (Auto) 1.74 (1.20-3.40) K/uL [place] # (Auto) 0.54 (0.11-0.59) K/uL Eos # (Auto) 0.04 (0.00-0.50) K/uL Baso # (Auto) 0.03 (0.00-0.20) K/uL Immature Gran # (Auto) 0.04 (0.01-0.20) K/uL PT 14.0 H (9.0-12.0) Seconds INR 1.3 H (0.9-1.1) APTT 35 H (21-31) Seconds PTT Ratio 1.3 Sodium 140 (136-145) mmol/L Potassium 3.4 L (3.5-5.1) mmol/L Chloride 104 (98-107) mmol/L Carbon Dioxide 28 (21-32) mmol/L Anion Gap 8 (3-11) BUN 14 (6-23) mg/dl Creatinine 0.46 L (0.6-1.2) mg/dl Est Cr Clr Drug Dosing 113.7 ml/min eGFR 97.28 BUN/Creatinine Ratio 30.4 H (10-20) Glucose 130 H (70-99(Fasting)) mg/dl Lactate 1.4 (0.4-2.0) mmol/L Calcium 9.0 (8.6-10.3) mg/dl Magnesium 1.9 (1.7-2.4) mg/dl Total Bilirubin 0.8 (0.2-1.0) mg/dl AST 10 L (13-39) U/L ALT 13 (7-52) U/L Alkaline Phosphatase 102 (34-104) U/L Troponin I High Sens 6.5 (0-14) pg/ml Total Protein 6.8 (6.0-8.3) gm/dl Albumin 2.7 L (3.4-5.0) gm/dl Globulin 4.1 H (2.5-4.0) gm/dl Albumin/Globulin Ratio 0.7 L (0.9-2) Procalcitonin 0.11 (0-0.5) ng/ml Urine Color See Comment Urine Appearance Turbid A (Clear) Urine pH Not Reportable Ur Specific [place] 1.012 (1.000-1.030) Urine Protein Not Reportable Urine Glucose (UA) Not Reportable Urine Ketones Not Reportable Urine Blood Not Reportable Urine Nitrite Not Reportable Urine Bilirubin Not Reportable Urine Urobilinogen Not Reportable Ur Leukocyte Esterase Not Reportable Urine WBC (Auto) >50 (0-5) /hpf Urine RBC (Auto) 11-20 (0-4) /hpf U Hyaline Cast (Auto) 0-2 (0-5) /lpf U Epithel Cells (Auto) 0-2 (0-5) /lpf Urine Bacteria (Auto) 3+ H (Negative) Urine Comment SARS-CoV-2 (PCR) NEGATIVE (Negative) Influenza Type A (PCR) Negative (Neg) Influenza Type B (PCR) Negative (Neg) RSV (RT-PCR) Negative (Neg) Administered Medications Ciprofloxacin (Cipro / D5w) 400 mg in 200 mls @ 100 mls/hr IV NOW STA; Protocol Stop: 08/29/25 15:12 Last Admin: 08/29/25 13:18 Dose: 100 mls/hr Documented By: [facility]BI Imaging Data Radiologist's Impression: Chest X-Ray 08/29/25 10:36 XR chest 1V portable CLINICAL HISTORY: Sepsis. COMPARISON STUDY: Chest radiograph June 11, 2025. Chest CT June 28, 2023. FINDINGS: An old right humeral neck fracture is incidentally noted. Blunting of the left costophrenic angle is chronic. Cardiomegaly is unchanged. Mediastinal contours are stable. There is no consolidation to suggest pneumonia. There is no evidence for pulmonary edema. IMPRESSION: No significant change in appearance of the chest. ACT 112: Negative or not required by law. Electronically signed by: Anibal Amos M.D. 08/29/2025 12:59 PM Discharge Plan Visit Data Chief Complaint: Illness Stated Complaint: hematuria/flu-like ED Provider: Karli Chicas Discharge Problem: Acute dyspnea, Acute hypoxemic respiratory failure, Acute viral syndrome, Catheter-associated urinary tract infection Patient Disposition: Admitted As Inpatient Condition: Fair Forms Stand Alone Forms: [facility] Prescriptions Prescriptions: No Action Gemtesa 75 mg tablet 75 mg PO DAILY Qty: 30 2RF atorvastatin 80 mg tablet 80 mg PO HS acetaminophen [Tylenol Extra Strength] 500 mg Tablet 500 mg PO Q6H MDD 3gmAPAP/24hrs PRN (Reason: Fever Or Pain) Eliquis 5 mg tablet 5 mg PO AMHS docusate sodium [Colace] 100 mg Capsule 200 mg PO HS sennosides [senna] 8.6 mg Tablet 17.2 mg PO HS PRN (Reason: Constipation) metoprolol succinate 25 mg Tablet Extended Release 24 Hr 25 mg PO AMHS Qty: 60 0RF spironolactone 25 mg tablet 25 mg PO QAM methenamine hippurate 1 gram tablet 1 g PO BID folic acid 1 mg Tablet 1 mg PO QAM mirtazapine 7.5 mg tablet 7.5 mg PO BID Rx Instructions: Take w/ 15mg to equal 22.5mg by mouth twice daily miconazole nitrate [Desenex] 2 % powder 1 applic EXT DAILY PRN (Reason: rash) cyanocobalamin (vitamin B-12) 500 mcg Tablet 1,000 mcg PO QAM Qty: 60 0RF meclizine 25 mg Tablet 25 mg PO BID Qty: 60 0RF mirtazapine 15 mg tablet 15 mg PO BID Qty: 30 0RF Rx Instructions: Take w/ 7.5mg to equal 22.5mg by mouth twice daily oxycodone 5 mg Tablet 5 mg PO Q4H PRN (Reason: pain) Qty: 10 0RF oxybutynin chloride 5 mg tablet 5 mg PO Q8H PRN (Reason: Bladder Spasms) ferrous sulfate 325 mg (65 mg iron) Tablet,Delayed Release (Dr/Ec) 325 mg PO Q OTHER DAY Patient Comments: in am ascorbic acid (vitamin C) [Vitamin C] 500 mg Tablet 500 mg PO BID zinc oxide 20 % Ointment 1 applic TOPICAL BID cranberry extract [Cranberry Concentrate] 500 mg Capsule 500 mg PO QAM Rx Instructions: administer with meals Saccharomyces boulardii [Florastor] 250 mg Capsule 250 mg PO QAM diclofenac sodium [Voltaren Arthritis Pain] 1 % gel 2 g EXT QID polyethylene glycol 3350 [Miralax] 17 gram Powder In Packet 17 g PO DAILY Qty: 0 0RF Referrals Referrals: Pavan Mckeon MD [Primary Care Provider] -
[2025-08-29 12:41] LABS: Influenza A virus by PCR Negative (Neg); Influenza B virus by PCR Negative (Neg); SARS CoV2 RNA(COVID-19) Ceph NEGATIVE (Negative)
--- NOTE | 2025-08-29 13:01 | XRay Report ---
XR chest 1V portable CLINICAL HISTORY: Sepsis. COMPARISON STUDY: Chest radiograph June 11, 2025. Chest CT June 28, 2023. FINDINGS: An old right humeral neck fracture is incidentally noted. Blunting of the left costophrenic angle is chronic. Cardiomegaly is unchanged. Mediastinal contours are stable. There is no consolidat ion to suggest pneumonia. There is no evidence for pulmonary edema. IMPRESSION: No significant change in appearance of the chest. ACT 112: Negative or not required by law. Electronically signed by: Anibal Amos M.D. 08/29/2025 12:59 PM
[2025-08-29] MEDS: CIPROFLOXACIN / D5W 400 MG/200 ML BAG IV STA (13:18)
--- NOTE | 2025-08-29 14:10 | History & Physical Report ---
Date of Service August 29, 2025 Assessment & Plan (1) Catheter-associated urinary tract infection: Plan: Cipro started in the ED, day 1. Await urine culture results. Previous cultures have grown Enterococcus and Pseudomonas (2) Acute bronchitis: Plan: Present clinically. Continue Cipro started in the ED, day 1. Obtain sputum culture when sputum is produced (3) Acute hypoxemic respiratory failure: Plan: Supplemental oxygen per nasal cannula to maintain saturation greater than 90%. Wean off as tolerated (4) Atrial fibrillation: Plan: Telemetry. Continue Eliquis. Rate control measures (5) Diabetes: Plan: Type II. ADA diet. Sliding scale coverage (6) Morbid obesity: Plan: BMI greater than 40. Supportive care. Plan Anticipate eventual return to [facility] in 2 to 3 days History of Present Illness Chief Complaint: Occasionally productive cough, recurrent hematuria Primary Care Provider: Pavan Mckeon MD 80-year-old female with chronic indwelling Cobb catheter from a local personal- care facility who is bedbound. She has a cough occasionally productive of discolored sputum and has noticed some hematuria in her Cobb catheter. She came to the ED for evaluation. Urine analysis reveals what appears to be a significant number of bacteria. Chest x-ray is negative for acute pneumonia but symptomatically and on clinical examination she has acute bronchitis. She was started on intravenous Cipro in the ED and urine culture was obtained. Sputum culture has been ordered. She noticed some hematuria in the Cobb catheter. She denies hemoptysis. No rigors or documented fever. She denies chest pain. She is admitted for further evaluation and treatment Allergies Allergy/AdvReac Type Severity Reaction Status Date / Time doxycycline Allergy Intermediate Swelling Verified 08/29/25 13:06 tetracycline Allergy Mild Eye Verified 08/29/25 13:06 swelling codeine Allergy Unknown Unknown - Verified 08/29/25 13:06 On file w/ [facility] Inhibitors AdvReac Intermediate Cough Verified 08/29/25 13:06 Sulfa (Sulfonamide AdvReac Mild Gastrointestinal Verified 08/29/25 13:06 Antibiotics) Upset Home Medications Medication Instructions Recorded Confirmed Type acetaminophen 500 mg tablet 500 mg PO Q6H PRN Fever Or Pain 06/28/23 08/29/25 History (Tylenol Extra Strength) apixaban 5 mg tablet (Eliquis) 5 mg PO AMHS 06/28/23 08/29/25 History atorvastatin 80 mg tablet 80 mg PO HS 06/28/23 08/29/25 History docusate sodium 100 mg capsule 200 mg PO HS 09/14/23 08/29/25 History (Colace) ferrous sulfate 325 mg (65 mg 325 mg PO Q OTHER DAY 04/03/24 08/29/25 History iron) tablet,delayed release ascorbic acid (vitamin C) 500 mg 500 mg PO BID 07/10/24 08/29/25 History tablet (Vitamin C) Saccharomyces boulardii 250 mg 250 mg PO QAM 08/14/24 08/29/25 History capsule (Florastor) cranberry extract 500 mg capsule 500 mg PO QAM 08/14/24 08/29/25 History (Cranberry Concentrate) diclofenac sodium 1 % topical gel 2 g EXT QID Pain 08/14/24 08/29/25 History (Voltaren Arthritis Pain) zinc oxide 20 % topical ointment 1 applic topical BID 08/14/24 08/29/25 History sennosides 8.6 mg tablet (senna) 17.2 mg PO HS PRN Constipation 12/17/24 08/29/25 History metoprolol succinate 25 mg 25 mg PO AMHS #60 tabs 12/25/24 08/29/25 Rx tablet,extended release 24 hr methenamine hippurate 1 gram tablet 1 g PO BID 01/19/25 08/29/25 History spironolactone 25 mg tablet 25 mg PO QAM 01/19/25 08/29/25 History folic acid 1 mg tablet 1 mg PO QAM 04/19/25 08/29/25 History miconazole nitrate 2 % topical 1 applic EXT DAILY PRN rash 04/19/25 08/29/25 History powder (Desenex) mirtazapine 7.5 mg tablet 7.5 mg PO BID 04/19/25 08/29/25 History cyanocobalamin (vitamin B-12) 500 1,000 mcg (2 x 500 mcg) PO QAM #60 04/25/25 08/29/25 Rx mcg tablet tabs meclizine 25 mg tablet 25 mg PO BID #60 tabs 04/25/25 08/29/25 Rx mirtazapine 15 mg tablet 15 mg PO BID #30 tabs 04/25/25 08/29/25 Rx oxycodone 5 mg tablet 5 mg PO Q4H PRN pain #10 tabs 04/25/25 08/29/25 Rx polyethylene glycol 3350 17 gram 17 g PO DAILY #0 ea 06/18/25 08/29/25 Rx oral powder packet (Miralax) vibegron 75 mg tablet (Gemtesa) 75 mg PO DAILY #30 tabs 07/17/25 08/29/25 Rx oxybutynin chloride 5 mg tablet 5 mg PO Q8H PRN Bladder Spasms 08/29/25 08/29/25 History Past Med/Surg History Problem List (Updated 08/29/25 @ 14:13 by Demetrio Law MD) Morbid obesity Acute bronchitis Catheter-associated urinary tract infection (Acute) Acute viral syndrome (Acute) Acute hypoxemic respiratory failure (Acute) Acute dyspnea (Acute) Diabetes E coli bacteremia Paroxysmal atrial fibrillation (Acute) Depression Tinea corporis Hypoalbuminemia (Acute) Catheter-associated urinary tract infection (Acute) Enterococcal bacteremia Urinary retention Morbid obesity Atrial fibrillation (Acute) Deep vein thrombosis Hyperlipidemia Asthma Osteoarthritis of knees, bilateral Chronic GERD Medical History E. coli septicemia Hydronephrosis Nephrolithiasis Recurrent UTI Chronic indwelling Cobb catheter Ureteral stent present Hypertension History of DVT (deep vein thrombosis) PAF (paroxysmal atrial fibrillation) Obesity Pulmonary hypertension moderate per 06/2023 ECHO (PASP 47mmHg) Skin breakdown sacral skin breakdown per 06/2024 hospitalization; pt to follow with wound care at [facility] 2 or more hospital admissions in past 6 months admitted [facility] 06/08-06/15/24: dx: complicated UTI, chronic indwelling cobb catheter, calculus of L kidney, b/l hydronephrosis. admitted [facility] 06/26- 06/30/24: dx: infection associated with indwelling uteretal stent, hematuria, acute L flank pain: pt D/C on Cefdinir (pt also noted to have sacral skin area breakdown during admission and pt to f/u with wound care at [facility]) History of anemia History of posterior vitreous detachment B/L History of asthma "Well controlled" Chronic indwelling Cobb catheter Hydronephrosis of left kidney Diabetes mellitus, type II Diet controlled Overactive bladder HTN (hypertension) GERD (gastroesophageal reflux disease) Hyperlipidemia Hx of vertigo Hx of cancer of uterus 2014- radiation Hx pulmonary embolism Remote hx years ago In setting of prolonged sitting/immobility during a previous hospitalization per records Urinary retention Cobb cath in place History of home oxygen therapy not currently [facility] resident Resides at [facility] Nontoxic thyroid nodule Hx: UTI (urinary tract infection) Recurrent Hx of sepsis Lipodermatosclerosis Chronic bronchitis 'Bronchial asthma' Acquired lymphedema "Stomach" Gets therapy/massage to manage > was complication after radiation treatment per previous PAT RN notation IBS (irritable bowel syndrome) Surgical History History of anesthesia reaction Awareness with D&C and colonoscopy History of open reduction and internal fixation (ORIF) procedure (06/2023) left femur fx Hx of cystoscopy Multiple; most recent: 04/13/24: MAC without issue History of cataract surgery (2020) R/L History of dilatation and curettage History of esophagogastroduodenoscopy (EGD) History of colonoscopy History of bilateral tubal ligation History of cholecystectomy Hx of hernia repair (12/2017) Ventral hernia with mesh History of tooth extraction History of cardiac cath (02/18/11) @ [facility]--No stents Family History Other No family history of adverse response to anesthesia Social History Smoking Status: Never smoker Second Hand Exposure: No; Do You Dip or Chew Tobacco: No; Hx Alcohol Use: No Hx Substance Use: No Preferred Language: German Communication Ability: Effective Communication Ability Comment: alert and oriented x3 - of sound mind to sign consent Visual Impairment: No Limitations 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 No wheezing. No wheezing, no shortness of breath Cardiacno palpitations, no chest pain, no syncope Isidro nausea, vomiting, diarrhea, melena, hematochezia GUchronic indwelling Cobb catheter. She has noticed some hematuria recently a Musculoskeletalno joint pain, no muscle tenderness Skinno bruising, no rashes, no pruritus Neurono isolated weakness, no paresthesia. Nonambulatory at baseline Psychno depression, no anxiety Physical Exam 2 Physical Exam: General-alert and oriented x3, no fever, no chills HEENT-head atraumatic and normocephalic, pupils equal and reactive to light, extraocular muscles intact Neck-no lymphadenopathy or thyromegaly, trachea midline Chest-midline rhonchi. No wheezing. No inspiratory rales. Cardiac-irregularly irregular rhythm. Normal S1 and S2 Abdomen-normal bowel sounds, no hepatosplenomegaly GUchronic indwelling Cobb catheter in place. Small amount of gross hematuria evident Extremities-no cyanosis, clubbing, or edema Neuro-cranial nerves II through XII intact, motor and sensory function within normal limits, strength symmetrical with generalized weakness, no focal deficits Psych-normal affect, normal mood Results & Data Results & Data Vital Signs (Past 12 Hours) Vital Signs Temp Pulse Pulse Resp BP BP Pulse Ox 08/29/25 12:25 88 16 114/83 97 08/29/25 10:24 153 H 08/29/25 09:53 94 08/29/25 09:53 37.2 C 109 H 20 141/97 H 89 L O2 Del Method O2 Flow Rate 08/29/25 12:25 Nasal Cannula 2 08/29/25 10:24 08/29/25 09:53 Nasal Cannula 2 08/29/25 09:53 Room Air Laboratory Results 08/29/25 10:37 08/29/25 10:37 Code Status & VTE Plan Code Status DNR/DNI PG Care Time/CCT Total # of Minutes Spent Total Time Spent with Patient: Total time spent is greater than 50% in coordination of care (as documented) at patient's floor/unit and/or counseling patient: Coding Level of Care Code 47846 INT INP/OBS CARE 3/75MIN Diagnoses Catheter-associated urinary tract infection T83.511A; N39.0 Acute bronchitis J20.9 Acute hypoxemic respiratory failure J96.01 Atrial fibrillation I48.91 Atrial fibrillation type: unspecified Diabetes E11.9 Morbid obesity E66.01 (4) Atrial fibrillation Atrial fibrillation type: unspecified Qualified Code(s): I48.91 - Unspecified atrial fibrillation
[2025-08-29] MEDS ORDERED: GLUCAGON FOR INJ 1 MG VIAL SQ PRN (15:12)
[2025-08-29] MEDS ORDERED: GLUCOSE 10 TAB/TUBE PO PRN (15:12)
[2025-08-29] MEDS ORDERED: GLUCOSE 40% GEL 15 GM TUBE PO PRN (15:12)
[2025-08-29] MEDS ORDERED: CARBOHYDRATES FOR HYPOGLYCEMIA PO PRN (15:12)
[2025-08-29] MEDS ORDERED: ONDANSETRON INJ 2 MG/ML 2 ML VIAL IV PRN (15:12)
[2025-08-29] MEDS ORDERED: DEXTROSE 50% 50 ML SYRINGE IV PRN (15:12)
[2025-08-29] MEDS ORDERED: Nursing to Pharmacy Communication SCH (15:45)
[2025-08-29] MEDS: FERROUS SULFATE 325 MG TAB PO SCH (16:13)
[2025-08-29] MEDS: DICLOFENAC SOD 1% GEL 100 GM TUBE EXT SCH (16:13)
[2025-08-29] MEDS ORDERED: INSULIN ASPART PER UNIT CHARGE SC SCH (16:30)
[2025-08-29] MEDS: ACETAMINOPHEN 325 MG TAB PO PRN (20:59)
[2025-08-29] MEDS: MICONAZOLE NITRATE POWDER 85 GM EXT PRN (20:59)
[2025-08-29] MEDS: DOCUSATE SODIUM 100 MG CAP PO SCH (21:00)
[2025-08-29] MEDS: MECLIZINE HCL 25 MG TAB PO SCH (21:01)
[2025-08-29] MEDS: APIXABAN 5 MG TABLET PO SCH (21:01)
[2025-08-29] MEDS: ATORVASTATIN 40 MG TAB PO SCH (21:01)
[2025-08-29] MEDS: MIRTAZAPINE TAB 15 MG TAB PO SCH ×2 (21:02→21:03)
[2025-08-29] MEDS: METOPROLOL SUCC 25MG EXT REL TAB PO SCH (21:03)
[2025-08-29] MEDS: METHENAMINE HIPPURATE 1 GM TAB PO SCH (21:04)
[2025-08-29] MEDS: ASCORBIC ACID 500 MG TAB PO SCH (21:05)
[2025-08-29] MEDS: CIPROFLOXACIN / D5W 400 MG/200 ML BAG IV SCH (21:56)
[2025-08-29] MEDS: BENZONATATE 100 MG CAPSULE PO PRN (23:32)
[2025-08-30] MEDS ORDERED: CIPROFLOXACIN / D5W 400 MG/200 ML BAG IV SCH (01:00)
[2025-08-30 06:48] LABS: Hematocrit (blood only) 34.8 % (37.0-47.0); Hemoglobin 10.7 g/dL (12.0-16.0); Immature Granulocytes # (auto) 0.03 K/uL (0.01-0.20); Immature Granulocytes % (auto) 0.4 %; Mean Corpuscular Hemoglobin 27.2 pg (25.0-34.0); Mean Corpuscular Volume 88.5 fL (80.0-100.0); Platelet Count 253 K/uL (130-400); RDW Standard Deviation 53.2 fL (36.4-46.3); Red Blood Count 3.93 M/uL (4.20-5.40); White Blood Count 7.59 K/ul (4.8-10.8)
[2025-08-30 07:12] LABS: Anion Gap 5.0 (3-11); Blood Urea Nitrogen 14.0 mg/dl (6-23); Calcium 9.0 mg/dl (8.6-10.3); Carbon Dioxide 31.0 mmol/L (21-32); Chloride 105.0 mmol/L (98-107); Creatinine Clr Calc Pharmacy 118.9 ml/min; Glucose 107.0 mg/dl (70-99(Fasting)); Potassium 3.7 mmol/L (3.5-5.1); Sodium 141.0 mmol/L (136-145)
--- NOTE | 2025-08-30 07:53 | Hospitalist Progress Note ---
Date of Service August 30, 2025 Assessment & Plan (1) Catheter-associated urinary tract infection: Plan: Catheter associated UTI versus colonization Patient presented with discolored sputum and cough consistent with acute bronchitis Was noted to have some hematuria in her Osorio catheter, no other urinary symptoms no leukocytosis and afebrile. PCT negative Covered for possible catheter associated UTI, has a history of resistant organisms in the past Exchange Osorio catheter. Will follow urine cultures, these remain pending. Positive for Enterococcus/Pseudomonas in the past. UA had 3+ bacteria but no leukocyte esterase, nitrites, or blood Acute hypoxic respiratory failure suspect due to bronchitis Chest x-ray without evidence of pneumonia Titrate oxygen to goal 90% Wean oxygen as able Will continue 5-day course of antibiotics. placed on Cipro for coverage of UTI with past cultures intermediately resistant to levo but sensitive to Cipro. Enterococcal cultures are resistant. Sputum culture pending Atrial fibrillation Continue Eliquis Rate controlled Continue metoprolol 25mg AM/HS Type II DM Goal BSG 453449 BSG adequately controlled overnight following admission Continue SSI CF 20/CR 10 DVT prophylaxis: Anticoagulated (2) Acute bronchitis: (3) Acute hypoxemic respiratory failure: (4) Atrial fibrillation: (5) Diabetes: (6) Morbid obesity: Admission and Anticipated Discharge Date Admission Date: August 29, 2025 Subjective Seen at the bedside. She reports she is very concerned about the blood that was in her cath as this has been along with her UTIs in the past and she did have some pressure discomfort before coming in although does not think this has significantly changed. Denies fevers chills or sweats. She continues to have a dry nonproductive cough. She is not normally on oxygen and continues to be on oxygen, although sats 96% on 2 L today. She is curious to know for like to make sure that urology is notified and gets copy of her admission paperwork, otherwise no acute questions or concerns at time of visit. Physical Exam Physical Exam: General: A&Ox3. NAD. Cooperative. HEENT: Atraumatic, normocephalic. Vision and hearing grossly intact Pulm: CTAB A&P. -wheezes, -rales, -rhonchi. Symmetrical chest rise. No increased work of breathing. No respiratory distress. Cardiac: RRR, -mrg. Radial pulses intact and symmetrical. Abdominal: Nontender, nondistended, soft. BS present. Results & Data Results & Data Vital Signs (Past 12 Hours) Vital Signs Temp Pulse Pulse Resp BP Pulse Ox O2 Del Method 08/30/25 05:24 72 08/30/25 04:19 36.5 C 69 18 128/67 95 Nasal Cannula 08/29/25 23:41 36.5 C 92 H 18 146/77 H 92 Nasal Cannula 08/29/25 22:19 82 08/29/25 20:45 Nasal Cannula O2 Flow Rate 08/30/25 05:24 08/30/25 04:19 08/29/25 23:41 08/29/25 22:19 08/29/25 20:45 2 PG Care Time/CCT Total # of Minutes Spent Total Time Spent with Patient: Total time spent is greater than 50% in coordination of care (as documented) at patient's floor/unit and/or counseling patient: Coding Level of Care Code 19726 SUB INP/OBS CARE 3/50MIN Diagnoses Catheter-associated urinary tract infection T83.511A; N39.0 Acute bronchitis J20.9 Acute hypoxemic respiratory failure J96.01 Atrial fibrillation I48.91 Atrial fibrillation type: unspecified Diabetes E11.9 Morbid obesity E66.01 (4) Atrial fibrillation Atrial fibrillation type: unspecified Qualified Code(s): I48.91 - Unspecified atrial fibrillation
[2025-08-30] MEDS: VIBEGRON 75 MG TAB PO SCH (08:19)
[2025-08-30] MEDS: SACCHAROMYCES BOULARDII 250 MG CAP PO SCH (08:20)
[2025-08-30] MEDS: FOLIC ACID 1 MG TAB PO SCH (08:20)
[2025-08-30] MEDS: SPIRONOLACTONE 25 MG TAB PO SCH (08:20)
[2025-08-30] MEDS: CYANOCOBALAMIN (B-12) 500 MCG TABLET PO SCH (08:20)
[2025-08-30] MEDS: POLYETHYLENE (MIRALAX) 17 GM PACK PO SCH (08:21)
[2025-08-31 10:26] LABS: Hematocrit (blood only) 34.2 % (37.0-47.0); Hemoglobin 10.3 g/dL (12.0-16.0); Immature Granulocytes # (auto) 0.03 K/uL (0.01-0.20); Immature Granulocytes % (auto) 0.4 %; Mean Corpuscular Hemoglobin 26.8 pg (25.0-34.0); Mean Corpuscular Volume 89.1 fL (80.0-100.0); Platelet Count 274 K/uL (130-400); RDW Standard Deviation 54.2 fL (36.4-46.3); Red Blood Count 3.84 M/uL (4.20-5.40); White Blood Count 7.19 K/ul (4.8-10.8)
[2025-08-31 10:42] LABS: Anion Gap 6.0 (3-11); Blood Urea Nitrogen 17.0 mg/dl (6-23); Calcium 9.0 mg/dl (8.6-10.3); Carbon Dioxide 28.0 mmol/L (21-32); Chloride 104.0 mmol/L (98-107); Creatinine Clr Calc Pharmacy 84.3 ml/min; Glucose 165.0 mg/dl (70-99(Fasting)); Potassium 3.6 mmol/L (3.5-5.1); Sodium 138.0 mmol/L (136-145)
--- NOTE | 2025-08-31 10:51 | Hospitalist Progress Note ---
Date of Service August 31, 2025 Assessment & Plan (1) Catheter-associated urinary tract infection: Plan: Catheter associated UTI versus colonization Patient presented with discolored sputum and cough consistent with acute bronchitis Was noted to have some hematuria in her Osorio catheter, no other urinary symptoms no leukocytosis and afebrile. PCT negative Covered for possible catheter associated UTI, has a history of resistant organisms in the past Will continue 5-day course of antibiotics. placed on Cipro for coverage of UTI with past cultures intermediately resistant to levo but sensitive to Cipro. Enterococcal cultures are resistant. Exchange Osorio catheter. UCx with mixed colonies, final culture pending No leukocytosis Acute hypoxic respiratory failure suspect due to bronchitis Chest x-ray without evidence of pneumonia Titrate oxygen to goal 90% Wean oxygen as able Sputum culture with heavy mixed karen, final cultures pending. Guaifenesin added, hydration encouraged. Oxygen requirement is weaning now down to 2 L No leukocytosis. Is on antibiotics for UTI as noted. Expanded antibiotics are not currently indicated Incentive spirometer and flutter valve encourage Atrial fibrillation Continue Eliquis Rate controlled Continue metoprolol 25mg AM/HS Type II DM Goal BSG 490494 BSG adequately controlled Continue SSI CF 20/CR 10 DVT prophylaxis: Anticoagulated (2) Acute bronchitis: (3) Acute hypoxemic respiratory failure: (4) Atrial fibrillation: (5) Diabetes: (6) Morbid obesity: Admission and Anticipated Discharge Date Admission Date: August 29, 2025 Subjective Feels okay today. Cough has continued. No fever/chills. Sputum production is now a darker green and she feels like it is a little thicker and more harder to expectorate. Oxygen requirement is weaning however still on 2 L with no home requirement. No chest pain or chest pressure. No bladder/pelvic pain Physical Exam Physical Exam: General: A&Ox3. NAD. Cooperative. HEENT: Atraumatic, normocephalic. Vision and hearing grossly intact Pulm: CTAB A&P. -wheezes, -rales, -rhonchi. Symmetrical chest rise. No increased work of breathing. No respiratory distress. Cardiac: RRR, -mrg. Radial pulses intact and symmetrical. Abdominal: Nontender, nondistended, soft. BS present. Results & Data Results & Data Vital Signs (Past 12 Hours) Vital Signs Temp Pulse Pulse Resp BP BP Pulse Ox 08/31/25 09:02 12/19/25 08:13 36.7 C 77 20 133/75 92 08/31/25 05:48 62 08/31/25 03:19 36.5 C 75 18 124/75 97 08/30/25 23:35 36.6 C 83 18 124/71 95 08/30/25 23:21 73 O2 Del Method O2 Flow Rate 08/31/25 09:02 Nasal Cannula 2 08/31/25 08:13 Nasal Cannula 2 08/31/25 05:48 08/31/25 03:19 Nasal Cannula 2 08/30/25 23:35 Nasal Cannula 2 08/30/25 23:21 PG Care Time/CCT Total # of Minutes Spent Total Time Spent with Patient: Total time spent is greater than 50% in coordination of care (as documented) at patient's floor/unit and/or counseling patient: Coding Level of Care Code 11937 SUB INP/OBS CARE 3/50MIN Diagnoses Catheter-associated urinary tract infection T83.511A; N39.0 Acute bronchitis J20.9 Acute hypoxemic respiratory failure J96.01 Atrial fibrillation I48.91 Atrial fibrillation type: unspecified Diabetes E11.9 Morbid obesity E66.01 (4) Atrial fibrillation Atrial fibrillation type: unspecified Qualified Code(s): I48.91 - Unspecified atrial fibrillation
[2025-08-31] MEDS: guaiFENesin 600 MG TABCR PO SCH (20:52)
--- NOTE | 2025-08-31 22:42 | Electrocardiogram Report ---
Test Reason : Blood Pressure : */* mmHG Vent. Rate : 109 BPM Atrial Rate : * BPM P-R Int : * ms QRS Dur : 92 ms QT Int : 318 ms P-R-T Axes : * -4 163 degrees QTcB Int : 428 ms Atrial fibrillation with rapid ventricular response with premature ventricular or aberrantly conducte d complexes Cannot rule out Anterior infarct (cited on or before 17-Dec-2024) Abnormal ECG When compared with ECG of 11-Jun-2025 13:36, No significant change Confirmed by Dandre Cuadra ([id number]) on 08/31/2025 10:41:46 PM Referred By: Confirmed By: Dandre Cuadra
[2025-09-01] MEDS ORDERED: ALBUT/IPRATROP 3MG/0.5MG NEB 3 ML VIAL NEB PRN (07:38)
[2025-09-01 10:55] LABS: Hematocrit (blood only) 33.9 % (37.0-47.0); Hemoglobin 10.3 g/dL (12.0-16.0); Immature Granulocytes # (auto) 0.04 K/uL (0.01-0.20); Immature Granulocytes % (auto) 0.5 %; Mean Corpuscular Hemoglobin 27.0 pg (25.0-34.0); Mean Corpuscular Volume 88.7 fL (80.0-100.0); Platelet Count 244 K/uL (130-400); RDW Standard Deviation 53.4 fL (36.4-46.3); Red Blood Count 3.82 M/uL (4.20-5.40); White Blood Count 7.49 K/ul (4.8-10.8)
[2025-09-01 11:09] LABS: Anion Gap 5.0 (3-11); Blood Urea Nitrogen 16.0 mg/dl (6-23); Calcium 8.7 mg/dl (8.6-10.3); Carbon Dioxide 31.0 mmol/L (21-32); Chloride 102.0 mmol/L (98-107); Creatinine Clr Calc Pharmacy 95.2 ml/min; Glucose 185.0 mg/dl (70-99(Fasting)); Potassium 3.9 mmol/L (3.5-5.1); Sodium 138.0 mmol/L (136-145)
--- NOTE | 2025-09-01 13:37 | Hospitalist Progress Note ---
Date of Service September 01, 2025 Assessment & Plan (1) Catheter-associated urinary tract infection: Plan: Catheter associated UTI versus colonization Patient presented with discolored sputum and cough consistent with acute bronchitis Was noted to have some hematuria in her Osorio catheter, no other urinary symptoms no leukocytosis and afebrile. PCT negative Covered for possible catheter associated UTI, has a history of resistant organisms in the past Will continue 5-day course of antibiotics. placed on Cipro for coverage of UTI with past cultures intermediately resistant to levo but sensitive to Cipro. Enterococcal cultures are resistant. Exchange Osorio catheter. UCx with mixed colonies No leukocytosis Acute hypoxic respiratory failure suspect due to bronchitis Chest x-ray without evidence of pneumonia Titrate oxygen to goal 90%, did not tolerate wean to room air morning of 09/01. She is not on oxygen at baseline Wean oxygen as able Sputum culture with heavy mixed karen, No leukocytosis. Is on antibiotics for UTI as noted. Expanded antibiotics are not currently indicated Incentive spirometer and flutter valve encouraged Nebs as needed, slightly coarse 09/01 with some diminished crackles in bases Lasix started HFpEF Last TTE 08/15/2024: LVEF 65-70% with some diastolic dysfunction. No regional wall motion abnormalities. Amanda reports she has done generally well with intermittent spot dosing of Lasix in the past but no regular need for diuretics Slight JVD above the clavicle, some pedal edema and some crackles in the bases today. Net fluid balance -521 cc overall Spot dose Lasix 20 L IV x 1 Atrial fibrillation Continue Eliquis Rate controlled Continue metoprolol 25mg AM/HS Type II DM Goal BSG [id number] BSG adequately controlled Continue SSI CF 20/CR 10 DVT prophylaxis: Anticoagulated (2) Acute bronchitis: (3) Acute hypoxemic respiratory failure: (4) Atrial fibrillation: (5) Diabetes: (6) Morbid obesity: Admission and Anticipated Discharge Date Admission Date: August 29, 2025 Subjective Cough similar to prior, coughing up greenish sputum similar color to prior. No fevers or chills. No urinary symptoms, has had some leaking at her catheter site. No abdominal pain. Breathing overall improved from when she came in, but has not yet returned to normal. Attempted to wean from 2 L today however did not tolerate earlier in the morning. Lungs slightly coarse, legs with mild ankle edema today bilaterally. Physical Exam Physical Exam: General: A&Ox3. NAD. Cooperative. HEENT: Atraumatic, normocephalic. Vision and hearing grossly intact Pulm: Diffusely slightly coarse in the upper [place], diminished with some crackles in the lower val[place].. Symmetrical chest rise. No increased work of breathing. No respiratory distress. Cardiac: RRR, -mrg. Radial pulses intact and symmetrical. Abdominal: Nontender, nondistended, soft. BS present. Extremities: Bilateral pedal edema Results & Data Results & Data Vital Signs (Past 12 Hours) Vital Signs Temp Pulse Pulse Resp BP BP Pulse Ox 09/01/25 11:54 36.6 C 82 16 135/58 L 98 09/01/25 08:00 09/01/25 07:57 36.4 C L 74 16 119/77 92 09/01/25 07:17 60 09/01/25 03:56 36.2 C L 63 12 114/71 99 09/01/25 02:39 75 O2 Del Method O2 Flow Rate 09/01/25 11:54 Nasal Cannula 2 09/01/25 08:00 Nasal Cannula 2 09/01/25 07:57 Nasal Cannula 2 09/01/25 07:17 09/01/25 03:56 Nasal Cannula 2 09/01/25 02:39 PG Care Time/CCT Total # of Minutes Spent Total Time Spent with Patient: Total time spent is greater than 50% in coordination of care (as documented) at patient's floor/unit and/or counseling patient: Coding Level of Care Code 14804 SUB INP/OBS CARE 3/50MIN Diagnoses Catheter-associated urinary tract infection T83.511A; N39.0 Acute bronchitis J20.9 Acute hypoxemic respiratory failure J96.01 Atrial fibrillation I48.91 Atrial fibrillation type: unspecified Diabetes E11.9 Morbid obesity E66.01 (4) Atrial fibrillation Atrial fibrillation type: unspecified Qualified Code(s): I48.91 - Unspecified atrial fibrillation
[2025-09-01] MEDS: FUROSEMIDE INJ 20 MG/2 ML VIAL IV ONE (14:19)
[2025-09-02 09:26] LABS: Anion Gap 4.0 (3-11); Blood Urea Nitrogen 16.0 mg/dl (6-23); Calcium 8.9 mg/dl (8.6-10.3); Carbon Dioxide 33.0 mmol/L (21-32); Chloride 101.0 mmol/L (98-107); Creatinine Clr Calc Pharmacy 93.5 ml/min; Glucose 113.0 mg/dl (70-99(Fasting)); Potassium 3.7 mmol/L (3.5-5.1); Sodium 138.0 mmol/L (136-145)
--- NOTE | 2025-09-02 10:10 | Hospitalist Progress Note ---
Date of Service September 02, 2025 Assessment & Plan (1) Catheter-associated urinary tract infection: Plan: 80yo bedbound F who presented with suspected CAUTI vs colonization, and AHRF suspected 2/2 bronchitis and mild HFpEF. Urinary sx resolved. Has not yet weaned to room air, diuresis started 09/01 with good output, stable Cr. Pending return to baseline O2 requirements. Acute hypoxic respiratory failure suspect due to bronchitis, HFpEF Chest x-ray without evidence of pneumonia Sputum culture with heavy mixed karen, No leukocytosis. Is on antibiotics for UTI as noted. Expanded antibiotics are not currently indicated Incentive spirometer and flutter valve encouraged Net output -1227. BP stable. Cr stable. COntinue diuresus, increased dosing to BID - Cr daily - Wean O2 goal >90%. HFpEF Last TTE 08/15/2024: LVEF 65-70% with some diastolic dysfunction. No regional wall motion abnormalities. Amanda reports she has done generally well with intermittent spot dosing of Lasix in the past but no regular need for diuretics Remains with mild JVD above the clavicle. Stable Cr on lasix. +pedal edema --> continue diuresis as noted Catheter associated UTI versus colonization Patient presented with discolored sputum and cough consistent with acute bronchitis Was noted to have some hematuria in her Osorio catheter, no other urinary symptoms no leukocytosis and afebrile. PCT negative Covered for possible catheter associated UTI, has a history of resistant organisms in the past 5 day course of cipro complete. Past cultures intermediately resistant to levo but sensitive to Cipro. Enterococcal cultures are resistant. Exchanged Osorio catheter. UCx with mixed colonies Atrial fibrillation Continue Eliquis Rate controlled Continue metoprolol 25mg AM/HS Type II DM Goal BSG [id number] BSG adequately controlled Continue SSI CF 20/CR 10 DVT prophylaxis: Anticoagulated (2) Acute bronchitis: (3) Acute hypoxemic respiratory failure: (4) Atrial fibrillation: (5) Diabetes: (6) Morbid obesity: Admission and Anticipated Discharge Date Admission Date: August 29, 2025 Subjective Lungs coarse, no wheezing No fevers/chills +green sputum production Still dyspneic on conversation, not yet on room air No lightheadedness/dizziness w lasix Net output -1227cc, cr stable She does not like to use nebs as they can make her nauseus. NO wheezing Physical Exam Physical Exam: General: A&Ox3. NAD. Cooperative. HEENT: Atraumatic, normocephalic. Vision and hearing grossly intact Pulm: Diffusely slightly coarse in the upper [place], +basilar crackles. Symmetrical chest rise. No increased work of breathing. No respiratory distress. Cardiac: RRR, -mrg. Radial pulses intact and symmetrical. Abdominal: Nontender, nondistended, soft. BS present. Extremities: Bilateral pedal edema Results & Data Results & Data Vital Signs (Past 12 Hours) Vital Signs Temp Pulse Pulse Resp BP Pulse Ox O2 Del Method 09/02/25 07:47 67 09/02/25 03:10 36.4 C L 64 14 128/84 97 Nasal Cannula 09/02/25 00:01 36.4 C L 70 12 113/73 99 Nasal Cannula O2 Flow Rate 09/02/25 07:47 09/02/25 03:10 2 09/02/25 00:01 2 PG Care Time/CCT Total # of Minutes Spent Total Time Spent with Patient: Total time spent is greater than 50% in coordination of care (as documented) at patient's floor/unit and/or counseling patient: Coding Level of Care Code 84683 SUB INP/OBS CARE 3/50MIN Diagnoses Catheter-associated urinary tract infection T83.511A; N39.0 Acute bronchitis J20.9 Acute hypoxemic respiratory failure J96.01 Atrial fibrillation I48.91 Atrial fibrillation type: unspecified Diabetes E11.9 Morbid obesity E66.01 (4) Atrial fibrillation Atrial fibrillation type: unspecified Qualified Code(s): I48.91 - Unspecified atrial fibrillation
[2025-09-02] MEDS: FUROSEMIDE INJ 20 MG/2 ML VIAL IV ONE (10:47)
--- NOTE | 2025-09-02 11:47 | XRay Report ---
Technique: 2 frontal views of the chest were obtained Comparison is made to the prior examination dated 08/29/2025 Findings: There is new interstitial prominence in the right upper lobe. The heart size is within normal limits. No right pleural effusion or pneumothorax is seen. There is an unchanged small left pleural effusion versus chronic pleural thickening. There is suspected pulmonary vascular congestion. No fracture is noted. No foreign body is seen Impression: 1. Pulmonary vascular congestion and possible right upper lobe pneumonia 2. Unchanged small left pleural effusion versus chronic pleural thickening ACT 112: Positive. There are findings on this exam that require communication between the performing entity and the patient following Patient Test Result Information Act ([place] ACT 112) guidelines. Electronically signed by Josue Dill 09-02-2025 11:47 AM
[2025-09-02] MEDS: FUROSEMIDE 40 MG/4 ML VIAL IV SCH (16:52)
[2025-09-03 07:05] LABS: Hematocrit (blood only) 32.8 % (37.0-47.0); Hemoglobin 9.9 g/dL (12.0-16.0); Immature Granulocytes # (auto) 0.09 K/uL (0.01-0.20); Immature Granulocytes % (auto) 1.1 %; Mean Corpuscular Hemoglobin 26.8 pg (25.0-34.0); Mean Corpuscular Volume 88.6 fL (80.0-100.0); Platelet Count 278 K/uL (130-400); RDW Standard Deviation 54.3 fL (36.4-46.3); Red Blood Count 3.70 M/uL (4.20-5.40); White Blood Count 8.10 K/ul (4.8-10.8)
[2025-09-03 07:33] LABS: Anion Gap 5.0 (3-11); Blood Urea Nitrogen 19.0 mg/dl (6-23); Calcium 8.6 mg/dl (8.6-10.3); Carbon Dioxide 34.0 mmol/L (21-32); Chloride 100.0 mmol/L (98-107); Creatinine Clr Calc Pharmacy 71.9 ml/min; Glucose 118.0 mg/dl (70-99(Fasting)); Potassium 3.8 mmol/L (3.5-5.1); Sodium 139.0 mmol/L (136-145)
--- NOTE | 2025-09-03 09:46 | Discharge Summary ---
Discharge Summary Date of Service September 03, 2025 Principal Dx & Hospital Course #1 = Principal Diagnosis (1) Catheter-associated urinary tract infection: Treated for 6 days with IV Cipro. Urine culture is nondiagnostic. Urinary catheter has been changed (2) Acute bronchitis: Present clinically. Treated while hospitalized with intravenous Cipro and DuoNebs. Now resolved. Sputum culture is nondiagnostic (3) Acute hypoxemic respiratory failure: Due to bronchitis. Now resolved. Oxygen has been weaned off (4) Atrial fibrillation: Telemetry while hospitalized. Continue Eliquis. Rate control measures (5) Diabetes: Type II. ADA diet. Sliding scale coverage (6) Morbid obesity: BMI greater than 40. Supportive care. Plan Discharge back to [facility] today, September 03 Admission HPI Per Admitting Provider 80-year-old female with chronic indwelling Osorio catheter from a local personal- care facility who is bedbound. She has a cough occasionally productive of discolored sputum and has noticed some hematuria in her Osorio catheter. She came to the ED for evaluation. Urine analysis reveals what appears to be a significant number of bacteria. Chest x-ray is negative for acute pneumonia but symptomatically and on clinical examination she has acute bronchitis. She was started on intravenous Cipro in the ED and urine culture was obtained. Sputum culture has been ordered. She noticed some hematuria in the Osorio catheter. She denies hemoptysis. No rigors or documented fever. She denies chest pain. She is admitted for further evaluation and treatment Discharge Exam General-alert and oriented x3, no fever, no chills HEENT-head atraumatic and normocephalic, pupils equal and reactive to light, extraocular muscles intact Neck-no lymphadenopathy or thyromegaly, trachea midline Chest-midline rhonchi has resolved has resolved has resolved. No wheezing. No inspiratory rales. Cardiac-irregularly irregular rhythm. Normal S1 and S2 Abdomen-normal bowel sounds, no hepatosplenomegaly GUchronic indwelling Osorio catheter in place. Gross hematuria has resolved Extremities-no cyanosis, clubbing, or edema Neuro-cranial nerves II through XII intact, motor and sensory function within normal limits, strength symmetrical with generalized weakness, no focal deficits Psych-normal affect, normal mood Discharge Plan Discharge Items Patient Disposition: Personal Usp Reason For Visit: RECURRENT CAUTI, ACUTE BRONCHITIS Discharge Diagnosis: Recurrent gouty, acute bronchitis, acute hypoxic respiratory failure Condition on Discharge: Good Activity: Resume your previous activity Non-emergency contact: Primary Care Provider Call non-emergency contact if: your symptoms worsen Follow-up/Referrals: Pavan Mckeon MD [Primary Care Provider] - Diet: Carb Consistent or DM2 and Heart Healthy Addtl Attending Provider Instructions: All medications remain the same. See primary care provider soon as possible Pending Studies at Discharge: No Stand-Alone Forms: My [employer], Smoking Cessation Skilled Items Patient informed of condition?: Yes DNR: Yes Discharge Level of Care: Other Communicable Disease: No Discharge Prognosis: Stable Lines: None Urinary Catheter: Yes Medications and DC Order Prescriptions: Continued Gemtesa 75 mg tablet 75 mg PO DAILY Qty: 30 2RF atorvastatin 80 mg tablet 80 mg PO HS acetaminophen [Tylenol Extra Strength] 500 mg Tablet 500 mg PO Q6H MDD 3gmAPAP/24hrs PRN (Reason: Fever Or Pain) Eliquis 5 mg tablet 5 mg PO AMHS docusate sodium [Colace] 100 mg Capsule 200 mg PO HS sennosides [senna] 8.6 mg Tablet 17.2 mg PO HS PRN (Reason: Constipation) metoprolol succinate 25 mg Tablet Extended Release 24 Hr 25 mg PO AMHS Qty: 60 0RF spironolactone 25 mg tablet 25 mg PO QAM methenamine hippurate 1 gram tablet 1 g PO BID folic acid 1 mg Tablet 1 mg PO QAM mirtazapine 7.5 mg tablet 7.5 mg PO BID Rx Instructions: Take w/ 15mg to equal 22.5mg by mouth twice daily miconazole nitrate [Desenex] 2 % powder 1 applic EXT DAILY PRN (Reason: rash) cyanocobalamin (vitamin B-12) 500 mcg Tablet 1,000 mcg PO QAM Qty: 60 0RF meclizine 25 mg Tablet 25 mg PO BID Qty: 60 0RF mirtazapine 15 mg tablet 15 mg PO BID Qty: 30 0RF Rx Instructions: Take w/ 7.5mg to equal 22.5mg by mouth twice daily oxycodone 5 mg Tablet 5 mg PO Q4H PRN (Reason: pain) Qty: 10 0RF oxybutynin chloride 5 mg tablet 5 mg PO Q8H PRN (Reason: Bladder Spasms) ferrous sulfate 325 mg (65 mg iron) Tablet,Delayed Release (Dr/Ec) 325 mg PO Q OTHER DAY Patient Comments: in am ascorbic acid (vitamin C) [Vitamin C] 500 mg Tablet 500 mg PO BID zinc oxide 20 % Ointment 1 applic TOPICAL BID cranberry extract [Cranberry Concentrate] 500 mg Capsule 500 mg PO QAM Rx Instructions: administer with meals Saccharomyces boulardii [Florastor] 250 mg Capsule 250 mg PO QAM diclofenac sodium [Voltaren Arthritis Pain] 1 % gel 2 g EXT QID polyethylene glycol 3350 [Miralax] 17 gram Powder In Packet 17 g PO DAILY Qty: 0 0RF Discharge Orders: Discharge Order (Routine); Ordered 09/03/25 Ordered By: Demetrio Law Admission Data Admit Date/Time: 08/29/25 14:00 Attending Provider: Demetrio Law Admit Provider: Demetrio Law Primary Care Provider: Pavan Mckeon Other Providers: Demetrio Law Hospital Stay Data Consultations 08/29/25 13:11 ED Decision to Admit Stat Pending Results Patient Have Any Pending Studies at Discharge: No Discharge Instructions Given to Patient (Per Discharging Provider) All medications remain the same. See primary care provider soon as possible Total Time Total Time Spent Total Time Spent (In Minutes): 45 minutes. Total time included patient exam, discharge planning, medication reconciliation, and communication with other providers. Coding Level of Care Code 59895 INP/OBS DISCH >30 MIN Diagnoses Catheter-associated urinary tract infection T83.511A; N39.0 Acute bronchitis J20.9 Acute hypoxemic respiratory failure J96.01 Atrial fibrillation I48.91 Atrial fibrillation type: unspecified Diabetes E11.9 Morbid obesity E66.01
[2025-09-03 12:28] VITALS: RESP 20; TEMP 98.4; O2SAT 93
[2025-09-03 15:38] VITALS: BP 130/71; PULSE 89
== END 2025-09-03 17:06 | disposition home or self-care (01) | DRG 698 ==
LOC: ED 10:00 → SUATTDRO 14:00 → 2N 14:00